=== PATIENT | male | born 1985 | race Caucasian/White ===

== ENCOUNTER 2017-04-14 20:55 | Emergency (ER) | payer SELFPAY ==
[2017-04-14] MEDS ORDERED: ROCEPHIN 1 Gm-D5w 50 ml Bag** 1 G/50 ML IVPB IV STA (21:21)
[2017-04-14] MEDS ORDERED: Zofran 4 MG/2 ML VIAL IV ONE (21:21)
[2017-04-14] MEDS ORDERED: Sodium Chloride 0.9% 1000 ML 1,000 ML ONE ×2 (21:39→22:58)
[2017-04-14] MEDS ORDERED: ROCEPHIN 1 Gm-D5w 50 ml Bag** 1 G/50 ML IVPB IV ONE (21:39)
[2017-04-14] MEDS ORDERED: Zofran 4 MG/2 ML VIAL ONE (21:39)
[2017-04-14 21:42] LABS: Lactic Acid 3.1 (0.4-2.0)
[2017-04-14] MEDS: Sodium Chloride 0.9% 1000 ML 1,000 ML IV SCH ×2 (21:43→22:59)
[2017-04-14 21:52] LABS: Mean Cell Volume 84.5 fl (78-100); Mean Platelet Volume 9.1 fl (6-9.5); Platelet Count 491 K/mm3 (150-450); Red Blood Count 5.63 M/mm3 (4.1-5.6); Red Cell Distribution Width 12.3 % (11.5-14.0); White Blood Count 23.2 K/mm3 (4.0-10.5)
[2017-04-14 21:54] LABS: INR 0.98 (0.8-3.0); PROTIME 11.1 SECONDS (8.83-12.87)
[2017-04-14 21:56] LABS: PTT 27.7 SECONDS (24.1-36.1)
[2017-04-14 22:00] LABS: A-aADO2 34; ARTERIAL BLD GAS O2 SATURATION 95.4 % (95-100); ARTERIAL BLOOD GAS BASE EXCESS 2.6 (-2.0-2.0); ARTERIAL BLOOD GAS FIO2 21 %; ARTERIAL BLOOD GAS PO2 69 mmHg (75-100); ARTERIAL BLOOD GAS pH 7.46 (7.35-7.45)
[2017-04-14] MEDS ORDERED: BABY ASPIRIN 81 MG CHEW PO ONE (22:13)
[2017-04-14] MEDS ORDERED: Nitrostat 0.4 MG (ED) SL ONE ×2 (22:13→22:32)
[2017-04-14 22:14] LABS: ALBUMIN 4.5 g/dL (3.4-5.0); ANION GAP 24.8 MEQ/L (5-15); BILIRUBIN,TOTAL 1.3 mg/dL (0.2-1.0); Carbon Dioxide 25.8 mEq/L (21-32); MAGNESIUM 1.6 mg/dL (1.8-2.4); Potassium 3.7 mEq/L (3.5-5.1)
[2017-04-14 22:19] LABS: ETHYL ALCOHOL < 0.010 % (0.00-0.01); TROPONIN < 0.017 ng/ml (0.000-0.056)
[2017-04-14] MEDS ORDERED: BABY ASPIRIN 81 MG CHEW ONE (22:33)
[2017-04-14 23:03] LABS: BAND 7 % (0.0-2.0); Eosinophil 1 % (0.00-3.0); Platelet Estimate NORMAL (NORMAL); Total Cells Counted 100
[2017-04-15] MEDS ORDERED: Sodium Chloride 0.9% 1000 ML 1,000 ML IV STA ×2 (00:17→03:44)
[2017-04-15] MEDS ORDERED: Magnesium 1 Gm / 100 Ml D5W*** 100 ML IV ONE ×2 (00:18→00:35)
--- NOTE | 2017-04-15 00:30 | ERPHSYRPT ---
- History of Present Illness Time Seen by Provider: 04/14/17 21:12 Source: patient, other (MOTHER OF PT'S CHILDREN) Exam Limitations: no limitations Patient Subjective Stated Complaint: Pt sts used meth 2 days ago, uses every once in awhile. Sts vomiting since this morning with two episodes of diarrhea. Hx of similar in the past when using meth. Famiy concerned because he is a type 1 diabetic. Last FSBS at home 177 mg/dL. Triage Nursing Assessment: Pt alert, oriented, answers questions appropriately. Pt vomiting yellow bile. Pt skin pale, warm to touch, dry. Resps non- labored. Pt holding abd. Physician History: SINCE THIS AM PT HAD VOMITING MULTIPLE TIMES, DIARRHEA X2 WITHOUT BLOOD, CHEST PAIN, SHORTNESS OF AIR, SUBJECTIVE FEVER, CHILLS, DIAPHORESIS AND DECREASED URINARY OUTPUT. PT ADMITS TO USING METHAMPHETAMINE 2 DAYS AGO. Allergies/Adverse Reactions: No Known Drug Allergies Allergy (Verified 10/09/16 22:32) Hx Tetanus, Diphtheria Vaccination/Date Given: Yes Hx Influenza Vaccination/Date Given: No Hx Pneumococcal Vaccination/Date Given: No Immunizations Up to Date: Yes - Review of Systems Constitutional: Fever, Chills Respiratory: Dyspnea Cardiac: Chest Pain Abdominal/Gastrointestinal: Vomiting, Diarrhea Genitourinary Symptoms: Other (DECREASED URINARY OUTPUT) Endocrine: Excessive Sweating All Other Systems: Reviewed and Negative - Past Medical History Pertinent Past Medical History: Yes Neurological History: No Pertinent History ENT History: No Pertinent History Cardiac History: No Pertinent History Respiratory History: No Pertinent History Endocrine Medical History: Diabetes Type I Musculoskeletal History: No Pertinent History GI Medical History: No Pertinent History History: No Pertinent History Psycho-Social History: Depression Male Reproductive Disorders: No Pertinent History - Past Surgical History Past Surgical History: No Neuro Surgical History: No Pertinent History Cardiac: No Pertinent History Respiratory: No Pertinent History Gastrointestinal: No Pertinent History Genitourinary: No Pertinent History Musculoskeletal: No Pertinent History Male Surgical History: No Pertinent History Other Surgical History: pt just shook head yes or no when questions asked - Social History Smoking Status: Never smoker Exposure to second hand smoke: No Drug Use: marijuana, methamphetamines Patient Lives Alone: No - Nursing Vital Signs Nursing Vital Signs: Initial Vital Signs Temperature 97.7 F 04/14/17 21:03 Pulse Rate 113 H 04/14/17 21:03 Respiratory Rate 16 04/14/17 21:03 Blood Pressure 116/38 04/14/17 21:03 O2 Sat by Pulse Oximetry 99 04/14/17 21:03 Pain Scale Pain Intensity 5 - Physical Exam General Appearance: lethargy Eye Exam: PERRL/EOMI Ears, Nose, Throat Exam: TMs normal, dry mucous membranes, pharyngeal erythema Neck Exam: normal inspection Respiratory Exam: lungs clear Cardiovascular Exam: tachycardia Gastrointestinal/Abdomen Exam: soft, other (B.S. MILDLY HYPERACTIVE AND NORMOTONIC) Back Exam: normal inspection Extremity Exam: No pedal edema Neurologic Exam: cooperative, other (LETHARGIC) Skin Exam: warm, dry SpO2 Interpretation: normal SpO2: 97 Oxygen Delivery: Room Air - Course Nursing assessment & vital signs reviewed: Yes EKG Interpreted by Me: RATE ([id number]), Sinus Tach, NORMAL AXIS, NORMAL INTERVALS Ordered Tests: Active Orders 24 hr Category Date Time Status Accucheck STAT Care 04/14/17 21:21 Active Automation Machine Operator STAT Care 04/14/17 21:22 Active EKG-ER Only STAT Care 04/14/17 21:21 Active IV Insertion STAT Care 04/14/17 21:21 Active Oxygen-ED Only NASAL CANNULA 2 lpm Care 04/14/17 21:21 Active Pulse Oximetry (ED) STAT Care 04/14/17 21:21 Active AMYLASE Stat Lab 04/14/17 21:42 Completed ARTERIAL BLOOD GASES Stat Lab 04/14/17 21:54 Completed BLOOD CULTURE Stat Lab 04/14/17 21:42 Received CBC Stat Lab 04/15/17 03:46 Received CBC W DIFF Stat Lab 04/14/17 21:30 Completed CMP Stat Lab 04/14/17 21:42 Completed CMP Stat Lab 04/15/17 02:11 Completed CULTURE, THROAT Stat Lab 04/14/17 21:41 Received ETHYL ALCOHOL Routine Lab 04/14/17 21:30 Completed LIPASE Stat Lab 04/14/17 21:42 Completed Lactic Acid Stat Lab 04/14/17 21:38 Completed Lactic Acid Stat Lab 04/14/17 23:41 Completed MAGNESIUM Stat Lab 04/14/17 21:42 Completed MAGNESIUM Stat Lab 04/15/17 02:11 Completed Manual Differential NC Stat Lab 04/14/17 21:30 Completed [place] Screen Stat Lab 04/14/17 21:30 Completed PROTIME WITH INR Stat Lab 04/14/17 21:30 Completed PTT Stat Lab 04/14/17 21:30 Completed STREP SCREEN-BETA A Stat Lab 04/14/17 21:41 Completed TROPONIN Q3H Lab 04/14/17 21:30 Completed UA W/ MICROSCOPIC Stat Lab 04/15/17 01:06 Completed Medication Summary Generic Name Dose Route Start Last Admin Trade Name Freq PRN Reason Stop Dose Admin Sodium Chloride 1,000 mls @ 999 mls/hr 04/14/17 21:30 04/14/17 22:59 Sodium Chloride 0.9% 1000 Ml IV 04/14/17 23:30 999 mls/hr .Q1H1M XIN Administration Sodium Chloride 1,000 mls @ 999 mls/hr 04/15/17 03:44 04/15/17 03:48 Sodium Chloride 0.9% 1000 Ml IV 04/15/17 04:44 999 mls/hr .Q1H1M STA Administration Discontinued Medications Generic Name Dose Route Start Last Admin Trade Name Kelsie PRN Reason Stop Dose Admin Aspirin 324 mg 04/14/17 22:13 04/14/17 22:33 Baby Aspirin 81 Mg Chew PO 04/14/17 22:14 324 mg STAT ONE Administration Aspirin Confirm 04/14/17 22:33 Baby Aspirin 81 Mg Chew Administered 04/14/17 22:34 Dose 324 mg .ROUTE .STK-MED ONE Ceftriaxone Sodium/Dextrose 1 g in 50 mls @ 100 mls/hr 04/14/17 21:21 21:43 Rocephin 1 Gm-D5w 50 Ml Bag IV 04/14/17 21:50 100 mls/hr STAT STA Administration Ceftriaxone Sodium/Dextrose Confirm 04/14/17 21:39 Rocephin 1 Gm-D5w 50 Ml Bag Administered 04/14/17 21:40 Dose 1 g in 50 mls @ ud IV .STK-MED ONE Magnesium Sulfate/Dextrose 100 mls @ 200 mls/hr 04/15/17 00:18 04/15/17 00:36 Magnesium 1 Gm / 100 Ml D5w IV 04/15/17 00:47 200 mls/hr STAT ONE Administration Sodium Chloride 1,000 mls @ 999 mls/hr 04/15/17 00:17 04/15/17 00:37 Sodium Chloride 0.9% 1000 Ml IV 04/15/17 01:17 999 mls/hr .Q1H1M STA Administration Magnesium Sulfate/Dextrose Confirm 04/15/17 00:35 Magnesium 1 Gm / 100 Ml D5w Administered 04/15/17 00:36 Dose 100 mls @ ud IV .STK-MED ONE Nitroglycerin 0.4 mg 04/14/17 22:13 04/14/17 22:33 Nitrostat 0.4 Mg (Ed) SL 04/14/17 22:14 0.4 mg STAT ONE Administration Nitroglycerin Confirm 04/14/17 22:32 Nitrostat 0.4 Mg (Ed) Administered 04/14/17 22:33 Dose 0.4 mg SL .STK-MED ONE Ondansetron HCl 4 mg 04/14/17 21:21 04/14/17 21:43 Zofran 4 Mg/2 Ml Vial IV 04/14/17 21:22 4 mg STAT ONE Administration Ondansetron HCl Confirm 04/14/17 21:39 Zofran 4 Mg/2 Ml Vial Administered 04/14/17 21:40 Dose 4 mg .ROUTE .STK-MED ONE Ondansetron HCl 4 mg 04/15/17 03:44 04/15/17 03:48 Zofran 4 Mg/2 Ml Vial IV 04/15/17 03:45 4 mg STAT ONE Administration Ondansetron HCl Confirm 04/15/17 03:46 Zofran 4 Mg/2 Ml Vial Administered 04/15/17 03:47 Dose 4 mg .ROUTE .STK-MED ONE Promethazine HCl 12.5 mg 04/15/17 00:53 04/15/17 00:59 Phenergan 25 Mg Inj IV 04/15/17 00:54 12.5 mg STAT ONE Administration Promethazine HCl Confirm 04/15/17 00:57 Phenergan 25 Mg Inj Administered 04/15/17 00:58 Dose 25 mg .ROUTE .STK-MED ONE Lab/Rad Data: Laboratory Result Diagrams 04/14/17 21:30 04/15/17 02:11 Laboratory Results 04/15/17 04/15/17 04/15/17 Range/Units 02:11 01:06 00:32 WBC (4.0-10.5) K/mm3 RBC (4.1-5.6) M/mm3 Hgb (12.5-18.0) gm/dl Hct (42-50) % MCV (78-100) fl MCH (26-32) pg MCHC (32-36) g/dl RDW (11.5-14.0) % Plt Count (150-450) K/mm3 MPV (6-9.5) fl Segmented Neutrophils (36.-66.) % Band Neutrophils (0.0-2.0) % Lymphocytes (Manual) (24-44) % Monocytes (Manual) (0.0-12.0) % Eosinophils (Manual) (0.00-3.0) % Differential Comment Platelet Estimate (NORMAL) INR (0.8-3.0) APTT (24.1-36.1) SECONDS Puncture Site pCO2 (35-45) mmHg pO2 (75-100) mmHg Base Excess (-2.0-2.0) O2 Saturation (94-100) g/dF ABG pH (7.35-7.45) ABG HCO3 (22-28) ABG O2 Sat (Measured) (95-100) % Arnaldo Test A-a Gradient a/A Ratio Hemoglobin Carboxyhemoglobin (0.0-6.9) % THgb Methemoglobin (1.4-1.5) % Temperature C POC O2 Flow Rate % Sodium 140 (136-145) mEq/L Potassium 3.6 (3.5-5.1) mEq/L Chloride 99 (98-107) mEq/L Carbon Dioxide 29.3 (21-32) mEq/L Anion Gap 15.1 H (5-15) MEQ/L BUN 22 H (9-20) mg/dL Creatinine 1.37 H (0.55-1.30) mg/dl Estimated GFR > 60 ML/MIN Glucose 179 H (70-110) MG/DL Hemoglobin A1c (4.5-6.2) Lactic Acid 1.9 (0.4-2.0) Calcium 8.3 L (8.5-10.1) mg/dL Magnesium 1.8 (1.8-2.4) mg/dL Total Bilirubin 0.70 (0.2-1.0) mg/dL AST 26 (15-37) U/L ALT 28 (12-78) U/L Alkaline Phosphatase 105 (46-116) U/L Troponin I (0.000-0.056) ng/ml Serum Total Protein 7.1 (6.4-8.2) gm/dL Albumin 3.5 (3.4-5.0) g/dL Amylase (25-115) U/L Lipase (73-393) U/L Ur Collection Type VOID Urine Color DARK YELLOW (YELLOW) Urine Appearance CLEAR (CLEAR) Urine pH 5.0 (5-6) Ur Specific [place] 1.025 (1.005-1.025) Urine Protein 100 (Negative) Urine Ketones LARGE (NEGATIVE) Urine Blood 250 (0-5) Tomas/ul Urine Nitrite NEGATIVE (NEGATIVE) Urine Bilirubin NEGATIVE (NEGATIVE) Urine Urobilinogen NORMAL (0-1) mg/dL Ur Leukocyte Esterase NEGATIVE (NEGATIVE) Urine Microscopic RBC 5-10 (0-2) /HPF Urine Microscopic WBC 0-2 (0-5) /HPF Ur Epithelial Cells RARE (FEW) /HPF Urine Bacteria FEW (NEGATIVE) /HPF Hyaline Casts 2-5 (0-2) /LPF Urine Mucus MANY (NEGATIVE) /HPF Urine Glucose 250 (NEGATIVE) mg/dL Urine Opiates Level (NEGATIVE) Ur Methadone (NEGATIVE) Urine Barbiturates (NEGATIVE) Ur Phencyclidine (PCP) (NEGATIVE) Urine Amphetamine (NEGATIVE) U Benzodiazepine Level (NEGATIVE) Urine Cocaine (NEGATIVE) Urine Marijuana (THC) (NEGATIVE) Ethyl Alcohol (0.00-0.01) % Monoscreen (Negative) Influenza Type A Ag (NEGATIVE) Influenza Type B Ag (NEGATIVE) RSV (PCR) (Negative) Streptococcus Screen (Negative) Specimen Received 04/15/17 0100 04/14/17 04/14/17 04/14/17 Range/Units 21:54 21:42 21:41 WBC (4.0-10.5) K/mm3 RBC (4.1-5.6) M/mm3 Hgb (12.5-18.0) gm/dl Hct (42-50) % MCV (78-100) fl MCH (26-32) pg MCHC (32-36) g/dl RDW (11.5-14.0) % Plt Count (150-450) K/mm3 MPV (6-9.5) fl Segmented Neutrophils (36.-66.) % Band Neutrophils (0.0-2.0) % Lymphocytes (Manual) (24-44) % Monocytes (Manual) (0.0-12.0) % Eosinophils (Manual) (0.00-3.0) % Differential Comment Platelet Estimate (NORMAL) INR (0.8-3.0) APTT (24.1-36.1) SECONDS Puncture Site RIGHT BRACHIAL pCO2 37 (35-45) mmHg pO2 69 L (75-100) mmHg Base Excess 2.6 H (-2.0-2.0) O2 Saturation 93.9 L (94-100) g/dF ABG pH 7.46 H (7.35-7.45) ABG HCO3 26.3 (22-28) ABG O2 Sat (Measured) 95.4 (95-100) % Arnaldo Test NOT APPLICABLE A-a Gradient 34 a/A Ratio 0.67 Hemoglobin 16.3 Carboxyhemoglobin 1.1 (0.0-6.9) % THgb Methemoglobin 0.5 L (1.4-1.5) % Temperature 37.0 C POC O2 Flow Rate 21 % Sodium 137 (136-145) mEq/L Potassium 3.9 3.7 (3.5-5.1) mEq/L Chloride 90 L (98-107) mEq/L Carbon Dioxide 25.8 (21-32) mEq/L Anion Gap 24.8 H (5-15) MEQ/L BUN 24 H (9-20) mg/dL Creatinine 1.72 H (0.55-1.30) mg/dl Estimated GFR 50 ML/MIN Glucose 200 H (70-110) MG/DL Hemoglobin A1c (4.5-6.2) Lactic Acid (0.4-2.0) Calcium 10.1 (8.5-10.1) mg/dL Magnesium 1.6 L (1.8-2.4) mg/dL Total Bilirubin 1.30 H (0.2-1.0) mg/dL AST 33 (15-37) U/L ALT 38 (12-78) U/L Alkaline Phosphatase 141 H (46-116) U/L Troponin I (0.000-0.056) ng/ml Serum Total Protein 9.0 H (6.4-8.2) gm/dL Albumin 4.5 (3.4-5.0) g/dL Amylase 65 (25-115) U/L Lipase 42 L (73-393) U/L Ur Collection Type Urine Color (YELLOW) Urine Appearance (CLEAR) Urine pH (5-6) Ur Specific [place] (1.005-1.025) Urine Protein (Negative) Urine Ketones (NEGATIVE) Urine Blood (0-5) Tomas/ul Urine Nitrite (NEGATIVE) Urine Bilirubin (NEGATIVE) Urine Urobilinogen (0-1) mg/dL Ur Leukocyte Esterase (NEGATIVE) Urine Microscopic RBC (0-2) /HPF Urine Microscopic WBC (0-5) /HPF Ur Epithelial Cells (FEW) /HPF Urine Bacteria (NEGATIVE) /HPF Hyaline Casts (0-2) /LPF Urine Mucus (NEGATIVE) /HPF Urine Glucose (NEGATIVE) mg/dL Urine Opiates Level (NEGATIVE) Ur Methadone (NEGATIVE) Urine Barbiturates (NEGATIVE) Ur Phencyclidine (PCP) (NEGATIVE) Urine Amphetamine (NEGATIVE) U Benzodiazepine Level (NEGATIVE) Urine Cocaine (NEGATIVE) Urine Marijuana (THC) (NEGATIVE) Ethyl Alcohol (0.00-0.01) % Monoscreen (Negative) Influenza Type A Ag NEGATIVE (NEGATIVE) Influenza Type B Ag NEGATIVE (NEGATIVE) RSV (PCR) NEGATIVE (Negative) Streptococcus Screen (Negative) Specimen Received 04/14/17 04/14/17 04/14/17 Range/Units 21:41 21:38 21:30 WBC (4.0-10.5) K/mm3 RBC (4.1-5.6) M/mm3 Hgb (12.5-18.0) gm/dl Hct (42-50) % MCV (78-100) fl MCH (26-32) pg MCHC (32-36) g/dl RDW (11.5-14.0) % Plt Count (150-450) K/mm3 MPV (6-9.5) fl Segmented Neutrophils (36.-66.) % Band Neutrophils (0.0-2.0) % Lymphocytes (Manual) (24-44) % Monocytes (Manual) (0.0-12.0) % Eosinophils (Manual) (0.00-3.0) % Differential Comment Platelet Estimate (NORMAL) INR (0.8-3.0) APTT (24.1-36.1) SECONDS Puncture Site pCO2 (35-45) mmHg pO2 (75-100) mmHg Base Excess (-2.0-2.0) O2 Saturation (94-100) g/dF ABG pH (7.35-7.45) ABG HCO3 (22-28) ABG O2 Sat (Measured) (95-100) % Arnaldo Test A-a Gradient a/A Ratio Hemoglobin Carboxyhemoglobin (0.0-6.9) % THgb Methemoglobin (1.4-1.5) % Temperature C POC O2 Flow Rate % Sodium (136-145) mEq/L Potassium (3.5-5.1) mEq/L Chloride (98-107) mEq/L Carbon Dioxide (21-32) mEq/L Anion Gap (5-15) MEQ/L BUN (9-20) mg/dL Creatinine (0.55-1.30) mg/dl Estimated GFR ML/MIN Glucose (70-110) MG/DL Hemoglobin A1c 9.8 H (4.5-6.2) Lactic Acid 3.1 H (0.4-2.0) Calcium (8.5-10.1) mg/dL Magnesium (1.8-2.4) mg/dL Total Bilirubin (0.2-1.0) mg/dL AST (15-37) U/L ALT (12-78) U/L Alkaline Phosphatase (46-116) U/L Troponin I (0.000-0.056) ng/ml Serum Total Protein (6.4-8.2) gm/dL Albumin (3.4-5.0) g/dL Amylase (25-115) U/L Lipase (73-393) U/L Ur Collection Type Urine Color (YELLOW) Urine Appearance (CLEAR) Urine pH (5-6) Ur Specific [place] (1.005-1.025) Urine Protein (Negative) Urine Ketones (NEGATIVE) Urine Blood (0-5) Tomas/ul Urine Nitrite (NEGATIVE) Urine Bilirubin (NEGATIVE) Urine Urobilinogen (0-1) mg/dL Ur Leukocyte Esterase (NEGATIVE) Urine Microscopic RBC (0-2) /HPF Urine Microscopic WBC (0-5) /HPF Ur Epithelial Cells (FEW) /HPF Urine Bacteria (NEGATIVE) /HPF Hyaline Casts (0-2) /LPF Urine Mucus (NEGATIVE) /HPF Urine Glucose (NEGATIVE) mg/dL Urine Opiates Level (NEGATIVE) Ur Methadone (NEGATIVE) Urine Barbiturates (NEGATIVE) Ur Phencyclidine (PCP) (NEGATIVE) Urine Amphetamine (NEGATIVE) U Benzodiazepine Level (NEGATIVE) Urine Cocaine (NEGATIVE) Urine Marijuana (THC) (NEGATIVE) Ethyl Alcohol (0.00-0.01) % Monoscreen (Negative) Influenza Type A Ag (NEGATIVE) Influenza Type B Ag (NEGATIVE) RSV (PCR) (Negative) Streptococcus Screen NEGATIVE (Negative) Specimen Received 04/14/17 04/14/17 04/14/17 Range/Units 21:30 21:30 21:30 WBC (4.0-10.5) K/mm3 RBC (4.1-5.6) M/mm3 Hgb (12.5-18.0) gm/dl Hct (42-50) % MCV (78-100) fl MCH (26-32) pg MCHC (32-36) g/dl RDW (11.5-14.0) % Plt Count (150-450) K/mm3 MPV (6-9.5) fl Segmented Neutrophils (36.-66.) % Band Neutrophils (0.0-2.0) % Lymphocytes (Manual) (24-44) % Monocytes (Manual) (0.0-12.0) % Eosinophils (Manual) (0.00-3.0) % Differential Comment Platelet Estimate (NORMAL) INR 0.98 (0.8-3.0) APTT 27.7 (24.1-36.1) SECONDS Puncture Site pCO2 (35-45) mmHg pO2 (75-100) mmHg Base Excess (-2.0-2.0) O2 Saturation (94-100) g/dF ABG pH (7.35-7.45) ABG HCO3 (22-28) ABG O2 Sat (Measured) (95-100) % Arnaldo Test A-a Gradient a/A Ratio Hemoglobin Carboxyhemoglobin (0.0-6.9) % THgb Methemoglobin (1.4-1.5) % Temperature C POC O2 Flow Rate % Sodium (136-145) mEq/L Potassium (3.5-5.1) mEq/L Chloride (98-107) mEq/L Carbon Dioxide (21-32) mEq/L Anion Gap (5-15) MEQ/L BUN (9-20) mg/dL Creatinine (0.55-1.30) mg/dl Estimated GFR ML/MIN Glucose (70-110) MG/DL Hemoglobin A1c (4.5-6.2) Lactic Acid (0.4-2.0) Calcium (8.5-10.1) mg/dL Magnesium (1.8-2.4) mg/dL Total Bilirubin (0.2-1.0) mg/dL AST (15-37) U/L ALT (12-78) U/L Alkaline Phosphatase (46-116) U/L Troponin I < 0.017 (0.000-0.056) ng/ml Serum Total Protein (6.4-8.2) gm/dL Albumin (3.4-5.0) g/dL Amylase (25-115) U/L Lipase (73-393) U/L Ur Collection Type Urine Color (YELLOW) Urine Appearance (CLEAR) Urine pH (5-6) Ur Specific [place] (1.005-1.025) Urine Protein (Negative) Urine Ketones (NEGATIVE) Urine Blood (0-5) Tomas/ul Urine Nitrite (NEGATIVE) Urine Bilirubin (NEGATIVE) Urine Urobilinogen (0-1) mg/dL Ur Leukocyte Esterase (NEGATIVE) Urine Microscopic RBC (0-2) /HPF Urine Microscopic WBC (0-5) /HPF Ur Epithelial Cells (FEW) /HPF Urine Bacteria (NEGATIVE) /HPF Hyaline Casts (0-2) /LPF Urine Mucus (NEGATIVE) /HPF Urine Glucose (NEGATIVE) mg/dL Urine Opiates Level (NEGATIVE) Ur Methadone (NEGATIVE) Urine Barbiturates (NEGATIVE) Ur Phencyclidine (PCP) (NEGATIVE) Urine Amphetamine (NEGATIVE) U Benzodiazepine Level (NEGATIVE) Urine Cocaine (NEGATIVE) Urine Marijuana (THC) (NEGATIVE) Ethyl Alcohol < 0.010 (0.00-0.01) % Monoscreen NEGATIVE (Negative) Influenza Type A Ag (NEGATIVE) Influenza Type B Ag (NEGATIVE) RSV (PCR) (Negative) Streptococcus Screen (Negative) Specimen Received 04/14/17 04/14/17 Range/Units 21:30 01:06 WBC 23.2 H (4.0-10.5) K/mm3 RBC 5.63 H (4.1-5.6) M/mm3 Hgb 16.9 (12.5-18.0) gm/dl Hct 47.6 (42-50) % MCV 84.5 (78-100) fl MCH 30.0 (26-32) pg MCHC 35.5 (32-36) g/dl RDW 12.3 (11.5-14.0) % Plt Count 491 H (150-450) K/mm3 MPV 9.1 (6-9.5) fl Segmented Neutrophils 79 H (36.-66.) % Band Neutrophils 7 H (0.0-2.0) % Lymphocytes (Manual) 7 L (24-44) % Monocytes (Manual) 6 (0.0-12.0) % Eosinophils (Manual) 1 (0.00-3.0) % Differential Comment NORMAL Platelet Estimate NORMAL (NORMAL) INR (0.8-3.0) APTT (24.1-36.1) SECONDS Puncture Site pCO2 (35-45) mmHg pO2 (75-100) mmHg Base Excess (-2.0-2.0) O2 Saturation (94-100) g/dF ABG pH (7.35-7.45) ABG HCO3 (22-28) ABG O2 Sat (Measured) (95-100) % Arnaldo Test A-a Gradient a/A Ratio Hemoglobin Carboxyhemoglobin (0.0-6.9) % THgb Methemoglobin (1.4-1.5) % Temperature C POC O2 Flow Rate % Sodium (136-145) mEq/L Potassium (3.5-5.1) mEq/L Chloride (98-107) mEq/L Carbon Dioxide (21-32) mEq/L Anion Gap (5-15) MEQ/L BUN (9-20) mg/dL Creatinine (0.55-1.30) mg/dl Estimated GFR ML/MIN Glucose (70-110) MG/DL Hemoglobin A1c (4.5-6.2) Lactic Acid (0.4-2.0) Calcium (8.5-10.1) mg/dL Magnesium (1.8-2.4) mg/dL Total Bilirubin (0.2-1.0) mg/dL AST (15-37) U/L ALT (12-78) U/L Alkaline Phosphatase (46-116) U/L Troponin I (0.000-0.056) ng/ml Serum Total Protein (6.4-8.2) gm/dL Albumin (3.4-5.0) g/dL Amylase (25-115) U/L Lipase (73-393) U/L Ur Collection Type Urine Color (YELLOW) Urine Appearance (CLEAR) Urine pH (5-6) Ur Specific [place] (1.005-1.025) Urine Protein (Negative) Urine Ketones (NEGATIVE) Urine Blood (0-5) Tomas/ul Urine Nitrite (NEGATIVE) Urine Bilirubin (NEGATIVE) Urine Urobilinogen (0-1) mg/dL Ur Leukocyte Esterase (NEGATIVE) Urine Microscopic RBC (0-2) /HPF Urine Microscopic WBC (0-5) /HPF Ur Epithelial Cells (FEW) /HPF Urine Bacteria (NEGATIVE) /HPF Hyaline Casts (0-2) /LPF Urine Mucus (NEGATIVE) /HPF Urine Glucose (NEGATIVE) mg/dL Urine Opiates Level NEG. (NEGATIVE) Ur Methadone NEG. (NEGATIVE) Urine Barbiturates NEG. (NEGATIVE) Ur Phencyclidine (PCP) NEG. (NEGATIVE) Urine Amphetamine POS. (NEGATIVE) U Benzodiazepine Level NEG. (NEGATIVE) Urine Cocaine NEG. (NEGATIVE) Urine Marijuana (THC) POS. (NEGATIVE) Ethyl Alcohol (0.00-0.01) % Monoscreen (Negative) Influenza Type A Ag (NEGATIVE) Influenza Type B Ag (NEGATIVE) RSV (PCR) (Negative) Streptococcus Screen (Negative) Specimen Received - Departure Time of Disposition: 04:02 Departure Disposition: Home Clinical Impression: VOMITING, DIARRHEA, TACHYCARDIA, HYPOMAGNESEMIA - CORRECTED IN ER, DEHYDRATION , DM, DEPRESSION, METHAMPHETAMINE USE, MARIJUANA USE Condition: Stable Critical Care Time: No Referrals: VALENTINA ESPINO [Primary Care Provider] - Instructions: Diarrhea and Traveler's Diarrhea -- Adult, Vomiting -- Adult Additional Instructions: FOLLOW UP WITH PRIVATE DOCTOR TOMORROW. Prescriptions: Ondansetron [Zofran Odt] 4 mg PO Q4H PRN PRN #14 tab.rapdis PRN Reason: Nausea/Vomiting
[2017-04-15] MEDS ORDERED: Sodium Chloride 0.9% 1000 ML 1,000 ML ONE ×2 (00:35→03:46)
[2017-04-15] MEDS ORDERED: Phenergan 25 MG INJ IV ONE (00:53)
[2017-04-15] MEDS ORDERED: Phenergan 25 MG INJ ONE (00:57)
[2017-04-15 01:24] LABS: Bacteria FEW /HPF (NEGATIVE); Bilirubin NEGATIVE (NEGATIVE); Blood 250 Ery/ul (0-5); COMPLETE URINE MICROSCOPIC? YES; Collection Type VOID; Epithelial Cells RARE /HPF (FEW); Glucose 250 mg/dL (NEGATIVE); Leukocyte Esterase NEGATIVE (NEGATIVE); Mucus MANY /HPF (NEGATIVE); WBC 0-2 /HPF (0-5)
[2017-04-15 02:34] LABS: ALBUMIN 3.5 g/dL (3.4-5.0); ALKALINE PHOSPHATASE 105 U/L (46-116); ANION GAP 15.1 MEQ/L (5-15); BLOOD UREA NITROGEN 22 mg/dL (9-20); CHLORIDE 99 mEq/L (98-107); Carbon Dioxide 29.3 mEq/L (21-32); Glucose 179 MG/DL (70-110); MAGNESIUM 1.8 mg/dL (1.8-2.4); Potassium 3.6 mEq/L (3.5-5.1); SGOT/AST 26 U/L (15-37); SGPT/ALT 28 U/L (12-78); SODIUM 140 mEq/L (136-145); Total Protein 7.1 gm/dL (6.4-8.2)
[2017-04-15] MEDS ORDERED: Zofran 4 MG/2 ML VIAL IV ONE (03:44)
[2017-04-15] MEDS ORDERED: Zofran 4 MG/2 ML VIAL ONE (03:46)
[2017-04-15 03:55] LABS: Mean Cell Volume 85.2 fl (78-100); Mean Corpuscular Hemoglobin 29.6 pg (26-32); Mean Platelet Volume 8.8 fl (6-9.5); Platelet Count 379 K/mm3 (150-450); Red Blood Count 4.66 M/mm3 (4.1-5.6); Red Cell Distribution Width 12.2 % (11.5-14.0); White Blood Count 19.5 K/mm3 (4.0-10.5)
[2017-04-15 05:33] VITALS: BP 118/65; PULSE 98; O2SAT 98
== END 2017-04-15 05:34 | disposition home or self-care (01) ==
LOC: ED 20:55
DX: R11.10 Vomiting, unspecified (principal); R19.7 Diarrhea, unspecified; R00.0 Tachycardia, unspecified; E83.42 Hypomagnesemia; E86.0 Dehydration; E11.9 Type 2 diabetes mellitus without complications; F32.9 Major depressive disorder, single episode, unspecified; F11.90 Opioid use, unspecified, uncomplicated; F12.90 Cannabis use, unspecified, uncomplicated
CPT/HCPCS: 36000; 36415; 36600; 80053; 80307; 81000; 82150; 82375; 82803; 82962; 83036; 83605; 83690; 83735; 84484; 85025; 85027; 85610; 85730; 86308; 87040; 87070; 87430; 87631; 93005; 93041; 96360; 96361; 96365; 96374; 96375; 96376; 99284; G0481; J0696; J2405; J2550; J3475; A9270-GY

== ENCOUNTER 2017-04-15 21:19 | Observation (INO) | payer SELFPAY ==
[2017-04-15] MEDS ORDERED: Sodium Chloride 0.9% 1000 ML 1,000 ML IV STA (21:58)
[2017-04-15] MEDS ORDERED: Phenergan 25 MG INJ IV ONE (21:58)
[2017-04-15] MEDS ORDERED: Phenergan 25 MG INJ ONE (22:03)
[2017-04-15] MEDS ORDERED: Sodium Chloride 0.9% 1000 ML 1,000 ML ONE (22:03)
--- NOTE | 2017-04-15 22:06 | ERPHSYRPT ---
- History of Present Illness Time Seen by Provider: 04/15/17 21:54 Historian: patient Exam Limitations: no limitations Patient Subjective Stated Complaint: Pt was seen this ER last night. Pt seen tonight for same - vomiting, unable to keep anything down. Pt sts vomited 12+ times today. No diarrhea. Unable to get prescription filled due to no insurance. Pt has been trying to drink fluids but still vomiting. Triage Nursing Assessment: Pt alert, oriented, answers all questions appropriately. Pt ambulatory to tx room with assist per mother. Pt in position on bed. Skin p/w/d, resps non-labored. Physician History: PT STATES HE VOMITED TODAY AND IS THIRSTY; DENIES CHEST PAIN, SHORTNESS OF AIR, ABDOMINAL PAIN. PT CAME TO [facility] ER YESTERDAY BECAUSE OF VOMITING AND 2 EPISODES OF DIARRHEA AND HAD DISCHARGE DIAGNOSIS OF VOMITING, DIARRHEA, TACHYCARDIA, HYPOMAGNESEMIA-CORRECTED IN ER, DEHYDRATION, DM, DEPRESSION, METHAMPHETAMINE USE , MARIJUANA USE. PT USED METHAMPHETAMINE 3 DAYS AGO. Allergies/Adverse Reactions: No Known Drug Allergies Allergy (Verified 04/15/17 21:41) Hx Tetanus, Diphtheria Vaccination/Date Given: Yes Hx Influenza Vaccination/Date Given: No Hx Pneumococcal Vaccination/Date Given: No Immunizations Up to Date: Yes - Review of Systems Constitutional: Other (THIRST) Abdominal/Gastrointestinal: Vomiting, Diarrhea Psychological: Drug Abuse All Other Systems: Reviewed and Negative - Past Medical History Pertinent Past Medical History: Yes Neurological History: No Pertinent History ENT History: No Pertinent History Cardiac History: No Pertinent History Respiratory History: No Pertinent History Endocrine Medical History: Diabetes Type I Musculoskeletal History: No Pertinent History GI Medical History: No Pertinent History History: No Pertinent History Psycho-Social History: Depression Male Reproductive Disorders: No Pertinent History - Past Surgical History Past Surgical History: No Neuro Surgical History: No Pertinent History Cardiac: No Pertinent History Respiratory: No Pertinent History Gastrointestinal: No Pertinent History Genitourinary: No Pertinent History Musculoskeletal: No Pertinent History Male Surgical History: No Pertinent History Other Surgical History: pt just shook head yes or no when questions asked - Social History Smoking Status: Never smoker Exposure to second hand smoke: No Drug Use: marijuana, methamphetamines Patient Lives Alone: No - Nursing Vital Signs Nursing Vital Signs: Initial Vital Signs Temperature 98.7 F 04/15/17 21:35 Pulse Rate 100 H 04/15/17 21:35 Respiratory Rate 16 04/15/17 21:35 Blood Pressure 128/78 04/15/17 21:35 O2 Sat by Pulse Oximetry 97 04/15/17 21:35 Pain Scale Pain Intensity 7 - Physical Exam General Appearance: other (MILDLY LETHARGIC) Eye Exam: PERRL/EOMI Ears, Nose, Throat Exam: dry mucous membranes, pharyngeal erythema Neck Exam: normal inspection Respiratory Exam: lungs clear Cardiovascular Exam: normal heart sounds Gastrointestinal/Abdomen Exam: soft, other (B.S. MILDLY HYPERACTIVE AND NORMOTONIC) Back Exam: normal inspection Extremity Exam: No pedal edema Neurologic Exam: cooperative, other (MILDLY LETHARGIC) Skin Exam: warm, dry SpO2 Interpretation: normal SpO2: 97 Oxygen Delivery: Room Air - Course Nursing assessment & vital signs reviewed: Yes - Radiology Exams Chest X-ray Interpretation: Interpreted by me, No Pneumonia Ordered Tests: Active Orders 24 hr Category Date Time Status IV Insertion STAT Care 04/15/17 21:58 Active CHEST 2 VIEWS (PA AND LAT) Stat Exams 04/15/17 Taken AMYLASE Stat Lab 04/15/17 22:10 Completed ARTERIAL BLOOD GASES Urgent Lab 04/15/17 23:03 Completed BLOOD CULTURE Stat Lab 04/15/17 22:10 Received CBC W DIFF Stat Lab 04/15/17 22:10 Completed CMP Stat Lab 04/15/17 22:10 Completed LIPASE Stat Lab 04/15/17 22:10 Completed Lactic Acid Stat Lab 04/15/17 22:10 Results MAG [MAGNESIUM] Stat Lab 04/15/17 22:10 Completed UA W/ MICROSCOPIC Stat Lab 04/15/17 23:15 Completed Urine Triage Profile Stat Lab 04/15/17 23:15 Completed Medication Summary Discontinued Medications Generic Name Dose Route Start Last Admin Trade Name Freq PRN Reason Stop Dose Admin Sodium Chloride 1,000 mls @ 999 mls/hr 04/15/17 21:58 04/15/17 22:06 Sodium Chloride 0.9% 1000 Ml IV 04/15/17 22:58 999 mls/hr .Q1H1M STA Administration Sodium Chloride Confirm 04/15/17 22:03 Sodium Chloride 0.9% 1000 Ml Administered 04/15/17 22:04 Dose 1,000 mls @ ud .ROUTE .STK-MED ONE Ampicillin Sodium/Sulbactam Sodium 3 gm in 100 mls @ 200 mls/hr 04/15/17 22: 52 04/15/17 23:12 Unasyn 3gm / Nacl 100ml IV 04/15/17 23:21 200 mls/hr STAT STA Administration Ampicillin Sodium/Sulbactam Sodium Confirm 04/15/17 23:10 Unasyn 3gm / Nacl 100ml Administered 04/15/17 23:11 Dose 3 gm in 100 mls @ ud .ROUTE .STK-MED ONE Insulin Human Regular 8 unit 04/15/17 22:53 04/15/17 23:12 Novolin R IV 04/15/17 22:54 8 unit STAT ONE Administration Insulin Human Regular Confirm 04/15/17 23:09 Novolin R Administered 04/15/17 23:10 Dose 8 unit .ROUTE .STK-MED ONE Promethazine HCl 12.5 mg 04/15/17 21:58 04/15/17 22:07 Phenergan 25 Mg Inj IV 04/15/17 21:59 12.5 mg STAT ONE Administration Promethazine HCl Confirm 04/15/17 22:03 Phenergan 25 Mg Inj Administered 04/15/17 22:04 Dose 25 mg .ROUTE .STK-MED ONE Lab/Rad Data: Laboratory Result Diagrams 04/15/17 22:10 04/15/17 22:10 Laboratory Results 04/15/17 04/15/17 04/15/17 Range/Units 23:15 23:15 23:03 WBC (4.0-10.5) K/mm3 RBC (4.1-5.6) M/mm3 Hgb (12.5-18.0) gm/dl Hct (42-50) % MCV (78-100) fl MCH (26-32) pg MCHC (32-36) g/dl RDW (11.5-14.0) % Plt Count (150-450) K/mm3 MPV (6-9.5) fl Gran % (36.0-66.0) % Lymphocytes % (24.0-44.0) % Monocytes % (0.0-12.0) % Eosinophils % (0.00-5.0) % Basophils % (0.0-0.4) % Basophils # (0-0.4) Puncture Site LEFT RADIAL pCO2 36 (35-45) mmHg pO2 88 (75-100) mmHg Base Excess -4.5 L (-2.0-2.0) O2 Saturation 95.7 (94-100) g/dF ABG pH 7.36 (7.35-7.45) ABG HCO3 20.3 L (22-28) ABG O2 Sat (Measured) 97.4 (95-100) % Arnaldo Test YES A-a Gradient 17 a/A Ratio 0.84 Hemoglobin 14.3 Carboxyhemoglobin 1.2 (0.0-6.9) % THgb Methemoglobin 0.5 L (1.4-1.5) % Temperature 37.0 C POC O2 Flow Rate 21 % Sodium (136-145) mEq/L Potassium 4.1 (3.5-5.1) mEq/L Chloride (98-107) mEq/L Carbon Dioxide (21-32) mEq/L Anion Gap (5-15) MEQ/L BUN (9-20) mg/dL Creatinine (0.55-1.30) mg/dl Estimated GFR ML/MIN Glucose (70-110) MG/DL Lactic Acid (0.4-2.0) Calcium (8.5-10.1) mg/dL Magnesium (1.8-2.4) mg/dL Total Bilirubin (0.2-1.0) mg/dL AST (15-37) U/L ALT (12-78) U/L Alkaline Phosphatase (46-116) U/L Serum Total Protein (6.4-8.2) gm/dL Albumin (3.4-5.0) g/dL Amylase (25-115) U/L Lipase (73-393) U/L Ur Collection Type CLEAN CATCH Urine Color YELLOW (YELLOW) Urine Appearance CLEAR (CLEAR) Urine pH 5.0 (5-6) Ur Specific [place] 1.025 (1.005-1.025) Urine Protein NEGATIVE (Negative) Urine Ketones LARGE (NEGATIVE) Urine Blood 50 (0-5) Tomas/ul Urine Nitrite NEGATIVE (NEGATIVE) Urine Bilirubin NEGATIVE (NEGATIVE) Urine Urobilinogen NORMAL (0-1) mg/dL Ur Leukocyte Esterase NEGATIVE (NEGATIVE) Urine Microscopic RBC 0-2 (0-2) /HPF Urine Microscopic WBC 0-2 (0-5) /HPF Ur Epithelial Cells RARE (FEW) /HPF Urine Bacteria RARE (NEGATIVE) /HPF Urine Glucose 1000 (NEGATIVE) mg/dL Urine Opiates Level NEG. (NEGATIVE) Ur Methadone NEG. (NEGATIVE) Urine Barbiturates NEG. (NEGATIVE) Ur Phencyclidine (PCP) NEG. (NEGATIVE) Urine Amphetamine NEG. (NEGATIVE) U Benzodiazepine Level NEG. (NEGATIVE) Urine Cocaine NEG. (NEGATIVE) Urine Marijuana (THC) NEG. (NEGATIVE) Specimen Received 04/15/17 [id number] 04/15/17 04/15/17 04/15/17 Range/Units 22:10 22:10 22:10 WBC (4.0-10.5) K/mm3 RBC (4.1-5.6) M/mm3 Hgb (12.5-18.0) gm/dl Hct (42-50) % MCV (78-100) fl MCH (26-32) pg MCHC (32-36) g/dl RDW (11.5-14.0) % Plt Count (150-450) K/mm3 MPV (6-9.5) fl Gran % (36.0-66.0) % Lymphocytes % (24.0-44.0) % Monocytes % (0.0-12.0) % Eosinophils % (0.00-5.0) % Basophils % (0.0-0.4) % Basophils # (0-0.4) Puncture Site pCO2 (35-45) mmHg pO2 (75-100) mmHg Base Excess (-2.0-2.0) O2 Saturation (94-100) g/dF ABG pH (7.35-7.45) ABG HCO3 (22-28) ABG O2 Sat (Measured) (95-100) % Arnaldo Test A-a Gradient a/A Ratio Hemoglobin Carboxyhemoglobin (0.0-6.9) % THgb Methemoglobin (1.4-1.5) % Temperature C POC O2 Flow Rate % Sodium 137 (136-145) mEq/L Potassium 4.0 (3.5-5.1) mEq/L Chloride 95 L (98-107) mEq/L Carbon Dioxide 21.0 (21-32) mEq/L Anion Gap 25.0 H (5-15) MEQ/L BUN 25 H (9-20) mg/dL Creatinine 1.89 H (0.55-1.30) mg/dl Estimated GFR 44 ML/MIN Glucose 434 H (70-110) MG/DL Lactic Acid 2.8 H (0.4-2.0) Calcium 9.5 (8.5-10.1) mg/dL Magnesium 2.3 (1.8-2.4) mg/dL Total Bilirubin 1.10 H (0.2-1.0) mg/dL AST 19 (15-37) U/L ALT 31 (12-78) U/L Alkaline Phosphatase 150 H (46-116) U/L Serum Total Protein 8.5 H (6.4-8.2) gm/dL Albumin 4.1 (3.4-5.0) g/dL Amylase 41 (25-115) U/L Lipase 52 L (73-393) U/L Ur Collection Type Urine Color (YELLOW) Urine Appearance (CLEAR) Urine pH (5-6) Ur Specific [place] (1.005-1.025) Urine Protein (Negative) Urine Ketones (NEGATIVE) Urine Blood (0-5) Tomas/ul Urine Nitrite (NEGATIVE) Urine Bilirubin (NEGATIVE) Urine Urobilinogen (0-1) mg/dL Ur Leukocyte Esterase (NEGATIVE) Urine Microscopic RBC (0-2) /HPF Urine Microscopic WBC (0-5) /HPF Ur Epithelial Cells (FEW) /HPF Urine Bacteria (NEGATIVE) /HPF Urine Glucose (NEGATIVE) mg/dL Urine Opiates Level (NEGATIVE) Ur Methadone (NEGATIVE) Urine Barbiturates (NEGATIVE) Ur Phencyclidine (PCP) (NEGATIVE) Urine Amphetamine (NEGATIVE) U Benzodiazepine Level (NEGATIVE) Urine Cocaine (NEGATIVE) Urine Marijuana (THC) (NEGATIVE) Specimen Received 04/15/17 Range/Units 22:10 WBC 21.1 H (4.0-10.5) K/mm3 RBC 5.12 (4.1-5.6) M/mm3 Hgb 15.3 (12.5-18.0) gm/dl Hct 44.8 (42-50) % MCV 87.5 (78-100) fl MCH 29.9 (26-32) pg MCHC 34.2 (32-36) g/dl RDW 12.2 (11.5-14.0) % Plt Count 419 (150-450) K/mm3 MPV 9.1 (6-9.5) fl Gran % 87.9 H (36.0-66.0) % Lymphocytes % 5.3 L (24.0-44.0) % Monocytes % 6.7 (0.0-12.0) % Eosinophils % 0.0 (0.00-5.0) % Basophils % 0.1 (0.0-0.4) % Basophils # 0.03 (0-0.4) Puncture Site pCO2 (35-45) mmHg pO2 (75-100) mmHg Base Excess (-2.0-2.0) O2 Saturation (94-100) g/dF ABG pH (7.35-7.45) ABG HCO3 (22-28) ABG O2 Sat (Measured) (95-100) % Arnaldo Test A-a Gradient a/A Ratio Hemoglobin Carboxyhemoglobin (0.0-6.9) % THgb Methemoglobin (1.4-1.5) % Temperature C POC O2 Flow Rate % Sodium (136-145) mEq/L Potassium (3.5-5.1) mEq/L Chloride (98-107) mEq/L Carbon Dioxide (21-32) mEq/L Anion Gap (5-15) MEQ/L BUN (9-20) mg/dL Creatinine (0.55-1.30) mg/dl Estimated GFR ML/MIN Glucose (70-110) MG/DL Lactic Acid (0.4-2.0) Calcium (8.5-10.1) mg/dL Magnesium (1.8-2.4) mg/dL Total Bilirubin (0.2-1.0) mg/dL AST (15-37) U/L ALT (12-78) U/L Alkaline Phosphatase (46-116) U/L Serum Total Protein (6.4-8.2) gm/dL Albumin (3.4-5.0) g/dL Amylase (25-115) U/L Lipase (73-393) U/L Ur Collection Type Urine Color (YELLOW) Urine Appearance (CLEAR) Urine pH (5-6) Ur Specific [place] (1.005-1.025) Urine Protein (Negative) Urine Ketones (NEGATIVE) Urine Blood (0-5) Tomas/ul Urine Nitrite (NEGATIVE) Urine Bilirubin (NEGATIVE) Urine Urobilinogen (0-1) mg/dL Ur Leukocyte Esterase (NEGATIVE) Urine Microscopic RBC (0-2) /HPF Urine Microscopic WBC (0-5) /HPF Ur Epithelial Cells (FEW) /HPF Urine Bacteria (NEGATIVE) /HPF Urine Glucose (NEGATIVE) mg/dL Urine Opiates Level (NEGATIVE) Ur Methadone (NEGATIVE) Urine Barbiturates (NEGATIVE) Ur Phencyclidine (PCP) (NEGATIVE) Urine Amphetamine (NEGATIVE) U Benzodiazepine Level (NEGATIVE) Urine Cocaine (NEGATIVE) Urine Marijuana (THC) (NEGATIVE) Specimen Received - Progress Discussed with : Stacie (OBS - [id number]) - Departure Time of Disposition: 00:09 Departure Disposition: Observation Clinical Impression: VOMITING, DEHYDRATION, LEUKOCYTOSIS R/O SEPSIS, ELEVATED LACTIC ACID, DEPRESSION, DM Condition: Stable Critical Care Time: No Referrals: VALENTINA ESPINO [Primary Care Provider] -
[2017-04-15 22:15] LABS: Lactic Acid 2.8 (0.4-2.0)
[2017-04-15 22:20] LABS: BASOPHIL % 0.1 % (0.0-0.4); Granulocytes % 87.9 % (36.0-66.0); Lymphocytes % 5.3 % (24.0-44.0); Mean Cell Volume 87.5 fl (78-100); Mean Corpuscular Hemoglobin 29.9 pg (26-32); Mean Platelet Volume 9.1 fl (6-9.5); Monocytes % 6.7 % (0.0-12.0); Platelet Count 419 K/mm3 (150-450); Red Blood Count 5.12 M/mm3 (4.1-5.6); Red Cell Distribution Width 12.2 % (11.5-14.0); White Blood Count 21.1 K/mm3 (4.0-10.5)
[2017-04-15 22:41] LABS: ALBUMIN 4.1 g/dL (3.4-5.0); BILIRUBIN,TOTAL 1.1 mg/dL (0.2-1.0); Total Protein 8.5 gm/dL (6.4-8.2)
[2017-04-15] MEDS ORDERED: Unasyn 3GM / NaCl 100ML 3 GM/100 ML IVPB IV STA (22:52)
[2017-04-15] MEDS ORDERED: NovoLIN R IV ONE (22:53)
[2017-04-15 23:09] LABS: A-aADO2 17; ALLEN TEST OK? YES; ARTERIAL BLD GAS O2 SATURATION 97.4 % (95-100); ARTERIAL BLOOD GAS BASE EXCESS -4.5 (-2.0-2.0); ARTERIAL BLOOD GAS FIO2 21 %; ARTERIAL BLOOD GAS PO2 88 mmHg (75-100); ARTERIAL BLOOD GAS pH 7.36 (7.35-7.45)
[2017-04-15] MEDS ORDERED: NovoLIN R ONE (23:09)
[2017-04-15] MEDS ORDERED: Unasyn 3GM / NaCl 100ML 3 GM/100 ML IVPB ONE (23:10)
[2017-04-15 23:37] LABS: Collection Type CLEAN CATCH
[2017-04-15 23:38] LABS: Bacteria RARE /HPF (NEGATIVE); Bilirubin NEGATIVE (NEGATIVE); Blood 50 Ery/ul (0-5); COMPLETE URINE MICROSCOPIC? YES; Epithelial Cells RARE /HPF (FEW); Glucose 1000 mg/dL (NEGATIVE); Leukocyte Esterase NEGATIVE (NEGATIVE); WBC 0-2 /HPF (0-5)
[2017-04-15 23:39] LABS: ADD URINE CULTURE? NO (NO)
[2017-04-16] MEDS ORDERED: Sodium Chloride 0.9% 1000 ML 1,000 ML IV STA ×2 (00:17→00:18)
[2017-04-16 00:28] LABS: Lactic Acid 2.2 (0.4-2.0)
[2017-04-16] MEDS ORDERED: Sodium Chloride 0.9% 1000 ML 2,000 ML ONE (00:46)
[2017-04-16] MEDS: NovoLOG Insulin SQ PRN ×5 (01:18→21:09)
[2017-04-16] MEDS: Zofran 4 MG/2 ML VIAL IV PRN ×2 (01:21→08:08)
[2017-04-16] MEDS: Sodium Chloride 0.9% 1000 ML 1,000 ML IV SCH ×2 (03:35→09:23)
[2017-04-16] MEDS: Phenergan 25 MG INJ IV PRN ×2 (03:36→20:55)
[2017-04-16 05:28] LABS: Mean Cell Volume 88.6 fl (78-100); Mean Corpuscular Hemoglobin 29.8 pg (26-32); Mean Platelet Volume 8.8 fl (6-9.5); Platelet Count 339 K/mm3 (150-450); Red Blood Count 4.29 M/mm3 (4.1-5.6); White Blood Count 18.2 K/mm3 (4.0-10.5)
[2017-04-16] MEDS: Unasyn 3GM / NaCl 100ML 3 GM/100 ML IVPB IV SCH ×4 (05:36→23:26)
[2017-04-16 06:02] LABS: ALBUMIN 3.2 g/dL (3.4-5.0); ALKALINE PHOSPHATASE 111 U/L (46-116); ANION GAP 15.3 MEQ/L (5-15); BLOOD UREA NITROGEN 19 mg/dL (9-20); CHLORIDE 107 mEq/L (98-107); Carbon Dioxide 25.7 mEq/L (21-32); Glucose 208 MG/DL (70-110); Potassium 4.3 mEq/L (3.5-5.1); SGOT/AST 16 U/L (15-37); SGPT/ALT 22 U/L (12-78); SODIUM 144 mEq/L (136-145); Total Protein 6.7 gm/dL (6.4-8.2)
[2017-04-16 08:11] LABS: Total Cells Counted 100
[2017-04-16 08:12] LABS: Platelet Estimate NORMAL (NORMAL)
--- NOTE | 2017-04-16 08:49 | XRAY ---
Indication: Leukocytosis. Comparison: October 09, 2016. PA/lateral chest again demonstrates normal heart, lungs, and bony thorax.
[2017-04-16] MEDS ORDERED: ONDANSETRON 2 MG/ML IV ONE (09:00)
[2017-04-16] MEDS ORDERED: [UNRECOGNIZED DRUG - OTHER] IV ONE (09:00)
[2017-04-16] MEDS ORDERED: SODIUM CHLORIDE 0.9% IV ONE (09:00)
--- NOTE | 2017-04-16 09:02 | PCM.HP ---
History of Present Illness - Chief Complaint Chief Complaint: VOMITING, DEHYDRATION, LEUKOCYTOSIS R/O SEPSIS, ELEVATED LACTIC ACID History of Present Illness: is a 31 year old male who came to ER c/o nausea and vomiting. He is a very poor historian this morning as he is extremely nauseated and will only answer questions with shakes of the head. He had been in the ER last night with similar complaints, including diarrhea. He was given IV fluids with resolution of his tachycardia and improvement of kidney function and sent home. He returned last night with vomiting, tachycardia, and Cr 1.8. He was admitted on IV fluids, anti-emetics, and IV unasyn as his WBC were 21,000. He indicates that he's been having some abdominal pain, periumbilical, <5/10. By report, he used meth 3 d ago and this commonly happens after the meth use. Two days ago he tested positive for meth in the ER and yesterday he tested negative for meth and positive for THC. - Review of Systems All Other Systems: Unable due to condition Medications & Allergies Home Medications: Home Medication List Insulin Glargine [Lantus Insulin] 1 unit SQ DAILY 04/16/17 [History Confirmed 04/16/17] Insulin Lispro [Humalog] 1 unit SQ DAILY 04/16/17 [History Confirmed 04/16/17] Allergies/Adverse Reactions: Allergies Allergy/AdvReac Type Severity Reaction Status Date / Time No Known Drug Allergies Allergy Verified 04/15/17 21:41 - Past Medical History Past Medical History: Yes Neurological History: No Pertinent History ENT History: No Pertinent History Cardiac History: No Pertinent History Respiratory History: No Pertinent History Endocrine Medical History: Diabetes Type I Musculoskelatal History: No Pertinent History GI Medical History: No Pertinent History History: No Pertinent History Pyscho-Social History: Depression Male Reproductive Disorders: No Pertinent History - Past Surgical History Past Surgical History: No Neuro Surgical History: No Pertinent History Cardiac History: No Pertinent History Respiratory Surgery: No Pertinent History GI Surgical History: No Pertinent History Genitourinary Surgical Hx: No Pertinent History Musculskeletal Surgical Hx: No Pertinent History Male Surgical History: No Pertinent History Other Surgical History: PT SHAKES HEAD "NO" WHEN ASKED IF HE HAS EVER HAD SURGERY - Social History Smoking Status: Never smoker Exposure to second hand smoke: No Alcohol: Occasionally Drug Use: marijuana, methamphetamines - Physical Exam Vital Signs: Vital Signs - 24 hr Temp Pulse Resp BP Pulse Ox 04/16/17 07:00 98.2 F 96 H 18 176/90 94 L 04/16/17 04:00 98.5 F 112 H 25 H 140/76 95 04/16/17 00:42 97.9 F 115 H 20 160/80 95 04/16/17 00:40 108 H 16 96 04/16/17 00:09 97 04/15/17 23:04 109 H 16 136/89 96 04/15/17 22:35 106 H 16 111/65 96 04/15/17 21:35 98.7 F 100 H 16 128/78 97 General Appearance: moderate distress, alert, other (eyes closed, he nods briefly to answer questions) Neck Exam: normal inspection Respiratory Exam: normal breath sounds, lungs clear, No crackles/rales, No rhonchi, No wheezing Gastrointestinal/Abdomen Exam: soft, normal bowel sounds, No tenderness Back Exam: normal inspection Extremity Exam: normal inspection, No pedal edema, No swelling Skin Exam: normal color, warm, dry Results - Labs Lab/Micro Results: Accuchecks Date 04/16/17 Date 04/16/17 Time 04:30 Time 01:04 Accucheck Value: 195 Accucheck Value: 286 Lab Results-Last 24 Hours 04/16/17 04/16/17 04/16/17 Range/Units 05:07 05:16 05:16 WBC 18.2 H (4.0-10.5) K/mm3 RBC 4.29 (4.1-5.6) M/mm3 Hgb 12.8 (12.5-18.0) gm/dl Hct 38.0 L (42-50) % MCV 88.6 (78-100) fl MCH 29.8 (26-32) pg MCHC 33.7 (32-36) g/dl RDW 12.0 (11.5-14.0) % Plt Count 339 (150-450) K/mm3 MPV 8.8 (6-9.5) fl Segmented Neutrophils 79 H (36.-66.) % Lymphocytes (Manual) 21 L (24-44) % Differential Comment NORMAL Platelet Estimate NORMAL (NORMAL) Sodium 144 (136-145) mEq/L Potassium 4.3 (3.5-5.1) mEq/L Chloride 107 (98-107) mEq/L Carbon Dioxide 25.7 (21-32) mEq/L Anion Gap 15.3 H (5-15) MEQ/L BUN 19 (9-20) mg/dL Creatinine 1.41 H (0.55-1.30) mg/dl Estimated GFR > 60 ML/MIN Glucose 208 H (70-110) MG/DL Lactic Acid 1.3 (0.4-2.0) Calcium 8.5 (8.5-10.1) mg/dL Total Bilirubin 0.80 (0.2-1.0) mg/dL AST 16 (15-37) U/L ALT 22 (12-78) U/L Alkaline Phosphatase 111 (46-116) U/L Serum Total Protein 6.7 (6.4-8.2) gm/dL Albumin 3.2 L (3.4-5.0) g/dL Accuchecks Date 04/16/17 Date 04/16/17 Time 04:30 Time 01:04 Accucheck Value: 195 Accucheck Value: 286 Assessment/Plan (1) Dehydration Current Visit: Yes Status: Resolved Code(s): E86.0 - DEHYDRATION (2) Nausea & vomiting Current Visit: Yes Status: Acute Qualifiers: Vomiting Intractability: intractable Assessment & Plan: Changed zofran to zofran drip. still can have phenergan prn. His family notes that this is typical for him when he stops taking methamphetamine. Code(s): R11.2 - NAUSEA WITH VOMITING, UNSPECIFIED (3) Acute renal failure Current Visit: Yes Status: Resolved Qualifiers: Acute renal failure type: unspecified Qualified Code(s): N17.9 - Acute kidney failure, unspecified Assessment & Plan: Likely due to hypovolemia. (4) Leukocytosis Current Visit: Yes Status: Acute Qualifiers: Leukocytosis type: unspecified Qualified Code(s): D72.829 - Elevated white blood cell count, unspecified Assessment & Plan: He is on IV unasyn, WBC were > 20,000 at each ER admission. Unsure the etiology of this. Pt is too nauseated to answer questions currently. I will try to return this afternoon when, hopefully, the nausea will be controlled and discuss again. UA and CXR fine. Code(s): D72.829 - ELEVATED WHITE BLOOD CELL COUNT, UNSPECIFIED (5) Polysubstance abuse Current Visit: Yes Status: Chronic Code(s): F19.10 - OTHER PSYCHOACTIVE SUBSTANCE ABUSE, UNCOMPLICATED (6) Diabetes mellitus type I Current Visit: No Status: Chronic Qualifiers: Diabetes mellitus complication status: without complication Assessment & Plan: Unsure his home insulin dose; cover him with sliding scale here. (7) Abdominal pain Current Visit: Yes Status: Acute Qualifiers: Abdominal location: periumbilical Qualified Code(s): R10.33 - Periumbilical pain Assessment & Plan: Pt indicated it was NOT tender when I palpated in the area. Will re-evaluate this afternoon. Likely due to all the vomiting. Code(s): R10.9 - UNSPECIFIED ABDOMINAL PAIN
[2017-04-16] MEDS: PROTONIX 40 MG IV IV SCH (09:58)
[2017-04-16] MEDS ORDERED: Sodium Chloride 0.9% 1000 ML 1,000 ML IV SCH (10:15)
[2017-04-16] MEDS: Lactated Ringers 1,000 ML IV SCH (21:09)
[2017-04-17] MEDS: NovoLOG Insulin SQ PRN ×5 (00:54→16:55)
[2017-04-17] MEDS: Phenergan 25 MG INJ IV PRN ×3 (02:41→16:55)
[2017-04-17] MEDS: Lactated Ringers 1,000 ML IV SCH (04:05)
[2017-04-17] MEDS: Unasyn 3GM / NaCl 100ML 3 GM/100 ML IVPB IV SCH ×3 (05:17→16:53)
[2017-04-17 05:40] LABS: BASOPHIL % 0.1 % (0.0-0.4); Eosinophil % 0.2 % (0.00-5.0); Granulocytes % 81.9 % (36.0-66.0); Lymphocytes % 9.2 % (24.0-44.0); Mean Cell Volume 89.4 fl (78-100); Mean Corpuscular Hemoglobin 29.6 pg (26-32); Mean Platelet Volume 8.8 fl (6-9.5); Monocytes % 8.6 % (0.0-12.0); Platelet Count 319 K/mm3 (150-450); Red Blood Count 3.98 M/mm3 (4.1-5.6); Red Cell Distribution Width 11.6 % (11.5-14.0); White Blood Count 16.9 K/mm3 (4.0-10.5)
[2017-04-17 06:01] LABS: ALBUMIN 2.9 g/dL (3.4-5.0); ALKALINE PHOSPHATASE 106 U/L (46-116); BLOOD UREA NITROGEN 15 mg/dL (9-20); CHLORIDE 102 mEq/L (98-107); Carbon Dioxide 22.6 mEq/L (21-32); Glucose 278 MG/DL (70-110); LIPASE 38 U/L (73-393); MAGNESIUM 1.7 mg/dL (1.8-2.4); Potassium 3.9 mEq/L (3.5-5.1); SGOT/AST 20 U/L (15-37); SGPT/ALT 19 U/L (12-78); SODIUM 139 mEq/L (136-145); Total Protein 6.1 gm/dL (6.4-8.2)
--- NOTE | 2017-04-17 09:21 | PCM.NOTE ---
Date and Time: 04/17/17915 Subjective Assessment: I did stop by and see the pt briefly last night, he seemed somewhat better. This morning he opens his eyes and verbalizes a little. Still feeling nauseated , but the vomiting improved after a zofran rider yesterday morning. He is still c/o 5/10 abdominal pain, last night he indicated this happens when he has these vomiting episodes, he believes it's from the vomiting. - Review of Systems Constitutional: No Fever Abdominal/Gastrointestinal: Abdominal Pain, Nausea, Vomiting Objective Exam General Appearance: mild distress Neurologic Exam: alert, cooperative Skin Exam: normal color, warm, dry Respiratory Exam: normal breath sounds, No crackles/rales, No rhonchi, No wheezing Cardiovascular Exam: regular rate/rhythm, normal heart sounds, No murmur Gastrointestinal/Abdomen Exam: soft, normal bowel sounds, tenderness ( generalized), No distention, No mass, No guarding, No rebound Extremity Exam: No pedal edema, No swelling Back Exam: normal inspection OBJECTIVE DATA Vital Signs: Vital Signs - 24 hr Temp Pulse Resp BP Pulse Ox 04/17/17 07:10 98.6 F 90 18 160/88 98 04/17/17 04:00 98.5 F 89 16 148/76 98 04/17/17 00:00 98.1 F 91 H 16 141/90 95 04/16/17 20:00 98.8 F 86 17 169/97 94 L 04/16/17 16:00 98.2 F 86 18 166/93 95 04/16/17 11:44 98.2 F 86 18 126/82 95 Pain Assessment - Last Documented Pain Intensity 5 Pain Scale Used 0-10 Pain Scale,FLACC Intake and Output: Intake & Output 04/14/17 04/15/17 04/16/17 04/17/17 11:59 11:59 11:59 11:59 Intake Total 2292 3712 Output Total 825 2170 Balance 1467 1542 Weight 66.179 kg 65.816 kg Lab Results: Accuchecks Date 04/17/17 Date 04/17/17 Date 04/17/17 Date 04/16/17 Date 04/16/17 Date 04/16/17 Time 07:30 Time 04:00 Time 00:30 Time 20:30 Time 16:30 Time 12:04 Accucheck Value: 273 Accucheck Value: 236 Accucheck Value: 227 Accucheck Value: 240 Accucheck Value: 222 Accucheck Value: 256 Lab Results-Last 24 Hours 04/17/17 04/17/17 Range/Units 05:10 05:10 WBC 16.9 H (4.0-10.5) K/mm3 RBC 3.98 L (4.1-5.6) M/mm3 Hgb 11.8 L (12.5-18.0) gm/dl Hct 35.6 L (42-50) % MCV 89.4 (78-100) fl MCH 29.6 (26-32) pg MCHC 33.1 (32-36) g/dl RDW 11.6 (11.5-14.0) % Plt Count 319 (150-450) K/mm3 MPV 8.8 (6-9.5) fl Gran % 81.9 H (36.0-66.0) % Lymphocytes % 9.2 L (24.0-44.0) % Monocytes % 8.6 (0.0-12.0) % Eosinophils % 0.2 (0.00-5.0) % Basophils % 0.1 (0.0-0.4) % Basophils # 0.02 (0-0.4) Sodium 139 (136-145) mEq/L Potassium 3.9 (3.5-5.1) mEq/L Chloride 102 (98-107) mEq/L Carbon Dioxide 22.6 (21-32) mEq/L Anion Gap 18.0 H (5-15) MEQ/L BUN 15 (9-20) mg/dL Creatinine 1.25 (0.55-1.30) mg/dl Estimated GFR > 60 ML/MIN Glucose 278 H (70-110) MG/DL Calcium 8.4 L (8.5-10.1) mg/dL Magnesium 1.7 L (1.8-2.4) mg/dL Total Bilirubin 0.70 (0.2-1.0) mg/dL AST 20 (15-37) U/L ALT 19 (12-78) U/L Alkaline Phosphatase 106 (46-116) U/L Serum Total Protein 6.1 L (6.4-8.2) gm/dL Albumin 2.9 L (3.4-5.0) g/dL Amylase 26 (25-115) U/L Lipase 38 L (73-393) U/L Assessment/Plan (1) Dehydration Current Visit: Yes Status: Resolved Assessment & Plan: Resolved. Will continue IV fluids; change to D5 1/2 NS. Code(s): E86.0 - DEHYDRATION (2) Nausea & vomiting Current Visit: Yes Status: Acute Qualifiers: Vomiting Intractability: intractable Assessment & Plan: Will repeat the zofran rider this morning. Code(s): R11.2 - NAUSEA WITH VOMITING, UNSPECIFIED (3) Acute renal failure Current Visit: Yes Status: Resolved Qualifiers: Acute renal failure type: unspecified Qualified Code(s): N17.9 - Acute kidney failure, unspecified Assessment & Plan: great today (4) Leukocytosis Current Visit: Yes Status: Acute Qualifiers: Leukocytosis type: unspecified Qualified Code(s): D72.829 - Elevated white blood cell count, unspecified Assessment & Plan: persistent. will recheck in a.m. He is on unasyn, the only etiology I see is from the vomiting (although he was initially > 20,000, high for reactive leukocytosis) or possible intestinal infection (covered on unasyn). improving. Code(s): D72.829 - ELEVATED WHITE BLOOD CELL COUNT, UNSPECIFIED (5) Polysubstance abuse Current Visit: Yes Status: Chronic Code(s): F19.10 - OTHER PSYCHOACTIVE SUBSTANCE ABUSE, UNCOMPLICATED (6) Diabetes mellitus type I Current Visit: No Status: Chronic Qualifiers: Diabetes mellitus complication status: without complication Assessment & Plan: will start lantus 7 units daily based on last 24 hour usage of sliding scale insulin. Will likely have to increase after starting the D5. (7) Abdominal pain Current Visit: Yes Status: Acute Qualifiers: Abdominal location: periumbilical Qualified Code(s): R10.33 - Periumbilical pain Assessment & Plan: Likely due to vomiting, exam is benign. Code(s): R10.9 - UNSPECIFIED ABDOMINAL PAIN
[2017-04-17] MEDS: Dextrose 5% -0.45 NaCl 1000 ML 1,000 ML IV SCH ×2 (10:06→19:53)
[2017-04-17] MEDS: Lantus Insulin SQ SCH (10:06)
[2017-04-17] MEDS: PROTONIX 40 MG IV IV SCH (10:07)
[2017-04-18] MEDS ORDERED: Zofran 2 MG/ML MULTI DOSE VIAL 20 ML IV ONE
[2017-04-18] MEDS: Phenergan 25 MG INJ IV PRN (00:15)
[2017-04-18] MEDS: NovoLOG Insulin SQ PRN ×6 (00:15→20:03)
[2017-04-18] MEDS: Unasyn 3GM / NaCl 100ML 3 GM/100 ML IVPB IV SCH ×4 (00:15→18:28)
[2017-04-18] MEDS ORDERED: Zofran 4 MG/2 ML VIAL IV ONE (05:00)
[2017-04-18] MEDS ORDERED: Sodium Chloride 0.9% 50 ML IV ONE (05:00)
[2017-04-18] MEDS ORDERED: Zofran 4 MG/2 ML VIAL ONE (05:24)
[2017-04-18] MEDS: Dextrose 5% -0.45 NaCl 1000 ML 1,000 ML IV SCH ×2 (05:29→16:24)
[2017-04-18] MEDS ORDERED: SODIUM CHLORIDE 0.9% IV ONE (06:15)
[2017-04-18] MEDS ORDERED: [UNRECOGNIZED DRUG - OTHER] IV ONE (06:15)
[2017-04-18] MEDS ORDERED: ONDANSETRON 2 MG/ML IV ONE (06:15)
--- NOTE | 2017-04-18 08:37 | PCM.NOTE ---
Date and Time: 04/18/17830 Subjective Assessment: Pt had vomiting during the day yesterday and did not tolerate a CLD. Last night IV zofran rider 16mg given and this morning he is not nauseated or vomiting. Has eaten some clear liquids. States his throat is sore. Objective Exam General Appearance: no apparent distress Neurologic Exam: alert, oriented x 3, cooperative Skin Exam: normal color, warm, dry Respiratory Exam: normal breath sounds, lungs clear, No crackles/rales, No rhonchi, No wheezing Cardiovascular Exam: regular rate/rhythm, normal heart sounds, No murmur Gastrointestinal/Abdomen Exam: soft, normal bowel sounds, tenderness ( generalized mild), No distention, No mass, No guarding, No rebound Extremity Exam: No pedal edema, No swelling Back Exam: normal inspection OBJECTIVE DATA Vital Signs: Vital Signs - 24 hr Temp Pulse Resp BP Pulse Ox 04/18/17 08:00 98.3 F 100 H 20 143/83 94 L 04/18/17 03:59 98.8 F 85 18 161/89 94 L 04/18/17 03:51 98.8 F 85 18 150/80 94 L 04/18/17 00:00 99.2 F 93 H 17 147/82 94 L 04/17/17 19:45 99.0 F 81 18 162/96 95 04/17/17 16:22 98.6 F 87 18 164/88 98 04/17/17 12:07 98.4 F 87 18 140/78 97 Pain Assessment - Last Documented Pain Intensity 0 Pain Scale Used 0-10 Pain Scale Intake and Output: Intake & Output 04/15/17 04/16/17 04/17/17 04/18/17 11:59 11:59 11:59 11:59 Intake Total 2292 3712 3923 Output Total 825 2670 3230 Balance 1467 1042 693 Weight 66.179 kg 65.816 kg 70.579 kg Lab Results: Accuchecks Date 04/18/17 Date 04/18/17 Date 04/18/17 Date 04/17/17 Date 04/17/17 Time 03:50 Time 00:00 Time 20:00 Time 16:30 Time 11:00 Accucheck Value: 227 Accucheck Value: 270 Accucheck Value: 255 Accucheck Value: 246 Accucheck Value: 221 Assessment/Plan (1) Dehydration Current Visit: Yes Status: Resolved Code(s): E86.0 - DEHYDRATION (2) Nausea & vomiting Current Visit: Yes Status: Acute Qualifiers: Vomiting Intractability: intractable Assessment & Plan: This is improved, but he is less than 24 hours out from the zofran infusion. Will let him continue to eat CLD (avancing to FLD as tolerated) today; would like for him to stay until tomorrow as at 10 pm he will be 24 hours post zofran. If he is not vomiting tomorrow morning will likely d/c home then. Code(s): R11.2 - NAUSEA WITH VOMITING, UNSPECIFIED (3) Acute renal failure Current Visit: Yes Status: Resolved Qualifiers: Acute renal failure type: unspecified Qualified Code(s): N17.9 - Acute kidney failure, unspecified (4) Leukocytosis Current Visit: Yes Status: Acute Qualifiers: Leukocytosis type: unspecified Qualified Code(s): D72.829 - Elevated white blood cell count, unspecified Assessment & Plan: rechecking this morning. He has been on IV unasyn. Code(s): D72.829 - ELEVATED WHITE BLOOD CELL COUNT, UNSPECIFIED (5) Polysubstance abuse Current Visit: Yes Status: Chronic Code(s): F19.10 - OTHER PSYCHOACTIVE SUBSTANCE ABUSE, UNCOMPLICATED (6) Diabetes mellitus type I Current Visit: No Status: Chronic Qualifiers: Diabetes mellitus complication status: without complication Assessment & Plan: BS in 200s here. (7) Abdominal pain Current Visit: Yes Status: Acute Qualifiers: Abdominal location: periumbilical Qualified Code(s): R10.33 - Periumbilical pain Assessment & Plan: improved; he did not c/o any pain, just had some mild tenderness to palpation ( consistent with intractable vomiting). Code(s): R10.9 - UNSPECIFIED ABDOMINAL PAIN
[2017-04-18 08:43] LABS: BASOPHIL % 0.3 % (0.0-0.4); Eosinophil % 2.6 % (0.00-5.0); Granulocytes % 70.1 % (36.0-66.0); Lymphocytes % 16.9 % (24.0-44.0); Mean Cell Volume 84.9 fl (78-100); Mean Corpuscular Hemoglobin 29.7 pg (26-32); Mean Platelet Volume 8.7 fl (6-9.5); Monocytes % 10.1 % (0.0-12.0); Platelet Count 293 K/mm3 (150-450); Red Blood Count 4.17 M/mm3 (4.1-5.6); Red Cell Distribution Width 11.3 % (11.5-14.0); White Blood Count 11.5 K/mm3 (4.0-10.5)
[2017-04-18] MEDS ORDERED: CHLORASEPTIC SPRAY 180 ML PO PRN (08:49)
[2017-04-18 09:16] LABS: ANION GAP 12.4 MEQ/L (5-15); BLOOD UREA NITROGEN 8 mg/dL (9-20); CHLORIDE 97 mEq/L (98-107); Carbon Dioxide 28.7 mEq/L (21-32); Glucose 252 MG/DL (70-110); SODIUM 134 mEq/L (136-145)
[2017-04-18 09:18] LABS: Potassium 2.7 mEq/L (3.5-5.1)
[2017-04-18] MEDS: Lantus Insulin SQ SCH (09:31)
[2017-04-18] MEDS: POTASSIUM CHLORIDE 20 mEq IN WATER 100ML 20 MEQ/100 ML BAG IV SCH ×2 (09:31→11:35)
[2017-04-18] MEDS: PROTONIX 40 MG IV IV SCH (09:31)
[2017-04-18 16:02] LABS: MAGNESIUM 1.5 mg/dL (1.8-2.4); Potassium 3.2 mEq/L (3.5-5.1)
[2017-04-19] MEDS: NovoLOG Insulin SQ PRN ×3 (00:03→08:13)
[2017-04-19] MEDS: Unasyn 3GM / NaCl 100ML 3 GM/100 ML IVPB IV SCH ×2 (01:23→06:04)
[2017-04-19] MEDS: Dextrose 5% -0.45 NaCl 1000 ML 1,000 ML IV SCH ×2 (02:12→06:05)
[2017-04-19 06:00] LABS: Mean Cell Volume 83.4 fl (78-100); Mean Corpuscular Hemoglobin 29.6 pg (26-32); Mean Platelet Volume 8.6 fl (6-9.5); Platelet Count 306 K/mm3 (150-450); Red Blood Count 4.33 M/mm3 (4.1-5.6); Red Cell Distribution Width 11.2 % (11.5-14.0); White Blood Count 8.9 K/mm3 (4.0-10.5)
[2017-04-19 07:28] VITALS: BP 144/83; PULSE 88; O2SAT 95
--- NOTE | 2017-04-19 08:37 | PCM.DS ---
Discharge Summary Date of Admission: 04/16/17 00:40 Admitting Physician: VALENTINA ESPINO Primary Care Provider: VALENTINA ESPINO Allergies Allergies No Known Drug Allergies Allergy (Verified 04/15/17 21:41) Hospital Summary - Hospital Course Hospital Course: Pt was admitted after using methamphetamine with vomiting and leukocytosis. He continued to have severe nausea and vomiting for several days, better with 16mg zofran infusions daily and prn phenergan. He has now been approx 36h s/p last zofran infusion and did not have any vomiting overnight. Tolerating clear liquid diet. he was having 5/10 abdominal pain, he though related to the vomiting, wiht benign exam. Pain is better today, 4/10. leukocytosis has resolved (pt has been on IV unasyn throughout his stay for question of abdominal infection). - Vitals & Intake/Output Vital Signs: Vital Signs Temperature 98.7 F 04/19/17 07:27 Pulse Rate 88 04/19/17 07:27 Respiratory Rate 18 04/19/17 07:27 Blood Pressure 144/83 04/19/17 07:27 O2 Sat by Pulse Oximetry 95 04/19/17 07:27 Intake & Output: Intake & Output 04/16/17 04/17/17 04/18/17 04/19/17 11:59 11:59 11:59 11:59 Intake Total 2292 3712 3923 4251 Output Total 825 2670 3230 1800 Balance 1467 4153 331 4579 Weight 66.179 kg 65.816 kg 70.579 kg 70.67 kg - Lab Result Diagrams: 04/19/17 05:30 04/18/17 15:35 Lab Results-Last 24 Hrs: Accuchecks Date 04/19/17 Date 04/19/17 Date 04/19/17 Time 03:30 Time 00:00 Time 20:00 Accucheck Value: 225 Accucheck Value: 256 Accucheck Value: 252 Accucheck Value: 246 Accucheck Value: 254 Lab Results-Last 24 Hours 04/18/17 04/18/17 04/18/17 Range/Units 08:00 08:30 15:35 WBC 11.5 H (4.0-10.5) K/mm3 RBC 4.17 (4.1-5.6) M/mm3 Hgb 12.4 L (12.5-18.0) gm/dl Hct 35.4 L (42-50) % MCV 84.9 (78-100) fl MCH 29.7 (26-32) pg MCHC 35.0 (32-36) g/dl RDW 11.3 L (11.5-14.0) % Plt Count 293 (150-450) K/mm3 MPV 8.7 (6-9.5) fl Gran % 70.1 H (36.0-66.0) % Lymphocytes % 16.9 L (24.0-44.0) % Monocytes % 10.1 (0.0-12.0) % Eosinophils % 2.6 (0.00-5.0) % Basophils % 0.3 (0.0-0.4) % Basophils # 0.03 (0-0.4) Sodium 134 L (136-145) mEq/L Potassium 2.7 L* 3.2 L (3.5-5.1) mEq/L Chloride 97 L (98-107) mEq/L Carbon Dioxide 28.7 (21-32) mEq/L Anion Gap 12.4 (5-15) MEQ/L BUN 8 L (9-20) mg/dL Creatinine 1.16 (0.55-1.30) mg/dl Estimated GFR > 60 ML/MIN Glucose 252 H (70-110) MG/DL Calcium 8.6 (8.5-10.1) mg/dL Magnesium 1.5 L (1.8-2.4) mg/dL 04/19/17 04/19/17 Range/Units 05:30 05:30 WBC 8.9 (4.0-10.5) K/mm3 RBC 4.33 (4.1-5.6) M/mm3 Hgb 12.8 (12.5-18.0) gm/dl Hct 36.1 L (42-50) % MCV 83.4 (78-100) fl MCH 29.6 (26-32) pg MCHC 35.5 (32-36) g/dl RDW 11.2 L (11.5-14.0) % Plt Count 306 (150-450) K/mm3 MPV 8.6 (6-9.5) fl Gran % (36.0-66.0) % Lymphocytes % (24.0-44.0) % Monocytes % (0.0-12.0) % Eosinophils % (0.00-5.0) % Basophils % (0.0-0.4) % Basophils # (0-0.4) Sodium (136-145) mEq/L Potassium (3.5-5.1) mEq/L Chloride (98-107) mEq/L Carbon Dioxide (21-32) mEq/L Anion Gap (5-15) MEQ/L BUN (9-20) mg/dL Creatinine (0.55-1.30) mg/dl Estimated GFR ML/MIN Glucose (70-110) MG/DL Calcium (8.5-10.1) mg/dL Magnesium 1.3 L (1.8-2.4) mg/dL Micro Results-Entire Visit: Accuchecks Date 04/19/17 Date 04/19/17 Date 04/19/17 Time 03:30 Time 00:00 Time 20:00 Accucheck Value: 225 Accucheck Value: 256 Accucheck Value: 252 Accucheck Value: 246 Accucheck Value: 254 Discharge Exam General Appearance: no apparent distress Neurologic Exam: alert, oriented x 3, cooperative Skin Exam: normal color, warm, dry Neck Exam: normal inspection Respiratory Exam: normal breath sounds, lungs clear, No crackles/rales, No rhonchi, No wheezing Cardiovascular Exam: regular rate/rhythm, normal heart sounds, No murmur Gastrointestinal/Abdomen Exam: soft, normal bowel sounds, tenderness (mild diffuse), No distention, No mass, No guarding, No rebound Extremity Exam: No pedal edema, No swelling Final Diagnosis/Problem List - Final Discharge Diagnosis/Problem (1) Dehydration Current Visit: Yes Status: Resolved (2) Nausea & vomiting Current Visit: Yes Status: Resolved (3) Acute renal failure Current Visit: Yes Status: Resolved (4) Leukocytosis Current Visit: Yes Status: Resolved (5) Polysubstance abuse Current Visit: Yes Status: Chronic Assessment & Plan: I discussed treatment with pt, he has been in treatment before, not interested currently. States he usually just has been trying to stay away from the methamphetamine but just "fell back into it." (6) Diabetes mellitus type I Current Visit: No Status: Chronic Assessment & Plan: resume home insulin dosage when he resumes his regular diet. (7) Abdominal pain Current Visit: Yes Status: Acute Assessment & Plan: improved. Appears benign, likely related to the vomiting. I am not sending the pt home on antibiotics. (8) Elevated blood pressure reading without diagnosis of hypertension Current Visit: Yes Status: Acute Assessment & Plan: He has had some elevated BP in the hospital. It's important that he follow up with me outpatient in 2 weeks. - Discharge Disposition: Home, Self-Care Condition: Stable Prescriptions: Continue Insulin Glargine [Lantus Insulin] 1 unit SQ DAILY Insulin Lispro [Humalog] 1 unit SQ DAILY Follow up with: VALENTINA ESPINO [Primary Care Provider] - 05/02/17 10:45 am Forms: Patient Portal Information
[2017-04-19] MEDS: Lantus Insulin SQ SCH (09:46)
[2017-04-19] MEDS: PROTONIX 40 MG IV IV SCH (10:56)
== END 2017-04-19 11:15 | disposition home or self-care (01) ==
LOC: ED 21:19 → MED SURG 04-16 00:40
PROVIDERS: ADMIT Family Medicine; ATTEND Family Medicine
DX: E86.0 Dehydration (principal); N17.9 Acute kidney failure, unspecified; D72.829 Elevated white blood cell count, unspecified; F19.10 Other psychoactive substance abuse, uncomplicated; E10.8 Type 1 diabetes mellitus with unspecified complications; R10.33 Periumbilical pain; R03.0 Elevated blood-pressure reading, without diagnosis of hypertension
CPT/HCPCS: 36415; 36600; 71020; 80048; 80053; 80307; 81000; 82150; 82375; 82803; 82962; 83605; 83690; 83735; 84132; 85025; 85027; 87040; 93268; 96360; 96374; 96375; 99284; G0378; J0295; J2405; J2550; J3480; A9270-GY

== ENCOUNTER 2017-05-25 16:27 | Inpatient (IN) | payer SELFPAY ==
[2017-05-25] MEDS ORDERED: Sodium Chloride 0.9% 1000 ML 1,000 ML ONE ×2 (17:15→18:02)
[2017-05-25] MEDS ORDERED: Zofran 4 MG/2 ML VIAL ONE ×2 (17:15→17:58)
[2017-05-25] MEDS ORDERED: Sodium Chloride 0.9% 1000 ML 1,000 ML IV STA ×2 (17:22→18:00)
--- NOTE | 2017-05-25 17:22 | ERPHSYRPT ---
- History of Present Illness Time Seen by Provider: 05/25/17 17:16 Source: patient Exam Limitations: no limitations Patient Subjective Stated Complaint: PT REPORTS HIS SUGAR HAS BEEN READING HIGH HELL FOR A FEW DAYS-STATES HE BEGAN VOMITING THIS AM-VOMITED SILVIANO 5 TIMES SO FAR-REPORTS ABD PAIN-DENIES DIARHEA-DENIES PAIN ELSEWHERE Triage Nursing Assessment: PT PALE WARM ET DRY-DRY HEAVING DURING TRIAGE-BOWEL SOUNDS PRESENT-RESP SHALLOW ET SLIGHTLY FAST-PT ALERT ABLE TO ANSWER ALL QEUSTIONS Physician History: The patient is a 31-year-old male complaining of vomiting and abdominal pain for 2 days. He is a very poor historian. He does not check his blood glucose but he is a type I diabetic. He hasn't been able to keep anything down for 2 days. His past medical history is significant for diabetes type 1, substance abuse, diabetic ketoacidosis, dehydration, and GERD. Timing/Duration: yesterday Severity: moderate Modifying Factors: Improves With: eating Associated Symptoms: nausea, vomiting, abdominal pain Allergies/Adverse Reactions: No Known Drug Allergies Allergy (Verified 04/15/17 21:41) Home Medications: Insulin Glargine [Lantus Insulin] 1 unit SQ DAILY 04/16/17 [History] Insulin Lispro [Humalog] 1 unit SQ DAILY 04/16/17 [History] Hx Tetanus, Diphtheria Vaccination/Date Given: Yes Hx Influenza Vaccination/Date Given: No Hx Pneumococcal Vaccination/Date Given: No Immunizations Up to Date: Yes - Review of Systems Constitutional: Weakness Eyes: No Symptoms Ears, Nose, & Throat: No Symptoms Respiratory: No Cough, No Dyspnea Cardiac: No Chest Pain, No Edema, No Syncope Abdominal/Gastrointestinal: Abdominal Pain, Nausea, Vomiting, No Diarrhea Genitourinary Symptoms: No Dysuria Musculoskeletal: No Back Pain, No Neck Pain Skin: No Rash Neurological: No Dizziness, No Focal Weakness, No Sensory Changes Psychological: No Symptoms Endocrine: No Symptoms Hematologic/Lymphatic: No Symptoms Immunological/Allergic: No Symptoms All Other Systems: Reviewed and Negative - Past Medical History Pertinent Past Medical History: Yes Neurological History: No Pertinent History ENT History: No Pertinent History Cardiac History: No Pertinent History Respiratory History: No Pertinent History Endocrine Medical History: Diabetes Type I Musculoskeletal History: No Pertinent History GI Medical History: No Pertinent History History: No Pertinent History Psycho-Social History: Depression Male Reproductive Disorders: No Pertinent History - Past Surgical History Past Surgical History: No Neuro Surgical History: No Pertinent History Cardiac: No Pertinent History Respiratory: No Pertinent History Gastrointestinal: No Pertinent History Genitourinary: No Pertinent History Musculoskeletal: No Pertinent History Male Surgical History: No Pertinent History Other Surgical History: PT SHAKES HEAD "NO" WHEN ASKED IF HE HAS EVER HAD SURGERY - Social History Smoking Status: Never smoker Exposure to second hand smoke: No Drug Use: marijuana, methamphetamines Patient Lives Alone: No - Nursing Vital Signs Nursing Vital Signs: Initial Vital Signs Temperature 99.1 F 05/25/17 16:57 Pulse Rate 112 H 05/25/17 16:57 Respiratory Rate 24 05/25/17 16:57 Blood Pressure 145/96 05/25/17 16:57 O2 Sat by Pulse Oximetry 99 05/25/17 16:57 Pain Scale Pain Intensity 5 - Physical Exam General Appearance: moderate distress Eye Exam: PERRL/EOMI, eyes nml inspection Ears, Nose, Throat Exam: normal ENT inspection, TMs normal, pharynx normal, moist mucous membranes Neck Exam: normal inspection, non-tender, supple, full range of motion Respiratory Exam: normal breath sounds, lungs clear, No respiratory distress Cardiovascular Exam: regular rate/rhythm Gastrointestinal/Abdomen Exam: tenderness Rectal Exam: not done Back Exam: normal inspection, normal range of motion, No CVA tenderness, No vertebral tenderness Extremity Exam: normal inspection, normal range of motion, pelvis stable Neurologic Exam: alert, oriented x 3, cooperative, normal mood/affect, nml cerebellar function, nml station & gait, sensation nml, No motor deficits Skin Exam: normal color, warm, dry, No rash Lymphatic Exam: No adenopathy SpO2 Interpretation: normal SpO2: 99 Oxygen Delivery: Room Air Ordered Tests: Active Orders 24 hr Category Date Time Status Accucheck STAT Care 05/25/17 17:22 Active Pocket Flap Creasing Machine Operator STAT Care 05/25/17 17:23 Active Giron [Catheter-Stafford Giron] STAT Care 05/25/17 18:14 Active IV Insertion STAT Care 05/25/17 17:22 Active IV Insertion-2nd Peripheral STAT Care 05/25/17 17:22 Active Oxygen-ED Only NASAL CANNULA 2 lpm Care 05/25/17 18:01 Active ARTERIAL BLOOD GASES Urgent Lab 05/25/17 18:00 Completed CBC W DIFF Stat Lab 05/25/17 17:05 Completed CMP Stat Lab 05/25/17 17:05 Completed CULTURE,URINE Stat Lab 05/25/17 18:18 Received ETHYL ALCOHOL Stat Lab 05/25/17 17:05 Completed Lactic Acid Urgent Lab 05/25/17 18:00 Completed MAGNESIUM Stat Lab 05/25/17 17:05 Completed UA W/ MICROSCOPIC Stat Lab 05/25/17 18:18 Completed Urine Triage Profile Stat Lab 05/25/17 18:18 Completed Medication Summary Generic Name Dose Route Start Last Admin Trade Name Freq PRN Reason Stop Dose Admin Sodium Chloride 1,000 mls @ 999 mls/hr 05/25/17 18:00 05/25/17 18:06 Sodium Chloride 0.9% 1000 Ml IV 05/25/17 19:00 999 mls/hr .Q1H1M STA Administration Discontinued Medications Generic Name Dose Route Start Last Admin Trade Name Freq PRN Reason Stop Dose Admin Sodium Chloride Confirm 05/25/17 17:15 Sodium Chloride 0.9% 1000 Ml Administered 05/25/17 17:16 Dose 1,000 mls @ ud .ROUTE .STK-MED ONE Sodium Chloride 1,000 mls @ 999 mls/hr 05/25/17 17:22 05/25/17 17:26 Sodium Chloride 0.9% 1000 Ml IV 05/25/17 18:22 999 mls/hr .Q1H1M STA Administration Sodium Chloride Confirm 05/25/17 18:02 Sodium Chloride 0.9% 1000 Ml Administered 05/25/17 18:03 Dose 1,000 mls @ ud .ROUTE .STK-MED ONE Ondansetron HCl Confirm 05/25/17 17:15 Zofran 4 Mg/2 Ml Vial Administered 05/25/17 17:16 Dose 4 mg .ROUTE .STK-MED ONE Ondansetron HCl 4 mg 05/25/17 17:25 05/25/17 17:26 Zofran 4 Mg/2 Ml Vial IV 05/25/17 17:26 4 mg STAT ONE Administration Ondansetron HCl 4 mg 05/25/17 17:57 05/25/17 18:06 Zofran 4 Mg/2 Ml Vial IV 05/25/17 17:58 4 mg STAT ONE Administration Ondansetron HCl Confirm 05/25/17 17:58 Zofran 4 Mg/2 Ml Vial Administered 05/25/17 17:59 Dose 4 mg .ROUTE .STK-MED ONE Promethazine HCl 25 mg 05/25/17 17:57 05/25/17 18:06 Phenergan 25 Mg Inj IV 05/25/17 17:58 25 mg STAT ONE Administration Promethazine HCl Confirm 05/25/17 18:02 Phenergan 25 Mg Inj Administered 05/25/17 18:03 Dose 25 mg .ROUTE .STK-MED ONE Lab/Rad Data: Laboratory Result Diagrams 05/25/17 17:05 05/25/17 17:05 Laboratory Results 05/25/17 05/25/17 05/25/17 Range/Units 18:18 18:18 18:00 WBC (4.0-10.5) K/mm3 RBC (4.1-5.6) M/mm3 Hgb (12.5-18.0) gm/dl Hct (42-50) % MCV (78-100) fl MCH (26-32) pg MCHC (32-36) g/dl RDW (11.5-14.0) % Plt Count (150-450) K/mm3 MPV (6-9.5) fl Gran % (36.0-66.0) % Lymphocytes % (24.0-44.0) % Monocytes % (0.0-12.0) % Eosinophils % (0.00-5.0) % Basophils % (0.0-0.4) % Basophils # (0-0.4) Puncture Site RIGHT BRACHIAL pCO2 36 (35-45) mmHg pO2 94 (75-100) mmHg Base Excess -7.4 L (-2.0-2.0) O2 Saturation 95.6 (94-100) g/dF ABG pH 7.31 L (7.35-7.45) ABG HCO3 18.1 L (22-28) ABG O2 Sat (Measured) 98.3 (95-100) % Arnaldo Test NOT APPLICABLE A-a Gradient 11 a/A Ratio 0.90 Hemoglobin 15.5 Carboxyhemoglobin 1.5 (0.0-6.9) % THgb Methemoglobin 1.2 L (1.4-1.5) % Temperature 37.0 C POC O2 Flow Rate 21 % Sodium (136-145) mEq/L Potassium 4.2 (3.5-5.1) mEq/L Chloride (98-107) mEq/L Carbon Dioxide (21-32) mEq/L Anion Gap (5-15) MEQ/L BUN (9-20) mg/dL Creatinine (0.55-1.30) mg/dl Estimated GFR ML/MIN Glucose (70-110) MG/DL Lactic Acid 2.9 H (0.4-2.0) Calcium (8.5-10.1) mg/dL Magnesium (1.8-2.4) mg/dL Total Bilirubin (0.2-1.0) mg/dL AST (15-37) U/L ALT (12-78) U/L Alkaline Phosphatase (46-116) U/L Serum Total Protein (6.4-8.2) gm/dL Albumin (3.4-5.0) g/dL Ur Collection Type CATH Urine Color YELLOW (YELLOW) Urine Appearance CLEAR (CLEAR) Urine pH 5.0 (5-6) Ur Specific Sandy 1.025 (1.005-1.025) Urine Protein 30 (Negative) Urine Ketones LARGE (NEGATIVE) Urine Blood 250 (0-5) Tomas/ul Urine Nitrite NEGATIVE (NEGATIVE) Urine Bilirubin NEGATIVE (NEGATIVE) Urine Urobilinogen NORMAL (0-1) mg/dL Ur Leukocyte Esterase NEGATIVE (NEGATIVE) Urine Microscopic RBC 2-5 (0-2) /HPF Urine Microscopic WBC 0-2 (0-5) /HPF Ur Epithelial Cells FEW (FEW) /HPF Urine Bacteria FEW (NEGATIVE) /HPF Urine Culture Reflexed YES (NO) Urine Glucose 1000 (NEGATIVE) mg/dL Urine Opiates Level NEG. (NEGATIVE) Ur Methadone NEG. (NEGATIVE) Urine Barbiturates NEG. (NEGATIVE) Ur Phencyclidine (PCP) NEG. (NEGATIVE) Urine Amphetamine NEG. (NEGATIVE) U Benzodiazepine Level NEG. (NEGATIVE) Urine Cocaine NEG. (NEGATIVE) Urine Marijuana (THC) POS. (NEGATIVE) Ethyl Alcohol (0.00-0.01) % Specimen Received 05/25/17 1820 05/25/17 05/25/17 Range/Units 17:05 17:05 WBC 8.5 (4.0-10.5) K/mm3 RBC 5.42 (4.1-5.6) M/mm3 Hgb 15.9 (12.5-18.0) gm/dl Hct 45.9 (42-50) % MCV 84.7 (78-100) fl MCH 29.3 (26-32) pg MCHC 34.6 (32-36) g/dl RDW 12.1 (11.5-14.0) % Plt Count 400 (150-450) K/mm3 MPV 9.2 (6-9.5) fl Gran % 65.3 (36.0-66.0) % Lymphocytes % 23.1 L (24.0-44.0) % Monocytes % 8.6 (0.0-12.0) % Eosinophils % 2.2 (0.00-5.0) % Basophils % 0.8 (0.0-0.4) % Basophils # 0.07 (0-0.4) Puncture Site pCO2 (35-45) mmHg pO2 (75-100) mmHg Base Excess (-2.0-2.0) O2 Saturation (94-100) g/dF ABG pH (7.35-7.45) ABG HCO3 (22-28) ABG O2 Sat (Measured) (95-100) % Arnaldo Test A-a Gradient a/A Ratio Hemoglobin Carboxyhemoglobin (0.0-6.9) % THgb Methemoglobin (1.4-1.5) % Temperature C POC O2 Flow Rate % Sodium 137 (136-145) mEq/L Potassium 4.5 (3.5-5.1) mEq/L Chloride 98 (98-107) mEq/L Carbon Dioxide 17.9 L (21-32) mEq/L Anion Gap 25.1 H (5-15) MEQ/L BUN 18 (9-20) mg/dL Creatinine 1.22 (0.55-1.30) mg/dl Estimated GFR > 60 ML/MIN Glucose 262 H (70-110) MG/DL Lactic Acid (0.4-2.0) Calcium 10.0 (8.5-10.1) mg/dL Magnesium 2.0 (1.8-2.4) mg/dL Total Bilirubin 0.80 (0.2-1.0) mg/dL AST 23 (15-37) U/L ALT 25 (12-78) U/L Alkaline Phosphatase 133 H (46-116) U/L Serum Total Protein 8.0 (6.4-8.2) gm/dL Albumin 4.5 (3.4-5.0) g/dL Ur Collection Type Urine Color (YELLOW) Urine Appearance (CLEAR) Urine pH (5-6) Ur Specific Sandy (1.005-1.025) Urine Protein (Negative) Urine Ketones (NEGATIVE) Urine Blood (0-5) Tomas/ul Urine Nitrite (NEGATIVE) Urine Bilirubin (NEGATIVE) Urine Urobilinogen (0-1) mg/dL Ur Leukocyte Esterase (NEGATIVE) Urine Microscopic RBC (0-2) /HPF Urine Microscopic WBC (0-5) /HPF Ur Epithelial Cells (FEW) /HPF Urine Bacteria (NEGATIVE) /HPF Urine Culture Reflexed (NO) Urine Glucose (NEGATIVE) mg/dL Urine Opiates Level (NEGATIVE) Ur Methadone (NEGATIVE) Urine Barbiturates (NEGATIVE) Ur Phencyclidine (PCP) (NEGATIVE) Urine Amphetamine (NEGATIVE) U Benzodiazepine Level (NEGATIVE) Urine Cocaine (NEGATIVE) Urine Marijuana (THC) (NEGATIVE) Ethyl Alcohol < 0.010 (0.00-0.01) % Specimen Received - Progress Progress: improved Discussed with Dr.: Atkinson Counseled pt/family regarding: lab results, diagnosis - Departure Time of Disposition: 18:57 Departure Disposition: In-patient Admission Clinical Impression: Diabetic ketoacidosis, Vomiting, Dehydration Condition: Stable Critical Care Time: No Referrals: VALENTINA ESPINO [Primary Care Provider] - Additional Instructions: You have diabetic ketoacidosis with vomiting and dehydration. You were given Zofran 8 mg and Phenergan 25 mg by IV in addition to 2 L of fluid. You're being admitted per Dr. Atkinosn.
[2017-05-25] MEDS ORDERED: Zofran 4 MG/2 ML VIAL IV ONE ×2 (17:25→17:57)
[2017-05-25 17:45] LABS: BASOPHIL % 0.8 % (0.0-0.4); Eosinophil % 2.2 % (0.00-5.0); Granulocytes % 65.3 % (36.0-66.0); Lymphocytes % 23.1 % (24.0-44.0); Mean Cell Volume 84.7 fl (78-100); Mean Corpuscular Hemoglobin 29.3 pg (26-32); Mean Platelet Volume 9.2 fl (6-9.5); Monocytes % 8.6 % (0.0-12.0); Platelet Count 400 K/mm3 (150-450); Red Blood Count 5.42 M/mm3 (4.1-5.6); Red Cell Distribution Width 12.1 % (11.5-14.0); White Blood Count 8.5 K/mm3 (4.0-10.5)
[2017-05-25] MEDS ORDERED: Phenergan 25 MG INJ IV ONE (17:57)
[2017-05-25] MEDS ORDERED: Phenergan 25 MG INJ ONE (18:02)
[2017-05-25 18:06] LABS: A-aADO2 11; ARTERIAL BLD GAS O2 SATURATION 98.3 % (95-100); ARTERIAL BLOOD GAS BASE EXCESS -7.4 (-2.0-2.0); ARTERIAL BLOOD GAS FIO2 21 %; ARTERIAL BLOOD GAS PO2 94 mmHg (75-100); ARTERIAL BLOOD GAS pH 7.31 (7.35-7.45); Lactic Acid 2.9 (0.4-2.0)
[2017-05-25 18:09] LABS: ALBUMIN 4.5 g/dL (3.4-5.0); ALKALINE PHOSPHATASE 133 U/L (46-116); ANION GAP 25.1 MEQ/L (5-15); BLOOD UREA NITROGEN 18 mg/dL (9-20); CHLORIDE 98 mEq/L (98-107); Carbon Dioxide 17.9 mEq/L (21-32); ETHYL ALCOHOL < 0.010 % (0.00-0.01); Glucose 262 MG/DL (70-110); Potassium 4.5 mEq/L (3.5-5.1); SGOT/AST 23 U/L (15-37); SGPT/ALT 25 U/L (12-78); SODIUM 137 mEq/L (136-145)
[2017-05-25 18:34] LABS: Bilirubin NEGATIVE (NEGATIVE); Blood 250 Ery/ul (0-5); COMPLETE URINE MICROSCOPIC? YES; Collection Type CATH; Glucose 1000 mg/dL (NEGATIVE); Leukocyte Esterase NEGATIVE (NEGATIVE)
[2017-05-25 18:35] LABS: ADD URINE CULTURE? YES (NO); Bacteria FEW /HPF (NEGATIVE); Epithelial Cells FEW /HPF (FEW); WBC 0-2 /HPF (0-5)
[2017-05-25] MEDS ORDERED: Sodium Chloride 0.9% 1000 ML 1,000 ML IV SCH ×2 (20:42→22:45)
[2017-05-25] MEDS ORDERED: Phenergan 25 MG INJ IM PRN (20:42)
[2017-05-25 21:24] LABS: VBG CARBOXYHEMOGLOBIN 3.5 % T HGB (0.0-6.9); VBG HCO3- 15.8 meq/L (22-28); VBG HEMOGLOBIN 15.4; VBG POTASSIUM 4.6 (3.5-5.1); VBG pH 7.36 (7.32-7.42)
[2017-05-25] MEDS ORDERED: NovoLOG Insulin SQ ONE (22:35)
[2017-05-25] MEDS: Phenergan 25 MG INJ IV PRN (23:08)
[2017-05-25] MEDS ORDERED: NOVOLIN R INSULIN (FOR DRIPS)** 100 UNITS in Sodium Chloride 0.9% 100 ML IVPB 100 ML IV PRN (23:51)
[2017-05-26] MEDS ORDERED: D50W 50 ml Abboject IV PRN (00:03)
[2017-05-26] MEDS ORDERED: NovoLIN R ONE ×2 (00:10→00:20)
[2017-05-26] MEDS ORDERED: Sodium Chloride 0.9% 100 ML IVPB 100 ML IV ONE (00:11)
[2017-05-26 00:19] LABS: ANION GAP 21.9 MEQ/L (5-15); BLOOD UREA NITROGEN 17 mg/dL (9-20); CHLORIDE 103 mEq/L (98-107); Carbon Dioxide 20.7 mEq/L (21-32); Glucose 194 MG/DL (70-110); MAGNESIUM 1.6 mg/dL (1.8-2.4); Potassium 4.4 mEq/L (3.5-5.1); SODIUM 141 mEq/L (136-145)
[2017-05-26] MEDS: Dextrose 5% -0.45 NaCl 1000 ML 1,000 ML IV SCH ×3 (00:36→16:52)
[2017-05-26] MEDS ORDERED: Magnesium 1 Gm / 100 Ml D5W*** 100 ML IV PRN (00:38)
[2017-05-26] MEDS ORDERED: Magnesium Sulfate 1 GM/2 ML VIAL IV ONE (00:45)
[2017-05-26] MEDS: Zofran 4 MG/2 ML VIAL IV PRN (00:53)
[2017-05-26] MEDS: Phenergan 25 MG INJ IV PRN ×2 (03:18→11:43)
[2017-05-26 06:01] LABS: BASOPHIL % 0.1 % (0.0-0.4); Eosinophil % 0.1 % (0.00-5.0); Granulocytes % 87.1 % (36.0-66.0); Lymphocytes % 6.5 % (24.0-44.0); Mean Cell Volume 84.8 fl (78-100); Mean Corpuscular Hemoglobin 29.4 pg (26-32); Mean Platelet Volume 9.1 fl (6-9.5); Monocytes % 6.2 % (0.0-12.0); Platelet Count 364 K/mm3 (150-450); Red Blood Count 4.87 M/mm3 (4.1-5.6); Red Cell Distribution Width 12.3 % (11.5-14.0); White Blood Count 18.5 K/mm3 (4.0-10.5)
[2017-05-26 06:05] LABS: ANION GAP 18.8 MEQ/L (5-15); BLOOD UREA NITROGEN 16 mg/dL (9-20); CHLORIDE 103 mEq/L (98-107); Carbon Dioxide 23.1 mEq/L (21-32); Glucose 157 MG/DL (70-110); Potassium 3.8 mEq/L (3.5-5.1); SODIUM 141 mEq/L (136-145)
[2017-05-26 08:19] LABS: ALBUMIN 4.2 g/dL (3.4-5.0); BILIRUBIN,TOTAL 0.8 mg/dL (0.2-1.0); Direct Bilirubin 0.13 MG/DL (0.0-0.2)
[2017-05-26] MEDS: POTASSIUM CHLORIDE 20 mEq IN WATER 100ML 20 MEQ/100 ML BAG IV SCH ×2 (09:07→11:14)
[2017-05-26] MEDS: PROTONIX 40 MG IV IV SCH (09:07)
[2017-05-26] MEDS: LOPRESSOR 5 MG/5 ML INJECTION IV PRN (11:59)
[2017-05-26 12:29] LABS: ANION GAP 16.5 MEQ/L (5-15); BLOOD UREA NITROGEN 13 mg/dL (9-20); CHLORIDE 104 mEq/L (98-107); Carbon Dioxide 23.2 mEq/L (21-32); Glucose 146 MG/DL (70-110); Potassium 3.9 mEq/L (3.5-5.1); SODIUM 140 mEq/L (136-145)
[2017-05-26] MEDS: Zosyn 3.375GM/100 Ml D5W 3.375 GM/100 ML IVPB IV SCH ×2 (12:50→18:21)
[2017-05-26 17:34] LABS: ANION GAP 12.7 MEQ/L (5-15); BLOOD UREA NITROGEN 11 mg/dL (9-20); CHLORIDE 105 mEq/L (98-107); Carbon Dioxide 25.3 mEq/L (21-32); Glucose 190 MG/DL (70-110); Potassium 3.6 mEq/L (3.5-5.1); SODIUM 139 mEq/L (136-145)
[2017-05-26] MEDS ORDERED: Lantus Insulin SQ ONE (18:15)
--- NOTE | 2017-05-26 19:51 | XRAY ---
Indication: Nausea and vomiting for 2 days. Comparison: Chest exam April 15, 2017. 2 views of the abdomen nonacute and nonobstructed. Solid organs and osseous structures unremarkable. Single one view chest again demonstrates normal heart, lungs, and bony thorax. Impression: Negative abdomen. Stable normal one view chest. Comment: Preliminary interpretation was made by [facility]. No discrepancy.
[2017-05-26] MEDS ORDERED: Lantus Insulin SQ SCH (22:00)
[2017-05-27] MEDS: LOPRESSOR 5 MG/5 ML INJECTION IV PRN ×3 (03:25→20:07)
[2017-05-27] MEDS: Zosyn 3.375GM/100 Ml D5W 3.375 GM/100 ML IVPB IV SCH ×5 (03:25→23:52)
[2017-05-27] MEDS: Zofran 4 MG/2 ML VIAL IV PRN ×2 (03:34→08:10)
[2017-05-27 05:41] LABS: ANION GAP 11.6 MEQ/L (5-15); BLOOD UREA NITROGEN 8 mg/dL (9-20); CHLORIDE 105 mEq/L (98-107); Carbon Dioxide 27.1 mEq/L (21-32); Glucose 177 MG/DL (70-110); Potassium 3.4 mEq/L (3.5-5.1); SODIUM 140 mEq/L (136-145)
[2017-05-27 05:55] LABS: BASOPHIL % 0.2 % (0.0-0.4); Eosinophil % 1.1 % (0.00-5.0); Granulocytes % 79.2 % (36.0-66.0); Lymphocytes % 10.8 % (24.0-44.0); Mean Corpuscular Hemoglobin 29.8 pg (26-32); Monocytes % 8.7 % (0.0-12.0); Platelet Count 315 K/mm3 (150-450); Red Blood Count 4.29 M/mm3 (4.1-5.6); Red Cell Distribution Width 12.2 % (11.5-14.0); White Blood Count 13.3 K/mm3 (4.0-10.5)
[2017-05-27] MEDS: Dextrose 5% -0.45 NaCl 1000 ML 1,000 ML IV SCH ×2 (06:45→20:24)
--- NOTE | 2017-05-27 07:48 | HP ---
HISTORY OF PRESENT ILLNESS: This is a 31 year-old patient of Dr. Quinones with history of diabetes type 1 who presented to the emergency department with vomiting. He reports that it started suddenly last night. He does not give much history. When asked if he has abdominal pain he said "No" but then on his exam he said it is tender throughout worse in the right upper quadrant. He denies any sick contacts. He denies any diarrhea. He denies any chest pain or shortness of breath. REVIEW OF SYSTEMS: Further review of systems is limited as he takes multiple times asking questions to get answers. MEDICATIONS: He is on Lantus 15 units b.i.d., NovoLog 10 units t.i.d. with his meals. ALLERGIES: NKDA. SOCIAL HISTORY: He reports the only person at home is his brother's . He denies tobacco. He does smoke marijuana. He denies methamphetamine, cocaine, alcohol or any other illicit drugs. FAMILY HISTORY: Unobtainable at this time. PHYSICAL EXAMINATION: VITAL SIGNS: Temperature current 98.3F, temperature max 98.3F, heart rate 99 to 111, respiratory rate 10 to 24, blood pressure 153 to 191 over 97 to 107, weight 63.4 kg. Oxygen saturation 99% on room air. GENERAL: The patient is lying in bed with emesis bag in hand. He will answer questions. He has nausea in between doing so. CVS: He is tachycardic with a regular rhythm. No murmurs, gallops or rubs are appreciated. CHEST: Clear to auscultation bilaterally. No crackles or wheezes. ABDOMEN: There is normal bowel sounds. Soft, no distention. Mild tenderness throughout. No guarding. No rigidity. EXTREMITIES: No clubbing, cyanosis or edema. SKIN: Warm, dry and intact. LABORATORY DATA AND TESTS: On admission his white blood cell count was 8,500 and this morning it is 18,500. His glucose this morning is 157. Anion gap 15. UA in the emergency room had large ketones, 1,000 glucose. Urine tox was positive for marijuana. ASSESSMENT AND PLAN: 1) DIABETIC KETOACIDOSIS: He was placed on insulin drip last night. He had gotten over 2 liters of normal saline in the emergency room. His anion gap is correcting, will plan to continue the insulin drip at this time as he is unable to take medication by mouth. 2) VOMITING. This may be due to the diabetic ketoacidosis or due to something going on with his abdomen. 3) ABDOMINAL PAIN: I will ask for an acute abdominal series and also gallbladder ultrasound today. 4) LEUKOCYTOSIS: For his abdominal pain and white blood cell count I am going to go ahead and place him on Zosyn. 5) HYPERTENSION: I will start him on metoprolol IV as needed.
--- NOTE | 2017-05-27 08:32 | XRAY ---
Indication: Abdomen pain. Nausea and vomiting. Two-dimensional right upper quadrant abdominal sonogram performed. Comparison: None Visualized portions of the gallbladder, liver, pancreas, and right kidney appear sonographically unremarkable. Common bile duct measures 2.3 mm. Right kidney measures 12 cm in length. No ascites. Impression: Negative gallbladder sonogram.
[2017-05-27] MEDS: PROTONIX 40 MG IV IV SCH (09:10)
[2017-05-27] MEDS: Phenergan 25 MG INJ IV PRN ×2 (09:27→20:07)
--- NOTE | 2017-05-27 10:11 | PCM.NOTE ---
Date and Time: 05/27/17 1007 Subjective Assessment: Pt was not vomiting much overnight but started vomiting again when ultrasound came this morning. He is not drinking at all. He is c/o abd pain 11/26. - Review of Systems Constitutional: No Fever Abdominal/Gastrointestinal: Abdominal Pain, Vomiting Objective Exam General Appearance: mild distress Neurologic Exam: alert, oriented x 3, cooperative Skin Exam: normal color, warm, dry Respiratory Exam: normal breath sounds, lungs clear, No crackles/rales, No rhonchi, No wheezing Cardiovascular Exam: regular rate/rhythm, normal heart sounds, No murmur OBJECTIVE DATA Vital Signs: Vital Signs - 24 hr Temp Pulse Resp BP Pulse Ox 05/27/17 08:00 97.5 F 83 16 155/108 99 05/27/17 04:00 83 05/27/17 03:00 74 16 155/104 05/27/17 01:00 97.6 F 94 H 14 148/97 05/27/17 00:01 86 05/26/17 23:00 98.5 F 94 H 16 145/96 95 05/26/17 21:00 98.6 F 90 18 120/81 97 05/26/17 20:00 95 H 05/26/17 19:25 98.7 F 95 H 14 117/80 98 05/26/17 17:00 98.3 F 94 H 15 114/75 97 05/26/17 16:00 88 05/26/17 15:00 96 H 12 144/94 98 05/26/17 13:00 98.0 F 93 H 18 129/94 99 05/26/17 11:00 93 H 17 112/75 96 Pain Assessment - Last Documented Pain Intensity 0 Pain Scale Used 0-10 Pain Scale Intake and Output: Intake & Output 05/24/17 05/25/17 05/26/17 05/27/17 11:59 11:59 11:59 11:59 Intake Total 1374 2667 Output Total 673 1545 Balance 699 1122 Weight 63.4 kg 65.6 kg Lab Results: Accuchecks Date 05/26/17 Date 05/26/17 Date 05/26/17 Date 05/26/17 Date 05/26/17 Date 05/26/17 Time 06:00 Time 22:00 Time 22:00 Time 16:00 Time 15:00 Time 13:00 Accucheck Value: 140 Accucheck Value: 128 Accucheck Value: 122 Accucheck Value: 143 Accucheck Value: 184 Accucheck Value: 196 Accucheck Value: 191 Accucheck Value: 143 Accucheck Value: 134 Lab Results-Last 24 Hours 05/26/17 05/26/17 05/27/17 Range/Units 12:00 17:15 05:02 WBC 13.3 H (4.0-10.5) K/mm3 RBC 4.29 (4.1-5.6) M/mm3 Hgb 12.8 (12.5-18.0) gm/dl Hct 36.9 L (42-50) % MCV 86.0 (78-100) fl MCH 29.8 (26-32) pg MCHC 34.7 (32-36) g/dl RDW 12.2 (11.5-14.0) % Plt Count 315 (150-450) K/mm3 MPV 9.0 (6-9.5) fl Gran % 79.2 H (36.0-66.0) % Lymphocytes % 10.8 L (24.0-44.0) % Monocytes % 8.7 (0.0-12.0) % Eosinophils % 1.1 (0.00-5.0) % Basophils % 0.2 (0.0-0.4) % Basophils # 0.03 (0-0.4) Sodium 140 139 (136-145) mEq/L Potassium 3.9 3.6 (3.5-5.1) mEq/L Chloride 104 105 (98-107) mEq/L Carbon Dioxide 23.2 25.3 (21-32) mEq/L Anion Gap 16.5 H 12.7 (5-15) MEQ/L BUN 13 11 (9-20) mg/dL Creatinine 1.18 1.22 (0.55-1.30) mg/dl Estimated GFR > 60 > 60 ML/MIN Glucose 146 H 190 H (70-110) MG/DL Calcium 8.6 8.7 (8.5-10.1) mg/dL 05/27/17 Range/Units 05:02 WBC (4.0-10.5) K/mm3 RBC (4.1-5.6) M/mm3 Hgb (12.5-18.0) gm/dl Hct (42-50) % MCV (78-100) fl MCH (26-32) pg MCHC (32-36) g/dl RDW (11.5-14.0) % Plt Count (150-450) K/mm3 MPV (6-9.5) fl Gran % (36.0-66.0) % Lymphocytes % (24.0-44.0) % Monocytes % (0.0-12.0) % Eosinophils % (0.00-5.0) % Basophils % (0.0-0.4) % Basophils # (0-0.4) Sodium 140 (136-145) mEq/L Potassium 3.4 L (3.5-5.1) mEq/L Chloride 105 (98-107) mEq/L Carbon Dioxide 27.1 (21-32) mEq/L Anion Gap 11.6 (5-15) MEQ/L BUN 8 L (9-20) mg/dL Creatinine 1.12 (0.55-1.30) mg/dl Estimated GFR > 60 ML/MIN Glucose 177 H (70-110) MG/DL Calcium 8.6 (8.5-10.1) mg/dL Radiology Exams: Radiology Procedures Category Date Time Status ABDOMEN AND PELVIS W CONTRAST [CT] Routine Exams 05/27/17 09:15 Ordered GALLBLADDER [US] Urgent Exams 05/27/17 Completed OBSTR/ACUTE ABDOMEN SERIES Stat Exams 05/26/17 Completed Assessment/Plan (1) Dehydration Current Visit: Yes Status: Resolved Code(s): E86.0 - DEHYDRATION (2) Vomiting Current Visit: Yes Status: Acute Qualifiers: Vomiting type: cyclical vomiting Vomiting Intractability: intractable Nausea presence: with nausea Qualified Code(s): G43.A1 - Cyclical vomiting, intractable Assessment & Plan: Unsure the etiology Code(s): R11.10 - VOMITING, UNSPECIFIED (3) Abdominal pain Current Visit: No Status: Acute Qualifiers: Abdominal location: generalized Qualified Code(s): R10.84 - Generalized abdominal pain Assessment & Plan: Was admitted to hospital last month with similar complaint, no CT done at that time as it was precipitated by drug abuse and resolved spontaneously. This episode has no known instigating factor and is persistent. CT abd pelvis ordered. Code(s): R10.9 - UNSPECIFIED ABDOMINAL PAIN (4) Uncontrolled diabetes mellitus Current Visit: No Status: Acute Code(s): E11.65 - TYPE 2 DIABETES MELLITUS WITH HYPERGLYCEMIA
[2017-05-27] MEDS: NovoLOG Insulin SQ PRN ×3 (11:26→21:49)
--- NOTE | 2017-05-27 11:30 | XRAY ---
Indication: Nausea and vomiting. Negative gallbladder sonogram. Multiple contiguous axial images obtained through the abdomen and pelvis using 80 cc Isovue 370 contrast only. Comparison: October 10, 2016. Lung bases again clear. Heart is not enlarged. Noncontrasted stomach and bowel loops appear nonobstructed. Normal appendix. No free fluid/air. New Giron catheter in situ. Remaining liver, gallbladder, pancreas, spleen, adrenal glands, kidneys, ureters, bladder, and aorta appear normal in CT appearance and attenuation. No pathologic retroperitoneal lymphadenopathy. Osseous structures intact again with bilateral L5 spondylolysis without spondylolisthesis. Stable small focus of subcutaneous induration in the right lower quadrant abdominal wall. Impression: New Giron catheter in situ. Stable right lower quadrant abdominal wall induration and L5 spondylolysis without spondylolisthesis. Remaining CT abdomen/pelvis with contrast exam is negative. CT DI 9.88
[2017-05-28] MEDS: NovoLOG Insulin SQ PRN ×6 (02:09→22:30)
[2017-05-28] MEDS: Zosyn 3.375GM/100 Ml D5W 3.375 GM/100 ML IVPB IV SCH ×4 (06:13→23:32)
[2017-05-28] MEDS: PROTONIX 40 MG IV IV SCH (07:34)
[2017-05-28] MEDS: Dextrose 5% -0.45 NaCl 1000 ML 1,000 ML IV SCH ×2 (08:06→21:56)
--- NOTE | 2017-05-28 08:22 | PCM.NOTE ---
Date and Time: 05/28/17 0816 Subjective Assessment: He is feeling less nauseated today, no vomiting overnight. Abd pain is much less, 2/10 today. - Review of Systems Constitutional: No Fever Abdominal/Gastrointestinal: Nausea Objective Exam General Appearance: no apparent distress, alert Neurologic Exam: oriented x 3, cooperative Skin Exam: warm, dry Respiratory Exam: normal breath sounds, lungs clear, No crackles/rales, No rhonchi, No wheezing Cardiovascular Exam: regular rate/rhythm, normal heart sounds, No murmur Gastrointestinal/Abdomen Exam: soft, normal bowel sounds, No tenderness, No distention, No mass OBJECTIVE DATA Vital Signs: Vital Signs - 24 hr Temp Pulse Resp BP Pulse Ox 05/28/17 06:00 97.4 F 69 21 129/76 97 05/28/17 04:00 71 05/28/17 02:00 131/84 05/28/17 00:01 80 05/28/17 00:00 97.8 F 80 21 110/66 98 05/27/17 20:00 97.5 F 86 16 163/106 99 05/27/17 16:00 98.4 F 82 19 130/92 97 05/27/17 12:00 98.4 F 76 19 142/99 98 Pain Assessment - Last Documented Pain Intensity 0 Pain Scale Used 0-10 Pain Scale Intake and Output: Intake & Output 05/25/17 05/26/17 05/27/17 05/28/17 11:59 11:59 11:59 11:59 Intake Total 1374 2667 1993 Output Total 675 1545 1550 Balance 699 1122 443 Weight 63.4 kg 65.6 kg 68.039 kg Lab Results: Accuchecks Date 05/28/17 Date 05/28/17 Date 05/27/17 Time 06:15 Time 02:06 Time 21:30 Accucheck Value: 253 Accucheck Value: 300 Accucheck Value: 294 Accucheck Value: 289 Accucheck Value: 243 Radiology Exams: Radiology Procedures Category Date Time Status ABDOMEN AND PELVIS W CONTRAST [CT] Routine Exams 05/27/17 09:15 Completed GALLBLADDER [US] Urgent Exams 05/27/17 Completed Assessment/Plan (1) Dehydration Current Visit: Yes Status: Resolved Code(s): E86.0 - DEHYDRATION (2) Vomiting Current Visit: Yes Status: Acute Qualifiers: Vomiting type: cyclical vomiting Vomiting Intractability: intractable Nausea presence: with nausea Qualified Code(s): G43.A1 - Cyclical vomiting, intractable Assessment & Plan: improved; he will try liquids today. transfer out of ICU to med surg. Discussed referral to GI specialist with pt, he says he would be unable to make the appointment. Code(s): R11.10 - VOMITING, UNSPECIFIED (3) Abdominal pain Current Visit: Yes Status: Resolved Qualifiers: Abdominal location: generalized Qualified Code(s): R10.84 - Generalized abdominal pain Assessment & Plan: CT abd/pelvis without acute findings. Code(s): R10.9 - UNSPECIFIED ABDOMINAL PAIN (4) Uncontrolled diabetes mellitus Current Visit: Yes Status: Acute Code(s): E11.65 - TYPE 2 DIABETES MELLITUS WITH HYPERGLYCEMIA
[2017-05-28] MEDS ORDERED: Lantus Insulin SQ SCH (09:00)
[2017-05-28 10:03] LABS: BASOPHIL % 0.6 % (0.0-0.4); Eosinophil % 4.3 % (0.00-5.0); Granulocytes % 60.5 % (36.0-66.0); Lymphocytes % 24.9 % (24.0-44.0); Mean Cell Volume 84.2 fl (78-100); Mean Corpuscular Hemoglobin 29.5 pg (26-32); Mean Platelet Volume 8.9 fl (6-9.5); Monocytes % 9.7 % (0.0-12.0); Platelet Count 287 K/mm3 (150-450); Red Blood Count 4.37 M/mm3 (4.1-5.6); Red Cell Distribution Width 11.6 % (11.5-14.0); White Blood Count 7.1 K/mm3 (4.0-10.5)
[2017-05-28 10:13] LABS: ALBUMIN 3.1 g/dL (3.4-5.0); ALKALINE PHOSPHATASE 84 U/L (46-116); ANION GAP 13.2 MEQ/L (5-15); BLOOD UREA NITROGEN 8 mg/dL (9-20); CHLORIDE 98 mEq/L (98-107); Carbon Dioxide 27.2 mEq/L (21-32); Glucose 295 MG/DL (70-110); Potassium 3.2 mEq/L (3.5-5.1); SGOT/AST 18 U/L (15-37); SGPT/ALT 14 U/L (12-78); SODIUM 135 mEq/L (136-145); Total Protein 6.1 gm/dL (6.4-8.2)
[2017-05-28] MEDS: Lantus Insulin SQ SCH (10:40)
[2017-05-28 16:33] VITALS: O2SAT 95
[2017-05-29] MEDS: NovoLOG Insulin SQ PRN ×2 (02:16→06:24)
[2017-05-29] MEDS: Zosyn 3.375GM/100 Ml D5W 3.375 GM/100 ML IVPB IV SCH (05:56)
[2017-05-29 07:17] VITALS: BP 114/73; PULSE 68
[2017-05-29] MEDS: PROTONIX 40 MG IV IV SCH (08:48)
[2017-05-29] MEDS: Lantus Insulin SQ SCH (08:48)
--- NOTE | 2017-05-29 08:52 | PCM.DS ---
Discharge Summary Date of Admission: 05/25/17 20:30 Admitting Physician: MILEY ATKINSON Consults: Consults on Case 05/26/17 07:28 Nutritional Consult Primary Care Provider: VALENTINA ESPINO Allergies Allergies No Known Drug Allergies Allergy (Verified 05/26/17 06:39) Hospital Summary - Hospital Course Hospital Course: Pt admitted with N/V and abd pain; Ct abd/pelvis nothing acute. He denies any recent methamphetamine use, as has happened in the past with same presentation. He slowly became less nauseated and last night admits his brother snuck him a sandwich and he tolerated that well. He still has a urinary catheter, so when it is discontinued today and he urinates he can be d/c'd home. If he comes again with unexplained N/V, would transfer to outside hospital for GI consultation as he cannot get up to the GI doctor outpatient. - Vitals & Intake/Output Vital Signs: Vital Signs Temperature 97.6 F 05/29/17 07:16 Pulse Rate 68 05/29/17 07:16 Respiratory Rate 18 05/29/17 07:16 Blood Pressure 114/73 05/29/17 07:16 O2 Sat by Pulse Oximetry 95 05/29/17 07:16 Oxygen-Last Documented O2 Percentage 2 Liters = 28% Intake & Output: Intake & Output 05/26/17 05/27/17 05/28/17 05/29/17 11:59 11:59 11:59 11:59 Intake Total 1374 2667 1993 5184 Output Total 675 1545 1550 2900 Balance 699 0593 701 2288 Weight 63.4 kg 65.6 kg 68.039 kg 69.853 kg - Lab Result Diagrams: 05/28/17 09:35 05/28/17 09:35 Lab Results-Last 24 Hrs: Accuchecks Date 05/29/17 Date 05/29/17 Date 05/28/17 Time 06:00 Time 02:00 Time 22:00 Accucheck Value: 207 Accucheck Value: 234 Accucheck Value: 288 Accucheck Value: 340 Accucheck Value: 379 Accucheck Value: 262 Lab Results-Last 24 Hours 05/28/17 05/28/17 Range/Units 09:35 09:35 WBC 7.1 (4.0-10.5) K/mm3 RBC 4.37 (4.1-5.6) M/mm3 Hgb 12.9 (12.5-18.0) gm/dl Hct 36.8 L (42-50) % MCV 84.2 (78-100) fl MCH 29.5 (26-32) pg MCHC 35.1 (32-36) g/dl RDW 11.6 (11.5-14.0) % Plt Count 287 (150-450) K/mm3 MPV 8.9 (6-9.5) fl Gran % 60.5 (36.0-66.0) % Lymphocytes % 24.9 (24.0-44.0) % Monocytes % 9.7 (0.0-12.0) % Eosinophils % 4.3 (0.00-5.0) % Basophils % 0.6 (0.0-0.4) % Basophils # 0.04 (0-0.4) Sodium 135 L (136-145) mEq/L Potassium 3.2 L (3.5-5.1) mEq/L Chloride 98 (98-107) mEq/L Carbon Dioxide 27.2 (21-32) mEq/L Anion Gap 13.2 (5-15) MEQ/L BUN 8 L (9-20) mg/dL Creatinine 0.94 (0.55-1.30) mg/dl Estimated GFR > 60 ML/MIN Glucose 295 H (70-110) MG/DL Calcium 8.6 (8.5-10.1) mg/dL Total Bilirubin 1.50 H (0.2-1.0) mg/dL AST 18 (15-37) U/L ALT 14 (12-78) U/L Alkaline Phosphatase 84 (46-116) U/L Serum Total Protein 6.1 L (6.4-8.2) gm/dL Albumin 3.1 L (3.4-5.0) g/dL Micro Results-Entire Visit: Accuchecks Date 05/29/17 Date 05/29/17 Date 05/28/17 Time 06:00 Time 02:00 Time 22:00 Accucheck Value: 207 Accucheck Value: 234 Accucheck Value: 288 Accucheck Value: 340 Accucheck Value: 379 Accucheck Value: 262 - Radiology Exams Ordered Rad Exams-Entire Visit: Radiology Procedures Category Date Time Status ABDOMEN AND PELVIS W CONTRAST [CT] Routine Exams 05/27/17 09:15 Completed - Procedures and Test Procedures and Tests throughout Hospitalization: Therapy Orders & Screens 05/26/17 08:03 EKG ROUTINE Comment: Diagnosis: DKA Discharge Exam General Appearance: no apparent distress, alert Neurologic Exam: oriented x 3, cooperative Skin Exam: normal color, warm, dry Neck Exam: normal inspection Respiratory Exam: normal breath sounds, lungs clear, No crackles/rales, No rhonchi, No wheezing Cardiovascular Exam: regular rate/rhythm, normal heart sounds, No murmur Gastrointestinal/Abdomen Exam: soft, normal bowel sounds, No tenderness, No distention, No mass Extremity Exam: normal inspection, No pedal edema, No swelling Back Exam: normal inspection Final Diagnosis/Problem List - Final Discharge Diagnosis/Problem (1) Dehydration Current Visit: Yes Status: Resolved (2) Vomiting Current Visit: Yes Status: Resolved Assessment & Plan: If he presents again with same symtpoms will transfer out to GI if possible. home on antibiotics (treated for presumed colitis). (3) Abdominal pain Current Visit: Yes Status: Resolved (4) Uncontrolled diabetes mellitus Current Visit: Yes Status: Chronic - Discharge Disposition: Home, Self-Care Condition: Good Prescriptions: New Amoxicillin/Potassium Clav [Augmentin 875-125 Tablet] 875 mg PO BID #20 tablet Continue Insulin Glargine [Lantus Insulin] 15 unit SQ BID Insulin Aspart [NovoLOG Insulin] 10 units SQ AC Additional Instructions: You have diabetic ketoacidosis with vomiting and dehydration. You were given Zofran 8 mg and Phenergan 25 mg by IV in addition to 2 L of fluid. You're being admitted per Dr. Atkinson. Follow up with: VALENTINA ESPINO [Primary Care Provider] - Forms: Patient Portal Information
== END 2017-05-29 11:10 | disposition home or self-care (01) | DRG 640 ==
LOC: ED 16:27 → ICU 20:30 → MED SURG 05-28 08:56
PROVIDERS: ADMIT Internal Medicine; ATTEND Family Medicine
DX: E86.0 Dehydration (principal); E10.10 Type 1 diabetes mellitus with ketoacidosis without coma; R11.2 Nausea with vomiting, unspecified; R10.9 Unspecified abdominal pain; D72.829 Elevated white blood cell count, unspecified; I10 Essential (primary) hypertension; Z79.4 Long term (current) use of insulin
CPT/HCPCS: 36000; 36415; 36600; 51702; 74022; 74177; 76705; 80048; 80053; 80076; 80307; 81000; 82150; 82375; 82803; 82805; 82947; 82962; 83605; 83690; 83735; 84484; 85025; 87086; 93005; 93041; 96360; 96361; 96374; 96375; 96376; 99285; G0481; J1815; J2405; J2543; J2550; J3475; J3480; A9270-GY

== ENCOUNTER 2017-10-15 11:24 | Inpatient (IN) | payer MEDICAID, OTHER ==
[2017-10-15] MEDS ORDERED: Sodium Chloride 0.9% 1000 ML 1,000 ML ONE (11:38)
[2017-10-15] MEDS ORDERED: Lactated Ringers 1,000 ML IV ONE ×4 (11:46→12:17)
[2017-10-15] MEDS ORDERED: Sodium Chloride 0.9% 1000 ML 1,000 ML IV STA (11:52)
[2017-10-15 11:56] LABS: BASOPHIL % 0.1 % (0.0-0.4); Basophil (Absolute #) 0.02 (0-0.4); Eosinophil (Absolute #) 0 (0-0.5); Granulocyte Absolute (ANC) 17.82 (1.4-6.9); Granulocytes % 91.8 % (36.0-66.0); Hemoglobin 15.2 gm/dl (12.5-18.0); Lymphocyte (Absolute #) 0.82 (1.0-4.6); Lymphocytes % 4.2 % (24.0-44.0); Mean Cell Volume 86.3 fl (78-100); Mean Corpuscular Hemoglobin 29.8 pg (26-32); Mean Corpuscular Hgb Concent. 34.5 g/dl (32-36); Monocyte (Absolute #) 0.75 (0.0-1.3); Monocytes % 3.9 % (0.0-12.0); Platelet Count 488 K/mm3 (150-450); Red Cell Distribution Width 12.4 % (11.5-14.0); White Blood Count 19.4 K/mm3 (4.0-10.5)
--- NOTE | 2017-10-15 11:56 | ERPHSYRPT ---
- History of Present Illness Time Seen by Provider: 10/15/17 11:45 Source: patient Patient Subjective Stated Complaint: vomiting since last night. bs was over 200 last night. has not checked sugar today. Triage Nursing Assessment: ambulated to room per self holding abd. skin w/d, pale, resp nonlabored. patient not making eye contact. abd soft. Physician History: CC: vomiting Hx: 32 y/o patient with hx of IDDM and noncompliance with prior DKA. He has vomiting since last night. He has high blood sugar. He has pain. Denies drug use except THC. No fever or chills. No diarrhea. Normal urination. He has chest pain. Timing/Duration: yesterday Severity: moderate Allergies/Adverse Reactions: No Known Drug Allergies Allergy (Verified 05/26/17 06:39) Home Medications: Insulin Glargine [Lantus Insulin] 15 unit SQ BID 04/16/17 [History] Insulin Aspart [NovoLOG Insulin] 10 units SQ AC 05/26/17 [History] Hx Tetanus, Diphtheria Vaccination/Date Given: Yes Hx Influenza Vaccination/Date Given: No Hx Pneumococcal Vaccination/Date Given: No - Review of Systems Constitutional: Fatigue, Malaise, Weakness, No Fever, No Chills Eyes: No Symptoms Ears, Nose, & Throat: No Symptoms Respiratory: No Cough, No Dyspnea Cardiac: Chest Pain, No Edema, No Syncope Abdominal/Gastrointestinal: Abdominal Pain, Nausea, Vomiting, No Diarrhea Genitourinary Symptoms: No Dysuria Musculoskeletal: Myalgias Skin: No Rash Neurological: No Headache All Other Systems: Reviewed and Negative - Past Medical History Pertinent Past Medical History: Yes Neurological History: No Pertinent History ENT History: No Pertinent History Cardiac History: No Pertinent History Respiratory History: No Pertinent History Endocrine Medical History: Diabetes Type I Musculoskeletal History: No Pertinent History GI Medical History: No Pertinent History History: No Pertinent History Psycho-Social History: Depression Male Reproductive Disorders: No Pertinent History - Past Surgical History Past Surgical History: No Neuro Surgical History: No Pertinent History Cardiac: No Pertinent History Respiratory: No Pertinent History Gastrointestinal: No Pertinent History Genitourinary: No Pertinent History Musculoskeletal: No Pertinent History Male Surgical History: No Pertinent History Other Surgical History: PT SHAKES HEAD "NO" WHEN ASKED IF HE HAS EVER HAD SURGERY - Social History Smoking Status: Former smoker Exposure to second hand smoke: No Drug Use: marijuana, methamphetamines Patient Lives Alone: No (mother dropped him off) - Nursing Vital Signs Nursing Vital Signs: Initial Vital Signs Temperature 97 F 10/15/17 11:41 Pulse Rate 110 H 10/15/17 11:41 Respiratory Rate 20 10/15/17 11:41 Blood Pressure 159/99 10/15/17 11:41 O2 Sat by Pulse Oximetry 98 10/15/17 11:41 Pain Scale Pain Intensity 8 - Physical Exam General Appearance: alert, thin Eye Exam: PERRL/EOMI Ears, Nose, Throat Exam: dry mucous membranes Neck Exam: normal inspection, non-tender, supple Respiratory Exam: normal breath sounds Cardiovascular Exam: regular rate/rhythm, tachycardia Gastrointestinal/Abdomen Exam: soft, No tenderness, No distention, No mass, No guarding Male Genitalia Exam: normal genitalia, No testicular tenderness Back Exam: normal inspection Extremity Exam: normal inspection, normal range of motion Neurologic Exam: alert, oriented x 3, cooperative, organ tuner II-XII nml as tested, sensation nml, No motor deficits Skin Exam: warm, dry, No rash SpO2 Interpretation: normal SpO2: 98 Oxygen Delivery: Room Air - Course Nursing assessment & vital signs reviewed: Yes EKG Interpreted by Me: RATE (111), Sinus Tach, NORMAL AXIS, NORMAL INTERVALS ( QTc 485), Other (mildly peaked T waves) Ordered Tests: Active Orders 24 hr Category Date Time Status Electronic Equipment Trades Worker STAT Care 10/15/17 11:45 Active Clean Catch Urine Specimen STAT Care 10/15/17 11:45 Active EKG-ER Only STAT Care 10/15/17 11:45 Active IV Insertion STAT Care 10/15/17 11:45 Active IV Insertion-2nd Peripheral STAT Care 10/15/17 11:56 Active Pulse Oximetry (ED) STAT Care 10/15/17 11:45 Active CHEST 1 VIEW (PORTABLE) Stat Exams 10/15/17 11:52 Completed BLOOD CULTURE Stat Lab 10/15/17 12:08 Ordered CBC W DIFF Stat Lab 10/15/17 11:56 Completed CMP Stat Lab 10/15/17 11:56 Completed Glucose,Critical Care Urgent Lab 10/15/17 12:00 Results LIPASE Stat Lab 10/15/17 12:06 Completed Lactic Acid Urgent Lab 10/15/17 12:00 Results MAGNESIUM Stat Lab 10/15/17 11:56 Completed TROPONIN Q3H Lab 10/15/17 11:56 Completed TROPONIN Q3H Lab 10/15/17 15:00 Ordered TROPONIN Q3H Lab 10/15/17 18:00 Ordered TROPONIN Q3H Lab 10/15/17 21:00 Ordered TROPONIN Q3H Lab 10/16/17 00:00 Ordered UA W/ MICROSCOPIC Stat Lab 10/15/17 11:56 Completed Urine Triage Profile Stat Lab 10/15/17 11:56 Completed VENOUS BLOOD GAS Urgent Lab 10/15/17 12:00 Results Medication Summary Generic Name Dose Route Start Last Admin Trade Name Freq PRN Reason Stop Dose Admin Insulin Human Regular 100 101 mls @ 6.06 mls/hr 10/15/17 12:15 10/15/17 12:32 units/ Sodium Chloride IV 11/14/17 12:14 6 units/hr .[id number] XIN 6.06 mls/hr 6 UNITS/HR Administration Discontinued Medications Generic Name Dose Route Start Last Admin Trade Name Freq PRN Reason Stop Dose Admin Sodium Chloride Confirm 10/15/17 11:38 Sodium Chloride 0.9% 1000 Ml Administered 10/15/17 11:39 Dose 1,000 mls @ ud .ROUTE .STK-MED ONE Lactated Ringer's 1,000 mls @ 999 mls/hr 10/15/17 11:46 10/15/17 12:13 Lactated Ringers IV 10/15/17 12:46 999 mls/hr .Q1H1M ONE Administration Sodium Chloride 1,000 mls @ 999 mls/hr 10/15/17 11:52 10/15/17 11:55 Sodium Chloride 0.9% 1000 Ml IV 10/15/17 12:52 999 mls/hr .Q1H1M STA Administration Lactated Ringer's Confirm 10/15/17 12:02 Lactated Ringers Administered 10/15/17 12:03 Dose 1,000 mls @ ud IV .STK-MED ONE Piperacillin Sod/Tazobactam Sod 3.375 gm in 100 mls @ 200 mls/hr 10/15/17 12: 09 10/15/17 12:18 Zosyn 3.375gm/100 Ml D5w IV 10/15/17 12:38 200 mls/hr STAT STA Administration Lactated Ringer's 1,000 mls @ 999 mls/hr 10/15/17 12:11 10/15/17 12:20 Lactated Ringers IV 10/15/17 13:11 999 mls/hr .Q1H1M ONE Administration Piperacillin Sod/Tazobactam Sod Confirm 10/15/17 12:15 Zosyn 3.375gm/100 Ml D5w Administered 10/15/17 12:16 Dose 3.375 gm in 100 mls @ ud IV .STK-MED ONE Lactated Ringer's Confirm 10/15/17 12:17 Lactated Ringers Administered 10/15/17 12:18 Dose 1,000 mls @ ud IV .STK-MED ONE Lab/Rad Data: Laboratory Result Diagrams 10/15/17 11:56 10/15/17 11:56 Laboratory Results 10/15/17 10/15/17 10/15/17 Range/Units 12:06 12:00 11:56 WBC (4.0-10.5) K/mm3 RBC (4.1-5.6) M/mm3 Hgb (12.5-18.0) gm/dl Hct (42-50) % MCV (78-100) fl MCH (26-32) pg MCHC (32-36) g/dl RDW (11.5-14.0) % Plt Count (150-450) K/mm3 MPV (6-9.5) fl Gran % (36.0-66.0) % Lymphocytes % (24.0-44.0) % Monocytes % (0.0-12.0) % Eosinophils % (0.00-5.0) % Basophils % (0.0-0.4) % Basophils # (0-0.4) VBG pH 7.30 L (7.32-7.42) VBG pCO2 at Pat Temp 41 L (42-55) mm/Hg VBG pO2 at Pat Temp 44 H (25-40) mm/Hg VBG HCO3 20.2 L (22-28) meq/L VBG O2 Sat (Jalen) 82.5 L (95-100) VBG Base Excess -5.9 L (-2.0-2.0) VBG Hemoglobin 15.6 VBG Carboxyhemoglobin 3.1 (0.0-6.9) % T HGB POC Potassium 4.9 (3.5-5.1) Sodium (136-145) mEq/L Potassium (3.5-5.1) mEq/L Chloride (98-107) mEq/L Carbon Dioxide (21-32) mEq/L Anion Gap (5-15) MEQ/L BUN (9-20) mg/dL Creatinine (0.55-1.30) mg/dl Estimated GFR ML/MIN Glucose 700 H* (70-110) MG/DL Lactic Acid 5.9 H (0.4-2.0) Calcium (8.5-10.1) mg/dL Magnesium (1.8-2.4) mg/dL Total Bilirubin (0.2-1.0) mg/dL AST (15-37) U/L ALT (12-78) U/L Alkaline Phosphatase (46-116) U/L Troponin I < 0.017 (0.000-0.056) ng/ml Serum Total Protein (6.4-8.2) gm/dL Albumin (3.4-5.0) g/dL Lipase 41 L (73-393) U/L Ur Collection Type Urine Color (YELLOW) Urine Appearance (CLEAR) Urine pH (5-6) Ur Specific [place] (1.005-1.025) Urine Protein (Negative) Urine Ketones (NEGATIVE) Urine Blood (0-5) Tomas/ul Urine Nitrite (NEGATIVE) Urine Bilirubin (NEGATIVE) Urine Urobilinogen (0-1) mg/dL Ur Leukocyte Esterase (NEGATIVE) Urine Microscopic RBC (0-2) /HPF Ur Epithelial Cells (FEW) /HPF Urine Bacteria (NEGATIVE) /HPF Urine Mucus (NEGATIVE) /HPF Urine Culture Reflexed (NO) Urine Glucose (NEGATIVE) mg/dL Urine Opiates Level (NEGATIVE) Ur Methadone (NEGATIVE) Urine Barbiturates (NEGATIVE) Ur Phencyclidine (PCP) (NEGATIVE) Urine Amphetamine (NEGATIVE) U Benzodiazepine Level (NEGATIVE) Urine Cocaine (NEGATIVE) Urine Marijuana (THC) (NEGATIVE) Specimen Received 10/15/17 10/15/17 10/15/17 Range/Units 11:56 11:56 11:56 WBC 19.4 H (4.0-10.5) K/mm3 RBC 5.10 (4.1-5.6) M/mm3 Hgb 15.2 (12.5-18.0) gm/dl Hct 44.0 (42-50) % MCV 86.3 (78-100) fl MCH 29.8 (26-32) pg MCHC 34.5 (32-36) g/dl RDW 12.4 (11.5-14.0) % Plt Count 488 H (150-450) K/mm3 MPV 9.0 (6-9.5) fl Gran % 91.8 H (36.0-66.0) % Lymphocytes % 4.2 L (24.0-44.0) % Monocytes % 3.9 (0.0-12.0) % Eosinophils % 0.0 (0.00-5.0) % Basophils % 0.1 (0.0-0.4) % Basophils # 0.02 (0-0.4) VBG pH (7.32-7.42) VBG pCO2 at Pat Temp (42-55) mm/Hg VBG pO2 at Pat Temp (25-40) mm/Hg VBG HCO3 (22-28) meq/L VBG O2 Sat (Jalen) (95-100) VBG Base Excess (-2.0-2.0) VBG Hemoglobin VBG Carboxyhemoglobin (0.0-6.9) % T HGB POC Potassium (3.5-5.1) Sodium 139 (136-145) mEq/L Potassium 4.7 (3.5-5.1) mEq/L Chloride 92 L (98-107) mEq/L Carbon Dioxide 18.9 L (21-32) mEq/L Anion Gap 32.9 H (5-15) MEQ/L BUN 26 H (9-20) mg/dL Creatinine 1.75 H (0.55-1.30) mg/dl Estimated GFR 48 ML/MIN Glucose 669 H* (70-110) MG/DL Lactic Acid (0.4-2.0) Calcium 9.9 (8.5-10.1) mg/dL Magnesium 2.1 (1.8-2.4) mg/dL Total Bilirubin 1.50 H (0.2-1.0) mg/dL AST 22 (15-37) U/L ALT 28 (12-78) U/L Alkaline Phosphatase 131 H (46-116) U/L Troponin I (0.000-0.056) ng/ml Serum Total Protein 8.3 H (6.4-8.2) gm/dL Albumin 4.1 (3.4-5.0) g/dL Lipase (73-393) U/L Ur Collection Type Urine Color (YELLOW) Urine Appearance (CLEAR) Urine pH (5-6) Ur Specific [place] (1.005-1.025) Urine Protein (Negative) Urine Ketones (NEGATIVE) Urine Blood (0-5) Tomas/ul Urine Nitrite (NEGATIVE) Urine Bilirubin (NEGATIVE) Urine Urobilinogen (0-1) mg/dL Ur Leukocyte Esterase (NEGATIVE) Urine Microscopic RBC (0-2) /HPF Ur Epithelial Cells (FEW) /HPF Urine Bacteria (NEGATIVE) /HPF Urine Mucus (NEGATIVE) /HPF Urine Culture Reflexed (NO) Urine Glucose (NEGATIVE) mg/dL Urine Opiates Level NEG. (NEGATIVE) Ur Methadone NEG. (NEGATIVE) Urine Barbiturates NEG. (NEGATIVE) Ur Phencyclidine (PCP) NEG. (NEGATIVE) Urine Amphetamine NEG. (NEGATIVE) U Benzodiazepine Level NEG. (NEGATIVE) Urine Cocaine NEG. (NEGATIVE) Urine Marijuana (THC) NEG. (NEGATIVE) Specimen Received 10/15/17 Range/Units 11:56 WBC (4.0-10.5) K/mm3 RBC (4.1-5.6) M/mm3 Hgb (12.5-18.0) gm/dl Hct (42-50) % MCV (78-100) fl MCH (26-32) pg MCHC (32-36) g/dl RDW (11.5-14.0) % Plt Count (150-450) K/mm3 MPV (6-9.5) fl Gran % (36.0-66.0) % Lymphocytes % (24.0-44.0) % Monocytes % (0.0-12.0) % Eosinophils % (0.00-5.0) % Basophils % (0.0-0.4) % Basophils # (0-0.4) VBG pH (7.32-7.42) VBG pCO2 at Pat Temp (42-55) mm/Hg VBG pO2 at Pat Temp (25-40) mm/Hg VBG HCO3 (22-28) meq/L VBG O2 Sat (Jalen) (95-100) VBG Base Excess (-2.0-2.0) VBG Hemoglobin VBG Carboxyhemoglobin (0.0-6.9) % T HGB POC Potassium (3.5-5.1) Sodium (136-145) mEq/L Potassium (3.5-5.1) mEq/L Chloride (98-107) mEq/L Carbon Dioxide (21-32) mEq/L Anion Gap (5-15) MEQ/L BUN (9-20) mg/dL Creatinine (0.55-1.30) mg/dl Estimated GFR ML/MIN Glucose (70-110) MG/DL Lactic Acid (0.4-2.0) Calcium (8.5-10.1) mg/dL Magnesium (1.8-2.4) mg/dL Total Bilirubin (0.2-1.0) mg/dL AST (15-37) U/L ALT (12-78) U/L Alkaline Phosphatase (46-116) U/L Troponin I (0.000-0.056) ng/ml Serum Total Protein (6.4-8.2) gm/dL Albumin (3.4-5.0) g/dL Lipase (73-393) U/L Ur Collection Type VOID Urine Color YELLOW (YELLOW) Urine Appearance CLEAR (CLEAR) Urine pH 5.0 (5-6) Ur Specific [place] 1.010 (1.005-1.025) Urine Protein NEGATIVE (Negative) Urine Ketones LARGE (NEGATIVE) Urine Blood 50 (0-5) Tomas/ul Urine Nitrite NEGATIVE (NEGATIVE) Urine Bilirubin NEGATIVE (NEGATIVE) Urine Urobilinogen NORMAL (0-1) mg/dL Ur Leukocyte Esterase NEGATIVE (NEGATIVE) Urine Microscopic RBC 0-2 (0-2) /HPF Ur Epithelial Cells RARE (FEW) /HPF Urine Bacteria FEW (NEGATIVE) /HPF Urine Mucus SLIGHT (NEGATIVE) /HPF Urine Culture Reflexed NO (NO) Urine Glucose 1000 (NEGATIVE) mg/dL Urine Opiates Level (NEGATIVE) Ur Methadone (NEGATIVE) Urine Barbiturates (NEGATIVE) Ur Phencyclidine (PCP) (NEGATIVE) Urine Amphetamine (NEGATIVE) U Benzodiazepine Level (NEGATIVE) Urine Cocaine (NEGATIVE) Urine Marijuana (THC) (NEGATIVE) Specimen Received 10/15/17 1200 - Progress Progress Note: 10/15/17 11:56 IVF bolus begun. Pt aware of DKA and risk of mortality. 10/15/17 13:24 No focal source of infection. Abd soft without point tenderness on recheck examination. IVF bolus almost complete. Abtx given. Insulin gtt started. Called Dr Atkinson (oc) office for ICU observation. Counseled pt/family regarding: lab results, diagnosis, need for follow-up, rad results - Departure Time of Disposition: 13:25 Departure Disposition: Observation (ICU Dr Atkinson) Clinical Impression: Diabetes mellitus type I, Diabetic ketoacidosis Condition: Serious Critical Care Time: Yes Critical Care Time(excluding separately billable procedures): 30-74 minutes Referrals: VALENTINA ESPINO [Primary Care Provider] -
[2017-10-15 12:07] LABS: Glucose,Critical Care 700 (70-110); Lactic Acid 5.9 (0.4-2.0); VBG BASE EXCESS -5.9 (-2.0-2.0); VBG CARBOXYHEMOGLOBIN 3.1 % T HGB (0.0-6.9); VBG HCO3- 20.2 meq/L (22-28); VBG HEMOGLOBIN 15.6; VBG O2 SATURATION 82.5 (95-100); VBG PCO2 41 mm/Hg (42-55); VBG PO2 44 mm/Hg (25-40); VBG POTASSIUM 4.9 (3.5-5.1)
[2017-10-15] MEDS ORDERED: Zosyn 3.375GM/100 Ml D5W 3.375 GM/100 ML IVPB IV STA (12:09)
[2017-10-15 12:12] LABS: Amphetamine,Urine NEG. (NEGATIVE); Barbiturate,Urine NEG. (NEGATIVE); Benzodiazepine,Urine NEG. (NEGATIVE); Cocaine,Urine NEG. (NEGATIVE); Methadone,Urine NEG. (NEGATIVE); Opiate,Urine NEG. (NEGATIVE); PCP,Urine NEG. (NEGATIVE); THC,Urine NEG. (NEGATIVE)
[2017-10-15 12:13] LABS: Appearance CLEAR (CLEAR); Bilirubin NEGATIVE (NEGATIVE); Blood 50 Ery/ul (0-5); Glucose 1000 mg/dL (NEGATIVE); Ketones LARGE (NEGATIVE); Leukocyte Esterase NEGATIVE (NEGATIVE); Nitrite NEGATIVE (NEGATIVE); Protein,Urine Dip NEGATIVE (Negative); Urobilinogen NORMAL mg/dL (0-1)
[2017-10-15 12:14] LABS: Bacteria FEW /HPF (NEGATIVE); Epithelial Cells RARE /HPF (FEW); Mucus SLIGHT /HPF (NEGATIVE)
[2017-10-15] MEDS ORDERED: Zosyn 3.375GM/100 Ml D5W 3.375 GM/100 ML IVPB IV ONE (12:15)
[2017-10-15 12:20] LABS: ALBUMIN 4.1 g/dL (3.4-5.0); ANION GAP 32.9 MEQ/L (5-15); BILIRUBIN,TOTAL 1.5 mg/dL (0.2-1.0); Calcium 9.9 mg/dL (8.5-10.1); Carbon Dioxide 18.9 mEq/L (21-32); Creatinine 1 1.75 mg/dl (0.55-1.30); Potassium 4.7 mEq/L (3.5-5.1); Total Protein 8.3 gm/dL (6.4-8.2)
--- NOTE | 2017-10-15 12:21 | XRAY ---
Indication: DKA. Comparison: May 26, 2017. Portable chest again demonstrates normal heart, lungs, and bony thorax.
[2017-10-15] MEDS: NOVOLIN R INSULIN (FOR DRIPS)** 100 UNITS in Sodium Chloride 0.9% 100 ML IVPB 100 ML IV SCH (12:32)
[2017-10-15 14:10] LABS: VBG BASE EXCESS -3.1 (-2.0-2.0); VBG CARBOXYHEMOGLOBIN 2.9 % T HGB (0.0-6.9); VBG HCO3- 21.2 meq/L (22-28); VBG HEMOGLOBIN 14.3; VBG O2 SATURATION 94.2 (95-100); VBG POTASSIUM 3.9 (3.5-5.1); VBG pH 7.39 (7.32-7.42)
[2017-10-15] MEDS ORDERED: K-LYTE 25 MEQ PO PRN (15:59)
[2017-10-15 16:27] LABS: ANION GAP 22.9 MEQ/L (5-15); BLOOD UREA NITROGEN 24 mg/dL (9-20); CHLORIDE 103 mEq/L (98-107); Calcium 9.4 mg/dL (8.5-10.1); Carbon Dioxide 21.9 mEq/L (21-32); Creatinine 1 1.54 mg/dl (0.55-1.30); Glucose 326 MG/DL (70-110); SODIUM 144 mEq/L (136-145); TROPONIN < 0.017 ng/ml (0.000-0.056)
[2017-10-15] MEDS ORDERED: TYLENOL 325 MG PO PRN (17:17)
[2017-10-15] MEDS: D5W/0.45NS W/ 20mEq KCl 1000 ML 1,000 ML IV SCH (17:40)
[2017-10-15] MEDS: Zofran 4 MG/2 ML VIAL IV PRN ×2 (17:40→22:28)
[2017-10-15] MEDS: Zosyn 3.375GM/100 Ml D5W 3.375 GM/100 ML IVPB IV SCH (18:00)
[2017-10-15] MEDS ORDERED: Zofran 4 MG/2 ML VIAL IV ONE (20:30)
[2017-10-15 21:07] LABS: ANION GAP 15.9 MEQ/L (5-15); BLOOD UREA NITROGEN 21 mg/dL (9-20); CHLORIDE 106 mEq/L (98-107); Calcium 9.2 mg/dL (8.5-10.1); Carbon Dioxide 27.3 mEq/L (21-32); Creatinine 1 1.35 mg/dl (0.55-1.30); Glucose 157 MG/DL (70-110); Potassium 3.8 mEq/L (3.5-5.1); SODIUM 145 mEq/L (136-145)
[2017-10-15] MEDS ORDERED: Lantus Insulin SQ SCH (22:00)
[2017-10-16] MEDS: D5W/0.45NS W/ 20mEq KCl 1000 ML 1,000 ML IV SCH ×3 (00:16→12:35)
[2017-10-16] MEDS: Zosyn 3.375GM/100 Ml D5W 3.375 GM/100 ML IVPB IV SCH ×5 (00:17→23:47)
[2017-10-16 00:46] LABS: ANION GAP 15.4 MEQ/L (5-15); BLOOD UREA NITROGEN 18 mg/dL (9-20); CHLORIDE 105 mEq/L (98-107); Calcium 8.6 mg/dL (8.5-10.1); Carbon Dioxide 26.7 mEq/L (21-32); Creatinine 1 1.13 mg/dl (0.55-1.30); Glucose 213 MG/DL (70-110); Potassium 4.2 mEq/L (3.5-5.1); SODIUM 143 mEq/L (136-145)
[2017-10-16] MEDS: Zofran 4 MG/2 ML VIAL IV PRN ×5 (02:39→23:47)
[2017-10-16 04:56] LABS: Granulocyte Absolute (ANC) 20.03 (1.4-6.9); Hematocrit 39.4 % (42-50); Hemoglobin 13.5 gm/dl (12.5-18.0); Mean Cell Volume 86.6 fl (78-100); Mean Corpuscular Hemoglobin 29.7 pg (26-32); Mean Corpuscular Hgb Concent. 34.3 g/dl (32-36); Mean Platelet Volume 8.7 fl (6-9.5); Platelet Count 455 K/mm3 (150-450); Red Blood Count 4.55 M/mm3 (4.1-5.6); Red Cell Distribution Width 12.7 % (11.5-14.0); White Blood Count 23.6 K/mm3 (4.0-10.5)
[2017-10-16 05:15] LABS: ANION GAP 15.3 MEQ/L (5-15); BLOOD UREA NITROGEN 16 mg/dL (9-20); CHLORIDE 104 mEq/L (98-107); Calcium 9.3 mg/dL (8.5-10.1); Carbon Dioxide 27.8 mEq/L (21-32); Creatinine 1 1.23 mg/dl (0.55-1.30); Glucose 151 MG/DL (70-110); Potassium 3.8 mEq/L (3.5-5.1); SODIUM 143 mEq/L (136-145)
--- NOTE | 2017-10-16 07:44 | HP ---
HISTORY OF PRESENT ILLNESS: This is a 32 year-old patient without a local physician who presented to the emergency department complaining of high blood sugar, abdominal pain. The emergency room doctor reported chest pain. The patient reports that he started to feel bad yesterday. He reports that he still has insulin at home but starting to wear out. He told us that he only comes to the hospital and gets scripts for insulin and states he cannot afford or have transportation to see a regular doctor for control of his type 1 diabetes. He reports that his belly pain is starting to feel better. He said it hurts kind of a little bit all over. He denies any fever at home. He reports a sore throat. He is unsure if he has had any sick contacts with Strep throat. REVIEW OF SYSTEMS: The patient answers questions appropriately but does not offer a lot of information. He had a lot of vomiting at home he reports. He denies any diarrhea. He has had the abdominal pain. He does not complain of any chest pain to me but did to the emergency room doctor. He denies any cough, rhinorrhea or shortness of breath. PAST MEDICAL HISTORY: Diabetes mellitus type 1, depression. PAST SURGICAL HISTORY: None. MEDICATIONS: He reports he takes Lantus 15 to 20 units every evening and short-acting insulin up to 10 units with his meals t.i.d. ALLERGIES: NKDA. SOCIAL HISTORY: He reports his brother lives at home with him. He denies any tobacco, alcohol or illicit drug use. He reports that he does smoke a lot of marijuana. FAMILY HISTORY: He reports his father committed suicide. His mother has thyroid problems. PHYSICAL EXAMINATION: VITAL SIGNS: Temperature current 98.7F, temperature max 98.0F, heart rate 107 to 112, respiratory rate 18 to 20, blood pressure 133 to 166 over 78 to 99, weight 64.2 kg. Oxygen saturation 93 to 94% on room air. GENERAL: The patient is lying in bed in no acute distress. He is alert and oriented. HEENT: He has erythema of his throat. No exudate. NECK: Supple without any lymphadenopathy. CVS: He is tachycardic with a regular rhythm. No murmurs, gallops or rubs are appreciated. CHEST: Clear to auscultation bilaterally. ABDOMEN: Diffusely tender. No guarding. No rigidity. Normal bowel sounds. EXTREMITIES: No clubbing, cyanosis or edema. SKIN: Warm, dry and intact. LABORATORY DATA AND TESTS: On admission his glucose is 669 and most recent one was 326. Creatinine 1.75 on admission and 1.54 at four hour repeat. Lactic acid was 5.9 on admission and 5 on repeat. Bilirubin 1.5. Alkaline phosphatase 130. AST and ALT were normal. Magnesium was 2.1. White blood cell count 19.4 with 91% granulocytes, PLT count 488,000, hemoglobin 15.2. Urine had large ketones, glucose 1,000. Urine tox was negative. EKG is sinus tachycardia with no ST-T wave changes. He has had two negative troponins. Blood cultures in lab. ASSESSMENT AND PLAN: 1) DIABETES TYPE 1 AND DIABETIC KETOACIDOSIS: He is currently in ICU on insulin drip. BMP's are ordered every four hours, will plan to start Lantus once his anion gap is normal and his glucose is less than 200. The patient does not seem to have a plan for having a regular doctor that he sees. Will check hemoglobin A1C. Will ask for discharge planning. 2) DEPRESSION: I offered the patient referral for counseling or medication and he declined both. 3) CHEST PAIN: He currently has serial troponins ordered, will continue to follow these. 4) ABDOMINAL PAIN: If this does not resolve with resolution of the diabetic ketoacidosis will consider gallbladder ultrasound while he is here in the hospital but most likely the abdominal pain is due to the diabetic ketoacidosis. 5) RULE OUT SEPSIS: He was started on Zosyn in the emergency room and will continue with this. I believe his lactic acid is probably elevated again from diabetic ketoacidosis. His blood pressure has been stable.
[2017-10-16 08:12] LABS: BAND 2 % (0.0-2.0); Lymphocytes 6 % (24-44); Monocyte 4 % (0.0-12.0); Neutrophils 88 % (36.-66.); Platelet Estimate NORMAL (NORMAL); Total Cells Counted 100
[2017-10-16] MEDS: Phenergan 25 MG INJ IV PRN ×3 (08:43→21:03)
[2017-10-16 08:52] LABS: Lactic Acid 2.1 (0.4-2.0)
[2017-10-16 09:01] LABS: ALBUMIN 3.9 g/dL (3.4-5.0); ALKALINE PHOSPHATASE 109 U/L (46-116); ANION GAP 15.3 MEQ/L (5-15); BLOOD UREA NITROGEN 15 mg/dL (9-20); CHLORIDE 103 mEq/L (98-107); Calcium 9.1 mg/dL (8.5-10.1); Carbon Dioxide 28.2 mEq/L (21-32); Creatinine 1 1.34 mg/dl (0.55-1.30); Glucose 139 MG/DL (70-110); Potassium 3.6 mEq/L (3.5-5.1); SGOT/AST 20 U/L (15-37); SGPT/ALT 24 U/L (12-78); SODIUM 143 mEq/L (136-145); Total Protein 8.2 gm/dL (6.4-8.2)
--- NOTE | 2017-10-16 09:04 | PCM.NOTE ---
Date and Time: 10/16/1759 Subjective Assessment: Patient reports continued nausea and has just thrown up. He denies any recent methamphetamine use. He denies abdominal pain when he eats when he is feeling well. He is not sure if he is passing gas. When asked he shakes his head yes that he is considering having a doctor as an outpatient to help with his diabetes management and keep him out of DKA. - Review of Systems Constitutional: Other (shivering) Respiratory: No Symptoms Abdominal/Gastrointestinal: Abdominal Pain, Nausea, Vomiting Genitourinary Symptoms: No Symptoms Musculoskeletal: No Symptoms Skin: No Symptoms Objective Exam General Appearance: other (nauseated and shivering) Neurologic Exam: alert, cooperative, normal mood/affect Skin Exam: normal color, warm, dry, No rash Respiratory Exam: normal breath sounds, lungs clear, No crackles/rales, No rhonchi, No wheezing Cardiovascular Exam: regular rate/rhythm, normal heart sounds, No murmur, No friction rub, No gallop Gastrointestinal/Abdomen Exam: soft, other (hypoactive bowel sounds; mild tenderness throughout), No distention, No mass, No guarding Extremity Exam: normal inspection, other (no c/c/e) OBJECTIVE DATA Vital Signs: Vital Signs - 24 hr Temp Pulse Resp BP Pulse Ox 10/16/17 07:19 98.6 F 90 18 148/97 97 10/16/17 06:00 98.2 F 94 H 23 125/86 96 10/16/17 04:00 99.0 F 113 H 14 160/95 94 L 10/16/17 03:58 93 H 10/16/17 03:55 18 10/16/17 02:00 97 H 16 130/92 96 10/16/17 00:59 142/80 10/16/17 00:01 109 H 10/16/17 00:00 98.7 F 105 H 20 160/95 98 10/15/17 22:00 98.8 F 102 H 16 145/85 97 10/15/17 20:00 98.5 F 108 H 20 130/92 99 10/15/17 19:52 18 10/15/17 18:00 107 H 15 128/86 98 10/15/17 15:33 98.7 F 112 H 18 157/93 98 10/15/17 14:54 109 H 18 133/78 98 10/15/17 13:26 98.0 F 110 H 18 164/99 99 10/15/17 13:25 98 10/15/17 12:25 107 H 20 166/94 99 10/15/17 11:48 98 10/15/17 11:41 97 F 110 H 20 159/99 98 Pain Assessment - Last Documented Pain Intensity 0 Pain Scale Used [facility] Intake and Output: Intake & Output 10/14/17 10/15/17 10/16/17 10/17/17 06:59 06:59 06:59 06:59 Intake Total 2491 Output Total 1425 Balance 1066 Weight 64.2 kg Lab Results: Accuchecks Date 10/16/17 Date 10/16/17 Date 10/16/1710/16/1710/16/17 Date 10/16/17 Date 10/16/17 Date 10/16/17 Date 10/16/1710/15/1710/15/17 Date 10/15/17 Date 10/15/1710/15/17 Time 08:05 Time 06:54 Time 06:02 Time 05:06 Time 04:08 Time 03:00 Time 02:00 Time 01:00 Time 00:00 Time 23:00 Time 22:00 Time 21:00 Time 20:00 Time 19:00 Accucheck Value: 171 Accucheck Value: 165 Accucheck Value: 152 Accucheck Value: 129 Accucheck Value: 118 Accucheck Value: 179 Accucheck Value: 189 Accucheck Value: 193 Accucheck Value: 161 Accucheck Value: 128 Accucheck Value: 127 Accucheck Value: 178 Accucheck Value: 182 Lab Results-Last 24 Hours 10/15/17 10/15/17 10/15/17 Range/Units 15:30 18:30 18:32 WBC (4.0-10.5) K/mm3 RBC (4.1-5.6) M/mm3 Hgb (12.5-18.0) gm/dl Hct (42-50) % MCV (78-100) fl MCH (26-32) pg MCHC (32-36) g/dl RDW (11.5-14.0) % Plt Count (150-450) K/mm3 MPV (6-9.5) fl Segmented Neutrophils (36.-66.) % Band Neutrophils (0.0-2.0) % Lymphocytes (Manual) (24-44) % Monocytes (Manual) (0.0-12.0) % Differential Comment Platelet Estimate (NORMAL) Sodium 144 (136-145) mEq/L Potassium 4.0 (3.5-5.1) mEq/L Chloride 103 (98-107) mEq/L Carbon Dioxide 21.9 (21-32) mEq/L Anion Gap 22.9 H (5-15) MEQ/L BUN 24 H (9-20) mg/dL Creatinine 1.54 H (0.55-1.30) mg/dl Estimated GFR 56 ML/MIN Glucose 326 H (70-110) MG/DL Lactic Acid (0.4-2.0) Calcium 9.4 (8.5-10.1) mg/dL Troponin I < 0.017 < 0.017 (0.000-0.056) ng/ml Streptococcus Screen NEGATIVE (Negative) 10/15/17 10/15/17 10/16/17 Range/Units 20:51 20:51 00:15 WBC (4.0-10.5) K/mm3 RBC (4.1-5.6) M/mm3 Hgb (12.5-18.0) gm/dl Hct (42-50) % MCV (78-100) fl MCH (26-32) pg MCHC (32-36) g/dl RDW (11.5-14.0) % Plt Count (150-450) K/mm3 MPV (6-9.5) fl Segmented Neutrophils (36.-66.) % Band Neutrophils (0.0-2.0) % Lymphocytes (Manual) (24-44) % Monocytes (Manual) (0.0-12.0) % Differential Comment Platelet Estimate (NORMAL) Sodium 145 (136-145) mEq/L Potassium 3.8 (3.5-5.1) mEq/L Chloride 106 (98-107) mEq/L Carbon Dioxide 27.3 (21-32) mEq/L Anion Gap 15.9 H (5-15) MEQ/L BUN 21 H (9-20) mg/dL Creatinine 1.35 H (0.55-1.30) mg/dl Estimated GFR > 60 ML/MIN Glucose 157 H (70-110) MG/DL Lactic Acid (0.4-2.0) Calcium 9.2 (8.5-10.1) mg/dL Troponin I < 0.017 < 0.017 (0.000-0.056) ng/ml Streptococcus Screen (Negative) 10/16/17 10/16/17 10/16/17 Range/Units 00:15 00:51 04:34 WBC (4.0-10.5) K/mm3 RBC (4.1-5.6) M/mm3 Hgb (12.5-18.0) gm/dl Hct (42-50) % MCV (78-100) fl MCH (26-32) pg MCHC (32-36) g/dl RDW (11.5-14.0) % Plt Count (150-450) K/mm3 MPV (6-9.5) fl Segmented Neutrophils (36.-66.) % Band Neutrophils (0.0-2.0) % Lymphocytes (Manual) (24-44) % Monocytes (Manual) (0.0-12.0) % Differential Comment Platelet Estimate (NORMAL) Sodium 143 143 (136-145) mEq/L Potassium 4.2 3.8 (3.5-5.1) mEq/L Chloride 105 104 (98-107) mEq/L Carbon Dioxide 26.7 27.8 (21-32) mEq/L Anion Gap 15.4 H 15.3 H (5-15) MEQ/L BUN 18 16 (9-20) mg/dL Creatinine 1.13 1.23 (0.55-1.30) mg/dl Estimated GFR > 60 > 60 ML/MIN Glucose 213 H 151 H (70-110) MG/DL Lactic Acid 1.3 (0.4-2.0) Calcium 8.6 9.3 (8.5-10.1) mg/dL Troponin I (0.000-0.056) ng/ml Streptococcus Screen (Negative) 10/16/17 10/16/17 Range/Units 04:34 08:45 WBC 23.6 H (4.0-10.5) K/mm3 RBC 4.55 (4.1-5.6) M/mm3 Hgb 13.5 (12.5-18.0) gm/dl Hct 39.4 L (42-50) % MCV 86.6 (78-100) fl MCH 29.7 (26-32) pg MCHC 34.3 (32-36) g/dl RDW 12.7 (11.5-14.0) % Plt Count 455 H (150-450) K/mm3 MPV 8.7 (6-9.5) fl Segmented Neutrophils 88 H (36.-66.) % Band Neutrophils 2 (0.0-2.0) % Lymphocytes (Manual) 6 L (24-44) % Monocytes (Manual) 4 (0.0-12.0) % Differential Comment NORMAL Platelet Estimate NORMAL (NORMAL) Sodium (136-145) mEq/L Potassium (3.5-5.1) mEq/L Chloride (98-107) mEq/L Carbon Dioxide (21-32) mEq/L Anion Gap (5-15) MEQ/L BUN (9-20) mg/dL Creatinine (0.55-1.30) mg/dl Estimated GFR ML/MIN Glucose (70-110) MG/DL Lactic Acid 2.1 H (0.4-2.0) Calcium (8.5-10.1) mg/dL Troponin I (0.000-0.056) ng/ml Streptococcus Screen (Negative) Radiology Exams: Radiology Procedures Category Date Time Status OBSTR/ACUTE ABDOMEN SERIES Urgent Exams 10/16/17 Ordered Assessment/Plan (1) Diabetic ketoacidosis Current Visit: Yes Status: Acute Assessment & Plan: His anion gap continues to be a little high so he has continued on the insulin drip over night. BMP pending. Continue with IV fluids and accu checks every hour. Code(s): E13.10 - OTH DIABETES MELLITUS WITH KETOACIDOSIS WITHOUT COMA (2) Diabetes mellitus type I Current Visit: Yes Status: Chronic Qualifiers: Diabetes mellitus complication status: with hyperglycemia Qualified Code(s) : E10.65 - Type 1 diabetes mellitus with hyperglycemia Assessment & Plan: His Hgb A1C was checked and was 10. Patient encouraged to follow up as an outpatient to prevent DKA. (3) Leukocytosis Current Visit: Yes Status: Acute Assessment & Plan: Most likely due to vomiting. He is on Zosyn and blood cultures in lab and urine culture from urine yesterday ordered. Lactic acid has come down from yesterday. Lactic acid can be elevated in DKA. Throat culture is also in lab. Chest X-ray was clear. Code(s): D72.829 - ELEVATED WHITE BLOOD CELL COUNT, UNSPECIFIED (4) Abdominal pain Current Visit: No Status: Resolved Qualifiers: Abdominal location: generalized Assessment & Plan: Most likely due to DKA but with hypoactive bowel sounds, will check acute abdominal series. Code(s): R10.9 - UNSPECIFIED ABDOMINAL PAIN (5) Illicit drug use Current Visit: Yes Status: Acute Assessment & Plan: Patient reported heavy THC use in the past. He again denies any recent methamphetamine use. Code(s): F19.90 - OTHER PSYCHOACTIVE SUBSTANCE USE, UNSPECIFIED, UNCOMPLICATED
--- NOTE | 2017-10-16 09:20 | XRAY ---
Indication: Ketoacidosis. Comparison: Chest exam one day earlier. Supine and left lateral decubitus abdomen nonacute and nonobstructed with a few pelvic phleboliths. Solid organs and osseous structures unremarkable. Single AP chest again demonstrates normal heart, lungs, and bony thorax. Impression: Negative abdomen. Stable normal 1 view chest.
[2017-10-16] MEDS: POTASSIUM CHLORIDE 20 mEq IN WATER 100ML 100 ML IV PRN ×2 (10:10→12:00)
[2017-10-16] MEDS: NOVOLIN R INSULIN (FOR DRIPS)** 100 UNITS in Sodium Chloride 0.9% 100 ML IVPB 100 ML IV SCH ×2 (14:31→17:02)
[2017-10-16 15:04] LABS: BLOOD UREA NITROGEN 11 mg/dL (9-20); Calcium 8.5 mg/dL (8.5-10.1); Carbon Dioxide 27.4 mEq/L (21-32); Glucose 120 MG/DL (70-110)
[2017-10-16 16:11] LABS: CHLORIDE 103 mEq/L (98-107); Potassium 3.8 mEq/L (3.5-5.1); SODIUM 140 mEq/L (136-145)
[2017-10-16] MEDS ORDERED: GlucaGen 1 MG IM PRN (16:33)
[2017-10-16] MEDS ORDERED: D50W 50 ml Abboject IV PRN (16:33)
[2017-10-16] MEDS ORDERED: Glutose 15 GM ORAL GEL PO PRN (16:33)
[2017-10-16] MEDS ORDERED: Lantus Insulin ONE (16:53)
[2017-10-17] MEDS: Zosyn 3.375GM/100 Ml D5W 3.375 GM/100 ML IVPB IV SCH ×3 (05:58→17:12)
[2017-10-17 06:11] LABS: BASOPHIL % 0.2 % (0.0-0.4); Basophil (Absolute #) 0.03 (0-0.4); Eosinophil (Absolute #) 0.25 (0-0.5); Granulocyte Absolute (ANC) 8.71 (1.4-6.9); Granulocytes % 70.4 % (36.0-66.0); Hematocrit 39.1 % (42-50); Hemoglobin 13.4 gm/dl (12.5-18.0); Lymphocyte (Absolute #) 2.16 (1.0-4.6); Lymphocytes % 17.4 % (24.0-44.0); Mean Cell Volume 86.1 fl (78-100); Mean Corpuscular Hemoglobin 29.5 pg (26-32); Mean Corpuscular Hgb Concent. 34.3 g/dl (32-36); Mean Platelet Volume 8.3 fl (6-9.5); Monocyte (Absolute #) 1.24 (0.0-1.3); Platelet Count 392 K/mm3 (150-450); Red Blood Count 4.54 M/mm3 (4.1-5.6); Red Cell Distribution Width 12.2 % (11.5-14.0); White Blood Count 12.4 K/mm3 (4.0-10.5)
[2017-10-17 06:49] LABS: ANION GAP 13.2 MEQ/L (5-15); BLOOD UREA NITROGEN 7 mg/dL (9-20); CHLORIDE 102 mEq/L (98-107); Calcium 9.1 mg/dL (8.5-10.1); Carbon Dioxide 26.8 mEq/L (21-32); Creatinine 1 1.04 mg/dl (0.55-1.30); Glucose 67 MG/DL (70-110); Potassium 3.6 mEq/L (3.5-5.1); SODIUM 138 mEq/L (136-145)
--- NOTE | 2017-10-17 09:34 | PCM.NOTE ---
Date and Time: 10/17/17928 Subjective Assessment: He states he guess he is feeling better. He reports the nausea is better. He does not have much of an appetite. He continues to have some pain in his abdomen that seems to be more in the right upper quadrant. He mumbles answers to questions and is a poor historian. - Review of Systems Constitutional: No Symptoms Respiratory: No Symptoms Cardiac: No Symptoms Genitourinary Symptoms: No Symptoms Musculoskeletal: No Symptoms Skin: No Symptoms Objective Exam General Appearance: no apparent distress, alert Neurologic Exam: alert, cooperative, normal mood/affect Skin Exam: normal color, warm, dry, No rash Respiratory Exam: normal breath sounds, lungs clear, No crackles/rales, No rhonchi, No wheezing Cardiovascular Exam: regular rate/rhythm, normal heart sounds, No murmur, No friction rub, No gallop Gastrointestinal/Abdomen Exam: soft, normal bowel sounds, tenderness, other ( mild right upper quadrant pain), No distention, No mass, No guarding Extremity Exam: other (no c/c/e) OBJECTIVE DATA Vital Signs: Vital Signs - 24 hr Temp Pulse Resp BP Pulse Ox 10/17/17 07:14 98 F 85 14 149/87 97 10/17/17 04:00 98.6 F 86 14 142/85 97 10/17/17 03:56 18 10/17/17 00:01 108 H 10/16/17 23:57 98.7 F 94 H 16 155/90 96 10/16/17 19:45 98.5 F 95 H 17 145/92 98 10/16/17 17:51 98.7 F 100 H 18 142/102 97 10/16/17 16:00 98.8 F 95 H 16 150/90 98 10/16/17 13:55 99 H 18 171/106 99 10/16/17 12:00 97.7 F 109 H 16 144/95 98 10/16/17 11:57 99 H 10/16/17 10:00 98.6 F 91 H 16 144/95 97 Pain Assessment - Last Documented Pain Intensity 0 Pain Scale [facility] Intake and Output: Intake & Output 10/15/17 10/16/17 10/17/17 10/18/17 06:59 06:59 06:59 06:59 Intake Total 2491 2428 Output Total 1425 2250 300 Balance 1066 178 -300 Weight 64.2 kg Lab Results: Accuchecks Date 10/17/1710/16/1710/16/1710/16/17 Date 10/16/17 Date 10/16/17 Date 10/16/1710/16/1710/16/17 Date 10/16/17 Date 10/16/17 Time 06:54 Time 21:11 Time 17:59 Time 16:56 Time 16:11 Time 15:01 Time 13:56 Time 12:52 Time 12:06 Time 10:59 Time 10:07 Accucheck Value: 96 Accucheck Value: 119 Accucheck Value: 113 Accucheck Value: 116 Accucheck Value: 116 Accucheck Value: 124 Accucheck Value: 106 Accucheck Value: 118 Accucheck Value: 124 Accucheck Value: 131 Accucheck Value: 104 Lab Results-Last 24 Hours 10/16/17 10/16/17 10/17/17 Range/Units 14:17 16:05 06:04 WBC 12.4 H (4.0-10.5) K/mm3 RBC 4.54 (4.1-5.6) M/mm3 Hgb 13.4 (12.5-18.0) gm/dl Hct 39.1 L (42-50) % MCV 86.1 (78-100) fl MCH 29.5 (26-32) pg MCHC 34.3 (32-36) g/dl RDW 12.2 (11.5-14.0) % Plt Count 392 (150-450) K/mm3 MPV 8.3 (6-9.5) fl Gran % 70.4 H (36.0-66.0) % Lymphocytes % 17.4 L (24.0-44.0) % Monocytes % 10.0 (0.0-12.0) % Eosinophils % 2.0 (0.00-5.0) % Basophils % 0.2 (0.0-0.4) % Basophils # 0.03 (0-0.4) Sodium 140 (136-145) mEq/L Potassium 3.8 3.7 (3.5-5.1) mEq/L Chloride 103 (98-107) mEq/L Carbon Dioxide 27.4 (21-32) mEq/L Anion Gap (5-15) MEQ/L BUN 11 (9-20) mg/dL Creatinine 1.10 (0.55-1.30) mg/dl Estimated GFR > 60 ML/MIN Glucose 120 H (70-110) MG/DL Calcium 8.5 (8.5-10.1) mg/dL 10/17/17 Range/Units 06:04 WBC (4.0-10.5) K/mm3 RBC (4.1-5.6) M/mm3 Hgb (12.5-18.0) gm/dl Hct (42-50) % MCV (78-100) fl MCH (26-32) pg MCHC (32-36) g/dl RDW (11.5-14.0) % Plt Count (150-450) K/mm3 MPV (6-9.5) fl Gran % (36.0-66.0) % Lymphocytes % (24.0-44.0) % Monocytes % (0.0-12.0) % Eosinophils % (0.00-5.0) % Basophils % (0.0-0.4) % Basophils # (0-0.4) Sodium 138 (136-145) mEq/L Potassium 3.6 (3.5-5.1) mEq/L Chloride 102 (98-107) mEq/L Carbon Dioxide 26.8 (21-32) mEq/L Anion Gap 13.2 (5-15) MEQ/L BUN 7 L (9-20) mg/dL Creatinine 1.04 (0.55-1.30) mg/dl Estimated GFR > 60 ML/MIN Glucose 67 L (70-110) MG/DL Calcium 9.1 (8.5-10.1) mg/dL Radiology Exams: Radiology Procedures Category Date Time Status GALLBLADDER [US] Routine Exams 10/17/17 Ordered OBSTR/ACUTE ABDOMEN SERIES Urgent Exams 10/16/17 09:03 Completed Assessment/Plan (1) Diabetic ketoacidosis Current Visit: Yes Status: Resolved Assessment & Plan: This has resolved and he was taken off the insulin drip yesterday and started on lantus. Code(s): E13.10 - OTH DIABETES MELLITUS WITH KETOACIDOSIS WITHOUT COMA (2) Diabetes mellitus type I Current Visit: Yes Status: Chronic Qualifiers: Diabetes mellitus complication status: with hyperglycemia Qualified Code(s) : E10.65 - Type 1 diabetes mellitus with hyperglycemia Assessment & Plan: Hgb A1C was 10.0 when checked. He was given lantus 30 units yesterday, will change to 20 units today. At this time novolog is not ordered with meals scheduled as he is not eating much yet. He does have a low dose sliding scale of Novolog ordered if needed for coverage. (3) Leukocytosis Current Visit: Yes Status: Acute Assessment & Plan: Improved today. Continue Zosyn at this time. Code(s): D72.829 - ELEVATED WHITE BLOOD CELL COUNT, UNSPECIFIED (4) Illicit drug use Current Visit: Yes Status: Acute Code(s): F19.90 - OTHER PSYCHOACTIVE SUBSTANCE USE, UNSPECIFIED, UNCOMPLICATED (5) Right upper quadrant pain Current Visit: Yes Status: Acute Assessment & Plan: Check gallbladder US. Code(s): R10.11 - RIGHT UPPER QUADRANT PAIN
[2017-10-17] MEDS: NovoLOG Insulin SQ PRN (15:39)
--- NOTE | 2017-10-17 15:43 | XRAY ---
Exam: Gallbladder ultrasound from 10/17/2017. Comparison: Acute abdominal series from 10/16/2017. Indication: Right upper quadrant abdominal pain. Findings: The pancreas appears essentially unremarkable with the tail not well seen due to adjacent bowel gas. The liver appears of unremarkable size measuring 15.55 cm in AP dimension. No focal hepatic mass or intrahepatic biliary duct distention is seen. Normal hepatopetal blood flow is seen within the portal vein. The gallbladder is distended. No intraluminal gallstones or biliary sludge is seen. The gallbladder wall measures 2.4 m in thickness which is normal. No pericholecystic edema or fluid is seen. The proximal common bile duct measures 3.6 mm which is normal. The right kidney measures 12.01 cm x 4.5 cm x 5.36 cm. No right renal mass or hydronephrosis is seen. Impression: 1. No significant abnormality is seen on the gallbladder ultrasound. Specifically, no evidence of cholelithiasis, gallbladder enlargement, gallbladder wall thickening, or biliary duct distention is seen.
[2017-10-17] MEDS ORDERED: Lantus Insulin SQ ONE (16:40)
[2017-10-17] MEDS ORDERED: Lantus Insulin SQ SCH (17:00)
[2017-10-18] MEDS: Zosyn 3.375GM/100 Ml D5W 3.375 GM/100 ML IVPB IV SCH ×2 (00:59→05:37)
[2017-10-18 06:12] LABS: BASOPHIL % 0.3 % (0.0-0.4); Basophil (Absolute #) 0.03 (0-0.4); Eosinophil (Absolute #) 0.26 (0-0.5); Granulocyte Absolute (ANC) 5.45 (1.4-6.9); Granulocytes % 62.3 % (36.0-66.0); Hematocrit 37.1 % (42-50); Hemoglobin 12.9 gm/dl (12.5-18.0); Lymphocyte (Absolute #) 2.01 (1.0-4.6); Mean Cell Volume 85.3 fl (78-100); Mean Corpuscular Hemoglobin 29.7 pg (26-32); Mean Corpuscular Hgb Concent. 34.8 g/dl (32-36); Mean Platelet Volume 8.4 fl (6-9.5); Monocytes % 11.4 % (0.0-12.0); Platelet Count 360 K/mm3 (150-450); Red Blood Count 4.35 M/mm3 (4.1-5.6); White Blood Count 8.8 K/mm3 (4.0-10.5)
[2017-10-18 06:41] LABS: ANION GAP 11.5 MEQ/L (5-15); BLOOD UREA NITROGEN 10 mg/dL (9-20); CHLORIDE 98 mEq/L (98-107); Calcium 8.4 mg/dL (8.5-10.1); Carbon Dioxide 27.2 mEq/L (21-32); Creatinine 1 1.06 mg/dl (0.55-1.30); Glucose 288 MG/DL (70-110); Potassium 3.9 mEq/L (3.5-5.1); SODIUM 133 mEq/L (136-145)
[2017-10-18] MEDS: NovoLOG Insulin SQ PRN ×2 (08:15→11:40)
--- NOTE | 2017-10-18 09:03 | PCM.NOTE ---
Date and Time: 10/18/17857 Subjective Assessment: He reports that he is basically homeless but plans to stay with his brother in [place]. He states he has some supplies at home to check his blood glucoses. He reports he usually takes Humalog at home around 10 unit with meals but is xu to get one meal a day he states due to not having food at home and not having an income. He is open to discharge planning talking to him about options that might be available. He reports it is hard to keep a job when he is always sick and when asked states he has tried for disability but was not approved. His mother lives in the [facility]. He reports he has no transportation to come to doctor's appointments. Discharge planning will let him know that his insurance will cover transportation and they feel like [facility] will work with him for help with cost of his medications. They also have a resource for him to help with the social situation/housing arrangements. He declines [facility] consult or medication to help with his mood. - Review of Systems Constitutional: No Symptoms Eyes: No Symptoms Ears, Nose, & Throat: No Symptoms Respiratory: No Symptoms Cardiac: No Symptoms Abdominal/Gastrointestinal: Abdominal Pain Genitourinary Symptoms: No Symptoms Musculoskeletal: No Symptoms Objective Exam General Appearance: no apparent distress Neurologic Exam: alert, cooperative Skin Exam: normal color, warm, dry Respiratory Exam: normal breath sounds, lungs clear, No crackles/rales, No rhonchi, No wheezing Cardiovascular Exam: regular rate/rhythm, normal heart sounds, No murmur, No friction rub, No gallop Gastrointestinal/Abdomen Exam: soft, normal bowel sounds, tenderness, other ( mild tenderness throughout abdomen), No distention, No mass, No guarding Extremity Exam: normal inspection, other (no c/c/e) OBJECTIVE DATA Vital Signs: Vital Signs - 24 hr Temp Pulse Resp BP Pulse Ox 10/18/17 07:44 97.6 F 109 H 18 168/106 97 10/18/17 04:27 98.5 F 91 H 18 128/82 10/18/17 03:45 18 10/17/17 23:44 98.9 F 93 H 18 134/88 96 10/17/17 20:00 98.8 F 65 18 146/91 97 10/17/17 15:38 98.7 F 95 H 14 149/92 96 10/17/17 12:00 89 14 166/82 98 Pain Assessment - Last Documented Pain Intensity 0 Pain Scale Used 0-10 Pain Scale Intake and Output: Intake & Output 10/16/17 10/17/17 10/18/17 10/19/17 06:59 06:59 06:59 06:59 Intake Total 2491 2428 960 Output Total 1425 2250 1100 Balance 1066 178 -140 Weight 64.2 kg Lab Results: Accuchecks Date 10/17/17 Date 10/17/17 Date 10/17/17 Time 22:00 Time 15:50 Time 11:03 Accucheck Value: 247 Accucheck Value: 159 Accucheck Value: 204 Accucheck Value: 146 Lab Results-Last 24 Hours 10/18/17 10/18/17 Range/Units 06:05 06:05 WBC 8.8 (4.0-10.5) K/mm3 RBC 4.35 (4.1-5.6) M/mm3 Hgb 12.9 (12.5-18.0) gm/dl Hct 37.1 L (42-50) % MCV 85.3 (78-100) fl MCH 29.7 (26-32) pg MCHC 34.8 (32-36) g/dl RDW 12.0 (11.5-14.0) % Plt Count 360 (150-450) K/mm3 MPV 8.4 (6-9.5) fl Gran % 62.3 (36.0-66.0) % Lymphocytes % 23.0 L (24.0-44.0) % Monocytes % 11.4 (0.0-12.0) % Eosinophils % 3.0 (0.00-5.0) % Basophils % 0.3 (0.0-0.4) % Basophils # 0.03 (0-0.4) Sodium 133 L (136-145) mEq/L Potassium 3.9 (3.5-5.1) mEq/L Chloride 98 (98-107) mEq/L Carbon Dioxide 27.2 (21-32) mEq/L Anion Gap 11.5 (5-15) MEQ/L BUN 10 (9-20) mg/dL Creatinine 1.06 (0.55-1.30) mg/dl Estimated GFR > 60 ML/MIN Glucose 288 H (70-110) MG/DL Calcium 8.4 L (8.5-10.1) mg/dL Radiology Exams: Radiology Procedures Category Date Time Status GALLBLADDER [US] Routine Exams 10/17/17 10:44 Completed OBSTR/ACUTE ABDOMEN SERIES Urgent Exams 10/16/17 09:03 Completed Assessment/Plan (1) Diabetes mellitus type I Current Visit: Yes Status: Chronic Qualifiers: Diabetes mellitus complication status: with hyperglycemia Qualified Code(s) : E10.65 - Type 1 diabetes mellitus with hyperglycemia Assessment & Plan: Will advance diet today and start Humalog 4 units with meals. Continue lantus 20 units daily. Patient again encouraged to follow up as an outpatient to help with his diabetes control. (2) Leukocytosis Current Visit: Yes Status: Acute Assessment & Plan: Resolved today. Blood cultures no growth to date. Will stop antibiotics as sepsis has been ruled out. Urine culture no growth as well. Code(s): D72.829 - ELEVATED WHITE BLOOD CELL COUNT, UNSPECIFIED (3) Illicit drug use Current Visit: Yes Status: Acute Code(s): F19.90 - OTHER PSYCHOACTIVE SUBSTANCE USE, UNSPECIFIED, UNCOMPLICATED (4) Right upper quadrant pain Current Visit: Yes Status: Acute Assessment & Plan: Gallbladder US was normal. He had an acute abdominal series that was negative earlier in his hospitalization. Will continue to monitor. Code(s): R10.11 - RIGHT UPPER QUADRANT PAIN
[2017-10-18] MEDS ORDERED: NovoLOG Insulin SQ SCH (12:00)
[2017-10-18 13:51] VITALS: BP 143/91; PULSE 102; O2SAT 96
--- NOTE | 2017-10-18 15:32 | PCM.DCORD ---
- Discharge Discharge Date: 10/18/17 Disposition: Home, Self-Care Condition: Good Prescriptions: New Insulin Lispro [Humalog] 6 unit SQ TIDWM #10 ml Insulin Glargine [Lantus Insulin] 24 unit SQ 1700 #10 ml Discontinued Insulin Glargine [Lantus Insulin] 15 unit SQ BID Insulin Aspart [NovoLOG Insulin] 10 units SQ AC Follow up with: MILEY BIGGS [ACTIVE STAFF] - 1 Week
== END 2017-10-18 15:45 | disposition home or self-care (01) | DRG 639 ==
LOC: ED 11:24 → ICU 15:02 → OBSVTOIN 15:02 → MED SURG 10-17 16:00
PROVIDERS: ADMIT Internal Medicine; ATTEND Internal Medicine
DX: E10.10 Type 1 diabetes mellitus with ketoacidosis without coma (principal); Z79.4 Long term (current) use of insulin; F32.9 Major depressive disorder, single episode, unspecified; R07.9 Chest pain, unspecified; D72.829 Elevated white blood cell count, unspecified; F19.90 Other psychoactive substance use, unspecified, uncomplicated
CPT/HCPCS: 36000; 36415; 71045; 74022; 76705; 80048; 80053; 80307; 81000; 82805; 82947; 82962; 83036; 83605; 83690; 83735; 84132; 84484; 85025; 87040; 87070; 87086; 87430; 93005; 93041; 96360; 96361; 99285; J1815; J2405; J2543; J2550; J3480; A9270-GY

== ENCOUNTER 2018-01-02 19:10 | Observation (INO) | payer OTHER ==
[2018-01-02] MEDS ORDERED: Sodium Chloride 0.9% 1000 ML 1,000 ML IV STA ×2 (19:47→21:18)
[2018-01-02] MEDS ORDERED: Zofran 4 MG/2 ML VIAL IV ONE (19:47)
--- NOTE | 2018-01-02 19:56 | ERPHSYRPT ---
- History of Present Illness Time Seen by Provider: 01/02/18 19:34 Historian: patient Exam Limitations: no limitations Patient Subjective Stated Complaint: pt states he has been outside working all day and has been feeling weak since approx 1500 Triage Nursing Assessment: pt alert and oriented, answers questions approp. pt ambulatory with slow tsteady gait noted. respirations nonlabored with lungs cta. skin pale, warm, dry. pt lauying in bed with eyes closed. Physician History: Pt states, he was outside working all day, became sick at 3 PM, started vomiting , developed epigastric pain. He denies fever, chills, diarrhea, black stool, urinary complaints, or chest pain, SOB, cough, cold symptoms. His blood sugar was 180 this afternoon. Timing/Duration: today, hour(s) Activities at Onset: none Quality: cramping Pain Radiation: no radiation Severity of Pain-Max: moderate Severity of Pain-Current: moderate Modifying Factors: Improves With: nothing Associated Symptoms: nausea, vomiting Previous symptoms: same symptoms as today Allergies/Adverse Reactions: No Known Drug Allergies Allergy (Verified 01/02/18 19:29) Hx Tetanus, Diphtheria Vaccination/Date Given: Yes Hx Influenza Vaccination/Date Given: No Hx Pneumococcal Vaccination/Date Given: No Immunizations Up to Date: Yes - Review of Systems Constitutional: No Symptoms Abdominal/Gastrointestinal: Abdominal Pain, Nausea, Vomiting All Other Systems: Reviewed and Negative - Past Medical History Pertinent Past Medical History: Yes Neurological History: No Pertinent History ENT History: No Pertinent History Cardiac History: No Pertinent History Respiratory History: No Pertinent History Endocrine Medical History: Diabetes Type I Musculoskeletal History: No Pertinent History GI Medical History: No Pertinent History History: No Pertinent History Psycho-Social History: Depression Male Reproductive Disorders: No Pertinent History Other Medical History: DKA - Past Surgical History Past Surgical History: No Neuro Surgical History: No Pertinent History Cardiac: No Pertinent History Respiratory: No Pertinent History Gastrointestinal: No Pertinent History Genitourinary: No Pertinent History Musculoskeletal: No Pertinent History Male Surgical History: No Pertinent History Other Surgical History: PT SHAKES HEAD "NO" WHEN ASKED IF HE HAS EVER HAD SURGERY - Social History Smoking Status: Former smoker Exposure to second hand smoke: No Drug Use: marijuana, methamphetamines Patient Lives Alone: No - Nursing Vital Signs Nursing Vital Signs: Initial Vital Signs Temperature 97.6 F 01/02/18 19:19 Pulse Rate 92 H 01/02/18 19:19 Respiratory Rate 18 01/02/18 19:19 Blood Pressure 177/109 01/02/18 19:19 O2 Sat by Pulse Oximetry 100 01/02/18 19:19 Pain Scale Pain Intensity 6 - Physical Exam General Appearance: no apparent distress Eye Exam: eyes nml inspection Ears, Nose, Throat Exam: normal ENT inspection, pharynx normal Neck Exam: normal inspection, non-tender, supple Respiratory Exam: normal breath sounds, lungs clear, airway intact, No chest tenderness, No respiratory distress Cardiovascular Exam: regular rate/rhythm, normal heart sounds, normal peripheral pulses, No murmur Gastrointestinal/Abdomen Exam: soft, normal bowel sounds, tenderness ( epigastric , mild) Back Exam: normal inspection, No CVA tenderness Extremity Exam: normal inspection Neurologic Exam: alert, oriented x 3, cooperative, normal mood/affect Skin Exam: normal color, warm, dry, No rash Lymphatic Exam: No adenopathy SpO2 Interpretation: normal SpO2: 100 Oxygen Delivery: Room Air - Course Nursing assessment & vital signs reviewed: Yes EKG Interpreted by Me: RATE (111/min), Sinus Tach, NORMAL AXIS, Non-specific ST Changes Ordered Tests: Active Orders 24 hr Category Date Time Status Up Ad Shi ROUTINE Activity 01/02/18 23:46 Ordered Accucheck Q6H Care 01/02/18 23:45 Ordered Accucheck STAT Care 01/02/18 19:47 Active Dietary Manager STAT Care 01/02/18 19:48 Active Code Status Order ROUTINE Care 01/02/18 23:45 Ordered EKG-ER Only STAT Care 01/02/18 19:47 Active IV Care Q6H Care 01/02/18 23:45 Ordered IV Insertion STAT Care 01/02/18 19:[address] in Observation ROUTINE Care 01/02/18 23:45 Ordered NPO Diet 01/02/18 23:46 Ordered ABDOMEN AND PELVIS W/0 CONTRAS [CT] Stat Exams 01/02/18 19:51 Taken CHEST 1 VIEW (PORTABLE) Stat Exams 01/02/18 19:50 Taken ABG [ARTERIAL BLOOD GASES] Stat Lab 01/02/18 20:35 Completed BMP AM.LAB Lab 01/03/18 04:00 Ordered CBC W DIFF AM.LAB Lab 01/03/18 04:00 Ordered CBC W DIFF Stat Lab 01/02/18 19:40 Completed CK-Creatinine Phosphokinase Stat Lab 01/02/18 19:40 Completed CMP Stat Lab 01/02/18 19:40 Completed ETHYL ALCOHOL Stat Lab 01/02/18 19:40 Completed LIPASE Stat Lab 01/02/18 19:40 Completed Lactic Acid Urgent Lab 01/02/18 20:35 Completed MAGNESIUM Stat Lab 01/02/18 19:40 Completed TROPONIN Q3H Lab 01/02/18 19:40 Completed TROPONIN Q3H Lab 01/02/18 23:30 Received TROPONIN Q3H Lab 01/03/18 02:00 Ordered TROPONIN Q3H Lab 01/03/18 05:00 Ordered TROPONIN Q3H Lab 01/03/18 08:00 Ordered UA W/ MICROSCOPIC Stat Lab 01/02/18 22:38 Completed Urine Triage Profile Stat Lab 01/02/18 22:38 Completed Medication Summary Generic Name Dose Route Start Last Admin Trade Name Kirkq PRN Reason Stop Dose Admin Famotidine 20 mg 01/03/18 10:00 Pepcid 20 Mg Vial IV 02/02/18 09:59 Q12HT XIN Potassium Chloride/Sodium Chloride 1,000 mls @ 100 mls/hr 01/02/18 23:45 Sodium Chloride 0.9% W/ 20 Meq Kcl/Liter IV 02/01/18 23:44 .Q10H XIN Ondansetron HCl 4 mg 01/02/18 23:45 Zofran 4 Mg/2 Ml Vial IV 02/01/18 23:44 Q6H PRN PRN NAUSEA/VOMITING Discontinued Medications Generic Name Dose Route Start Last Admin Trade Name Freq PRN Reason Stop Dose Admin Sodium Chloride 1,000 mls @ 999 mls/hr 01/02/18 19:47 01/02/18 20:37 Sodium Chloride 0.9% 1000 Ml IV 01/02/18 20:47 999 mls/hr .Q1H1M STA Administration Sodium Chloride Confirm 01/02/18 20:08 Sodium Chloride 0.9% 1000 Ml Administered 01/02/18 20:09 Dose 1,000 mls @ ud .ROUTE .STK-MED ONE Sodium Chloride 1,000 mls @ 999 mls/hr 01/02/18 21:18 01/02/18 21:22 Sodium Chloride 0.9% 1000 Ml IV 01/02/18 22:18 999 mls/hr .Q1H1M STA Administration Sodium Chloride Confirm 01/02/18 21:22 Sodium Chloride 0.9% 1000 Ml Administered 01/02/18 21:23 Dose 1,000 mls @ ud .ROUTE .STK-MED ONE Metoclopramide HCl 10 mg 01/02/18 21:18 01/02/18 21:22 Reglan 10 Mg/2 Ml IV 01/02/18 21:19 10 mg STAT ONE Administration Metoclopramide HCl Confirm 01/02/18 21:22 Reglan 10 Mg/2 Ml Administered 01/02/18 21:23 Dose 10 mg .ROUTE .STK-MED ONE Ondansetron HCl 4 mg 01/02/18 19:47 01/02/18 20:29 Zofran 4 Mg/2 Ml Vial IV 01/02/18 19:48 4 mg STAT ONE Administration Ondansetron HCl Confirm 01/02/18 20:08 Zofran 4 Mg/2 Ml Vial Administered 01/02/18 20:09 Dose 4 mg .ROUTE .STK-MED ONE Lab/Rad Data: Laboratory Result Diagrams 01/02/18 19:40 01/02/18 19:40 Laboratory Results 01/02/18 01/02/18 01/02/18 Range/Units 22:38 22:38 20:35 WBC (4.0-10.5) K/mm3 RBC (4.1-5.6) M/mm3 Hgb (12.5-18.0) gm/dl Hct (42-50) % MCV (78-100) fl MCH (26-32) pg MCHC (32-36) g/dl RDW (11.5-14.0) % Plt Count (150-450) K/mm3 MPV (6-9.5) fl Gran % (36.0-66.0) % Eos # (Auto) (0-0.5) Absolute Lymphs (auto) (1.0-4.6) Absolute Monos (auto) (0.0-1.3) Lymphocytes % (24.0-44.0) % Monocytes % (0.0-12.0) % Eosinophils % (0.00-5.0) % Basophils % (0.0-0.4) % Absolute Granulocytes (1.4-6.9) Basophils # (0-0.4) Puncture Site RIGHT BRACHIAL pCO2 39 (35-45) mmHg pO2 93 (75-100) mmHg Base Excess 5.2 H (-2.0-2.0) O2 Saturation 95.7 (94-100) g/dF ABG pH 7.48 H (7.35-7.45) ABG HCO3 29.0 H (22-28) ABG O2 Sat (Measured) 99.0 (95-100) % Arnaldo Test NOT APPLICABLE A-a Gradient 8 a/A Ratio 0.92 Hemoglobin 13.6 Carboxyhemoglobin 2.1 (0.0-6.9) % THgb Methemoglobin 1.2 L (1.4-1.5) % Temperature 37.0 C POC O2 Flow Rate 21 % Sodium (137-145) mmol/L Potassium 3.3 L (3.5-5.1) mmol/L Chloride (98-107) mmol/L Carbon Dioxide (22-30) mmol/L Anion Gap (5-15) MEQ/L BUN (9-20) mg/dL Creatinine (0.66-1.25) mg/dL Estimated GFR ML/MIN Glucose (74-106) mg/dL Lactic Acid (0.4-2.0) Calcium (8.4-10.2) mg/dL Magnesium (1.6-2.3) mg/dL Total Bilirubin (0.2-1.3) mg/dL AST (17-59) U/L ALT (0-50) U/L Alkaline Phosphatase (38-126) U/L Creatine Kinase (55-170) U/L Troponin I (0.000-0.034) ng/mL Serum Total Protein (6.3-8.2) g/dL Albumin (3.5-5.0) g/dL Lipase (23-300) U/L Ur Collection Type VOID Urine Color YELLOW (YELLOW) Urine Appearance CLEAR (CLEAR) Urine pH 9.0 (5-6) Ur Specific Roach 1.005 (1.005-1.025) Urine Protein 30 (Negative) Urine Ketones MODERATE (NEGATIVE) Urine Blood TRACE NON-HEM (0-5) Tomas/ul Urine Nitrite NEGATIVE (NEGATIVE) Urine Bilirubin NEGATIVE (NEGATIVE) Urine Urobilinogen NORMAL (0-1) mg/dL Ur Leukocyte Esterase NEGATIVE (NEGATIVE) Urine Microscopic RBC 0-2 (0-2) /HPF Urine Microscopic WBC 0-2 (0-5) /HPF Urine Culture Reflexed NO (NO) Urine Glucose NEGATIVE (NEGATIVE) mg/dL Urine Opiates Level NEGATIVE (NEGATIVE) Ur Methadone NEGATIVE (NEGATIVE) Urine Barbiturates NEGATIVE (NEGATIVE) Ur Phencyclidine (PCP) NEGATIVE (NEGATIVE) Urine Amphetamine NEGATIVE (NEGATIVE) U Benzodiazepine Level NEGATIVE (NEGATIVE) Urine Cocaine NEGATIVE (NEGATIVE) Urine Marijuana (THC) POSITIVE (NEGATIVE) Ethyl Alcohol (0-10) mg/dL Specimen Received 01/02/18 01/02/18 01/02/18 01/02/18 Range/Units 20:35 19:40 19:40 WBC (4.0-10.5) K/mm3 RBC (4.1-5.6) M/mm3 Hgb (12.5-18.0) gm/dl Hct (42-50) % MCV (78-100) fl MCH (26-32) pg MCHC (32-36) g/dl RDW (11.5-14.0) % Plt Count (150-450) K/mm3 MPV (6-9.5) fl Gran % (36.0-66.0) % Eos # (Auto) (0-0.5) Absolute Lymphs (auto) (1.0-4.6) Absolute Monos (auto) (0.0-1.3) Lymphocytes % (24.0-44.0) % Monocytes % (0.0-12.0) % Eosinophils % (0.00-5.0) % Basophils % (0.0-0.4) % Absolute Granulocytes (1.4-6.9) Basophils # (0-0.4) Puncture Site pCO2 (35-45) mmHg pO2 (75-100) mmHg Base Excess (-2.0-2.0) O2 Saturation (94-100) g/dF ABG pH (7.35-7.45) ABG HCO3 (22-28) ABG O2 Sat (Measured) (95-100) % Arnaldo Test A-a Gradient a/A Ratio Hemoglobin Carboxyhemoglobin (0.0-6.9) % THgb Methemoglobin (1.4-1.5) % Temperature C POC O2 Flow Rate % Sodium (137-145) mmol/L Potassium (3.5-5.1) mmol/L Chloride (98-107) mmol/L Carbon Dioxide (22-30) mmol/L Anion Gap (5-15) MEQ/L BUN (9-20) mg/dL Creatinine (0.66-1.25) mg/dL Estimated GFR ML/MIN Glucose (74-106) mg/dL Lactic Acid 1.1 (0.4-2.0) Calcium (8.4-10.2) mg/dL Magnesium (1.6-2.3) mg/dL Total Bilirubin (0.2-1.3) mg/dL AST (17-59) U/L ALT (0-50) U/L Alkaline Phosphatase (38-126) U/L Creatine Kinase 103 (55-170) U/L Troponin I < 0.012 (0.000-0.034) ng/mL Serum Total Protein (6.3-8.2) g/dL Albumin (3.5-5.0) g/dL Lipase < 10 L (23-300) U/L Ur Collection Type Urine Color (YELLOW) Urine Appearance (CLEAR) Urine pH (5-6) Ur Specific Roach (1.005-1.025) Urine Protein (Negative) Urine Ketones (NEGATIVE) Urine Blood (0-5) Tomas/ul Urine Nitrite (NEGATIVE) Urine Bilirubin (NEGATIVE) Urine Urobilinogen (0-1) mg/dL Ur Leukocyte Esterase (NEGATIVE) Urine Microscopic RBC (0-2) /HPF Urine Microscopic WBC (0-5) /HPF Urine Culture Reflexed (NO) Urine Glucose (NEGATIVE) mg/dL Urine Opiates Level (NEGATIVE) Ur Methadone (NEGATIVE) Urine Barbiturates (NEGATIVE) Ur Phencyclidine (PCP) (NEGATIVE) Urine Amphetamine (NEGATIVE) U Benzodiazepine Level (NEGATIVE) Urine Cocaine (NEGATIVE) Urine Marijuana (THC) (NEGATIVE) Ethyl Alcohol (0-10) mg/dL Specimen Received 01/02/18 01/02/18 Range/Units 19:40 19:40 WBC 12.9 H (4.0-10.5) K/mm3 RBC 4.71 (4.1-5.6) M/mm3 Hgb 14.4 (12.5-18.0) gm/dl Hct 40.6 L (42-50) % MCV 86.2 (78-100) fl MCH 30.6 (26-32) pg MCHC 35.5 (32-36) g/dl RDW 12.5 (11.5-14.0) % Plt Count 418 (150-450) K/mm3 MPV 8.9 (6-9.5) fl Gran % 84.2 H (36.0-66.0) % Eos # (Auto) 0.16 (0-0.5) Absolute Lymphs (auto) 1.09 (1.0-4.6) Absolute Monos (auto) 0.77 (0.0-1.3) Lymphocytes % 8.4 L (24.0-44.0) % Monocytes % 6.0 (0.0-12.0) % Eosinophils % 1.2 (0.00-5.0) % Basophils % 0.2 (0.0-0.4) % Absolute Granulocytes 10.86 H (1.4-6.9) Basophils # 0.03 (0-0.4) Puncture Site pCO2 (35-45) mmHg pO2 (75-100) mmHg Base Excess (-2.0-2.0) O2 Saturation (94-100) g/dF ABG pH (7.35-7.45) ABG HCO3 (22-28) ABG O2 Sat (Measured) (95-100) % Arnaldo Test A-a Gradient a/A Ratio Hemoglobin Carboxyhemoglobin (0.0-6.9) % THgb Methemoglobin (1.4-1.5) % Temperature C POC O2 Flow Rate % Sodium 145 (137-145) mmol/L Potassium 3.4 L (3.5-5.1) mmol/L Chloride 102 (98-107) mmol/L Carbon Dioxide 28 (22-30) mmol/L Anion Gap 18.7 H (5-15) MEQ/L BUN 24 H (9-20) mg/dL Creatinine 0.92 (0.66-1.25) mg/dL Estimated GFR > 60.0 ML/MIN Glucose 202 H (74-106) mg/dL Lactic Acid (0.4-2.0) Calcium 10.2 (8.4-10.2) mg/dL Magnesium 1.8 (1.6-2.3) mg/dL Total Bilirubin 0.50 (0.2-1.3) mg/dL AST 22 (17-59) U/L ALT 21 (0-50) U/L Alkaline Phosphatase 133 H (38-126) U/L Creatine Kinase (55-170) U/L Troponin I (0.000-0.034) ng/mL Serum Total Protein 8.2 (6.3-8.2) g/dL Albumin 4.7 (3.5-5.0) g/dL Lipase (23-300) U/L Ur Collection Type Urine Color (YELLOW) Urine Appearance (CLEAR) Urine pH (5-6) Ur Specific Roach (1.005-1.025) Urine Protein (Negative) Urine Ketones (NEGATIVE) Urine Blood (0-5) Tomas/ul Urine Nitrite (NEGATIVE) Urine Bilirubin (NEGATIVE) Urine Urobilinogen (0-1) mg/dL Ur Leukocyte Esterase (NEGATIVE) Urine Microscopic RBC (0-2) /HPF Urine Microscopic WBC (0-5) /HPF Urine Culture Reflexed (NO) Urine Glucose (NEGATIVE) mg/dL Urine Opiates Level (NEGATIVE) Ur Methadone (NEGATIVE) Urine Barbiturates (NEGATIVE) Ur Phencyclidine (PCP) (NEGATIVE) Urine Amphetamine (NEGATIVE) U Benzodiazepine Level (NEGATIVE) Urine Cocaine (NEGATIVE) Urine Marijuana (THC) (NEGATIVE) Ethyl Alcohol < 10 (0-10) mg/dL Specimen Received - Progress Progress: improved Progress Note: 01/02/18 23:48 Improved, but still vomited few times, denies severe pain, afebrile, stable. I called Dr Meehan, covering Dr Quinones, discussed our results and patient's current condition, he agreed to admit him for observation. Patient was informed , he agreed. Discussed with : Zoran Will see patient in: hospital (observation) Counseled pt/family regarding: lab results, diagnosis, rad results - Departure Time of Disposition: 23:50 Departure Disposition: Observation Clinical Impression: Vomiting Qualifiers: Vomiting type: unspecified Vomiting Intractability: non-intractable Nausea presence: with nausea Qualified Code(s): R11.2 - Nausea with vomiting, unspecified Condition: Stable Critical Care Time: No Referrals: VALENTINA QUINONES [Primary Care Provider] -
[2018-01-02] MEDS ORDERED: Zofran 4 MG/2 ML VIAL ONE (20:08)
[2018-01-02] MEDS ORDERED: Sodium Chloride 0.9% 1000 ML 1,000 ML ONE ×2 (20:08→21:22)
[2018-01-02 20:25] LABS: BASOPHIL % 0.2 % (0.0-0.4); Basophil (Absolute #) 0.03 (0-0.4); Eosinophil % 1.2 % (0.00-5.0); Eosinophil (Absolute #) 0.16 (0-0.5); Granulocyte Absolute (ANC) 10.86 (1.4-6.9); Granulocytes % 84.2 % (36.0-66.0); Hematocrit 40.6 % (42-50); Hemoglobin 14.4 gm/dl (12.5-18.0); Lymphocyte (Absolute #) 1.09 (1.0-4.6); Lymphocytes % 8.4 % (24.0-44.0); Mean Cell Volume 86.2 fl (78-100); Mean Corpuscular Hemoglobin 30.6 pg (26-32); Mean Corpuscular Hgb Concent. 35.5 g/dl (32-36); Mean Platelet Volume 8.9 fl (6-9.5); Monocyte (Absolute #) 0.77 (0.0-1.3); Platelet Count 418 K/mm3 (150-450); Red Blood Count 4.71 M/mm3 (4.1-5.6); Red Cell Distribution Width 12.5 % (11.5-14.0); White Blood Count 12.9 K/mm3 (4.0-10.5)
[2018-01-02 20:42] LABS: A-aADO2 8; ABG HEMOGLOBIN 13.6; ABG POTASSIUM 3.3 (3.5-5.1); ARTERIAL BLOOD GAS BASE EXCESS 5.2 (-2.0-2.0); ARTERIAL BLOOD GAS FIO2 21 %; ARTERIAL BLOOD GAS PCO2 39 mmHg (35-45); ARTERIAL BLOOD GAS PO2 93 mmHg (75-100); ARTERIAL BLOOD GAS pH 7.48 (7.35-7.45); CARBOXYHEMOGLOBIN 2.1 % THgb (0.0-6.9); HGB O2 SAT 95.7 g/dF (94-100); Methhemoglobin 1.2 % (1.4-1.5); paO2 pAO1 0.92
[2018-01-02 20:43] LABS: ABG SITE RIGHT BRACHIAL
[2018-01-02 20:49] LABS: CK-Creatinine Phosphokinase 103 U/L (55-170)
[2018-01-02 20:52] LABS: LIPASE < 10 U/L (23-300)
[2018-01-02 20:53] LABS: ALBUMIN 4.7 g/dL (3.5-5.0); ALKALINE PHOSPHATASE 133 U/L (38-126); ANION GAP 18.7 MEQ/L (5-15); BLOOD UREA NITROGEN 24 mg/dL (9-20); CHLORIDE 102 mmol/L (98-107); Calcium 10.2 mg/dL (8.4-10.2); Carbon Dioxide 28 mmol/L (22-30); Creatinine 1 0.92 mg/dL (0.66-1.25); Glucose 202 mg/dL (74-106); Potassium 3.4 mmol/L (3.5-5.1); SGOT/AST 22 U/L (17-59); SGPT/ALT 21 U/L (0-50); SODIUM 145 mmol/L (137-145); Total Protein 8.2 g/dL (6.3-8.2)
[2018-01-02 20:54] LABS: ETHYL ALCOHOL < 10 mg/dL (0-10)
[2018-01-02] MEDS ORDERED: Reglan 10 MG/2 ML IV ONE (21:18)
[2018-01-02] MEDS ORDERED: Reglan 10 MG/2 ML ONE (21:22)
[2018-01-02 22:54] LABS: Appearance CLEAR (CLEAR); Specific Gravity 1.005 (1.005-1.025)
[2018-01-02 22:55] LABS: Glucose NEGATIVE (NEGATIVE); Ketones MODERATE (NEGATIVE); Leukocyte Esterase NEGATIVE (NEGATIVE); Nitrite NEGATIVE (NEGATIVE); Protein,Urine Dip 30 (Negative)
[2018-01-02 22:56] LABS: Bilirubin NEGATIVE (NEGATIVE); Blood TRACE NON-HEM Ery/ul (0-5); Urobilinogen NORMAL mg/dL (0-1)
[2018-01-02 23:00] LABS: RBC 0-2 /HPF (0-2); WBC 0-2 /HPF (0-5)
[2018-01-02 23:03] LABS: Amphetamine,Urine NEGATIVE (NEGATIVE); Barbiturate,Urine NEGATIVE (NEGATIVE); Benzodiazepine,Urine NEGATIVE (NEGATIVE); Cocaine,Urine NEGATIVE (NEGATIVE); Methadone,Urine NEGATIVE (NEGATIVE); Opiate,Urine NEGATIVE (NEGATIVE); PCP,Urine NEGATIVE (NEGATIVE); THC,Urine POSITIVE (NEGATIVE)
[2018-01-02] MEDS ORDERED: Zofran 4 MG/2 ML VIAL IV PRN (23:45)
[2018-01-03] MEDS ORDERED: Zofran 4 MG/2 ML VIAL IV ONE (00:07)
[2018-01-03] MEDS: NovoLOG Insulin SQ PRN ×4 (02:21→18:19)
[2018-01-03] MEDS: Sodium Chloride 0.9% W/ 20 mEq KCl/LITER 1,000 ML IV SCH ×3 (02:21→21:29)
[2018-01-03] MEDS: Reglan 10 MG/2 ML IV SCH ×4 (03:26→18:19)
[2018-01-03 05:45] LABS: BASOPHIL % 0.1 % (0.0-0.4); Basophil (Absolute #) 0.02 (0-0.4); Eosinophil (Absolute #) 0 (0-0.5); Granulocytes % 87.6 % (36.0-66.0); Hematocrit 36.3 % (42-50); Hemoglobin 12.7 gm/dl (12.5-18.0); Lymphocyte (Absolute #) 0.85 (1.0-4.6); Lymphocytes % 6.2 % (24.0-44.0); Mean Cell Volume 88.1 fl (78-100); Mean Corpuscular Hemoglobin 30.8 pg (26-32); Mean Platelet Volume 8.8 fl (6-9.5); Monocyte (Absolute #) 0.83 (0.0-1.3); Monocytes % 6.1 % (0.0-12.0); Platelet Count 377 K/mm3 (150-450); Red Blood Count 4.12 M/mm3 (4.1-5.6); Red Cell Distribution Width 12.3 % (11.5-14.0); White Blood Count 13.7 K/mm3 (4.0-10.5)
[2018-01-03 06:06] LABS: ANION GAP 16.3 MEQ/L (5-15); BLOOD UREA NITROGEN 20 mg/dL (9-20); CHLORIDE 103 mmol/L (98-107); Calcium 9.1 mg/dL (8.4-10.2); Carbon Dioxide 28 mmol/L (22-30); Creatinine 1 0.78 mg/dL (0.66-1.25); Glucose 226 mg/dL (74-106); Potassium 3.7 mmol/L (3.5-5.1); SODIUM 143 mmol/L (137-145)
--- NOTE | 2018-01-03 08:31 | XRAY ---
Indication: Nausea and vomiting. Comparison: October 16, 2017. Single portable chest again demonstrates normal heart, lungs, and bony thorax.
--- NOTE | 2018-01-03 08:31 | XRAY ---
Indication: Abdominal pain, nausea, and vomiting. Multiple contiguous axial images obtained through the abdomen and pelvis without contrast as ordered. Comparison: May 27, 2017. Lung bases remain clear. Heart is not enlarged. Noncontrasted stomach and bowel loops appear nonobstructed. There is now mild scattered colonic fecal debris throughout. Normal appendix. No free fluid/air. Remaining liver, gallbladder, pancreas, spleen, adrenal glands, kidneys, ureters, bladder, and aorta appear unremarkable for noncontrast exam. Osseous structures intact again with bilateral L5 spondylolysis without spondylolisthesis. No ventral or inguinal hernias. Stable right lower quadrant abdominal wall induration. Impression: 1. Mild fecal stasis without obstruction. 2. Stable L5 spondylolysis without spondylolisthesis. 3. No acute intra-abdominal/pelvic abnormalities on this noncontrast exam. CT DI 10.88
[2018-01-03] MEDS: Pepcid 20 MG VIAL IV SCH ×2 (08:35→21:29)
[2018-01-03] MEDS ORDERED: LOPRESSOR 5 MG/5 ML INJECTION IV PRN (08:48)
[2018-01-03] MEDS ORDERED: TYLENOL 325 MG PO PRN (08:49)
--- NOTE | 2018-01-03 09:26 | HP ---
HISTORY OF PRESENT ILLNESS: This is a 32 year-old patient with type 1 diabetes who is noncompliant. He actually has not been seen in our clinic since late 2015. I saw him in the hospital back in end of September to early October. The patient was strongly encouraged to follow up for his diabetic care but he never did so. The patient presented to the emergency department. According to the emergency room doctor's note complaining of vomiting after working outside all day. The patient stated he felt like he got too hot in the field. He works for a [employer]. The patient reports he did eat yesterday before he came in. Around 1500 hours he started having nausea and vomiting per emergency room report. He came to the emergency room about 1930 hours in the evening. The patient could not remember when he came. He states that he could not stop vomiting. He reports that he is checking his sugars. When asked how they were he said "Not too bad". The patient cannot tell me how much insulin he is taking or if even still has insulin at home right now. He continues to have nausea here in the hospital this morning. When I checked with his nurse he had not received any nausea medicine around 2000 hours last night. REVIEW OF SYSTEMS: He denies any pain anywhere. He denies chest pain. No dyspnea. He states he is urinating okay. He denies any diarrhea. He states no sore throat. PAST MEDICAL HISTORY: Diabetes mellitus type 2 with noncompliance. PAST SURGICAL HISTORY: None. MEDICATIONS: When I discharged him in September it was Lantus 24 units subcutaneously daily and Humalog 6 units t.i.d. with meals. ALLERGIES: NKDA. SOCIAL HISTORY: He states he lives with his brother. He denies any tobacco use. He reports that he does use marijuana and last used it two days ago. FAMILY HISTORY: Noncontributory. PHYSICAL EXAMINATION: VITAL SIGNS: Temperature current 98.4F, temperature max 98.4F, heart rate 92 to 109, respiratory rate 16 to 22, blood pressure 153 to 192 over 79 to 116 currently 171/82. Oxygen saturation 97 to 100% on room air. GENERAL: The patient is alert, nauseated, dry heaving, hiccups. He moves around quite a bit in the bed. CVS: He has a regular rate and rhythm. No murmurs, gallops or rubs are appreciated. CHEST: Clear to auscultation bilaterally. No crackles or wheezes. ABDOMEN: Soft, nontender, nondistended. EXTREMITIES: No clubbing, cyanosis or edema. SKIN: Tattoo's otherwise warm, dry and intact. LABORATORY DATA AND TESTS: On admission his white blood cell count was 12,900, repeat white blood cell count 13,700. He had a UA that had moderate ketones. Urine tox was positive for THC. His metabolic panel on admission potassium 3.4, BUN 24, glucose 202. This a.m. the potassium 3.7, glucose 226. He has had four serial negative troponins. He had CT of his abdomen and pelvis with mild fecal stasis without obstruction, stable L5 spondylosis without spondylolisthesis. No acute intra-abdominal pelvic abnormalities on the noncontrast exam. Chest x-ray was normal on portable. EKG sinus rhythm with no ST-T wave changes. ASSESSMENT AND PLAN: 1) DIABETES MELLITUS TYPE 1, UNCONTROLLED: He has a long history of noncompliance. We will restart Lantus. I will do half the dose I was giving him at the time of his discharge or close to half which is 10 units. He has a low dose sliding scale of NovoLog ordered. He is currently NPO. He continues to have vomiting. Will continue with normal saline with 20 mEq of potassium chloride at 100 ml/hour and continue Accu-Chek's every six hours. His vomiting is probably related to diabetes as he had moderate ketones in his urine when he came in. Will also recheck his ketones this morning. 2) VOMITING: Again most likely related to his diabetes type 1 and noncompliance. He does have Reglan ordered and famotidine as well as Zofran. Will continue fluids and medications. 3) ILLICIT DRUG USE: The patient was not very cooperative in answering questions at this time so I did not approach the subject yet but he should quit smoking marijuana. It has been addressed with him in the past. 4) DEEP VENOUS THROMBOSIS PROPHYLAXIS: Will do JAMES spencer and SCD's.
[2018-01-03] MEDS: Lantus Insulin SQ SCH ×2 (09:47→10:57)
[2018-01-03 12:49] LABS: Appearance CLEAR (CLEAR); Specific Gravity 1.005 (1.005-1.025)
[2018-01-03 12:50] LABS: Bilirubin NEGATIVE (NEGATIVE); Blood LARGE Ery/ul (0-5); Glucose 1000 mg/dL (NEGATIVE); Ketones MODERATE-40 (NEGATIVE); Leukocyte Esterase NEGATIVE (NEGATIVE); Nitrite NEGATIVE (NEGATIVE); Protein,Urine Dip 30 (Negative); Urobilinogen NORMAL mg/dL (0-1)
[2018-01-03 12:57] LABS: Bacteria FEW /HPF (NEGATIVE)
[2018-01-04] MEDS: Reglan 10 MG/2 ML IV SCH ×5 (00:16→23:55)
[2018-01-04] MEDS: NovoLOG Insulin SQ PRN ×2 (02:43→07:42)
[2018-01-04 05:24] LABS: BASOPHIL % 0.2 % (0.0-0.4); Basophil (Absolute #) 0.04 (0-0.4); Eosinophil % 1.3 % (0.00-5.0); Eosinophil (Absolute #) 0.21 (0-0.5); Granulocyte Absolute (ANC) 13.73 (1.4-6.9); Granulocytes % 84.1 % (36.0-66.0); Hemoglobin 13.8 gm/dl (12.5-18.0); Lymphocyte (Absolute #) 1.33 (1.0-4.6); Lymphocytes % 8.1 % (24.0-44.0); Mean Cell Volume 86.7 fl (78-100); Mean Corpuscular Hemoglobin 30.7 pg (26-32); Mean Corpuscular Hgb Concent. 35.4 g/dl (32-36); Mean Platelet Volume 8.6 fl (6-9.5); Monocyte (Absolute #) 1.03 (0.0-1.3); Monocytes % 6.3 % (0.0-12.0); Platelet Count 365 K/mm3 (150-450); Red Cell Distribution Width 12.3 % (11.5-14.0); White Blood Count 16.3 K/mm3 (4.0-10.5)
[2018-01-04 05:41] LABS: ANION GAP 13.7 MEQ/L (5-15); BLOOD UREA NITROGEN 11 mg/dL (9-20); CHLORIDE 99 mmol/L (98-107); Calcium 9.2 mg/dL (8.4-10.2); Carbon Dioxide 27 mmol/L (22-30); Creatinine 1 0.68 mg/dL (0.66-1.25); Glucose 219 mg/dL (74-106); Potassium 3.7 mmol/L (3.5-5.1); SODIUM 135 mmol/L (137-145)
[2018-01-04] MEDS: Lantus Insulin SQ SCH ×3 (07:41→10:21)
[2018-01-04] MEDS: Pepcid 20 MG VIAL IV SCH ×2 (07:41→22:03)
[2018-01-04] MEDS ORDERED: Lantus Insulin SQ SCH (07:57)
[2018-01-04] MEDS: Sodium Chloride 0.9% W/ 20 mEq KCl/LITER 1,000 ML IV SCH ×2 (09:04→17:56)
[2018-01-04] MEDS ORDERED: Zestril 10 MG PO SCH ×2 (10:00)
--- NOTE | 2018-01-04 11:59 | PCM.NOTE ---
Date and Time: 01/04/18 0757 Subjective Assessment: patient reports he vomited all night long in spite of being NPO, per nursing he was observed drinking from the faucet. has not requested zofran for the last 24 hours Objective Exam General Appearance: no apparent distress, alert Respiratory Exam: normal breath sounds, lungs clear, No respiratory distress Cardiovascular Exam: regular rate/rhythm, normal heart sounds Gastrointestinal/Abdomen Exam: soft, No tenderness, No mass Extremity Exam: normal inspection, normal range of motion OBJECTIVE DATA Vital Signs: Vital Signs - 24 hr Temp Pulse Resp BP Pulse Ox 01/04/18 07:16 97.7 F 87 18 180/97 97 01/04/18 03:47 98.3 F 80 18 154/94 01/04/18 00:15 98.2 F 91 H 20 155/82 98 01/03/18 20:30 98.4 F 82 16 125/72 97 01/03/18 16:00 99 F 86 16 137/80 97 01/03/18 11:56 98.2 F 103 H 20 130/67 98 Pain Assessment - Last Documented Pain Scale Used 0-10 Pain Scale Intake and Output: Intake & Output 01/01/18 01/02/18 01/03/18 01/04/18 11:59 11:59 11:59 11:59 Intake Total 381 0 Output Total 2050 1000 Balance -1669 -1000 Weight 69.5 kg Lab Results: Accuchecks Date 01/04/18 Date 01/04/18 Date 01/03/18 Time 07:43 Time 02:30 Time 20:20 Accucheck Value: 284 Accucheck Value: 236 Accucheck Value: 168 Accucheck Value: 208 Accucheck Value: 223 Lab Results-Last 24 Hours 01/03/18 01/03/18 01/03/18 Range/Units 08:17 09:00 12:40 WBC (4.0-10.5) K/mm3 RBC (4.1-5.6) M/mm3 Hgb (12.5-18.0) gm/dl Hct (42-50) % MCV (78-100) fl MCH (26-32) pg MCHC (32-36) g/dl RDW (11.5-14.0) % Plt Count (150-450) K/mm3 MPV (6-9.5) fl Gran % (36.0-66.0) % Eos # (Auto) (0-0.5) Absolute Lymphs (auto) (1.0-4.6) Absolute Monos (auto) (0.0-1.3) Lymphocytes % (24.0-44.0) % Monocytes % (0.0-12.0) % Eosinophils % (0.00-5.0) % Basophils % (0.0-0.4) % Absolute Granulocytes (1.4-6.9) Basophils # (0-0.4) Sodium (137-145) mmol/L Potassium (3.5-5.1) mmol/L Chloride (98-107) mmol/L Carbon Dioxide (22-30) mmol/L Anion Gap (5-15) MEQ/L BUN (9-20) mg/dL Creatinine (0.66-1.25) mg/dL Estimated GFR ML/MIN Glucose (74-106) mg/dL Hemoglobin A1c 9.40 H (4.5-6.0) % Calcium (8.4-10.2) mg/dL Troponin I < 0.012 (0.000-0.034) ng/mL Ur Collection Type CLEAN CATCH Urine Color YELLOW (YELLOW) Urine Appearance CLEAR (CLEAR) Urine pH 8.0 (5-6) Ur Specific [place] 1.005 (1.005-1.025) Urine Protein 30 (Negative) Urine Ketones MODERATE-40 (NEGATIVE) Urine Blood LARGE (0-5) Tomas/ul Urine Nitrite NEGATIVE (NEGATIVE) Urine Bilirubin NEGATIVE (NEGATIVE) Urine Urobilinogen NORMAL (0-1) mg/dL Ur Leukocyte Esterase NEGATIVE (NEGATIVE) Urine Microscopic RBC 2-5 (0-2) /HPF Urine Bacteria FEW (NEGATIVE) /HPF Urine Glucose 1000 (NEGATIVE) mg/dL Specimen Received 01/03/18 1245 01/04/18 01/04/18 Range/Units 05:15 05:15 WBC 16.3 H (4.0-10.5) K/mm3 RBC 4.50 (4.1-5.6) M/mm3 Hgb 13.8 (12.5-18.0) gm/dl Hct 39.0 L (42-50) % MCV 86.7 (78-100) fl MCH 30.7 (26-32) pg MCHC 35.4 (32-36) g/dl RDW 12.3 (11.5-14.0) % Plt Count 365 (150-450) K/mm3 MPV 8.6 (6-9.5) fl Gran % 84.1 H (36.0-66.0) % Eos # (Auto) 0.21 (0-0.5) Absolute Lymphs (auto) 1.33 (1.0-4.6) Absolute Monos (auto) 1.03 (0.0-1.3) Lymphocytes % 8.1 L (24.0-44.0) % Monocytes % 6.3 (0.0-12.0) % Eosinophils % 1.3 (0.00-5.0) % Basophils % 0.2 (0.0-0.4) % Absolute Granulocytes 13.73 H (1.4-6.9) Basophils # 0.04 (0-0.4) Sodium 135 L (137-145) mmol/L Potassium 3.7 (3.5-5.1) mmol/L Chloride 99 (98-107) mmol/L Carbon Dioxide 27 (22-30) mmol/L Anion Gap 13.7 (5-15) MEQ/L BUN 11 (9-20) mg/dL Creatinine 0.68 (0.66-1.25) mg/dL Estimated GFR > 60.0 ML/MIN Glucose 219 H (74-106) mg/dL Hemoglobin A1c (4.5-6.0) % Calcium 9.2 (8.4-10.2) mg/dL Troponin I (0.000-0.034) ng/mL Ur Collection Type Urine Color (YELLOW) Urine Appearance (CLEAR) Urine pH (5-6) Ur Specific [place] (1.005-1.025) Urine Protein (Negative) Urine Ketones (NEGATIVE) Urine Blood (0-5) Tomas/ul Urine Nitrite (NEGATIVE) Urine Bilirubin (NEGATIVE) Urine Urobilinogen (0-1) mg/dL Ur Leukocyte Esterase (NEGATIVE) Urine Microscopic RBC (0-2) /HPF Urine Bacteria (NEGATIVE) /HPF Urine Glucose (NEGATIVE) mg/dL Specimen Received Assessment/Plan (1) Vomiting Current Visit: Yes Status: Acute Onset Date: ~01/03/18 Qualifiers: Vomiting type: unspecified Vomiting Intractability: non-intractable Nausea presence: with nausea Qualified Code(s): R11.2 - Nausea with vomiting, unspecified Assessment & Plan: continue hydration, recommend zofran and hopefully will improve with tighter blood glucose control Code(s): R11.10 - VOMITING, UNSPECIFIED (2) Diabetes mellitus type I Current Visit: No Status: Chronic Qualifiers: Assessment & Plan: sugars consistently over 200, will increase lantus from 10 to 20 units daily (3) Hypertension Current Visit: Yes Status: Acute Assessment & Plan: bp persistently elevated, will add lisinopril due to diabetes Code(s): I10 - ESSENTIAL (PRIMARY) HYPERTENSION
[2018-01-04] MEDS: Zestril 10 MG PO SCH ×2 (16:29→22:08)
[2018-01-05] MEDS: Sodium Chloride 0.9% W/ 20 mEq KCl/LITER 1,000 ML IV SCH (03:07)
[2018-01-05 05:28] LABS: BASOPHIL % 0.3 % (0.0-0.4); Basophil (Absolute #) 0.03 (0-0.4); Eosinophil % 2.8 % (0.00-5.0); Eosinophil (Absolute #) 0.28 (0-0.5); Granulocyte Absolute (ANC) 6.49 (1.4-6.9); Granulocytes % 63.9 % (36.0-66.0); Hematocrit 38.9 % (42-50); Hemoglobin 13.9 gm/dl (12.5-18.0); Lymphocyte (Absolute #) 2.11 (1.0-4.6); Lymphocytes % 20.8 % (24.0-44.0); Mean Cell Volume 85.5 fl (78-100); Mean Corpuscular Hemoglobin 30.5 pg (26-32); Mean Corpuscular Hgb Concent. 35.7 g/dl (32-36); Mean Platelet Volume 8.6 fl (6-9.5); Monocyte (Absolute #) 1.24 (0.0-1.3); Monocytes % 12.2 % (0.0-12.0); Platelet Count 374 K/mm3 (150-450); Red Blood Count 4.55 M/mm3 (4.1-5.6); White Blood Count 10.2 K/mm3 (4.0-10.5)
[2018-01-05 05:42] LABS: ANION GAP 9.8 MEQ/L (5-15); BLOOD UREA NITROGEN 10 mg/dL (9-20); CHLORIDE 100 mmol/L (98-107); Calcium 9.1 mg/dL (8.4-10.2); Carbon Dioxide 28 mmol/L (22-30); Creatinine 1 0.76 mg/dL (0.66-1.25); Glucose 178 mg/dL (74-106); Potassium 3.8 mmol/L (3.5-5.1); SODIUM 134 mmol/L (137-145)
[2018-01-05] MEDS: Reglan 10 MG/2 ML IV SCH (06:05)
[2018-01-05 08:08] VITALS: BP 185/103; PULSE 79; O2SAT 99
--- NOTE | 2018-01-05 08:21 | PCM.DS ---
Discharge Summary Date of Admission: 01/03/18 01:14 Admitting Physician: PARK LUA Primary Care Provider: VALENTINA ESPINO Allergies Allergies No Known Drug Allergies Allergy (Verified 01/02/18 19:29) Hospital Summary - Hospital Course Hospital Course: patient was admitted with vomiting and high blood sugars, doing better at the time of discharge. tolerating po now and feels well. - Vitals & Intake/Output Vital Signs: Vital Signs Temperature 97.9 F 01/05/18 08:00 Pulse Rate 79 01/05/18 08:00 Respiratory Rate 18 01/05/18 08:00 Blood Pressure 185/103 01/05/18 08:00 O2 Sat by Pulse Oximetry 99 01/05/18 08:00 Intake & Output: Intake & Output 01/02/18 01/03/18 01/04/18 01/05/18 11:59 11:59 11:59 11:59 Intake Total 381 0 2844 Output Total 2050 1600 2875 Balance -1669 -1600 -31 Weight 69.5 kg - Lab Result Diagrams: 01/05/18 04:55 01/05/18 04:55 Lab Results-Last 24 Hrs: Accuchecks Date 01/05/18 Date 01/04/18 Date 01/04/18 Time 08:09 Time 22:00 Time 14:10 Accucheck Value: 198 Accucheck Value: 137 Accucheck Value: 149 Lab Results-Last 24 Hours 01/05/18 01/05/18 Range/Units 04:55 04:55 WBC 10.2 (4.0-10.5) K/mm3 RBC 4.55 (4.1-5.6) M/mm3 Hgb 13.9 (12.5-18.0) gm/dl Hct 38.9 L (42-50) % MCV 85.5 (78-100) fl MCH 30.5 (26-32) pg MCHC 35.7 (32-36) g/dl RDW 12.0 (11.5-14.0) % Plt Count 374 (150-450) K/mm3 MPV 8.6 (6-9.5) fl Gran % 63.9 (36.0-66.0) % Eos # (Auto) 0.28 (0-0.5) Absolute Lymphs (auto) 2.11 (1.0-4.6) Absolute Monos (auto) 1.24 (0.0-1.3) Lymphocytes % 20.8 L (24.0-44.0) % Monocytes % 12.2 H (0.0-12.0) % Eosinophils % 2.8 (0.00-5.0) % Basophils % 0.3 (0.0-0.4) % Absolute Granulocytes 6.49 (1.4-6.9) Basophils # 0.03 (0-0.4) Sodium 134 L (137-145) mmol/L Potassium 3.8 (3.5-5.1) mmol/L Chloride 100 (98-107) mmol/L Carbon Dioxide 28 (22-30) mmol/L Anion Gap 9.8 (5-15) MEQ/L BUN 10 (9-20) mg/dL Creatinine 0.76 (0.66-1.25) mg/dL Estimated GFR > 60.0 ML/MIN Glucose 178 H (74-106) mg/dL Calcium 9.1 (8.4-10.2) mg/dL Micro Results-Entire Visit: Accuchecks Date 01/05/18 Date 01/04/18 Date 01/04/18 Time 08:09 Time 22:00 Time 14:10 Accucheck Value: 198 Accucheck Value: 137 Accucheck Value: 149 Discharge Exam General Appearance: no apparent distress, alert Respiratory Exam: normal breath sounds, lungs clear, No respiratory distress Cardiovascular Exam: regular rate/rhythm, normal heart sounds Gastrointestinal/Abdomen Exam: soft, No tenderness, No mass Extremity Exam: normal inspection, normal range of motion Final Diagnosis/Problem List - Final Discharge Diagnosis/Problem (1) Vomiting Current Visit: Yes Status: Acute Onset Date: ~01/03/18 Assessment & Plan: resolved at this time (2) Diabetes mellitus type I Current Visit: No Status: Chronic Assessment & Plan: resume home insulin (3) Hypertension Current Visit: Yes Status: Acute Assessment & Plan: started on lisinopril 10mg bid and bp has been better controlled. - Discharge Disposition: Home, Self-Care Condition: Stable Prescriptions: New Lisinopril 10 mg [Zestril 10 MG] 10 mg PO BID #60 tablet Continue Insulin Lispro [Humalog] 6 unit SQ TIDWM #10 ml Insulin Glargine [Lantus Insulin] 24 unit SQ 1700 #10 ml Follow up with: VALENTINA ESPINO [Primary Care Provider] - 1 Week
== END 2018-01-05 08:50 | disposition home or self-care (01) ==
LOC: ED 19:10 → MED SURG 01-03 01:14
PROVIDERS: ADMIT Family Medicine; ATTEND Family Medicine
DX: R11.12 Projectile vomiting (principal); E10.9 Type 1 diabetes mellitus without complications; I10 Essential (primary) hypertension; F15.90 Other stimulant use, unspecified, uncomplicated
CPT/HCPCS: 36000; 36415; 36600; 71045; 74176; 80048; 80053; 80307; 81000; 82375; 82550; 82803; 82962; 83036; 83605; 83690; 83735; 84484; 85025; 93005; 93041; 96360; 96361; 96374; 96375; 96376; 99285; G0378; J2405; A9270-GY; G0480

== ENCOUNTER 2018-03-11 22:43 | Observation (INO) | payer OTHER ==
[2018-03-11] MEDS ORDERED: Hydromorphone 1 mg/ml Ampule IV ONE (23:25)
[2018-03-11] MEDS ORDERED: Sodium Chloride 0.9% 1000 ML 1,000 ML IV STA (23:25)
[2018-03-11] MEDS ORDERED: Zofran 4 MG/2 ML VIAL IV ONE (23:25)
[2018-03-11 23:58] LABS: Lactic Acid 3.3 (0.4-2.0)
[2018-03-12 00:12] LABS: BASOPHIL % 0.2 % (0.0-0.4); Basophil (Absolute #) 0.03 (0-0.4); Eosinophil (Absolute #) 0 (0-0.5); Granulocyte Absolute (ANC) 14.96 (1.4-6.9); Granulocytes % 91.3 % (36.0-66.0); Hematocrit 42.4 % (42-50); Hemoglobin 14.8 gm/dl (12.5-18.0); Lymphocytes % 4.3 % (24.0-44.0); Mean Cell Volume 85.1 fl (78-100); Mean Corpuscular Hemoglobin 29.7 pg (26-32); Mean Corpuscular Hgb Concent. 34.9 g/dl (32-36); Monocyte (Absolute #) 0.69 (0.0-1.3); Monocytes % 4.2 % (0.0-12.0); Platelet Count 400 K/mm3 (150-450); Red Blood Count 4.98 M/mm3 (4.1-5.6); Red Cell Distribution Width 12.3 % (11.5-14.0); White Blood Count 16.4 K/mm3 (4.0-10.5)
--- NOTE | 2018-03-12 00:14 | ERPHSYRPT ---
- History of Present Illness Time Seen by Provider: 03/11/18 23:25 Historian: patient, family Exam Limitations: no limitations Patient Subjective Stated Complaint: PT STATES HE HAS BEEN VOMITING ALL DAY TODAY; UNSURE OF HOW MANY TIMES HE HAS VOMITED; CO ABDOMINAL PAIN AND BURNING IN HIS CHEST. Triage Nursing Assessment: PT A&O X3; SKIN P, COOL, & CLAMMY; PT PRESENTS VERY LETHARGIC AND WITHDRAWM; DIFFICULT TO CONVERSE; ASSISTED TO ROOM PER WHEELCHAIR ; FRIEND AT BEDSIDE. Physician History: 32 Y/O DIABETIC WHITE MALE PRESENTS WITH 2 TO 3 DAY H/O ABD PAIN, N/V/D. PT NOT GIVING HX SECONDARY TO PAIN AND TRYING TO FOCUS ON NOT VOMITING Timing/Duration: day(s) (2 TO 3 DAYS) Activities at Onset: none Quality: aching Abdominal Pain Onset Location: generalized abdomen Pain Radiation: no radiation Severity of Pain-Max: moderate Severity of Pain-Current: moderate Modifying Factors: Improves With: nothing Associated Symptoms: diarrhea, loss of appetite, nausea, vomiting Previous symptoms: same symptoms as today Allergies/Adverse Reactions: No Known Drug Allergies Allergy (Verified 03/11/18 23:18) Hx Tetanus, Diphtheria Vaccination/Date Given: Yes Hx Influenza Vaccination/Date Given: No Hx Pneumococcal Vaccination/Date Given: No Immunizations Up to Date: Yes - Review of Systems Constitutional: Lethargy Eyes: No Symptoms, No Eye Pain, No Eye Redness Ears, Nose, & Throat: No Symptoms, No Ear Pain, No Mouth Pain Respiratory: No Symptoms, No Cough, No Dyspnea Cardiac: No Symptoms Abdominal/Gastrointestinal: Abdominal Pain, Nausea, Vomiting, Diarrhea, Appetite Changes Genitourinary Symptoms: No Symptoms, No Dysuria, No Frequency, No Hematuria, No Incontinence, No Urinary Retention, No Flank Pain Musculoskeletal: No Symptoms, No Back Pain Skin: No Symptoms Neurological: No Symptoms, No Dizziness, No Headache Psychological: No Symptoms Endocrine: No Symptoms Hematologic/Lymphatic: No Symptoms Immunological/Allergic: No Symptoms All Other Systems: Reviewed and Negative - Past Medical History Pertinent Past Medical History: Yes Neurological History: No Pertinent History ENT History: No Pertinent History Cardiac History: No Pertinent History Respiratory History: No Pertinent History Endocrine Medical History: Diabetes Type I Musculoskeletal History: No Pertinent History GI Medical History: No Pertinent History History: No Pertinent History Psycho-Social History: Anxiety, Depression Male Reproductive Disorders: No Pertinent History Other Medical History: DKA - Past Surgical History Past Surgical History: No Neuro Surgical History: No Pertinent History Cardiac: No Pertinent History Respiratory: No Pertinent History Gastrointestinal: No Pertinent History Genitourinary: No Pertinent History Musculoskeletal: No Pertinent History Male Surgical History: No Pertinent History Other Surgical History: PT SHAKES HEAD "NO" WHEN ASKED IF HE HAS EVER HAD SURGERY - Social History Smoking Status: Never smoker Exposure to second hand smoke: No Drug Use: none Patient Lives Alone: No - Nursing Vital Signs Nursing Vital Signs: Initial Vital Signs Temperature 98 F 03/11/18 23:10 Pulse Rate 104 H 03/11/18 23:10 Respiratory Rate 22 03/11/18 23:10 Blood Pressure 159/96 03/11/18 23:10 O2 Sat by Pulse Oximetry 98 03/11/18 23:10 Pain Scale Pain Intensity 10 - Physical Exam General Appearance: moderate distress, thin Eye Exam: PERRL/EOMI, eyes nml inspection Ears, Nose, Throat Exam: normal ENT inspection Neck Exam: normal inspection, non-tender, supple, full range of motion Respiratory Exam: normal breath sounds, lungs clear, airway intact, No chest tenderness, No respiratory distress, No accessory muscle use, No wheezing, No stridor Cardiovascular Exam: regular rate/rhythm, normal heart sounds, normal peripheral pulses Gastrointestinal/Abdomen Exam: soft, normal bowel sounds, tenderness ( GENERALIZED), guarding, No rebound Rectal Exam: deferred Back Exam: normal inspection, normal range of motion, No CVA tenderness Extremity Exam: normal inspection, normal range of motion, pelvis stable Neurologic Exam: oriented x 3, 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 network 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 II-XII nml as tested, normal mood/affect Skin Exam: normal color, warm, dry Lymphatic Exam: No adenopathy SpO2 Interpretation: normal SpO2: 98 Oxygen Delivery: Room Air - Course Nursing assessment & vital signs reviewed: Yes Ordered Tests: Active Orders 24 hr Category Date Time Status ACCUCHECK [Accucheck] STAT Care 03/12/18 02:01 Active IV Insertion STAT Care 03/11/18 23:25 Active NPO (ED) STAT Care 03/11/18 23:25 Active AMYLASE Stat Lab 03/11/18 23:55 Completed CBC W DIFF Stat Lab 03/11/18 23:55 Completed CMP Stat Lab 03/11/18 23:55 Completed CULTURE,URINE Stat Lab 03/12/18 02:47 Received LIPASE Stat Lab 03/11/18 23:55 Completed Lactic Acid Stat Lab 03/11/18 23:53 Completed Lactic Acid Stat Lab 03/12/18 02:10 Completed Lactic Acid Stat Lab 03/12/18 04:40 Completed UA W/ MICROSCOPIC Stat Lab 03/12/18 02:47 Completed Urine Triage Profile Stat Lab 03/12/18 02:47 Completed Transfer Order Routine Transfer 03/12/18 Ordered Medication Summary Discontinued Medications Generic Name Dose Route Start Last Admin Trade Name Kelsie PRN Reason Stop Dose Admin Hydromorphone HCl 0.5 mg 03/11/18 23:25 03/12/18 01:05 Hydromorphone 1 Mg/Ml Ampule IV 03/11/18 23:26 0.5 mg STAT ONE Administration Hydromorphone HCl Confirm 03/12/18 01:00 Dilaudid 2 Mg Injection Administered 03/12/18 01:01 Dose 2 mg .ROUTE .STK-MED ONE Sodium Chloride 1,000 mls @ 999 mls/hr 03/11/18 23:25 03/12/18 02:45 Sodium Chloride 0.9% 1000 Ml IV 03/12/18 00:25 Infused .Q1H1M STA Infusion Sodium Chloride 1,000 mls @ 999 mls/hr 03/12/18 00:51 03/12/18 02:44 Sodium Chloride 0.9% 1000 Ml IV 03/12/18 01:51 Infused .Q1H1M STA Infusion Sodium Chloride Confirm 03/12/18 01:00 Sodium Chloride 0.9% 1000 Ml Administered 03/12/18 01:01 Dose 1,000 mls @ ud .ROUTE .STK-MED ONE Sodium Chloride Confirm 03/12/18 01:57 Sodium Chloride 0.9% 1000 Ml Administered 03/12/18 01:58 Dose 1,000 mls @ ud .ROUTE .STK-MED ONE Meropenem 1 g/ Sodium Chloride 100 mls @ 200 mls/hr 03/12/18 02:37 03/12/18 03:10 IV 03/12/18 03:06 200 mls/hr STAT ONE Administration Sodium Chloride Confirm 03/12/18 02:47 Sodium Chloride 0.9% 100 Ml Ivpb Administered 03/12/18 02:48 Dose 100 mls @ ud IV .STK-MED ONE Insulin Human Regular 15 unit 03/12/18 00:44 03/12/18 01:06 Novolin R IV 03/12/18 00:45 15 unit STAT ONE Administration Insulin Human Regular Confirm 03/12/18 00:59 Novolin R Administered 03/12/18 01:00 Dose 15 unit .ROUTE .STK-MED ONE Meropenem Confirm 03/12/18 02:47 Merrem 1 Gm Administered 03/12/18 02:48 Dose 1 g IV .STK-MED ONE Ondansetron HCl 4 mg 03/11/18 23:25 03/12/18 02:03 Zofran 4 Mg/2 Ml Vial IV 03/11/18 23:26 Not Given STAT ONE Ondansetron HCl Confirm 03/12/18 00:58 Zofran 4 Mg/2 Ml Vial Administered 03/12/18 00:59 Dose 4 mg .ROUTE .STK-MED ONE Promethazine HCl 12.5 mg 03/12/18 00:54 03/12/18 01:05 Phenergan 25 Mg Inj IV 03/12/18 00:55 12.5 mg STAT ONE Administration Promethazine HCl Confirm 03/12/18 01:03 Phenergan 25 Mg Inj Administered 03/12/18 01:04 Dose 25 mg .ROUTE .STK-MED ONE Lab/Rad Data: Laboratory Result Diagrams 03/11/18 23:55 03/11/18 23:55 Laboratory Results 03/12/18 03/12/18 03/12/18 Range/Units 04:40 02:47 02:47 WBC (4.0-10.5) K/mm3 RBC (4.1-5.6) M/mm3 Hgb (12.5-18.0) gm/dl Hct (42-50) % MCV (78-100) fl MCH (26-32) pg MCHC (32-36) g/dl RDW (11.5-14.0) % Plt Count (150-450) K/mm3 MPV (6-9.5) fl Gran % (36.0-66.0) % Eos # (Auto) (0-0.5) Absolute Lymphs (auto) (1.0-4.6) Absolute Monos (auto) (0.0-1.3) Lymphocytes % (24.0-44.0) % Monocytes % (0.0-12.0) % Eosinophils % (0.00-5.0) % Basophils % (0.0-0.4) % Absolute Granulocytes (1.4-6.9) Basophils # (0-0.4) Sodium (137-145) mmol/L Potassium (3.5-5.1) mmol/L Chloride (98-107) mmol/L Carbon Dioxide (22-30) mmol/L Anion Gap (5-15) MEQ/L BUN (9-20) mg/dL Creatinine (0.66-1.25) mg/dL Estimated GFR ML/MIN Glucose (74-106) mg/dL Lactic Acid 1.8 (0.4-2.0) Calcium (8.4-10.2) mg/dL Total Bilirubin (0.2-1.3) mg/dL AST (17-59) U/L ALT (0-50) U/L Alkaline Phosphatase (38-126) U/L Serum Total Protein (6.3-8.2) g/dL Albumin (3.5-5.0) g/dL Amylase (30-110) U/L Lipase (23-300) U/L Ur Collection Type VOID Urine Color YELLOW (YELLOW) Urine Appearance CLEAR (CLEAR) Urine pH 5.0 (5-6) Ur Specific [place] 1.015 (1.005-1.025) Urine Protein 30 (Negative) Urine Ketones NEGATIVE (NEGATIVE) Urine Blood 50 (0-5) Tomas/ul Urine Nitrite NEGATIVE (NEGATIVE) Urine Bilirubin NEGATIVE (NEGATIVE) Urine Urobilinogen NORMAL (0-1) mg/dL Ur Leukocyte Esterase NEGATIVE (NEGATIVE) Urine Microscopic RBC 2-5 (0-2) /HPF Urine Culture Reflexed YES (NO) Urine Glucose 1000 (NEGATIVE) mg/dL Urine Opiates Level NEGATIVE (NEGATIVE) Ur Methadone NEGATIVE (NEGATIVE) Urine Barbiturates NEGATIVE (NEGATIVE) Ur Phencyclidine (PCP) NEGATIVE (NEGATIVE) Urine Amphetamine NEGATIVE (NEGATIVE) U Benzodiazepine Level NEGATIVE (NEGATIVE) Urine Cocaine NEGATIVE (NEGATIVE) Urine Marijuana (THC) POSITIVE (NEGATIVE) Specimen Received 03/12/18 0250 03/12/18 03/11/18 03/11/18 Range/Units 02:10 23:55 23:55 WBC 16.4 H (4.0-10.5) K/mm3 RBC 4.98 (4.1-5.6) M/mm3 Hgb 14.8 (12.5-18.0) gm/dl Hct 42.4 (42-50) % MCV 85.1 (78-100) fl MCH 29.7 (26-32) pg MCHC 34.9 (32-36) g/dl RDW 12.3 (11.5-14.0) % Plt Count 400 (150-450) K/mm3 MPV 9.0 (6-9.5) fl Gran % 91.3 H (36.0-66.0) % Eos # (Auto) 0 (0-0.5) Absolute Lymphs (auto) 0.70 L (1.0-4.6) Absolute Monos (auto) 0.69 (0.0-1.3) Lymphocytes % 4.3 L (24.0-44.0) % Monocytes % 4.2 (0.0-12.0) % Eosinophils % 0.0 (0.00-5.0) % Basophils % 0.2 (0.0-0.4) % Absolute Granulocytes 14.96 H (1.4-6.9) Basophils # 0.03 (0-0.4) Sodium 135 L (137-145) mmol/L Potassium 4.8 (3.5-5.1) mmol/L Chloride 95 L (98-107) mmol/L Carbon Dioxide 19 L (22-30) mmol/L Anion Gap 25.3 H (5-15) MEQ/L BUN 25 H (9-20) mg/dL Creatinine 0.93 (0.66-1.25) mg/dL Estimated GFR > 60.0 ML/MIN Glucose 512 H* (74-106) mg/dL Lactic Acid 4.1 H (0.4-2.0) Calcium 9.5 (8.4-10.2) mg/dL Total Bilirubin 1.50 H (0.2-1.3) mg/dL AST 36 (17-59) U/L ALT 30 (0-50) U/L Alkaline Phosphatase 115 (38-126) U/L Serum Total Protein 7.8 (6.3-8.2) g/dL Albumin 4.7 (3.5-5.0) g/dL Amylase 109 (30-110) U/L Lipase < 10 L (23-300) U/L Ur Collection Type Urine Color (YELLOW) Urine Appearance (CLEAR) Urine pH (5-6) Ur Specific [place] (1.005-1.025) Urine Protein (Negative) Urine Ketones (NEGATIVE) Urine Blood (0-5) Tomas/ul Urine Nitrite (NEGATIVE) Urine Bilirubin (NEGATIVE) Urine Urobilinogen (0-1) mg/dL Ur Leukocyte Esterase (NEGATIVE) Urine Microscopic RBC (0-2) /HPF Urine Culture Reflexed (NO) Urine Glucose (NEGATIVE) mg/dL Urine Opiates Level (NEGATIVE) Ur Methadone (NEGATIVE) Urine Barbiturates (NEGATIVE) Ur Phencyclidine (PCP) (NEGATIVE) Urine Amphetamine (NEGATIVE) U Benzodiazepine Level (NEGATIVE) Urine Cocaine (NEGATIVE) Urine Marijuana (THC) (NEGATIVE) Specimen Received 03/11/18 Range/Units 23:53 WBC (4.0-10.5) K/mm3 RBC (4.1-5.6) M/mm3 Hgb (12.5-18.0) gm/dl Hct (42-50) % MCV (78-100) fl MCH (26-32) pg MCHC (32-36) g/dl RDW (11.5-14.0) % Plt Count (150-450) K/mm3 MPV (6-9.5) fl Gran % (36.0-66.0) % Eos # (Auto) (0-0.5) Absolute Lymphs (auto) (1.0-4.6) Absolute Monos (auto) (0.0-1.3) Lymphocytes % (24.0-44.0) % Monocytes % (0.0-12.0) % Eosinophils % (0.00-5.0) % Basophils % (0.0-0.4) % Absolute Granulocytes (1.4-6.9) Basophils # (0-0.4) Sodium (137-145) mmol/L Potassium (3.5-5.1) mmol/L Chloride (98-107) mmol/L Carbon Dioxide (22-30) mmol/L Anion Gap (5-15) MEQ/L BUN (9-20) mg/dL Creatinine (0.66-1.25) mg/dL Estimated GFR ML/MIN Glucose (74-106) mg/dL Lactic Acid 3.3 H (0.4-2.0) Calcium (8.4-10.2) mg/dL Total Bilirubin (0.2-1.3) mg/dL AST (17-59) U/L ALT (0-50) U/L Alkaline Phosphatase (38-126) U/L Serum Total Protein (6.3-8.2) g/dL Albumin (3.5-5.0) g/dL Amylase (30-110) U/L Lipase (23-300) U/L Ur Collection Type Urine Color (YELLOW) Urine Appearance (CLEAR) Urine pH (5-6) Ur Specific [place] (1.005-1.025) Urine Protein (Negative) Urine Ketones (NEGATIVE) Urine Blood (0-5) Tomas/ul Urine Nitrite (NEGATIVE) Urine Bilirubin (NEGATIVE) Urine Urobilinogen (0-1) mg/dL Ur Leukocyte Esterase (NEGATIVE) Urine Microscopic RBC (0-2) /HPF Urine Culture Reflexed (NO) Urine Glucose (NEGATIVE) mg/dL Urine Opiates Level (NEGATIVE) Ur Methadone (NEGATIVE) Urine Barbiturates (NEGATIVE) Ur Phencyclidine (PCP) (NEGATIVE) Urine Amphetamine (NEGATIVE) U Benzodiazepine Level (NEGATIVE) Urine Cocaine (NEGATIVE) Urine Marijuana (THC) (NEGATIVE) Specimen Received - Progress Progress Note: 03/12/18 02:40 pt states he is slowly improving. re examination reveals a soft abd with minimal tenderness. no rebound or guarding 03/12/18 04:41 RE EXAMINATION SHOWS PT FEELING BETTER SINCE ADMISSION. ABD EXAM NO REBOUND OR GUARDING SOFT. 03/12/18 04:[address] ESPINO. REVIEWED PT HX, CONDITION, LAB RESULTS WITH DR. ESPINO. SHE ACCEPTS HIM FOR ADMISSION INTO ICU. NO NEED FOR DKA PROTOCOL, NO NEED FOR REPEAT ANTIBX AT THIS TIME. Discussed with : Stacie Will see patient in: hospital (full admit) Counseled pt/family regarding: lab results, diagnosis - Departure Time of Disposition: 04:54 Departure Disposition: In-patient Admission Clinical Impression: DKA (diabetic ketoacidoses) Condition: Stable Critical Care Time: Yes Critical Care Time(excluding separately billable procedures): 30-74 minutes Referrals: VALENTINA ESPINO [Primary Care Provider] -
[2018-03-12 00:37] LABS: ALBUMIN 4.7 g/dL (3.5-5.0); ALKALINE PHOSPHATASE 115 U/L (38-126); AMYLASE 109 U/L (30-110); ANION GAP 25.3 MEQ/L (5-15); BLOOD UREA NITROGEN 25 mg/dL (9-20); CHLORIDE 95 mmol/L (98-107); Calcium 9.5 mg/dL (8.4-10.2); Carbon Dioxide 19 mmol/L (22-30); Creatinine 1 0.93 mg/dL (0.66-1.25); Potassium 4.8 mmol/L (3.5-5.1); SGOT/AST 36 U/L (17-59); SGPT/ALT 30 U/L (0-50); SODIUM 135 mmol/L (137-145); Total Protein 7.8 g/dL (6.3-8.2)
[2018-03-12] MEDS ORDERED: NovoLIN R IV ONE (00:44)
[2018-03-12 00:45] LABS: Glucose 512 mg/dL (74-106); LIPASE < 10 U/L (23-300)
[2018-03-12] MEDS ORDERED: Sodium Chloride 0.9% 1000 ML 1,000 ML IV STA (00:51)
[2018-03-12] MEDS ORDERED: Phenergan 25 MG INJ IV ONE (00:54)
[2018-03-12] MEDS ORDERED: Zofran 4 MG/2 ML VIAL ONE (00:58)
[2018-03-12] MEDS ORDERED: NovoLIN R ONE (00:59)
[2018-03-12] MEDS ORDERED: Sodium Chloride 0.9% 1000 ML 1,000 ML ONE ×3 (01:00→05:27)
[2018-03-12] MEDS ORDERED: DILAUDID 2 MG INJECTION ONE (01:00)
[2018-03-12] MEDS ORDERED: Phenergan 25 MG INJ ONE ×2 (01:03→05:27)
[2018-03-12 02:17] LABS: Lactic Acid 4.1 (0.4-2.0)
[2018-03-12] MEDS ORDERED: Merrem 1 GM 1 G in Sodium Chloride 100ML MINI-BAG PLUS 100 ML IV ONE (02:37)
[2018-03-12] MEDS ORDERED: Sodium Chloride 0.9% 100 ML IVPB 100 ML IV ONE (02:47)
[2018-03-12] MEDS ORDERED: Merrem 1 GM IV ONE (02:47)
[2018-03-12 03:16] LABS: Amphetamine,Urine NEGATIVE (NEGATIVE); Barbiturate,Urine NEGATIVE (NEGATIVE); Benzodiazepine,Urine NEGATIVE (NEGATIVE); Cocaine,Urine NEGATIVE (NEGATIVE); Methadone,Urine NEGATIVE (NEGATIVE); Opiate,Urine NEGATIVE (NEGATIVE); PCP,Urine NEGATIVE (NEGATIVE); THC,Urine POSITIVE (NEGATIVE)
[2018-03-12 03:26] LABS: Appearance CLEAR (CLEAR); Leukocyte Esterase NEGATIVE (NEGATIVE); Nitrite NEGATIVE (NEGATIVE); Protein,Urine Dip 30 (Negative); Specific Gravity 1.015 (1.005-1.025)
[2018-03-12 03:27] LABS: Bilirubin NEGATIVE (NEGATIVE); Blood 50 Ery/ul (0-5); Glucose 1000 mg/dL (NEGATIVE); Ketones NEGATIVE (NEGATIVE); Urobilinogen NORMAL mg/dL (0-1)
[2018-03-12] MEDS ORDERED: TRANDATE 20 MG/5 ML SYRINGE IV ONE (06:57)
[2018-03-12] MEDS ORDERED: PROTONIX 40 MG IV IV ONE (06:58)
[2018-03-12] MEDS: NovoLOG Insulin SQ PRN ×5 (07:27→18:05)
[2018-03-12] MEDS: Sodium Chloride 0.9% 1000 ML 1,000 ML IV SCH ×3 (07:32→23:51)
[2018-03-12] MEDS: Phenergan 25 MG INJ IV PRN ×3 (08:18→20:28)
[2018-03-12] MEDS ORDERED: TRANDATE 100MG/20 ML MDV IV ONE (08:29)
--- NOTE | 2018-03-12 08:52 | PCM.HP ---
History of Present Illness - Chief Complaint Chief Complaint: Hyperglycemia/Vomiting History of Present Illness: is a 32 year old male with diabetes mellitus who came to ER last night c/o 2d of abd pain and vomiting. He is a very poor historian secondary to his severe nausea and vomiting. He c/o 5/10 periumbilical pain. Has been drinking fluids but vomiting; no solid foods x 2d. His BS have been up to 500 in the ER. He states he has been taking his meds until yesterday. Overnight his BP was in the 160s systolic and his HR was in the 120s; both are improved after 10mg IV labetalol. He is currently NPO but he has a bottle of water that he sips and spits from that he filled up for himself. - Review of Systems Abdominal/Gastrointestinal: Abdominal Pain, Nausea, Vomiting All Other Systems: Unable due to condition Medications & Allergies Home Medications: Home Medication List Insulin Glargine [Lantus Insulin] 24 unit SQ 1700 #10 ml 01/05/18 [Rx Confirmed 03/11/18] Insulin Lispro [Humalog] 6 unit SQ TIDWM #10 ml 01/05/18 [Rx Confirmed 03/11/18] Lisinopril 10 mg [Zestril 10 MG] 10 mg PO BID #60 tablet 01/05/18 [Rx Confirmed 03/11/18] Allergies/Adverse Reactions: Allergies Allergy/AdvReac Type Severity Reaction Status Date / Time No Known Drug Allergies Allergy Verified 03/11/18 23:18 - Past Medical History Past Medical History: Yes Neurological History: No Pertinent History ENT History: No Pertinent History Cardiac History: No Pertinent History Respiratory History: No Pertinent History Endocrine Medical History: Diabetes Type I Musculoskelatal History: No Pertinent History GI Medical History: No Pertinent History History: No Pertinent History Pyscho-Social History: Anxiety, Depression Male Reproductive Disorders: No Pertinent History Comment: DKA - Past Surgical History Past Surgical History: No Neuro Surgical History: No Pertinent History Cardiac History: No Pertinent History Respiratory Surgery: No Pertinent History GI Surgical History: No Pertinent History Genitourinary Surgical Hx: No Pertinent History Musculskeletal Surgical Hx: No Pertinent History Male Surgical History: No Pertinent History Other Surgical History: PT SHAKES HEAD "NO" WHEN ASKED IF HE HAS EVER HAD SURGERY - Social History Smoking Status: Current some day smoker Exposure to second hand smoke: Yes Alcohol: None Drug Use: none - Physical Exam Vital Signs: Vital Signs - 24 hr Temp Pulse Resp BP Pulse Ox 03/12/18 08:00 133 H 25 H 03/12/18 07:55 98.3 F 114 H 18 118/79 100 03/12/18 06:10 98.9 F 134 H 22 167/78 94 L 03/12/18 05:08 98 03/12/18 04:00 112 H 18 122/69 95 03/12/18 03:00 74 16 118/67 98 03/12/18 02:11 98 F 110 H 127/75 98 03/11/18 23:10 98 F 104 H 22 159/96 98 General Appearance: moderate distress, alert Neurologic Exam: cooperative, other (actively vomiting) Eye Exam: eyes nml inspection Neck Exam: normal inspection, non-tender, No lymphadenopathy Respiratory Exam: normal breath sounds, No crackles/rales, No rhonchi, No wheezing Cardiovascular Exam: regular rate/rhythm, normal heart sounds, No murmur Gastrointestinal/Abdomen Exam: soft, tenderness (throughout, moreso periumbilical, epigastrum, RLQ), No normal bowel sounds (hypoactive bowel sounds ), No distention, No mass, No guarding, No rebound Extremity Exam: No pedal edema, No swelling Skin Exam: normal color, warm, dry, No rash Results - Labs Lab/Micro Results: Accuchecks Accucheck Value: 439 Accucheck Value: 272 Lab Results-Last 24 Hours 03/11/18 03/11/18 03/11/18 Range/Units 23:53 23:55 23:55 WBC 16.4 H (4.0-10.5) K/mm3 RBC 4.98 (4.1-5.6) M/mm3 Hgb 14.8 (12.5-18.0) gm/dl Hct 42.4 (42-50) % MCV 85.1 (78-100) fl MCH 29.7 (26-32) pg MCHC 34.9 (32-36) g/dl RDW 12.3 (11.5-14.0) % Plt Count 400 (150-450) K/mm3 MPV 9.0 (6-9.5) fl Gran % 91.3 H (36.0-66.0) % Eos # (Auto) 0 (0-0.5) Absolute Lymphs (auto) 0.70 L (1.0-4.6) Absolute Monos (auto) 0.69 (0.0-1.3) Lymphocytes % 4.3 L (24.0-44.0) % Monocytes % 4.2 (0.0-12.0) % Eosinophils % 0.0 (0.00-5.0) % Basophils % 0.2 (0.0-0.4) % Absolute Granulocytes 14.96 H (1.4-6.9) Basophils # 0.03 (0-0.4) Sodium 135 L (137-145) mmol/L Potassium 4.8 (3.5-5.1) mmol/L Chloride 95 L (98-107) mmol/L Carbon Dioxide 19 L (22-30) mmol/L Anion Gap 25.3 H (5-15) MEQ/L BUN 25 H (9-20) mg/dL Creatinine 0.93 (0.66-1.25) mg/dL Estimated GFR > 60.0 ML/MIN Glucose 512 H* (74-106) mg/dL Lactic Acid 3.3 H (0.4-2.0) Calcium 9.5 (8.4-10.2) mg/dL Total Bilirubin 1.50 H (0.2-1.3) mg/dL AST 36 (17-59) U/L ALT 30 (0-50) U/L Alkaline Phosphatase 115 (38-126) U/L Serum Total Protein 7.8 (6.3-8.2) g/dL Albumin 4.7 (3.5-5.0) g/dL Amylase 109 (30-110) U/L Lipase < 10 L (23-300) U/L Ur Collection Type Urine Color (YELLOW) Urine Appearance (CLEAR) Urine pH (5-6) Ur Specific [place] (1.005-1.025) Urine Protein (Negative) Urine Ketones (NEGATIVE) Urine Blood (0-5) Tomas/ul Urine Nitrite (NEGATIVE) Urine Bilirubin (NEGATIVE) Urine Urobilinogen (0-1) mg/dL Ur Leukocyte Esterase (NEGATIVE) Urine Microscopic RBC (0-2) /HPF Urine Culture Reflexed (NO) Urine Glucose (NEGATIVE) mg/dL Urine Opiates Level (NEGATIVE) Ur Methadone (NEGATIVE) Urine Barbiturates (NEGATIVE) Ur Phencyclidine (PCP) (NEGATIVE) Urine Amphetamine (NEGATIVE) U Benzodiazepine Level (NEGATIVE) Urine Cocaine (NEGATIVE) Urine Marijuana (THC) (NEGATIVE) Specimen Received 03/12/18 03/12/18 03/12/18 Range/Units 02:10 02:47 02:47 WBC (4.0-10.5) K/mm3 RBC (4.1-5.6) M/mm3 Hgb (12.5-18.0) gm/dl Hct (42-50) % MCV (78-100) fl MCH (26-32) pg MCHC (32-36) g/dl RDW (11.5-14.0) % Plt Count (150-450) K/mm3 MPV (6-9.5) fl Gran % (36.0-66.0) % Eos # (Auto) (0-0.5) Absolute Lymphs (auto) (1.0-4.6) Absolute Monos (auto) (0.0-1.3) Lymphocytes % (24.0-44.0) % Monocytes % (0.0-12.0) % Eosinophils % (0.00-5.0) % Basophils % (0.0-0.4) % Absolute Granulocytes (1.4-6.9) Basophils # (0-0.4) Sodium (137-145) mmol/L Potassium (3.5-5.1) mmol/L Chloride (98-107) mmol/L Carbon Dioxide (22-30) mmol/L Anion Gap (5-15) MEQ/L BUN (9-20) mg/dL Creatinine (0.66-1.25) mg/dL Estimated GFR ML/MIN Glucose (74-106) mg/dL Lactic Acid 4.1 H (0.4-2.0) Calcium (8.4-10.2) mg/dL Total Bilirubin (0.2-1.3) mg/dL AST (17-59) U/L ALT (0-50) U/L Alkaline Phosphatase (38-126) U/L Serum Total Protein (6.3-8.2) g/dL Albumin (3.5-5.0) g/dL Amylase (30-110) U/L Lipase (23-300) U/L Ur Collection Type VOID Urine Color YELLOW (YELLOW) Urine Appearance CLEAR (CLEAR) Urine pH 5.0 (5-6) Ur Specific [place] 1.015 (1.005-1.025) Urine Protein 30 (Negative) Urine Ketones NEGATIVE (NEGATIVE) Urine Blood 50 (0-5) Tomas/ul Urine Nitrite NEGATIVE (NEGATIVE) Urine Bilirubin NEGATIVE (NEGATIVE) Urine Urobilinogen NORMAL (0-1) mg/dL Ur Leukocyte Esterase NEGATIVE (NEGATIVE) Urine Microscopic RBC 2-5 (0-2) /HPF Urine Culture Reflexed YES (NO) Urine Glucose 1000 (NEGATIVE) mg/dL Urine Opiates Level NEGATIVE (NEGATIVE) Ur Methadone NEGATIVE (NEGATIVE) Urine Barbiturates NEGATIVE (NEGATIVE) Ur Phencyclidine (PCP) NEGATIVE (NEGATIVE) Urine Amphetamine NEGATIVE (NEGATIVE) U Benzodiazepine Level NEGATIVE (NEGATIVE) Urine Cocaine NEGATIVE (NEGATIVE) Urine Marijuana (THC) POSITIVE (NEGATIVE) Specimen Received 03/12/18 0250 03/12/18 Range/Units 04:40 WBC (4.0-10.5) K/mm3 RBC (4.1-5.6) M/mm3 Hgb (12.5-18.0) gm/dl Hct (42-50) % MCV (78-100) fl MCH (26-32) pg MCHC (32-36) g/dl RDW (11.5-14.0) % Plt Count (150-450) K/mm3 MPV (6-9.5) fl Gran % (36.0-66.0) % Eos # (Auto) (0-0.5) Absolute Lymphs (auto) (1.0-4.6) Absolute Monos (auto) (0.0-1.3) Lymphocytes % (24.0-44.0) % Monocytes % (0.0-12.0) % Eosinophils % (0.00-5.0) % Basophils % (0.0-0.4) % Absolute Granulocytes (1.4-6.9) Basophils # (0-0.4) Sodium (137-145) mmol/L Potassium (3.5-5.1) mmol/L Chloride (98-107) mmol/L Carbon Dioxide (22-30) mmol/L Anion Gap (5-15) MEQ/L BUN (9-20) mg/dL Creatinine (0.66-1.25) mg/dL Estimated GFR ML/MIN Glucose (74-106) mg/dL Lactic Acid 1.8 (0.4-2.0) Calcium (8.4-10.2) mg/dL Total Bilirubin (0.2-1.3) mg/dL AST (17-59) U/L ALT (0-50) U/L Alkaline Phosphatase (38-126) U/L Serum Total Protein (6.3-8.2) g/dL Albumin (3.5-5.0) g/dL Amylase (30-110) U/L Lipase (23-300) U/L Ur Collection Type Urine Color (YELLOW) Urine Appearance (CLEAR) Urine pH (5-6) Ur Specific [place] (1.005-1.025) Urine Protein (Negative) Urine Ketones (NEGATIVE) Urine Blood (0-5) Tomas/ul Urine Nitrite (NEGATIVE) Urine Bilirubin (NEGATIVE) Urine Urobilinogen (0-1) mg/dL Ur Leukocyte Esterase (NEGATIVE) Urine Microscopic RBC (0-2) /HPF Urine Culture Reflexed (NO) Urine Glucose (NEGATIVE) mg/dL Urine Opiates Level (NEGATIVE) Ur Methadone (NEGATIVE) Urine Barbiturates (NEGATIVE) Ur Phencyclidine (PCP) (NEGATIVE) Urine Amphetamine (NEGATIVE) U Benzodiazepine Level (NEGATIVE) Urine Cocaine (NEGATIVE) Urine Marijuana (THC) (NEGATIVE) Specimen Received Microbiology 03/12/18 02:47 Urine Culture - Preliminary Urine, Void NO GROWTH TO DATE Accuchecks Accucheck Value: 439 Accucheck Value: 272 - Radiology Impressions Radiology Exams & Impressions: Radiology Procedures Category Date Time Status ABDOMEN AND PELVIS W/0 CONTRAS [CT] Stat Exams 03/12/18 08:45 Ordered - Other Procedures and Tests Respiratory Therapy 03/12/18 06:26 Smoking Cessation Education ONCE Assessment/Plan (1) Abdominal pain Current Visit: Yes Status: Acute Qualifiers: Abdominal location: unspecified location Qualified Code(s): R10.9 - Unspecified abdominal pain Assessment & Plan: Persistent; tender on exam. Will do CT abd/pelvis without po contrast as he would not be able to tolerate that. No IV contrast. Could be related to the elevated BS. Pt was wondering about poisoning as he did a "bug bomb" at home just before he started feeling ill; however he is having dry mouth and no sx of insecticide poisoning. Code(s): R10.9 - UNSPECIFIED ABDOMINAL PAIN (2) Vomiting Current Visit: No Status: Acute Onset Date: ~01/03/18 Qualifiers: Vomiting Intractability: intractable Nausea presence: with nausea Assessment & Plan: vomitus this morning is quite dark; sent for hemoccult. Will get results of last EGD, he thinks done about 1 yr ago.rechecking CBC 12h after the last done in ER. Code(s): R11.10 - VOMITING, UNSPECIFIED (3) Hypertension Current Visit: No Status: Acute Qualifiers: Hypertension type: essential hypertension Qualified Code(s): I10 - Essential (primary) hypertension Assessment & Plan: better on IV labetalol. Manage with IV meds for now. Code(s): I10 - ESSENTIAL (PRIMARY) HYPERTENSION (4) Diabetes mellitus type I Current Visit: No Status: Chronic Qualifiers: Diabetes mellitus complication status: without complication Qualified Code( s): E10.9 - Type 1 diabetes mellitus without complications Assessment & Plan: poorly controlled. check a1c with next blood draw. (5) Polysubstance abuse Current Visit: No Status: Chronic Assessment & Plan: UDS only positive for THC and he denies recent drug use, specifically recent methamphetamine use. He has freely admitted to [facility] in the past so I don't know if this is an issue this admission. Code(s): F19.10 - OTHER PSYCHOACTIVE SUBSTANCE ABUSE, UNCOMPLICATED
--- NOTE | 2018-03-12 09:52 | XRAY ---
Indication: Abdominal pain and vomiting. Multiple contiguous axial images obtained through the abdomen and pelvis without contrast as ordered. Comparison: May 27, 2017. Lung bases remain clear. Heart is not enlarged. There is now small hiatal hernia. Noncontrasted stomach and bowel loops remain nonobstructed. New appendicolith without evidence for acute appendicitis. No free fluid/air. Remaining liver, gallbladder, pancreas, spleen, adrenal glands, kidneys, ureters, bladder, and aorta appear unremarkable for noncontrast exam. Osseous structures intact again with bilateral L5 spondylolysis without spondylolisthesis. Stable right lower quadrant abdominal wall induration. Impression: 1. New small hiatal hernia. 2. New appendicolith without evidence for appendicitis. 3. Stable L5 spondylolysis without spondylolisthesis. 4. No acute intra-abdominal/pelvic abnormalities on this noncontrast exam. CT DI 11.75
[2018-03-12 12:12] LABS: BASOPHIL % 0.1 % (0.0-0.4); Basophil (Absolute #) 0.03 (0-0.4); Eosinophil (Absolute #) 0 (0-0.5); Granulocyte Absolute (ANC) 17.18 (1.4-6.9); Granulocytes % 85.5 % (36.0-66.0); Hematocrit 37.9 % (42-50); Lymphocyte (Absolute #) 0.81 (1.0-4.6); Mean Cell Volume 87.3 fl (78-100); Mean Corpuscular Hgb Concent. 34.3 g/dl (32-36); Mean Platelet Volume 8.7 fl (6-9.5); Monocyte (Absolute #) 2.09 (0.0-1.3); Monocytes % 10.4 % (0.0-12.0); Platelet Count 395 K/mm3 (150-450); Red Blood Count 4.34 M/mm3 (4.1-5.6); Red Cell Distribution Width 12.6 % (11.5-14.0); White Blood Count 20.1 K/mm3 (4.0-10.5)
[2018-03-12] MEDS: Zofran 4 MG/2 ML VIAL IV PRN ×3 (12:28→23:01)
[2018-03-12 12:43] LABS: ALBUMIN 4.2 g/dL (3.5-5.0); ALKALINE PHOSPHATASE 106 U/L (38-126); ANION GAP 21.1 MEQ/L (5-15); BLOOD UREA NITROGEN 22 mg/dL (9-20); CHLORIDE 106 mmol/L (98-107); Calcium 8.8 mg/dL (8.4-10.2); Carbon Dioxide 21 mmol/L (22-30); Creatinine 1 1.06 mg/dL (0.66-1.25); Glucose 250 mg/dL (74-106); Potassium 4.4 mmol/L (3.5-5.1); SGOT/AST 31 U/L (17-59); SGPT/ALT 27 U/L (0-50); SODIUM 143 mmol/L (137-145)
[2018-03-12 14:47] LABS: Slide Review 1 YES
[2018-03-12] MEDS: Lantus Insulin SQ SCH (18:06)
[2018-03-13] MEDS ORDERED: Glutose 15 GM ORAL GEL PO ONE (01:24)
[2018-03-13] MEDS ORDERED: D50W 50 ml Abboject IV ONE ×2 (01:25→01:28)
[2018-03-13] MEDS: Dextrose 5% -0.45 NaCl 1000 ML 1,000 ML IV SCH ×2 (01:52→13:10)
[2018-03-13 06:31] LABS: ALBUMIN 3.4 g/dL (3.5-5.0); ALKALINE PHOSPHATASE 87 U/L (38-126); ANION GAP 11.5 MEQ/L (5-15); BLOOD UREA NITROGEN 15 mg/dL (9-20); CHLORIDE 106 mmol/L (98-107); Calcium 8.6 mg/dL (8.4-10.2); Carbon Dioxide 27 mmol/L (22-30); Glucose 70 mg/dL (74-106); Potassium 3.5 mmol/L (3.5-5.1); SGOT/AST 20 U/L (17-59); SGPT/ALT 20 U/L (0-50); SODIUM 141 mmol/L (137-145)
[2018-03-13 06:33] LABS: Hematocrit 33.9 % (42-50); Hemoglobin 11.8 gm/dl (12.5-18.0); Mean Cell Volume 88.7 fl (78-100); Mean Corpuscular Hgb Concent. 34.8 g/dl (32-36); Mean Platelet Volume 8.4 fl (6-9.5); Platelet Count 328 K/mm3 (150-450); Red Blood Count 3.82 M/mm3 (4.1-5.6); Red Cell Distribution Width 12.7 % (11.5-14.0); White Blood Count 14.3 K/mm3 (4.0-10.5)
[2018-03-13 06:37] LABS: Mean Corpuscular Hemoglobin 30.8 pg (26-32)
--- NOTE | 2018-03-13 06:45 | PCM.NOTE ---
Date and Time: 03/13/18 0640 Subjective Assessment: Pt had elevated BS yesterday and was given his regular dose of lantus in the evening (24 units). He then had hypoglycemia down to 48 (was given dextrose); recheck was 100 so D5 1/2 NS was started at 80cc/hr. Pt did tolerate a popsicle. Last antiemetic was at 11 pm and he denies nausea currently. Denying abd pain. Feeling better. He does complain of throat pain today. - Review of Systems Constitutional: No Fever Ears, Nose, & Throat: Throat Pain Abdominal/Gastrointestinal: No Abdominal Pain, No Vomiting Objective Exam General Appearance: no apparent distress, alert (although eyes are closed through most of exam) Neurologic Exam: cooperative, other (evidence of chewing tobacco in cup by the bed) Skin Exam: normal color, warm, dry, No rash Ears, Nose, Throat Exam: pharynx normal, moist mucous membranes, other (tongue black coated) Neck Exam: normal inspection Respiratory Exam: normal breath sounds, lungs clear, No crackles/rales, No rhonchi, No wheezing Cardiovascular Exam: regular rate/rhythm, normal heart sounds, No murmur Gastrointestinal/Abdomen Exam: soft, tenderness (periumbilical/RLQ, mild), No normal bowel sounds (hypoactive), No distention, No mass, No guarding, No rebound OBJECTIVE DATA Vital Signs: Vital Signs - 24 hr Temp Pulse Resp BP Pulse Ox 03/13/18 04:00 98.4 F 103 H 20 119/68 100 03/12/18 23:57 98.7 F 104 H 18 126/79 100 03/12/18 23:54 18 03/12/18 20:00 98.5 F 109 H 16 138/95 100 03/12/18 19:56 18 03/12/18 16:00 98.6 F 116 H 17 105/72 99 03/12/18 12:00 98.3 F 116 H 17 142/90 96 03/12/18 08:00 133 H 25 H 03/12/18 07:55 98.3 F 114 H 18 118/79 100 Pain Assessment - Last Documented Pain Intensity 0 Pain Scale Used 0-10 Pain Scale,FLACC Intake and Output: Intake & Output 03/10/18 03/11/18 03/12/18 03/13/18 11:59 11:59 11:59 11:59 Intake Total 1482 Output Total 900 1125 Balance -900 357 Weight 73.8 kg 73 kg Lab Results: Accuchecks Date 03/13/18 Date 03/13/18 Date 03/13/18 Date 03/12/18 Date 03/12/18 Time 06:27 Time 04:36 Time 01:36 Time 21:45 Time 10:00 Accucheck Value: 78 Accucheck Value: 80 Accucheck Value: 48 Accucheck Value: 123 Accucheck Value: 313 Accucheck Value: 439 Lab Results-Last 24 Hours 03/12/18 03/12/18 03/12/18 Range/Units 02:47 04:40 08:00 WBC (4.0-10.5) K/mm3 RBC (4.1-5.6) M/mm3 Hgb (12.5-18.0) gm/dl Hct (42-50) % MCV (78-100) fl MCH (26-32) pg MCHC (32-36) g/dl RDW (11.5-14.0) % Plt Count (150-450) K/mm3 MPV (6-9.5) fl Gran % (36.0-66.0) % Eos # (Auto) (0-0.5) Absolute Lymphs (auto) (1.0-4.6) Absolute Monos (auto) (0.0-1.3) Lymphocytes % (24.0-44.0) % Monocytes % (0.0-12.0) % Eosinophils % (0.00-5.0) % Basophils % (0.0-0.4) % Absolute Granulocytes (1.4-6.9) Basophils # (0-0.4) Sodium (137-145) mmol/L Potassium (3.5-5.1) mmol/L Chloride (98-107) mmol/L Carbon Dioxide (22-30) mmol/L Anion Gap (5-15) MEQ/L BUN (9-20) mg/dL Creatinine (0.66-1.25) mg/dL Estimated GFR ML/MIN Glucose (74-106) mg/dL Hemoglobin A1c (4.5-6.0) % Lactic Acid 1.8 (0.4-2.0) Calcium (8.4-10.2) mg/dL Total Bilirubin (0.2-1.3) mg/dL AST (17-59) U/L ALT (0-50) U/L Alkaline Phosphatase (38-126) U/L Serum Total Protein (6.3-8.2) g/dL Albumin (3.5-5.0) g/dL Ur Collection Type VOID Urine Color YELLOW (YELLOW) Urine Appearance CLEAR (CLEAR) Urine pH 5.0 (5-6) Ur Specific [place] 1.015 (1.005-1.025) Urine Protein 30 (Negative) Urine Ketones NEGATIVE (NEGATIVE) Urine Blood 50 (0-5) Tomas/ul Urine Nitrite NEGATIVE (NEGATIVE) Urine Bilirubin NEGATIVE (NEGATIVE) Urine Urobilinogen NORMAL (0-1) mg/dL Ur Leukocyte Esterase NEGATIVE (NEGATIVE) Urine Microscopic RBC 2-5 (0-2) /HPF Urine Culture Reflexed YES (NO) Urine Glucose 1000 (NEGATIVE) mg/dL Emesis for Blood NEGATIVE (Negative) Slides for Path Review Specimen Received 03/12/18 0250 03/12/18 03/12/18 03/12/18 Range/Units 11:57 11:57 11:57 WBC 20.1 H (4.0-10.5) K/mm3 RBC 4.34 (4.1-5.6) M/mm3 Hgb 13.0 (12.5-18.0) gm/dl Hct 37.9 L (42-50) % MCV 87.3 (78-100) fl MCH 30.0 (26-32) pg MCHC 34.3 (32-36) g/dl RDW 12.6 (11.5-14.0) % Plt Count 395 (150-450) K/mm3 MPV 8.7 (6-9.5) fl Gran % 85.5 H (36.0-66.0) % Eos # (Auto) 0 (0-0.5) Absolute Lymphs (auto) 0.81 L (1.0-4.6) Absolute Monos (auto) 2.09 H (0.0-1.3) Lymphocytes % 4.0 L (24.0-44.0) % Monocytes % 10.4 (0.0-12.0) % Eosinophils % 0.0 (0.00-5.0) % Basophils % 0.1 (0.0-0.4) % Absolute Granulocytes 17.18 H (1.4-6.9) Basophils # 0.03 (0-0.4) Sodium 143 (137-145) mmol/L Potassium 4.4 (3.5-5.1) mmol/L Chloride 106 (98-107) mmol/L Carbon Dioxide 21 L (22-30) mmol/L Anion Gap 21.1 H (5-15) MEQ/L BUN 22 H (9-20) mg/dL Creatinine 1.06 (0.66-1.25) mg/dL Estimated GFR > 60.0 ML/MIN Glucose 250 H (74-106) mg/dL Hemoglobin A1c 9.51 H (4.5-6.0) % Lactic Acid (0.4-2.0) Calcium 8.8 (8.4-10.2) mg/dL Total Bilirubin 0.80 (0.2-1.3) mg/dL AST 31 (17-59) U/L ALT 27 (0-50) U/L Alkaline Phosphatase 106 (38-126) U/L Serum Total Protein 7.0 (6.3-8.2) g/dL Albumin 4.2 (3.5-5.0) g/dL Ur Collection Type Urine Color (YELLOW) Urine Appearance (CLEAR) Urine pH (5-6) Ur Specific [place] (1.005-1.025) Urine Protein (Negative) Urine Ketones (NEGATIVE) Urine Blood (0-5) Tomas/ul Urine Nitrite (NEGATIVE) Urine Bilirubin (NEGATIVE) Urine Urobilinogen (0-1) mg/dL Ur Leukocyte Esterase (NEGATIVE) Urine Microscopic RBC (0-2) /HPF Urine Culture Reflexed (NO) Urine Glucose (NEGATIVE) mg/dL Emesis for Blood (Negative) Slides for Path Review YES Specimen Received 03/13/18 Range/Units 05:42 WBC 14.3 H (4.0-10.5) K/mm3 RBC 3.82 L (4.1-5.6) M/mm3 Hgb 11.8 L (12.5-18.0) gm/dl Hct 33.9 L (42-50) % MCV 88.7 (78-100) fl MCH 30.8 (26-32) pg MCHC 34.8 (32-36) g/dl RDW 12.7 (11.5-14.0) % Plt Count 328 (150-450) K/mm3 MPV 8.4 (6-9.5) fl Gran % (36.0-66.0) % Eos # (Auto) (0-0.5) Absolute Lymphs (auto) (1.0-4.6) Absolute Monos (auto) (0.0-1.3) Lymphocytes % (24.0-44.0) % Monocytes % (0.0-12.0) % Eosinophils % (0.00-5.0) % Basophils % (0.0-0.4) % Absolute Granulocytes (1.4-6.9) Basophils # (0-0.4) Sodium (137-145) mmol/L Potassium (3.5-5.1) mmol/L Chloride (98-107) mmol/L Carbon Dioxide (22-30) mmol/L Anion Gap (5-15) MEQ/L BUN (9-20) mg/dL Creatinine (0.66-1.25) mg/dL Estimated GFR ML/MIN Glucose (74-106) mg/dL Hemoglobin A1c (4.5-6.0) % Lactic Acid (0.4-2.0) Calcium (8.4-10.2) mg/dL Total Bilirubin (0.2-1.3) mg/dL AST (17-59) U/L ALT (0-50) U/L Alkaline Phosphatase (38-126) U/L Serum Total Protein (6.3-8.2) g/dL Albumin (3.5-5.0) g/dL Ur Collection Type Urine Color (YELLOW) Urine Appearance (CLEAR) Urine pH (5-6) Ur Specific [place] (1.005-1.025) Urine Protein (Negative) Urine Ketones (NEGATIVE) Urine Blood (0-5) Tomas/ul Urine Nitrite (NEGATIVE) Urine Bilirubin (NEGATIVE) Urine Urobilinogen (0-1) mg/dL Ur Leukocyte Esterase (NEGATIVE) Urine Microscopic RBC (0-2) /HPF Urine Culture Reflexed (NO) Urine Glucose (NEGATIVE) mg/dL Emesis for Blood (Negative) Slides for Path Review Specimen Received Radiology Exams: Radiology Procedures Category Date Time Status ABDOMEN AND PELVIS W/0 CONTRAS [CT] Stat Exams 03/12/18 08:45 Completed Multi-Disciplinary Progress Notes: Multi-Disciplinary Progress Notes 03/12/18 14:30 (created 03/12/18 17:08) Case Management Note by Nona Carranza AFTER CHECKING WITH PATIENT'S PHARMACY ([facility]) , PATIENT LAST FILLED SCRIPTS 11/19/17 (AT SOME POINT AFTER THAT PATIENT DID NOT CRATE BUILDER SCRIPTS AND THEY WERE RETURNED TO STOCK, PRICES OF THOSE MEDS WERE $200-300). NO INSURANCE WAS ON FILE. DR. ESPINO NOTIFIED OF THAT INFORMATION. PATIENT CURRENTLY SIGNED UP WITH [facility], PATIENT WAS GIVEN INFORMATION FOR WHAT HE NEEDED TO DO TO CONTINUE COVERAGE PAST THE INITIAL GIVEN TIMEFRAME. THIS INFORMATION WAS PRINTED OFF, HIGHLIGHTED AND GIVEN TO HIM AGAIN. THE INFORMATION WAS DISCUSSED WITH HIM AND HE VERIFIED UNDERSTANDING. THIS SHOULD HELP PROVIDE PRESCRIPTION COVERAGE. WILL HAVE [facility] TO BEDS HELP DESK ASSISTANT SEE PATIENT WELL. Initialized on 03/12/18 17:08 - END OF NOTE Assessment/Plan (1) DKA (diabetic ketoacidoses) Current Visit: Yes Status: Acute Onset Date: ~03/12/18 Qualifiers: Diabetes mellitus type: type 1 Diabetes mellitus complication detail: without coma Qualified Code(s): E10.10 - Type 1 diabetes mellitus with ketoacidosis without coma Assessment & Plan: Morning labs pending. Clinically he is much improved. Code(s): E13.10 - OTH DIABETES MELLITUS WITH KETOACIDOSIS WITHOUT COMA (2) Abdominal pain Current Visit: Yes Status: Acute Onset Date: ~03/12/18 Qualifiers: Abdominal location: unspecified location Qualified Code(s): R10.9 - Unspecified abdominal pain Assessment & Plan: Likely just related to DKA. Much improved. There is a little tenderness on exam but much better than yesterday. Code(s): R10.9 - UNSPECIFIED ABDOMINAL PAIN (3) Vomiting Current Visit: No Status: Resolved Onset Date: ~03/12/18 Qualifiers: Vomiting Intractability: intractable Nausea presence: with nausea Assessment & Plan: will advance diet very slowly. Code(s): R11.10 - VOMITING, UNSPECIFIED (4) Hypertension Current Visit: Yes Status: Acute Onset Date: ~03/12/18 Qualifiers: Hypertension type: essential hypertension Qualified Code(s): I10 - Essential (primary) hypertension Code(s): I10 - ESSENTIAL (PRIMARY) HYPERTENSION (5) Diabetes mellitus type I Current Visit: No Status: Chronic Qualifiers: Diabetes mellitus complication status: without complication Qualified Code( s): E10.9 - Type 1 diabetes mellitus without complications (6) Polysubstance abuse Current Visit: No Status: Chronic Code(s): F19.10 - OTHER PSYCHOACTIVE SUBSTANCE ABUSE, UNCOMPLICATED
[2018-03-13] MEDS ORDERED: GlucaGen 1 MG IM PRN (07:45)
[2018-03-13] MEDS ORDERED: Glutose 15 GM ORAL GEL PO PRN (07:45)
[2018-03-13] MEDS ORDERED: D50W 50 ml Abboject IV PRN (07:45)
[2018-03-13] MEDS: PROTONIX 40 MG IV IV SCH (08:07)
[2018-03-13] MEDS: Zofran 4 MG/2 ML VIAL IV PRN (16:32)
[2018-03-13] MEDS: NovoLOG Insulin SQ PRN ×2 (17:28→20:14)
[2018-03-13] MEDS: Lantus Insulin SQ SCH (18:21)
[2018-03-13] MEDS: Phenergan 25 MG INJ IV PRN (20:18)
[2018-03-14] MEDS: Dextrose 5% -0.45 NaCl 1000 ML 1,000 ML IV SCH (01:38)
[2018-03-14 08:59] LABS: BASOPHIL % 0.2 % (0.0-0.4); Basophil (Absolute #) 0.02 (0-0.4); Eosinophil % 3.8 % (0.00-5.0); Eosinophil (Absolute #) 0.34 (0-0.5); Granulocyte Absolute (ANC) 5.36 (1.4-6.9); Granulocytes % 60.6 % (36.0-66.0); Hematocrit 31.2 % (42-50); Hemoglobin 10.7 gm/dl (12.5-18.0); Lymphocyte (Absolute #) 2.07 (1.0-4.6); Lymphocytes % 23.4 % (24.0-44.0); Mean Cell Volume 87.2 fl (78-100); Mean Corpuscular Hgb Concent. 34.3 g/dl (32-36); Mean Platelet Volume 8.4 fl (6-9.5); Monocyte (Absolute #) 1.06 (0.0-1.3); Platelet Count 275 K/mm3 (150-450); Red Blood Count 3.58 M/mm3 (4.1-5.6); Red Cell Distribution Width 11.8 % (11.5-14.0); White Blood Count 8.9 K/mm3 (4.0-10.5)
[2018-03-14 09:00] LABS: Mean Corpuscular Hemoglobin 29.8 pg (26-32)
[2018-03-14 09:20] LABS: ALBUMIN 2.9 g/dL (3.5-5.0); ALKALINE PHOSPHATASE 82 U/L (38-126); ANION GAP 9.2 MEQ/L (5-15); BLOOD UREA NITROGEN 6 mg/dL (9-20); CHLORIDE 105 mmol/L (98-107); Carbon Dioxide 27 mmol/L (22-30); Creatinine 1 0.71 mg/dL (0.66-1.25); Glucose 164 mg/dL (74-106); Potassium 3.4 mmol/L (3.5-5.1); SGOT/AST 18 U/L (17-59); SGPT/ALT 18 U/L (0-50); SODIUM 138 mmol/L (137-145); Total Protein 5.5 g/dL (6.3-8.2)
[2018-03-14] MEDS: PROTONIX 40 MG IV IV SCH (10:44)
[2018-03-14] MEDS: NovoLOG Insulin SQ PRN (11:26)
[2018-03-14 12:16] VITALS: BP 154/92; PULSE 90; O2SAT 98
--- NOTE | 2018-03-14 13:47 | PCM.DS ---
Discharge Summary Date of Admission: 03/12/18 05:47 Admitting Physician: VALENTINA ESPINO Primary Care Provider: VALENTINA ESPINO Allergies Allergies No Known Drug Allergies Allergy (Verified 03/11/18 23:18) Hospital Summary - Hospital Course Hospital Course: Pt admitted through ER, dx with DKA there with BS > 500. He had abd pain and vomiting. CT abd/pelvis non acute. Started on protonix IV. Last EGD was Sep 2016 with gastritis. nausea and vomiting resolved. No abd pain this morning. He is tolerating po. Labs have normalized, aside from K+ of 3.4. Will send home on omeprazole 40mg/d (recommendation from last EGD was high dose PPI). He is noncompliant with diabetes meds; he has been set up with medicaid and needs to complete the paperwork on his own. I have let him know if he kept his insurance and was compliant with DM meds he may be able to avoid similar episodes in the future. - Vitals & Intake/Output Vital Signs: Vital Signs Temperature 97.8 F 03/14/18 12:00 Pulse Rate 90 03/14/18 12:00 Respiratory Rate 20 03/14/18 12:00 Blood Pressure 154/92 03/14/18 12:00 O2 Sat by Pulse Oximetry 98 03/14/18 12:00 Intake & Output: Intake & Output 03/12/18 03/13/18 03/14/18 03/15/18 11:59 11:59 11:59 11:59 Intake Total 1482 4482 Output Total 900 1525 2750 Balance -900 -43 1732 Weight 73.8 kg 73 kg 78.4 kg - Lab Result Diagrams: 03/14/18 08:13 03/14/18 09:00 Lab Results-Last 24 Hrs: Accuchecks Date 03/14/18 Date 03/14/18 Date 03/14/18 Date 03/14/18 Date 03/14/18 Date 03/14/18 Date 03/13/18 Date 03/13/18 Date 03/13/18 Date 03/13/18 Time 11:28 Time 07:53 Time 05:52 Time 04:15 Time 02:06 Time 00:00 Time 22:14 Time 20:00 Time 17:25 Time 15:16 Accucheck Value: 265 Accucheck Value: 143 Accucheck Value: 142 Accucheck Value: 169 Accucheck Value: 136 Accucheck Value: 158 Accucheck Value: 171 Accucheck Value: 203 Accucheck Value: 288 Accucheck Value: 194 Lab Results-Last 24 Hours 03/14/18 03/14/18 Range/Units 08:13 09:00 WBC 8.9 (4.0-10.5) K/mm3 RBC 3.58 L (4.1-5.6) M/mm3 Hgb 10.7 L (12.5-18.0) gm/dl Hct 31.2 L (42-50) % MCV 87.2 (78-100) fl MCH 29.8 (26-32) pg MCHC 34.3 (32-36) g/dl RDW 11.8 (11.5-14.0) % Plt Count 275 (150-450) K/mm3 MPV 8.4 (6-9.5) fl Gran % 60.6 (36.0-66.0) % Eos # (Auto) 0.34 (0-0.5) Absolute Lymphs (auto) 2.07 (1.0-4.6) Absolute Monos (auto) 1.06 (0.0-1.3) Lymphocytes % 23.4 L (24.0-44.0) % Monocytes % 12.0 (0.0-12.0) % Eosinophils % 3.8 (0.00-5.0) % Basophils % 0.2 (0.0-0.4) % Absolute Granulocytes 5.36 (1.4-6.9) Basophils # 0.02 (0-0.4) Sodium 138 (137-145) mmol/L Potassium 3.4 L (3.5-5.1) mmol/L Chloride 105 (98-107) mmol/L Carbon Dioxide 27 (22-30) mmol/L Anion Gap 9.2 (5-15) MEQ/L BUN 6 L (9-20) mg/dL Creatinine 0.71 (0.66-1.25) mg/dL Estimated GFR > 60.0 ML/MIN Glucose 164 H (74-106) mg/dL Calcium 8.0 L (8.4-10.2) mg/dL Total Bilirubin 0.70 (0.2-1.3) mg/dL AST 18 (17-59) U/L ALT 18 (0-50) U/L Alkaline Phosphatase 82 (38-126) U/L Serum Total Protein 5.5 L (6.3-8.2) g/dL Albumin 2.9 L (3.5-5.0) g/dL Micro Results-Entire Visit: Microbiology 03/12/18 02:47 Urine Culture - Final Urine, Void NO GROWTH Accuchecks Date 03/14/18 Date 03/14/18 Date 03/14/18 Date 03/14/18 Date 03/14/18 Date 03/14/18 Date 03/13/18 Date 03/13/18 Date 03/13/18 Date 03/13/18 Time 11:28 Time 07:53 Time 05:52 Time 04:15 Time 02:06 Time 00:00 Time 22:14 Time 20:00 Time 17:25 Time 15:16 Accucheck Value: 265 Accucheck Value: 143 Accucheck Value: 142 Accucheck Value: 169 Accucheck Value: 136 Accucheck Value: 158 Accucheck Value: 171 Accucheck Value: 203 Accucheck Value: 288 Accucheck Value: 194 - Procedures and Test Procedures and Tests throughout Hospitalization: Therapy Orders & Screens 03/12/18 06:26 Smoking Cessation Education ONCE Comment: Diagnosis: Hyperglycemia/Vomiting Smoking Status: Current some day smoker Have you smoked in the past 12 months: No Do you dip or chew tobacco: Yes If,Former Smoker,when did you quit: distant past Discharge Exam General Appearance: no apparent distress, alert Neurologic Exam: oriented x 3, cooperative Skin Exam: normal color, warm, dry, No rash Neck Exam: normal inspection Respiratory Exam: normal breath sounds, lungs clear, No crackles/rales, No rhonchi, No wheezing Cardiovascular Exam: regular rate/rhythm, normal heart sounds, No murmur Gastrointestinal/Abdomen Exam: soft, normal bowel sounds, No tenderness, No distention, No mass, No guarding, No rebound Extremity Exam: normal inspection, No pedal edema, No swelling Back Exam: normal inspection, No rash Final Diagnosis/Problem List - Final Discharge Diagnosis/Problem (1) DKA (diabetic ketoacidoses) Current Visit: Yes Status: Resolved Onset Date: ~03/12/18 Assessment & Plan: Resume home meds. Watch for hypoglycemia. F/u with me in office in 1 week. (2) Abdominal pain Current Visit: Yes Status: Resolved Onset Date: ~03/12/18 Assessment & Plan: home on PPI (3) Vomiting Current Visit: No Status: Resolved Onset Date: ~03/12/18 (4) Hypertension Current Visit: Yes Status: Chronic Onset Date: ~03/12/18 (5) Diabetes mellitus type I Current Visit: No Status: Chronic Assessment & Plan: needs to resume home meds (6) Polysubstance abuse Current Visit: No Status: Chronic Assessment & Plan: only + for THC this admission and denied other drugs - Discharge Disposition: Home, Self-Care Condition: Good Prescriptions: New Omeprazole 40 mg PO DAILY #30 capsule. Continue Insulin Lispro [Humalog] 6 unit SQ TIDWM #10 ml Insulin Glargine [Lantus Insulin] 24 unit SQ 1700 #10 ml Instructions: Diabetic Ketoacidosis (DC) Additional Instructions: CALL MEDICAID OFFICE AND DESIGNATE A PRIMARY CARE PHYSICIAN SO YOU CAN MAKE A FOLLOW UP APPOINTMENT Follow up with: VALENTINA ESPINO [Primary Care Provider] - Call for Appointment Forms: Discharge Instructions, Patient Portal Information, Work/School Release Form
== END 2018-03-14 15:31 | disposition home or self-care (01) ==
LOC: ED 22:43 → UNDOADMIN 03-12 05:47 → ICU 03-12 05:47
PROVIDERS: ADMIT Family Medicine; ATTEND Family Medicine
DX: E10.10 Type 1 diabetes mellitus with ketoacidosis without coma (principal); Z79.4 Long term (current) use of insulin; R10.9 Unspecified abdominal pain; R11.10 Vomiting, unspecified; I10 Essential (primary) hypertension; F19.10 Other psychoactive substance abuse, uncomplicated; Z79.899 Other long term (current) drug therapy
CPT/HCPCS: 36415; 74176; 80053; 80307; 81000; 82150; 82271; 82962; 83036; 83605; 83690; 85025; 85027; 87086; 96361; 96365; 96374; 96375; 99285; G0378; 96360; J1170; J1610; J2405; J2550; A9270-GY

== ENCOUNTER 2018-04-03 21:06 | Observation (INO) | payer OTHER ==
[2018-04-03] MEDS ORDERED: NovoLIN R IV ONE (21:30)
[2018-04-03] MEDS ORDERED: Sodium Chloride 0.9% 1000 ML 1,000 ML IV STA (21:30)
[2018-04-03] MEDS ORDERED: Phenergan 25 MG INJ IV ONE (21:30)
--- NOTE | 2018-04-03 21:30 | ERPHSYRPT ---
- History of Present Illness Time Seen by Provider: 04/03/18 21:28 Source: patient, family Exam Limitations: no limitations Patient Subjective Stated Complaint: hyperglycemia, vomiting, pain Triage Nursing Assessment: Pt blood sugar is 455 upon arrival, vomiting, states that he has pain everywhere, BP 164/113, Pulse 124, stated that he doesn't have a doctor that treats his diabetes but he gets insulin from his friends, he took 15 units of humalog today at approx 1200, Physician History: 32 y/o diabetic, noncompliant white male presents with sx of vomiting, generalized pain but especially in his abd. sx began 3 days ago.pt borrows insulin from friends.pt states he is admitted once a month. last admission here 03/12/18. pt used methamphetamines 2 days ago Timing/Duration: day(s) (3) Severity: moderate Associated Symptoms: nausea, vomiting, abdominal pain, malaise, weakness Allergies/Adverse Reactions: No Known Drug Allergies Allergy (Verified 04/03/18 21:22) Home Medications: No Reportable Medications [No Reported Medications] 04/03/18 [History] Hx Tetanus, Diphtheria Vaccination/Date Given: Yes Hx Influenza Vaccination/Date Given: No Hx Pneumococcal Vaccination/Date Given: No - Review of Systems Constitutional: Lethargy, Weakness Eyes: No Symptoms, No Discharge, No Eye Pain Ears, Nose, & Throat: No Symptoms, No Ear Pain Respiratory: No Symptoms, No Cough, No Dyspnea, No Stridor, No Wheezing Cardiac: No Symptoms, No Chest Pain, No Palpitations, No Syncope Abdominal/Gastrointestinal: Abdominal Pain, Nausea, Vomiting Genitourinary Symptoms: No Symptoms, No Dysuria, No Frequency, No Hematuria Musculoskeletal: No Symptoms Skin: No Symptoms Neurological: Lethargy Psychological: Drug Abuse, No Suicidal Ideations, No Homicidal Ideations Endocrine: No Symptoms Hematologic/Lymphatic: No Symptoms Immunological/Allergic: No Symptoms All Other Systems: Reviewed and Negative - Past Medical History Pertinent Past Medical History: Yes Neurological History: No Pertinent History ENT History: No Pertinent History Cardiac History: No Pertinent History Respiratory History: No Pertinent History Endocrine Medical History: Diabetes Type I Musculoskeletal History: No Pertinent History GI Medical History: No Pertinent History History: No Pertinent History Psycho-Social History: Anxiety, Depression Male Reproductive Disorders: No Pertinent History Other Medical History: DKA - Past Surgical History Past Surgical History: No Neuro Surgical History: No Pertinent History Cardiac: No Pertinent History Respiratory: No Pertinent History Gastrointestinal: No Pertinent History Genitourinary: No Pertinent History Musculoskeletal: No Pertinent History Male Surgical History: No Pertinent History Other Surgical History: PT SHAKES HEAD "NO" WHEN ASKED IF HE HAS EVER HAD SURGERY - Social History Smoking Status: Smoker, status unknown Exposure to second hand smoke: Yes Drug Use: methamphetamines Patient Lives Alone: No - Nursing Vital Signs Nursing Vital Signs: Initial Vital Signs Temperature 98.1 F 04/03/18 21:13 Pulse Rate 129 H 04/03/18 21:13 Blood Pressure 164/113 04/03/18 21:13 O2 Sat by Pulse Oximetry 96 04/03/18 21:13 Pain Scale Pain Intensity 8 - Physical Exam General Appearance: moderate distress, lethargy Eye Exam: PERRL/EOMI, post op pupil defect (L) Ears, Nose, Throat Exam: dry mucous membranes Neck Exam: normal inspection, non-tender, supple, full range of motion Respiratory Exam: normal breath sounds, lungs clear, airway intact, No chest tenderness, No respiratory distress, No accessory muscle use, No wheezing, No stridor Cardiovascular Exam: tachycardia Gastrointestinal/Abdomen Exam: soft, normal bowel sounds, tenderness (diffuse mild, not focal), No distention, No guarding, No rebound Rectal Exam: deferred Back Exam: normal inspection, normal range of motion, No CVA tenderness, No vertebral tenderness Extremity Exam: normal inspection, normal range of motion, pelvis stable Neurologic Exam: oriented x 3, cooperative, online editor II-XII nml as tested, intoxicated appearance Skin Exam: normal color, warm, dry Lymphatic Exam: No adenopathy SpO2: 96 Oxygen Delivery: Room Air - Course Nursing assessment & vital signs reviewed: Yes Ordered Tests: Active Orders 24 hr Category Date Time Status Accucheck STAT Care 04/03/18 21:30 Active IV Insertion STAT Care 04/03/18 21:30 Active CBC W DIFF Stat Lab 04/03/18 22:10 Completed CMP Stat Lab 04/03/18 22:10 Completed UA W/RFX UR CULTURE Stat Lab 04/03/18 23:30 Completed Medication Summary Discontinued Medications Generic Name Dose Route Start Last Admin Trade Name Freq PRN Reason Stop Dose Admin Hydromorphone HCl 1 mg 04/03/18 21:32 08/16/18 23:06 Hydromorphone 1 Mg/Ml Ampule IV 04/03/18 21:33 1 mg STAT ONE Administration Hydromorphone HCl Confirm 04/03/18 22:38 Hydromorphone 1 Mg/Ml Ampule Administered 04/03/18 22:39 Dose 1 mg .ROUTE .STK-MED ONE Sodium Chloride 1,000 mls @ 999 mls/hr 04/03/18 21:30 04/04/18 00:29 Sodium Chloride 0.9% 1000 Ml IV 04/03/18 22:30 Infused .Q1H1M STA Infusion Sodium Chloride Confirm 04/03/18 22:38 Sodium Chloride 0.9% 1000 Ml Administered 04/03/18 22:39 Dose 1,000 mls @ ud .ROUTE .STK-MED ONE Sodium Chloride 1,000 mls @ 999 mls/hr 04/04/18 00:24 04/04/18 01:43 Sodium Chloride 0.9% 1000 Ml IV 04/04/18 01:24 Infused .Q1H1M STA Infusion Sodium Chloride Confirm 04/04/18 00:28 Sodium Chloride 0.9% 1000 Ml Administered 04/04/18 00:29 Dose 1,000 mls @ ud .ROUTE .STK-MED ONE Insulin Human Regular 10 unit 04/03/18 21:30 04/03/18 23:08 Novolin R IV 04/03/18 21:31 10 unit STAT ONE Administration Insulin Human Regular Confirm 04/03/18 22:38 Novolin R Administered 04/03/18 22:39 Dose 10 unit .ROUTE .STK-MED ONE Insulin Human Regular 15 unit 04/04/18 00:29 04/04/18 00:31 Novolin R IV 04/04/18 00:30 15 unit STAT ONE Administration Insulin Human Regular Confirm 04/04/18 00:31 Novolin R Administered 04/04/18 00:32 Dose 15 unit .ROUTE .STK-MED ONE Promethazine HCl 12.5 mg 04/03/18 21:30 04/03/18 23:05 Phenergan 25 Mg Inj IV 04/03/18 21:31 12.5 mg STAT ONE Administration Promethazine HCl Confirm 04/03/18 22:37 Phenergan 25 Mg Inj Administered 04/03/18 22:38 Dose 25 mg .ROUTE .STK-MED ONE Lab/Rad Data: Laboratory Result Diagrams 04/03/18 22:10 04/03/18 22:10 Laboratory Results 04/03/18 04/03/18 04/03/18 Range/Units 23:30 22:10 22:10 WBC 19.9 H (4.0-10.5) K/mm3 RBC 5.37 (4.1-5.6) M/mm3 Hgb 16.1 (12.5-18.0) gm/dl Hct 45.3 (42-50) % MCV 84.4 (78-100) fl MCH 30.0 (26-32) pg MCHC 35.5 (32-36) g/dl RDW 13.5 (11.5-14.0) % Plt Count 508 H (150-450) K/mm3 MPV 8.7 (6-9.5) fl Gran % 90.7 H (36.0-66.0) % Eos # (Auto) 0 (0-0.5) Absolute Lymphs (auto) 0.73 L (1.0-4.6) Absolute Monos (auto) 1.10 (0.0-1.3) Lymphocytes % 3.7 L (24.0-44.0) % Monocytes % 5.5 (0.0-12.0) % Eosinophils % 0.0 (0.00-5.0) % Basophils % 0.1 (0.0-0.4) % Absolute Granulocytes 18.02 H (1.4-6.9) Basophils # 0.02 (0-0.4) Sodium 132 L (137-145) mmol/L Potassium 5.5 H (3.5-5.1) mmol/L Chloride 84 L (98-107) mmol/L Carbon Dioxide 22 (22-30) mmol/L Anion Gap 31.6 H (5-15) MEQ/L BUN 30 H (9-20) mg/dL Creatinine 1.43 H (0.66-1.25) mg/dL Estimated GFR > 60.0 ML/MIN Glucose 559 H* (74-106) mg/dL Calcium 9.5 (8.4-10.2) mg/dL Total Bilirubin 1.70 H (0.2-1.3) mg/dL AST 41 (17-59) U/L ALT 35 (0-50) U/L Alkaline Phosphatase 140 H (38-126) U/L Serum Total Protein 8.2 (6.3-8.2) g/dL Albumin 5.0 (3.5-5.0) g/dL Ur Collection Type CLEAN CATCH Urine Color YELLOW (YELLOW) Urine Appearance CLEAR (CLEAR) Urine pH 5.0 (5-6) Ur Specific [place] 1.025 (1.005-1.025) Urine Protein NEGATIVE (Negative) Urine Ketones LARGE (NEGATIVE) Urine Blood NEGATIVE (0-5) Tomas/ul Urine Nitrite NEGATIVE (NEGATIVE) Urine Bilirubin NEGATIVE (NEGATIVE) Urine Urobilinogen NORMAL (0-1) mg/dL Ur Leukocyte Esterase NEGATIVE (NEGATIVE) Urine Culture Reflexed NO (NO) Urine Glucose 1000 (NEGATIVE) mg/dL Specimen Received 04/03/18 2330 - Progress Progress: improved, re-examined Progress Note: 04/04/18 01:58 more interactive but falls back asleep. spoke with dr. castaneda, library acquisitions technician physician. reviewed pt hx, condition, lab results. he accepts pt for admission. wbc 19.9 co2 22 bs 559 down to 205 large amt of ketone in urine. Discussed with : Deidre Will see patient in: hospital (full admit) Counseled pt/family regarding: lab results, diagnosis - Departure Referrals: VALENTINA ESPINO [Primary Care Provider] -
[2018-04-03] MEDS ORDERED: Hydromorphone 1 mg/ml Ampule IV ONE (21:32)
[2018-04-03 22:21] LABS: BASOPHIL % 0.1 % (0.0-0.4); Basophil (Absolute #) 0.02 (0-0.4); Eosinophil (Absolute #) 0 (0-0.5); Granulocyte Absolute (ANC) 18.02 (1.4-6.9); Granulocytes % 90.7 % (36.0-66.0); Hematocrit 45.3 % (42-50); Hemoglobin 16.1 gm/dl (12.5-18.0); Lymphocyte (Absolute #) 0.73 (1.0-4.6); Lymphocytes % 3.7 % (24.0-44.0); Mean Cell Volume 84.4 fl (78-100); Mean Corpuscular Hgb Concent. 35.5 g/dl (32-36); Mean Platelet Volume 8.7 fl (6-9.5); Monocytes % 5.5 % (0.0-12.0); Platelet Count 508 K/mm3 (150-450); Red Blood Count 5.37 M/mm3 (4.1-5.6); Red Cell Distribution Width 13.5 % (11.5-14.0); White Blood Count 19.9 K/mm3 (4.0-10.5)
[2018-04-03] MEDS ORDERED: Phenergan 25 MG INJ ONE (22:37)
[2018-04-03] MEDS ORDERED: NovoLIN R ONE (22:38)
[2018-04-03] MEDS ORDERED: Hydromorphone 1 mg/ml Ampule ONE (22:38)
[2018-04-03] MEDS ORDERED: Sodium Chloride 0.9% 1000 ML 1,000 ML ONE (22:38)
[2018-04-03 22:39] LABS: ALKALINE PHOSPHATASE 140 U/L (38-126); ANION GAP 31.6 MEQ/L (5-15); BLOOD UREA NITROGEN 30 mg/dL (9-20); CHLORIDE 84 mmol/L (98-107); Calcium 9.5 mg/dL (8.4-10.2); Carbon Dioxide 22 mmol/L (22-30); Creatinine 1 1.43 mg/dL (0.66-1.25); Potassium 5.5 mmol/L (3.5-5.1); SGOT/AST 41 U/L (17-59); SGPT/ALT 35 U/L (0-50); SODIUM 132 mmol/L (137-145); Total Protein 8.2 g/dL (6.3-8.2)
[2018-04-03 22:47] LABS: Glucose 559 mg/dL (74-106)
[2018-04-04] MEDS ORDERED: Sodium Chloride 0.9% 1000 ML 1,000 ML IV STA (00:24)
[2018-04-04] MEDS ORDERED: Sodium Chloride 0.9% 1000 ML 1,000 ML ONE (00:28)
[2018-04-04] MEDS ORDERED: NovoLIN R IV ONE (00:29)
[2018-04-04 00:30] LABS: Appearance CLEAR (CLEAR)
[2018-04-04 00:31] LABS: Bilirubin NEGATIVE (NEGATIVE); Blood NEGATIVE Ery/ul (0-5); Glucose 1000 mg/dL (NEGATIVE); Ketones LARGE (NEGATIVE); Leukocyte Esterase NEGATIVE (NEGATIVE); Nitrite NEGATIVE (NEGATIVE); Protein,Urine Dip NEGATIVE (Negative); Specific Gravity 1.025 (1.005-1.025); Urobilinogen NORMAL mg/dL (0-1)
[2018-04-04] MEDS ORDERED: NovoLIN R ONE (00:31)
[2018-04-04] MEDS ORDERED: Zofran 4 MG/2 ML VIAL IV PRN (02:42)
[2018-04-04] MEDS ORDERED: PROTONIX 40 MG IV IV SCH ×2 (02:42→22:00)
[2018-04-04] MEDS ORDERED: TYLENOL 325 MG PO PRN (02:42)
[2018-04-04] MEDS ORDERED: Lantus Insulin SQ SCH ×2 (03:00→22:00)
[2018-04-04] MEDS: Sodium Chloride 0.9% 1000 ML 1,000 ML IV SCH ×4 (03:11→22:52)
[2018-04-04] MEDS: NovoLOG Insulin SQ PRN ×3 (03:49→11:40)
[2018-04-04 05:21] LABS: VBG BASE EXCESS -0.9 (-2.0-2.0); VBG CARBOXYHEMOGLOBIN 2.7 % T HGB (0.0-6.9); VBG HCO3- 22.2 meq/L (22-28); VBG HEMOGLOBIN 15.1; VBG O2 SATURATION 97.6 (95-100); VBG POTASSIUM 3.8 (3.5-5.1); VBG pH 7.45 (7.32-7.42)
[2018-04-04 06:05] LABS: ALKALINE PHOSPHATASE 101 U/L (38-126); BLOOD UREA NITROGEN 29 mg/dL (9-20); CHLORIDE 95 mmol/L (98-107); Calcium 8.9 mg/dL (8.4-10.2); Carbon Dioxide 23 mmol/L (22-30); Creatinine 1 1.17 mg/dL (0.66-1.25); Glucose 295 mg/dL (74-106); Potassium 4.2 mmol/L (3.5-5.1); SGOT/AST 27 U/L (17-59); SGPT/ALT 29 U/L (0-50); SODIUM 137 mmol/L (137-145); Total Protein 6.6 g/dL (6.3-8.2)
[2018-04-04 06:50] LABS: Hematocrit 40.8 % (42-50); Hemoglobin 14.5 gm/dl (12.5-18.0); Mean Cell Volume 86.1 fl (78-100); Mean Corpuscular Hemoglobin 30.6 pg (26-32); Mean Corpuscular Hgb Concent. 35.5 g/dl (32-36); Mean Platelet Volume 8.5 fl (6-9.5); Platelet Count 424 K/mm3 (150-450); Red Blood Count 4.74 M/mm3 (4.1-5.6); Red Cell Distribution Width 13.6 % (11.5-14.0); White Blood Count 21.8 K/mm3 (4.0-10.5)
[2018-04-04 07:37] LABS: BAND 5 % (0.0-2.0); Lymphocytes 11 % (24-44); Monocyte 11 % (0.0-12.0); Neutrophils 73 % (36.-66.); Platelet Estimate NORMAL (NORMAL); Total Cells Counted 100
[2018-04-04 07:41] LABS: Granulocyte Absolute (ANC) 17.03 (1.4-6.9)
--- NOTE | 2018-04-04 08:47 | PCM.HP ---
History of Present Illness - Chief Complaint Chief Complaint: DKA History of Present Illness: is a 32 year old male with type 1 diabetes with a long history of noncompliance and lack of insurance. He reports he has been out of insulin for the last 1 week, developed severe nausea and vomiting yesterday and inability to keep anything down. He has a history of drug abuse, last used meth 3 days ago. nausea and vomiting has resolved today, he is npo and only complains of a dry mouth this morning. - Review of Systems Constitutional: No Fever, No Chills Respiratory: No Cough, No Short Of Breath Cardiac: No Chest Pain, No Edema, No Syncope Abdominal/Gastrointestinal: Nausea, Vomiting Genitourinary Symptoms: No Dysuria Skin: No Rash Medications & Allergies Home Medications: Home Medication List No Reportable Medications [No Reported Medications] 04/03/18 [History Confirmed 04/03/18] Allergies/Adverse Reactions: Allergies Allergy/AdvReac Type Severity Reaction Status Date / Time No Known Drug Allergies Allergy Verified 04/03/18 21:22 - Past Medical History Past Medical History: Yes Neurological History: No Pertinent History ENT History: No Pertinent History Cardiac History: Hypertension Respiratory History: No Pertinent History Endocrine Medical History: Diabetes Type I Musculoskelatal History: No Pertinent History GI Medical History: No Pertinent History History: No Pertinent History Pyscho-Social History: Anxiety, Depression Male Reproductive Disorders: No Pertinent History Comment: DKA - Past Surgical History Past Surgical History: No Neuro Surgical History: No Pertinent History Cardiac History: No Pertinent History Respiratory Surgery: No Pertinent History GI Surgical History: No Pertinent History Genitourinary Surgical Hx: No Pertinent History Musculskeletal Surgical Hx: No Pertinent History Male Surgical History: No Pertinent History Other Surgical History: PT SHAKES HEAD "NO" WHEN ASKED IF HE HAS EVER HAD SURGERY - Social History Smoking Status: Unknown if ever smoked Exposure to second hand smoke: Yes Alcohol: None Drug Use: methamphetamines - Physical Exam Vital Signs: Vital Signs - 24 hr Temp Pulse Resp BP Pulse Ox 04/04/18 04:11 98.0 F 118 H 14 121/78 95 04/04/18 02:42 94 L 04/04/18 02:29 109 H 20 127/81 97 04/04/18 02:02 96 04/04/18 01:39 98.1 F 108 H 18 113/70 97 04/04/18 00:07 107 H 18 108/69 94 L 04/03/18 23:12 115 H 20 128/89 100 04/03/18 21:13 98.1 F 129 H 164/113 96 General Appearance: no apparent distress Neurologic Exam: alert, oriented x 3 Respiratory Exam: normal breath sounds, lungs clear, No respiratory distress Cardiovascular Exam: regular rate/rhythm, normal heart sounds, normal peripheral pulses Gastrointestinal/Abdomen Exam: soft, normal bowel sounds, No tenderness, No mass Extremity Exam: normal inspection, normal range of motion, pelvis stable Results - Labs Lab/Micro Results: Accuchecks Date 04/04/18 Date 04/04/18 Time 06:46 Time 05:56 Accucheck Value: 146 Accucheck Value: 206 Accucheck Value: 206 Accucheck Value: 424 Lab Results-Last 24 Hours 04/03/18 04/03/18 04/03/18 Range/Units 22:10 22:10 23:30 WBC 19.9 H (4.0-10.5) K/mm3 RBC 5.37 (4.1-5.6) M/mm3 Hgb 16.1 (12.5-18.0) gm/dl Hct 45.3 (42-50) % MCV 84.4 (78-100) fl MCH 30.0 (26-32) pg MCHC 35.5 (32-36) g/dl RDW 13.5 (11.5-14.0) % Plt Count 508 H (150-450) K/mm3 MPV 8.7 (6-9.5) fl Gran % 90.7 H (36.0-66.0) % Eos # (Auto) 0 (0-0.5) Absolute Lymphs (auto) 0.73 L (1.0-4.6) Absolute Monos (auto) 1.10 (0.0-1.3) Lymphocytes % 3.7 L (24.0-44.0) % Monocytes % 5.5 (0.0-12.0) % Eosinophils % 0.0 (0.00-5.0) % Basophils % 0.1 (0.0-0.4) % Absolute Granulocytes 18.02 H (1.4-6.9) Segmented Neutrophils (36.-66.) % Band Neutrophils (0.0-2.0) % Lymphocytes (Manual) (24-44) % Monocytes (Manual) (0.0-12.0) % Basophils # 0.02 (0-0.4) Platelet Estimate (NORMAL) RBC Morphology pO2/FiO2 Ratio % VBG pH (7.32-7.42) VBG pCO2 at Pat Temp (42-55) mm/Hg VBG pO2 at Pat Temp (25-40) mm/Hg VBG HCO3 (22-28) meq/L VBG O2 Sat (Jalen) (95-100) VBG Base Excess (-2.0-2.0) VBG Hemoglobin VBG Carboxyhemoglobin (0.0-6.9) % T HGB POC Potassium (3.5-5.1) Sodium 132 L (137-145) mmol/L Potassium 5.5 H (3.5-5.1) mmol/L Chloride 84 L (98-107) mmol/L Carbon Dioxide 22 (22-30) mmol/L Anion Gap 31.6 H (5-15) MEQ/L BUN 30 H (9-20) mg/dL Creatinine 1.43 H (0.66-1.25) mg/dL Estimated GFR > 60.0 ML/MIN Glucose 559 H* (74-106) mg/dL Calcium 9.5 (8.4-10.2) mg/dL Total Bilirubin 1.70 H (0.2-1.3) mg/dL AST 41 (17-59) U/L ALT 35 (0-50) U/L Alkaline Phosphatase 140 H (38-126) U/L Serum Total Protein 8.2 (6.3-8.2) g/dL Albumin 5.0 (3.5-5.0) g/dL Ur Collection Type CLEAN CATCH Urine Color YELLOW (YELLOW) Urine Appearance CLEAR (CLEAR) Urine pH 5.0 (5-6) Ur Specific [place] 1.025 (1.005-1.025) Urine Protein NEGATIVE (Negative) Urine Ketones LARGE (NEGATIVE) Urine Blood NEGATIVE (0-5) Tomas/ul Urine Nitrite NEGATIVE (NEGATIVE) Urine Bilirubin NEGATIVE (NEGATIVE) Urine Urobilinogen NORMAL (0-1) mg/dL Ur Leukocyte Esterase NEGATIVE (NEGATIVE) Urine Culture Reflexed NO (NO) Urine Glucose 1000 (NEGATIVE) mg/dL Specimen Received 04/03/18 1760 04/04/18 04/04/18 04/04/18 Range/Units 05:15 05:15 05:15 WBC 21.8 H (4.0-10.5) K/mm3 RBC 4.74 (4.1-5.6) M/mm3 Hgb 14.5 (12.5-18.0) gm/dl Hct 40.8 L (42-50) % MCV 86.1 (78-100) fl MCH 30.6 (26-32) pg MCHC 35.5 (32-36) g/dl RDW 13.6 (11.5-14.0) % Plt Count 424 (150-450) K/mm3 MPV 8.5 (6-9.5) fl Gran % (36.0-66.0) % Eos # (Auto) (0-0.5) Absolute Lymphs (auto) (1.0-4.6) Absolute Monos (auto) (0.0-1.3) Lymphocytes % (24.0-44.0) % Monocytes % (0.0-12.0) % Eosinophils % (0.00-5.0) % Basophils % (0.0-0.4) % Absolute Granulocytes 17.03 H (1.4-6.9) Segmented Neutrophils 73 H (36.-66.) % Band Neutrophils 5 H (0.0-2.0) % Lymphocytes (Manual) 11 L (24-44) % Monocytes (Manual) 11 (0.0-12.0) % Basophils # (0-0.4) Platelet Estimate NORMAL (NORMAL) RBC Morphology NORMAL pO2/FiO2 Ratio 21.0 % VBG pH 7.45 H (7.32-7.42) VBG pCO2 at Pat Temp 32 L (42-55) mm/Hg VBG pO2 at Pat Temp 70 H (25-40) mm/Hg VBG HCO3 22.2 (22-28) meq/L VBG O2 Sat (Jalen) 97.6 (95-100) VBG Base Excess -0.9 (-2.0-2.0) VBG Hemoglobin 15.1 VBG Carboxyhemoglobin 2.7 (0.0-6.9) % T HGB POC Potassium 3.8 (3.5-5.1) Sodium 137 (137-145) mmol/L Potassium 4.2 (3.5-5.1) mmol/L Chloride 95 L (98-107) mmol/L Carbon Dioxide 23 (22-30) mmol/L Anion Gap 24.0 H (5-15) MEQ/L BUN 29 H (9-20) mg/dL Creatinine 1.17 (0.66-1.25) mg/dL Estimated GFR > 60.0 ML/MIN Glucose 295 H (74-106) mg/dL Calcium 8.9 (8.4-10.2) mg/dL Total Bilirubin 1.00 (0.2-1.3) mg/dL AST 27 (17-59) U/L ALT 29 (0-50) U/L Alkaline Phosphatase 101 (38-126) U/L Serum Total Protein 6.6 (6.3-8.2) g/dL Albumin 4.0 (3.5-5.0) g/dL Ur Collection Type Urine Color (YELLOW) Urine Appearance (CLEAR) Urine pH (5-6) Ur Specific [place] (1.005-1.025) Urine Protein (Negative) Urine Ketones (NEGATIVE) Urine Blood (0-5) Tomas/ul Urine Nitrite (NEGATIVE) Urine Bilirubin (NEGATIVE) Urine Urobilinogen (0-1) mg/dL Ur Leukocyte Esterase (NEGATIVE) Urine Culture Reflexed (NO) Urine Glucose (NEGATIVE) mg/dL Specimen Received Accuchecks Date 04/04/18 Date 04/04/18 Time 06:46 Time 05:56 Accucheck Value: 146 Accucheck Value: 206 Accucheck Value: 206 Accucheck Value: 424 Assessment/Plan (1) DKA (diabetic ketoacidoses) Current Visit: No Status: Resolved Onset Date: ~03/12/18 Qualifiers: Assessment & Plan: improved, still has anion gap but secondary to hypochloremia as his bicarb is in normal range. will cover with subq insulin and adance diet today. move to regular floor Code(s): E13.10 - OTH DIABETES MELLITUS WITH KETOACIDOSIS WITHOUT COMA (2) Diabetes mellitus type I Current Visit: No Status: Chronic Qualifiers: (3) Illicit drug use Current Visit: No Status: Acute Onset Date: ~03/12/18 Code(s): F19.90 - OTHER PSYCHOACTIVE SUBSTANCE USE, UNSPECIFIED, UNCOMPLICATED
[2018-04-04] MEDS: NovoLOG Insulin SQ SCH ×2 (11:40→16:44)
[2018-04-05] MEDS: Sodium Chloride 0.9% 1000 ML 1,000 ML IV SCH (06:01)
[2018-04-05 07:53] VITALS: BP 126/80; PULSE 77; O2SAT 98
[2018-04-05] MEDS: NovoLOG Insulin SQ SCH ×2 (08:35→13:05)
[2018-04-05] MEDS: NovoLOG Insulin SQ PRN (08:35)
--- NOTE | 2018-04-05 10:09 | PCM.DS ---
Discharge Summary Date of Admission: 04/04/18 02:34 Admitting Physician: VALENTINA QUINONES Primary Care Provider: VALENTINA QUINONES Allergies Allergies No Known Drug Allergies Allergy (Verified 04/03/18 21:22) Hospital Summary - Hospital Course Hospital Course: patient was admitted in DKA, was out of insulin at home. has no insurance, has been admitted multiple times. he is noncompliant and has not followed through attaining insurance coverage after previous visits. - Vitals & Intake/Output Vital Signs: Vital Signs Temperature 97.8 F 04/05/18 07:53 Pulse Rate 77 04/05/18 07:53 Respiratory Rate 17 04/05/18 07:53 Blood Pressure 126/80 04/05/18 07:53 O2 Sat by Pulse Oximetry 98 04/05/18 07:53 Intake & Output: Intake & Output 04/02/18 04/03/18 04/04/18 04/05/18 11:59 11:59 11:59 11:59 Intake Total 418 4364 Output Total 2475 Balance 418 1889 Weight 65.5 kg 65.5 kg - Lab Result Diagrams: 04/04/18 05:15 04/04/18 05:15 Lab Results-Last 24 Hrs: Accuchecks Date 04/04/18 Date 04/04/1804/04/18 Date 04/04/18 Time 22:08 Time 21:30 Time 15:53 Time 11:30 Accucheck Value: 290 Accucheck Value: 189 Accucheck Value: 73 Accucheck Value: 130 Accucheck Value: 207 Micro Results-Entire Visit: Accuchecks Date 04/04/1804/04/1804/04/18 Date 04/04/18 Time 22:08 Time 21:30 Time 15:53 Time 11:30 Accucheck Value: 290 Accucheck Value: 189 Accucheck Value: 73 Accucheck Value: 130 Accucheck Value: 207 Discharge Exam General Appearance: no apparent distress, alert Skin Exam: normal color, warm, dry Eye Exam: PERRL, EOMI, eyes nml inspection Ears, Nose, Throat Exam: normal ENT inspection, pharynx normal, moist mucous membranes Neck Exam: normal inspection, non-tender, supple, full range of motion Respiratory Exam: normal breath sounds, lungs clear, No respiratory distress Cardiovascular Exam: regular rate/rhythm, normal heart sounds Gastrointestinal/Abdomen Exam: soft, No tenderness, No mass Final Diagnosis/Problem List - Final Discharge Diagnosis/Problem (1) DKA (diabetic ketoacidoses) Current Visit: No Status: Resolved Onset Date: ~03/12/18 (2) Diabetes mellitus type I Current Visit: No Status: Chronic Assessment & Plan: home on basaglar and novolog, Kristin has been contacted and will be able to make sure he gets his insulin (3) Illicit drug use Current Visit: No Status: Acute Onset Date: ~03/12/18 - Discharge Disposition: Home, Self-Care Condition: Stable Prescriptions: New Pen Needle, Diabetic [1St Tier Unifine Pentips] 1 each MC QID #100 dis.needle Insulin Glargine,Hum.rec.anlog [Basaglar Kwikpen U-100] 20 unit SQ DAILY #2 insuln.pen Insulin Aspart [NovoLOG Insulin] 5 unit SQ TIDAC #2 pens Instructions: Drug Abuse and Drug Addiction (DC), Diabetic Ketoacidosis (DC) Additional Instructions: use novolog 5 units with meals then sliding scale coverage as needed, continue basaglar 20 units daily. f/u with Dr Quinones in 1 week Follow up with: VALENTINA QUINONES [Primary Care Provider] - 04/11/18 11:15 am Forms: Discharge Instructions
== END 2018-04-05 13:25 | disposition home or self-care (01) ==
LOC: ED 21:06 → ICU 04-04 02:34 → INTOOBSV 04-04 02:34 → MED SURG 04-04 10:18
PROVIDERS: ADMIT Family Medicine; ATTEND Family Medicine
DX: E10.10 Type 1 diabetes mellitus with ketoacidosis without coma (principal); Z79.4 Long term (current) use of insulin; F19.90 Other psychoactive substance use, unspecified, uncomplicated; F41.8 Other specified anxiety disorders
CPT/HCPCS: 36000; 36415; 80053; 81002; 82805; 82962; 85025; 93268; 94760; 96360; 96361; 96372; 96374; 96375; 99285; G0378; 96376; J1170; J2405; J2550; A9270-GY

== ENCOUNTER 2018-05-29 18:03 | Emergency (ER) | payer OTHER ==
[2018-05-29] MEDS ORDERED: Sodium Chloride 0.9% 1000 ML 1,000 ML IV STA ×2 (18:21→19:30)
[2018-05-29] MEDS ORDERED: Zofran 4 MG/2 ML VIAL IV ONE (18:21)
--- NOTE | 2018-05-29 18:21 | ERPHSYRPT ---
- History of Present Illness Time Seen by Provider: 05/29/18 18:15 Source: patient, family Exam Limitations: no limitations Physician History: 32 y/o diabetic, noncompliant white male, with h/o recurrent DKA, presents with back pain, intermittent vomiting for a week. pts sx are worsening. pt denies back trauma. 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 pt admits to marijuana and methamphetamine use recently Timing/Duration: week(s) (1) Severity: moderate Associated Symptoms: nausea, vomiting, No abdominal pain, No shortness of breath , No heartburn, No diaphoresis, No cough, No chills Allergies/Adverse Reactions: No Known Drug Allergies Allergy (Verified 04/03/18 21:22) Hx Tetanus, Diphtheria Vaccination/Date Given: Yes Hx Influenza Vaccination/Date Given: No Hx Pneumococcal Vaccination/Date Given: No - Review of Systems Constitutional: No Symptoms, No Fever, No Chills Eyes: No Symptoms, No Eye Pain Ears, Nose, & Throat: No Symptoms, No Ear Pain, No Mouth Pain, No Throat Pain, No Snoring, No Stridor Respiratory: No Symptoms, No Cough, No Dyspnea, No Stridor, No Wheezing Cardiac: No Symptoms, No Chest Pain, No Palpitations, No Syncope Abdominal/Gastrointestinal: Vomiting, No Abdominal Pain, No Diarrhea Genitourinary Symptoms: No Symptoms, No Dysuria, No Frequency, No Hematuria Musculoskeletal: Back Pain Skin: No Symptoms Neurological: No Symptoms Psychological: No Symptoms Endocrine: No Symptoms Hematologic/Lymphatic: No Symptoms Immunological/Allergic: No Symptoms All Other Systems: Reviewed and Negative - Past Medical History Pertinent Past Medical History: Yes Neurological History: No Pertinent History ENT History: No Pertinent History Cardiac History: No Pertinent History Respiratory History: No Pertinent History Endocrine Medical History: Diabetes Type I Musculoskeletal History: No Pertinent History GI Medical History: No Pertinent History History: No Pertinent History Psycho-Social History: Anxiety, Depression Male Reproductive Disorders: No Pertinent History Other Medical History: DKA - Past Surgical History Past Surgical History: No Neuro Surgical History: No Pertinent History Cardiac: No Pertinent History Respiratory: No Pertinent History Gastrointestinal: No Pertinent History Genitourinary: No Pertinent History Musculoskeletal: No Pertinent History Male Surgical History: No Pertinent History Other Surgical History: PT SHAKES HEAD "NO" WHEN ASKED IF HE HAS EVER HAD SURGERY - Social History Smoking Status: Smoker, status unknown Exposure to second hand smoke: Yes Drug Use: methamphetamines Patient Lives Alone: No - Nursing Vital Signs Nursing Vital Signs: Initial Vital Signs Temperature 98.7 F 05/29/18 18:15 Pulse Rate 119 H 05/29/18 18:15 Respiratory Rate 22 05/29/18 18:15 Blood Pressure 152/109 05/29/18 18:15 O2 Sat by Pulse Oximetry 96 05/29/18 18:15 Pain Scale Pain Intensity [Back] 8 Pain Intensity 8 - Physical Exam General Appearance: moderate distress, alert, anxiety Eye Exam: PERRL/EOMI Ears, Nose, Throat Exam: normal ENT inspection, moist mucous membranes Neck Exam: normal inspection, non-tender, supple Respiratory Exam: normal breath sounds, lungs clear, airway intact, No chest tenderness, No respiratory distress, No accessory muscle use, No rhonchi, No wheezing, No stridor Cardiovascular Exam: normal heart sounds, normal peripheral pulses, tachycardia Gastrointestinal/Abdomen Exam: soft, normal bowel sounds, No tenderness, No guarding, No rebound Rectal Exam: not done Back Exam: normal inspection, normal range of motion, No CVA tenderness, No vertebral tenderness Extremity Exam: normal inspection, normal range of motion, pelvis stable Neurologic Exam: alert, oriented x 3, cooperative, 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 as tested Skin Exam: normal color, warm, diaphoresis Lymphatic Exam: No adenopathy SpO2 Interpretation: normal Oxygen Delivery: Room Air - Course Nursing assessment & vital signs reviewed: Yes Ordered Tests: Active Orders 24 hr Category Date Time Status IV Insertion STAT Care 05/29/18 18:21 Active AMYLASE Stat Lab 05/29/18 18:48 Completed CBC W DIFF Stat Lab 05/29/18 18:48 Completed CMP Stat Lab 05/29/18 18:48 Completed CULTURE,URINE Stat Lab 05/29/18 18:48 Received LIPASE Stat Lab 05/29/18 18:48 Completed Lactic Acid Stat Lab 05/29/18 18:21 Completed Lactic Acid Stat Lab 05/29/18 21:10 Completed UA W/RFX UR CULTURE Stat Lab 05/29/18 18:48 Completed Medication Summary Discontinued Medications Generic Name Dose Route Start Last Admin Trade Name Freq PRN Reason Stop Dose Admin Hydromorphone HCl 1 mg 05/29/18 18:22 05/29/18 18:43 Hydromorphone 1 Mg/Ml Ampule IV 05/29/18 18:23 1 mg STAT ONE Administration Hydromorphone HCl Confirm 05/29/18 18:42 Hydromorphone 1 Mg/Ml Ampule Administered 05/29/18 18:43 Dose 1 mg .ROUTE .STK-MED ONE Sodium Chloride 1,000 mls @ 999 mls/hr 05/29/18 18:21 05/29/18 21:08 Sodium Chloride 0.9% 1000 Ml IV 05/29/18 19:21 Infused .Q1H1M STA Infusion Sodium Chloride Confirm 05/29/18 18:42 Sodium Chloride 0.9% 1000 Ml Administered 05/29/18 18:43 Dose 1,000 mls @ ud .ROUTE .STK-MED ONE Sodium Chloride 1,000 mls @ 999 mls/hr 05/29/18 19:30 05/29/18 21:08 Sodium Chloride 0.9% 1000 Ml IV 05/29/18 20:30 Infused .Q1H1M STA Infusion Sodium Chloride Confirm 05/29/18 19:31 Sodium Chloride 0.9% 1000 Ml Administered 05/29/18 19:32 Dose 1,000 mls @ ud .ROUTE .STK-MED ONE Ondansetron HCl 4 mg 05/29/18 18:21 05/29/18 18:44 Zofran 4 Mg/2 Ml Vial IV 05/29/18 18:22 4 mg STAT ONE Administration Ondansetron HCl Confirm 05/29/18 18:42 Zofran 4 Mg/2 Ml Vial Administered 05/29/18 18:43 Dose 4 mg .ROUTE .STK-MED ONE Promethazine HCl 12.5 mg 05/29/18 19:39 05/29/18 19:46 Phenergan 25 Mg Inj IV 05/29/18 19:40 12.5 mg STAT ONE Administration Promethazine HCl Confirm 05/29/18 19:42 Phenergan 25 Mg Inj Administered 05/29/18 19:43 Dose 25 mg .ROUTE .STK-MED ONE Lab/Rad Data: Laboratory Result Diagrams 05/29/18 18:48 05/29/18 18:48 Laboratory Results 05/29/18 05/29/18 05/29/18 Range/Units 21:10 18:48 18:48 WBC (4.0-10.5) K/mm3 RBC (4.1-5.6) M/mm3 Hgb (12.5-18.0) gm/dl Hct (42-50) % MCV (78-100) fl MCH (26-32) pg MCHC (32-36) g/dl RDW (11.5-14.0) % Plt Count (150-450) K/mm3 MPV (6-9.5) fl Gran % (36.0-66.0) % Eos # (Auto) (0-0.5) Absolute Lymphs (auto) (1.0-4.6) Absolute Monos (auto) (0.0-1.3) Lymphocytes % (24.0-44.0) % Monocytes % (0.0-12.0) % Eosinophils % (0.00-5.0) % Basophils % (0.0-0.4) % Absolute Granulocytes (1.4-6.9) Basophils # (0-0.4) Sodium 137 (137-145) mmol/L Potassium 3.9 (3.5-5.1) mmol/L Chloride 96 L (98-107) mmol/L Carbon Dioxide 25 (22-30) mmol/L Anion Gap 20.6 H (5-15) MEQ/L BUN 22 H (9-20) mg/dL Creatinine 1.00 (0.66-1.25) mg/dL Estimated GFR > 60.0 ML/MIN Glucose 188 H (74-106) mg/dL Lactic Acid 0.9 (0.4-2.0) Calcium 10.1 (8.4-10.2) mg/dL Total Bilirubin 1.40 H (0.2-1.3) mg/dL AST 24 (17-59) U/L ALT 21 (0-50) U/L Alkaline Phosphatase 101 (38-126) U/L Serum Total Protein 8.3 H (6.3-8.2) g/dL Albumin 5.0 (3.5-5.0) g/dL Amylase 71 (30-110) U/L Lipase < 10 L (23-300) U/L Urine Color YELLOW (YELLOW) Urine Appearance SLIGHTLY CLOUDY (CLEAR) Urine pH 7.0 (5-6) Ur Specific Mitchell 1.028 (1.005-1.025) Urine Protein 100 (Negative) Urine Ketones SMALL (NEGATIVE) Urine Blood NEGATIVE (0-5) Tomas/ul Urine Nitrite NEGATIVE (NEGATIVE) Urine Bilirubin NEGATIVE (NEGATIVE) Urine Urobilinogen 2 (0-1) mg/dL Ur Leukocyte Esterase NEGATIVE (NEGATIVE) Urine WBC (Auto) 11-15 (0-5) /HPF Urine RBC (Auto) 11-15 (0-2) /HPF U Hyaline Cast (Auto) 0-2 (0-2) /LPF Urine Mucus (Auto) SLIGHT (NEGATIVE) /HPF Urine Culture Reflexed YES (NO) Urine Glucose >=500 (NEGATIVE) mg/dL 05/29/18 05/29/18 Range/Units 18:48 18:21 WBC 8.6 (4.0-10.5) K/mm3 RBC 5.04 (4.1-5.6) M/mm3 Hgb 15.1 (12.5-18.0) gm/dl Hct 42.7 (42-50) % MCV 84.7 (78-100) fl MCH 30.0 (26-32) pg MCHC 35.4 (32-36) g/dl RDW 12.1 (11.5-14.0) % Plt Count 377 (150-450) K/mm3 MPV 8.6 (6-9.5) fl Gran % 65.3 (36.0-66.0) % Eos # (Auto) 0.43 (0-0.5) Absolute Lymphs (auto) 1.71 (1.0-4.6) Absolute Monos (auto) 0.81 (0.0-1.3) Lymphocytes % 19.8 L (24.0-44.0) % Monocytes % 9.4 (0.0-12.0) % Eosinophils % 5.0 (0.00-5.0) % Basophils % 0.5 (0.0-0.4) % Absolute Granulocytes 5.63 (1.4-6.9) Basophils # 0.04 (0-0.4) Sodium (137-145) mmol/L Potassium (3.5-5.1) mmol/L Chloride (98-107) mmol/L Carbon Dioxide (22-30) mmol/L Anion Gap (5-15) MEQ/L BUN (9-20) mg/dL Creatinine (0.66-1.25) mg/dL Estimated GFR ML/MIN Glucose (74-106) mg/dL Lactic Acid 3.0 H (0.4-2.0) Calcium (8.4-10.2) mg/dL Total Bilirubin (0.2-1.3) mg/dL AST (17-59) U/L ALT (0-50) U/L Alkaline Phosphatase (38-126) U/L Serum Total Protein (6.3-8.2) g/dL Albumin (3.5-5.0) g/dL Amylase (30-110) U/L Lipase (23-300) U/L Urine Color (YELLOW) Urine Appearance (CLEAR) Urine pH (5-6) Ur Specific Mitchell (1.005-1.025) Urine Protein (Negative) Urine Ketones (NEGATIVE) Urine Blood (0-5) Tomas/ul Urine Nitrite (NEGATIVE) Urine Bilirubin (NEGATIVE) Urine Urobilinogen (0-1) mg/dL Ur Leukocyte Esterase (NEGATIVE) Urine WBC (Auto) (0-5) /HPF Urine RBC (Auto) (0-2) /HPF U Hyaline Cast (Auto) (0-2) /LPF Urine Mucus (Auto) (NEGATIVE) /HPF Urine Culture Reflexed (NO) Urine Glucose (NEGATIVE) mg/dL - Progress Progress: improved, re-examined Progress Note: 05/29/18 19:40 i reviewed pt hx, condition, lab results with dr. barton. i told her pt is doing much better since ED management. she oks d/c to home if pt continues to improve. pt desires discharge to home as well. i will discharge him to home if he is franc pos, feeling well and his lactic acid has improved. 05/29/18 21:16 pt doing better. pts lactic acid 0.9. will discharge to home Discussed with : Stacie Counseled pt/family regarding: lab results, diagnosis, need for follow-up - Departure Time of Disposition: 21:17 Departure Disposition: Home Clinical Impression: Vomiting, Back pain Condition: Stable Critical Care Time: No Referrals: VALENTINA BARTON [Primary Care Provider] - Additional Instructions: drink plenty of fluids. monitor and treat your blood glucose. follow up with your primary doctor tomorrow for further management of your back pain. Prescriptions: Promethazine HCl 25 mg [Phenergan 25 mg] 25 mg PO Q8H PRN PRN #6 tablet PRN Reason: Nausea/Vomiting
[2018-05-29] MEDS ORDERED: Hydromorphone 1 mg/ml Ampule IV ONE (18:22)
[2018-05-29] MEDS ORDERED: Sodium Chloride 0.9% 1000 ML 1,000 ML ONE ×2 (18:42→19:31)
[2018-05-29] MEDS ORDERED: Hydromorphone 1 mg/ml Ampule ONE (18:42)
[2018-05-29] MEDS ORDERED: Zofran 4 MG/2 ML VIAL ONE (18:42)
[2018-05-29 18:53] LABS: BASOPHIL % 0.5 % (0.0-0.4); Basophil (Absolute #) 0.04 (0-0.4); Eosinophil (Absolute #) 0.43 (0-0.5); Granulocyte Absolute (ANC) 5.63 (1.4-6.9); Granulocytes % 65.3 % (36.0-66.0); Hematocrit 42.7 % (42-50); Hemoglobin 15.1 gm/dl (12.5-18.0); Lymphocyte (Absolute #) 1.71 (1.0-4.6); Lymphocytes % 19.8 % (24.0-44.0); Mean Cell Volume 84.7 fl (78-100); Mean Corpuscular Hgb Concent. 35.4 g/dl (32-36); Mean Platelet Volume 8.6 fl (6-9.5); Monocyte (Absolute #) 0.81 (0.0-1.3); Monocytes % 9.4 % (0.0-12.0); Platelet Count 377 K/mm3 (150-450); Red Blood Count 5.04 M/mm3 (4.1-5.6); Red Cell Distribution Width 12.1 % (11.5-14.0); White Blood Count 8.6 K/mm3 (4.0-10.5)
[2018-05-29 19:01] LABS: Appearance SLIGHTLY CLOUDY (CLEAR); Bilirubin NEGATIVE (NEGATIVE); Blood NEGATIVE Ery/ul (0-5); Glucose >=500 mg/dL (NEGATIVE); Ketones SMALL (NEGATIVE); Leukocyte Esterase NEGATIVE (NEGATIVE); Nitrite NEGATIVE (NEGATIVE); Protein,Urine Dip 100 (Negative); Specific Gravity 1.028 (1.005-1.025); Urobilinogen 2 mg/dL (0-1)
[2018-05-29 19:10] LABS: ALKALINE PHOSPHATASE 101 U/L (38-126); AMYLASE 71 U/L (30-110); ANION GAP 20.6 MEQ/L (5-15); BLOOD UREA NITROGEN 22 mg/dL (9-20); CHLORIDE 96 mmol/L (98-107); Calcium 10.1 mg/dL (8.4-10.2); Carbon Dioxide 25 mmol/L (22-30); Glucose 188 mg/dL (74-106); Potassium 3.9 mmol/L (3.5-5.1); SGOT/AST 24 U/L (17-59); SGPT/ALT 21 U/L (0-50); SODIUM 137 mmol/L (137-145); Total Protein 8.3 g/dL (6.3-8.2)
[2018-05-29 19:12] LABS: LIPASE < 10 U/L (23-300)
[2018-05-29] MEDS ORDERED: Phenergan 25 MG INJ IV ONE (19:39)
[2018-05-29] MEDS ORDERED: Phenergan 25 MG INJ ONE (19:42)
[2018-05-29 20:04] VITALS: O2SAT 100
[2018-05-29 21:10] VITALS: BP 146/93; PULSE 87
== END 2018-05-29 21:30 | disposition home or self-care (01) ==
LOC: ED 18:03
DX: R11.2 Nausea with vomiting, unspecified (principal); M54.9 Dorsalgia, unspecified; E10.9 Type 1 diabetes mellitus without complications
CPT/HCPCS: 36000; 36415; 80053; 81001; 82150; 83605; 83690; 85025; 87086; 96360; 96361; 96374; 96375; 99284; J1170; J2405; J2550

== ENCOUNTER 2018-05-30 18:53 | Observation (INO) | payer OTHER ==
[2018-05-30] MEDS ORDERED: Sodium Chloride 0.9% 1000 ML 1,000 ML IV STA ×2 (19:10→20:21)
[2018-05-30] MEDS ORDERED: Zofran 4 MG/2 ML VIAL IV ONE (19:10)
[2018-05-30] MEDS ORDERED: PROTONIX 40 MG IV IV ONE ×2 (19:10→19:15)
[2018-05-30] MEDS ORDERED: Zofran 4 MG/2 ML VIAL ONE (19:15)
[2018-05-30] MEDS ORDERED: Sodium Chloride 0.9% 1000 ML 1,000 ML ONE ×2 (19:15→20:57)
--- NOTE | 2018-05-30 19:27 | ERPHSYRPT ---
- History of Present Illness Time Seen by Provider: 05/30/18 19:10 Historian: patient Exam Limitations: other Patient Subjective Stated Complaint: Pt states he has been vomiting for the last few days. Also c/o low back pain. Was seen in this ER last night and discharged home. Triage Nursing Assessment: Pt alert and oriented x3. skin pink warm and dry. afebrile. bowel sounds present x4. abdomen soft and tender with palpation Physician History: PATIENT WITH A HISTORY OF TYPE 1 DIABETES COMPLAINS OF FREQUENT EPISODES OF EMESIS X 7-8 EPISODES DAILY FOR 4-5 DAYS ASSOCIATED WITH CRAMPY ABDOMINAL PAIN. DENIES FEVER, CHILLS, DIARRHEA OR URINARY SYMPTOMS. PATIENT EVALUATED IN EMERGENCY LAST NIGHT, HAS NO RELIEF IN VOMITING WHILE TAKING ZOFRAN. Timing/Duration: day(s) Activities at Onset: none Quality: cramping Abdominal Pain Onset Location: suprapubic Pain Radiation: no radiation Severity of Pain-Max: mild Severity of Pain-Current: mild Associated Symptoms: loss of appetite, nausea Previous symptoms: same symptoms as today Allergies/Adverse Reactions: No Known Drug Allergies Allergy (Verified 04/03/18 21:22) Hx Tetanus, Diphtheria Vaccination/Date Given: Yes Hx Influenza Vaccination/Date Given: No Hx Pneumococcal Vaccination/Date Given: No - Review of Systems Constitutional: Fatigue, Weakness, No Fever, No Chills Eyes: No Symptoms Ears, Nose, & Throat: No Symptoms Respiratory: No Symptoms, No Cough, No Dyspnea Cardiac: No Symptoms, No Chest Pain, No Edema, No Syncope Abdominal/Gastrointestinal: Abdominal Pain, Nausea, Vomiting, No Diarrhea Genitourinary Symptoms: No Symptoms, No Dysuria Musculoskeletal: No Symptoms, No Back Pain, No Neck Pain Skin: No Rash Neurological: No Dizziness, No Focal Weakness, No Sensory Changes Psychological: No Symptoms Endocrine: No Symptoms All Other Systems: Reviewed and Negative - Past Medical History Pertinent Past Medical History: Yes Neurological History: No Pertinent History ENT History: No Pertinent History Cardiac History: No Pertinent History Respiratory History: No Pertinent History Endocrine Medical History: Diabetes Type I Musculoskeletal History: No Pertinent History GI Medical History: No Pertinent History History: No Pertinent History Psycho-Social History: Anxiety, Depression Male Reproductive Disorders: No Pertinent History Other Medical History: DKA - Past Surgical History Past Surgical History: No Neuro Surgical History: No Pertinent History Cardiac: No Pertinent History Respiratory: No Pertinent History Gastrointestinal: No Pertinent History Genitourinary: No Pertinent History Musculoskeletal: No Pertinent History Male Surgical History: No Pertinent History Other Surgical History: PT SHAKES HEAD "NO" WHEN ASKED IF HE HAS EVER HAD SURGERY - Social History Smoking Status: Never smoker Exposure to second hand smoke: Yes Drug Use: marijuana Patient Lives Alone: No - Nursing Vital Signs Nursing Vital Signs: Initial Vital Signs Temperature 97.4 F 05/30/18 18:58 Respiratory Rate 16 05/30/18 18:58 Blood Pressure 150/111 05/30/18 18:58 O2 Sat by Pulse Oximetry 100 05/30/18 18:58 Pain Scale Pain Intensity 8 - Physical Exam General Appearance: no apparent distress, lethargy, other (ORIENTED X 3) Eye Exam: PERRL/EOMI, eyes nml inspection Ears, Nose, Throat Exam: normal ENT inspection, pharynx normal, moist mucous membranes Neck Exam: normal inspection, non-tender, supple, full range of motion Respiratory Exam: normal breath sounds, lungs clear, No respiratory distress Cardiovascular Exam: regular rate/rhythm, normal heart sounds, tachycardia Gastrointestinal/Abdomen Exam: soft, normal bowel sounds, tenderness (MINIMAL SUPRAPUBIC TENDERNESS), No mass Back Exam: normal inspection, normal range of motion, No CVA tenderness, No vertebral tenderness Extremity Exam: normal inspection, normal range of motion, pelvis stable Neurologic Exam: alert, oriented x 3, cooperative, normal mood/affect, nml cerebellar function, sensation nml, No motor deficits Skin Exam: normal color, warm, dry SpO2 Interpretation: normal SpO2: 100 Oxygen Delivery: Room Air - Radiology Exams Abdomen X-ray Interpretation: Interpreted by me, Negative (NO EVIDENCE OF FREE AIR, OR BOWEL OBSTRUCTION) Ordered Tests: Active Orders 24 hr Category Date Time Status Up With Assistance ROUTINE Activity 05/30/18 20:32 Ordered ACCUCHECK [Accucheck] STAT Care 05/30/18 19:17 Active Accucheck ACHS Care 05/30/18 20:32 Ordered Call Admit Doctor for Orders ON ADMISSION Care 05/30/18 20:34 Ordered Code Status Order ROUTINE Care 05/30/18 20:33 Ordered IV Care Q6H Care 05/30/18 20:33 Ordered IV Insertion STAT Care 05/30/18 19:10 Active Intake and Output Q12H Care 05/30/18 20:[address] in Observation ROUTINE Care 05/30/18 20:33 Ordered Vital Signs Q4H Care 05/30/18 20:32 Ordered Clear Liquid Diet 05/30/18 Dinner Ordered OBSTR/ACUTE ABDOMEN SERIES Stat Exams 05/30/18 19:28 Taken AMYLASE Stat Lab 05/30/18 19:25 Completed CBC W DIFF Stat Lab 05/30/18 19:25 Completed CMP Stat Lab 05/30/18 19:25 Completed LIPASE Stat Lab 05/30/18 19:25 Completed Lactic Acid Stat Lab 05/30/18 19:20 Completed MAG [MAGNESIUM] Stat Lab 05/30/18 19:25 Completed UA W/RFX UR CULTURE Stat Lab 05/30/18 19:10 Uncollected Urine Triage Profile Stat Lab 05/30/18 19:10 Uncollected Transfer Order Routine Transfer 05/30/18 Ordered Medication Summary Generic Name Dose Route Start Last Admin Trade Name Freq PRN Reason Stop Dose Admin Sodium Chloride 1,000 mls @ 999 mls/hr 05/30/18 20:21 Sodium Chloride 0.9% 1000 Ml IV 05/30/18 21:21 .Q1H1M STA Discontinued Medications Generic Name Dose Route Start Last Admin Trade Name Freq PRN Reason Stop Dose Admin Sodium Chloride 1,000 mls @ 999 mls/hr 05/30/18 19:10 05/30/18 19:17 Sodium Chloride 0.9% 1000 Ml IV 05/30/18 20:10 999 mls/hr .Q1H1M STA Administration Sodium Chloride Confirm 05/30/18 19:15 Sodium Chloride 0.9% 1000 Ml Administered 05/30/18 19:16 Dose 1,000 mls @ ud .ROUTE .STK-MED ONE Ondansetron HCl 4 mg 05/30/18 19:10 05/30/18 19:17 Zofran 4 Mg/2 Ml Vial IV 05/30/18 19:11 4 mg STAT ONE Administration Ondansetron HCl Confirm 05/30/18 19:15 Zofran 4 Mg/2 Ml Vial Administered 05/30/18 19:16 Dose 4 mg .ROUTE .STK-MED ONE Pantoprazole Sodium 40 mg 05/30/18 19:10 05/30/18 19:17 Protonix 40 Mg Iv IV 05/30/18 19:11 40 mg STAT ONE Administration Pantoprazole Sodium Confirm 05/30/18 19:15 Protonix 40 Mg Iv Administered 05/30/18 19:16 Dose 40 mg IV .STK-MED ONE Lab/Rad Data: Laboratory Result Diagrams 05/30/18 19:25 05/30/18 19:25 Laboratory Results 05/30/18 05/30/18 05/30/18 Range/Units 19:25 19:25 19:25 WBC (4.0-10.5) K/mm3 RBC (4.1-5.6) M/mm3 Hgb (12.5-18.0) gm/dl Hct (42-50) % MCV (78-100) fl MCH (26-32) pg MCHC (32-36) g/dl RDW (11.5-14.0) % Plt Count (150-450) K/mm3 MPV (6-9.5) fl Gran % (36.0-66.0) % Eos # (Auto) (0-0.5) Absolute Lymphs (auto) (1.0-4.6) Absolute Monos (auto) (0.0-1.3) Lymphocytes % (24.0-44.0) % Monocytes % (0.0-12.0) % Eosinophils % (0.00-5.0) % Basophils % (0.0-0.4) % Absolute Granulocytes (1.4-6.9) Basophils # (0-0.4) Sodium 138 (137-145) mmol/L Potassium 4.1 (3.5-5.1) mmol/L Chloride 98 (98-107) mmol/L Carbon Dioxide 25 (22-30) mmol/L Anion Gap 19.0 H (5-15) MEQ/L BUN 16 (9-20) mg/dL Creatinine 0.93 (0.66-1.25) mg/dL Estimated GFR > 60.0 ML/MIN Glucose 136 H (74-106) mg/dL Lactic Acid (0.4-2.0) Calcium 10.0 (8.4-10.2) mg/dL Magnesium 1.8 (1.6-2.3) mg/dL Total Bilirubin 1.30 (0.2-1.3) mg/dL AST 23 (17-59) U/L ALT 18 (0-50) U/L Alkaline Phosphatase 90 (38-126) U/L Serum Total Protein 8.0 (6.3-8.2) g/dL Albumin 4.9 (3.5-5.0) g/dL Amylase 58 (30-110) U/L Lipase < 10 L (23-300) U/L 05/30/18 05/30/18 Range/Units 19:25 19:20 WBC 10.1 (4.0-10.5) K/mm3 RBC 4.81 (4.1-5.6) M/mm3 Hgb 14.7 (12.5-18.0) gm/dl Hct 40.3 L (42-50) % MCV 83.8 (78-100) fl MCH 30.6 (26-32) pg MCHC 36.5 H (32-36) g/dl RDW 11.8 (11.5-14.0) % Plt Count 404 (150-450) K/mm3 MPV 8.5 (6-9.5) fl Gran % 73.4 H (36.0-66.0) % Eos # (Auto) 0.25 (0-0.5) Absolute Lymphs (auto) 1.40 (1.0-4.6) Absolute Monos (auto) 1.01 (0.0-1.3) Lymphocytes % 13.9 L (24.0-44.0) % Monocytes % 10.0 (0.0-12.0) % Eosinophils % 2.5 (0.00-5.0) % Basophils % 0.2 (0.0-0.4) % Absolute Granulocytes 7.42 H (1.4-6.9) Basophils # 0.02 (0-0.4) Sodium (137-145) mmol/L Potassium (3.5-5.1) mmol/L Chloride (98-107) mmol/L Carbon Dioxide (22-30) mmol/L Anion Gap (5-15) MEQ/L BUN (9-20) mg/dL Creatinine (0.66-1.25) mg/dL Estimated GFR ML/MIN Glucose (74-106) mg/dL Lactic Acid 1.7 (0.4-2.0) Calcium (8.4-10.2) mg/dL Magnesium (1.6-2.3) mg/dL Total Bilirubin (0.2-1.3) mg/dL AST (17-59) U/L ALT (0-50) U/L Alkaline Phosphatase (38-126) U/L Serum Total Protein (6.3-8.2) g/dL Albumin (3.5-5.0) g/dL Amylase (30-110) U/L Lipase (23-300) U/L - Progress Progress Note: 05/30/18 19:34, ACCUCHECK 140 IV NORMAL SALINE 1000ML/HR X 2, ZOFRAN 4MG 05/30/18 19:36 Discuss[address] with DrMarcin: Yan (DISCUSSED WITH DR CARRERA AT 2030 FOR OBSERVATION) - Departure Time of Disposition: 21:00 Departure Disposition: Observation Clinical Impression: INTRACTABLE EMESIS, DEHYDRATION Condition: Stable Critical Care Time: No Referrals: VALENTINA ESPINO [Primary Care Provider] -
[2018-05-30 19:30] LABS: BASOPHIL % 0.2 % (0.0-0.4); Basophil (Absolute #) 0.02 (0-0.4); Eosinophil % 2.5 % (0.00-5.0); Eosinophil (Absolute #) 0.25 (0-0.5); Granulocyte Absolute (ANC) 7.42 (1.4-6.9); Granulocytes % 73.4 % (36.0-66.0); Hematocrit 40.3 % (42-50); Hemoglobin 14.7 gm/dl (12.5-18.0); Lymphocytes % 13.9 % (24.0-44.0); Mean Cell Volume 83.8 fl (78-100); Mean Corpuscular Hemoglobin 30.6 pg (26-32); Mean Corpuscular Hgb Concent. 36.5 g/dl (32-36); Mean Platelet Volume 8.5 fl (6-9.5); Monocyte (Absolute #) 1.01 (0.0-1.3); Platelet Count 404 K/mm3 (150-450); Red Blood Count 4.81 M/mm3 (4.1-5.6); Red Cell Distribution Width 11.8 % (11.5-14.0); White Blood Count 10.1 K/mm3 (4.0-10.5)
[2018-05-30 19:50] LABS: ALBUMIN 4.9 g/dL (3.5-5.0); ALKALINE PHOSPHATASE 90 U/L (38-126); AMYLASE 58 U/L (30-110); BLOOD UREA NITROGEN 16 mg/dL (9-20); CHLORIDE 98 mmol/L (98-107); Carbon Dioxide 25 mmol/L (22-30); Creatinine 1 0.93 mg/dL (0.66-1.25); Glucose 136 mg/dL (74-106); Potassium 4.1 mmol/L (3.5-5.1); SGOT/AST 23 U/L (17-59); SGPT/ALT 18 U/L (0-50); SODIUM 138 mmol/L (137-145)
[2018-05-30 19:52] LABS: LIPASE < 10 U/L (23-300)
[2018-05-30] MEDS: MORPHINE SULFATE 2 MG INJ IV PRN (20:41)
[2018-05-30] MEDS ORDERED: Sodium Chloride 0.9% 1000 ML 1,000 ML IV SCH (20:45)
[2018-05-30] MEDS: Phenergan 25 MG INJ IV PRN (22:07)
[2018-05-30] MEDS: Lactated Ringers 1,000 ML IV SCH (22:45)
--- NOTE | 2018-05-30 23:13 | XRAY ---
Indication: Nausea and vomiting. Comparison: Chest exam January 02, 2018. 2 views of the abdomen nonacute and nonobstructed with left pelvic phlebolith. Solid organs and osseous structures unremarkable. Single PA chest again demonstrates normal heart, lungs, and bony thorax. Impression: Negative abdomen. Stable normal 1 view chest.
[2018-05-30 23:16] LABS: Appearance SLIGHTLY CLOUDY (CLEAR); Bilirubin NEGATIVE (NEGATIVE); Blood SMALL Ery/ul (0-5); Glucose 50 mg/dL (NEGATIVE); Ketones MODERATE (NEGATIVE); Leukocyte Esterase TRACE (NEGATIVE); Nitrite NEGATIVE (NEGATIVE); Protein,Urine Dip >=500 (Negative); Specific Gravity 1.028 (1.005-1.025); Urobilinogen 4 mg/dL (0-1)
[2018-05-30 23:19] LABS: Amphetamine,Urine NEGATIVE (NEGATIVE); Barbiturate,Urine NEGATIVE (NEGATIVE); Benzodiazepine,Urine NEGATIVE (NEGATIVE); Cocaine,Urine NEGATIVE (NEGATIVE); Methadone,Urine NEGATIVE (NEGATIVE); Opiate,Urine POSITIVE (NEGATIVE); PCP,Urine NEGATIVE (NEGATIVE); THC,Urine POSITIVE (NEGATIVE)
[2018-05-31] MEDS: Zofran 4 MG/2 ML VIAL IV PRN ×2 (00:11→06:25)
[2018-05-31] MEDS: NovoLOG Insulin SQ PRN ×3 (00:11→11:40)
[2018-05-31] MEDS: Phenergan 25 MG INJ IV PRN ×3 (03:30→12:03)
[2018-05-31] MEDS: Lactated Ringers 1,000 ML IV SCH ×4 (06:38→23:15)
[2018-05-31] MEDS: MORPHINE SULFATE 2 MG INJ IV PRN ×3 (06:39→23:15)
[2018-05-31] MEDS: PROTONIX 40 MG IV IV SCH (09:06)
[2018-05-31] MEDS ORDERED: Lactated Ringers 1,000 ML IV ONE (09:25)
[2018-05-31] MEDS ORDERED: TRANDATE 20 MG/5 ML SYRINGE IV ONE (09:26)
--- NOTE | 2018-05-31 09:37 | PCM.HP ---
History of Present Illness - Chief Complaint Chief Complaint: Intractable Emesis, Dehydration Date: 05/31/18 History of Present Illness: is a 32 year old male. with previous history of poorly controlled type 1 diabetes. He states he takes his insulin but when asked when he took it last he was very angry and eventually states he thinks he took it the night before last. He complains of low back pain for the last 1 week and nausea and vomiting with diffuse abdominal pain for the last 3 days. He has not been able to keep anything down for the last 48 hours. He came to the ED and received fluids but no relief and returned and was admitted. He has no diarrhea, no dysuria, no pain in any specific area of his abdomen. He has no hematemesis or coffee ground emesis and no melena. He has not had any fevers. He state he uses marijuana but denies any other illicit drug use. He denies using any synthetic marijuana or any different marijuana then he typically uses. The ED note from 2 days ago notes he admitted to methamphetamine use but he denies this now. He was given opiates in ED 2 days ago which could explain his positive drug screen for opiates yesterday. - Review of Systems Constitutional: No Fever, No Chills Eyes: No Symptoms Ears, Nose, & Throat: No Symptoms Respiratory: No Cough, No Short Of Breath Cardiac: No Chest Pain, No Edema, No Syncope Abdominal/Gastrointestinal: Abdominal Pain, Nausea, Vomiting, No Diarrhea Genitourinary Symptoms: No Dysuria Musculoskeletal: Back Pain, No Neck Pain Skin: No Rash Neurological: No Dizziness, No Focal Weakness, No Sensory Changes Psychological: No Symptoms Endocrine: No Symptoms Hematologic/Lymphatic: No Symptoms Immunological/Allergic: No Symptoms Medications & Allergies Home Medications: Home Medication List Insulin Aspart [NovoLOG Insulin] 5 unit SQ TIDAC #2 pens 04/05/18 [Rx Confirmed 05/30/18] Insulin Glargine,Hum.rec.anlog [Basaglar Kwikpen U-100] 20 unit SQ DAILY #2 insuln.pen 04/05/18 [Rx Confirmed 05/30/18] Pen Needle, Diabetic [1St Tier Unifine Pentips] 1 each MC QID #100 dis.needle [Rx Confirmed 05/30/18] Promethazine HCl 25 mg [Phenergan 25 mg] 25 mg PO Q8H PRN PRN #6 tablet [Rx Confirmed 05/30/18] Allergies/Adverse Reactions: Allergies Allergy/AdvReac Type Severity Reaction Status Date / Time No Known Drug Allergies Allergy Verified 04/03/18 21:22 - Past Medical History Past Medical History: Yes Neurological History: No Pertinent History ENT History: No Pertinent History Cardiac History: No Pertinent History Respiratory History: No Pertinent History Endocrine Medical History: Diabetes Type I Musculoskelatal History: No Pertinent History GI Medical History: No Pertinent History History: No Pertinent History Pyscho-Social History: Anxiety, Depression Male Reproductive Disorders: No Pertinent History Comment: DKA - Past Surgical History Past Surgical History: No Neuro Surgical History: No Pertinent History Cardiac History: No Pertinent History Respiratory Surgery: No Pertinent History GI Surgical History: No Pertinent History Genitourinary Surgical Hx: No Pertinent History Musculskeletal Surgical Hx: No Pertinent History Male Surgical History: No Pertinent History Other Surgical History: PT SHAKES HEAD "NO" WHEN ASKED IF HE HAS EVER HAD SURGERY - Social History Smoking Status: Never smoker Exposure to second hand smoke: Yes Alcohol: None Drug Use: marijuana - Physical Exam Vital Signs: Vital Signs - 24 hr Temp Pulse Resp BP BP Pulse Ox 05/31/18 07:20 97.9 F 108 H 17 166/86 98 05/31/18 04:00 98.3 F 120 H 16 163/100 98 05/31/18 00:00 97.6 F 102 H 14 165/99 97 05/30/18 22:13 97.8 F 99 H 16 174/94 99 05/30/18 20:37 100 05/30/18 20:32 95 H 145/104 100 05/30/18 19:50 98 H 18 150/97 99 05/30/18 18:58 97.4 F 16 150/111 100 General Appearance: mild distress (nauseated and uncomfortable in bed) Neurologic Exam: alert, oriented x 3, cooperative, normal mood/affect, nml cerebellar function, nml station & gait, sensation nml, No motor deficits Eye Exam: PERRL/EOMI, eyes nml inspection Ears, Nose, Throat Exam: normal ENT inspection, TMs normal, pharynx normal, moist mucous membranes Neck Exam: normal inspection, non-tender, supple, full range of motion Respiratory Exam: normal breath sounds, lungs clear, No respiratory distress Cardiovascular Exam: normal heart sounds, normal peripheral pulses, tachycardia Gastrointestinal/Abdomen Exam: soft, normal bowel sounds, No tenderness, No mass Back Exam: normal inspection, normal range of motion, No CVA tenderness, No vertebral tenderness Extremity Exam: normal inspection, normal range of motion, pelvis stable Skin Exam: normal color, warm, dry, No rash Lymphatic Exam: No adenopathy Results - Labs Lab/Micro Results: Accuchecks Date 05/31/18 Accucheck Value: 239 Accucheck Value: 241 Accucheck Value: 140 Lab Results-Last 24 Hours 05/30/18 05/30/18 05/30/18 Range/Units 19:20 19:25 19:25 WBC 10.1 (4.0-10.5) K/mm3 RBC 4.81 (4.1-5.6) M/mm3 Hgb 14.7 (12.5-18.0) gm/dl Hct 40.3 L (42-50) % MCV 83.8 (78-100) fl MCH 30.6 (26-32) pg MCHC 36.5 H (32-36) g/dl RDW 11.8 (11.5-14.0) % Plt Count 404 (150-450) K/mm3 MPV 8.5 (6-9.5) fl Gran % 73.4 H (36.0-66.0) % Eos # (Auto) 0.25 (0-0.5) Absolute Lymphs (auto) 1.40 (1.0-4.6) Absolute Monos (auto) 1.01 (0.0-1.3) Lymphocytes % 13.9 L (24.0-44.0) % Monocytes % 10.0 (0.0-12.0) % Eosinophils % 2.5 (0.00-5.0) % Basophils % 0.2 (0.0-0.4) % Absolute Granulocytes 7.42 H (1.4-6.9) Basophils # 0.02 (0-0.4) Sodium (137-145) mmol/L Potassium (3.5-5.1) mmol/L Chloride (98-107) mmol/L Carbon Dioxide (22-30) mmol/L Anion Gap (5-15) MEQ/L BUN (9-20) mg/dL Creatinine (0.66-1.25) mg/dL Estimated GFR ML/MIN Glucose (74-106) mg/dL Lactic Acid 1.7 (0.4-2.0) Calcium (8.4-10.2) mg/dL Magnesium (1.6-2.3) mg/dL Total Bilirubin (0.2-1.3) mg/dL AST (17-59) U/L ALT (0-50) U/L Alkaline Phosphatase (38-126) U/L Serum Total Protein (6.3-8.2) g/dL Albumin (3.5-5.0) g/dL Amylase 58 (30-110) U/L Lipase < 10 L (23-300) U/L Urine Color (YELLOW) Urine Appearance (CLEAR) Urine pH (5-6) Ur Specific [place] (1.005-1.025) Urine Protein (Negative) Urine Ketones (NEGATIVE) Urine Blood (0-5) Tomas/ul Urine Nitrite (NEGATIVE) Urine Bilirubin (NEGATIVE) Urine Urobilinogen (0-1) mg/dL Ur Leukocyte Esterase (NEGATIVE) Urine WBC (Auto) (0-5) /HPF Urine RBC (Auto) (0-2) /HPF U Epithel Cells (Auto) (FEW) /HPF Urine Mucus (Auto) (NEGATIVE) /HPF Urine Culture Reflexed (NO) Urine Glucose (NEGATIVE) mg/dL Urine Opiates Level (NEGATIVE) Ur Methadone (NEGATIVE) Urine Barbiturates (NEGATIVE) Ur Phencyclidine (PCP) (NEGATIVE) Urine Amphetamine (NEGATIVE) U Benzodiazepine Level (NEGATIVE) Urine Cocaine (NEGATIVE) Urine Marijuana (THC) (NEGATIVE) 05/30/18 05/30/18 05/30/18 Range/Units 19:25 19:25 23:00 WBC (4.0-10.5) K/mm3 RBC (4.1-5.6) M/mm3 Hgb (12.5-18.0) gm/dl Hct (42-50) % MCV (78-100) fl MCH (26-32) pg MCHC (32-36) g/dl RDW (11.5-14.0) % Plt Count (150-450) K/mm3 MPV (6-9.5) fl Gran % (36.0-66.0) % Eos # (Auto) (0-0.5) Absolute Lymphs (auto) (1.0-4.6) Absolute Monos (auto) (0.0-1.3) Lymphocytes % (24.0-44.0) % Monocytes % (0.0-12.0) % Eosinophils % (0.00-5.0) % Basophils % (0.0-0.4) % Absolute Granulocytes (1.4-6.9) Basophils # (0-0.4) Sodium 138 (137-145) mmol/L Potassium 4.1 (3.5-5.1) mmol/L Chloride 98 (98-107) mmol/L Carbon Dioxide 25 (22-30) mmol/L Anion Gap 19.0 H (5-15) MEQ/L BUN 16 (9-20) mg/dL Creatinine 0.93 (0.66-1.25) mg/dL Estimated GFR > 60.0 ML/MIN Glucose 136 H (74-106) mg/dL Lactic Acid (0.4-2.0) Calcium 10.0 (8.4-10.2) mg/dL Magnesium 1.8 (1.6-2.3) mg/dL Total Bilirubin 1.30 (0.2-1.3) mg/dL AST 23 (17-59) U/L ALT 18 (0-50) U/L Alkaline Phosphatase 90 (38-126) U/L Serum Total Protein 8.0 (6.3-8.2) g/dL Albumin 4.9 (3.5-5.0) g/dL Amylase (30-110) U/L Lipase (23-300) U/L Urine Color (YELLOW) Urine Appearance (CLEAR) Urine pH (5-6) Ur Specific [place] (1.005-1.025) Urine Protein (Negative) Urine Ketones (NEGATIVE) Urine Blood (0-5) Tomas/ul Urine Nitrite (NEGATIVE) Urine Bilirubin (NEGATIVE) Urine Urobilinogen (0-1) mg/dL Ur Leukocyte Esterase (NEGATIVE) Urine WBC (Auto) (0-5) /HPF Urine RBC (Auto) (0-2) /HPF U Epithel Cells (Auto) (FEW) /HPF Urine Mucus (Auto) (NEGATIVE) /HPF Urine Culture Reflexed (NO) Urine Glucose (NEGATIVE) mg/dL Urine Opiates Level POSITIVE (NEGATIVE) Ur Methadone NEGATIVE (NEGATIVE) Urine Barbiturates NEGATIVE (NEGATIVE) Ur Phencyclidine (PCP) NEGATIVE (NEGATIVE) Urine Amphetamine NEGATIVE (NEGATIVE) U Benzodiazepine Level NEGATIVE (NEGATIVE) Urine Cocaine NEGATIVE (NEGATIVE) Urine Marijuana (THC) POSITIVE (NEGATIVE) 05/30/18 Range/Units Unknown WBC (4.0-10.5) K/mm3 RBC (4.1-5.6) M/mm3 Hgb (12.5-18.0) gm/dl Hct (42-50) % MCV (78-100) fl MCH (26-32) pg MCHC (32-36) g/dl RDW (11.5-14.0) % Plt Count (150-450) K/mm3 MPV (6-9.5) fl Gran % (36.0-66.0) % Eos # (Auto) (0-0.5) Absolute Lymphs (auto) (1.0-4.6) Absolute Monos (auto) (0.0-1.3) Lymphocytes % (24.0-44.0) % Monocytes % (0.0-12.0) % Eosinophils % (0.00-5.0) % Basophils % (0.0-0.4) % Absolute Granulocytes (1.4-6.9) Basophils # (0-0.4) Sodium (137-145) mmol/L Potassium (3.5-5.1) mmol/L Chloride (98-107) mmol/L Carbon Dioxide (22-30) mmol/L Anion Gap (5-15) MEQ/L BUN (9-20) mg/dL Creatinine (0.66-1.25) mg/dL Estimated GFR ML/MIN Glucose (74-106) mg/dL Lactic Acid (0.4-2.0) Calcium (8.4-10.2) mg/dL Magnesium (1.6-2.3) mg/dL Total Bilirubin (0.2-1.3) mg/dL AST (17-59) U/L ALT (0-50) U/L Alkaline Phosphatase (38-126) U/L Serum Total Protein (6.3-8.2) g/dL Albumin (3.5-5.0) g/dL Amylase (30-110) U/L Lipase (23-300) U/L Urine Color YURIY (YELLOW) Urine Appearance SLIGHTLY CLOUDY (CLEAR) Urine pH 7.0 (5-6) Ur Specific [place] 1.028 (1.005-1.025) Urine Protein >=500 (Negative) Urine Ketones MODERATE (NEGATIVE) Urine Blood SMALL (0-5) Tomas/ul Urine Nitrite NEGATIVE (NEGATIVE) Urine Bilirubin NEGATIVE (NEGATIVE) Urine Urobilinogen 4 (0-1) mg/dL Ur Leukocyte Esterase TRACE (NEGATIVE) Urine WBC (Auto) 6-10 (0-5) /HPF Urine RBC (Auto) 26-50 (0-2) /HPF U Epithel Cells (Auto) RARE (FEW) /HPF Urine Mucus (Auto) SLIGHT (NEGATIVE) /HPF Urine Culture Reflexed YES (NO) Urine Glucose 50 (NEGATIVE) mg/dL Urine Opiates Level (NEGATIVE) Ur Methadone (NEGATIVE) Urine Barbiturates (NEGATIVE) Ur Phencyclidine (PCP) (NEGATIVE) Urine Amphetamine (NEGATIVE) U Benzodiazepine Level (NEGATIVE) Urine Cocaine (NEGATIVE) Urine Marijuana (THC) (NEGATIVE) Accuchecks Date 05/31/18 Accucheck Value: 239 Accucheck Value: 241 Accucheck Value: 140 - Radiology Impressions Radiology Exams & Impressions: Radiology Procedures Category Date Time Status OBSTR/ACUTE ABDOMEN SERIES Stat Exams 05/30/18 19:28 Completed Assessment/Plan (1) Vomiting Current Visit: Yes Status: Acute Qualifiers: Vomiting Intractability: intractable Nausea presence: with nausea Assessment & Plan: he has remained afebrile his initial abdominal xray sereis was negative. He has had multiple abdomen and pelvis CT in the past 1 year without significant abnormalities. He currently has a soft abdomen and no guarding or rebound and is afebrile. Will check the labs again if wbc worsening or fever or symptoms not improving will consider CT with and without rule out renal stone or possible pathology of the lumbar spine given his pain. He also had previously reported appendicolith but currently with the soft abdomen and afebrile and only symptom the nausea and vomiting will wait for CT and get if worsening or new symptom or fails to improve. we also discussed the possible adverse reaction to his marijuana use Repeat labs now including vbg Will give additional 1L bolus of LR continue fluids LR at 125 mL/h continue phenergan IV iv labetalol X1 for the htn now and monitor htn continue glargine 20 units daily and novolog 5 units ac + SSI coverage Code(s): R11.10 - VOMITING, UNSPECIFIED (2) Back pain Current Visit: Yes Status: Acute Qualifiers: Back pain location: low back pain Code(s): M54.9 - DORSALGIA, UNSPECIFIED (3) Illicit drug use Current Visit: Yes Status: Chronic Onset Date: ~03/12/18 Code(s): F19.90 - OTHER PSYCHOACTIVE SUBSTANCE USE, UNSPECIFIED, UNCOMPLICATED (4) Diabetes mellitus type I Current Visit: Yes Status: Chronic (5) Hypertension Current Visit: Yes Status: Chronic Onset Date: ~03/12/18 Qualifiers: Hypertension type: essential hypertension Qualified Code(s): I10 - Essential (primary) hypertension Code(s): I10 - ESSENTIAL (PRIMARY) HYPERTENSION
[2018-05-31 09:51] LABS: BASOPHIL % 0.2 % (0.0-0.4); Basophil (Absolute #) 0.03 (0-0.4); Eosinophil % 0.1 % (0.00-5.0); Eosinophil (Absolute #) 0.01 (0-0.5); Granulocyte Absolute (ANC) 10.47 (1.4-6.9); Granulocytes % 80.3 % (36.0-66.0); Hematocrit 34.8 % (42-50); Hemoglobin 12.4 gm/dl (12.5-18.0); Lymphocyte (Absolute #) 1.35 (1.0-4.6); Lymphocytes % 10.4 % (24.0-44.0); Mean Cell Volume 85.3 fl (78-100); Mean Corpuscular Hgb Concent. 35.6 g/dl (32-36); Mean Platelet Volume 8.3 fl (6-9.5); Monocyte (Absolute #) 1.18 (0.0-1.3); Platelet Count 338 K/mm3 (150-450); Red Blood Count 4.08 M/mm3 (4.1-5.6); Red Cell Distribution Width 11.8 % (11.5-14.0)
[2018-05-31 09:57] LABS: ALKALINE PHOSPHATASE 67 U/L (38-126); ANION GAP 18.4 MEQ/L (5-15); BLOOD UREA NITROGEN 16 mg/dL (9-20); CHLORIDE 100 mmol/L (98-107); Calcium 8.9 mg/dL (8.4-10.2); Carbon Dioxide 22 mmol/L (22-30); Creatinine 1 0.88 mg/dL (0.66-1.25); Glucose 241 mg/dL (74-106); Mean Corpuscular Hemoglobin 30.3 pg (26-32); Potassium 4.2 mmol/L (3.5-5.1); SGOT/AST 22 U/L (17-59); SGPT/ALT 15 U/L (0-50); SODIUM 136 mmol/L (137-145); Total Protein 6.6 g/dL (6.3-8.2)
[2018-05-31] MEDS ORDERED: NON-FORMULARY ITEM (Insulin Glargine,Hum.Rec.Anlog [Basaglar Kwikpen U-100] 20 UNIT) SQ SCH (10:00)
[2018-05-31] MEDS: Lantus Insulin SQ SCH (10:02)
[2018-05-31 10:05] LABS: VBG CARBOXYHEMOGLOBIN 2.8 % T HGB (0.0-6.9); VBG HCO3- 23.1 meq/L (22-28); VBG HEMOGLOBIN 12.3; VBG O2 SATURATION 90.7 (95-100); VBG POTASSIUM 3.9 (3.5-5.1); VBG pH 7.37 (7.32-7.42)
[2018-05-31] MEDS: Magnesium 1 Gm / 100 Ml D5W*** 100 ML IV SCH ×2 (10:53→13:43)
[2018-05-31] MEDS: NovoLOG Insulin SQ SCH ×2 (11:40→17:19)
--- NOTE | 2018-05-31 19:38 | XRAY ---
Indication: Hematuria, leukocytosis, and vomiting. Multiple contiguous axial images obtained through the abdomen and pelvis prior to and following 80 cc Isovue 370 contrast only. Comparison: March 12, 2018. Lung bases remain clear. Heart is not enlarged. Stable small hiatal hernia. Noncontrasted images negative for pathologic visceral calcifications/calculi. Noncontrasted stomach and bowel loops appear nonobstructed. Normal appendix. There is now mild diffuse scattered colonic fecal debris. No free fluid/air. Postcontrast images demonstrate normal visceral enhancement and renal excretion. Remaining liver, gallbladder, pancreas, spleen, adrenal glands, kidneys, ureters, bladder, and aorta again appear unremarkable. No pathologic retroperitoneal lymphadenopathy. Osseous structures intact again with bilateral L5 spondylolysis without spondylolisthesis. Impression: 1. Negative pathologic visceral calcifications/calculi. 2. New fecal stasis without obstruction. 3. Stable small hiatal hernia and bilateral L5 spondylolysis without spondylolisthesis. 4. Remaining CT abdomen/pelvis with and without contrast exam negative. Comment: Preliminary interpretation was made by [facility]. No critical discrepancy. CTDI 14.35
[2018-06-01 04:02] VITALS: O2SAT 97
[2018-06-01] MEDS: MORPHINE SULFATE 2 MG INJ IV PRN (04:02)
[2018-06-01] MEDS ORDERED: TYLENOL 325 MG PO PRN (06:45)
[2018-06-01] MEDS: Phenergan 25 MG INJ IV PRN (06:56)
[2018-06-01] MEDS ORDERED: MORPHINE SULFATE 4 MG INJ IV ONE (07:07)
[2018-06-01] MEDS ORDERED: MORPHINE SULFATE 4 MG INJ IV PRN (07:08)
[2018-06-01 07:27] VITALS: BP 132/68; PULSE 70
[2018-06-01] MEDS: Lactated Ringers 1,000 ML IV SCH (09:00)
[2018-06-01] MEDS: NovoLOG Insulin SQ SCH (09:23)
[2018-06-01] MEDS: PROTONIX 40 MG IV IV SCH (09:24)
[2018-06-01] MEDS: Lantus Insulin SQ SCH (09:24)
--- NOTE | 2018-06-01 10:07 | PCM.DS ---
Discharge Summary Date of Admission: 05/30/18 21:30 Date of Discharge: 06/01/2018 Admitting Physician: VALENTINA ESPINO Primary Care Provider: VALENTINA ESPINO Allergies Allergies No Known Drug Allergies Allergy (Verified 04/03/18 21:22) Hospital Summary - Hospital Course Hospital Course: He presented with 3 days of intractable emesis assicated with low back pain. no injury. he was taking his insulin. no other sick contacts or ingestions. He does occassionally use marijuana for his pain but denies any new drug use. He was admitted for hydration and continued to have nonstop dry heaves and vomiting throughout the day on 05/31 and began to improve overnight. He had an additional vomiting episode on 06/01 at 0400 when his back was hurting but he had some pain medication and took a hot bath and was feeling better. He was able to eat biscuits and gravy and was found to be using chewing tobacco as well without vomiting. His ct of his abd/pelvis shows L5 bilateral spondylolysis uncomplicated and he has no neurological deficit. He does not recall any known injury it just began hurting spontaneously 1 week prior to admission. 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 We discussed relative rest for the next 90 days with no lifting over 10 lbs no bending stooping pushing or pulling but otherwise activity as tolerated. resume insulin and start nsaid with a ppi for the pain. We discussed abstaining from marijuana use with its potential to cause cannabis hyperemesis syndrome that is very similar to the symptoms he was having as well as options to quit chewing tobacco. - Vitals & Intake/Output Vital Signs: Vital Signs Temperature 98 F 06/01/18 07:25 Pulse Rate 70 06/01/18 07:25 Respiratory Rate 18 06/01/18 07:25 Blood Pressure 132/68 06/01/18 07:25 O2 Sat by Pulse Oximetry 97 06/01/18 07:25 Intake & Output: Intake & Output 05/29/18 05/30/18 05/31/18 06/01/18 11:59 11:59 11:59 11:59 Intake Total 1155 6404 Output Total 1530 2000 Balance 985 4404 Weight 71.6 kg - Lab Result Diagrams: 05/31/18 09:41 05/31/18 09:41 Lab Results-Last 24 Hrs: Accuchecks Date 06/01/18 Date 05/31/18 Date 05/31/18 Time 07:30 Time 18:00 Time 11:30 Accucheck Value: 101 Accucheck Value: 98 Accucheck Value: 91 Accucheck Value: 85 Accucheck Value: 121 Accucheck Value: 221 Lab Results-Last 24 Hours 05/31/18 05/31/18 06/01/18 Range/Units 09:29 09:41 06:50 pO2/FiO2 Ratio 21.0 % VBG pH 7.37 (7.32-7.42) VBG pCO2 at Pat Temp 40 L (42-55) mm/Hg VBG pO2 at Pat Temp 49 H (25-40) mm/Hg VBG HCO3 23.1 (22-28) meq/L VBG O2 Sat (Jalen) 90.7 L (95-100) VBG Base Excess -2.0 (-2.0-2.0) VBG Hemoglobin 12.3 VBG Carboxyhemoglobin 2.8 (0.0-6.9) % T HGB POC Potassium 3.9 (3.5-5.1) Sodium 136 L (137-145) mmol/L Potassium 4.2 (3.5-5.1) mmol/L Chloride 100 (98-107) mmol/L Carbon Dioxide 22 (22-30) mmol/L Anion Gap 18.4 H (5-15) MEQ/L BUN 16 (9-20) mg/dL Creatinine 0.88 (0.66-1.25) mg/dL Estimated GFR > 60.0 ML/MIN Glucose 241 H (74-106) mg/dL Calcium 8.9 (8.4-10.2) mg/dL Magnesium 1.5 L 1.8 (1.6-2.3) mg/dL Total Bilirubin 1.00 (0.2-1.3) mg/dL AST 22 (17-59) U/L ALT 15 (0-50) U/L Alkaline Phosphatase 67 (38-126) U/L Serum Total Protein 6.6 (6.3-8.2) g/dL Albumin 4.0 (3.5-5.0) g/dL Micro Results-Entire Visit: Microbiology 05/30/18 Unknown Urine Culture - Preliminary Urine, Void NO GROWTH TO DATE Accuchecks Date 06/01/18 Date 05/31/18 Date 05/31/18 Time 07:30 Time 18:00 Time 11:30 Accucheck Value: 101 Accucheck Value: 98 Accucheck Value: 91 Accucheck Value: 85 Accucheck Value: 121 Accucheck Value: 221 - Radiology Exams Ordered Rad Exams-Entire Visit: Radiology Procedures Category Date Time Status ABDOMEN AND PELVIS W&WO CONTRA [CT] Routine Exams 05/31/18 10:35 Completed OBSTR/ACUTE ABDOMEN SERIES Stat Exams 05/30/18 19:28 Completed Discharge Exam General Appearance: no apparent distress, alert Neurologic Exam: alert, oriented x 3, cooperative, normal mood/affect, nml cerebellar function, sensation nml, No motor deficits Skin Exam: normal color, warm, dry Eye Exam: PERRL, EOMI, eyes nml inspection Ears, Nose, Throat Exam: normal ENT inspection, pharynx normal, moist mucous membranes Neck Exam: normal inspection, non-tender, supple, full range of motion Respiratory Exam: normal breath sounds, lungs clear, No respiratory distress Cardiovascular Exam: regular rate/rhythm, normal heart sounds Gastrointestinal/Abdomen Exam: soft, No tenderness, No mass Extremity Exam: normal inspection, normal range of motion Back Exam: normal inspection, normal range of motion, No CVA tenderness, No vertebral tenderness Male Genitalia Exam: deferred Rectal Exam: deferred Final Diagnosis/Problem List - Final Discharge Diagnosis/Problem (1) Vomiting Current Visit: Yes Status: Acute Onset Date: ~05/30/18 (2) Back pain Current Visit: Yes Status: Acute Onset Date: ~05/30/18 (3) Illicit drug use Current Visit: Yes Status: Chronic Onset Date: ~05/30/18 (4) Diabetes mellitus type I Current Visit: Yes Status: Chronic Onset Date: ~05/30/18 (5) Hypertension Current Visit: Yes Status: Chronic Onset Date: ~05/30/18 (6) Spondylolysis of lumbar region Current Visit: Yes Status: Acute Assessment & Plan: L5 bilateral - Discharge Discharge Date: 06/01/18 Disposition: Home, Self-Care Condition: Stable Prescriptions: New Naproxen 500 mg [Naprosyn 500 MG] 500 mg PO BID #30 tablet PANTOPRAZOLE 40 mg Tablet [Protonix 40MG Tablet] 40 mg PO QAM #30 tab Continue Pen Needle, Diabetic [1St Tier Unifine Pentips] 1 each QID #100 dis.needle Insulin Glargine,Hum.rec.anlog [Basaglar Kwikpen U-100] 20 unit SQ DAILY #2 insuln.pen Insulin Aspart [NovoLOG Insulin] 5 unit SQ TIDAC #2 pens Promethazine HCl 25 mg [Phenergan 25 mg] 25 mg PO Q8H PRN PRN #6 tablet PRN Reason: Nausea/Vomiting Follow up with: VALENTINA ESPINO [Primary Care Provider] - 1 Week
[2018-06-01] MEDS ORDERED: Naprosyn 500 MG PO ONE (10:51)
== END 2018-06-01 11:44 | disposition home or self-care (01) ==
LOC: ED 18:53 → MED SURG 21:30
PROVIDERS: ADMIT Family Medicine; ATTEND Family Medicine
DX: R11.2 Nausea with vomiting, unspecified (principal); M54.9 Dorsalgia, unspecified; F19.90 Other psychoactive substance use, unspecified, uncomplicated; E10.8 Type 1 diabetes mellitus with unspecified complications; I10 Essential (primary) hypertension
CPT/HCPCS: 36000; 36415; 74022; 74178; 80053; 80307; 81001; 82150; 82805; 82962; 83605; 83690; 83735; 85025; 87086; 96360; 96361; 96374; 96375; 99285; G0378; J2270; J2405; J2550; J3475; Q9967; A9270-GY

== ENCOUNTER 2018-06-03 19:31 | Observation (INO) | payer OTHER ==
--- NOTE | 2018-06-03 20:59 | ERPHSYRPT ---
- History of Present Illness Time Seen by Provider: 06/03/18 20:54 Historian: patient Exam Limitations: no limitations Patient Subjective Stated Complaint: c/o just released from hospital Triage Nursing Assessment: pt c/o severe abd pain 03/28, vomiting clear bile - yellow. drinking some water today but vomits it up. states has been nauseated and vomiting, d/c from [facility] medsurg on 05/30 Physician History: The patient is a 32-year-old male with type 1 diabetes who complains of continued vomiting and abdominal pain. He was in the hospital here at [facility] for the same complaint and was discharged on May 30, 2018. He has continued to vomit and have abdominal pain at home. He has not taken any antibiotics at home. His past medical history is significant for type 1 diabetes and his episodes of DKA. Timing/Duration: day(s) ("several") Activities at Onset: none Quality: aching Abdominal Pain Onset Location: generalized abdomen Pain Radiation: no radiation Severity of Pain-Max: moderate Severity of Pain-Current: moderate Modifying Factors: Improves With: vomiting Associated Symptoms: loss of appetite, nausea, vomiting Previous symptoms: same symptoms as today, recently seen, recent hospitalization , recently treated Allergies/Adverse Reactions: No Known Drug Allergies Allergy (Verified 04/03/18 21:22) Hx Tetanus, Diphtheria Vaccination/Date Given: Yes Hx Influenza Vaccination/Date Given: No Hx Pneumococcal Vaccination/Date Given: No Immunizations Up to Date: Yes - Review of Systems Constitutional: No Fever, No Chills Eyes: No Symptoms Ears, Nose, & Throat: No Symptoms Respiratory: No Symptoms Cardiac: No Chest Pain, No Edema, No Syncope Abdominal/Gastrointestinal: Abdominal Pain, Nausea, Vomiting, No Diarrhea Genitourinary Symptoms: No Dysuria Musculoskeletal: No Back Pain, No Neck Pain Skin: No Rash Neurological: No Dizziness, No Focal Weakness, No Sensory Changes Psychological: No Symptoms Endocrine: No Symptoms Hematologic/Lymphatic: No Symptoms Immunological/Allergic: No Symptoms All Other Systems: Reviewed and Negative - Past Medical History Pertinent Past Medical History: Yes Neurological History: No Pertinent History ENT History: No Pertinent History Cardiac History: No Pertinent History Respiratory History: No Pertinent History Endocrine Medical History: Diabetes Type I Musculoskeletal History: No Pertinent History GI Medical History: No Pertinent History History: No Pertinent History Psycho-Social History: Anxiety, Depression Male Reproductive Disorders: No Pertinent History Other Medical History: DKA - Past Surgical History Past Surgical History: No Neuro Surgical History: No Pertinent History Cardiac: No Pertinent History Respiratory: No Pertinent History Gastrointestinal: No Pertinent History Genitourinary: No Pertinent History Musculoskeletal: No Pertinent History Male Surgical History: No Pertinent History Other Surgical History: PT SHAKES HEAD "NO" WHEN ASKED IF HE HAS EVER HAD SURGERY - Social History Smoking Status: Never smoker Exposure to second hand smoke: Yes Drug Use: marijuana Patient Lives Alone: No - Nursing Vital Signs Nursing Vital Signs: Initial Vital Signs Temperature 97.8 F 06/03/18 19:31 Pain Scale Pain Intensity 8 - Physical Exam General Appearance: moderate distress, thin Eye Exam: PERRL/EOMI, eyes nml inspection Ears, Nose, Throat Exam: dry mucous membranes Neck Exam: normal inspection, non-tender, supple, full range of motion Respiratory Exam: normal breath sounds, lungs clear, No respiratory distress Cardiovascular Exam: regular rate/rhythm, normal heart sounds Gastrointestinal/Abdomen Exam: tenderness (generalized) Rectal Exam: not done Back Exam: normal inspection, normal range of motion, No CVA tenderness, No vertebral tenderness Extremity Exam: normal inspection, normal range of motion, pelvis stable Neurologic Exam: alert, oriented x 3, cooperative, normal mood/affect, nml cerebellar function, sensation nml, No motor deficits Skin Exam: normal color, warm, dry SpO2 Interpretation: normal Oxygen Delivery: Room Air - CT Exams Abdomen/Pelvis CT Interpretation: Negative, Tele-radiologist Report (per Dr Estes) Ordered Tests: Active Orders 24 hr Category Date Time Status ACCUCHECK [Accucheck] STAT Care 06/03/18 21:04 Active Clean Catch Urine Specimen STAT Care 06/03/18 21:02 Active IV Insertion STAT Care 06/03/18 21:02 Active IV Insertion STAT Care 06/03/18 21:04 Active ABDOMEN AND PELVIS W/0 CONTRAS [CT] Stat Exams 06/03/18 21:03 Taken CBC W DIFF Stat Lab 06/03/18 21:00 Completed CMP Stat Lab 06/03/18 21:00 Completed LIPASE Stat Lab 06/03/18 21:00 Completed Lactic Acid Stat Lab 06/03/18 22:40 Completed UA W/RFX UR CULTURE Stat Lab 06/03/18 21:02 Ordered Medication Summary Discontinued Medications Generic Name Dose Route Start Last Admin Trade Name Freq PRN Reason Stop Dose Admin Sodium Chloride 1,000 mls @ 999 mls/hr 06/03/18 21:02 06/03/18 21:11 Sodium Chloride 0.9% 1000 Ml IV 06/03/18 22:02 999 mls/hr .Q1H1M STA Administration Sodium Chloride Confirm 06/03/18 21:06 Sodium Chloride 0.9% 1000 Ml Administered 06/03/18 21:07 Dose 1,000 mls @ ud .ROUTE .STK-MED ONE Sodium Chloride 1,000 mls @ 999 mls/hr 06/03/18 21:08 06/03/18 21:58 Sodium Chloride 0.9% 1000 Ml IV 06/03/18 22:08 999 mls/hr .Q1H1M STA Administration Sodium Chloride Confirm 06/03/18 21:55 Sodium Chloride 0.9% 1000 Ml Administered 06/03/18 21:56 Dose 1,000 mls @ ud .ROUTE .STK-MED ONE Ondansetron HCl 4 mg 06/03/18 21:02 06/03/18 21:10 Zofran 4 Mg/2 Ml Vial IV 06/03/18 21:03 4 mg STAT ONE Administration Ondansetron HCl Confirm 06/03/18 21:01 Zofran 4 Mg/2 Ml Vial Administered 06/03/18 21:02 Dose 4 mg .ROUTE .STK-MED ONE Promethazine HCl 25 mg 06/03/18 21:02 06/03/18 21:11 Phenergan 25 Mg Inj IV 06/03/18 21:03 25 mg STAT ONE Administration Promethazine HCl Confirm 06/03/18 21:06 Phenergan 25 Mg Inj Administered 06/03/18 21:07 Dose 25 mg .ROUTE .STK-MED ONE Lab/Rad Data: Laboratory Result Diagrams 06/03/18 21:00 06/03/18 21:00 Laboratory Results 06/03/18 06/03/18 06/03/18 Range/Units 22:40 21:00 21:00 WBC 10.1 (4.0-10.5) K/mm3 RBC 4.65 (4.1-5.6) M/mm3 Hgb 13.9 (12.5-18.0) gm/dl Hct 38.8 L (42-50) % MCV 83.4 (78-100) fl MCH 29.9 (26-32) pg MCHC 35.8 (32-36) g/dl RDW 11.8 (11.5-14.0) % Plt Count 405 (150-450) K/mm3 MPV 9.4 (6-9.5) fl Gran % 89.7 H (36.0-66.0) % Eos # (Auto) 0.03 (0-0.5) Absolute Lymphs (auto) 0.67 L (1.0-4.6) Absolute Monos (auto) 0.32 (0.0-1.3) Lymphocytes % 6.6 L (24.0-44.0) % Monocytes % 3.2 (0.0-12.0) % Eosinophils % 0.3 (0.00-5.0) % Basophils % 0.2 (0.0-0.4) % Absolute Granulocytes 9.06 H (1.4-6.9) Basophils # 0.02 (0-0.4) Sodium 138 (137-145) mmol/L Potassium 3.7 (3.5-5.1) mmol/L Chloride 97 L (98-107) mmol/L Carbon Dioxide 25 (22-30) mmol/L Anion Gap 19.3 H (5-15) MEQ/L BUN 20 (9-20) mg/dL Creatinine 0.74 (0.66-1.25) mg/dL Estimated GFR > 60.0 ML/MIN Glucose 240 H (74-106) mg/dL Lactic Acid 1.8 (0.4-2.0) Calcium 10.1 (8.4-10.2) mg/dL Total Bilirubin 0.90 (0.2-1.3) mg/dL AST 24 (17-59) U/L ALT 17 (0-50) U/L Alkaline Phosphatase 95 (38-126) U/L Serum Total Protein 8.2 (6.3-8.2) g/dL Albumin 5.1 H (3.5-5.0) g/dL Lipase < 10 L (23-300) U/L - Progress Progress: improved Discussed with : Stacie Will see patient in: hospital (observation) Counseled pt/family regarding: lab results, diagnosis, rad results - Departure Time of Disposition: 22:58 Departure Disposition: Observation (per Dr Quinones) Clinical Impression: Vomiting, Diffuse abdominal pain Condition: Stable Critical Care Time: No Referrals: VALENTINA QUINONES [Primary Care Provider] -
[2018-06-03] MEDS ORDERED: Zofran 4 MG/2 ML VIAL ONE (21:01)
[2018-06-03] MEDS ORDERED: Zofran 4 MG/2 ML VIAL IV ONE (21:02)
[2018-06-03] MEDS ORDERED: Sodium Chloride 0.9% 1000 ML 1,000 ML IV STA ×2 (21:02→21:08)
[2018-06-03] MEDS ORDERED: Phenergan 25 MG INJ IV ONE (21:02)
[2018-06-03] MEDS ORDERED: Phenergan 25 MG INJ ONE (21:06)
[2018-06-03] MEDS ORDERED: Sodium Chloride 0.9% 1000 ML 1,000 ML ONE ×2 (21:06→21:55)
[2018-06-03 21:20] LABS: BASOPHIL % 0.2 % (0.0-0.4); Basophil (Absolute #) 0.02 (0-0.4); Eosinophil % 0.3 % (0.00-5.0); Eosinophil (Absolute #) 0.03 (0-0.5); Granulocyte Absolute (ANC) 9.06 (1.4-6.9); Granulocytes % 89.7 % (36.0-66.0); Hematocrit 38.8 % (42-50); Hemoglobin 13.9 gm/dl (12.5-18.0); Lymphocyte (Absolute #) 0.67 (1.0-4.6); Lymphocytes % 6.6 % (24.0-44.0); Mean Cell Volume 83.4 fl (78-100); Mean Corpuscular Hemoglobin 29.9 pg (26-32); Mean Corpuscular Hgb Concent. 35.8 g/dl (32-36); Mean Platelet Volume 9.4 fl (6-9.5); Monocyte (Absolute #) 0.32 (0.0-1.3); Monocytes % 3.2 % (0.0-12.0); Platelet Count 405 K/mm3 (150-450); Red Blood Count 4.65 M/mm3 (4.1-5.6); Red Cell Distribution Width 11.8 % (11.5-14.0); White Blood Count 10.1 K/mm3 (4.0-10.5)
[2018-06-03 21:30] LABS: ALBUMIN 5.1 g/dL (3.5-5.0); ALKALINE PHOSPHATASE 95 U/L (38-126); ANION GAP 19.3 MEQ/L (5-15); BLOOD UREA NITROGEN 20 mg/dL (9-20); CHLORIDE 97 mmol/L (98-107); Calcium 10.1 mg/dL (8.4-10.2); Carbon Dioxide 25 mmol/L (22-30); Creatinine 1 0.74 mg/dL (0.66-1.25); Glucose 240 mg/dL (74-106); LIPASE < 10 U/L (23-300); Potassium 3.7 mmol/L (3.5-5.1); SGOT/AST 24 U/L (17-59); SGPT/ALT 17 U/L (0-50); SODIUM 138 mmol/L (137-145); Total Protein 8.2 g/dL (6.3-8.2)
[2018-06-03 23:08] LABS: Appearance CLEAR (CLEAR); Bilirubin NEGATIVE (NEGATIVE); Blood NEGATIVE Ery/ul (0-5); Ketones MODERATE (NEGATIVE); Leukocyte Esterase NEGATIVE (NEGATIVE); Nitrite NEGATIVE (NEGATIVE); Protein,Urine Dip >=500 (Negative); Specific Gravity 1.029 (1.005-1.025); Urobilinogen NEGATIVE mg/dL (0-1)
[2018-06-03 23:32] LABS: Amphetamine,Urine NEGATIVE (NEGATIVE); Barbiturate,Urine NEGATIVE (NEGATIVE); Benzodiazepine,Urine NEGATIVE (NEGATIVE); Cocaine,Urine NEGATIVE (NEGATIVE); Methadone,Urine NEGATIVE (NEGATIVE); Opiate,Urine POSITIVE (NEGATIVE); PCP,Urine NEGATIVE (NEGATIVE); THC,Urine POSITIVE (NEGATIVE)
[2018-06-03 23:33] LABS: Glucose 100 mg/dL (NEGATIVE)
[2018-06-04] MEDS ORDERED: Ketamine HCl 50 MG/ML IV ONE (00:33)
[2018-06-04] MEDS ORDERED: Zofran 4 MG/2 ML VIAL IV PRN (00:35)
[2018-06-04] MEDS: Sodium Chloride 0.9% 1000 ML 1,000 ML IV SCH ×3 (00:51→17:33)
[2018-06-04] MEDS: Phenergan 25 MG INJ IV PRN ×4 (03:43→22:10)
[2018-06-04 06:20] LABS: BASOPHIL % 0.2 % (0.0-0.4); Basophil (Absolute #) 0.02 (0-0.4); Eosinophil (Absolute #) 0 (0-0.5); Granulocyte Absolute (ANC) 10.82 (1.4-6.9); Granulocytes % 88.2 % (36.0-66.0); Hematocrit 37.1 % (42-50); Hemoglobin 13.1 gm/dl (12.5-18.0); Lymphocyte (Absolute #) 0.82 (1.0-4.6); Lymphocytes % 6.7 % (24.0-44.0); Mean Cell Volume 85.1 fl (78-100); Mean Corpuscular Hgb Concent. 35.3 g/dl (32-36); Monocytes % 4.9 % (0.0-12.0); Platelet Count 381 K/mm3 (150-450); Red Blood Count 4.36 M/mm3 (4.1-5.6); Red Cell Distribution Width 11.9 % (11.5-14.0); White Blood Count 12.3 K/mm3 (4.0-10.5)
[2018-06-04 06:35] LABS: ANION GAP 23.3 MEQ/L (5-15); BLOOD UREA NITROGEN 18 mg/dL (9-20); CHLORIDE 96 mmol/L (98-107); Carbon Dioxide 19 mmol/L (22-30); Glucose 358 mg/dL (74-106); Potassium 4.2 mmol/L (3.5-5.1); SODIUM 135 mmol/L (137-145)
[2018-06-04] MEDS ORDERED: TRANDATE 20 MG/5 ML SYRINGE IV ONE (06:48)
[2018-06-04] MEDS: NovoLOG Insulin SQ PRN ×4 (07:56→22:08)
--- NOTE | 2018-06-04 08:44 | PCM.HP ---
History of Present Illness - Chief Complaint Chief Complaint: vomiting History of Present Illness: is a 32 year old male with DMI, supposed to see me in clinic but noncompliant, who came to ER last night with vomiting. His BS was 240 and lactate was 1.8. He has been given phenergan and zofran IV, alternating, but continues to vomit. He was in over the weekend with similar complaints and was also in the ER last week and sent home after receiving fluids. He has vomiting episodes periodically and usually takes several days in the hospital to recover. Several times this has been after methamphetamine use; he denies that this time (with neg UDS - pt is generally forthcoming about his drug use). He does admit to THC use (supported by + UDS) but denies excessive use. He is also + for opiates. He is also c/o generalized abd pain, 5.5-6/10. Last weekend he had a CT abd/pelvis due to his hematuria and abd pain; neg aside from constipation. He notes it has been several days since his last BM. Last EGD in [address] Jiang; bx + for gastritis, neg for H. pylori. He is a difficult historian as he is nauseated and answers questions with nods and a few words at most. - Review of Systems Constitutional: No Fever Ears, Nose, & Throat: No Ear Pain Abdominal/Gastrointestinal: Abdominal Pain, Nausea, Vomiting, Constipation Genitourinary Symptoms: Hematuria (microscopic) Musculoskeletal: Arthralgias Neurological: Other (no syncope) Psychological: No Suicidal Ideations All Other Systems: Reviewed and Negative Medications & Allergies Home Medications: Home Medication List Insulin Aspart [NovoLOG Insulin] 5 unit SQ TIDAC #2 pens 04/05/18 [Rx Confirmed 06/03/18] Insulin Glargine,Hum.rec.anlog [Basaglar Kwikpen U-100] 20 unit SQ DAILY #2 insuln.pen 04/05/18 [Rx Confirmed 06/03/18] Pen Needle, Diabetic [1St Tier Unifine Pentips] 1 each MC QID #100 dis.needle [Rx Confirmed 06/03/18] Promethazine HCl 25 mg [Phenergan 25 mg] 25 mg PO Q8H PRN PRN #6 tablet [Rx Confirmed 06/03/18] Naproxen 500 mg [Naprosyn 500 MG] 500 mg PO BID #30 tablet 06/01/18 [Rx Confirmed 06/03/18] PANTOPRAZOLE 40 mg Tablet [Protonix 40MG Tablet] 40 mg PO QAM #30 tab [Rx Confirmed 06/03/18] Allergies/Adverse Reactions: Allergies Allergy/AdvReac Type Severity Reaction Status Date / Time No Known Drug Allergies Allergy Verified 04/03/18 21:22 - Past Medical History Past Medical History: Yes Neurological History: No Pertinent History ENT History: No Pertinent History Cardiac History: No Pertinent History Respiratory History: No Pertinent History Endocrine Medical History: Diabetes Type I Musculoskelatal History: No Pertinent History GI Medical History: No Pertinent History History: No Pertinent History Pyscho-Social History: Anxiety, Depression Male Reproductive Disorders: No Pertinent History Comment: DKA. pt not answering questions well. has eyes closed. recalled from previous admission - Past Surgical History Past Surgical History: No Neuro Surgical History: No Pertinent History Cardiac History: No Pertinent History Respiratory Surgery: No Pertinent History GI Surgical History: No Pertinent History Genitourinary Surgical Hx: No Pertinent History Musculskeletal Surgical Hx: No Pertinent History Male Surgical History: No Pertinent History Other Surgical History: pt not answering questions well. has eyes closed. recalled from previous admission - Social History Smoking Status: Never smoker Exposure to second hand smoke: Yes Alcohol: None Drug Use: marijuana - Physical Exam Vital Signs: Vital Signs - 24 hr Temp Pulse Resp BP Pulse Ox 06/04/18 08:18 103 H 163/91 06/04/18 07:22 125 H 22 189/100 06/04/18 04:07 97.9 F 116 H 19 170/96 96 06/04/18 00:35 97.8 F 102 H 100 06/04/18 00:34 98.7 F 106 H 20 172/98 97 06/03/18 23:54 102 H 158/101 100 06/03/18 20:21 97.8 F 115 H 20 181/116 06/03/18 19:31 97.8 F General Appearance: moderate distress, alert, other (dry heaving through much of exam) Neurologic Exam: cooperative, other (moves extremities equally) Ears, Nose, Throat Exam: dry mucous membranes Neck Exam: normal inspection, non-tender, No lymphadenopathy Respiratory Exam: normal breath sounds, lungs clear, No crackles/rales, No rhonchi, No wheezing Cardiovascular Exam: regular rate/rhythm, normal heart sounds, No murmur Gastrointestinal/Abdomen Exam: soft, tenderness (generalized), No normal bowel sounds (hypoactive, but present), No distention, No mass, No guarding, No rebound Back Exam: normal inspection, No rash Extremity Exam: normal inspection Skin Exam: normal color, warm, dry, No rash Results - Labs Lab/Micro Results: Accuchecks Date 06/04/18 Time 05:00 Accucheck Value: 358 Accucheck Value: 246 Lab Results-Last 24 Hours 06/03/18 06/03/18 06/03/18 Range/Units 21:00 21:00 22:40 WBC 10.1 (4.0-10.5) K/mm3 RBC 4.65 (4.1-5.6) M/mm3 Hgb 13.9 (12.5-18.0) gm/dl Hct 38.8 L (42-50) % MCV 83.4 (78-100) fl MCH 29.9 (26-32) pg MCHC 35.8 (32-36) g/dl RDW 11.8 (11.5-14.0) % Plt Count 405 (150-450) K/mm3 MPV 9.4 (6-9.5) fl Gran % 89.7 H (36.0-66.0) % Eos # (Auto) 0.03 (0-0.5) Absolute Lymphs (auto) 0.67 L (1.0-4.6) Absolute Monos (auto) 0.32 (0.0-1.3) Lymphocytes % 6.6 L (24.0-44.0) % Monocytes % 3.2 (0.0-12.0) % Eosinophils % 0.3 (0.00-5.0) % Basophils % 0.2 (0.0-0.4) % Absolute Granulocytes 9.06 H (1.4-6.9) Basophils # 0.02 (0-0.4) Sodium 138 (137-145) mmol/L Potassium 3.7 (3.5-5.1) mmol/L Chloride 97 L (98-107) mmol/L Carbon Dioxide 25 (22-30) mmol/L Anion Gap 19.3 H (5-15) MEQ/L BUN 20 (9-20) mg/dL Creatinine 0.74 (0.66-1.25) mg/dL Estimated GFR > 60.0 ML/MIN Glucose 240 H (74-106) mg/dL Lactic Acid 1.8 (0.4-2.0) Calcium 10.1 (8.4-10.2) mg/dL Total Bilirubin 0.90 (0.2-1.3) mg/dL AST 24 (17-59) U/L ALT 17 (0-50) U/L Alkaline Phosphatase 95 (38-126) U/L Serum Total Protein 8.2 (6.3-8.2) g/dL Albumin 5.1 H (3.5-5.0) g/dL Lipase < 10 L (23-300) U/L Urine Color (YELLOW) Urine Appearance (CLEAR) Urine pH (5-6) Ur Specific Kelliher (1.005-1.025) Urine Protein (Negative) Urine Ketones (NEGATIVE) Urine Blood (0-5) Tomas/ul Urine Nitrite (NEGATIVE) Urine Bilirubin (NEGATIVE) Urine Urobilinogen (0-1) mg/dL Ur Leukocyte Esterase (NEGATIVE) Urine WBC (Auto) (0-5) /HPF Urine RBC (Auto) (0-2) /HPF U Epithel Cells (Auto) (FEW) /HPF Urine Bacteria (Auto) (NEGATIVE) /HPF Urine Mucus (Auto) (NEGATIVE) /HPF Urine Culture Reflexed (NO) Urine Glucose (NEGATIVE) mg/dL Urine Opiates Level (NEGATIVE) Ur Methadone (NEGATIVE) Urine Barbiturates (NEGATIVE) Ur Phencyclidine (PCP) (NEGATIVE) Urine Amphetamine (NEGATIVE) U Benzodiazepine Level (NEGATIVE) Urine Cocaine (NEGATIVE) Urine Marijuana (THC) (NEGATIVE) 06/03/18 06/03/18 06/04/18 Range/Units 23:00 23:20 05:20 WBC 12.3 H (4.0-10.5) K/mm3 RBC 4.36 (4.1-5.6) M/mm3 Hgb 13.1 (12.5-18.0) gm/dl Hct 37.1 L (42-50) % MCV 85.1 (78-100) fl MCH 30.0 (26-32) pg MCHC 35.3 (32-36) g/dl RDW 11.9 (11.5-14.0) % Plt Count 381 (150-450) K/mm3 MPV 9.0 (6-9.5) fl Gran % 88.2 H (36.0-66.0) % Eos # (Auto) 0 (0-0.5) Absolute Lymphs (auto) 0.82 L (1.0-4.6) Absolute Monos (auto) 0.60 (0.0-1.3) Lymphocytes % 6.7 L (24.0-44.0) % Monocytes % 4.9 (0.0-12.0) % Eosinophils % 0.0 (0.00-5.0) % Basophils % 0.2 (0.0-0.4) % Absolute Granulocytes 10.82 H (1.4-6.9) Basophils # 0.02 (0-0.4) Sodium (137-145) mmol/L Potassium (3.5-5.1) mmol/L Chloride (98-107) mmol/L Carbon Dioxide (22-30) mmol/L Anion Gap (5-15) MEQ/L BUN (9-20) mg/dL Creatinine (0.66-1.25) mg/dL Estimated GFR ML/MIN Glucose (74-106) mg/dL Lactic Acid (0.4-2.0) Calcium (8.4-10.2) mg/dL Total Bilirubin (0.2-1.3) mg/dL AST (17-59) U/L ALT (0-50) U/L Alkaline Phosphatase (38-126) U/L Serum Total Protein (6.3-8.2) g/dL Albumin (3.5-5.0) g/dL Lipase (23-300) U/L Urine Color YELLOW (YELLOW) Urine Appearance CLEAR (CLEAR) Urine pH 8.0 (5-6) Ur Specific Kelliher 1.029 (1.005-1.025) Urine Protein >=500 (Negative) Urine Ketones MODERATE (NEGATIVE) Urine Blood NEGATIVE (0-5) Tomas/ul Urine Nitrite NEGATIVE (NEGATIVE) Urine Bilirubin NEGATIVE (NEGATIVE) Urine Urobilinogen NEGATIVE (0-1) mg/dL Ur Leukocyte Esterase NEGATIVE (NEGATIVE) Urine WBC (Auto) 3-5 (0-5) /HPF Urine RBC (Auto) 26-50 (0-2) /HPF U Epithel Cells (Auto) NONE SEEN (FEW) /HPF Urine Bacteria (Auto) RARE (NEGATIVE) /HPF Urine Mucus (Auto) SLIGHT (NEGATIVE) /HPF Urine Culture Reflexed NO (NO) Urine Glucose 100 (NEGATIVE) mg/dL Urine Opiates Level POSITIVE (NEGATIVE) Ur Methadone NEGATIVE (NEGATIVE) Urine Barbiturates NEGATIVE (NEGATIVE) Ur Phencyclidine (PCP) NEGATIVE (NEGATIVE) Urine Amphetamine NEGATIVE (NEGATIVE) U Benzodiazepine Level NEGATIVE (NEGATIVE) Urine Cocaine NEGATIVE (NEGATIVE) Urine Marijuana (THC) POSITIVE (NEGATIVE) 06/04/18 Range/Units 05:20 WBC (4.0-10.5) K/mm3 RBC (4.1-5.6) M/mm3 Hgb (12.5-18.0) gm/dl Hct (42-50) % MCV (78-100) fl MCH (26-32) pg MCHC (32-36) g/dl RDW (11.5-14.0) % Plt Count (150-450) K/mm3 MPV (6-9.5) fl Gran % (36.0-66.0) % Eos # (Auto) (0-0.5) Absolute Lymphs (auto) (1.0-4.6) Absolute Monos (auto) (0.0-1.3) Lymphocytes % (24.0-44.0) % Monocytes % (0.0-12.0) % Eosinophils % (0.00-5.0) % Basophils % (0.0-0.4) % Absolute Granulocytes (1.4-6.9) Basophils # (0-0.4) Sodium 135 L (137-145) mmol/L Potassium 4.2 (3.5-5.1) mmol/L Chloride 96 L (98-107) mmol/L Carbon Dioxide 19 L (22-30) mmol/L Anion Gap 23.3 H (5-15) MEQ/L BUN 18 (9-20) mg/dL Creatinine 0.80 (0.66-1.25) mg/dL Estimated GFR > 60.0 ML/MIN Glucose 358 H (74-106) mg/dL Lactic Acid (0.4-2.0) Calcium 9.0 (8.4-10.2) mg/dL Total Bilirubin (0.2-1.3) mg/dL AST (17-59) U/L ALT (0-50) U/L Alkaline Phosphatase (38-126) U/L Serum Total Protein (6.3-8.2) g/dL Albumin (3.5-5.0) g/dL Lipase (23-300) U/L Urine Color (YELLOW) Urine Appearance (CLEAR) Urine pH (5-6) Ur Specific Kelliher (1.005-1.025) Urine Protein (Negative) Urine Ketones (NEGATIVE) Urine Blood (0-5) Tomas/ul Urine Nitrite (NEGATIVE) Urine Bilirubin (NEGATIVE) Urine Urobilinogen (0-1) mg/dL Ur Leukocyte Esterase (NEGATIVE) Urine WBC (Auto) (0-5) /HPF Urine RBC (Auto) (0-2) /HPF U Epithel Cells (Auto) (FEW) /HPF Urine Bacteria (Auto) (NEGATIVE) /HPF Urine Mucus (Auto) (NEGATIVE) /HPF Urine Culture Reflexed (NO) Urine Glucose (NEGATIVE) mg/dL Urine Opiates Level (NEGATIVE) Ur Methadone (NEGATIVE) Urine Barbiturates (NEGATIVE) Ur Phencyclidine (PCP) (NEGATIVE) Urine Amphetamine (NEGATIVE) U Benzodiazepine Level (NEGATIVE) Urine Cocaine (NEGATIVE) Urine Marijuana (THC) (NEGATIVE) Accuchecks Date 06/04/18 Time 05:00 Accucheck Value: 358 Accucheck Value: 246 - Radiology Impressions Radiology Exams & Impressions: Radiology Procedures Category Date Time Status ABDOMEN AND PELVIS W/0 CONTRAS [CT] Stat Exams 06/03/18 21:03 Taken Assessment/Plan (1) Cyclic vomiting syndrome Current Visit: Yes Status: Acute Qualifiers: Vomiting Intractability: intractable Nausea presence: with nausea Qualified Code(s): G43.A1 - Cyclical vomiting, intractable Assessment & Plan: Unsure etiology; consider THC-related vomiting. Pt is on phenergan, zofran, and PPI. Considered reglan but it interacts with the phenergan. Considering repeat EGD. Did consider gastric emptying study as well. Will plan EGD for tomorrow morning with Dr. Jiang, if possible. With his hx gastritis I have d/ c'd his naproxen. (2) Constipation Current Visit: Yes Status: Acute Qualifiers: Constipation type: unspecified constipation type Qualified Code(s): K59.00 - Constipation, unspecified Assessment & Plan: when he begins taking po can begin to treat. Code(s): K59.00 - CONSTIPATION, UNSPECIFIED (3) Hematuria Current Visit: No Status: Acute Onset Date: ~05/30/18 Qualifiers: Hematuria type: asymptomatic microscopic Qualified Code(s): R31.21 - Asymptomatic microscopic hematuria Assessment & Plan: with neg CT recently, abd/pelvis. Code(s): R31.9 - HEMATURIA, UNSPECIFIED (4) Spondylolysis of lumbar region Current Visit: No Status: Acute Code(s): M43.06 - SPONDYLOLYSIS, LUMBAR REGION (5) Illicit drug use Current Visit: No Status: Chronic Onset Date: ~05/30/18 Assessment & Plan: denies excessive THC use. Code(s): F19.90 - OTHER PSYCHOACTIVE SUBSTANCE USE, UNSPECIFIED, UNCOMPLICATED (6) Uncontrolled diabetes mellitus Current Visit: No Status: Chronic Qualifiers: Diabetes mellitus type: type 1 Glycemic state: with hyperglycemia Qualified Code(s): E10.65 - Type 1 diabetes mellitus with hyperglycemia Assessment & Plan: BS 240, 358 here. Mod dose SS coverage. Code(s): E11.65 - TYPE 2 DIABETES MELLITUS WITH HYPERGLYCEMIA
[2018-06-04] MEDS ORDERED: Sodium Chloride 0.9% 1000 ML 1,000 ML IV STA (08:54)
--- NOTE | 2018-06-04 09:07 | XRAY ---
Indication: Abdomen pain, nausea, and vomiting. Multiple contiguous axial images obtained through the abdomen and pelvis without contrast as ordered. Comparison: May 31, 2018. Several images degraded by respiration artifact even with repeat CT. Lung bases grossly clear. Heart is not enlarged. Stable small hiatal hernia. Noncontrasted stomach and bowel loops again nonobstructed. Normal appendix. There remains mild diffuse scattered colonic fecal debris throughout including rectum. No free fluid/air. Remaining liver, gallbladder, pancreas, spleen, adrenal glands, kidneys, ureters, bladder, and aorta appear grossly unremarkable for noncontrast exam. Osseous structures intact again with bilateral L5 spondylolysis without spondylolisthesis. No ventral or inguinal hernias. Impression: 1. Respiration artifact. 2. Again fecal stasis without obstruction and small hiatal hernia. 3. No new or acute intra-abdominal/pelvic abnormalities on this noncontrast exam. 4. Again incidental bilateral L5 spondylolysis without spondylolisthesis. CT DI 13.47
[2018-06-04] MEDS: PROTONIX 40 MG IV IV SCH (09:59)
--- NOTE | 2018-06-04 10:29 | CONS ---
REASON FOR CONSULT: Persistent vomiting, abdominal pain. HISTORY: The patient is a 32 year-old white male patient with history of type 1 diabetes mellitus. He has been in and out of the hospital frequently with complaints of abdominal pain. He has been vomiting over the past several days now. He had been recently admitted to the hospital and discharged on 05/30/2018 but returned with continued vomiting of tea-colored material. The patient is difficult to evaluate as he will not make eye contact and answers with very short answers, this was also noted in Dr. Quinones's history as well. The patient currently will admit to epigastric pain but very little else. He has been unable to keep anything down. He was noted in his medical history that he apparently takes naproxen at home. PHYSICAL EXAMINATION: We find a 32 year-old white male patient who appears to be in moderate distress due to abdominal pain. Avoiding eye contact as described above. HEENT: Normocephalic, atraumatic. As best we can tell the oropharynx was slightly dry. NECK: Appears to be supple without lymphadenopathy. CHEST: Clear to auscultation. HEART: Regular rate and rhythm. No murmurs were heard. ABDOMEN: Scaphoid and no palpable masses were felt. There was no guarding or rebound present. He was mildly tender in the epigastric region. EXTREMITIES: Appear to be without clubbing, cyanosis or edema. NEUROLOGIC: Appeared to be alert and oriented x3 with no focal deficits that we could determine. LAB DATA AND TESTS: The patient's laboratory studies reveal a white blood cell count of 12,300, hemoglobin 13.1, PLT 381,000 with what appears to be a left shift with 88.2% granulocytes. His random blood sugar was 358, BUN 18, creatinine 0.8. Sodium 135, potassium 4.2. CO2 96. Anion gap was 23.3. His urine showed greater than 500 protein was otherwise 100 glucose and moderate ketones. He was positive for opiates and THC on his urine drug screen. His CT scan of the abdomen showed fecal stasis without obstruction, small hiatal hernia and no acute intra-abdominal abnormalities were noted on the noncontrast exam. PLAN: The patient's home medications with taking naproxen has been discontinued. The patient is in the hospital on IV Protonix, IV fluids, and rotating Zofran and Phenergan for nausea. The plan is for him to have EGD tomorrow morning for further evaluation and management of his overall problems.
[2018-06-04] MEDS: Zofran 4 MG/2 ML VIAL IV PRN (11:39)
[2018-06-04 13:30] LABS: ANION GAP 16.2 MEQ/L (5-15); BLOOD UREA NITROGEN 18 mg/dL (9-20); CHLORIDE 100 mmol/L (98-107); Calcium 8.3 mg/dL (8.4-10.2); Carbon Dioxide 23 mmol/L (22-30); Creatinine 1 0.74 mg/dL (0.66-1.25); Glucose 193 mg/dL (74-106); SODIUM 135 mmol/L (137-145)
[2018-06-05] MEDS: Sodium Chloride 0.9% 1000 ML 1,000 ML IV SCH ×3 (00:14→21:31)
[2018-06-05] MEDS: Phenergan 25 MG INJ IV PRN (04:15)
[2018-06-05 05:22] LABS: BASOPHIL % 0.2 % (0.0-0.4); Basophil (Absolute #) 0.02 (0-0.4); Eosinophil % 1.2 % (0.00-5.0); Eosinophil (Absolute #) 0.15 (0-0.5); Granulocyte Absolute (ANC) 9.67 (1.4-6.9); Granulocytes % 78.1 % (36.0-66.0); Hemoglobin 12.3 gm/dl (12.5-18.0); Lymphocyte (Absolute #) 1.43 (1.0-4.6); Lymphocytes % 11.5 % (24.0-44.0); Mean Cell Volume 85.6 fl (78-100); Mean Corpuscular Hgb Concent. 35.1 g/dl (32-36); Mean Platelet Volume 8.3 fl (6-9.5); Monocyte (Absolute #) 1.12 (0.0-1.3); Platelet Count 366 K/mm3 (150-450); Red Blood Count 4.09 M/mm3 (4.1-5.6); Red Cell Distribution Width 11.9 % (11.5-14.0); White Blood Count 12.4 K/mm3 (4.0-10.5)
[2018-06-05 05:45] LABS: ANION GAP 18.4 MEQ/L (5-15); BLOOD UREA NITROGEN 12 mg/dL (9-20); CHLORIDE 95 mmol/L (98-107); Calcium 8.7 mg/dL (8.4-10.2); Carbon Dioxide 24 mmol/L (22-30); Creatinine 1 0.72 mg/dL (0.66-1.25); Glucose 255 mg/dL (74-106); Potassium 4.1 mmol/L (3.5-5.1); SODIUM 133 mmol/L (137-145)
[2018-06-05] MEDS: Zofran 4 MG/2 ML VIAL IV PRN ×2 (07:11→21:14)
[2018-06-05] MEDS: NovoLOG Insulin SQ PRN ×4 (07:32→21:13)
[2018-06-05] MEDS: PROTONIX 40 MG IV IV SCH (07:32)
[2018-06-05] MEDS ORDERED: Lactated Ringers 1,000 ML IV SCH (08:30)
--- NOTE | 2018-06-05 08:59 | PCM.NOTE ---
Date and Time: 06/05/18 08 Subjective Assessment: Pt states he vomited "off and on" last night, unsure when his last liquids were but on EGD this morning Dr. Jiang found a stomach full of fluid. Gastritis and esophagitis. Pt placed on protonix drip and will d/c phenergan and start reglan instead. Pt is c/o quite a bit of generalized abd pain after his EGD now - unable to give me a number, just states, "it's rough." - Review of Systems Constitutional: No Fever Abdominal/Gastrointestinal: Abdominal Pain, Nausea, Vomiting Objective Exam General Appearance: moderate distress, alert Neurologic Exam: cooperative Skin Exam: normal color, warm, dry, No rash Ears, Nose, Throat Exam: moist mucous membranes Respiratory Exam: normal breath sounds, lungs clear, No crackles/rales, No rhonchi, No wheezing Cardiovascular Exam: regular rate/rhythm, normal heart sounds, No murmur Gastrointestinal/Abdomen Exam: soft, tenderness (generalized), No normal bowel sounds (hypoactive but present), No distention, No mass, No guarding, No rebound OBJECTIVE DATA Vital Signs: Vital Signs - 24 hr Temp Pulse Resp BP Pulse Ox 06/05/18 07:12 98 F 98 H 20 168/90 98 06/05/18 06:33 97.1 F 88 16 163/101 98 06/05/18 04:25 97.1 F 88 16 163/101 98 06/05/18 03:56 97.1 F 88 16 163/101 98 06/04/18 23:53 98.3 F 98 H 18 139/89 97 06/04/18 20:00 98.1 F 93 H 16 167/89 97 06/04/18 16:00 97.2 F 107 H 20 178/98 98 06/04/18 11:48 97.9 F 102 H 20 142/70 97 Pain Assessment - Last Documented Pain Intensity 0 Pain Scale Used 0-10 Pain Scale Intake and Output: Intake & Output 06/02/18 06/03/18 06/04/18 06/05/18 11:59 11:59 11:59 11:59 Intake Total 282 4462 Output Total 350 2350 Balance -68 2 Weight 70.5 kg 70.5 kg Lab Results: Accuchecks Date 06/05/18 Date 06/04/18 Date 06/04/18 Date 06/04/18 Time 05:00 Time 21:20 Time 16:30 Time 11:30 Accucheck Value: 234 Accucheck Value: 191 Accucheck Value: 239 Lab Results-Last 24 Hours 06/04/18 06/05/18 06/05/18 Range/Units 13:06 05:06 05:06 WBC 12.4 H (4.0-10.5) K/mm3 RBC 4.09 L (4.1-5.6) M/mm3 Hgb 12.3 L (12.5-18.0) gm/dl Hct 35.0 L (42-50) % MCV 85.6 (78-100) fl MCH 30.0 (26-32) pg MCHC 35.1 (32-36) g/dl RDW 11.9 (11.5-14.0) % Plt Count 366 (150-450) K/mm3 MPV 8.3 (6-9.5) fl Gran % 78.1 H (36.0-66.0) % Eos # (Auto) 0.15 (0-0.5) Absolute Lymphs (auto) 1.43 (1.0-4.6) Absolute Monos (auto) 1.12 (0.0-1.3) Lymphocytes % 11.5 L (24.0-44.0) % Monocytes % 9.0 (0.0-12.0) % Eosinophils % 1.2 (0.00-5.0) % Basophils % 0.2 (0.0-0.4) % Absolute Granulocytes 9.67 H (1.4-6.9) Basophils # 0.02 (0-0.4) Sodium 135 L 133 L (137-145) mmol/L Potassium 4.0 4.1 (3.5-5.1) mmol/L Chloride 100 95 L (98-107) mmol/L Carbon Dioxide 23 24 (22-30) mmol/L Anion Gap 16.2 H 18.4 H (5-15) MEQ/L BUN 18 12 (9-20) mg/dL Creatinine 0.74 0.72 (0.66-1.25) mg/dL Estimated GFR > 60.0 > 60.0 ML/MIN Glucose 193 H 255 H (74-106) mg/dL Calcium 8.3 L 8.7 (8.4-10.2) mg/dL Radiology Exams: Radiology Procedures Category Date Time Status ABDOMEN AND PELVIS W/0 CONTRAS [CT] Stat Exams 06/03/18 21:03 Completed Multi-Disciplinary Progress Notes: Multi-Disciplinary Progress Notes 06/04/18 10:01 Case Management Note by Alexa Bach PER DR. JIANG PLAN FOR EGD TOMORROW, 06/05/18, MORNING AROUND 0800. Initialized on 06/04/18 10:01 - END OF NOTE 06/04/18 09:50 (created 06/04/18 09:58) Case Management Note by Alexa Bach DR. ROUNDED AND EVALUATED PER MD ORDER FOR CONSULT FOR EGD. DR. JIANG EXAMINED PT AND EXPLAINED PROCEDURE. PT AGREEABLE, VERBALIZED UNDERSTANDING BY SAYING YES TO DR JIANG WHEN ASKED IF HE UNDERSTANDS. VOICED NO QUESTIONS FOR DR. JIANG. DENIES ADDNL NEEDS AT PRESENT. DID NOT REALLY MAKE EYE CONTACT WITH DR. JIANG DURING ASSESSMENT, BUT DID ANSWER ALL QUESTIONS WITH SHORT "YES", "NO" ANSWERS. Initialized on 06/04/18 09:58 - END OF NOTE Assessment/Plan (1) Esophagitis with gastritis Current Visit: Yes Status: Acute Assessment & Plan: on EGD with Dr. Jiang this morning, thank you. Stop phenergan, start reglan. start IV protonix drip. He will need to f/u with GI outpatient. However he has never even followed up with me outpatient as directed, so will have to discuss this more in depth when he is feeling better. Code(s): K29.70 - GASTRITIS, UNSPECIFIED, WITHOUT BLEEDING; K20.9 - ESOPHAGITIS , UNSPECIFIED (2) Cyclic vomiting syndrome Current Visit: Yes Status: Acute Qualifiers: Vomiting Intractability: intractable Nausea presence: with nausea Qualified Code(s): G43.A1 - Cyclical vomiting, intractable Assessment & Plan: Would like pt to f/u with GI outpatient - I did mention this this morning, will d/w pt more when he is feeling better. Pt indicates this morning that he is unsatisfied with his life - perhaps this will be the impetus to become more compliant with recommendations. (3) Constipation Current Visit: Yes Status: Acute Qualifiers: Constipation type: unspecified constipation type Qualified Code(s): K59.00 - Constipation, unspecified Code(s): K59.00 - CONSTIPATION, UNSPECIFIED (4) Hematuria Current Visit: No Status: Acute Onset Date: ~05/30/18 Qualifiers: Hematuria type: asymptomatic microscopic Qualified Code(s): R31.21 - Asymptomatic microscopic hematuria Code(s): R31.9 - HEMATURIA, UNSPECIFIED (5) Spondylolysis of lumbar region Current Visit: No Status: Acute Code(s): M43.06 - SPONDYLOLYSIS, LUMBAR REGION (6) Illicit drug use Current Visit: No Status: Chronic Onset Date: ~05/30/18 Code(s): F19.90 - OTHER PSYCHOACTIVE SUBSTANCE USE, UNSPECIFIED, UNCOMPLICATED (7) Uncontrolled diabetes mellitus Current Visit: No Status: Chronic Qualifiers: Diabetes mellitus type: type 1 Glycemic state: with hyperglycemia Qualified Code(s): E10.65 - Type 1 diabetes mellitus with hyperglycemia Code(s): E11.65 - TYPE 2 DIABETES MELLITUS WITH HYPERGLYCEMIA
[2018-06-05] MEDS: MORPHINE SULFATE 10 MG/ML IV PRN ×3 (09:02→21:14)
[2018-06-05] MEDS: PROTONIX 40 MG IV*** 80 MG in Sodium Chloride 0.9% 500 ML 500 ML IV SCH ×2 (09:06→18:08)
--- NOTE | 2018-06-05 09:32 | OP ---
SURGERY DATE/TIME: 06/05/2018 0756 PREOPERATIVE DIAGNOSIS: Persistent vomiting, epigastric pain. POSTOPERATIVE DIAGNOSIS: Grade II esophagitis and gastritis. PROCEDURE: Esophagogastroduodenoscopy with cold biopsy technique. SURGEON: Dr. Jiang. ANESTHESIA: Medications were given by the anesthesia department. BRIEF HISTORY: The patient is a 32 year-old white male patient who has been hospitalized for persistent vomiting and epigastric pain. He has been in and out of the hospital for this problem. The patient is a type 1 diabetic. He noted on his medicine list that he has been taking naproxen on a regular basis at 500 mg. The patient is felt to need to have endoscopic evaluation. He was appraised of the procedure including risk of perforation, phlebitis, untoward reaction to medication, bleeding and missed lesions. The patient verbalized his understanding and desired to have the procedure performed. DESCRIPTION OF PROCEDURE: The patient was given the medications by the anesthesia department. He had continuous pulse oximetry, ECG monitoring, intermittent blood pressure monitoring and tidal CO2 monitoring during the examination. He was placed in the left lateral decubitus position. A bite block was placed. The flexible Olympus gastroscope was used to intubate the oropharynx. A view of the larynx was obtained and was normal. The scope was easily introduced in the esophagus where there was noted to be grade II reflux esophagitis. The stomach was entered where normal gastric rugal folds were seen. These distended nicely with insufflation of air. The scope reached opaque fluid in the stomach and this was suctioned dry and the stomach was re-insufflated. There was noted to be the appearance of NSAID-type gastropathy damage occurring throughout the stomach. The pylorus encountered and intubated. The duodenum inspected and found to be normal. The scope was withdrawn towards the stomach. Retroflex view of the lesser curvature, fundus and cardia regions of the stomach. No significant hiatal hernia was noted. Biopsies were obtained from the gastric antrum to rule out the presence of Helicobacter pylori-type organisms. The scope was then removed from the patient who tolerated the procedure well and was sent back to the hospital [facility] in good condition.
[2018-06-05] MEDS: Reglan 10 MG/2 ML IV SCH ×3 (11:08→21:13)
[2018-06-06] MEDS: Sodium Chloride 0.9% 1000 ML 1,000 ML IV SCH ×3 (04:20→16:59)
[2018-06-06] MEDS: PROTONIX 40 MG IV*** 80 MG in Sodium Chloride 0.9% 500 ML 500 ML IV SCH ×2 (04:20→16:59)
[2018-06-06 05:47] LABS: Hematocrit 34.3 % (42-50); Mean Cell Volume 86.4 fl (78-100); Mean Corpuscular Hemoglobin 30.2 pg (26-32); Platelet Count 265 K/mm3 (150-450); Red Blood Count 3.97 M/mm3 (4.1-5.6); Red Cell Distribution Width 11.9 % (11.5-14.0); White Blood Count 9.8 K/mm3 (4.0-10.5)
[2018-06-06 05:50] LABS: ANION GAP 13.1 MEQ/L (5-15); BLOOD UREA NITROGEN 13 mg/dL (9-20); CHLORIDE 98 mmol/L (98-107); Calcium 8.5 mg/dL (8.4-10.2); Carbon Dioxide 25 mmol/L (22-30); Creatinine 1 0.69 mg/dL (0.66-1.25); Glucose 179 mg/dL (74-106); Potassium 3.6 mmol/L (3.5-5.1); SODIUM 132 mmol/L (137-145)
[2018-06-06] MEDS: NovoLOG Insulin SQ PRN ×4 (07:54→21:53)
[2018-06-06] MEDS: MORPHINE SULFATE 10 MG/ML IV PRN (07:54)
[2018-06-06] MEDS: Zofran 4 MG/2 ML VIAL IV PRN ×2 (07:54→15:20)
[2018-06-06] MEDS: Reglan 10 MG/2 ML IV SCH ×4 (07:54→21:52)
--- NOTE | 2018-06-06 09:08 | PCM.NOTE ---
Date and Time: 06/06/18 09 Subjective Assessment: Pt is not c/o stomach pain today and hasn't vomited overnight. His main complaint is back pain. - Review of Systems Constitutional: No Fever Abdominal/Gastrointestinal: No Vomiting Musculoskeletal: Back Pain Objective Exam General Appearance: no apparent distress, alert Neurologic Exam: oriented x 3, cooperative, other (in bed with eyes open, watching TV. answers questions. limited affect.) Skin Exam: normal color, warm, dry, No rash Ears, Nose, Throat Exam: moist mucous membranes Neck Exam: normal inspection Respiratory Exam: normal breath sounds, lungs clear, No crackles/rales, No rhonchi, No wheezing Cardiovascular Exam: regular rate/rhythm, normal heart sounds, No murmur Gastrointestinal/Abdomen Exam: soft, normal bowel sounds, No tenderness, No distention, No mass, No guarding, No rebound Extremity Exam: No pedal edema, No swelling Back Exam: normal inspection, No rash OBJECTIVE DATA Vital Signs: Vital Signs - 24 hr Temp Pulse Resp BP Pulse Ox 06/06/18 08:00 84 18 162/88 98 06/06/18 04:03 98.0 F 75 18 142/83 98 06/05/18 23:35 98.6 F 77 16 125/84 98 06/05/18 19:35 98.8 F 91 H 18 128/85 98 06/05/18 16:45 98.2 F 100 H 20 169/100 98 06/05/18 13:17 97.7 F 88 20 152/86 97 06/05/18 11:08 97.5 F 96 H 18 152/91 97 06/05/18 09:40 97.5 F 86 18 137/87 86 L 06/05/18 09:15 97.7 F 96 H 18 145/90 98 Pain Assessment - Last Documented Pain Intensity 7 Pain Scale Used 0-10 Pain Scale Intake and Output: Intake & Output 06/03/18 06/04/18 06/05/18 06/06/18 11:59 11:59 11:59 11:59 Intake Total 282 4462 1920 Output Total 350 2350 750 Balance -68 2112 1170 Weight 70.5 kg 70.5 kg Lab Results: Accuchecks Date 06/06/18 Date 06/05/18 Date 06/05/18 Date 06/05/18 Time 07:54 Time 21:00 Time 16:30 Time 11:30 Accucheck Value: 227 Accucheck Value: 174 Accucheck Value: 155 Accucheck Value: 192 Lab Results-Last 24 Hours 06/06/18 06/06/18 Range/Units 04:45 04:45 WBC 9.8 (4.0-10.5) K/mm3 RBC 3.97 L (4.1-5.6) M/mm3 Hgb 12.0 L (12.5-18.0) gm/dl Hct 34.3 L (42-50) % MCV 86.4 (78-100) fl MCH 30.2 (26-32) pg MCHC 35.0 (32-36) g/dl RDW 11.9 (11.5-14.0) % Plt Count 265 (150-450) K/mm3 MPV 10.0 H (6-9.5) fl Sodium 132 L (137-145) mmol/L Potassium 3.6 (3.5-5.1) mmol/L Chloride 98 (98-107) mmol/L Carbon Dioxide 25 (22-30) mmol/L Anion Gap 13.1 (5-15) MEQ/L BUN 13 (9-20) mg/dL Creatinine 0.69 (0.66-1.25) mg/dL Estimated GFR > 60.0 ML/MIN Glucose 179 H (74-106) mg/dL Calcium 8.5 (8.4-10.2) mg/dL Multi-Disciplinary Progress Notes: Multi-Disciplinary Progress Notes 06/05/18 09:23 Case Management Note by Alexa Bach DISCHARGE PLAN REVIEWED, PLANS TO RETURN HOME TO PRE EPISODIC LEVEL OF [facility]. INDEPENDENT WITH ALL ADL'S. WILL FOLLOW FOR ALL DC NEEDS. Initialized on 06/05/18 09:23 - END OF NOTE Assessment/Plan (1) Esophagitis with gastritis Current Visit: Yes Status: Acute Onset Date: ~06/05/18 Assessment & Plan: per EGD with Dr. Jiang yesterday. He is currently on protonix drip and carafate; since he has been to the hospital 3x in the past 1-2 weeks, so I advised him to stay today, slowly increase diet, and plan to discharge home tomorrow on 1 week of carafate and protonix 40mg x 2 weeks then 20mg from then on. Stopped his NSAID. Code(s): K29.70 - GASTRITIS, UNSPECIFIED, WITHOUT BLEEDING; K20.9 - ESOPHAGITIS , UNSPECIFIED (2) Diabetic gastroparesis Current Visit: Yes Status: Chronic Assessment & Plan: Actually feeling much better on reglan IV. would send him home on reglan po; did discuss the risk of tardive dyskinesia. Would perhaps have him take QID for 1-2 weeks then BID as tolerated. Code(s): E11.43 - TYPE 2 DIABETES W DIABETIC AUTONOMIC (POLY)NEUROPATHY; K31.84 - GASTROPARESIS (3) Cyclic vomiting syndrome Current Visit: Yes Status: Chronic Onset Date: ~06/04/18 Qualifiers: Vomiting Intractability: intractable Nausea presence: with nausea Qualified Code(s): G43.A1 - Cyclical vomiting, intractable Assessment & Plan: Would like him to follow up with GI outpatient. He indicated that if his insurance was taken care of he would do this. I discussed with Alexa Bach; he has presumptive HIP, which is new. Pt cannot read, so she will walk through the insurance process with him today, naming me as PCP so he can get some continuity of care. (4) Constipation Current Visit: Yes Status: Acute Onset Date: ~06/05/18 Qualifiers: Constipation type: unspecified constipation type Qualified Code(s): K59.00 - Constipation, unspecified Assessment & Plan: will try some stool softeners. Was noted on CT scan. Code(s): K59.00 - CONSTIPATION, UNSPECIFIED (5) Hematuria Current Visit: No Status: Resolved Onset Date: ~05/30/18 Qualifiers: Hematuria type: asymptomatic microscopic Qualified Code(s): R31.21 - Asymptomatic microscopic hematuria Assessment & Plan: will need workup outpatient if persistent. Code(s): R31.9 - HEMATURIA, UNSPECIFIED (6) Spondylolysis of lumbar region Current Visit: No Status: Chronic Assessment & Plan: Would like him to follow up outpatient with pain management. Starting lidocaine patches today. Will have to avoid outpatient narcotics due to drug use. Code(s): M43.06 - SPONDYLOLYSIS, LUMBAR REGION (7) Illicit drug use Current Visit: No Status: Chronic Onset Date: ~05/30/18 Assessment & Plan: Has been here wiht positive tests for methamphetamine in the past. Code(s): F19.90 - OTHER PSYCHOACTIVE SUBSTANCE USE, UNSPECIFIED, UNCOMPLICATED (8) Uncontrolled diabetes mellitus Current Visit: No Status: Chronic Qualifiers: Diabetes mellitus type: type 1 Glycemic state: with hyperglycemia Qualified Code(s): E10.65 - Type 1 diabetes mellitus with hyperglycemia Assessment & Plan: Again, needs OP f/u. Code(s): E11.65 - TYPE 2 DIABETES MELLITUS WITH HYPERGLYCEMIA
[2018-06-06] MEDS: Lidoderm Patch 5% TOP SCH (09:24)
[2018-06-06] MEDS ORDERED: ENOXAPARIN SODIUM SQ SCH (10:00)
[2018-06-06] MEDS ORDERED: NORCO 5/325 MG PO PRN (16:21)
[2018-06-06] MEDS ORDERED: Apresoline 25 MG TABLET PO PRN (17:22)
[2018-06-06] MEDS ORDERED: Zestril 10 MG PO STA (17:22)
[2018-06-07] MEDS: Sodium Chloride 0.9% 1000 ML 1,000 ML IV SCH ×2 (02:02→08:51)
[2018-06-07] MEDS: PROTONIX 40 MG IV*** 80 MG in Sodium Chloride 0.9% 500 ML 500 ML IV SCH (03:34)
[2018-06-07 05:50] LABS: BASOPHIL % 0.3 % (0.0-0.4); Basophil (Absolute #) 0.02 (0-0.4); Eosinophil % 5.7 % (0.00-5.0); Eosinophil (Absolute #) 0.44 (0-0.5); Granulocyte Absolute (ANC) 4.88 (1.4-6.9); Granulocytes % 62.7 % (36.0-66.0); Hematocrit 32.7 % (42-50); Hemoglobin 11.7 gm/dl (12.5-18.0); Lymphocyte (Absolute #) 1.47 (1.0-4.6); Lymphocytes % 18.9 % (24.0-44.0); Mean Cell Volume 83.4 fl (78-100); Mean Corpuscular Hemoglobin 29.8 pg (26-32); Mean Corpuscular Hgb Concent. 35.8 g/dl (32-36); Mean Platelet Volume 8.2 fl (6-9.5); Monocyte (Absolute #) 0.96 (0.0-1.3); Monocytes % 12.4 % (0.0-12.0); Platelet Count 327 K/mm3 (150-450); Red Blood Count 3.92 M/mm3 (4.1-5.6); Red Cell Distribution Width 11.6 % (11.5-14.0); White Blood Count 7.8 K/mm3 (4.0-10.5)
[2018-06-07 06:08] LABS: ALBUMIN 3.8 g/dL (3.5-5.0); ALKALINE PHOSPHATASE 68 U/L (38-126); ANION GAP 17.6 MEQ/L (5-15); BLOOD UREA NITROGEN 6 mg/dL (9-20); CHLORIDE 97 mmol/L (98-107); Calcium 8.5 mg/dL (8.4-10.2); Carbon Dioxide 23 mmol/L (22-30); Creatinine 1 0.66 mg/dL (0.66-1.25); Glucose 277 mg/dL (74-106); Potassium 3.4 mmol/L (3.5-5.1); SGOT/AST 13 U/L (17-59); SGPT/ALT 11 U/L (0-50); SODIUM 134 mmol/L (137-145); Total Protein 6.2 g/dL (6.3-8.2)
[2018-06-07 08:09] VITALS: PULSE 85; O2SAT 98
[2018-06-07] MEDS: NovoLOG Insulin SQ PRN (09:22)
[2018-06-07] MEDS ORDERED: Zestril 10 MG PO SCH (10:00)
[2018-06-07] MEDS: Reglan 10 MG/2 ML IV SCH (11:30)
--- NOTE | 2018-06-07 11:50 | PCM.DCORD ---
- Discharge Discharge Date: 06/07/18 Disposition: Home, Self-Care Condition: Stable Prescriptions: New Sucralfate 1 gm [Carafate 1 GM] 1 gm PO QID #60 tablet Metoclopramide HCl 10 mg [Reglan 10 MG] 10 mg PO QID #60 tablet Lisinopril 10 mg [Zestril 10 MG] 10 mg PO DAILY #30 tablet Continue Pen Needle, Diabetic [1St Tier Unifine Pentips] 1 each MC QID #100 dis.needle Insulin Glargine,Hum.rec.anlog [Basaglar Kwikpen U-100] 20 unit SQ DAILY #2 insuln.pen Insulin Aspart [NovoLOG Insulin] 5 unit SQ TIDAC #2 pens Naproxen 500 mg [Naprosyn 500 MG] 500 mg PO BID #30 tablet Changed PANTOPRAZOLE 40 mg Tablet [Protonix 40MG Tablet] 40 mg PO BID #30 tab Discontinued Promethazine HCl 25 mg [Phenergan 25 mg] 25 mg PO Q8H PRN PRN #6 tablet PRN Reason: Nausea/Vomiting Instructions: Acid Reflux (Gastroesophageal Reflux Disease), Adult (DC), [place] Diet, Gastritis (DC), Marijuana Use and Addiction (DC) Follow up with: VALENTINA ESPINO [Primary Care Provider] - 06/16/18 10:45 am TINA SUAZO MD [NON-STAFF PHY W/O PRIVILEGES] - 06/12/18 8:30 am Forms: Discharge Instructions
[2018-06-07] MEDS: Lidoderm Patch 5% TOP SCH (12:10)
[2018-06-07 12:30] VITALS: BP 165/97
--- NOTE | 2018-06-10 13:40 | DS ---
DISCHARGE DIAGNOSES: 1) UNCONTROLLED TYPE 1 DIABETES. 2) GASTRITIS. 3) GASTROPARESIS. 4) CYCLIC VOMITING SYNDROME. 5) HISTORY OF ILLICIT DRUG USE. 6) HYPERTENSION. PHYSICAL EXAMINATION: VITAL SIGNS: Temperature current 97.8F, temperature max 98.5F, heart rate 85 to 87, respiratory rate 17 to 20, blood pressure 134 to 177 over 83 to 107. Oxygen saturation 96 to 98% on room air. GENERAL: He is a pleasant talkative man sitting up in no acute distress. CVS: Regular rate and rhythm. No murmurs, gallops or rubs. CHEST: Clear to auscultation bilaterally. ABDOMEN: Soft, nontender, nondistended with normal bowel sounds. EXTREMITIES: No clubbing, cyanosis or edema. SKIN: Warm, dry and intact. HOSPITAL COURSE: 1) UNCONTROLLED TYPE 1 DIABETES: He was given his home dose of insulin here which we discharged him on and need to follow up as an outpatient. He plans to follow up with Dr. Quinones. The patient reports that he has insulin at home to give himself. 2) GASTRITIS: He had an upper endoscopy with Dr. Jiang. Please see his report. He was on IV Protonix here we have discharged him with Protonix 40 mg p.o. b.i.d. for two weeks and then will follow up with Dr. Quinones. I also discharged him on sulcralfate 1 gm p.o. four times a day also enough for two weeks. 3) GASTROPARESIS: Dr. Quinones wanted to start him on metoclopramide. I have already discussed with the patient about the side effect of possible tardive dyskinesia which I also talked with him as well and he wanted to advance with metoclopramide at home with 10 mg p.o. q.i.d. I told him to take this before meals in the evening. 4) CYCLIC VOMITING SYNDROME: They plan for him to follow up with security trainer as an outpatient. 5) HISTORY OF ILLICIT DRUG USE: His urine tox was positive for marijuana on this admission. 6) HYPERTENSION: His blood pressures were high and started him on lisinopril 10 mg p.o. daily to continue this at home. DISPOSITION: The patient was discharged to home in fair condition. DISCHARGE MEDICATIONS: Please see the discharge order. FOLLOW UP: He has follow up scheduled with Dr. Quinones and a security trainer.
== END 2018-06-07 12:32 | disposition home or self-care (01) ==
LOC: ED 19:31 → MED SURG 06-04 00:32
PROVIDERS: ADMIT Family Medicine; ATTEND Family Medicine
DX: E10.65 Type 1 diabetes mellitus with hyperglycemia (principal); K29.70 Gastritis, unspecified, without bleeding; G43.A0 Cyclical vomiting, in migraine, not intractable; F19.90 Other psychoactive substance use, unspecified, uncomplicated; I10 Essential (primary) hypertension; K31.84 Gastroparesis; F41.9 Anxiety disorder, unspecified; F32.9 Major depressive disorder, single episode, unspecified; K59.00 Constipation, unspecified; R31.9 Hematuria, unspecified; M43.06 Spondylolysis, lumbar region; R10.13 Epigastric pain; K20.9 Esophagitis, unspecified
CPT/HCPCS: 36415; 43239; 74176; 80048; 80053; 80307; 81001; 82962; 83605; 83690; 85025; 85027; 93268; 94250; 96360; 96361; 96374; 96375; 99285; G0378; 88305; 88312; J1650; J2270; J2405; J2550; A9270-GY

== ENCOUNTER 2018-06-08 15:02 | Emergency (ER) | payer OTHER ==
--- NOTE | 2018-06-08 15:37 | ERPHSYRPT ---
- History of Present Illness Historian: patient Exam Limitations: no limitations Timing/Duration: today Activities at Onset: none Quality: cramping Abdominal Pain Onset Location: periumbilical Pain Radiation: no radiation Severity of Pain-Max: moderate Severity of Pain-Current: moderate Modifying Factors: Improves With: vomiting. Worsens With: analgesics, antacids , breathing, coughing, defecating, eating, exercise, lying down, movement, palpation, rest, urinating, position, walking Associated Symptoms: nausea, vomiting, No back, No chest pain, No diaphoresis, No diarrhea, No fever/chills, No fatigue, No headache, No heartburn, No loss of appetite, No neck pain, No rash, No shortness of breath, No syncope, No testicular pain Previous symptoms: same symptoms as today (discharge yesterday for same symptoms ) Hx Tetanus, Diphtheria Vaccination/Date Given: Yes Hx Influenza Vaccination/Date Given: No Hx Pneumococcal Vaccination/Date Given: No <DANIEL CASH - Last Filed: 06/08/18 19:03> <OSMAR ALEJANDRA - Last Filed: 06/08/18 23:27> - History of Present Illness Time Seen by Provider: 06/08/18 15:26 Physician History: 32-year-old white male with history of anxiety depression diabetic ketoacidosis diabetes type 1. Who was released from the hospital yesterday secondary to abdominal pain nausea and vomiting. States that he began to have abdominal pain nausea and vomiting starting since this morning he states he has vomited multiple times he has periumbilical abdominal pain. Patient apparently was discharged yesterday with medications which she did not fill. Past medical history includes anxiety, depression, DKA. Past surgical history is negative. Social history positive for marijuana use (DANIEL CASH) Allergies/Adverse Reactions: No Known Drug Allergies Allergy (Verified 04/03/18 21:22) - Review of Systems Constitutional: No Fever, No Chills Eyes: No Symptoms Ears, Nose, & Throat: No Symptoms Respiratory: No Cough, No Dyspnea Cardiac: No Chest Pain, No Edema, No Syncope Abdominal/Gastrointestinal: Abdominal Pain, Nausea, Vomiting, No Constipation, No Hematemesis, No Hematochezia, No Melena (That he needs to get some fluids I ) , No Dysphagia, No Appetite Changes Genitourinary Symptoms: No Dysuria Musculoskeletal: No Back Pain, No Neck Pain Skin: No Rash Neurological: No Dizziness, No Focal Weakness, No Sensory Changes Psychological: No Symptoms Endocrine: No Symptoms All Other Systems: Reviewed and Negative <DANIEL CASH - Last Filed: 06/08/18 19:03> - Past Medical History Pertinent Past Medical History: Yes Neurological History: No Pertinent History ENT History: No Pertinent History Cardiac History: No Pertinent History Respiratory History: No Pertinent History Endocrine Medical History: Diabetes Type I Musculoskeletal History: No Pertinent History GI Medical History: No Pertinent History History: No Pertinent History Psycho-Social History: Anxiety, Depression Male Reproductive Disorders: No Pertinent History Other Medical History: DKA. pt not answering questions well. has eyes closed. recalled from previous admission - Past Surgical History Past Surgical History: No Neuro Surgical History: No Pertinent History Cardiac: No Pertinent History Respiratory: No Pertinent History Gastrointestinal: No Pertinent History Genitourinary: No Pertinent History Musculoskeletal: No Pertinent History Male Surgical History: No Pertinent History Other Surgical History: pt not answering questions well. has eyes closed. recalled from previous admission - Social History Smoking Status: Never smoker Exposure to second hand smoke: Yes Drug Use: marijuana Patient Lives Alone: No <HIEUMANISHDANIEL GAMBOALEY - Last Filed: 06/08/18 19:03> - Physical Exam General Appearance: moderate distress Eye Exam: PERRL/EOMI, eyes nml inspection Ears, Nose, Throat Exam: normal ENT inspection, pharynx normal, moist mucous membranes Neck Exam: normal inspection, non-tender, supple, full range of motion Respiratory Exam: normal breath sounds, lungs clear, No respiratory distress Cardiovascular Exam: regular rate/rhythm, normal heart sounds Gastrointestinal/Abdomen Exam: soft, normal bowel sounds, tenderness ( periumbilical tenderness), No distention, No mass, No guarding, No ecchymosis, No pulsatile mass, No rebound, No hernia, No hepatomegaly, No organomegaly, No splenomegaly Back Exam: normal inspection, normal range of motion, No CVA tenderness, No vertebral tenderness Extremity Exam: normal inspection, normal range of motion, pelvis stable Neurologic Exam: alert, oriented x 3, cooperative, production tech II-XII nml as tested, normal mood/affect, nml cerebellar function, sensation nml, No motor deficits Skin Exam: pale (without his skin looked a little pale) SpO2 Interpretation: normal (98%) <DANIEL CASH - Last Filed: 06/08/18 19:03> - Nursing Vital Signs Nursing Vital Signs: Initial Vital Signs Temperature 98.2 F 06/08/18 15:02 Pulse Rate 95 H 06/08/18 15:02 Respiratory Rate 18 06/08/18 15:02 Blood Pressure 183/126 06/08/18 15:02 O2 Sat by Pulse Oximetry 97 06/08/18 15:02 Pain Scale Pain Intensity 3 - Course Nursing assessment & vital signs reviewed: Yes EKG Interpreted by Me: RATE (91 bpm), Sinus Rhythm, NORMAL AXIS, Other (EKG: Sinus rhythm, 91 bpm, normal axis, no acute ST or T wave changes noted) <DANIEL CASH - Last Filed: 06/08/18 19:03> Ordered Tests: Active Orders 24 hr Category Date Time Status Accucheck STAT Care 06/08/18 15:30 Active EKG-ER Only STAT Care 06/08/18 15:30 Active IV Insertion STAT Care 06/08/18 15:29 Active AMYLASE Stat Lab 06/08/18 15:45 Completed BMP Stat Lab 06/08/18 21:45 Completed CBC W DIFF Stat Lab 06/08/18 15:45 Completed CMP Stat Lab 06/08/18 15:45 Completed CULTURE,URINE Stat Lab 06/08/18 15:29 Received LIPASE Stat Lab 06/08/18 15:45 Completed UA W/RFX UR CULTURE Stat Lab 06/08/18 15:29 Completed Urine Triage Profile Stat Lab 06/08/18 15:29 Completed VENOUS BLOOD GAS Urgent Lab 06/08/18 15:30 Completed Medication Summary Discontinued Medications Generic Name Dose Route Start Last Admin Trade Name Freq PRN Reason Stop Dose Admin Sodium Chloride 1,000 mls @ 999 mls/hr 06/08/18 15:29 06/08/18 16:38 Sodium Chloride 0.9% 1000 Ml IV 06/08/18 16:29 999 mls/hr .Q1H1M STA Administration Sodium Chloride 1,000 mls @ 999 mls/hr 06/08/18 15:31 06/08/18 18:50 Sodium Chloride 0.9% 1000 Ml IV 06/08/18 16:31 999 mls/hr .Q1H1M STA Administration Sodium Chloride Confirm 06/08/18 16:11 Sodium Chloride 0.9% 1000 Ml Administered 06/08/18 16:12 Dose 1,000 mls @ ud .ROUTE .STK-MED ONE Sodium Chloride Confirm 06/08/18 18:48 Sodium Chloride 0.9% 1000 Ml Administered 06/08/18 18:49 Dose 1,000 mls @ ud .ROUTE .STK-MED ONE Sodium Chloride 1,000 mls @ 999 mls/hr 06/08/18 20:28 06/08/18 20:36 Sodium Chloride 0.9% 1000 Ml IV 06/08/18 21:28 999 mls/hr .Q1H1M STA Administration Sodium Chloride Confirm 06/08/18 20:33 Sodium Chloride 0.9% 1000 Ml Administered 06/08/18 20:34 Dose 1,000 mls @ ud .ROUTE .STK-MED ONE Lorazepam 1 mg 06/08/18 17:16 06/08/18 17:23 Ativan 2 Mg/1 Ml Vial IV 06/08/18 17:17 1 mg STAT ONE Administration Lorazepam Confirm 06/08/18 17:21 Ativan 2 Mg/1 Ml Vial Administered 06/08/18 17:22 Dose 2 mg .ROUTE .STK-MED ONE Ondansetron HCl 4 mg 06/08/18 15:29 06/08/18 16:38 Zofran 4 Mg/2 Ml Vial IV 06/08/18 15:30 4 mg STAT ONE Administration Ondansetron HCl Confirm 06/08/18 16:11 Zofran 4 Mg/2 Ml Vial Administered 06/08/18 16:12 Dose 4 mg .ROUTE .STK-MED ONE Lab/Rad Data: Laboratory Result Diagrams 06/08/18 15:45 06/08/18 21:45 Laboratory Results 06/08/18 06/08/18 06/08/18 Range/Units 21:45 15:45 15:45 WBC 7.3 (4.0-10.5) K/mm3 RBC 5.07 (4.1-5.6) M/mm3 Hgb 15.1 (12.5-18.0) gm/dl Hct 41.5 L (42-50) % MCV 81.9 (78-100) fl MCH 29.8 (26-32) pg MCHC 36.4 H (32-36) g/dl RDW 12.5 (11.5-14.0) % Plt Count 405 (150-450) K/mm3 MPV 8.3 (6-9.5) fl Gran % 72.0 H (36.0-66.0) % Eos # (Auto) 0.27 (0-0.5) Absolute Lymphs (auto) 0.97 L (1.0-4.6) Absolute Monos (auto) 0.76 (0.0-1.3) Lymphocytes % 13.4 L (24.0-44.0) % Monocytes % 10.5 (0.0-12.0) % Eosinophils % 3.7 (0.00-5.0) % Basophils % 0.4 (0.0-0.4) % Absolute Granulocytes 5.23 (1.4-6.9) Basophils # 0.03 (0-0.4) pO2/FiO2 Ratio % VBG pH (7.32-7.42) VBG pCO2 at Pat Temp (42-55) mm/Hg VBG pO2 at Pat Temp (25-40) mm/Hg VBG HCO3 (22-28) meq/L VBG O2 Sat (Jalen) (95-100) VBG Base Excess (-2.0-2.0) VBG Hemoglobin VBG Carboxyhemoglobin (0.0-6.9) % T HGB POC Potassium (3.5-5.1) Sodium 138 138 (137-145) mmol/L Potassium 4.7 3.8 (3.5-5.1) mmol/L Chloride 102 99 (98-107) mmol/L Carbon Dioxide 17 L 19 L (22-30) mmol/L Anion Gap 24.1 H 23.2 H (5-15) MEQ/L BUN 11 14 (9-20) mg/dL Creatinine 0.83 0.97 (0.66-1.25) mg/dL Estimated GFR > 60.0 > 60.0 ML/MIN Glucose 310 H 310 H (74-106) mg/dL Calcium 9.0 10.4 H (8.4-10.2) mg/dL Total Bilirubin 0.70 (0.2-1.3) mg/dL AST 12 L (17-59) U/L ALT 13 (0-50) U/L Alkaline Phosphatase 114 (38-126) U/L Serum Total Protein 8.5 H (6.3-8.2) g/dL Albumin 5.3 H (3.5-5.0) g/dL Amylase 61 (30-110) U/L Lipase 31 (23-300) U/L Urine Color (YELLOW) Urine Appearance (CLEAR) Urine pH (5-6) Ur Specific [place] (1.005-1.025) Urine Protein (Negative) Urine Ketones (NEGATIVE) Urine Blood (0-5) Tomas/ul Urine Nitrite (NEGATIVE) Urine Bilirubin (NEGATIVE) Urine Urobilinogen (0-1) mg/dL Ur Leukocyte Esterase (NEGATIVE) Urine WBC (Auto) (0-5) /HPF Urine RBC (Auto) (0-2) /HPF U Epithel Cells (Auto) (FEW) /HPF Urine Bacteria (Auto) (NEGATIVE) /HPF Urine Mucus (Auto) (NEGATIVE) /HPF Urine Culture Reflexed (NO) Urine Glucose (NEGATIVE) mg/dL Urine Opiates Level (NEGATIVE) Ur Methadone (NEGATIVE) Urine Barbiturates (NEGATIVE) Ur Phencyclidine (PCP) (NEGATIVE) Urine Amphetamine (NEGATIVE) U Benzodiazepine Level (NEGATIVE) Urine Cocaine (NEGATIVE) Urine Marijuana (THC) (NEGATIVE) 06/08/18 06/08/18 06/08/18 Range/Units 15:30 15:29 15:29 WBC (4.0-10.5) K/mm3 RBC (4.1-5.6) M/mm3 Hgb (12.5-18.0) gm/dl Hct (42-50) % MCV (78-100) fl MCH (26-32) pg MCHC (32-36) g/dl RDW (11.5-14.0) % Plt Count (150-450) K/mm3 MPV (6-9.5) fl Gran % (36.0-66.0) % Eos # (Auto) (0-0.5) Absolute Lymphs (auto) (1.0-4.6) Absolute Monos (auto) (0.0-1.3) Lymphocytes % (24.0-44.0) % Monocytes % (0.0-12.0) % Eosinophils % (0.00-5.0) % Basophils % (0.0-0.4) % Absolute Granulocytes (1.4-6.9) Basophils # (0-0.4) pO2/FiO2 Ratio 21.0 % VBG pH 7.32 (7.32-7.42) VBG pCO2 at Pat Temp 39 L (42-55) mm/Hg VBG pO2 at Pat Temp 36 (25-40) mm/Hg VBG HCO3 20.1 L (22-28) meq/L VBG O2 Sat (Jalen) 70.9 L (95-100) VBG Base Excess -5.6 L (-2.0-2.0) VBG Hemoglobin 15.4 VBG Carboxyhemoglobin 3.2 (0.0-6.9) % T HGB POC Potassium 3.6 (3.5-5.1) Sodium (137-145) mmol/L Potassium (3.5-5.1) mmol/L Chloride (98-107) mmol/L Carbon Dioxide (22-30) mmol/L Anion Gap (5-15) MEQ/L BUN (9-20) mg/dL Creatinine (0.66-1.25) mg/dL Estimated GFR ML/MIN Glucose (74-106) mg/dL Calcium (8.4-10.2) mg/dL Total Bilirubin (0.2-1.3) mg/dL AST (17-59) U/L ALT (0-50) U/L Alkaline Phosphatase (38-126) U/L Serum Total Protein (6.3-8.2) g/dL Albumin (3.5-5.0) g/dL Amylase (30-110) U/L Lipase (23-300) U/L Urine Color YELLOW (YELLOW) Urine Appearance CLEAR (CLEAR) Urine pH 5.0 (5-6) Ur Specific [place] 1.028 (1.005-1.025) Urine Protein 100 (Negative) Urine Ketones MODERATE (NEGATIVE) Urine Blood MODERATE (0-5) Tomas/ul Urine Nitrite NEGATIVE (NEGATIVE) Urine Bilirubin NEGATIVE (NEGATIVE) Urine Urobilinogen NEGATIVE (0-1) mg/dL Ur Leukocyte Esterase NEGATIVE (NEGATIVE) Urine WBC (Auto) 6-10 (0-5) /HPF Urine RBC (Auto) 6-10 (0-2) /HPF U Epithel Cells (Auto) NONE SEEN (FEW) /HPF Urine Bacteria (Auto) RARE (NEGATIVE) /HPF Urine Mucus (Auto) SLIGHT (NEGATIVE) /HPF Urine Culture Reflexed YES (NO) Urine Glucose >=500 (NEGATIVE) mg/dL Urine Opiates Level NEGATIVE (NEGATIVE) Ur Methadone NEGATIVE (NEGATIVE) Urine Barbiturates NEGATIVE (NEGATIVE) Ur Phencyclidine (PCP) NEGATIVE (NEGATIVE) Urine Amphetamine NEGATIVE (NEGATIVE) U Benzodiazepine Level NEGATIVE (NEGATIVE) Urine Cocaine NEGATIVE (NEGATIVE) Urine Marijuana (THC) POSITIVE (NEGATIVE) - Progress Progress: improved <DANIEL CASH - Last Filed: 06/08/18 19:03> - Progress Discussed with : Demetrio Counseled pt/family regarding: lab results, diagnosis <OSMAR ALEJANDRA - Last Filed: 06/08/18 23:27> - Progress Progress Note: 06/08/18 18:54 This is a 32-year-old white male recently admitted to the hospital and discharged yesterday with complaint of persistent nausea vomiting of periumbilical abdominal pain. Patient returns today stating that he has continuing abdominal pain and vomiting which began this morning. He apparently did not obtain any of his medications which were prescribed yesterday. Patient does have a history of diabetic ketoacidosis as well as diabetes type 1. Patient also has a history of marijuana use Review of chart yesterday shows that the patient was discharged there was some concern whether the patient might have cyclic vomiting syndrome possibly secondary to marijuana use. On arrival patient's blood pressure is markedly elevated. His blood sugar is actually only running around 300 Patient has a pH of 7.32 PCO2 of 39 on venous gases urinalysis shows 6-10 white cells 6-10 red cells chemistry remarkable for a glucose of 310 sodium 138 potassium 3.8 chloride 99 BUN 14 creatinine 0.97 amylase and lipase are within normal limits \ Urine drug screen is positive for THCPatient's white count is 7.3 hemoglobin 15.1 hematocrit 41.5 platelets are 405 Patient had does have a IV established nurses had a difficult time obtaining this however one is present however fluids are running somewhat slow pressure I have ordered 2 L of normal saline on this patient. Initially had ordered Zofran for this patient. Patient was disappointed I did not order narcotic analgesia for this patient however there was a question of substance abuse in this patient. I did notice that the patient had a markedly elevated blood pressure on arrival. I ordered 1 mg of Ativan IV on this patient, his blood pressure is improved and he states he is feeling better however he is somewhat somnolent. Anticipate patient received his full 2 L of normal saline and Accu-Chek be rechecked at that time. Patient did have a CT of the abdomen several days ago. 06/08/18 19:01 The patient does appear to be improved at this time he is somewhat somnolent from his Ativan. He is receiving his second liter of normal saline. I've discussed the case with Dr. Alejandra he will assume care of this patient secondary to shift change. Anticipate recheck of the patient's Accu-Chek and condition and condition after second liter of fluids has been instilled. (DNAIEL CASH) 06/08/18 23:11 pt just vomited. spoke with dr. ochoa who is covering for dr. espino. pt was discharged to home on 06/07/18. dr. ochoa states pt would benefit from transferring pt to a facility with a gi specialist and an endocrine specialist. i agree. i spoke to pt and he wants to go home. i discussed risks and benefits of transferring him. he does not want transfer. he wants to go home. i discussed risks of going home including worsening DKA, vomiting, coma and . he agrees to ivf and phenergan but then will sign an ama form. pt states he has prescriptions at home but has not filled them. (OSMAR ALEJANDRA) <DANIEL CASH - Last Filed: 06/08/18 19:03> - Departure Time of Disposition: 23:18 Departure Disposition: AMA Critical Care Time: Yes Critical Care Time(excluding separately billable procedures): 30-74 minutes <OSMAR ALEJANDRA - Last Filed: 06/08/18 23:27> - Departure Clinical Impression: DKA (diabetic ketoacidoses), Vomiting Condition: Fair Referrals: AVLENTINA ESPINO [Primary Care Provider] - Additional Instructions: return to ED if symptoms worsen. go to pharmacy tomorrow and fill prescriptions. follow up with primary doctor for further management Prescriptions: Promethazine HCl 25 mg [Phenergan 25 mg] 25 mg PO Q8H PRN PRN #10 tablet PRN Reason: Nausea/Vomiting
[2018-06-08 15:48] LABS: Appearance CLEAR (CLEAR); Bilirubin NEGATIVE (NEGATIVE); Blood MODERATE Ery/ul (0-5); Glucose >=500 mg/dL (NEGATIVE); Ketones MODERATE (NEGATIVE); Leukocyte Esterase NEGATIVE (NEGATIVE); Nitrite NEGATIVE (NEGATIVE); Protein,Urine Dip 100 (Negative); Specific Gravity 1.028 (1.005-1.025); Urobilinogen NEGATIVE mg/dL (0-1)
[2018-06-08 15:50] LABS: BASOPHIL % 0.4 % (0.0-0.4); Basophil (Absolute #) 0.03 (0-0.4); Eosinophil % 3.7 % (0.00-5.0); Eosinophil (Absolute #) 0.27 (0-0.5); Granulocyte Absolute (ANC) 5.23 (1.4-6.9); Hematocrit 41.5 % (42-50); Hemoglobin 15.1 gm/dl (12.5-18.0); Lymphocyte (Absolute #) 0.97 (1.0-4.6); Lymphocytes % 13.4 % (24.0-44.0); Mean Cell Volume 81.9 fl (78-100); Mean Corpuscular Hemoglobin 29.8 pg (26-32); Mean Corpuscular Hgb Concent. 36.4 g/dl (32-36); Mean Platelet Volume 8.3 fl (6-9.5); Monocyte (Absolute #) 0.76 (0.0-1.3); Monocytes % 10.5 % (0.0-12.0); Platelet Count 405 K/mm3 (150-450); Red Blood Count 5.07 M/mm3 (4.1-5.6); Red Cell Distribution Width 12.5 % (11.5-14.0); White Blood Count 7.3 K/mm3 (4.0-10.5)
[2018-06-08 15:52] LABS: VBG BASE EXCESS -5.6 (-2.0-2.0); VBG CARBOXYHEMOGLOBIN 3.2 % T HGB (0.0-6.9); VBG HCO3- 20.1 meq/L (22-28); VBG HEMOGLOBIN 15.4; VBG O2 SATURATION 70.9 (95-100); VBG POTASSIUM 3.6 (3.5-5.1); VBG pH 7.32 (7.32-7.42)
[2018-06-08 15:56] LABS: Amphetamine,Urine NEGATIVE (NEGATIVE); Barbiturate,Urine NEGATIVE (NEGATIVE); Benzodiazepine,Urine NEGATIVE (NEGATIVE); Cocaine,Urine NEGATIVE (NEGATIVE); Methadone,Urine NEGATIVE (NEGATIVE); Opiate,Urine NEGATIVE (NEGATIVE); PCP,Urine NEGATIVE (NEGATIVE); THC,Urine POSITIVE (NEGATIVE)
[2018-06-08 16:06] LABS: ALBUMIN 5.3 g/dL (3.5-5.0); ALKALINE PHOSPHATASE 114 U/L (38-126); AMYLASE 61 U/L (30-110); ANION GAP 23.2 MEQ/L (5-15); BLOOD UREA NITROGEN 14 mg/dL (9-20); CHLORIDE 99 mmol/L (98-107); Calcium 10.4 mg/dL (8.4-10.2); Carbon Dioxide 19 mmol/L (22-30); Creatinine 1 0.97 mg/dL (0.66-1.25); Glucose 310 mg/dL (74-106); LIPASE 31 U/L (23-300); Potassium 3.8 mmol/L (3.5-5.1); SGOT/AST 12 U/L (17-59); SGPT/ALT 13 U/L (0-50); SODIUM 138 mmol/L (137-145); Total Protein 8.5 g/dL (6.3-8.2)
[2018-06-08] MEDS ORDERED: Zofran 4 MG/2 ML VIAL ONE (16:11)
[2018-06-08] MEDS ORDERED: Sodium Chloride 0.9% 1000 ML 1,000 ML ONE ×4 (16:11→23:18)
[2018-06-08] MEDS: Sodium Chloride 0.9% 1000 ML 1,000 ML IV STA ×4 (16:38→23:28)
[2018-06-08] MEDS: Zofran 4 MG/2 ML VIAL IV ONE (16:38)
[2018-06-08] MEDS ORDERED: Ativan 2 MG/1 ML VIAL ONE (17:21)
[2018-06-08] MEDS: Ativan 2 MG/1 ML VIAL IV ONE (17:23)
[2018-06-08 21:58] LABS: ANION GAP 24.1 MEQ/L (5-15); BLOOD UREA NITROGEN 11 mg/dL (9-20); CHLORIDE 102 mmol/L (98-107); Creatinine 1 0.83 mg/dL (0.66-1.25); Glucose 310 mg/dL (74-106); Potassium 4.7 mmol/L (3.5-5.1); SODIUM 138 mmol/L (137-145)
[2018-06-08 22:03] LABS: Carbon Dioxide 17 mmol/L (22-30)
[2018-06-08 23:02] VITALS: BP 163/101; O2SAT 99
[2018-06-08] MEDS ORDERED: Phenergan 25 MG INJ ONE (23:17)
[2018-06-08] MEDS: Phenergan 25 MG INJ IV ONE (23:28)
[2018-06-08 23:55] VITALS: PULSE 95
== END 2018-06-09 03:47 | disposition home or self-care (01) ==
LOC: ED 15:02
DX: E10.10 Type 1 diabetes mellitus with ketoacidosis without coma (principal); R10.9 Unspecified abdominal pain; R11.10 Vomiting, unspecified
CPT/HCPCS: 36000; 36415; 80048; 80053; 80307; 81001; 82150; 82805; 82962; 83690; 85025; 87086; 93005; 96360; 96361; 96374; 96375; 99285; J2060; J2405; J2550

== ENCOUNTER 2018-08-15 17:40 | Observation (INO) | payer OTHER ==
[2018-08-15] MEDS ORDERED: Sodium Chloride 0.9% 1000 ML 1,000 ML IV STA ×2 (17:56→18:38)
[2018-08-15] MEDS ORDERED: Phenergan 25 MG INJ IV ONE (17:56)
--- NOTE | 2018-08-15 17:56 | ERPHSYRPT ---
- History of Present Illness Historian: patient, EMS Exam Limitations: no limitations Patient Subjective Stated Complaint: Pt states "I don't know what is wrong, I have been vomiting since 4 am today and I cannot stop." Triage Nursing Assessment: Pt alert and oriented X 3, skin pwd. Pt ambulates with an upright steady gait, able to speak in clear full sentences. Pt in no apparent respiratory distress. Pt asked for emesis bag and is holding it to his mouth with no vomiting noted. Timing/Duration: today, sudden Quality: cramping, sharpness Abdominal Pain Onset Location: generalized abdomen Severity of Pain-Max: severe Severity of Pain-Current: severe Modifying Factors: Improves With: vomiting Associated Symptoms: loss of appetite, nausea, vomiting, No diaphoresis, No diarrhea Previous symptoms: no prior history Hx Tetanus, Diphtheria Vaccination/Date Given: Yes Hx Influenza Vaccination/Date Given: No Hx Pneumococcal Vaccination/Date Given: No Immunizations Up to Date: Yes <LOC F[facility]AIN - Last Filed: 08/15/18 19:11> <DANIEL FITZGERALD - Last Filed: 08/15/18 22:14> - History of Present Illness Time Seen by Provider: 08/15/18 17:53 Physician History: The patient is a 32-year-old male brought in by ambulance complaining of vomiting and abdominal pain that began this morning. He is an insulin- dependent diabetic. He used methamphetamine yesterday morning. He denies lightheadedness. He has no abdominal surgeries. His past medical history is significant for diabetes, HTN (he does not take the antihypertensive medicines prescribed). (LOC FOUNTAIN) Allergies/Adverse Reactions: No Known Drug Allergies Allergy (Verified 04/03/18 21:22) - Review of Systems Constitutional: No Fever, No Chills Eyes: No Symptoms Ears, Nose, & Throat: No Symptoms Respiratory: No Cough, No Dyspnea Cardiac: No Chest Pain, No Edema, No Syncope Abdominal/Gastrointestinal: Abdominal Pain, Nausea, Vomiting Genitourinary Symptoms: No Dysuria Musculoskeletal: No Back Pain, No Neck Pain Skin: No Rash Neurological: No Dizziness, No Focal Weakness, No Sensory Changes Psychological: No Symptoms Endocrine: No Symptoms Hematologic/Lymphatic: No Symptoms Immunological/Allergic: No Symptoms All Other Systems: Reviewed and Negative <LOC FOUNTAIN - Last Filed: 08/15/18 19:11> - Past Medical History Pertinent Past Medical History: Yes Neurological History: No Pertinent History ENT History: No Pertinent History Cardiac History: No Pertinent History Respiratory History: No Pertinent History Endocrine Medical History: Diabetes Type I Musculoskeletal History: No Pertinent History GI Medical History: No Pertinent History History: No Pertinent History Psycho-Social History: Anxiety, Depression Male Reproductive Disorders: No Pertinent History Other Medical History: DKA. pt not answering questions well. has eyes closed. recalled from previous admission - Past Surgical History Past Surgical History: No Neuro Surgical History: No Pertinent History Cardiac: No Pertinent History Respiratory: No Pertinent History Gastrointestinal: No Pertinent History Genitourinary: No Pertinent History Musculoskeletal: No Pertinent History Male Surgical History: No Pertinent History Other Surgical History: pt not answering questions well. has eyes closed. recalled from previous admission - Social History Smoking Status: Never smoker Exposure to second hand smoke: No Drug Use: marijuana, methamphetamines Patient Lives Alone: No <LOC FOUNTAIN - Last Filed: 08/15/18 19:11> - Physical Exam General Appearance: moderate distress, thin Eye Exam: PERRL/EOMI, eyes nml inspection Ears, Nose, Throat Exam: normal ENT inspection Neck Exam: normal inspection, non-tender, supple, full range of motion Respiratory Exam: normal breath sounds, lungs clear, No respiratory distress Cardiovascular Exam: regular rate/rhythm, normal heart sounds Gastrointestinal/Abdomen Exam: soft, No tenderness, No mass Rectal Exam: not done Back Exam: normal inspection, normal range of motion, No CVA tenderness, No vertebral tenderness Extremity Exam: normal inspection, normal range of motion, pelvis stable Neurologic Exam: alert, oriented x 3, cooperative, normal mood/affect, nml cerebellar function, sensation nml, No motor deficits Skin Exam: normal color, warm, dry SpO2 Interpretation: normal SpO2: 98 Oxygen Delivery: Room Air <LOC FOUNTAIN - Last Filed: 08/15/18 19:11> - Nursing Vital Signs Nursing Vital Signs: Initial Vital Signs Temperature 97.7 F 08/15/18 17:42 Pulse Rate 110 H 08/15/18 17:42 Respiratory Rate 18 08/15/18 17:42 Blood Pressure 173/104 08/15/18 17:42 O2 Sat by Pulse Oximetry 98 08/15/18 17:42 Pain Scale Pain Intensity 0 - Course EKG Interpreted by Me: RATE, Sinus Tach, NORMAL AXIS, NORMAL INTERVALS, NORMAL QRS, NORMAL ST-T <LOC [facility]AIN - Last Filed: 08/15/18 19:11> - Course Nursing assessment & vital signs reviewed: Yes - CT Exams Abdomen/Pelvis CT Interpretation: Discussed w/radiologist (CT abdomen and pelvis: Compared to January 02, 2018, May 31, 2018, and June 03, 2018. Stable normal appendix. Small hiatal hernia, and bilateral L5 spondylolysis. Without spondylolisthesis. No new/acute findings.) <DANIEL FITZGERALD - Last Filed: 08/15/18 22:14> Ordered Tests: Active Orders 24 hr Category Date Time Status Accucheck STAT Care 08/15/18 17:56 Active Cadmium Liquor Maker STAT Care 08/15/18 17:57 Active Clean Catch Urine Specimen STAT Care 08/15/18 17:56 Active EKG-ER Only STAT Care 08/15/18 17:56 Active IV Insertion STAT Care 08/15/18 17:56 Active IV Insertion-2nd Peripheral STAT Care 08/15/18 17:56 Active Pulse Oximetry (ED) STAT Care 08/15/18 17:56 Active ABDOMEN AND PELVIS W/0 CONTRAS [CT] Stat Exams 08/15/18 18:23 Taken ACETAMINOPHEN Stat Lab 08/15/18 18:00 Completed ARTERIAL BLOOD GASES Urgent Lab 08/15/18 18:25 Completed BLOOD CULTURE Stat Lab 08/15/18 20:22 Received BMP Stat Lab 08/15/18 18:28 Completed CBC W DIFF Stat Lab 08/15/18 18:28 Completed CULTURE,URINE Stat Lab 08/15/18 21:30 Received ETHYL ALCOHOL Stat Lab 08/15/18 18:28 Completed Lactic Acid Stat Lab 08/15/18 20:15 Completed Lactic Acid Urgent Lab 08/15/18 18:25 Completed SALICYLATE Stat Lab 08/15/18 18:00 Completed UA W/RFX UR CULTURE Stat Lab 08/15/18 21:30 Completed Urine Triage Profile Stat Lab 08/15/18 21:30 Completed Transfer Order Routine Transfer 08/15/18 Ordered Medication Summary Generic Name Dose Route Start Last Admin Trade Name Freq PRN Reason Stop Dose Admin Sodium Chloride 1,000 mls @ 100 mls/hr 08/15/18 20:30 08/15/18 20:21 Sodium Chloride 0.9% 1000 Ml IV 09/14/18 20:29 100 mls/hr .Q10H XIN Administration Discontinued Medications Generic Name Dose Route Start Last Admin Trade Name Kelsie PRN Reason Stop Dose Admin Sodium Chloride 1,000 mls @ 999 mls/hr 08/15/18 17:56 08/15/18 19:44 Sodium Chloride 0.9% 1000 Ml IV 08/15/18 18:56 Infused .Q1H1M STA Infusion Sodium Chloride Confirm 08/15/18 18:04 Sodium Chloride 0.9% 1000 Ml Administered 08/15/18 18:05 Dose 1,000 mls @ ud .ROUTE .STK-MED ONE Sodium Chloride 1,000 mls @ 999 mls/hr 08/15/18 18:38 08/15/18 19:45 Sodium Chloride 0.9% 1000 Ml IV 08/15/18 19:38 Infused .Q1H1M STA Infusion Sodium Chloride Confirm 08/15/18 18:38 Sodium Chloride 0.9% 1000 Ml Administered 08/15/18 18:39 Dose 1,000 mls @ ud .ROUTE .STK-MED ONE Sodium Chloride Confirm 08/15/18 20:14 Sodium Chloride 0.9% 1000 Ml Administered 08/15/18 20:15 Dose 1,000 mls @ ud .ROUTE .STK-MED ONE Insulin Aspart 7 unit 08/15/18 22:07 08/15/18 22:12 Novolog Insulin SQ 08/15/18 22:08 7 unit STAT ONE Administration Insulin Aspart Confirm 08/15/18 22:11 Novolog Insulin Administered 08/15/18 22:12 Dose 7 unit .ROUTE .STK-MED ONE Morphine Sulfate 8 mg 08/15/18 18:22 08/15/18 18:28 Morphine Sulfate 10 Mg/Ml IV 08/15/18 18:23 8 mg STAT ONE Administration Morphine Sulfate Confirm 08/15/18 18:26 Morphine Sulfate 10 Mg/Ml Administered 08/15/18 18:27 Dose 10 mg .ROUTE .STK-MED ONE Promethazine HCl 25 mg 08/15/18 17:56 08/15/18 18:05 Phenergan 25 Mg Inj IV 08/15/18 17:57 25 mg STAT ONE Administration Promethazine HCl Confirm 08/15/18 18:04 Phenergan 25 Mg Inj Administered 08/15/18 18:05 Dose 25 mg .ROUTE .STK-MED ONE Lab/Rad Data: Laboratory Result Diagrams 08/15/18 18:28 08/15/18 18:28 Laboratory Results 08/15/18 08/15/18 08/15/18 Range/Units 21:30 21:30 20:15 WBC (4.0-10.5) K/mm3 RBC (4.1-5.6) M/mm3 Hgb (12.5-18.0) gm/dl Hct (42-50) % MCV (78-100) fl MCH (26-32) pg MCHC (32-36) g/dl RDW (11.5-14.0) % Plt Count (150-450) K/mm3 MPV (6-9.5) fl Gran % (36.0-66.0) % Eos # (Auto) (0-0.5) Absolute Lymphs (auto) (1.0-4.6) Absolute Monos (auto) (0.0-1.3) Lymphocytes % (24.0-44.0) % Monocytes % (0.0-12.0) % Eosinophils % (0.00-5.0) % Basophils % (0.0-0.4) % Absolute Granulocytes (1.4-6.9) Basophils # (0-0.4) Puncture Site pCO2 (35-45) mmHg pO2 (75-100) mmHg Base Excess (-2.0-2.0) O2 Saturation (94-100) g/dF ABG pH (7.35-7.45) ABG HCO3 (22-28) ABG O2 Sat (Measured) (95-100) % Arnaldo Test A-a Gradient a/A Ratio Hemoglobin Carboxyhemoglobin (0.0-6.9) % THgb Methemoglobin (1.4-1.5) % Potassium (3.5-5.1) Temperature C POC O2 Flow Rate % Sodium (137-145) mmol/L Chloride (98-107) mmol/L Carbon Dioxide (22-30) mmol/L Anion Gap (5-15) MEQ/L BUN (9-20) mg/dL Creatinine (0.66-1.25) mg/dL Estimated GFR ML/MIN Glucose (74-106) mg/dL Lactic Acid 1.6 (0.4-2.0) Calcium (8.4-10.2) mg/dL Urine Color YELLOW (YELLOW) Urine Appearance CLEAR (CLEAR) Urine pH 5.0 (5-6) Ur Specific [place] 1.030 (1.005-1.025) Urine Protein 100 (Negative) Urine Ketones MODERATE (NEGATIVE) Urine Blood MODERATE (0-5) Tomas/ul Urine Nitrite NEGATIVE (NEGATIVE) Urine Bilirubin NEGATIVE (NEGATIVE) Urine Urobilinogen NEGATIVE (0-1) mg/dL Ur Leukocyte Esterase NEGATIVE (NEGATIVE) Urine WBC (Auto) NONE (0-5) /HPF Urine RBC (Auto) 3-5 (0-2) /HPF U Epithel Cells (Auto) NONE (FEW) /HPF Urine Bacteria (Auto) NONE (NEGATIVE) /HPF Urine Mucus (Auto) SLIGHT (NEGATIVE) /HPF Urine Culture Reflexed YES (NO) Urine Glucose >=500 (NEGATIVE) mg/dL Salicylates (2-20) mg/dL Urine Opiates Level POSITIVE (NEGATIVE) Ur Methadone NEGATIVE (NEGATIVE) Acetaminophen (10-30) ug/ml Urine Barbiturates NEGATIVE (NEGATIVE) Ur Phencyclidine (PCP) NEGATIVE (NEGATIVE) Urine Amphetamine POSITIVE (NEGATIVE) U Benzodiazepine Level NEGATIVE (NEGATIVE) Urine Cocaine NEGATIVE (NEGATIVE) Urine Marijuana (THC) POSITIVE (NEGATIVE) Ethyl Alcohol (0-10) mg/dL Group A Strep Antibody (NEGATIVE) 08/15/18 08/15/18 08/15/18 Range/Units 18:28 18:28 18:25 WBC 16.3 H (4.0-10.5) K/mm3 RBC 4.54 (4.1-5.6) M/mm3 Hgb 13.3 (12.5-18.0) gm/dl Hct 39.1 L (42-50) % MCV 86.1 (78-100) fl MCH 29.3 (26-32) pg MCHC 34.0 (32-36) g/dl RDW 12.7 (11.5-14.0) % Plt Count 395 (150-450) K/mm3 MPV 8.4 (6-9.5) fl Gran % 90.8 H (36.0-66.0) % Eos # (Auto) 0.01 (0-0.5) Absolute Lymphs (auto) 0.59 L (1.0-4.6) Absolute Monos (auto) 0.88 (0.0-1.3) Lymphocytes % 3.6 L (24.0-44.0) % Monocytes % 5.4 (0.0-12.0) % Eosinophils % 0.1 (0.00-5.0) % Basophils % 0.1 (0.0-0.4) % Absolute Granulocytes 14.80 H (1.4-6.9) Basophils # 0.02 (0-0.4) Puncture Site LEFT RADIAL pCO2 29 L (35-45) mmHg pO2 102 H (75-100) mmHg Base Excess -4.4 L (-2.0-2.0) O2 Saturation 95.5 (94-100) g/dF ABG pH 7.42 (7.35-7.45) ABG HCO3 18.8 L (22-28) ABG O2 Sat (Measured) 99.3 (95-100) % Arnaldo Test YES A-a Gradient 11 a/A Ratio 0.90 Hemoglobin 14.0 Carboxyhemoglobin 2.7 (0.0-6.9) % THgb Methemoglobin 1.0 L (1.4-1.5) % Potassium 4.4 4.3 (3.5-5.1) Temperature 37.0 C POC O2 Flow Rate 21 % Sodium 138 (137-145) mmol/L Chloride 98 (98-107) mmol/L Carbon Dioxide 18 L (22-30) mmol/L Anion Gap 26.5 H (5-15) MEQ/L BUN 21 H (9-20) mg/dL Creatinine 0.87 (0.66-1.25) mg/dL Estimated GFR > 60.0 ML/MIN Glucose 399 H (74-106) mg/dL Lactic Acid 3.6 H (0.4-2.0) Calcium 9.1 (8.4-10.2) mg/dL Urine Color (YELLOW) Urine Appearance (CLEAR) Urine pH (5-6) Ur Specific [place] (1.005-1.025) Urine Protein (Negative) Urine Ketones (NEGATIVE) Urine Blood (0-5) Tomas/ul Urine Nitrite (NEGATIVE) Urine Bilirubin (NEGATIVE) Urine Urobilinogen (0-1) mg/dL Ur Leukocyte Esterase (NEGATIVE) Urine WBC (Auto) (0-5) /HPF Urine RBC (Auto) (0-2) /HPF U Epithel Cells (Auto) (FEW) /HPF Urine Bacteria (Auto) (NEGATIVE) /HPF Urine Mucus (Auto) (NEGATIVE) /HPF Urine Culture Reflexed (NO) Urine Glucose (NEGATIVE) mg/dL Salicylates (2-20) mg/dL Urine Opiates Level (NEGATIVE) Ur Methadone (NEGATIVE) Acetaminophen (10-30) ug/ml Urine Barbiturates (NEGATIVE) Ur Phencyclidine (PCP) (NEGATIVE) Urine Amphetamine (NEGATIVE) U Benzodiazepine Level (NEGATIVE) Urine Cocaine (NEGATIVE) Urine Marijuana (THC) (NEGATIVE) Ethyl Alcohol < 10 (0-10) mg/dL Group A Strep Antibody (NEGATIVE) 08/15/18 08/15/18 Range/Units 18:15 18:00 WBC (4.0-10.5) K/mm3 RBC (4.1-5.6) M/mm3 Hgb (12.5-18.0) gm/dl Hct (42-50) % MCV (78-100) fl MCH (26-32) pg MCHC (32-36) g/dl RDW (11.5-14.0) % Plt Count (150-450) K/mm3 MPV (6-9.5) fl Gran % (36.0-66.0) % Eos # (Auto) (0-0.5) Absolute Lymphs (auto) (1.0-4.6) Absolute Monos (auto) (0.0-1.3) Lymphocytes % (24.0-44.0) % Monocytes % (0.0-12.0) % Eosinophils % (0.00-5.0) % Basophils % (0.0-0.4) % Absolute Granulocytes (1.4-6.9) Basophils # (0-0.4) Puncture Site pCO2 (35-45) mmHg pO2 (75-100) mmHg Base Excess (-2.0-2.0) O2 Saturation (94-100) g/dF ABG pH (7.35-7.45) ABG HCO3 (22-28) ABG O2 Sat (Measured) (95-100) % Arnaldo Test A-a Gradient a/A Ratio Hemoglobin Carboxyhemoglobin (0.0-6.9) % THgb Methemoglobin (1.4-1.5) % Potassium (3.5-5.1) Temperature C POC O2 Flow Rate % Sodium (137-145) mmol/L Chloride (98-107) mmol/L Carbon Dioxide (22-30) mmol/L Anion Gap (5-15) MEQ/L BUN (9-20) mg/dL Creatinine (0.66-1.25) mg/dL Estimated GFR ML/MIN Glucose (74-106) mg/dL Lactic Acid (0.4-2.0) Calcium (8.4-10.2) mg/dL Urine Color (YELLOW) Urine Appearance (CLEAR) Urine pH (5-6) Ur Specific [place] (1.005-1.025) Urine Protein (Negative) Urine Ketones (NEGATIVE) Urine Blood (0-5) Tomas/ul Urine Nitrite (NEGATIVE) Urine Bilirubin (NEGATIVE) Urine Urobilinogen (0-1) mg/dL Ur Leukocyte Esterase (NEGATIVE) Urine WBC (Auto) (0-5) /HPF Urine RBC (Auto) (0-2) /HPF U Epithel Cells (Auto) (FEW) /HPF Urine Bacteria (Auto) (NEGATIVE) /HPF Urine Mucus (Auto) (NEGATIVE) /HPF Urine Culture Reflexed (NO) Urine Glucose (NEGATIVE) mg/dL Salicylates < 1.0 L (2-20) mg/dL Urine Opiates Level (NEGATIVE) Ur Methadone (NEGATIVE) Acetaminophen < 10 L (10-30) ug/ml Urine Barbiturates (NEGATIVE) Ur Phencyclidine (PCP) (NEGATIVE) Urine Amphetamine (NEGATIVE) U Benzodiazepine Level (NEGATIVE) Urine Cocaine (NEGATIVE) Urine Marijuana (THC) (NEGATIVE) Ethyl Alcohol (0-10) mg/dL Group A Strep Antibody NEGATIVE (NEGATIVE) <LOC [facility]AIN - Last Filed: 08/15/18 19:11> - Progress Progress: improved <DANIEL FITZGERALD - Last Filed: 08/15/18 22:14> - Progress Progress Note: 08/15/18 19:11 Pt care discussed and care transferred to Dr Fitzgerald at 19:00. (LOC F[facility]AIN) 08/15/18 20:59 This is a 32-year-old white male with history of anxiety depression, diabetes type 1, was been in DKA in the past Patient arrives with complaints of vomiting since 2:00 this morning patient states he just doesn't feel well He was initially seen by Dr. Fountain patient has received 3 L of normal saline patient initially with a glucose of 399 on chemistry patient's initial lactate was 3.6 now 1.6 Patient without fevers Physical examination somewhat somnolent and arouses easily and answers questions well oriented to person and place. Head is atraumatic normocephalic. Eyes PERRLA EOMI fundi are unremarkable. Ears TMs are rodríguez and intact bilaterally. Nose is clear. Throat is clear. Neck is supple full range of motion. Lungs are clear. Heart regular rate and rhythm without murmur. Abdomen soft nontender nondistended positive bowel sounds. Extremities full range of motion pulse equal symmetrical 2 over 4. Patient's labs: EKG sinus tachycardia 1 18 bpm normal axis no acute ST or T wave changes. CBC White blood cell 16.3 hemoglobin 13.3 hematocrit 39.1 platelets 395 ABGs pH 7.42 PCO2 29 PO2 102 HCO3 18.8 oxygen saturation 95.5 Chemistry sodium 138 potassium 4.4 chloride 98 bicarbonate 18 BUN 21 creatinine 0.87 glucose 399 Alcohol less than 10 Acetaminophen and salicylate level has been added on. Urine drug screen and urinalysis is not collected and is pending. Impression diabetic ketoacidosis. Patient with elevated lactate which has normalized with IV fluids. Await urinalysis urine drug screen acetaminophen level and salicylate level. Continue to provide normal saline at 150 mL per hour. 08/15/18 22:01 Patient's urinalysis is remarkable for moderate amount of ketones also with the greater than 500 glucose Patient's urine drug screen positive for opiates, amphetamines, marijuana Patient does appear to be slowly improving I've discussed the patient's case with Dr. Jiang Patient's blood sugar currently 298. Will place patient on observation telemetry. Diagnosis diabetic ketoacidosis. Nausea and vomiting. Substance abuse. Will provide telemetry, IV normal saline at 150 mL per hour, moderate sliding scale dose of insulin. Will provide Zofran for nausea vomiting. Patient given NovoLog 7 units subcutaneous in the emergency room 08/15/18 22:13 (DANIEL FITZGERALD) <LOC FOUNTAIN. - Last Filed: 08/15/18 19:11> - Departure Time of Disposition: 22:04 Departure Disposition: Observation Critical Care Time: No <DANIEL FITZGERALDLEY - Last Filed: 08/15/18 22:14> - Departure Clinical Impression: Polysubstance abuse Diabetic ketoacidosis Qualifiers: Diabetes mellitus type: type 1 Diabetes mellitus complication detail: without coma Qualified Code(s): E10.10 - Type 1 diabetes mellitus with ketoacidosis without coma Vomiting Qualifiers: Vomiting type: unspecified Vomiting Intractability: non-intractable Nausea presence: with nausea Qualified Code(s): R11.2 - Nausea with vomiting, unspecified Condition: Fair Referrals: VALENTINA ESPINO [Primary Care Provider] -
[2018-08-15] MEDS ORDERED: Phenergan 25 MG INJ ONE (18:04)
[2018-08-15] MEDS ORDERED: Sodium Chloride 0.9% 1000 ML 1,000 ML ONE ×3 (18:04→20:14)
[2018-08-15] MEDS ORDERED: MORPHINE SULFATE 10 MG/ML IV ONE (18:22)
[2018-08-15] MEDS ORDERED: MORPHINE SULFATE 10 MG/ML ONE (18:26)
[2018-08-15 18:27] LABS: A-aADO2 11; ABG POTASSIUM 4.3 (3.5-5.1); ABG SITE LEFT RADIAL; ALLEN TEST OK? YES; ARTERIAL BLD GAS O2 SATURATION 99.3 % (95-100); ARTERIAL BLOOD GAS BASE EXCESS -4.4 (-2.0-2.0); ARTERIAL BLOOD GAS FIO2 21 %; ARTERIAL BLOOD GAS PCO2 29 mmHg (35-45); ARTERIAL BLOOD GAS PO2 102 mmHg (75-100); ARTERIAL BLOOD GAS pH 7.42 (7.35-7.45); CARBOXYHEMOGLOBIN 2.7 % THgb (0.0-6.9); HCO3- 18.8 (22-28); HGB O2 SAT 95.5 g/dF (94-100); Lactic Acid 3.6 (0.4-2.0)
[2018-08-15 18:31] LABS: BASOPHIL % 0.1 % (0.0-0.4); Basophil (Absolute #) 0.02 (0-0.4); Eosinophil % 0.1 % (0.00-5.0); Eosinophil (Absolute #) 0.01 (0-0.5); Granulocytes % 90.8 % (36.0-66.0); Hematocrit 39.1 % (42-50); Hemoglobin 13.3 gm/dl (12.5-18.0); Lymphocyte (Absolute #) 0.59 (1.0-4.6); Lymphocytes % 3.6 % (24.0-44.0); Mean Cell Volume 86.1 fl (78-100); Mean Corpuscular Hemoglobin 29.3 pg (26-32); Mean Platelet Volume 8.4 fl (6-9.5); Monocyte (Absolute #) 0.88 (0.0-1.3); Monocytes % 5.4 % (0.0-12.0); Platelet Count 395 K/mm3 (150-450); Red Blood Count 4.54 M/mm3 (4.1-5.6); Red Cell Distribution Width 12.7 % (11.5-14.0); White Blood Count 16.3 K/mm3 (4.0-10.5)
[2018-08-15 18:43] LABS: ANION GAP 26.5 MEQ/L (5-15); BLOOD UREA NITROGEN 21 mg/dL (9-20); CHLORIDE 98 mmol/L (98-107); Calcium 9.1 mg/dL (8.4-10.2); Carbon Dioxide 18 mmol/L (22-30); Creatinine 1 0.87 mg/dL (0.66-1.25); Glucose 399 mg/dL (74-106); Potassium 4.4 mmol/L (3.5-5.1); SODIUM 138 mmol/L (137-145)
[2018-08-15 18:49] LABS: ETHYL ALCOHOL < 10 mg/dL (0-10)
[2018-08-15] MEDS ORDERED: Sodium Chloride 0.9% 1000 ML 1,000 ML IV SCH (20:30)
[2018-08-15 21:00] LABS: ACETAMINOPHEN < 10 ug/ml (10-30); SALICYLATE < 1.0 mg/dL (2-20)
[2018-08-15 21:43] LABS: Appearance CLEAR (CLEAR); Bilirubin NEGATIVE (NEGATIVE); Blood MODERATE Ery/ul (0-5); Glucose >=500 mg/dL (NEGATIVE); Ketones MODERATE (NEGATIVE); Leukocyte Esterase NEGATIVE (NEGATIVE); Nitrite NEGATIVE (NEGATIVE); Protein,Urine Dip 100 (Negative); Urobilinogen NEGATIVE mg/dL (0-1)
[2018-08-15 21:54] LABS: Amphetamine,Urine POSITIVE (NEGATIVE); Barbiturate,Urine NEGATIVE (NEGATIVE); Benzodiazepine,Urine NEGATIVE (NEGATIVE); Cocaine,Urine NEGATIVE (NEGATIVE); Methadone,Urine NEGATIVE (NEGATIVE); Opiate,Urine POSITIVE (NEGATIVE); PCP,Urine NEGATIVE (NEGATIVE); THC,Urine POSITIVE (NEGATIVE)
[2018-08-15] MEDS ORDERED: NovoLOG Insulin SQ ONE (22:07)
[2018-08-15] MEDS ORDERED: NovoLOG Insulin ONE (22:11)
[2018-08-16] MEDS: Sodium Chloride 0.9% 1000 ML 1,000 ML IV SCH ×4 (02:55→22:33)
[2018-08-16 05:58] LABS: BASOPHIL % 0.2 % (0.0-0.4); Basophil (Absolute #) 0.03 (0-0.4); Eosinophil % 0.6 % (0.00-5.0); Eosinophil (Absolute #) 0.07 (0-0.5); Granulocyte Absolute (ANC) 9.61 (1.4-6.9); Granulocytes % 76.3 % (36.0-66.0); Hematocrit 34.2 % (42-50); Hemoglobin 11.5 gm/dl (12.5-18.0); Lymphocyte (Absolute #) 1.26 (1.0-4.6); Mean Corpuscular Hgb Concent. 33.6 g/dl (32-36); Mean Platelet Volume 8.2 fl (6-9.5); Monocyte (Absolute #) 1.63 (0.0-1.3); Monocytes % 12.9 % (0.0-12.0); Platelet Count 374 K/mm3 (150-450); Red Blood Count 3.93 M/mm3 (4.1-5.6); Red Cell Distribution Width 12.8 % (11.5-14.0); White Blood Count 12.6 K/mm3 (4.0-10.5)
[2018-08-16 06:09] LABS: ALBUMIN 3.5 g/dL (3.5-5.0); ALKALINE PHOSPHATASE 106 U/L (38-126); ANION GAP 12.9 MEQ/L (5-15); BLOOD UREA NITROGEN 17 mg/dL (9-20); CHLORIDE 105 mmol/L (98-107); Calcium 8.4 mg/dL (8.4-10.2); Carbon Dioxide 28 mmol/L (22-30); Creatinine 1 0.81 mg/dL (0.66-1.25); Glucose 140 mg/dL (74-106); Potassium 3.9 mmol/L (3.5-5.1); SGOT/AST 23 U/L (17-59); SGPT/ALT 23 U/L (0-50); SODIUM 141 mmol/L (137-145); Total Protein 6.3 g/dL (6.3-8.2)
[2018-08-16 06:11] LABS: Mean Corpuscular Hemoglobin 29.2 pg (26-32)
[2018-08-16] MEDS: Zofran 4 MG/2 ML VIAL IV PRN ×3 (06:19→23:55)
[2018-08-16 08:02] LABS: Slide Review 1 YES
[2018-08-16 09:56] LABS: AMYLASE 118 U/L (30-110); LIPASE 142 U/L (23-300)
[2018-08-16] MEDS: Lantus Insulin SQ SCH (11:37)
[2018-08-16] MEDS: NovoLOG Insulin SQ SCH ×2 (11:37→16:13)
[2018-08-16] MEDS: NovoLIN R SQ PRN ×3 (13:02→23:44)
--- NOTE | 2018-08-16 13:26 | XRAY ---
Indication: Abdomen pain, nausea, and vomiting. Patient under the influence and not fully answering questions. Multiple contiguous axial images obtained through the abdomen and pelvis without contrast as ordered. Comparison: June 03, 2018. Lung bases are clear. Heart is not enlarged. Stable small hiatal hernia. Noncontrasted stomach and bowel loops appear nonobstructed. Normal appendix. No free fluid/air. Remaining liver, gallbladder, pancreas, spleen, adrenal glands, kidneys, ureters, bladder, and aorta appear unremarkable for noncontrast exam. Osseous structures intact again with bilateral L5 spondylolysis without spondylolisthesis. Impression: 1. Stable small hiatal hernia and L5 spondylolysis without spinal listhesis. 2. No new or acute intra-abdominal/pelvic abnormalities on this noncontrast exam. CTDI 15.44
[2018-08-16] MEDS: Phenergan 25 MG INJ IV PRN (13:59)
[2018-08-17] MEDS: Sodium Chloride 0.9% 1000 ML 1,000 ML IV SCH ×3 (05:14→16:57)
[2018-08-17] MEDS: NovoLOG Insulin SQ SCH ×3 (07:50→16:58)
[2018-08-17] MEDS: Lantus Insulin SQ SCH (07:51)
[2018-08-17] MEDS: NovoLIN R SQ PRN ×3 (08:06→20:48)
[2018-08-17] MEDS: Phenergan 25 MG INJ IV PRN ×2 (08:10→17:04)
[2018-08-17] MEDS ORDERED: NON-FORMULARY ITEM (Insulin Glargine,Hum.Rec.Anlog [Basaglar Kwikpen U-100] 20 UNIT) SQ SCH (10:00)
[2018-08-17] MEDS: ENOXAPARIN SODIUM SQ SCH (11:31)
[2018-08-17] MEDS: Zofran 4 MG/2 ML VIAL IV PRN ×2 (12:23→20:48)
[2018-08-18] MEDS: Sodium Chloride 0.9% 1000 ML 1,000 ML IV SCH ×2 (00:21→07:39)
[2018-08-18] MEDS: Zofran 4 MG/2 ML VIAL IV PRN (07:49)
--- NOTE | 2018-08-18 07:49 | HP ---
CHIEF COMPLAINT: Nausea and vomiting, history of diabetes mellitus type 1. HISTORY OF PRESENT ILLNESS: The patient is a 32 year-old white male patient with the above problems. He reports he has been vomiting for the past couple days but no diarrhea. The nurses have noted that the patient is frequently admitted to the hospital for the same and takes two or three days for the nausea and vomiting to clear. The patient also admits to having done methamphetamine and he is also positive for opiates and THC in his urine drug screen as well. PAST MEDICAL/SURGICAL HISTORY: MEDICATIONS: Insulin 5 units t.i.d. and Basaglar 20 units daily. He takes no other prescription medications. ALLERGIES: NKDA. PHYSICAL EXAMINATION: On evaluation in the emergency room the patient was found to be dehydrated and despite 2 liters of IV fluids and anti-emetics. The patient continued to feel bad. He was therefore felt to need to be admitted to the hospital for further evaluation and management. His vital signs on admission showed a temperature 97.7F, pulse 110, respiratory rate 18, blood pressure 173/104. O2 saturation 98% on room air. HEENT: Normocephalic, atraumatic. Pupils equal round reactive to light. Extraocular movements intact. Oropharynx is dry. NECK: Supple without lymphadenopathy, thyromegaly or JVD. CHEST: Clear to auscultation. HEART: Regular rate and rhythm. ABDOMEN: Diffusely tender but no palpable masses were felt. No guarding or rebound. There is a large emesis bag next to him full of bilious material approximately 500 cc. EXTREMITIES: Without clubbing, cyanosis or edema. NEUROLOGIC: The patient is alert and oriented x3. LAB DATA AND TESTS: Again include the urine drug screen positive for methamphetamines, opiates and THC. His urine otherwise showed greater than 500 glucose, 3 to 5 red blood cells, specific gravity 1.030. He had a group strep performed which was negative. Acetaminophen level and salicylate levels were negative. Lactic acid 1.6. His blood gas showed a pH of 7.42 with pCO2 of 29, pO2 102. His glucose was noted to be at 399, BUN 21, creatinine 0.87. Electrolytes were normal. CO2 slightly low at 18. His white blood cell count was 16,300, hemoglobin 13.3, PLT count 395,000. He had evaluations with CT scan of the abdomen which showed no acute changes compared to 01/03/2018 and 06/05/2018. ASSESSMENT: A patient with nausea and vomiting, probable diabetic gastroparesis. He has been admitted for IV fluid hydration. His sugars were elevated and he had a mild decrease in his bicarb. His pH was normal. We treated him with IV fluids and insulin on a moderate dose sliding scale coverage. By the next morning his sugar was down to 140. His BUN 17, creatinine 0.81. Electrolytes were all normal including his potassium at 3.9 and CO2 up to 28. The patient will continue to receive IV fluids and antiemetic until he resolves his nausea and vomiting at which time we will advance his diet to clear liquids. He is on IV Protonix as well presently.
[2018-08-18] MEDS: Lantus Insulin SQ SCH (08:15)
[2018-08-18] MEDS: NovoLOG Insulin SQ SCH ×2 (08:18→12:22)
[2018-08-18 08:35] LABS: ALBUMIN 3.1 g/dL (3.5-5.0); ALKALINE PHOSPHATASE 108 U/L (38-126); ANION GAP 13.6 MEQ/L (5-15); BLOOD UREA NITROGEN 8 mg/dL (9-20); CHLORIDE 98 mmol/L (98-107); Calcium 8.2 mg/dL (8.4-10.2); Carbon Dioxide 25 mmol/L (22-30); Creatinine 1 0.67 mg/dL (0.66-1.25); Glucose 306 mg/dL (74-106); Potassium 4.1 mmol/L (3.5-5.1); SGOT/AST 21 U/L (17-59); SGPT/ALT 19 U/L (0-50); SODIUM 133 mmol/L (137-145); Total Protein 5.7 g/dL (6.3-8.2)
--- NOTE | 2018-08-18 10:42 | PCM.DS ---
Discharge Summary Date of Admission: 08/15/18 22:30 Date of Discharge: 08/18/2018 Admitting Physician: VALENTINA QUINONES Primary Care Provider: VALENTINA QUINONES Allergies Allergies No Known Drug Allergies Allergy (Verified 04/03/18 21:22) Hospital Summary - Hospital Course Hospital Course: Mr. Gustafson has history of difficulty to control type 1 diabetes complicated by his illiteracy. He presented with uncontrolled vomiting and elevated blood sugars after using methamphetamine. He has history of amphetamine abuse but had been clean for some time but was getting frustrated and depressed at times and decided to use again. He doesn't plan to restart. He was treated with insulin and iv fluids and sugars improved and his symptoms improved. He was tolerating po and wanting to go home. He does state he has insurance now but is out of all his supplies for testing and giving insulin. He has been having difficulty making it to outpatient follow up appointments. We discussed strategies to get him into the health care and will set up f/u appointment that is scheduled already with Dr. Quinones on 08/27 he is highly encouraged to keep this appointment. - Vitals & Intake/Output Vital Signs: Vital Signs Temperature 97.8 F 08/18/18 08:00 Pulse Rate 81 08/18/18 08:00 Respiratory Rate 20 08/18/18 08:00 Blood Pressure 133/81 08/18/18 08:00 O2 Sat by Pulse Oximetry 95 08/18/18 08:00 Intake & Output: Intake & Output 08/15/18 08/16/18 08/17/18 08/18/18 11:59 11:59 11:59 11:59 Intake Total 2305 4230 5490 Output Total 450 2375 5350 Balance 1855 1855 140 Weight 66.3 kg 71.2 kg 71 kg - Lab Result Diagrams: 08/16/18 05:46 08/18/18 05:45 Lab Results-Last 24 Hrs: Accuchecks Date 08/18/18 Date 08/17/18 Date 08/17/18 Date 08/17/18 Time 20:15 Time 16:37 Time 12:19 Accucheck Value: 295 Accucheck Value: 224 Accucheck Value: 69 Accucheck Value: 267 Lab Results-Last 24 Hours 08/18/18 Range/Units 05:45 Sodium 133 L D (137-145) mmol/L Potassium 4.1 (3.5-5.1) mmol/L Chloride 98 (98-107) mmol/L Carbon Dioxide 25 (22-30) mmol/L Anion Gap 13.6 (5-15) MEQ/L BUN 8 L (9-20) mg/dL Creatinine 0.67 (0.66-1.25) mg/dL Estimated GFR > 60.0 ML/MIN Glucose 306 H (74-106) mg/dL Calcium 8.2 L (8.4-10.2) mg/dL Total Bilirubin 0.80 (0.2-1.3) mg/dL AST 21 (17-59) U/L ALT 19 (0-50) U/L Alkaline Phosphatase 108 (38-126) U/L Serum Total Protein 5.7 L (6.3-8.2) g/dL Albumin 3.1 L (3.5-5.0) g/dL Micro Results-Entire Visit: Microbiology 08/15/18 20:22 Blood Culture - Preliminary Blood NO GROWTH TO DATE 08/15/18 18:15 Blood Culture - Preliminary Blood NO GROWTH TO DATE 08/15/18 21:30 Urine Culture - Final Clean Catch Midstream NO GROWTH Accuchecks Date 08/18/18 Date 08/17/18 Date 08/17/18 Date 08/17/18 Time 20:15 Time 16:37 Time 12:19 Accucheck Value: 295 Accucheck Value: 224 Accucheck Value: 69 Accucheck Value: 267 Discharge Exam General Appearance: no apparent distress, alert Neurologic Exam: alert, oriented x 3, cooperative, normal mood/affect, nml cerebellar function, sensation nml, No motor deficits Skin Exam: normal color, warm, dry Eye Exam: PERRL, EOMI, eyes nml inspection Ears, Nose, Throat Exam: normal ENT inspection, pharynx normal, moist mucous membranes Neck Exam: normal inspection, non-tender, supple, full range of motion Respiratory Exam: normal breath sounds, lungs clear, No respiratory distress Cardiovascular Exam: regular rate/rhythm, normal heart sounds Gastrointestinal/Abdomen Exam: soft, No tenderness, No mass Extremity Exam: normal inspection, normal range of motion Back Exam: normal inspection, normal range of motion, No CVA tenderness, No vertebral tenderness Male Genitalia Exam: deferred Rectal Exam: deferred Final Diagnosis/Problem List - Final Discharge Diagnosis/Problem (1) Uncontrolled diabetes mellitus Current Visit: Yes Status: Acute (2) Diabetes mellitus type I Current Visit: Yes Status: Chronic Onset Date: ~05/30/18 (3) Polysubstance abuse Current Visit: Yes Status: Chronic (4) Vomiting Current Visit: Yes Status: Resolved Onset Date: ~05/30/18 (5) Illiteracy Current Visit: Yes Status: Chronic - Discharge Discharge Date: 08/18/18 Disposition: Home, Self-Care Condition: Fair Prescriptions: New Blood-Glucose Meter [Accu-Chek Priyanka Plus] 1 each QID #1 each Lancets [Accu-Chek Softclix] 1 each MC QID #120 each Lancing Device/Lancets [Accu-Check Softclix Lancet Kit] 1 each QID #1 kit Blood Sugar Diagnostic [Blood Glucose Test Strip] 1 each QID #120 strip Pen Needle, Diabetic [Pen Victoria] 1 each MC QID #120 dis.needle Continue Insulin Glargine,Hum.rec.anlog [Basaglar Kwikpen U-100] 20 unit SQ DAILY #5 insuln.pen Insulin Aspart [NovoLOG Insulin] 5 unit SQ TIDAC #5 pens Instructions: Diabetic Ketoacidosis (DC) Follow up with: VALENTINA QUINONES [Primary Care Provider] - 08/27/18 11:15 am Forms: Patient Portal Information
[2018-08-18] MEDS: ENOXAPARIN SODIUM SQ SCH (10:52)
[2018-08-18] MEDS: NovoLIN R SQ PRN (12:27)
[2018-08-18 12:46] VITALS: BP 160/98; PULSE 85; O2SAT 98
== END 2018-08-18 13:00 | disposition home or self-care (01) ==
LOC: ED 17:40 → MED SURG 22:30
PROVIDERS: ADMIT Family Medicine; ATTEND Family Medicine
DX: E10.649 Type 1 diabetes mellitus with hypoglycemia without coma (principal); F19.10 Other psychoactive substance abuse, uncomplicated; Z55.0 Illiteracy and low-level literacy; E86.0 Dehydration; R11.2 Nausea with vomiting, unspecified; Z79.4 Long term (current) use of insulin
CPT/HCPCS: 36000; 36415; 36600; 74176; 80048; 80053; 80307; 81001; 82150; 82375; 82803; 82962; 83036; 83605; 83690; 85025; 87040; 87086; 87651; 93005; 93041; 94760; 96360; 96372; 96374; 96375; 99285; G0480; G0481; 93268; 96361; J1650; J2270; J2405; J2550; A9270-GY; G0378

== ENCOUNTER 2018-09-13 20:44 | Observation (INO) | payer OTHER ==
[2018-09-13] MEDS ORDERED: Sodium Chloride 0.9% 1000 ML 1,000 ML IV STA (21:08)
[2018-09-13] MEDS ORDERED: Zofran 4 MG/2 ML VIAL IV ONE (21:08)
--- NOTE | 2018-09-13 21:08 | ERPHSYRPT ---
- History of Present Illness Time Seen by Provider: 09/13/18 21:00 Source: patient Exam Limitations: no limitations Physician History: 32 y/o diabetic white male known to us in this ED. pt has frequent episodes of vomiting, dehydration and dka. pt is severely noncompliant Timing/Duration: day(s) (over several days) Severity: moderate Associated Symptoms: nausea, vomiting, abdominal pain, No cough, No chest pain, No headaches Allergies/Adverse Reactions: No Known Drug Allergies Allergy (Verified 04/03/18 21:22) Hx Tetanus, Diphtheria Vaccination/Date Given: Yes Hx Influenza Vaccination/Date Given: No Hx Pneumococcal Vaccination/Date Given: No - Review of Systems Constitutional: Malaise Eyes: No Symptoms Ears, Nose, & Throat: No Symptoms Respiratory: No Symptoms, No Cough, No Dyspnea, No Stridor, No Wheezing Cardiac: No Symptoms, No Chest Pain, No Palpitations, No Syncope Abdominal/Gastrointestinal: Abdominal Pain (mild diffuse), Nausea, Vomiting, No Diarrhea Genitourinary Symptoms: No Symptoms, No Dysuria, No Frequency, No Hematuria Musculoskeletal: No Symptoms, Back Pain, Deformity Skin: No Symptoms Neurological: No Symptoms Psychological: No Symptoms Endocrine: No Symptoms Hematologic/Lymphatic: No Symptoms Immunological/Allergic: No Symptoms All Other Systems: Reviewed and Negative - Past Medical History Pertinent Past Medical History: Yes Neurological History: No Pertinent History ENT History: No Pertinent History Cardiac History: No Pertinent History Respiratory History: No Pertinent History Endocrine Medical History: Diabetes Type I Musculoskeletal History: No Pertinent History GI Medical History: No Pertinent History History: No Pertinent History Psycho-Social History: Anxiety, Depression Male Reproductive Disorders: No Pertinent History Other Medical History: DKA. pt not answering questions well, states, "I don't know right now". Pt has eyes closed, appears to be sleeping. recalled from previous admission - Past Surgical History Past Surgical History: No Neuro Surgical History: No Pertinent History Cardiac: No Pertinent History Respiratory: No Pertinent History Gastrointestinal: No Pertinent History Genitourinary: No Pertinent History Musculoskeletal: No Pertinent History Male Surgical History: No Pertinent History Other Surgical History: pt not answering questions well. has eyes closed, appears to be sleeping. recalled from previous admission - Social History Smoking Status: Never smoker Exposure to second hand smoke: No Drug Use: marijuana, methamphetamines Patient Lives Alone: No - Nursing Vital Signs Nursing Vital Signs: Initial Vital Signs Temperature 98.1 F 09/13/18 21:03 Pulse Rate 115 H 09/13/18 21:03 Respiratory Rate 16 09/13/18 21:03 Blood Pressure 143/105 09/13/18 21:03 O2 Sat by Pulse Oximetry 100 09/13/18 21:03 Pain Scale Pain Intensity 8 - Physical Exam General Appearance: mild distress, alert Eye Exam: PERRL/EOMI, eyes nml inspection Ears, Nose, Throat Exam: dry mucous membranes Neck Exam: normal inspection, non-tender, supple, full range of motion Respiratory Exam: normal breath sounds, lungs clear, airway intact, No chest tenderness, No respiratory distress, No accessory muscle use, No rhonchi, No wheezing, No stridor Cardiovascular Exam: regular rate/rhythm, normal heart sounds, normal peripheral pulses Gastrointestinal/Abdomen Exam: soft, normal bowel sounds, tenderness (mild diffuse), No guarding, No rebound Rectal Exam: not done Back Exam: normal inspection, normal range of motion, No CVA tenderness, No vertebral tenderness Extremity Exam: normal inspection, normal range of motion, pelvis stable Neurologic Exam: alert, oriented x 3, 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, 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 as tested Skin Exam: normal color, warm, dry Lymphatic Exam: No adenopathy SpO2 Interpretation: normal O2 Delivery: Room Air - Course Nursing assessment & vital signs reviewed: Yes Ordered Tests: Active Orders 24 hr Category Date Time Status Blending Tank Helper STAT Care 09/13/18 21:09 Active Clean Catch Urine Specimen STAT Care 09/13/18 21:08 Active IV Insertion STAT Care 09/13/18 21:08 Active Pulse Oximetry (ED) STAT Care 09/13/18 21:08 Active CBC W DIFF Stat Lab 09/13/18 21:57 Completed CMP Stat Lab 09/13/18 21:57 Completed UA W/RFX UR CULTURE Stat Lab 09/13/18 22:26 Completed Transfer Order Routine Transfer 09/14/18 Ordered Medication Summary Discontinued Medications Generic Name Dose Route Start Last Admin Trade Name Freq PRN Reason Stop Dose Admin Sodium Chloride 1,000 mls @ 999 mls/hr 09/13/18 21:08 09/14/18 02:47 Sodium Chloride 0.9% 1000 Ml IV 09/13/18 22:08 Infused .Q1H1M STA Infusion Sodium Chloride Confirm 09/13/18 22:11 Sodium Chloride 0.9% 1000 Ml Administered 09/13/18 22:12 Dose 1,000 mls @ ud .ROUTE .STK-MED ONE Sodium Chloride Confirm 09/13/18 23:52 Sodium Chloride 0.9% 1000 Ml Administered 09/13/18 23:53 Dose 1,000 mls @ ud .ROUTE .STK-MED ONE Sodium Chloride 1,000 mls @ 999 mls/hr 09/14/18 00:10 09/14/18 02:48 Sodium Chloride 0.9% 1000 Ml IV 09/14/18 01:10 Infused .Q1H1M STA Infusion Ondansetron HCl 4 mg 09/13/18 21:08 09/13/18 22:57 Zofran 4 Mg/2 Ml Vial IV 09/13/18 21:09 4 mg STAT ONE Administration Ondansetron HCl Confirm 09/13/18 22:11 Zofran 4 Mg/2 Ml Vial Administered 09/13/18 22:12 Dose 4 mg .ROUTE .STK-MED ONE Promethazine HCl 12.5 mg 09/13/18 21:43 09/13/18 22:01 Phenergan 25 Mg Inj IM 09/13/18 21:44 12.5 mg STAT ONE Administration Promethazine HCl Confirm 09/13/18 21:59 Phenergan 25 Mg Inj Administered 09/13/18 22:00 Dose 25 mg .ROUTE .STK-MED ONE Promethazine HCl 12.5 mg 09/14/18 00:46 09/14/18 00:58 Phenergan 25 Mg Inj IM 09/14/18 00:47 12.5 mg STAT ONE Administration Promethazine HCl Confirm 09/14/18 00:57 Phenergan 25 Mg Inj Administered 09/14/18 00:58 Dose 25 mg .ROUTE .STK-MED ONE Lab/Rad Data: Laboratory Result Diagrams 09/13/18 21:57 09/13/18 21:57 Laboratory Results 09/13/18 09/13/18 09/13/18 Range/Units 22:26 21:57 21:57 WBC 3.9 L (4.0-10.5) K/mm3 RBC 4.79 (4.1-5.6) M/mm3 Hgb 14.0 (12.5-18.0) gm/dl Hct 39.7 L (42-50) % MCV 82.9 (78-100) fl MCH 29.2 (26-32) pg MCHC 35.3 (32-36) g/dl RDW 12.3 (11.5-14.0) % Plt Count 307 (150-450) K/mm3 MPV 8.6 (6-9.5) fl Gran % 68.3 H (36.0-66.0) % Eos # (Auto) 0.03 (0-0.5) Absolute Lymphs (auto) 0.42 L (1.0-4.6) Absolute Monos (auto) 0.76 (0.0-1.3) Lymphocytes % 10.9 L (24.0-44.0) % Monocytes % 19.7 H (0.0-12.0) % Eosinophils % 0.8 (0.00-5.0) % Basophils % 0.3 (0.0-0.4) % Absolute Granulocytes 2.63 (1.4-6.9) Basophils # 0.01 (0-0.4) Sodium 132 L (137-145) mmol/L Potassium 4.3 (3.5-5.1) mmol/L Chloride 87 L (98-107) mmol/L Carbon Dioxide 28 (22-30) mmol/L Anion Gap 20.9 H (5-15) MEQ/L BUN 31 H (9-20) mg/dL Creatinine 1.01 (0.66-1.25) mg/dL Estimated GFR > 60.0 ML/MIN Glucose 325 H (74-106) mg/dL Calcium 9.0 (8.4-10.2) mg/dL Total Bilirubin 0.80 (0.2-1.3) mg/dL AST 45 (17-59) U/L ALT 30 (0-50) U/L Alkaline Phosphatase 139 H (38-126) U/L Serum Total Protein 7.5 (6.3-8.2) g/dL Albumin 4.1 (3.5-5.0) g/dL Urine Color YURIY (YELLOW) Urine Appearance CLOUDY (CLEAR) Urine pH 5.0 (5-6) Ur Specific [place] 1.023 (1.005-1.025) Urine Protein >=500 (Negative) Urine Ketones SMALL (NEGATIVE) Urine Blood NEGATIVE (0-5) Tomas/ul Urine Nitrite NEGATIVE (NEGATIVE) Urine Bilirubin NEGATIVE (NEGATIVE) Urine Urobilinogen 2 (0-1) mg/dL Ur Leukocyte Esterase NEGATIVE (NEGATIVE) Urine WBC (Auto) 3-5 (0-5) /HPF Urine RBC (Auto) 3-5 (0-2) /HPF U Hyaline Cast (Auto) 0-2 (0-2) /LPF U Epithel Cells (Auto) NONE (FEW) /HPF Urine Bacteria (Auto) NONE (NEGATIVE) /HPF Amorphous Crystals FEW (NEGATIVE) /HPF Urine Mucus (Auto) SLIGHT (NEGATIVE) /HPF Urine Culture Reflexed NO (NO) Urine Glucose >=500 (NEGATIVE) mg/dL - Progress Progress: improved, re-examined Progress Note: 09/14/18 02:43 improving but slowly. spoke with dr. castaneda. i reviewed pt hx, condition, lab results with him. he accepts pt for observation Will see patient in: hospital (observation) Counseled pt/family regarding: lab results, diagnosis - Departure Time of Disposition: 02:45 Departure Disposition: Observation Clinical Impression: DKA (diabetic ketoacidoses), Vomiting, Dehydration Condition: Stable Critical Care Time: Yes Critical Care Time(excluding separately billable procedures): 30-74 minutes Referrals: DOCTOR,NO FAMILY [Primary Care Provider] -
[2018-09-13] MEDS ORDERED: Phenergan 25 MG INJ IM ONE (21:43)
[2018-09-13] MEDS ORDERED: Phenergan 25 MG INJ ONE (21:59)
[2018-09-13 22:01] LABS: BASOPHIL % 0.3 % (0.0-0.4); Basophil (Absolute #) 0.01 (0-0.4); Eosinophil % 0.8 % (0.00-5.0); Eosinophil (Absolute #) 0.03 (0-0.5); Granulocyte Absolute (ANC) 2.63 (1.4-6.9); Granulocytes % 68.3 % (36.0-66.0); Hematocrit 39.7 % (42-50); Lymphocyte (Absolute #) 0.42 (1.0-4.6); Lymphocytes % 10.9 % (24.0-44.0); Mean Cell Volume 82.9 fl (78-100); Mean Corpuscular Hemoglobin 29.2 pg (26-32); Mean Corpuscular Hgb Concent. 35.3 g/dl (32-36); Mean Platelet Volume 8.6 fl (6-9.5); Monocyte (Absolute #) 0.76 (0.0-1.3); Monocytes % 19.7 % (0.0-12.0); Platelet Count 307 K/mm3 (150-450); Red Blood Count 4.79 M/mm3 (4.1-5.6); Red Cell Distribution Width 12.3 % (11.5-14.0); White Blood Count 3.9 K/mm3 (4.0-10.5)
[2018-09-13] MEDS ORDERED: Sodium Chloride 0.9% 1000 ML 1,000 ML ONE ×2 (22:11→23:52)
[2018-09-13] MEDS ORDERED: Zofran 4 MG/2 ML VIAL ONE (22:11)
[2018-09-13 22:19] LABS: ALBUMIN 4.1 g/dL (3.5-5.0); ALKALINE PHOSPHATASE 139 U/L (38-126); ANION GAP 20.9 MEQ/L (5-15); BLOOD UREA NITROGEN 31 mg/dL (9-20); CHLORIDE 87 mmol/L (98-107); Carbon Dioxide 28 mmol/L (22-30); Creatinine 1 1.01 mg/dL (0.66-1.25); Glucose 325 mg/dL (74-106); Potassium 4.3 mmol/L (3.5-5.1); SGOT/AST 45 U/L (17-59); SGPT/ALT 30 U/L (0-50); SODIUM 132 mmol/L (137-145); Total Protein 7.5 g/dL (6.3-8.2)
[2018-09-13 23:16] LABS: Amourphous Crystal FEW /HPF (NEGATIVE); Appearance CLOUDY (CLEAR); Bilirubin NEGATIVE (NEGATIVE); Blood NEGATIVE Ery/ul (0-5); Glucose >=500 mg/dL (NEGATIVE); Hyaline Casts 0-2 /LPF (0-2); Ketones SMALL (NEGATIVE); Leukocyte Esterase NEGATIVE (NEGATIVE); Mucus SLIGHT /HPF (NEGATIVE); Nitrite NEGATIVE (NEGATIVE); Protein,Urine Dip >=500 (Negative); Specific Gravity 1.023 (1.005-1.025); Urobilinogen 2 mg/dL (0-1)
[2018-09-14] MEDS ORDERED: Sodium Chloride 0.9% 1000 ML 1,000 ML IV STA (00:10)
[2018-09-14] MEDS ORDERED: Phenergan 25 MG INJ IM ONE (00:46)
[2018-09-14] MEDS ORDERED: Phenergan 25 MG INJ ONE (00:57)
[2018-09-14] MEDS: Sodium Chloride 0.9% 1000 ML 1,000 ML IV SCH ×2 (03:45→17:21)
[2018-09-14 06:19] LABS: BASOPHIL % 0.2 % (0.0-0.4); Basophil (Absolute #) 0.01 (0-0.4); Eosinophil % 0.2 % (0.00-5.0); Eosinophil (Absolute #) 0.01 (0-0.5); Granulocyte Absolute (ANC) 2.94 (1.4-6.9); Granulocytes % 72.2 % (36.0-66.0); Hematocrit 38.4 % (42-50); Lymphocyte (Absolute #) 0.36 (1.0-4.6); Lymphocytes % 8.8 % (24.0-44.0); Mean Cell Volume 85.7 fl (78-100); Mean Corpuscular Hgb Concent. 33.9 g/dl (32-36); Monocyte (Absolute #) 0.76 (0.0-1.3); Monocytes % 18.6 % (0.0-12.0); Platelet Count 277 K/mm3 (150-450); Red Blood Count 4.48 M/mm3 (4.1-5.6); Red Cell Distribution Width 12.3 % (11.5-14.0); White Blood Count 4.1 K/mm3 (4.0-10.5)
[2018-09-14 06:28] LABS: ALBUMIN 3.6 g/dL (3.5-5.0); ALKALINE PHOSPHATASE 118 U/L (38-126); ANION GAP 21.8 MEQ/L (5-15); BLOOD UREA NITROGEN 32 mg/dL (9-20); CHLORIDE 89 mmol/L (98-107); Calcium 8.2 mg/dL (8.4-10.2); Carbon Dioxide 27 mmol/L (22-30); Potassium 4.9 mmol/L (3.5-5.1); SGOT/AST 47 U/L (17-59); SGPT/ALT 29 U/L (0-50); SODIUM 133 mmol/L (137-145); Total Protein 6.5 g/dL (6.3-8.2)
[2018-09-14 06:30] LABS: Glucose 568 mg/dL (74-106)
[2018-09-14] MEDS ORDERED: NovoLIN R IV ONE ×2 (06:50→07:11)
[2018-09-14] MEDS: NovoLOG Insulin SQ SCH ×3 (06:58→16:30)
[2018-09-14 07:06] LABS: Slide Review 1 YES
[2018-09-14] MEDS: Zofran 4 MG/2 ML VIAL IV PRN ×2 (08:40→17:25)
[2018-09-14] MEDS: NovoLIN R SQ PRN ×3 (08:43→22:21)
[2018-09-14] MEDS ORDERED: Sodium Chloride 0.9% 1000 ML 1,000 ML IV SCH (10:45)
[2018-09-14 11:11] LABS: AMYLASE 41 U/L (30-110); LIPASE 20 U/L (23-300)
[2018-09-14 11:58] LABS: INFLUENZA A POSITIVE (NEGATIVE); INFLUENZA B NEGATIVE (NEGATIVE); RESPIRATORY SYNCTIAL VIRUS NEGATIVE (Negative)
[2018-09-14] MEDS: Phenergan 25 MG INJ IV PRN ×2 (13:29→22:28)
[2018-09-14] MEDS: Lantus Insulin SQ SCH (22:22)
[2018-09-15] MEDS: Sodium Chloride 0.9% 1000 ML 1,000 ML IV SCH ×3 (00:36→13:56)
[2018-09-15] MEDS: NovoLIN R SQ PRN (00:36)
[2018-09-15 06:20] LABS: ALKALINE PHOSPHATASE 94 U/L (38-126); ANION GAP 10.5 MEQ/L (5-15); BLOOD UREA NITROGEN 13 mg/dL (9-20); CHLORIDE 97 mmol/L (98-107); Calcium 7.9 mg/dL (8.4-10.2); Carbon Dioxide 30 mmol/L (22-30); Glucose 104 mg/dL (74-106); Potassium 3.7 mmol/L (3.5-5.1); SGOT/AST 38 U/L (17-59); SGPT/ALT 22 U/L (0-50); SODIUM 134 mmol/L (137-145); Total Protein 5.9 g/dL (6.3-8.2)
--- NOTE | 2018-09-15 08:55 | PCM.NOTE ---
Date and Time: 09/15/18 0851 Subjective Assessment: Pt still nauseated and vomiting over night, but feels better than at admission. Cough started 2d ago. denies abd pain. - Review of Systems Abdominal/Gastrointestinal: Nausea, Vomiting Objective Exam General Appearance: alert, other (closes eyes at times through exam) Neurologic Exam: oriented x 3, cooperative Skin Exam: normal color, warm, dry, No rash Ears, Nose, Throat Exam: moist mucous membranes Neck Exam: normal inspection Respiratory Exam: normal breath sounds, lungs clear, No crackles/rales, No rhonchi, No wheezing Cardiovascular Exam: regular rate/rhythm, normal heart sounds, No murmur Gastrointestinal/Abdomen Exam: soft, No normal bowel sounds (hypoactive), No tenderness, No distention, No mass, No guarding, No rebound Extremity Exam: No pedal edema, No swelling OBJECTIVE DATA Vital Signs: Vital Signs - 24 hr Temp Pulse Resp BP Pulse Ox 09/15/18 07:24 98.4 F 96 H 18 136/91 98 09/15/18 04:00 99.1 F 93 H 18 130/89 96 09/15/18 00:00 98.3 F 94 H 18 143/87 95 09/14/18 20:00 98.6 F 91 H 19 156/101 95 09/14/18 16:00 98.7 F 96 H 18 134/82 98 09/14/18 11:50 97.9 F 98 H 16 141/92 97 Oxygen-Last 24 hours O2 Percentage 1 Liter = 24% Pain Assessment - Last Documented Pain Intensity 8 Pain Scale Used 0-10 Pain Scale Intake and Output: Intake & Output 09/12/18 09/13/18 09/14/18 09/15/18 11:59 11:59 11:59 11:59 Intake Total 360 1380 Output Total 1150 3900 Balance -790 -2520 Weight 66.8 kg 66.5 kg Lab Results: Accuchecks Date 09/15/18 Date 09/15/18 Date 09/14/18 Date 09/14/18 Time 04:00 Time 00:00 Time 20:00 Time 16:30 Accucheck Value: 140 Accucheck Value: 186 Accucheck Value: 176 Accucheck Value: 55 Lab Results-Last 24 Hours 09/14/18 09/14/18 09/15/18 Range/Units 05:30 11:19 05:20 Sodium 134 L (137-145) mmol/L Potassium 3.7 D (3.5-5.1) mmol/L Chloride 97 L (98-107) mmol/L Carbon Dioxide 30 (22-30) mmol/L Anion Gap 10.5 (5-15) MEQ/L BUN 13 (9-20) mg/dL Creatinine 0.70 (0.66-1.25) mg/dL Estimated GFR > 60.0 ML/MIN Glucose 104 (74-106) mg/dL Calcium 7.9 L (8.4-10.2) mg/dL Total Bilirubin 0.50 (0.2-1.3) mg/dL AST 38 (17-59) U/L ALT 22 (0-50) U/L Alkaline Phosphatase 94 (38-126) U/L Serum Total Protein 5.9 L (6.3-8.2) g/dL Albumin 3.0 L (3.5-5.0) g/dL Amylase 41 (30-110) U/L Lipase 20 L (23-300) U/L Influenza Type A Ag POSITIVE (NEGATIVE) Influenza Type B Ag NEGATIVE (NEGATIVE) RSV (PCR) NEGATIVE (Negative) Assessment/Plan (1) Influenza A Current Visit: Yes Status: Acute Assessment & Plan: will start tamiflu, only because he says the cough started 2d ago. however he may not be able to tolerate th epill po Code(s): J10.1 - FLU DUE TO OTH IDENT INFLUENZA VIRUS W OTH RESP MANIFEST (2) Dehydration Current Visit: Yes Status: Resolved Onset Date: ~09/14/18 Code(s): E86.0 - DEHYDRATION (3) Vomiting Current Visit: Yes Status: Acute Onset Date: ~09/14/18 Qualifiers: Vomiting type: cyclical vomiting Vomiting Intractability: intractable Nausea presence: with nausea Qualified Code(s): G43.A1 - Cyclical vomiting, intractable Assessment & Plan: expect pt to start feeling better in the next day or two and then would d/c him to home Code(s): R11.10 - VOMITING, UNSPECIFIED (4) Diabetes mellitus type I Current Visit: No Status: Chronic Onset Date: ~05/30/18 Qualifiers: Diabetes mellitus complication status: without complication Qualified Code( s): E10.9 - Type 1 diabetes mellitus without complications (5) Polysubstance abuse Current Visit: No Status: Chronic Assessment & Plan: UDS not done on this admission Code(s): F19.10 - OTHER PSYCHOACTIVE SUBSTANCE ABUSE, UNCOMPLICATED
[2018-09-15] MEDS: NovoLOG Insulin SQ SCH ×3 (08:56→17:12)
[2018-09-15] MEDS: Tamiflu 75MG Capsule PO SCH ×2 (09:50→22:52)
--- NOTE | 2018-09-15 11:21 | HP ---
CHIEF COMPLAINT: Vomiting, abdominal pain, dehydration, history of diabetes mellitus type 1. HISTORY OF PRESENT ILLNESS: This is a 32 year-old white male patient who reports he began having problems with episodes of vomiting. He became ill a few days ago. He had been around other friends who had apparently swabbed positive for influenza within 48 hours since he has been sick at this point. PAST MEDICAL/SURGICAL HISTORY: The patient is noted to be very noncompliant on his usual medical therapies as he has frequent admissions to our hospital for problems with hyperglycemia and at times diabetic ketoacidosis. PHYSICAL EXAMINATION: Vital signs on admission showed temperature 98.1F, pulse 115, respiratory rate 16, blood pressure 143/105. O2 saturation 100% on room air. HEENT: Normocephalic, atraumatic. Pupils equal round reactive to light. Oropharynx is dry. NECK: Supple without lymphadenopathy, thyromegaly or JVD. CHEST: Clear to auscultation. HEART: Regular rate and rhythm without murmurs, rubs or gallops. ABDOMEN: Diffusely tender. No palpable masses were felt. No guarding or rebound. EXTREMITIES: Without clubbing, cyanosis or edema. NEUROLOGIC: The patient is alert and oriented x3. No focal deficits are noted. LAB DATA AND TESTS: Showed his urine to be mary and cloudy, specific gravity 1.023 with greater than 100 protein and greater than 100 glucose, small ketones. CBC was entirely normal. White count 7,400, hemoglobin 13.9, PLT count 260,000. His sugar was 325, BUN 31, creatinine 1.01. Sodium slightly low at 132. Liver enzymes were normal. The patient's bicarb specifically was noted to be within normal range at 28. ASSESSMENT: The patient is currently taking insulin at home on sliding scale coverage. I have instructed otherwise switch to coverage protocol but he has been ignoring this and he is not currently taking long acting insulin. The patient has been admitted to the hospital. He was given 2 liters IV fluid initially in the emergency room and he still appears to be dry. We have bumped up his IV fluids here to try to get him rehydrated. He is feeling somewhat better and able to at least take sips of liquids at this time with no recent emesis. We will monitor his sugars closely with moderate dose sliding scale coverage and sugar checks every four hours. He will receive Zofran and/or Phenergan for nausea and vomiting.
[2018-09-15] MEDS: Lantus Insulin SQ SCH (22:51)
[2018-09-15] MEDS: Zofran 4 MG/2 ML VIAL IV PRN (23:17)
[2018-09-16] MEDS: Sodium Chloride 0.9% 1000 ML 1,000 ML IV SCH ×2 (03:22→10:19)
--- NOTE | 2018-09-16 09:01 | PCM.DS ---
Discharge Summary Date of Admission: 09/14/18 03:27 Admitting Physician: VALENTINA ESPINO Primary Care Provider: VALENTINA ESPINO Allergies Allergies No Known Drug Allergies Allergy (Verified 04/03/18 21:22) Hospital Summary - Hospital Course Hospital Course: He is "feeling OK I guess" - tolerating po better (still on CLD). no vomiting. Cough kept him up all night last night. - Vitals & Intake/Output Vital Signs: Vital Signs Temperature 98.3 F 09/16/18 08:00 Pulse Rate 81 09/16/18 08:00 Respiratory Rate 18 09/16/18 08:00 Blood Pressure 140/95 09/16/18 08:00 O2 Sat by Pulse Oximetry 97 09/16/18 08:00 Oxygen-Last Documented O2 Percentage 1 Liter = 24% Intake & Output: Intake & Output 09/13/18 09/14/18 09/15/18 09/16/18 11:59 11:59 11:59 11:59 Intake Total 360 1620 4976 Output Total 1150 3900 2650 Balance -790 -2280 2326 Weight 66.8 kg 66.5 kg 69.6 kg - Lab Result Diagrams: 09/14/18 05:40 09/15/18 05:20 Lab Results-Last 24 Hrs: Accuchecks Date 09/16/1809/16/1809/16/18 Time 04:00 Time 00:00 Time 20:00 Accucheck Value: 65 Accucheck Value: 136 Accucheck Value: 76 Accucheck Value: 108 Accucheck Value: 150 Micro Results-Entire Visit: Accuchecks Date 09/16/1809/16/1809/16/18 Time 04:00 Time 00:00 Time 20:00 Accucheck Value: 65 Accucheck Value: 136 Accucheck Value: 76 Accucheck Value: 108 Accucheck Value: 150 Discharge Exam General Appearance: no apparent distress, alert Neurologic Exam: oriented x 3, cooperative Skin Exam: normal color, warm, dry, No rash Respiratory Exam: normal breath sounds, lungs clear, No crackles/rales, No rhonchi, No wheezing Cardiovascular Exam: regular rate/rhythm, normal heart sounds, No murmur Gastrointestinal/Abdomen Exam: soft, normal bowel sounds, No tenderness, No distention Extremity Exam: No pedal edema, No swelling Back Exam: normal inspection, No rash Final Diagnosis/Problem List - Final Discharge Diagnosis/Problem (1) Influenza A Current Visit: Yes Status: Acute Onset Date: ~09/14/18 Assessment & Plan: on tamiflu, unsure when he contracted the virus. finish course at home. (2) Dehydration Current Visit: Yes Status: Resolved Onset Date: ~09/14/18 (3) Vomiting Current Visit: Yes Status: Resolved Onset Date: ~09/14/18 Assessment & Plan: will advance diet, if he tolerates it well ok to d/c home. (4) Diabetes mellitus type I Current Visit: No Status: Chronic Onset Date: ~05/30/18 Assessment & Plan: he is to see me in f/u at least one time after this hospitalization, despite his bill at the office. He will cover any higher BS with ss insulin. (5) Polysubstance abuse Current Visit: No Status: Chronic Assessment & Plan: denies any use prior to this hospitalization. - Discharge Disposition: Home, Self-Care Condition: Good Prescriptions: New Oseltamivir 75 mg [Tamiflu 75MG Capsule] 75 mg PO BID #8 cap Continue Insulin Glargine,Hum.rec.anlog [Basaglar Kwikpen U-100] 20 unit SQ DAILY #5 insuln.pen Insulin Aspart [NovoLOG Insulin] 5 unit SQ TIDAC #5 pens Follow up with: VALENTINA ESPINO [Primary Care Provider] - 1 Week
[2018-09-16] MEDS: Tamiflu 75MG Capsule PO SCH (10:16)
[2018-09-16] MEDS: NovoLOG Insulin SQ SCH ×2 (10:17→12:02)
[2018-09-16 11:40] VITALS: BP 149/99; PULSE 74; O2SAT 96
== END 2018-09-16 13:45 | disposition home or self-care (01) ==
LOC: ED 20:44 → MED SURG 09-14 03:27
PROVIDERS: ADMIT Family Medicine; ATTEND Family Medicine
DX: J09.X2 Influenza due to identified novel influenza A virus with other respiratory manifestations (principal); E86.0 Dehydration; E10.9 Type 1 diabetes mellitus without complications; R11.2 Nausea with vomiting, unspecified; F19.10 Other psychoactive substance abuse, uncomplicated; R10.9 Unspecified abdominal pain
CPT/HCPCS: 36000; 36415; 80053; 81001; 82150; 82962; 83690; 85025; 87631; 93041; 96360; 96361; 96372; 96374; 99285; G0378; J2405; J2550; A9270-GY

== ENCOUNTER 2018-11-17 15:46 | Emergency (ER) | payer OTHER, SELFPAY ==
--- NOTE | 2018-11-17 16:14 | ERPHSYRPT ---
- History of Present Illness Time Seen by Provider: 11/17/18 16:04 Historian: patient, other (mother) Exam Limitations: no limitations Patient Subjective Stated Complaint: vomiting due to using meth Triage Nursing Assessment: Pt states that he did meth 2 days ago and it has caused him to begin vomiting, reports that this has happened before after using meth, P 125, BP 149/99, afebrile, rates pain 8/10 in abdomen, unknown when he last ate anything, has been drinking water Physician History: Pt and his mother state, he started vomiting at 1 AM today, vomited several times, denies diarrhea, fever, chills, cough, cold symptoms, or chest pain. He used Meth 2 days ago, had DKA multiple times. He denies vomiting blood or coffee ground material, no bloody or black stool. Timing/Duration: hour(s) (14) Activities at Onset: none Quality: cramping Abdominal Pain Onset Location: generalized abdomen Pain Radiation: no radiation Severity of Pain-Max: mild Severity of Pain-Current: mild Modifying Factors: Improves With: nothing Associated Symptoms: fatigue, nausea, vomiting Previous symptoms: same symptoms as today Allergies/Adverse Reactions: No Known Drug Allergies Allergy (Verified 11/17/18 16:03) Hx Tetanus, Diphtheria Vaccination/Date Given: Yes Hx Influenza Vaccination/Date Given: No Hx Pneumococcal Vaccination/Date Given: No - Review of Systems Constitutional: Fatigue Eyes: No Symptoms Ears, Nose, & Throat: No Symptoms Respiratory: No Symptoms Cardiac: No Symptoms Abdominal/Gastrointestinal: Abdominal Pain, Nausea, Vomiting Genitourinary Symptoms: No Symptoms Musculoskeletal: No Symptoms Skin: No Symptoms Neurological: No Symptoms All Other Systems: Reviewed and Negative - Past Medical History Pertinent Past Medical History: Yes Neurological History: No Pertinent History ENT History: No Pertinent History Cardiac History: No Pertinent History Respiratory History: No Pertinent History Endocrine Medical History: Diabetes Type I Musculoskeletal History: No Pertinent History GI Medical History: No Pertinent History History: No Pertinent History Psycho-Social History: Anxiety, Depression Male Reproductive Disorders: No Pertinent History Other Medical History: DKA - Past Surgical History Past Surgical History: No Neuro Surgical History: No Pertinent History Cardiac: No Pertinent History Respiratory: No Pertinent History Gastrointestinal: No Pertinent History Genitourinary: No Pertinent History Musculoskeletal: No Pertinent History Male Surgical History: No Pertinent History Other Surgical History: pt not answering questions well. has eyes closed, appears to be sleeping. recalled from previous admission - Social History Smoking Status: Never smoker Exposure to second hand smoke: Yes Drug Use: marijuana, methamphetamines Patient Lives Alone: No - Nursing Vital Signs Nursing Vital Signs: Initial Vital Signs Temperature 97.4 F 11/17/18 15:53 Pulse Rate 125 H 11/17/18 15:53 Blood Pressure 149/99 11/17/18 15:53 O2 Sat by Pulse Oximetry 100 11/17/18 15:53 Pain Scale Pain Intensity 8 - Physical Exam General Appearance: mild distress Eye Exam: eyes nml inspection Ears, Nose, Throat Exam: normal ENT inspection, pharynx normal, moist mucous membranes Neck Exam: normal inspection, non-tender, supple, No JVD Respiratory Exam: normal breath sounds, lungs clear, airway intact Cardiovascular Exam: regular rate/rhythm, normal peripheral pulses, tachycardia , No murmur Gastrointestinal/Abdomen Exam: soft, tenderness, distention, No rebound, No organomegaly Back Exam: normal inspection Extremity Exam: normal inspection Neurologic Exam: alert, oriented x 3, normal mood/affect Skin Exam: normal color, warm, dry, No rash Lymphatic Exam: No adenopathy SpO2 Interpretation: normal SpO2: 100 O2 Delivery: Room Air - Course Nursing assessment & vital signs reviewed: Yes - CT Exams Abdomen/Pelvis CT Interpretation: Negative, Tele-radiologist Report Ordered Tests: Active Orders 24 hr Category Date Time Status IV Insertion STAT Care 11/17/18 16:07 Active ABDOMEN AND PELVIS W/0 CONTRAS [CT] Stat Exams 11/17/18 19:02 Taken ARTERIAL BLOOD GASES Urgent Lab 11/17/18 16:09 Completed CBC W DIFF Stat Lab 11/17/18 16:30 Completed CMP Stat Lab 11/17/18 16:30 Completed CULTURE,URINE Stat Lab 11/17/18 20:30 Received LIPASE Stat Lab 11/17/18 16:30 Completed Lactic Acid Stat Lab 11/17/18 16:07 Completed MAGNESIUM Stat Lab 11/17/18 16:30 Completed PROTIME WITH INR Stat Lab 11/17/18 16:30 Completed UA W/RFX UR CULTURE Stat Lab 11/17/18 20:30 Completed Urine Triage Profile Stat Lab 11/17/18 20:30 Completed Medication Summary Discontinued Medications Generic Name Dose Route Start Last Admin Trade Name Freq PRN Reason Stop Dose Admin Sodium Chloride 1,000 mls @ 999 mls/hr 11/17/18 16:07 11/17/18 18:39 Sodium Chloride 0.9% 1000 Ml IV 11/17/18 17:07 Infused .Q1H1M STA Infusion Sodium Chloride Confirm 11/17/18 17:15 Sodium Chloride 0.9% 1000 Ml Administered 11/17/18 17:16 Dose 1,000 mls @ ud .ROUTE .STK-MED ONE Sodium Chloride 1,000 mls @ 999 mls/hr 11/17/18 18:41 11/17/18 20:49 Sodium Chloride 0.9% 1000 Ml IV 11/17/18 19:41 Infused .Q1H1M STA Infusion Sodium Chloride Confirm 11/17/18 18:57 Sodium Chloride 0.9% 1000 Ml Administered 11/17/18 18:58 Dose 1,000 mls @ ud .ROUTE .STK-MED ONE Lorazepam 1 mg 11/17/18 19:35 Ativan 2 Mg/1 Ml Vial IV 11/17/18 19:36 STAT ONE Metoclopramide HCl 10 mg 11/17/18 16:09 11/17/18 17:19 Reglan 10 Mg/2 Ml IV 11/17/18 16:10 10 mg STAT ONE Administration Metoclopramide HCl Confirm 11/17/18 17:15 Reglan 10 Mg/2 Ml Administered 11/17/18 17:16 Dose 10 mg .ROUTE .STK-MED ONE Lab/Rad Data: Laboratory Result Diagrams 11/17/18 16:30 11/17/18 16:30 Laboratory Results 11/17/18 11/17/18 11/17/18 Range/Units 20:30 20:30 16:30 WBC (4.0-10.5) K/mm3 RBC (4.1-5.6) M/mm3 Hgb (12.5-18.0) gm/dl Hct (42-50) % MCV (78-100) fl MCH (26-32) pg MCHC (32-36) g/dl RDW (11.5-14.0) % Plt Count (150-450) K/mm3 MPV (6-9.5) fl Gran % (36.0-66.0) % Eos # (Auto) (0-0.5) Absolute Lymphs (auto) (1.0-4.6) Absolute Monos (auto) (0.0-1.3) Lymphocytes % (24.0-44.0) % Monocytes % (0.0-12.0) % Eosinophils % (0.00-5.0) % Basophils % (0.0-0.4) % Absolute Granulocytes (1.4-6.9) Basophils # (0-0.4) PT 11.2 (8.83-12.87) SECONDS INR 0.96 (0.8-3.0) Puncture Site pCO2 (35-45) mmHg pO2 (75-100) mmHg Base Excess (-2.0-2.0) O2 Saturation (94-100) g/dF ABG pH (7.35-7.45) ABG HCO3 (22-28) ABG O2 Sat (Measured) (95-100) % Arnaldo Test A-a Gradient a/A Ratio Hemoglobin Carboxyhemoglobin (0.0-6.9) % THgb Methemoglobin (1.4-1.5) % Potassium (3.5-5.1) Temperature C POC O2 Flow Rate % Sodium (137-145) mmol/L Chloride (98-107) mmol/L Carbon Dioxide (22-30) mmol/L Anion Gap (5-15) MEQ/L BUN (9-20) mg/dL Creatinine (0.66-1.25) mg/dL Estimated GFR ML/MIN Glucose (74-106) mg/dL Lactic Acid (0.4-2.0) Calcium (8.4-10.2) mg/dL Magnesium (1.6-2.3) mg/dL Total Bilirubin (0.2-1.3) mg/dL AST (17-59) U/L ALT (0-50) U/L Alkaline Phosphatase (38-126) U/L Serum Total Protein (6.3-8.2) g/dL Albumin (3.5-5.0) g/dL Lipase (23-300) U/L Urine Color YELLOW (YELLOW) Urine Appearance SLIGHTLY CLOUDY (CLEAR) Urine pH 7.0 (5-6) Ur Specific [place] 1.025 (1.005-1.025) Urine Protein >=500 (Negative) Urine Ketones MODERATE (NEGATIVE) Urine Blood SMALL (0-5) Tomas/ul Urine Nitrite NEGATIVE (NEGATIVE) Urine Bilirubin NEGATIVE (NEGATIVE) Urine Urobilinogen NEGATIVE (0-1) mg/dL Ur Leukocyte Esterase NEGATIVE (NEGATIVE) Urine WBC (Auto) 3-5 (0-5) /HPF Urine RBC (Auto) 6-10 (0-2) /HPF U Hyaline Cast (Auto) 0-2 (0-2) /LPF U Epithel Cells (Auto) NONE (FEW) /HPF Urine Bacteria (Auto) NONE (NEGATIVE) /HPF Urine Mucus (Auto) SLIGHT (NEGATIVE) /HPF Urine Culture Reflexed YES (NO) Urine Glucose >=500 (NEGATIVE) mg/dL Urine Opiates Level NEGATIVE (NEGATIVE) Ur Methadone NEGATIVE (NEGATIVE) Urine Barbiturates NEGATIVE (NEGATIVE) Ur Phencyclidine (PCP) NEGATIVE (NEGATIVE) Urine Amphetamine POSITIVE (NEGATIVE) U Benzodiazepine Level NEGATIVE (NEGATIVE) Urine Cocaine NEGATIVE (NEGATIVE) Urine Marijuana (THC) NEGATIVE (NEGATIVE) Slides for Path Review 11/17/18 11/17/18 11/17/18 Range/Units 16:30 16:30 16:09 WBC 18.0 H (4.0-10.5) K/mm3 RBC 5.31 (4.1-5.6) M/mm3 Hgb 15.2 (12.5-18.0) gm/dl Hct 43.9 (42-50) % MCV 82.7 (78-100) fl MCH 28.6 (26-32) pg MCHC 34.6 (32-36) g/dl RDW 12.7 (11.5-14.0) % Plt Count 486 H (150-450) K/mm3 MPV 8.5 (6-9.5) fl Gran % 82.4 H (36.0-66.0) % Eos # (Auto) 0.01 (0-0.5) Absolute Lymphs (auto) 0.96 L (1.0-4.6) Absolute Monos (auto) 2.17 H (0.0-1.3) Lymphocytes % 5.3 L (24.0-44.0) % Monocytes % 12.1 H (0.0-12.0) % Eosinophils % 0.1 (0.00-5.0) % Basophils % 0.1 (0.0-0.4) % Absolute Granulocytes 14.81 H (1.4-6.9) Basophils # 0.02 (0-0.4) PT (8.83-12.87) SECONDS INR (0.8-3.0) Puncture Site RIGHT BRACHIAL pCO2 39 (35-45) mmHg pO2 85 (75-100) mmHg Base Excess 9.1 H (-2.0-2.0) O2 Saturation 95.6 (94-100) g/dF ABG pH 7.53 H (7.35-7.45) ABG HCO3 32.6 H* (22-28) ABG O2 Sat (Measured) 98.0 (95-100) % Arnaldo Test NOT APPLICABLE A-a Gradient 16 a/A Ratio 0.84 Hemoglobin 15.4 Carboxyhemoglobin 1.3 (0.0-6.9) % THgb Methemoglobin 1.1 L (1.4-1.5) % Potassium 3.7 3.7 (3.5-5.1) Temperature 37.0 C POC O2 Flow Rate 21 % Sodium 142 (137-145) mmol/L Chloride 94 L (98-107) mmol/L Carbon Dioxide 32 H (22-30) mmol/L Anion Gap 19.2 H (5-15) MEQ/L BUN 29 H (9-20) mg/dL Creatinine 1.25 (0.66-1.25) mg/dL Estimated GFR > 60.0 ML/MIN Glucose 95 (74-106) mg/dL Lactic Acid (0.4-2.0) Calcium 11.1 H (8.4-10.2) mg/dL Magnesium 2.0 (1.6-2.3) mg/dL Total Bilirubin 1.20 (0.2-1.3) mg/dL AST 30 (17-59) U/L ALT 26 (0-50) U/L Alkaline Phosphatase 146 H (38-126) U/L Serum Total Protein 10.0 H (6.3-8.2) g/dL Albumin 5.2 H (3.5-5.0) g/dL Lipase 112 (23-300) U/L Urine Color (YELLOW) Urine Appearance (CLEAR) Urine pH (5-6) Ur Specific [place] (1.005-1.025) Urine Protein (Negative) Urine Ketones (NEGATIVE) Urine Blood (0-5) Tomas/ul Urine Nitrite (NEGATIVE) Urine Bilirubin (NEGATIVE) Urine Urobilinogen (0-1) mg/dL Ur Leukocyte Esterase (NEGATIVE) Urine WBC (Auto) (0-5) /HPF Urine RBC (Auto) (0-2) /HPF U Hyaline Cast (Auto) (0-2) /LPF U Epithel Cells (Auto) (FEW) /HPF Urine Bacteria (Auto) (NEGATIVE) /HPF Urine Mucus (Auto) (NEGATIVE) /HPF Urine Culture Reflexed (NO) Urine Glucose (NEGATIVE) mg/dL Urine Opiates Level (NEGATIVE) Ur Methadone (NEGATIVE) Urine Barbiturates (NEGATIVE) Ur Phencyclidine (PCP) (NEGATIVE) Urine Amphetamine (NEGATIVE) U Benzodiazepine Level (NEGATIVE) Urine Cocaine (NEGATIVE) Urine Marijuana (THC) (NEGATIVE) Slides for Path Review YES 11/17/18 Range/Units 16:07 WBC (4.0-10.5) K/mm3 RBC (4.1-5.6) M/mm3 Hgb (12.5-18.0) gm/dl Hct (42-50) % MCV (78-100) fl MCH (26-32) pg MCHC (32-36) g/dl RDW (11.5-14.0) % Plt Count (150-450) K/mm3 MPV (6-9.5) fl Gran % (36.0-66.0) % Eos # (Auto) (0-0.5) Absolute Lymphs (auto) (1.0-4.6) Absolute Monos (auto) (0.0-1.3) Lymphocytes % (24.0-44.0) % Monocytes % (0.0-12.0) % Eosinophils % (0.00-5.0) % Basophils % (0.0-0.4) % Absolute Granulocytes (1.4-6.9) Basophils # (0-0.4) PT (8.83-12.87) SECONDS INR (0.8-3.0) Puncture Site pCO2 (35-45) mmHg pO2 (75-100) mmHg Base Excess (-2.0-2.0) O2 Saturation (94-100) g/dF ABG pH (7.35-7.45) ABG HCO3 (22-28) ABG O2 Sat (Measured) (95-100) % Arnaldo Test A-a Gradient a/A Ratio Hemoglobin Carboxyhemoglobin (0.0-6.9) % THgb Methemoglobin (1.4-1.5) % Potassium (3.5-5.1) Temperature C POC O2 Flow Rate % Sodium (137-145) mmol/L Chloride (98-107) mmol/L Carbon Dioxide (22-30) mmol/L Anion Gap (5-15) MEQ/L BUN (9-20) mg/dL Creatinine (0.66-1.25) mg/dL Estimated GFR ML/MIN Glucose (74-106) mg/dL Lactic Acid 1.2 (0.4-2.0) Calcium (8.4-10.2) mg/dL Magnesium (1.6-2.3) mg/dL Total Bilirubin (0.2-1.3) mg/dL AST (17-59) U/L ALT (0-50) U/L Alkaline Phosphatase (38-126) U/L Serum Total Protein (6.3-8.2) g/dL Albumin (3.5-5.0) g/dL Lipase (23-300) U/L Urine Color (YELLOW) Urine Appearance (CLEAR) Urine pH (5-6) Ur Specific [place] (1.005-1.025) Urine Protein (Negative) Urine Ketones (NEGATIVE) Urine Blood (0-5) Tomas/ul Urine Nitrite (NEGATIVE) Urine Bilirubin (NEGATIVE) Urine Urobilinogen (0-1) mg/dL Ur Leukocyte Esterase (NEGATIVE) Urine WBC (Auto) (0-5) /HPF Urine RBC (Auto) (0-2) /HPF U Hyaline Cast (Auto) (0-2) /LPF U Epithel Cells (Auto) (FEW) /HPF Urine Bacteria (Auto) (NEGATIVE) /HPF Urine Mucus (Auto) (NEGATIVE) /HPF Urine Culture Reflexed (NO) Urine Glucose (NEGATIVE) mg/dL Urine Opiates Level (NEGATIVE) Ur Methadone (NEGATIVE) Urine Barbiturates (NEGATIVE) Ur Phencyclidine (PCP) (NEGATIVE) Urine Amphetamine (NEGATIVE) U Benzodiazepine Level (NEGATIVE) Urine Cocaine (NEGATIVE) Urine Marijuana (THC) (NEGATIVE) Slides for Path Review - Progress Progress: improved Progress Note: 11/17/18 21:20 Pt stopped vomiting, improved, denies nausea, afebrile, he was given 2000 ml NS , Reglan iv, reviewed his CT and lab results with his mother, he is being discharged in good condition to rest x 2-3 days, drink plenty of fluids, and take Zofran ODT 4 mg as needed, follow up with his physician in 2-3 days. Counseled pt/family regarding: lab results, diagnosis, need for follow-up, rad results - Departure Departure Disposition: Home Clinical Impression: Gastroparesis Vomiting Qualifiers: Vomiting type: cyclical vomiting Vomiting Intractability: non-intractable Nausea presence: with nausea Qualified Code(s): G43.A0 - Cyclical vomiting, not intractable Condition: Stable Critical Care Time: No Referrals: VALENTINA ESPINO [Primary Care Provider] - Instructions: Vomiting -- Adult Additional Instructions: Rest x 2-3 days, drink plenty of fluids, and follow up with your physician, return if severe pain, vomiting, fever> 102 F! Prescriptions: Ondansetron ODT 4 MG [Zofran Odt 4 mg] 4 mg PO Q6H PRN PRN #10 tab.rapdis PRN Reason: Nausea/Vomiting
[2018-11-17 16:43] LABS: BASOPHIL % 0.1 % (0.0-0.4); Basophil (Absolute #) 0.02 (0-0.4); Eosinophil % 0.1 % (0.00-5.0); Eosinophil (Absolute #) 0.01 (0-0.5); Granulocyte Absolute (ANC) 14.81 (1.4-6.9); Granulocytes % 82.4 % (36.0-66.0); Hematocrit 43.9 % (42-50); Hemoglobin 15.2 gm/dl (12.5-18.0); Lymphocyte (Absolute #) 0.96 (1.0-4.6); Lymphocytes % 5.3 % (24.0-44.0); Mean Cell Volume 82.7 fl (78-100); Mean Corpuscular Hemoglobin 28.6 pg (26-32); Mean Corpuscular Hgb Concent. 34.6 g/dl (32-36); Mean Platelet Volume 8.5 fl (6-9.5); Monocyte (Absolute #) 2.17 (0.0-1.3); Monocytes % 12.1 % (0.0-12.0); Platelet Count 486 K/mm3 (150-450); Red Blood Count 5.31 M/mm3 (4.1-5.6); Red Cell Distribution Width 12.7 % (11.5-14.0)
[2018-11-17 16:56] LABS: INR 0.96 (0.8-3.0); PROTIME 11.2 SECONDS (8.83-12.87)
[2018-11-17 17:01] LABS: ALBUMIN 5.2 g/dL (3.5-5.0); ALKALINE PHOSPHATASE 146 U/L (38-126); ANION GAP 19.2 MEQ/L (5-15); BLOOD UREA NITROGEN 29 mg/dL (9-20); CHLORIDE 94 mmol/L (98-107); Calcium 11.1 mg/dL (8.4-10.2); Carbon Dioxide 32 mmol/L (22-30); Creatinine 1 1.25 mg/dL (0.66-1.25); Glucose 95 mg/dL (74-106); LIPASE 112 U/L (23-300); Potassium 3.7 mmol/L (3.5-5.1); SGOT/AST 30 U/L (17-59); SGPT/ALT 26 U/L (0-50); SODIUM 142 mmol/L (137-145)
[2018-11-17] MEDS ORDERED: Sodium Chloride 0.9% 1000 ML 1,000 ML ONE ×2 (17:15→18:57)
[2018-11-17] MEDS ORDERED: Reglan 10 MG/2 ML ONE (17:15)
[2018-11-17 17:16] LABS: A-aADO2 16; ABG HEMOGLOBIN 15.4; ABG POTASSIUM 3.7 (3.5-5.1); ABG SITE RIGHT BRACHIAL; ARTERIAL BLOOD GAS BASE EXCESS 9.1 (-2.0-2.0); ARTERIAL BLOOD GAS FIO2 21 %; ARTERIAL BLOOD GAS PCO2 39 mmHg (35-45); ARTERIAL BLOOD GAS PO2 85 mmHg (75-100); ARTERIAL BLOOD GAS pH 7.53 (7.35-7.45); CARBOXYHEMOGLOBIN 1.3 % THgb (0.0-6.9); HCO3- 32.6 (22-28); HGB O2 SAT 95.6 g/dF (94-100); Methhemoglobin 1.1 % (1.4-1.5); paO2 pAO1 0.84
[2018-11-17] MEDS: Sodium Chloride 0.9% 1000 ML 1,000 ML IV STA ×2 (17:18→19:09)
[2018-11-17] MEDS: Reglan 10 MG/2 ML IV ONE (17:19)
[2018-11-17] MEDS ORDERED: Ativan 2 MG/1 ML VIAL IV ONE (19:35)
[2018-11-17 20:30] LABS: Slide Review 1 YES
[2018-11-17 20:54] LABS: Appearance SLIGHTLY CLOUDY (CLEAR); Bilirubin NEGATIVE (NEGATIVE); Blood SMALL Ery/ul (0-5); Glucose >=500 mg/dL (NEGATIVE); Hyaline Casts 0-2 /LPF (0-2); Ketones MODERATE (NEGATIVE); Leukocyte Esterase NEGATIVE (NEGATIVE); Mucus SLIGHT /HPF (NEGATIVE); Nitrite NEGATIVE (NEGATIVE); Protein,Urine Dip >=500 (Negative); Specific Gravity 1.025 (1.005-1.025); Urobilinogen NEGATIVE mg/dL (0-1)
[2018-11-17 20:55] LABS: Amphetamine,Urine POSITIVE (NEGATIVE); Barbiturate,Urine NEGATIVE (NEGATIVE); Benzodiazepine,Urine NEGATIVE (NEGATIVE); Cocaine,Urine NEGATIVE (NEGATIVE); Methadone,Urine NEGATIVE (NEGATIVE); Opiate,Urine NEGATIVE (NEGATIVE); PCP,Urine NEGATIVE (NEGATIVE); THC,Urine NEGATIVE (NEGATIVE)
[2018-11-17 21:25] VITALS: BP 115/65; PULSE 121; O2SAT 100
[2018-11-17] MEDS ORDERED: ZOFRAN ODT 4 MG ONE (21:29)
[2018-11-17] MEDS: ZOFRAN ODT 4 MG PO ONE (21:32)
--- NOTE | 2018-11-18 08:48 | XRAY ---
Indication: Diffuse abdominal pain. Nausea and vomiting. Multiple contiguous axial images obtained through the abdomen and pelvis without contrast as ordered. Comparison: Multiple priors, most recent August 15, 2018. Lung bases remain clear. Heart is not enlarged. Stable small hiatal hernia. Noncontrasted stomach and bowel loops appear nonobstructed. Appendix identified with intraluminal hyperdensity, probable appendicolith but no acute appendicitis. Stable pelvic floor phleboliths. No free fluid/air. Remaining liver, gallbladder, pancreas, spleen, adrenal glands, kidneys, ureters, bladder, and aorta appear unremarkable for noncontrast exam. Bone windows demonstrate stable bilateral L5 spondylolysis without spondylolisthesis. Right abdomen wall again demonstrates subcutaneous induration presumed iatrogenic with inflammation/infection not completely excluded. Impression: 1. Appendicolith without acute appendicitis. 2. Stable small hiatal hernia and L5 spondylolysis without spondylolisthesis. 3. No new/acute intra-abdominal/pelvic abnormalities on this noncontrast exam. CT DI 10.36
== END 2018-11-17 21:37 | disposition home or self-care (01) ==
LOC: ED 15:46
DX: K31.84 Gastroparesis (principal); G43.A0 Cyclical vomiting, in migraine, not intractable; E10.9 Type 1 diabetes mellitus without complications; F41.9 Anxiety disorder, unspecified; F32.9 Major depressive disorder, single episode, unspecified
CPT/HCPCS: 36415; 36600; 74176; 80053; 80307; 81001; 82375; 82803; 83605; 83690; 83735; 85025; 85610; 87086; 96360; 96361; 96374; 96375; 99284; Q0162

== ENCOUNTER 2018-11-19 21:36 | Observation (INO) | payer OTHER ==
[2018-11-19] MEDS ORDERED: Sodium Chloride 0.9% 1000 ML 1,000 ML IV STA ×2 (22:22→23:51)
--- NOTE | 2018-11-19 22:29 | ERPHSYRPT ---
- History of Present Illness Time Seen by Provider: 11/19/18 22:15 Source: patient Exam Limitations: no limitations Patient Subjective Stated Complaint: PT C/O VOMITING X 4 DAYS. HX OF TYPE 1 DM AND DKA. PT STATES BS HAVE BEEN "UP AND DOWN". TODAY WERE IN THE "300'S". C/O FATIGUE AND GENERAL WEAKNESS. DENIES DIARRHEA AND FEVER. C/O EPIGASTRIC PAIN. Triage Nursing Assessment: PALE/WARM/DRY, SLIGHT INCREASE IN RESP EFFORT, A&OX4 , PT APPEARS MALAISE, ABLE TO STAND FROM CHAIR AND TRANSFER TO BED PER SELF WITHOUT DIFFICULTY. Physician History: This is a 33-year-old white male with history of diabetes, anxiety, depression, diabetic ketoacidosis. He arrives with complaint of epigastric pain nausea vomiting for 4 days. Past medical history includes diabetes type 1, anxiety, depression, diabetic ketoacidosis. Patient has a history of substance abuse in the past Timing/Duration: day(s) (4 days) Severity: moderate Associated Symptoms: nausea, vomiting, abdominal pain (epigastric pain), No shortness of breath, No heartburn, No diaphoresis, No cough, No chills, No chest pain, No fever, No headaches, No loss of appetite, No malaise, No rash, No syncope, No seizure, No weakness Allergies/Adverse Reactions: No Known Drug Allergies Allergy (Verified 11/19/18 21:46) Hx Tetanus, Diphtheria Vaccination/Date Given: No Hx Influenza Vaccination/Date Given: No Hx Pneumococcal Vaccination/Date Given: No Immunizations Up to Date: No - Review of Systems Constitutional: No Fever, No Chills Eyes: No Symptoms Ears, Nose, & Throat: No Symptoms Respiratory: No Cough, No Dyspnea Cardiac: No Symptoms Abdominal/Gastrointestinal: No Symptoms, Abdominal Pain, Nausea, Vomiting, No Diarrhea, No Constipation, No Hematemesis, No Hematochezia, No Melena, No Dysphagia, No Appetite Changes Genitourinary Symptoms: No Dysuria Musculoskeletal: No Back Pain, No Neck Pain Skin: No Rash Neurological: No Dizziness, No Focal Weakness, No Sensory Changes Psychological: No Symptoms Endocrine: No Symptoms All Other Systems: Reviewed and Negative - Past Medical History Pertinent Past Medical History: Yes Neurological History: No Pertinent History ENT History: No Pertinent History Cardiac History: No Pertinent History Respiratory History: No Pertinent History Endocrine Medical History: Diabetes Type I Musculoskeletal History: No Pertinent History GI Medical History: No Pertinent History History: No Pertinent History Psycho-Social History: Anxiety, Depression Male Reproductive Disorders: No Pertinent History Other Medical History: DKA - Past Surgical History Past Surgical History: No Neuro Surgical History: No Pertinent History Cardiac: No Pertinent History Respiratory: No Pertinent History Gastrointestinal: No Pertinent History Genitourinary: No Pertinent History Musculoskeletal: No Pertinent History Male Surgical History: No Pertinent History Other Surgical History: pt not answering questions well. has eyes closed, appears to be sleeping. recalled from previous admission - Social History Smoking Status: Never smoker Exposure to second hand smoke: No Drug Use: methamphetamines Patient Lives Alone: No - Nursing Vital Signs Nursing Vital Signs: Initial Vital Signs Temperature 99.0 F 11/19/18 21:48 Pulse Rate 120 H 11/19/18 21:48 Respiratory Rate 24 11/19/18 21:48 Blood Pressure 163/103 11/19/18 21:48 O2 Sat by Pulse Oximetry 100 11/19/18 21:48 Pain Scale Pain Intensity 8 - Physical Exam General Appearance: moderate distress, alert Eye Exam: PERRL/EOMI, eyes nml inspection Ears, Nose, Throat Exam: normal ENT inspection, TMs normal, pharynx normal, moist mucous membranes Neck Exam: normal inspection, non-tender, supple, full range of motion Respiratory Exam: normal breath sounds, lungs clear, No respiratory distress Cardiovascular Exam: regular rate/rhythm, normal heart sounds, normal peripheral pulses, capillary refill <2 sec Gastrointestinal/Abdomen Exam: soft, normal bowel sounds, No tenderness, No mass Back Exam: normal inspection, normal range of motion, No CVA tenderness, No vertebral tenderness Extremity Exam: normal inspection, normal range of motion, pelvis stable Neurologic Exam: alert, oriented x 3, cooperative, portfolio manager II-XII nml as tested, normal mood/affect, nml cerebellar function, nml station & gait, sensation nml, No motor deficits Skin Exam: normal color, warm, dry, No rash Lymphatic Exam: No adenopathy SpO2 Interpretation: normal (100%) SpO2: 100 - Course Nursing assessment & vital signs reviewed: Yes EKG Interpreted by Me: RATE (101 bpm), Sinus Rhythm, NORMAL AXIS, Other (EKG sinus tachycardia 101 bpm normal axis no acute ST or T wave changes noted) Ordered Tests: Active Orders 24 hr Category Date Time Status Accucheck STAT Care 11/19/18 22:22 Active Target Network Analyst STAT Care 11/19/18 22:22 Active EKG-ER Only STAT Care 11/19/18 22:22 Active IV Insertion STAT Care 11/19/18 22:22 Active Pulse Oximetry (ED) STAT Care 11/19/18 22:22 Active AMYLASE Stat Lab 11/19/18 23:24 Completed CBC W DIFF Stat Lab 11/19/18 23:24 Completed CMP Stat Lab 11/19/18 23:24 Completed ETHYL ALCOHOL Stat Lab 11/19/18 23:24 Completed Glucose,Critical Care Urgent Lab 11/20/18 01:57 Completed LIPASE Stat Lab 11/19/18 23:24 Completed UA W/RFX UR CULTURE Stat Lab 11/20/18 01:16 Completed Urine Triage Profile Stat Lab 11/20/18 01:16 Completed VENOUS BLOOD GAS Urgent Lab 11/19/18 23:20 Completed Medication Summary Generic Name Dose Route Start Last Admin Trade Name Freq PRN Reason Stop Dose Admin Sodium Chloride 1,000 mls @ 150 mls/hr 11/20/18 02:00 11/20/18 02:11 Sodium Chloride 0.9% 1000 Ml IV 12/20/18 01:59 150 mls/hr .[id number] XIN Administration Insulin Human Regular 100 101 mls @ 7.07 mls/hr 11/20/18 02:45 units/ Sodium Chloride IV 12/20/18 02:44 .[id number] XIN 7 UNITS/HR Discontinued Medications Generic Name Dose Route Start Last Admin Trade Name Freq PRN Reason Stop Dose Admin Sodium Chloride 1,000 mls @ 999 mls/hr 11/19/18 22:22 11/20/18 02:12 Sodium Chloride 0.9% 1000 Ml IV 11/19/18 23:22 Infused .Q1H1M STA Infusion Sodium Chloride 1,000 mls @ 999 mls/hr 11/19/18 23:51 11/20/18 02:13 Sodium Chloride 0.9% 1000 Ml IV 11/20/18 00:51 Infused .Q1H1M STA Infusion Sodium Chloride Confirm 11/19/18 23:53 Sodium Chloride 0.9% 1000 Ml Administered 11/19/18 23:54 Dose 1,000 mls @ ud .ROUTE .STK-MED ONE Sodium Chloride Confirm 11/20/18 00:48 Sodium Chloride 0.9% 1000 Ml Administered 11/20/18 00:49 Dose 1,000 mls @ ud .ROUTE .STK-MED ONE Sodium Chloride Confirm 11/20/18 02:38 Sodium Chloride 0.9% 100 Ml Ivpb Administered 11/20/18 02:39 Dose 100 mls @ ud IV .STK-MED ONE Insulin Human Regular Confirm 11/20/18 02:38 Novolin R Administered 11/20/18 02:39 Dose 1 unit .ROUTE .STK-MED ONE Ondansetron HCl 4 mg 11/19/18 23:58 11/20/18 00:05 Zofran 4 Mg/2 Ml Vial IV 11/19/18 23:59 4 mg STAT ONE Administration Ondansetron HCl Confirm 11/20/18 00:04 Zofran 4 Mg/2 Ml Vial Administered 11/20/18 00:05 Dose 4 mg .ROUTE .STK-MED ONE Lab/Rad Data: Laboratory Result Diagrams 11/19/18 23:24 11/19/18 23:24 Laboratory Results 11/20/18 11/20/18 11/20/18 Range/Units 01:57 01:16 01:16 WBC (4.0-10.5) K/mm3 RBC (4.1-5.6) M/mm3 Hgb (12.5-18.0) gm/dl Hct (42-50) % MCV (78-100) fl MCH (26-32) pg MCHC (32-36) g/dl RDW (11.5-14.0) % Plt Count (150-450) K/mm3 MPV (6-9.5) fl Gran % (36.0-66.0) % Eos # (Auto) (0-0.5) Absolute Lymphs (auto) (1.0-4.6) Absolute Monos (auto) (0.0-1.3) Lymphocytes % (24.0-44.0) % Monocytes % (0.0-12.0) % Eosinophils % (0.00-5.0) % Basophils % (0.0-0.4) % Absolute Granulocytes (1.4-6.9) Basophils # (0-0.4) pO2/FiO2 Ratio % VBG pH (7.32-7.42) VBG pCO2 at Pat Temp (42-55) mm/Hg VBG pO2 at Pat Temp (25-40) mm/Hg VBG HCO3 (22-28) meq/L VBG O2 Sat (Jalen) (95-100) VBG Base Excess (-2.0-2.0) VBG Hemoglobin VBG Carboxyhemoglobin (0.0-6.9) % T HGB POC Potassium (3.5-5.1) Sodium (137-145) mmol/L Potassium (3.5-5.1) mmol/L Chloride (98-107) mmol/L Carbon Dioxide (22-30) mmol/L Anion Gap (5-15) MEQ/L BUN (9-20) mg/dL Creatinine (0.66-1.25) mg/dL Estimated GFR ML/MIN Glucose 491 H (74-106) mg/dL Calcium (8.4-10.2) mg/dL Total Bilirubin (0.2-1.3) mg/dL AST (17-59) U/L ALT (0-50) U/L Alkaline Phosphatase (38-126) U/L Serum Total Protein (6.3-8.2) g/dL Albumin (3.5-5.0) g/dL Amylase (30-110) U/L Lipase (23-300) U/L Urine Color YELLOW (YELLOW) Urine Appearance CLEAR (CLEAR) Urine pH 5.0 (5-6) Ur Specific [place] 1.025 (1.005-1.025) Urine Protein 100 (Negative) Urine Ketones MODERATE (NEGATIVE) Urine Blood MODERATE (0-5) Tomas/ul Urine Nitrite NEGATIVE (NEGATIVE) Urine Bilirubin NEGATIVE (NEGATIVE) Urine Urobilinogen NEGATIVE (0-1) mg/dL Ur Leukocyte Esterase NEGATIVE (NEGATIVE) Urine WBC (Auto) NONE (0-5) /HPF Urine RBC (Auto) 3-5 (0-2) /HPF U Epithel Cells (Auto) NONE (FEW) /HPF Urine Bacteria (Auto) NONE (NEGATIVE) /HPF Urine Culture Reflexed NO (NO) Urine Glucose >=500 (NEGATIVE) mg/dL Urine Opiates Level NEGATIVE (NEGATIVE) Ur Methadone NEGATIVE (NEGATIVE) Urine Barbiturates NEGATIVE (NEGATIVE) Ur Phencyclidine (PCP) NEGATIVE (NEGATIVE) Urine Amphetamine NEGATIVE (NEGATIVE) U Benzodiazepine Level NEGATIVE (NEGATIVE) Urine Cocaine NEGATIVE (NEGATIVE) Urine Marijuana (THC) NEGATIVE (NEGATIVE) Ethyl Alcohol (0-10) mg/dL 11/19/18 11/19/18 11/19/18 Range/Units 23:24 23:24 23:24 WBC 11.2 H (4.0-10.5) K/mm3 RBC 5.11 (4.1-5.6) M/mm3 Hgb 14.6 (12.5-18.0) gm/dl Hct 43.5 (42-50) % MCV 85.1 (78-100) fl MCH 28.6 (26-32) pg MCHC 33.6 (32-36) g/dl RDW 12.4 (11.5-14.0) % Plt Count 423 (150-450) K/mm3 MPV 8.7 (6-9.5) fl Gran % 80.0 H (36.0-66.0) % Eos # (Auto) 0.01 (0-0.5) Absolute Lymphs (auto) 0.88 L (1.0-4.6) Absolute Monos (auto) 1.34 H (0.0-1.3) Lymphocytes % 7.8 L (24.0-44.0) % Monocytes % 11.9 (0.0-12.0) % Eosinophils % 0.1 (0.00-5.0) % Basophils % 0.2 (0.0-0.4) % Absolute Granulocytes 8.99 H (1.4-6.9) Basophils # 0.02 (0-0.4) pO2/FiO2 Ratio % VBG pH (7.32-7.42) VBG pCO2 at Pat Temp (42-55) mm/Hg VBG pO2 at Pat Temp (25-40) mm/Hg VBG HCO3 (22-28) meq/L VBG O2 Sat (Jalen) (95-100) VBG Base Excess (-2.0-2.0) VBG Hemoglobin VBG Carboxyhemoglobin (0.0-6.9) % T HGB POC Potassium (3.5-5.1) Sodium 133 L (137-145) mmol/L Potassium 5.0 (3.5-5.1) mmol/L Chloride 85 L (98-107) mmol/L Carbon Dioxide 20 L (22-30) mmol/L Anion Gap 33.4 H (5-15) MEQ/L BUN 28 H (9-20) mg/dL Creatinine 1.24 (0.66-1.25) mg/dL Estimated GFR > 60.0 ML/MIN Glucose 476 H (74-106) mg/dL Calcium 10.0 (8.4-10.2) mg/dL Total Bilirubin 1.60 H (0.2-1.3) mg/dL AST 19 (17-59) U/L ALT 20 (0-50) U/L Alkaline Phosphatase 144 H (38-126) U/L Serum Total Protein 8.6 H (6.3-8.2) g/dL Albumin 4.8 (3.5-5.0) g/dL Amylase 56 (30-110) U/L Lipase 11 L (23-300) U/L Urine Color (YELLOW) Urine Appearance (CLEAR) Urine pH (5-6) Ur Specific [place] (1.005-1.025) Urine Protein (Negative) Urine Ketones (NEGATIVE) Urine Blood (0-5) Tomas/ul Urine Nitrite (NEGATIVE) Urine Bilirubin (NEGATIVE) Urine Urobilinogen (0-1) mg/dL Ur Leukocyte Esterase (NEGATIVE) Urine WBC (Auto) (0-5) /HPF Urine RBC (Auto) (0-2) /HPF U Epithel Cells (Auto) (FEW) /HPF Urine Bacteria (Auto) (NEGATIVE) /HPF Urine Culture Reflexed (NO) Urine Glucose (NEGATIVE) mg/dL Urine Opiates Level (NEGATIVE) Ur Methadone (NEGATIVE) Urine Barbiturates (NEGATIVE) Ur Phencyclidine (PCP) (NEGATIVE) Urine Amphetamine (NEGATIVE) U Benzodiazepine Level (NEGATIVE) Urine Cocaine (NEGATIVE) Urine Marijuana (THC) (NEGATIVE) Ethyl Alcohol < 10 (0-10) mg/dL 11/19/18 Range/Units 23:20 WBC (4.0-10.5) K/mm3 RBC (4.1-5.6) M/mm3 Hgb (12.5-18.0) gm/dl Hct (42-50) % MCV (78-100) fl MCH (26-32) pg MCHC (32-36) g/dl RDW (11.5-14.0) % Plt Count (150-450) K/mm3 MPV (6-9.5) fl Gran % (36.0-66.0) % Eos # (Auto) (0-0.5) Absolute Lymphs (auto) (1.0-4.6) Absolute Monos (auto) (0.0-1.3) Lymphocytes % (24.0-44.0) % Monocytes % (0.0-12.0) % Eosinophils % (0.00-5.0) % Basophils % (0.0-0.4) % Absolute Granulocytes (1.4-6.9) Basophils # (0-0.4) pO2/FiO2 Ratio 21.0 % VBG pH 7.40 (7.32-7.42) VBG pCO2 at Pat Temp 32 L (42-55) mm/Hg VBG pO2 at Pat Temp 44 H (25-40) mm/Hg VBG HCO3 19.8 L (22-28) meq/L VBG O2 Sat (Jalen) 84.9 L (95-100) VBG Base Excess -3.9 L (-2.0-2.0) VBG Hemoglobin 15.5 VBG Carboxyhemoglobin 2.9 (0.0-6.9) % T HGB POC Potassium 4.8 (3.5-5.1) Sodium (137-145) mmol/L Potassium (3.5-5.1) mmol/L Chloride (98-107) mmol/L Carbon Dioxide (22-30) mmol/L Anion Gap (5-15) MEQ/L BUN (9-20) mg/dL Creatinine (0.66-1.25) mg/dL Estimated GFR ML/MIN Glucose (74-106) mg/dL Calcium (8.4-10.2) mg/dL Total Bilirubin (0.2-1.3) mg/dL AST (17-59) U/L ALT (0-50) U/L Alkaline Phosphatase (38-126) U/L Serum Total Protein (6.3-8.2) g/dL Albumin (3.5-5.0) g/dL Amylase (30-110) U/L Lipase (23-300) U/L Urine Color (YELLOW) Urine Appearance (CLEAR) Urine pH (5-6) Ur Specific [place] (1.005-1.025) Urine Protein (Negative) Urine Ketones (NEGATIVE) Urine Blood (0-5) Tomas/ul Urine Nitrite (NEGATIVE) Urine Bilirubin (NEGATIVE) Urine Urobilinogen (0-1) mg/dL Ur Leukocyte Esterase (NEGATIVE) Urine WBC (Auto) (0-5) /HPF Urine RBC (Auto) (0-2) /HPF U Epithel Cells (Auto) (FEW) /HPF Urine Bacteria (Auto) (NEGATIVE) /HPF Urine Culture Reflexed (NO) Urine Glucose (NEGATIVE) mg/dL Urine Opiates Level (NEGATIVE) Ur Methadone (NEGATIVE) Urine Barbiturates (NEGATIVE) Ur Phencyclidine (PCP) (NEGATIVE) Urine Amphetamine (NEGATIVE) U Benzodiazepine Level (NEGATIVE) Urine Cocaine (NEGATIVE) Urine Marijuana (THC) (NEGATIVE) Ethyl Alcohol (0-10) mg/dL - Progress Progress: improved Progress Note: 11/20/18 02:49 33-year-old white male with history of anxiety, depression, diabetes type 1, DKA , substance abuse Patient was seen on November 17 secondary persistent nausea and vomiting he had given a history of using methamphetamines 2 days prior to this. Patient was given IV fluids and released. Patient returns today he states he is continuing to have nausea vomiting is having epigastric pain. On arrival patient's vitals were stable blood pressure was elevated at 163/103 this has improved to 154/94 Asians heart rate was 120 this is improved to 109 saturations are 99% Patient had a glucose of 476 on his chemistry other chemistry included sodium 133 potassium 5.0 chloride 85 bicarbonate 20 BUN 28 creatinine 1.24 Patient's venous gas show a pH of 7.40 PCO2 is 32 Patient white count was 11.2 hemoglobin 14.6 hematocrit 43.5 platelets 423 Patient with a total bilirubin 1.6 amylase and lipase are normal Anion gap was 33.4 patient with moderate amount of ketones in his urine specific gravity 1.025 he had 100 protein Patient was given IV normal saline 2 L he was a difficult stick anesthesia ended up obtaining IV for this patient After of 2 L normal saline were instilled on this patient, stat glucose was obtained he is noted to have a glucose of 490 Therefore she patient was started on IV insulin drip 0.1 unit per hour with DKA protocol. I have contacted Dr. Meehan who is covering for Dr. Quinones I've discussed the patient's case with Dr. Meehan as well as his clinical condition and his laboratory data. Will go ahead and place patient on ICU observation. Continue insulin drip continue IV normal saline at [address] patient on DKA protocol. Provide Zofran for nausea and vomiting. - Departure Departure Disposition: Observation Clinical Impression: Failure of outpatient treatment Diabetes mellitus type I Qualifiers: Diabetes mellitus complication status: with ketoacidosis Diabetes mellitus complication detail: without coma Qualified Code(s): E10.10 - Type 1 diabetes mellitus with ketoacidosis without coma Nausea and vomiting Qualifiers: Vomiting type: unspecified Vomiting Intractability: non-intractable Qualified Code(s): R11.2 - Nausea with vomiting, unspecified Condition: Fair Critical Care Time: No Referrals: VALENTINA QUINONES [Primary Care Provider] -
[2018-11-19 23:24] LABS: BASOPHIL % 0.2 % (0.0-0.4); Basophil (Absolute #) 0.02 (0-0.4); Eosinophil % 0.1 % (0.00-5.0); Eosinophil (Absolute #) 0.01 (0-0.5); Granulocyte Absolute (ANC) 8.99 (1.4-6.9); Hematocrit 43.5 % (42-50); Hemoglobin 14.6 gm/dl (12.5-18.0); Lymphocyte (Absolute #) 0.88 (1.0-4.6); Lymphocytes % 7.8 % (24.0-44.0); Mean Cell Volume 85.1 fl (78-100); Mean Corpuscular Hemoglobin 28.6 pg (26-32); Mean Corpuscular Hgb Concent. 33.6 g/dl (32-36); Mean Platelet Volume 8.7 fl (6-9.5); Monocyte (Absolute #) 1.34 (0.0-1.3); Monocytes % 11.9 % (0.0-12.0); Platelet Count 423 K/mm3 (150-450); Red Blood Count 5.11 M/mm3 (4.1-5.6); Red Cell Distribution Width 12.4 % (11.5-14.0); White Blood Count 11.2 K/mm3 (4.0-10.5)
[2018-11-19 23:25] LABS: VBG BASE EXCESS -3.9 (-2.0-2.0); VBG CARBOXYHEMOGLOBIN 2.9 % T HGB (0.0-6.9); VBG HCO3- 19.8 meq/L (22-28); VBG HEMOGLOBIN 15.5; VBG O2 SATURATION 84.9 (95-100); VBG POTASSIUM 4.8 (3.5-5.1); VBG pH 7.4 (7.32-7.42)
[2018-11-19 23:36] LABS: ALBUMIN 4.8 g/dL (3.5-5.0); ALKALINE PHOSPHATASE 144 U/L (38-126); ANION GAP 33.4 MEQ/L (5-15); BLOOD UREA NITROGEN 28 mg/dL (9-20); CHLORIDE 85 mmol/L (98-107); Carbon Dioxide 20 mmol/L (22-30); Creatinine 1 1.24 mg/dL (0.66-1.25); Glucose 476 mg/dL (74-106); SGOT/AST 19 U/L (17-59); SGPT/ALT 20 U/L (0-50); SODIUM 133 mmol/L (137-145); Total Protein 8.6 g/dL (6.3-8.2)
[2018-11-19 23:37] LABS: ETHYL ALCOHOL < 10 mg/dL (0-10)
[2018-11-19 23:41] LABS: AMYLASE 56 U/L (30-110); LIPASE 11 U/L (23-300)
[2018-11-19] MEDS ORDERED: Sodium Chloride 0.9% 1000 ML 1,000 ML ONE (23:53)
[2018-11-19] MEDS ORDERED: Zofran 4 MG/2 ML VIAL IV ONE (23:58)
[2018-11-20] MEDS ORDERED: Zofran 4 MG/2 ML VIAL ONE ×2 (00:04→03:01)
[2018-11-20] MEDS ORDERED: Sodium Chloride 0.9% 1000 ML 1,000 ML ONE (00:48)
[2018-11-20 01:39] LABS: Amphetamine,Urine NEGATIVE (NEGATIVE); Barbiturate,Urine NEGATIVE (NEGATIVE); Benzodiazepine,Urine NEGATIVE (NEGATIVE); Cocaine,Urine NEGATIVE (NEGATIVE); Methadone,Urine NEGATIVE (NEGATIVE); Opiate,Urine NEGATIVE (NEGATIVE); PCP,Urine NEGATIVE (NEGATIVE); THC,Urine NEGATIVE (NEGATIVE)
[2018-11-20 01:45] LABS: Appearance CLEAR (CLEAR); Bilirubin NEGATIVE (NEGATIVE); Blood MODERATE Ery/ul (0-5); Glucose >=500 mg/dL (NEGATIVE); Ketones MODERATE (NEGATIVE); Leukocyte Esterase NEGATIVE (NEGATIVE); Nitrite NEGATIVE (NEGATIVE); Protein,Urine Dip 100 (Negative); Specific Gravity 1.025 (1.005-1.025); Urobilinogen NEGATIVE mg/dL (0-1)
[2018-11-20] MEDS: Sodium Chloride 0.9% 1000 ML 1,000 ML IV SCH ×2 (02:11→08:50)
[2018-11-20] MEDS ORDERED: NovoLIN R ONE (02:38)
[2018-11-20] MEDS ORDERED: Sodium Chloride 0.9% 100 ML IVPB 100 ML IV ONE (02:38)
[2018-11-20] MEDS ORDERED: NOVOLIN R INSULIN (FOR DRIPS)** 100 UNITS in Sodium Chloride 0.9% 100 ML IVPB 100 ML IV SCH (02:45)
[2018-11-20] MEDS ORDERED: Zofran 4 MG/2 ML VIAL IV ONE (02:59)
[2018-11-20 04:18] LABS: ANION GAP 24.9 MEQ/L (5-15); BLOOD UREA NITROGEN 26 mg/dL (9-20); CHLORIDE 95 mmol/L (98-107); Calcium 8.9 mg/dL (8.4-10.2); Carbon Dioxide 20 mmol/L (22-30); Creatinine 1 1.06 mg/dL (0.66-1.25); Glucose 369 mg/dL (74-106); Potassium 4.2 mmol/L (3.5-5.1); SODIUM 135 mmol/L (137-145)
[2018-11-20] MEDS: Phenergan 25 MG INJ IM PRN ×2 (05:27→12:09)
--- NOTE | 2018-11-20 07:57 | PCM.HP ---
History of Present Illness - Chief Complaint Chief Complaint: diabetic ketoacidosis History of Present Illness: is a 33 year old male with insulin dependant diabetes and drug use with recurrent admissions for DKA. he was in the ER after meth use a few days ago and released, he returned with vomiting and worsening illness. states he usually gets sick and has DKA when he uses meth. He claims compliance with insulin, no cough, no fever, no diarrhea, no abdominal pain or other associated symptoms. - Review of Systems Constitutional: No Fever, No Chills Eyes: No Symptoms Abdominal/Gastrointestinal: Nausea, Vomiting, No Abdominal Pain, No Diarrhea Genitourinary Symptoms: No Dysuria Neurological: No Dizziness, No Focal Weakness, No Sensory Changes Psychological: Drug Abuse All Other Systems: Reviewed and Negative Medications & Allergies Home Medications: Home Medication List Insulin Aspart [NovoLOG Insulin] 5 unit SQ TIDAC #5 pens 08/18/18 [Rx Confirmed 11/19/18] Insulin Glargine,Hum.rec.anlog [Basaglar Kwikpen U-100] 20 unit SQ DAILY #5 insuln.pen 08/18/18 [Rx Confirmed 11/19/18] Ondansetron ODT 4 MG [Zofran Odt 4 mg] 4 mg PO Q6H PRN PRN #10 tab.rapdis 11/17/18 [Rx Confirmed 11/19/18] Allergies/Adverse Reactions: Allergies Allergy/AdvReac Type Severity Reaction Status Date / Time No Known Drug Allergies Allergy Verified 11/19/18 21:46 - Past Medical History Past Medical History: Yes Neurological History: No Pertinent History ENT History: No Pertinent History Cardiac History: No Pertinent History Respiratory History: No Pertinent History Endocrine Medical History: Diabetes Type I Musculoskelatal History: No Pertinent History GI Medical History: No Pertinent History History: No Pertinent History Pyscho-Social History: Anxiety, Depression Male Reproductive Disorders: No Pertinent History Comment: DKA - Past Surgical History Past Surgical History: No Neuro Surgical History: No Pertinent History Cardiac History: No Pertinent History Respiratory Surgery: No Pertinent History GI Surgical History: No Pertinent History Genitourinary Surgical Hx: No Pertinent History Musculskeletal Surgical Hx: No Pertinent History Male Surgical History: No Pertinent History Other Surgical History: . - Social History Smoking Status: Never smoker Exposure to second hand smoke: No Alcohol: None Drug Use: methamphetamines - Physical Exam Vital Signs: Vital Signs - 24 hr Temp Pulse Resp BP Pulse Ox 11/20/18 06:48 106 H 13 162/104 97 11/20/18 06:14 92 H 17 148/93 97 11/20/18 05:05 98.3 F 93 H 16 112/68 100 11/20/18 04:00 98 11/20/18 03:56 98 11/20/18 03:37 99.0 F 101 H 18 157/94 100 11/20/18 03:30 99.0 F 103 H 21 157/94 100 11/20/18 02:54 100 11/20/18 02:13 101 H 16 123/72 97 11/20/18 01:16 109 H 18 154/94 99 11/19/18 23:37 99 H 18 123/82 97 11/19/18 21:48 99.0 F 120 H 24 163/103 100 General Appearance: mild distress Neurologic Exam: alert, oriented x 3 Eye Exam: PERRL/EOMI, eyes nml inspection Neck Exam: normal inspection, non-tender, supple, full range of motion Respiratory Exam: normal breath sounds, lungs clear, No respiratory distress Cardiovascular Exam: regular rate/rhythm, normal heart sounds, normal peripheral pulses Gastrointestinal/Abdomen Exam: soft, normal bowel sounds, No tenderness, No mass Extremity Exam: normal inspection, normal range of motion, pelvis stable Skin Exam: normal color, warm, dry, No rash Results - Labs Lab/Micro Results: Accuchecks Date 11/20/18 Date 11/20/18 Date 11/20/18 Date 11/20/18 Time 06:47 Time 06:11 Time 05:02 Time 04:04 Accucheck Value: 155 Accucheck Value: 187 Accucheck Value: 280 Accucheck Value: 367 Accucheck Value: 476 Lab Results-Last 24 Hours 11/19/18 11/19/18 11/19/18 Range/Units 23:20 23:24 23:24 WBC 11.2 H (4.0-10.5) K/mm3 RBC 5.11 (4.1-5.6) M/mm3 Hgb 14.6 (12.5-18.0) gm/dl Hct 43.5 (42-50) % MCV 85.1 (78-100) fl MCH 28.6 (26-32) pg MCHC 33.6 (32-36) g/dl RDW 12.4 (11.5-14.0) % Plt Count 423 (150-450) K/mm3 MPV 8.7 (6-9.5) fl Gran % 80.0 H (36.0-66.0) % Eos # (Auto) 0.01 (0-0.5) Absolute Lymphs (auto) 0.88 L (1.0-4.6) Absolute Monos (auto) 1.34 H (0.0-1.3) Lymphocytes % 7.8 L (24.0-44.0) % Monocytes % 11.9 (0.0-12.0) % Eosinophils % 0.1 (0.00-5.0) % Basophils % 0.2 (0.0-0.4) % Absolute Granulocytes 8.99 H (1.4-6.9) Basophils # 0.02 (0-0.4) pO2/FiO2 Ratio 21.0 % VBG pH 7.40 (7.32-7.42) VBG pCO2 at Pat Temp 32 L (42-55) mm/Hg VBG pO2 at Pat Temp 44 H (25-40) mm/Hg VBG HCO3 19.8 L (22-28) meq/L VBG O2 Sat (Jalen) 84.9 L (95-100) VBG Base Excess -3.9 L (-2.0-2.0) VBG Hemoglobin 15.5 VBG Carboxyhemoglobin 2.9 (0.0-6.9) % T HGB POC Potassium 4.8 (3.5-5.1) Sodium 133 L (137-145) mmol/L Potassium 5.0 (3.5-5.1) mmol/L Chloride 85 L (98-107) mmol/L Carbon Dioxide 20 L (22-30) mmol/L Anion Gap 33.4 H (5-15) MEQ/L BUN 28 H (9-20) mg/dL Creatinine 1.24 (0.66-1.25) mg/dL Estimated GFR > 60.0 ML/MIN Glucose 476 H (74-106) mg/dL Calcium 10.0 (8.4-10.2) mg/dL Total Bilirubin 1.60 H (0.2-1.3) mg/dL AST 19 (17-59) U/L ALT 20 (0-50) U/L Alkaline Phosphatase 144 H (38-126) U/L Serum Total Protein 8.6 H (6.3-8.2) g/dL Albumin 4.8 (3.5-5.0) g/dL Amylase (30-110) U/L Lipase (23-300) U/L Urine Color (YELLOW) Urine Appearance (CLEAR) Urine pH (5-6) Ur Specific Pitkin (1.005-1.025) Urine Protein (Negative) Urine Ketones (NEGATIVE) Urine Blood (0-5) Tomas/ul Urine Nitrite (NEGATIVE) Urine Bilirubin (NEGATIVE) Urine Urobilinogen (0-1) mg/dL Ur Leukocyte Esterase (NEGATIVE) Urine WBC (Auto) (0-5) /HPF Urine RBC (Auto) (0-2) /HPF U Epithel Cells (Auto) (FEW) /HPF Urine Bacteria (Auto) (NEGATIVE) /HPF Urine Culture Reflexed (NO) Urine Glucose (NEGATIVE) mg/dL Urine Opiates Level (NEGATIVE) Ur Methadone (NEGATIVE) Urine Barbiturates (NEGATIVE) Ur Phencyclidine (PCP) (NEGATIVE) Urine Amphetamine (NEGATIVE) U Benzodiazepine Level (NEGATIVE) Urine Cocaine (NEGATIVE) Urine Marijuana (THC) (NEGATIVE) Ethyl Alcohol < 10 (0-10) mg/dL 11/19/18 11/20/18 11/20/18 Range/Units 23:24 01:16 01:16 WBC (4.0-10.5) K/mm3 RBC (4.1-5.6) M/mm3 Hgb (12.5-18.0) gm/dl Hct (42-50) % MCV (78-100) fl MCH (26-32) pg MCHC (32-36) g/dl RDW (11.5-14.0) % Plt Count (150-450) K/mm3 MPV (6-9.5) fl Gran % (36.0-66.0) % Eos # (Auto) (0-0.5) Absolute Lymphs (auto) (1.0-4.6) Absolute Monos (auto) (0.0-1.3) Lymphocytes % (24.0-44.0) % Monocytes % (0.0-12.0) % Eosinophils % (0.00-5.0) % Basophils % (0.0-0.4) % Absolute Granulocytes (1.4-6.9) Basophils # (0-0.4) pO2/FiO2 Ratio % VBG pH (7.32-7.42) VBG pCO2 at Pat Temp (42-55) mm/Hg VBG pO2 at Pat Temp (25-40) mm/Hg VBG HCO3 (22-28) meq/L VBG O2 Sat (Jalen) (95-100) VBG Base Excess (-2.0-2.0) VBG Hemoglobin VBG Carboxyhemoglobin (0.0-6.9) % T HGB POC Potassium (3.5-5.1) Sodium (137-145) mmol/L Potassium (3.5-5.1) mmol/L Chloride (98-107) mmol/L Carbon Dioxide (22-30) mmol/L Anion Gap (5-15) MEQ/L BUN (9-20) mg/dL Creatinine (0.66-1.25) mg/dL Estimated GFR ML/MIN Glucose (74-106) mg/dL Calcium (8.4-10.2) mg/dL Total Bilirubin (0.2-1.3) mg/dL AST (17-59) U/L ALT (0-50) U/L Alkaline Phosphatase (38-126) U/L Serum Total Protein (6.3-8.2) g/dL Albumin (3.5-5.0) g/dL Amylase 56 (30-110) U/L Lipase 11 L (23-300) U/L Urine Color YELLOW (YELLOW) Urine Appearance CLEAR (CLEAR) Urine pH 5.0 (5-6) Ur Specific [place] 1.025 (1.005-1.025) Urine Protein 100 (Negative) Urine Ketones MODERATE (NEGATIVE) Urine Blood MODERATE (0-5) Tomas/ul Urine Nitrite NEGATIVE (NEGATIVE) Urine Bilirubin NEGATIVE (NEGATIVE) Urine Urobilinogen NEGATIVE (0-1) mg/dL Ur Leukocyte Esterase NEGATIVE (NEGATIVE) Urine WBC (Auto) NONE (0-5) /HPF Urine RBC (Auto) 3-5 (0-2) /HPF U Epithel Cells (Auto) NONE (FEW) /HPF Urine Bacteria (Auto) NONE (NEGATIVE) /HPF Urine Culture Reflexed NO (NO) Urine Glucose >=500 (NEGATIVE) mg/dL Urine Opiates Level NEGATIVE (NEGATIVE) Ur Methadone NEGATIVE (NEGATIVE) Urine Barbiturates NEGATIVE (NEGATIVE) Ur Phencyclidine (PCP) NEGATIVE (NEGATIVE) Urine Amphetamine NEGATIVE (NEGATIVE) U Benzodiazepine Level NEGATIVE (NEGATIVE) Urine Cocaine NEGATIVE (NEGATIVE) Urine Marijuana (THC) NEGATIVE (NEGATIVE) Ethyl Alcohol (0-10) mg/dL 11/20/18 11/20/18 Range/Units 01:57 03:46 WBC (4.0-10.5) K/mm3 RBC (4.1-5.6) M/mm3 Hgb (12.5-18.0) gm/dl Hct (42-50) % MCV (78-100) fl MCH (26-32) pg MCHC (32-36) g/dl RDW (11.5-14.0) % Plt Count (150-450) K/mm3 MPV (6-9.5) fl Gran % (36.0-66.0) % Eos # (Auto) (0-0.5) Absolute Lymphs (auto) (1.0-4.6) Absolute Monos (auto) (0.0-1.3) Lymphocytes % (24.0-44.0) % Monocytes % (0.0-12.0) % Eosinophils % (0.00-5.0) % Basophils % (0.0-0.4) % Absolute Granulocytes (1.4-6.9) Basophils # (0-0.4) pO2/FiO2 Ratio % VBG pH (7.32-7.42) VBG pCO2 at Pat Temp (42-55) mm/Hg VBG pO2 at Pat Temp (25-40) mm/Hg VBG HCO3 (22-28) meq/L VBG O2 Sat (Jalen) (95-100) VBG Base Excess (-2.0-2.0) VBG Hemoglobin VBG Carboxyhemoglobin (0.0-6.9) % T HGB POC Potassium (3.5-5.1) Sodium 135 L (137-145) mmol/L Potassium 4.2 (3.5-5.1) mmol/L Chloride 95 L (98-107) mmol/L Carbon Dioxide 20 L (22-30) mmol/L Anion Gap 24.9 H (5-15) MEQ/L BUN 26 H (9-20) mg/dL Creatinine 1.06 (0.66-1.25) mg/dL Estimated GFR > 60.0 ML/MIN Glucose 491 H 369 H (74-106) mg/dL Calcium 8.9 (8.4-10.2) mg/dL Total Bilirubin (0.2-1.3) mg/dL AST (17-59) U/L ALT (0-50) U/L Alkaline Phosphatase (38-126) U/L Serum Total Protein (6.3-8.2) g/dL Albumin (3.5-5.0) g/dL Amylase (30-110) U/L Lipase (23-300) U/L Urine Color (YELLOW) Urine Appearance (CLEAR) Urine pH (5-6) Ur Specific [place] (1.005-1.025) Urine Protein (Negative) Urine Ketones (NEGATIVE) Urine Blood (0-5) Tomas/ul Urine Nitrite (NEGATIVE) Urine Bilirubin (NEGATIVE) Urine Urobilinogen (0-1) mg/dL Ur Leukocyte Esterase (NEGATIVE) Urine WBC (Auto) (0-5) /HPF Urine RBC (Auto) (0-2) /HPF U Epithel Cells (Auto) (FEW) /HPF Urine Bacteria (Auto) (NEGATIVE) /HPF Urine Culture Reflexed (NO) Urine Glucose (NEGATIVE) mg/dL Urine Opiates Level (NEGATIVE) Ur Methadone (NEGATIVE) Urine Barbiturates (NEGATIVE) Ur Phencyclidine (PCP) (NEGATIVE) Urine Amphetamine (NEGATIVE) U Benzodiazepine Level (NEGATIVE) Urine Cocaine (NEGATIVE) Urine Marijuana (THC) (NEGATIVE) Ethyl Alcohol (0-10) mg/dL Accuchecks Date 11/20/18 Date 11/20/18 Date 11/20/18 Date 11/20/18 Time 06:47 Time 06:11 Time 05:02 Time 04:04 Accucheck Value: 155 Accucheck Value: 187 Accucheck Value: 280 Accucheck Value: 367 Accucheck Value: 476 Assessment/Plan (1) DKA (diabetic ketoacidoses) Current Visit: No Status: Acute Onset Date: ~09/14/18 Assessment & Plan: continue insulin pump until gap closed. discussed importance of sugar control and compliance with meds and avoidance of drug use. Code(s): E13.10 - OTH DIABETES MELLITUS WITH KETOACIDOSIS WITHOUT COMA (2) Nausea and vomiting Current Visit: Yes Status: Acute Qualifiers: Vomiting type: unspecified Vomiting Intractability: non-intractable Qualified Code(s): R11.2 - Nausea with vomiting, unspecified Code(s): R11.2 - NAUSEA WITH VOMITING, UNSPECIFIED (3) Illicit drug use Current Visit: No Status: Chronic Onset Date: ~05/30/18 Code(s): F19.90 - OTHER PSYCHOACTIVE SUBSTANCE USE, UNSPECIFIED, UNCOMPLICATED
[2018-11-20 08:28] LABS: ANION GAP 15.5 MEQ/L (5-15); BLOOD UREA NITROGEN 24 mg/dL (9-20); CHLORIDE 99 mmol/L (98-107); Calcium 8.8 mg/dL (8.4-10.2); Carbon Dioxide 26 mmol/L (22-30); Creatinine 1 0.87 mg/dL (0.66-1.25); Glucose 115 mg/dL (74-106); Potassium 3.9 mmol/L (3.5-5.1); SODIUM 136 mmol/L (137-145)
[2018-11-20] MEDS ORDERED: D50W 50 ml Abboject IV PRN (09:06)
[2018-11-20] MEDS ORDERED: POTASSIUM CHLORIDE 20 mEq IN WATER 100ML 100 ML IV PRN (09:09)
[2018-11-20] MEDS ORDERED: Sodium Chloride 0.9% 1000 ML 1,000 ML IV SCH (09:30)
[2018-11-20] MEDS ORDERED: NovoLOG Insulin SQ PRN (09:31)
[2018-11-20] MEDS: Zofran 4 MG/2 ML VIAL IV PRN (11:09)
[2018-11-20] MEDS: Lantus Insulin SQ SCH (11:30)
[2018-11-20] MEDS: Lopressor 50 MG PO SCH (12:25)
--- NOTE | 2018-11-21 08:18 | PCM.DS ---
Discharge Summary Date of Admission: 11/20/18 03:24 Admitting Physician: VALENTINA ESPINO Primary Care Provider: VALENTINA ESPINO Allergies Allergies No Known Drug Allergies Allergy (Verified 11/19/18 21:46) Hospital Summary - Hospital Course Hospital Course: patient was admitted with recurrent DKA and meth use, gap is closed and off of insulin drip. vomiting has resolved, tolerating po. not interested in any psych services etc. - Vitals & Intake/Output Vital Signs: Vital Signs Temperature 97.8 F 11/21/18 06:34 Pulse Rate 80 11/21/18 06:34 Respiratory Rate 20 11/21/18 06:34 Blood Pressure 153/107 11/21/18 06:34 O2 Sat by Pulse Oximetry 98 11/21/18 06:34 Intake & Output: Intake & Output 11/18/18 11/19/18 11/20/18 11/21/18 11:59 11:59 11:59 11:59 Intake Total 741 2246 Output Total 770 1520 Balance -29 726 Weight 64.8 kg 66.1 kg - Lab Result Diagrams: 11/19/18 23:24 11/20/18 08:06 Lab Results-Last 24 Hrs: Accuchecks Date 11/20/18 Date 11/20/18 Date 11/20/18 Date 11/20/18 Time 21:00 Time 16:30 Time 11:30 Time 09:00 Accucheck Value: 203 Accucheck Value: 200 Accucheck Value: 171 Accucheck Value: 84 Lab Results-Last 24 Hours 11/20/18 11/20/18 Range/Units 08:06 10:45 Sodium 136 L (137-145) mmol/L Potassium 3.9 (3.5-5.1) mmol/L Chloride 99 (98-107) mmol/L Carbon Dioxide 26 (22-30) mmol/L Anion Gap 15.5 H (5-15) MEQ/L BUN 24 H (9-20) mg/dL Creatinine 0.87 (0.66-1.25) mg/dL Estimated GFR > 60.0 ML/MIN Glucose 115 H (74-106) mg/dL Hemoglobin A1c 9.72 H (4.5-6.0) % Calcium 8.8 (8.4-10.2) mg/dL Micro Results-Entire Visit: Accuchecks Date 11/20/18 Date 11/20/18 Date 11/20/18 Date 11/20/18 Time 21:00 Time 16:30 Time 11:30 Time 09:00 Accucheck Value: 203 Accucheck Value: 200 Accucheck Value: 171 Accucheck Value: 84 Discharge Exam General Appearance: no apparent distress, alert Skin Exam: normal color, warm, dry Respiratory Exam: normal breath sounds, lungs clear, No respiratory distress Cardiovascular Exam: regular rate/rhythm, normal heart sounds Gastrointestinal/Abdomen Exam: soft, No tenderness, No mass Extremity Exam: normal inspection, normal range of motion Final Diagnosis/Problem List - Final Discharge Diagnosis/Problem (1) DKA (diabetic ketoacidoses) Current Visit: No Status: Acute Onset Date: ~09/14/18 Assessment & Plan: resolved, stressed compliance with meds and avoidance of illicit drugs Code(s): E13.10 - OTH DIABETES MELLITUS WITH KETOACIDOSIS WITHOUT COMA (2) Nausea and vomiting Current Visit: Yes Status: Acute Code(s): R11.2 - NAUSEA WITH VOMITING, UNSPECIFIED (3) Illicit drug use Current Visit: No Status: Chronic Onset Date: ~05/30/18 Code(s): F19.90 - OTHER PSYCHOACTIVE SUBSTANCE USE, UNSPECIFIED, UNCOMPLICATED - Discharge Disposition: Home, Self-Care Condition: Good Prescriptions: New Metoprolol Tartrate 50 mg [Lopressor 50 MG] 50 mg PO DAILY #30 tablet Continue Insulin Glargine,Hum.rec.anlog [Basaglar Kwikpen U-100] 20 unit SQ DAILY #5 insuln.pen Ondansetron ODT 4 MG [Zofran Odt 4 mg] 4 mg PO Q6H PRN PRN #10 tab.rapdis PRN Reason: Nausea/Vomiting Insulin Aspart [NovoLOG Insulin] 5 unit SQ TIDAC #5 pens Follow up with: VALENTINA ESPINO [Primary Care Provider] - 1 Week
[2018-11-21] MEDS: Lopressor 50 MG PO SCH (08:41)
[2018-11-21] MEDS: Lantus Insulin SQ SCH (08:45)
[2018-11-21] MEDS: Zofran 4 MG/2 ML VIAL IV PRN (08:48)
[2018-11-21 11:50] VITALS: BP 148/89; PULSE 74; O2SAT 96
== END 2018-11-21 11:40 | disposition home or self-care (01) ==
LOC: ED 21:36 → ICU 11-20 03:24
PROVIDERS: ADMIT Family Medicine; ATTEND Family Medicine
DX: E10.10 Type 1 diabetes mellitus with ketoacidosis without coma (principal); F19.90 Other psychoactive substance use, unspecified, uncomplicated; R11.2 Nausea with vomiting, unspecified; Z79.4 Long term (current) use of insulin; Z79.899 Other long term (current) drug therapy
CPT/HCPCS: 36000; 36415; 80048; 80053; 80307; 81001; 82150; 82805; 82947; 82962; 83036; 83690; 85025; 93005; 93041; 93268; 96360; 96361; 96365; 96374; 96376; 99285; G0378; G0480; J1815; J2405; J2550; A9270-GY

== ENCOUNTER 2019-08-01 01:54 | Observation (INO) | payer OTHER ==
[2019-08-01] MEDS ORDERED: Sodium Chloride 0.9% 1000 ML 1,000 ML IV STA ×2 (02:14→03:14)
[2019-08-01] MEDS ORDERED: Zofran 4 MG/2 ML VIAL IV ONE (02:14)
[2019-08-01] MEDS ORDERED: Pepcid 20 MG VIAL IV ONE ×2 (02:14→02:17)
--- NOTE | 2019-08-01 02:14 | ERPHSYRPT ---
- History of Present Illness Time Seen by Provider: 08/01/19 02:10 Historian: patient Exam Limitations: no limitations Patient Subjective Stated Complaint: pt states that he has vomitted for the past 3 days, pt states that he had liquid diarrhea 2 days ago, pt states that he is unable to keep anything done the past 3 days, pt states pain to abdomen, back and throat Triage Nursing Assessment: pt ambulated into the ER, pt AxO x4, pt is vomitting yellow bile, pt abdomen is tender to the touch, pt has hypoactive bowel sounds Physician History: 33 y/o diabetic, noncompliant white male presents with 3 day h/o vomiting and diarrhea. pt unable to keep fluids down. this has been a recurrent problem for this pt. he states he has some mild generalized abd pain and sore throat. Timing/Duration: day(s) (3) Activities at Onset: none Quality: cramping Abdominal Pain Onset Location: generalized abdomen Pain Radiation: no radiation Severity of Pain-Max: mild Severity of Pain-Current: mild Modifying Factors: Improves With: vomiting Associated Symptoms: diarrhea, loss of appetite, nausea, vomiting Previous symptoms: same symptoms as today Allergies/Adverse Reactions: No Known Drug Allergies Allergy (Verified 08/01/19 02:10) Hx Tetanus, Diphtheria Vaccination/Date Given: Yes Hx Influenza Vaccination/Date Given: No Hx Pneumococcal Vaccination/Date Given: No - Review of Systems Constitutional: Malaise, Weakness Eyes: No Symptoms Ears, Nose, & Throat: No Symptoms Respiratory: No Symptoms Cardiac: No Symptoms Abdominal/Gastrointestinal: Abdominal Pain (mild generalized), Nausea, Vomiting , Diarrhea Genitourinary Symptoms: No Symptoms Musculoskeletal: No Symptoms Skin: No Symptoms Neurological: No Symptoms Psychological: No Symptoms Endocrine: No Symptoms Hematologic/Lymphatic: No Symptoms Immunological/Allergic: No Symptoms All Other Systems: Reviewed and Negative - Past Medical History Pertinent Past Medical History: Yes Neurological History: No Pertinent History ENT History: No Pertinent History Cardiac History: No Pertinent History Respiratory History: No Pertinent History Endocrine Medical History: Diabetes Type I Musculoskeletal History: No Pertinent History GI Medical History: No Pertinent History History: No Pertinent History Psycho-Social History: Anxiety, Depression Male Reproductive Disorders: No Pertinent History Other Medical History: DKA - Past Surgical History Past Surgical History: No Neuro Surgical History: No Pertinent History Cardiac: No Pertinent History Respiratory: No Pertinent History Gastrointestinal: No Pertinent History Genitourinary: No Pertinent History Musculoskeletal: No Pertinent History Male Surgical History: No Pertinent History Other Surgical History: . - Social History Smoking Status: Never smoker Exposure to second hand smoke: No Drug Use: marijuana, methamphetamines Patient Lives Alone: No - Nursing Vital Signs Nursing Vital Signs: Initial Vital Signs Temperature 97.8 F 08/01/19 01:59 Pulse Rate 127 H 08/01/19 01:59 Respiratory Rate 13 08/01/19 01:59 Blood Pressure 177/119 08/01/19 01:59 O2 Sat by Pulse Oximetry 100 08/01/19 01:59 Pain Scale Pain Intensity 8 - Physical Exam General Appearance: mild distress, alert, lethargy (mild) Ears, Nose, Throat Exam: normal ENT inspection, dry mucous membranes Neck Exam: normal inspection, non-tender, supple, full range of motion Respiratory Exam: normal breath sounds, lungs clear, airway intact, No chest tenderness, No respiratory distress Cardiovascular Exam: tachycardia Gastrointestinal/Abdomen Exam: soft, normal bowel sounds, tenderness (mild diffuse), No guarding, No rebound Rectal Exam: not done Back Exam: normal inspection, normal range of motion, No CVA tenderness, No vertebral tenderness Extremity Exam: normal inspection, normal range of motion, pelvis stable Neurologic Exam: alert, oriented x 3, cooperative, 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 Skin Exam: normal color, warm, dry Lymphatic Exam: No adenopathy SpO2 Interpretation: normal SpO2: 100 O2 Delivery: Room Air - Course Nursing assessment & vital signs reviewed: Yes Ordered Tests: Active Orders 24 hr Category Date Time Status ACCUCHECK [Accucheck] STAT Care 08/01/19 06:24 Active IV Insertion STAT Care 08/01/19 02:14 Active AMYLASE Stat Lab 08/01/19 02:18 Completed CBC W DIFF Stat Lab 08/01/19 02:18 Completed CMP Stat Lab 08/01/19 02:18 Completed LIPASE Stat Lab 08/01/19 02:18 Completed Lactic Acid Stat Lab 08/01/19 02:31 Completed Lactic Acid Stat Lab 08/01/19 05:45 Results [place] Screen Stat Lab 08/01/19 02:18 Completed UA W/RFX UR CULTURE Stat Lab 08/01/19 02:40 Completed Urine Triage Profile Stat Lab 08/01/19 02:40 Completed Transfer Order Routine Transfer 08/01/19 Ordered Medication Summary Discontinued Medications Generic Name Dose Route Start Last Admin Trade Name Kelsie PRN Reason Stop Dose Admin Famotidine 20 mg 08/01/19 02:14 08/01/19 02:21 Pepcid 20 Mg Vial IV 08/01/19 02:15 20 mg STAT ONE Administration Famotidine Confirm 08/01/19 02:17 Pepcid 20 Mg Vial Administered 08/01/19 02:18 Dose 20 mg IV .STK-MED ONE Sodium Chloride 1,000 mls @ 999 mls/hr 08/01/19 02:14 08/01/19 03:35 Sodium Chloride 0.9% 1000 Ml IV 08/01/19 03:14 Infused .Q1H1M STA Infusion Sodium Chloride Confirm 08/01/19 02:17 Sodium Chloride 0.9% 1000 Ml Administered 08/01/19 02:18 Dose 1,000 mls @ ud .ROUTE .STK-MED ONE Sodium Chloride 1,000 mls @ 999 mls/hr 08/01/19 03:14 08/01/19 04:32 Sodium Chloride 0.9% 1000 Ml IV 08/01/19 04:14 Infused .Q1H1M STA Infusion Sodium Chloride Confirm 08/01/19 03:28 Sodium Chloride 0.9% 1000 Ml Administered 08/01/19 03:29 Dose 1,000 mls @ ud .ROUTE .STK-MED ONE Insulin Human Regular 18 unit 08/01/19 03:15 08/01/19 03:26 Novolin R IV 08/01/19 03:16 18 unit STAT ONE Administration Insulin Human Regular 4 unit 08/01/19 05:17 08/01/19 05:29 Novolin R IV 08/01/19 05:18 4 unit STAT ONE Administration Ondansetron HCl 4 mg 08/01/19 02:14 08/01/19 02:21 Zofran 4 Mg/2 Ml Vial IV 08/01/19 02:15 4 mg STAT ONE Administration Ondansetron HCl Confirm 08/01/19 02:17 Zofran 4 Mg/2 Ml Vial Administered 08/01/19 02:18 Dose 4 mg .ROUTE .STK-MED ONE Lab/Rad Data: Laboratory Result Diagrams 08/01/19 02:18 08/01/19 02:18 Laboratory Results 08/01/19 08/01/19 08/01/19 Range/Units 05:45 02:40 02:40 WBC (4.0-10.5) K/mm3 RBC (4.1-5.6) M/mm3 Hgb (12.5-18.0) gm/dl Hct (42-50) % MCV (78-100) fl MCH (26-32) pg MCHC (32-36) g/dl RDW (11.5-14.0) % Plt Count (150-450) K/mm3 MPV (6-9.5) fl Gran % (36.0-66.0) % Eos # (Auto) (0-0.5) Absolute Lymphs (auto) (1.0-4.6) Absolute Monos (auto) (0.0-1.3) Lymphocytes % (24.0-44.0) % Monocytes % (0.0-12.0) % Eosinophils % (0.00-5.0) % Basophils % (0.0-0.4) % Absolute Granulocytes (1.4-6.9) Basophils # (0-0.4) Sodium (137-145) mmol/L Potassium (3.5-5.1) mmol/L Chloride (98-107) mmol/L Carbon Dioxide (22-30) mmol/L Anion Gap (5-15) MEQ/L BUN (9-20) mg/dL Creatinine (0.66-1.25) mg/dL Estimated GFR ML/MIN Glucose (74-106) mg/dL Lactic Acid 1.9 (0.4-2.0) Calcium (8.4-10.2) mg/dL Total Bilirubin (0.2-1.3) mg/dL AST (17-59) U/L ALT (0-50) U/L Alkaline Phosphatase (38-126) U/L Serum Total Protein (6.3-8.2) g/dL Albumin (3.5-5.0) g/dL Amylase (30-110) U/L Lipase (23-300) U/L Urine Color STRAW (YELLOW) Urine Appearance CLEAR (CLEAR) Urine pH 8.0 (5-6) Ur Specific [place] 1.030 (1.005-1.025) Urine Protein 100 (Negative) Urine Ketones SMALL (NEGATIVE) Urine Blood SMALL (0-5) Tomas/ul Urine Nitrite NEGATIVE (NEGATIVE) Urine Bilirubin NEGATIVE (NEGATIVE) Urine Urobilinogen NEGATIVE (0-1) mg/dL Ur Leukocyte Esterase NEGATIVE (NEGATIVE) Urine WBC (Auto) NONE (0-5) /HPF Urine RBC (Auto) 3-5 (0-2) /HPF U Epithel Cells (Auto) NONE (FEW) /HPF Urine Bacteria (Auto) NONE SEEN (NEGATIVE) /HPF Urine Culture Reflexed NO (NO) Urine Glucose >=500 (NEGATIVE) mg/dL Urine Opiates Level NEGATIVE (NEGATIVE) Ur Methadone NEGATIVE (NEGATIVE) Urine Barbiturates NEGATIVE (NEGATIVE) Ur Phencyclidine (PCP) NEGATIVE (NEGATIVE) Urine Amphetamine NEGATIVE (NEGATIVE) U Benzodiazepine Level NEGATIVE (NEGATIVE) Urine Cocaine NEGATIVE (NEGATIVE) Urine Marijuana (THC) POSITIVE (NEGATIVE) Monoscreen (Negative) Influenza Type A Ag (NEGATIVE) Influenza Type B Ag (NEGATIVE) RSV (PCR) (Negative) 08/01/19 08/01/19 08/01/19 Range/Units 02:31 02:23 02:18 WBC (4.0-10.5) K/mm3 RBC (4.1-5.6) M/mm3 Hgb (12.5-18.0) gm/dl Hct (42-50) % MCV (78-100) fl MCH (26-32) pg MCHC (32-36) g/dl RDW (11.5-14.0) % Plt Count (150-450) K/mm3 MPV (6-9.5) fl Gran % (36.0-66.0) % Eos # (Auto) (0-0.5) Absolute Lymphs (auto) (1.0-4.6) Absolute Monos (auto) (0.0-1.3) Lymphocytes % (24.0-44.0) % Monocytes % (0.0-12.0) % Eosinophils % (0.00-5.0) % Basophils % (0.0-0.4) % Absolute Granulocytes (1.4-6.9) Basophils # (0-0.4) Sodium (137-145) mmol/L Potassium (3.5-5.1) mmol/L Chloride (98-107) mmol/L Carbon Dioxide (22-30) mmol/L Anion Gap (5-15) MEQ/L BUN (9-20) mg/dL Creatinine (0.66-1.25) mg/dL Estimated GFR ML/MIN Glucose (74-106) mg/dL Lactic Acid 3.5 H (0.4-2.0) Calcium (8.4-10.2) mg/dL Total Bilirubin (0.2-1.3) mg/dL AST (17-59) U/L ALT (0-50) U/L Alkaline Phosphatase (38-126) U/L Serum Total Protein (6.3-8.2) g/dL Albumin (3.5-5.0) g/dL Amylase (30-110) U/L Lipase (23-300) U/L Urine Color (YELLOW) Urine Appearance (CLEAR) Urine pH (5-6) Ur Specific [place] (1.005-1.025) Urine Protein (Negative) Urine Ketones (NEGATIVE) Urine Blood (0-5) Tomas/ul Urine Nitrite (NEGATIVE) Urine Bilirubin (NEGATIVE) Urine Urobilinogen (0-1) mg/dL Ur Leukocyte Esterase (NEGATIVE) Urine WBC (Auto) (0-5) /HPF Urine RBC (Auto) (0-2) /HPF U Epithel Cells (Auto) (FEW) /HPF Urine Bacteria (Auto) (NEGATIVE) /HPF Urine Culture Reflexed (NO) Urine Glucose (NEGATIVE) mg/dL Urine Opiates Level (NEGATIVE) Ur Methadone (NEGATIVE) Urine Barbiturates (NEGATIVE) Ur Phencyclidine (PCP) (NEGATIVE) Urine Amphetamine (NEGATIVE) U Benzodiazepine Level (NEGATIVE) Urine Cocaine (NEGATIVE) Urine Marijuana (THC) (NEGATIVE) Monoscreen NEGATIVE (Negative) Influenza Type A Ag NEGATIVE (NEGATIVE) Influenza Type B Ag NEGATIVE (NEGATIVE) RSV (PCR) NEGATIVE (Negative) 08/01/19 08/01/19 Range/Units 02:18 02:18 WBC 13.0 H (4.0-10.5) K/mm3 RBC 5.02 (4.1-5.6) M/mm3 Hgb 14.4 (12.5-18.0) gm/dl Hct 41.4 L (42-50) % MCV 82.5 (78-100) fl MCH 28.7 (26-32) pg MCHC 34.8 (32-36) g/dl RDW 12.2 (11.5-14.0) % Plt Count 495 H (150-450) K/mm3 MPV 8.7 (6-9.5) fl Gran % 81.5 H (36.0-66.0) % Eos # (Auto) 0.01 (0-0.5) Absolute Lymphs (auto) 1.11 (1.0-4.6) Absolute Monos (auto) 1.25 (0.0-1.3) Lymphocytes % 8.6 L (24.0-44.0) % Monocytes % 9.6 (0.0-12.0) % Eosinophils % 0.1 (0.00-5.0) % Basophils % 0.2 (0.0-0.4) % Absolute Granulocytes 10.58 H (1.4-6.9) Basophils # 0.02 (0-0.4) Sodium 131 L (137-145) mmol/L Potassium 4.2 (3.5-5.1) mmol/L Chloride 80 L (98-107) mmol/L Carbon Dioxide 34 H (22-30) mmol/L Anion Gap 21.0 H (5-15) MEQ/L BUN 28 H (9-20) mg/dL Creatinine 1.02 (0.66-1.25) mg/dL Estimated GFR > 60.0 ML/MIN Glucose 639 H* (74-106) mg/dL Lactic Acid (0.4-2.0) Calcium 10.2 (8.4-10.2) mg/dL Total Bilirubin 1.10 (0.2-1.3) mg/dL AST 22 (17-59) U/L ALT 25 (0-50) U/L Alkaline Phosphatase 124 (38-126) U/L Serum Total Protein 8.5 H (6.3-8.2) g/dL Albumin 4.6 (3.5-5.0) g/dL Amylase 58 (30-110) U/L Lipase < 10 L (23-300) U/L Urine Color (YELLOW) Urine Appearance (CLEAR) Urine pH (5-6) Ur Specific [place] (1.005-1.025) Urine Protein (Negative) Urine Ketones (NEGATIVE) Urine Blood (0-5) Tomas/ul Urine Nitrite (NEGATIVE) Urine Bilirubin (NEGATIVE) Urine Urobilinogen (0-1) mg/dL Ur Leukocyte Esterase (NEGATIVE) Urine WBC (Auto) (0-5) /HPF Urine RBC (Auto) (0-2) /HPF U Epithel Cells (Auto) (FEW) /HPF Urine Bacteria (Auto) (NEGATIVE) /HPF Urine Culture Reflexed (NO) Urine Glucose (NEGATIVE) mg/dL Urine Opiates Level (NEGATIVE) Ur Methadone (NEGATIVE) Urine Barbiturates (NEGATIVE) Ur Phencyclidine (PCP) (NEGATIVE) Urine Amphetamine (NEGATIVE) U Benzodiazepine Level (NEGATIVE) Urine Cocaine (NEGATIVE) Urine Marijuana (THC) (NEGATIVE) Monoscreen (Negative) Influenza Type A Ag (NEGATIVE) Influenza Type B Ag (NEGATIVE) RSV (PCR) (Negative) - Progress Progress: improved Discussed with : Silvestre Counseled pt/family regarding: lab results, diagnosis - Departure Departure Disposition: Observation Clinical Impression: DKA (diabetic ketoacidoses), Vomiting and diarrhea Condition: Stable Critical Care Time: Yes Critical Care Time(excluding separately billable procedures): Critical 30-74 mins Referrals: VALENTINA ESPINO [Primary Care Provider] -
[2019-08-01] MEDS ORDERED: Zofran 4 MG/2 ML VIAL ONE (02:17)
[2019-08-01] MEDS ORDERED: Sodium Chloride 0.9% 1000 ML 1,000 ML ONE ×2 (02:17→03:28)
[2019-08-01 02:22] LABS: Absolute Neutrophil Ct (ANC) 10.58 (1.4-6.9); BASOPHIL % 0.2 % (0.0-0.4); Basophil (Absolute #) 0.02 (0-0.4); Eosinophil % 0.1 % (0.00-5.0); Eosinophil (Absolute #) 0.01 (0-0.5); Hematocrit 41.4 % (42-50); Hemoglobin 14.4 gm/dl (12.5-18.0); Lymphocyte (Absolute #) 1.11 (1.0-4.6); Lymphocytes % 8.6 % (24.0-44.0); Mean Cell Volume 82.5 fl (78-100); Mean Corpuscular Hemoglobin 28.7 pg (26-32); Mean Corpuscular Hgb Concent. 34.8 g/dl (32-36); Mean Platelet Volume 8.7 fl (6-9.5); Monocyte (Absolute #) 1.25 (0.0-1.3); Monocytes % 9.6 % (0.0-12.0); Neutrophil % 81.5 % (36.0-66.0); Platelet Count 495 K/mm3 (150-450); Red Blood Count 5.02 M/mm3 (4.1-5.6); Red Cell Distribution Width 12.2 % (11.5-14.0)
[2019-08-01 02:34] LABS: ALBUMIN 4.6 g/dL (3.5-5.0); ALKALINE PHOSPHATASE 124 U/L (38-126); AMYLASE 58 U/L (30-110); BLOOD UREA NITROGEN 28 mg/dL (9-20); CHLORIDE 80 mmol/L (98-107); Calcium 10.2 mg/dL (8.4-10.2); Carbon Dioxide 34 mmol/L (22-30); Creatinine 1 1.02 mg/dL (0.66-1.25); Potassium 4.2 mmol/L (3.5-5.1); SGOT/AST 22 U/L (17-59); SGPT/ALT 25 U/L (0-50); SODIUM 131 mmol/L (137-145); Total Protein 8.5 g/dL (6.3-8.2)
[2019-08-01 02:43] LABS: Glucose 639 mg/dL (74-106); LIPASE < 10 U/L (23-300)
[2019-08-01 02:45] LABS: Lactic Acid 3.5 (0.4-2.0)
[2019-08-01 02:51] LABS: Appearance CLEAR (CLEAR); Bacteria NONE SEEN /HPF (NEGATIVE); Bilirubin NEGATIVE (NEGATIVE); Blood SMALL Ery/ul (0-5); Glucose >=500 mg/dL (NEGATIVE); Ketones SMALL (NEGATIVE); Leukocyte Esterase NEGATIVE (NEGATIVE); Nitrite NEGATIVE (NEGATIVE); Protein,Urine Dip 100 (Negative); Urobilinogen NEGATIVE mg/dL (0-1)
[2019-08-01 02:58] LABS: INFLUENZA A NEGATIVE (NEGATIVE); INFLUENZA B NEGATIVE (NEGATIVE); RESPIRATORY SYNCTIAL VIRUS NEGATIVE (Negative)
[2019-08-01 03:02] LABS: Amphetamine,Urine NEGATIVE (NEGATIVE); Barbiturate,Urine NEGATIVE (NEGATIVE); Benzodiazepine,Urine NEGATIVE (NEGATIVE); Cocaine,Urine NEGATIVE (NEGATIVE); Methadone,Urine NEGATIVE (NEGATIVE); Opiate,Urine NEGATIVE (NEGATIVE); PCP,Urine NEGATIVE (NEGATIVE); THC,Urine POSITIVE (NEGATIVE)
[2019-08-01] MEDS ORDERED: NovoLIN R IV ONE ×2 (03:15→05:17)
[2019-08-01 05:56] LABS: Lactic Acid 1.9 (0.4-2.0)
[2019-08-01] MEDS ORDERED: TYLENOL 325 MG PO PRN (06:56)
[2019-08-01] MEDS: Zofran 4 MG/2 ML VIAL IV PRN (07:17)
[2019-08-01] MEDS: Sodium Chloride 0.9% 1000 ML 1,000 ML IV SCH ×3 (07:17→21:15)
[2019-08-01 08:20] LABS: Lactic Acid 1.9 (0.4-2.0)
[2019-08-01] MEDS: NovoLIN R SQ PRN ×2 (11:14→21:21)
[2019-08-01] MEDS ORDERED: Phenergan 25 MG INJ IV PRN (11:17)
[2019-08-01 12:09] LABS: ANION GAP 10.7 MEQ/L (5-15); BLOOD UREA NITROGEN 19 mg/dL (9-20); CHLORIDE 92 mmol/L (98-107); Calcium 8.7 mg/dL (8.4-10.2); Carbon Dioxide 33 mmol/L (22-30); Creatinine 1 0.75 mg/dL (0.66-1.25); Glucose 254 mg/dL (74-106); MAGNESIUM 1.7 mg/dL (1.6-2.3); Potassium 3.7 mmol/L (3.5-5.1); SODIUM 133 mmol/L (137-145)
--- NOTE | 2019-08-01 14:17 | PCM.HP ---
History of Present Illness - Chief Complaint Chief Complaint: dka History of Present Illness: is a 33 year old male pt with no local MD with uncontrolled diabetes and polysubstance abuse who was admitted through ER with hyperglycemia. His bicarb was 34, with anion gap of 21.0. He complaines of being ill with abd pain, N/V for 3d. He was having diarrhea but it's resolved. Denies fever. Pain is mid abdomen, 6/10, and he is currently nauseated but did not vomit during the interview. Pt does respond to questions with very short answers. Pt has a long history of hospital admissions with very similar symptoms. His UDS was positive for marijuana, but he denies recent use of large amounts of the drug. 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 Denies having another doctor. - Review of Systems Abdominal/Gastrointestinal: Abdominal Pain, Nausea, Vomiting, Diarrhea All Other Systems: Reviewed and Negative Medications & Allergies Home Medications: Home Medication List Insulin Glargine,Hum.rec.anlog [Basaglar Kwikpen U-100] 20 unit SQ DAILY #5 insuln.pen 08/18/18 [Rx Confirmed 08/01/19] Insulin Aspart [NovoLOG Insulin] 5 unit SQ TIDAC #5 pens 11/21/18 [Rx Confirmed 08/01/19] Allergies/Adverse Reactions: Allergies Allergy/AdvReac Type Severity Reaction Status Date / Time No Known Drug Allergies Allergy Verified 08/01/19 02:10 - Past Medical History Past Medical History: Yes Neurological History: No Pertinent History ENT History: No Pertinent History Cardiac History: No Pertinent History Respiratory History: No Pertinent History Endocrine Medical History: Diabetes Type I Musculoskelatal History: No Pertinent History GI Medical History: No Pertinent History History: No Pertinent History Pyscho-Social History: Anxiety, Depression Male Reproductive Disorders: No Pertinent History Comment: DKA - Past Surgical History Past Surgical History: No Neuro Surgical History: No Pertinent History Cardiac History: No Pertinent History Respiratory Surgery: No Pertinent History GI Surgical History: No Pertinent History Genitourinary Surgical Hx: No Pertinent History Musculskeletal Surgical Hx: No Pertinent History Male Surgical History: No Pertinent History Other Surgical History: . - Social History Smoking Status: Current every day smoker Exposure to second hand smoke: No Alcohol: Occasionally Drug Use: marijuana, methamphetamines - Physical Exam Vital Signs: Vital Signs - 24 hr Temp Pulse Resp BP Pulse Ox 08/01/19 12:30 98 F 84 18 128/74 95 08/01/19 11:52 18 08/01/19 07:24 18 08/01/19 07:18 98.4 F 99 H 18 131/76 97 08/01/19 07:17 98.4 F 99 H 18 131/76 97 08/01/19 06:32 100 08/01/19 06:26 99 H 144/94 96 08/01/19 05:03 103 H 147/92 98 08/01/19 04:17 98 H 113/77 98 08/01/19 03:05 92 H 14 167/89 97 08/01/19 01:59 97.8 F 127 H 13 177/119 100 General Appearance: moderate distress (increased pain with hiccups), alert Neurologic Exam: alert, cooperative, other (depressed limited affect as usual) Eye Exam: eyes nml inspection Ears, Nose, Throat Exam: moist mucous membranes Neck Exam: normal inspection, non-tender, No lymphadenopathy Respiratory Exam: normal breath sounds, lungs clear, No crackles/rales, No rhonchi, No wheezing Cardiovascular Exam: regular rate/rhythm, normal heart sounds, No murmur Gastrointestinal/Abdomen Exam: soft, tenderness (throughout), No normal bowel sounds (hypoactive, but present), No distention, No mass, No guarding, No rebound Back Exam: normal inspection, No rash Extremity Exam: No pedal edema, No swelling Skin Exam: normal color, warm, dry, No rash Results - Labs Lab/Micro Results: Accuchecks Date 08/01/19 Date 08/01/19 Time 11:52 Time 07:24 Accucheck Value: 260 Accucheck Value: 200 Accucheck Value: 200 Accucheck Value: 327 Accucheck Value: 591 Lab Results-Last 24 Hours 08/01/19 08/01/19 08/01/19 Range/Units 02:18 02:18 02:18 WBC 13.0 H (4.0-10.5) K/mm3 RBC 5.02 (4.1-5.6) M/mm3 Hgb 14.4 (12.5-18.0) gm/dl Hct 41.4 L (42-50) % MCV 82.5 (78-100) fl MCH 28.7 (26-32) pg MCHC 34.8 (32-36) g/dl RDW 12.2 (11.5-14.0) % Plt Count 495 H (150-450) K/mm3 MPV 8.7 (6-9.5) fl Gran % 81.5 H (36.0-66.0) % Eos # (Auto) 0.01 (0-0.5) Absolute Lymphs (auto) 1.11 (1.0-4.6) Absolute Monos (auto) 1.25 (0.0-1.3) Lymphocytes % 8.6 L (24.0-44.0) % Monocytes % 9.6 (0.0-12.0) % Eosinophils % 0.1 (0.00-5.0) % Basophils % 0.2 (0.0-0.4) % Absolute Granulocytes 10.58 H (1.4-6.9) Basophils # 0.02 (0-0.4) Sodium 131 L (137-145) mmol/L Potassium 4.2 (3.5-5.1) mmol/L Chloride 80 L (98-107) mmol/L Carbon Dioxide 34 H (22-30) mmol/L Anion Gap 21.0 H (5-15) MEQ/L BUN 28 H (9-20) mg/dL Creatinine 1.02 (0.66-1.25) mg/dL Estimated GFR > 60.0 ML/MIN Glucose 639 H* (74-106) mg/dL Hemoglobin A1c (4.5-6.0) % Lactic Acid (0.4-2.0) Calcium 10.2 (8.4-10.2) mg/dL Magnesium (1.6-2.3) mg/dL Total Bilirubin 1.10 (0.2-1.3) mg/dL AST 22 (17-59) U/L ALT 25 (0-50) U/L Alkaline Phosphatase 124 (38-126) U/L Serum Total Protein 8.5 H (6.3-8.2) g/dL Albumin 4.6 (3.5-5.0) g/dL Amylase 58 (30-110) U/L Lipase < 10 L (23-300) U/L Urine Color (YELLOW) Urine Appearance (CLEAR) Urine pH (5-6) Ur Specific [place] (1.005-1.025) Urine Protein (Negative) Urine Ketones (NEGATIVE) Urine Blood (0-5) Tomas/ul Urine Nitrite (NEGATIVE) Urine Bilirubin (NEGATIVE) Urine Urobilinogen (0-1) mg/dL Ur Leukocyte Esterase (NEGATIVE) Urine WBC (Auto) (0-5) /HPF Urine RBC (Auto) (0-2) /HPF U Epithel Cells (Auto) (FEW) /HPF Urine Bacteria (Auto) (NEGATIVE) /HPF Urine Culture Reflexed (NO) Urine Glucose (NEGATIVE) mg/dL Urine Opiates Level (NEGATIVE) Ur Methadone (NEGATIVE) Urine Barbiturates (NEGATIVE) Ur Phencyclidine (PCP) (NEGATIVE) Urine Amphetamine (NEGATIVE) U Benzodiazepine Level (NEGATIVE) Urine Cocaine (NEGATIVE) Urine Marijuana (THC) (NEGATIVE) Ethyl Alcohol (0-10) mg/dL Monoscreen NEGATIVE (Negative) Influenza Type A Ag (NEGATIVE) Influenza Type B Ag (NEGATIVE) RSV (PCR) (Negative) 08/01/19 08/01/19 08/01/19 Range/Units 02:23 02:31 02:40 WBC (4.0-10.5) K/mm3 RBC (4.1-5.6) M/mm3 Hgb (12.5-18.0) gm/dl Hct (42-50) % MCV (78-100) fl MCH (26-32) pg MCHC (32-36) g/dl RDW (11.5-14.0) % Plt Count (150-450) K/mm3 MPV (6-9.5) fl Gran % (36.0-66.0) % Eos # (Auto) (0-0.5) Absolute Lymphs (auto) (1.0-4.6) Absolute Monos (auto) (0.0-1.3) Lymphocytes % (24.0-44.0) % Monocytes % (0.0-12.0) % Eosinophils % (0.00-5.0) % Basophils % (0.0-0.4) % Absolute Granulocytes (1.4-6.9) Basophils # (0-0.4) Sodium (137-145) mmol/L Potassium (3.5-5.1) mmol/L Chloride (98-107) mmol/L Carbon Dioxide (22-30) mmol/L Anion Gap (5-15) MEQ/L BUN (9-20) mg/dL Creatinine (0.66-1.25) mg/dL Estimated GFR ML/MIN Glucose (74-106) mg/dL Hemoglobin A1c (4.5-6.0) % Lactic Acid 3.5 H (0.4-2.0) Calcium (8.4-10.2) mg/dL Magnesium (1.6-2.3) mg/dL Total Bilirubin (0.2-1.3) mg/dL AST (17-59) U/L ALT (0-50) U/L Alkaline Phosphatase (38-126) U/L Serum Total Protein (6.3-8.2) g/dL Albumin (3.5-5.0) g/dL Amylase (30-110) U/L Lipase (23-300) U/L Urine Color STRAW (YELLOW) Urine Appearance CLEAR (CLEAR) Urine pH 8.0 (5-6) Ur Specific [place] 1.030 (1.005-1.025) Urine Protein 100 (Negative) Urine Ketones SMALL (NEGATIVE) Urine Blood SMALL (0-5) Tomas/ul Urine Nitrite NEGATIVE (NEGATIVE) Urine Bilirubin NEGATIVE (NEGATIVE) Urine Urobilinogen NEGATIVE (0-1) mg/dL Ur Leukocyte Esterase NEGATIVE (NEGATIVE) Urine WBC (Auto) NONE (0-5) /HPF Urine RBC (Auto) 3-5 (0-2) /HPF U Epithel Cells (Auto) NONE (FEW) /HPF Urine Bacteria (Auto) NONE SEEN (NEGATIVE) /HPF Urine Culture Reflexed NO (NO) Urine Glucose >=500 (NEGATIVE) mg/dL Urine Opiates Level (NEGATIVE) Ur Methadone (NEGATIVE) Urine Barbiturates (NEGATIVE) Ur Phencyclidine (PCP) (NEGATIVE) Urine Amphetamine (NEGATIVE) U Benzodiazepine Level (NEGATIVE) Urine Cocaine (NEGATIVE) Urine Marijuana (THC) (NEGATIVE) Ethyl Alcohol (0-10) mg/dL Monoscreen (Negative) Influenza Type A Ag NEGATIVE (NEGATIVE) Influenza Type B Ag NEGATIVE (NEGATIVE) RSV (PCR) NEGATIVE (Negative) 08/01/19 08/01/19 08/01/19 Range/Units 02:40 05:45 07:50 WBC (4.0-10.5) K/mm3 RBC (4.1-5.6) M/mm3 Hgb (12.5-18.0) gm/dl Hct (42-50) % MCV (78-100) fl MCH (26-32) pg MCHC (32-36) g/dl RDW (11.5-14.0) % Plt Count (150-450) K/mm3 MPV (6-9.5) fl Gran % (36.0-66.0) % Eos # (Auto) (0-0.5) Absolute Lymphs (auto) (1.0-4.6) Absolute Monos (auto) (0.0-1.3) Lymphocytes % (24.0-44.0) % Monocytes % (0.0-12.0) % Eosinophils % (0.00-5.0) % Basophils % (0.0-0.4) % Absolute Granulocytes (1.4-6.9) Basophils # (0-0.4) Sodium (137-145) mmol/L Potassium (3.5-5.1) mmol/L Chloride (98-107) mmol/L Carbon Dioxide (22-30) mmol/L Anion Gap (5-15) MEQ/L BUN (9-20) mg/dL Creatinine (0.66-1.25) mg/dL Estimated GFR ML/MIN Glucose (74-106) mg/dL Hemoglobin A1c (4.5-6.0) % Lactic Acid 1.9 1.9 (0.4-2.0) Calcium (8.4-10.2) mg/dL Magnesium (1.6-2.3) mg/dL Total Bilirubin (0.2-1.3) mg/dL AST (17-59) U/L ALT (0-50) U/L Alkaline Phosphatase (38-126) U/L Serum Total Protein (6.3-8.2) g/dL Albumin (3.5-5.0) g/dL Amylase (30-110) U/L Lipase (23-300) U/L Urine Color (YELLOW) Urine Appearance (CLEAR) Urine pH (5-6) Ur Specific [place] (1.005-1.025) Urine Protein (Negative) Urine Ketones (NEGATIVE) Urine Blood (0-5) Tomas/ul Urine Nitrite (NEGATIVE) Urine Bilirubin (NEGATIVE) Urine Urobilinogen (0-1) mg/dL Ur Leukocyte Esterase (NEGATIVE) Urine WBC (Auto) (0-5) /HPF Urine RBC (Auto) (0-2) /HPF U Epithel Cells (Auto) (FEW) /HPF Urine Bacteria (Auto) (NEGATIVE) /HPF Urine Culture Reflexed (NO) Urine Glucose (NEGATIVE) mg/dL Urine Opiates Level NEGATIVE (NEGATIVE) Ur Methadone NEGATIVE (NEGATIVE) Urine Barbiturates NEGATIVE (NEGATIVE) Ur Phencyclidine (PCP) NEGATIVE (NEGATIVE) Urine Amphetamine NEGATIVE (NEGATIVE) U Benzodiazepine Level NEGATIVE (NEGATIVE) Urine Cocaine NEGATIVE (NEGATIVE) Urine Marijuana (THC) POSITIVE (NEGATIVE) Ethyl Alcohol (0-10) mg/dL Monoscreen (Negative) Influenza Type A Ag (NEGATIVE) Influenza Type B Ag (NEGATIVE) RSV (PCR) (Negative) 08/01/19 08/01/19 08/01/19 Range/Units 07:56 11:44 11:44 WBC (4.0-10.5) K/mm3 RBC (4.1-5.6) M/mm3 Hgb (12.5-18.0) gm/dl Hct (42-50) % MCV (78-100) fl MCH (26-32) pg MCHC (32-36) g/dl RDW (11.5-14.0) % Plt Count (150-450) K/mm3 MPV (6-9.5) fl Gran % (36.0-66.0) % Eos # (Auto) (0-0.5) Absolute Lymphs (auto) (1.0-4.6) Absolute Monos (auto) (0.0-1.3) Lymphocytes % (24.0-44.0) % Monocytes % (0.0-12.0) % Eosinophils % (0.00-5.0) % Basophils % (0.0-0.4) % Absolute Granulocytes (1.4-6.9) Basophils # (0-0.4) Sodium 133 L (137-145) mmol/L Potassium 3.7 (3.5-5.1) mmol/L Chloride 92 L D (98-107) mmol/L Carbon Dioxide 33 H (22-30) mmol/L Anion Gap 10.7 (5-15) MEQ/L BUN 19 (9-20) mg/dL Creatinine 0.75 (0.66-1.25) mg/dL Estimated GFR > 60.0 ML/MIN Glucose 254 H (74-106) mg/dL Hemoglobin A1c 11.83 H (4.5-6.0) % Lactic Acid (0.4-2.0) Calcium 8.7 (8.4-10.2) mg/dL Magnesium 1.7 (1.6-2.3) mg/dL Total Bilirubin (0.2-1.3) mg/dL AST (17-59) U/L ALT (0-50) U/L Alkaline Phosphatase (38-126) U/L Serum Total Protein (6.3-8.2) g/dL Albumin (3.5-5.0) g/dL Amylase (30-110) U/L Lipase (23-300) U/L Urine Color (YELLOW) Urine Appearance (CLEAR) Urine pH (5-6) Ur Specific [place] (1.005-1.025) Urine Protein (Negative) Urine Ketones (NEGATIVE) Urine Blood (0-5) Tomas/ul Urine Nitrite (NEGATIVE) Urine Bilirubin (NEGATIVE) Urine Urobilinogen (0-1) mg/dL Ur Leukocyte Esterase (NEGATIVE) Urine WBC (Auto) (0-5) /HPF Urine RBC (Auto) (0-2) /HPF U Epithel Cells (Auto) (FEW) /HPF Urine Bacteria (Auto) (NEGATIVE) /HPF Urine Culture Reflexed (NO) Urine Glucose (NEGATIVE) mg/dL Urine Opiates Level (NEGATIVE) Ur Methadone (NEGATIVE) Urine Barbiturates (NEGATIVE) Ur Phencyclidine (PCP) (NEGATIVE) Urine Amphetamine (NEGATIVE) U Benzodiazepine Level (NEGATIVE) Urine Cocaine (NEGATIVE) Urine Marijuana (THC) (NEGATIVE) Ethyl Alcohol < 10 (0-10) mg/dL Monoscreen (Negative) Influenza Type A Ag (NEGATIVE) Influenza Type B Ag (NEGATIVE) RSV (PCR) (Negative) Accuchecks Date 08/01/19 Date 08/01/19 Time 11:52 Time 07:24 Accucheck Value: 260 Accucheck Value: 200 Accucheck Value: 200 Accucheck Value: 327 Accucheck Value: 591 - Radiology Impressions Radiology Exams & Impressions: Radiology Procedures Category Date Time Status KUB Routine Exams 08/01/19 12:01 Taken Assessment/Plan (1) DKA (diabetic ketoacidoses) Current Visit: Yes Status: Acute Onset Date: ~09/14/18 Qualifiers: Diabetes mellitus type: type 1 Diabetes mellitus complication detail: without coma Qualified Code(s): E10.10 - Type 1 diabetes mellitus with ketoacidosis without coma Assessment & Plan: He does not take his meds at home. His A1c is 11.83; frankly I'm surprised it' s not higher. Every admission we discuss the importance of taking meds and following up with a doctor outpatient. We have had discharge planning discuss insurance coverage, and we will certainly do so again. Will continue to request that patient follow up after this admission. Code(s): E13.10 - OTH DIABETES MELLITUS WITH KETOACIDOSIS WITHOUT COMA (2) Vomiting and diarrhea Current Visit: Yes Status: Acute Assessment & Plan: Generally pt takes several days of anti-emetics and IV fluids in order to feel better. May have some sort of cyclic vomiting syndrome, vs related to hyperglycemia and uncontrolled DM. Code(s): R11.10 - VOMITING, UNSPECIFIED; R19.7 - DIARRHEA, UNSPECIFIED (3) Diabetes mellitus type I Current Visit: No Status: Chronic Onset Date: ~05/30/18 Qualifiers: (4) Illicit drug use Current Visit: No Status: Chronic Onset Date: ~05/30/18 Code(s): F19.90 - OTHER PSYCHOACTIVE SUBSTANCE USE, UNSPECIFIED, UNCOMPLICATED
[2019-08-01 15:29] LABS: AMYLASE 56 U/L (30-110); LIPASE 11 U/L (23-300)
[2019-08-01] MEDS ORDERED: TRANDATE 20 MG/5 ML SYRINGE IV ONE (20:13)
[2019-08-01] MEDS ORDERED: TRANDATE 100 MG/20 ML MDV FOR DRIP IV ONE (20:42)
--- NOTE | 2019-08-01 20:50 | XRAY ---
Indication: Abdominal pain and vomiting. Comparison: May 30, 2018. KUB now demonstrates mild diffuse scattered colonic fecal debris throughout. Stable pelvic phleboliths. Remaining solid organs and osseous structures unremarkable. Lung bases clear. Impression: New fecal stasis. Comment: Preliminary interpretation was made by [facility] who does not report incidental fecal stasis.
[2019-08-02] MEDS: Sodium Chloride 0.9% 1000 ML 1,000 ML IV SCH ×2 (04:18→12:45)
[2019-08-02 04:41] LABS: Absolute Neutrophil Ct (ANC) 7.92 (1.4-6.9); BASOPHIL % 0.3 % (0.0-0.4); Basophil (Absolute #) 0.03 (0-0.4); Eosinophil % 2.3 % (0.00-5.0); Eosinophil (Absolute #) 0.25 (0-0.5); Hematocrit 36.2 % (42-50); Hemoglobin 12.3 gm/dl (12.5-18.0); Lymphocyte (Absolute #) 1.45 (1.0-4.6); Lymphocytes % 13.6 % (24.0-44.0); Mean Cell Volume 84.8 fl (78-100); Mean Corpuscular Hemoglobin 28.8 pg (26-32); Mean Platelet Volume 8.3 fl (6-9.5); Monocyte (Absolute #) 1.02 (0.0-1.3); Monocytes % 9.6 % (0.0-12.0); Neutrophil % 74.2 % (36.0-66.0); Platelet Count 391 K/mm3 (150-450); Red Blood Count 4.27 M/mm3 (4.1-5.6); Red Cell Distribution Width 12.1 % (11.5-14.0); White Blood Count 10.7 K/mm3 (4.0-10.5)
[2019-08-02 04:48] LABS: ALBUMIN 3.4 g/dL (3.5-5.0); ALKALINE PHOSPHATASE 89 U/L (38-126); ANION GAP 8.5 MEQ/L (5-15); BLOOD UREA NITROGEN 11 mg/dL (9-20); CHLORIDE 101 mmol/L (98-107); Calcium 8.9 mg/dL (8.4-10.2); Carbon Dioxide 31 mmol/L (22-30); Creatinine 1 0.79 mg/dL (0.66-1.25); Glucose 128 mg/dL (74-106); MAGNESIUM 1.7 mg/dL (1.6-2.3); Potassium 3.6 mmol/L (3.5-5.1); SGOT/AST 22 U/L (17-59); SGPT/ALT 16 U/L (0-50); SODIUM 137 mmol/L (137-145); Total Protein 6.7 g/dL (6.3-8.2)
[2019-08-02] MEDS: NovoLIN R SQ PRN ×4 (08:12→21:07)
[2019-08-02] MEDS: Zofran 4 MG/2 ML VIAL IV PRN (08:54)
--- NOTE | 2019-08-02 13:06 | PCM.NOTE ---
Date and Time: 08/02/19 1300 Subjective Assessment: He was given labetalol IV x 1 last night - while sleeping his HR was in the 90s and BP 170 systolic. No elevated BP since then. Has been urinating well. Still nauseated. Still having abd pain, generalized. - Review of Systems Constitutional: No Fever Abdominal/Gastrointestinal: Abdominal Pain, Nausea Objective Exam General Appearance: mild distress (lying quietly in bed), alert (is awake) Neurologic Exam: oriented x 3, cooperative, other (poor eye contact. answers questions with short phrases.) Skin Exam: normal color, warm, dry, No rash Eye Exam: eyes nml inspection Ears, Nose, Throat Exam: moist mucous membranes Respiratory Exam: normal breath sounds, lungs clear, No crackles/rales, No rhonchi, No wheezing Cardiovascular Exam: regular rate/rhythm, normal heart sounds, No murmur Gastrointestinal/Abdomen Exam: soft, tenderness (generalized), No normal bowel sounds (hypoactive but present), No distention, No mass, No guarding, No rebound Extremity Exam: normal inspection, No pedal edema, No swelling OBJECTIVE DATA Vital Signs: Vital Signs - 24 hr Temp Pulse Resp BP Pulse Ox 08/02/19 12:41 98.9 F 88 20 140/85 95 08/02/19 07:17 97.9 F 78 18 129/70 97 08/02/19 04:00 98.2 F 89 17 139/83 95 08/02/19 00:00 98.5 F 90 18 138/97 98 08/01/19 20:00 98.1 F 101 H 17 171/108 98 08/01/19 16:22 98 F 89 18 109/61 98 08/01/19 15:48 18 Pain Assessment - Last Documented Pain Intensity 3 Pain Scale Used 0-10 Pain Scale Intake and Output: Intake & Output 07/31/19 08/01/19 08/02/19 08/03/19 11:59 11:59 11:59 11:59 Intake Total 120 4419 Balance 120 4419 Weight 68.039 kg 68 kg Lab Results: Accuchecks Date 08/02/19 Date 08/01/19 Date 08/01/19 Time 07:30 Time 21:30 Time 01:36 Accucheck Value: 197 Accucheck Value: 211 Lab Results-Last 24 Hours 1208/02/19 08/02/19 Range/Units 15:15 04:39 04:39 WBC 10.7 H (4.0-10.5) K/mm3 RBC 4.27 (4.1-5.6) M/mm3 Hgb 12.3 L (12.5-18.0) gm/dl Hct 36.2 L (42-50) % MCV 84.8 (78-100) fl MCH 28.8 (26-32) pg MCHC 34.0 (32-36) g/dl RDW 12.1 (11.5-14.0) % Plt Count 391 (150-450) K/mm3 MPV 8.3 (6-9.5) fl Gran % 74.2 H (36.0-66.0) % Eos # (Auto) 0.25 (0-0.5) Absolute Lymphs (auto) 1.45 (1.0-4.6) Absolute Monos (auto) 1.02 (0.0-1.3) Lymphocytes % 13.6 L (24.0-44.0) % Monocytes % 9.6 (0.0-12.0) % Eosinophils % 2.3 (0.00-5.0) % Basophils % 0.3 (0.0-0.4) % Absolute Granulocytes 7.92 H (1.4-6.9) Basophils # 0.03 (0-0.4) Sodium 137 (137-145) mmol/L Potassium 3.6 (3.5-5.1) mmol/L Chloride 101 (98-107) mmol/L Carbon Dioxide 31 H (22-30) mmol/L Anion Gap 8.5 (5-15) MEQ/L BUN 11 (9-20) mg/dL Creatinine 0.79 (0.66-1.25) mg/dL Estimated GFR > 60.0 ML/MIN Glucose 128 H (74-106) mg/dL Calcium 8.9 (8.4-10.2) mg/dL Magnesium 1.7 (1.6-2.3) mg/dL Total Bilirubin 0.60 (0.2-1.3) mg/dL AST 22 (17-59) U/L ALT 16 (0-50) U/L Alkaline Phosphatase 89 (38-126) U/L Serum Total Protein 6.7 (6.3-8.2) g/dL Albumin 3.4 L (3.5-5.0) g/dL Amylase 56 (30-110) U/L Lipase 11 L (23-300) U/L Radiology Exams: Radiology Procedures Category Date Time Status KUB Routine Exams 08/01/19 12:01 Completed Assessment/Plan (1) DKA (diabetic ketoacidoses) Current Visit: Yes Status: Resolved Onset Date: ~09/14/18 Qualifiers: Diabetes mellitus type: type 1 Diabetes mellitus complication detail: without coma Qualified Code(s): E10.10 - Type 1 diabetes mellitus with ketoacidosis without coma Assessment & Plan: Putting pt on 8 units of Lantus (looks as though he received 20 units sliding scale insulin in the past 24 hours). Code(s): E13.10 - OTH DIABETES MELLITUS WITH KETOACIDOSIS WITHOUT COMA (2) Vomiting and diarrhea Current Visit: Yes Status: Acute Assessment & Plan: When pt feeling better, can d/c to home. As always, unsure the etiology. Would like him to f/u with GI, and I mentioned this to pt again today. He did have EGD here, will get record of that on the chart. Code(s): R11.10 - VOMITING, UNSPECIFIED; R19.7 - DIARRHEA, UNSPECIFIED (3) Diabetes mellitus type I Current Visit: No Status: Chronic Onset Date: ~05/30/18 Qualifiers: Diabetes mellitus complication status: with hyperglycemia Qualified Code(s) : E10.65 - Type 1 diabetes mellitus with hyperglycemia Assessment & Plan: Will plan to discharge pt to home on 70/30 insulin if that's what's most economical. (4) Illicit drug use Current Visit: No Status: Chronic Onset Date: ~05/30/18 Code(s): F19.90 - OTHER PSYCHOACTIVE SUBSTANCE USE, UNSPECIFIED, UNCOMPLICATED
[2019-08-02] MEDS: PROTONIX 40 MG IV IV SCH (14:53)
[2019-08-02] MEDS: Lantus Insulin SQ SCH (14:53)
[2019-08-02] MEDS ORDERED: NORVASC 5 MG PO ONE (19:49)
[2019-08-03] MEDS ORDERED: APRESOLINE 20 MG/ML INJ ONE (04:23)
[2019-08-03] MEDS: Sodium Chloride 0.9% 1000 ML 1,000 ML IV SCH (04:40)
[2019-08-03] MEDS: NovoLIN R SQ PRN (08:15)
[2019-08-03] MEDS: Lantus Insulin SQ SCH (08:16)
--- NOTE | 2019-08-03 08:38 | PCM.DS ---
Discharge Summary Date of Admission: 08/01/19 06:54 Admitting Physician: VALENTINA ESPINO Primary Care Provider: VALENTINA ESPINO Allergies Allergies No Known Drug Allergies Allergy (Verified 08/01/19 02:10) Hospital Summary - Hospital Course Hospital Course: Pt is a 33 yo male with no local MD, has diabetes (on insulin, poorly controlled ), HTN, and frequent hospitalizations for vomiting and abdominal pain. He came in through ER wtih elevated BS in DKA and with vomiting and abd pain. His bicarb was actually elevated but he did have an anion gap. His sugar corrected but he continued to have nausea until today. He is feeling "fine" today, no nausea, would like to eat a little more. He tells me today that he takes his girlfriend's levemir at home, amount depends on his blood sugar. - Vitals & Intake/Output Vital Signs: Vital Signs Temperature 97.9 F 08/03/19 08:00 Pulse Rate 84 08/03/19 08:00 Respiratory Rate 18 08/03/19 08:00 Blood Pressure 122/75 08/03/19 08:00 O2 Sat by Pulse Oximetry 96 08/03/19 08:00 Intake & Output: Intake & Output 07/31/19 08/01/19 08/02/19 08/03/19 11:59 11:59 11:59 11:59 Intake Total 120 4419 5124 Balance 120 4419 5124 Weight 68.039 kg 68 kg 64.8 kg - Lab Result Diagrams: 08/02/19 04:39 08/02/19 04:39 Lab Results-Last 24 Hrs: Accuchecks Date 08/02/19 Date 08/02/19 Date 08/02/19 Time 21:30 Time 16:30 Time 11:43 Accucheck Value: 220 Accucheck Value: 207 Accucheck Value: 234 Micro Results-Entire Visit: Accuchecks Date 08/02/19 Date 08/02/19 Date 08/02/19 Time 21:30 Time 16:30 Time 11:43 Accucheck Value: 220 Accucheck Value: 207 Accucheck Value: 234 - Radiology Exams Ordered Rad Exams-Entire Visit: Radiology Procedures Category Date Time Status KUB Routine Exams 08/01/19 12:01 Completed Discharge Exam General Appearance: no apparent distress, alert Neurologic Exam: oriented x 3, cooperative Ears, Nose, Throat Exam: moist mucous membranes Neck Exam: normal inspection Respiratory Exam: normal breath sounds, lungs clear, No crackles/rales, No rhonchi, No wheezing Cardiovascular Exam: regular rate/rhythm, normal heart sounds, No murmur Gastrointestinal/Abdomen Exam: soft, normal bowel sounds, No tenderness, No distention, No mass, No guarding, No rebound Extremity Exam: normal inspection, No pedal edema, No swelling Skin Exam: normal color, warm, dry, No rash Final Diagnosis/Problem List - Final Discharge Diagnosis/Problem (1) Diabetes mellitus type I Current Visit: No Status: Chronic Onset Date: ~05/30/18 Assessment & Plan: Will need insulin at home. Discharge planning thinks he has HIP, in which case he may be able to get levemir. If not, would send on 70/30. (2) Vomiting and diarrhea Current Visit: Yes Status: Resolved Assessment & Plan: Needs to f/u with me in office after this hospitalization - staff has set this up, thank you! Had gastritis on EGD 1 yr ago - home on PPI. Code(s): R11.10 - VOMITING, UNSPECIFIED; R19.7 - DIARRHEA, UNSPECIFIED (3) Illicit drug use Current Visit: No Status: Chronic Onset Date: ~05/30/18 Code(s): F19.90 - OTHER PSYCHOACTIVE SUBSTANCE USE, UNSPECIFIED, UNCOMPLICATED (4) Hypertension Current Visit: No Status: Chronic Onset Date: ~05/30/18 Assessment & Plan: Home on losartan 25mg/d. Amlodipine made his stomach upset, and in the past he said one of the BP meds made him "angry" - most likely med to start on would have been lisinopril so I am avoiding that. Code(s): I10 - ESSENTIAL (PRIMARY) HYPERTENSION - Discharge Disposition: Home, Self-Care Condition: Good Prescriptions: New Omeprazole 20 mg PO DAILY #30 capsule. Losartan Potassium 25 mg PO DAILY #30 tablet Continue Insulin Glargine,Hum.rec.anlog [Basaglar Kwikpen U-100] 20 unit SQ DAILY #5 insuln.pen Insulin Aspart [NovoLOG Insulin] 5 unit SQ TIDAC #5 pens Instructions: Diabetic Ketoacidosis (DC) Follow up with: VALENTINA ESPINO [Primary Care Provider] - 08/10/19 9:15 am
[2019-08-03] MEDS: PROTONIX 40 MG IV IV SCH (09:30)
[2019-08-03 12:09] VITALS: BP 135/86; PULSE 108; O2SAT 99
== END 2019-08-03 12:50 | disposition home or self-care (01) ==
LOC: ED 01:54 → MED SURG 06:54
PROVIDERS: ADMIT Family Medicine; ATTEND Family Medicine
DX: E10.10 Type 1 diabetes mellitus with ketoacidosis without coma (principal); I10 Essential (primary) hypertension; F19.90 Other psychoactive substance use, unspecified, uncomplicated; R19.7 Diarrhea, unspecified; R11.2 Nausea with vomiting, unspecified; Z79.4 Long term (current) use of insulin; K20.9 Esophagitis, unspecified; K29.70 Gastritis, unspecified, without bleeding; R10.9 Unspecified abdominal pain
CPT/HCPCS: 36000; 36415; 74018; 80048; 80053; 80307; 81001; 82150; 82962; 83036; 83605; 83690; 83735; 85025; 86308; 87631; 96360; 96361; 96374; 99291; G0378; G0480; 99285; J0360; J2405; J2550; A9270-GY

== ENCOUNTER 2019-09-24 09:11 | Observation (INO) | payer OTHER ==
[2019-09-24] MEDS ORDERED: Sodium Chloride 0.9% 1000 ML 1,000 ML IV STA ×2 (09:38→11:40)
[2019-09-24] MEDS ORDERED: Zofran 4 MG/2 ML VIAL IV ONE ×2 (09:38→12:21)
[2019-09-24] MEDS ORDERED: NOVOLIN R INSULIN (FOR DRIPS)** 100 UNITS in Sodium Chloride 0.9% 100 ML IVPB 100 ML IV SCH ×2 (09:45→14:45)
--- NOTE | 2019-09-24 10:01 | XRAY ---
Indication: Pneumonia. Comparison: January 02, 2018. Portable chest again demonstrates normal heart, lungs, and bony thorax.
[2019-09-24 10:19] LABS: Absolute Neutrophil Ct (ANC) 9.24 (1.4-6.9); BASOPHIL % 0.2 % (0.0-0.4); Basophil (Absolute #) 0.02 (0-0.4); Eosinophil % 0.8 % (0.00-5.0); Eosinophil (Absolute #) 0.09 (0-0.5); Hematocrit 43.3 % (42-50); Hemoglobin 15.2 gm/dl (12.5-18.0); Lymphocyte (Absolute #) 0.93 (1.0-4.6); Lymphocytes % 8.5 % (24.0-44.0); Mean Cell Volume 81.4 fl (78-100); Mean Corpuscular Hemoglobin 28.6 pg (26-32); Mean Corpuscular Hgb Concent. 35.1 g/dl (32-36); Mean Platelet Volume 8.7 fl (7.5-11.0); Monocyte (Absolute #) 0.65 (0.0-1.3); Monocytes % 5.9 % (0.0-12.0); Neutrophil % 84.6 % (36.0-66.0); Platelet Count 403 K/mm3 (150-450); Red Blood Count 5.32 M/mm3 (4.1-5.6); Red Cell Distribution Width 12.4 % (11.5-14.0); White Blood Count 10.9 K/mm3 (4.0-10.5)
[2019-09-24 10:25] LABS: A-aADO2 -1; ABG POTASSIUM 3.8 (3.5-5.1); ARTERIAL BLD GAS O2 SATURATION 98.8 % (95-100); ARTERIAL BLOOD GAS BASE EXCESS 7.4 (-2.0-2.0); ARTERIAL BLOOD GAS FIO2 21 %; ARTERIAL BLOOD GAS PCO2 44 mmHg (35-45); ARTERIAL BLOOD GAS PO2 96 mmHg (75-100); ARTERIAL BLOOD GAS pH 7.47 (7.35-7.45); CARBOXYHEMOGLOBIN 1.5 % THgb (0.0-6.9); HGB O2 SAT 96.5 g/dF (94-100); Lactic Acid 6.2 (0.4-2.0); Methhemoglobin 0.7 % (1.4-1.5); paO2 pAO1 1.01
[2019-09-24 10:26] LABS: ABG SITE LEFT RADIAL; ALLEN TEST OK? YES
[2019-09-24] MEDS ORDERED: Sodium Chloride 0.9% 1000 ML 1,000 ML ONE ×3 (10:34→13:37)
[2019-09-24] MEDS ORDERED: Zofran 4 MG/2 ML VIAL ONE ×2 (10:34→12:26)
[2019-09-24 10:42] LABS: ALBUMIN 4.7 g/dL (3.5-5.0); ALKALINE PHOSPHATASE 130 U/L (38-126); ANION GAP 23.7 MEQ/L (5-15); BLOOD UREA NITROGEN 22 mg/dL (9-20); CHLORIDE 84 mmol/L (98-107); Calcium 10.1 mg/dL (8.4-10.2); Carbon Dioxide 30 mmol/L (22-30); Creatinine 1 0.98 mg/dL (0.66-1.25); ETHYL ALCOHOL < 10 mg/dL (0-10); Glucose 454 mg/dL (74-106); MAGNESIUM 1.8 mg/dL (1.6-2.3); Potassium 4.1 mmol/L (3.5-5.1); SGOT/AST 28 U/L (17-59); SODIUM 134 mmol/L (137-145); Total Protein 8.4 g/dL (6.3-8.2)
[2019-09-24 10:49] LABS: SGPT/ALT 24 U/L (0-50)
[2019-09-24] MEDS ORDERED: MORPHINE SULFATE 2 MG INJ IV ONE (11:15)
--- NOTE | 2019-09-24 11:16 | ERPHSYRPT ---
- History of Present Illness Historian: patient Exam Limitations: clinical condition Patient Subjective Stated Complaint: pt has been vomiting for 5 days, possible DKA Triage Nursing Assessment: Pt brought to the ER by a friend, pt actively vomiting, hypertensive, tachycardic, Accucheck at this time 515, rates pain 10/ 10, abdomen tender with palpatation more in the upper gastric region, hx of DKA , lethargic Physician History: Patient is a 33-year-old male with a history of DKA. Patient presents to our ED with complaints of epigastric pain, nausea and vomiting. Symptoms started approximately 5 days ago. Symptoms have been progressive. No specific worsening or improving factors. No trauma. No fevers reported. Patient admitting to using marijuana. No other illicit drugs used per patient. Timing/Duration: day(s) (5 days) Activities at Onset: none Quality: aching Abdominal Pain Onset Location: epigastric Pain Radiation: no radiation Severity of Pain-Max: severe Severity of Pain-Current: moderate Modifying Factors: Improves With: nothing Associated Symptoms: nausea, vomiting, weakness, No chest pain, No diarrhea, No fever/chills, No fatigue, No headache, No shortness of breath, No syncope Previous symptoms: no prior history Body Map: 1 - Epigastric tenderness to palpation. Allergies/Adverse Reactions: No Known Drug Allergies Allergy (Verified 09/24/19 09:38) Hx Tetanus, Diphtheria Vaccination/Date Given: Yes Hx Influenza Vaccination/Date Given: No Hx Pneumococcal Vaccination/Date Given: No - Review of Systems Constitutional: No Fever, No Chills Eyes: No Symptoms Ears, Nose, & Throat: No Symptoms Respiratory: No Symptoms, No Cough, No Dyspnea Cardiac: No Chest Pain, No Edema, No Syncope Abdominal/Gastrointestinal: Abdominal Pain, Nausea, Vomiting, Appetite Changes, No Diarrhea Genitourinary Symptoms: No Symptoms, No Dysuria Musculoskeletal: No Symptoms, No Back Pain, No Neck Pain Skin: No Symptoms, No Rash Neurological: No Symptoms, No Dizziness, No Focal Weakness, No Sensory Changes Psychological: No Symptoms Endocrine: No Symptoms All Other Systems: Reviewed and Negative - Past Medical History Pertinent Past Medical History: Yes Neurological History: No Pertinent History ENT History: No Pertinent History Cardiac History: No Pertinent History Respiratory History: No Pertinent History Endocrine Medical History: Diabetes Type I Musculoskeletal History: No Pertinent History GI Medical History: No Pertinent History History: No Pertinent History Psycho-Social History: Anxiety, Depression Male Reproductive Disorders: No Pertinent History Other Medical History: DKA - Past Surgical History Past Surgical History: No Neuro Surgical History: No Pertinent History Cardiac: No Pertinent History Respiratory: No Pertinent History Gastrointestinal: No Pertinent History Genitourinary: No Pertinent History Musculoskeletal: No Pertinent History Male Surgical History: No Pertinent History Other Surgical History: . - Social History Smoking Status: Current every day smoker Exposure to second hand smoke: Yes Drug Use: marijuana, methamphetamines Patient Lives Alone: No - Nursing Vital Signs Nursing Vital Signs: Initial Vital Signs Temperature 97.5 F 09/24/19 09:22 Pulse Rate 115 H 09/24/19 09:22 Blood Pressure 181/122 09/24/19 09:22 O2 Sat by Pulse Oximetry 98 09/24/19 09:22 Pain Scale Pain Intensity 10 - Physical Exam General Appearance: no apparent distress, alert Eye Exam: PERRL/EOMI, eyes nml inspection Ears, Nose, Throat Exam: normal ENT inspection, pharynx normal, moist mucous membranes Neck Exam: normal inspection, non-tender, supple, full range of motion Respiratory Exam: normal breath sounds, lungs clear, No respiratory distress Cardiovascular Exam: regular rate/rhythm, normal heart sounds Gastrointestinal/Abdomen Exam: soft, No tenderness, No mass Back Exam: normal inspection, normal range of motion, No CVA tenderness, No vertebral tenderness Extremity Exam: normal inspection, normal range of motion, pelvis stable Neurologic Exam: alert, oriented x 3, cooperative, normal mood/affect, nml cerebellar function, sensation nml, No motor deficits Skin Exam: normal color, warm, dry SpO2: 97 - Course EKG Interpreted by Me: RATE (Tachycardia), Sinus Tach, NORMAL AXIS, NORMAL INTERVALS - Radiology Exams Chest X-ray Interpretation: Teleradiologist Report, No Fracture, No Pneumonia, No Pneumothorax, Nml Mediastinum - CT Exams Abdomen/Pelvis CT Interpretation: Tele-radiologist Report, No Fracture (L5 spondylolysis fecal stasis otherwise no acute intra-abdominal pathology.) Ordered Tests: Active Orders 24 hr Category Date Time Status Accucheck STAT Care 09/24/19 09:38 Active Accucheck STAT Care 09/24/19 11:42 Active Accucheck STAT Care 09/24/19 12:05 Active Laundrette Owner STAT Care 09/24/19 09:39 Active EKG-ER Only STAT Care 09/24/19 09:38 Active IV Insertion STAT Care 09/24/19 09:38 Active IV Insertion-2nd Peripheral STAT Care 09/24/19 09:38 Active Order K Level 2 hours post-inf 2 HRS POST K-INFUSED Care 09/24/19 12:03 Active Pulse Oximetry (ED) STAT Care 09/24/19 09:38 Active Telemetry q4h Care 09/24/19 12:03 Active ABDOMEN AND PELVIS W CONTRAST [CT] Stat Exams 09/24/19 11:07 Completed CHEST 1 VIEW (PORTABLE) Stat Exams 09/24/19 09:47 Completed ARTERIAL BLOOD GASES Urgent Lab 09/24/19 10:22 Completed BMP Stat Lab 09/24/19 12:19 Ordered CBC W DIFF Stat Lab 09/24/19 10:10 Completed CMP Stat Lab 09/24/19 10:10 Completed CULTURE,URINE Stat Lab 09/24/19 09:39 Ordered ETHYL ALCOHOL Stat Lab 09/24/19 10:10 Completed LIPASE Stat Lab 09/24/19 10:10 Completed Lactic Acid Stat Lab 09/24/19 12:26 Received Lactic Acid Urgent Lab 09/24/19 10:22 Completed MAGNESIUM Stat Lab 09/24/19 10:10 Completed TROPONIN Q3H Lab 09/24/19 11:30 Completed TROPONIN Q3H Lab 09/24/19 14:30 Ordered TROPONIN Q3H Lab 09/24/19 17:30 Ordered TROPONIN Q3H Lab 09/24/19 20:30 Ordered TROPONIN Q3H Lab 09/24/19 23:30 Ordered UA W/RFX UR CULTURE Stat Lab 09/24/19 09:39 Uncollected Medication Summary Generic Name Dose Route Start Last Admin Trade Name Freq PRN Reason Stop Dose Admin Insulin Human Regular 100 101 mls @ 0 mls/hr 09/24/19 09:45 09/24/19 10:36 units/ Sodium Chloride IV 10/24/19 09:44 6 ml/hr .Q0M XIN 6 mls/hr Administration Per Protocol Potassium Chloride 20 meq in 100 mls @ 50 mls/hr 09/24/19 12:15 09/24/19 12: 28 Potassium Chloride 20 Meq In Water 100ml IV 09/24/19 16:14 50 mls/hr Q2H XIN Administration Dextrose 250 mls @ 100 mls/hr 09/24/19 13:00 09/24/19 12:45 Dextrose 10% 250 Ml IV 10/24/19 12:59 100 mls/hr .Q2H30M XIN Administration Protocol Discontinued Medications Generic Name Dose Route Start Last Admin Trade Name Kelsie PRN Reason Stop Dose Admin Sodium Chloride 1,000 mls @ 999 mls/hr 09/24/19 09:38 09/24/19 11:41 Sodium Chloride 0.9% 1000 Ml IV 09/24/19 10:38 Infused .Q1H1M STA Infusion Sodium Chloride Confirm 09/24/19 10:34 Sodium Chloride 0.9% 1000 Ml Administered 09/24/19 10:35 Dose 1,000 mls @ ud .ROUTE .STK-MED ONE Sodium Chloride 1,000 mls @ 999 mls/hr 09/24/19 11:40 09/24/19 12:46 Sodium Chloride 0.9% 1000 Ml IV 09/24/19 12:40 Infused .Q1H1M STA Infusion Sodium Chloride Confirm 09/24/19 11:39 Sodium Chloride 0.9% 1000 Ml Administered 09/24/19 11:40 Dose 1,000 mls @ ud .ROUTE .STK-MED ONE Dextrose Confirm 09/24/19 12:28 Dextrose 10% 250 Ml Administered 09/24/19 12:29 Dose 250 mls @ ud IV .STK-MED ONE Morphine Sulfate 2 mg 09/24/19 11:15 09/24/19 11:45 Morphine Sulfate 2 Mg Inj IV 09/24/19 11:16 2 mg STAT ONE Administration Morphine Sulfate Confirm 09/24/19 11:22 Morphine Sulfate 2 Mg Inj Administered 09/24/19 11:23 Dose 2 mg .ROUTE .STK-MED ONE Ondansetron HCl 4 mg 09/24/19 09:38 09/24/19 10:41 Zofran 4 Mg/2 Ml Vial IV 09/24/19 09:39 4 mg STAT ONE Administration Ondansetron HCl Confirm 09/24/19 10:34 Zofran 4 Mg/2 Ml Vial Administered 09/24/19 10:35 Dose 4 mg .ROUTE .STK-MED ONE Ondansetron HCl 4 mg 09/24/19 12:21 09/24/19 12:28 Zofran 4 Mg/2 Ml Vial IV 09/24/19 12:22 4 mg STAT ONE Administration Ondansetron HCl Confirm 09/24/19 12:26 Zofran 4 Mg/2 Ml Vial Administered 09/24/19 12:27 Dose 4 mg .ROUTE .K-[facility] ONE Lab/Rad Data: Laboratory Result Diagrams 09/24/19 10:10 09/24/19 10:10 Laboratory Results 09/24/19 09/24/19 09/24/19 Range/Units Unknown 12:26 11:30 WBC (4.0-10.5) K/mm3 RBC (4.1-5.6) M/mm3 Hgb (12.5-18.0) gm/dl Hct (42-50) % MCV (78-100) fl MCH (26-32) pg MCHC (32-36) g/dl RDW (11.5-14.0) % Plt Count (150-450) K/mm3 MPV (7.5-11.0) fl Gran % (36.0-66.0) % Eos # (Auto) (0-0.5) Absolute Lymphs (auto) (1.0-4.6) Absolute Monos (auto) (0.0-1.3) Lymphocytes % (24.0-44.0) % Monocytes % (0.0-12.0) % Eosinophils % (0.00-5.0) % Basophils % (0.0-0.4) % Absolute Granulocytes (1.4-6.9) Basophils # (0-0.4) Puncture Site pCO2 (35-45) mmHg pO2 (75-100) mmHg Base Excess (-2.0-2.0) O2 Saturation (94-100) g/dF ABG pH (7.35-7.45) ABG HCO3 (22-28) ABG O2 Sat (Measured) (95-100) % Arnaldo Test A-a Gradient a/A Ratio Hemoglobin Carboxyhemoglobin (0.0-6.9) % THgb Methemoglobin (1.4-1.5) % Temperature C POC O2 Flow Rate % Sodium (137-145) mmol/L Potassium (3.5-5.1) mmol/L Chloride (98-107) mmol/L Carbon Dioxide (22-30) mmol/L Anion Gap (5-15) MEQ/L BUN (9-20) mg/dL Creatinine (0.66-1.25) mg/dL Estimated GFR ML/MIN Glucose (74-106) mg/dL Lactic Acid 4.4 H (0.4-2.0) Calcium (8.4-10.2) mg/dL Magnesium (1.6-2.3) mg/dL Total Bilirubin (0.2-1.3) mg/dL AST (17-59) U/L ALT (0-50) U/L Alkaline Phosphatase (38-126) U/L Troponin I < 0.012 (0.000-0.034) ng/mL Serum Total Protein (6.3-8.2) g/dL Albumin (3.5-5.0) g/dL Lipase (23-300) U/L Ethyl Alcohol (0-10) mg/dL Group A Strep Antibody NEGATIVE (NEGATIVE) 09/24/19 09/24/19 09/24/19 Range/Units 10:22 10:10 10:10 WBC (4.0-10.5) K/mm3 RBC (4.1-5.6) M/mm3 Hgb (12.5-18.0) gm/dl Hct (42-50) % MCV (78-100) fl MCH (26-32) pg MCHC (32-36) g/dl RDW (11.5-14.0) % Plt Count (150-450) K/mm3 MPV (7.5-11.0) fl Gran % (36.0-66.0) % Eos # (Auto) (0-0.5) Absolute Lymphs (auto) (1.0-4.6) Absolute Monos (auto) (0.0-1.3) Lymphocytes % (24.0-44.0) % Monocytes % (0.0-12.0) % Eosinophils % (0.00-5.0) % Basophils % (0.0-0.4) % Absolute Granulocytes (1.4-6.9) Basophils # (0-0.4) Puncture Site LEFT RADIAL pCO2 44 (35-45) mmHg pO2 96 (75-100) mmHg Base Excess 7.4 H (-2.0-2.0) O2 Saturation 96.5 (94-100) g/dF ABG pH 7.47 H (7.35-7.45) ABG HCO3 32.0 H* (22-28) ABG O2 Sat (Measured) 98.8 (95-100) % Arnaldo Test YES A-a Gradient -1 a/A Ratio 1.01 Hemoglobin 15.0 Carboxyhemoglobin 1.5 (0.0-6.9) % THgb Methemoglobin 0.7 L (1.4-1.5) % Temperature 37.0 C POC O2 Flow Rate 21 % Sodium 134 L (137-145) mmol/L Potassium 3.8 4.1 (3.5-5.1) mmol/L Chloride 84 L (98-107) mmol/L Carbon Dioxide 30 (22-30) mmol/L Anion Gap 23.7 H (5-15) MEQ/L BUN 22 H (9-20) mg/dL Creatinine 0.98 (0.66-1.25) mg/dL Estimated GFR > 60.0 ML/MIN Glucose 454 H (74-106) mg/dL Lactic Acid 6.2 H (0.4-2.0) Calcium 10.1 (8.4-10.2) mg/dL Magnesium 1.8 (1.6-2.3) mg/dL Total Bilirubin 1.00 (0.2-1.3) mg/dL AST 28 (17-59) U/L ALT 24 (0-50) U/L Alkaline Phosphatase 130 H (38-126) U/L Troponin I (0.000-0.034) ng/mL Serum Total Protein 8.4 H (6.3-8.2) g/dL Albumin 4.7 (3.5-5.0) g/dL Lipase < 10 L (23-300) U/L Ethyl Alcohol < 10 (0-10) mg/dL Group A Strep Antibody (NEGATIVE) 09/24/19 Range/Units 10:10 WBC 10.9 H (4.0-10.5) K/mm3 RBC 5.32 (4.1-5.6) M/mm3 Hgb 15.2 (12.5-18.0) gm/dl Hct 43.3 (42-50) % MCV 81.4 (78-100) fl MCH 28.6 (26-32) pg MCHC 35.1 (32-36) g/dl RDW 12.4 (11.5-14.0) % Plt Count 403 (150-450) K/mm3 MPV 8.7 (7.5-11.0) fl Gran % 84.6 H (36.0-66.0) % Eos # (Auto) 0.09 (0-0.5) Absolute Lymphs (auto) 0.93 L (1.0-4.6) Absolute Monos (auto) 0.65 (0.0-1.3) Lymphocytes % 8.5 L (24.0-44.0) % Monocytes % 5.9 (0.0-12.0) % Eosinophils % 0.8 (0.00-5.0) % Basophils % 0.2 (0.0-0.4) % Absolute Granulocytes 9.24 H (1.4-6.9) Basophils # 0.02 (0-0.4) Puncture Site pCO2 (35-45) mmHg pO2 (75-100) mmHg Base Excess (-2.0-2.0) O2 Saturation (94-100) g/dF ABG pH (7.35-7.45) ABG HCO3 (22-28) ABG O2 Sat (Measured) (95-100) % Arnaldo Test A-a Gradient a/A Ratio Hemoglobin Carboxyhemoglobin (0.0-6.9) % THgb Methemoglobin (1.4-1.5) % Temperature C POC O2 Flow Rate % Sodium (137-145) mmol/L Potassium (3.5-5.1) mmol/L Chloride (98-107) mmol/L Carbon Dioxide (22-30) mmol/L Anion Gap (5-15) MEQ/L BUN (9-20) mg/dL Creatinine (0.66-1.25) mg/dL Estimated GFR ML/MIN Glucose (74-106) mg/dL Lactic Acid (0.4-2.0) Calcium (8.4-10.2) mg/dL Magnesium (1.6-2.3) mg/dL Total Bilirubin (0.2-1.3) mg/dL AST (17-59) U/L ALT (0-50) U/L Alkaline Phosphatase (38-126) U/L Troponin I (0.000-0.034) ng/mL Serum Total Protein (6.3-8.2) g/dL Albumin (3.5-5.0) g/dL Lipase (23-300) U/L Ethyl Alcohol (0-10) mg/dL Group A Strep Antibody (NEGATIVE) - Progress Progress: improved Progress Note: 09/24/19 11:30 Patient reassessed. Pain improved. Vitals improving as well. Differential diagnosis includes sepsis, pancreatitis, DKA, acute intra-abdominal process such as colitis, diverticulitis, gastroparesis 09/24/19 11:32 Counseled pt/family regarding: drug and/or alcohol abuse, lab results, diagnosis , rad results, smoking cessation - Departure Departure Disposition: Observation, Extended Care Facility Clinical Impression: DKA (diabetic ketoacidoses), Hyperglycemia, Lactic acidosis, Nausea and vomiting, Diabetes mellitus type I, Illicit drug use, Diabetic gastroparesis, Spondylolysis of lumbar region Condition: Stable Critical Care Time: Yes Critical Care Time(excluding separately billable procedures): Critical 30-74 mins Referrals: VALENTINA ESPINO [Primary Care Provider] -
[2019-09-24] MEDS ORDERED: MORPHINE SULFATE 2 MG INJ ONE (11:22)
--- NOTE | 2019-09-24 12:02 | XRAY ---
Indication: Vomiting 5 days. Multiple contiguous axial images obtained through the abdomen and pelvis using 80 cc Isovue 370 contrast as ordered. Comparison: November 17, 2018. Lung bases remain clear. Heart is not enlarged. Stomach is mildly fluid distended. Noncontrasted stomach and bowel loops appear nonobstructed. Appendix demonstrates stable appendicolith without appendicitis. There is now mild/moderate diffuse scattered colonic fecal debris throughout including rectum. No free fluid/air. Stable pelvic phleboliths. Remaining liver, gallbladder, pancreas, spleen, adrenal glands, kidneys, ureters, bladder, and aorta appear unremarkable. No pathologic retroperitoneal lymphadenopathy. Osseous structures intact with stable bilateral L5 spondylolysis without spondylolisthesis. Impression: 1. New diffuse fecal stasis. 2. Stable appendicolith without acute appendicitis. 3. Remaining CT abdomen/pelvis with contrast exam is negative.
[2019-09-24] MEDS ORDERED: DEXTROSE 10% 250 ML 250 ML IV ONE (12:28)
[2019-09-24] MEDS: POTASSIUM CHLORIDE 20 mEq IN WATER 100ML 20 MEQ/100 ML BAG IV SCH ×2 (12:28→15:13)
[2019-09-24] MEDS ORDERED: DEXTROSE 10% 250 ML 250 ML IV SCH (13:00)
[2019-09-24 13:12] LABS: ANION GAP 17.4 MEQ/L (5-15); BLOOD UREA NITROGEN 21 mg/dL (9-20); CHLORIDE 90 mmol/L (98-107); Calcium 9.2 mg/dL (8.4-10.2); Carbon Dioxide 32 mmol/L (22-30); Creatinine 1 0.79 mg/dL (0.66-1.25); Glucose 250 mg/dL (74-106); Potassium 3.6 mmol/L (3.5-5.1); SODIUM 136 mmol/L (137-145)
[2019-09-24] MEDS ORDERED: Sodium Chloride 0.9% 1000 ML 1,000 ML IV SCH (13:45)
[2019-09-24] MEDS ORDERED: Phenergan 25 MG INJ IV PRN (14:42)
[2019-09-24] MEDS ORDERED: MORPHINE SULFATE 4 MG INJ IV PRN (14:42)
[2019-09-24] MEDS ORDERED: Zofran 4 MG/2 ML VIAL IV PRN (14:42)
[2019-09-24] MEDS ORDERED: TRANDATE 100MG/20 ML MDV IV ONE (15:00)
[2019-09-24 15:19] LABS: Appearance CLEAR (CLEAR); Bilirubin NEGATIVE (NEGATIVE); Blood NEGATIVE Ery/ul (0-5); Glucose >=500 mg/dL (NEGATIVE); Ketones SMALL (NEGATIVE); Leukocyte Esterase NEGATIVE (NEGATIVE); Mucus SLIGHT /HPF (NEGATIVE); Nitrite NEGATIVE (NEGATIVE); Protein,Urine Dip 100 (Negative); Specific Gravity >1.060 (1.005-1.025); Urobilinogen 2 mg/dL (0-1)
[2019-09-24 16:04] LABS: NT PRO BNP 49.8 pg/mL (0-450)
[2019-09-24 17:05] LABS: ANION GAP 14.4 MEQ/L (5-15); BLOOD UREA NITROGEN 19 mg/dL (9-20); CHLORIDE 93 mmol/L (98-107); Calcium 8.6 mg/dL (8.4-10.2); Carbon Dioxide 29 mmol/L (22-30); Creatinine 1 0.75 mg/dL (0.66-1.25); Glucose 352 mg/dL (74-106); Potassium 4.3 mmol/L (3.5-5.1); SODIUM 132 mmol/L (137-145)
[2019-09-24 17:54] LABS: BLOOD UREA NITROGEN 17 mg/dL (9-20); CHLORIDE 95 mmol/L (98-107); Calcium 8.6 mg/dL (8.4-10.2); Carbon Dioxide 29 mmol/L (22-30); Creatinine 1 0.78 mg/dL (0.66-1.25); Glucose 219 mg/dL (74-106); Potassium 4.1 mmol/L (3.5-5.1); SODIUM 134 mmol/L (137-145)
[2019-09-24] MEDS: Dextrose 5% -0.45 NaCl 1000 ML 1,000 ML IV SCH (18:02)
[2019-09-24] MEDS ORDERED: NovoLOG Insulin SQ ONE (18:30)
[2019-09-24] MEDS: NovoLOG Insulin SQ PRN (20:38)
[2019-09-25] MEDS: Dextrose 5% -0.45 NaCl 1000 ML 1,000 ML IV SCH ×2 (02:18→10:41)
[2019-09-25] MEDS: NovoLOG Insulin SQ PRN ×3 (04:27→17:59)
[2019-09-25 05:01] LABS: Hematocrit 34.5 % (42-50); Mean Cell Volume 83.9 fl (78-100); Mean Corpuscular Hemoglobin 28.5 pg (26-32); Mean Corpuscular Hgb Concent. 33.9 g/dl (32-36); Mean Platelet Volume 8.5 fl (7.5-11.0); Platelet Count 313 K/mm3 (150-450); Red Blood Count 4.11 M/mm3 (4.1-5.6); Red Cell Distribution Width 12.4 % (11.5-14.0); White Blood Count 7.8 K/mm3 (4.0-10.5)
[2019-09-25 05:09] LABS: ANION GAP 10.6 MEQ/L (5-15); BLOOD UREA NITROGEN 16 mg/dL (9-20); CHLORIDE 95 mmol/L (98-107); Calcium 8.4 mg/dL (8.4-10.2); Carbon Dioxide 31 mmol/L (22-30); Creatinine 1 0.81 mg/dL (0.66-1.25); Glucose 335 mg/dL (74-106); Potassium 4.1 mmol/L (3.5-5.1); SODIUM 132 mmol/L (137-145)
[2019-09-25 05:17] LABS: Hemoglobin 11.7 gm/dl (12.5-18.0)
--- NOTE | 2019-09-25 08:52 | PCM.SSS ---
History of Present Illness - Chief Complaint Chief Complaint: DKA History of Present Illness: is a 33 year old noncompliant male pt of mine (last seen at [facility] in 2016) with insulin dependent diabetes and polysubstance abuse hx who was admitted last night through ER with epigastric/RUQ abd pain, vomiting, and elevated BS. He did have an anion gap of 23.7 but a CO2 of 30 and pH of 7.47. He was given insulin drip and IV fluids, although his BS corrected fairly quickly and the drip was stopped when pt was moved to the floor. We resumed the drip at 2units/hour; he was on D5 1/2NS at this time. By evening his anion gap had normalized and he was changed from hourly to q4h accuchecks. Pt had been sick x 5d at home. He states he moved into his friend's home and the girlfriend is and he has had sympathy morning sickness with her in the past. Denies anything else new. Admits to smoking marijuana but denies any other substances. This morning his nausea has resolved and his abd pain is nearly gone. His potassium has been normal throughout. He had elevated BP on admission up to 180s systolic, but after 1 dose of IV labetalol his bp went down; was in the 90s systolic at one point through the night. If he can tolerate up to [place] at suppertime he will be fine to discharge to home. - Review of Systems Abdominal/Gastrointestinal: Abdominal Pain, Nausea, Vomiting, Hematemesis (at times) Psychological: Drug Abuse All Other Systems: Reviewed and Negative Medications & Allergies Home Medications: Home Medication List Insulin Aspart [NovoLOG Insulin] 5 unit SQ TIDAC #5 pens 09/25/19 [Rx] Insulin Glargine,Hum.rec.anlog [Basaglar Kwikpen U-100] 20 unit SQ DAILY #5 insuln.pen 09/25/19 [Rx] Allergies/Adverse Reactions: Allergies Allergy/AdvReac Type Severity Reaction Status Date / Time No Known Drug Allergies Allergy Verified 09/24/19 09:38 - Past Medical History Past Medical History: Yes Neurological History: No Pertinent History ENT History: No Pertinent History Cardiac History: No Pertinent History Respiratory History: No Pertinent History Endocrine Medical History: Diabetes Type I Musculoskelatal History: No Pertinent History GI Medical History: No Pertinent History History: No Pertinent History Pyscho-Social History: Anxiety, Depression Male Reproductive Disorders: No Pertinent History Comment: DKA - Past Surgical History Past Surgical History: No Neuro Surgical History: No Pertinent History Cardiac History: No Pertinent History Respiratory Surgery: No Pertinent History GI Surgical History: No Pertinent History Genitourinary Surgical Hx: No Pertinent History Musculskeletal Surgical Hx: No Pertinent History Male Surgical History: No Pertinent History Other Surgical History: . - Social History Smoking Status: Never smoker Exposure to second hand smoke: Yes Alcohol: Occasionally Drug Use: marijuana, methamphetamines - Physical Exam Vital Signs: Vital Signs - 24 hr Temp Pulse Resp BP Pulse Ox 09/25/19 08:00 83 09/25/19 07:08 97.6 F 86 14 116/72 99 09/25/19 04:00 98.5 F 87 17 123/72 99 09/25/19 00:01 91 H 09/25/19 00:00 98.6 F 87 16 109/76 96 09/24/19 20:00 98.2 F 90 15 121/78 97 09/24/19 18:00 97.8 F 87 15 116/70 95 09/24/19 17:15 89 20 109/70 94 L 09/24/19 16:00 97.8 F 88 14 98/60 96 09/24/19 15:15 91 H 15 118/75 95 09/24/19 15:00 95 H 12 153/94 09/24/19 14:46 98.3 F 103 H 16 179/102 98 09/24/19 14:45 98 H 12 160/101 09/24/19 14:30 106 H 15 158/109 09/24/19 14:15 102 H 12 179/122 09/24/19 14:00 98.3 F 103 H 16 179/102 98 09/24/19 13:59 98 H 13 182/121 98 09/24/19 13:55 102 H 10 L 188/121 98 09/24/19 13:42 94 H 174/112 97 09/24/19 12:52 97 09/24/19 12:47 100 H 13 160/101 97 09/24/19 11:02 108 H 19 163/114 97 09/24/19 10:31 102 H 163/114 100 09/24/19 10:25 99 02/06/20 09:22 97.5 F 115 H 181/122 98 General Appearance: no apparent distress, alert, other (sitting up on edge of bed) Neurologic Exam: oriented x 3, cooperative Eye Exam: eyes nml inspection Ears, Nose, Throat Exam: moist mucous membranes Neck Exam: normal inspection Respiratory Exam: normal breath sounds, lungs clear, No crackles/rales, No rhonchi, No wheezing Cardiovascular Exam: regular rate/rhythm, normal heart sounds, No murmur Gastrointestinal/Abdomen Exam: soft, No normal bowel sounds (hypoactive but present), No tenderness, No distention, No mass, No guarding, No rebound Extremity Exam: normal inspection, No pedal edema, No swelling Skin Exam: normal color, warm, dry, No rash Results - Labs Lab/Micro Results: Accuchecks Accucheck Value: 202 Accucheck Value: 290 Accucheck Value: 124 Accucheck Value: 261 Accucheck Value: 234 Accucheck Value: 301 Accucheck Value: 515 Lab Results-Last 24 Hours 09/24/19 09/24/19 09/24/19 Range/Units 10:10 10:10 10:10 WBC 10.9 H (4.0-10.5) K/mm3 RBC 5.32 (4.1-5.6) M/mm3 Hgb 15.2 (12.5-18.0) gm/dl Hct 43.3 (42-50) % MCV 81.4 (78-100) fl MCH 28.6 (26-32) pg MCHC 35.1 (32-36) g/dl RDW 12.4 (11.5-14.0) % Plt Count 403 (150-450) K/mm3 MPV 8.7 (7.5-11.0) fl Gran % 84.6 H (36.0-66.0) % Eos # (Auto) 0.09 (0-0.5) Absolute Lymphs (auto) 0.93 L (1.0-4.6) Absolute Monos (auto) 0.65 (0.0-1.3) Lymphocytes % 8.5 L (24.0-44.0) % Monocytes % 5.9 (0.0-12.0) % Eosinophils % 0.8 (0.00-5.0) % Basophils % 0.2 (0.0-0.4) % Absolute Granulocytes 9.24 H (1.4-6.9) Basophils # 0.02 (0-0.4) Puncture Site pCO2 (35-45) mmHg pO2 (75-100) mmHg Base Excess (-2.0-2.0) O2 Saturation (94-100) g/dF ABG pH (7.35-7.45) ABG HCO3 (22-28) ABG O2 Sat (Measured) (95-100) % Arnaldo Test A-a Gradient a/A Ratio Hemoglobin Carboxyhemoglobin (0.0-6.9) % THgb Methemoglobin (1.4-1.5) % Temperature C POC O2 Flow Rate % Sodium 134 L (137-145) mmol/L Potassium 4.1 (3.5-5.1) mmol/L Chloride 84 L (98-107) mmol/L Carbon Dioxide 30 (22-30) mmol/L Anion Gap 23.7 H (5-15) MEQ/L BUN 22 H (9-20) mg/dL Creatinine 0.98 (0.66-1.25) mg/dL Estimated GFR > 60.0 ML/MIN Glucose 454 H (74-106) mg/dL Lactic Acid (0.4-2.0) Calcium 10.1 (8.4-10.2) mg/dL Magnesium 1.8 (1.6-2.3) mg/dL Total Bilirubin 1.00 (0.2-1.3) mg/dL AST 28 (17-59) U/L ALT 24 (0-50) U/L Alkaline Phosphatase 130 H (38-126) U/L Troponin I (0.000-0.034) ng/mL NT-Pro-B Natriuret Pep (0-450) pg/mL Serum Total Protein 8.4 H (6.3-8.2) g/dL Albumin 4.7 (3.5-5.0) g/dL Lipase < 10 L (23-300) U/L Urine Color (YELLOW) Urine Appearance (CLEAR) Urine pH (5-6) Ur Specific [place] (1.005-1.025) Urine Protein (Negative) Urine Ketones (NEGATIVE) Urine Blood (0-5) Tomas/ul Urine Nitrite (NEGATIVE) Urine Bilirubin (NEGATIVE) Urine Urobilinogen (0-1) mg/dL Ur Leukocyte Esterase (NEGATIVE) Urine WBC (Auto) (0-5) /HPF Urine RBC (Auto) (0-2) /HPF U Epithel Cells (Auto) (FEW) /HPF Urine Bacteria (Auto) (NEGATIVE) /HPF Urine Mucus (Auto) (NEGATIVE) /HPF Urine Culture Reflexed (NO) Urine Glucose (NEGATIVE) mg/dL Ethyl Alcohol < 10 (0-10) mg/dL Group A Strep Antibody (NEGATIVE) 09/24/19 09/24/19 09/24/19 Range/Units 10:22 11:30 12:26 WBC (4.0-10.5) K/mm3 RBC (4.1-5.6) M/mm3 Hgb (12.5-18.0) gm/dl Hct (42-50) % MCV (78-100) fl MCH (26-32) pg MCHC (32-36) g/dl RDW (11.5-14.0) % Plt Count (150-450) K/mm3 MPV (7.5-11.0) fl Gran % (36.0-66.0) % Eos # (Auto) (0-0.5) Absolute Lymphs (auto) (1.0-4.6) Absolute Monos (auto) (0.0-1.3) Lymphocytes % (24.0-44.0) % Monocytes % (0.0-12.0) % Eosinophils % (0.00-5.0) % Basophils % (0.0-0.4) % Absolute Granulocytes (1.4-6.9) Basophils # (0-0.4) Puncture Site LEFT RADIAL pCO2 44 (35-45) mmHg pO2 96 (75-100) mmHg Base Excess 7.4 H (-2.0-2.0) O2 Saturation 96.5 (94-100) g/dF ABG pH 7.47 H (7.35-7.45) ABG HCO3 32.0 H* (22-28) ABG O2 Sat (Measured) 98.8 (95-100) % Arnaldo Test YES A-a Gradient -1 a/A Ratio 1.01 Hemoglobin 15.0 Carboxyhemoglobin 1.5 (0.0-6.9) % THgb Methemoglobin 0.7 L (1.4-1.5) % Temperature 37.0 C POC O2 Flow Rate 21 % Sodium (137-145) mmol/L Potassium 3.8 (3.5-5.1) mmol/L Chloride (98-107) mmol/L Carbon Dioxide (22-30) mmol/L Anion Gap (5-15) MEQ/L BUN (9-20) mg/dL Creatinine (0.66-1.25) mg/dL Estimated GFR ML/MIN Glucose (74-106) mg/dL Lactic Acid 6.2 H 4.4 H (0.4-2.0) Calcium (8.4-10.2) mg/dL Magnesium (1.6-2.3) mg/dL Total Bilirubin (0.2-1.3) mg/dL AST (17-59) U/L ALT (0-50) U/L Alkaline Phosphatase (38-126) U/L Troponin I < 0.012 (0.000-0.034) ng/mL NT-Pro-B Natriuret Pep (0-450) pg/mL Serum Total Protein (6.3-8.2) g/dL Albumin (3.5-5.0) g/dL Lipase (23-300) U/L Urine Color (YELLOW) Urine Appearance (CLEAR) Urine pH (5-6) Ur Specific [place] (1.005-1.025) Urine Protein (Negative) Urine Ketones (NEGATIVE) Urine Blood (0-5) Tomas/ul Urine Nitrite (NEGATIVE) Urine Bilirubin (NEGATIVE) Urine Urobilinogen (0-1) mg/dL Ur Leukocyte Esterase (NEGATIVE) Urine WBC (Auto) (0-5) /HPF Urine RBC (Auto) (0-2) /HPF U Epithel Cells (Auto) (FEW) /HPF Urine Bacteria (Auto) (NEGATIVE) /HPF Urine Mucus (Auto) (NEGATIVE) /HPF Urine Culture Reflexed (NO) Urine Glucose (NEGATIVE) mg/dL Ethyl Alcohol (0-10) mg/dL Group A Strep Antibody (NEGATIVE) 09/24/19 09/24/19 09/24/19 Range/Units 12:37 14:27 14:29 WBC (4.0-10.5) K/mm3 RBC (4.1-5.6) M/mm3 Hgb (12.5-18.0) gm/dl Hct (42-50) % MCV (78-100) fl MCH (26-32) pg MCHC (32-36) g/dl RDW (11.5-14.0) % Plt Count (150-450) K/mm3 MPV (7.5-11.0) fl Gran % (36.0-66.0) % Eos # (Auto) (0-0.5) Absolute Lymphs (auto) (1.0-4.6) Absolute Monos (auto) (0.0-1.3) Lymphocytes % (24.0-44.0) % Monocytes % (0.0-12.0) % Eosinophils % (0.00-5.0) % Basophils % (0.0-0.4) % Absolute Granulocytes (1.4-6.9) Basophils # (0-0.4) Puncture Site pCO2 (35-45) mmHg pO2 (75-100) mmHg Base Excess (-2.0-2.0) O2 Saturation (94-100) g/dF ABG pH (7.35-7.45) ABG HCO3 (22-28) ABG O2 Sat (Measured) (95-100) % Arnaldo Test A-a Gradient a/A Ratio Hemoglobin Carboxyhemoglobin (0.0-6.9) % THgb Methemoglobin (1.4-1.5) % Temperature C POC O2 Flow Rate % Sodium 136 L (137-145) mmol/L Potassium 3.6 (3.5-5.1) mmol/L Chloride 90 L (98-107) mmol/L Carbon Dioxide 32 H (22-30) mmol/L Anion Gap 17.4 H (5-15) MEQ/L BUN 21 H (9-20) mg/dL Creatinine 0.79 (0.66-1.25) mg/dL Estimated GFR > 60.0 ML/MIN Glucose 250 H 344 H (74-106) mg/dL Lactic Acid (0.4-2.0) Calcium 9.2 (8.4-10.2) mg/dL Magnesium (1.6-2.3) mg/dL Total Bilirubin (0.2-1.3) mg/dL AST (17-59) U/L ALT (0-50) U/L Alkaline Phosphatase (38-126) U/L Troponin I < 0.012 (0.000-0.034) ng/mL NT-Pro-B Natriuret Pep (0-450) pg/mL Serum Total Protein (6.3-8.2) g/dL Albumin (3.5-5.0) g/dL Lipase (23-300) U/L Urine Color (YELLOW) Urine Appearance (CLEAR) Urine pH (5-6) Ur Specific [place] (1.005-1.025) Urine Protein (Negative) Urine Ketones (NEGATIVE) Urine Blood (0-5) Tomas/ul Urine Nitrite (NEGATIVE) Urine Bilirubin (NEGATIVE) Urine Urobilinogen (0-1) mg/dL Ur Leukocyte Esterase (NEGATIVE) Urine WBC (Auto) (0-5) /HPF Urine RBC (Auto) (0-2) /HPF U Epithel Cells (Auto) (FEW) /HPF Urine Bacteria (Auto) (NEGATIVE) /HPF Urine Mucus (Auto) (NEGATIVE) /HPF Urine Culture Reflexed (NO) Urine Glucose (NEGATIVE) mg/dL Ethyl Alcohol (0-10) mg/dL Group A Strep Antibody (NEGATIVE) 09/24/19 09/24/19 09/24/19 Range/Units 14:35 15:09 15:30 WBC (4.0-10.5) K/mm3 RBC (4.1-5.6) M/mm3 Hgb (12.5-18.0) gm/dl Hct (42-50) % MCV (78-100) fl MCH (26-32) pg MCHC (32-36) g/dl RDW (11.5-14.0) % Plt Count (150-450) K/mm3 MPV (7.5-11.0) fl Gran % (36.0-66.0) % Eos # (Auto) (0-0.5) Absolute Lymphs (auto) (1.0-4.6) Absolute Monos (auto) (0.0-1.3) Lymphocytes % (24.0-44.0) % Monocytes % (0.0-12.0) % Eosinophils % (0.00-5.0) % Basophils % (0.0-0.4) % Absolute Granulocytes (1.4-6.9) Basophils # (0-0.4) Puncture Site pCO2 (35-45) mmHg pO2 (75-100) mmHg Base Excess (-2.0-2.0) O2 Saturation (94-100) g/dF ABG pH (7.35-7.45) ABG HCO3 (22-28) ABG O2 Sat (Measured) (95-100) % Arnaldo Test A-a Gradient a/A Ratio Hemoglobin Carboxyhemoglobin (0.0-6.9) % THgb Methemoglobin (1.4-1.5) % Temperature C POC O2 Flow Rate % Sodium (137-145) mmol/L Potassium (3.5-5.1) mmol/L Chloride (98-107) mmol/L Carbon Dioxide (22-30) mmol/L Anion Gap (5-15) MEQ/L BUN (9-20) mg/dL Creatinine (0.66-1.25) mg/dL Estimated GFR ML/MIN Glucose 346 H (74-106) mg/dL Lactic Acid 1.8 (0.4-2.0) Calcium (8.4-10.2) mg/dL Magnesium (1.6-2.3) mg/dL Total Bilirubin (0.2-1.3) mg/dL AST (17-59) U/L ALT (0-50) U/L Alkaline Phosphatase (38-126) U/L Troponin I (0.000-0.034) ng/mL NT-Pro-B Natriuret Pep 49.8 (0-450) pg/mL Serum Total Protein (6.3-8.2) g/dL Albumin (3.5-5.0) g/dL Lipase (23-300) U/L Urine Color YELLOW (YELLOW) Urine Appearance CLEAR (CLEAR) Urine pH 8.0 (5-6) Ur Specific [place] >1.060 (1.005-1.025) Urine Protein 100 (Negative) Urine Ketones SMALL (NEGATIVE) Urine Blood NEGATIVE (0-5) Tomas/ul Urine Nitrite NEGATIVE (NEGATIVE) Urine Bilirubin NEGATIVE (NEGATIVE) Urine Urobilinogen 2 (0-1) mg/dL Ur Leukocyte Esterase NEGATIVE (NEGATIVE) Urine WBC (Auto) 3-5 (0-5) /HPF Urine RBC (Auto) 16-25 (0-2) /HPF U Epithel Cells (Auto) NONE (FEW) /HPF Urine Bacteria (Auto) NONE (NEGATIVE) /HPF Urine Mucus (Auto) SLIGHT (NEGATIVE) /HPF Urine Culture Reflexed ORDERED SEPARATELY (NO) Urine Glucose >=500 (NEGATIVE) mg/dL Ethyl Alcohol (0-10) mg/dL Group A Strep Antibody (NEGATIVE) 09/24/19 09/24/19 09/24/19 Range/Units 15:30 16:30 17:49 WBC (4.0-10.5) K/mm3 RBC (4.1-5.6) M/mm3 Hgb (12.5-18.0) gm/dl Hct (42-50) % MCV (78-100) fl MCH (26-32) pg MCHC (32-36) g/dl RDW (11.5-14.0) % Plt Count (150-450) K/mm3 MPV (7.5-11.0) fl Gran % (36.0-66.0) % Eos # (Auto) (0-0.5) Absolute Lymphs (auto) (1.0-4.6) Absolute Monos (auto) (0.0-1.3) Lymphocytes % (24.0-44.0) % Monocytes % (0.0-12.0) % Eosinophils % (0.00-5.0) % Basophils % (0.0-0.4) % Absolute Granulocytes (1.4-6.9) Basophils # (0-0.4) Puncture Site pCO2 (35-45) mmHg pO2 (75-100) mmHg Base Excess (-2.0-2.0) O2 Saturation (94-100) g/dF ABG pH (7.35-7.45) ABG HCO3 (22-28) ABG O2 Sat (Measured) (95-100) % Arnaldo Test A-a Gradient a/A Ratio Hemoglobin Carboxyhemoglobin (0.0-6.9) % THgb Methemoglobin (1.4-1.5) % Temperature C POC O2 Flow Rate % Sodium 132 L (137-145) mmol/L Potassium 4.3 (3.5-5.1) mmol/L Chloride 93 L (98-107) mmol/L Carbon Dioxide 29 (22-30) mmol/L Anion Gap 14.4 (5-15) MEQ/L BUN 19 (9-20) mg/dL Creatinine 0.75 (0.66-1.25) mg/dL Estimated GFR > 60.0 ML/MIN Glucose 352 H 275 H (74-106) mg/dL Lactic Acid (0.4-2.0) Calcium 8.6 (8.4-10.2) mg/dL Magnesium (1.6-2.3) mg/dL Total Bilirubin (0.2-1.3) mg/dL AST (17-59) U/L ALT (0-50) U/L Alkaline Phosphatase (38-126) U/L Troponin I < 0.012 (0.000-0.034) ng/mL NT-Pro-B Natriuret Pep (0-450) pg/mL Serum Total Protein (6.3-8.2) g/dL Albumin (3.5-5.0) g/dL Lipase (23-300) U/L Urine Color (YELLOW) Urine Appearance (CLEAR) Urine pH (5-6) Ur Specific [place] (1.005-1.025) Urine Protein (Negative) Urine Ketones (NEGATIVE) Urine Blood (0-5) Tomas/ul Urine Nitrite (NEGATIVE) Urine Bilirubin (NEGATIVE) Urine Urobilinogen (0-1) mg/dL Ur Leukocyte Esterase (NEGATIVE) Urine WBC (Auto) (0-5) /HPF Urine RBC (Auto) (0-2) /HPF U Epithel Cells (Auto) (FEW) /HPF Urine Bacteria (Auto) (NEGATIVE) /HPF Urine Mucus (Auto) (NEGATIVE) /HPF Urine Culture Reflexed (NO) Urine Glucose (NEGATIVE) mg/dL Ethyl Alcohol (0-10) mg/dL Group A Strep Antibody (NEGATIVE) 09/24/19 09/24/19 09/24/19 Range/Units 17:49 18:40 19:59 WBC (4.0-10.5) K/mm3 RBC (4.1-5.6) M/mm3 Hgb (12.5-18.0) gm/dl Hct (42-50) % MCV (78-100) fl MCH (26-32) pg MCHC (32-36) g/dl RDW (11.5-14.0) % Plt Count (150-450) K/mm3 MPV (7.5-11.0) fl Gran % (36.0-66.0) % Eos # (Auto) (0-0.5) Absolute Lymphs (auto) (1.0-4.6) Absolute Monos (auto) (0.0-1.3) Lymphocytes % (24.0-44.0) % Monocytes % (0.0-12.0) % Eosinophils % (0.00-5.0) % Basophils % (0.0-0.4) % Absolute Granulocytes (1.4-6.9) Basophils # (0-0.4) Puncture Site pCO2 (35-45) mmHg pO2 (75-100) mmHg Base Excess (-2.0-2.0) O2 Saturation (94-100) g/dF ABG pH (7.35-7.45) ABG HCO3 (22-28) ABG O2 Sat (Measured) (95-100) % Arnaldo Test A-a Gradient a/A Ratio Hemoglobin Carboxyhemoglobin (0.0-6.9) % THgb Methemoglobin (1.4-1.5) % Temperature C POC O2 Flow Rate % Sodium 134 L (137-145) mmol/L Potassium 4.1 (3.5-5.1) mmol/L Chloride 95 L (98-107) mmol/L Carbon Dioxide 29 (22-30) mmol/L Anion Gap 13.0 (5-15) MEQ/L BUN 17 (9-20) mg/dL Creatinine 0.78 (0.66-1.25) mg/dL Estimated GFR > 60.0 ML/MIN Glucose 219 H 195 H (74-106) mg/dL Lactic Acid (0.4-2.0) Calcium 8.6 (8.4-10.2) mg/dL Magnesium (1.6-2.3) mg/dL Total Bilirubin (0.2-1.3) mg/dL AST (17-59) U/L ALT (0-50) U/L Alkaline Phosphatase (38-126) U/L Troponin I < 0.012 (0.000-0.034) ng/mL NT-Pro-B Natriuret Pep (0-450) pg/mL Serum Total Protein (6.3-8.2) g/dL Albumin (3.5-5.0) g/dL Lipase (23-300) U/L Urine Color (YELLOW) Urine Appearance (CLEAR) Urine pH (5-6) Ur Specific [place] (1.005-1.025) Urine Protein (Negative) Urine Ketones (NEGATIVE) Urine Blood (0-5) Tomas/ul Urine Nitrite (NEGATIVE) Urine Bilirubin (NEGATIVE) Urine Urobilinogen (0-1) mg/dL Ur Leukocyte Esterase (NEGATIVE) Urine WBC (Auto) (0-5) /HPF Urine RBC (Auto) (0-2) /HPF U Epithel Cells (Auto) (FEW) /HPF Urine Bacteria (Auto) (NEGATIVE) /HPF Urine Mucus (Auto) (NEGATIVE) /HPF Urine Culture Reflexed (NO) Urine Glucose (NEGATIVE) mg/dL Ethyl Alcohol (0-10) mg/dL Group A Strep Antibody (NEGATIVE) 09/24/19 09/24/19 09/24/19 Range/Units 19:59 22:50 Unknown WBC (4.0-10.5) K/mm3 RBC (4.1-5.6) M/mm3 Hgb (12.5-18.0) gm/dl Hct (42-50) % MCV (78-100) fl MCH (26-32) pg MCHC (32-36) g/dl RDW (11.5-14.0) % Plt Count (150-450) K/mm3 MPV (7.5-11.0) fl Gran % (36.0-66.0) % Eos # (Auto) (0-0.5) Absolute Lymphs (auto) (1.0-4.6) Absolute Monos (auto) (0.0-1.3) Lymphocytes % (24.0-44.0) % Monocytes % (0.0-12.0) % Eosinophils % (0.00-5.0) % Basophils % (0.0-0.4) % Absolute Granulocytes (1.4-6.9) Basophils # (0-0.4) Puncture Site pCO2 (35-45) mmHg pO2 (75-100) mmHg Base Excess (-2.0-2.0) O2 Saturation (94-100) g/dF ABG pH (7.35-7.45) ABG HCO3 (22-28) ABG O2 Sat (Measured) (95-100) % Arnaldo Test A-a Gradient a/A Ratio Hemoglobin Carboxyhemoglobin (0.0-6.9) % THgb Methemoglobin (1.4-1.5) % Temperature C POC O2 Flow Rate % Sodium (137-145) mmol/L Potassium (3.5-5.1) mmol/L Chloride (98-107) mmol/L Carbon Dioxide (22-30) mmol/L Anion Gap (5-15) MEQ/L BUN (9-20) mg/dL Creatinine (0.66-1.25) mg/dL Estimated GFR ML/MIN Glucose 229 H (74-106) mg/dL Lactic Acid (0.4-2.0) Calcium (8.4-10.2) mg/dL Magnesium (1.6-2.3) mg/dL Total Bilirubin (0.2-1.3) mg/dL AST (17-59) U/L ALT (0-50) U/L Alkaline Phosphatase (38-126) U/L Troponin I < 0.012 (0.000-0.034) ng/mL NT-Pro-B Natriuret Pep (0-450) pg/mL Serum Total Protein (6.3-8.2) g/dL Albumin (3.5-5.0) g/dL Lipase (23-300) U/L Urine Color (YELLOW) Urine Appearance (CLEAR) Urine pH (5-6) Ur Specific [place] (1.005-1.025) Urine Protein (Negative) Urine Ketones (NEGATIVE) Urine Blood (0-5) Tomas/ul Urine Nitrite (NEGATIVE) Urine Bilirubin (NEGATIVE) Urine Urobilinogen (0-1) mg/dL Ur Leukocyte Esterase (NEGATIVE) Urine WBC (Auto) (0-5) /HPF Urine RBC (Auto) (0-2) /HPF U Epithel Cells (Auto) (FEW) /HPF Urine Bacteria (Auto) (NEGATIVE) /HPF Urine Mucus (Auto) (NEGATIVE) /HPF Urine Culture Reflexed (NO) Urine Glucose (NEGATIVE) mg/dL Ethyl Alcohol (0-10) mg/dL Group A Strep Antibody NEGATIVE (NEGATIVE) 09/25/19 09/25/19 Range/Units 04:26 04:26 WBC 7.8 (4.0-10.5) K/mm3 RBC 4.11 (4.1-5.6) M/mm3 Hgb 11.7 L D (12.5-18.0) gm/dl Hct 34.5 L (42-50) % MCV 83.9 (78-100) fl MCH 28.5 (26-32) pg MCHC 33.9 (32-36) g/dl RDW 12.4 (11.5-14.0) % Plt Count 313 (150-450) K/mm3 MPV 8.5 (7.5-11.0) fl Gran % (36.0-66.0) % Eos # (Auto) (0-0.5) Absolute Lymphs (auto) (1.0-4.6) Absolute Monos (auto) (0.0-1.3) Lymphocytes % (24.0-44.0) % Monocytes % (0.0-12.0) % Eosinophils % (0.00-5.0) % Basophils % (0.0-0.4) % Absolute Granulocytes (1.4-6.9) Basophils # (0-0.4) Puncture Site pCO2 (35-45) mmHg pO2 (75-100) mmHg Base Excess (-2.0-2.0) O2 Saturation (94-100) g/dF ABG pH (7.35-7.45) ABG HCO3 (22-28) ABG O2 Sat (Measured) (95-100) % Arnaldo Test A-a Gradient a/A Ratio Hemoglobin Carboxyhemoglobin (0.0-6.9) % THgb Methemoglobin (1.4-1.5) % Temperature C POC O2 Flow Rate % Sodium 132 L (137-145) mmol/L Potassium 4.1 (3.5-5.1) mmol/L Chloride 95 L (98-107) mmol/L Carbon Dioxide 31 H (22-30) mmol/L Anion Gap 10.6 (5-15) MEQ/L BUN 16 (9-20) mg/dL Creatinine 0.81 (0.66-1.25) mg/dL Estimated GFR > 60.0 ML/MIN Glucose 335 H (74-106) mg/dL Lactic Acid (0.4-2.0) Calcium 8.4 (8.4-10.2) mg/dL Magnesium (1.6-2.3) mg/dL Total Bilirubin (0.2-1.3) mg/dL AST (17-59) U/L ALT (0-50) U/L Alkaline Phosphatase (38-126) U/L Troponin I (0.000-0.034) ng/mL NT-Pro-B Natriuret Pep (0-450) pg/mL Serum Total Protein (6.3-8.2) g/dL Albumin (3.5-5.0) g/dL Lipase (23-300) U/L Urine Color (YELLOW) Urine Appearance (CLEAR) Urine pH (5-6) Ur Specific [place] (1.005-1.025) Urine Protein (Negative) Urine Ketones (NEGATIVE) Urine Blood (0-5) Tomas/ul Urine Nitrite (NEGATIVE) Urine Bilirubin (NEGATIVE) Urine Urobilinogen (0-1) mg/dL Ur Leukocyte Esterase (NEGATIVE) Urine WBC (Auto) (0-5) /HPF Urine RBC (Auto) (0-2) /HPF U Epithel Cells (Auto) (FEW) /HPF Urine Bacteria (Auto) (NEGATIVE) /HPF Urine Mucus (Auto) (NEGATIVE) /HPF Urine Culture Reflexed (NO) Urine Glucose (NEGATIVE) mg/dL Ethyl Alcohol (0-10) mg/dL Group A Strep Antibody (NEGATIVE) Accuchecks Accucheck Value: 202 Accucheck Value: 290 Accucheck Value: 124 Accucheck Value: 261 Accucheck Value: 234 Accucheck Value: 301 Accucheck Value: 515 - Radiology Impressions Radiology Exams & Impressions: Radiology Procedures Category Date Time Status ABDOMEN AND PELVIS W CONTRAST [CT] Stat Exams 09/24/19 11:07 Completed CHEST 1 VIEW (PORTABLE) Stat Exams 09/24/19 09:47 Completed Assessment/Plan (1) Hyperglycemia Current Visit: Yes Status: Resolved Assessment & Plan: Pt was only taking novolog at home, states he was confused about which insulin to take and worried he would bottom out. Will give 10 units Lantus this morning and asked RN to provide more education. Again, would be so beneficial if pt would f/u in the office. Code(s): R73.9 - HYPERGLYCEMIA, UNSPECIFIED (2) Nausea and vomiting Current Visit: Yes Status: Resolved Qualifiers: Vomiting type: unspecified Vomiting Intractability: non-intractable Qualified Code(s): R11.2 - Nausea with vomiting, unspecified Code(s): R11.2 - NAUSEA WITH VOMITING, UNSPECIFIED (3) Diabetes mellitus type I Current Visit: Yes Status: Chronic Onset Date: ~05/30/18 Qualifiers: Diabetes mellitus complication status: without complication Qualified Code( s): E10.9 - Type 1 diabetes mellitus without complications (4) Illicit drug use Current Visit: Yes Status: Chronic Onset Date: ~05/30/18 Code(s): F19.90 - OTHER PSYCHOACTIVE SUBSTANCE USE, UNSPECIFIED, UNCOMPLICATED Hospital Summary - Hospital Course Hospital Course: is a 33 year old noncompliant male pt of mine (last seen at [facility] in 2015) with insulin dependent diabetes and polysubstance abuse hx who was admitted last night through ER with epigastric/RUQ abd pain, vomiting, and elevated BS. He did have an anion gap of 23.7 but a CO2 of 30 and pH of 7.47. He was given insulin drip and IV fluids, although his BS corrected fairly quickly and the drip was stopped when pt was moved to the floor. We resumed the drip at 2units/hour; he was on D5 1/2NS at this time. By evening his anion gap had normalized and he was changed from hourly to q4h accuchecks. Pt had been sick x 5d at home. He states he moved into his friend's home and the girlfriend is and he has had sympathy morning sickness with her in the past. Denies anything else new. Admits to smoking marijuana but denies any other substances. This morning his nausea has resolved and his abd pain is nearly gone. His potassium has been normal throughout. He had elevated BP on admission up to 180s systolic, but after 1 dose of IV labetalol his bp went down; was in the 90s systolic at one point through the night. If he can tolerate up to [place] at suppertime he will be fine to discharge to home. - Vitals & Intake/Output Vital Signs: Vital Signs Temperature 97.6 F 09/25/19 07:08 Pulse Rate 83 09/25/19 08:00 Respiratory Rate 14 09/25/19 07:08 Blood Pressure 116/72 09/25/19 07:08 O2 Sat by Pulse Oximetry 99 09/25/19 07:08 Intake & Output: Intake & Output 09/22/19 09/23/19 09/24/1907/20 11:59 11:59 11:59 11:59 Intake Total 2870 Output Total 700 Balance 2170 Weight 68.039 kg 67.1 kg - Lab Result Diagrams: 09/25/19 04:26 09/25/19 04:26 Lab Results-Last 24 Hrs: Accuchecks Accucheck Value: 202 Accucheck Value: 290 Accucheck Value: 124 Accucheck Value: 261 Accucheck Value: 234 Accucheck Value: 301 Accucheck Value: 515 Lab Results-Last 24 Hours 09/24/19 09/24/19 09/24/19 Range/Units 10:10 10:10 10:10 WBC 10.9 H (4.0-10.5) K/mm3 RBC 5.32 (4.1-5.6) M/mm3 Hgb 15.2 (12.5-18.0) gm/dl Hct 43.3 (42-50) % MCV 81.4 (78-100) fl MCH 28.6 (26-32) pg MCHC 35.1 (32-36) g/dl RDW 12.4 (11.5-14.0) % Plt Count 403 (150-450) K/mm3 MPV 8.7 (7.5-11.0) fl Gran % 84.6 H (36.0-66.0) % Eos # (Auto) 0.09 (0-0.5) Absolute Lymphs (auto) 0.93 L (1.0-4.6) Absolute Monos (auto) 0.65 (0.0-1.3) Lymphocytes % 8.5 L (24.0-44.0) % Monocytes % 5.9 (0.0-12.0) % Eosinophils % 0.8 (0.00-5.0) % Basophils % 0.2 (0.0-0.4) % Absolute Granulocytes 9.24 H (1.4-6.9) Basophils # 0.02 (0-0.4) Puncture Site pCO2 (35-45) mmHg pO2 (75-100) mmHg Base Excess (-2.0-2.0) O2 Saturation (94-100) g/dF ABG pH (7.35-7.45) ABG HCO3 (22-28) ABG O2 Sat (Measured) (95-100) % Arnaldo Test A-a Gradient a/A Ratio Hemoglobin Carboxyhemoglobin (0.0-6.9) % THgb Methemoglobin (1.4-1.5) % Temperature C POC O2 Flow Rate % Sodium 134 L (137-145) mmol/L Potassium 4.1 (3.5-5.1) mmol/L Chloride 84 L (98-107) mmol/L Carbon Dioxide 30 (22-30) mmol/L Anion Gap 23.7 H (5-15) MEQ/L BUN 22 H (9-20) mg/dL Creatinine 0.98 (0.66-1.25) mg/dL Estimated GFR > 60.0 ML/MIN Glucose 454 H (74-106) mg/dL Lactic Acid (0.4-2.0) Calcium 10.1 (8.4-10.2) mg/dL Magnesium 1.8 (1.6-2.3) mg/dL Total Bilirubin 1.00 (0.2-1.3) mg/dL AST 28 (17-59) U/L ALT 24 (0-50) U/L Alkaline Phosphatase 130 H (38-126) U/L Troponin I (0.000-0.034) ng/mL NT-Pro-B Natriuret Pep (0-450) pg/mL Serum Total Protein 8.4 H (6.3-8.2) g/dL Albumin 4.7 (3.5-5.0) g/dL Lipase < 10 L (23-300) U/L Urine Color (YELLOW) Urine Appearance (CLEAR) Urine pH (5-6) Ur Specific [place] (1.005-1.025) Urine Protein (Negative) Urine Ketones (NEGATIVE) Urine Blood (0-5) Tomas/ul Urine Nitrite (NEGATIVE) Urine Bilirubin (NEGATIVE) Urine Urobilinogen (0-1) mg/dL Ur Leukocyte Esterase (NEGATIVE) Urine WBC (Auto) (0-5) /HPF Urine RBC (Auto) (0-2) /HPF U Epithel Cells (Auto) (FEW) /HPF Urine Bacteria (Auto) (NEGATIVE) /HPF Urine Mucus (Auto) (NEGATIVE) /HPF Urine Culture Reflexed (NO) Urine Glucose (NEGATIVE) mg/dL Ethyl Alcohol < 10 (0-10) mg/dL Group A Strep Antibody (NEGATIVE) 09/24/19 09/24/19 09/24/19 Range/Units 10:22 11:30 12:26 WBC (4.0-10.5) K/mm3 RBC (4.1-5.6) M/mm3 Hgb (12.5-18.0) gm/dl Hct (42-50) % MCV (78-100) fl MCH (26-32) pg MCHC (32-36) g/dl RDW (11.5-14.0) % Plt Count (150-450) K/mm3 MPV (7.5-11.0) fl Gran % (36.0-66.0) % Eos # (Auto) (0-0.5) Absolute Lymphs (auto) (1.0-4.6) Absolute Monos (auto) (0.0-1.3) Lymphocytes % (24.0-44.0) % Monocytes % (0.0-12.0) % Eosinophils % (0.00-5.0) % Basophils % (0.0-0.4) % Absolute Granulocytes (1.4-6.9) Basophils # (0-0.4) Puncture Site LEFT RADIAL pCO2 44 (35-45) mmHg pO2 96 (75-100) mmHg Base Excess 7.4 H (-2.0-2.0) O2 Saturation 96.5 (94-100) g/dF ABG pH 7.47 H (7.35-7.45) ABG HCO3 32.0 H* (22-28) ABG O2 Sat (Measured) 98.8 (95-100) % Arnaldo Test YES A-a Gradient -1 a/A Ratio 1.01 Hemoglobin 15.0 Carboxyhemoglobin 1.5 (0.0-6.9) % THgb Methemoglobin 0.7 L (1.4-1.5) % Temperature 37.0 C POC O2 Flow Rate 21 % Sodium (137-145) mmol/L Potassium 3.8 (3.5-5.1) mmol/L Chloride (98-107) mmol/L Carbon Dioxide (22-30) mmol/L Anion Gap (5-15) MEQ/L BUN (9-20) mg/dL Creatinine (0.66-1.25) mg/dL Estimated GFR ML/MIN Glucose (74-106) mg/dL Lactic Acid 6.2 H 4.4 H (0.4-2.0) Calcium (8.4-10.2) mg/dL Magnesium (1.6-2.3) mg/dL Total Bilirubin (0.2-1.3) mg/dL AST (17-59) U/L ALT (0-50) U/L Alkaline Phosphatase (38-126) U/L Troponin I < 0.012 (0.000-0.034) ng/mL NT-Pro-B Natriuret Pep (0-450) pg/mL Serum Total Protein (6.3-8.2) g/dL Albumin (3.5-5.0) g/dL Lipase (23-300) U/L Urine Color (YELLOW) Urine Appearance (CLEAR) Urine pH (5-6) Ur Specific [place] (1.005-1.025) Urine Protein (Negative) Urine Ketones (NEGATIVE) Urine Blood (0-5) Tomas/ul Urine Nitrite (NEGATIVE) Urine Bilirubin (NEGATIVE) Urine Urobilinogen (0-1) mg/dL Ur Leukocyte Esterase (NEGATIVE) Urine WBC (Auto) (0-5) /HPF Urine RBC (Auto) (0-2) /HPF U Epithel Cells (Auto) (FEW) /HPF Urine Bacteria (Auto) (NEGATIVE) /HPF Urine Mucus (Auto) (NEGATIVE) /HPF Urine Culture Reflexed (NO) Urine Glucose (NEGATIVE) mg/dL Ethyl Alcohol (0-10) mg/dL Group A Strep Antibody (NEGATIVE) 09/24/19 09/24/19 09/24/19 Range/Units 12:37 14:27 14:29 WBC (4.0-10.5) K/mm3 RBC (4.1-5.6) M/mm3 Hgb (12.5-18.0) gm/dl Hct (42-50) % MCV (78-100) fl MCH (26-32) pg MCHC (32-36) g/dl RDW (11.5-14.0) % Plt Count (150-450) K/mm3 MPV (7.5-11.0) fl Gran % (36.0-66.0) % Eos # (Auto) (0-0.5) Absolute Lymphs (auto) (1.0-4.6) Absolute Monos (auto) (0.0-1.3) Lymphocytes % (24.0-44.0) % Monocytes % (0.0-12.0) % Eosinophils % (0.00-5.0) % Basophils % (0.0-0.4) % Absolute Granulocytes (1.4-6.9) Basophils # (0-0.4) Puncture Site pCO2 (35-45) mmHg pO2 (75-100) mmHg Base Excess (-2.0-2.0) O2 Saturation (94-100) g/dF ABG pH (7.35-7.45) ABG HCO3 (22-28) ABG O2 Sat (Measured) (95-100) % Arnaldo Test A-a Gradient a/A Ratio Hemoglobin Carboxyhemoglobin (0.0-6.9) % THgb Methemoglobin (1.4-1.5) % Temperature C POC O2 Flow Rate % Sodium 136 L (137-145) mmol/L Potassium 3.6 (3.5-5.1) mmol/L Chloride 90 L (98-107) mmol/L Carbon Dioxide 32 H (22-30) mmol/L Anion Gap 17.4 H (5-15) MEQ/L BUN 21 H (9-20) mg/dL Creatinine 0.79 (0.66-1.25) mg/dL Estimated GFR > 60.0 ML/MIN Glucose 250 H 344 H (74-106) mg/dL Lactic Acid (0.4-2.0) Calcium 9.2 (8.4-10.2) mg/dL Magnesium (1.6-2.3) mg/dL Total Bilirubin (0.2-1.3) mg/dL AST (17-59) U/L ALT (0-50) U/L Alkaline Phosphatase (38-126) U/L Troponin I < 0.012 (0.000-0.034) ng/mL NT-Pro-B Natriuret Pep (0-450) pg/mL Serum Total Protein (6.3-8.2) g/dL Albumin (3.5-5.0) g/dL Lipase (23-300) U/L Urine Color (YELLOW) Urine Appearance (CLEAR) Urine pH (5-6) Ur Specific [place] (1.005-1.025) Urine Protein (Negative) Urine Ketones (NEGATIVE) Urine Blood (0-5) Tomas/ul Urine Nitrite (NEGATIVE) Urine Bilirubin (NEGATIVE) Urine Urobilinogen (0-1) mg/dL Ur Leukocyte Esterase (NEGATIVE) Urine WBC (Auto) (0-5) /HPF Urine RBC (Auto) (0-2) /HPF U Epithel Cells (Auto) (FEW) /HPF Urine Bacteria (Auto) (NEGATIVE) /HPF Urine Mucus (Auto) (NEGATIVE) /HPF Urine Culture Reflexed (NO) Urine Glucose (NEGATIVE) mg/dL Ethyl Alcohol (0-10) mg/dL Group A Strep Antibody (NEGATIVE) 09/24/19 09/24/19 09/24/19 Range/Units 14:35 15:09 15:30 WBC (4.0-10.5) K/mm3 RBC (4.1-5.6) M/mm3 Hgb (12.5-18.0) gm/dl Hct (42-50) % MCV (78-100) fl MCH (26-32) pg MCHC (32-36) g/dl RDW (11.5-14.0) % Plt Count (150-450) K/mm3 MPV (7.5-11.0) fl Gran % (36.0-66.0) % Eos # (Auto) (0-0.5) Absolute Lymphs (auto) (1.0-4.6) Absolute Monos (auto) (0.0-1.3) Lymphocytes % (24.0-44.0) % Monocytes % (0.0-12.0) % Eosinophils % (0.00-5.0) % Basophils % (0.0-0.4) % Absolute Granulocytes (1.4-6.9) Basophils # (0-0.4) Puncture Site pCO2 (35-45) mmHg pO2 (75-100) mmHg Base Excess (-2.0-2.0) O2 Saturation (94-100) g/dF ABG pH (7.35-7.45) ABG HCO3 (22-28) ABG O2 Sat (Measured) (95-100) % Arnaldo Test A-a Gradient a/A Ratio Hemoglobin Carboxyhemoglobin (0.0-6.9) % THgb Methemoglobin (1.4-1.5) % Temperature C POC O2 Flow Rate % Sodium (137-145) mmol/L Potassium (3.5-5.1) mmol/L Chloride (98-107) mmol/L Carbon Dioxide (22-30) mmol/L Anion Gap (5-15) MEQ/L BUN (9-20) mg/dL Creatinine (0.66-1.25) mg/dL Estimated GFR ML/MIN Glucose 346 H (74-106) mg/dL Lactic Acid 1.8 (0.4-2.0) Calcium (8.4-10.2) mg/dL Magnesium (1.6-2.3) mg/dL Total Bilirubin (0.2-1.3) mg/dL AST (17-59) U/L ALT (0-50) U/L Alkaline Phosphatase (38-126) U/L Troponin I (0.000-0.034) ng/mL NT-Pro-B Natriuret Pep 49.8 (0-450) pg/mL Serum Total Protein (6.3-8.2) g/dL Albumin (3.5-5.0) g/dL Lipase (23-300) U/L Urine Color YELLOW (YELLOW) Urine Appearance CLEAR (CLEAR) Urine pH 8.0 (5-6) Ur Specific [place] >1.060 (1.005-1.025) Urine Protein 100 (Negative) Urine Ketones SMALL (NEGATIVE) Urine Blood NEGATIVE (0-5) Tomas/ul Urine Nitrite NEGATIVE (NEGATIVE) Urine Bilirubin NEGATIVE (NEGATIVE) Urine Urobilinogen 2 (0-1) mg/dL Ur Leukocyte Esterase NEGATIVE (NEGATIVE) Urine WBC (Auto) 3-5 (0-5) /HPF Urine RBC (Auto) 16-25 (0-2) /HPF U Epithel Cells (Auto) NONE (FEW) /HPF Urine Bacteria (Auto) NONE (NEGATIVE) /HPF Urine Mucus (Auto) SLIGHT (NEGATIVE) /HPF Urine Culture Reflexed ORDERED SEPARATELY (NO) Urine Glucose >=500 (NEGATIVE) mg/dL Ethyl Alcohol (0-10) mg/dL Group A Strep Antibody (NEGATIVE) 09/24/19 09/24/19 09/24/19 Range/Units 15:30 16:30 17:49 WBC (4.0-10.5) K/mm3 RBC (4.1-5.6) M/mm3 Hgb (12.5-18.0) gm/dl Hct (42-50) % MCV (78-100) fl MCH (26-32) pg MCHC (32-36) g/dl RDW (11.5-14.0) % Plt Count (150-450) K/mm3 MPV (7.5-11.0) fl Gran % (36.0-66.0) % Eos # (Auto) (0-0.5) Absolute Lymphs (auto) (1.0-4.6) Absolute Monos (auto) (0.0-1.3) Lymphocytes % (24.0-44.0) % Monocytes % (0.0-12.0) % Eosinophils % (0.00-5.0) % Basophils % (0.0-0.4) % Absolute Granulocytes (1.4-6.9) Basophils # (0-0.4) Puncture Site pCO2 (35-45) mmHg pO2 (75-100) mmHg Base Excess (-2.0-2.0) O2 Saturation (94-100) g/dF ABG pH (7.35-7.45) ABG HCO3 (22-28) ABG O2 Sat (Measured) (95-100) % Arnaldo Test A-a Gradient a/A Ratio Hemoglobin Carboxyhemoglobin (0.0-6.9) % THgb Methemoglobin (1.4-1.5) % Temperature C POC O2 Flow Rate % Sodium 132 L (137-145) mmol/L Potassium 4.3 (3.5-5.1) mmol/L Chloride 93 L (98-107) mmol/L Carbon Dioxide 29 (22-30) mmol/L Anion Gap 14.4 (5-15) MEQ/L BUN 19 (9-20) mg/dL Creatinine 0.75 (0.66-1.25) mg/dL Estimated GFR > 60.0 ML/MIN Glucose 352 H 275 H (74-106) mg/dL Lactic Acid (0.4-2.0) Calcium 8.6 (8.4-10.2) mg/dL Magnesium (1.6-2.3) mg/dL Total Bilirubin (0.2-1.3) mg/dL AST (17-59) U/L ALT (0-50) U/L Alkaline Phosphatase (38-126) U/L Troponin I < 0.012 (0.000-0.034) ng/mL NT-Pro-B Natriuret Pep (0-450) pg/mL Serum Total Protein (6.3-8.2) g/dL Albumin (3.5-5.0) g/dL Lipase (23-300) U/L Urine Color (YELLOW) Urine Appearance (CLEAR) Urine pH (5-6) Ur Specific [place] (1.005-1.025) Urine Protein (Negative) Urine Ketones (NEGATIVE) Urine Blood (0-5) Tomas/ul Urine Nitrite (NEGATIVE) Urine Bilirubin (NEGATIVE) Urine Urobilinogen (0-1) mg/dL Ur Leukocyte Esterase (NEGATIVE) Urine WBC (Auto) (0-5) /HPF Urine RBC (Auto) (0-2) /HPF U Epithel Cells (Auto) (FEW) /HPF Urine Bacteria (Auto) (NEGATIVE) /HPF Urine Mucus (Auto) (NEGATIVE) /HPF Urine Culture Reflexed (NO) Urine Glucose (NEGATIVE) mg/dL Ethyl Alcohol (0-10) mg/dL Group A Strep Antibody (NEGATIVE) 09/24/19 09/24/19 09/24/19 Range/Units 17:49 18:40 19:59 WBC (4.0-10.5) K/mm3 RBC (4.1-5.6) M/mm3 Hgb (12.5-18.0) gm/dl Hct (42-50) % MCV (78-100) fl MCH (26-32) pg MCHC (32-36) g/dl RDW (11.5-14.0) % Plt Count (150-450) K/mm3 MPV (7.5-11.0) fl Gran % (36.0-66.0) % Eos # (Auto) (0-0.5) Absolute Lymphs (auto) (1.0-4.6) Absolute Monos (auto) (0.0-1.3) Lymphocytes % (24.0-44.0) % Monocytes % (0.0-12.0) % Eosinophils % (0.00-5.0) % Basophils % (0.0-0.4) % Absolute Granulocytes (1.4-6.9) Basophils # (0-0.4) Puncture Site pCO2 (35-45) mmHg pO2 (75-100) mmHg Base Excess (-2.0-2.0) O2 Saturation (94-100) g/dF ABG pH (7.35-7.45) ABG HCO3 (22-28) ABG O2 Sat (Measured) (95-100) % Arnaldo Test A-a Gradient a/A Ratio Hemoglobin Carboxyhemoglobin (0.0-6.9) % THgb Methemoglobin (1.4-1.5) % Temperature C POC O2 Flow Rate % Sodium 134 L (137-145) mmol/L Potassium 4.1 (3.5-5.1) mmol/L Chloride 95 L (98-107) mmol/L Carbon Dioxide 29 (22-30) mmol/L Anion Gap 13.0 (5-15) MEQ/L BUN 17 (9-20) mg/dL Creatinine 0.78 (0.66-1.25) mg/dL Estimated GFR > 60.0 ML/MIN Glucose 219 H 195 H (74-106) mg/dL Lactic Acid (0.4-2.0) Calcium 8.6 (8.4-10.2) mg/dL Magnesium (1.6-2.3) mg/dL Total Bilirubin (0.2-1.3) mg/dL AST (17-59) U/L ALT (0-50) U/L Alkaline Phosphatase (38-126) U/L Troponin I < 0.012 (0.000-0.034) ng/mL NT-Pro-B Natriuret Pep (0-450) pg/mL Serum Total Protein (6.3-8.2) g/dL Albumin (3.5-5.0) g/dL Lipase (23-300) U/L Urine Color (YELLOW) Urine Appearance (CLEAR) Urine pH (5-6) Ur Specific [place] (1.005-1.025) Urine Protein (Negative) Urine Ketones (NEGATIVE) Urine Blood (0-5) Tomas/ul Urine Nitrite (NEGATIVE) Urine Bilirubin (NEGATIVE) Urine Urobilinogen (0-1) mg/dL Ur Leukocyte Esterase (NEGATIVE) Urine WBC (Auto) (0-5) /HPF Urine RBC (Auto) (0-2) /HPF U Epithel Cells (Auto) (FEW) /HPF Urine Bacteria (Auto) (NEGATIVE) /HPF Urine Mucus (Auto) (NEGATIVE) /HPF Urine Culture Reflexed (NO) Urine Glucose (NEGATIVE) mg/dL Ethyl Alcohol (0-10) mg/dL Group A Strep Antibody (NEGATIVE) 09/24/19 09/24/19 09/24/19 Range/Units 19:59 22:50 Unknown WBC (4.0-10.5) K/mm3 RBC (4.1-5.6) M/mm3 Hgb (12.5-18.0) gm/dl Hct (42-50) % MCV (78-100) fl MCH (26-32) pg MCHC (32-36) g/dl RDW (11.5-14.0) % Plt Count (150-450) K/mm3 MPV (7.5-11.0) fl Gran % (36.0-66.0) % Eos # (Auto) (0-0.5) Absolute Lymphs (auto) (1.0-4.6) Absolute Monos (auto) (0.0-1.3) Lymphocytes % (24.0-44.0) % Monocytes % (0.0-12.0) % Eosinophils % (0.00-5.0) % Basophils % (0.0-0.4) % Absolute Granulocytes (1.4-6.9) Basophils # (0-0.4) Puncture Site pCO2 (35-45) mmHg pO2 (75-100) mmHg Base Excess (-2.0-2.0) O2 Saturation (94-100) g/dF ABG pH (7.35-7.45) ABG HCO3 (22-28) ABG O2 Sat (Measured) (95-100) % Arnaldo Test A-a Gradient a/A Ratio Hemoglobin Carboxyhemoglobin (0.0-6.9) % THgb Methemoglobin (1.4-1.5) % Temperature C POC O2 Flow Rate % Sodium (137-145) mmol/L Potassium (3.5-5.1) mmol/L Chloride (98-107) mmol/L Carbon Dioxide (22-30) mmol/L Anion Gap (5-15) MEQ/L BUN (9-20) mg/dL Creatinine (0.66-1.25) mg/dL Estimated GFR ML/MIN Glucose 229 H (74-106) mg/dL Lactic Acid (0.4-2.0) Calcium (8.4-10.2) mg/dL Magnesium (1.6-2.3) mg/dL Total Bilirubin (0.2-1.3) mg/dL AST (17-59) U/L ALT (0-50) U/L Alkaline Phosphatase (38-126) U/L Troponin I < 0.012 (0.000-0.034) ng/mL NT-Pro-B Natriuret Pep (0-450) pg/mL Serum Total Protein (6.3-8.2) g/dL Albumin (3.5-5.0) g/dL Lipase (23-300) U/L Urine Color (YELLOW) Urine Appearance (CLEAR) Urine pH (5-6) Ur Specific [place] (1.005-1.025) Urine Protein (Negative) Urine Ketones (NEGATIVE) Urine Blood (0-5) Tomas/ul Urine Nitrite (NEGATIVE) Urine Bilirubin (NEGATIVE) Urine Urobilinogen (0-1) mg/dL Ur Leukocyte Esterase (NEGATIVE) Urine WBC (Auto) (0-5) /HPF Urine RBC (Auto) (0-2) /HPF U Epithel Cells (Auto) (FEW) /HPF Urine Bacteria (Auto) (NEGATIVE) /HPF Urine Mucus (Auto) (NEGATIVE) /HPF Urine Culture Reflexed (NO) Urine Glucose (NEGATIVE) mg/dL Ethyl Alcohol (0-10) mg/dL Group A Strep Antibody NEGATIVE (NEGATIVE) 09/25/19 09/25/19 Range/Units 04:26 04:26 WBC 7.8 (4.0-10.5) K/mm3 RBC 4.11 (4.1-5.6) M/mm3 Hgb 11.7 L D (12.5-18.0) gm/dl Hct 34.5 L (42-50) % MCV 83.9 (78-100) fl MCH 28.5 (26-32) pg MCHC 33.9 (32-36) g/dl RDW 12.4 (11.5-14.0) % Plt Count 313 (150-450) K/mm3 MPV 8.5 (7.5-11.0) fl Gran % (36.0-66.0) % Eos # (Auto) (0-0.5) Absolute Lymphs (auto) (1.0-4.6) Absolute Monos (auto) (0.0-1.3) Lymphocytes % (24.0-44.0) % Monocytes % (0.0-12.0) % Eosinophils % (0.00-5.0) % Basophils % (0.0-0.4) % Absolute Granulocytes (1.4-6.9) Basophils # (0-0.4) Puncture Site pCO2 (35-45) mmHg pO2 (75-100) mmHg Base Excess (-2.0-2.0) O2 Saturation (94-100) g/dF ABG pH (7.35-7.45) ABG HCO3 (22-28) ABG O2 Sat (Measured) (95-100) % Arnaldo Test A-a Gradient a/A Ratio Hemoglobin Carboxyhemoglobin (0.0-6.9) % THgb Methemoglobin (1.4-1.5) % Temperature C POC O2 Flow Rate % Sodium 132 L (137-145) mmol/L Potassium 4.1 (3.5-5.1) mmol/L Chloride 95 L (98-107) mmol/L Carbon Dioxide 31 H (22-30) mmol/L Anion Gap 10.6 (5-15) MEQ/L BUN 16 (9-20) mg/dL Creatinine 0.81 (0.66-1.25) mg/dL Estimated GFR > 60.0 ML/MIN Glucose 335 H (74-106) mg/dL Lactic Acid (0.4-2.0) Calcium 8.4 (8.4-10.2) mg/dL Magnesium (1.6-2.3) mg/dL Total Bilirubin (0.2-1.3) mg/dL AST (17-59) U/L ALT (0-50) U/L Alkaline Phosphatase (38-126) U/L Troponin I (0.000-0.034) ng/mL NT-Pro-B Natriuret Pep (0-450) pg/mL Serum Total Protein (6.3-8.2) g/dL Albumin (3.5-5.0) g/dL Lipase (23-300) U/L Urine Color (YELLOW) Urine Appearance (CLEAR) Urine pH (5-6) Ur Specific [place] (1.005-1.025) Urine Protein (Negative) Urine Ketones (NEGATIVE) Urine Blood (0-5) Tomas/ul Urine Nitrite (NEGATIVE) Urine Bilirubin (NEGATIVE) Urine Urobilinogen (0-1) mg/dL Ur Leukocyte Esterase (NEGATIVE) Urine WBC (Auto) (0-5) /HPF Urine RBC (Auto) (0-2) /HPF U Epithel Cells (Auto) (FEW) /HPF Urine Bacteria (Auto) (NEGATIVE) /HPF Urine Mucus (Auto) (NEGATIVE) /HPF Urine Culture Reflexed (NO) Urine Glucose (NEGATIVE) mg/dL Ethyl Alcohol (0-10) mg/dL Group A Strep Antibody (NEGATIVE) Micro Results-Entire Visit: Accuchecks Accucheck Value: 202 Accucheck Value: 290 Accucheck Value: 124 Accucheck Value: 261 Accucheck Value: 234 Accucheck Value: 301 Accucheck Value: 515 - Radiology Exams Ordered Rad Exams-Entire Visit: Radiology Procedures Category Date Time Status ABDOMEN AND PELVIS W CONTRAST [CT] Stat Exams 09/24/19 11:07 Completed CHEST 1 VIEW (PORTABLE) Stat Exams 09/24/19 09:47 Completed - Discharge Disposition: Home, Self-Care Condition: Stable Prescriptions: Continue Insulin Glargine,Hum.rec.anlog [Basaglar Kwikpen U-100] 20 unit SQ DAILY #5 insuln.pen Insulin Aspart [NovoLOG Insulin] 5 unit SQ TIDAC #5 pens Follow up with: VALENTINA ESPINO [Primary Care Provider] - 1 Week
[2019-09-25] MEDS ORDERED: Lantus Insulin SQ SCH (11:04)
[2019-09-25 16:35] VITALS: BP 134/81; O2SAT 98
[2019-09-25 16:41] VITALS: PULSE 92
[2019-09-26] MEDS ORDERED: Lantus Insulin SQ SCH (08:00)
== END 2019-09-25 19:22 | disposition home or self-care (01) ==
LOC: ED 09:11 → ICU 13:55
PROVIDERS: ADMIT Family Medicine; ATTEND Family Medicine
DX: E10.65 Type 1 diabetes mellitus with hyperglycemia (principal); R11.2 Nausea with vomiting, unspecified; F19.90 Other psychoactive substance use, unspecified, uncomplicated
CPT/HCPCS: 36000; 36415; 74177; 80048; 80053; 81001; 82375; 82803; 82947; 82962; 83605; 83690; 83735; 83880; 84484; 85025; 85027; 87086; 87651; 93005; 93041; 96360; 96361; 96365; 96368; 96374; 96375; 96376; 99291; G0378; G0480; 10080; 36600; 71045; 80307; 94760; 99285; J1815; J2270; J2405; J2550; J3480; A9270-GY

== ENCOUNTER 2019-09-26 10:13 | Emergency (ER) | payer OTHER ==
[2019-09-26] MEDS ORDERED: Zofran 4 MG/2 ML VIAL IV ONE (10:41)
--- NOTE | 2019-09-26 10:48 | ERPHSYRPT ---
- History of Present Illness Time Seen by Provider: 09/26/19 10:43 Historian: patient Exam Limitations: no limitations Patient Subjective Stated Complaint: Pt states "I was released from here two days ago and I was feeling great, now I feel horrible again. I am nauseated and my abdomen is burning." Triage Nursing Assessment: Pt presented laert nad oriented X 3, skin pwd pt ambulates with an upright steady gait, able to speak in clear full sentences pt in no apparent repsiratory distress. Physician History: Pt states "I was released from here two days ago and I was feeling great, now I feel horrible again. I am nauseated and my abdomen is burning." (Patient 33-year-old male discharged from the hospital Having abdominal pain to be related to constipation. Patient was just discharged yesterday and today he started having severe nausea and vomiting with bloating pain in his epigastric area. Patient denies any fevers chills. Timing/Duration: today Activities at Onset: none Quality: burning Abdominal Pain Onset Location: epigastric Pain Radiation: no radiation Severity of Pain-Max: moderate Severity of Pain-Current: moderate Modifying Factors: Improves With: nothing Associated Symptoms: loss of appetite, nausea, No fever/chills Previous symptoms: same symptoms as today Allergies/Adverse Reactions: No Known Drug Allergies Allergy (Verified 09/24/19 09:38) Hx Tetanus, Diphtheria Vaccination/Date Given: Yes Hx Influenza Vaccination/Date Given: No Hx Pneumococcal Vaccination/Date Given: No Immunizations Up to Date: Yes - Review of Systems Constitutional: No Fever, No Chills Eyes: No Symptoms Ears, Nose, & Throat: No Symptoms Respiratory: No Cough, No Dyspnea Cardiac: No Chest Pain, No Edema, No Syncope Abdominal/Gastrointestinal: Abdominal Pain, Nausea, Vomiting, Appetite Changes, No Diarrhea, No Hematemesis, No Hematochezia Genitourinary Symptoms: No Dysuria Musculoskeletal: No Back Pain, No Neck Pain Skin: No Rash Neurological: No Dizziness, No Focal Weakness, No Sensory Changes Psychological: No Symptoms Endocrine: No Symptoms All Other Systems: Reviewed and Negative - Past Medical History Pertinent Past Medical History: Yes Neurological History: No Pertinent History ENT History: No Pertinent History Cardiac History: No Pertinent History Respiratory History: No Pertinent History Endocrine Medical History: Diabetes Type I Musculoskeletal History: No Pertinent History GI Medical History: No Pertinent History History: No Pertinent History Psycho-Social History: Anxiety, Depression Male Reproductive Disorders: No Pertinent History Other Medical History: DKA - Past Surgical History Past Surgical History: No Neuro Surgical History: No Pertinent History Cardiac: No Pertinent History Respiratory: No Pertinent History Gastrointestinal: No Pertinent History Genitourinary: No Pertinent History Musculoskeletal: No Pertinent History Male Surgical History: No Pertinent History Other Surgical History: . - Social History Smoking Status: Never smoker Exposure to second hand smoke: Yes Drug Use: marijuana, methamphetamines Patient Lives Alone: No - Nursing Vital Signs Nursing Vital Signs: Initial Vital Signs Temperature 97.8 F 09/26/19 10:17 Pulse Rate 105 H 09/26/19 10:17 Respiratory Rate 24 09/26/19 10:17 Blood Pressure 200/110 09/26/19 10:17 O2 Sat by Pulse Oximetry 97 09/26/19 10:17 Pain Scale Pain Intensity 4 - Physical Exam General Appearance: no apparent distress, alert Eye Exam: PERRL/EOMI, eyes nml inspection Ears, Nose, Throat Exam: normal ENT inspection, pharynx normal, moist mucous membranes Neck Exam: normal inspection, non-tender, supple, full range of motion Respiratory Exam: normal breath sounds, lungs clear, No respiratory distress Cardiovascular Exam: regular rate/rhythm, normal heart sounds Gastrointestinal/Abdomen Exam: soft, No tenderness, No mass Back Exam: normal inspection, normal range of motion, No CVA tenderness, No vertebral tenderness Extremity Exam: normal inspection, normal range of motion, pelvis stable Neurologic Exam: alert, oriented x 3, cooperative, normal mood/affect, nml cerebellar function, sensation nml, No motor deficits Skin Exam: normal color, warm, dry SpO2: 97 - Course Nursing assessment & vital signs reviewed: Yes Ordered Tests: Active Orders 24 hr Category Date Time Status AMYLASE Stat Lab 09/26/19 11:45 Completed CBC W DIFF Stat Lab 09/26/19 11:45 Completed CMP Stat Lab 09/26/19 11:45 Completed LIPASE Stat Lab 09/26/19 11:45 Completed Lactic Acid Stat Lab 09/26/19 10:41 Completed UA W/RFX UR CULTURE Stat Lab 09/26/19 10:42 Uncollected Urine Triage Profile Stat Lab 09/26/19 10:42 Uncollected Medication Summary Discontinued Medications Generic Name Dose Route Start Last Admin Trade Name Freq PRN Reason Stop Dose Admin Sodium Chloride 1,000 mls @ 999 mls/hr 09/26/19 10:41 09/26/19 11:43 Sodium Chloride 0.9% 1000 Ml IV 09/26/19 11:41 Not Given .Q1H1M STA Sodium Chloride Confirm 09/26/19 10:49 Sodium Chloride 0.9% 1000 Ml Administered 09/26/19 10:50 Dose 1,000 mls @ ud .ROUTE .STK-MED ONE Ondansetron HCl 4 mg 09/26/19 10:41 09/26/19 11:32 Zofran 4 Mg/2 Ml Vial IV 09/26/19 10:42 4 mg STAT ONE Administration Ondansetron HCl Confirm 09/26/19 10:49 Zofran 4 Mg/2 Ml Vial Administered 09/26/19 10:50 Dose 4 mg .ROUTE .STK-MED ONE Pantoprazole Sodium 40 mg 09/26/19 10:41 09/26/19 11:41 Protonix 40 Mg Iv IV 09/26/19 10:42 Not Given STAT ONE Pantoprazole Sodium Confirm 09/26/19 10:49 Protonix 40 Mg Iv Administered 09/26/19 10:50 Dose 40 mg IV .STK-MED ONE Lab/Rad Data: Laboratory Result Diagrams 09/26/19 11:45 09/26/19 11:45 Laboratory Results 09/26/19 09/26/19 09/26/19 Range/Units 11:45 11:45 10:41 WBC 8.0 (4.0-10.5) K/mm3 RBC 4.75 (4.1-5.6) M/mm3 Hgb 13.7 (12.5-18.0) gm/dl Hct 38.7 L (42-50) % MCV 81.5 (78-100) fl MCH 28.8 (26-32) pg MCHC 35.4 (32-36) g/dl RDW 12.3 (11.5-14.0) % Plt Count 351 (150-450) K/mm3 MPV 8.7 (7.5-11.0) fl Gran % 75.7 H (36.0-66.0) % Eos # (Auto) 0.33 (0-0.5) Absolute Lymphs (auto) 0.79 L (1.0-4.6) Absolute Monos (auto) 0.79 (0.0-1.3) Lymphocytes % 9.9 L (24.0-44.0) % Monocytes % 9.9 (0.0-12.0) % Eosinophils % 4.1 (0.00-5.0) % Basophils % 0.4 (0.0-0.4) % Absolute Granulocytes 6.05 (1.4-6.9) Basophils # 0.03 (0-0.4) Sodium 133 L (137-145) mmol/L Potassium 3.9 (3.5-5.1) mmol/L Chloride 96 L (98-107) mmol/L Carbon Dioxide 28 (22-30) mmol/L Anion Gap 13.4 (5-15) MEQ/L BUN 14 (9-20) mg/dL Creatinine 0.63 L (0.66-1.25) mg/dL Estimated GFR > 60.0 ML/MIN Glucose 239 H (74-106) mg/dL Lactic Acid 1.2 (0.4-2.0) Calcium 9.1 (8.4-10.2) mg/dL Total Bilirubin 0.60 (0.2-1.3) mg/dL AST 52 (17-59) U/L ALT 18 (0-50) U/L Alkaline Phosphatase 128 H (38-126) U/L Serum Total Protein 7.4 (6.3-8.2) g/dL Albumin 4.0 (3.5-5.0) g/dL Amylase 94 (30-110) U/L Lipase < 10 L (23-300) U/L - Progress Progress: improved Counseled pt/family regarding: lab results, diagnosis, need for follow-up - Departure Departure Disposition: Home Clinical Impression: Vomiting alone Abdominal pain Qualifiers: Abdominal location: epigastric Qualified Code(s): R10.13 - Epigastric pain Condition: Stable Critical Care Time: No Referrals: VALENTINA ESPINO [Primary Care Provider] - Instructions: Vomiting -- Adult Prescriptions: Ondansetron ODT 4 MG [Zofran Odt 4 mg] 4 mg PO Q6H PRN PRN #10 tab.rapdis PRN Reason: Nausea/Vomiting
[2019-09-26] MEDS ORDERED: PROTONIX 40 MG IV IV ONE (10:49)
[2019-09-26] MEDS ORDERED: Zofran 4 MG/2 ML VIAL ONE (10:49)
[2019-09-26] MEDS ORDERED: Sodium Chloride 0.9% 1000 ML 1,000 ML ONE (10:49)
[2019-09-26] MEDS: PROTONIX 40 MG IV IV ONE ×2 (11:32→11:41)
[2019-09-26] MEDS: Sodium Chloride 0.9% 1000 ML 1,000 ML IV STA ×2 (11:33→11:43)
[2019-09-26 12:17] LABS: Absolute Neutrophil Ct (ANC) 6.05 (1.4-6.9); BASOPHIL % 0.4 % (0.0-0.4); Basophil (Absolute #) 0.03 (0-0.4); Eosinophil % 4.1 % (0.00-5.0); Eosinophil (Absolute #) 0.33 (0-0.5); Hematocrit 38.7 % (42-50); Hemoglobin 13.7 gm/dl (12.5-18.0); Lymphocyte (Absolute #) 0.79 (1.0-4.6); Lymphocytes % 9.9 % (24.0-44.0); Mean Cell Volume 81.5 fl (78-100); Mean Corpuscular Hemoglobin 28.8 pg (26-32); Mean Corpuscular Hgb Concent. 35.4 g/dl (32-36); Mean Platelet Volume 8.7 fl (7.5-11.0); Monocyte (Absolute #) 0.79 (0.0-1.3); Monocytes % 9.9 % (0.0-12.0); Neutrophil % 75.7 % (36.0-66.0); Platelet Count 351 K/mm3 (150-450); Red Blood Count 4.75 M/mm3 (4.1-5.6); Red Cell Distribution Width 12.3 % (11.5-14.0)
[2019-09-26 12:18] LABS: ALKALINE PHOSPHATASE 128 U/L (38-126); AMYLASE 94 U/L (30-110); ANION GAP 13.4 MEQ/L (5-15); BLOOD UREA NITROGEN 14 mg/dL (9-20); CHLORIDE 96 mmol/L (98-107); Calcium 9.1 mg/dL (8.4-10.2); Carbon Dioxide 28 mmol/L (22-30); Creatinine 1 0.63 mg/dL (0.66-1.25); Glucose 239 mg/dL (74-106); Potassium 3.9 mmol/L (3.5-5.1); SGOT/AST 52 U/L (17-59); SGPT/ALT 18 U/L (0-50); SODIUM 133 mmol/L (137-145); Total Protein 7.4 g/dL (6.3-8.2)
[2019-09-26 12:20] LABS: LIPASE < 10 U/L (23-300)
[2019-09-26 14:11] VITALS: BP 172/117; PULSE 70; O2SAT 98
[2019-09-26 14:19] LABS: Amourphous Crystal FEW /HPF (NEGATIVE); Appearance CLOUDY (CLEAR); Bacteria RARE /HPF (NEGATIVE); Bilirubin NEGATIVE (NEGATIVE); Blood NEGATIVE Ery/ul (0-5); Glucose >=500 mg/dL (NEGATIVE); Ketones TRACE (NEGATIVE); Leukocyte Esterase NEGATIVE (NEGATIVE); Mucus SLIGHT /HPF (NEGATIVE); Nitrite NEGATIVE (NEGATIVE); Protein,Urine Dip 100 (Negative); Urobilinogen NEGATIVE mg/dL (0-1)
[2019-09-26 14:22] LABS: Amphetamine,Urine NEGATIVE (NEGATIVE); Barbiturate,Urine NEGATIVE (NEGATIVE); Benzodiazepine,Urine NEGATIVE (NEGATIVE); Cocaine,Urine NEGATIVE (NEGATIVE); Methadone,Urine NEGATIVE (NEGATIVE); Opiate,Urine NEGATIVE (NEGATIVE); PCP,Urine NEGATIVE (NEGATIVE); THC,Urine POSITIVE (NEGATIVE)
== END 2019-09-26 14:11 | disposition home or self-care (01) ==
LOC: ED 10:13
DX: R11.10 Vomiting, unspecified (principal); R10.13 Epigastric pain
CPT/HCPCS: 36415; 80053; 80307; 81001; 82150; 83605; 83690; 85025; 96374; 96375; 99284; J2405

== ENCOUNTER 2020-03-27 19:05 | Emergency (ER) | payer OTHER ==
--- NOTE | 2020-03-27 19:24 | ERPHSYRPT ---
- History of Present Illness Time Seen by Provider: 03/27/20 19:24 Source: patient Exam Limitations: no limitations Physician History: This is a 34-year-old male who fell through a rotted piece of floor yesterday. He has bruising and swelling of his right foot and ankle. Patient has no known drug allergies. Method of Injury: fell Occurred: yesterday Quality: aching, throbbing Severity of Pain-Max: mild Severity of Pain-Current: mild Lower Extremities Pain: foot: right, ankle: right Modifying Factors: Improves With: movement Associated Symptoms: other (Patient is able to bear weight but it hurts to do so) Allergies/Adverse Reactions: No Known Drug Allergies Allergy (Verified 03/27/20 19:23) Hx Tetanus, Diphtheria Vaccination/Date Given: Yes Hx Influenza Vaccination/Date Given: No Hx Pneumococcal Vaccination/Date Given: No Travel Risk - International Travel Have you traveled outside of the country in past 3 weeks: No - Coronavirus Screening Are you exhibiting any of the following symptoms?: No Close contact with a COVID-19 positive Pt in past 14-21 Days: No - Review of Systems Constitutional: No Symptoms Eyes: No Symptoms Ears, Nose, & Throat: No Symptoms Respiratory: No Symptoms Cardiac: No Symptoms Abdominal/Gastrointestinal: No Symptoms Genitourinary Symptoms: No Symptoms Musculoskeletal: Fall, Injury (Right foot and ankle) Skin: No Symptoms Neurological: No Symptoms Psychological: No Symptoms Endocrine: No Symptoms Hematologic/Lymphatic: No Symptoms Immunological/Allergic: No Symptoms All Other Systems: Reviewed and Negative - Past Medical History Pertinent Past Medical History: Yes Neurological History: No Pertinent History ENT History: No Pertinent History Cardiac History: No Pertinent History Respiratory History: No Pertinent History Endocrine Medical History: Diabetes Type I Musculoskeletal History: No Pertinent History GI Medical History: No Pertinent History History: No Pertinent History Psycho-Social History: Anxiety, Depression Male Reproductive Disorders: No Pertinent History Other Medical History: DKA - Past Surgical History Past Surgical History: No Neuro Surgical History: No Pertinent History Cardiac: No Pertinent History Respiratory: No Pertinent History Gastrointestinal: No Pertinent History Genitourinary: No Pertinent History Musculoskeletal: No Pertinent History Male Surgical History: No Pertinent History Other Surgical History: . - Social History Smoking Status: Never smoker Exposure to second hand smoke: Yes Drug Use: marijuana, methamphetamines Patient Lives Alone: No - Nursing Vital Signs Nursing Vital Signs: Initial Vital Signs Temperature 98.6 F 08/09/20 19:24 Pulse Rate 117 H 03/27/20 19:24 Respiratory Rate 16 03/27/20 19:24 Blood Pressure 134/94 03/27/20 19:24 O2 Sat by Pulse Oximetry 100 03/27/20 19:24 Pain Scale Pain Intensity 8 - Physical Exam General Appearance: no apparent distress, alert Eyes, Ears, Nose, Throat Exam: normal ENT inspection, moist mucous membranes Neck Exam: normal inspection, non-tender, supple, full range of motion Cardiovascular/Respiratory Exam: chest non-tender Gastrointestinal/Abdominal Exam: non-tender Back Exam: normal inspection, normal range of motion, vertebral tenderness, No CVA tenderness Hips Exam: bilateral: non-tender, normal inspection, normal range of motion, no evidence of injury Legs Exam: bilateral leg: non-tender, normal inspection, normal range of motion, no evidence of injury Knees Exam: bilateral knee: non-tender, normal inspection, normal range of motion, no evidence of injury Ankle Exam: right ankle: ecchymosis, soft tissue tenderness, swelling, left ankle: non-tender, normal inspection, normal range of motion, no evidence of injury Foot Exam: right foot: ecchymosis, soft tissue tenderness, swelling, left foot: non-tender, normal inspection, normal range of motion, no evidence of injury Neuro/Tendon Exam: normal sensation, normal motor functions, normal tendon functions Mental Status Exam: alert, oriented x 3, cooperative Skin Exam: normal color, warm, dry SpO2 Interpretation: normal O2 Delivery: Room Air - Course Nursing assessment & vital signs reviewed: Yes Ordered Tests: Active Orders 24 hr Category Date Time Status Splint STAT Care 03/27/20 20:53 Ordered ANKLE (3 VIEWS) Stat Exams 03/27/20 19:41 Ordered FOOT (MINIMUM 3 VIEWS) Stat Exams 03/27/20 19:41 Ordered - Progress Progress: pain not gone completely, re-examined Progress Note: 03/27/20 20:50 X-ray of right foot reveals no evidence of any acute fracture or dislocation. X-ray of right ankle reveals ? Avulsion fracture of the distal fibula 03/27/20 20:54 Patient asked us to check his blood sugar. His blood sugar was 61. Will provide him with oral intake then recheck his blood sugar and when it is in a reasonable range of 80-120 we will discharge him to home. Counseled pt/family regarding: lab results, diagnosis, need for follow-up, rad results - Departure Departure Disposition: Home Clinical Impression: Avulsion fracture of ankle, Hypoglycemia Condition: Stable Critical Care Time: No Referrals: VALENTINA ESPINO [Primary Care Provider] - [facility] [id number] Additional Instructions: Use ankle brace for comfort. Ice pack to area 3 times a day for the next 48 hours. Add ibuprofen 600 mg orally with food 3 times a day for 4 days. Follow- up with the [facility] orthopedic clinic in 48 hours for reevaluation. Elevate the right lower extremity above level of heart when not ambulating. Weightbearing as tolerated. Monitor your blood sugar closely. Follow-up with your primary care physician for any blood sugar issues.
[2020-03-27] MEDS ORDERED: NORCO 5/325 MG PO ONE (20:56)
[2020-03-27] MEDS ORDERED: NORCO 5/325 MG ONE (21:03)
[2020-03-27 21:23] VITALS: BP 146/101; PULSE 106; O2SAT 99
--- NOTE | 2020-03-28 08:51 | XRAY ---
Exam: 3 view right ankle series from 03/27/2020. Comparison: None. Indication: Fall, history of old foreign body. Findings: AP, oblique, and lateral radiographs of the right ankle were obtained. There is a subtle curvilinear calcification adjacent to the inferior margin of the distal right fibula with overlying soft tissue swelling. This is consistent with a small cortical avulsion fracture injury from the distal right fibula. I see no other fracture involving the distal right tibia. The ankle mortise appears unremarkable. Incidentally, there is a 4.5 mm round metallic density projected over the plantar aspect of the right midfoot adjacent to the fifth metatarsal which likely represents the patient's reported old foreign body. Incidentally, I see some faint atherosclerotic vascular calcification in this 34-year-old male. Correlate clinically regarding diabetes. Impression: 1. Curvilinear cortical avulsion fracture injury arising from the inferior margin of distal right fibula with about 2 mm diastasis. Moderate soft tissue swelling is seen overlying the lateral malleolus. 2. 4.5 mm round metallic soft tissue foreign body is seen along the plantar aspect of the right midfoot adjacent to the fifth metatarsal. Apparently, this is due to an old injury. Correlate clinically. 3. Mild atherosclerotic vascular calcification is seen in this 34-year-old male. Correlate clinically regarding diabetes.
--- NOTE | 2020-03-28 08:59 | XRAY ---
Exam: 3 view right foot series from 03/27/2020. Comparison: None. Indication: Fall, history of old foreign body. Findings: AP, oblique, and lateral radiographs of the right foot were obtained. I see no acute right foot fracture or dislocation. I again note a 4.5 mm round metallic foreign body projected over the plantar lateral aspect of the right midfoot adjacent to the fifth metatarsal. Correlate with prior traumatic history. The joint spaces appear unremarkable. Some atherosclerotic vascular calcification is seen in this 34-year-old male. Correlate clinically regarding diabetes. Impression: 1. No acute right foot fracture or dislocation is seen. 2. A 4.5 mm round metallic soft tissue foreign body is seen within the plantar lateral aspect of the right foot adjacent to the middle third of the fifth metatarsal shaft. Correlate with past traumatic history. 3. Atherosclerotic vascular calcification is seen in this 34-year-old male which is unusual. Correlate clinically regarding diabetes mellitus.
== END 2020-03-27 21:35 | disposition home or self-care (01) ==
LOC: ED 19:05
DX: S92.151 Displaced avulsion fracture (chip fracture) of right talus (principal)
CPT/HCPCS: 73610; 73630; 82962; 99284; A9270-GY

== ENCOUNTER 2020-09-30 15:48 | Emergency (ER) | payer OTHER ==
[2020-09-30 15:58] VITALS: O2SAT 99
--- NOTE | 2020-09-30 16:04 | ERPHSYRPT ---
- History of Present Illness Time Seen by Provider: 09/30/20 16:04 Source: patient Exam Limitations: no limitations Patient Subjective Stated Complaint: pt here for lower leg rash for a week now, no pain he states it itches, Triage Nursing Assessment: pt alert, face mask in place, resp easy, skin w/d/p , has reddeness to lower legs, no swelling Physician History: This is an insulin-dependent diabetic who also admits to being an abuser of illicit drugs. Most recently, approximately 2 weeks ago he used methamphetamin es. Patient has history of recurrent DKA. He is poorly compliant. He presents today much more awake and alert than a typical for him and with the complaint of 1 week history of bilateral lower extremity leg rash with mild feet and ankle swelling that itches. He did not check his blood sugar today and just estimated that his blood sugar was elevated and took his insulin dose. He denies shortne ss of breath. He denies chest pain. Method of Injury: other (No injury) Occurred: last week Severity of Pain-Max: none Severity of Pain-Current: none Modifying Factors: Improves With: nothing Associated Symptoms: none Allergies/Adverse Reactions: No Known Drug Allergies Allergy (Verified 09/30/20 15:59) Hx Tetanus, Diphtheria Vaccination/Date Given: Yes Hx Influenza Vaccination/Date Given: No Hx Pneumococcal Vaccination/Date Given: No Immunizations Up to Date: Yes Travel Risk - International Travel Have you traveled outside of the country in past 3 weeks: No - Coronavirus Screening Are you exhibiting any of the following symptoms?: No Close contact with a COVID-19 positive Pt in past 14-21 Days: No - Review of Systems Constitutional: No Symptoms Eyes: No Symptoms Ears, Nose, & Throat: No Symptoms Respiratory: No Symptoms Cardiac: No Symptoms Abdominal/Gastrointestinal: No Symptoms Genitourinary Symptoms: No Symptoms Musculoskeletal: No Symptoms Skin: Rash (Bilateral lower extremity fine pink rash from approximately the distal third tibia onto the dorsal aspect of his feet bilaterally) Neurological: No Symptoms Psychological: No Symptoms Endocrine: No Symptoms Hematologic/Lymphatic: No Symptoms Immunological/Allergic: No Symptoms All Other Systems: Reviewed and Negative - Past Medical History Pertinent Past Medical History: Yes Neurological History: No Pertinent History ENT History: No Pertinent History Cardiac History: No Pertinent History Respiratory History: No Pertinent History Endocrine Medical History: Diabetes Type I Musculoskeletal History: No Pertinent History GI Medical History: No Pertinent History History: No Pertinent History Psycho-Social History: Anxiety, Depression Male Reproductive Disorders: No Pertinent History Other Medical History: DKA - Past Surgical History Past Surgical History: No Neuro Surgical History: No Pertinent History Cardiac: No Pertinent History Respiratory: No Pertinent History Gastrointestinal: No Pertinent History Genitourinary: No Pertinent History Musculoskeletal: No Pertinent History Male Surgical History: No Pertinent History Other Surgical History: . - Social History Smoking Status: Never smoker Exposure to second hand smoke: No Drug Use: marijuana, methamphetamines Patient Lives Alone: No - Nursing Vital Signs Nursing Vital Signs: Initial Vital Signs Temperature 97.7 F 09/30/20 15:54 Pulse Rate 100 H 09/30/20 15:54 Respiratory Rate 18 09/30/20 15:54 Blood Pressure 160/113 09/30/20 15:54 O2 Sat by Pulse Oximetry 99 09/30/20 15:54 Pain Scale Pain Intensity 0 - Physical Exam General Appearance: no apparent distress, alert, anxiety Eyes, Ears, Nose, Throat Exam: normal ENT inspection, moist mucous membranes Neck Exam: normal inspection, non-tender, supple, full range of motion Cardiovascular/Respiratory Exam: chest non-tender, normal breath sounds, regular rate/rhythm, heart sounds normal, no respiratory distress Gastrointestinal/Abdominal Exam: non-tender, soft Back Exam: normal inspection, normal range of motion, No CVA tenderness, No vertebral tenderness Hips Exam: bilateral: non-tender, normal inspection, normal range of motion, no evidence of injury Knees Exam: bilateral knee: non-tender, normal inspection, normal range of motion, no evidence of injury Ankle Exam: bilateral ankle: non-tender, normal inspection, normal range of motion, no evidence of injury, swelling, other (Fine pink rash) Foot Exam: bilateral foot: non-tender, normal inspection, normal range of motion, no evidence of injury, swelling (Primarily dorsal aspect), other (Fine, slightly raised pink rash primarily dorsal aspect) Neuro/Tendon Exam: normal sensation Mental Status Exam: alert, oriented x 3, cooperative Skin Exam: normal color, warm, rash SpO2 Interpretation: normal SpO2: 99 O2 Delivery: Room Air - Course Nursing assessment & vital signs reviewed: Yes Ordered Tests: Active Orders 24 hr Category Date Time Status Clean Catch Urine Specimen STAT Care 09/30/20 16:17 Active IV Insertion STAT Care 09/30/20 16:16 Active POCT Glucose Check STAT Care 09/30/20 16:16 Active Pulse Oximetry (ED) STAT Care 09/30/20 16:16 Active BLOOD CULTURE Stat Lab 09/30/20 16:40 Received CBC W DIFF Stat Lab 09/30/20 16:30 Completed CMP Stat Lab 09/30/20 16:30 Completed ETHYL ALCOHOL Stat Lab 09/30/20 16:30 Completed Lactic Acid Urgent Lab 09/30/20 16:16 Completed MAGNESIUM Stat Lab 09/30/20 16:30 Completed POCT GLUCOSE Stat Lab 09/30/20 16:27 Completed PT INR [PROTIME WITH INR] Stat Lab 09/30/20 16:30 Completed UA W/RFX UR CULTURE Stat Lab 09/30/20 16:27 Completed Urine Triage Profile Stat Lab 09/30/20 16:36 Completed Medication Summary Generic Name Dose Route Start Last Admin Trade Name Freq PRN Reason Stop Dose Admin Sodium Chloride 1,000 mls @ 999 mls/hr 09/30/20 17:50 09/30/20 17:58 Sodium Chloride 0.9% 1000 Ml IV 09/30/20 18:50 999 mls/hr .Q1H1M STA Administration Discontinued Medications Generic Name Dose Route Start Last Admin Trade Name Freq PRN Reason Stop Dose Admin Sodium Chloride 1,000 mls @ 999 mls/hr 09/30/20 16:16 09/30/20 17:46 Sodium Chloride 0.9% 1000 Ml IV 09/30/20 17:16 Infused .Q1H1M STA Infusion Sodium Chloride Confirm 09/30/20 16:31 Sodium Chloride 0.9% 1000 Ml Administered 09/30/20 16:32 Dose 1,000 mls @ ud .ROUTE .STK-MED ONE Sodium Chloride Confirm 09/30/20 17:56 Sodium Chloride 0.9% 1000 Ml Administered 09/30/20 17:57 Dose 1,000 mls @ ud .ROUTE .STK-MED ONE Ondansetron HCl 4 mg 09/30/20 16:39 09/30/20 16:40 Zofran 4 Mg/2 Ml Vial IV 09/30/20 16:40 4 mg STAT ONE Administration Ondansetron HCl Confirm 09/30/20 16:39 Zofran 4 Mg/2 Ml Vial Administered 09/30/20 16:40 Dose 4 mg .ROUTE .STK-MED ONE Lab/Rad Data: Laboratory Result Diagrams 09/30/20 16:30 09/30/20 16:30 Laboratory Results 09/30/20 09/30/20 09/30/20 Range/Units 16:36 16:30 16:30 WBC (4.0-10.5) K/mm3 RBC (4.1-5.6) M/mm3 Hgb (12.5-18.0) gm/dl Hct (42-50) % MCV (78-100) fl MCH (26-32) pg MCHC (32-36) g/dl RDW (11.5-14.0) % Plt Count (150-450) K/mm3 MPV (7.5-11.0) fl Gran % (36.0-66.0) % Eos # (Auto) (0-0.5) Absolute Lymphs (auto) (1.0-4.6) Absolute Monos (auto) (0.0-1.3) Lymphocytes % (24.0-44.0) % Monocytes % (0.0-12.0) % Eosinophils % (0.00-5.0) % Basophils % (0.0-0.4) % Absolute Granulocytes (1.4-6.9) Basophils # (0-0.4) PT 10.1 (8.83-12.87) SECONDS INR 0.89 (0.8-3.0) Sodium 127 L (137-145) mmol/L Potassium 4.4 (3.5-5.1) mmol/L Chloride 92 L (98-107) mmol/L Carbon Dioxide 29 (22-30) mmol/L Anion Gap 10.1 (5-15) MEQ/L BUN 29 H (9-20) mg/dL Creatinine 0.97 (0.66-1.25) mg/dL Estimated GFR > 60.0 ML/MIN Glucose 298 H (74-106) mg/dL POC Glucometer (74 to 106) mg/dL Lactic Acid (0.4-2.0) Calcium 8.9 (8.4-10.2) mg/dL Magnesium 1.7 (1.6-2.3) mg/dL Total Bilirubin 0.20 (0.2-1.3) mg/dL AST 49 (17-59) U/L ALT 47 (0-50) U/L Alkaline Phosphatase 218 H (38-126) U/L Serum Total Protein 6.6 (6.3-8.2) g/dL Albumin 3.4 L (3.5-5.0) g/dL Urine Color (YELLOW) Urine Appearance (CLEAR) Urine pH (5-6) Ur Specific [place] (1.005-1.025) Urine Protein (Negative) Urine Ketones (NEGATIVE) Urine Blood (0-5) Tomas/ul Urine Nitrite (NEGATIVE) Urine Bilirubin (NEGATIVE) Urine Urobilinogen (0-1) mg/dL Ur Leukocyte Esterase (NEGATIVE) Urine WBC (Auto) (0-5) /HPF Urine RBC (Auto) (0-2) /HPF U Epithel Cells (Auto) (FEW) /HPF Urine Bacteria (Auto) (NEGATIVE) /HPF Urine Culture Reflexed (NO) Urine Glucose (NEGATIVE) mg/dL Urine Opiates Level NEGATIVE (NEGATIVE) Ur Methadone NEGATIVE (NEGATIVE) Urine Barbiturates NEGATIVE (NEGATIVE) Ur Phencyclidine (PCP) NEGATIVE (NEGATIVE) Urine Amphetamine NEGATIVE (NEGATIVE) U Benzodiazepine Level NEGATIVE (NEGATIVE) Urine Cocaine NEGATIVE (NEGATIVE) Urine Marijuana (THC) NEGATIVE (NEGATIVE) Ethyl Alcohol < 10 (0-10) mg/dL 09/30/20 09/30/20 09/30/20 Range/Units 16:30 16:27 16:27 WBC 7.3 (4.0-10.5) K/mm3 RBC 3.96 L (4.1-5.6) M/mm3 Hgb 11.6 L (12.5-18.0) gm/dl Hct 35.0 L (42-50) % MCV 88.4 (78-100) fl MCH 29.3 (26-32) pg MCHC 33.1 (32-36) g/dl RDW 12.4 (11.5-14.0) % Plt Count 387 (150-450) K/mm3 MPV 8.2 (7.5-11.0) fl Gran % 72.7 H (36.0-66.0) % Eos # (Auto) 0.34 (0-0.5) Absolute Lymphs (auto) 0.90 L (1.0-4.6) Absolute Monos (auto) 0.74 (0.0-1.3) Lymphocytes % 12.3 L (24.0-44.0) % Monocytes % 10.1 (0.0-12.0) % Eosinophils % 4.6 (0.00-5.0) % Basophils % 0.3 (0.0-0.4) % Absolute Granulocytes 5.34 (1.4-6.9) Basophils # 0.02 (0-0.4) PT (8.83-12.87) SECONDS INR (0.8-3.0) Sodium (137-145) mmol/L Potassium (3.5-5.1) mmol/L Chloride (98-107) mmol/L Carbon Dioxide (22-30) mmol/L Anion Gap (5-15) MEQ/L BUN (9-20) mg/dL Creatinine (0.66-1.25) mg/dL Estimated GFR ML/MIN Glucose (74-106) mg/dL POC Glucometer 260 H (74 to 106) mg/dL Lactic Acid (0.4-2.0) Calcium (8.4-10.2) mg/dL Magnesium (1.6-2.3) mg/dL Total Bilirubin (0.2-1.3) mg/dL AST (17-59) U/L ALT (0-50) U/L Alkaline Phosphatase (38-126) U/L Serum Total Protein (6.3-8.2) g/dL Albumin (3.5-5.0) g/dL Urine Color YELLOW (YELLOW) Urine Appearance CLEAR (CLEAR) Urine pH 7.0 (5-6) Ur Specific [place] 1.018 (1.005-1.025) Urine Protein 100 (Negative) Urine Ketones NEGATIVE (NEGATIVE) Urine Blood SMALL (0-5) Tomas/ul Urine Nitrite NEGATIVE (NEGATIVE) Urine Bilirubin NEGATIVE (NEGATIVE) Urine Urobilinogen NEGATIVE (0-1) mg/dL Ur Leukocyte Esterase NEGATIVE (NEGATIVE) Urine WBC (Auto) NONE (0-5) /HPF Urine RBC (Auto) 3-5 (0-2) /HPF U Epithel Cells (Auto) NONE (FEW) /HPF Urine Bacteria (Auto) NONE (NEGATIVE) /HPF Urine Culture Reflexed NO (NO) Urine Glucose >=500 (NEGATIVE) mg/dL Urine Opiates Level (NEGATIVE) Ur Methadone (NEGATIVE) Urine Barbiturates (NEGATIVE) Ur Phencyclidine (PCP) (NEGATIVE) Urine Amphetamine (NEGATIVE) U Benzodiazepine Level (NEGATIVE) Urine Cocaine (NEGATIVE) Urine Marijuana (THC) (NEGATIVE) Ethyl Alcohol (0-10) mg/dL 09/30/20 Range/Units 16:16 WBC (4.0-10.5) K/mm3 RBC (4.1-5.6) M/mm3 Hgb (12.5-18.0) gm/dl Hct (42-50) % MCV (78-100) fl MCH (26-32) pg MCHC (32-36) g/dl RDW (11.5-14.0) % Plt Count (150-450) K/mm3 MPV (7.5-11.0) fl Gran % (36.0-66.0) % Eos # (Auto) (0-0.5) Absolute Lymphs (auto) (1.0-4.6) Absolute Monos (auto) (0.0-1.3) Lymphocytes % (24.0-44.0) % Monocytes % (0.0-12.0) % Eosinophils % (0.00-5.0) % Basophils % (0.0-0.4) % Absolute Granulocytes (1.4-6.9) Basophils # (0-0.4) PT (8.83-12.87) SECONDS INR (0.8-3.0) Sodium (137-145) mmol/L Potassium (3.5-5.1) mmol/L Chloride (98-107) mmol/L Carbon Dioxide (22-30) mmol/L Anion Gap (5-15) MEQ/L BUN (9-20) mg/dL Creatinine (0.66-1.25) mg/dL Estimated GFR ML/MIN Glucose (74-106) mg/dL POC Glucometer (74 to 106) mg/dL Lactic Acid 3.0 H (0.4-2.0) Calcium (8.4-10.2) mg/dL Magnesium (1.6-2.3) mg/dL Total Bilirubin (0.2-1.3) mg/dL AST (17-59) U/L ALT (0-50) U/L Alkaline Phosphatase (38-126) U/L Serum Total Protein (6.3-8.2) g/dL Albumin (3.5-5.0) g/dL Urine Color (YELLOW) Urine Appearance (CLEAR) Urine pH (5-6) Ur Specific [place] (1.005-1.025) Urine Protein (Negative) Urine Ketones (NEGATIVE) Urine Blood (0-5) Tomas/ul Urine Nitrite (NEGATIVE) Urine Bilirubin (NEGATIVE) Urine Urobilinogen (0-1) mg/dL Ur Leukocyte Esterase (NEGATIVE) Urine WBC (Auto) (0-5) /HPF Urine RBC (Auto) (0-2) /HPF U Epithel Cells (Auto) (FEW) /HPF Urine Bacteria (Auto) (NEGATIVE) /HPF Urine Culture Reflexed (NO) Urine Glucose (NEGATIVE) mg/dL Urine Opiates Level (NEGATIVE) Ur Methadone (NEGATIVE) Urine Barbiturates (NEGATIVE) Ur Phencyclidine (PCP) (NEGATIVE) Urine Amphetamine (NEGATIVE) U Benzodiazepine Level (NEGATIVE) Urine Cocaine (NEGATIVE) Urine Marijuana (THC) (NEGATIVE) Ethyl Alcohol (0-10) mg/dL - Progress Progress Note: 09/30/20 18:11 Medical decision making: This patient has mild hyponatremia and does not appear to be symptomatic. 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 I did review the patient's physical findings, condition and results of his laboratory work-up with Dr. Mendoza. She states that the patient is safe enough to go home. He is to use sugar-free Gatorade for fluid replacement. She also wants him to use Lotrisone cream to his bilateral lower extremities. He is also to follow-up in her office on October 03, 2020 at 11 AM. Discussed with : Echo Counseled pt/family regarding: lab results, diagnosis, need for follow-up, rad results - Departure Departure Disposition: Home Clinical Impression: Hyponatremia, Diabetic dermopathy Condition: Stable Critical Care Time: No Referrals: VALENTINA MAXWELL [Primary Care Provider] - Additional Instructions: Take your medications as prescribed. Monitor your blood sugar closely and treat accordingly. Keep your lower extremities clean and moist. Apply the Lotrisone cream as directed. Follow-up with Dr. Mendoza, who is covering for Dr. Maxwell, on Saturday, October 03, 2020 at 11 AM. Prescriptions: Clotrimazole/Betamet Diprop [Lotrisone 45 Gm Cream] 45 gm TP BID #1 tube
[2020-09-30] MEDS ORDERED: Sodium Chloride 0.9% 1000 ML 1,000 ML IV STA ×2 (16:16→17:50)
[2020-09-30] MEDS ORDERED: Sodium Chloride 0.9% 1000 ML 1,000 ML ONE ×2 (16:31→17:56)
[2020-09-30] MEDS ORDERED: Zofran 4 MG/2 ML VIAL IV ONE (16:39)
[2020-09-30] MEDS ORDERED: Zofran 4 MG/2 ML VIAL ONE (16:39)
[2020-09-30 16:46] LABS: Absolute Neutrophil Ct (ANC) 5.34 (1.4-6.9); BASOPHIL % 0.3 % (0.0-0.4); Basophil (Absolute #) 0.02 (0-0.4); Eosinophil % 4.6 % (0.00-5.0); Eosinophil (Absolute #) 0.34 (0-0.5); Hemoglobin 11.6 gm/dl (12.5-18.0); Lymphocytes % 12.3 % (24.0-44.0); Mean Cell Volume 88.4 fl (78-100); Mean Corpuscular Hemoglobin 29.3 pg (26-32); Mean Corpuscular Hgb Concent. 33.1 g/dl (32-36); Mean Platelet Volume 8.2 fl (7.5-11.0); Monocyte (Absolute #) 0.74 (0.0-1.3); Monocytes % 10.1 % (0.0-12.0); Neutrophil % 72.7 % (36.0-66.0); Platelet Count 387 K/mm3 (150-450); Red Blood Count 3.96 M/mm3 (4.1-5.6); Red Cell Distribution Width 12.4 % (11.5-14.0); White Blood Count 7.3 K/mm3 (4.0-10.5)
[2020-09-30 16:52] LABS: INR 0.89 (0.8-3.0); PROTIME 10.1 SECONDS (8.83-12.87)
[2020-09-30 16:52] LABS: Appearance CLEAR (CLEAR); Bilirubin NEGATIVE (NEGATIVE); Blood SMALL Ery/ul (0-5); Glucose >=500 mg/dL (NEGATIVE); Ketones NEGATIVE (NEGATIVE); Leukocyte Esterase NEGATIVE (NEGATIVE); Nitrite NEGATIVE (NEGATIVE); Protein,Urine Dip 100 (Negative); Specific Gravity 1.018 (1.005-1.025); Urobilinogen NEGATIVE mg/dL (0-1)
[2020-09-30 16:58] LABS: ALBUMIN 3.4 g/dL (3.5-5.0); ALKALINE PHOSPHATASE 218 U/L (38-126); ANION GAP 10.1 MEQ/L (5-15); BLOOD UREA NITROGEN 29 mg/dL (9-20); CHLORIDE 92 mmol/L (98-107); Calcium 8.9 mg/dL (8.4-10.2); Carbon Dioxide 29 mmol/L (22-30); Creatinine 1 0.97 mg/dL (0.66-1.25); EST GLOMERULAR FILTRATION RATE > 60.0 ML/MIN; ETHYL ALCOHOL < 10 mg/dL (0-10); Glucose 298 mg/dL (74-106); MAGNESIUM 1.7 mg/dL (1.6-2.3); Potassium 4.4 mmol/L (3.5-5.1); SGOT/AST 49 U/L (17-59); SGPT/ALT 47 U/L (0-50); SODIUM 127 mmol/L (137-145); Total Protein 6.6 g/dL (6.3-8.2)
[2020-09-30 17:11] LABS: Amphetamine,Urine NEGATIVE (NEGATIVE); Barbiturate,Urine NEGATIVE (NEGATIVE); Benzodiazepine,Urine NEGATIVE (NEGATIVE); Cocaine,Urine NEGATIVE (NEGATIVE); Methadone,Urine NEGATIVE (NEGATIVE); Opiate,Urine NEGATIVE (NEGATIVE); PCP,Urine NEGATIVE (NEGATIVE); THC,Urine NEGATIVE (NEGATIVE)
[2020-09-30 18:54] VITALS: BP 176/102; PULSE 80
== END 2020-09-30 18:59 | disposition home or self-care (01) ==
LOC: ED 15:48
DX: R21 Rash and other nonspecific skin eruption (principal); E10.21 Type 1 diabetes mellitus with diabetic nephropathy; L90.8 Other atrophic disorders of skin; E87.1 Hypo-osmolality and hyponatremia; M25.472 Effusion, left ankle; M25.471 Effusion, right ankle; F15.90 Other stimulant use, unspecified, uncomplicated
CPT/HCPCS: 36000; 36415; 80053; 80307; 81001; 82947; 83605; 83735; 85025; 85610; 87040; 94760; 96374; 99284; G0480; J2405

== ENCOUNTER 2020-10-18 14:08 | Emergency (ER) | payer OTHER ==
[2020-10-18] MEDS ORDERED: Sodium Chloride 0.9% 1000 ML 1,000 ML IV STA ×2 (14:20→14:37)
[2020-10-18] MEDS ORDERED: Zofran 4 MG/2 ML VIAL IV ONE (14:20)
[2020-10-18] MEDS ORDERED: Zofran 4 MG/2 ML VIAL ONE (14:21)
[2020-10-18] MEDS ORDERED: Sodium Chloride 0.9% 1000 ML 1,000 ML ONE ×2 (14:21→14:51)
[2020-10-18] MEDS ORDERED: PROTONIX 40 MG IV IV ONE ×2 (14:37→14:45)
[2020-10-18] MEDS ORDERED: Inapsine 5 MG/2 ML IV ONE (14:37)
[2020-10-18] MEDS ORDERED: MORPHINE SULFATE 4 MG INJ IV ONE (14:37)
[2020-10-18] MEDS ORDERED: Inapsine 5 MG/2 ML ONE (14:45)
[2020-10-18] MEDS ORDERED: MORPHINE SULFATE 4 MG INJ ONE (14:46)
[2020-10-18 14:49] LABS: BASOPHIL % 0.3 % (0.0-0.4); Basophil (Absolute #) 0.03 (0-0.4); Eosinophil % 2.6 % (0.00-5.0); Eosinophil (Absolute #) 0.25 (0-0.5); Hematocrit 40.9 % (42-50); Hemoglobin 13.6 gm/dl (12.5-18.0); Lymphocyte (Absolute #) 1.21 (1.0-4.6); Lymphocytes % 12.8 % (24.0-44.0); Mean Cell Volume 88.5 fl (78-100); Mean Corpuscular Hemoglobin 29.4 pg (26-32); Mean Corpuscular Hgb Concent. 33.3 g/dl (32-36); Mean Platelet Volume 8.3 fl (7.5-11.0); Monocyte (Absolute #) 1.09 (0.0-1.3); Monocytes % 11.5 % (0.0-12.0); Neutrophil % 72.8 % (36.0-66.0); Platelet Count 647 K/mm3 (150-450); Red Blood Count 4.62 M/mm3 (4.1-5.6); Red Cell Distribution Width 13.1 % (11.5-14.0); White Blood Count 9.5 K/mm3 (4.0-10.5)
[2020-10-18 14:53] LABS: VBG CARBOXYHEMOGLOBIN 3.8 % T HGB (0.0-6.9); VBG HCO3- 43.4 meq/L (22-28); VBG HEMOGLOBIN 13.9; VBG POTASSIUM 3.5 (3.5-5.1); VBG pH 7.49 (7.32-7.42)
[2020-10-18 14:55] LABS: ALBUMIN 4.1 g/dL (3.5-5.0); ANION GAP 11.9 MEQ/L (5-15); BILIRUBIN,TOTAL 0.9 mg/dL (0.2-1.3); Calcium 11.5 mg/dL (8.4-10.2); Creatinine 1 1.43 mg/dL (0.66-1.25); EST GLOMERULAR FILTRATION RATE 59.8 ML/MIN; Potassium 3.6 mmol/L (3.5-5.1); Total Protein 7.8 g/dL (6.3-8.2)
--- NOTE | 2020-10-18 15:03 | ERPHSYRPT ---
- History of Present Illness Time Seen by Provider: 10/18/20 14:21 Historian: patient Exam Limitations: no limitations Patient Subjective Stated Complaint: Vomiting Triage Nursing Assessment: Patient brought back to ED via w/c and transferred self to bed. Patient A+O X3. Patient's skin pink, warm and dry. Patient complains of vomiting and abdominal pain for 3 days. Patient relapsed on Meth by smoking it 3 days ago after being clean for 1 1/2 months. Patient states he has been having pain and vomiting since. Abdomen soft and round with BS X 4. Patient complains of sharp pain 8/10 to abdomen. Physician History: 35 years old male with history of type 1 diabetes mellitus, drug abuse was clean for month and relapsed 3 days ago with smoking marijuana and methamphetamine followed by generalized abdominal pain and multiple episodes of nonprojectile, nonbilious vomiting with no hematemesis. Patient is complaining of generalized abdominal pain but more in the upper abdomen with substernal burning sensation because of repeated vomiting. Patient described this as a moderate to severe intensity without any significant aggravating or relieving factors, continuous and no associated diarrhea, fever or chills. Patient report he is not able to hold much down and feels dehydrated weak and tired with no energy. Denies any known sick contact. Timing/Duration: day(s) (3), sudden, worse Activities at Onset: rest Quality: cramping Abdominal Pain Onset Location: generalized abdomen Pain Radiation: no radiation Severity of Pain-Max: severe Severity of Pain-Current: moderate Modifying Factors: Worsens With: movement, palpation Associated Symptoms: nausea, vomiting Allergies/Adverse Reactions: No Known Drug Allergies Allergy (Verified 10/18/20 14:10) Hx Tetanus, Diphtheria Vaccination/Date Given: Yes Hx Influenza Vaccination/Date Given: No Hx Pneumococcal Vaccination/Date Given: No Immunizations Up to Date: Yes Travel Risk - International Travel Have you traveled outside of the country in past 3 weeks: No - Coronavirus Screening Are you exhibiting any of the following symptoms?: No Symptoms: Vomiting/Diarrhea, Headaches/Body Aches/Fatigue Close contact with a COVID-19 positive Pt in past 14-21 Days: No - Review of Systems Constitutional: Fatigue, Weakness Eyes: No Symptoms Ears, Nose, & Throat: No Symptoms Respiratory: No Symptoms Cardiac: No Symptoms Abdominal/Gastrointestinal: Abdominal Pain, Nausea, Vomiting Genitourinary Symptoms: No Symptoms Musculoskeletal: No Symptoms Skin: No Symptoms Neurological: No Symptoms Psychological: No Symptoms Endocrine: No Symptoms Hematologic/Lymphatic: No Symptoms Immunological/Allergic: No Symptoms - Past Medical History Pertinent Past Medical History: Yes Neurological History: No Pertinent History ENT History: No Pertinent History Cardiac History: No Pertinent History Respiratory History: No Pertinent History Endocrine Medical History: Diabetes Type I Musculoskeletal History: No Pertinent History GI Medical History: No Pertinent History History: No Pertinent History Psycho-Social History: Anxiety, Depression Male Reproductive Disorders: No Pertinent History Other Medical History: DKA - Past Surgical History Past Surgical History: No Neuro Surgical History: No Pertinent History Cardiac: No Pertinent History Respiratory: No Pertinent History Gastrointestinal: No Pertinent History Genitourinary: No Pertinent History Musculoskeletal: No Pertinent History Male Surgical History: No Pertinent History Other Surgical History: . - Social History Smoking Status: Never smoker Exposure to second hand smoke: No Drug Use: marijuana, methamphetamines Patient Lives Alone: No - Nursing Vital Signs Nursing Vital Signs: Initial Vital Signs Temperature 97.7 F 10/18/20 14:14 Pulse Rate 115 H 10/18/20 14:14 Respiratory Rate 18 10/18/20 14:14 Blood Pressure 168/136 10/18/20 14:14 O2 Sat by Pulse Oximetry 99 10/18/20 14:14 Pain Scale Pain Intensity 5 - Physical Exam General Appearance: no apparent distress, alert Eye Exam: PERRL/EOMI, eyes nml inspection Ears, Nose, Throat Exam: normal ENT inspection, pharynx normal Neck Exam: normal inspection, non-tender, supple, full range of motion Respiratory Exam: normal breath sounds, lungs clear Cardiovascular Exam: normal heart sounds, tachycardia Gastrointestinal/Abdomen Exam: soft, normal bowel sounds, tenderness (Generalized) Back Exam: normal inspection, normal range of motion Extremity Exam: normal inspection, normal range of motion, pelvis stable Neurologic Exam: alert, oriented x 3, cooperative, watershed engineer II-XII nml as tested Skin Exam: normal color SpO2 Interpretation: normal SpO2: 96 O2 Delivery: Room Air - Course EKG Interpreted by Me: RATE ([id number]), Sinus Tach, NORMAL AXIS, NORMAL INTERVALS, Other (Anterolateral T wave inversions) Ordered Tests: Active Orders 24 hr Category Date Time Status Historical Archeologist STAT Care 10/18/20 14:51 Active EKG-ER Only STAT Care 10/18/20 14:37 Active IV Insertion STAT Care 10/18/20 14:20 Active NPO (ED) STAT Care 10/18/20 14:37 Active POCT Glucose Check STAT Care 10/18/20 14:30 Active ABDOMEN AND PELVIS W CONTRAST [CT] Stat Exams 10/18/20 14:41 Completed AMYLASE Stat Lab 10/18/20 14:37 Completed CBC W DIFF Stat Lab 10/18/20 14:37 Completed CMP Stat Lab 10/18/20 14:37 Completed LIPASE Stat Lab 10/18/20 14:37 Completed Lactic Acid Stat Lab 10/18/20 14:37 Completed TROPONIN Q3H Lab 10/18/20 14:20 Completed TROPONIN Q3H Lab 10/18/20 17:45 Ordered TROPONIN Q3H Lab 10/18/20 20:45 Ordered TROPONIN Q3H Lab 10/18/20 23:45 Ordered TROPONIN Q3H Lab 10/19/20 02:45 Ordered UA W/RFX UR CULTURE Stat Lab 10/18/20 14:41 Ordered Urine Triage Profile Stat Lab 10/18/20 14:41 Ordered VENOUS BLOOD GAS Stat Lab 10/18/20 14:43 Completed Medication Summary Discontinued Medications Generic Name Dose Route Start Last Admin Trade Name Freq PRN Reason Stop Dose Admin Droperidol 1.25 mg 10/18/20 14:37 10/18/20 14:48 Inapsine 5 Mg/2 Ml IV 10/18/20 14:38 1.25 mg STAT ONE Administration Droperidol Confirm 10/18/20 14:45 Inapsine 5 Mg/2 Ml Administered 10/18/20 14:46 Dose 5 mg .ROUTE .STK-MED ONE Sodium Chloride 1,000 mls @ 999 mls/hr 10/18/20 14:20 10/18/20 15:32 Sodium Chloride 0.9% 1000 Ml IV 10/18/20 15:20 Infused .Q1H1M STA Infusion Sodium Chloride Confirm 10/18/20 14:21 Sodium Chloride 0.9% 1000 Ml Administered 10/18/20 14:22 Dose 1,000 mls @ ud .ROUTE .STK-MED ONE Sodium Chloride 1,000 mls @ 999 mls/hr 10/18/20 14:37 10/18/20 15:14 Sodium Chloride 0.9% 1000 Ml IV 10/18/20 15:37 999 mls/hr .Q1H1M STA Administration Sodium Chloride Confirm 10/18/20 14:51 Sodium Chloride 0.9% 1000 Ml Administered 10/18/20 14:52 Dose 1,000 mls @ ud .ROUTE .STK-MED ONE Morphine Sulfate 4 mg 10/18/20 14:37 10/18/20 14:48 Morphine Sulfate 4 Mg Inj IV 10/18/20 14:38 4 mg STAT ONE Administration Morphine Sulfate Confirm 10/18/20 14:46 Morphine Sulfate 4 Mg Inj Administered 10/18/20 14:47 Dose 4 mg .ROUTE .STK-MED ONE Ondansetron HCl 4 mg 10/18/20 14:20 10/18/20 14:23 Zofran 4 Mg/2 Ml Vial IV 10/18/20 14:21 4 mg STAT ONE Administration Ondansetron HCl Confirm 10/18/20 14:21 Zofran 4 Mg/2 Ml Vial Administered 10/18/20 14:22 Dose 4 mg .ROUTE .STK-MED ONE Pantoprazole Sodium 40 mg 10/18/20 14:37 10/18/20 14:48 Protonix 40 Mg Iv IV 10/18/20 14:38 40 mg STAT ONE Administration Pantoprazole Sodium Confirm 10/18/20 14:45 Protonix 40 Mg Iv Administered 10/18/20 14:46 Dose 40 mg IV .STK-MED ONE Lab/Rad Data: Laboratory Result Diagrams 10/18/20 14:37 10/18/20 14:37 Laboratory Results 10/18/20 10/18/20 10/18/20 Range/Units 14:43 14:37 14:37 WBC (4.0-10.5) K/mm3 RBC (4.1-5.6) M/mm3 Hgb (12.5-18.0) gm/dl Hct (42-50) % MCV (78-100) fl MCH (26-32) pg MCHC (32-36) g/dl RDW (11.5-14.0) % Plt Count (150-450) K/mm3 MPV (7.5-11.0) fl Gran % (36.0-66.0) % Eos # (Auto) (0-0.5) Absolute Lymphs (auto) (1.0-4.6) Absolute Monos (auto) (0.0-1.3) Lymphocytes % (24.0-44.0) % Monocytes % (0.0-12.0) % Eosinophils % (0.00-5.0) % Basophils % (0.0-0.4) % Absolute Granulocytes (1.4-6.9) Basophils # (0-0.4) pO2/FiO2 Ratio 21.0 % VBG pH 7.49 H (7.32-7.42) VBG pCO2 at Pat Temp 57 H (42-55) mm/Hg VBG pO2 at Pat Temp 21 L (25-40) mm/Hg VBG HCO3 43.4 H* (22-28) meq/L VBG O2 Sat (Jalen) 38.0 L (95-100) VBG Base Excess 17.0 H (-2.0-2.0) VBG Hemoglobin 13.9 VBG Carboxyhemoglobin 3.8 (0.0-6.9) % T HGB POC Potassium 3.5 (3.5-5.1) Sodium 132 L (137-145) mmol/L Potassium 3.6 (3.5-5.1) mmol/L Chloride 84 L (98-107) mmol/L Carbon Dioxide 39 H (22-30) mmol/L Anion Gap 11.9 (5-15) MEQ/L BUN 23 H (9-20) mg/dL Creatinine 1.43 H (0.66-1.25) mg/dL Estimated GFR 59.8 ML/MIN Glucose 203 H (74-106) mg/dL Lactic Acid 2.7 H (0.4-2.0) Calcium 11.5 H (8.4-10.2) mg/dL Total Bilirubin 0.90 (0.2-1.3) mg/dL AST 52 (17-59) U/L ALT 66 H (0-50) U/L Alkaline Phosphatase 228 H (38-126) U/L Troponin I (0.000-0.034) ng/mL Serum Total Protein 7.8 (6.3-8.2) g/dL Albumin 4.1 (3.5-5.0) g/dL Amylase 240 H (30-110) U/L Lipase 419 H (23-300) U/L 10/18/20 10/18/20 Range/Units 14:37 14:20 WBC 9.5 (4.0-10.5) K/mm3 RBC 4.62 (4.1-5.6) M/mm3 Hgb 13.6 (12.5-18.0) gm/dl Hct 40.9 L (42-50) % MCV 88.5 (78-100) fl MCH 29.4 (26-32) pg MCHC 33.3 (32-36) g/dl RDW 13.1 (11.5-14.0) % Plt Count 647 H (150-450) K/mm3 MPV 8.3 (7.5-11.0) fl Gran % 72.8 H (36.0-66.0) % Eos # (Auto) 0.25 (0-0.5) Absolute Lymphs (auto) 1.21 (1.0-4.6) Absolute Monos (auto) 1.09 (0.0-1.3) Lymphocytes % 12.8 L (24.0-44.0) % Monocytes % 11.5 (0.0-12.0) % Eosinophils % 2.6 (0.00-5.0) % Basophils % 0.3 (0.0-0.4) % Absolute Granulocytes 6.90 (1.4-6.9) Basophils # 0.03 (0-0.4) pO2/FiO2 Ratio % VBG pH (7.32-7.42) VBG pCO2 at Pat Temp (42-55) mm/Hg VBG pO2 at Pat Temp (25-40) mm/Hg VBG HCO3 (22-28) meq/L VBG O2 Sat (Jalen) (95-100) VBG Base Excess (-2.0-2.0) VBG Hemoglobin VBG Carboxyhemoglobin (0.0-6.9) % T HGB POC Potassium (3.5-5.1) Sodium (137-145) mmol/L Potassium (3.5-5.1) mmol/L Chloride (98-107) mmol/L Carbon Dioxide (22-30) mmol/L Anion Gap (5-15) MEQ/L BUN (9-20) mg/dL Creatinine (0.66-1.25) mg/dL Estimated GFR ML/MIN Glucose (74-106) mg/dL Lactic Acid (0.4-2.0) Calcium (8.4-10.2) mg/dL Total Bilirubin (0.2-1.3) mg/dL AST (17-59) U/L ALT (0-50) U/L Alkaline Phosphatase (38-126) U/L Troponin I 0.015 (0.000-0.034) ng/mL Serum Total Protein (6.3-8.2) g/dL Albumin (3.5-5.0) g/dL Amylase (30-110) U/L Lipase (23-300) U/L - Progress Progress: improved Progress Note: 10/18/20 15:39 35 years old with history of drug abuse with recent relapse presented with intractable vomiting and abdominal pain. He is given fluid bolus along with Zofran and morphine and Protonix, on reevaluation his symptoms are much improved but still have abdominal pain. Work-up showed normal white count and chemistries finding consistent with NINFA/dehydration. Patient has a lactate of 2.7, normal venous pH and anion gap. Not in DKA at this time but is definitely dehydrated because of his repeated vomiting. I have obtained CT abdomen pelvis with contrast which did not show any pancreatitis but has some elevation in lipase and amylase which I believe is secondary to repeated vomiting. I believe patient with benefit with IV hydration, n.p.o. and slow introduction of liquid to soft diet later during this stay. I have discussed with Dr. Maxwell and patient is accepted for admission. Plan discussed with patient who understand and agrees with it. Discussed with .: Hasmukh Will see patient in: hospital (observation) Counseled pt/family regarding: drug and/or alcohol abuse, lab results, diagnosis, rad results, smoking cessation - Departure Departure Disposition: Observation Clinical Impression: Illicit drug use, Intractable vomiting with nausea, Upper abdominal pain Diabetes mellitus type I Qualifiers: Diabetes mellitus complication status: with other specified complication Qualified Code(s): E10.69 - Type 1 diabetes mellitus with other specified compl ication Condition: Stable Critical Care Time: No Referrals: VALENTINA MAXWELL [Primary Care Provider] -
--- NOTE | 2020-10-18 15:24 | XRAY ---
Indication: Vomiting. Pancreatitis versus cholecystitis. Multiple contiguous axial images obtained through the abdomen and pelvis using 80 cc Isovue 370 contrast. Comparison: September 24, 2019. Lung bases demonstrates new 5 mm posterior right lower lobe subpleural noncalcified nodule probably granulomatous in the stenographic. No infiltrate or effusion. Heart is not enlarged. Noncontrasted stomach and bowel loops remain nonobstructed. Stable appendicolith without appendicitis. Again mild diffuse scattered colonic fecal debris, less than before. No free fluid/air. Remaining liver, gallbladder, pancreas, spleen, adrenal glands, kidneys, ureters, bladder, uterus, and aorta appear unremarkable. No pathologic retroperitoneal lymphadenopathy. Osseous structures intact again with bilateral L5 spondylolysis without spondylolisthesis. No ventral or inguinal hernias. Impression: 1. Again mild diffuse fecal stasis, appendicolith, and L5 spondylolysis without spondylolisthesis. 2. New 5 mm right lower lobe subpleural noncalcified nodule probably granulomatous. 3. Remaining CT abdomen/pelvis with contrast exam is negative.
[2020-10-18 16:32] LABS: INFLUENZA A NEGATIVE (NEGATIVE); INFLUENZA B NEGATIVE (NEGATIVE); RESPIRATORY SYNCTIAL VIRUS NEGATIVE (Negative)
[2020-10-18] MEDS ORDERED: TYLENOL 325 MG PO PRN (16:57)
[2020-10-18] MEDS: Sodium Chloride 0.9% 1000 ML 1,000 ML IV SCH ×2 (17:14→23:36)
[2020-10-18] MEDS: HUMALOG SQ PRN (21:00)
[2020-10-18 23:49] LABS: Amourphous Crystal FEW /HPF (NEGATIVE); Appearance SLIGHTLY CLOUDY (CLEAR); Bilirubin NEGATIVE (NEGATIVE); Blood NEGATIVE Ery/ul (0-5); Glucose >=500 mg/dL (NEGATIVE); Ketones SMALL (NEGATIVE); Leukocyte Esterase NEGATIVE (NEGATIVE); Mucus SLIGHT /HPF (NEGATIVE); Nitrite NEGATIVE (NEGATIVE); Protein,Urine Dip >=500 (Negative); RBC 0-2 /HPF (0-2); Specific Gravity 1.039 (1.005-1.025); Urobilinogen NEGATIVE mg/dL (0-1); WBC 0-2 /HPF (0-5)
[2020-10-18 23:57] LABS: Amphetamine,Urine POSITIVE (NEGATIVE); Barbiturate,Urine NEGATIVE (NEGATIVE); Benzodiazepine,Urine NEGATIVE (NEGATIVE); Cocaine,Urine NEGATIVE (NEGATIVE); Methadone,Urine NEGATIVE (NEGATIVE); Opiate,Urine POSITIVE (NEGATIVE); PCP,Urine NEGATIVE (NEGATIVE); THC,Urine NEGATIVE (NEGATIVE)
[2020-10-19] MEDS: Zofran 4 MG/2 ML VIAL IV PRN ×2 (02:48→23:44)
[2020-10-19] MEDS: MORPHINE SULFATE 2 MG INJ IV PRN (02:53)
[2020-10-19 03:48] LABS: ALBUMIN 3.1 g/dL (3.5-5.0); ALKALINE PHOSPHATASE 180 U/L (38-126); ANION GAP 9.4 MEQ/L (5-15); BLOOD UREA NITROGEN 20 mg/dL (9-20); CHLORIDE 95 mmol/L (98-107); Calcium 9.4 mg/dL (8.4-10.2); Carbon Dioxide 32 mmol/L (22-30); Creatinine 1 1.31 mg/dL (0.66-1.25); EST GLOMERULAR FILTRATION RATE > 60.0 ML/MIN; Glucose 158 mg/dL (74-106); Potassium 4.1 mmol/L (3.5-5.1); SGOT/AST 41 U/L (17-59); SGPT/ALT 49 U/L (0-50); SODIUM 133 mmol/L (137-145); Total Protein 5.8 g/dL (6.3-8.2)
[2020-10-19 03:56] LABS: BASOPHIL % 0.4 % (0.0-0.4); Basophil (Absolute #) 0.04 (0-0.4); Eosinophil % 5.6 % (0.00-5.0); Eosinophil (Absolute #) 0.56 (0-0.5); Hematocrit 35.5 % (42-50); Hemoglobin 11.5 gm/dl (12.5-18.0); Lymphocyte (Absolute #) 1.56 (1.0-4.6); Lymphocytes % 15.5 % (24.0-44.0); Mean Cell Volume 91.7 fl (78-100); Mean Corpuscular Hemoglobin 29.7 pg (26-32); Mean Corpuscular Hgb Concent. 32.4 g/dl (32-36); Mean Platelet Volume 8.3 fl (7.5-11.0); Monocyte (Absolute #) 1.18 (0.0-1.3); Monocytes % 11.8 % (0.0-12.0); Neutrophil % 66.7 % (36.0-66.0); Platelet Count 527 K/mm3 (150-450); Red Blood Count 3.87 M/mm3 (4.1-5.6); Red Cell Distribution Width 13.1 % (11.5-14.0)
[2020-10-19] MEDS: Sodium Chloride 0.9% 1000 ML 1,000 ML IV SCH ×3 (08:10→23:45)
--- NOTE | 2020-10-19 08:56 | PCM.HP ---
History of Present Illness - Chief Complaint Chief Complaint: Intractable nausea vomiting History of Present Illness: is a 35 year old male pt with DM on insulin (noncompliant) and hx polysubstance abuse, not seen in our office since 2016, who was admitted through ER with 3d hx of abd pain and vomiting. He c/o using methamphetamine again starting 3d ago after being clean for over a month. Labs were grossly nonacute; small decrease in eGFR yesterday which has resolved today. Nl WBC. Thrombocytosis. Lactate intially elevated at 2.7 but now 1.3. Troponins neg x 5. COVID neg. Urine drug screen + for opiates and amphetamines. CT abd/pelvis with appendicolith (stable) without appendicitis and mild constipation, nothing acute. This morning pt is still extremely nauseated despite having had zofran, so scopolamine patch was applied. He indicates with tiny nods of the head that he is still having abd pain. - Review of Systems All Other Systems: Unable due to condition (Extreme nausea - some ROS completed but pt not speaking to me) Medications & Allergies Home Medications: Home Medication List Insulin Glargine,Hum.rec.anlog [Basaglar Kwikpen U-100] 20 unit SQ DAILY #5 insuln.pen 09/25/19 [Rx Confirmed 10/18/20] Insulin Lispro [Humalog] 5 unit SQ TIDAC 1 Days ml 09/25/19 [Rx Confirmed 10/18/20] Allergies/Adverse Reactions: Allergies Allergy/AdvReac Type Severity Reaction Status Date / Time No Known Drug Allergies Allergy Verified 10/18/20 14:10 - Past Medical History Past Medical History: Yes Neurological History: No Pertinent History ENT History: No Pertinent History Cardiac History: No Pertinent History Respiratory History: No Pertinent History Endocrine Medical History: Diabetes Type I Musculoskelatal History: No Pertinent History GI Medical History: No Pertinent History History: No Pertinent History Pyscho-Social History: Anxiety, Depression Male Reproductive Disorders: No Pertinent History Comment: DKA - Past Surgical History Past Surgical History: No Neuro Surgical History: No Pertinent History Cardiac History: No Pertinent History Respiratory Surgery: No Pertinent History GI Surgical History: No Pertinent History Genitourinary Surgical Hx: No Pertinent History Musculskeletal Surgical Hx: No Pertinent History Male Surgical History: No Pertinent History Other Surgical History: . - Social History Smoking Status: Unknown if ever smoked Exposure to second hand smoke: No Alcohol: None Drug Use: marijuana, methamphetamines - Physical Exam Vital Signs: Vital Signs - 24 hr Temp Pulse Resp BP Pulse Ox 10/19/20 07:34 97.6 F 87 16 179/101 97 10/19/20 04:19 98.0 F 85 20 157/84 96 10/19/20 00:20 18 10/18/20 23:47 98.6 F 108 H 18 123/79 97 10/18/20 20:15 20 10/18/20 19:44 98.4 F 104 H 20 137/87 96 10/18/20 17:18 97.6 F 107 H 20 169/96 97 10/18/20 16:09 106 H 28 H 150/98 100 10/18/20 15:44 96 10/18/20 15:16 108 H 18 145/88 98 10/18/20 14:41 106 H 16 187/106 96 10/18/20 14:14 97.7 F 115 H 18 168/136 99 General Appearance: moderate distress, alert (eyes are closed, however.) Neurologic Exam: other (pt lying in bed with eyes closed, nods briefly to answer question) Eye Exam: eyes nml inspection Ears, Nose, Throat Exam: moist mucous membranes Respiratory Exam: lungs clear, diminished breath sounds, No crackles/rales, No rhonchi, No wheezing Cardiovascular Exam: regular rate/rhythm, normal heart sounds, No murmur Gastrointestinal/Abdomen Exam: soft, normal bowel sounds, No tenderness, No distention, No mass, No guarding, No rebound Extremity Exam: normal inspection, No pedal edema, No swelling Skin Exam: normal color, warm, dry, No rash Results - Labs Lab/Micro Results: Lab Results-Last 24 Hours 10/18/20 10/18/20 10/18/20 Range/Units 14:20 14:37 14:37 WBC 9.5 (4.0-10.5) K/mm3 RBC 4.62 (4.1-5.6) M/mm3 Hgb 13.6 (12.5-18.0) gm/dl Hct 40.9 L (42-50) % MCV 88.5 (78-100) fl MCH 29.4 (26-32) pg MCHC 33.3 (32-36) g/dl RDW 13.1 (11.5-14.0) % Plt Count 647 H (150-450) K/mm3 MPV 8.3 (7.5-11.0) fl Gran % 72.8 H (36.0-66.0) % Eos # (Auto) 0.25 (0-0.5) Absolute Lymphs (auto) 1.21 (1.0-4.6) Absolute Monos (auto) 1.09 (0.0-1.3) Lymphocytes % 12.8 L (24.0-44.0) % Monocytes % 11.5 (0.0-12.0) % Eosinophils % 2.6 (0.00-5.0) % Basophils % 0.3 (0.0-0.4) % Absolute Granulocytes 6.90 (1.4-6.9) Basophils # 0.03 (0-0.4) pO2/FiO2 Ratio % VBG pH (7.32-7.42) VBG pCO2 at Pat Temp (42-55) mm/Hg VBG pO2 at Pat Temp (25-40) mm/Hg VBG HCO3 (22-28) meq/L VBG O2 Sat (Jalen) (95-100) VBG Base Excess (-2.0-2.0) VBG Hemoglobin VBG Carboxyhemoglobin (0.0-6.9) % T HGB POC Potassium (3.5-5.1) Sodium (137-145) mmol/L Potassium (3.5-5.1) mmol/L Chloride (98-107) mmol/L Carbon Dioxide (22-30) mmol/L Anion Gap (5-15) MEQ/L BUN (9-20) mg/dL Creatinine (0.66-1.25) mg/dL Estimated GFR ML/MIN Glucose (74-106) mg/dL POC Glucometer (74 to 106) mg/dL Lactic Acid 2.7 H (0.4-2.0) Calcium (8.4-10.2) mg/dL Total Bilirubin (0.2-1.3) mg/dL AST (17-59) U/L ALT (0-50) U/L Alkaline Phosphatase (38-126) U/L Troponin I 0.015 (0.000-0.034) ng/mL Serum Total Protein (6.3-8.2) g/dL Albumin (3.5-5.0) g/dL Amylase (30-110) U/L Lipase (23-300) U/L Urine Color (YELLOW) Urine Appearance (CLEAR) Urine pH (5-6) Ur Specific [place] (1.005-1.025) Urine Protein (Negative) Urine Ketones (NEGATIVE) Urine Blood (0-5) Tomas/ul Urine Nitrite (NEGATIVE) Urine Bilirubin (NEGATIVE) Urine Urobilinogen (0-1) mg/dL Ur Leukocyte Esterase (NEGATIVE) Urine WBC (Auto) (0-5) /HPF Urine RBC (Auto) (0-2) /HPF U Epithel Cells (Auto) (FEW) /HPF Urine Bacteria (Auto) (NEGATIVE) /HPF Amorphous Crystals (NEGATIVE) /HPF Urine Mucus (Auto) (NEGATIVE) /HPF Urine Culture Reflexed (NO) Urine Glucose (NEGATIVE) mg/dL Urine Opiates Level (NEGATIVE) Ur Methadone (NEGATIVE) Urine Barbiturates (NEGATIVE) Ur Phencyclidine (PCP) (NEGATIVE) Urine Amphetamine (NEGATIVE) U Benzodiazepine Level (NEGATIVE) Urine Cocaine (NEGATIVE) Urine Marijuana (THC) (NEGATIVE) Influenza Type A Ag (NEGATIVE) Influenza Type B Ag (NEGATIVE) RSV (PCR) (Negative) SARS-CoV-2 (PCR) (NEGATIVE) 10/18/20 10/18/20 10/18/20 Range/Units 14:37 14:43 15:48 WBC (4.0-10.5) K/mm3 RBC (4.1-5.6) M/mm3 Hgb (12.5-18.0) gm/dl Hct (42-50) % MCV (78-100) fl MCH (26-32) pg MCHC (32-36) g/dl RDW (11.5-14.0) % Plt Count (150-450) K/mm3 MPV (7.5-11.0) fl Gran % (36.0-66.0) % Eos # (Auto) (0-0.5) Absolute Lymphs (auto) (1.0-4.6) Absolute Monos (auto) (0.0-1.3) Lymphocytes % (24.0-44.0) % Monocytes % (0.0-12.0) % Eosinophils % (0.00-5.0) % Basophils % (0.0-0.4) % Absolute Granulocytes (1.4-6.9) Basophils # (0-0.4) pO2/FiO2 Ratio 21.0 % VBG pH 7.49 H (7.32-7.42) VBG pCO2 at Pat Temp 57 H (42-55) mm/Hg VBG pO2 at Pat Temp 21 L (25-40) mm/Hg VBG HCO3 43.4 H* (22-28) meq/L VBG O2 Sat (Jalen) 38.0 L (95-100) VBG Base Excess 17.0 H (-2.0-2.0) VBG Hemoglobin 13.9 VBG Carboxyhemoglobin 3.8 (0.0-6.9) % T HGB POC Potassium 3.5 (3.5-5.1) Sodium 132 L (137-145) mmol/L Potassium 3.6 (3.5-5.1) mmol/L Chloride 84 L (98-107) mmol/L Carbon Dioxide 39 H (22-30) mmol/L Anion Gap 11.9 (5-15) MEQ/L BUN 23 H (9-20) mg/dL Creatinine 1.43 H (0.66-1.25) mg/dL Estimated GFR 59.8 ML/MIN Glucose 203 H (74-106) mg/dL POC Glucometer (74 to 106) mg/dL Lactic Acid (0.4-2.0) Calcium 11.5 H (8.4-10.2) mg/dL Total Bilirubin 0.90 (0.2-1.3) mg/dL AST 52 (17-59) U/L ALT 66 H (0-50) U/L Alkaline Phosphatase 228 H (38-126) U/L Troponin I (0.000-0.034) ng/mL Serum Total Protein 7.8 (6.3-8.2) g/dL Albumin 4.1 (3.5-5.0) g/dL Amylase 240 H (30-110) U/L Lipase 419 H (23-300) U/L Urine Color (YELLOW) Urine Appearance (CLEAR) Urine pH (5-6) Ur Specific [place] (1.005-1.025) Urine Protein (Negative) Urine Ketones (NEGATIVE) Urine Blood (0-5) Tomas/ul Urine Nitrite (NEGATIVE) Urine Bilirubin (NEGATIVE) Urine Urobilinogen (0-1) mg/dL Ur Leukocyte Esterase (NEGATIVE) Urine WBC (Auto) (0-5) /HPF Urine RBC (Auto) (0-2) /HPF U Epithel Cells (Auto) (FEW) /HPF Urine Bacteria (Auto) (NEGATIVE) /HPF Amorphous Crystals (NEGATIVE) /HPF Urine Mucus (Auto) (NEGATIVE) /HPF Urine Culture Reflexed (NO) Urine Glucose (NEGATIVE) mg/dL Urine Opiates Level (NEGATIVE) Ur Methadone (NEGATIVE) Urine Barbiturates (NEGATIVE) Ur Phencyclidine (PCP) (NEGATIVE) Urine Amphetamine (NEGATIVE) U Benzodiazepine Level (NEGATIVE) Urine Cocaine (NEGATIVE) Urine Marijuana (THC) (NEGATIVE) Influenza Type A Ag NEGATIVE (NEGATIVE) Influenza Type B Ag NEGATIVE (NEGATIVE) RSV (PCR) NEGATIVE (Negative) SARS-CoV-2 (PCR) NEGATIVE (NEGATIVE) 10/18/20 10/18/20 10/18/20 Range/Units 16:52 18:00 20:51 WBC (4.0-10.5) K/mm3 RBC (4.1-5.6) M/mm3 Hgb (12.5-18.0) gm/dl Hct (42-50) % MCV (78-100) fl MCH (26-32) pg MCHC (32-36) g/dl RDW (11.5-14.0) % Plt Count (150-450) K/mm3 MPV (7.5-11.0) fl Gran % (36.0-66.0) % Eos # (Auto) (0-0.5) Absolute Lymphs (auto) (1.0-4.6) Absolute Monos (auto) (0.0-1.3) Lymphocytes % (24.0-44.0) % Monocytes % (0.0-12.0) % Eosinophils % (0.00-5.0) % Basophils % (0.0-0.4) % Absolute Granulocytes (1.4-6.9) Basophils # (0-0.4) pO2/FiO2 Ratio % VBG pH (7.32-7.42) VBG pCO2 at Pat Temp (42-55) mm/Hg VBG pO2 at Pat Temp (25-40) mm/Hg VBG HCO3 (22-28) meq/L VBG O2 Sat (Jalen) (95-100) VBG Base Excess (-2.0-2.0) VBG Hemoglobin VBG Carboxyhemoglobin (0.0-6.9) % T HGB POC Potassium (3.5-5.1) Sodium (137-145) mmol/L Potassium (3.5-5.1) mmol/L Chloride (98-107) mmol/L Carbon Dioxide (22-30) mmol/L Anion Gap (5-15) MEQ/L BUN (9-20) mg/dL Creatinine (0.66-1.25) mg/dL Estimated GFR ML/MIN Glucose (74-106) mg/dL POC Glucometer 434 H (74 to 106) mg/dL Lactic Acid 1.3 (0.4-2.0) Calcium (8.4-10.2) mg/dL Total Bilirubin (0.2-1.3) mg/dL AST (17-59) U/L ALT (0-50) U/L Alkaline Phosphatase (38-126) U/L Troponin I 0.015 (0.000-0.034) ng/mL Serum Total Protein (6.3-8.2) g/dL Albumin (3.5-5.0) g/dL Amylase (30-110) U/L Lipase (23-300) U/L Urine Color (YELLOW) Urine Appearance (CLEAR) Urine pH (5-6) Ur Specific [place] (1.005-1.025) Urine Protein (Negative) Urine Ketones (NEGATIVE) Urine Blood (0-5) Tomas/ul Urine Nitrite (NEGATIVE) Urine Bilirubin (NEGATIVE) Urine Urobilinogen (0-1) mg/dL Ur Leukocyte Esterase (NEGATIVE) Urine WBC (Auto) (0-5) /HPF Urine RBC (Auto) (0-2) /HPF U Epithel Cells (Auto) (FEW) /HPF Urine Bacteria (Auto) (NEGATIVE) /HPF Amorphous Crystals (NEGATIVE) /HPF Urine Mucus (Auto) (NEGATIVE) /HPF Urine Culture Reflexed (NO) Urine Glucose (NEGATIVE) mg/dL Urine Opiates Level (NEGATIVE) Ur Methadone (NEGATIVE) Urine Barbiturates (NEGATIVE) Ur Phencyclidine (PCP) (NEGATIVE) Urine Amphetamine (NEGATIVE) U Benzodiazepine Level (NEGATIVE) Urine Cocaine (NEGATIVE) Urine Marijuana (THC) (NEGATIVE) Influenza Type A Ag (NEGATIVE) Influenza Type B Ag (NEGATIVE) RSV (PCR) (Negative) SARS-CoV-2 (PCR) (NEGATIVE) 10/18/20 10/18/20 10/18/20 Range/Units 20:59 23:33 23:33 WBC (4.0-10.5) K/mm3 RBC (4.1-5.6) M/mm3 Hgb (12.5-18.0) gm/dl Hct (42-50) % MCV (78-100) fl MCH (26-32) pg MCHC (32-36) g/dl RDW (11.5-14.0) % Plt Count (150-450) K/mm3 MPV (7.5-11.0) fl Gran % (36.0-66.0) % Eos # (Auto) (0-0.5) Absolute Lymphs (auto) (1.0-4.6) Absolute Monos (auto) (0.0-1.3) Lymphocytes % (24.0-44.0) % Monocytes % (0.0-12.0) % Eosinophils % (0.00-5.0) % Basophils % (0.0-0.4) % Absolute Granulocytes (1.4-6.9) Basophils # (0-0.4) pO2/FiO2 Ratio % VBG pH (7.32-7.42) VBG pCO2 at Pat Temp (42-55) mm/Hg VBG pO2 at Pat Temp (25-40) mm/Hg VBG HCO3 (22-28) meq/L VBG O2 Sat (Jalen) (95-100) VBG Base Excess (-2.0-2.0) VBG Hemoglobin VBG Carboxyhemoglobin (0.0-6.9) % T HGB POC Potassium (3.5-5.1) Sodium (137-145) mmol/L Potassium (3.5-5.1) mmol/L Chloride (98-107) mmol/L Carbon Dioxide (22-30) mmol/L Anion Gap (5-15) MEQ/L BUN (9-20) mg/dL Creatinine (0.66-1.25) mg/dL Estimated GFR ML/MIN Glucose (74-106) mg/dL POC Glucometer (74 to 106) mg/dL Lactic Acid (0.4-2.0) Calcium (8.4-10.2) mg/dL Total Bilirubin (0.2-1.3) mg/dL AST (17-59) U/L ALT (0-50) U/L Alkaline Phosphatase (38-126) U/L Troponin I 0.013 (0.000-0.034) ng/mL Serum Total Protein (6.3-8.2) g/dL Albumin (3.5-5.0) g/dL Amylase (30-110) U/L Lipase (23-300) U/L Urine Color YELLOW (YELLOW) Urine Appearance SLIGHTLY CLOUDY (CLEAR) Urine pH 7.0 (5-6) Ur Specific [place] 1.039 (1.005-1.025) Urine Protein >=500 (Negative) Urine Ketones SMALL (NEGATIVE) Urine Blood NEGATIVE (0-5) Tomas/ul Urine Nitrite NEGATIVE (NEGATIVE) Urine Bilirubin NEGATIVE (NEGATIVE) Urine Urobilinogen NEGATIVE (0-1) mg/dL Ur Leukocyte Esterase NEGATIVE (NEGATIVE) Urine WBC (Auto) 0-2 (0-5) /HPF Urine RBC (Auto) 0-2 (0-2) /HPF U Epithel Cells (Auto) NONE (FEW) /HPF Urine Bacteria (Auto) NONE (NEGATIVE) /HPF Amorphous Crystals FEW (NEGATIVE) /HPF Urine Mucus (Auto) SLIGHT (NEGATIVE) /HPF Urine Culture Reflexed NO (NO) Urine Glucose >=500 (NEGATIVE) mg/dL Urine Opiates Level POSITIVE (NEGATIVE) Ur Methadone NEGATIVE (NEGATIVE) Urine Barbiturates NEGATIVE (NEGATIVE) Ur Phencyclidine (PCP) NEGATIVE (NEGATIVE) Urine Amphetamine POSITIVE (NEGATIVE) U Benzodiazepine Level NEGATIVE (NEGATIVE) Urine Cocaine NEGATIVE (NEGATIVE) Urine Marijuana (THC) NEGATIVE (NEGATIVE) Influenza Type A Ag (NEGATIVE) Influenza Type B Ag (NEGATIVE) RSV (PCR) (Negative) SARS-CoV-2 (PCR) (NEGATIVE) 10/18/20 10/19/20 10/19/20 Range/Units 23:40 02:59 03:10 WBC (4.0-10.5) K/mm3 RBC (4.1-5.6) M/mm3 Hgb (12.5-18.0) gm/dl Hct (42-50) % MCV (78-100) fl MCH (26-32) pg MCHC (32-36) g/dl RDW (11.5-14.0) % Plt Count (150-450) K/mm3 MPV (7.5-11.0) fl Gran % (36.0-66.0) % Eos # (Auto) (0-0.5) Absolute Lymphs (auto) (1.0-4.6) Absolute Monos (auto) (0.0-1.3) Lymphocytes % (24.0-44.0) % Monocytes % (0.0-12.0) % Eosinophils % (0.00-5.0) % Basophils % (0.0-0.4) % Absolute Granulocytes (1.4-6.9) Basophils # (0-0.4) pO2/FiO2 Ratio % VBG pH (7.32-7.42) VBG pCO2 at Pat Temp (42-55) mm/Hg VBG pO2 at Pat Temp (25-40) mm/Hg VBG HCO3 (22-28) meq/L VBG O2 Sat (Jalen) (95-100) VBG Base Excess (-2.0-2.0) VBG Hemoglobin VBG Carboxyhemoglobin (0.0-6.9) % T HGB POC Potassium (3.5-5.1) Sodium (137-145) mmol/L Potassium (3.5-5.1) mmol/L Chloride (98-107) mmol/L Carbon Dioxide (22-30) mmol/L Anion Gap (5-15) MEQ/L BUN (9-20) mg/dL Creatinine (0.66-1.25) mg/dL Estimated GFR ML/MIN Glucose (74-106) mg/dL POC Glucometer 135 H (74 to 106) mg/dL Lactic Acid (0.4-2.0) Calcium (8.4-10.2) mg/dL Total Bilirubin (0.2-1.3) mg/dL AST (17-59) U/L ALT (0-50) U/L Alkaline Phosphatase (38-126) U/L Troponin I 0.013 < 0.012 (0.000-0.034) ng/mL Serum Total Protein (6.3-8.2) g/dL Albumin (3.5-5.0) g/dL Amylase (30-110) U/L Lipase (23-300) U/L Urine Color (YELLOW) Urine Appearance (CLEAR) Urine pH (5-6) Ur Specific [place] (1.005-1.025) Urine Protein (Negative) Urine Ketones (NEGATIVE) Urine Blood (0-5) Tomas/ul Urine Nitrite (NEGATIVE) Urine Bilirubin (NEGATIVE) Urine Urobilinogen (0-1) mg/dL Ur Leukocyte Esterase (NEGATIVE) Urine WBC (Auto) (0-5) /HPF Urine RBC (Auto) (0-2) /HPF U Epithel Cells (Auto) (FEW) /HPF Urine Bacteria (Auto) (NEGATIVE) /HPF Amorphous Crystals (NEGATIVE) /HPF Urine Mucus (Auto) (NEGATIVE) /HPF Urine Culture Reflexed (NO) Urine Glucose (NEGATIVE) mg/dL Urine Opiates Level (NEGATIVE) Ur Methadone (NEGATIVE) Urine Barbiturates (NEGATIVE) Ur Phencyclidine (PCP) (NEGATIVE) Urine Amphetamine (NEGATIVE) U Benzodiazepine Level (NEGATIVE) Urine Cocaine (NEGATIVE) Urine Marijuana (THC) (NEGATIVE) Influenza Type A Ag (NEGATIVE) Influenza Type B Ag (NEGATIVE) RSV (PCR) (Negative) SARS-CoV-2 (PCR) (NEGATIVE) 10/19/20 10/19/20 10/19/20 Range/Units 03:10 03:10 07:15 WBC 10.0 (4.0-10.5) K/mm3 RBC 3.87 L (4.1-5.6) M/mm3 Hgb 11.5 L (12.5-18.0) gm/dl Hct 35.5 L (42-50) % MCV 91.7 (78-100) fl MCH 29.7 (26-32) pg MCHC 32.4 (32-36) g/dl RDW 13.1 (11.5-14.0) % Plt Count 527 H (150-450) K/mm3 MPV 8.3 (7.5-11.0) fl Gran % 66.7 H (36.0-66.0) % Eos # (Auto) 0.56 H (0-0.5) Absolute Lymphs (auto) 1.56 (1.0-4.6) Absolute Monos (auto) 1.18 (0.0-1.3) Lymphocytes % 15.5 L (24.0-44.0) % Monocytes % 11.8 (0.0-12.0) % Eosinophils % 5.6 H (0.00-5.0) % Basophils % 0.4 (0.0-0.4) % Absolute Granulocytes 6.70 (1.4-6.9) Basophils # 0.04 (0-0.4) pO2/FiO2 Ratio % VBG pH (7.32-7.42) VBG pCO2 at Pat Temp (42-55) mm/Hg VBG pO2 at Pat Temp (25-40) mm/Hg VBG HCO3 (22-28) meq/L VBG O2 Sat (Jalen) (95-100) VBG Base Excess (-2.0-2.0) VBG Hemoglobin VBG Carboxyhemoglobin (0.0-6.9) % T HGB POC Potassium (3.5-5.1) Sodium 133 L (137-145) mmol/L Potassium 4.1 (3.5-5.1) mmol/L Chloride 95 L D (98-107) mmol/L Carbon Dioxide 32 H (22-30) mmol/L Anion Gap 9.4 (5-15) MEQ/L BUN 20 (9-20) mg/dL Creatinine 1.31 H (0.66-1.25) mg/dL Estimated GFR > 60.0 ML/MIN Glucose 158 H (74-106) mg/dL POC Glucometer 353 H (74 to 106) mg/dL Lactic Acid (0.4-2.0) Calcium 9.4 D (8.4-10.2) mg/dL Total Bilirubin 0.70 (0.2-1.3) mg/dL AST 41 (17-59) U/L ALT 49 (0-50) U/L Alkaline Phosphatase 180 H (38-126) U/L Troponin I (0.000-0.034) ng/mL Serum Total Protein 5.8 L (6.3-8.2) g/dL Albumin 3.1 L (3.5-5.0) g/dL Amylase (30-110) U/L Lipase (23-300) U/L Urine Color (YELLOW) Urine Appearance (CLEAR) Urine pH (5-6) Ur Specific [place] (1.005-1.025) Urine Protein (Negative) Urine Ketones (NEGATIVE) Urine Blood (0-5) Tomas/ul Urine Nitrite (NEGATIVE) Urine Bilirubin (NEGATIVE) Urine Urobilinogen (0-1) mg/dL Ur Leukocyte Esterase (NEGATIVE) Urine WBC (Auto) (0-5) /HPF Urine RBC (Auto) (0-2) /HPF U Epithel Cells (Auto) (FEW) /HPF Urine Bacteria (Auto) (NEGATIVE) /HPF Amorphous Crystals (NEGATIVE) /HPF Urine Mucus (Auto) (NEGATIVE) /HPF Urine Culture Reflexed (NO) Urine Glucose (NEGATIVE) mg/dL Urine Opiates Level (NEGATIVE) Ur Methadone (NEGATIVE) Urine Barbiturates (NEGATIVE) Ur Phencyclidine (PCP) (NEGATIVE) Urine Amphetamine (NEGATIVE) U Benzodiazepine Level (NEGATIVE) Urine Cocaine (NEGATIVE) Urine Marijuana (THC) (NEGATIVE) Influenza Type A Ag (NEGATIVE) Influenza Type B Ag (NEGATIVE) RSV (PCR) (Negative) SARS-CoV-2 (PCR) (NEGATIVE) Accuchecks Date 10/19/20 Date 10/18/20 Time 07:30 Time 14:27 - Radiology Impressions Radiology Exams & Impressions: Radiology Procedures Category Date Time Status ABDOMEN AND PELVIS W CONTRAST [CT] Stat Exams 10/18/20 14:41 Completed Assessment/Plan (1) Intractable vomiting with nausea Current Visit: Yes Status: Acute Assessment & Plan: Usually takes a few days for pt to improve and start tolerating po. Code(s): R11.2 - NAUSEA WITH VOMITING, UNSPECIFIED (2) Upper abdominal pain Current Visit: Yes Status: Acute (3) Diabetes mellitus type I Current Visit: Yes Status: Chronic Onset Date: ~05/30/18 Qualifiers: Diabetes mellitus complication status: with other specified complication Qualified Code(s): E10.69 - Type 1 diabetes mellitus with other specified complication (4) Illicit drug use Current Visit: Yes Status: Chronic Onset Date: ~05/30/18 Code(s): F19.90 - OTHER PSYCHOACTIVE SUBSTANCE USE, UNSPECIFIED, UNCOMPLICATED
[2020-10-19] MEDS ORDERED: Transderm Scop 1.5MG Patch TOP SCH (09:00)
[2020-10-19] MEDS: PROTONIX 40 MG IV IV SCH (09:46)
[2020-10-19] MEDS: HUMALOG SQ PRN ×3 (09:56→21:56)
[2020-10-19] MEDS ORDERED: NON-FORMULARY ITEM (Insulin Glargine,Hum.Rec.Anlog [Basaglar Kwikpen U-100] 20 UNIT) SQ SCH (10:00)
[2020-10-19] MEDS: Lantus Insulin SQ SCH (10:33)
[2020-10-19] MEDS ORDERED: NON-FORMULARY ITEM (Insulin Lispro 5 UNIT) SQ SCH (11:30)
[2020-10-19] MEDS: HUMALOG SQ SCH ×2 (12:46→16:09)
[2020-10-20] MEDS: Sodium Chloride 0.9% 1000 ML 1,000 ML IV SCH ×3 (07:58→23:06)
[2020-10-20] MEDS: Zofran 4 MG/2 ML VIAL IV PRN ×2 (08:00→15:42)
[2020-10-20] MEDS: MORPHINE SULFATE 2 MG INJ IV PRN ×3 (08:01→23:23)
--- NOTE | 2020-10-20 08:30 | PCM.NOTE ---
Date and Time: 10/20/20828 Subjective Assessment: patient reports he has had no vomiting overnight, keeping down liquids. feeling better, pain is very minimal. denies pain currently. Objective Exam General Appearance: no apparent distress, alert Respiratory Exam: normal breath sounds, lungs clear, No respiratory distress Cardiovascular Exam: regular rate/rhythm, normal heart sounds Gastrointestinal/Abdomen Exam: soft, No tenderness, No mass OBJECTIVE DATA Vital Signs: Vital Signs - 24 hr Temp Pulse Resp BP Pulse Ox 10/20/20 07:14 97.8 F 83 18 120/70 94 L 10/20/20 04:00 98.4 F 82 18 131/79 98 10/20/20 00:00 98.5 F 80 16 136/80 95 10/19/20 20:00 97.9 F 84 18 128/74 96 10/19/20 16:00 97.5 F 97 H 16 146/88 98 10/19/20 13:00 97.9 F 93 H 16 138/83 99 10/19/20 09:00 162/108 Pain Assessment - Last Documented Pain Intensity 5 Pain Scale Used 0-10 Pain Scale Intake and Output: Intake & Output 10/17/20 10/18/20 10/19/20 10/20/20 11:59 11:59 11:59 11:59 Intake Total 1258 6579 Output Total 1450 1500 Balance -192 5079 Weight 70.6 kg Lab Results: Lab Results-Last 24 Hours 10/19/20 10/19/20 10/19/20 Range/Units 08:00 11:32 15:52 Glucose (74-106) mg/dL POC Glucometer 269 H 46 L* (74 to 106) mg/dL Hemoglobin A1c 8.78 H (4.5-6.0) % 10/19/20 10/19/20 10/19/20 Range/Units 15:56 16:08 21:21 Glucose 52 L (74-106) mg/dL POC Glucometer 43 L* 270 H (74 to 106) mg/dL Hemoglobin A1c (4.5-6.0) % 10/20/20 Range/Units 07:07 Glucose (74-106) mg/dL POC Glucometer 109 H (74 to 106) mg/dL Hemoglobin A1c (4.5-6.0) % Radiology Exams: Radiology Procedures Category Date Time Status ABDOMEN AND PELVIS W CONTRAST [CT] Stat Exams 10/18/20 14:41 Completed Multi-Disciplinary Progress Notes: Multi-Disciplinary Progress Notes 10/19/20 10:31 Case Management Note by Nona Carranza WHEN S/W PATIENT THIS AM HE STATED THAT HE HAD ALL OF HIS DIABETIC SUPPLIES BUT THEN SAID HE DOESN'T KNOW IF HE CAN AFFORD HIS INSULINS OR NOT. HE STATES HE DOESN'T PICK THEM UP SO HE DOESN'T KNOW WHAT THEY COST. HE ALSO MENTIONED THAT HE HAS NOT WENT TO ANY FOLLOW UP APPOINTMENTS D/T NOT HAVING A RIDE. HE WAS EDUCATED THAT MEDICAID WILL PROVIDE HIM TRANSPORTATION. HE JUST NEEDS TO CALL AND SET IT UP. HE SAID HE DIDN'T KNOW THAT BECAUSE HE CAN'T READ OR WRITE. S/W RICKY AT PATIENT'S PHARMACY- SHE REPORTS PATIENT HAS $0 COPAYS FOR HIS MEDICATIONS. ON 09/11 PATIENT PICKED UP A 75 DAY SUPPLY OF BASIGLAR. SHE DID NOTE THAT PATIENT DOES NOT HAVE AN ACTIVE SCRIPT FOR NOVOLOG. THE LAST SCRIPT HE HAD FOR IT WAS NEVER PICKED UP. IF PATIENT NEEDS TO DC HOME ON/CONTINUE ON NOVOLOG HE WILL NEED A NEW SCRIPTS SENT TO PHARMACY. I GAVE PATIENT THIS INFORMATION AND HE KEPT SAYING IT WAS THE WRONG INSULIN (WHY HE DIDN'T BUSINESS INFORMATION CONSULTANT THE NOVOLOG) AND THAT THE PHARMACY TOLD HIM TO CALL HIS PHYSICIAN WHICH HE STATED HE NEVER DID. HE STATES HIS PHONE DOESN'T WORK. HE REPORTS HIS MOTHER CAN'T READ OR WRITE EITHER. HE REPORTS HIS BROTHER CAN. I ASKED IF HE COULD ASK HIS BROTHER FOR ASSISTANCE READING AND BORROW A PHONE TO CALL FOR TRANSPORTATION- HE SHRUGGED HIS SHOULDERS. HE WAS GIVEN HANDOUT WITH TRANSPORTATION OPTIONS INCLUDING THE MEDICAID TRANSPORTATION. Initialized on 10/19/20 10:31 - END OF NOTE Assessment/Plan (1) Intractable vomiting with nausea Current Visit: Yes Status: Acute Assessment & Plan: advance to bland diet, improving clinically. Code(s): R11.2 - NAUSEA WITH VOMITING, UNSPECIFIED (2) Illicit drug use Current Visit: Yes Status: Chronic Onset Date: ~05/30/18 Code(s): F19.90 - OTHER PSYCHOACTIVE SUBSTANCE USE, UNSPECIFIED, UNCOMPLICATED (3) Diabetes mellitus type I Current Visit: Yes Status: Chronic Onset Date: ~05/30/18 Qualifiers: Diabetes mellitus complication status: with other specified complication Qualified Code(s): E10.69 - Type 1 diabetes mellitus with other specified complication
[2020-10-20] MEDS: Lantus Insulin SQ SCH (09:23)
[2020-10-20] MEDS: PROTONIX 40 MG IV IV SCH (09:23)
[2020-10-20] MEDS: HUMALOG SQ PRN ×2 (12:24→21:12)
[2020-10-21 05:22] LABS: Absolute Neutrophil Ct (ANC) 4.75 (1.4-6.9); BASOPHIL % 0.4 % (0.0-0.4); Basophil (Absolute #) 0.03 (0-0.4); Eosinophil % 5.4 % (0.00-5.0); Eosinophil (Absolute #) 0.39 (0-0.5); Hemoglobin 11.1 gm/dl (12.5-18.0); Lymphocyte (Absolute #) 1.41 (1.0-4.6); Lymphocytes % 19.5 % (24.0-44.0); Mean Cell Volume 93.6 fl (78-100); Mean Corpuscular Hemoglobin 29.7 pg (26-32); Mean Corpuscular Hgb Concent. 31.7 g/dl (32-36); Mean Platelet Volume 8.5 fl (7.5-11.0); Monocyte (Absolute #) 0.64 (0.0-1.3); Monocytes % 8.9 % (0.0-12.0); Neutrophil % 65.8 % (36.0-66.0); Platelet Count 431 K/mm3 (150-450); Red Blood Count 3.74 M/mm3 (4.1-5.6); Red Cell Distribution Width 12.8 % (11.5-14.0); White Blood Count 7.2 K/mm3 (4.0-10.5)
[2020-10-21 05:38] LABS: ALBUMIN 3.2 g/dL (3.5-5.0); ALKALINE PHOSPHATASE 181 U/L (38-126); BLOOD UREA NITROGEN 13 mg/dL (9-20); CHLORIDE 102 mmol/L (98-107); Calcium 8.2 mg/dL (8.4-10.2); Carbon Dioxide 26 mmol/L (22-30); Creatinine 1 1.03 mg/dL (0.66-1.25); EST GLOMERULAR FILTRATION RATE > 60.0 ML/MIN; Glucose 75 mg/dL (74-106); Potassium 3.7 mmol/L (3.5-5.1); SGOT/AST 60 U/L (17-59); SGPT/ALT 60 U/L (0-50); SODIUM 133 mmol/L (137-145); Total Protein 6.3 g/dL (6.3-8.2)
[2020-10-21 07:45] VITALS: BP 143/93; PULSE 94; O2SAT 97
--- NOTE | 2020-10-21 08:54 | PCM.DS ---
Discharge Summary Date of Admission: 10/18/20 16:50 Admitting Physician: VALENTINA VERONICA Primary Care Provider: VALENTINA VERONICA Allergies Allergies No Known Drug Allergies Allergy (Verified 10/18/20 14:10) Hospital Summary - Hospital Course Hospital Course: Pt is 35 yo male with uncontrolled diabetes mellitus and polysubstance abuse who was admitted through ER after methamphetamine use with abdominal pain and vomiting. Vomiting improved quite a bit with scopolamine transdermal patch and IV fluids. Today abd pain is 2.5/10 and he is tolerating po. Will be discharging to home today. Discharge planning has discussed coming to appointments and getting his insulin outpatient. - Vitals & Intake/Output Vital Signs: Vital Signs Temperature 98.4 F 10/21/20 07:44 Pulse Rate 94 H 10/21/20 07:44 Respiratory Rate 12 10/21/20 07:44 Blood Pressure 143/93 10/21/20 07:44 O2 Sat by Pulse Oximetry 97 10/21/20 07:44 Intake & Output: Intake & Output 10/18/20 10/19/20 10/20/20 10/21/20 11:59 11:59 11:59 11:59 Intake Total 1258 6699 5506 Output Total 1450 1500 3350 Balance -192 5199 2156 Weight 70.6 kg 75.8 kg 81 kg - Lab Result Diagrams: 10/21/20 04:45 10/21/20 04:45 Lab Results-Last 24 Hrs: Lab Results-Last 24 Hours 10/20/20 10/20/20 10/20/20 Range/Units 11:14 16:17 20:55 WBC (4.0-10.5) K/mm3 RBC (4.1-5.6) M/mm3 Hgb (12.5-18.0) gm/dl Hct (42-50) % MCV (78-100) fl MCH (26-32) pg MCHC (32-36) g/dl RDW (11.5-14.0) % Plt Count (150-450) K/mm3 MPV (7.5-11.0) fl Gran % (36.0-66.0) % Eos # (Auto) (0-0.5) Absolute Lymphs (auto) (1.0-4.6) Absolute Monos (auto) (0.0-1.3) Lymphocytes % (24.0-44.0) % Monocytes % (0.0-12.0) % Eosinophils % (0.00-5.0) % Basophils % (0.0-0.4) % Absolute Granulocytes (1.4-6.9) Basophils # (0-0.4) Sodium (137-145) mmol/L Potassium (3.5-5.1) mmol/L Chloride (98-107) mmol/L Carbon Dioxide (22-30) mmol/L Anion Gap (5-15) MEQ/L BUN (9-20) mg/dL Creatinine (0.66-1.25) mg/dL Estimated GFR ML/MIN Glucose (74-106) mg/dL POC Glucometer 263 H 85 194 H (74 to 106) mg/dL Calcium (8.4-10.2) mg/dL Total Bilirubin (0.2-1.3) mg/dL AST (17-59) U/L ALT (0-50) U/L Alkaline Phosphatase (38-126) U/L Serum Total Protein (6.3-8.2) g/dL Albumin (3.5-5.0) g/dL 10/21/20 10/21/20 10/21/20 Range/Units 04:24 04:45 04:45 WBC 7.2 (4.0-10.5) K/mm3 RBC 3.74 L (4.1-5.6) M/mm3 Hgb 11.1 L (12.5-18.0) gm/dl Hct 35.0 L (42-50) % MCV 93.6 (78-100) fl MCH 29.7 (26-32) pg MCHC 31.7 L (32-36) g/dl RDW 12.8 (11.5-14.0) % Plt Count 431 (150-450) K/mm3 MPV 8.5 (7.5-11.0) fl Gran % 65.8 (36.0-66.0) % Eos # (Auto) 0.39 (0-0.5) Absolute Lymphs (auto) 1.41 (1.0-4.6) Absolute Monos (auto) 0.64 (0.0-1.3) Lymphocytes % 19.5 L (24.0-44.0) % Monocytes % 8.9 (0.0-12.0) % Eosinophils % 5.4 H (0.00-5.0) % Basophils % 0.4 (0.0-0.4) % Absolute Granulocytes 4.75 (1.4-6.9) Basophils # 0.03 (0-0.4) Sodium 133 L (137-145) mmol/L Potassium 3.7 (3.5-5.1) mmol/L Chloride 102 (98-107) mmol/L Carbon Dioxide 26 (22-30) mmol/L Anion Gap 8.0 (5-15) MEQ/L BUN 13 (9-20) mg/dL Creatinine 1.03 (0.66-1.25) mg/dL Estimated GFR > 60.0 ML/MIN Glucose 75 (74-106) mg/dL POC Glucometer 54 L (74 to 106) mg/dL Calcium 8.2 L (8.4-10.2) mg/dL Total Bilirubin 0.20 (0.2-1.3) mg/dL AST 60 H (17-59) U/L ALT 60 H (0-50) U/L Alkaline Phosphatase 181 H (38-126) U/L Serum Total Protein 6.3 (6.3-8.2) g/dL Albumin 3.2 L (3.5-5.0) g/dL 10/21/20 Range/Units 07:28 WBC (4.0-10.5) K/mm3 RBC (4.1-5.6) M/mm3 Hgb (12.5-18.0) gm/dl Hct (42-50) % MCV (78-100) fl MCH (26-32) pg MCHC (32-36) g/dl RDW (11.5-14.0) % Plt Count (150-450) K/mm3 MPV (7.5-11.0) fl Gran % (36.0-66.0) % Eos # (Auto) (0-0.5) Absolute Lymphs (auto) (1.0-4.6) Absolute Monos (auto) (0.0-1.3) Lymphocytes % (24.0-44.0) % Monocytes % (0.0-12.0) % Eosinophils % (0.00-5.0) % Basophils % (0.0-0.4) % Absolute Granulocytes (1.4-6.9) Basophils # (0-0.4) Sodium (137-145) mmol/L Potassium (3.5-5.1) mmol/L Chloride (98-107) mmol/L Carbon Dioxide (22-30) mmol/L Anion Gap (5-15) MEQ/L BUN (9-20) mg/dL Creatinine (0.66-1.25) mg/dL Estimated GFR ML/MIN Glucose (74-106) mg/dL POC Glucometer 199 H (74 to 106) mg/dL Calcium (8.4-10.2) mg/dL Total Bilirubin (0.2-1.3) mg/dL AST (17-59) U/L ALT (0-50) U/L Alkaline Phosphatase (38-126) U/L Serum Total Protein (6.3-8.2) g/dL Albumin (3.5-5.0) g/dL Micro Results-Entire Visit: Accuchecks Date 09/23/20 Date 10/20/20 Date 10/20/20 Date 10/20/20 Time 20:55 Time 16:17 Time 11:14 Discharge Exam General Appearance: no apparent distress, alert Neurologic Exam: oriented x 3, cooperative, other (fair eye contact) Ears, Nose, Throat Exam: moist mucous membranes Neck Exam: normal inspection Respiratory Exam: normal breath sounds, lungs clear, No crackles/rales, No rhonchi, No wheezing Cardiovascular Exam: regular rate/rhythm, normal heart sounds, No murmur Gastrointestinal/Abdomen Exam: soft, normal bowel sounds, No tenderness, No distention, No mass, No guarding, No rebound Extremity Exam: normal inspection, No pedal edema, No swelling Skin Exam: normal color, warm, dry, No rash Final Diagnosis/Problem List - Final Discharge Diagnosis/Problem (1) Intractable vomiting with nausea Current Visit: Yes Status: Acute Code(s): R11.2 - NAUSEA WITH VOMITING, UNSPECIFIED (2) Upper abdominal pain Current Visit: Yes Status: Resolved Assessment & Plan: Home on PPI. Would like him to have an EGD outpatient. CT abd/pelvis was nonacute. (3) Diabetes mellitus type I Current Visit: Yes Status: Chronic Onset Date: ~05/30/18 (4) Illicit drug use Current Visit: Yes Status: Chronic Onset Date: ~05/30/18 Assessment & Plan: Advised should stay off of substances. [facility] consult if pt will do so. Code(s): F19.90 - OTHER PSYCHOACTIVE SUBSTANCE USE, UNSPECIFIED, UNCOMPLICATED - Discharge Disposition: Home, Self-Care Condition: Stable Prescriptions: New Omeprazole 20 mg PO DAILY #30 capsule. Continue Insulin Glargine,Hum.rec.anlog [Basaglar Kwikpen U-100] 20 unit SQ DAILY #5 insuln.pen Insulin Lispro [Humalog] 5 unit SQ TIDAC 1 Days ml Follow up with: VALENTINA VERONICA [Primary Care Provider] -
[2020-10-21] MEDS: HUMALOG SQ PRN (08:59)
[2020-10-21] MEDS: Lantus Insulin SQ SCH (08:59)
[2020-10-21] MEDS: PROTONIX 40 MG IV IV SCH (09:00)
== END 2020-10-21 11:20 | disposition home or self-care (01) ==
LOC: ED 14:08 → MED SURG 16:50
PROVIDERS: ADMIT Family Medicine; ATTEND Family Medicine
DX: R11.2 Nausea with vomiting, unspecified (principal); R10.10 Upper abdominal pain, unspecified; F19.90 Other psychoactive substance use, unspecified, uncomplicated; E10.69 Type 1 diabetes mellitus with other specified complication
CPT/HCPCS: 0241U; 36000; 36415; 74177; 80053; 80307; 81001; 82150; 82805; 82947; 83036; 83605; 83690; 84484; 85025; 93005; 93041; 96360; 96361; 96374; 96375; 99285; G0378; J1817; J2270; J2405; A9270-GY

== ENCOUNTER 2021-02-07 17:13 | Observation (INO) | payer OTHER ==
[2021-02-07] MEDS ORDERED: Sodium Chloride 0.9% 1000 ML 1,000 ML IV STA (17:29)
[2021-02-07] MEDS ORDERED: Sodium Chloride 0.9% 1000 ML 1,000 ML ONE (17:42)
[2021-02-07 17:47] LABS: A-aADO2 9; ABG HEMOGLOBIN 12.2; ABG POTASSIUM 4.1 (3.5-5.1); ABG SITE LEFT BRACHIAL; ARTERIAL BLOOD GAS BASE EXCESS 12.4 (-2.0-2.0); ARTERIAL BLOOD GAS FIO2 21 %; ARTERIAL BLOOD GAS PCO2 51 mmHg (35-45); ARTERIAL BLOOD GAS PO2 77 mmHg (75-100); ARTERIAL BLOOD GAS pH 7.48 (7.35-7.45); CARBOXYHEMOGLOBIN 1.1 % THgb (0.0-6.9); HGB O2 SAT 95.2 g/dF (94-100); Methhemoglobin 0.9 % (1.4-1.5)
--- NOTE | 2021-02-07 18:01 | ERPHSYRPT ---
- History of Present Illness Time Seen by Provider: 02/07/21 17:25 Source: patient Exam Limitations: no limitations Patient Subjective Stated Complaint: vomiting since yesterday, smoked marijuana yesterday Triage Nursing Assessment: Pt was brought to the ER by his mom, hypertensive, rates abdominal pain as 02/25, just moved back from [place] 2 days ago, is a diabetic and never follows through with going to a doctor, he gets admitted here and then just uses up the script that he gets and then he runs out of meds, skin n/w/d, pulses normal Physician History: Patient is a 35-year-old male presents to emergency department for evaluation of nausea vomiting and abdominal pain. Symptoms started yesterday. Patient states unable to tolerate p.o. Patient advised staff that he is a chronic marijuana user. Patient states he last used marijuana yesterday. Patient was brought to our ED by his mother. Patient additionally complains of periumbilical pain. Pain well localized. No radiation. No trauma no fevers. No diarrhea. Symptoms are mild to moderate in intensity. Patient states that he is originally from the area. However he moved to [place]. Patient returned 2 days ago. 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 He is currently unemployed per patient. Patient states he has a history of diabetes. However he does not follow-up with a primary care doctor. Patient states the only time he takes med ications is if he is being admitted and takes the prescribed medications at discharge time. However with medications were not he does not follow-up for refill. Patient has not taken his medication in some time. Patient denies chest pain. No trauma no fever. Patient voices no other complaints or concerns at this time. Timing/Duration: yesterday Severity: moderate Modifying Factors: Improves With: nothing Associated Symptoms: nausea, vomiting, abdominal pain, No shortness of breath, No diaphoresis, No cough, No chills, No fever, No headaches, No malaise, No syncope, No seizure, No weakness Allergies/Adverse Reactions: No Known Drug Allergies Allergy (Verified 02/07/21 17:30) Hx Tetanus, Diphtheria Vaccination/Date Given: Yes Hx Influenza Vaccination/Date Given: No Hx Pneumococcal Vaccination/Date Given: No Travel Risk - International Travel Have you traveled outside of the country in past 3 weeks: No - Coronavirus Screening Are you exhibiting any of the following symptoms?: No Close contact with a COVID-19 positive Pt in past 14-21 Days: No - Vaccine Status Have you recieved a Covid-19 vaccination: No - Review of Systems Constitutional: No Symptoms Eyes: No Symptoms Ears, Nose, & Throat: No Symptoms Respiratory: No Symptoms, No Cough, No Dyspnea Cardiac: No Symptoms, No Chest Pain, No Edema, No Syncope Abdominal/Gastrointestinal: No Symptoms, No Abdominal Pain, No Nausea, No Vomiting, No Diarrhea Genitourinary Symptoms: No Symptoms, No Dysuria Musculoskeletal: No Symptoms, No Back Pain, No Neck Pain Skin: No Symptoms, No Rash Neurological: No Symptoms, No Dizziness, No Focal Weakness, No Sensory Changes Psychological: No Symptoms Endocrine: No Symptoms Hematologic/Lymphatic: No Symptoms Immunological/Allergic: No Symptoms All Other Systems: Reviewed and Negative - Past Medical History Pertinent Past Medical History: Yes Neurological History: No Pertinent History ENT History: No Pertinent History Cardiac History: No Pertinent History Respiratory History: No Pertinent History Endocrine Medical History: Diabetes Type I Musculoskeletal History: No Pertinent History GI Medical History: No Pertinent History History: No Pertinent History Psycho-Social History: Anxiety, Depression Male Reproductive Disorders: No Pertinent History Other Medical History: DKA - Past Surgical History Past Surgical History: No Neuro Surgical History: No Pertinent History Cardiac: No Pertinent History Respiratory: No Pertinent History Gastrointestinal: No Pertinent History Genitourinary: No Pertinent History Musculoskeletal: No Pertinent History Male Surgical History: No Pertinent History Other Surgical History: . - Social History Smoking Status: Never smoker Exposure to second hand smoke: No Drug Use: marijuana Patient Lives Alone: No - Nursing Vital Signs Nursing Vital Signs: Initial Vital Signs Temperature 97.3 F 02/07/21 17:18 Pulse Rate 104 H 02/07/21 17:18 Blood Pressure 189/122 02/07/21 17:18 O2 Sat by Pulse Oximetry 98 02/07/21 17:18 Pain Scale Pain Intensity 4 - Physical Exam General Appearance: no apparent distress, alert Eye Exam: PERRL/EOMI, eyes nml inspection Ears, Nose, Throat Exam: normal ENT inspection, TMs normal, pharynx normal, moist mucous membranes Neck Exam: normal inspection, non-tender, supple, full range of motion Respiratory Exam: normal breath sounds, lungs clear, airway intact, No respiratory distress Cardiovascular Exam: regular rate/rhythm, normal heart sounds, normal peripheral pulses Gastrointestinal/Abdomen Exam: soft, normal bowel sounds, No tenderness, No mass Back Exam: normal inspection, normal range of motion, No CVA tenderness, No vertebral tenderness Extremity Exam: normal inspection, normal range of motion, pelvis stable Neurologic Exam: alert, oriented x 3, cooperative, normal mood/affect, sensation nml, No motor deficits Skin Exam: normal color, warm, dry, No rash Lymphatic Exam: No adenopathy SpO2 Interpretation: normal SpO2: 99 O2 Delivery: Room Air - Course Nursing assessment & vital signs reviewed: Yes EKG Interpreted by Me: RATE (95), Sinus Rhythm, NORMAL AXIS, NORMAL INTERVALS - CT Exams Abdomen/Pelvis CT Interpretation: Tele-radiologist Report (Acute findings.) Ordered Tests: Active Orders 24 hr Category Date Time Status Diversified Crops Farmer STAT Care 02/07/21 17:30 Active EKG-ER Only STAT Care 02/07/21 17:29 Active IV Insertion STAT Care 02/07/21 17:29 Active Pulse Oximetry (ED) STAT Care 02/07/21 17:29 Active ABDOMEN AND PELVIS W CONTRAST [CT] Stat Exams 02/07/21 19:51 Taken ABG [ARTERIAL BLOOD GASES] Stat Lab 02/07/21 17:38 Completed BLOOD CULTURE Stat Lab 02/07/21 17:54 Received CBC W DIFF Stat Lab 02/07/21 17:30 Completed CMP Stat Lab 02/07/21 17:30 Completed LIPASE Stat Lab 02/07/21 18:23 Completed Lactic Acid Stat Lab 02/07/21 17:35 Completed MAGNESIUM Stat Lab 02/07/21 17:30 Completed POCT GLUCOSE Stat Lab 02/07/21 17:31 Completed TROPONIN Q3H Lab 02/07/21 17:30 Completed TROPONIN Q3H Lab 02/07/21 19:18 Completed TROPONIN Q3H Lab 02/07/21 23:30 Ordered TROPONIN Q3H Lab 02/08/21 02:30 Ordered TROPONIN Q3H Lab 02/08/21 05:30 Ordered UA W/RFX UR CULTURE Stat Lab 02/07/21 17:46 Completed Urine Triage Profile Stat Lab 02/07/21 17:37 Completed Medication Summary Generic Name Dose Route Start Last Admin Trade Name Freq PRN Reason Stop Dose Admin Nitroglycerin/Dextrose 250 mls @ 1.5 mls/hr 02/07/21 20:18 Ntg 0.2mg/Ml In D5w Glass IV 07/22/21 20:17 .Q24H PRN CHEST PAIN Protocol 5 MCG/MIN Discontinued Medications Generic Name Dose Route Start Last Admin Trade Name Kelsie PRN Reason Stop Dose Admin Sodium Chloride 1,000 mls @ 999 mls/hr 02/07/21 17:29 02/07/21 19:15 Sodium Chloride 0.9% 1000 Ml IV 02/07/21 18:29 Infused .Q1H1M STA Infusion Sodium Chloride Confirm 02/07/21 17:42 Sodium Chloride 0.9% 1000 Ml Administered 02/07/21 17:43 Dose 1,000 mls @ ud .ROUTE .STK-MED ONE Labetalol HCl 10 mg 02/07/21 20:45 02/07/21 21:08 Trandate 20 Mg/4 Ml Syringe IV 02/07/21 20:46 10 mg STAT ONE Administration Labetalol HCl Confirm 02/07/21 21:07 Trandate 20 Mg/4 Ml Syringe Administered 02/07/21 21:08 Dose 20 mg IV .STK-MED ONE Ondansetron HCl 4 mg 02/07/21 18:09 02/07/21 18:30 Zofran 4 Mg/2 Ml Vial IV 02/07/21 18:10 4 mg STAT ONE Administration Ondansetron HCl Confirm 02/07/21 18:28 Zofran 4 Mg/2 Ml Vial Administered 02/07/21 18:29 Dose 4 mg .ROUTE .STK-MED ONE Lab/Rad Data: Laboratory Result Diagrams 02/07/21 17:30 02/07/21 17:30 Laboratory Results 02/07/21 02/07/21 02/07/21 Range/Units 20:58 19:18 18:23 WBC (4.0-10.5) K/mm3 RBC (4.1-5.6) M/mm3 Hgb (12.5-18.0) gm/dl Hct (42-50) % MCV (78-100) fl MCH (26-32) pg MCHC (32-36) g/dl RDW (11.5-14.0) % Plt Count (150-450) K/mm3 MPV (7.5-11.0) fl Gran % (36.0-66.0) % Eos # (Auto) (0-0.5) Absolute Lymphs (auto) (1.0-4.6) Absolute Monos (auto) (0.0-1.3) Lymphocytes % (24.0-44.0) % Monocytes % (0.0-12.0) % Eosinophils % (0.00-5.0) % Basophils % (0.0-0.4) % Absolute Granulocytes (1.4-6.9) Basophils # (0-0.4) Puncture Site pCO2 (35-45) mmHg pO2 (75-100) mmHg Base Excess (-2.0-2.0) O2 Saturation (94-100) g/dF ABG pH (7.35-7.45) ABG HCO3 (22-28) ABG O2 Sat (Measured) (95-100) % Arnaldo Test A-a Gradient a/A Ratio Hemoglobin Carboxyhemoglobin (0.0-6.9) % THgb Methemoglobin (1.4-1.5) % Temperature C POC O2 Flow Rate % Sodium (137-145) mmol/L Potassium (3.5-5.1) mmol/L Chloride (98-107) mmol/L Carbon Dioxide (22-30) mmol/L Anion Gap (5-15) MEQ/L BUN (9-20) mg/dL Creatinine (0.66-1.25) mg/dL Estimated GFR ML/MIN Glucose (74-106) mg/dL POC Glucometer (74 to 106) mg/dL Lactic Acid (0.4-2.0) Calcium (8.4-10.2) mg/dL Magnesium (1.6-2.3) mg/dL Total Bilirubin (0.2-1.3) mg/dL AST (17-59) U/L ALT (0-50) U/L Alkaline Phosphatase (38-126) U/L Troponin I < 0.012 (0.000-0.034) ng/mL Serum Total Protein (6.3-8.2) g/dL Albumin (3.5-5.0) g/dL Lipase < 10 L (23-300) U/L Urine Color (YELLOW) Urine Appearance (CLEAR) Urine pH (5-6) Ur Specific [place] (1.005-1.025) Urine Protein (Negative) Urine Ketones (NEGATIVE) Urine Blood (0-5) Tomas/ul Urine Nitrite (NEGATIVE) Urine Bilirubin (NEGATIVE) Urine Urobilinogen (0-1) mg/dL Ur Leukocyte Esterase (NEGATIVE) Urine WBC (Auto) (0-5) /HPF Urine RBC (Auto) (0-2) /HPF U Epithel Cells (Auto) (FEW) /HPF Urine Bacteria (Auto) (NEGATIVE) /HPF Urine Culture Reflexed (NO) Urine Glucose (NEGATIVE) mg/dL Urine Opiates Level (NEGATIVE) Ur Methadone (NEGATIVE) Urine Barbiturates (NEGATIVE) Ur Phencyclidine (PCP) (NEGATIVE) Urine Amphetamine (NEGATIVE) U Benzodiazepine Level (NEGATIVE) Urine Cocaine (NEGATIVE) Urine Marijuana (THC) (NEGATIVE) SARS-CoV-2 (PCR) NEGATIVE (NEGATIVE) 02/07/21 02/07/21 02/07/21 Range/Units 17:46 17:38 17:37 WBC (4.0-10.5) K/mm3 RBC (4.1-5.6) M/mm3 Hgb (12.5-18.0) gm/dl Hct (42-50) % MCV (78-100) fl MCH (26-32) pg MCHC (32-36) g/dl RDW (11.5-14.0) % Plt Count (150-450) K/mm3 MPV (7.5-11.0) fl Gran % (36.0-66.0) % Eos # (Auto) (0-0.5) Absolute Lymphs (auto) (1.0-4.6) Absolute Monos (auto) (0.0-1.3) Lymphocytes % (24.0-44.0) % Monocytes % (0.0-12.0) % Eosinophils % (0.00-5.0) % Basophils % (0.0-0.4) % Absolute Granulocytes (1.4-6.9) Basophils # (0-0.4) Puncture Site LEFT BRACHIAL pCO2 51 H (35-45) mmHg pO2 77 (75-100) mmHg Base Excess 12.4 H (-2.0-2.0) O2 Saturation 95.2 (94-100) g/dF ABG pH 7.48 H (7.35-7.45) ABG HCO3 38.0 H* (22-28) ABG O2 Sat (Measured) 97.0 (95-100) % Arnaldo Test NOT APPLICABLE A-a Gradient 9 a/A Ratio 0.90 Hemoglobin 12.2 Carboxyhemoglobin 1.1 (0.0-6.9) % THgb Methemoglobin 0.9 L (1.4-1.5) % Temperature 37.0 C POC O2 Flow Rate 21 % Sodium (137-145) mmol/L Potassium 4.1 (3.5-5.1) mmol/L Chloride (98-107) mmol/L Carbon Dioxide (22-30) mmol/L Anion Gap (5-15) MEQ/L BUN (9-20) mg/dL Creatinine (0.66-1.25) mg/dL Estimated GFR ML/MIN Glucose (74-106) mg/dL POC Glucometer (74 to 106) mg/dL Lactic Acid (0.4-2.0) Calcium (8.4-10.2) mg/dL Magnesium (1.6-2.3) mg/dL Total Bilirubin (0.2-1.3) mg/dL AST (17-59) U/L ALT (0-50) U/L Alkaline Phosphatase (38-126) U/L Troponin I (0.000-0.034) ng/mL Serum Total Protein (6.3-8.2) g/dL Albumin (3.5-5.0) g/dL Lipase (23-300) U/L Urine Color YELLOW (YELLOW) Urine Appearance CLOUDY (CLEAR) Urine pH 7.0 (5-6) Ur Specific [place] 1.019 (1.005-1.025) Urine Protein >=500 (Negative) Urine Ketones SMALL (NEGATIVE) Urine Blood SMALL (0-5) Tomas/ul Urine Nitrite NEGATIVE (NEGATIVE) Urine Bilirubin NEGATIVE (NEGATIVE) Urine Urobilinogen NEGATIVE (0-1) mg/dL Ur Leukocyte Esterase NEGATIVE (NEGATIVE) Urine WBC (Auto) 0-2 (0-5) /HPF Urine RBC (Auto) 3-5 (0-2) /HPF U Epithel Cells (Auto) NONE (FEW) /HPF Urine Bacteria (Auto) NONE SEEN (NEGATIVE) /HPF Urine Culture Reflexed NO (NO) Urine Glucose 50 (NEGATIVE) mg/dL Urine Opiates Level NEGATIVE (NEGATIVE) Ur Methadone NEGATIVE (NEGATIVE) Urine Barbiturates NEGATIVE (NEGATIVE) Ur Phencyclidine (PCP) NEGATIVE (NEGATIVE) Urine Amphetamine NEGATIVE (NEGATIVE) U Benzodiazepine Level NEGATIVE (NEGATIVE) Urine Cocaine NEGATIVE (NEGATIVE) Urine Marijuana (THC) POSITIVE (NEGATIVE) SARS-CoV-2 (PCR) (NEGATIVE) 02/07/21 02/07/21 02/07/21 Range/Units 17:35 17:31 17:30 WBC (4.0-10.5) K/mm3 RBC (4.1-5.6) M/mm3 Hgb (12.5-18.0) gm/dl Hct (42-50) % MCV (78-100) fl MCH (26-32) pg MCHC (32-36) g/dl RDW (11.5-14.0) % Plt Count (150-450) K/mm3 MPV (7.5-11.0) fl Gran % (36.0-66.0) % Eos # (Auto) (0-0.5) Absolute Lymphs (auto) (1.0-4.6) Absolute Monos (auto) (0.0-1.3) Lymphocytes % (24.0-44.0) % Monocytes % (0.0-12.0) % Eosinophils % (0.00-5.0) % Basophils % (0.0-0.4) % Absolute Granulocytes (1.4-6.9) Basophils # (0-0.4) Puncture Site pCO2 (35-45) mmHg pO2 (75-100) mmHg Base Excess (-2.0-2.0) O2 Saturation (94-100) g/dF ABG pH (7.35-7.45) ABG HCO3 (22-28) ABG O2 Sat (Measured) (95-100) % Arnaldo Test A-a Gradient a/A Ratio Hemoglobin Carboxyhemoglobin (0.0-6.9) % THgb Methemoglobin (1.4-1.5) % Temperature C POC O2 Flow Rate % Sodium (137-145) mmol/L Potassium (3.5-5.1) mmol/L Chloride (98-107) mmol/L Carbon Dioxide (22-30) mmol/L Anion Gap (5-15) MEQ/L BUN (9-20) mg/dL Creatinine (0.66-1.25) mg/dL Estimated GFR ML/MIN Glucose (74-106) mg/dL POC Glucometer 247 H (74 to 106) mg/dL Lactic Acid 1.0 (0.4-2.0) Calcium (8.4-10.2) mg/dL Magnesium (1.6-2.3) mg/dL Total Bilirubin (0.2-1.3) mg/dL AST (17-59) U/L ALT (0-50) U/L Alkaline Phosphatase (38-126) U/L Troponin I < 0.012 (0.000-0.034) ng/mL Serum Total Protein (6.3-8.2) g/dL Albumin (3.5-5.0) g/dL Lipase (23-300) U/L Urine Color (YELLOW) Urine Appearance (CLEAR) Urine pH (5-6) Ur Specific [place] (1.005-1.025) Urine Protein (Negative) Urine Ketones (NEGATIVE) Urine Blood (0-5) Tomas/ul Urine Nitrite (NEGATIVE) Urine Bilirubin (NEGATIVE) Urine Urobilinogen (0-1) mg/dL Ur Leukocyte Esterase (NEGATIVE) Urine WBC (Auto) (0-5) /HPF Urine RBC (Auto) (0-2) /HPF U Epithel Cells (Auto) (FEW) /HPF Urine Bacteria (Auto) (NEGATIVE) /HPF Urine Culture Reflexed (NO) Urine Glucose (NEGATIVE) mg/dL Urine Opiates Level (NEGATIVE) Ur Methadone (NEGATIVE) Urine Barbiturates (NEGATIVE) Ur Phencyclidine (PCP) (NEGATIVE) Urine Amphetamine (NEGATIVE) U Benzodiazepine Level (NEGATIVE) Urine Cocaine (NEGATIVE) Urine Marijuana (THC) (NEGATIVE) SARS-CoV-2 (PCR) (NEGATIVE) 02/07/21 02/07/21 Range/Units 17:30 17:30 WBC 9.7 (4.0-10.5) K/mm3 RBC 4.33 (4.1-5.6) M/mm3 Hgb 12.7 (12.5-18.0) gm/dl Hct 39.0 L (42-50) % MCV 90.1 (78-100) fl MCH 29.3 (26-32) pg MCHC 32.6 (32-36) g/dl RDW 12.5 (11.5-14.0) % Plt Count 505 H (150-450) K/mm3 MPV 8.6 (7.5-11.0) fl Gran % 76.6 H (36.0-66.0) % Eos # (Auto) 0.36 (0-0.5) Absolute Lymphs (auto) 0.96 L (1.0-4.6) Absolute Monos (auto) 0.90 (0.0-1.3) Lymphocytes % 9.9 L (24.0-44.0) % Monocytes % 9.3 (0.0-12.0) % Eosinophils % 3.7 (0.00-5.0) % Basophils % 0.5 (0.0-0.4) % Absolute Granulocytes 7.43 H (1.4-6.9) Basophils # 0.05 (0-0.4) Puncture Site pCO2 (35-45) mmHg pO2 (75-100) mmHg Base Excess (-2.0-2.0) O2 Saturation (94-100) g/dF ABG pH (7.35-7.45) ABG HCO3 (22-28) ABG O2 Sat (Measured) (95-100) % Arnaldo Test A-a Gradient a/A Ratio Hemoglobin Carboxyhemoglobin (0.0-6.9) % THgb Methemoglobin (1.4-1.5) % Temperature C POC O2 Flow Rate % Sodium 134 L (137-145) mmol/L Potassium 3.9 (3.5-5.1) mmol/L Chloride 87 L (98-107) mmol/L Carbon Dioxide 34 H (22-30) mmol/L Anion Gap 17.2 H (5-15) MEQ/L BUN 26 H (9-20) mg/dL Creatinine 1.44 H (0.66-1.25) mg/dL Estimated GFR 59.3 ML/MIN Glucose 302 H (74-106) mg/dL POC Glucometer (74 to 106) mg/dL Lactic Acid (0.4-2.0) Calcium 10.8 H (8.4-10.2) mg/dL Magnesium 1.8 (1.6-2.3) mg/dL Total Bilirubin 1.30 (0.2-1.3) mg/dL AST 36 (17-59) U/L ALT 27 (0-50) U/L Alkaline Phosphatase 152 H (38-126) U/L Troponin I (0.000-0.034) ng/mL Serum Total Protein 7.9 (6.3-8.2) g/dL Albumin 4.5 (3.5-5.0) g/dL Lipase (23-300) U/L Urine Color (YELLOW) Urine Appearance (CLEAR) Urine pH (5-6) Ur Specific [place] (1.005-1.025) Urine Protein (Negative) Urine Ketones (NEGATIVE) Urine Blood (0-5) Tomas/ul Urine Nitrite (NEGATIVE) Urine Bilirubin (NEGATIVE) Urine Urobilinogen (0-1) mg/dL Ur Leukocyte Esterase (NEGATIVE) Urine WBC (Auto) (0-5) /HPF Urine RBC (Auto) (0-2) /HPF U Epithel Cells (Auto) (FEW) /HPF Urine Bacteria (Auto) (NEGATIVE) /HPF Urine Culture Reflexed (NO) Urine Glucose (NEGATIVE) mg/dL Urine Opiates Level (NEGATIVE) Ur Methadone (NEGATIVE) Urine Barbiturates (NEGATIVE) Ur Phencyclidine (PCP) (NEGATIVE) Urine Amphetamine (NEGATIVE) U Benzodiazepine Level (NEGATIVE) Urine Cocaine (NEGATIVE) Urine Marijuana (THC) (NEGATIVE) SARS-CoV-2 (PCR) (NEGATIVE) - Progress Progress: improved Progress Note: Patient is a 35-year-old male. Patient presents to our ED with complaints of nausea vomiting abdominal pain. CT abdomen pelvis negative. Patient's blood pressure was initially elevated. However patient fell asleep and blood pressure improved. Patient currently feels well. Vital stable. Patient still able to tolerate p.o. He still nauseous. There is a possibility this may be due to excessive marijuana use. Possible cyclic vomiting syndrome. Possible gastroparesis from diabetes. Labetalol administered for blood pressure control. Blood pressure improved significantly. Blood pressure currently 153/76. 10 mg of labetalol administered. Patient agrees to admission [facility] for further evaluation and treatment. 02/07/21 22:12 Discussed with : Hasmukh Will see patient in: hospital (observation) Counseled pt/family regarding: lab results, diagnosis, rad results - Departure Departure Disposition: Observation Clinical Impression: Acute renal injury, Hypertensive emergency, Proteinuria, Thrombocytosis, Non compliance w medication regimen, Abdominal pain, Nausea & vomiting Condition: Stable Critical Care Time: No Referrals: VALENTINA VERONICA [Primary Care Provider] -
[2021-02-07 18:06] LABS: Absolute Neutrophil Ct (ANC) 7.43 (1.4-6.9); BASOPHIL % 0.5 % (0.0-0.4); Basophil (Absolute #) 0.05 (0-0.4); Eosinophil % 3.7 % (0.00-5.0); Eosinophil (Absolute #) 0.36 (0-0.5); Hemoglobin 12.7 gm/dl (12.5-18.0); Lymphocyte (Absolute #) 0.96 (1.0-4.6); Lymphocytes % 9.9 % (24.0-44.0); Mean Cell Volume 90.1 fl (78-100); Mean Corpuscular Hemoglobin 29.3 pg (26-32); Mean Corpuscular Hgb Concent. 32.6 g/dl (32-36); Mean Platelet Volume 8.6 fl (7.5-11.0); Monocytes % 9.3 % (0.0-12.0); Neutrophil % 76.6 % (36.0-66.0); Platelet Count 505 K/mm3 (150-450); Red Blood Count 4.33 M/mm3 (4.1-5.6); Red Cell Distribution Width 12.5 % (11.5-14.0); White Blood Count 9.7 K/mm3 (4.0-10.5)
[2021-02-07] MEDS ORDERED: Zofran 4 MG/2 ML VIAL IV ONE (18:09)
[2021-02-07] MEDS ORDERED: Zofran 4 MG/2 ML VIAL ONE (18:28)
[2021-02-07 18:33] LABS: ALBUMIN 4.5 g/dL (3.5-5.0); ANION GAP 17.2 MEQ/L (5-15); BILIRUBIN,TOTAL 1.3 mg/dL (0.2-1.3); Calcium 10.8 mg/dL (8.4-10.2); Creatinine 1 1.44 mg/dL (0.66-1.25); EST GLOMERULAR FILTRATION RATE 59.3 ML/MIN; MAGNESIUM 1.8 mg/dL (1.6-2.3); Potassium 3.9 mmol/L (3.5-5.1); Total Protein 7.9 g/dL (6.3-8.2)
[2021-02-07 18:58] LABS: Appearance CLOUDY (CLEAR); Bilirubin NEGATIVE (NEGATIVE); Blood SMALL Ery/ul (0-5); Glucose 50 mg/dL (NEGATIVE); Ketones SMALL (NEGATIVE); Leukocyte Esterase NEGATIVE (NEGATIVE); Nitrite NEGATIVE (NEGATIVE); Protein,Urine Dip >=500 (Negative); Specific Gravity 1.019 (1.005-1.025); Urobilinogen NEGATIVE mg/dL (0-1); WBC 0-2 /HPF (0-5)
[2021-02-07 19:12] LABS: Bacteria NONE SEEN /HPF (NEGATIVE)
[2021-02-07] MEDS ORDERED: Ntg 0.2MG/Ml in D5W GLASS*** 250 ML IV PRN (20:18)
[2021-02-07 20:25] LABS: Amphetamine,Urine NEGATIVE (NEGATIVE); Barbiturate,Urine NEGATIVE (NEGATIVE); Benzodiazepine,Urine NEGATIVE (NEGATIVE); Cocaine,Urine NEGATIVE (NEGATIVE); Methadone,Urine NEGATIVE (NEGATIVE); Opiate,Urine NEGATIVE (NEGATIVE); PCP,Urine NEGATIVE (NEGATIVE); THC,Urine POSITIVE (NEGATIVE)
[2021-02-07] MEDS ORDERED: TRANDATE 20 MG/4 ML SYRINGE IV ONE ×2 (20:45→21:07)
[2021-02-07] MEDS ORDERED: Senokot-S Tablet PO PRN (23:15)
[2021-02-07] MEDS ORDERED: TYLENOL 325 MG PO PRN (23:15)
[2021-02-07] MEDS ORDERED: MAALOX ES 30 ML UNIT DOSE PO PRN (23:15)
[2021-02-07] MEDS ORDERED: MILK OF MAGNESIA 30 ML PO PRN (23:15)
[2021-02-08] MEDS: Zofran 4 MG/2 ML VIAL IV PRN ×4 (02:08→21:08)
[2021-02-08 06:07] LABS: Risk Ratio 4.3
[2021-02-08] MEDS ORDERED: Transderm Scop 1.5MG Patch TOP ONE (08:25)
[2021-02-08] MEDS ORDERED: HUMALOG SQ PRN (08:25)
[2021-02-08] MEDS ORDERED: HUMALOG SQ ONE ×2 (08:25→09:44)
--- NOTE | 2021-02-08 08:32 | PCM.HP ---
History of Present Illness - Chief Complaint Chief Complaint: Hypertensive Emergency, Acute renal injury, Proteinuria, N/V, abd pain History of Present Illness: is a 35 year old male pt with DM on insulin who came to ER c/o vomiting and abd pain. He has a long history of such admissions; is very noncompliant with medication including insulin, and has never been to see me as PCP although I always see him in the hospital. In the ER, he c/o N/V/abd pain x 1d; pain was periumbilical and 7/10. He uses THC chronically and this was positive. WBC nl. Renal function somewhat decreased with Cr 1.44 and 500 protein in urine. BP were >200 systolic. He was treated with IV labetalol x 1 in ER and BP has come down. He has continued to have N/V abd pain. CT abd/pelvis in ER was nonacute. He is still c/o 7/10 pain. He is only a fair historian as his nausea does not allow him to have much conversation; he ends our interview with vomiting a moderate amount of liquid into his trashcan. Has a hx THC use, frequently. 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." - Review of Systems Abdominal/Gastrointestinal: Abdominal Pain, Nausea, Vomiting, Diarrhea (several episodes) Psychological: Drug Abuse (THC only; states with respect to methamphetamine "I finally got clean") All Other Systems: Reviewed and Negative Medications & Allergies Home Medications: Home Medication List Insulin NPH Hum/Reg Insulin Hm [Humulin 70-30 Vial] 1 units SQ UD 02/07/21 [History Confirmed 02/07/21] Allergies/Adverse Reactions: Allergies Allergy/AdvReac Type Severity Reaction Status Date / Time No Known Drug Allergies Allergy Verified 02/07/21 17:30 - Past Medical History Past Medical History: Yes Neurological History: No Pertinent History ENT History: No Pertinent History Cardiac History: No Pertinent History Respiratory History: No Pertinent History Endocrine Medical History: Diabetes Type I Musculoskelatal History: No Pertinent History GI Medical History: No Pertinent History History: No Pertinent History Pyscho-Social History: Anxiety, Depression Male Reproductive Disorders: No Pertinent History Comment: DKA. Recalled, pt poor historian, sleeping and refusing to answer most questions with more than head nod or shake - Past Surgical History Past Surgical History: No Neuro Surgical History: No Pertinent History Cardiac History: No Pertinent History Respiratory Surgery: No Pertinent History GI Surgical History: No Pertinent History Genitourinary Surgical Hx: No Pertinent History Musculskeletal Surgical Hx: No Pertinent History Male Surgical History: No Pertinent History Other Surgical History: Recalled, pt poor historian, sleeping and refusing to answer most questions with more than head nod or shake. - Social History Smoking Status: Never smoker Exposure to second hand smoke: No Alcohol: None Drug Use: marijuana - Physical Exam Vital Signs: Vital Signs - 24 hr Temp Pulse Resp BP BP Pulse Ox 02/08/21 08:00 99.1 F 92 H 22 146/79 94 L 02/08/21 04:15 98.3 F 94 H 17 152/85 98 02/07/21 23:55 99.2 F 101 H 16 179/83 96 02/07/21 22:15 99 02/07/21 21:08 105 H 201/118 98 02/07/21 20:09 97 H 220/122 99 02/07/21 19:13 102 H 18 199/117 100 02/07/21 17:46 99 02/07/21 17:18 97.3 F 104 H 189/122 98 General Appearance: moderate distress, alert Neurologic Exam: cooperative, other (eyes closed; answers questions with very short answers) Ears, Nose, Throat Exam: moist mucous membranes Neck Exam: normal inspection Respiratory Exam: lungs clear, diminished breath sounds (good air exchange), No crackles/rales, No rhonchi, No wheezing Cardiovascular Exam: regular rate/rhythm, normal heart sounds, No murmur Gastrointestinal/Abdomen Exam: soft, tenderness (throughout), guarding, No norm al bowel sounds (hypoactive but present), No distention, No mass, No rebound Back Exam: normal inspection, No rash Extremity Exam: normal inspection, No pedal edema, No swelling Skin Exam: normal color, warm, dry, No rash Results - Labs Lab/Micro Results: Lab Results-Last 24 Hours 02/07/21 02/07/21 02/07/21 Range/Units 00:33 17:30 17:30 WBC 9.7 (4.0-10.5) K/mm3 RBC 4.33 (4.1-5.6) M/mm3 Hgb 12.7 (12.5-18.0) gm/dl Hct 39.0 L (42-50) % MCV 90.1 (78-100) fl MCH 29.3 (26-32) pg MCHC 32.6 (32-36) g/dl RDW 12.5 (11.5-14.0) % Plt Count 505 H (150-450) K/mm3 MPV 8.6 (7.5-11.0) fl Gran % 76.6 H (36.0-66.0) % Eos # (Auto) 0.36 (0-0.5) Absolute Lymphs (auto) 0.96 L (1.0-4.6) Absolute Monos (auto) 0.90 (0.0-1.3) Lymphocytes % 9.9 L (24.0-44.0) % Monocytes % 9.3 (0.0-12.0) % Eosinophils % 3.7 (0.00-5.0) % Basophils % 0.5 (0.0-0.4) % Absolute Granulocytes 7.43 H (1.4-6.9) Basophils # 0.05 (0-0.4) Puncture Site pCO2 (35-45) mmHg pO2 (75-100) mmHg Base Excess (-2.0-2.0) O2 Saturation (94-100) g/dF ABG pH (7.35-7.45) ABG HCO3 (22-28) ABG O2 Sat (Measured) (95-100) % Ranaldo Test A-a Gradient a/A Ratio Hemoglobin Carboxyhemoglobin (0.0-6.9) % THgb Methemoglobin (1.4-1.5) % Temperature C POC O2 Flow Rate % Sodium 134 L (137-145) mmol/L Potassium 3.9 (3.5-5.1) mmol/L Chloride 87 L (98-107) mmol/L Carbon Dioxide 34 H (22-30) mmol/L Anion Gap 17.2 H (5-15) MEQ/L BUN 26 H (9-20) mg/dL Creatinine 1.44 H (0.66-1.25) mg/dL Estimated GFR 59.3 ML/MIN Glucose 302 H (74-106) mg/dL POC Glucometer (74 to 106) mg/dL Hemoglobin A1c (4.5-6.0) % Lactic Acid (0.4-2.0) Calcium 10.8 H (8.4-10.2) mg/dL Magnesium 1.8 (1.6-2.3) mg/dL Total Bilirubin 1.30 (0.2-1.3) mg/dL AST 36 (17-59) U/L ALT 27 (0-50) U/L Alkaline Phosphatase 152 H (38-126) U/L Troponin I < 0.012 (0.000-0.034) ng/mL Serum Total Protein 7.9 (6.3-8.2) g/dL Albumin 4.5 (3.5-5.0) g/dL Triglycerides (30-150) mg/dL Cholesterol (50-200) mg/dL LDL Cholesterol (30-100) mg/dL HDL Cholesterol (40-60) mg/dL Heart Disease Risk Ratio Lipase (23-300) U/L Urine Color (YELLOW) Urine Appearance (CLEAR) Urine pH (5-6) Ur Specific [place] (1.005-1.025) Urine Protein (Negative) Urine Ketones (NEGATIVE) Urine Blood (0-5) Tomas/ul Urine Nitrite (NEGATIVE) Urine Bilirubin (NEGATIVE) Urine Urobilinogen (0-1) mg/dL Ur Leukocyte Esterase (NEGATIVE) Urine WBC (Auto) (0-5) /HPF Urine RBC (Auto) (0-2) /HPF U Epithel Cells (Auto) (FEW) /HPF Urine Bacteria (Auto) (NEGATIVE) /HPF Urine Culture Reflexed (NO) Urine Glucose (NEGATIVE) mg/dL Urine Opiates Level (NEGATIVE) Ur Methadone (NEGATIVE) Urine Barbiturates (NEGATIVE) Ur Phencyclidine (PCP) (NEGATIVE) Urine Amphetamine (NEGATIVE) U Benzodiazepine Level (NEGATIVE) Urine Cocaine (NEGATIVE) Urine Marijuana (THC) (NEGATIVE) SARS-CoV-2 (PCR) (NEGATIVE) 02/07/21 02/07/21 02/07/21 Range/Units 17:30 17:31 17:35 WBC (4.0-10.5) K/mm3 RBC (4.1-5.6) M/mm3 Hgb (12.5-18.0) gm/dl Hct (42-50) % MCV (78-100) fl MCH (26-32) pg MCHC (32-36) g/dl RDW (11.5-14.0) % Plt Count (150-450) K/mm3 MPV (7.5-11.0) fl Gran % (36.0-66.0) % Eos # (Auto) (0-0.5) Absolute Lymphs (auto) (1.0-4.6) Absolute Monos (auto) (0.0-1.3) Lymphocytes % (24.0-44.0) % Monocytes % (0.0-12.0) % Eosinophils % (0.00-5.0) % Basophils % (0.0-0.4) % Absolute Granulocytes (1.4-6.9) Basophils # (0-0.4) Puncture Site pCO2 (35-45) mmHg pO2 (75-100) mmHg Base Excess (-2.0-2.0) O2 Saturation (94-100) g/dF ABG pH (7.35-7.45) ABG HCO3 (22-28) ABG O2 Sat (Measured) (95-100) % Arnaldo Test A-a Gradient a/A Ratio Hemoglobin Carboxyhemoglobin (0.0-6.9) % THgb Methemoglobin (1.4-1.5) % Temperature C POC O2 Flow Rate % Sodium (137-145) mmol/L Potassium (3.5-5.1) mmol/L Chloride (98-107) mmol/L Carbon Dioxide (22-30) mmol/L Anion Gap (5-15) MEQ/L BUN (9-20) mg/dL Creatinine (0.66-1.25) mg/dL Estimated GFR ML/MIN Glucose (74-106) mg/dL POC Glucometer 247 H (74 to 106) mg/dL Hemoglobin A1c (4.5-6.0) % Lactic Acid 1.0 (0.4-2.0) Calcium (8.4-10.2) mg/dL Magnesium (1.6-2.3) mg/dL Total Bilirubin (0.2-1.3) mg/dL AST (17-59) U/L ALT (0-50) U/L Alkaline Phosphatase (38-126) U/L Troponin I < 0.012 (0.000-0.034) ng/mL Serum Total Protein (6.3-8.2) g/dL Albumin (3.5-5.0) g/dL Triglycerides (30-150) mg/dL Cholesterol (50-200) mg/dL LDL Cholesterol (30-100) mg/dL HDL Cholesterol (40-60) mg/dL Heart Disease Risk Ratio Lipase (23-300) U/L Urine Color (YELLOW) Urine Appearance (CLEAR) Urine pH (5-6) Ur Specific [place] (1.005-1.025) Urine Protein (Negative) Urine Ketones (NEGATIVE) Urine Blood (0-5) Tomas/ul Urine Nitrite (NEGATIVE) Urine Bilirubin (NEGATIVE) Urine Urobilinogen (0-1) mg/dL Ur Leukocyte Esterase (NEGATIVE) Urine WBC (Auto) (0-5) /HPF Urine RBC (Auto) (0-2) /HPF U Epithel Cells (Auto) (FEW) /HPF Urine Bacteria (Auto) (NEGATIVE) /HPF Urine Culture Reflexed (NO) Urine Glucose (NEGATIVE) mg/dL Urine Opiates Level (NEGATIVE) Ur Methadone (NEGATIVE) Urine Barbiturates (NEGATIVE) Ur Phencyclidine (PCP) (NEGATIVE) Urine Amphetamine (NEGATIVE) U Benzodiazepine Level (NEGATIVE) Urine Cocaine (NEGATIVE) Urine Marijuana (THC) (NEGATIVE) SARS-CoV-2 (PCR) (NEGATIVE) 02/07/21 02/07/21 02/07/21 Range/Units 17:37 17:38 17:46 WBC (4.0-10.5) K/mm3 RBC (4.1-5.6) M/mm3 Hgb (12.5-18.0) gm/dl Hct (42-50) % MCV (78-100) fl MCH (26-32) pg MCHC (32-36) g/dl RDW (11.5-14.0) % Plt Count (150-450) K/mm3 MPV (7.5-11.0) fl Gran % (36.0-66.0) % Eos # (Auto) (0-0.5) Absolute Lymphs (auto) (1.0-4.6) Absolute Monos (auto) (0.0-1.3) Lymphocytes % (24.0-44.0) % Monocytes % (0.0-12.0) % Eosinophils % (0.00-5.0) % Basophils % (0.0-0.4) % Absolute Granulocytes (1.4-6.9) Basophils # (0-0.4) Puncture Site LEFT BRACHIAL pCO2 51 H (35-45) mmHg pO2 77 (75-100) mmHg Base Excess 12.4 H (-2.0-2.0) O2 Saturation 95.2 (94-100) g/dF ABG pH 7.48 H (7.35-7.45) ABG HCO3 38.0 H* (22-28) ABG O2 Sat (Measured) 97.0 (95-100) % Arnaldo Test NOT APPLICABLE A-a Gradient 9 a/A Ratio 0.90 Hemoglobin 12.2 Carboxyhemoglobin 1.1 (0.0-6.9) % THgb Methemoglobin 0.9 L (1.4-1.5) % Temperature 37.0 C POC O2 Flow Rate 21 % Sodium (137-145) mmol/L Potassium 4.1 (3.5-5.1) mmol/L Chloride (98-107) mmol/L Carbon Dioxide (22-30) mmol/L Anion Gap (5-15) MEQ/L BUN (9-20) mg/dL Creatinine (0.66-1.25) mg/dL Estimated GFR ML/MIN Glucose (74-106) mg/dL POC Glucometer (74 to 106) mg/dL Hemoglobin A1c (4.5-6.0) % Lactic Acid (0.4-2.0) Calcium (8.4-10.2) mg/dL Magnesium (1.6-2.3) mg/dL Total Bilirubin (0.2-1.3) mg/dL AST (17-59) U/L ALT (0-50) U/L Alkaline Phosphatase (38-126) U/L Troponin I (0.000-0.034) ng/mL Serum Total Protein (6.3-8.2) g/dL Albumin (3.5-5.0) g/dL Triglycerides (30-150) mg/dL Cholesterol (50-200) mg/dL LDL Cholesterol (30-100) mg/dL HDL Cholesterol (40-60) mg/dL Heart Disease Risk Ratio Lipase (23-300) U/L Urine Color YELLOW (YELLOW) Urine Appearance CLOUDY (CLEAR) Urine pH 7.0 (5-6) Ur Specific [place] 1.019 (1.005-1.025) Urine Protein >=500 (Negative) Urine Ketones SMALL (NEGATIVE) Urine Blood SMALL (0-5) Tomas/ul Urine Nitrite NEGATIVE (NEGATIVE) Urine Bilirubin NEGATIVE (NEGATIVE) Urine Urobilinogen NEGATIVE (0-1) mg/dL Ur Leukocyte Esterase NEGATIVE (NEGATIVE) Urine WBC (Auto) 0-2 (0-5) /HPF Urine RBC (Auto) 3-5 (0-2) /HPF U Epithel Cells (Auto) NONE (FEW) /HPF Urine Bacteria (Auto) NONE SEEN (NEGATIVE) /HPF Urine Culture Reflexed NO (NO) Urine Glucose 50 (NEGATIVE) mg/dL Urine Opiates Level NEGATIVE (NEGATIVE) Ur Methadone NEGATIVE (NEGATIVE) Urine Barbiturates NEGATIVE (NEGATIVE) Ur Phencyclidine (PCP) NEGATIVE (NEGATIVE) Urine Amphetamine NEGATIVE (NEGATIVE) U Benzodiazepine Level NEGATIVE (NEGATIVE) Urine Cocaine NEGATIVE (NEGATIVE) Urine Marijuana (THC) POSITIVE (NEGATIVE) SARS-CoV-2 (PCR) (NEGATIVE) 02/07/21 02/07/21 02/07/21 Range/Units 18:23 19:18 20:58 WBC (4.0-10.5) K/mm3 RBC (4.1-5.6) M/mm3 Hgb (12.5-18.0) gm/dl Hct (42-50) % MCV (78-100) fl MCH (26-32) pg MCHC (32-36) g/dl RDW (11.5-14.0) % Plt Count (150-450) K/mm3 MPV (7.5-11.0) fl Gran % (36.0-66.0) % Eos # (Auto) (0-0.5) Absolute Lymphs (auto) (1.0-4.6) Absolute Monos (auto) (0.0-1.3) Lymphocytes % (24.0-44.0) % Monocytes % (0.0-12.0) % Eosinophils % (0.00-5.0) % Basophils % (0.0-0.4) % Absolute Granulocytes (1.4-6.9) Basophils # (0-0.4) Puncture Site pCO2 (35-45) mmHg pO2 (75-100) mmHg Base Excess (-2.0-2.0) O2 Saturation (94-100) g/dF ABG pH (7.35-7.45) ABG HCO3 (22-28) ABG O2 Sat (Measured) (95-100) % Arnaldo Test A-a Gradient a/A Ratio Hemoglobin Carboxyhemoglobin (0.0-6.9) % THgb Methemoglobin (1.4-1.5) % Temperature C POC O2 Flow Rate % Sodium (137-145) mmol/L Potassium (3.5-5.1) mmol/L Chloride (98-107) mmol/L Carbon Dioxide (22-30) mmol/L Anion Gap (5-15) MEQ/L BUN (9-20) mg/dL Creatinine (0.66-1.25) mg/dL Estimated GFR ML/MIN Glucose (74-106) mg/dL POC Glucometer (74 to 106) mg/dL Hemoglobin A1c (4.5-6.0) % Lactic Acid (0.4-2.0) Calcium (8.4-10.2) mg/dL Magnesium (1.6-2.3) mg/dL Total Bilirubin (0.2-1.3) mg/dL AST (17-59) U/L ALT (0-50) U/L Alkaline Phosphatase (38-126) U/L Troponin I < 0.012 (0.000-0.034) ng/mL Serum Total Protein (6.3-8.2) g/dL Albumin (3.5-5.0) g/dL Triglycerides (30-150) mg/dL Cholesterol (50-200) mg/dL LDL Cholesterol (30-100) mg/dL HDL Cholesterol (40-60) mg/dL Heart Disease Risk Ratio Lipase < 10 L (23-300) U/L Urine Color (YELLOW) Urine Appearance (CLEAR) Urine pH (5-6) Ur Specific [place] (1.005-1.025) Urine Protein (Negative) Urine Ketones (NEGATIVE) Urine Blood (0-5) Tomas/ul Urine Nitrite (NEGATIVE) Urine Bilirubin (NEGATIVE) Urine Urobilinogen (0-1) mg/dL Ur Leukocyte Esterase (NEGATIVE) Urine WBC (Auto) (0-5) /HPF Urine RBC (Auto) (0-2) /HPF U Epithel Cells (Auto) (FEW) /HPF Urine Bacteria (Auto) (NEGATIVE) /HPF Urine Culture Reflexed (NO) Urine Glucose (NEGATIVE) mg/dL Urine Opiates Level (NEGATIVE) Ur Methadone (NEGATIVE) Urine Barbiturates (NEGATIVE) Ur Phencyclidine (PCP) (NEGATIVE) Urine Amphetamine (NEGATIVE) U Benzodiazepine Level (NEGATIVE) Urine Cocaine (NEGATIVE) Urine Marijuana (THC) (NEGATIVE) SARS-CoV-2 (PCR) NEGATIVE (NEGATIVE) 02/08/21 02/08/21 02/08/21 Range/Units 04:20 04:20 07:17 WBC (4.0-10.5) K/mm3 RBC (4.1-5.6) M/mm3 Hgb (12.5-18.0) gm/dl Hct (42-50) % MCV (78-100) fl MCH (26-32) pg MCHC (32-36) g/dl RDW (11.5-14.0) % Plt Count (150-450) K/mm3 MPV (7.5-11.0) fl Gran % (36.0-66.0) % Eos # (Auto) (0-0.5) Absolute Lymphs (auto) (1.0-4.6) Absolute Monos (auto) (0.0-1.3) Lymphocytes % (24.0-44.0) % Monocytes % (0.0-12.0) % Eosinophils % (0.00-5.0) % Basophils % (0.0-0.4) % Absolute Granulocytes (1.4-6.9) Basophils # (0-0.4) Puncture Site pCO2 (35-45) mmHg pO2 (75-100) mmHg Base Excess (-2.0-2.0) O2 Saturation (94-100) g/dF ABG pH (7.35-7.45) ABG HCO3 (22-28) ABG O2 Sat (Measured) (95-100) % Arnaldo Test A-a Gradient a/A Ratio Hemoglobin Carboxyhemoglobin (0.0-6.9) % THgb Methemoglobin (1.4-1.5) % Temperature C POC O2 Flow Rate % Sodium (137-145) mmol/L Potassium (3.5-5.1) mmol/L Chloride (98-107) mmol/L Carbon Dioxide (22-30) mmol/L Anion Gap (5-15) MEQ/L BUN (9-20) mg/dL Creatinine (0.66-1.25) mg/dL Estimated GFR ML/MIN Glucose (74-106) mg/dL POC Glucometer 528 H* (74 to 106) mg/dL Hemoglobin A1c (4.5-6.0) % Lactic Acid (0.4-2.0) Calcium (8.4-10.2) mg/dL Magnesium (1.6-2.3) mg/dL Total Bilirubin (0.2-1.3) mg/dL AST (17-59) U/L ALT (0-50) U/L Alkaline Phosphatase (38-126) U/L Troponin I < 0.012 (0.000-0.034) ng/mL Serum Total Protein (6.3-8.2) g/dL Albumin (3.5-5.0) g/dL Triglycerides 366 H (30-150) mg/dL Cholesterol 251 H (50-200) mg/dL LDL Cholesterol 136 H (30-100) mg/dL HDL Cholesterol 59 (40-60) mg/dL Heart Disease Risk Ratio 4.3 Lipase (23-300) U/L Urine Color (YELLOW) Urine Appearance (CLEAR) Urine pH (5-6) Ur Specific [place] (1.005-1.025) Urine Protein (Negative) Urine Ketones (NEGATIVE) Urine Blood (0-5) Tomas/ul Urine Nitrite (NEGATIVE) Urine Bilirubin (NEGATIVE) Urine Urobilinogen (0-1) mg/dL Ur Leukocyte Esterase (NEGATIVE) Urine WBC (Auto) (0-5) /HPF Urine RBC (Auto) (0-2) /HPF U Epithel Cells (Auto) (FEW) /HPF Urine Bacteria (Auto) (NEGATIVE) /HPF Urine Culture Reflexed (NO) Urine Glucose (NEGATIVE) mg/dL Urine Opiates Level (NEGATIVE) Ur Methadone (NEGATIVE) Urine Barbiturates (NEGATIVE) Ur Phencyclidine (PCP) (NEGATIVE) Urine Amphetamine (NEGATIVE) U Benzodiazepine Level (NEGATIVE) Urine Cocaine (NEGATIVE) Urine Marijuana (THC) (NEGATIVE) SARS-CoV-2 (PCR) (NEGATIVE) 02/08/21 02/08/21 Range/Units 07:55 07:55 WBC (4.0-10.5) K/mm3 RBC (4.1-5.6) M/mm3 Hgb (12.5-18.0) gm/dl Hct (42-50) % MCV (78-100) fl MCH (26-32) pg MCHC (32-36) g/dl RDW (11.5-14.0) % Plt Count (150-450) K/mm3 MPV (7.5-11.0) fl Gran % (36.0-66.0) % Eos # (Auto) (0-0.5) Absolute Lymphs (auto) (1.0-4.6) Absolute Monos (auto) (0.0-1.3) Lymphocytes % (24.0-44.0) % Monocytes % (0.0-12.0) % Eosinophils % (0.00-5.0) % Basophils % (0.0-0.4) % Absolute Granulocytes (1.4-6.9) Basophils # (0-0.4) Puncture Site pCO2 (35-45) mmHg pO2 (75-100) mmHg Base Excess (-2.0-2.0) O2 Saturation (94-100) g/dF ABG pH (7.35-7.45) ABG HCO3 (22-28) ABG O2 Sat (Measured) (95-100) % Arnaldo Test A-a Gradient a/A Ratio Hemoglobin Carboxyhemoglobin (0.0-6.9) % THgb Methemoglobin (1.4-1.5) % Temperature C POC O2 Flow Rate % Sodium (137-145) mmol/L Potassium (3.5-5.1) mmol/L Chloride (98-107) mmol/L Carbon Dioxide (22-30) mmol/L Anion Gap (5-15) MEQ/L BUN (9-20) mg/dL Creatinine (0.66-1.25) mg/dL Estimated GFR ML/MIN Glucose 612 H* (74-106) mg/dL POC Glucometer (74 to 106) mg/dL Hemoglobin A1c 9.34 H (4.5-6.0) % Lactic Acid (0.4-2.0) Calcium (8.4-10.2) mg/dL Magnesium (1.6-2.3) mg/dL Total Bilirubin (0.2-1.3) mg/dL AST (17-59) U/L ALT (0-50) U/L Alkaline Phosphatase (38-126) U/L Troponin I (0.000-0.034) ng/mL Serum Total Protein (6.3-8.2) g/dL Albumin (3.5-5.0) g/dL Triglycerides (30-150) mg/dL Cholesterol (50-200) mg/dL LDL Cholesterol (30-100) mg/dL HDL Cholesterol (40-60) mg/dL Heart Disease Risk Ratio Lipase (23-300) U/L Urine Color (YELLOW) Urine Appearance (CLEAR) Urine pH (5-6) Ur Specific [place] (1.005-1.025) Urine Protein (Negative) Urine Ketones (NEGATIVE) Urine Blood (0-5) Tomas/ul Urine Nitrite (NEGATIVE) Urine Bilirubin (NEGATIVE) Urine Urobilinogen (0-1) mg/dL Ur Leukocyte Esterase (NEGATIVE) Urine WBC (Auto) (0-5) /HPF Urine RBC (Auto) (0-2) /HPF U Epithel Cells (Auto) (FEW) /HPF Urine Bacteria (Auto) (NEGATIVE) /HPF Urine Culture Reflexed (NO) Urine Glucose (NEGATIVE) mg/dL Urine Opiates Level (NEGATIVE) Ur Methadone (NEGATIVE) Urine Barbiturates (NEGATIVE) Ur Phencyclidine (PCP) (NEGATIVE) Urine Amphetamine (NEGATIVE) U Benzodiazepine Level (NEGATIVE) Urine Cocaine (NEGATIVE) Urine Marijuana (THC) (NEGATIVE) SARS-CoV-2 (PCR) (NEGATIVE) Accuchecks Date 02/08/21 Time 07:30 - Radiology Impressions Radiology Exams & Impressions: Radiology Procedures Category Date Time Status ABDOMEN AND PELVIS W CONTRAST [CT] Stat Exams 02/07/21 19:51 Taken - Other Procedures and Tests Respiratory Therapy 02/09/21 05:00 EKG ROUTINE 02/10/21 05:00 EKG ROUTINE Assessment/Plan (1) Intractable vomiting with nausea Current Visit: No Status: Acute Assessment & Plan: Adding scopolamine patch to his zofran. Code(s): R11.2 - NAUSEA WITH VOMITING, UNSPECIFIED (2) Abdominal pain Current Visit: Yes Status: Acute Qualifiers: Abdominal location: generalized Qualified Code(s): R10.84 - Generalized abdominal pain Assessment & Plan: CT nonacute and labs not contributory. Code(s): R10.9 - UNSPECIFIED ABDOMINAL PAIN (3) Acute renal injury Current Visit: Yes Status: Acute Assessment & Plan: recheck labs tomorrow a.m. Code(s): N17.9 - ACUTE KIDNEY FAILURE, UNSPECIFIED (4) Hypertensive emergency Current Visit: Yes Status: Resolved Code(s): I16.1 - HYPERTENSIVE EMERGENCY (5) Diabetes mellitus type I Current Visit: No Status: Chronic Onset Date: ~05/30/18 Qualifiers: Diabetes mellitus complication status: with other specified complication Qualified Code(s): E10.69 - Type 1 diabetes mellitus with other specified complication Assessment & Plan: uncontrolled. Added 75/25 at 20 units BID and mod dose sliding scale. 20 units now for BS >600.
[2021-02-08] MEDS: HUMALOG MIX 75-25 VIAL SQ SCH ×2 (08:37→17:08)
[2021-02-08] MEDS ORDERED: Sodium Chloride 0.9% 1000 ML 1,000 ML IV STA (10:43)
[2021-02-08] MEDS: Lactated Ringers 1,000 ML IV SCH ×2 (12:02→20:14)
[2021-02-08] MEDS: HUMALOG SQ PRN ×2 (12:03→14:54)
--- NOTE | 2021-02-08 16:23 | XRAY ---
Exam: CT of the abdomen and pelvis with IV contrast from 02/07/2021. CTDI: 4.57 mGy Comparison: CT of the abdomen and pelvis with IV contrast from 10/18/2020. Indication: 35-year-old male with nausea and vomiting; history of pancreatitis; no history of prior abdominal surgery. Patient is diabetic and takes insulin. Technique: Post-IV contrast axial images were obtained through the abdomen and pelvis during automated injection of 80 ML's of Isovue 370 contrast material. No oral contrast was given. Reconstructed coronal and sagittal images were created and reviewed. Findings: Prior 5 mm noncalcified, subpleural soft tissue nodule at the posterior lateral right lung base on 10/18/2020 appears smaller measuring about 4 mm in diameter on current axial images #12 and #13. This is encouraging that this represents a nonaggressive process. The remainder of the visualized lung bases appears clear. The liver and spleen appear of unremarkable size and uniform attenuation without mass or intrahepatic biliary duct distention. The gallbladder is mildly distended and reveals no dense calcifications within it. The patient is quite thin. The pancreas appears grossly unremarkable. The adrenal glands appear of normal size without nodularity. Both kidneys are of normal size and shape. Both kidneys function on the delayed images. No renal calculi, renal mass, or hydronephrosis is seen. The abdominal aorta reveals minimal atherosclerotic vascular calcification within the distal abdominal aorta and proximal iliac arteries. No abdominal aortic aneurysm or abnormal retroperitoneal lymphadenopathy is seen. No ventral bowel containing hernia is seen. No free intraperitoneal air is seen. The bowel appears of normal diameter. There is mild increased attenuation within the cecum and ascending colon which may were represent oral contrast or medication. I cannot exclude an appendicolith representing no change from 10/18/2020. There is some mild increased soft tissue density within the anterior subcutaneous tissues of the right hemipelvis which may be due to insulin injections. Correlate clinically. The pelvis reveals no mass, abnormal lymphadenopathy, or free intraperitoneal fluid. The urinary bladder appears unremarkable. I again see some calcified phleboliths within the lower pelvis on each side of midline. I again see some postinflammatory lymph nodes within each groin. The skeleton reveals no acute fracture or aggressive bone lesion. I again see bilateral spondylolysis of L5 without spondylolisthesis. I believe there is partial lumbarization of the upper aspect of the sacrum representing no change. There is this is congenital/developmental. Impression: 1. No acute intra-abdominal or pelvic process is seen. Specifically, I see no evidence of acute pancreatitis. 2. There is some mild increased attenuation within the subcutaneous fat of the anterior right hemipelvis. This is probably due to insulin injections. Correlate clinically. 3. I see no evidence of bowel obstruction or colitis. There is no free intraperitoneal air or free intraperitoneal fluid. 4. Scattered increased attenuation densities are seen within the cecum and ascending colon which may relate to oral contrast or medication. The possibility of an appendicolith on coronal image #49 is not completely excluded. This was previously questioned on the prior study from 10/18/2020 as well. No surrounding inflammatory changes are seen about the appendix. 5. Bilateral spondylolysis of L5 without evidence of spondylolisthesis.
[2021-02-09] MEDS: Lactated Ringers 1,000 ML IV SCH ×3 (03:28→21:38)
[2021-02-09 05:06] LABS: BASOPHIL % 0.3 % (0.0-0.4); Basophil (Absolute #) 0.03 (0-0.4); Eosinophil % 6.1 % (0.00-5.0); Eosinophil (Absolute #) 0.64 (0-0.5); Hematocrit 34.6 % (42-50); Hemoglobin 11.1 gm/dl (12.5-18.0); Lymphocytes % 10.6 % (24.0-44.0); Mean Cell Volume 90.3 fl (78-100); Mean Corpuscular Hgb Concent. 32.1 g/dl (32-36); Mean Platelet Volume 8.1 fl (7.5-11.0); Monocyte (Absolute #) 1.05 (0.0-1.3); Monocytes % 10.1 % (0.0-12.0); Neutrophil % 72.9 % (36.0-66.0); Platelet Count 433 K/mm3 (150-450); Red Blood Count 3.83 M/mm3 (4.1-5.6); Red Cell Distribution Width 12.4 % (11.5-14.0); White Blood Count 10.4 K/mm3 (4.0-10.5)
[2021-02-09 05:21] LABS: ALBUMIN 3.4 g/dL (3.5-5.0); ALKALINE PHOSPHATASE 109 U/L (38-126); ANION GAP 8.8 MEQ/L (5-15); BLOOD UREA NITROGEN 22 mg/dL (9-20); CHLORIDE 94 mmol/L (98-107); Calcium 8.8 mg/dL (8.4-10.2); Carbon Dioxide 34 mmol/L (22-30); Creatinine 1 1.26 mg/dL (0.66-1.25); EST GLOMERULAR FILTRATION RATE > 60.0 ML/MIN; Glucose 165 mg/dL (74-106); Potassium 4.7 mmol/L (3.5-5.1); SGOT/AST 36 U/L (17-59); SGPT/ALT 23 U/L (0-50); SODIUM 131 mmol/L (137-145); Total Protein 6.2 g/dL (6.3-8.2)
--- NOTE | 2021-02-09 08:04 | PCM.NOTE ---
Date and Time: 02/09/21 0802 Subjective Assessment: blood sugar down to 114 overnight, nausea and vomiting is resolved. patient feels hungry, denies any pain or current concerns. Objective Exam General Appearance: no apparent distress, alert Skin Exam: normal color, warm, dry Respiratory Exam: normal breath sounds, lungs clear, No respiratory distress Cardiovascular Exam: regular rate/rhythm, normal heart sounds Gastrointestinal/Abdomen Exam: soft, No tenderness, No mass OBJECTIVE DATA Vital Signs: Vital Signs - 24 hr Temp Pulse Resp BP Pulse Ox 02/09/21 07:38 98.0 F 79 16 168/97 96 02/09/21 04:00 98.2 F 87 16 136/85 97 02/09/21 00:00 98.6 F 86 16 124/75 96 02/08/21 19:58 98.4 F 92 H 18 171/83 98 02/08/21 16:00 97.8 F 86 18 125/63 96 02/08/21 12:00 98.1 F 92 H 18 134/74 96 Pain Assessment - Last Documented Pain Intensity 0 Pain Scale Used 0-10 Pain Scale Intake and Output: Intake & Output 02/06/21 02/07/21 02/08/21 02/09/21 11:59 11:59 11:59 11:59 Intake Total 900 4058 Output Total 1500 Balance -600 4058 Weight 68 kg 70.3 kg Lab Results: Lab Results-Last 24 Hours 02/08/21 02/08/21 02/08/21 Range/Units 07:55 07:55 09:52 WBC (4.0-10.5) K/mm3 RBC (4.1-5.6) M/mm3 Hgb (12.5-18.0) gm/dl Hct (42-50) % MCV (78-100) fl MCH (26-32) pg MCHC (32-36) g/dl RDW (11.5-14.0) % Plt Count (150-450) K/mm3 MPV (7.5-11.0) fl Gran % (36.0-66.0) % Eos # (Auto) (0-0.5) Absolute Lymphs (auto) (1.0-4.6) Absolute Monos (auto) (0.0-1.3) Lymphocytes % (24.0-44.0) % Monocytes % (0.0-12.0) % Eosinophils % (0.00-5.0) % Basophils % (0.0-0.4) % Absolute Granulocytes (1.4-6.9) Basophils # (0-0.4) Sodium (137-145) mmol/L Potassium (3.5-5.1) mmol/L Chloride (98-107) mmol/L Carbon Dioxide (22-30) mmol/L Anion Gap (5-15) MEQ/L BUN (9-20) mg/dL Creatinine (0.66-1.25) mg/dL Estimated GFR ML/MIN Glucose 612 H* (74-106) mg/dL POC Glucometer 593 H* (50 to 500) mg/dL Hemoglobin A1c 9.34 H (4.5-6.0) % Calcium (8.4-10.2) mg/dL Total Bilirubin (0.2-1.3) mg/dL AST (17-59) U/L ALT (0-50) U/L Alkaline Phosphatase (38-126) U/L Serum Total Protein (6.3-8.2) g/dL Albumin (3.5-5.0) g/dL 02/08/21 02/08/21 02/08/21 Range/Units 10:25 11:34 12:43 WBC (4.0-10.5) K/mm3 RBC (4.1-5.6) M/mm3 Hgb (12.5-18.0) gm/dl Hct (42-50) % MCV (78-100) fl MCH (26-32) pg MCHC (32-36) g/dl RDW (11.5-14.0) % Plt Count (150-450) K/mm3 MPV (7.5-11.0) fl Gran % (36.0-66.0) % Eos # (Auto) (0-0.5) Absolute Lymphs (auto) (1.0-4.6) Absolute Monos (auto) (0.0-1.3) Lymphocytes % (24.0-44.0) % Monocytes % (0.0-12.0) % Eosinophils % (0.00-5.0) % Basophils % (0.0-0.4) % Absolute Granulocytes (1.4-6.9) Basophils # (0-0.4) Sodium (137-145) mmol/L Potassium (3.5-5.1) mmol/L Chloride (98-107) mmol/L Carbon Dioxide (22-30) mmol/L Anion Gap (5-15) MEQ/L BUN (9-20) mg/dL Creatinine (0.66-1.25) mg/dL Estimated GFR ML/MIN Glucose (74-106) mg/dL POC Glucometer 579 H* 416 H 315 H (50 to 500) mg/dL Hemoglobin A1c (4.5-6.0) % Calcium (8.4-10.2) mg/dL Total Bilirubin (0.2-1.3) mg/dL AST (17-59) U/L ALT (0-50) U/L Alkaline Phosphatase (38-126) U/L Serum Total Protein (6.3-8.2) g/dL Albumin (3.5-5.0) g/dL 02/08/21 02/08/21 02/08/21 Range/Units 13:35 17:02 20:14 WBC (4.0-10.5) K/mm3 RBC (4.1-5.6) M/mm3 Hgb (12.5-18.0) gm/dl Hct (42-50) % MCV (78-100) fl MCH (26-32) pg MCHC (32-36) g/dl RDW (11.5-14.0) % Plt Count (150-450) K/mm3 MPV (7.5-11.0) fl Gran % (36.0-66.0) % Eos # (Auto) (0-0.5) Absolute Lymphs (auto) (1.0-4.6) Absolute Monos (auto) (0.0-1.3) Lymphocytes % (24.0-44.0) % Monocytes % (0.0-12.0) % Eosinophils % (0.00-5.0) % Basophils % (0.0-0.4) % Absolute Granulocytes (1.4-6.9) Basophils # (0-0.4) Sodium (137-145) mmol/L Potassium (3.5-5.1) mmol/L Chloride (98-107) mmol/L Carbon Dioxide (22-30) mmol/L Anion Gap (5-15) MEQ/L BUN (9-20) mg/dL Creatinine (0.66-1.25) mg/dL Estimated GFR ML/MIN Glucose (74-106) mg/dL POC Glucometer 317 H 132 H 147 H (50 to 500) mg/dL Hemoglobin A1c (4.5-6.0) % Calcium (8.4-10.2) mg/dL Total Bilirubin (0.2-1.3) mg/dL AST (17-59) U/L ALT (0-50) U/L Alkaline Phosphatase (38-126) U/L Serum Total Protein (6.3-8.2) g/dL Albumin (3.5-5.0) g/dL 02/09/21 02/09/21 02/09/21 Range/Units 00:03 04:07 04:35 WBC 10.4 (4.0-10.5) K/mm3 RBC 3.83 L (4.1-5.6) M/mm3 Hgb 11.1 L (12.5-18.0) gm/dl Hct 34.6 L (42-50) % MCV 90.3 (78-100) fl MCH 29.0 (26-32) pg MCHC 32.1 (32-36) g/dl RDW 12.4 (11.5-14.0) % Plt Count 433 (150-450) K/mm3 MPV 8.1 (7.5-11.0) fl Gran % 72.9 H (36.0-66.0) % Eos # (Auto) 0.64 H (0-0.5) Absolute Lymphs (auto) 1.10 (1.0-4.6) Absolute Monos (auto) 1.05 (0.0-1.3) Lymphocytes % 10.6 L (24.0-44.0) % Monocytes % 10.1 (0.0-12.0) % Eosinophils % 6.1 H (0.00-5.0) % Basophils % 0.3 (0.0-0.4) % Absolute Granulocytes 7.60 H (1.4-6.9) Basophils # 0.03 (0-0.4) Sodium (137-145) mmol/L Potassium (3.5-5.1) mmol/L Chloride (98-107) mmol/L Carbon Dioxide (22-30) mmol/L Anion Gap (5-15) MEQ/L BUN (9-20) mg/dL Creatinine (0.66-1.25) mg/dL Estimated GFR ML/MIN Glucose (74-106) mg/dL POC Glucometer 114 H 144 H (50 to 500) mg/dL Hemoglobin A1c (4.5-6.0) % Calcium (8.4-10.2) mg/dL Total Bilirubin (0.2-1.3) mg/dL AST (17-59) U/L ALT (0-50) U/L Alkaline Phosphatase (38-126) U/L Serum Total Protein (6.3-8.2) g/dL Albumin (3.5-5.0) g/dL 02/09/21 02/09/21 Range/Units 04:35 06:52 WBC (4.0-10.5) K/mm3 RBC (4.1-5.6) M/mm3 Hgb (12.5-18.0) gm/dl Hct (42-50) % MCV (78-100) fl MCH (26-32) pg MCHC (32-36) g/dl RDW (11.5-14.0) % Plt Count (150-450) K/mm3 MPV (7.5-11.0) fl Gran % (36.0-66.0) % Eos # (Auto) (0-0.5) Absolute Lymphs (auto) (1.0-4.6) Absolute Monos (auto) (0.0-1.3) Lymphocytes % (24.0-44.0) % Monocytes % (0.0-12.0) % Eosinophils % (0.00-5.0) % Basophils % (0.0-0.4) % Absolute Granulocytes (1.4-6.9) Basophils # (0-0.4) Sodium 131 L (137-145) mmol/L Potassium 4.7 D (3.5-5.1) mmol/L Chloride 94 L (98-107) mmol/L Carbon Dioxide 34 H (22-30) mmol/L Anion Gap 8.8 (5-15) MEQ/L BUN 22 H (9-20) mg/dL Creatinine 1.26 H (0.66-1.25) mg/dL Estimated GFR > 60.0 ML/MIN Glucose 165 H (74-106) mg/dL POC Glucometer 221 H (50 to 500) mg/dL Hemoglobin A1c (4.5-6.0) % Calcium 8.8 D (8.4-10.2) mg/dL Total Bilirubin 0.90 (0.2-1.3) mg/dL AST 36 (17-59) U/L ALT 23 (0-50) U/L Alkaline Phosphatase 109 (38-126) U/L Serum Total Protein 6.2 L (6.3-8.2) g/dL Albumin 3.4 L (3.5-5.0) g/dL Radiology Exams: Radiology Procedures Category Date Time Status ABDOMEN AND PELVIS W CONTRAST [CT] Stat Exams 02/07/21 19:51 Completed Assessment/Plan (1) Intractable vomiting with nausea Current Visit: No Status: Acute Assessment & Plan: improved, will advance diet. blood sugar control is much better since admission Code(s): R11.2 - NAUSEA WITH VOMITING, UNSPECIFIED (2) Diabetes mellitus type I Current Visit: No Status: Chronic Onset Date: ~05/30/18 Qualifiers: Diabetes mellitus complication status: with other specified complication Qualified Code(s): E10.69 - Type 1 diabetes mellitus with other specified complication Assessment & Plan: humalog mix ordered with meals
[2021-02-09] MEDS: HUMALOG MIX 75-25 VIAL SQ SCH ×2 (08:40→18:04)
[2021-02-09] MEDS: Zofran 4 MG/2 ML VIAL IV PRN ×3 (08:50→17:14)
[2021-02-09] MEDS: TRANDATE 20 MG/4 ML SYRINGE IV PRN ×2 (12:16→17:10)
[2021-02-09] MEDS: HUMALOG SQ PRN (12:18)
[2021-02-10] MEDS: Lactated Ringers 1,000 ML IV SCH (04:57)
[2021-02-10 06:07] LABS: BASOPHIL % 0.4 % (0.0-0.4); Basophil (Absolute #) 0.03 (0-0.4); Eosinophil % 5.7 % (0.00-5.0); Eosinophil (Absolute #) 0.41 (0-0.5); Hematocrit 30.8 % (42-50); Hemoglobin 9.8 gm/dl (12.5-18.0); Lymphocytes % 12.6 % (24.0-44.0); Mean Cell Volume 91.1 fl (78-100); Mean Corpuscular Hgb Concent. 31.8 g/dl (32-36); Mean Platelet Volume 8.1 fl (7.5-11.0); Monocyte (Absolute #) 0.83 (0.0-1.3); Monocytes % 11.6 % (0.0-12.0); Neutrophil % 69.7 % (36.0-66.0); Platelet Count 334 K/mm3 (150-450); Red Blood Count 3.38 M/mm3 (4.1-5.6); Red Cell Distribution Width 12.1 % (11.5-14.0); White Blood Count 7.2 K/mm3 (4.0-10.5)
[2021-02-10 06:29] LABS: ALBUMIN 2.7 g/dL (3.5-5.0); ALKALINE PHOSPHATASE 97 U/L (38-126); ANION GAP 8.1 MEQ/L (5-15); BLOOD UREA NITROGEN 13 mg/dL (9-20); CHLORIDE 101 mmol/L (98-107); Calcium 8.4 mg/dL (8.4-10.2); Carbon Dioxide 27 mmol/L (22-30); Creatinine 1 1.02 mg/dL (0.66-1.25); EST GLOMERULAR FILTRATION RATE > 60.0 ML/MIN; Glucose 263 mg/dL (74-106); Potassium 4.5 mmol/L (3.5-5.1); SGOT/AST 38 U/L (17-59); SGPT/ALT 21 U/L (0-50); SODIUM 132 mmol/L (137-145); Total Protein 5.1 g/dL (6.3-8.2)
[2021-02-10 07:30] VITALS: BP 165/94; PULSE 85; O2SAT 97
--- NOTE | 2021-02-10 08:32 | PCM.DS ---
Discharge Summary Date of Admission: 02/07/21 23:12 Admitting Physician: VALENTINA VERONICA Primary Care Provider: VALENTINA VERONICA Allergies Allergies No Known Drug Allergies Allergy (Verified 02/07/21 17:30) Hospital Summary - Hospital Course Hospital Course: Pt is 35 yo male with diabetic (on insulin) and cyclic vomiting who was admitted through the ER for abd pain and vomiting. Admitted for IV fluids and anti- emetics, along with pain meds. Had some blood sugars up to the 600s while here. He does not check his sugars and only takes insulin at home until the rx from his most recent hospital stay is gone. 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 This morning he is eating breakfast. Denies abd pain. He had LLQ pain, throbbing/sharp, all day yesterday; he had never had this before, and now it is resolved. Will be discharged to home on insulin. He states he will really try to come see me in office for his 1 week f/u. - Vitals & Intake/Output Vital Signs: Vital Signs Temperature 98.1 F 02/10/21 07:29 Pulse Rate 85 02/10/21 07:29 Respiratory Rate 16 02/10/21 07:29 Blood Pressure 165/94 02/10/21 07:29 O2 Sat by Pulse Oximetry 97 02/10/21 07:29 Intake & Output: Intake & Output 02/07/21 02/08/21 02/09/21 02/10/21 11:59 11:59 11:59 11:59 Intake Total 900 4058 4192 Output Total 1500 Balance -600 4058 4192 Weight 68 kg 70.3 kg 72 kg - Lab Result Diagrams: 02/10/21 05:55 02/10/21 05:55 Lab Results-Last 24 Hrs: Lab Results-Last 24 Hours 02/09/21 02/09/21 02/09/21 Range/Units 11:38 15:41 20:07 WBC (4.0-10.5) K/mm3 RBC (4.1-5.6) M/mm3 Hgb (12.5-18.0) gm/dl Hct (42-50) % MCV (78-100) fl MCH (26-32) pg MCHC (32-36) g/dl RDW (11.5-14.0) % Plt Count (150-450) K/mm3 MPV (7.5-11.0) fl Gran % (36.0-66.0) % Eos # (Auto) (0-0.5) Absolute Lymphs (auto) (1.0-4.6) Absolute Monos (auto) (0.0-1.3) Lymphocytes % (24.0-44.0) % Monocytes % (0.0-12.0) % Eosinophils % (0.00-5.0) % Basophils % (0.0-0.4) % Absolute Granulocytes (1.4-6.9) Basophils # (0-0.4) Sodium (137-145) mmol/L Potassium (3.5-5.1) mmol/L Chloride (98-107) mmol/L Carbon Dioxide (22-30) mmol/L Anion Gap (5-15) MEQ/L BUN (9-20) mg/dL Creatinine (0.66-1.25) mg/dL Estimated GFR ML/MIN Glucose (74-106) mg/dL POC Glucometer 203 H 120 H 72 L (74 to 106) mg/dL Calcium (8.4-10.2) mg/dL Total Bilirubin (0.2-1.3) mg/dL AST (17-59) U/L ALT (0-50) U/L Alkaline Phosphatase (38-126) U/L Serum Total Protein (6.3-8.2) g/dL Albumin (3.5-5.0) g/dL 02/09/21 02/10/21 02/10/21 Range/Units 23:04 00:01 01:03 WBC (4.0-10.5) K/mm3 RBC (4.1-5.6) M/mm3 Hgb (12.5-18.0) gm/dl Hct (42-50) % MCV (78-100) fl MCH (26-32) pg MCHC (32-36) g/dl RDW (11.5-14.0) % Plt Count (150-450) K/mm3 MPV (7.5-11.0) fl Gran % (36.0-66.0) % Eos # (Auto) (0-0.5) Absolute Lymphs (auto) (1.0-4.6) Absolute Monos (auto) (0.0-1.3) Lymphocytes % (24.0-44.0) % Monocytes % (0.0-12.0) % Eosinophils % (0.00-5.0) % Basophils % (0.0-0.4) % Absolute Granulocytes (1.4-6.9) Basophils # (0-0.4) Sodium (137-145) mmol/L Potassium (3.5-5.1) mmol/L Chloride (98-107) mmol/L Carbon Dioxide (22-30) mmol/L Anion Gap (5-15) MEQ/L BUN (9-20) mg/dL Creatinine (0.66-1.25) mg/dL Estimated GFR ML/MIN Glucose (74-106) mg/dL POC Glucometer 52 L 71 L 125 H (74 to 106) mg/dL Calcium (8.4-10.2) mg/dL Total Bilirubin (0.2-1.3) mg/dL AST (17-59) U/L ALT (0-50) U/L Alkaline Phosphatase (38-126) U/L Serum Total Protein (6.3-8.2) g/dL Albumin (3.5-5.0) g/dL 02/10/21 02/10/21 02/10/21 Range/Units 04:06 05:55 05:55 WBC 7.2 (4.0-10.5) K/mm3 RBC 3.38 L (4.1-5.6) M/mm3 Hgb 9.8 L (12.5-18.0) gm/dl Hct 30.8 L (42-50) % MCV 91.1 (78-100) fl MCH 29.0 (26-32) pg MCHC 31.8 L (32-36) g/dl RDW 12.1 (11.5-14.0) % Plt Count 334 (150-450) K/mm3 MPV 8.1 (7.5-11.0) fl Gran % 69.7 H (36.0-66.0) % Eos # (Auto) 0.41 (0-0.5) Absolute Lymphs (auto) 0.90 L (1.0-4.6) Absolute Monos (auto) 0.83 (0.0-1.3) Lymphocytes % 12.6 L (24.0-44.0) % Monocytes % 11.6 (0.0-12.0) % Eosinophils % 5.7 H (0.00-5.0) % Basophils % 0.4 (0.0-0.4) % Absolute Granulocytes 5.00 (1.4-6.9) Basophils # 0.03 (0-0.4) Sodium 132 L (137-145) mmol/L Potassium 4.5 (3.5-5.1) mmol/L Chloride 101 (98-107) mmol/L Carbon Dioxide 27 (22-30) mmol/L Anion Gap 8.1 (5-15) MEQ/L BUN 13 (9-20) mg/dL Creatinine 1.02 (0.66-1.25) mg/dL Estimated GFR > 60.0 ML/MIN Glucose 263 H (74-106) mg/dL POC Glucometer 111 H (74 to 106) mg/dL Calcium 8.4 (8.4-10.2) mg/dL Total Bilirubin 0.40 (0.2-1.3) mg/dL AST 38 (17-59) U/L ALT 21 (0-50) U/L Alkaline Phosphatase 97 (38-126) U/L Serum Total Protein 5.1 L (6.3-8.2) g/dL Albumin 2.7 L (3.5-5.0) g/dL 02/10/ Range/Units 06:49 WBC (4.0-10.5) K/mm3 RBC (4.1-5.6) M/mm3 Hgb (12.5-18.0) gm/dl Hct (42-50) % MCV (78-100) fl MCH (26-32) pg MCHC (32-36) g/dl RDW (11.5-14.0) % Plt Count (150-450) K/mm3 MPV (7.5-11.0) fl Gran % (36.0-66.0) % Eos # (Auto) (0-0.5) Absolute Lymphs (auto) (1.0-4.6) Absolute Monos (auto) (0.0-1.3) Lymphocytes % (24.0-44.0) % Monocytes % (0.0-12.0) % Eosinophils % (0.00-5.0) % Basophils % (0.0-0.4) % Absolute Granulocytes (1.4-6.9) Basophils # (0-0.4) Sodium (137-145) mmol/L Potassium (3.5-5.1) mmol/L Chloride (98-107) mmol/L Carbon Dioxide (22-30) mmol/L Anion Gap (5-15) MEQ/L BUN (9-20) mg/dL Creatinine (0.66-1.25) mg/dL Estimated GFR ML/MIN Glucose (74-106) mg/dL POC Glucometer 314 H (74 to 106) mg/dL Calcium (8.4-10.2) mg/dL Total Bilirubin (0.2-1.3) mg/dL AST (17-59) U/L ALT (0-50) U/L Alkaline Phosphatase (38-126) U/L Serum Total Protein (6.3-8.2) g/dL Albumin (3.5-5.0) g/dL Micro Results-Entire Visit: Microbiology 02/07/21 17:54 Blood Culture - Preliminary Blood NO GROWTH TO DATE 02/07/21 17:45 Blood Culture - Preliminary Blood NO GROWTH TO DATE Accuchecks Date 02/10/21 Date 02/10/21 Date 02/09/21 Time 01:00 - Procedures and Test Procedures and Tests throughout Hospitalization: Therapy Orders & Screens 02/08/21 01:30 EKG ROUTINE Comment: Diagnosis: Hypertensive emergency 02/09/21 05:00 EKG ROUTINE Comment: Diagnosis: Hypertensive emergency Discharge Exam General Appearance: no apparent distress, alert Neurologic Exam: oriented x 3, cooperative, normal mood/affect, other (fair eye contact) Eye Exam: eyes nml inspection Ears, Nose, Throat Exam: moist mucous membranes Neck Exam: normal inspection Respiratory Exam: normal breath sounds, lungs clear, No crackles/rales, No rhonchi, No wheezing Cardiovascular Exam: regular rate/rhythm, normal heart sounds, No murmur Gastrointestinal/Abdomen Exam: soft, normal bowel sounds, No tenderness, No distention, No mass, No guarding, No rebound Back Exam: normal inspection, No rash Skin Exam: normal color, warm, dry, No rash Final Diagnosis/Problem List - Final Discharge Diagnosis/Problem (1) Intractable vomiting with nausea Current Visit: No Status: Resolved Code(s): R11.2 - NAUSEA WITH VOMITING, UNSPECIFIED (2) Abdominal pain Current Visit: Yes Status: Resolved Code(s): R10.9 - UNSPECIFIED ABDOMINAL PAIN (3) Acute renal injury Current Visit: Yes Status: Resolved Code(s): N17.9 - ACUTE KIDNEY FAILURE, UNSPECIFIED (4) Hypertensive emergency Current Visit: Yes Status: Resolved Assessment & Plan: WIll go ahead and start lisinopril. Code(s): I16.1 - HYPERTENSIVE EMERGENCY (5) Diabetes mellitus type I Current Visit: No Status: Chronic Onset Date: ~05/30/18 - Discharge Disposition: Home, Self-Care Condition: Good Prescriptions: New Insulin Lispro Protamin/Lispro [Humalog Mix 75-25 Vial] 20 unit SQ BID #2 unit Insulin Aspart [Novolog] 10 unit SQ TID PRN 30 Days #1 vial PRN Reason: Hyperglycemia Discontinued Insulin NPH Hum/Reg Insulin Hm [Humulin 70-30 Vial] 1 units SQ UD Follow up with: VALENTINA VERONICA [Primary Care Provider] -
[2021-02-10] MEDS: HUMALOG MIX 75-25 VIAL SQ SCH (09:19)
== END 2021-02-10 10:00 | disposition home or self-care (01) ==
LOC: ED 17:13 → MED SURG 23:12
PROVIDERS: ADMIT Family Medicine; ATTEND Family Medicine
DX: R11.2 Nausea with vomiting, unspecified (principal); R10.9 Unspecified abdominal pain; N17.9 Acute kidney failure, unspecified; I16.1 Hypertensive emergency; E10.9 Type 1 diabetes mellitus without complications; Z79.4 Long term (current) use of insulin
CPT/HCPCS: 36000; 36415; 36600; 74177; 80053; 80061; 80307; 81001; 82375; 82803; 82947; 83036; 83605; 83690; 83721; 83735; 84484; 85025; 87040; 93005; 93041; 93268; 94760; 96360; 96374; 96375; 99285; G0378; U0003; J1817; J2405; A9270-GY

== ENCOUNTER 2021-03-29 20:03 | Observation (INO) | payer OTHER ==
[2021-03-29] MEDS ORDERED: Sodium Chloride 0.9% 1000 ML 1,000 ML IV STA ×2 (20:22→20:24)
[2021-03-29] MEDS ORDERED: Reglan 10 MG/2 ML IV ONE (20:22)
[2021-03-29] MEDS ORDERED: PROTONIX 40 MG IV IV ONE ×2 (20:22→20:27)
[2021-03-29] MEDS ORDERED: Sodium Chloride 0.9% 1000 ML 1,000 ML ONE ×2 (20:27→22:39)
[2021-03-29] MEDS ORDERED: Reglan 10 MG/2 ML ONE (20:27)
[2021-03-29 20:55] LABS: Absolute Neutrophil Ct (ANC) 6.71 (1.4-6.9); BASOPHIL % 0.3 % (0.0-0.4); Basophil (Absolute #) 0.03 (0-0.4); Eosinophil % 4.8 % (0.00-5.0); Eosinophil (Absolute #) 0.43 (0-0.5); Hematocrit 39.6 % (42-50); Hemoglobin 12.8 gm/dl (12.5-18.0); Lymphocyte (Absolute #) 1.01 (1.0-4.6); Lymphocytes % 11.2 % (24.0-44.0); Mean Cell Volume 89.6 fl (78-100); Mean Corpuscular Hgb Concent. 32.3 g/dl (32-36); Mean Platelet Volume 8.9 fl (7.5-11.0); Monocyte (Absolute #) 0.82 (0.0-1.3); Monocytes % 9.1 % (0.0-12.0); Neutrophil % 74.6 % (36.0-66.0); Platelet Count 522 K/mm3 (150-450); Red Blood Count 4.42 M/mm3 (4.1-5.6); Red Cell Distribution Width 12.6 % (11.5-14.0)
[2021-03-29 21:07] LABS: ALKALINE PHOSPHATASE 148 U/L (38-126); AMYLASE 61 U/L (30-110); ANION GAP 18.9 MEQ/L (5-15); BLOOD UREA NITROGEN 29 mg/dL (9-20); CHLORIDE 95 mmol/L (98-107); Calcium 11.1 mg/dL (8.4-10.2); Carbon Dioxide 26 mmol/L (22-30); Creatinine 1 1.37 mg/dL (0.66-1.25); EST GLOMERULAR FILTRATION RATE > 60.0 ML/MIN; Glucose 291 mg/dL (74-106); LIPASE 24 U/L (23-300); Potassium 4.8 mmol/L (3.5-5.1); SGOT/AST 41 U/L (17-59); SGPT/ALT 31 U/L (0-50); SODIUM 135 mmol/L (137-145); Total Protein 7.1 g/dL (6.3-8.2)
[2021-03-29] MEDS ORDERED: TRANDATE 20 MG/4 ML SYRINGE IV ONE ×3 (21:26→22:10)
--- NOTE | 2021-03-29 21:56 | ERPHSYRPT ---
- History of Present Illness Time Seen by Provider: 03/29/21 20:20 Historian: patient Exam Limitations: no limitations Patient Subjective Stated Complaint: pt states he has been vomiting for 2 days, c/o generalized body aches. Triage Nursing Assessment: pt alerta nd oriented, answers questions approp. pt ambualtory with steady gait noted. respirations nonlabored with lungs cta. skin warm and dry. abd soft, nontender to light palpation. bowel sounds hypo. pt dry heaving on arrival to er. Physician History: Patient is a 35-year-old insulin-dependent diabetic who presents with 2 days of nausea and vomiting he also complains of body aches but denies fever chills or sweats he has not lost his sense of smell or taste. Blood sugar on arrival was 252. Patient has a history of frequent episodes of DKA and has problems with compliance. Timing/Duration: yesterday Activities at Onset: none Quality: aching Abdominal Pain Onset Location: generalized abdomen Pain Radiation: no radiation Severity of Pain-Max: mild Severity of Pain-Current: mild Modifying Factors: Improves With: vomiting Associated Symptoms: nausea Previous symptoms: same symptoms as today Allergies/Adverse Reactions: No Known Drug Allergies Allergy (Verified 02/07/21 17:30) Hx Tetanus, Diphtheria Vaccination/Date Given: Yes Hx Influenza Vaccination/Date Given: No Hx Pneumococcal Vaccination/Date Given: No Immunizations Up to Date: Yes Travel Risk - International Travel Have you traveled outside of the country in past 3 weeks: No - Coronavirus Screening Are you exhibiting any of the following symptoms?: Yes Symptoms: Vomiting/Diarrhea, Headaches/Body Aches/Fatigue Close contact with a COVID-19 positive Pt in past 14-21 Days: No - Vaccine Status Have you recieved a Covid-19 vaccination: No - Review of Systems Constitutional: No Fever, No Chills Eyes: No Symptoms Ears, Nose, & Throat: No Symptoms Respiratory: No Cough, No Dyspnea Cardiac: No Chest Pain, No Edema, No Syncope Abdominal/Gastrointestinal: Abdominal Pain, Nausea, Vomiting, No Diarrhea Genitourinary Symptoms: No Dysuria Musculoskeletal: No Back Pain, No Neck Pain Skin: No Rash Neurological: No Dizziness, No Focal Weakness, No Sensory Changes Psychological: No Symptoms Endocrine: No Symptoms All Other Systems: Reviewed and Negative - Past Medical History Pertinent Past Medical History: Yes Neurological History: No Pertinent History ENT History: No Pertinent History Cardiac History: No Pertinent History Respiratory History: No Pertinent History Endocrine Medical History: Diabetes Type I Musculoskeletal History: No Pertinent History GI Medical History: No Pertinent History History: No Pertinent History Psycho-Social History: Anxiety, Depression Male Reproductive Disorders: No Pertinent History Other Medical History: DKA - Past Surgical History Past Surgical History: No Neuro Surgical History: No Pertinent History Cardiac: No Pertinent History Respiratory: No Pertinent History Gastrointestinal: No Pertinent History Genitourinary: No Pertinent History Musculoskeletal: No Pertinent History Male Surgical History: No Pertinent History Other Surgical History: . - Social History Smoking Status: Never smoker Exposure to second hand smoke: No Drug Use: marijuana Patient Lives Alone: No - Nursing Vital Signs Nursing Vital Signs: Initial Vital Signs Temperature 97.4 F 03/29/21 20:09 Pulse Rate 111 H 03/29/21 20:09 Respiratory Rate 20 03/29/21 20:09 Blood Pressure 162/123 03/29/21 20:09 O2 Sat by Pulse Oximetry 97 03/29/21 20:09 Pain Scale Pain Intensity 4 - Physical Exam General Appearance: mild distress, alert Eye Exam: PERRL/EOMI, eyes nml inspection Ears, Nose, Throat Exam: normal ENT inspection, pharynx normal, moist mucous membranes Neck Exam: normal inspection, non-tender, supple, full range of motion Respiratory Exam: normal breath sounds, lungs clear, No respiratory distress Cardiovascular Exam: regular rate/rhythm, normal heart sounds Gastrointestinal/Abdomen Exam: soft, No tenderness, No mass Back Exam: normal inspection, normal range of motion, No CVA tenderness, No vertebral tenderness Extremity Exam: normal inspection, normal range of motion, pelvis stable Neurologic Exam: alert, oriented x 3, cooperative, normal mood/affect, nml cerebellar function, sensation nml, No motor deficits Skin Exam: normal color, warm, dry SpO2: 97 - Course Nursing assessment & vital signs reviewed: Yes EKG Interpreted by Me: RATE (102), Sinus Tach, NORMAL AXIS, Non-specific ST Changes, Other (Repolarization) - CT Exams Abdomen/Pelvis CT Interpretation: Tele-radiologist Report Ordered Tests: Active Orders 24 hr Category Date Time Status EKG-ER Only STAT Care 03/29/21 20:22 Active IV Insertion STAT Care 03/29/21 20:22 Active ABDOMEN AND PELVIS W CONTRAST [CT] Stat Exams 03/29/21 20:22 Taken CHEST 1 VIEW (PORTABLE) Stat Exams 03/29/21 20:22 Taken AMYLASE Stat Lab 03/29/21 20:51 Completed CBC W DIFF Stat Lab 03/29/21 20:51 Completed CMP Stat Lab 03/29/21 20:51 Completed CULTURE,URINE Stat Lab 03/29/21 22:00 Received LIPASE Stat Lab 03/29/21 20:51 Completed Lactic Acid Stat Lab 03/29/21 20:22 Completed Lactic Acid Stat Lab 03/29/21 22:36 Received POCT GLUCOSE Stat Lab 03/29/21 20:14 Completed TROPONIN Q3H Lab 03/29/21 20:53 Completed TROPONIN Q3H Lab 03/29/21 23:30 Ordered TROPONIN Q3H Lab 03/30/21 02:30 Ordered TROPONIN Q3H Lab 03/30/21 05:30 Ordered TROPONIN Q3H Lab 03/30/21 08:30 Ordered UA W/RFX UR CULTURE Stat Lab 03/29/21 22:00 Completed Urine Triage Profile Stat Lab 03/29/21 22:00 Completed Medication Summary Discontinued Medications Generic Name Dose Route Start Last Admin Trade Name Freq PRN Reason Stop Dose Admin Sodium Chloride 1,000 mls @ 999 mls/hr 03/29/21 20:22 03/29/21 20:33 Sodium Chloride 0.9% 1000 Ml IV 03/29/21 21:22 999 mls/hr .Q1H1M STA Administration Sodium Chloride 1,000 mls @ 999 mls/hr 03/29/21 20:24 03/29/21 22:41 Sodium Chloride 0.9% 1000 Ml IV 03/29/21 21:24 999 mls/hr .Q1H1M STA Administration Sodium Chloride Confirm 03/29/21 20:27 Sodium Chloride 0.9% 1000 Ml Administered 03/29/21 20:28 Dose 1,000 mls @ ud .ROUTE .STK-MED ONE Sodium Chloride Confirm 03/29/21 22:39 Sodium Chloride 0.9% 1000 Ml Administered 03/29/21 22:40 Dose 1,000 mls @ ud .ROUTE .STK-MED ONE Labetalol HCl 10 mg 03/29/21 21:26 03/29/21 21:56 Trandate 20 Mg/4 Ml Syringe IV 03/29/21 21:27 10 mg STAT ONE Administration Labetalol HCl Confirm 03/29/21 21:30 Trandate 20 Mg/4 Ml Syringe Administered 03/29/21 21:31 Dose 20 mg IV .STK-MED ONE Labetalol HCl 10 mg 03/29/21 22:10 03/29/21 22:11 Trandate 20 Mg/4 Ml Syringe IV 03/29/21 22:11 10 mg STAT ONE Administration Metoclopramide HCl 10 mg 03/29/21 20:22 03/29/21 20:33 Reglan 10 Mg/2 Ml IV 03/29/21 20:23 10 mg STAT ONE Administration Metoclopramide HCl Confirm 03/29/21 20:27 Reglan 10 Mg/2 Ml Administered 03/29/21 20:28 Dose 10 mg .ROUTE .STK-MED ONE Ondansetron HCl 8 mg 03/29/21 22:18 03/29/21 22:21 Zofran 4 Mg/2 Ml Vial IV 03/29/21 22:19 8 mg STAT ONE Administration Ondansetron HCl Confirm 03/29/21 22:18 Zofran 4 Mg/2 Ml Vial Administered 03/29/21 22:19 Dose 8 mg .ROUTE .STK-MED ONE Pantoprazole Sodium 40 mg 03/29/21 20:22 03/29/21 20:33 Protonix 40 Mg Iv IV 03/29/21 20:23 40 mg STAT ONE Administration Pantoprazole Sodium Confirm 03/29/21 20:27 Protonix 40 Mg Iv Administered 03/29/21 20:28 Dose 40 mg IV .STK-MED ONE Lab/Rad Data: Laboratory Result Diagrams 03/29/21 20:51 03/29/21 20:51 Laboratory Results 03/29/21 03/29/21 03/29/21 Range/Units 22:00 22:00 20:53 WBC (4.0-10.5) K/mm3 RBC (4.1-5.6) M/mm3 Hgb (12.5-18.0) gm/dl Hct (42-50) % MCV (78-100) fl MCH (26-32) pg MCHC (32-36) g/dl RDW (11.5-14.0) % Plt Count (150-450) K/mm3 MPV (7.5-11.0) fl Gran % (36.0-66.0) % Eos # (Auto) (0-0.5) Absolute Lymphs (auto) (1.0-4.6) Absolute Monos (auto) (0.0-1.3) Lymphocytes % (24.0-44.0) % Monocytes % (0.0-12.0) % Eosinophils % (0.00-5.0) % Basophils % (0.0-0.4) % Absolute Granulocytes (1.4-6.9) Basophils # (0-0.4) Sodium (137-145) mmol/L Potassium (3.5-5.1) mmol/L Chloride (98-107) mmol/L Carbon Dioxide (22-30) mmol/L Anion Gap (5-15) MEQ/L BUN (9-20) mg/dL Creatinine (0.66-1.25) mg/dL Estimated GFR ML/MIN Glucose (74-106) mg/dL POC Glucometer (74 to 106) mg/dL Lactic Acid (0.4-2.0) Calcium (8.4-10.2) mg/dL Total Bilirubin (0.2-1.3) mg/dL AST (17-59) U/L ALT (0-50) U/L Alkaline Phosphatase (38-126) U/L Troponin I < 0.012 (0.000-0.034) ng/mL Serum Total Protein (6.3-8.2) g/dL Albumin (3.5-5.0) g/dL Amylase (30-110) U/L Lipase (23-300) U/L Urine Color YELLOW (YELLOW) Urine Appearance SLIGHTLY CLOUDY (CLEAR) Urine pH 5.0 (5-6) Ur Specific Fowler 1.041 (1.005-1.025) Urine Protein >=500 (Negative) Urine Ketones SMALL (NEGATIVE) Urine Blood SMALL (0-5) Tomas/ul Urine Nitrite NEGATIVE (NEGATIVE) Urine Bilirubin NEGATIVE (NEGATIVE) Urine Urobilinogen NEGATIVE (0-1) mg/dL Ur Leukocyte Esterase NEGATIVE (NEGATIVE) Urine WBC (Auto) 3-5 (0-5) /HPF Urine RBC (Auto) 11-15 (0-2) /HPF U Epithel Cells (Auto) NONE (FEW) /HPF Urine Bacteria (Auto) NONE SEEN (NEGATIVE) /HPF Urine Mucus (Auto) SLIGHT (NEGATIVE) /HPF Urine Sperm (Auto) PRESENT (NEGATIVE) /HPF Urine Culture Reflexed YES (NO) Urine Glucose >=500 (NEGATIVE) mg/dL Urine Opiates Level NEGATIVE (NEGATIVE) Ur Methadone NEGATIVE (NEGATIVE) Urine Barbiturates NEGATIVE (NEGATIVE) Ur Phencyclidine (PCP) NEGATIVE (NEGATIVE) Urine Amphetamine NEGATIVE (NEGATIVE) U Benzodiazepine Level NEGATIVE (NEGATIVE) Urine Cocaine NEGATIVE (NEGATIVE) Urine Marijuana (THC) POSITIVE (NEGATIVE) SARS-CoV-2 (PCR) (NEGATIVE) 03/29/21 03/29/21 03/29/21 Range/Units 20:52 20:51 20:51 WBC 9.0 (4.0-10.5) K/mm3 RBC 4.42 (4.1-5.6) M/mm3 Hgb 12.8 (12.5-18.0) gm/dl Hct 39.6 L (42-50) % MCV 89.6 (78-100) fl MCH 29.0 (26-32) pg MCHC 32.3 (32-36) g/dl RDW 12.6 (11.5-14.0) % Plt Count 522 H (150-450) K/mm3 MPV 8.9 (7.5-11.0) fl Gran % 74.6 H (36.0-66.0) % Eos # (Auto) 0.43 (0-0.5) Absolute Lymphs (auto) 1.01 (1.0-4.6) Absolute Monos (auto) 0.82 (0.0-1.3) Lymphocytes % 11.2 L (24.0-44.0) % Monocytes % 9.1 (0.0-12.0) % Eosinophils % 4.8 (0.00-5.0) % Basophils % 0.3 (0.0-0.4) % Absolute Granulocytes 6.71 (1.4-6.9) Basophils # 0.03 (0-0.4) Sodium 135 L (137-145) mmol/L Potassium 4.8 (3.5-5.1) mmol/L Chloride 95 L (98-107) mmol/L Carbon Dioxide 26 (22-30) mmol/L Anion Gap 18.9 H (5-15) MEQ/L BUN 29 H (9-20) mg/dL Creatinine 1.37 H (0.66-1.25) mg/dL Estimated GFR > 60.0 ML/MIN Glucose 291 H (74-106) mg/dL POC Glucometer (74 to 106) mg/dL Lactic Acid (0.4-2.0) Calcium 11.1 H (8.4-10.2) mg/dL Total Bilirubin 1.00 (0.2-1.3) mg/dL AST 41 (17-59) U/L ALT 31 (0-50) U/L Alkaline Phosphatase 148 H (38-126) U/L Troponin I (0.000-0.034) ng/mL Serum Total Protein 7.1 (6.3-8.2) g/dL Albumin 4.0 (3.5-5.0) g/dL Amylase 61 (30-110) U/L Lipase 24 (23-300) U/L Urine Color (YELLOW) Urine Appearance (CLEAR) Urine pH (5-6) Ur Specific Fowler (1.005-1.025) Urine Protein (Negative) Urine Ketones (NEGATIVE) Urine Blood (0-5) Tomas/ul Urine Nitrite (NEGATIVE) Urine Bilirubin (NEGATIVE) Urine Urobilinogen (0-1) mg/dL Ur Leukocyte Esterase (NEGATIVE) Urine WBC (Auto) (0-5) /HPF Urine RBC (Auto) (0-2) /HPF U Epithel Cells (Auto) (FEW) /HPF Urine Bacteria (Auto) (NEGATIVE) /HPF Urine Mucus (Auto) (NEGATIVE) /HPF Urine Sperm (Auto) (NEGATIVE) /HPF Urine Culture Reflexed (NO) Urine Glucose (NEGATIVE) mg/dL Urine Opiates Level (NEGATIVE) Ur Methadone (NEGATIVE) Urine Barbiturates (NEGATIVE) Ur Phencyclidine (PCP) (NEGATIVE) Urine Amphetamine (NEGATIVE) U Benzodiazepine Level (NEGATIVE) Urine Cocaine (NEGATIVE) Urine Marijuana (THC) (NEGATIVE) SARS-CoV-2 (PCR) NEGATIVE (NEGATIVE) 03/29/21 03/29/21 Range/Units 20:22 20:14 WBC (4.0-10.5) K/mm3 RBC (4.1-5.6) M/mm3 Hgb (12.5-18.0) gm/dl Hct (42-50) % MCV (78-100) fl MCH (26-32) pg MCHC (32-36) g/dl RDW (11.5-14.0) % Plt Count (150-450) K/mm3 MPV (7.5-11.0) fl Gran % (36.0-66.0) % Eos # (Auto) (0-0.5) Absolute Lymphs (auto) (1.0-4.6) Absolute Monos (auto) (0.0-1.3) Lymphocytes % (24.0-44.0) % Monocytes % (0.0-12.0) % Eosinophils % (0.00-5.0) % Basophils % (0.0-0.4) % Absolute Granulocytes (1.4-6.9) Basophils # (0-0.4) Sodium (137-145) mmol/L Potassium (3.5-5.1) mmol/L Chloride (98-107) mmol/L Carbon Dioxide (22-30) mmol/L Anion Gap (5-15) MEQ/L BUN (9-20) mg/dL Creatinine (0.66-1.25) mg/dL Estimated GFR ML/MIN Glucose (74-106) mg/dL POC Glucometer 252 H (74 to 106) mg/dL Lactic Acid 2.0 (0.4-2.0) Calcium (8.4-10.2) mg/dL Total Bilirubin (0.2-1.3) mg/dL AST (17-59) U/L ALT (0-50) U/L Alkaline Phosphatase (38-126) U/L Troponin I (0.000-0.034) ng/mL Serum Total Protein (6.3-8.2) g/dL Albumin (3.5-5.0) g/dL Amylase (30-110) U/L Lipase (23-300) U/L Urine Color (YELLOW) Urine Appearance (CLEAR) Urine pH (5-6) Ur Specific Fowler (1.005-1.025) Urine Protein (Negative) Urine Ketones (NEGATIVE) Urine Blood (0-5) Tomas/ul Urine Nitrite (NEGATIVE) Urine Bilirubin (NEGATIVE) Urine Urobilinogen (0-1) mg/dL Ur Leukocyte Esterase (NEGATIVE) Urine WBC (Auto) (0-5) /HPF Urine RBC (Auto) (0-2) /HPF U Epithel Cells (Auto) (FEW) /HPF Urine Bacteria (Auto) (NEGATIVE) /HPF Urine Mucus (Auto) (NEGATIVE) /HPF Urine Sperm (Auto) (NEGATIVE) /HPF Urine Culture Reflexed (NO) Urine Glucose (NEGATIVE) mg/dL Urine Opiates Level (NEGATIVE) Ur Methadone (NEGATIVE) Urine Barbiturates (NEGATIVE) Ur Phencyclidine (PCP) (NEGATIVE) Urine Amphetamine (NEGATIVE) U Benzodiazepine Level (NEGATIVE) Urine Cocaine (NEGATIVE) Urine Marijuana (THC) (NEGATIVE) SARS-CoV-2 (PCR) (NEGATIVE) - Progress Progress: unchanged Discussed with : Marguerite Will see patient in: hospital (observation) - Departure Departure Disposition: Observation Clinical Impression: Gastroparesis Condition: Stable Critical Care Time: No Referrals: VALENTINA VERONICA [Primary Care Provider] -
[2021-03-29] MEDS ORDERED: Zofran 4 MG/2 ML VIAL ONE (22:18)
[2021-03-29] MEDS ORDERED: Zofran 4 MG/2 ML VIAL IV ONE (22:18)
[2021-03-29 22:42] LABS: Appearance SLIGHTLY CLOUDY (CLEAR); Bilirubin NEGATIVE (NEGATIVE); Blood SMALL Ery/ul (0-5); Glucose >=500 mg/dL (NEGATIVE); Ketones SMALL (NEGATIVE); Leukocyte Esterase NEGATIVE (NEGATIVE); Mucus SLIGHT /HPF (NEGATIVE); Nitrite NEGATIVE (NEGATIVE); Protein,Urine Dip >=500 (Negative); Specific Gravity 1.041 (1.005-1.025); Sperm PRESENT /HPF (NEGATIVE); Urobilinogen NEGATIVE mg/dL (0-1)
[2021-03-29 22:43] LABS: Bacteria NONE SEEN /HPF (NEGATIVE)
[2021-03-29 22:58] LABS: Amphetamine,Urine NEGATIVE (NEGATIVE); Barbiturate,Urine NEGATIVE (NEGATIVE); Benzodiazepine,Urine NEGATIVE (NEGATIVE); Cocaine,Urine NEGATIVE (NEGATIVE); Methadone,Urine NEGATIVE (NEGATIVE); Opiate,Urine NEGATIVE (NEGATIVE); PCP,Urine NEGATIVE (NEGATIVE); THC,Urine POSITIVE (NEGATIVE)
[2021-03-29] MEDS ORDERED: Zofran 4 MG/2 ML VIAL IV PRN (23:32)
[2021-03-30] MEDS: Sodium Chloride 0.9% 1000 ML 1,000 ML IV SCH ×3 (00:42→17:29)
[2021-03-30] MEDS: Trandate 100 MG PO ONE ×2 (01:02→01:11)
[2021-03-30] MEDS ORDERED: TRANDATE 20 MG/4 ML SYRINGE IV ONE (01:06)
[2021-03-30] MEDS: TRANDATE 20 MG/4 ML SYRINGE IV PRN ×2 (01:12→02:36)
[2021-03-30] MEDS: HUMALOG SQ PRN ×4 (02:36→21:28)
[2021-03-30 06:04] LABS: ANION GAP 24.8 MEQ/L (5-15); Calcium 9.4 mg/dL (8.4-10.2); Creatinine 1 1.58 mg/dL (0.66-1.25); EST GLOMERULAR FILTRATION RATE 53.3 ML/MIN; Potassium 3.8 mmol/L (3.5-5.1)
[2021-03-30] MEDS: Reglan 10 MG/2 ML IV SCH ×4 (07:38→21:28)
--- NOTE | 2021-03-30 08:46 | XRAY ---
Indication: Abdomen pain and vomiting. Multiple contiguous axial images obtained through the abdomen and pelvis using 80 cc Isovue 370 contrast. Comparison: February 06, 2021. Lung bases are clear. Heart not enlarged. Noncontrasted stomach and bowel loops nonobstructed. Normal appendix. There is now mild diffuse scattered colonic fecal debris throughout. No free fluid/air. Remaining liver, gallbladder, pancreas, spleen, adrenal glands, kidneys, ureters, and bladder are unremarkable. Again very minimal aortoiliac calcifications. No AAA or pathologic retroperitoneal lymphadenopathy. Osseous structures intact again with bilateral L5 spondylolysis without spondylolisthesis. Right lower abdomen wall again demonstrates subcutaneous induration presumed iatrogenic. Impression: 1. New mild diffuse fecal stasis. 2. Stable L5 spondylolysis without spondylolisthesis. 3. Remaining CT abdomen/pelvis with contrast exam is negative.
--- NOTE | 2021-03-30 08:52 | XRAY ---
Indication: Chest pain. Comparison: September 24, 2019. Portable chest again demonstrates normal heart, lungs, and bony thorax with incidental left nipple shadow.
--- NOTE | 2021-03-30 10:12 | XRAY ---
Indication: Elevated lactic acid. Comparison: March 29, 2021. PA/lateral chest again demonstrates normal heart, lungs, and bony thorax.
[2021-03-30] MEDS ORDERED: Novolin 70/30 SQ PRN (10:17)
[2021-03-30] MEDS ORDERED: Lantus Insulin SQ SCH ×2 (11:00→22:00)
[2021-03-30] MEDS: ROCEPHIN 1 Gm-D5w 50 ml Bag** 1 G/50 ML IVPB IV SCH (12:15)
[2021-03-31] MEDS: TRANDATE 20 MG/4 ML SYRINGE IV PRN (03:03)
[2021-03-31] MEDS: Sodium Chloride 0.9% 1000 ML 1,000 ML IV SCH (03:37)
[2021-03-31 03:53] VITALS: PULSE 80; O2SAT 98
[2021-03-31] MEDS ORDERED: HUMULIN R SQ PRN (08:00)
[2021-03-31 08:06] VITALS: BP 163/87
[2021-03-31] MEDS: Reglan 10 MG/2 ML IV SCH (08:27)
[2021-03-31] MEDS: ROCEPHIN 1 Gm-D5w 50 ml Bag** 1 G/50 ML IVPB IV SCH (09:33)
[2021-03-31] MEDS ORDERED: NON-FORMULARY ITEM (Insulin Glargine,Hum.Rec.Anlog [Basaglar Kwikpen U-100] 30 UNIT) SQ SCH (10:00)
== END 2021-03-31 10:20 | disposition home or self-care (01) ==
LOC: ED 20:03 → MED SURG 03-30 00:41
PROVIDERS: ADMIT Family Medicine; ATTEND Family Medicine
DX: E11.65 Type 2 diabetes mellitus with hyperglycemia (principal); R11.2 Nausea with vomiting, unspecified; R10.84 Generalized abdominal pain; Z79.4 Long term (current) use of insulin
CPT/HCPCS: 36000; 36415; 71045; 71046; 74177; 80048; 80053; 80307; 81001; 82150; 82947; 83605; 83690; 84484; 85025; 87086; 93005; 96374; 96375; 96376; 99285; G0378; U0003; J0696; J1815; J1817; J2405; A9270-GY

== ENCOUNTER 2021-04-01 21:43 | Emergency (ER) | payer OTHER ==
[2021-04-01] MEDS ORDERED: Sodium Chloride 0.9% 1000 ML 1,000 ML IV STA (23:08)
[2021-04-01] MEDS ORDERED: Zofran 4 MG/2 ML VIAL IV ONE (23:08)
[2021-04-01] MEDS ORDERED: Pepcid 20 MG VIAL IV ONE ×2 (23:08→23:14)
[2021-04-01] MEDS ORDERED: Protonix 40MG Tablet PO ONE (23:08)
--- NOTE | 2021-04-01 23:08 | ERPHSYRPT ---
- History of Present Illness Time Seen by Provider: 04/01/21 23:05 Source: patient, family Exam Limitations: no limitations Patient Subjective Stated Complaint: . Triage Nursing Assessment: . Physician History: pt had negative testing for Covid symptoms 3 days ago, but now just has vomiting - no abd pain- not short of breath. Abd is nontender to palpation without peritoneal signs or masses. chest is clear. Hx is significant for prior DKA for his Diabetes. Timing/Duration: today Severity: moderate Associated Symptoms: nausea, vomiting, No abdominal pain Allergies/Adverse Reactions: No Known Drug Allergies Allergy (Verified 04/01/21 22:32) Home Medications: Insulin Glargine,Hum.rec.anlog [Basaglar Kwikpen U-100] 30 unit SQ HS 03/30/21 [History] Insulin Lispro [Admelog Solostar] 1 unit SQ TIDWMEALS 03/30/21 [History] Insulin NPH Hum/Reg Insulin Hm [Humulin 70-30 Vial] 1 units SQ ACHS PRN 03/30/21 [History] Hx Tetanus, Diphtheria Vaccination/Date Given: Yes Hx Influenza Vaccination/Date Given: No Hx Pneumococcal Vaccination/Date Given: No Immunizations Up to Date: Yes Travel Risk - International Travel Have you traveled outside of the country in past 3 weeks: No - Coronavirus Screening Are you exhibiting any of the following symptoms?: No Close contact with a COVID-19 positive Pt in past 14-21 Days: No - Vaccine Status Have you recieved a Covid-19 vaccination: No - Review of Systems Constitutional: No Fever, No Chills Eyes: No Symptoms Ears, Nose, & Throat: No Symptoms Respiratory: No Cough, No Dyspnea Cardiac: No Chest Pain, No Edema, No Syncope Abdominal/Gastrointestinal: Nausea, Vomiting, No Abdominal Pain, No Diarrhea Genitourinary Symptoms: No Dysuria Musculoskeletal: No Back Pain, No Neck Pain Skin: No Symptoms, No Rash Neurological: No Dizziness, No Focal Weakness, No Sensory Changes Psychological: No Symptoms Endocrine: No Symptoms Hematologic/Lymphatic: No Symptoms Immunological/Allergic: No Symptoms All Other Systems: Reviewed and Negative - Past Medical History Pertinent Past Medical History: Yes Neurological History: No Pertinent History ENT History: No Pertinent History Cardiac History: Hypertension Respiratory History: No Pertinent History Endocrine Medical History: Diabetes Type I Musculoskeletal History: No Pertinent History GI Medical History: No Pertinent History History: No Pertinent History Psycho-Social History: Anxiety, Depression Male Reproductive Disorders: No Pertinent History Other Medical History: DKA - Past Surgical History Past Surgical History: No Neuro Surgical History: No Pertinent History Cardiac: No Pertinent History Respiratory: No Pertinent History Gastrointestinal: No Pertinent History Genitourinary: No Pertinent History Musculoskeletal: No Pertinent History Male Surgical History: No Pertinent History Other Surgical History: . - Social History Smoking Status: Never smoker Exposure to second hand smoke: No Drug Use: marijuana Patient Lives Alone: Yes - Nursing Vital Signs Nursing Vital Signs: Initial Vital Signs Temperature 98.1 F 04/01/21 21:44 Pulse Rate 115 H 04/01/21 21:44 Respiratory Rate 22 04/01/21 21:44 Blood Pressure 178/117 04/01/21 21:44 O2 Sat by Pulse Oximetry 98 04/01/21 21:44 Pain Scale Pain Intensity 6 - Physical Exam General Appearance: no apparent distress, alert Eye Exam: PERRL/EOMI, eyes nml inspection Ears, Nose, Throat Exam: normal ENT inspection, TMs normal, pharynx normal, moist mucous membranes Neck Exam: normal inspection, non-tender, supple, full range of motion Respiratory Exam: normal breath sounds, lungs clear, No respiratory distress Cardiovascular Exam: regular rate/rhythm, normal heart sounds, normal peripheral pulses Gastrointestinal/Abdomen Exam: soft, normal bowel sounds, No tenderness, No mass Back Exam: normal inspection, normal range of motion, No CVA tenderness, No vertebral tenderness Extremity Exam: normal inspection, normal range of motion, pelvis stable Neurologic Exam: alert, oriented x 3, cooperative, normal mood/affect, nml cerebellar function, nml station & gait, sensation nml, No motor deficits Skin Exam: normal color, warm, dry, No rash Lymphatic Exam: No adenopathy SpO2 Interpretation: normal SpO2: 98 O2 Delivery: Room Air - Course Nursing assessment & vital signs reviewed: Yes Ordered Tests: Active Orders 24 hr Category Date Time Status IV Insertion STAT Care 04/01/21 23:08 Active NPO (ED) STAT Care 04/01/21 23:08 Active AMYLASE Stat Lab 04/01/21 23:29 Completed CBC W DIFF Stat Lab 04/01/21 23:29 Completed CMP Stat Lab 04/01/21 23:29 Completed CULTURE,URINE Stat Lab 04/01/21 23:11 Received LIPASE Stat Lab 04/01/21 23:29 Completed Lactic Acid Stat Lab 04/01/21 23:40 Completed UA W/RFX UR CULTURE Stat Lab 04/01/21 23:11 Completed Medication Summary Generic Name Dose Route Start Last Admin Trade Name Kelsie PRN Reason Stop Dose Admin Sodium Chloride 1,000 mls @ 999 mls/hr 04/02/21 01:37 04/02/21 01:48 Sodium Chloride 0.9% 1000 Ml IV 04/02/21 02:37 999 mls/hr .Q1H1M STA Administration Discontinued Medications Generic Name Dose Route Start Last Admin Trade Name Kelsie PRN Reason Stop Dose Admin Famotidine 20 mg 04/01/21 23:08 04/01/21 23:19 Pepcid 20 Mg Vial IV 04/01/21 23:09 20 mg STAT ONE Administration Famotidine Confirm 04/01/21 23:14 Pepcid 20 Mg Vial Administered 04/01/21 23:15 Dose 20 mg IV .STK-MED ONE Sodium Chloride 1,000 mls @ 999 mls/hr 04/01/21 23:08 04/02/21 01:51 Sodium Chloride 0.9% 1000 Ml IV 04/02/21 00:08 Infused .Q1H1M STA Infusion Sodium Chloride Confirm 04/01/21 23:14 Sodium Chloride 0.9% 1000 Ml Administered 04/01/21 23:15 Dose 1,000 mls @ ud .ROUTE .STK-MED ONE Sodium Chloride 1,000 mls @ 999 mls/hr 04/02/21 00:19 04/02/21 01:51 Sodium Chloride 0.9% 1000 Ml IV 04/02/21 01:19 Infused .Q1H1M STA Infusion Sodium Chloride Confirm 04/02/21 00:44 Sodium Chloride 0.9% 1000 Ml Administered 04/02/21 00:45 Dose 1,000 mls @ ud .ROUTE .STK-MED ONE Sodium Chloride Confirm 04/02/21 01:47 Sodium Chloride 0.9% 1000 Ml Administered 04/02/21 01:48 Dose 1,000 mls @ ud .ROUTE .STK-MED ONE Ondansetron HCl 4 mg 04/01/21 23:08 04/01/21 23:18 Zofran 4 Mg/2 Ml Vial IV 04/01/21 23:09 4 mg STAT ONE Administration Ondansetron HCl Confirm 04/01/21 23:14 Zofran 4 Mg/2 Ml Vial Administered 04/01/21 23:15 Dose 4 mg .ROUTE .STK-MED ONE Ondansetron HCl 4 mg 04/02/21 01:39 04/02/21 01:48 Zofran 4 Mg/2 Ml Vial IV 04/02/21 01:40 4 mg STAT ONE Administration Ondansetron HCl Confirm 04/02/21 01:47 Zofran 4 Mg/2 Ml Vial Administered 04/02/21 01:48 Dose 4 mg .ROUTE .STK-MED ONE Pantoprazole Sodium 40 mg 04/01/21 23:08 04/01/21 23:18 Protonix 40mg Tablet PO 04/01/21 23:09 40 mg STAT ONE Administration Pantoprazole Sodium Confirm 04/01/21 23:14 Protonix 40mg Tablet Administered 04/01/21 23:15 Dose 40 mg .ROUTE .STK-MED ONE Prochlorperazine Edisylate 10 mg 04/02/21 00:23 04/02/21 00:47 Compazine 10 Mg/2 Ml IM 04/02/21 00:24 10 mg STAT ONE Administration Prochlorperazine Edisylate Confirm 04/02/21 00:44 Compazine 10 Mg/2 Ml Administered 04/02/21 00:45 Dose 10 mg .ROUTE .STK-MED ONE Lab/Rad Data: Laboratory Result Diagrams 04/01/21 23:29 04/01/21 23:29 Laboratory Results 04/01/21 04/01/21 04/01/21 Range/Units 23:40 23:29 23:29 WBC 8.7 (4.0-10.5) K/mm3 RBC 4.08 L (4.1-5.6) M/mm3 Hgb 11.9 L (12.5-18.0) gm/dl Hct 36.1 L (42-50) % MCV 88.5 (78-100) fl MCH 29.2 (26-32) pg MCHC 33.0 (32-36) g/dl RDW 12.2 (11.5-14.0) % Plt Count 348 (150-450) K/mm3 MPV 9.0 (7.5-11.0) fl Gran % 90.5 H (36.0-66.0) % Eos # (Auto) 0.13 (0-0.5) Absolute Lymphs (auto) 0.14 L (1.0-4.6) Absolute Monos (auto) 0.55 (0.0-1.3) Lymphocytes % 1.6 L (24.0-44.0) % Monocytes % 6.3 (0.0-12.0) % Eosinophils % 1.5 (0.00-5.0) % Basophils % 0.1 (0.0-0.4) % Absolute Granulocytes 7.89 H (1.4-6.9) Basophils # 0.01 (0-0.4) Sodium 135 L (137-145) mmol/L Potassium 4.0 (3.5-5.1) mmol/L Chloride 100 (98-107) mmol/L Carbon Dioxide 22 (22-30) mmol/L Anion Gap 17.1 H (5-15) MEQ/L BUN 24 H (9-20) mg/dL Creatinine 0.98 (0.66-1.25) mg/dL Estimated GFR > 60.0 ML/MIN Glucose 283 H (74-106) mg/dL Lactic Acid 1.2 (0.4-2.0) Calcium 8.9 (8.4-10.2) mg/dL Total Bilirubin 1.20 (0.2-1.3) mg/dL AST 40 (17-59) U/L ALT 32 (0-50) U/L Alkaline Phosphatase 123 (38-126) U/L Serum Total Protein 6.7 (6.3-8.2) g/dL Albumin 3.6 (3.5-5.0) g/dL Amylase 64 (30-110) U/L Lipase 37 (23-300) U/L Urine Color (YELLOW) Urine Appearance (CLEAR) Urine pH (5-6) Ur Specific [place] (1.005-1.025) Urine Protein (Negative) Urine Ketones (NEGATIVE) Urine Blood (0-5) Tomas/ul Urine Nitrite (NEGATIVE) Urine Bilirubin (NEGATIVE) Urine Urobilinogen (0-1) mg/dL Ur Leukocyte Esterase (NEGATIVE) Urine WBC (Auto) (0-5) /HPF Urine RBC (Auto) (0-2) /HPF U Hyaline Cast (Auto) (0-2) /LPF U Epithel Cells (Auto) (FEW) /HPF Urine Bacteria (Auto) (NEGATIVE) /HPF Urine Mucus (Auto) (NEGATIVE) /HPF Urine Culture Reflexed (NO) Urine Glucose (NEGATIVE) mg/dL Slides for Path Review YES 04/01/21 Range/Units 23:11 WBC (4.0-10.5) K/mm3 RBC (4.1-5.6) M/mm3 Hgb (12.5-18.0) gm/dl Hct (42-50) % MCV (78-100) fl MCH (26-32) pg MCHC (32-36) g/dl RDW (11.5-14.0) % Plt Count (150-450) K/mm3 MPV (7.5-11.0) fl Gran % (36.0-66.0) % Eos # (Auto) (0-0.5) Absolute Lymphs (auto) (1.0-4.6) Absolute Monos (auto) (0.0-1.3) Lymphocytes % (24.0-44.0) % Monocytes % (0.0-12.0) % Eosinophils % (0.00-5.0) % Basophils % (0.0-0.4) % Absolute Granulocytes (1.4-6.9) Basophils # (0-0.4) Sodium (137-145) mmol/L Potassium (3.5-5.1) mmol/L Chloride (98-107) mmol/L Carbon Dioxide (22-30) mmol/L Anion Gap (5-15) MEQ/L BUN (9-20) mg/dL Creatinine (0.66-1.25) mg/dL Estimated GFR ML/MIN Glucose (74-106) mg/dL Lactic Acid (0.4-2.0) Calcium (8.4-10.2) mg/dL Total Bilirubin (0.2-1.3) mg/dL AST (17-59) U/L ALT (0-50) U/L Alkaline Phosphatase (38-126) U/L Serum Total Protein (6.3-8.2) g/dL Albumin (3.5-5.0) g/dL Amylase (30-110) U/L Lipase (23-300) U/L Urine Color YELLOW (YELLOW) Urine Appearance CLEAR (CLEAR) Urine pH 5.0 (5-6) Ur Specific [place] 1.026 (1.005-1.025) Urine Protein >=500 (Negative) Urine Ketones MODERATE (NEGATIVE) Urine Blood SMALL (0-5) Tomas/ul Urine Nitrite NEGATIVE (NEGATIVE) Urine Bilirubin NEGATIVE (NEGATIVE) Urine Urobilinogen NEGATIVE (0-1) mg/dL Ur Leukocyte Esterase NEGATIVE (NEGATIVE) Urine WBC (Auto) 3-5 (0-5) /HPF Urine RBC (Auto) 3-5 (0-2) /HPF U Hyaline Cast (Auto) 0-2 (0-2) /LPF U Epithel Cells (Auto) NONE (FEW) /HPF Urine Bacteria (Auto) RARE (NEGATIVE) /HPF Urine Mucus (Auto) SLIGHT (NEGATIVE) /HPF Urine Culture Reflexed YES (NO) Urine Glucose 150 (NEGATIVE) mg/dL Slides for Path Review - Progress Progress: improved, re-examined Counseled pt/family regarding: lab results, diagnosis, need for follow-up - Departure Departure Disposition: Home Clinical Impression: Nausea & vomiting, Proteinuria, Diabetes mellitus type I Condition: Good Critical Care Time: No Referrals: VALENTINA VERONICA [Primary Care Provider] - Instructions: Nausea and Vomiting, Adult (DC) Additional Instructions: Drink plenty of fluids and monitor your blood sugar the next few days and followup with your Dr. also recheck your [place] pressure with your Dr. We did not find an exact cause for your vomiting so their could still be an undetected condition requiring further workup and treatment and therefore you need followup with your Dr. You are at risk for your Diabetes to get out of control so the followup is important - return meantime if not improving or any other concerns. Prescriptions: Ondansetron ODT 4 MG [Zofran Odt 4 mg] 4 mg PO Q6H PRN PRN #10 tablet PRN Reason: Nausea
[2021-04-01] MEDS ORDERED: Zofran 4 MG/2 ML VIAL ONE (23:14)
[2021-04-01] MEDS ORDERED: Protonix 40MG Tablet ONE (23:14)
[2021-04-01] MEDS ORDERED: Sodium Chloride 0.9% 1000 ML 1,000 ML ONE (23:14)
[2021-04-01 23:32] LABS: Absolute Neutrophil Ct (ANC) 7.89 (1.4-6.9); BASOPHIL % 0.1 % (0.0-0.4); Basophil (Absolute #) 0.01 (0-0.4); Eosinophil % 1.5 % (0.00-5.0); Eosinophil (Absolute #) 0.13 (0-0.5); Hematocrit 36.1 % (42-50); Hemoglobin 11.9 gm/dl (12.5-18.0); Lymphocyte (Absolute #) 0.14 (1.0-4.6); Lymphocytes % 1.6 % (24.0-44.0); Mean Cell Volume 88.5 fl (78-100); Mean Corpuscular Hemoglobin 29.2 pg (26-32); Monocyte (Absolute #) 0.55 (0.0-1.3); Monocytes % 6.3 % (0.0-12.0); Neutrophil % 90.5 % (36.0-66.0); Platelet Count 348 K/mm3 (150-450); Red Blood Count 4.08 M/mm3 (4.1-5.6); Red Cell Distribution Width 12.2 % (11.5-14.0); White Blood Count 8.7 K/mm3 (4.0-10.5)
[2021-04-01 23:38] LABS: Appearance CLEAR (CLEAR); Bacteria RARE /HPF (NEGATIVE); Bilirubin NEGATIVE (NEGATIVE); Blood SMALL Ery/ul (0-5); Glucose 150 mg/dL (NEGATIVE); Hyaline Casts 0-2 /LPF (0-2); Ketones MODERATE (NEGATIVE); Leukocyte Esterase NEGATIVE (NEGATIVE); Mucus SLIGHT /HPF (NEGATIVE); Nitrite NEGATIVE (NEGATIVE); Protein,Urine Dip >=500 (Negative); Specific Gravity 1.026 (1.005-1.025); Urobilinogen NEGATIVE mg/dL (0-1)
[2021-04-01 23:40] LABS: ALBUMIN 3.6 g/dL (3.5-5.0); ALKALINE PHOSPHATASE 123 U/L (38-126); AMYLASE 64 U/L (30-110); ANION GAP 17.1 MEQ/L (5-15); BLOOD UREA NITROGEN 24 mg/dL (9-20); CHLORIDE 100 mmol/L (98-107); Calcium 8.9 mg/dL (8.4-10.2); Carbon Dioxide 22 mmol/L (22-30); Creatinine 1 0.98 mg/dL (0.66-1.25); EST GLOMERULAR FILTRATION RATE > 60.0 ML/MIN; Glucose 283 mg/dL (74-106); LIPASE 37 U/L (23-300); SGOT/AST 40 U/L (17-59); SGPT/ALT 32 U/L (0-50); SODIUM 135 mmol/L (137-145); Total Protein 6.7 g/dL (6.3-8.2)
[2021-04-02 00:17] LABS: Slide Review 1 YES
[2021-04-02] MEDS ORDERED: Sodium Chloride 0.9% 1000 ML 1,000 ML IV STA ×2 (00:19→01:37)
[2021-04-02] MEDS ORDERED: Compazine 10 MG/2 ML IM ONE (00:23)
[2021-04-02 00:25] VITALS: O2SAT 98
[2021-04-02] MEDS ORDERED: Compazine 10 MG/2 ML ONE (00:44)
[2021-04-02] MEDS ORDERED: Sodium Chloride 0.9% 1000 ML 1,000 ML ONE ×2 (00:44→01:47)
[2021-04-02] MEDS ORDERED: Zofran 4 MG/2 ML VIAL IV ONE (01:39)
[2021-04-02] MEDS ORDERED: Zofran 4 MG/2 ML VIAL ONE (01:47)
[2021-04-02 02:38] VITALS: PULSE 78
[2021-04-02 03:03] VITALS: BP 180/95
== END 2021-04-02 03:03 | disposition home or self-care (01) ==
LOC: ED 21:43
DX: R11.2 Nausea with vomiting, unspecified (principal); R80.9 Proteinuria, unspecified
CPT/HCPCS: 36000; 36415; 80053; 81001; 82150; 83605; 83690; 85025; 87086; 96360; 96361; 96372; 96374; 96375; 96376; 99284; J2405; A9270-GY

== ENCOUNTER 2021-08-08 09:16 | Emergency (ER) | payer OTHER ==
[2021-08-08] MEDS ORDERED: PROTONIX 40 MG IV IV ONE (09:59)
[2021-08-08] MEDS ORDERED: Sodium Chloride 0.9% 1000 ML 1,000 ML ONE ×2 (09:59→12:06)
[2021-08-08] MEDS ORDERED: MORPHINE SULFATE 4 MG INJ ONE (09:59)
[2021-08-08] MEDS ORDERED: Zofran 4 MG/2 ML VIAL ONE (09:59)
[2021-08-08] MEDS: Zofran 4 MG/2 ML VIAL IV ONE (10:00)
[2021-08-08] MEDS: MORPHINE SULFATE 4 MG INJ IV ONE (10:00)
[2021-08-08] MEDS: Sodium Chloride 0.9% 1000 ML 1,000 ML IV STA ×2 (10:00→12:06)
[2021-08-08] MEDS: PROTONIX 40 MG IV IV ONE (10:00)
[2021-08-08 10:04] LABS: VBG BASE EXCESS 1.5 (-2.0-2.0); VBG CARBOXYHEMOGLOBIN 1.6 % T HGB (0.0-6.9); VBG HCO3- 27.7 meq/L (22-28); VBG HEMOGLOBIN 12.4; VBG O2 SATURATION 69.7 (95-100); VBG POTASSIUM 5.2 (3.5-5.1); VBG pH 7.36 (7.32-7.42)
[2021-08-08 10:12] LABS: Absolute Neutrophil Ct (ANC) 5.93 (1.4-6.9); BASOPHIL % 0.5 % (0.0-0.4); Basophil (Absolute #) 0.04 (0-0.4); Eosinophil % 3.1 % (0.00-5.0); Eosinophil (Absolute #) 0.23 (0-0.5); Hemoglobin 11.9 gm/dl (12.5-18.0); Lymphocytes % 8.1 % (24.0-44.0); Mean Cell Volume 90.5 fl (78-100); Mean Corpuscular Hemoglobin 29.1 pg (26-32); Mean Corpuscular Hgb Concent. 32.2 g/dl (32-36); Mean Platelet Volume 8.2 fl (7.5-11.0); Monocyte (Absolute #) 0.59 (0.0-1.3); Neutrophil % 80.3 % (36.0-66.0); Platelet Count 485 K/mm3 (150-450); Red Blood Count 4.09 M/mm3 (4.1-5.6); Red Cell Distribution Width 12.3 % (11.5-14.0); White Blood Count 7.4 K/mm3 (4.0-10.5)
[2021-08-08 10:39] LABS: Appearance CLEAR (CLEAR); Bilirubin NEGATIVE (NEGATIVE); Blood NEGATIVE Ery/ul (0-5); Glucose >=500 mg/dL (NEGATIVE); Ketones SMALL (NEGATIVE); Leukocyte Esterase NEGATIVE (NEGATIVE); Nitrite NEGATIVE (NEGATIVE); Protein,Urine Dip >=500 (Negative); Urobilinogen NEGATIVE mg/dL (0-1)
[2021-08-08 10:41] LABS: Bacteria FEW /HPF (NEGATIVE); Epithelial Cells RARE /HPF (FEW)
[2021-08-08 10:43] LABS: ALBUMIN 3.8 g/dL (3.5-5.0); ALKALINE PHOSPHATASE 193 U/L (38-126); ANION GAP 15.5 MEQ/L (5-15); BLOOD UREA NITROGEN 28 mg/dL (9-20); CHLORIDE 95 mmol/L (98-107); Calcium 9.4 mg/dL (8.4-10.2); Carbon Dioxide 26 mmol/L (22-30); EST GLOMERULAR FILTRATION RATE > 60.0 ML/MIN; Glucose 485 mg/dL (74-106); LIPASE 16 U/L (23-300); MAGNESIUM 1.5 mg/dL (1.6-2.3); Potassium 5.5 mmol/L (3.5-5.1); SGOT/AST 40 U/L (17-59); SGPT/ALT 40 U/L (0-50); SODIUM 131 mmol/L (137-145); Total Protein 7.1 g/dL (6.3-8.2)
--- NOTE | 2021-08-08 10:48 | XRAY ---
Indication: Abdominal pain, nausea, and vomiting. Possible diabetic ketoacidosis. Multiple contiguous axial images obtained through the abdomen and pelvis without contrast. Comparison: March 29, 2021. Lung bases remain clear. Heart not enlarged. Noncontrasted stomach and bowel loops nonobstructed again with normal appendix. There remains mild diffuse fecal stasis more than before. No free fluid/air. Remaining liver, gallbladder, pancreas, spleen, adrenal glands, kidneys, ureters, and bladder are unremarkable for noncontrast exam. Again minimal aortoiliac calcifications without AAA. Osseous structures intact again with bilateral L5 spondylolysis without spondylolisthesis. Impression: 1. Worsening mild diffuse fecal stasis. 2. Again incidental L5 spondylolysis without listhesis. 3. Remaining CT abdomen/pelvis without contrast exam is negative.
[2021-08-08] MEDS ORDERED: HUMULIN R ONE ×2 (11:15→13:10)
[2021-08-08] MEDS ORDERED: Magnesium 1 Gm / 100 Ml D5W*** 100 ML IV ONE (11:15)
[2021-08-08] MEDS: HUMULIN R IV ONE ×2 (11:16→13:15)
[2021-08-08] MEDS: Magnesium 1 Gm / 100 Ml D5W*** 100 ML IV ONE (11:17)
--- NOTE | 2021-08-08 11:26 | ERPHSYRPT ---
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 No fever or chills reported. Patient reports blood sugar staying elevated despite taking his insulin for the last few days. Took 15 units prior to arrival. Feels dehydrated, weak fatigued and tired due to inability to hold anything down. Denies any diarrhea. Patient has elevated blood pressure in 200s, denies any headache, dizziness lightheadedness, chest pain palpitations or shortness of breath. Did not take his medications this morning. Timing/Duration: day(s) (2), gradual onset, worse Activities at Onset: rest Quality: cramping, sharpness Abdominal Pain Onset Location: generalized abdomen Pain Radiation: no radiation Severity of Pain-Max: moderate Severity of Pain-Current: moderate Modifying Factors: Worsens With: vomiting Associated Symptoms: fatigue, nausea, vomiting, No chest pain, No shortness of breath Previous symptoms: same symptoms as today Allergies/Adverse Reactions: No Known Drug Allergies Allergy (Verified 08/08/21 09:41) Home Medications: Insulin Lispro [Admelog Solostar] 1 unit SQ TIDWMEALS 03/30/21 [History] Insulin NPH Hum/Reg Insulin Hm [Humulin 70-30 Vial] 1 units SQ ACHS PRN 03/30/21 [History] Hx Tetanus, Diphtheria Vaccination/Date Given: Yes Hx Influenza Vaccination/Date Given: No Hx Pneumococcal Vaccination/Date Given: No Travel Risk - International Travel Have you traveled outside of the country in past 3 weeks: No - Coronavirus Screening Are you exhibiting any of the following symptoms?: No - Vaccine Status Have you recieved a Covid-19 vaccination: No - Review of Systems Constitutional: Fatigue, Weakness Eyes: No Symptoms Ears, Nose, & Throat: No Symptoms Respiratory: No Symptoms Cardiac: No Symptoms Abdominal/Gastrointestinal: Abdominal Pain, Nausea, Vomiting Genitourinary Symptoms: No Symptoms Musculoskeletal: No Symptoms Skin: No Symptoms Neurological: No Symptoms Psychological: No Symptoms Hematologic/Lymphatic: No Symptoms Immunological/Allergic: No Symptoms - Past Medical History Pertinent Past Medical History: Yes Neurological History: No Pertinent History ENT History: No Pertinent History Cardiac History: Hypertension Respiratory History: No Pertinent History Endocrine Medical History: Diabetes Type I Musculoskeletal History: No Pertinent History GI Medical History: No Pertinent History History: No Pertinent History Psycho-Social History: Anxiety, Depression Male Reproductive Disorders: No Pertinent History Other Medical History: DKA - Past Surgical History Past Surgical History: No Neuro Surgical History: No Pertinent History Cardiac: No Pertinent History Respiratory: No Pertinent History Gastrointestinal: No Pertinent History Genitourinary: No Pertinent History Musculoskeletal: No Pertinent History Male Surgical History: No Pertinent History Other Surgical History: . - Social History Smoking Status: Never smoker Exposure to second hand smoke: No Drug Use: marijuana Patient Lives Alone: No - Nursing Vital Signs Nursing Vital Signs: Initial Vital Signs Temperature 97.3 F 08/08/21 09:30 Pulse Rate 102 H 08/08/21 09:30 Respiratory Rate 24 08/08/21 09:30 Blood Pressure 216/125 08/08/21 09:30 O2 Sat by Pulse Oximetry 96 08/08/21 09:30 Pain Scale Pain Intensity 0 - Physical Exam General Appearance: no apparent distress, alert Ears, Nose, Throat Exam: normal ENT inspection, TMs normal, pharynx normal, moist mucous membranes Neck Exam: normal inspection, non-tender, supple, full range of motion Respiratory Exam: normal breath sounds, lungs clear Cardiovascular Exam: regular rate/rhythm, normal heart sounds Gastrointestinal/Abdomen Exam: soft, tenderness (Mild generalized without guarding or rebound), No normal bowel sounds (Hypoactive) Extremity Exam: normal inspection, normal range of motion, pelvis stable Neurologic Exam: alert, oriented x 3, 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, 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 as tested SpO2 Interpretation: normal SpO2: 96 O2 Delivery: Room Air Ordered Tests: Active Orders 24 hr Category Date Time Status 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 Press Operator Automatic STAT Care 08/08/21 09:55 Active EKG-ER Only STAT Care 08/08/21 09:54 Active IV Insertion STAT Care 08/08/21 09:54 Active IV Insertion-2nd Peripheral STAT Care 08/08/21 09:54 Active NPO (ED) STAT Care 08/08/21 09:55 Active POCT Glucose Check STAT Care 08/08/21 09:54 Active ABDOMEN AND PELVIS W/0 CONTRAS [CT] Stat Exams 08/08/21 09:56 Completed BLOOD CULTURE Stat Lab 08/08/21 10:13 Received CBC W DIFF Stat Lab 08/08/21 10:00 Completed CMP Stat Lab 08/08/21 10:00 Completed LIPASE Stat Lab 08/08/21 10:00 Completed Lactic Acid Urgent Lab 08/08/21 10:00 Completed MAGNESIUM Stat Lab 08/08/21 10:00 Completed POCT GLUCOSE Stat Lab 08/08/21 10:13 Completed POCT GLUCOSE Stat Lab 08/08/21 11:53 Completed POCT GLUCOSE Stat Lab 08/08/21 13:04 Completed TROPONIN Q3H Lab 08/08/21 10:00 Completed TROPONIN Q3H Lab 08/08/21 13:00 Completed TROPONIN Q3H Lab 08/08/21 16:00 Ordered TROPONIN Q3H Lab 08/08/21 19:00 Ordered TROPONIN Q3H Lab 08/08/21 22:00 Ordered UA W/RFX UR CULTURE Stat Lab 08/08/21 09:57 Completed VENOUS BLOOD GAS Urgent Lab 08/08/21 10:00 Completed Medication Summary Discontinued Medications Generic Name Dose Route Start Last Admin Trade Name Kirkq PRN Reason Stop Dose Admin Sodium Chloride 1,000 mls @ 999 mls/hr 08/08/21 09:54 08/08/21 11:08 Sodium Chloride 0.9% 1000 Ml IV 08/08/21 10:54 Infused .Q1H1M STA Infusion Sodium Chloride Confirm 08/08/21 09:59 Sodium Chloride 0.9% 1000 Ml Administered 08/08/21 10:00 Dose 1,000 mls @ ud .ROUTE .STK-MED ONE Magnesium Sulfate/Dextrose 100 mls @ 200 mls/hr 08/08/21 11:09 08/08/21 11:17 Magnesium 1 Gm / 100 Ml D5w IV 08/08/21 11:38 200 mls/hr STAT ONE Administration Magnesium Sulfate/Dextrose Confirm 08/08/21 11:15 Magnesium 1 Gm / 100 Ml D5w Administered 08/08/21 11:16 Dose 100 mls @ ud IV .STK-MED ONE Sodium Chloride 1,000 mls @ 999 mls/hr 08/08/21 12:05 08/08/21 13:22 Sodium Chloride 0.9% 1000 Ml IV 08/08/21 13:05 Infused .Q1H1M STA Infusion Sodium Chloride Confirm 08/08/21 12:06 Sodium Chloride 0.9% 1000 Ml Administered 08/08/21 12:07 Dose 1,000 mls @ ud .ROUTE .STK-MED ONE Insulin Human Regular 10 unit 08/08/21 11:08 08/08/21 11:16 Insulin Regular, Human 1 Unit IV 08/08/21 11:09 10 unit STAT ONE Administration Insulin Human Regular Confirm 08/08/21 11:15 Insulin Regular, Human 1 Unit Administered 08/08/21 11:16 Dose 10 unit .ROUTE .STK-MED ONE Insulin Human Regular Confirm 08/08/21 13:10 Insulin Regular, Human 1 Unit Administered 08/08/21 13:11 Dose 5 unit .ROUTE .STK-MED ONE Insulin Human Regular 5 unit 08/08/21 13:13 08/08/21 13:15 Insulin Regular, Human 1 Unit IV 08/08/21 13:14 5 unit STAT ONE Administration Labetalol HCl 10 mg 08/08/21 11:58 08/08/21 11:59 Labetalol Hcl 20 Mg/4 Ml Disp.Syringe IV 08/08/21 11:59 10 mg STAT ONE Administration Labetalol HCl Confirm 08/08/21 11:58 Labetalol Hcl 20 Mg/4 Ml Disp.Syringe Administered 08/08/21 11:59 Dose 20 mg IV .STK-MED ONE Metoclopramide HCl 10 mg 08/08/21 12:07 08/08/21 12:08 Metoclopramide Hcl 10 Mg/2 Ml Vial IV 08/08/21 12:08 10 mg STAT ONE Administration Metoclopramide HCl Confirm 08/08/21 12:07 Metoclopramide Hcl 10 Mg/2 Ml Vial Administered 08/08/21 12:08 Dose 10 mg .ROUTE .STK-MED ONE Morphine Sulfate 4 mg 08/08/21 09:55 08/08/21 10:00 Morphine Sulfate 4 Mg/Ml Injection IV 08/08/21 09:56 4 mg STAT ONE Administration Morphine Sulfate Confirm 08/08/21 09:59 Morphine Sulfate 4 Mg/Ml Injection Administered 08/08/21 10:00 Dose 4 mg .ROUTE .STK-MED ONE Ondansetron HCl 4 mg 08/08/21 09:54 08/08/21 10:00 Ondansetron Hcl 4 Mg/2 Ml Vial IV 08/08/21 09:55 4 mg STAT ONE Administration Ondansetron HCl Confirm 08/08/21 09:59 Ondansetron Hcl 4 Mg/2 Ml Vial Administered 08/08/21 10:00 Dose 4 mg .ROUTE .STK-MED ONE Pantoprazole Sodium 40 mg 08/08/21 09:55 08/08/21 10:00 Pantoprazole 40 Mg Vial IV 08/08/21 09:56 40 mg STAT ONE Administration Pantoprazole Sodium Confirm 08/08/21 09:59 Pantoprazole 40 Mg Vial Administered 08/08/21 10:00 Dose 40 mg IV .STK-MED ONE Lab/Rad Data: Laboratory Result Diagrams 08/08/21 10:00 08/08/21 10:00 Laboratory Results 08/08/21 08/08/21 08/08/21 Range/Units 13:04 13:00 11:53 WBC (4.0-10.5) K/mm3 RBC (4.1-5.6) M/mm3 Hgb (12.5-18.0) gm/dl Hct (42-50) % MCV (78-100) fl MCH (26-32) pg MCHC (32-36) g/dl RDW (11.5-14.0) % Plt Count (150-450) K/mm3 MPV (7.5-11.0) fl Gran % (36.0-66.0) % Eos # (Auto) (0-0.5) Absolute Lymphs (auto) (1.0-4.6) Absolute Monos (auto) (0.0-1.3) Lymphocytes % (24.0-44.0) % Monocytes % (0.0-12.0) % Eosinophils % (0.00-5.0) % Basophils % (0.0-0.4) % Absolute Granulocytes (1.4-6.9) Basophils # (0-0.4) pO2/FiO2 Ratio % VBG pH (7.32-7.42) VBG pCO2 at Pat Temp (42-55) mm/Hg VBG pO2 at Pat Temp (25-40) mm/Hg VBG HCO3 (22-28) meq/L VBG O2 Sat (Jalen) (95-100) VBG Base Excess (-2.0-2.0) VBG Hemoglobin VBG Carboxyhemoglobin (0.0-6.9) % T HGB POC Potassium (3.5-5.1) Sodium (137-145) mmol/L Potassium (3.5-5.1) mmol/L Chloride (98-107) mmol/L Carbon Dioxide (22-30) mmol/L Anion Gap (5-15) MEQ/L BUN (9-20) mg/dL Creatinine (0.66-1.25) mg/dL Estimated GFR ML/MIN Glucose (74-106) mg/dL POC Glucometer 290 H 395 H (74 to 106) mg/dL Lactic Acid (0.4-2.0) Calcium (8.4-10.2) mg/dL Magnesium (1.6-2.3) mg/dL Total Bilirubin (0.2-1.3) mg/dL AST (17-59) U/L ALT (0-50) U/L Alkaline Phosphatase (38-126) U/L Troponin I < 0.012 (0.000-0.034) ng/mL Serum Total Protein (6.3-8.2) g/dL Albumin (3.5-5.0) g/dL Lipase (23-300) U/L Urine Color (YELLOW) Urine Appearance (CLEAR) Urine pH (5-6) Ur Specific [place] (1.005-1.025) Urine Protein (Negative) Urine Ketones (NEGATIVE) Urine Blood (0-5) Tomas/ul Urine Nitrite (NEGATIVE) Urine Bilirubin (NEGATIVE) Urine Urobilinogen (0-1) mg/dL Ur Leukocyte Esterase (NEGATIVE) Urine WBC (Auto) (0-5) /HPF Urine RBC (Auto) (0-2) /HPF U Epithel Cells (Auto) (FEW) /HPF Urine Bacteria (Auto) (NEGATIVE) /HPF Urine Culture Reflexed (NO) Urine Glucose (NEGATIVE) mg/dL 08/08/21 08/08/21 08/08/21 Range/Units 10:13 10:00 10:00 WBC (4.0-10.5) K/mm3 RBC (4.1-5.6) M/mm3 Hgb (12.5-18.0) gm/dl Hct (42-50) % MCV (78-100) fl MCH (26-32) pg MCHC (32-36) g/dl RDW (11.5-14.0) % Plt Count (150-450) K/mm3 MPV (7.5-11.0) fl Gran % (36.0-66.0) % Eos # (Auto) (0-0.5) Absolute Lymphs (auto) (1.0-4.6) Absolute Monos (auto) (0.0-1.3) Lymphocytes % (24.0-44.0) % Monocytes % (0.0-12.0) % Eosinophils % (0.00-5.0) % Basophils % (0.0-0.4) % Absolute Granulocytes (1.4-6.9) Basophils # (0-0.4) pO2/FiO2 Ratio 21.0 % VBG pH 7.36 (7.32-7.42) VBG pCO2 at Pat Temp 49 (42-55) mm/Hg VBG pO2 at Pat Temp 41 H (25-40) mm/Hg VBG HCO3 27.7 (22-28) meq/L VBG O2 Sat (Jalen) 69.7 L (95-100) VBG Base Excess 1.5 (-2.0-2.0) VBG Hemoglobin 12.4 VBG Carboxyhemoglobin 1.6 (0.0-6.9) % T HGB POC Potassium 5.2 H (3.5-5.1) Sodium (137-145) mmol/L Potassium (3.5-5.1) mmol/L Chloride (98-107) mmol/L Carbon Dioxide (22-30) mmol/L Anion Gap (5-15) MEQ/L BUN (9-20) mg/dL Creatinine (0.66-1.25) mg/dL Estimated GFR ML/MIN Glucose (74-106) mg/dL POC Glucometer 452 H (74 to 106) mg/dL Lactic Acid (0.4-2.0) Calcium (8.4-10.2) mg/dL Magnesium (1.6-2.3) mg/dL Total Bilirubin (0.2-1.3) mg/dL AST (17-59) U/L ALT (0-50) U/L Alkaline Phosphatase (38-126) U/L Troponin I < 0.012 (0.000-0.034) ng/mL Serum Total Protein (6.3-8.2) g/dL Albumin (3.5-5.0) g/dL Lipase (23-300) U/L Urine Color (YELLOW) Urine Appearance (CLEAR) Urine pH (5-6) Ur Specific [place] (1.005-1.025) Urine Protein (Negative) Urine Ketones (NEGATIVE) Urine Blood (0-5) Tomas/ul Urine Nitrite (NEGATIVE) Urine Bilirubin (NEGATIVE) Urine Urobilinogen (0-1) mg/dL Ur Leukocyte Esterase (NEGATIVE) Urine WBC (Auto) (0-5) /HPF Urine RBC (Auto) (0-2) /HPF U Epithel Cells (Auto) (FEW) /HPF Urine Bacteria (Auto) (NEGATIVE) /HPF Urine Culture Reflexed (NO) Urine Glucose (NEGATIVE) mg/dL 08/08/21 08/08/21 08/08/21 Range/Units 10:00 10:00 10:00 WBC 7.4 (4.0-10.5) K/mm3 RBC 4.09 L (4.1-5.6) M/mm3 Hgb 11.9 L (12.5-18.0) gm/dl Hct 37.0 L (42-50) % MCV 90.5 (78-100) fl MCH 29.1 (26-32) pg MCHC 32.2 (32-36) g/dl RDW 12.3 (11.5-14.0) % Plt Count 485 H (150-450) K/mm3 MPV 8.2 (7.5-11.0) fl Gran % 80.3 H (36.0-66.0) % Eos # (Auto) 0.23 (0-0.5) Absolute Lymphs (auto) 0.60 L (1.0-4.6) Absolute Monos (auto) 0.59 (0.0-1.3) Lymphocytes % 8.1 L (24.0-44.0) % Monocytes % 8.0 (0.0-12.0) % Eosinophils % 3.1 (0.00-5.0) % Basophils % 0.5 (0.0-0.4) % Absolute Granulocytes 5.93 (1.4-6.9) Basophils # 0.04 (0-0.4) pO2/FiO2 Ratio % VBG pH (7.32-7.42) VBG pCO2 at Pat Temp (42-55) mm/Hg VBG pO2 at Pat Temp (25-40) mm/Hg VBG HCO3 (22-28) meq/L VBG O2 Sat (Jalen) (95-100) VBG Base Excess (-2.0-2.0) VBG Hemoglobin VBG Carboxyhemoglobin (0.0-6.9) % T HGB POC Potassium (3.5-5.1) Sodium 131 L (137-145) mmol/L Potassium 5.5 H (3.5-5.1) mmol/L Chloride 95 L (98-107) mmol/L Carbon Dioxide 26 (22-30) mmol/L Anion Gap 15.5 H (5-15) MEQ/L BUN 28 H (9-20) mg/dL Creatinine 1.30 H (0.66-1.25) mg/dL Estimated GFR > 60.0 ML/MIN Glucose 485 H (74-106) mg/dL POC Glucometer (74 to 106) mg/dL Lactic Acid 1.8 (0.4-2.0) Calcium 9.4 (8.4-10.2) mg/dL Magnesium 1.5 L (1.6-2.3) mg/dL Total Bilirubin 0.80 (0.2-1.3) mg/dL AST 40 (17-59) U/L ALT 40 (0-50) U/L Alkaline Phosphatase 193 H (38-126) U/L Troponin I (0.000-0.034) ng/mL Serum Total Protein 7.1 (6.3-8.2) g/dL Albumin 3.8 (3.5-5.0) g/dL Lipase 16 L (23-300) U/L Urine Color (YELLOW) Urine Appearance (CLEAR) Urine pH (5-6) Ur Specific [place] (1.005-1.025) Urine Protein (Negative) Urine Ketones (NEGATIVE) Urine Blood (0-5) Tomas/ul Urine Nitrite (NEGATIVE) Urine Bilirubin (NEGATIVE) Urine Urobilinogen (0-1) mg/dL Ur Leukocyte Esterase (NEGATIVE) Urine WBC (Auto) (0-5) /HPF Urine RBC (Auto) (0-2) /HPF U Epithel Cells (Auto) (FEW) /HPF Urine Bacteria (Auto) (NEGATIVE) /HPF Urine Culture Reflexed (NO) Urine Glucose (NEGATIVE) mg/dL 08/08/21 Range/Units 09:57 WBC (4.0-10.5) K/mm3 RBC (4.1-5.6) M/mm3 Hgb (12.5-18.0) gm/dl Hct (42-50) % MCV (78-100) fl MCH (26-32) pg MCHC (32-36) g/dl RDW (11.5-14.0) % Plt Count (150-450) K/mm3 MPV (7.5-11.0) fl Gran % (36.0-66.0) % Eos # (Auto) (0-0.5) Absolute Lymphs (auto) (1.0-4.6) Absolute Monos (auto) (0.0-1.3) Lymphocytes % (24.0-44.0) % Monocytes % (0.0-12.0) % Eosinophils % (0.00-5.0) % Basophils % (0.0-0.4) % Absolute Granulocytes (1.4-6.9) Basophils # (0-0.4) pO2/FiO2 Ratio % VBG pH (7.32-7.42) VBG pCO2 at Pat Temp (42-55) mm/Hg VBG pO2 at Pat Temp (25-40) mm/Hg VBG HCO3 (22-28) meq/L VBG O2 Sat (Jalen) (95-100) VBG Base Excess (-2.0-2.0) VBG Hemoglobin VBG Carboxyhemoglobin (0.0-6.9) % T HGB POC Potassium (3.5-5.1) Sodium (137-145) mmol/L Potassium (3.5-5.1) mmol/L Chloride (98-107) mmol/L Carbon Dioxide (22-30) mmol/L Anion Gap (5-15) MEQ/L BUN (9-20) mg/dL Creatinine (0.66-1.25) mg/dL Estimated GFR ML/MIN Glucose (74-106) mg/dL POC Glucometer (74 to 106) mg/dL Lactic Acid (0.4-2.0) Calcium (8.4-10.2) mg/dL Magnesium (1.6-2.3) mg/dL Total Bilirubin (0.2-1.3) mg/dL AST (17-59) U/L ALT (0-50) U/L Alkaline Phosphatase (38-126) U/L Troponin I (0.000-0.034) ng/mL Serum Total Protein (6.3-8.2) g/dL Albumin (3.5-5.0) g/dL Lipase (23-300) U/L Urine Color YELLOW (YELLOW) Urine Appearance CLEAR (CLEAR) Urine pH 6.0 (5-6) Ur Specific [place] 1.020 (1.005-1.025) Urine Protein >=500 (Negative) Urine Ketones SMALL (NEGATIVE) Urine Blood NEGATIVE (0-5) Tomas/ul Urine Nitrite NEGATIVE (NEGATIVE) Urine Bilirubin NEGATIVE (NEGATIVE) Urine Urobilinogen NEGATIVE (0-1) mg/dL Ur Leukocyte Esterase NEGATIVE (NEGATIVE) Urine WBC (Auto) NONE (0-5) /HPF Urine RBC (Auto) 6-10 (0-2) /HPF U Epithel Cells (Auto) RARE (FEW) /HPF Urine Bacteria (Auto) FEW (NEGATIVE) /HPF Urine Culture Reflexed NO (NO) Urine Glucose >=500 (NEGATIVE) mg/dL - Progress Progress: improved, re-examined Progress Note: 08/08/21 14:38 35 years old is evaluated for multiple episodes of vomiting with decreased ability to keep things down, dehydration. Given fluid bolus along with symptomatic treatment, work-up showed normal white count, chemistry profile showed mild NINFA which is secondary to multiple episodes of vomiting and hyperglycemia but not in DKA. Given IV insulin and blood sugar is improving. Patient was hypertensive and given a dose of labetalol and improved. CT abdomen pelvis did not show any acute finding but some element of constipation. Rec ommended MiraLAX. Counseled on blood sugar control, medication compliance for antihypertensive and outpatient follow-up. Do not think patient needs to be admitted and is stable for discharge. Counseled pt/family regarding: lab results, diagnosis, need for follow-up, rad results, smoking cessation - Departure Departure Disposition: Home Clinical Impression: Nausea & vomiting, Hypertension, Diabetic gastroparesis, Hyperglycemia, NINFA (acute kidney injury), Constipation Condition: Stable Critical Care Time: No Referrals: VALENTINA STARKS [Primary Care Provider] - Follow up/PCP as directed (In 1-2 days for reevaluation) Instructions: Hyperglycemia, Adult (DC), High Blood Pressure (DC) Additional Instructions: Drink plenty of fluids to keep yourself well-hydrated. Take Zofran as needed. Follow-up with your primary care for reevaluation. Monitor your blood pressure and blood sugar regularly, keep a log and follow-up outpatient to see if you need any medication adjustments. Return to ER for uncontrolled blood sugar/blood pressure/intractable vomiting etc. Prescriptions: Polyethylene Glycol 3350 17 gm [Miralax Powder 17GM PACKET] 17 gm PO DAILY #10 packet ondansetron HCL [Zofran] 4 mg PO Q6H PRN #7 tablet PRN Reason: Nausea
[2021-08-08] MEDS ORDERED: TRANDATE 20 MG/4 ML SYRINGE IV ONE (11:58)
[2021-08-08] MEDS: TRANDATE 20 MG/4 ML SYRINGE IV ONE (11:59)
[2021-08-08] MEDS ORDERED: Reglan 10 MG/2 ML ONE (12:07)
[2021-08-08] MEDS: Reglan 10 MG/2 ML IV ONE (12:08)
[2021-08-08 14:25] VITALS: BP 158/90; PULSE 95
[2021-08-08 14:43] VITALS: O2SAT 96
== END 2021-08-08 14:50 | disposition home or self-care (01) ==
LOC: ED 09:16
DX: E10.43 Type 1 diabetes mellitus with diabetic autonomic (poly)neuropathy (principal); E10.65 Type 1 diabetes mellitus with hyperglycemia; K31.84 Gastroparesis; Z79.4 Long term (current) use of insulin; R10.84 Generalized abdominal pain; R11.2 Nausea with vomiting, unspecified; I10 Essential (primary) hypertension; N17.9 Acute kidney failure, unspecified; K59.00 Constipation, unspecified
CPT/HCPCS: 36000; 36415; 74176; 80053; 81001; 82805; 82947; 83605; 83690; 83735; 84484; 85025; 87040; 93005; 93041; 96360; 96361; 96374; 96375; 96376; 99285; J1815; J2270; J2405; J3475

== ENCOUNTER 2021-08-28 11:43 | Emergency (ER) | payer OTHER ==
--- NOTE | 2021-08-28 12:13 | ERPHSYRPT ---
- History of Present Illness Time Seen by Provider: 08/28/21 12:00 Historian: patient Exam Limitations: no limitations Patient Subjective Stated Complaint: Pt states "It has been going on and off for the past couple of days. My chest hurts. It is kind of like a burning pain." Triage Nursing Assessment: PT presented alert and oriented X 3, skin pwd Pt ambulates with an upright steady gait, able to speak in clear full senentences. pt in no apparent respiratory distress. Pt resting comfortably on the bed. Physician History: Patient is a 35-year-old male presents to our ED with substernal chest pain. Patient has been experiencing intermittent burning sensation below his breastbone for approximately 2 weeks. No associated nausea vomiting or diaphoresis. Patient states it could be reflux. He is not sure. Patient is a diabetic. Symptoms are mild to moderate in intensity. No specific worsening improving factors. No trauma. No fever. No dizziness. No syncope. Patient voices no other complaints or concerns at this time. Timing/Duration: week(s) (2 weeks) Activities at Onset: none Quality: aching Location: substernal Chest Pain Radiation: no radiation Severity of Pain-Max: moderate Severity of Pain-Current: mild Modifying Factors: Improves With: nothing Associated Symptoms: denies symptoms Prior Chest Pain/Cardiac Workup: no prior chest pain Nitro Today/Relief: no nitro taken today Aspirin Treatment Today: no aspirin today Allergies/Adverse Reactions: No Known Drug Allergies Allergy (Verified 08/08/21 09:41) Home Medications: Insulin Lispro [Admelog Solostar] 1 unit SQ TIDWMEALS 03/30/21 [History] Insulin NPH Hum/Reg Insulin Hm [Humulin 70-30 Vial] 1 units SQ ACHS PRN 03/30/21 [History] Hx Tetanus, Diphtheria Vaccination/Date Given: Yes Hx Influenza Vaccination/Date Given: No Hx Pneumococcal Vaccination/Date Given: No Immunizations Up to Date: Yes Travel Risk - International Travel Have you traveled outside of the country in past 3 weeks: No - Coronavirus Screening Are you exhibiting any of the following symptoms?: Yes Symptoms: Shortness of Breath, Vomiting/Diarrhea Close contact with a COVID-19 positive Pt in past 14-21 Days: No - Vaccine Status Have you recieved a Covid-19 vaccination: No - Review of Systems Constitutional: No Symptoms, No Fever, No Chills Eyes: No Symptoms Ears, Nose, & Throat: No Symptoms Respiratory: No Symptoms, No Cough, No Dyspnea Cardiac: No Symptoms, No Chest Pain, No Edema, No Syncope Abdominal/Gastrointestinal: No Symptoms, No Abdominal Pain, No Nausea, No Vomiting, No Diarrhea Genitourinary Symptoms: No Symptoms, No Dysuria Musculoskeletal: No Symptoms, No Back Pain, No Neck Pain Skin: No Symptoms, No Rash Neurological: No Symptoms, No Dizziness, No Focal Weakness, No Sensory Changes Psychological: No Symptoms Endocrine: No Symptoms Hematologic/Lymphatic: No Symptoms Immunological/Allergic: No Symptoms All Other Systems: Reviewed and Negative - Past Medical History Pertinent Past Medical History: Yes Neurological History: No Pertinent History ENT History: No Pertinent History Cardiac History: Hypertension Respiratory History: No Pertinent History Endocrine Medical History: Diabetes Type I Musculoskeletal History: No Pertinent History GI Medical History: No Pertinent History History: No Pertinent History Psycho-Social History: Anxiety, Depression Male Reproductive Disorders: No Pertinent History Other Medical History: DKA - Past Surgical History Past Surgical History: No Neuro Surgical History: No Pertinent History Cardiac: No Pertinent History Respiratory: No Pertinent History Gastrointestinal: No Pertinent History Genitourinary: No Pertinent History Musculoskeletal: No Pertinent History Male Surgical History: No Pertinent History Other Surgical History: . - Social History Smoking Status: Never smoker Exposure to second hand smoke: No Drug Use: marijuana Patient Lives Alone: No - Nursing Vital Signs Nursing Vital Signs: Initial Vital Signs Temperature 97.3 F 08/28/21 11:47 Pulse Rate 96 H 08/28/21 11:47 Respiratory Rate 20 08/28/21 11:47 Blood Pressure 188/110 08/28/21 11:47 O2 Sat by Pulse Oximetry 97 08/28/21 11:47 Pain Scale Pain Intensity 0 - Physical Exam General Appearance: no apparent distress, alert Eye Exam: PERRL/EOMI, eyes nml inspection Ears, Nose, Throat Exam: normal ENT inspection, moist mucous membranes Neck Exam: normal inspection, non-tender, supple, full range of motion Respiratory Exam: normal breath sounds, lungs clear, No respiratory distress Cardiovascular Exam: regular rate/rhythm, normal heart sounds Gastrointestinal/Abdomen Exam: soft, No tenderness, No mass Back Exam: normal inspection, No CVA tenderness, No vertebral tenderness Extremity Exam: normal inspection, normal range of motion Neurologic Exam: alert, oriented x 3, cooperative, normal mood/affect, sensation nml, No motor deficits Skin Exam: normal color, warm, dry SpO2 Interpretation: normal SpO2: 98 O2 Delivery: Room Air - Course Nursing assessment & vital signs reviewed: Yes EKG Interpreted by Me: RATE, Sinus Rhythm (Sinus rhythm. Probable left atrial enlargement. Probable left ventricular hypertrophy.) - Radiology Exams Chest X-ray Interpretation: Teleradiologist Report (Portable chest continues to demonstrate normal heart lungs and bony thorax.) Ordered Tests: Active Orders 24 hr Category Date Time Status Maintenance Of Way Superintendent STAT Care 08/28/21 11:54 Active EKG-ER Only STAT Care 08/28/21 11:53 Active IV Insertion STAT Care 08/28/21 11:53 Active Pulse Oximetry (ED) STAT Care 08/28/21 11:53 Active CHEST 1 VIEW (PORTABLE) Stat Exams 08/28/21 11:54 Completed CBC W DIFF Stat Lab 08/28/21 12:30 Completed CMP Stat Lab 08/28/21 12:30 Completed D-DIMER QUANTITATIVE Stat Lab 08/28/21 12:30 Completed NT PRO BNP Stat Lab 08/28/21 12:30 Completed TROPONIN Q3H Lab 08/28/21 12:30 Completed TROPONIN Q3H Lab 08/28/21 15:40 Completed TROPONIN Q3H Lab 08/28/21 18:00 Ordered TROPONIN Q3H Lab 08/28/21 21:00 Ordered TROPONIN Q3H Lab 08/29/21 00:00 Ordered Medication Summary Generic Name Dose Route Start Last Admin Trade Name Freq PRN Reason Stop Dose Admin Sodium Chloride 1,000 mls @ 999 mls/hr 08/28/21 16:52 08/28/21 17:24 Sodium Chloride 0.9% 1000 Ml IV 08/28/21 17:52 999 mls/hr .Q1H1M STA Administration Discontinued Medications Generic Name Dose Route Start Last Admin Trade Name Freq PRN Reason Stop Dose Admin Sodium Chloride Confirm 08/28/21 16:55 Sodium Chloride 0.9% 1000 Ml Administered 08/28/21 16:56 Dose 1,000 mls @ ud .ROUTE .STK-MED ONE Lab/Rad Data: Laboratory Result Diagrams 08/28/21 12:30 08/28/21 12:30 Laboratory Results 08/28/21 08/28/21 08/28/21 Range/Units 15:40 12:30 12:30 WBC (4.0-10.5) K/mm3 RBC (4.1-5.6) M/mm3 Hgb (12.5-18.0) gm/dl Hct (42-50) % MCV (78-100) fl MCH (26-32) pg MCHC (32-36) g/dl RDW (11.5-14.0) % Plt Count (150-450) K/mm3 MPV (7.5-11.0) fl Gran % (36.0-66.0) % Eos # (Auto) (0-0.5) Absolute Lymphs (auto) (1.0-4.6) Absolute Monos (auto) (0.0-1.3) Lymphocytes % (24.0-44.0) % Monocytes % (0.0-12.0) % Eosinophils % (0.00-5.0) % Basophils % (0.0-0.4) % Absolute Granulocytes (1.4-6.9) Basophils # (0-0.4) D-Dimer < 215 L (215-500) ng/mL Sodium (137-145) mmol/L Potassium (3.5-5.1) mmol/L Chloride (98-107) mmol/L Carbon Dioxide (22-30) mmol/L Anion Gap (5-15) MEQ/L BUN (9-20) mg/dL Creatinine (0.66-1.25) mg/dL Estimated GFR ML/MIN Glucose (74-106) mg/dL Calcium (8.4-10.2) mg/dL Total Bilirubin (0.2-1.3) mg/dL AST (17-59) U/L ALT (0-50) U/L Alkaline Phosphatase (38-126) U/L Troponin I < 0.012 < 0.012 (0.000-0.034) ng/mL NT-Pro-B Natriuret Pep (0-450) pg/mL Serum Total Protein (6.3-8.2) g/dL Albumin (3.5-5.0) g/dL 08/28/21 08/28/21 Range/Units 12:30 12:30 WBC 7.3 (4.0-10.5) K/mm3 RBC 3.78 L (4.1-5.6) M/mm3 Hgb 11.0 L (12.5-18.0) gm/dl Hct 34.2 L (42-50) % MCV 90.5 (78-100) fl MCH 29.1 (26-32) pg MCHC 32.2 (32-36) g/dl RDW 12.4 (11.5-14.0) % Plt Count 433 (150-450) K/mm3 MPV 8.1 (7.5-11.0) fl Gran % 73.3 H (36.0-66.0) % Eos # (Auto) 0.36 (0-0.5) Absolute Lymphs (auto) 0.77 L (1.0-4.6) Absolute Monos (auto) 0.75 (0.0-1.3) Lymphocytes % 10.6 L (24.0-44.0) % Monocytes % 10.3 (0.0-12.0) % Eosinophils % 5.0 (0.00-5.0) % Basophils % 0.8 (0.0-0.4) % Absolute Granulocytes 5.33 (1.4-6.9) Basophils # 0.06 (0-0.4) D-Dimer (215-500) ng/mL Sodium 130 L (137-145) mmol/L Potassium 5.1 (3.5-5.1) mmol/L Chloride 96 L (98-107) mmol/L Carbon Dioxide 28 (22-30) mmol/L Anion Gap 10.5 (5-15) MEQ/L BUN 21 H (9-20) mg/dL Creatinine 1.47 H (0.66-1.25) mg/dL Estimated GFR 57.9 ML/MIN Glucose 343 H (74-106) mg/dL Calcium 9.4 (8.4-10.2) mg/dL Total Bilirubin 0.70 (0.2-1.3) mg/dL AST 34 (17-59) U/L ALT 24 (0-50) U/L Alkaline Phosphatase 135 H (38-126) U/L Troponin I (0.000-0.034) ng/mL NT-Pro-B Natriuret Pep 285 (0-450) pg/mL Serum Total Protein 6.8 (6.3-8.2) g/dL Albumin 3.7 (3.5-5.0) g/dL - Progress Progress: improved Air Movement: good Progress Note: Patient reassessed. Vital stable. Troponin negative x2. Mild hyponatremia with hyperglycemia. IV fluids infused. D-dimer negative. Chest x-ray negative as well. Patient states he is ready for discharge. He agrees to follow-up with his primary care doctor within 48 hours for reevaluation. Patient voices no other complaints or concerns at this time. Portions of this note were created with voice recognition technology. There may be grammatical, spelling, punctuation or sound alike errors 08/28/21 17:42 Blood Culture(s) Obtained: No Antibiotics given: No Counseled pt/family regarding: lab results, diagnosis, need for follow-up, rad results - Departure Departure Disposition: Home Clinical Impression: Hyperglycemia, Chest pain, Hyponatremia, Chronic renal insufficiency Condition: Stable Critical Care Time: No Referrals: VALENTINA STARKS [Primary Care Provider] - Follow up/PCP as directed
--- NOTE | 2021-08-28 12:14 | XRAY ---
Indication: Chest pain. Comparison: March 30, 2021. Portable chest continues to demonstrate normal heart, lungs, and bony thorax.
[2021-08-28 12:32] LABS: Absolute Neutrophil Ct (ANC) 5.33 (1.4-6.9); Basophil (Absolute #) 0.06 (0-0.4); Eosinophil (Absolute #) 0.36 (0-0.5); Hematocrit 34.2 % (42-50); Lymphocyte (Absolute #) 0.77 (1.0-4.6); Lymphocytes % 10.6 % (24.0-44.0); Mean Cell Volume 90.5 fl (78-100); Mean Corpuscular Hemoglobin 29.1 pg (26-32); Mean Corpuscular Hgb Concent. 32.2 g/dl (32-36); Mean Platelet Volume 8.1 fl (7.5-11.0); Monocyte (Absolute #) 0.75 (0.0-1.3); Monocytes % 10.3 % (0.0-12.0); Neutrophil % 73.3 % (36.0-66.0); Platelet Count 433 K/mm3 (150-450); Red Blood Count 3.78 M/mm3 (4.1-5.6); Red Cell Distribution Width 12.4 % (11.5-14.0); White Blood Count 7.3 K/mm3 (4.0-10.5)
[2021-08-28 12:53] LABS: ALBUMIN 3.7 g/dL (3.5-5.0); ANION GAP 10.5 MEQ/L (5-15); BILIRUBIN,TOTAL 0.7 mg/dL (0.2-1.3); Calcium 9.4 mg/dL (8.4-10.2); Creatinine 1 1.47 mg/dL (0.66-1.25); EST GLOMERULAR FILTRATION RATE 57.9 ML/MIN; Potassium 5.1 mmol/L (3.5-5.1); Total Protein 6.8 g/dL (6.3-8.2)
[2021-08-28] MEDS ORDERED: Sodium Chloride 0.9% 1000 ML 1,000 ML IV STA (16:52)
[2021-08-28] MEDS ORDERED: Sodium Chloride 0.9% 1000 ML 1,000 ML ONE (16:55)
[2021-08-28 17:32] VITALS: BP 188/110
[2021-08-28 18:27] VITALS: PULSE 84; O2SAT 95
== END 2021-08-28 18:27 | disposition home or self-care (01) ==
LOC: ED 11:43
DX: R07.9 Chest pain, unspecified (principal); E10.65 Type 1 diabetes mellitus with hyperglycemia; E10.22 Type 1 diabetes mellitus with diabetic chronic kidney disease; N18.9 Chronic kidney disease, unspecified; Z79.4 Long term (current) use of insulin; E87.1 Hypo-osmolality and hyponatremia
CPT/HCPCS: 36000; 36415; 71045; 80053; 83880; 84484; 85025; 85379; 93005; 93041; 94760; 99284

== ENCOUNTER 2022-01-19 17:02 | Observation (INO) | payer OTHER ==
[2022-01-19] MEDS ORDERED: Zofran 4 MG/2 ML VIAL IV ONE (17:27)
[2022-01-19] MEDS ORDERED: MORPHINE SULFATE 4 MG INJ IV ONE (17:27)
[2022-01-19] MEDS ORDERED: PROTONIX 40 MG IV IV ONE ×2 (17:27→18:49)
[2022-01-19] MEDS ORDERED: Sodium Chloride 0.9% 1000 ML 1,000 ML IV STA ×2 (17:27→19:33)
--- NOTE | 2022-01-19 17:27 | ERPHSYRPT ---
<ERICK PEREIRA - Last Filed: 01/19/22 21:09> - History of Present Illness Historian: patient Exam Limitations: no limitations Patient Subjective Stated Complaint: pt here for vomiting and pain to epigastric area, he was released a week ago from [facility] for the same issue Triage Nursing Assessment: pt alert,resp easy, skin w/d/p, no edema noted, mucus membranes moist Timing/Duration: day(s) (4), gradual onset, worse Activities at Onset: rest Quality: sharpness Abdominal Pain Onset Location: epigastric Pain Radiation: no radiation Severity of Pain-Max: severe Severity of Pain-Current: moderate Modifying Factors: Improves With: nothing Associated Symptoms: loss of appetite, nausea, vomiting, weakness Previous symptoms: same symptoms as today Hx Tetanus, Diphtheria Vaccination/Date Given: Yes Hx Influenza Vaccination/Date Given: No Hx Pneumococcal Vaccination/Date Given: No Immunizations Up to Date: Yes <YUE OLIVER - Last Filed: 01/25/22 21:52> - History of Present Illness Time Seen by Provider: 01/19/22 17:03 Physician History: 36 years old male with history of type 1 diabetes mellitus, hypertension presented to the ER with chief complaint of upper abdominal pain with multiple episodes of nonprojectile, nonbilious vomiting off and on for the last 4 days with associated generalized weakness fatigue tiredness and dehydration. Patient report having similar symptoms last week and was in DKA, admitted at [facility]. No fever or chills reported. He reports his blood sugar is fairly controlled this time. (YUE OLIVER) Allergies/Adverse Reactions: No Known Drug Allergies Allergy (Verified 01/19/22 17:14) Home Medications: Insulin Lispro [Admelog Solostar] 1 unit SQ TIDWMEALS 03/30/21 [History] Travel Risk - International Travel Have you traveled outside of the country in past 3 weeks: No - Coronavirus Screening Are you exhibiting any of the following symptoms?: Yes Symptoms: Vomiting/Diarrhea Close contact with a COVID-19 positive Pt in past 14-21 Days: No - Vaccine Status Have you recieved a Covid-19 vaccination: No <YUE OLIVER - Last Filed: 01/25/22 21:52> - Review of Systems Constitutional: Fatigue, Weakness Eyes: No Symptoms Ears, Nose, & Throat: No Symptoms Respiratory: No Symptoms Cardiac: No Symptoms Abdominal/Gastrointestinal: Abdominal Pain, Nausea, Vomiting Genitourinary Symptoms: No Symptoms Musculoskeletal: Myalgias Skin: No Symptoms Neurological: No Symptoms Psychological: No Symptoms Endocrine: No Symptoms Hematologic/Lymphatic: No Symptoms Immunological/Allergic: No Symptoms <MELODYYUE Last Filed: 01/25/22 21:52> - Past Medical History Pertinent Past Medical History: Yes Neurological History: No Pertinent History ENT History: No Pertinent History Cardiac History: Hypertension Respiratory History: No Pertinent History Endocrine Medical History: Diabetes Type I Musculoskeletal History: No Pertinent History GI Medical History: No Pertinent History History: No Pertinent History Psycho-Social History: Anxiety, Depression Male Reproductive Disorders: No Pertinent History Other Medical History: DKA - Past Surgical History Past Surgical History: No Neuro Surgical History: No Pertinent History Cardiac: No Pertinent History Respiratory: No Pertinent History Gastrointestinal: No Pertinent History Genitourinary: No Pertinent History Musculoskeletal: No Pertinent History Male Surgical History: No Pertinent History Other Surgical History: . - Social History Smoking Status: Never smoker Exposure to second hand smoke: No Drug Use: marijuana Patient Lives Alone: No <YUE OLIVER Last Filed: 01/25/22 21:52> - Physical Exam General Appearance: no apparent distress, alert Eye Exam: PERRL/EOMI, eyes nml inspection Ears, Nose, Throat Exam: normal ENT inspection, dry mucous membranes Neck Exam: normal inspection, supple, full range of motion Respiratory Exam: normal breath sounds, lungs clear Cardiovascular Exam: regular rate/rhythm, normal heart sounds Gastrointestinal/Abdomen Exam: soft, normal bowel sounds, tenderness, guarding (Upper abdomen), No rebound Back Exam: normal inspection, normal range of motion Extremity Exam: normal inspection, normal range of motion, pelvis stable Neurologic Exam: alert, oriented x 3, cooperative Skin Exam: normal color SpO2 Interpretation: normal SpO2: 100 O2 Delivery: Room Air <MELODYYUE - Last Filed: 01/25/22 21:52> - Nursing Vital Signs Nursing Vital Signs: Initial Vital Signs Temperature 97.0 F 01/19/22 17:09 Pulse Rate 100 H 01/19/22 17:09 Respiratory Rate 18 01/19/22 17:09 Blood Pressure 129/88 01/19/22 17:09 O2 Sat by Pulse Oximetry 100 01/19/22 17:09 Pain Scale Pain Intensity 0 - Course Nursing assessment & vital signs reviewed: Yes EKG Interpreted by Me: RATE (90), Sinus Rhythm, NORMAL AXIS, NORMAL INTERVALS, NORMAL QRS, Other (Left atrial enlargement and nonspecific ST-T wave changes) - Radiology Exams Chest X-ray Interpretation: Interpreted by me, Negative - CT Exams Abdomen/Pelvis CT Interpretation: Tele-radiologist Report <ERICK PEREIRA - Last Filed: 01/19/22 21:09> Ordered Tests: Medication Summary Discontinued Medications Generic Name Dose Route Start Last Admin Trade Name Freq PRN Reason Stop Dose Admin Famotidine 20 mg 01/20/22 22:00 01/22/22 08:40 Famotidine 20 Mg/1 Vial IV 02/19/22 21:59 20 mg Q12HT XIN Administration Hydralazine HCl 10 mg 01/20/22 15:43 01/22/22 03:49 Hydralazine Hcl 20 Mg/Ml Vial IV 02/19/22 15:42 10 mg [id number] PRN Administration HYPERTENSION Hydromorphone HCl 1 mg 01/19/22 21:22 01/22/22 12:25 Hydromorphone 1 Mg/1ml Inj 1 Mg/Ml Syringe IV 01/24/22 21:21 1 mg Q4H PRN PRN Administration PAIN Sodium Chloride 1,000 mls @ 999 mls/hr 01/19/22 17:27 01/19/22 21:08 Sodium Chloride 0.9% 1000 Ml IV 01/19/22 18:27 Infused .Q1H1M STA Infusion Sodium Chloride Confirm 01/19/22 18:50 Sodium Chloride 0.9% 1000 Ml Administered 01/19/22 18:51 Dose 1,000 mls @ ud .ROUTE .STK-MED ONE Sodium Chloride 1,000 mls @ 999 mls/hr 01/19/22 19:33 01/19/22 21:38 Sodium Chloride 0.9% 1000 Ml IV 01/19/22 20:33 Infused .Q1H1M STA Infusion Sodium Chloride Confirm 01/19/22 20:02 Sodium Chloride 0.9% 1000 Ml Administered 01/19/22 20:03 Dose 1,000 mls @ ud .ROUTE .STK-MED ONE Sodium Chloride 1,000 mls @ 250 mls/hr 01/19/22 21:15 01/20/22 17:48 Sodium Chloride 0.9% 1000 Ml IV 02/18/22 21:14 250 mls/hr .Q4H XIN Administration FAMOTIDINE IN NACL,ISO-OSM/PF 20 mg in 50 mls @ 200 mls/hr 01/20/22 22:00 Famotidine 20 Mg Piggyback IV 02/19/22 21:59 Q12HT XIN Lactated Ringer's 1,000 mls @ 80 mls/hr 01/21/22 07:30 01/22/22 11:08 Lactated Ringers IV 02/20/22 07:29 80 mls/hr .[id number] XIN Administration Insulin Human Lispro 0 unit 01/19/22 21:11 01/21/22 21:25 Insulin Lispro 1 Unit SQ 02/18/22 21:10 7 unit UD PRN Administration HYPERGLYCEMIA Insulin Human Lispro 0 unit 01/22/22 08:30 01/22/22 08:40 Insulin Lispro 1 Unit SQ 01/22/22 12:00 6 unit UD PRN Administration Insulin Human Lispro 0 unit 01/22/22 12:05 01/22/22 16:10 Insulin Lispro 1 Unit SQ 02/21/22 12:04 5 unit UD PRN Administration HYPERGLYCEMIA Insulin Human Regular 5 unit 01/19/22 19:57 01/19/22 20:01 Insulin Regular, Human 1 Unit SQ 01/19/22 19:58 5 unit STAT ONE Administration Insulin Human Regular Confirm 01/19/22 20:02 Insulin Regular, Human 1 Unit Administered 01/19/22 20:03 Dose 5 unit .ROUTE .STK-MED ONE Lidocaine HCl Confirm 01/22/22 08:23 Lidocaine - Mpf 2% 5 Ml Vial Administered 01/22/22 08:24 Dose 5 ml .ROUTE .STK-MED ONE Lisinopril 10 mg 01/20/22 15:43 01/22/22 08:41 Lisinopril 10 Mg Tablet PO 02/19/22 15:42 10 mg DAILY XIN Administration Midazolam HCl Confirm 01/22/22 14:25 Midazolam Hcl 2 Mg/2 Ml Vial Administered 01/22/22 14:26 Dose 2 mg .ROUTE .STK-MED ONE Morphine Sulfate 4 mg 01/19/22 17:27 01/19/22 18:52 Morphine Sulfate 4 Mg/Ml Injection IV 01/19/22 17:28 4 mg STAT ONE Administration Morphine Sulfate Confirm 01/19/22 18:50 Morphine Sulfate 4 Mg/Ml Injection Administered 01/19/22 18:51 Dose 4 mg .ROUTE .STK-MED ONE Ondansetron HCl 4 mg 01/19/22 17:27 01/19/22 18:52 Ondansetron Hcl 4 Mg/2 Ml Vial IV 01/19/22 17:28 4 mg STAT ONE Administration Ondansetron HCl Confirm 01/19/22 18:49 Ondansetron Hcl 4 Mg/2 Ml Vial Administered 01/19/22 18:50 Dose 4 mg .ROUTE .STK-MED ONE Ondansetron HCl 4 mg 01/19/22 21:22 01/21/22 08:28 Ondansetron Hcl 4 Mg/2 Ml Vial IV 02/18/22 21:21 4 mg Q6H PRN PRN Administration NAUSEA/VOMITING Pantoprazole Sodium 40 mg 01/19/22 17:27 01/19/22 18:53 Pantoprazole 40 Mg Vial IV 01/19/22 17:28 40 mg STAT ONE Administration Pantoprazole Sodium Confirm 01/19/22 18:49 Pantoprazole 40 Mg Vial Administered 01/19/22 18:50 Dose 40 mg IV .STK-MED ONE Pantoprazole Sodium 40 mg 01/20/22 12:30 01/22/22 08:40 Pantoprazole 40 Mg Vial IV 02/19/22 12:29 40 mg Q24H10 XIN Administration Propofol Confirm 01/22/22 14:25 Propofol 10 Mg/Ml 20ml Vial Administered 01/22/22 14:26 Dose 200 mg IV .STK-MED ONE Lab/Rad Data: Laboratory Result Diagrams 01/19/22 17:50 01/19/22 17:30 Laboratory Results 01/19/22 01/19/22 01/19/22 Range/Units 23:10 20:50 20:31 WBC (4.0-10.5) x10^3/uL RBC (4.1-5.6) x10^6/uL Hgb (12.5-18.0) g/dL Hct (42-50) % MCV (78-100) fL MCH (26-32) pg MCHC (32-36) g/dL RDW (11.5-14.0) % Plt Count (150-450) x10^3/uL MPV (7.5-11.0) fL Gran % (36.0-66.0) % Immature Gran % (Auto) (0.00-0.4) % Nucleat RBC Rel Count (0.00-0.1) % Eos # (Auto) (0-0.5) x10^3/uL Immature Gran # (Auto) (0.00-0.03) x10^3u/L Absolute Lymphs (auto) (1.0-4.6) x10^3/uL Absolute Monos (auto) (0.0-1.3) x10^3/uL Absolute Nucleated RBC (0.00-0.01) x10^3u/L Lymphocytes % (24.0-44.0) % Monocytes % (0.0-12.0) % Eosinophils % (0.00-5.0) % Basophils % (0.0-0.4) % Absolute Granulocytes (1.4-6.9) x10^3/uL Basophils # (0-0.4) x10^3/uL pO2/FiO2 Ratio % VBG pH (7.32-7.42) VBG pCO2 at Pat Temp (42-55) mm/Hg VBG pO2 at Pat Temp (25-40) mm/Hg VBG HCO3 (22-28) meq/L VBG O2 Sat (Jalen) (95-100) VBG Base Excess (-2.0-2.0) VBG Hemoglobin VBG Carboxyhemoglobin (0.0-6.9) % T HGB POC Potassium (3.5-5.1) Sodium (137-145) mmol/L Potassium (3.5-5.1) mmol/L Chloride (98-107) mmol/L Carbon Dioxide (22-30) mmol/L Anion Gap (5-15) MEQ/L BUN (9-20) mg/dL Creatinine (0.66-1.25) mg/dL Estimated GFR ML/MIN Glucose (74-106) mg/dL POC Glucometer 289 H (74 to 106) mg/dL Lactic Acid (0.4-2.0) Calcium (8.4-10.2) mg/dL Total Bilirubin (0.2-1.3) mg/dL AST (17-59) U/L ALT (0-50) U/L Alkaline Phosphatase (38-126) U/L Troponin I < 0.012 (0.000-0.034) ng/mL Serum Total Protein (6.3-8.2) g/dL Albumin (3.5-5.0) g/dL Lipase (23-300) U/L Urinalys Dipstick Clnc Urine Color (YELLOW) Urine Appearance (CLEAR) Urine pH (5-6) Ur Specific [place] (1.005-1.025) POC Urine Protein Conf (Negative) Urine Ketones (NEGATIVE) Urine Nitrite (NEGATIVE) Urine Bilirubin (NEGATIVE) Urine Urobilinogen (0-1) mg/dL Urine Leukocytes (NEGATIVE) Urine WBC (Auto) (0-5) /HPF Urine RBC (Auto) (0-2) /HPF U Hyaline Cast (Auto) (0-2) /LPF U Epithel Cells (Auto) (FEW) /HPF Urine Bacteria (Auto) (NEGATIVE) /HPF Urine RBC (0-5) Tomas/ul Urine Mucus (Auto) (NEGATIVE) /HPF Ur Culture Indicated? Urine Glucose (NEGATIVE) mg/dL Influenza Type A Ag NEGATIVE (NEGATIVE) Influenza Type B Ag NEGATIVE (NEGATIVE) RSV (PCR) NEGATIVE (Negative) SARS-CoV-2 (PCR) NEGATIVE (NEGATIVE) 01/19/22 01/19/22 01/19/22 Range/Units 20:31 19:57 19:49 WBC (4.0-10.5) x10^3/uL RBC (4.1-5.6) x10^6/uL Hgb (12.5-18.0) g/dL Hct (42-50) % MCV (78-100) fL MCH (26-32) pg MCHC (32-36) g/dL RDW (11.5-14.0) % Plt Count (150-450) x10^3/uL MPV (7.5-11.0) fL Gran % (36.0-66.0) % Immature Gran % (Auto) (0.00-0.4) % Nucleat RBC Rel Count (0.00-0.1) % Eos # (Auto) (0-0.5) x10^3/uL Immature Gran # (Auto) (0.00-0.03) x10^3u/L Absolute Lymphs (auto) (1.0-4.6) x10^3/uL Absolute Monos (auto) (0.0-1.3) x10^3/uL Absolute Nucleated RBC (0.00-0.01) x10^3u/L Lymphocytes % (24.0-44.0) % Monocytes % (0.0-12.0) % Eosinophils % (0.00-5.0) % Basophils % (0.0-0.4) % Absolute Granulocytes (1.4-6.9) x10^3/uL Basophils # (0-0.4) x10^3/uL pO2/FiO2 Ratio % VBG pH (7.32-7.42) VBG pCO2 at Pat Temp (42-55) mm/Hg VBG pO2 at Pat Temp (25-40) mm/Hg VBG HCO3 (22-28) meq/L VBG O2 Sat (Jalen) (95-100) VBG Base Excess (-2.0-2.0) VBG Hemoglobin VBG Carboxyhemoglobin (0.0-6.9) % T HGB POC Potassium (3.5-5.1) Sodium (137-145) mmol/L Potassium (3.5-5.1) mmol/L Chloride (98-107) mmol/L Carbon Dioxide (22-30) mmol/L Anion Gap (5-15) MEQ/L BUN (9-20) mg/dL Creatinine (0.66-1.25) mg/dL Estimated GFR ML/MIN Glucose (74-106) mg/dL POC Glucometer (74 to 106) mg/dL Lactic Acid 1.1 (0.4-2.0) Calcium (8.4-10.2) mg/dL Total Bilirubin (0.2-1.3) mg/dL AST (17-59) U/L ALT (0-50) U/L Alkaline Phosphatase (38-126) U/L Troponin I < 0.012 (0.000-0.034) ng/mL Serum Total Protein (6.3-8.2) g/dL Albumin (3.5-5.0) g/dL Lipase (23-300) U/L Urinalys Dipstick Clnc MAIN LAB Urine Color YELLOW (YELLOW) Urine Appearance CLEAR (CLEAR) Urine pH 7.0 (5-6) Ur Specific [place] 1.025 (1.005-1.025) POC Urine Protein Conf >=300 (Negative) Urine Ketones MODERATE-40 (NEGATIVE) Urine Nitrite NEGATIVE (NEGATIVE) Urine Bilirubin NEGATIVE (NEGATIVE) Urine Urobilinogen 1 (0-1) mg/dL Urine Leukocytes NEGATIVE (NEGATIVE) Urine WBC (Auto) 0-2 (0-5) /HPF Urine RBC (Auto) 0-2 (0-2) /HPF U Hyaline Cast (Auto) 0-2 (0-2) /LPF U Epithel Cells (Auto) NONE (FEW) /HPF Urine Bacteria (Auto) RARE (NEGATIVE) /HPF Urine RBC TRACE-INTACT (0-5) Tomas/ul Urine Mucus (Auto) SLIGHT (NEGATIVE) /HPF Ur Culture Indicated? YES Urine Glucose 500 (NEGATIVE) mg/dL Influenza Type A Ag (NEGATIVE) Influenza Type B Ag (NEGATIVE) RSV (PCR) (Negative) SARS-CoV-2 (PCR) (NEGATIVE) 01/19/22 01/19/22 01/19/22 Range/Units 17:51 17:51 17:50 WBC 8.2 (4.0-10.5) x10^3/uL RBC 4.73 (4.1-5.6) x10^6/uL Hgb 13.4 (12.5-18.0) g/dL Hct 40.4 L (42-50) % MCV 85.4 (78-100) fL MCH 28.3 (26-32) pg MCHC 33.2 (32-36) g/dL RDW 13.1 (11.5-14.0) % Plt Count 554 H (150-450) x10^3/uL MPV 8.6 (7.5-11.0) fL Gran % 69.8 H (36.0-66.0) % Immature Gran % (Auto) 0.6 H (0.00-0.4) % Nucleat RBC Rel Count 0.0 (0.00-0.1) % Eos # (Auto) 0.32 (0-0.5) x10^3/uL Immature Gran # (Auto) 0.05 H (0.00-0.03) x10^3u/L Absolute Lymphs (auto) 0.98 L (1.0-4.6) x10^3/uL Absolute Monos (auto) 1.09 (0.0-1.3) x10^3/uL Absolute Nucleated RBC 0.00 (0.00-0.01) x10^3u/L Lymphocytes % 11.9 L (24.0-44.0) % Monocytes % 13.3 H (0.0-12.0) % Eosinophils % 3.9 (0.00-5.0) % Basophils % 0.5 (0.0-0.4) % Absolute Granulocytes 5.73 (1.4-6.9) x10^3/uL Basophils # 0.04 (0-0.4) x10^3/uL pO2/FiO2 Ratio 21.0 % VBG pH 7.66 H* (7.32-7.42) VBG pCO2 at Pat Temp 26 L (42-55) mm/Hg VBG pO2 at Pat Temp 46 H (25-40) mm/Hg VBG HCO3 29.3 H* (22-28) meq/L VBG O2 Sat (Jalen) 86.7 L (95-100) VBG Base Excess 9.4 H (-2.0-2.0) VBG Hemoglobin 14.7 VBG Carboxyhemoglobin 5.1 (0.0-6.9) % T HGB POC Potassium 4.6 (3.5-5.1) Sodium (137-145) mmol/L Potassium (3.5-5.1) mmol/L Chloride (98-107) mmol/L Carbon Dioxide (22-30) mmol/L Anion Gap (5-15) MEQ/L BUN (9-20) mg/dL Creatinine (0.66-1.25) mg/dL Estimated GFR ML/MIN Glucose (74-106) mg/dL POC Glucometer (74 to 106) mg/dL Lactic Acid 2.7 H (0.4-2.0) Calcium (8.4-10.2) mg/dL Total Bilirubin (0.2-1.3) mg/dL AST (17-59) U/L ALT (0-50) U/L Alkaline Phosphatase (38-126) U/L Troponin I (0.000-0.034) ng/mL Serum Total Protein (6.3-8.2) g/dL Albumin (3.5-5.0) g/dL Lipase (23-300) U/L Urinalys Dipstick Clnc Urine Color (YELLOW) Urine Appearance (CLEAR) Urine pH (5-6) Ur Specific [place] (1.005-1.025) POC Urine Protein Conf (Negative) Urine Ketones (NEGATIVE) Urine Nitrite (NEGATIVE) Urine Bilirubin (NEGATIVE) Urine Urobilinogen (0-1) mg/dL Urine Leukocytes (NEGATIVE) Urine WBC (Auto) (0-5) /HPF Urine RBC (Auto) (0-2) /HPF U Hyaline Cast (Auto) (0-2) /LPF U Epithel Cells (Auto) (FEW) /HPF Urine Bacteria (Auto) (NEGATIVE) /HPF Urine RBC (0-5) Tomas/ul Urine Mucus (Auto) (NEGATIVE) /HPF Ur Culture Indicated? Urine Glucose (NEGATIVE) mg/dL Influenza Type A Ag (NEGATIVE) Influenza Type B Ag (NEGATIVE) RSV (PCR) (Negative) SARS-CoV-2 (PCR) (NEGATIVE) 01/19/22 01/19/22 01/19/22 Range/Units 17:30 17:30 17:19 WBC (4.0-10.5) x10^3/uL RBC (4.1-5.6) x10^6/uL Hgb (12.5-18.0) g/dL Hct (42-50) % MCV (78-100) fL MCH (26-32) pg MCHC (32-36) g/dL RDW (11.5-14.0) % Plt Count (150-450) x10^3/uL MPV (7.5-11.0) fL Gran % (36.0-66.0) % Immature Gran % (Auto) (0.00-0.4) % Nucleat RBC Rel Count (0.00-0.1) % Eos # (Auto) (0-0.5) x10^3/uL Immature Gran # (Auto) (0.00-0.03) x10^3u/L Absolute Lymphs (auto) (1.0-4.6) x10^3/uL Absolute Monos (auto) (0.0-1.3) x10^3/uL Absolute Nucleated RBC (0.00-0.01) x10^3u/L Lymphocytes % (24.0-44.0) % Monocytes % (0.0-12.0) % Eosinophils % (0.00-5.0) % Basophils % (0.0-0.4) % Absolute Granulocytes (1.4-6.9) x10^3/uL Basophils # (0-0.4) x10^3/uL pO2/FiO2 Ratio % VBG pH (7.32-7.42) VBG pCO2 at Pat Temp (42-55) mm/Hg VBG pO2 at Pat Temp (25-40) mm/Hg VBG HCO3 (22-28) meq/L VBG O2 Sat (Jalen) (95-100) VBG Base Excess (-2.0-2.0) VBG Hemoglobin VBG Carboxyhemoglobin (0.0-6.9) % T HGB POC Potassium (3.5-5.1) Sodium 130 L (137-145) mmol/L Potassium 4.5 (3.5-5.1) mmol/L Chloride 90 L (98-107) mmol/L Carbon Dioxide 27 (22-30) mmol/L Anion Gap 17.3 H (5-15) MEQ/L BUN 25 H (9-20) mg/dL Creatinine 1.73 H (0.66-1.25) mg/dL Estimated GFR 47.7 ML/MIN Glucose 245 H (74-106) mg/dL POC Glucometer 212 H (74 to 106) mg/dL Lactic Acid (0.4-2.0) Calcium 9.6 (8.4-10.2) mg/dL Total Bilirubin 1.20 (0.2-1.3) mg/dL AST 36 (17-59) U/L ALT 17 (0-50) U/L Alkaline Phosphatase 180 H (38-126) U/L Troponin I 0.015 (0.000-0.034) ng/mL Serum Total Protein 8.2 (6.3-8.2) g/dL Albumin 4.0 (3.5-5.0) g/dL Lipase 23 (23-300) U/L Urinalys Dipstick Clnc Urine Color (YELLOW) Urine Appearance (CLEAR) Urine pH (5-6) Ur Specific [place] (1.005-1.025) POC Urine Protein Conf (Negative) Urine Ketones (NEGATIVE) Urine Nitrite (NEGATIVE) Urine Bilirubin (NEGATIVE) Urine Urobilinogen (0-1) mg/dL Urine Leukocytes (NEGATIVE) Urine WBC (Auto) (0-5) /HPF Urine RBC (Auto) (0-2) /HPF U Hyaline Cast (Auto) (0-2) /LPF U Epithel Cells (Auto) (FEW) /HPF Urine Bacteria (Auto) (NEGATIVE) /HPF Urine RBC (0-5) Tomas/ul Urine Mucus (Auto) (NEGATIVE) /HPF Ur Culture Indicated? Urine Glucose (NEGATIVE) mg/dL Influenza Type A Ag (NEGATIVE) Influenza Type B Ag (NEGATIVE) RSV (PCR) (Negative) SARS-CoV-2 (PCR) (NEGATIVE) - Progress Progress: unchanged <YUE OLIVER - Last Filed: 01/25/22 21:52> - Progress Progress Note: 01/19/22 18:51 work-up is pending, care is transferred to Dr. Pereira at shift change for final disposition. (YUE OLIVER) - Departure Departure Disposition: Observation Critical Care Time: No <ERICK PEREIRA - Last Filed: 01/19/22 21:09> <YUE OLIVER - Last Filed: 01/25/22 21:52> - Departure Clinical Impression: DKA (diabetic ketoacidosis) Condition: Stable
[2022-01-19 17:52] LABS: Absolute Neutrophil Ct (ANC) 5.73 x10^3/uL (1.4-6.9); Basophil (Absolute #) 0.04 x10^3/uL (0-0.4); Eosinophil % 3.9 % (0.00-5.0); Eosinophil (Absolute #) 0.32 x10^3/uL (0-0.5); Hematocrit 40.4 % (42-50); Hemoglobin 13.4 g/dL (12.5-18.0); Lymphocyte (Absolute #) 0.98 x10^3/uL (1.0-4.6); Lymphocytes % 11.9 % (24.0-44.0); Mean Cell Volume 85.4 fL (78-100); Mean Corpuscular Hemoglobin 28.3 pg (26-32); Mean Corpuscular Hgb Concent. 33.2 g/dL (32-36); Mean Platelet Volume 8.6 fL (7.5-11.0); Monocyte (Absolute #) 1.09 x10^3/uL (0.0-1.3); Monocytes % 13.3 % (0.0-12.0); Neutrophil % 69.8 % (36.0-66.0); Platelet Count 554 x10^3/uL (150-450); Red Blood Count 4.73 x10^6/uL (4.1-5.6); Red Cell Distribution Width 13.1 % (11.5-14.0); White Blood Count 8.2 x10^3/uL (4.0-10.5)
[2022-01-19 17:54] LABS: VBG BASE EXCESS 9.4 (-2.0-2.0); VBG CARBOXYHEMOGLOBIN 5.1 % T HGB (0.0-6.9); VBG HCO3- 29.3 meq/L (22-28); VBG HEMOGLOBIN 14.7; VBG O2 SATURATION 86.7 (95-100); VBG POTASSIUM 4.6 (3.5-5.1)
[2022-01-19 17:55] LABS: VBG pH 7.66 (7.32-7.42)
[2022-01-19 18:08] LABS: ANION GAP 17.3 MEQ/L (5-15); BILIRUBIN,TOTAL 1.2 mg/dL (0.2-1.3); Calcium 9.6 mg/dL (8.4-10.2); Creatinine 1 1.73 mg/dL (0.66-1.25); EST GLOMERULAR FILTRATION RATE 47.7 ML/MIN; Potassium 4.5 mmol/L (3.5-5.1); Total Protein 8.2 g/dL (6.3-8.2)
[2022-01-19] MEDS ORDERED: Zofran 4 MG/2 ML VIAL ONE (18:49)
[2022-01-19] MEDS ORDERED: Sodium Chloride 0.9% 1000 ML 1,000 ML ONE ×2 (18:50→20:02)
[2022-01-19] MEDS ORDERED: MORPHINE SULFATE 4 MG INJ ONE (18:50)
[2022-01-19] MEDS ORDERED: HUMULIN R SQ ONE (19:57)
[2022-01-19] MEDS ORDERED: HUMULIN R ONE (20:02)
[2022-01-19 20:36] LABS: Appearance CLEAR (CLEAR)
[2022-01-19 20:37] LABS: Bilirubin NEGATIVE (NEGATIVE); Dipstick done @ ? MAIN LAB; Glucose 500 mg/dL (NEGATIVE); Ketones MODERATE-40 (NEGATIVE); Nitrite NEGATIVE (NEGATIVE); Protein,Urine Dip >=300 (Negative); RBC TRACE-INTACT Ery/ul (0-5); Specific Gravity 1.025 (1.005-1.025); Urobilinogen 1 mg/dL (0-1)
[2022-01-19 20:45] LABS: Bacteria RARE /HPF (NEGATIVE); Hyaline Casts 0-2 /LPF (0-2); Mucus SLIGHT /HPF (NEGATIVE); RBC 0-2 /HPF (0-2); Urine Cultured Indicated? YES; WBC 0-2 /HPF (0-5)
[2022-01-19] MEDS ORDERED: HUMALOG SQ PRN (21:20)
[2022-01-19] MEDS ORDERED: Hydromorphone 1 mg/ml Injection IV PRN (21:22)
--- NOTE | 2022-01-19 22:18 | XRAY ---
Indication: Upper abdomen pain, nausea, vomiting, and diarrhea. Multiple contiguous axial images obtained through the abdomen and pelvis without contrast. Comparison: August 08, 2021. Lung bases demonstrates new 3-4 mm anterior right middle lobe and posterior right lower lobe subpleural noncalcified nodules, probably granulomatous in this demographic. No infiltrate or effusion. Heart not enlarged. Noncontrasted stomach and bowel loops appear nonobstructed with normal appendix. No free fluid/air. Maintaining liver, gallbladder, pancreas, spleen, adrenal glands, kidneys, ureters, and bladder are unremarkable for noncontrast exam. Again minimal aortoiliac calcifications without AAA. Osseous structures intact again with bilateral L5 spondylolysis without listhesis. Right abdominal wall demonstrates 2 new subcutaneous foci of induration presumed iatrogenic. Impression: 1. New right middle and right lower lobe noncalcified micronodules, possibly granulomatous in this demographic. 2. Stable L5 spondylolysis without listhesis. 3. Remaining CT abdomen/pelvis without contrast exam is negative. Comment: Preliminary interpretation made by [facility]. No critical discrepancy.
--- NOTE | 2022-01-19 22:18 | XRAY ---
Indication: Chest and abdomen pain 2 months. Diabetic ketoacidosis. Comparison: August 28, 2021. Portable chest continues to demonstrate normal heart, lungs, and bony thorax.
[2022-01-19 22:24] LABS: INFLUENZA A NEGATIVE (NEGATIVE); INFLUENZA B NEGATIVE (NEGATIVE); RESPIRATORY SYNCTIAL VIRUS NEGATIVE (Negative); SARS-CoV-2 Xpert Express NEGATIVE (NEGATIVE)
[2022-01-20] MEDS: Zofran 4 MG/2 ML VIAL IV PRN ×4 (00:39→18:44)
[2022-01-20] MEDS: HUMALOG SQ PRN ×4 (06:04→21:21)
[2022-01-20 06:16] LABS: Absolute Neutrophil Ct (ANC) 5.25 x10^3/uL (1.4-6.9); Basophil (Absolute #) 0.04 x10^3/uL (0-0.4); Eosinophil % 5.8 % (0.00-5.0); Eosinophil (Absolute #) 0.45 x10^3/uL (0-0.5); Hematocrit 32.7 % (42-50); Hemoglobin 10.7 g/dL (12.5-18.0); Lymphocyte (Absolute #) 0.92 x10^3/uL (1.0-4.6); Lymphocytes % 11.8 % (24.0-44.0); Mean Cell Volume 87.7 fL (78-100); Mean Corpuscular Hemoglobin 28.7 pg (26-32); Mean Corpuscular Hgb Concent. 32.7 g/dL (32-36); Mean Platelet Volume 8.3 fL (7.5-11.0); Monocyte (Absolute #) 1.07 x10^3/uL (0.0-1.3); Monocytes % 13.8 % (0.0-12.0); Neutrophil % 67.6 % (36.0-66.0); Platelet Count 464 x10^3/uL (150-450); Red Blood Count 3.73 x10^6/uL (4.1-5.6); Red Cell Distribution Width 13.6 % (11.5-14.0); White Blood Count 7.8 x10^3/uL (4.0-10.5)
[2022-01-20 06:31] LABS: ALBUMIN 2.7 g/dL (3.5-5.0); ANION GAP 10.6 MEQ/L (5-15); BILIRUBIN,TOTAL 0.7 mg/dL (0.2-1.3); Calcium 8.1 mg/dL (8.4-10.2); Creatinine 1 1.55 mg/dL (0.66-1.25); EST GLOMERULAR FILTRATION RATE 54.2 ML/MIN; Potassium 4.2 mmol/L (3.5-5.1); Total Protein 5.8 g/dL (6.3-8.2)
[2022-01-20] MEDS: Sodium Chloride 0.9% 1000 ML 1,000 ML IV SCH ×2 (08:44→17:48)
[2022-01-20] MEDS: PROTONIX 40 MG IV IV SCH (13:15)
--- NOTE | 2022-01-20 15:35 | PCM.HP ---
History of Present Illness - Chief Complaint Chief Complaint: abd pain, N/V History of Present Illness: is a 36 year old male pt familiar to me, Type I diabetic, who was admitted through ER with N/V/abdominal pain. He says he has had abd pain for the past 1 mo, but has been worse the past 4-5d. Pain is epigastric, pressure, with burning radiating up the chest. Constant, 8/10 initially, but 6/10 now. Nonradiating. Had palpitations, nausea, and vomiting. No diarrhea, no fever. CT abd/pelvis nonacute. WBC nl. BS in the 200s. AG initially 17.3 but normal this morning (10.6). Lactate initially 2.7, but today 1.1. eGFR initially 47.7, but 54.2 this morning. Per ER note, and seemingly with pt's agreement, he was in [facility] ER last week for DKA then was released on some blood pressure medicine, that pt says he's been taking. However, [facility] has no record of his visit. He is unable to tell me what the BP med may be, and said he just got it at the hospital, not at a pharmacy. He said since he started that med, he's been having epigastric muscle spasms. c/o L calf pain - tight muscle spasm that gets painful. No edema. - Review of Systems Cardiac: Chest Pain, Palpitations Abdominal/Gastrointestinal: Abdominal Pain, Nausea, Vomiting Musculoskeletal: Other (L leg pain (calf)) Psychological: Anxiety (almost hyperventilating/panic attacks daily) Medications & Allergies Home Medications: Home Medication List Insulin Lispro [Admelog Solostar] 1 unit SQ TIDWMEALS 03/30/21 [History Confirme d 01/19/22] Allergies/Adverse Reactions: Allergies Allergy/AdvReac Type Severity Reaction Status Date / Time No Known Drug Allergies Allergy Verified 01/19/22 17:14 - Past Medical History Past Medical History: Yes Neurological History: No Pertinent History ENT History: No Pertinent History Cardiac History: Hypertension Respiratory History: No Pertinent History Endocrine Medical History: Diabetes Type I Musculoskelatal History: No Pertinent History GI Medical History: No Pertinent History History: No Pertinent History Pyscho-Social History: Anxiety, Depression Male Reproductive Disorders: No Pertinent History Comment: DKA - Past Surgical History Past Surgical History: No Neuro Surgical History: No Pertinent History Cardiac History: No Pertinent History Respiratory Surgery: No Pertinent History GI Surgical History: No Pertinent History Genitourinary Surgical Hx: No Pertinent History Musculskeletal Surgical Hx: No Pertinent History Male Surgical History: No Pertinent History Other Surgical History: . - Social History Smoking Status: Former smoker Exposure to second hand smoke: No Alcohol: None Drug Use: marijuana - Physical Exam Vital Signs: Vital Signs - 24 hr Temp Pulse Resp BP Pulse Ox 01/20/22 12:00 98.6 F 80 18 169/91 95 01/20/22 07:54 98.2 F 77 20 143/77 98 01/20/22 04:00 98.0 F 87 16 144/92 98 01/19/22 23:14 97.8 F 82 18 174/96 98 01/19/22 20:04 18 159/98 98 01/19/22 19:02 90 18 98 01/19/22 18:55 90 18 98 01/19/22 17:27 100 01/19/22 17:09 97.0 F 100 H 18 129/88 100 General Appearance: no apparent distress, alert, other (talkative) Neurologic Exam: oriented x 3, cooperative, other (somewhat limited affect) Eye Exam: eyes nml inspection Ears, Nose, Throat Exam: moist mucous membranes Neck Exam: normal inspection, non-tender, No lymphadenopathy, No subcutaneous emphysema, No thyromegaly Respiratory Exam: normal breath sounds, lungs clear, No diminished breath sounds, No accessory muscle use, No crackles/rales, No rhonchi, No wheezing Cardiovascular Exam: regular rate/rhythm, normal heart sounds, No murmur Results - Labs Lab/Micro Results: Lab Results-Last 24 Hours 01/19/22 01/19/22 01/19/22 Range/Units 17:19 17:30 17:30 WBC (4.0-10.5) x10^3/uL RBC (4.1-5.6) x10^6/uL Hgb (12.5-18.0) g/dL Hct (42-50) % MCV (78-100) fL MCH (26-32) pg MCHC (32-36) g/dL RDW (11.5-14.0) % Plt Count (150-450) x10^3/uL MPV (7.5-11.0) fL Gran % (36.0-66.0) % Immature Gran % (Auto) (0.00-0.4) % Nucleat RBC Rel Count (0.00-0.1) % Eos # (Auto) (0-0.5) x10^3/uL Immature Gran # (Auto) (0.00-0.03) x10^3u/L Absolute Lymphs (auto) (1.0-4.6) x10^3/uL Absolute Monos (auto) (0.0-1.3) x10^3/uL Absolute Nucleated RBC (0.00-0.01) x10^3u/L Lymphocytes % (24.0-44.0) % Monocytes % (0.0-12.0) % Eosinophils % (0.00-5.0) % Basophils % (0.0-0.4) % Absolute Granulocytes (1.4-6.9) x10^3/uL Basophils # (0-0.4) x10^3/uL pO2/FiO2 Ratio % VBG pH (7.32-7.42) VBG pCO2 at Pat Temp (42-55) mm/Hg VBG pO2 at Pat Temp (25-40) mm/Hg VBG HCO3 (22-28) meq/L VBG O2 Sat (Jalen) (95-100) VBG Base Excess (-2.0-2.0) VBG Hemoglobin VBG Carboxyhemoglobin (0.0-6.9) % T HGB POC Potassium (3.5-5.1) Sodium 130 L (137-145) mmol/L Potassium 4.5 (3.5-5.1) mmol/L Chloride 90 L (98-107) mmol/L Carbon Dioxide 27 (22-30) mmol/L Anion Gap 17.3 H (5-15) MEQ/L BUN 25 H (9-20) mg/dL Creatinine 1.73 H (0.66-1.25) mg/dL Estimated GFR 47.7 ML/MIN Glucose 245 H (74-106) mg/dL POC Glucometer 212 H (74 to 106) mg/dL Lactic Acid (0.4-2.0) Calcium 9.6 (8.4-10.2) mg/dL Magnesium (1.6-2.3) mg/dL Total Bilirubin 1.20 (0.2-1.3) mg/dL AST 36 (17-59) U/L ALT 17 (0-50) U/L Alkaline Phosphatase 180 H (38-126) U/L Troponin I 0.015 (0.000-0.034) ng/mL Serum Total Protein 8.2 (6.3-8.2) g/dL Albumin 4.0 (3.5-5.0) g/dL Lipase 23 (23-300) U/L Urinalys Dipstick Clnc Urine Color (YELLOW) Urine Appearance (CLEAR) Urine pH (5-6) Ur Specific Gillett (1.005-1.025) POC Urine Protein Conf (Negative) Urine Ketones (NEGATIVE) Urine Nitrite (NEGATIVE) Urine Bilirubin (NEGATIVE) Urine Urobilinogen (0-1) mg/dL Urine Leukocytes (NEGATIVE) Urine WBC (Auto) (0-5) /HPF Urine RBC (Auto) (0-2) /HPF U Hyaline Cast (Auto) (0-2) /LPF U Epithel Cells (Auto) (FEW) /HPF Urine Bacteria (Auto) (NEGATIVE) /HPF Urine RBC (0-5) Tomas/ul Urine Mucus (Auto) (NEGATIVE) /HPF Ur Culture Indicated? Urine Glucose (NEGATIVE) mg/dL Influenza Type A Ag (NEGATIVE) Influenza Type B Ag (NEGATIVE) RSV (PCR) (Negative) SARS-CoV-2 (PCR) (NEGATIVE) 01/19/22 01/19/22 01/19/22 Range/Units 17:50 17:51 17:51 WBC 8.2 (4.0-10.5) x10^3/uL RBC 4.73 (4.1-5.6) x10^6/uL Hgb 13.4 (12.5-18.0) g/dL Hct 40.4 L (42-50) % MCV 85.4 (78-100) fL MCH 28.3 (26-32) pg MCHC 33.2 (32-36) g/dL RDW 13.1 (11.5-14.0) % Plt Count 554 H (150-450) x10^3/uL MPV 8.6 (7.5-11.0) fL Gran % 69.8 H (36.0-66.0) % Immature Gran % (Auto) 0.6 H (0.00-0.4) % Nucleat RBC Rel Count 0.0 (0.00-0.1) % Eos # (Auto) 0.32 (0-0.5) x10^3/uL Immature Gran # (Auto) 0.05 H (0.00-0.03) x10^3u/L Absolute Lymphs (auto) 0.98 L (1.0-4.6) x10^3/uL Absolute Monos (auto) 1.09 (0.0-1.3) x10^3/uL Absolute Nucleated RBC 0.00 (0.00-0.01) x10^3u/L Lymphocytes % 11.9 L (24.0-44.0) % Monocytes % 13.3 H (0.0-12.0) % Eosinophils % 3.9 (0.00-5.0) % Basophils % 0.5 (0.0-0.4) % Absolute Granulocytes 5.73 (1.4-6.9) x10^3/uL Basophils # 0.04 (0-0.4) x10^3/uL pO2/FiO2 Ratio 21.0 % VBG pH 7.66 H* (7.32-7.42) VBG pCO2 at Pat Temp 26 L (42-55) mm/Hg VBG pO2 at Pat Temp 46 H (25-40) mm/Hg VBG HCO3 29.3 H* (22-28) meq/L VBG O2 Sat (Jalen) 86.7 L (95-100) VBG Base Excess 9.4 H (-2.0-2.0) VBG Hemoglobin 14.7 VBG Carboxyhemoglobin 5.1 (0.0-6.9) % T HGB POC Potassium 4.6 (3.5-5.1) Sodium (137-145) mmol/L Potassium (3.5-5.1) mmol/L Chloride (98-107) mmol/L Carbon Dioxide (22-30) mmol/L Anion Gap (5-15) MEQ/L BUN (9-20) mg/dL Creatinine (0.66-1.25) mg/dL Estimated GFR ML/MIN Glucose (74-106) mg/dL POC Glucometer (74 to 106) mg/dL Lactic Acid 2.7 H (0.4-2.0) Calcium (8.4-10.2) mg/dL Magnesium (1.6-2.3) mg/dL Total Bilirubin (0.2-1.3) mg/dL AST (17-59) U/L ALT (0-50) U/L Alkaline Phosphatase (38-126) U/L Troponin I (0.000-0.034) ng/mL Serum Total Protein (6.3-8.2) g/dL Albumin (3.5-5.0) g/dL Lipase (23-300) U/L Urinalys Dipstick Clnc Urine Color (YELLOW) Urine Appearance (CLEAR) Urine pH (5-6) Ur Specific Gillett (1.005-1.025) POC Urine Protein Conf (Negative) Urine Ketones (NEGATIVE) Urine Nitrite (NEGATIVE) Urine Bilirubin (NEGATIVE) Urine Urobilinogen (0-1) mg/dL Urine Leukocytes (NEGATIVE) Urine WBC (Auto) (0-5) /HPF Urine RBC (Auto) (0-2) /HPF U Hyaline Cast (Auto) (0-2) /LPF U Epithel Cells (Auto) (FEW) /HPF Urine Bacteria (Auto) (NEGATIVE) /HPF Urine RBC (0-5) Tomas/ul Urine Mucus (Auto) (NEGATIVE) /HPF Ur Culture Indicated? Urine Glucose (NEGATIVE) mg/dL Influenza Type A Ag (NEGATIVE) Influenza Type B Ag (NEGATIVE) RSV (PCR) (Negative) SARS-CoV-2 (PCR) (NEGATIVE) 01/19/22 01/19/22 01/19/22 Range/Units 19:49 19:57 20:31 WBC (4.0-10.5) x10^3/uL RBC (4.1-5.6) x10^6/uL Hgb (12.5-18.0) g/dL Hct (42-50) % MCV (78-100) fL MCH (26-32) pg MCHC (32-36) g/dL RDW (11.5-14.0) % Plt Count (150-450) x10^3/uL MPV (7.5-11.0) fL Gran % (36.0-66.0) % Immature Gran % (Auto) (0.00-0.4) % Nucleat RBC Rel Count (0.00-0.1) % Eos # (Auto) (0-0.5) x10^3/uL Immature Gran # (Auto) (0.00-0.03) x10^3u/L Absolute Lymphs (auto) (1.0-4.6) x10^3/uL Absolute Monos (auto) (0.0-1.3) x10^3/uL Absolute Nucleated RBC (0.00-0.01) x10^3u/L Lymphocytes % (24.0-44.0) % Monocytes % (0.0-12.0) % Eosinophils % (0.00-5.0) % Basophils % (0.0-0.4) % Absolute Granulocytes (1.4-6.9) x10^3/uL Basophils # (0-0.4) x10^3/uL pO2/FiO2 Ratio % VBG pH (7.32-7.42) VBG pCO2 at Pat Temp (42-55) mm/Hg VBG pO2 at Pat Temp (25-40) mm/Hg VBG HCO3 (22-28) meq/L VBG O2 Sat (Jalen) (95-100) VBG Base Excess (-2.0-2.0) VBG Hemoglobin VBG Carboxyhemoglobin (0.0-6.9) % T HGB POC Potassium (3.5-5.1) Sodium (137-145) mmol/L Potassium (3.5-5.1) mmol/L Chloride (98-107) mmol/L Carbon Dioxide (22-30) mmol/L Anion Gap (5-15) MEQ/L BUN (9-20) mg/dL Creatinine (0.66-1.25) mg/dL Estimated GFR ML/MIN Glucose (74-106) mg/dL POC Glucometer (74 to 106) mg/dL Lactic Acid 1.1 (0.4-2.0) Calcium (8.4-10.2) mg/dL Magnesium (1.6-2.3) mg/dL Total Bilirubin (0.2-1.3) mg/dL AST (17-59) U/L ALT (0-50) U/L Alkaline Phosphatase (38-126) U/L Troponin I < 0.012 (0.000-0.034) ng/mL Serum Total Protein (6.3-8.2) g/dL Albumin (3.5-5.0) g/dL Lipase (23-300) U/L Urinalys Dipstick Clnc MAIN LAB Urine Color YELLOW (YELLOW) Urine Appearance CLEAR (CLEAR) Urine pH 7.0 (5-6) Ur Specific Gillett 1.025 (1.005-1.025) POC Urine Protein Conf >=300 (Negative) Urine Ketones MODERATE-40 (NEGATIVE) Urine Nitrite NEGATIVE (NEGATIVE) Urine Bilirubin NEGATIVE (NEGATIVE) Urine Urobilinogen 1 (0-1) mg/dL Urine Leukocytes NEGATIVE (NEGATIVE) Urine WBC (Auto) 0-2 (0-5) /HPF Urine RBC (Auto) 0-2 (0-2) /HPF U Hyaline Cast (Auto) 0-2 (0-2) /LPF U Epithel Cells (Auto) NONE (FEW) /HPF Urine Bacteria (Auto) RARE (NEGATIVE) /HPF Urine RBC TRACE-INTACT (0-5) Tomas/ul Urine Mucus (Auto) SLIGHT (NEGATIVE) /HPF Ur Culture Indicated? YES Urine Glucose 500 (NEGATIVE) mg/dL Influenza Type A Ag (NEGATIVE) Influenza Type B Ag (NEGATIVE) RSV (PCR) (Negative) SARS-CoV-2 (PCR) (NEGATIVE) 01/19/22 01/19/22 01/19/22 Range/Units 20:31 20:50 23:10 WBC (4.0-10.5) x10^3/uL RBC (4.1-5.6) x10^6/uL Hgb (12.5-18.0) g/dL Hct (42-50) % MCV (78-100) fL MCH (26-32) pg MCHC (32-36) g/dL RDW (11.5-14.0) % Plt Count (150-450) x10^3/uL MPV (7.5-11.0) fL Gran % (36.0-66.0) % Immature Gran % (Auto) (0.00-0.4) % Nucleat RBC Rel Count (0.00-0.1) % Eos # (Auto) (0-0.5) x10^3/uL Immature Gran # (Auto) (0.00-0.03) x10^3u/L Absolute Lymphs (auto) (1.0-4.6) x10^3/uL Absolute Monos (auto) (0.0-1.3) x10^3/uL Absolute Nucleated RBC (0.00-0.01) x10^3u/L Lymphocytes % (24.0-44.0) % Monocytes % (0.0-12.0) % Eosinophils % (0.00-5.0) % Basophils % (0.0-0.4) % Absolute Granulocytes (1.4-6.9) x10^3/uL Basophils # (0-0.4) x10^3/uL pO2/FiO2 Ratio % VBG pH (7.32-7.42) VBG pCO2 at Pat Temp (42-55) mm/Hg VBG pO2 at Pat Temp (25-40) mm/Hg VBG HCO3 (22-28) meq/L VBG O2 Sat (Jalen) (95-100) VBG Base Excess (-2.0-2.0) VBG Hemoglobin VBG Carboxyhemoglobin (0.0-6.9) % T HGB POC Potassium (3.5-5.1) Sodium (137-145) mmol/L Potassium (3.5-5.1) mmol/L Chloride (98-107) mmol/L Carbon Dioxide (22-30) mmol/L Anion Gap (5-15) MEQ/L BUN (9-20) mg/dL Creatinine (0.66-1.25) mg/dL Estimated GFR ML/MIN Glucose (74-106) mg/dL POC Glucometer 289 H (74 to 106) mg/dL Lactic Acid (0.4-2.0) Calcium (8.4-10.2) mg/dL Magnesium (1.6-2.3) mg/dL Total Bilirubin (0.2-1.3) mg/dL AST (17-59) U/L ALT (0-50) U/L Alkaline Phosphatase (38-126) U/L Troponin I < 0.012 (0.000-0.034) ng/mL Serum Total Protein (6.3-8.2) g/dL Albumin (3.5-5.0) g/dL Lipase (23-300) U/L Urinalys Dipstick Clnc Urine Color (YELLOW) Urine Appearance (CLEAR) Urine pH (5-6) Ur Specific Gillett (1.005-1.025) POC Urine Protein Conf (Negative) Urine Ketones (NEGATIVE) Urine Nitrite (NEGATIVE) Urine Bilirubin (NEGATIVE) Urine Urobilinogen (0-1) mg/dL Urine Leukocytes (NEGATIVE) Urine WBC (Auto) (0-5) /HPF Urine RBC (Auto) (0-2) /HPF U Hyaline Cast (Auto) (0-2) /LPF U Epithel Cells (Auto) (FEW) /HPF Urine Bacteria (Auto) (NEGATIVE) /HPF Urine RBC (0-5) Tomas/ul Urine Mucus (Auto) (NEGATIVE) /HPF Ur Culture Indicated? Urine Glucose (NEGATIVE) mg/dL Influenza Type A Ag NEGATIVE (NEGATIVE) Influenza Type B Ag NEGATIVE (NEGATIVE) RSV (PCR) NEGATIVE (Negative) SARS-CoV-2 (PCR) NEGATIVE (NEGATIVE) 01/19/22 01/20/22 01/20/22 Range/Units 23:40 02:21 05:00 WBC (4.0-10.5) x10^3/uL RBC (4.1-5.6) x10^6/uL Hgb (12.5-18.0) g/dL Hct (42-50) % MCV (78-100) fL MCH (26-32) pg MCHC (32-36) g/dL RDW (11.5-14.0) % Plt Count (150-450) x10^3/uL MPV (7.5-11.0) fL Gran % (36.0-66.0) % Immature Gran % (Auto) (0.00-0.4) % Nucleat RBC Rel Count (0.00-0.1) % Eos # (Auto) (0-0.5) x10^3/uL Immature Gran # (Auto) (0.00-0.03) x10^3u/L Absolute Lymphs (auto) (1.0-4.6) x10^3/uL Absolute Monos (auto) (0.0-1.3) x10^3/uL Absolute Nucleated RBC (0.00-0.01) x10^3u/L Lymphocytes % (24.0-44.0) % Monocytes % (0.0-12.0) % Eosinophils % (0.00-5.0) % Basophils % (0.0-0.4) % Absolute Granulocytes (1.4-6.9) x10^3/uL Basophils # (0-0.4) x10^3/uL pO2/FiO2 Ratio % VBG pH (7.32-7.42) VBG pCO2 at Pat Temp (42-55) mm/Hg VBG pO2 at Pat Temp (25-40) mm/Hg VBG HCO3 (22-28) meq/L VBG O2 Sat (Jalen) (95-100) VBG Base Excess (-2.0-2.0) VBG Hemoglobin VBG Carboxyhemoglobin (0.0-6.9) % T HGB POC Potassium (3.5-5.1) Sodium (137-145) mmol/L Potassium (3.5-5.1) mmol/L Chloride (98-107) mmol/L Carbon Dioxide (22-30) mmol/L Anion Gap (5-15) MEQ/L BUN (9-20) mg/dL Creatinine (0.66-1.25) mg/dL Estimated GFR ML/MIN Glucose (74-106) mg/dL POC Glucometer 145 H (74 to 106) mg/dL Lactic Acid (0.4-2.0) Calcium (8.4-10.2) mg/dL Magnesium 1.9 (1.6-2.3) mg/dL Total Bilirubin (0.2-1.3) mg/dL AST (17-59) U/L ALT (0-50) U/L Alkaline Phosphatase (38-126) U/L Troponin I < 0.012 (0.000-0.034) ng/mL Serum Total Protein (6.3-8.2) g/dL Albumin (3.5-5.0) g/dL Lipase (23-300) U/L Urinalys Dipstick Clnc Urine Color (YELLOW) Urine Appearance (CLEAR) Urine pH (5-6) Ur Specific Gillett (1.005-1.025) POC Urine Protein Conf (Negative) Urine Ketones (NEGATIVE) Urine Nitrite (NEGATIVE) Urine Bilirubin (NEGATIVE) Urine Urobilinogen (0-1) mg/dL Urine Leukocytes (NEGATIVE) Urine WBC (Auto) (0-5) /HPF Urine RBC (Auto) (0-2) /HPF U Hyaline Cast (Auto) (0-2) /LPF U Epithel Cells (Auto) (FEW) /HPF Urine Bacteria (Auto) (NEGATIVE) /HPF Urine RBC (0-5) Tomas/ul Urine Mucus (Auto) (NEGATIVE) /HPF Ur Culture Indicated? Urine Glucose (NEGATIVE) mg/dL Influenza Type A Ag (NEGATIVE) Influenza Type B Ag (NEGATIVE) RSV (PCR) (Negative) SARS-CoV-2 (PCR) (NEGATIVE) 01/20/22 01/20/22 01/20/22 Range/Units 05:39 05:39 05:39 WBC 7.8 (4.0-10.5) x10^3/uL RBC 3.73 L (4.1-5.6) x10^6/uL Hgb 10.7 L D (12.5-18.0) g/dL Hct 32.7 L (42-50) % MCV 87.7 (78-100) fL MCH 28.7 (26-32) pg MCHC 32.7 (32-36) g/dL RDW 13.6 (11.5-14.0) % Plt Count 464 H (150-450) x10^3/uL MPV 8.3 (7.5-11.0) fL Gran % 67.6 H (36.0-66.0) % Immature Gran % (Auto) 0.5 H (0.00-0.4) % Nucleat RBC Rel Count 0.0 (0.00-0.1) % Eos # (Auto) 0.45 (0-0.5) x10^3/uL Immature Gran # (Auto) 0.04 H (0.00-0.03) x10^3u/L Absolute Lymphs (auto) 0.92 L (1.0-4.6) x10^3/uL Absolute Monos (auto) 1.07 (0.0-1.3) x10^3/uL Absolute Nucleated RBC 0.00 (0.00-0.01) x10^3u/L Lymphocytes % 11.8 L (24.0-44.0) % Monocytes % 13.8 H (0.0-12.0) % Eosinophils % 5.8 H (0.00-5.0) % Basophils % 0.5 (0.0-0.4) % Absolute Granulocytes 5.25 (1.4-6.9) x10^3/uL Basophils # 0.04 (0-0.4) x10^3/uL pO2/FiO2 Ratio % VBG pH (7.32-7.42) VBG pCO2 at Pat Temp (42-55) mm/Hg VBG pO2 at Pat Temp (25-40) mm/Hg VBG HCO3 (22-28) meq/L VBG O2 Sat (Jalen) (95-100) VBG Base Excess (-2.0-2.0) VBG Hemoglobin VBG Carboxyhemoglobin (0.0-6.9) % T HGB POC Potassium (3.5-5.1) Sodium 131 L (137-145) mmol/L Potassium 4.2 (3.5-5.1) mmol/L Chloride 94 L (98-107) mmol/L Carbon Dioxide 31 H (22-30) mmol/L Anion Gap 10.6 (5-15) MEQ/L BUN 22 H (9-20) mg/dL Creatinine 1.55 H (0.66-1.25) mg/dL Estimated GFR 54.2 ML/MIN Glucose 264 H (74-106) mg/dL POC Glucometer (74 to 106) mg/dL Lactic Acid (0.4-2.0) Calcium 8.1 L D (8.4-10.2) mg/dL Magnesium (1.6-2.3) mg/dL Total Bilirubin 0.70 (0.2-1.3) mg/dL AST 20 (17-59) U/L ALT 11 (0-50) U/L Alkaline Phosphatase 117 (38-126) U/L Troponin I 0.012 (0.000-0.034) ng/mL Serum Total Protein 5.8 L (6.3-8.2) g/dL Albumin 2.7 L (3.5-5.0) g/dL Lipase (23-300) U/L Urinalys Dipstick Clnc Urine Color (YELLOW) Urine Appearance (CLEAR) Urine pH (5-6) Ur Specific Gillett (1.005-1.025) POC Urine Protein Conf (Negative) Urine Ketones (NEGATIVE) Urine Nitrite (NEGATIVE) Urine Bilirubin (NEGATIVE) Urine Urobilinogen (0-1) mg/dL Urine Leukocytes (NEGATIVE) Urine WBC (Auto) (0-5) /HPF Urine RBC (Auto) (0-2) /HPF U Hyaline Cast (Auto) (0-2) /LPF U Epithel Cells (Auto) (FEW) /HPF Urine Bacteria (Auto) (NEGATIVE) /HPF Urine RBC (0-5) Tomas/ul Urine Mucus (Auto) (NEGATIVE) /HPF Ur Culture Indicated? Urine Glucose (NEGATIVE) mg/dL Influenza Type A Ag (NEGATIVE) Influenza Type B Ag (NEGATIVE) RSV (PCR) (Negative) SARS-CoV-2 (PCR) (NEGATIVE) 01/20/22 01/20/22 Range/Units 05:47 11:35 WBC (4.0-10.5) x10^3/uL RBC (4.1-5.6) x10^6/uL Hgb (12.5-18.0) g/dL Hct (42-50) % MCV (78-100) fL MCH (26-32) pg MCHC (32-36) g/dL RDW (11.5-14.0) % Plt Count (150-450) x10^3/uL MPV (7.5-11.0) fL Gran % (36.0-66.0) % Immature Gran % (Auto) (0.00-0.4) % Nucleat RBC Rel Count (0.00-0.1) % Eos # (Auto) (0-0.5) x10^3/uL Immature Gran # (Auto) (0.00-0.03) x10^3u/L Absolute Lymphs (auto) (1.0-4.6) x10^3/uL Absolute Monos (auto) (0.0-1.3) x10^3/uL Absolute Nucleated RBC (0.00-0.01) x10^3u/L Lymphocytes % (24.0-44.0) % Monocytes % (0.0-12.0) % Eosinophils % (0.00-5.0) % Basophils % (0.0-0.4) % Absolute Granulocytes (1.4-6.9) x10^3/uL Basophils # (0-0.4) x10^3/uL pO2/FiO2 Ratio % VBG pH (7.32-7.42) VBG pCO2 at Pat Temp (42-55) mm/Hg VBG pO2 at Pat Temp (25-40) mm/Hg VBG HCO3 (22-28) meq/L VBG O2 Sat (Jalen) (95-100) VBG Base Excess (-2.0-2.0) VBG Hemoglobin VBG Carboxyhemoglobin (0.0-6.9) % T HGB POC Potassium (3.5-5.1) Sodium (137-145) mmol/L Potassium (3.5-5.1) mmol/L Chloride (98-107) mmol/L Carbon Dioxide (22-30) mmol/L Anion Gap (5-15) MEQ/L BUN (9-20) mg/dL Creatinine (0.66-1.25) mg/dL Estimated GFR ML/MIN Glucose (74-106) mg/dL POC Glucometer 295 H 175 H (74 to 106) mg/dL Lactic Acid (0.4-2.0) Calcium (8.4-10.2) mg/dL Magnesium (1.6-2.3) mg/dL Total Bilirubin (0.2-1.3) mg/dL AST (17-59) U/L ALT (0-50) U/L Alkaline Phosphatase (38-126) U/L Troponin I (0.000-0.034) ng/mL Serum Total Protein (6.3-8.2) g/dL Albumin (3.5-5.0) g/dL Lipase (23-300) U/L Urinalys Dipstick Clnc Urine Color (YELLOW) Urine Appearance (CLEAR) Urine pH (5-6) Ur Specific Gillett (1.005-1.025) POC Urine Protein Conf (Negative) Urine Ketones (NEGATIVE) Urine Nitrite (NEGATIVE) Urine Bilirubin (NEGATIVE) Urine Urobilinogen (0-1) mg/dL Urine Leukocytes (NEGATIVE) Urine WBC (Auto) (0-5) /HPF Urine RBC (Auto) (0-2) /HPF U Hyaline Cast (Auto) (0-2) /LPF U Epithel Cells (Auto) (FEW) /HPF Urine Bacteria (Auto) (NEGATIVE) /HPF Urine RBC (0-5) Tomas/ul Urine Mucus (Auto) (NEGATIVE) /HPF Ur Culture Indicated? Urine Glucose (NEGATIVE) mg/dL Influenza Type A Ag (NEGATIVE) Influenza Type B Ag (NEGATIVE) RSV (PCR) (Negative) SARS-CoV-2 (PCR) (NEGATIVE) Accuchecks Date 01/20/22 Date 01/19/22 Time 11:35 Time 17:20 - Radiology Impressions Radiology Exams & Impressions: Radiology Procedures Category Date Time Status ABDOMEN AND PELVIS W/0 CONTRAS [CT] Stat Exams 01/19/22 17:27 Completed CHEST 1 VIEW (PORTABLE) Stat Exams 01/19/22 21:06 Completed VENOUS UNILAT/LIMITED EXTREMIT [US] Stat Exams 01/20/22 13:44 Taken Assessment/Plan (1) Abdominal pain Current Visit: No Status: Resolved Qualifiers: Abdominal location: generalized Qualified Code(s): R10.84 - Generalized abdominal pain Assessment & Plan: Unsure the etiology - could be stomach ulcer, vs virla syndrome; does seem to be improved. He is on IV PPI; will add H2 cierra. If persistent, would advise pt getting EGD on Saturday. Code(s): R10.9 - UNSPECIFIED ABDOMINAL PAIN (2) Nausea & vomiting Current Visit: No Status: Acute Qualifiers: Vomiting type: unspecified Qualified Code(s): R11.2 - Nausea with vomiting, unspecified Code(s): R11.2 - NAUSEA WITH VOMITING, UNSPECIFIED (3) Diabetes mellitus type I Current Visit: No Status: Chronic Onset Date: ~05/30/18 Qualifiers: Diabetes mellitus complication status: with kidney complications Diabetes mellitus complication detail: with chronic kidney disease Chronic kidney disease stage: stage 2 (mild) Qualified Code(s): E10.22 - Type 1 diabetes mellitus with diabetic chronic kidney disease; N18.2 - Chronic kidney disease, stage 2 (mild) (4) Chronic renal insufficiency Current Visit: No Status: Chronic Qualifiers: Chronic kidney disease stage: stage 2 (mild) Qualified Code(s): N18.2 - Chronic kidney disease, stage 2 (mild) Code(s): N18.9 - CHRONIC KIDNEY DISEASE, UNSPECIFIED
[2022-01-20] MEDS ORDERED: APRESOLINE 20 MG/ML INJ IV PRN (15:43)
[2022-01-20] MEDS: Zestril 10 MG PO SCH (17:20)
--- NOTE | 2022-01-20 20:17 | XRAY ---
Indication: Left calf pain. Two-dimensional sonogram and color Doppler imaging of the major venous vessels of the left leg performed. Comparison: None No thrombus seen in the examined deep venous of the left leg including greater saphenous vein. Veins demonstrate normal compressibility. Venous waveforms are normal with and without augmentation. Impression: Left leg negative for DVT. Comment: Preliminary report given.
[2022-01-20] MEDS: Pepcid 20 MG VIAL IV SCH (21:15)
[2022-01-20] MEDS ORDERED: FAMOTIDINE 20 MG PIGGYBACK 20 MG/50 ML ML IV SCH (22:00)
[2022-01-21] MEDS: HUMALOG SQ PRN ×5 (06:20→21:25)
[2022-01-21 06:56] LABS: Absolute Neutrophil Ct (ANC) 6.04 x10^3/uL (1.4-6.9); Basophil (Absolute #) 0.02 x10^3/uL (0-0.4); Eosinophil % 4.9 % (0.00-5.0); Eosinophil (Absolute #) 0.38 x10^3/uL (0-0.5); Hemoglobin 10.9 g/dL (12.5-18.0); Lymphocyte (Absolute #) 0.63 x10^3/uL (1.0-4.6); Lymphocytes % 8.2 % (24.0-44.0); Mean Cell Volume 86.4 fL (78-100); Mean Corpuscular Hemoglobin 28.5 pg (26-32); Mean Platelet Volume 8.1 fL (7.5-11.0); Monocyte (Absolute #) 0.57 x10^3/uL (0.0-1.3); Monocytes % 7.4 % (0.0-12.0); Neutrophil % 78.5 % (36.0-66.0); Platelet Count 416 x10^3/uL (150-450); Red Blood Count 3.82 x10^6/uL (4.1-5.6); Red Cell Distribution Width 12.9 % (11.5-14.0); White Blood Count 7.7 x10^3/uL (4.0-10.5)
[2022-01-21 07:03] LABS: ALBUMIN 2.8 g/dL (3.5-5.0); ALKALINE PHOSPHATASE 131 U/L (38-126); ANION GAP 11.6 MEQ/L (5-15); BLOOD UREA NITROGEN 12 mg/dL (9-20); CHLORIDE 97 mmol/L (98-107); Calcium 7.9 mg/dL (8.4-10.2); Carbon Dioxide 21 mmol/L (22-30); Creatinine 1 1.22 mg/dL (0.66-1.25); EST GLOMERULAR FILTRATION RATE > 60.0 ML/MIN; Glucose 480 mg/dL (74-106); Potassium 4.6 mmol/L (3.5-5.1); SGOT/AST 23 U/L (17-59); SGPT/ALT 14 U/L (0-50); SODIUM 126 mmol/L (137-145); Total Protein 6.1 g/dL (6.3-8.2)
--- NOTE | 2022-01-21 08:16 | PCM.NOTE ---
Date and Time: 01/21/22810 Subjective Assessment: Pt had BS to 74 at 0030. THis morning he doesn't feel well, as though his BS is high, and in fact it is 481. Abd pain is not bad. Tolerated clear liquids well. IV infiltrated and he is a hard stick - SHOE PULLER contacted to re-establish IV access (thank you). RN noted telemetry with ST changes. - Review of Systems Constitutional: No Fever Abdominal/Gastrointestinal: Abdominal Pain, Nausea Objective Exam General Appearance: mild distress, alert, other (conversant, just appears to not feel well) Neurologic Exam: oriented x 3, cooperative Skin Exam: normal color, warm, dry, No rash Eye Exam: eyes nml inspection Ears, Nose, Throat Exam: moist mucous membranes Neck Exam: normal inspection Respiratory Exam: normal breath sounds, lungs clear, No crackles/rales, No rhonchi, No wheezing Cardiovascular Exam: regular rate/rhythm, normal heart sounds, No murmur Gastrointestinal/Abdomen Exam: soft, normal bowel sounds, No tenderness, No distention, No mass, No guarding, No rebound Extremity Exam: normal inspection, No pedal edema, No swelling Back Exam: normal inspection, No rash OBJECTIVE DATA Vital Signs: Vital Signs - 24 hr Temp Pulse Resp BP Pulse Ox 01/21/22 07:52 97.1 F 77 19 167/86 99 01/21/22 04:00 97.8 F 81 18 168/91 97 01/20/22 23:37 97.5 F 83 16 126/80 98 01/20/22 19:45 97.5 F 90 16 167/94 99 01/20/22 16:00 98.4 F 80 18 182/98 97 01/20/22 12:00 98.6 F 80 18 169/91 95 Pain Assessment - Last Documented Pain Intensity 0 Pain Scale Used 0-10 Pain Scale Intake and Output: Intake & Output 01/18/22 01/19/22 01/20/22 01/21/22 11:59 11:59 11:59 11:59 Intake Total 587 5617 Output Total 036 291 Balance 337 4704 Weight 69.6 kg Lab Results: Lab Results-Last 24 Hours 01/20/22 01/20/22 01/20/22 Range/Units 05:00 11:35 17:44 WBC (4.0-10.5) x10^3/uL RBC (4.1-5.6) x10^6/uL Hgb (12.5-18.0) g/dL Hct (42-50) % MCV (78-100) fL MCH (26-32) pg MCHC (32-36) g/dL RDW (11.5-14.0) % Plt Count (150-450) x10^3/uL MPV (7.5-11.0) fL Gran % (36.0-66.0) % Immature Gran % (Auto) (0.00-0.4) % Nucleat RBC Rel Count (0.00-0.1) % Eos # (Auto) (0-0.5) x10^3/uL Immature Gran # (Auto) (0.00-0.03) x10^3u/L Absolute Lymphs (auto) (1.0-4.6) x10^3/uL Absolute Monos (auto) (0.0-1.3) x10^3/uL Absolute Nucleated RBC (0.00-0.01) x10^3u/L Lymphocytes % (24.0-44.0) % Monocytes % (0.0-12.0) % Eosinophils % (0.00-5.0) % Basophils % (0.0-0.4) % Absolute Granulocytes (1.4-6.9) x10^3/uL Basophils # (0-0.4) x10^3/uL Sodium (137-145) mmol/L Potassium (3.5-5.1) mmol/L Chloride (98-107) mmol/L Carbon Dioxide (22-30) mmol/L Anion Gap (5-15) MEQ/L BUN (9-20) mg/dL Creatinine (0.66-1.25) mg/dL Estimated GFR ML/MIN Glucose (74-106) mg/dL POC Glucometer 175 H 282 H (74 to 106) mg/dL Calcium (8.4-10.2) mg/dL Magnesium 1.9 (1.6-2.3) mg/dL Total Bilirubin (0.2-1.3) mg/dL AST (17-59) U/L ALT (0-50) U/L Alkaline Phosphatase (38-126) U/L Troponin I (0.000-0.034) ng/mL Serum Total Protein (6.3-8.2) g/dL Albumin (3.5-5.0) g/dL 01/20/22 01/21/22 01/21/22 Range/Units 20:50 00:52 05:32 WBC 7.7 (4.0-10.5) x10^3/uL RBC 3.82 L (4.1-5.6) x10^6/uL Hgb 10.9 L (12.5-18.0) g/dL Hct 33.0 L (42-50) % MCV 86.4 (78-100) fL MCH 28.5 (26-32) pg MCHC 33.0 (32-36) g/dL RDW 12.9 (11.5-14.0) % Plt Count 416 (150-450) x10^3/uL MPV 8.1 (7.5-11.0) fL Gran % 78.5 H (36.0-66.0) % Immature Gran % (Auto) 0.7 H (0.00-0.4) % Nucleat RBC Rel Count 0.0 (0.00-0.1) % Eos # (Auto) 0.38 (0-0.5) x10^3/uL Immature Gran # (Auto) 0.05 H (0.00-0.03) x10^3u/L Absolute Lymphs (auto) 0.63 L (1.0-4.6) x10^3/uL Absolute Monos (auto) 0.57 (0.0-1.3) x10^3/uL Absolute Nucleated RBC 0.00 (0.00-0.01) x10^3u/L Lymphocytes % 8.2 L (24.0-44.0) % Monocytes % 7.4 (0.0-12.0) % Eosinophils % 4.9 (0.00-5.0) % Basophils % 0.3 (0.0-0.4) % Absolute Granulocytes 6.04 (1.4-6.9) x10^3/uL Basophils # 0.02 (0-0.4) x10^3/uL Sodium (137-145) mmol/L Potassium (3.5-5.1) mmol/L Chloride (98-107) mmol/L Carbon Dioxide (22-30) mmol/L Anion Gap (5-15) MEQ/L BUN (9-20) mg/dL Creatinine (0.66-1.25) mg/dL Estimated GFR ML/MIN Glucose (74-106) mg/dL POC Glucometer 166 H 74 (74 to 106) mg/dL Calcium (8.4-10.2) mg/dL Magnesium (1.6-2.3) mg/dL Total Bilirubin (0.2-1.3) mg/dL AST (17-59) U/L ALT (0-50) U/L Alkaline Phosphatase (38-126) U/L Troponin I (0.000-0.034) ng/mL Serum Total Protein (6.3-8.2) g/dL Albumin (3.5-5.0) g/dL 01/21/22 01/21/22 01/21/22 Range/Units 05:32 06:14 07:00 WBC (4.0-10.5) x10^3/uL RBC (4.1-5.6) x10^6/uL Hgb (12.5-18.0) g/dL Hct (42-50) % MCV (78-100) fL MCH (26-32) pg MCHC (32-36) g/dL RDW (11.5-14.0) % Plt Count (150-450) x10^3/uL MPV (7.5-11.0) fL Gran % (36.0-66.0) % Immature Gran % (Auto) (0.00-0.4) % Nucleat RBC Rel Count (0.00-0.1) % Eos # (Auto) (0-0.5) x10^3/uL Immature Gran # (Auto) (0.00-0.03) x10^3u/L Absolute Lymphs (auto) (1.0-4.6) x10^3/uL Absolute Monos (auto) (0.0-1.3) x10^3/uL Absolute Nucleated RBC (0.00-0.01) x10^3u/L Lymphocytes % (24.0-44.0) % Monocytes % (0.0-12.0) % Eosinophils % (0.00-5.0) % Basophils % (0.0-0.4) % Absolute Granulocytes (1.4-6.9) x10^3/uL Basophils # (0-0.4) x10^3/uL Sodium 126 L (137-145) mmol/L Potassium 4.6 (3.5-5.1) mmol/L Chloride 97 L (98-107) mmol/L Carbon Dioxide 21 L (22-30) mmol/L Anion Gap 11.6 (5-15) MEQ/L BUN 12 (9-20) mg/dL Creatinine 1.22 (0.66-1.25) mg/dL Estimated GFR > 60.0 ML/MIN Glucose 480 H (74-106) mg/dL POC Glucometer 481 H (74 to 106) mg/dL Calcium 7.9 L (8.4-10.2) mg/dL Magnesium (1.6-2.3) mg/dL Total Bilirubin 0.70 (0.2-1.3) mg/dL AST 23 (17-59) U/L ALT 14 (0-50) U/L Alkaline Phosphatase 131 H (38-126) U/L Troponin I < 0.012 (0.000-0.034) ng/mL Serum Total Protein 6.1 L (6.3-8.2) g/dL Albumin 2.8 L (3.5-5.0) g/dL Radiology Exams: Radiology Procedures Category Date Time Status ABDOMEN AND PELVIS W/0 CONTRAS [CT] Stat Exams 01/19/22 17:27 Completed CHEST 1 VIEW (PORTABLE) Stat Exams 01/19/22 21:06 Completed VENOUS UNILAT/LIMITED EXTREMIT [US] Stat Exams 01/20/22 13:44 Completed Assessment/Plan (1) Abdominal pain Current Visit: No Status: Resolved Qualifiers: Abdominal location: generalized Qualified Code(s): R10.84 - Generalized abdominal pain Assessment & Plan: improved. Had added H2 cierra BID to his PPI yesterday. Will continue to advance diet to full liquid. However, with 1 mo hx abd pain that is different than his usual, will get EGD in the morning. Code(s): R10.9 - UNSPECIFIED ABDOMINAL PAIN (2) Nausea & vomiting Current Visit: No Status: Resolved Qualifiers: Vomiting type: unspecified Qualified Code(s): R11.2 - Nausea with vomiting, unspecified Code(s): R11.2 - NAUSEA WITH VOMITING, UNSPECIFIED (3) Diabetes mellitus type I Current Visit: No Status: Chronic Onset Date: ~05/30/18 Qualifiers: Diabetes mellitus complication status: with kidney complications Diabetes mellitus complication detail: with chronic kidney disease Chronic kidney disease stage: stage 2 (mild) Qualified Code(s): E10.22 - Type 1 diabetes mellitus with diabetic chronic kidney disease; N18.2 - Chronic kidney disease, stage 2 (mild) Assessment & Plan: very non compliant. (4) Chronic renal insufficiency Current Visit: No Status: Chronic Qualifiers: Chronic kidney disease stage: stage 2 (mild) Qualified Code(s): N18.2 - Chronic kidney disease, stage 2 (mild) Assessment & Plan: renal function good today. Turned IVF down from 250mL/hr to LR at 70mL/hr. Code(s): N18.9 - CHRONIC KIDNEY DISEASE, UNSPECIFIED (5) Abnormal EKG Current Visit: Yes Status: Acute Assessment & Plan: 12 lead EKG with nonspecific ST changes - a difference from 01/19/22 - I spoke with Dr. Mcpherson, senior electronics design engineer for [facility] cardiology, and he does not think there is an acute issue, but pt could have LVH - advised a few troponins if symptomatic, and check echo. Code(s): R94.31 - ABNORMAL ELECTROCARDIOGRAM [ECG] [EKG] (6) Hyponatremia Current Visit: No Status: Acute Assessment & Plan: Worse today - I anticipate this will improve with change in IV fluids - recheck BMP at 1400. Code(s): E87.1 - HYPO-OSMOLALITY AND HYPONATREMIA
[2022-01-21] MEDS: Zestril 10 MG PO SCH (08:28)
[2022-01-21] MEDS: Zofran 4 MG/2 ML VIAL IV PRN (08:28)
[2022-01-21] MEDS: Pepcid 20 MG VIAL IV SCH ×2 (08:28→21:26)
[2022-01-21] MEDS: PROTONIX 40 MG IV IV SCH (08:28)
[2022-01-21] MEDS: Lactated Ringers 1,000 ML IV SCH ×2 (08:28→23:37)
[2022-01-21 14:28] LABS: ANION GAP 14.8 MEQ/L (5-15); BLOOD UREA NITROGEN 10 mg/dL (9-20); CHLORIDE 100 mmol/L (98-107); Calcium 8.2 mg/dL (8.4-10.2); Carbon Dioxide 18 mmol/L (22-30); Creatinine 1 1.15 mg/dL (0.66-1.25); EST GLOMERULAR FILTRATION RATE > 60.0 ML/MIN; Glucose 272 mg/dL (74-106); Potassium 4.5 mmol/L (3.5-5.1); SODIUM 129 mmol/L (137-145)
[2022-01-22 08:02] LABS: Absolute Neutrophil Ct (ANC) 6.54 x10^3/uL (1.4-6.9); Basophil (Absolute #) 0.03 x10^3/uL (0-0.4); Eosinophil % 4.6 % (0.00-5.0); Hematocrit 31.2 % (42-50); Hemoglobin 10.6 g/dL (12.5-18.0); Lymphocyte (Absolute #) 0.92 x10^3/uL (1.0-4.6); Lymphocytes % 10.6 % (24.0-44.0); Mean Corpuscular Hemoglobin 28.9 pg (26-32); Mean Platelet Volume 8.2 fL (7.5-11.0); Monocyte (Absolute #) 0.69 x10^3/uL (0.0-1.3); Neutrophil % 75.8 % (36.0-66.0); Platelet Count 365 x10^3/uL (150-450); Red Blood Count 3.67 x10^6/uL (4.1-5.6); Red Cell Distribution Width 13.2 % (11.5-14.0); White Blood Count 8.6 x10^3/uL (4.0-10.5)
[2022-01-22] MEDS ORDERED: Xylocaine-Mpf 2% 5 Ml Vial ONE (08:23)
[2022-01-22 08:25] LABS: ALBUMIN 2.6 g/dL (3.5-5.0); ALKALINE PHOSPHATASE 138 U/L (38-126); ANION GAP 9.3 MEQ/L (5-15); BLOOD UREA NITROGEN 10 mg/dL (9-20); CHLORIDE 100 mmol/L (98-107); Calcium 8.3 mg/dL (8.4-10.2); Carbon Dioxide 26 mmol/L (22-30); Creatinine 1 1.14 mg/dL (0.66-1.25); EST GLOMERULAR FILTRATION RATE > 60.0 ML/MIN; Glucose 346 mg/dL (74-106); Potassium 4.8 mmol/L (3.5-5.1); SGOT/AST 20 U/L (17-59); SGPT/ALT 12 U/L (0-50); SODIUM 131 mmol/L (137-145); Total Protein 5.6 g/dL (6.3-8.2)
[2022-01-22] MEDS ORDERED: HUMALOG SQ PRN ×2 (08:30→12:05)
--- NOTE | 2022-01-22 08:36 | PCM.DS ---
Discharge Summary Date of Admission: 01/19/22 23:11 Admitting Physician: VALENTINA STARKS Consults: Consults on Case 01/21/22 07:18 Consult Surgery ROUTINE Primary Care Provider: VALENTINA STARKS Allergies Allergies No Known Drug Allergies Allergy (Verified 01/19/22 17:14) Hospital Summary - Hospital Course Hospital Course: Pt is a 36 yo male with Type I DM on insulin, noncompliant, who was admitted wit h abd pain, nausea and vomiting. He has cyclic vomiting at times, but said this felt different. BS was in the 200s, so he was put on sliding scale insulin. Did have large anion gap initially, which resolved with IV hydration overnight. CT abd/pelvis was nonacute - showed some RML/RLL lung nodules, likely granulomatous. WBC were nl. He did have hyponatremia throughout his stay - was worse yesterday and IV fluids were decreased. He had an abnormal EKG yesterday, with some nonspecific ST changes. I discussed it with the qa software tester production wood craftsman for [facility], Dr. Mcpherson, and he did not think it was an acute issue. Troponins were negative. BP were elevated. Started pt on lisinopril 10mg/d. STill having some elevated BP intermittently. His abd pain has steadily improved, and is now intermittent. He told me it had been going on x 1 mo. He is getting an EGD today. If all goes well and he tolerates a bland diet after that, he can be discharged to home this afternoon. Needs to f/u outpatient. - Vitals & Intake/Output Vital Signs: Vital Signs Temperature 98.9 F 01/22/22 04:00 Pulse Rate 77 01/22/22 04:00 Respiratory Rate 16 01/22/22 04:00 Blood Pressure 128/64 01/22/22 04:46 O2 Sat by Pulse Oximetry 98 01/22/22 04:00 Intake & Output: Intake & Output 01/19/22 01/20/22 01/21/22 01/22/22 11:59 11:59 11:59 11:59 Intake Total 587 8949 2944 Output Total 250 1250 2250 Balance 337 5042 699 Weight 69.6 kg - Lab Result Diagrams: 01/22/22 07:50 01/22/22 07:50 Lab Results-Last 24 Hrs: Lab Results-Last 24 Hours 01/21/22 01/21/22 01/21/22 Range/Units 07:00 10:42 12:02 WBC (4.0-10.5) x10^3/uL RBC (4.1-5.6) x10^6/uL Hgb (12.5-18.0) g/dL Hct (42-50) % MCV (78-100) fL MCH (26-32) pg MCHC (32-36) g/dL RDW (11.5-14.0) % Plt Count (150-450) x10^3/uL MPV (7.5-11.0) fL Gran % (36.0-66.0) % Immature Gran % (Auto) (0.00-0.4) % Nucleat RBC Rel Count (0.00-0.1) % Eos # (Auto) (0-0.5) x10^3/uL Immature Gran # (Auto) (0.00-0.03) x10^3u/L Absolute Lymphs (auto) (1.0-4.6) x10^3/uL Absolute Monos (auto) (0.0-1.3) x10^3/uL Absolute Nucleated RBC (0.00-0.01) x10^3u/L Lymphocytes % (24.0-44.0) % Monocytes % (0.0-12.0) % Eosinophils % (0.00-5.0) % Basophils % (0.0-0.4) % Absolute Granulocytes (1.4-6.9) x10^3/uL Basophils # (0-0.4) x10^3/uL Sodium (137-145) mmol/L Potassium (3.5-5.1) mmol/L Chloride (98-107) mmol/L Carbon Dioxide (22-30) mmol/L Anion Gap (5-15) MEQ/L BUN (9-20) mg/dL Creatinine (0.66-1.25) mg/dL Estimated GFR ML/MIN Glucose (74-106) mg/dL POC Glucometer 211 H (74 to 106) mg/dL Hemoglobin A1c 9.49 H (4.5-6.0) % Calcium (8.4-10.2) mg/dL Total Bilirubin (0.2-1.3) mg/dL AST (17-59) U/L ALT (0-50) U/L Alkaline Phosphatase (38-126) U/L Troponin I < 0.012 (0.000-0.034) ng/mL Serum Total Protein (6.3-8.2) g/dL Albumin (3.5-5.0) g/dL 01/21/22 01/21/22 01/21/22 Range/Units 14:09 14:09 16:11 WBC (4.0-10.5) x10^3/uL RBC (4.1-5.6) x10^6/uL Hgb (12.5-18.0) g/dL Hct (42-50) % MCV (78-100) fL MCH (26-32) pg MCHC (32-36) g/dL RDW (11.5-14.0) % Plt Count (150-450) x10^3/uL MPV (7.5-11.0) fL Gran % (36.0-66.0) % Immature Gran % (Auto) (0.00-0.4) % Nucleat RBC Rel Count (0.00-0.1) % Eos # (Auto) (0-0.5) x10^3/uL Immature Gran # (Auto) (0.00-0.03) x10^3u/L Absolute Lymphs (auto) (1.0-4.6) x10^3/uL Absolute Monos (auto) (0.0-1.3) x10^3/uL Absolute Nucleated RBC (0.00-0.01) x10^3u/L Lymphocytes % (24.0-44.0) % Monocytes % (0.0-12.0) % Eosinophils % (0.00-5.0) % Basophils % (0.0-0.4) % Absolute Granulocytes (1.4-6.9) x10^3/uL Basophils # (0-0.4) x10^3/uL Sodium 129 L (137-145) mmol/L Potassium 4.5 (3.5-5.1) mmol/L Chloride 100 (98-107) mmol/L Carbon Dioxide 18 L (22-30) mmol/L Anion Gap 14.8 (5-15) MEQ/L BUN 10 (9-20) mg/dL Creatinine 1.15 (0.66-1.25) mg/dL Estimated GFR > 60.0 ML/MIN Glucose 272 H (74-106) mg/dL POC Glucometer (74 to 106) mg/dL Hemoglobin A1c (4.5-6.0) % Calcium 8.2 L (8.4-10.2) mg/dL Total Bilirubin (0.2-1.3) mg/dL AST (17-59) U/L ALT (0-50) U/L Alkaline Phosphatase (38-126) U/L Troponin I < 0.012 < 0.012 (0.000-0.034) ng/mL Serum Total Protein (6.3-8.2) g/dL Albumin (3.5-5.0) g/dL 01/21/22 01/21/22 01/21/22 Range/Units 16:48 19:30 21:16 WBC (4.0-10.5) x10^3/uL RBC (4.1-5.6) x10^6/uL Hgb (12.5-18.0) g/dL Hct (42-50) % MCV (78-100) fL MCH (26-32) pg MCHC (32-36) g/dL RDW (11.5-14.0) % Plt Count (150-450) x10^3/uL MPV (7.5-11.0) fL Gran % (36.0-66.0) % Immature Gran % (Auto) (0.00-0.4) % Nucleat RBC Rel Count (0.00-0.1) % Eos # (Auto) (0-0.5) x10^3/uL Immature Gran # (Auto) (0.00-0.03) x10^3u/L Absolute Lymphs (auto) (1.0-4.6) x10^3/uL Absolute Monos (auto) (0.0-1.3) x10^3/uL Absolute Nucleated RBC (0.00-0.01) x10^3u/L Lymphocytes % (24.0-44.0) % Monocytes % (0.0-12.0) % Eosinophils % (0.00-5.0) % Basophils % (0.0-0.4) % Absolute Granulocytes (1.4-6.9) x10^3/uL Basophils # (0-0.4) x10^3/uL Sodium (137-145) mmol/L Potassium (3.5-5.1) mmol/L Chloride (98-107) mmol/L Carbon Dioxide (22-30) mmol/L Anion Gap (5-15) MEQ/L BUN (9-20) mg/dL Creatinine (0.66-1.25) mg/dL Estimated GFR ML/MIN Glucose (74-106) mg/dL POC Glucometer 212 H 283 H (74 to 106) mg/dL Hemoglobin A1c (4.5-6.0) % Calcium (8.4-10.2) mg/dL Total Bilirubin (0.2-1.3) mg/dL AST (17-59) U/L ALT (0-50) U/L Alkaline Phosphatase (38-126) U/L Troponin I < 0.012 (0.000-0.034) ng/mL Serum Total Protein (6.3-8.2) g/dL Albumin (3.5-5.0) g/dL 01/21/22 01/22/22 01/22/22 Range/Units 23:27 07:19 07:50 WBC 8.6 (4.0-10.5) x10^3/uL RBC 3.67 L (4.1-5.6) x10^6/uL Hgb 10.6 L (12.5-18.0) g/dL Hct 31.2 L (42-50) % MCV 85.0 (78-100) fL MCH 28.9 (26-32) pg MCHC 34.0 (32-36) g/dL RDW 13.2 (11.5-14.0) % Plt Count 365 (150-450) x10^3/uL MPV 8.2 (7.5-11.0) fL Gran % 75.8 H (36.0-66.0) % Immature Gran % (Auto) 0.7 H (0.00-0.4) % Nucleat RBC Rel Count 0.0 (0.00-0.1) % Eos # (Auto) 0.40 (0-0.5) x10^3/uL Immature Gran # (Auto) 0.06 H (0.00-0.03) x10^3u/L Absolute Lymphs (auto) 0.92 L (1.0-4.6) x10^3/uL Absolute Monos (auto) 0.69 (0.0-1.3) x10^3/uL Absolute Nucleated RBC 0.00 (0.00-0.01) x10^3u/L Lymphocytes % 10.6 L (24.0-44.0) % Monocytes % 8.0 (0.0-12.0) % Eosinophils % 4.6 (0.00-5.0) % Basophils % 0.3 (0.0-0.4) % Absolute Granulocytes 6.54 (1.4-6.9) x10^3/uL Basophils # 0.03 (0-0.4) x10^3/uL Sodium (137-145) mmol/L Potassium (3.5-5.1) mmol/L Chloride (98-107) mmol/L Carbon Dioxide (22-30) mmol/L Anion Gap (5-15) MEQ/L BUN (9-20) mg/dL Creatinine (0.66-1.25) mg/dL Estimated GFR ML/MIN Glucose (74-106) mg/dL POC Glucometer 316 H (74 to 106) mg/dL Hemoglobin A1c (4.5-6.0) % Calcium (8.4-10.2) mg/dL Total Bilirubin (0.2-1.3) mg/dL AST (17-59) U/L ALT (0-50) U/L Alkaline Phosphatase (38-126) U/L Troponin I < 0.012 (0.000-0.034) ng/mL Serum Total Protein (6.3-8.2) g/dL Albumin (3.5-5.0) g/dL 01/22/22 Range/Units 07:50 WBC (4.0-10.5) x10^3/uL RBC (4.1-5.6) x10^6/uL Hgb (12.5-18.0) g/dL Hct (42-50) % MCV (78-100) fL MCH (26-32) pg MCHC (32-36) g/dL RDW (11.5-14.0) % Plt Count (150-450) x10^3/uL MPV (7.5-11.0) fL Gran % (36.0-66.0) % Immature Gran % (Auto) (0.00-0.4) % Nucleat RBC Rel Count (0.00-0.1) % Eos # (Auto) (0-0.5) x10^3/uL Immature Gran # (Auto) (0.00-0.03) x10^3u/L Absolute Lymphs (auto) (1.0-4.6) x10^3/uL Absolute Monos (auto) (0.0-1.3) x10^3/uL Absolute Nucleated RBC (0.00-0.01) x10^3u/L Lymphocytes % (24.0-44.0) % Monocytes % (0.0-12.0) % Eosinophils % (0.00-5.0) % Basophils % (0.0-0.4) % Absolute Granulocytes (1.4-6.9) x10^3/uL Basophils # (0-0.4) x10^3/uL Sodium 131 L (137-145) mmol/L Potassium 4.8 (3.5-5.1) mmol/L Chloride 100 (98-107) mmol/L Carbon Dioxide 26 (22-30) mmol/L Anion Gap 9.3 (5-15) MEQ/L BUN 10 (9-20) mg/dL Creatinine 1.14 (0.66-1.25) mg/dL Estimated GFR > 60.0 ML/MIN Glucose 346 H (74-106) mg/dL POC Glucometer (74 to 106) mg/dL Hemoglobin A1c (4.5-6.0) % Calcium 8.3 L (8.4-10.2) mg/dL Total Bilirubin 0.40 (0.2-1.3) mg/dL AST 20 (17-59) U/L ALT 12 (0-50) U/L Alkaline Phosphatase 138 H (38-126) U/L Troponin I (0.000-0.034) ng/mL Serum Total Protein 5.6 L (6.3-8.2) g/dL Albumin 2.6 L (3.5-5.0) g/dL Micro Results-Entire Visit: Microbiology 01/19/22 17:30 Blood Culture - Preliminary Blood NO GROWTH TO DATE 01/19/22 17:20 Blood Culture - Preliminary Blood NO GROWTH TO DATE 01/19/22 19:49 Urine Culture - Final Clean Catch Midstream <10K NORMAL SKIN DAVID PROBABLE SKIN CONTAMINANT - Radiology Exams Ordered Rad Exams-Entire Visit: Radiology Procedures Category Date Time Status ECHO W/2D AND DOPPLER [US] Routine Exams 01/21/22 Ordered VENOUS UNILAT/LIMITED EXTREMIT [US] Stat Exams 01/20/22 13:44 Completed - Procedures and Test Procedures and Tests throughout Hospitalization: Therapy Orders & Screens 01/21/22 07:38 EKG ROUTINE Comment: Diagnosis: abd pain, N/V Discharge Exam General Appearance: no apparent distress, alert Neurologic Exam: oriented x 3, cooperative Eye Exam: eyes nml inspection Ears, Nose, Throat Exam: moist mucous membranes Neck Exam: normal inspection Respiratory Exam: normal breath sounds, lungs clear, No crackles/rales, No rhonchi, No wheezing Cardiovascular Exam: regular rate/rhythm, normal heart sounds, No murmur Gastrointestinal/Abdomen Exam: soft, normal bowel sounds, No tenderness, No distention, No mass, No guarding, No rebound Back Exam: normal inspection, No rash Extremity Exam: normal inspection, No pedal edema, No swelling Skin Exam: normal color, warm, dry, No rash Final Diagnosis/Problem List - Final Discharge Diagnosis/Problem (1) Abdominal pain Current Visit: No Status: Resolved Assessment & Plan: improved. EGD today, thank you. If franc po afterward, can be discharged to home. If any pain or nausea, would keep pt here again. Code(s): R10.9 - UNSPECIFIED ABDOMINAL PAIN (2) Hypertension Current Visit: No Status: Chronic Onset Date: ~05/30/18 Assessment & Plan: started him on 10mg lisinopril daily; he needs to f/u outpatient to ensure that it's working. Drug has not reached steady state in his system yet. Code(s): I10 - ESSENTIAL (PRIMARY) HYPERTENSION (3) Nausea & vomiting Current Visit: No Status: Resolved Code(s): R11.2 - NAUSEA WITH VOMITING, UNSPECIFIED (4) Diabetes mellitus type I Current Visit: No Status: Chronic Onset Date: ~05/30/18 (5) Chronic renal insufficiency Current Visit: No Status: Chronic Code(s): N18.9 - CHRONIC KIDNEY DISEASE, UNSPECIFIED (6) Abnormal EKG Current Visit: Yes Status: Ruled-out Code(s): R94.31 - ABNORMAL ELECTROCARDIOGRAM [ECG] [EKG] (7) Hyponatremia Current Visit: No Status: Chronic Code(s): E87.1 - HYPO-OSMOLALITY AND HYPONATREMIA - Discharge Disposition: Home, Self-Care Condition: Stable Prescriptions: New Lisinopril 10 mg [Zestril 10 MG] 10 mg PO DAILY #30 tablet Continue Insulin Lispro [Admelog Solostar] 1 unit SQ TIDWMEALS Follow up with: VALENTINA STARKS [Primary Care Provider] -
[2022-01-22] MEDS: PROTONIX 40 MG IV IV SCH (08:40)
[2022-01-22] MEDS: Pepcid 20 MG VIAL IV SCH (08:40)
[2022-01-22] MEDS: Zestril 10 MG PO SCH (08:41)
[2022-01-22] MEDS: Lactated Ringers 1,000 ML IV SCH (11:08)
--- NOTE | 2022-01-22 13:57 | CONS ---
CONSULT DATE: 01/22/2022 HISTORY: A 36-year-old gentleman, diabetes mellitus type I, had some nausea, vomiting and epigastric pain. He has not had an upper endoscopy for quite some time. He stated he has history of ulcers in the past but no recent upper endoscopy. PAST MEDICAL HISTORY: Anxiety, depression, diabetes mellitus type I and hypertension. He said he had history of peptic ulcer disease in the past but we do not have those old records. PAST SURGICAL HISTORY: He denied any abdominal surgery. MEDICATIONS: He has been on some insulin. ALLERGIES: NKDA. FAMILY HISTORY: Negative in regards to this problem. SOCIAL HISTORY: Former smoker. He did say he used marijuana in the past. REVIEW OF SYSTEMS: Fourteen systems reviewed per admission assessment as noted above. No chest pain or palpitations. PHYSICAL EXAMINATION: GENERAL: No acute distress. HEENT: Sclera nonicteric. NECK: No JVD. CHEST: Equal excursion, nonlabored breathing. CVS: Regular rate and rhythm. ABDOMEN: Soft. No peritoneal signs. He has some minimal tenderness in epigastrium. EXTREMITIES: No significant edema. NEURO: Alert, oriented, moving extremities symmetrically. PSYCH: Appropriate mood and affect. LAB DATA AND TESTS: Left leg was negative for deep vein thrombosis on ultrasound. CT scan showed some slightly thickened small bowel loops nonspecific and also enteritis otherwise no free air. IMPRESSION: Some upper abdominal pain, past history of peptic ulcer disease according to the patient. I feel he would benefit from upper endoscopy to evaluate for gastritis, peptic ulcer disease, esophagitis or other etiology. Given his diabetes and he said he has been having some gastroparesis and some other gastropathy from his diabetic issues. Risks and benefits explained in detail including but not limited to bleeding or infection, risk of bowel injury or perforation possibly requiring open procedure, risk of missed or nondiagnosis or incomplete exam. General risk of anesthesia, sedation, aspiration but not limited to, He understands and agrees to the plan, will proceed with EGD possible biopsy later when OR time is available.
[2022-01-22] MEDS ORDERED: DIPRIVAN 200 MG/20 ML IV ONE (14:25)
[2022-01-22] MEDS ORDERED: Versed 2 MG/2 ML Injection ONE (14:25)
[2022-01-22 15:54] VITALS: BP 180/102; PULSE 86
--- NOTE | 2022-01-23 07:58 | OP ---
SURGERY DATE/TIME: 01/22/2022 5284 PREOPERATIVE DIAGNOSES: 1) Epigastric pain, nausea and vomiting. 2) History of diabetes. 3) Prior history of peptic ulcer disease. POSTOPERATIVE DIAGNOSES: 1) Minimal gastritis. 2) Erosive distal esophagitis. PROCEDURES: EGD. SURGEON: Dr. Isaac Hogue. ANESTHESIA: MAC. ESTIMATED BLOOD LOSS: Minimal. INDICATIONS: As noted above. Risks and benefits explained in detail and not limited to and consent obtained. DESCRIPTION OF PROCEDURE AND FINDINGS: The patient is taken to the endoscopy room. MAC anesthesia introduced. After official time out and no disagreement with planned procedure, a bite block positioned. Video gastroscope easily passed down the esophagus through the patent pylorus to the third portion of the duodenum. Third, second, first portion of duodenum fairly unremarkable. Given his symptom complaints cold biopsy taken to evaluate for celiac sprue. Good hemostasis noted. The scope pulled back. Back in the antrum he had some mild gastric erythema. Cold biopsy taken to evaluate for Helicobacter pylori. It was felt he had some minimal gastritis. On retroflex the gastroesophageal junction snug against the scope. The scope pulled back. Gastroesophageal junction about 40 cm. He did have a little bit of salmon pink mucosa extending up the distal esophagus and multiple cold biopsies taken in this area to evaluate for Miller's versus just erosive esophagitis. He did have some erosions that did extend up a little bit higher probably a centimeter or two. These were small fingerlette erosions. Cold biopsies are taken of these for path and to evaluate for Miller's. It is thought that he had probably grade B erosive esophagitis. He had not been on proton pump inhibitors prior to admission so it is thought he could stay on those post-discharge. The scope is withdrawn. The patient tolerated the procedure well. There were no immediate complications. I will see him back in the office in two weeks.
[2022-01-25 21:52] VITALS: O2SAT 100
== END 2022-01-22 17:55 | disposition home or self-care (01) ==
LOC: ED 17:02 → MED SURG 23:11
PROVIDERS: ADMIT Family Medicine; ATTEND Family Medicine
DX: R10.84 Generalized abdominal pain (principal); I10 Essential (primary) hypertension; R11.2 Nausea with vomiting, unspecified; K29.70 Gastritis, unspecified, without bleeding; K22.10 Ulcer of esophagus without bleeding; E10.22 Type 1 diabetes mellitus with diabetic chronic kidney disease; N18.2 Chronic kidney disease, stage 2 (mild); R94.31 Abnormal electrocardiogram [ECG] [EKG]; E87.1 Hypo-osmolality and hyponatremia; R07.9 Chest pain, unspecified; M79.662 Pain in left lower leg; Z79.899 Other long term (current) drug therapy; Z20.828 Contact with and (suspected) exposure to other viral communicable diseases; Z87.11 Personal history of peptic ulcer disease
CPT/HCPCS: 0241U; 36000; 36415; 43239; 71045; 74176; 80048; 80053; 81015; 82805; 82947; 83036; 83605; 83690; 83735; 84484; 85025; 87040; 87086; 93005; 93268; 93306; 93971; 96360; 96361; 96372; 96374; 96375; 99285; G0378; J0360; J1170; J1815; J1817; J2250; J2270; J2405; J2704; A9270-GY

== ENCOUNTER 2022-02-18 13:11 | Emergency (ER) | payer OTHER ==
[2022-02-18 13:29] VITALS: BP 178/113; PULSE 101; O2SAT 100
--- NOTE | 2022-02-18 13:52 | ERPHSYRPT ---
- History of Present Illness Time Seen by Provider: 02/18/22 13:47 Source: patient, family Exam Limitations: no limitations Patient Subjective Stated Complaint: Rash to both lower legs with blistering to right lower leg/foot for past 2 days. Triage Nursing Assessment: C/o red rash to both lower legs and blisters noted to right lower ankle/foot. Denies known cause of rash, has not self treated, States started new bp med approx 2 wks ago. aaox3, ambulatory. Physician History: pt developed sunburn appearing skin with blisters greater on right lower leg skin in exposed areas for 2-3 days. New med 2 weeks ago. no itching. no wheezes or urticaria. no pharyngeal swelling or difficulty swallowing. may also be photo reaction from med so will give one dose of steroid in ER and treat with silvadene. then OTC benadryl and tylenol and f/u PMD early this week. to Return meantime if not improving. Timing/Duration: day(s) Quality: burning Severity: moderate Location: extremities Possible Causes: no cause identified, other (sun reaction or direct sunburn) Associated Symptoms: blisters, No difficulty breathing, No petechiae, No rash, No sore throat Allergies/Adverse Reactions: No Known Drug Allergies Allergy (Verified 01/19/22 17:14) Home Medications: Insulin Lispro [Admelog Solostar] 1 unit SQ TIDWMEALS 03/30/21 [History] Hx Tetanus, Diphtheria Vaccination/Date Given: Yes Hx Influenza Vaccination/Date Given: No Hx Pneumococcal Vaccination/Date Given: No Travel Risk - International Travel Have you traveled outside of the country in past 3 weeks: No - Coronavirus Screening Are you exhibiting any of the following symptoms?: No Close contact with a COVID-19 positive Pt in past 14-21 Days: No - Vaccine Status Have you recieved a Covid-19 vaccination: No - Review of Systems Constitutional: No Fever, No Chills Eyes: No Symptoms Ears, Nose, & Throat: No Symptoms Respiratory: No Cough, No Dyspnea Cardiac: No Chest Pain, No Edema, No Syncope Abdominal/Gastrointestinal: No Abdominal Pain, No Nausea, No Vomiting, No Diarrhea Genitourinary Symptoms: No Dysuria Musculoskeletal: No Back Pain, No Neck Pain Skin: Other (sunburn appearing reaction lower legs ), No Rash Neurological: No Dizziness, No Focal Weakness, No Sensory Changes Psychological: No Symptoms Endocrine: No Symptoms Hematologic/Lymphatic: No Symptoms Immunological/Allergic: No Symptoms All Other Systems: Reviewed and Negative - Past Medical History Pertinent Past Medical History: Yes Neurological History: No Pertinent History ENT History: No Pertinent History Cardiac History: Hypertension Respiratory History: No Pertinent History Endocrine Medical History: Diabetes Type I Musculoskeletal History: No Pertinent History GI Medical History: No Pertinent History History: No Pertinent History Psycho-Social History: Anxiety, Depression Male Reproductive Disorders: No Pertinent History Other Medical History: DKA - Past Surgical History Past Surgical History: No Neuro Surgical History: No Pertinent History Cardiac: No Pertinent History Respiratory: No Pertinent History Gastrointestinal: No Pertinent History Genitourinary: No Pertinent History Musculoskeletal: No Pertinent History Male Surgical History: No Pertinent History Other Surgical History: . - Social History Smoking Status: Current every day smoker Exposure to second hand smoke: No Drug Use: marijuana Patient Lives Alone: No - Nursing Vital Signs Nursing Vital Signs: Initial Vital Signs Temperature 97.1 F 02/18/22 13:19 Pulse Rate 101 H 02/18/22 13:19 Respiratory Rate 16 02/18/22 13:19 Blood Pressure 178/113 02/18/22 13:19 O2 Sat by Pulse Oximetry 100 02/18/22 13:19 Pain Scale Pain Intensity 8 - Physical Exam General Appearance: no apparent distress, alert Eye Exam: PERRL/EOMI, eyes nml inspection Ears, Nose, Throat Exam: normal ENT inspection, pharynx normal, moist mucous membranes Neck Exam: normal inspection, non-tender, supple, full range of motion Respiratory Exam: normal breath sounds, lungs clear, No respiratory distress Cardiovascular Exam: regular rate/rhythm, normal heart sounds Gastrointestinal/Abdomen Exam: soft, mass, No tenderness Rectal Exam: deferred Back Exam: normal inspection, normal range of motion, No CVA tenderness, No vertebral tenderness Extremity Exam: normal inspection, normal range of motion, other (sunburn lower exts) Neurologic Exam: alert, oriented x 3, cooperative, normal mood/affect, sensation nml, No motor deficits Skin Exam: normal color, warm, dry, other (sunburn bilateral legs anterior) SpO2 Interpretation: normal SpO2: 100 O2 Delivery: Room Air - Course Nursing assessment & vital signs reviewed: Yes - Progress Counseled pt/family regarding: diagnosis, need for follow-up - Departure Departure Disposition: Home Clinical Impression: sunburn or photo-reaction bilateral LE Condition: Good Critical Care Time: No Referrals: VALENTINA STARKS [Primary Care Provider] - Follow up/PCP as directed Instructions: Sunburn (DC) Additional Instructions: this could be sunburn or also a sun reaction even aggravated by sun exposure with some medicines. We have not determined a cause but are beginning some treatment for the skin and reaction like a burn. Follow-up with your Dr. is important to track progress and complete evaluation. Some of these conditions can progress - so followup is important. They may also need to change or adjust your new medicine if it is determined to be related. use benedryl and tylenol over the counter for pain and itching . change lupe dressing twice a day until healed. Follow-up with your Dr. for blood pressure. Return meantime if not improving , trouble breathing, increased swelling or other concerns. Prescriptions: Silver Sulfadiazine 50 gm [Silvadene 50 gm] 50 gm TP BID #1 packet
[2022-02-18] MEDS ORDERED: DELTASONE 20 MG PO ONE (14:03)
[2022-02-18] MEDS ORDERED: SILVADENE 50 GM TP ONE ×2 (14:04→14:26)
[2022-02-18] MEDS ORDERED: DELTASONE 20 MG ONE (14:26)
== END 2022-02-18 14:51 | disposition home or self-care (01) ==
LOC: ED 13:11
DX: L55.9 Sunburn, unspecified (principal); I10 Essential (primary) hypertension; E10.9 Type 1 diabetes mellitus without complications; Z72.0 Tobacco use; Z28.310 Unvaccinated for COVID-19
CPT/HCPCS: 99282; A9270-GY

== ENCOUNTER 2022-04-22 08:07 | Observation (INO) | payer OTHER ==
[2022-04-22] MEDS ORDERED: Sodium Chloride 0.9% 1000 ML 1,000 ML IV STA (08:29)
[2022-04-22] MEDS ORDERED: Sodium Chloride 0.9% 1000 ML 1,000 ML ONE (08:49)
[2022-04-22] MEDS ORDERED: Zofran 4 MG/2 ML VIAL ONE (08:50)
[2022-04-22] MEDS ORDERED: Zofran 4 MG/2 ML VIAL IV ONE (08:52)
[2022-04-22 08:53] LABS: Absolute Neutrophil Ct (ANC) 8.58 x10^3/uL (1.4-6.9); Basophil (Absolute #) 0.06 x10^3/uL (0-0.4); Eosinophil % 1.6 % (0.00-5.0); Eosinophil (Absolute #) 0.17 x10^3/uL (0-0.5); Hematocrit 37.7 % (42-50); Hemoglobin 12.6 g/dL (12.5-18.0); Lymphocyte (Absolute #) 0.87 x10^3/uL (1.0-4.6); Lymphocytes % 8.2 % (24.0-44.0); Mean Cell Volume 87.7 fL (78-100); Mean Corpuscular Hemoglobin 29.3 pg (26-32); Mean Corpuscular Hgb Concent. 33.4 g/dL (32-36); Mean Platelet Volume 8.3 fL (7.5-11.0); Monocyte (Absolute #) 0.88 x10^3/uL (0.0-1.3); Monocytes % 8.3 % (0.0-12.0); Platelet Count 452 x10^3/uL (150-450); Red Cell Distribution Width 12.2 % (11.5-14.0); White Blood Count 10.6 x10^3/uL (4.0-10.5)
[2022-04-22] MEDS: HUMULIN R 100 UNIT in Sodium Chloride 0.9% 100 ML IV PRN (09:07)
--- NOTE | 2022-04-22 09:20 | ERPHSYRPT ---
- History of Present Illness Time Seen by Provider: 04/22/22 09:18 Source: patient Exam Limitations: clinical condition Patient Subjective Stated Complaint: Pt has been vomiting for 3 days, blood pressure running high, generalized pain Triage Nursing Assessment: Pt brought to the ER by his kids mom, hypertensive, tachycardic, vomiting, denies diarrhea, vomiting x3 days, hx of DKA, BS upon arrival is 345, pulses normal, skin pale, lethargic, hurts all over Physician History: Pt has been vomiting for 3 days, blood pressure running high, generalized pain Patient is 36-year-old male with type 1 diabetes started having nausea vomiting generalized abdominal pain for last 3 days. His symptoms got worse so his brought him into the emergency room. Patient has been very weak and lethargic and complaining of pain generalized all over the body. Patient denies any fever or chills. Timing/Duration: day(s) (three days) Severity: moderate Associated Symptoms: nausea, vomiting, abdominal pain, loss of appetite, malaise, weakness Allergies/Adverse Reactions: No Known Drug Allergies Allergy (Verified 01/19/22 17:14) Home Medications: Insulin Lispro [Admelog Solostar] 1 unit SQ TIDWMEALS 03/30/21 [History] Hx Tetanus, Diphtheria Vaccination/Date Given: Yes Hx Influenza Vaccination/Date Given: No Hx Pneumococcal Vaccination/Date Given: No Travel Risk - International Travel Have you traveled outside of the country in past 3 weeks: No - Coronavirus Screening Are you exhibiting any of the following symptoms?: Yes Symptoms: Vomiting/Diarrhea Close contact with a COVID-19 positive Pt in past 14-21 Days: No - Vaccine Status Have you recieved a Covid-19 vaccination: No - Review of Systems Constitutional: No Fever, No Chills Eyes: No Symptoms Ears, Nose, & Throat: No Symptoms Respiratory: No Cough, No Dyspnea Cardiac: No Chest Pain, No Edema, No Syncope Abdominal/Gastrointestinal: Nausea, Vomiting, Diarrhea, No Abdominal Pain Genitourinary Symptoms: No Dysuria Musculoskeletal: No Back Pain, No Neck Pain Skin: No Rash Neurological: No Dizziness, No Focal Weakness, No Sensory Changes Psychological: No Symptoms Endocrine: No Symptoms All Other Systems: Reviewed and Negative - Past Medical History Pertinent Past Medical History: Yes Neurological History: No Pertinent History ENT History: No Pertinent History Cardiac History: Hypertension Respiratory History: No Pertinent History Endocrine Medical History: Diabetes Type I Musculoskeletal History: No Pertinent History GI Medical History: No Pertinent History History: No Pertinent History Psycho-Social History: Anxiety, Depression Male Reproductive Disorders: No Pertinent History Other Medical History: DKA - Past Surgical History Past Surgical History: No Neuro Surgical History: No Pertinent History Cardiac: No Pertinent History Respiratory: No Pertinent History Gastrointestinal: No Pertinent History Genitourinary: No Pertinent History Musculoskeletal: No Pertinent History Male Surgical History: No Pertinent History Other Surgical History: . - Social History Smoking Status: Current every day smoker Exposure to second hand smoke: No Drug Use: none Patient Lives Alone: No - Nursing Vital Signs Nursing Vital Signs: Initial Vital Signs Temperature 96.8 F 04/22/22 08:13 Pulse Rate 109 H 04/22/22 08:13 Blood Pressure 236/127 04/22/22 08:13 O2 Sat by Pulse Oximetry 100 04/22/22 08:13 Pain Scale Pain Intensity 8 - Physical Exam General Appearance: moderate distress, alert, lethargy Eye Exam: PERRL/EOMI, eyes nml inspection Ears, Nose, Throat Exam: normal ENT inspection, TMs normal, pharynx normal, moist mucous membranes Neck Exam: normal inspection, non-tender, supple, full range of motion Respiratory Exam: normal breath sounds, lungs clear, No respiratory distress Cardiovascular Exam: regular rate/rhythm, normal heart sounds, normal peripheral pulses Gastrointestinal/Abdomen Exam: soft, normal bowel sounds, No tenderness, No mass Back Exam: normal inspection, normal range of motion, No CVA tenderness, No vertebral tenderness Extremity Exam: normal inspection, normal range of motion, pelvis stable Neurologic Exam: alert, oriented x 3, cooperative, normal mood/affect, nml cerebellar function, nml station & gait, sensation nml, No motor deficits Skin Exam: normal color, warm, dry, No rash Lymphatic Exam: No adenopathy SpO2: 100 - Course Nursing assessment & vital signs reviewed: Yes EKG Interpreted by Me: Sinus Rhythm - Radiology Exams Chest X-ray Interpretation: Reviewed by me, Negative Ordered Tests: Active Orders 24 hr Category Date Time Status Patient Care Provider STAT Care 04/22/22 08:30 Active EKG-ER Only STAT Care 04/22/22 08:29 Active Oxygen-ED Only Nasal Cannula 3 lpm Care 04/22/22 08:29 Active POCT Glucose Check STAT Care 04/22/22 08:29 Active CHEST 1 VIEW (PORTABLE) Stat Exams 04/22/22 08:58 Taken CBC W DIFF Stat Lab 04/22/22 08:45 Completed CMP Stat Lab 04/22/22 08:45 Completed Lactic Acid Urgent Lab 04/22/22 08:29 Completed MAGNESIUM Stat Lab 04/22/22 08:45 Completed POCT GLUCOSE Stat Lab 04/22/22 08:22 Completed UA W/RFX CULTURE Stat Lab 04/22/22 Ordered Medication Summary Generic Name Dose Route Start Last Admin Trade Name Freq PRN Reason Stop Dose Admin Insulin Human Regular 100 unit 100 mls @ 14.987 mls/hr 04/22/22 08:31 04/22/22 09:07 / Sodium Chloride IV 05/22/22 08:30 0.2 unit/kg/hr .Q6H41M PRN 14.987 mls/hr DKA/HYPERGLYCEMIA Administration Protocol 0.2 UNIT/KG/HR Discontinued Medications Generic Name Dose Route Start Last Admin Trade Name Freq PRN Reason Stop Dose Admin Sodium Chloride 1,000 mls @ 999 mls/hr 04/22/22 08:29 04/22/22 08:49 Sodium Chloride 0.9% 1000 Ml IV 04/22/22 09:29 999 mls/hr .Q1H1M STA Administration Sodium Chloride Confirm 04/22/22 08:49 Sodium Chloride 0.9% 1000 Ml Administered 04/22/22 08:50 Dose 1,000 mls @ ud .ROUTE .STK-MED ONE Ondansetron HCl Confirm 04/22/22 08:50 Ondansetron Hcl 4 Mg/2 Ml Vial Administered 04/22/22 08:51 Dose 4 mg .ROUTE .STK-MED ONE Ondansetron HCl 4 mg 04/22/22 08:52 04/22/22 08:53 Ondansetron Hcl 4 Mg/2 Ml Vial IV 04/22/22 08:53 4 mg STAT ONE Administration Lab/Rad Data: Laboratory Result Diagrams 04/22/22 08:45 04/22/22 08:45 Laboratory Results 04/22/22 04/22/22 04/22/22 Range/Units 08:45 08:45 08:29 WBC 10.6 H (4.0-10.5) x10^3/uL RBC 4.30 (4.1-5.6) x10^6/uL Hgb 12.6 (12.5-18.0) g/dL Hct 37.7 L (42-50) % MCV 87.7 (78-100) fL MCH 29.3 (26-32) pg MCHC 33.4 (32-36) g/dL RDW 12.2 (11.5-14.0) % Plt Count 452 H (150-450) x10^3/uL MPV 8.3 (7.5-11.0) fL Gran % 81.0 H (36.0-66.0) % Immature Gran % (Auto) 0.3 (0.00-0.4) % Nucleat RBC Rel Count 0.0 (0.00-0.1) % Eos # (Auto) 0.17 (0-0.5) x10^3/uL Immature Gran # (Auto) 0.03 (0.00-0.03) x10^3u/L Absolute Lymphs (auto) 0.87 L (1.0-4.6) x10^3/uL Absolute Monos (auto) 0.88 (0.0-1.3) x10^3/uL Absolute Nucleated RBC 0.00 (0.00-0.01) x10^3u/L Lymphocytes % 8.2 L (24.0-44.0) % Monocytes % 8.3 (0.0-12.0) % Eosinophils % 1.6 (0.00-5.0) % Basophils % 0.6 (0.0-0.4) % Absolute Granulocytes 8.58 H (1.4-6.9) x10^3/uL Basophils # 0.06 (0-0.4) x10^3/uL Sodium 134 L (137-145) mmol/L Potassium 4.7 (3.5-5.1) mmol/L Chloride 93 L (98-107) mmol/L Carbon Dioxide 21 L (22-30) mmol/L Anion Gap 24.1 H (5-15) MEQ/L BUN 43 H (9-20) mg/dL Creatinine 2.64 H (0.66-1.25) mg/dL Estimated GFR 29.3 ML/MIN Glucose 432 H (74-106) mg/dL POC Glucometer (74 to 106) mg/dL Lactic Acid 3.2 H (0.4-2.0) Calcium 9.2 (8.4-10.2) mg/dL Magnesium 1.7 (1.6-2.3) mg/dL Total Bilirubin 0.90 (0.2-1.3) mg/dL AST 29 (17-59) U/L ALT 22 (0-50) U/L Alkaline Phosphatase 167 H (38-126) U/L Serum Total Protein 7.7 (6.3-8.2) g/dL Albumin 4.2 (3.5-5.0) g/dL 04/22/22 Range/Units 08:22 WBC (4.0-10.5) x10^3/uL RBC (4.1-5.6) x10^6/uL Hgb (12.5-18.0) g/dL Hct (42-50) % MCV (78-100) fL MCH (26-32) pg MCHC (32-36) g/dL RDW (11.5-14.0) % Plt Count (150-450) x10^3/uL MPV (7.5-11.0) fL Gran % (36.0-66.0) % Immature Gran % (Auto) (0.00-0.4) % Nucleat RBC Rel Count (0.00-0.1) % Eos # (Auto) (0-0.5) x10^3/uL Immature Gran # (Auto) (0.00-0.03) x10^3u/L Absolute Lymphs (auto) (1.0-4.6) x10^3/uL Absolute Monos (auto) (0.0-1.3) x10^3/uL Absolute Nucleated RBC (0.00-0.01) x10^3u/L Lymphocytes % (24.0-44.0) % Monocytes % (0.0-12.0) % Eosinophils % (0.00-5.0) % Basophils % (0.0-0.4) % Absolute Granulocytes (1.4-6.9) x10^3/uL Basophils # (0-0.4) x10^3/uL Sodium (137-145) mmol/L Potassium (3.5-5.1) mmol/L Chloride (98-107) mmol/L Carbon Dioxide (22-30) mmol/L Anion Gap (5-15) MEQ/L BUN (9-20) mg/dL Creatinine (0.66-1.25) mg/dL Estimated GFR ML/MIN Glucose (74-106) mg/dL POC Glucometer 345 H (74 to 106) mg/dL Lactic Acid (0.4-2.0) Calcium (8.4-10.2) mg/dL Magnesium (1.6-2.3) mg/dL Total Bilirubin (0.2-1.3) mg/dL AST (17-59) U/L ALT (0-50) U/L Alkaline Phosphatase (38-126) U/L Serum Total Protein (6.3-8.2) g/dL Albumin (3.5-5.0) g/dL - Progress Progress: unchanged Discussed with : Hasmukh Will see patient in: hospital (observation) Counseled pt/family regarding: lab results, diagnosis, need for follow-up, rad results - Departure Departure Disposition: Observation Clinical Impression: NINFA (acute kidney injury) DKA (diabetic ketoacidoses) Qualifiers: Diabetes mellitus type: type 1 Diabetes mellitus complication detail: without coma Qualified Code(s): E10.10 - Type 1 diabetes mellitus with ketoacidosis without coma Condition: Fair Critical Care Time: Yes Critical Care Time(excluding separately billable procedures): Critical 30-74 mins Referrals: VALENTINA STARKS [Primary Care Provider] - Follow up/PCP as directed
[2022-04-22 09:34] LABS: ALBUMIN 4.2 g/dL (3.5-5.0); ANION GAP 24.1 MEQ/L (5-15); BILIRUBIN,TOTAL 0.9 mg/dL (0.2-1.3); Calcium 9.2 mg/dL (8.4-10.2); Creatinine 1 2.64 mg/dL (0.66-1.25); EST GLOMERULAR FILTRATION RATE 29.3 ML/MIN; MAGNESIUM 1.7 mg/dL (1.6-2.3); Potassium 4.7 mmol/L (3.5-5.1); Total Protein 7.7 g/dL (6.3-8.2)
[2022-04-22] MEDS ORDERED: Sodium Chloride 0.9% W/ 20 mEq KCl/LITER 1,000 ML IV SCH (10:15)
[2022-04-22 11:18] LABS: INFLUENZA A NEGATIVE (NEGATIVE); INFLUENZA B NEGATIVE (NEGATIVE); RESPIRATORY SYNCTIAL VIRUS NEGATIVE (Negative); SARS-CoV-2 Xpert Express NEGATIVE (NEGATIVE)
[2022-04-22] MEDS: ROCEPHIN 1 Gm-D5w 50 ml Bag** 1 G/50 ML IVPB IV SCH (12:21)
[2022-04-22] MEDS: DEXTROSE 5% -NACL 0.9% 1000 ML + KCl 20 MEQ 1,000 ML IV SCH ×2 (12:21→18:16)
[2022-04-22] MEDS: MORPHINE SULFATE 2 MG INJ IV PRN ×2 (12:21→16:41)
[2022-04-22] MEDS: PROTONIX 40 MG IV IV SCH (12:22)
[2022-04-22] MEDS: Zofran 4 MG/2 ML VIAL IV PRN ×3 (12:22→22:08)
[2022-04-22 13:28] LABS: Appearance CLEAR (CLEAR); Bilirubin SMALL (NEGATIVE); Glucose >=1000 mg/dL (NEGATIVE); Ketones MODERATE-40 (NEGATIVE); Specific Gravity >=1.030 (1.005-1.025)
[2022-04-22 13:29] LABS: Ph 7.5 (5-6); Protein,Urine Dip >=300 (Negative); RBC MODERATE Ery/ul (0-5); Urobilinogen >=8.0 mg/dL (0-1)
[2022-04-22 13:30] LABS: Dipstick done @ ? MAIN LAB; Nitrite POSITIVE (NEGATIVE); Urine Cultured Indicated? YES
[2022-04-22 13:33] LABS: Hyaline Casts 0-2 /LPF (0-2)
[2022-04-22] MEDS ORDERED: Phenergan 25 MG INJ*** 12.5 MG in Sodium Chloride 0.9% 100 ML IV PRN (13:47)
[2022-04-22 14:21] LABS: Bacteria FEW /HPF (NEGATIVE)
[2022-04-22 14:36] LABS: Calcium 8.9 mg/dL (8.4-10.2); Creatinine 1 2.39 mg/dL (0.66-1.25); EST GLOMERULAR FILTRATION RATE 32.9 ML/MIN; Potassium 4.4 mmol/L (3.5-5.1)
[2022-04-22] MEDS: Pepcid 20 MG VIAL IV SCH (21:05)
--- NOTE | 2022-04-22 21:35 | XRAY ---
Indication: Diabetic ketoacidosis. Weakness and vomiting. Comparison: January 19, 2022 Portable chest again demonstrates normal heart, lungs, and bony thorax.
[2022-04-23] MEDS: DEXTROSE 5% -NACL 0.9% 1000 ML + KCl 20 MEQ 1,000 ML IV SCH ×2 (00:19→08:32)
[2022-04-23] MEDS: HUMULIN R 100 UNIT in Sodium Chloride 0.9% 100 ML IV PRN (01:11)
[2022-04-23 06:08] LABS: Absolute Neutrophil Ct (ANC) 10.09 x10^3/uL (1.4-6.9); Basophil (Absolute #) 0.05 x10^3/uL (0-0.4); Eosinophil % 1.6 % (0.00-5.0); Eosinophil (Absolute #) 0.21 x10^3/uL (0-0.5); Hematocrit 31.7 % (42-50); Hemoglobin 10.3 g/dL (12.5-18.0); Lymphocyte (Absolute #) 0.92 x10^3/uL (1.0-4.6); Lymphocytes % 7.2 % (24.0-44.0); Mean Cell Volume 89.5 fL (78-100); Mean Corpuscular Hemoglobin 29.1 pg (26-32); Mean Corpuscular Hgb Concent. 32.5 g/dL (32-36); Mean Platelet Volume 8.3 fL (7.5-11.0); Monocyte (Absolute #) 1.46 x10^3/uL (0.0-1.3); Monocytes % 11.4 % (0.0-12.0); Neutrophil % 79.1 % (36.0-66.0); Platelet Count 374 x10^3/uL (150-450); Red Blood Count 3.54 x10^6/uL (4.1-5.6); Red Cell Distribution Width 12.6 % (11.5-14.0); White Blood Count 12.8 x10^3/uL (4.0-10.5)
[2022-04-23 06:13] LABS: ALBUMIN 3.6 g/dL (3.5-5.0); ANION GAP 10.2 MEQ/L (5-15); BILIRUBIN,TOTAL 0.4 mg/dL (0.2-1.3); Calcium 8.1 mg/dL (8.4-10.2); Creatinine 1 2.25 mg/dL (0.66-1.25); EST GLOMERULAR FILTRATION RATE 35.3 ML/MIN; Potassium 3.9 mmol/L (3.5-5.1); Total Protein 6.9 g/dL (6.3-8.2)
[2022-04-23 06:14] VITALS: O2SAT 99
[2022-04-23 07:05] VITALS: BP 183/112; PULSE 97
[2022-04-23] MEDS: PROTONIX 40 MG IV IV SCH (07:32)
[2022-04-23] MEDS: Pepcid 20 MG VIAL IV SCH (07:32)
[2022-04-23] MEDS: ROCEPHIN 1 Gm-D5w 50 ml Bag** 1 G/50 ML IVPB IV SCH (07:33)
[2022-04-23] MEDS ORDERED: HUMALOG SQ SCH (08:30)
--- NOTE | 2022-04-23 09:48 | PCM.HP ---
History of Present Illness - Chief Complaint Chief Complaint: nausea, vomiting, generalised body pain for 1 day History of Present Illness: is a 36 year old male.with type 1 diabetes started having nausea vomiting generalized abdominal pain for last 3 days. His symptoms got worse so his brought him into the emergency room. Patient has been very weak and lethargic and complaining of pain generalized all over the body. Patient denies any fever or chills. Timing/Duration: day(s) (three days) Severity: moderate Associated Symptoms: nausea, vomiting, abdominal pain, loss of appetite, malaise, weakness - Review of Systems Constitutional: Lethargy, Malaise, Weakness, No Fever, No Chills Eyes: No Symptoms Ears, Nose, & Throat: No Symptoms Respiratory: No Cough, No Short Of Breath Cardiac: No Chest Pain, No Edema, No Syncope Abdominal/Gastrointestinal: Nausea, Vomiting, No Abdominal Pain, No Diarrhea Genitourinary Symptoms: No Dysuria Musculoskeletal: No Back Pain, No Neck Pain Skin: No Rash Neurological: No Dizziness, No Focal Weakness, No Sensory Changes Psychological: No Symptoms Endocrine: No Symptoms Hematologic/Lymphatic: No Symptoms Immunological/Allergic: No Symptoms Medications & Allergies Home Medications: Home Medication List Insulin Lispro [Admelog Solostar] 10 - 15 unit SQ TIDWMEALS 03/30/21 [History Confirmed 04/22/22] Lisinopril 10 mg [Zestril 10 MG] 10 mg PO DAILY #30 tablet 01/22/22 [Rx Confirmed 04/22/22] Allergies/Adverse Reactions: Allergies Allergy/AdvReac Type Severity Reaction Status Date / Time No Known Drug Allergies Allergy Verified 01/19/22 17:14 - Past Medical History Past Medical History: Yes Neurological History: No Pertinent History ENT History: No Pertinent History Cardiac History: Hypertension Respiratory History: No Pertinent History Endocrine Medical History: Diabetes Type I Musculoskelatal History: No Pertinent History GI Medical History: No Pertinent History History: No Pertinent History Pyscho-Social History: Anxiety, Depression Male Reproductive Disorders: No Pertinent History Comment: DKA - Past Surgical History Past Surgical History: No Neuro Surgical History: No Pertinent History Cardiac History: No Pertinent History Respiratory Surgery: No Pertinent History GI Surgical History: No Pertinent History Genitourinary Surgical Hx: No Pertinent History Musculskeletal Surgical Hx: No Pertinent History Male Surgical History: No Pertinent History Other Surgical History: . - Social History Smoking Status: Current every day smoker Exposure to second hand smoke: No Alcohol: None Drug Use: none - Physical Exam Vital Signs: Vital Signs - 24 hr Temp Pulse Resp BP BP Pulse Ox 04/23/22 07:05 97 H 04/23/22 07:00 97.3 F 97 H 18 183/112 99 04/23/22 06:00 86 18 188/110 99 04/23/22 05:00 87 17 171/117 98 04/23/22 04:00 91 H 17 179/105 98 04/23/22 03:00 92 H 16 127/83 99 04/23/22 02:00 111 H 20 182/116 98 04/23/22 01:00 86 16 155/96 977 H 04/23/22 00:01 100 H 04/23/22 00:00 100 H 16 126/67 98 04/22/22 23:00 88 16 137/68 96 04/22/22 22:00 91 H 19 129/76 97 04/22/22 21:00 123 H 21 186/117 99 04/22/22 20:00 98.6 F 96 H 13 165/94 04/22/22 19:38 94 H 04/22/22 18:55 104 H 21 127/80 93 L 04/22/22 17:55 97 H 20 164/106 96 04/22/22 16:58 103 H 16 187/105 04/22/22 16:00 97.8 F 116 H 18 189/125 194/114 97 04/22/22 15:52 97 H 04/22/22 15:00 94 H 16 137/80 194/114 04/22/22 14:00 102 H 16 184/93 04/22/22 13:00 97.7 F 97 H 14 182/92 100 04/22/22 11:58 97.7 F 105 H 179/104 99 04/22/22 11:03 101 H 20 194/114 97 04/22/22 10:10 100 General Appearance: no apparent distress, alert Neurologic Exam: alert, oriented x 3, cooperative, normal mood/affect, nml cerebellar function, nml station & gait, sensation nml, No motor deficits Eye Exam: PERRL/EOMI, eyes nml inspection Ears, Nose, Throat Exam: normal ENT inspection, TMs normal, pharynx normal, moist mucous membranes Neck Exam: normal inspection, non-tender, supple, full range of motion Respiratory Exam: normal breath sounds, lungs clear, No respiratory distress Cardiovascular Exam: regular rate/rhythm, normal heart sounds, normal peripheral pulses Gastrointestinal/Abdomen Exam: soft, normal bowel sounds, No tenderness, No mass Back Exam: normal inspection, normal range of motion, No CVA tenderness, No vertebral tenderness Extremity Exam: normal inspection, normal range of motion, pelvis stable Skin Exam: normal color, warm, dry, No rash Lymphatic Exam: No adenopathy Results - Labs Lab/Micro Results: Lab Results-Last 24 Hours 04/22/22 04/22/22 04/22/22 Range/Units 08:45 08:45 10:15 WBC 10.6 H (4.0-10.5) x10^3/uL RBC 4.30 (4.1-5.6) x10^6/uL Hgb 12.6 (12.5-18.0) g/dL Hct 37.7 L (42-50) % MCV 87.7 (78-100) fL MCH 29.3 (26-32) pg MCHC 33.4 (32-36) g/dL RDW 12.2 (11.5-14.0) % Plt Count 452 H (150-450) x10^3/uL MPV 8.3 (7.5-11.0) fL Gran % 81.0 H (36.0-66.0) % Immature Gran % (Auto) 0.3 (0.00-0.4) % Nucleat RBC Rel Count 0.0 (0.00-0.1) % Eos # (Auto) 0.17 (0-0.5) x10^3/uL Immature Gran # (Auto) 0.03 (0.00-0.03) x10^3u/L Absolute Lymphs (auto) 0.87 L (1.0-4.6) x10^3/uL Absolute Monos (auto) 0.88 (0.0-1.3) x10^3/uL Absolute Nucleated RBC 0.00 (0.00-0.01) x10^3u/L Lymphocytes % 8.2 L (24.0-44.0) % Monocytes % 8.3 (0.0-12.0) % Eosinophils % 1.6 (0.00-5.0) % Basophils % 0.6 (0.0-0.4) % Absolute Granulocytes 8.58 H (1.4-6.9) x10^3/uL Basophils # 0.06 (0-0.4) x10^3/uL Sodium 134 L (137-145) mmol/L Potassium 4.7 (3.5-5.1) mmol/L Chloride 93 L (98-107) mmol/L Carbon Dioxide 21 L (22-30) mmol/L Anion Gap 24.1 H (5-15) MEQ/L BUN 43 H (9-20) mg/dL Creatinine 2.64 H (0.66-1.25) mg/dL Estimated GFR 29.3 ML/MIN Glucose 432 H (74-106) mg/dL POC Glucometer (74 to 106) mg/dL Lactic Acid (0.4-2.0) Calcium 9.2 (8.4-10.2) mg/dL Magnesium 1.7 (1.6-2.3) mg/dL Total Bilirubin 0.90 (0.2-1.3) mg/dL AST 29 (17-59) U/L ALT 22 (0-50) U/L Alkaline Phosphatase 167 H (38-126) U/L Serum Total Protein 7.7 (6.3-8.2) g/dL Albumin 4.2 (3.5-5.0) g/dL Urinalys Dipstick Clnc Urine Color (YELLOW) Urine Appearance (CLEAR) Urine pH (5-6) Ur Specific [place] (1.005-1.025) POC Urine Protein Conf (Negative) Urine Ketones (NEGATIVE) Urine Nitrite (NEGATIVE) Urine Bilirubin (NEGATIVE) Urine Urobilinogen (0-1) mg/dL Urine Leukocytes (NEGATIVE) Urine WBC (Auto) (0-5) /HPF Urine RBC (Auto) (0-2) /HPF U Hyaline Cast (Auto) (0-2) /LPF U Epithel Cells (Auto) (FEW) /HPF Urine Bacteria (Auto) (NEGATIVE) /HPF Urine RBC (0-5) Tomas/ul Granular Casts (Auto) (NEGATIVE) /LPF Ur Culture Indicated? Urine Glucose (NEGATIVE) mg/dL Influenza Type A Ag NEGATIVE (NEGATIVE) Influenza Type B Ag NEGATIVE (NEGATIVE) RSV (PCR) NEGATIVE (Negative) SARS-CoV-2 (PCR) NEGATIVE (NEGATIVE) 04/22/22 04/22/22 04/22/22 Range/Units 10:57 12:03 13:03 WBC (4.0-10.5) x10^3/uL RBC (4.1-5.6) x10^6/uL Hgb (12.5-18.0) g/dL Hct (42-50) % MCV (78-100) fL MCH (26-32) pg MCHC (32-36) g/dL RDW (11.5-14.0) % Plt Count (150-450) x10^3/uL MPV (7.5-11.0) fL Gran % (36.0-66.0) % Immature Gran % (Auto) (0.00-0.4) % Nucleat RBC Rel Count (0.00-0.1) % Eos # (Auto) (0-0.5) x10^3/uL Immature Gran # (Auto) (0.00-0.03) x10^3u/L Absolute Lymphs (auto) (1.0-4.6) x10^3/uL Absolute Monos (auto) (0.0-1.3) x10^3/uL Absolute Nucleated RBC (0.00-0.01) x10^3u/L Lymphocytes % (24.0-44.0) % Monocytes % (0.0-12.0) % Eosinophils % (0.00-5.0) % Basophils % (0.0-0.4) % Absolute Granulocytes (1.4-6.9) x10^3/uL Basophils # (0-0.4) x10^3/uL Sodium (137-145) mmol/L Potassium (3.5-5.1) mmol/L Chloride (98-107) mmol/L Carbon Dioxide (22-30) mmol/L Anion Gap (5-15) MEQ/L BUN (9-20) mg/dL Creatinine (0.66-1.25) mg/dL Estimated GFR ML/MIN Glucose (74-106) mg/dL POC Glucometer 90 (74 to 106) mg/dL Lactic Acid 2.7 H (0.4-2.0) Calcium (8.4-10.2) mg/dL Magnesium (1.6-2.3) mg/dL Total Bilirubin (0.2-1.3) mg/dL AST (17-59) U/L ALT (0-50) U/L Alkaline Phosphatase (38-126) U/L Serum Total Protein (6.3-8.2) g/dL Albumin (3.5-5.0) g/dL Urinalys Dipstick Clnc MAIN LAB Urine Color YELLOW (YELLOW) Urine Appearance CLEAR (CLEAR) Urine pH 7.5 (5-6) Ur Specific [place] >=1.030 (1.005-1.025) POC Urine Protein Conf >=300 (Negative) Urine Ketones MODERATE-40 (NEGATIVE) Urine Nitrite POSITIVE (NEGATIVE) Urine Bilirubin SMALL (NEGATIVE) Urine Urobilinogen >=8.0 (0-1) mg/dL Urine Leukocytes SMALL (NEGATIVE) Urine WBC (Auto) NONE (0-5) /HPF Urine RBC (Auto) 6-10 (0-2) /HPF U Hyaline Cast (Auto) 0-2 (0-2) /LPF U Epithel Cells (Auto) NONE (FEW) /HPF Urine Bacteria (Auto) FEW (NEGATIVE) /HPF Urine RBC MODERATE (0-5) Tomas/ul Granular Casts (Auto) 5-10 (NEGATIVE) /LPF Ur Culture Indicated? YES Urine Glucose >=1000 (NEGATIVE) mg/dL Influenza Type A Ag (NEGATIVE) Influenza Type B Ag (NEGATIVE) RSV (PCR) (Negative) SARS-CoV-2 (PCR) (NEGATIVE) 04/22/22 04/22/22 04/22/22 Range/Units 14:00 16:00 16:50 WBC (4.0-10.5) x10^3/uL RBC (4.1-5.6) x10^6/uL Hgb (12.5-18.0) g/dL Hct (42-50) % MCV (78-100) fL MCH (26-32) pg MCHC (32-36) g/dL RDW (11.5-14.0) % Plt Count (150-450) x10^3/uL MPV (7.5-11.0) fL Gran % (36.0-66.0) % Immature Gran % (Auto) (0.00-0.4) % Nucleat RBC Rel Count (0.00-0.1) % Eos # (Auto) (0-0.5) x10^3/uL Immature Gran # (Auto) (0.00-0.03) x10^3u/L Absolute Lymphs (auto) (1.0-4.6) x10^3/uL Absolute Monos (auto) (0.0-1.3) x10^3/uL Absolute Nucleated RBC (0.00-0.01) x10^3u/L Lymphocytes % (24.0-44.0) % Monocytes % (0.0-12.0) % Eosinophils % (0.00-5.0) % Basophils % (0.0-0.4) % Absolute Granulocytes (1.4-6.9) x10^3/uL Basophils # (0-0.4) x10^3/uL Sodium 136 L (137-145) mmol/L Potassium 4.4 (3.5-5.1) mmol/L Chloride 98 (98-107) mmol/L Carbon Dioxide 25 (22-30) mmol/L Anion Gap 18.0 H (5-15) MEQ/L BUN 45 H (9-20) mg/dL Creatinine 2.39 H (0.66-1.25) mg/dL Estimated GFR 32.9 ML/MIN Glucose 261 H (74-106) mg/dL POC Glucometer 295 H 227 H (74 to 106) mg/dL Lactic Acid (0.4-2.0) Calcium 8.9 (8.4-10.2) mg/dL Magnesium (1.6-2.3) mg/dL Total Bilirubin (0.2-1.3) mg/dL AST (17-59) U/L ALT (0-50) U/L Alkaline Phosphatase (38-126) U/L Serum Total Protein (6.3-8.2) g/dL Albumin (3.5-5.0) g/dL Urinalys Dipstick Clnc Urine Color (YELLOW) Urine Appearance (CLEAR) Urine pH (5-6) Ur Specific [place] (1.005-1.025) POC Urine Protein Conf (Negative) Urine Ketones (NEGATIVE) Urine Nitrite (NEGATIVE) Urine Bilirubin (NEGATIVE) Urine Urobilinogen (0-1) mg/dL Urine Leukocytes (NEGATIVE) Urine WBC (Auto) (0-5) /HPF Urine RBC (Auto) (0-2) /HPF U Hyaline Cast (Auto) (0-2) /LPF U Epithel Cells (Auto) (FEW) /HPF Urine Bacteria (Auto) (NEGATIVE) /HPF Urine RBC (0-5) Tomas/ul Granular Casts (Auto) (NEGATIVE) /LPF Ur Culture Indicated? Urine Glucose (NEGATIVE) mg/dL Influenza Type A Ag (NEGATIVE) Influenza Type B Ag (NEGATIVE) RSV (PCR) (Negative) SARS-CoV-2 (PCR) (NEGATIVE) 04/22/22 04/22/22 04/22/22 Range/Units 17:53 18:52 20:02 WBC (4.0-10.5) x10^3/uL RBC (4.1-5.6) x10^6/uL Hgb (12.5-18.0) g/dL Hct (42-50) % MCV (78-100) fL MCH (26-32) pg MCHC (32-36) g/dL RDW (11.5-14.0) % Plt Count (150-450) x10^3/uL MPV (7.5-11.0) fL Gran % (36.0-66.0) % Immature Gran % (Auto) (0.00-0.4) % Nucleat RBC Rel Count (0.00-0.1) % Eos # (Auto) (0-0.5) x10^3/uL Immature Gran # (Auto) (0.00-0.03) x10^3u/L Absolute Lymphs (auto) (1.0-4.6) x10^3/uL Absolute Monos (auto) (0.0-1.3) x10^3/uL Absolute Nucleated RBC (0.00-0.01) x10^3u/L Lymphocytes % (24.0-44.0) % Monocytes % (0.0-12.0) % Eosinophils % (0.00-5.0) % Basophils % (0.0-0.4) % Absolute Granulocytes (1.4-6.9) x10^3/uL Basophils # (0-0.4) x10^3/uL Sodium (137-145) mmol/L Potassium (3.5-5.1) mmol/L Chloride (98-107) mmol/L Carbon Dioxide (22-30) mmol/L Anion Gap (5-15) MEQ/L BUN (9-20) mg/dL Creatinine (0.66-1.25) mg/dL Estimated GFR ML/MIN Glucose (74-106) mg/dL POC Glucometer 153 H 110 H 115 H (74 to 106) mg/dL Lactic Acid (0.4-2.0) Calcium (8.4-10.2) mg/dL Magnesium (1.6-2.3) mg/dL Total Bilirubin (0.2-1.3) mg/dL AST (17-59) U/L ALT (0-50) U/L Alkaline Phosphatase (38-126) U/L Serum Total Protein (6.3-8.2) g/dL Albumin (3.5-5.0) g/dL Urinalys Dipstick Clnc Urine Color (YELLOW) Urine Appearance (CLEAR) Urine pH (5-6) Ur Specific [place] (1.005-1.025) POC Urine Protein Conf (Negative) Urine Ketones (NEGATIVE) Urine Nitrite (NEGATIVE) Urine Bilirubin (NEGATIVE) Urine Urobilinogen (0-1) mg/dL Urine Leukocytes (NEGATIVE) Urine WBC (Auto) (0-5) /HPF Urine RBC (Auto) (0-2) /HPF U Hyaline Cast (Auto) (0-2) /LPF U Epithel Cells (Auto) (FEW) /HPF Urine Bacteria (Auto) (NEGATIVE) /HPF Urine RBC (0-5) Tomas/ul Granular Casts (Auto) (NEGATIVE) /LPF Ur Culture Indicated? Urine Glucose (NEGATIVE) mg/dL Influenza Type A Ag (NEGATIVE) Influenza Type B Ag (NEGATIVE) RSV (PCR) (Negative) SARS-CoV-2 (PCR) (NEGATIVE) 04/22/22 04/22/22 04/22/22 Range/Units 21:02 22:07 23:03 WBC (4.0-10.5) x10^3/uL RBC (4.1-5.6) x10^6/uL Hgb (12.5-18.0) g/dL Hct (42-50) % MCV (78-100) fL MCH (26-32) pg MCHC (32-36) g/dL RDW (11.5-14.0) % Plt Count (150-450) x10^3/uL MPV (7.5-11.0) fL Gran % (36.0-66.0) % Immature Gran % (Auto) (0.00-0.4) % Nucleat RBC Rel Count (0.00-0.1) % Eos # (Auto) (0-0.5) x10^3/uL Immature Gran # (Auto) (0.00-0.03) x10^3u/L Absolute Lymphs (auto) (1.0-4.6) x10^3/uL Absolute Monos (auto) (0.0-1.3) x10^3/uL Absolute Nucleated RBC (0.00-0.01) x10^3u/L Lymphocytes % (24.0-44.0) % Monocytes % (0.0-12.0) % Eosinophils % (0.00-5.0) % Basophils % (0.0-0.4) % Absolute Granulocytes (1.4-6.9) x10^3/uL Basophils # (0-0.4) x10^3/uL Sodium (137-145) mmol/L Potassium (3.5-5.1) mmol/L Chloride (98-107) mmol/L Carbon Dioxide (22-30) mmol/L Anion Gap (5-15) MEQ/L BUN (9-20) mg/dL Creatinine (0.66-1.25) mg/dL Estimated GFR ML/MIN Glucose (74-106) mg/dL POC Glucometer 142 H 164 H 167 H (74 to 106) mg/dL Lactic Acid (0.4-2.0) Calcium (8.4-10.2) mg/dL Magnesium (1.6-2.3) mg/dL Total Bilirubin (0.2-1.3) mg/dL AST (17-59) U/L ALT (0-50) U/L Alkaline Phosphatase (38-126) U/L Serum Total Protein (6.3-8.2) g/dL Albumin (3.5-5.0) g/dL Urinalys Dipstick Clnc Urine Color (YELLOW) Urine Appearance (CLEAR) Urine pH (5-6) Ur Specific [place] (1.005-1.025) POC Urine Protein Conf (Negative) Urine Ketones (NEGATIVE) Urine Nitrite (NEGATIVE) Urine Bilirubin (NEGATIVE) Urine Urobilinogen (0-1) mg/dL Urine Leukocytes (NEGATIVE) Urine WBC (Auto) (0-5) /HPF Urine RBC (Auto) (0-2) /HPF U Hyaline Cast (Auto) (0-2) /LPF U Epithel Cells (Auto) (FEW) /HPF Urine Bacteria (Auto) (NEGATIVE) /HPF Urine RBC (0-5) Tomas/ul Granular Casts (Auto) (NEGATIVE) /LPF Ur Culture Indicated? Urine Glucose (NEGATIVE) mg/dL Influenza Type A Ag (NEGATIVE) Influenza Type B Ag (NEGATIVE) RSV (PCR) (Negative) SARS-CoV-2 (PCR) (NEGATIVE) 04/23/22 04/23/22 04/23/22 Range/Units 00:01 01:01 01:59 WBC (4.0-10.5) x10^3/uL RBC (4.1-5.6) x10^6/uL Hgb (12.5-18.0) g/dL Hct (42-50) % MCV (78-100) fL MCH (26-32) pg MCHC (32-36) g/dL RDW (11.5-14.0) % Plt Count (150-450) x10^3/uL MPV (7.5-11.0) fL Gran % (36.0-66.0) % Immature Gran % (Auto) (0.00-0.4) % Nucleat RBC Rel Count (0.00-0.1) % Eos # (Auto) (0-0.5) x10^3/uL Immature Gran # (Auto) (0.00-0.03) x10^3u/L Absolute Lymphs (auto) (1.0-4.6) x10^3/uL Absolute Monos (auto) (0.0-1.3) x10^3/uL Absolute Nucleated RBC (0.00-0.01) x10^3u/L Lymphocytes % (24.0-44.0) % Monocytes % (0.0-12.0) % Eosinophils % (0.00-5.0) % Basophils % (0.0-0.4) % Absolute Granulocytes (1.4-6.9) x10^3/uL Basophils # (0-0.4) x10^3/uL Sodium (137-145) mmol/L Potassium (3.5-5.1) mmol/L Chloride (98-107) mmol/L Carbon Dioxide (22-30) mmol/L Anion Gap (5-15) MEQ/L BUN (9-20) mg/dL Creatinine (0.66-1.25) mg/dL Estimated GFR ML/MIN Glucose (74-106) mg/dL POC Glucometer 160 H 171 H 150 H (74 to 106) mg/dL Lactic Acid (0.4-2.0) Calcium (8.4-10.2) mg/dL Magnesium (1.6-2.3) mg/dL Total Bilirubin (0.2-1.3) mg/dL AST (17-59) U/L ALT (0-50) U/L Alkaline Phosphatase (38-126) U/L Serum Total Protein (6.3-8.2) g/dL Albumin (3.5-5.0) g/dL Urinalys Dipstick Clnc Urine Color (YELLOW) Urine Appearance (CLEAR) Urine pH (5-6) Ur Specific [place] (1.005-1.025) POC Urine Protein Conf (Negative) Urine Ketones (NEGATIVE) Urine Nitrite (NEGATIVE) Urine Bilirubin (NEGATIVE) Urine Urobilinogen (0-1) mg/dL Urine Leukocytes (NEGATIVE) Urine WBC (Auto) (0-5) /HPF Urine RBC (Auto) (0-2) /HPF U Hyaline Cast (Auto) (0-2) /LPF U Epithel Cells (Auto) (FEW) /HPF Urine Bacteria (Auto) (NEGATIVE) /HPF Urine RBC (0-5) Tomas/ul Granular Casts (Auto) (NEGATIVE) /LPF Ur Culture Indicated? Urine Glucose (NEGATIVE) mg/dL Influenza Type A Ag (NEGATIVE) Influenza Type B Ag (NEGATIVE) RSV (PCR) (Negative) SARS-CoV-2 (PCR) (NEGATIVE) 04/23/22 04/23/22 04/23/22 Range/Units 03:04 03:59 05:03 WBC (4.0-10.5) x10^3/uL RBC (4.1-5.6) x10^6/uL Hgb (12.5-18.0) g/dL Hct (42-50) % MCV (78-100) fL MCH (26-32) pg MCHC (32-36) g/dL RDW (11.5-14.0) % Plt Count (150-450) x10^3/uL MPV (7.5-11.0) fL Gran % (36.0-66.0) % Immature Gran % (Auto) (0.00-0.4) % Nucleat RBC Rel Count (0.00-0.1) % Eos # (Auto) (0-0.5) x10^3/uL Immature Gran # (Auto) (0.00-0.03) x10^3u/L Absolute Lymphs (auto) (1.0-4.6) x10^3/uL Absolute Monos (auto) (0.0-1.3) x10^3/uL Absolute Nucleated RBC (0.00-0.01) x10^3u/L Lymphocytes % (24.0-44.0) % Monocytes % (0.0-12.0) % Eosinophils % (0.00-5.0) % Basophils % (0.0-0.4) % Absolute Granulocytes (1.4-6.9) x10^3/uL Basophils # (0-0.4) x10^3/uL Sodium (137-145) mmol/L Potassium (3.5-5.1) mmol/L Chloride (98-107) mmol/L Carbon Dioxide (22-30) mmol/L Anion Gap (5-15) MEQ/L BUN (9-20) mg/dL Creatinine (0.66-1.25) mg/dL Estimated GFR ML/MIN Glucose (74-106) mg/dL POC Glucometer 170 H 144 H 109 H (74 to 106) mg/dL Lactic Acid (0.4-2.0) Calcium (8.4-10.2) mg/dL Magnesium (1.6-2.3) mg/dL Total Bilirubin (0.2-1.3) mg/dL AST (17-59) U/L ALT (0-50) U/L Alkaline Phosphatase (38-126) U/L Serum Total Protein (6.3-8.2) g/dL Albumin (3.5-5.0) g/dL Urinalys Dipstick Clnc Urine Color (YELLOW) Urine Appearance (CLEAR) Urine pH (5-6) Ur Specific [place] (1.005-1.025) POC Urine Protein Conf (Negative) Urine Ketones (NEGATIVE) Urine Nitrite (NEGATIVE) Urine Bilirubin (NEGATIVE) Urine Urobilinogen (0-1) mg/dL Urine Leukocytes (NEGATIVE) Urine WBC (Auto) (0-5) /HPF Urine RBC (Auto) (0-2) /HPF U Hyaline Cast (Auto) (0-2) /LPF U Epithel Cells (Auto) (FEW) /HPF Urine Bacteria (Auto) (NEGATIVE) /HPF Urine RBC (0-5) Tomas/ul Granular Casts (Auto) (NEGATIVE) /LPF Ur Culture Indicated? Urine Glucose (NEGATIVE) mg/dL Influenza Type A Ag (NEGATIVE) Influenza Type B Ag (NEGATIVE) RSV (PCR) (Negative) SARS-CoV-2 (PCR) (NEGATIVE) 04/23/22 04/23/22 04/23/22 Range/Units 05:32 05:32 05:33 WBC (4.0-10.5) x10^3/uL RBC (4.1-5.6) x10^6/uL Hgb (12.5-18.0) g/dL Hct (42-50) % MCV (78-100) fL MCH (26-32) pg MCHC (32-36) g/dL RDW (11.5-14.0) % Plt Count (150-450) x10^3/uL MPV (7.5-11.0) fL Gran % (36.0-66.0) % Immature Gran % (Auto) (0.00-0.4) % Nucleat RBC Rel Count (0.00-0.1) % Eos # (Auto) (0-0.5) x10^3/uL Immature Gran # (Auto) (0.00-0.03) x10^3u/L Absolute Lymphs (auto) (1.0-4.6) x10^3/uL Absolute Monos (auto) (0.0-1.3) x10^3/uL Absolute Nucleated RBC (0.00-0.01) x10^3u/L Lymphocytes % (24.0-44.0) % Monocytes % (0.0-12.0) % Eosinophils % (0.00-5.0) % Basophils % (0.0-0.4) % Absolute Granulocytes (1.4-6.9) x10^3/uL Basophils # (0-0.4) x10^3/uL Sodium 136 L (137-145) mmol/L Potassium 3.9 (3.5-5.1) mmol/L Chloride 102 (98-107) mmol/L Carbon Dioxide 28 (22-30) mmol/L Anion Gap 10.2 (5-15) MEQ/L BUN 32 H (9-20) mg/dL Creatinine 2.25 H (0.66-1.25) mg/dL Estimated GFR 35.3 ML/MIN Glucose 121 H (74-106) mg/dL POC Glucometer (74 to 106) mg/dL Lactic Acid 2.3 H (0.4-2.0) Calcium 8.1 L (8.4-10.2) mg/dL Magnesium 1.7 (1.6-2.3) mg/dL Total Bilirubin 0.40 (0.2-1.3) mg/dL AST 27 (17-59) U/L ALT 19 (0-50) U/L Alkaline Phosphatase 134 H (38-126) U/L Serum Total Protein 6.9 (6.3-8.2) g/dL Albumin 3.6 (3.5-5.0) g/dL Urinalys Dipstick Clnc Urine Color (YELLOW) Urine Appearance (CLEAR) Urine pH (5-6) Ur Specific [place] (1.005-1.025) POC Urine Protein Conf (Negative) Urine Ketones (NEGATIVE) Urine Nitrite (NEGATIVE) Urine Bilirubin (NEGATIVE) Urine Urobilinogen (0-1) mg/dL Urine Leukocytes (NEGATIVE) Urine WBC (Auto) (0-5) /HPF Urine RBC (Auto) (0-2) /HPF U Hyaline Cast (Auto) (0-2) /LPF U Epithel Cells (Auto) (FEW) /HPF Urine Bacteria (Auto) (NEGATIVE) /HPF Urine RBC (0-5) Tomas/ul Granular Casts (Auto) (NEGATIVE) /LPF Ur Culture Indicated? Urine Glucose (NEGATIVE) mg/dL Influenza Type A Ag (NEGATIVE) Influenza Type B Ag (NEGATIVE) RSV (PCR) (Negative) SARS-CoV-2 (PCR) (NEGATIVE) 04/23/22 04/23/22 Range/Units 06:05 07:02 WBC (4.0-10.5) x10^3/uL RBC (4.1-5.6) x10^6/uL Hgb (12.5-18.0) g/dL Hct (42-50) % MCV (78-100) fL MCH (26-32) pg MCHC (32-36) g/dL RDW (11.5-14.0) % Plt Count (150-450) x10^3/uL MPV (7.5-11.0) fL Gran % (36.0-66.0) % Immature Gran % (Auto) (0.00-0.4) % Nucleat RBC Rel Count (0.00-0.1) % Eos # (Auto) (0-0.5) x10^3/uL Immature Gran # (Auto) (0.00-0.03) x10^3u/L Absolute Lymphs (auto) (1.0-4.6) x10^3/uL Absolute Monos (auto) (0.0-1.3) x10^3/uL Absolute Nucleated RBC (0.00-0.01) x10^3u/L Lymphocytes % (24.0-44.0) % Monocytes % (0.0-12.0) % Eosinophils % (0.00-5.0) % Basophils % (0.0-0.4) % Absolute Granulocytes (1.4-6.9) x10^3/uL Basophils # (0-0.4) x10^3/uL Sodium (137-145) mmol/L Potassium (3.5-5.1) mmol/L Chloride (98-107) mmol/L Carbon Dioxide (22-30) mmol/L Anion Gap (5-15) MEQ/L BUN (9-20) mg/dL Creatinine (0.66-1.25) mg/dL Estimated GFR ML/MIN Glucose (74-106) mg/dL POC Glucometer 105 124 H (74 to 106) mg/dL Lactic Acid (0.4-2.0) Calcium (8.4-10.2) mg/dL Magnesium (1.6-2.3) mg/dL Total Bilirubin (0.2-1.3) mg/dL AST (17-59) U/L ALT (0-50) U/L Alkaline Phosphatase (38-126) U/L Serum Total Protein (6.3-8.2) g/dL Albumin (3.5-5.0) g/dL Urinalys Dipstick Clnc Urine Color (YELLOW) Urine Appearance (CLEAR) Urine pH (5-6) Ur Specific [place] (1.005-1.025) POC Urine Protein Conf (Negative) Urine Ketones (NEGATIVE) Urine Nitrite (NEGATIVE) Urine Bilirubin (NEGATIVE) Urine Urobilinogen (0-1) mg/dL Urine Leukocytes (NEGATIVE) Urine WBC (Auto) (0-5) /HPF Urine RBC (Auto) (0-2) /HPF U Hyaline Cast (Auto) (0-2) /LPF U Epithel Cells (Auto) (FEW) /HPF Urine Bacteria (Auto) (NEGATIVE) /HPF Urine RBC (0-5) Tomas/ul Granular Casts (Auto) (NEGATIVE) /LPF Ur Culture Indicated? Urine Glucose (NEGATIVE) mg/dL Influenza Type A Ag (NEGATIVE) Influenza Type B Ag (NEGATIVE) RSV (PCR) (Negative) SARS-CoV-2 (PCR) (NEGATIVE) Accuchecks Date 04/23/22 Date 04/23/22 Date 04/23/22 Date 04/23/22 Date 04/23/22 Date 04/23/22 Date 04/23/22 Date 04/23/22 Date 04/22/22 Date 04/22/22 Date 04/22/22 Date 04/22/22 Date 04/22/22 Date 04/22/22 Date 04/22/22 Date 04/22/22 Date 04/22/22 Time 06:02 Time 06:02 Time 05:02 Time 04:01 Time 03:04 Time 02:00 Time 01:02 Time 00:03 Time 22:04 Time 22:06 Time 21:05 Time 20:03 Time 17:55 Time 17:55 Time 16:00 Time 12:00 - Radiology Impressions Radiology Exams & Impressions: Radiology Procedures Category Date Time Status CHEST 1 VIEW (PORTABLE) Stat Exams 04/22/22 08:58 Completed Assessment/Plan (1) DKA (diabetic ketoacidoses) Current Visit: Yes Status: Acute Qualifiers: Diabetes mellitus type: type 1 Diabetes mellitus complication detail: without coma Qualified Code(s): E10.10 - Type 1 diabetes mellitus with ketoacidosis without coma Assessment & Plan: Chief Complaint Diagnosis dka Allergies Allergy/AdvReac Type Severity Reaction Status Date / Time No Known Drug Allergies Allergy Verified 01/19/22 17:14 Vital Signs (Last 24 hours) Temp Pulse Resp BP BP Pulse Ox 04/23/22 07:05 97 H 04/23/22 07:00 97.3 F 97 H 18 183/112 99 04/23/22 06:00 86 18 188/110 99 04/23/22 05:00 87 17 171/117 98 04/23/22 04:00 91 H 17 179/105 98 04/23/22 03:00 92 H 16 127/83 99 04/23/22 02:00 111 H 20 182/116 98 04/23/22 01:00 86 16 155/96 977 H 04/23/22 00:01 100 H 04/23/22 00:00 100 H 16 126/67 98 04/22/22 23:00 88 16 137/68 96 04/22/22 22:00 91 H 19 129/76 97 04/22/22 21:00 123 H 21 186/117 99 04/22/22 20:00 98.6 F 96 H 13 165/94 04/22/22 19:38 94 H 04/22/22 18:55 104 H 21 127/80 93 L 04/22/22 17:55 97 H 20 164/106 96 04/22/22 16:58 103 H 16 187/105 04/22/22 16:00 97.8 F 116 H 18 189/125 194/114 97 04/22/22 15:52 97 H 04/22/22 15:00 94 H 16 137/80 194/114 04/22/22 14:00 102 H 16 184/93 04/22/22 13:00 97.7 F 97 H 14 182/92 100 04/22/22 11:58 97.7 F 105 H 179/104 99 04/22/22 11:03 101 H 20 194/114 97 04/22/22 10:10 100 Current Medications Generic Name Dose Route Start Last Admin Trade Name Freq PRN Reason Stop Dose Admin Famotidine 20 mg 04/22/22 22:00 04/23/22 07:32 Famotidine 20 Mg/1 Vial IV 05/22/22 21:59 20 mg Q12HT XIN Administration Ceftriaxone Sodium/Dextrose 1 g in 50 mls @ 100 mls/hr 04/22/22 13:00 04/23/22 07:33 Rocephin 1 Gm-D5w 50 Ml Bag IV 04/25/22 12:59 100 mls/hr Q24H10 XIN Administration Potassium Chloride/Dextrose/Sod Cl 1,000 mls @ 150 mls/hr 04/22/22 12:30 04/23/22 08:32 Dextrose 5% -Nacl 0.9% 1000 Ml + Kcl 20 Meq IV 05/22/22 12:29 Not Given .Q6H40M XIN Promethazine HCl 12.5 mg/ 100.5 mls @ 201 mls/hr 04/22/22 13:47 04/22/22 13:59 Sodium Chloride IV 05/22/22 13:46 201 mls/hr Q4H PRN PRN Administration UNCONTROLLED NAUSEA Insulin Human Lispro 0 unit 04/23/22 08:30 04/23/22 08:28 Insulin Lispro 1 Unit SQ 05/23/22 08:29 15 unit TIDWM XIN Administration Morphine Sulfate 2 mg 04/22/22 10:11 04/22/22 16:41 Morphine Sulfate 2 Mg/Ml Inj IV 04/27/22 10:10 2 mg Q4H PRN PRN Administration PAIN Ondansetron HCl 4 mg 04/22/22 10:11 04/22/22 22:08 Ondansetron Hcl 4 Mg/2 Ml Vial IV 05/22/22 10:10 4 mg Q6H PRN PRN Administration NAUSEA/VOMITING Pantoprazole Sodium 40 mg 04/22/22 14:00 04/23/22 07:32 Pantoprazole 40 Mg Vial IV 05/22/22 13:59 40 mg Q24H10 XIN Administration Discontinued Medications Generic Name Dose Route Start Last Admin Trade Name Kelsie PRN Reason Stop Dose Admin Sodium Chloride 1,000 mls @ 999 mls/hr 04/22/22 08:29 04/22/22 11:21 Sodium Chloride 0.9% 1000 Ml IV 04/22/22 09:29 Infused .Q1H1M STA Infusion Insulin Human Regular 100 unit 100 mls @ 14.987 mls/hr 04/22/22 08:31 04/23/22 08:00 / Sodium Chloride IV 05/22/22 08:30 0 unit/kg/hr .Q6H41M PRN 0 mls/hr DKA/HYPERGLYCEMIA Titration Protocol 0.2 UNIT/KG/HR Sodium Chloride Confirm 04/22/22 08:49 Sodium Chloride 0.9% 1000 Ml Administered 04/22/22 08:50 Dose 1,000 mls @ ud .ROUTE .STK-MED ONE Potassium Chloride/Sodium Chloride 1,000 mls @ 150 mls/hr 04/22/22 10:15 04/22/22 12:07 Sodium Chloride 0.9% W/ 20 Meq Kcl/Liter IV 05/22/22 10:14 Not Given .Q6H40M XIN Ondansetron HCl Confirm 04/22/22 08:50 Ondansetron Hcl 4 Mg/2 Ml Vial Administered 04/22/22 08:51 Dose 4 mg .ROUTE .STK-MED ONE Ondansetron HCl 4 mg 04/22/22 08:52 04/22/22 08:53 Ondansetron Hcl 4 Mg/2 Ml Vial IV 04/22/22 08:53 4 mg STAT ONE Administration Intake & Output (Last 24 hours) 04/20/22 04/21/22 04/22/22 04/23/22 11:59 11:59 11:59 11:59 Intake Total 2857 Output Total 1900 Balance 957 Weight 73.7 kg 73.7 kg Microbiology Results (Last 24 hours) 04/22/22 13:03 Urine, Void Urine Culture - Pending Laboratory Results (Last 24 hours) 04/23/22 04/23/22 04/23/22 07:02 06:05 05:33 WBC RBC Hgb Hct MCV MCH MCHC RDW Plt Count MPV Gran % Immature Gran % (Auto) Nucleat RBC Rel Count Eos # (Auto) Immature Gran # (Auto) Absolute Lymphs (auto) Absolute Monos (auto) Absolute Nucleated RBC Lymphocytes % Monocytes % Eosinophils % Basophils % Absolute Granulocytes Basophils # Sodium Potassium Chloride Carbon Dioxide Anion Gap BUN Creatinine Estimated GFR Glucose POC Glucometer 124 H 105 Lactic Acid 2.3 H Calcium Magnesium Total Bilirubin AST ALT Alkaline Phosphatase Serum Total Protein Albumin Urinalys Dipstick Clnc Urine Color Urine Appearance Urine pH Ur Specific [place] POC Urine Protein Conf Urine Ketones Urine Nitrite Urine Bilirubin Urine Urobilinogen Urine Leukocytes Urine WBC (Auto) Urine RBC (Auto) U Hyaline Cast (Auto) U Epithel Cells (Auto) Urine Bacteria (Auto) Urine RBC Granular Casts (Auto) Ur Culture Indicated? Urine Glucose Influenza Type A Ag Influenza Type B Ag RSV (PCR) SARS-CoV-2 (PCR) 04/23/22 04/23/22 04/23/22 05:32 05:32 05:03 WBC RBC Hgb Hct MCV MCH MCHC RDW Plt Count MPV Gran % Immature Gran % (Auto) Nucleat RBC Rel Count Eos # (Auto) Immature Gran # (Auto) Absolute Lymphs (auto) Absolute Monos (auto) Absolute Nucleated RBC Lymphocytes % Monocytes % Eosinophils % Basophils % Absolute Granulocytes Basophils # Sodium 136 L Potassium 3.9 Chloride 102 Carbon Dioxide 28 Anion Gap 10.2 BUN 32 H Creatinine 2.25 H Estimated GFR 35.3 Glucose 121 H POC Glucometer 109 H Lactic Acid Calcium 8.1 L Magnesium 1.7 Total Bilirubin 0.40 AST 27 ALT 19 Alkaline Phosphatase 134 H Serum Total Protein 6.9 Albumin 3.6 Urinalys Dipstick Clnc Urine Color Urine Appearance Urine pH Ur Specific [place] POC Urine Protein Conf Urine Ketones Urine Nitrite Urine Bilirubin Urine Urobilinogen Urine Leukocytes Urine WBC (Auto) Urine RBC (Auto) U Hyaline Cast (Auto) U Epithel Cells (Auto) Urine Bacteria (Auto) Urine RBC Granular Casts (Auto) Ur Culture Indicated? Urine Glucose Influenza Type A Ag Influenza Type B Ag RSV (PCR) SARS-CoV-2 (PCR) 04/23/22 04/23/22 04/23/22 03:59 03:04 01:59 WBC RBC Hgb Hct MCV MCH MCHC RDW Plt Count MPV Gran % Immature Gran % (Auto) Nucleat RBC Rel Count Eos # (Auto) Immature Gran # (Auto) Absolute Lymphs (auto) Absolute Monos (auto) Absolute Nucleated RBC Lymphocytes % Monocytes % Eosinophils % Basophils % Absolute Granulocytes Basophils # Sodium Potassium Chloride Carbon Dioxide Anion Gap BUN Creatinine Estimated GFR Glucose POC Glucometer 144 H 170 H 150 H Lactic Acid Calcium Magnesium Total Bilirubin AST ALT Alkaline Phosphatase Serum Total Protein Albumin Urinalys Dipstick Clnc Urine Color Urine Appearance Urine pH Ur Specific [place] POC Urine Protein Conf Urine Ketones Urine Nitrite Urine Bilirubin Urine Urobilinogen Urine Leukocytes Urine WBC (Auto) Urine RBC (Auto) U Hyaline Cast (Auto) U Epithel Cells (Auto) Urine Bacteria (Auto) Urine RBC Granular Casts (Auto) Ur Culture Indicated? Urine Glucose Influenza Type A Ag Influenza Type B Ag RSV (PCR) SARS-CoV-2 (PCR) 04/23/22 04/23/22 04/22/22 01:01 00:01 23:03 WBC RBC Hgb Hct MCV MCH MCHC RDW Plt Count MPV Gran % Immature Gran % (Auto) Nucleat RBC Rel Count Eos # (Auto) Immature Gran # (Auto) Absolute Lymphs (auto) Absolute Monos (auto) Absolute Nucleated RBC Lymphocytes % Monocytes % Eosinophils % Basophils % Absolute Granulocytes Basophils # Sodium Potassium Chloride Carbon Dioxide Anion Gap BUN Creatinine Estimated GFR Glucose POC Glucometer 171 H 160 H 167 H Lactic Acid Calcium Magnesium Total Bilirubin AST ALT Alkaline Phosphatase Serum Total Protein Albumin Urinalys Dipstick Clnc Urine Color Urine Appearance Urine pH Ur Specific [place] POC Urine Protein Conf Urine Ketones Urine Nitrite Urine Bilirubin Urine Urobilinogen Urine Leukocytes Urine WBC (Auto) Urine RBC (Auto) U Hyaline Cast (Auto) U Epithel Cells (Auto) Urine Bacteria (Auto) Urine RBC Granular Casts (Auto) Ur Culture Indicated? Urine Glucose Influenza Type A Ag Influenza Type B Ag RSV (PCR) SARS-CoV-2 (PCR) 04/22/22 04/22/22 04/22/22 22:07 21:02 20:02 WBC RBC Hgb Hct MCV MCH MCHC RDW Plt Count MPV Gran % Immature Gran % (Auto) Nucleat RBC Rel Count Eos # (Auto) Immature Gran # (Auto) Absolute Lymphs (auto) Absolute Monos (auto) Absolute Nucleated RBC Lymphocytes % Monocytes % Eosinophils % Basophils % Absolute Granulocytes Basophils # Sodium Potassium Chloride Carbon Dioxide Anion Gap BUN Creatinine Estimated GFR Glucose POC Glucometer 164 H 142 H 115 H Lactic Acid Calcium Magnesium Total Bilirubin AST ALT Alkaline Phosphatase Serum Total Protein Albumin Urinalys Dipstick Clnc Urine Color Urine Appearance Urine pH Ur Specific [place] POC Urine Protein Conf Urine Ketones Urine Nitrite Urine Bilirubin Urine Urobilinogen Urine Leukocytes Urine WBC (Auto) Urine RBC (Auto) U Hyaline Cast (Auto) U Epithel Cells (Auto) Urine Bacteria (Auto) Urine RBC Granular Casts (Auto) Ur Culture Indicated? Urine Glucose Influenza Type A Ag Influenza Type B Ag RSV (PCR) SARS-CoV-2 (PCR) 04/22/22 04/22/22 04/22/22 18:52 17:53 16:50 WBC RBC Hgb Hct MCV MCH MCHC RDW Plt Count MPV Gran % Immature Gran % (Auto) Nucleat RBC Rel Count Eos # (Auto) Immature Gran # (Auto) Absolute Lymphs (auto) Absolute Monos (auto) Absolute Nucleated RBC Lymphocytes % Monocytes % Eosinophils % Basophils % Absolute Granulocytes Basophils # Sodium Potassium Chloride Carbon Dioxide Anion Gap BUN Creatinine Estimated GFR Glucose POC Glucometer 110 H 153 H 227 H Lactic Acid Calcium Magnesium Total Bilirubin AST ALT Alkaline Phosphatase Serum Total Protein Albumin Urinalys Dipstick Clnc Urine Color Urine Appearance Urine pH Ur Specific [place] POC Urine Protein Conf Urine Ketones Urine Nitrite Urine Bilirubin Urine Urobilinogen Urine Leukocytes Urine WBC (Auto) Urine RBC (Auto) U Hyaline Cast (Auto) U Epithel Cells (Auto) Urine Bacteria (Auto) Urine RBC Granular Casts (Auto) Ur Culture Indicated? Urine Glucose Influenza Type A Ag Influenza Type B Ag RSV (PCR) SARS-CoV-2 (PCR) 04/22/22 04/22/22 04/22/22 16:00 14:00 13:03 WBC RBC Hgb Hct MCV MCH MCHC RDW Plt Count MPV Gran % Immature Gran % (Auto) Nucleat RBC Rel Count Eos # (Auto) Immature Gran # (Auto) Absolute Lymphs (auto) Absolute Monos (auto) Absolute Nucleated RBC Lymphocytes % Monocytes % Eosinophils % Basophils % Absolute Granulocytes Basophils # Sodium 136 L Potassium 4.4 Chloride 98 Carbon Dioxide 25 Anion Gap 18.0 H BUN 45 H Creatinine 2.39 H Estimated GFR 32.9 Glucose 261 H POC Glucometer 295 H Lactic Acid Calcium 8.9 Magnesium Total Bilirubin AST ALT Alkaline Phosphatase Serum Total Protein Albumin Urinalys Dipstick Clnc MAIN LAB Urine Color YELLOW Urine Appearance CLEAR Urine pH 7.5 Ur Specific [place] >=1.030 POC Urine Protein Conf >=300 Urine Ketones MODERATE-40 Urine Nitrite POSITIVE Urine Bilirubin SMALL Urine Urobilinogen >=8.0 Urine Leukocytes SMALL Urine WBC (Auto) NONE Urine RBC (Auto) 6-10 U Hyaline Cast (Auto) 0-2 U Epithel Cells (Auto) NONE Urine Bacteria (Auto) FEW Urine RBC MODERATE Granular Casts (Auto) 5-10 Ur Culture Indicated? YES Urine Glucose >=1000 Influenza Type A Ag Influenza Type B Ag RSV (PCR) SARS-CoV-2 (PCR) 04/22/22 04/22/22 04/22/22 12:03 10:57 10:15 WBC RBC Hgb Hct MCV MCH MCHC RDW Plt Count MPV Gran % Immature Gran % (Auto) Nucleat RBC Rel Count Eos # (Auto) Immature Gran # (Auto) Absolute Lymphs (auto) Absolute Monos (auto) Absolute Nucleated RBC Lymphocytes % Monocytes % Eosinophils % Basophils % Absolute Granulocytes Basophils # Sodium Potassium Chloride Carbon Dioxide Anion Gap BUN Creatinine Estimated GFR Glucose POC Glucometer 90 Lactic Acid 2.7 H Calcium Magnesium Total Bilirubin AST ALT Alkaline Phosphatase Serum Total Protein Albumin Urinalys Dipstick Clnc Urine Color Urine Appearance Urine pH Ur Specific [place] POC Urine Protein Conf Urine Ketones Urine Nitrite Urine Bilirubin Urine Urobilinogen Urine Leukocytes Urine WBC (Auto) Urine RBC (Auto) U Hyaline Cast (Auto) U Epithel Cells (Auto) Urine Bacteria (Auto) Urine RBC Granular Casts (Auto) Ur Culture Indicated? Urine Glucose Influenza Type A Ag NEGATIVE Influenza Type B Ag NEGATIVE RSV (PCR) NEGATIVE SARS-CoV-2 (PCR) NEGATIVE 04/22/22 04/22/22 08:45 08:45 WBC 10.6 H RBC 4.30 Hgb 12.6 Hct 37.7 L MCV 87.7 MCH 29.3 MCHC 33.4 RDW 12.2 Plt Count 452 H MPV 8.3 Gran % 81.0 H Immature Gran % (Auto) 0.3 Nucleat RBC Rel Count 0.0 Eos # (Auto) 0.17 Immature Gran # (Auto) 0.03 Absolute Lymphs (auto) 0.87 L Absolute Monos (auto) 0.88 Absolute Nucleated RBC 0.00 Lymphocytes % 8.2 L Monocytes % 8.3 Eosinophils % 1.6 Basophils % 0.6 Absolute Granulocytes 8.58 H Basophils # 0.06 Sodium 134 L Potassium 4.7 Chloride 93 L Carbon Dioxide 21 L Anion Gap 24.1 H BUN 43 H Creatinine 2.64 H Estimated GFR 29.3 Glucose 432 H POC Glucometer Lactic Acid Calcium 9.2 Magnesium 1.7 Total Bilirubin 0.90 AST 29 ALT 22 Alkaline Phosphatase 167 H Serum Total Protein 7.7 Albumin 4.2 Urinalys Dipstick Clnc Urine Color Urine Appearance Urine pH Ur Specific [place] POC Urine Protein Conf Urine Ketones Urine Nitrite Urine Bilirubin Urine Urobilinogen Urine Leukocytes Urine WBC (Auto) Urine RBC (Auto) U Hyaline Cast (Auto) U Epithel Cells (Auto) Urine Bacteria (Auto) Urine RBC Granular Casts (Auto) Ur Culture Indicated? Urine Glucose Influenza Type A Ag Influenza Type B Ag RSV (PCR) SARS-CoV-2 (PCR) Orders (Last 24 hours) Category Date Time Status Up Ad Shi ROUTINE Activity 04/22/22 10:14 Active Code Status Order ROUTINE Care 04/22/22 10:11 Active IV Care Q6H Care 04/22/22 10:11 Completed Intake and Output Q12H Care 04/22/22 10:[address] in Observation ROUTINE Care 04/22/22 10:11 Active Armin Wang, Apply ROUTINE Care 04/22/22 10:11 Active Vital Signs Q4H Care 04/22/22 10:11 Active Weight,Daily 0600 Care 04/22/22 10:11 Active Consistent Carbohydrate Diet 1800 Calorie Diet 04/22/22 Dinner Active CHEST 1 VIEW (PORTABLE) Stat Exams 04/22/22 08:58 Completed BMP Stat Lab 04/22/22 14:00 Completed CBC W DIFF AM.LAB Lab 04/23/22 05:32 Received CMP AM.LAB Lab 04/23/22 05:32 Completed COVID/FLU/RSV Panel Stat Lab 04/22/22 10:15 Completed CULTURE,URINE Stat Lab 04/22/22 13:03 Received Lactic Acid AM.LAB Lab 04/23/22 05:33 Completed Lactic Acid Stat Lab 04/22/22 10:57 Completed MAG [MAGNESIUM] AM.LAB Lab 04/23/22 05:32 Completed POCT GLUCOSE Stat Lab 04/22/22 12:03 Completed POCT GLUCOSE Stat Lab 04/22/22 16:00 Completed POCT GLUCOSE Stat Lab 04/22/22 16:50 Completed POCT GLUCOSE Stat Lab 04/22/22 17:53 Completed POCT GLUCOSE Stat Lab 04/22/22 18:52 Completed POCT GLUCOSE Stat Lab 04/22/22 20:02 Completed POCT GLUCOSE Stat Lab 04/22/22 21:02 Completed POCT GLUCOSE Stat Lab 04/22/22 22:07 Completed POCT GLUCOSE Stat Lab 04/22/22 23:03 Completed POCT GLUCOSE Stat Lab 04/23/22 00:01 Completed POCT GLUCOSE Stat Lab 04/23/22 01:01 Completed POCT GLUCOSE Stat Lab 04/23/22 01:59 Completed POCT GLUCOSE Stat Lab 04/23/22 03:04 Completed POCT GLUCOSE Stat Lab 04/23/22 03:59 Completed POCT GLUCOSE Stat Lab 04/23/22 05:03 Completed POCT GLUCOSE Stat Lab 04/23/22 06:05 Completed POCT GLUCOSE Stat Lab 04/23/22 07:02 Completed UA W/RFX CULTURE Stat Lab 04/22/22 13:03 Completed Ceftriaxone 1 GM/50 ML PREMIX* [ROCEPHIN 1 Gm-D5w 50 ml Med 04/22/22 13:00 Active Bag] 1 g in 50 ml IV Q24H10 D5ns 1000 ml + KCl 20 Meq [DEXTROSE 5% -NACL 0.9% 1000 Med 04/22/22 12:30 Active ML + KCl 20 MEQ] 1,000 ml IV 150 mls/hr Famotidine 20 mg Vial [Pepcid 20 MG VIAL] Med 04/22/22 22:00 Active 20 mg IV Q12HT Insulin Lispro [Humalog] Med 04/23/22 08:30 Active 0 unit SQ TIDWM Morphine Sulfate 2 mg Inj Med 04/22/22 10:11 Active 2 mg IV Q4H PRN PRN NaCl 0.9% 1000 ml + KCl 20 Meq [Sodium Chloride 0.9% W/ Med 04/22/22 10:15 Discontinued 20 mEq KCl/LITER] 1,000 ml IV 150 mls/hr NaCl 0.9% 1000 ml [Sodium Chloride 0.9% 1000 ML] 1,000 Med 04/22/22 08:49 Discontinued ml .ROUTE UD Ondansetron HCl 4 mg/2 ml [Zofran 4 MG/2 ML VIAL] Med 04/22/22 08:50 Discontinued 4 mg .ROUTE .STK-MED ONE Ondansetron HCl 4 mg/2 ml [Zofran 4 MG/2 ML VIAL] Med 04/22/22 10:11 Active 4 mg IV Q6H PRN PRN Ondansetron HCl 4 mg/2 ml [Zofran 4 MG/2 ML VIAL] Med 04/22/22 08:52 Discontinued 4 mg IV STAT ONE Pantoprazole 40 mg [Protonix 40 mg IV] Med 04/22/22 14:00 Active 40 mg IV Q24H10 Promethazine HCl 25 mg Amp [Phenergan 25 MG INJ] Med 04/22/22 13:47 Active 12.5 mg NaCl 0.9% [Sodium Chloride 0.9%] 100 ml IV Q4H PRN Patient Care Notes (Last 24 hours) 04/23/22 08:04 Nursing Note by Chelsey Sim am labs noted, insulin drip off. Initialized on 04/23/22 08:04 - END OF NOTE 04/22/22 22:14 Nursing Note by Magaly John Patient had chewing tobacco at bedside. This nurse found emesis bag with emesis, clear and tobacco. Education provided to patient to not use tobacco product, and at this time will make nausea and vomiting worse. Patient did not provide any acknowledgement to education. Initialized on 04/22/22 22:14 - END OF NOTE 04/22/22 19:55 Nursing Note by Magaly John Spoke with Dr. Bronson to clarify labs to be drawn. CBC, CMP, and Mag in the AM. Initialized on 04/22/22 19:55 - END OF NOTE 04/22/22 14:54 Nursing Note by Chelsey Sim labs noted, insulin drip resumed @ 5units/hr or 5cc/hr. Initialized on 04/22/22 14:54 - END OF NOTE 04/22/22 12:00 (created 04/22/22 14:52) Nursing Note by Chelsey Sim pt blood sugar 90 on fingerstick. insulin drip off. updated dr bronson and new orders given to change ivf to [id number] 20kcl @150cc/hr and then continue insulin drip when blood sugar comes up. Initialized on 04/22/22 14:52 - END OF NOTE Code(s): E11.10 - TYPE 2 DIABETES MELLITUS WITH KETOACIDOSIS WITHOUT COMA (2) NINFA (acute kidney injury) Current Visit: Yes Status: Acute Code(s): N17.9 - ACUTE KIDNEY FAILURE, UNSPECIFIED (3) Nausea & vomiting Current Visit: No Status: Resolved Qualifiers: Code(s): R11.2 - NAUSEA WITH VOMITING, UNSPECIFIED
[2022-04-23] MEDS ORDERED: Zestril 10 MG PO SCH (12:00)
--- NOTE | 2022-04-23 12:30 | PCM.DS ---
Discharge Summary Date of Admission: 04/22/22 11:48 Admitting Physician: MARNI SIFUENTES Primary Care Provider: VALENTINA STARKS Allergies Allergies No Known Drug Allergies Allergy (Verified 01/19/22 17:14) Hospital Summary - Hospital Course Hospital Course: Chief Complaint Diagnosis nausea, vomiting, generalised body pain for 1 day Allergies Allergy/AdvReac Type Severity Reaction Status Date / Time No Known Drug Allergies Allergy Verified 01/19/22 17:14 Vital Signs (Last 24 hours) Temp Pulse Resp BP BP Pulse Ox 04/23/22 07:05 97 H 04/23/22 07:00 97.3 F 97 H 18 183/112 99 04/23/22 06:00 86 18 188/110 99 04/23/22 05:00 87 17 171/117 98 04/23/22 04:00 91 H 17 179/105 98 04/23/22 03:00 92 H 16 127/83 99 04/23/22 02:00 111 H 20 182/116 98 04/23/22 01:00 86 16 155/96 977 H 04/23/22 00:01 100 H 04/23/22 00:00 100 H 16 126/67 98 04/22/22 23:00 88 16 137/68 96 04/22/22 22:00 91 H 19 129/76 97 04/22/22 21:00 123 H 21 186/117 99 04/22/22 20:00 98.6 F 96 H 13 165/94 04/22/22 19:38 94 H 04/22/22 18:55 104 H 21 127/80 93 L 04/22/22 17:55 97 H 20 164/106 96 04/22/22 16:58 103 H 16 187/105 04/22/22 16:00 97.8 F 116 H 18 189/125 194/114 97 04/22/22 15:52 97 H 04/22/22 15:00 94 H 16 137/80 194/114 04/22/22 14:00 102 H 16 184/93 04/22/22 13:00 97.7 F 97 H 14 182/92 100 Current Medications Discontinued Medications Generic Name Dose Route Start Last Admin Trade Name Freq PRN Reason Stop Dose Admin Famotidine 20 mg 04/22/22 22:00 04/23/22 07:32 Famotidine 20 Mg/1 Vial IV 05/22/22 21:59 20 mg Q12HT XIN Administration Sodium Chloride 1,000 mls @ 999 mls/hr 04/22/22 08:29 04/22/22 11:21 Sodium Chloride 0.9% 1000 Ml IV 04/22/22 09:29 Infused .Q1H1M STA Infusion Insulin Human Regular 100 unit 100 mls @ 14.987 mls/hr 04/22/22 08:31 04/23/22 08:00 / Sodium Chloride IV 05/22/22 08:30 0 unit/kg/hr .Q6H41M PRN 0 mls/hr DKA/HYPERGLYCEMIA Titration Protocol 0.2 UNIT/KG/HR Sodium Chloride Confirm 04/22/22 08:49 Sodium Chloride 0.9% 1000 Ml Administered 04/22/22 08:50 Dose 1,000 mls @ ud .ROUTE .STK-MED ONE Potassium Chloride/Sodium Chloride 1,000 mls @ 150 mls/hr 04/22/22 10:15 0 04/22/22 12:07 Sodium Chloride 0.9% W/ 20 Meq Kcl/Liter IV 05/22/22 10:14 Not Given .Q6H40M XIN Ceftriaxone Sodium/Dextrose 1 g in 50 mls @ 100 mls/hr 04/22/22 13:00 04/23/22 07:33 Rocephin 1 Gm-D5w 50 Ml Bag IV 04/25/22 12:59 100 mls/hr Q24H10 XIN Administration Potassium Chloride/Dextrose/Sod Cl 1,000 mls @ 150 mls/hr 04/22/22 12:30 04/23/22 08:32 Dextrose 5% -Nacl 0.9% 1000 Ml + Kcl 20 Meq IV 05/22/22 12:29 Not Given .Q6H40M XIN Promethazine HCl 12.5 mg/ 100.5 mls @ 201 mls/hr 04/22/22 13:47 04/22/22 13:59 Sodium Chloride IV 05/22/22 13:46 201 mls/hr Q4H PRN PRN Administration UNCONTROLLED NAUSEA Insulin Human Lispro 0 unit 04/23/22 08:30 04/23/22 08:28 Insulin Lispro 1 Unit SQ 05/23/22 08:29 15 unit TIDWM XIN Administration Lisinopril 10 mg 04/23/22 12:00 Lisinopril 10 Mg Tablet PO 05/23/22 11:59 DAILY XIN Morphine Sulfate 2 mg 04/22/22 10:11 04/22/22 16:41 Morphine Sulfate 2 Mg/Ml Inj IV 04/27/22 10:10 2 mg Q4H PRN PRN Administration PAIN Ondansetron HCl Confirm 04/22/22 08:50 Ondansetron Hcl 4 Mg/2 Ml Vial Administered 04/22/22 08:51 Dose 4 mg .ROUTE .STK-MED ONE Ondansetron HCl 4 mg 04/22/22 08:52 04/22/22 08:53 Ondansetron Hcl 4 Mg/2 Ml Vial IV 04/22/22 08:53 4 mg STAT ONE Administration Ondansetron HCl 4 mg 04/22/22 10:11 04/22/22 22:08 Ondansetron Hcl 4 Mg/2 Ml Vial IV 05/22/22 10:10 4 mg Q6H PRN PRN Administration NAUSEA/VOMITING Pantoprazole Sodium 40 mg 04/22/22 14:00 04/23/22 07:32 Pantoprazole 40 Mg Vial IV 05/22/22 13:59 40 mg Q24H10 XIN Administration Intake & Output (Last 24 hours) 04/21/22 04/22/22 04/23/22 04/24/22 11:59 11:59 11:59 11:59 Intake Total 3097 Output Total 2400 Balance 697 Weight 73.7 kg 79.6 kg Microbiology Results (Last 24 hours) 04/22/22 13:03 Urine, Void Urine Culture - Pending Laboratory Results (Last 24 hours) 04/23/22 04/23/22 04/23/22 11:03 07:02 06:05 WBC RBC Hgb Hct MCV MCH MCHC RDW Plt Count MPV Gran % Immature Gran % (Auto) Nucleat RBC Rel Count Eos # (Auto) Immature Gran # (Auto) Absolute Lymphs (auto) Absolute Monos (auto) Absolute Nucleated RBC Lymphocytes % Monocytes % Eosinophils % Basophils % Absolute Granulocytes Basophils # Sodium Potassium Chloride Carbon Dioxide Anion Gap BUN Creatinine Estimated GFR Glucose POC Glucometer 196 H 124 H 105 Lactic Acid Calcium Magnesium Total Bilirubin AST ALT Alkaline Phosphatase Serum Total Protein Albumin Urinalys Dipstick Clnc Urine Color Urine Appearance Urine pH Ur Specific [place] POC Urine Protein Conf Urine Ketones Urine Nitrite Urine Bilirubin Urine Urobilinogen Urine Leukocytes Urine WBC (Auto) Urine RBC (Auto) U Hyaline Cast (Auto) U Epithel Cells (Auto) Urine Bacteria (Auto) Urine RBC Granular Casts (Auto) Ur Culture Indicated? Urine Glucose 04/23/22 04/23/22 04/23/22 05:33 05:32 05:32 WBC RBC Hgb Hct MCV MCH MCHC RDW Plt Count MPV Gran % Immature Gran % (Auto) Nucleat RBC Rel Count Eos # (Auto) Immature Gran # (Auto) Absolute Lymphs (auto) Absolute Monos (auto) Absolute Nucleated RBC Lymphocytes % Monocytes % Eosinophils % Basophils % Absolute Granulocytes Basophils # Sodium 136 L Potassium 3.9 Chloride 102 Carbon Dioxide 28 Anion Gap 10.2 BUN 32 H Creatinine 2.25 H Estimated GFR 35.3 Glucose 121 H POC Glucometer Lactic Acid 2.3 H Calcium 8.1 L Magnesium 1.7 Total Bilirubin 0.40 AST 27 ALT 19 Alkaline Phosphatase 134 H Serum Total Protein 6.9 Albumin 3.6 Urinalys Dipstick Clnc Urine Color Urine Appearance Urine pH Ur Specific [place] POC Urine Protein Conf Urine Ketones Urine Nitrite Urine Bilirubin Urine Urobilinogen Urine Leukocytes Urine WBC (Auto) Urine RBC (Auto) U Hyaline Cast (Auto) U Epithel Cells (Auto) Urine Bacteria (Auto) Urine RBC Granular Casts (Auto) Ur Culture Indicated? Urine Glucose 04/23/22 04/23/22 04/23/22 05:32 05:03 03:59 WBC 12.8 H RBC 3.54 L Hgb 10.3 L Hct 31.7 L MCV 89.5 MCH 29.1 MCHC 32.5 RDW 12.6 Plt Count 374 MPV 8.3 Gran % 79.1 H Immature Gran % (Auto) 0.3 Nucleat RBC Rel Count 0.0 Eos # (Auto) 0.21 Immature Gran # (Auto) 0.04 H Absolute Lymphs (auto) 0.92 L Absolute Monos (auto) 1.46 H Absolute Nucleated RBC 0.00 Lymphocytes % 7.2 L Monocytes % 11.4 Eosinophils % 1.6 Basophils % 0.4 Absolute Granulocytes 10.09 H Basophils # 0.05 Sodium Potassium Chloride Carbon Dioxide Anion Gap BUN Creatinine Estimated GFR Glucose POC Glucometer 109 H 144 H Lactic Acid Calcium Magnesium Total Bilirubin AST ALT Alkaline Phosphatase Serum Total Protein Albumin Urinalys Dipstick Clnc Urine Color Urine Appearance Urine pH Ur Specific [place] POC Urine Protein Conf Urine Ketones Urine Nitrite Urine Bilirubin Urine Urobilinogen Urine Leukocytes Urine WBC (Auto) Urine RBC (Auto) U Hyaline Cast (Auto) U Epithel Cells (Auto) Urine Bacteria (Auto) Urine RBC Granular Casts (Auto) Ur Culture Indicated? Urine Glucose 04/23/22 04/23/22 04/23/22 03:04 01:59 01:01 WBC RBC Hgb Hct MCV MCH MCHC RDW Plt Count MPV Gran % Immature Gran % (Auto) Nucleat RBC Rel Count Eos # (Auto) Immature Gran # (Auto) Absolute Lymphs (auto) Absolute Monos (auto) Absolute Nucleated RBC Lymphocytes % Monocytes % Eosinophils % Basophils % Absolute Granulocytes Basophils # Sodium Potassium Chloride Carbon Dioxide Anion Gap BUN Creatinine Estimated GFR Glucose POC Glucometer 170 H 150 H 171 H Lactic Acid Calcium Magnesium Total Bilirubin AST ALT Alkaline Phosphatase Serum Total Protein Albumin Urinalys Dipstick Clnc Urine Color Urine Appearance Urine pH Ur Specific [place] POC Urine Protein Conf Urine Ketones Urine Nitrite Urine Bilirubin Urine Urobilinogen Urine Leukocytes Urine WBC (Auto) Urine RBC (Auto) U Hyaline Cast (Auto) U Epithel Cells (Auto) Urine Bacteria (Auto) Urine RBC Granular Casts (Auto) Ur Culture Indicated? Urine Glucose 04/23/22 04/22/22 04/22/22 00:01 23:03 22:07 WBC RBC Hgb Hct MCV MCH MCHC RDW Plt Count MPV Gran % Immature Gran % (Auto) Nucleat RBC Rel Count Eos # (Auto) Immature Gran # (Auto) Absolute Lymphs (auto) Absolute Monos (auto) Absolute Nucleated RBC Lymphocytes % Monocytes % Eosinophils % Basophils % Absolute Granulocytes Basophils # Sodium Potassium Chloride Carbon Dioxide Anion Gap BUN Creatinine Estimated GFR Glucose POC Glucometer 160 H 167 H 164 H Lactic Acid Calcium Magnesium Total Bilirubin AST ALT Alkaline Phosphatase Serum Total Protein Albumin Urinalys Dipstick Clnc Urine Color Urine Appearance Urine pH Ur Specific [place] POC Urine Protein Conf Urine Ketones Urine Nitrite Urine Bilirubin Urine Urobilinogen Urine Leukocytes Urine WBC (Auto) Urine RBC (Auto) U Hyaline Cast (Auto) U Epithel Cells (Auto) Urine Bacteria (Auto) Urine RBC Granular Casts (Auto) Ur Culture Indicated? Urine Glucose 04/22/22 04/22/22 04/22/22 21:02 20:02 18:52 WBC RBC Hgb Hct MCV MCH MCHC RDW Plt Count MPV Gran % Immature Gran % (Auto) Nucleat RBC Rel Count Eos # (Auto) Immature Gran # (Auto) Absolute Lymphs (auto) Absolute Monos (auto) Absolute Nucleated RBC Lymphocytes % Monocytes % Eosinophils % Basophils % Absolute Granulocytes Basophils # Sodium Potassium Chloride Carbon Dioxide Anion Gap BUN Creatinine Estimated GFR Glucose POC Glucometer 142 H 115 H 110 H Lactic Acid Calcium Magnesium Total Bilirubin AST ALT Alkaline Phosphatase Serum Total Protein Albumin Urinalys Dipstick Clnc Urine Color Urine Appearance Urine pH Ur Specific [place] POC Urine Protein Conf Urine Ketones Urine Nitrite Urine Bilirubin Urine Urobilinogen Urine Leukocytes Urine WBC (Auto) Urine RBC (Auto) U Hyaline Cast (Auto) U Epithel Cells (Auto) Urine Bacteria (Auto) Urine RBC Granular Casts (Auto) Ur Culture Indicated? Urine Glucose 04/22/22 04/22/22 04/22/22 17:53 16:50 16:00 WBC RBC Hgb Hct MCV MCH MCHC RDW Plt Count MPV Gran % Immature Gran % (Auto) Nucleat RBC Rel Count Eos # (Auto) Immature Gran # (Auto) Absolute Lymphs (auto) Absolute Monos (auto) Absolute Nucleated RBC Lymphocytes % Monocytes % Eosinophils % Basophils % Absolute Granulocytes Basophils # Sodium Potassium Chloride Carbon Dioxide Anion Gap BUN Creatinine Estimated GFR Glucose POC Glucometer 153 H 227 H 295 H Lactic Acid Calcium Magnesium Total Bilirubin AST ALT Alkaline Phosphatase Serum Total Protein Albumin Urinalys Dipstick Clnc Urine Color Urine Appearance Urine pH Ur Specific [place] POC Urine Protein Conf Urine Ketones Urine Nitrite Urine Bilirubin Urine Urobilinogen Urine Leukocytes Urine WBC (Auto) Urine RBC (Auto) U Hyaline Cast (Auto) U Epithel Cells (Auto) Urine Bacteria (Auto) Urine RBC Granular Casts (Auto) Ur Culture Indicated? Urine Glucose 04/22/22 04/22/22 14:00 13:03 WBC RBC Hgb Hct MCV MCH MCHC RDW Plt Count MPV Gran % Immature Gran % (Auto) Nucleat RBC Rel Count Eos # (Auto) Immature Gran # (Auto) Absolute Lymphs (auto) Absolute Monos (auto) Absolute Nucleated RBC Lymphocytes % Monocytes % Eosinophils % Basophils % Absolute Granulocytes Basophils # Sodium 136 L Potassium 4.4 Chloride 98 Carbon Dioxide 25 Anion Gap 18.0 H BUN 45 H Creatinine 2.39 H Estimated GFR 32.9 Glucose 261 H POC Glucometer Lactic Acid Calcium 8.9 Magnesium Total Bilirubin AST ALT Alkaline Phosphatase Serum Total Protein Albumin Urinalys Dipstick Clnc MAIN LAB Urine Color YELLOW Urine Appearance CLEAR Urine pH 7.5 Ur Specific [place] >=1.030 POC Urine Protein Conf >=300 Urine Ketones MODERATE-40 Urine Nitrite POSITIVE Urine Bilirubin SMALL Urine Urobilinogen >=8.0 Urine Leukocytes SMALL Urine WBC (Auto) NONE Urine RBC (Auto) 6-10 U Hyaline Cast (Auto) 0-2 U Epithel Cells (Auto) NONE Urine Bacteria (Auto) FEW Urine RBC MODERATE Granular Casts (Auto) 5-10 Ur Culture Indicated? YES Urine Glucose >=1000 Orders (Last 24 hours) Category Date Time Status Consistent Carbohydrate Diet 1800 Calorie Diet 04/22/22 Dinner Completed Discharge Routine Discharge 04/23/22 Ordered BMP Stat Lab 04/22/22 14:00 Completed CBC W DIFF AM.LAB Lab 04/23/22 05:32 Results CMP AM.LAB Lab 04/23/22 05:32 Completed CULTURE,URINE Stat Lab 04/22/22 13:03 Received HEMOGLOBIN A1C Urgent Lab 04/23/22 05:32 Received Lactic Acid AM.LAB Lab 04/23/22 05:33 Completed MAG [MAGNESIUM] AM.LAB Lab 04/23/22 05:32 Completed POCT GLUCOSE Stat Lab 04/22/22 12:03 Completed POCT GLUCOSE Stat Lab 04/22/22 16:00 Completed POCT GLUCOSE Stat Lab 04/22/22 16:50 Completed POCT GLUCOSE Stat Lab 04/22/22 17:53 Completed POCT GLUCOSE Stat Lab 04/22/22 18:52 Completed POCT GLUCOSE Stat Lab 04/22/22 20:02 Completed POCT GLUCOSE Stat Lab 04/22/22 21:02 Completed POCT GLUCOSE Stat Lab 04/22/22 22:07 Completed POCT GLUCOSE Stat Lab 04/22/22 23:03 Completed POCT GLUCOSE Stat Lab 04/23/22 00:01 Completed POCT GLUCOSE Stat Lab 04/23/22 01:01 Completed POCT GLUCOSE Stat Lab 04/23/22 01:59 Completed POCT GLUCOSE Stat Lab 04/23/22 03:04 Completed POCT GLUCOSE Stat Lab 04/23/22 03:59 Completed POCT GLUCOSE Stat Lab 04/23/22 05:03 Completed POCT GLUCOSE Stat Lab 04/23/22 06:05 Completed POCT GLUCOSE Stat Lab 04/23/22 07:02 Completed POCT GLUCOSE Stat Lab 04/23/22 11:03 Completed UA W/RFX CULTURE Stat Lab 04/22/22 13:03 Completed Ceftriaxone 1 GM/50 ML PREMIX* [ROCEPHIN 1 Gm-D5w 50 ml Med 04/22/22 13:00 Discontinued Bag] 1 g in 50 ml IV Q24H10 D5ns 1000 ml + KCl 20 Meq [DEXTROSE 5% -NACL 0.9% 1000 Med 04/22/22 12:30 Discontinued ML + KCl 20 MEQ] 1,000 ml IV 150 mls/hr Famotidine 20 mg Vial [Pepcid 20 MG VIAL] Med 04/22/22 22:00 Discontinued 20 mg IV Q12HT Insulin Lispro [Humalog] Med 04/23/22 08:30 Discontinued 0 unit SQ TIDWM Lisinopril 10 mg [Zestril 10 MG] Med 04/23/22 12:00 Discontinued 10 mg PO DAILY Pantoprazole 40 mg [Protonix 40 mg IV] Med 04/22/22 14:00 Discontinued 40 mg IV Q24H10 Promethazine HCl 25 mg Amp [Phenergan 25 MG INJ] Med 04/22/22 13:47 Discontinued 12.5 mg NaCl 0.9% [Sodium Chloride 0.9%] 100 ml IV Q4H PRN Patient Care Notes (Last 24 hours) 04/23/22 08:04 Nursing Note by Chelsey Sim am labs noted, insulin drip off. Initialized on 04/23/22 08:04 - END OF NOTE 04/22/22 22:14 Nursing Note by Magaly John Patient had chewing tobacco at bedside. This nurse found emesis bag with emesis, clear and tobacco. Education provided to patient to not use tobacco product, and at this time will make nausea and vomiting worse. Patient did not provide any acknowledgement to education. Initialized on 04/22/22 22:14 - END OF NOTE 04/22/22 19:55 Nursing Note by Magaly John Spoke with Dr. Sifuentes to clarify labs to be drawn. CBC, CMP, and Mag in the AM. Initialized on 04/22/22 19:55 - END OF NOTE 04/22/22 14:54 Nursing Note by Chelsey Sim labs noted, insulin drip resumed @ 5units/hr or 5cc/hr. Initialized on 04/22/22 14:54 - END OF NOTE - Vitals & Intake/Output Vital Signs: Vital Signs Temperature 97.3 F 04/23/22 07:00 Pulse Rate 97 H 04/23/22 07:05 Respiratory Rate 18 04/23/22 07:00 Blood Pressure 183/112 04/23/22 07:00 O2 Sat by Pulse Oximetry 99 04/23/22 07:00 Intake & Output: Intake & Output 04/21/22 04/22/22 04/23/22 04/24/22 11:59 11:59 11:59 11:59 Intake Total 3097 Output Total 2400 Balance 697 Weight 73.7 kg 79.6 kg - Lab Result Diagrams: 04/23/22 05:32 04/23/22 05:32 Lab Results-Last 24 Hrs: Lab Results-Last 24 Hours 04/22/22 04/22/22 04/22/22 Range/Units 13:03 14:00 16:00 WBC (4.0-10.5) x10^3/uL RBC (4.1-5.6) x10^6/uL Hgb (12.5-18.0) g/dL Hct (42-50) % MCV (78-100) fL MCH (26-32) pg MCHC (32-36) g/dL RDW (11.5-14.0) % Plt Count (150-450) x10^3/uL MPV (7.5-11.0) fL Gran % (36.0-66.0) % Immature Gran % (Auto) (0.00-0.4) % Nucleat RBC Rel Count (0.00-0.1) % Eos # (Auto) (0-0.5) x10^3/uL Immature Gran # (Auto) (0.00-0.03) x10^3u/L Absolute Lymphs (auto) (1.0-4.6) x10^3/uL Absolute Monos (auto) (0.0-1.3) x10^3/uL Absolute Nucleated RBC (0.00-0.01) x10^3u/L Lymphocytes % (24.0-44.0) % Monocytes % (0.0-12.0) % Eosinophils % (0.00-5.0) % Basophils % (0.0-0.4) % Absolute Granulocytes (1.4-6.9) x10^3/uL Basophils # (0-0.4) x10^3/uL Sodium 136 L (137-145) mmol/L Potassium 4.4 (3.5-5.1) mmol/L Chloride 98 (98-107) mmol/L Carbon Dioxide 25 (22-30) mmol/L Anion Gap 18.0 H (5-15) MEQ/L BUN 45 H (9-20) mg/dL Creatinine 2.39 H (0.66-1.25) mg/dL Estimated GFR 32.9 ML/MIN Glucose 261 H (74-106) mg/dL POC Glucometer 295 H (74 to 106) mg/dL Lactic Acid (0.4-2.0) Calcium 8.9 (8.4-10.2) mg/dL Magnesium (1.6-2.3) mg/dL Total Bilirubin (0.2-1.3) mg/dL AST (17-59) U/L ALT (0-50) U/L Alkaline Phosphatase (38-126) U/L Serum Total Protein (6.3-8.2) g/dL Albumin (3.5-5.0) g/dL Urinalys Dipstick Clnc MAIN LAB Urine Color YELLOW (YELLOW) Urine Appearance CLEAR (CLEAR) Urine pH 7.5 (5-6) Ur Specific [place] >=1.030 (1.005-1.025) POC Urine Protein Conf >=300 (Negative) Urine Ketones MODERATE-40 (NEGATIVE) Urine Nitrite POSITIVE (NEGATIVE) Urine Bilirubin SMALL (NEGATIVE) Urine Urobilinogen >=8.0 (0-1) mg/dL Urine Leukocytes SMALL (NEGATIVE) Urine WBC (Auto) NONE (0-5) /HPF Urine RBC (Auto) 6-10 (0-2) /HPF U Hyaline Cast (Auto) 0-2 (0-2) /LPF U Epithel Cells (Auto) NONE (FEW) /HPF Urine Bacteria (Auto) FEW (NEGATIVE) /HPF Urine RBC MODERATE (0-5) Tomas/ul Granular Casts (Auto) 5-10 (NEGATIVE) /LPF Ur Culture Indicated? YES Urine Glucose >=1000 (NEGATIVE) mg/dL 04/22/22 04/22/22 04/22/22 Range/Units 16:50 17:53 18:52 WBC (4.0-10.5) x10^3/uL RBC (4.1-5.6) x10^6/uL Hgb (12.5-18.0) g/dL Hct (42-50) % MCV (78-100) fL MCH (26-32) pg MCHC (32-36) g/dL RDW (11.5-14.0) % Plt Count (150-450) x10^3/uL MPV (7.5-11.0) fL Gran % (36.0-66.0) % Immature Gran % (Auto) (0.00-0.4) % Nucleat RBC Rel Count (0.00-0.1) % Eos # (Auto) (0-0.5) x10^3/uL Immature Gran # (Auto) (0.00-0.03) x10^3u/L Absolute Lymphs (auto) (1.0-4.6) x10^3/uL Absolute Monos (auto) (0.0-1.3) x10^3/uL Absolute Nucleated RBC (0.00-0.01) x10^3u/L Lymphocytes % (24.0-44.0) % Monocytes % (0.0-12.0) % Eosinophils % (0.00-5.0) % Basophils % (0.0-0.4) % Absolute Granulocytes (1.4-6.9) x10^3/uL Basophils # (0-0.4) x10^3/uL Sodium (137-145) mmol/L Potassium (3.5-5.1) mmol/L Chloride (98-107) mmol/L Carbon Dioxide (22-30) mmol/L Anion Gap (5-15) MEQ/L BUN (9-20) mg/dL Creatinine (0.66-1.25) mg/dL Estimated GFR ML/MIN Glucose (74-106) mg/dL POC Glucometer 227 H 153 H 110 H (74 to 106) mg/dL Lactic Acid (0.4-2.0) Calcium (8.4-10.2) mg/dL Magnesium (1.6-2.3) mg/dL Total Bilirubin (0.2-1.3) mg/dL AST (17-59) U/L ALT (0-50) U/L Alkaline Phosphatase (38-126) U/L Serum Total Protein (6.3-8.2) g/dL Albumin (3.5-5.0) g/dL Urinalys Dipstick Clnc Urine Color (YELLOW) Urine Appearance (CLEAR) Urine pH (5-6) Ur Specific [place] (1.005-1.025) POC Urine Protein Conf (Negative) Urine Ketones (NEGATIVE) Urine Nitrite (NEGATIVE) Urine Bilirubin (NEGATIVE) Urine Urobilinogen (0-1) mg/dL Urine Leukocytes (NEGATIVE) Urine WBC (Auto) (0-5) /HPF Urine RBC (Auto) (0-2) /HPF U Hyaline Cast (Auto) (0-2) /LPF U Epithel Cells (Auto) (FEW) /HPF Urine Bacteria (Auto) (NEGATIVE) /HPF Urine RBC (0-5) Tomas/ul Granular Casts (Auto) (NEGATIVE) /LPF Ur Culture Indicated? Urine Glucose (NEGATIVE) mg/dL 04/22/22 04/22/22 04/22/22 Range/Units 20:02 21:02 22:07 WBC (4.0-10.5) x10^3/uL RBC (4.1-5.6) x10^6/uL Hgb (12.5-18.0) g/dL Hct (42-50) % MCV (78-100) fL MCH (26-32) pg MCHC (32-36) g/dL RDW (11.5-14.0) % Plt Count (150-450) x10^3/uL MPV (7.5-11.0) fL Gran % (36.0-66.0) % Immature Gran % (Auto) (0.00-0.4) % Nucleat RBC Rel Count (0.00-0.1) % Eos # (Auto) (0-0.5) x10^3/uL Immature Gran # (Auto) (0.00-0.03) x10^3u/L Absolute Lymphs (auto) (1.0-4.6) x10^3/uL Absolute Monos (auto) (0.0-1.3) x10^3/uL Absolute Nucleated RBC (0.00-0.01) x10^3u/L Lymphocytes % (24.0-44.0) % Monocytes % (0.0-12.0) % Eosinophils % (0.00-5.0) % Basophils % (0.0-0.4) % Absolute Granulocytes (1.4-6.9) x10^3/uL Basophils # (0-0.4) x10^3/uL Sodium (137-145) mmol/L Potassium (3.5-5.1) mmol/L Chloride (98-107) mmol/L Carbon Dioxide (22-30) mmol/L Anion Gap (5-15) MEQ/L BUN (9-20) mg/dL Creatinine (0.66-1.25) mg/dL Estimated GFR ML/MIN Glucose (74-106) mg/dL POC Glucometer 115 H 142 H 164 H (74 to 106) mg/dL Lactic Acid (0.4-2.0) Calcium (8.4-10.2) mg/dL Magnesium (1.6-2.3) mg/dL Total Bilirubin (0.2-1.3) mg/dL AST (17-59) U/L ALT (0-50) U/L Alkaline Phosphatase (38-126) U/L Serum Total Protein (6.3-8.2) g/dL Albumin (3.5-5.0) g/dL Urinalys Dipstick Clnc Urine Color (YELLOW) Urine Appearance (CLEAR) Urine pH (5-6) Ur Specific [place] (1.005-1.025) POC Urine Protein Conf (Negative) Urine Ketones (NEGATIVE) Urine Nitrite (NEGATIVE) Urine Bilirubin (NEGATIVE) Urine Urobilinogen (0-1) mg/dL Urine Leukocytes (NEGATIVE) Urine WBC (Auto) (0-5) /HPF Urine RBC (Auto) (0-2) /HPF U Hyaline Cast (Auto) (0-2) /LPF U Epithel Cells (Auto) (FEW) /HPF Urine Bacteria (Auto) (NEGATIVE) /HPF Urine RBC (0-5) Tomas/ul Granular Casts (Auto) (NEGATIVE) /LPF Ur Culture Indicated? Urine Glucose (NEGATIVE) mg/dL 04/22/22 04/23/22 04/23/22 Range/Units 23:03 00:01 01:01 WBC (4.0-10.5) x10^3/uL RBC (4.1-5.6) x10^6/uL Hgb (12.5-18.0) g/dL Hct (42-50) % MCV (78-100) fL MCH (26-32) pg MCHC (32-36) g/dL RDW (11.5-14.0) % Plt Count (150-450) x10^3/uL MPV (7.5-11.0) fL Gran % (36.0-66.0) % Immature Gran % (Auto) (0.00-0.4) % Nucleat RBC Rel Count (0.00-0.1) % Eos # (Auto) (0-0.5) x10^3/uL Immature Gran # (Auto) (0.00-0.03) x10^3u/L Absolute Lymphs (auto) (1.0-4.6) x10^3/uL Absolute Monos (auto) (0.0-1.3) x10^3/uL Absolute Nucleated RBC (0.00-0.01) x10^3u/L Lymphocytes % (24.0-44.0) % Monocytes % (0.0-12.0) % Eosinophils % (0.00-5.0) % Basophils % (0.0-0.4) % Absolute Granulocytes (1.4-6.9) x10^3/uL Basophils # (0-0.4) x10^3/uL Sodium (137-145) mmol/L Potassium (3.5-5.1) mmol/L Chloride (98-107) mmol/L Carbon Dioxide (22-30) mmol/L Anion Gap (5-15) MEQ/L BUN (9-20) mg/dL Creatinine (0.66-1.25) mg/dL Estimated GFR ML/MIN Glucose (74-106) mg/dL POC Glucometer 167 H 160 H 171 H (74 to 106) mg/dL Lactic Acid (0.4-2.0) Calcium (8.4-10.2) mg/dL Magnesium (1.6-2.3) mg/dL Total Bilirubin (0.2-1.3) mg/dL AST (17-59) U/L ALT (0-50) U/L Alkaline Phosphatase (38-126) U/L Serum Total Protein (6.3-8.2) g/dL Albumin (3.5-5.0) g/dL Urinalys Dipstick Clnc Urine Color (YELLOW) Urine Appearance (CLEAR) Urine pH (5-6) Ur Specific [place] (1.005-1.025) POC Urine Protein Conf (Negative) Urine Ketones (NEGATIVE) Urine Nitrite (NEGATIVE) Urine Bilirubin (NEGATIVE) Urine Urobilinogen (0-1) mg/dL Urine Leukocytes (NEGATIVE) Urine WBC (Auto) (0-5) /HPF Urine RBC (Auto) (0-2) /HPF U Hyaline Cast (Auto) (0-2) /LPF U Epithel Cells (Auto) (FEW) /HPF Urine Bacteria (Auto) (NEGATIVE) /HPF Urine RBC (0-5) Tomas/ul Granular Casts (Auto) (NEGATIVE) /LPF Ur Culture Indicated? Urine Glucose (NEGATIVE) mg/dL 04/23/22 04/23/22 04/23/22 Range/Units 01:59 03:04 03:59 WBC (4.0-10.5) x10^3/uL RBC (4.1-5.6) x10^6/uL Hgb (12.5-18.0) g/dL Hct (42-50) % MCV (78-100) fL MCH (26-32) pg MCHC (32-36) g/dL RDW (11.5-14.0) % Plt Count (150-450) x10^3/uL MPV (7.5-11.0) fL Gran % (36.0-66.0) % Immature Gran % (Auto) (0.00-0.4) % Nucleat RBC Rel Count (0.00-0.1) % Eos # (Auto) (0-0.5) x10^3/uL Immature Gran # (Auto) (0.00-0.03) x10^3u/L Absolute Lymphs (auto) (1.0-4.6) x10^3/uL Absolute Monos (auto) (0.0-1.3) x10^3/uL Absolute Nucleated RBC (0.00-0.01) x10^3u/L Lymphocytes % (24.0-44.0) % Monocytes % (0.0-12.0) % Eosinophils % (0.00-5.0) % Basophils % (0.0-0.4) % Absolute Granulocytes (1.4-6.9) x10^3/uL Basophils # (0-0.4) x10^3/uL Sodium (137-145) mmol/L Potassium (3.5-5.1) mmol/L Chloride (98-107) mmol/L Carbon Dioxide (22-30) mmol/L Anion Gap (5-15) MEQ/L BUN (9-20) mg/dL Creatinine (0.66-1.25) mg/dL Estimated GFR ML/MIN Glucose (74-106) mg/dL POC Glucometer 150 H 170 H 144 H (74 to 106) mg/dL Lactic Acid (0.4-2.0) Calcium (8.4-10.2) mg/dL Magnesium (1.6-2.3) mg/dL Total Bilirubin (0.2-1.3) mg/dL AST (17-59) U/L ALT (0-50) U/L Alkaline Phosphatase (38-126) U/L Serum Total Protein (6.3-8.2) g/dL Albumin (3.5-5.0) g/dL Urinalys Dipstick Clnc Urine Color (YELLOW) Urine Appearance (CLEAR) Urine pH (5-6) Ur Specific [place] (1.005-1.025) POC Urine Protein Conf (Negative) Urine Ketones (NEGATIVE) Urine Nitrite (NEGATIVE) Urine Bilirubin (NEGATIVE) Urine Urobilinogen (0-1) mg/dL Urine Leukocytes (NEGATIVE) Urine WBC (Auto) (0-5) /HPF Urine RBC (Auto) (0-2) /HPF U Hyaline Cast (Auto) (0-2) /LPF U Epithel Cells (Auto) (FEW) /HPF Urine Bacteria (Auto) (NEGATIVE) /HPF Urine RBC (0-5) Tomas/ul Granular Casts (Auto) (NEGATIVE) /LPF Ur Culture Indicated? Urine Glucose (NEGATIVE) mg/dL 04/23/22 04/23/22 04/23/22 Range/Units 05:03 05:32 05:32 WBC 12.8 H (4.0-10.5) x10^3/uL RBC 3.54 L (4.1-5.6) x10^6/uL Hgb 10.3 L (12.5-18.0) g/dL Hct 31.7 L (42-50) % MCV 89.5 (78-100) fL MCH 29.1 (26-32) pg MCHC 32.5 (32-36) g/dL RDW 12.6 (11.5-14.0) % Plt Count 374 (150-450) x10^3/uL MPV 8.3 (7.5-11.0) fL Gran % 79.1 H (36.0-66.0) % Immature Gran % (Auto) 0.3 (0.00-0.4) % Nucleat RBC Rel Count 0.0 (0.00-0.1) % Eos # (Auto) 0.21 (0-0.5) x10^3/uL Immature Gran # (Auto) 0.04 H (0.00-0.03) x10^3u/L Absolute Lymphs (auto) 0.92 L (1.0-4.6) x10^3/uL Absolute Monos (auto) 1.46 H (0.0-1.3) x10^3/uL Absolute Nucleated RBC 0.00 (0.00-0.01) x10^3u/L Lymphocytes % 7.2 L (24.0-44.0) % Monocytes % 11.4 (0.0-12.0) % Eosinophils % 1.6 (0.00-5.0) % Basophils % 0.4 (0.0-0.4) % Absolute Granulocytes 10.09 H (1.4-6.9) x10^3/uL Basophils # 0.05 (0-0.4) x10^3/uL Sodium 136 L (137-145) mmol/L Potassium 3.9 (3.5-5.1) mmol/L Chloride 102 (98-107) mmol/L Carbon Dioxide 28 (22-30) mmol/L Anion Gap 10.2 (5-15) MEQ/L BUN 32 H (9-20) mg/dL Creatinine 2.25 H (0.66-1.25) mg/dL Estimated GFR 35.3 ML/MIN Glucose 121 H (74-106) mg/dL POC Glucometer 109 H (74 to 106) mg/dL Lactic Acid (0.4-2.0) Calcium 8.1 L (8.4-10.2) mg/dL Magnesium (1.6-2.3) mg/dL Total Bilirubin 0.40 (0.2-1.3) mg/dL AST 27 (17-59) U/L ALT 19 (0-50) U/L Alkaline Phosphatase 134 H (38-126) U/L Serum Total Protein 6.9 (6.3-8.2) g/dL Albumin 3.6 (3.5-5.0) g/dL Urinalys Dipstick Clnc Urine Color (YELLOW) Urine Appearance (CLEAR) Urine pH (5-6) Ur Specific [place] (1.005-1.025) POC Urine Protein Conf (Negative) Urine Ketones (NEGATIVE) Urine Nitrite (NEGATIVE) Urine Bilirubin (NEGATIVE) Urine Urobilinogen (0-1) mg/dL Urine Leukocytes (NEGATIVE) Urine WBC (Auto) (0-5) /HPF Urine RBC (Auto) (0-2) /HPF U Hyaline Cast (Auto) (0-2) /LPF U Epithel Cells (Auto) (FEW) /HPF Urine Bacteria (Auto) (NEGATIVE) /HPF Urine RBC (0-5) Tomas/ul Granular Casts (Auto) (NEGATIVE) /LPF Ur Culture Indicated? Urine Glucose (NEGATIVE) mg/dL 04/23/22 04/23/22 04/23/22 Range/Units 05:32 05:33 06:05 WBC (4.0-10.5) x10^3/uL RBC (4.1-5.6) x10^6/uL Hgb (12.5-18.0) g/dL Hct (42-50) % MCV (78-100) fL MCH (26-32) pg MCHC (32-36) g/dL RDW (11.5-14.0) % Plt Count (150-450) x10^3/uL MPV (7.5-11.0) fL Gran % (36.0-66.0) % Immature Gran % (Auto) (0.00-0.4) % Nucleat RBC Rel Count (0.00-0.1) % Eos # (Auto) (0-0.5) x10^3/uL Immature Gran # (Auto) (0.00-0.03) x10^3u/L Absolute Lymphs (auto) (1.0-4.6) x10^3/uL Absolute Monos (auto) (0.0-1.3) x10^3/uL Absolute Nucleated RBC (0.00-0.01) x10^3u/L Lymphocytes % (24.0-44.0) % Monocytes % (0.0-12.0) % Eosinophils % (0.00-5.0) % Basophils % (0.0-0.4) % Absolute Granulocytes (1.4-6.9) x10^3/uL Basophils # (0-0.4) x10^3/uL Sodium (137-145) mmol/L Potassium (3.5-5.1) mmol/L Chloride (98-107) mmol/L Carbon Dioxide (22-30) mmol/L Anion Gap (5-15) MEQ/L BUN (9-20) mg/dL Creatinine (0.66-1.25) mg/dL Estimated GFR ML/MIN Glucose (74-106) mg/dL POC Glucometer 105 (74 to 106) mg/dL Lactic Acid 2.3 H (0.4-2.0) Calcium (8.4-10.2) mg/dL Magnesium 1.7 (1.6-2.3) mg/dL Total Bilirubin (0.2-1.3) mg/dL AST (17-59) U/L ALT (0-50) U/L Alkaline Phosphatase (38-126) U/L Serum Total Protein (6.3-8.2) g/dL Albumin (3.5-5.0) g/dL Urinalys Dipstick Clnc Urine Color (YELLOW) Urine Appearance (CLEAR) Urine pH (5-6) Ur Specific [place] (1.005-1.025) POC Urine Protein Conf (Negative) Urine Ketones (NEGATIVE) Urine Nitrite (NEGATIVE) Urine Bilirubin (NEGATIVE) Urine Urobilinogen (0-1) mg/dL Urine Leukocytes (NEGATIVE) Urine WBC (Auto) (0-5) /HPF Urine RBC (Auto) (0-2) /HPF U Hyaline Cast (Auto) (0-2) /LPF U Epithel Cells (Auto) (FEW) /HPF Urine Bacteria (Auto) (NEGATIVE) /HPF Urine RBC (0-5) Tomas/ul Granular Casts (Auto) (NEGATIVE) /LPF Ur Culture Indicated? Urine Glucose (NEGATIVE) mg/dL 04/23/22 04/23/22 Range/Units 07:02 11:03 WBC (4.0-10.5) x10^3/uL RBC (4.1-5.6) x10^6/uL Hgb (12.5-18.0) g/dL Hct (42-50) % MCV (78-100) fL MCH (26-32) pg MCHC (32-36) g/dL RDW (11.5-14.0) % Plt Count (150-450) x10^3/uL MPV (7.5-11.0) fL Gran % (36.0-66.0) % Immature Gran % (Auto) (0.00-0.4) % Nucleat RBC Rel Count (0.00-0.1) % Eos # (Auto) (0-0.5) x10^3/uL Immature Gran # (Auto) (0.00-0.03) x10^3u/L Absolute Lymphs (auto) (1.0-4.6) x10^3/uL Absolute Monos (auto) (0.0-1.3) x10^3/uL Absolute Nucleated RBC (0.00-0.01) x10^3u/L Lymphocytes % (24.0-44.0) % Monocytes % (0.0-12.0) % Eosinophils % (0.00-5.0) % Basophils % (0.0-0.4) % Absolute Granulocytes (1.4-6.9) x10^3/uL Basophils # (0-0.4) x10^3/uL Sodium (137-145) mmol/L Potassium (3.5-5.1) mmol/L Chloride (98-107) mmol/L Carbon Dioxide (22-30) mmol/L Anion Gap (5-15) MEQ/L BUN (9-20) mg/dL Creatinine (0.66-1.25) mg/dL Estimated GFR ML/MIN Glucose (74-106) mg/dL POC Glucometer 124 H 196 H (74 to 106) mg/dL Lactic Acid (0.4-2.0) Calcium (8.4-10.2) mg/dL Magnesium (1.6-2.3) mg/dL Total Bilirubin (0.2-1.3) mg/dL AST (17-59) U/L ALT (0-50) U/L Alkaline Phosphatase (38-126) U/L Serum Total Protein (6.3-8.2) g/dL Albumin (3.5-5.0) g/dL Urinalys Dipstick Clnc Urine Color (YELLOW) Urine Appearance (CLEAR) Urine pH (5-6) Ur Specific [place] (1.005-1.025) POC Urine Protein Conf (Negative) Urine Ketones (NEGATIVE) Urine Nitrite (NEGATIVE) Urine Bilirubin (NEGATIVE) Urine Urobilinogen (0-1) mg/dL Urine Leukocytes (NEGATIVE) Urine WBC (Auto) (0-5) /HPF Urine RBC (Auto) (0-2) /HPF U Hyaline Cast (Auto) (0-2) /LPF U Epithel Cells (Auto) (FEW) /HPF Urine Bacteria (Auto) (NEGATIVE) /HPF Urine RBC (0-5) Tomas/ul Granular Casts (Auto) (NEGATIVE) /LPF Ur Culture Indicated? Urine Glucose (NEGATIVE) mg/dL Micro Results-Entire Visit: Accuchecks Date 04/23/22 Date 04/23/22 Date 04/23/22 Date 04/23/22 Date 04/23/22 Date 04/23/22 Date 04/23/22 Date 04/23/22 Date 04/22/22 Date 04/22/22 Date 04/22/22 Date 04/22/22 Date 04/22/22 Date 04/22/22 Date 04/22/22 Date 04/22/22 Time 06:02 Time 06:02 Time 05:02 Time 04:01 Time 03:04 Time 02:00 Time 01:02 Time 00:03 Time 22:04 Time 22:06 Time 21:05 Time 20:03 Time 17:55 Time 17:55 Time 16:00 - Radiology Exams Ordered Rad Exams-Entire Visit: Radiology Procedures Category Date Time Status CHEST 1 VIEW (PORTABLE) Stat Exams 04/22/22 08:58 Completed Discharge Exam General Appearance: no apparent distress, alert Neurologic Exam: alert, oriented x 3, cooperative, normal mood/affect, nml cerebellar function, sensation nml, No motor deficits Eye Exam: PERRL, EOMI, eyes nml inspection Ears, Nose, Throat Exam: normal ENT inspection, pharynx normal, moist mucous membranes Neck Exam: normal inspection, non-tender, supple, full range of motion Respiratory Exam: normal breath sounds, lungs clear, No respiratory distress Cardiovascular Exam: regular rate/rhythm, normal heart sounds Gastrointestinal/Abdomen Exam: soft, No tenderness, No mass Male Genitalia Exam: deferred Rectal Exam: deferred Back Exam: normal inspection, normal range of motion, No CVA tenderness, No vertebral tenderness Extremity Exam: normal inspection, normal range of motion Skin Exam: normal color, warm, dry Final Diagnosis/Problem List - Final Discharge Diagnosis/Problem (1) DKA (diabetic ketoacidoses) Status: Resolved Code(s): E11.10 - TYPE 2 DIABETES MELLITUS WITH KETOACIDOSIS WITHOUT COMA (2) NINFA (acute kidney injury) Status: Resolved Code(s): N17.9 - ACUTE KIDNEY FAILURE, UNSPECIFIED (3) Nausea & vomiting Status: Resolved Code(s): R11.2 - NAUSEA WITH VOMITING, UNSPECIFIED - Discharge Discharge Date: 04/23/22 Disposition: Home, Self-Care Condition: Stable Prescriptions: Continue Insulin Lispro [Admelog Solostar] 10 - 15 unit SQ TIDWMEALS Lisinopril 10 mg [Zestril 10 MG] 10 mg PO DAILY #30 tablet Instructions: Diabetic Ketoacidosis (DC) Follow up with: VALENTINA STARKS [Primary Care Provider] - Call for Appointment
== END 2022-04-23 11:52 | disposition home or self-care (01) ==
LOC: ED 08:07 → ICU 11:48
PROVIDERS: ADMIT General Practice; ATTEND Family Medicine
DX: E11.10 Type 2 diabetes mellitus with ketoacidosis without coma (principal); N17.9 Acute kidney failure, unspecified; R11.2 Nausea with vomiting, unspecified; Z79.899 Other long term (current) drug therapy; Z20.828 Contact with and (suspected) exposure to other viral communicable diseases; Z72.0 Tobacco use
CPT/HCPCS: 0241U; 36415; 71045; 80048; 80053; 81015; 82947; 83036; 83605; 83735; 85025; 87086; 93005; 93041; 96360; 96365; 96366; 96374; 99285; 99291; 93268; J0696; J1817; J2270; J2405; J2550; G0378

== ENCOUNTER 2022-05-24 14:56 | Emergency (ER) | payer OTHER ==
[2022-05-24] MEDS ORDERED: Sodium Chloride 0.9% 1000 ML 1,000 ML IV STA ×2 (15:34→19:16)
--- NOTE | 2022-05-24 15:42 | ERPHSYRPT ---
- History of Present Illness Time Seen by Provider: 05/24/22 15:20 Source: patient Exam Limitations: no limitations Patient Subjective Stated Complaint: pt states "I have been sick for the past 4 days." Triage Nursing Assessment: pt ambulated into the er; pt is axo x4; c/o vomiting; pt states 7/10 abd pain; c/o N/V; pt denies diarrhea; abd soft, nontender; hypoactive bowel sounds; mucus membrane pink and moist; tachycardic Physician History: Patient 36-year-old male presents to our ED with his mother for evaluation of nausea vomiting abdominal pain. Symptoms have been ongoing for approximately 4 days. Patient is a type I diabetic. He has been trying to maintain hydration with Gatorade. However he continues to vomit with his Gatorade. He has not checked his glucose. Abdominal pain is generalized. No trauma. No fever. No diarrhea. No rash. Symptoms are mild to moderate in intensity. Patient voices no other complaints or concerns at this time. Portions of this note were created with voice recognition technology. There may be grammatical, spelling, punctuation or sound alike errors Timing/Duration: today, day(s) (4 days) Severity: moderate Allergies/Adverse Reactions: No Known Drug Allergies Allergy (Verified 01/19/22 17:14) Home Medications: Insulin Lispro [Admelog Solostar] 10 - 15 unit SQ TIDWMEALS 03/30/21 [History] Hx Tetanus, Diphtheria Vaccination/Date Given: Yes Hx Influenza Vaccination/Date Given: No Hx Pneumococcal Vaccination/Date Given: No Immunizations Up to Date: Yes Travel Risk - International Travel Have you traveled outside of the country in past 3 weeks: No - Coronavirus Screening Are you exhibiting any of the following symptoms?: Yes Symptoms: Vomiting/Diarrhea Close contact with a COVID-19 positive Pt in past 14-21 Days: No - Vaccine Status Have you recieved a Covid-19 vaccination: No - Review of Systems Constitutional: No Symptoms, No Fever, No Chills Eyes: No Symptoms Ears, Nose, & Throat: No Symptoms Respiratory: No Symptoms, No Cough, No Dyspnea Cardiac: No Symptoms, No Chest Pain, No Edema, No Syncope Abdominal/Gastrointestinal: No Symptoms, No Abdominal Pain, No Nausea, No Vomiting, No Diarrhea Genitourinary Symptoms: No Symptoms, No Dysuria Musculoskeletal: No Symptoms, No Back Pain, No Neck Pain Skin: No Symptoms, No Rash Neurological: No Symptoms, No Dizziness, No Focal Weakness, No Sensory Changes Psychological: No Symptoms Endocrine: No Symptoms Hematologic/Lymphatic: No Symptoms Immunological/Allergic: No Symptoms All Other Systems: Reviewed and Negative - Past Medical History Pertinent Past Medical History: Yes Neurological History: No Pertinent History ENT History: No Pertinent History Cardiac History: Hypertension Respiratory History: No Pertinent History Endocrine Medical History: Diabetes Type I Musculoskeletal History: No Pertinent History GI Medical History: No Pertinent History History: No Pertinent History Psycho-Social History: Anxiety, Depression Male Reproductive Disorders: No Pertinent History Other Medical History: DKA - Past Surgical History Past Surgical History: No Neuro Surgical History: No Pertinent History Cardiac: No Pertinent History Respiratory: No Pertinent History Gastrointestinal: No Pertinent History Genitourinary: No Pertinent History Musculoskeletal: No Pertinent History Male Surgical History: No Pertinent History Other Surgical History: . - Social History Smoking Status: Former smoker Exposure to second hand smoke: No Drug Use: none Patient Lives Alone: No - Nursing Vital Signs Nursing Vital Signs: Initial Vital Signs Temperature 97.7 F 05/24/22 15:12 Pulse Rate 113 H 05/24/22 15:12 Respiratory Rate 14 05/24/22 15:12 Blood Pressure 142/90 05/24/22 15:12 O2 Sat by Pulse Oximetry 100 05/24/22 15:12 Pain Scale Pain Intensity 7 - Physical Exam General Appearance: no apparent distress, alert Eye Exam: PERRL/EOMI, eyes nml inspection Ears, Nose, Throat Exam: normal ENT inspection, TMs normal, pharynx normal, moist mucous membranes Neck Exam: normal inspection, non-tender, supple, full range of motion Respiratory Exam: normal breath sounds, lungs clear, airway intact, No respiratory distress Cardiovascular Exam: regular rate/rhythm, normal heart sounds, normal peripheral pulses Gastrointestinal/Abdomen Exam: soft, normal bowel sounds, No tenderness, No mass Back Exam: normal inspection, normal range of motion, No CVA tenderness, No vertebral tenderness Extremity Exam: normal inspection, normal range of motion, pelvis stable Neurologic Exam: alert, oriented x 3, cooperative, normal mood/affect, nml cerebellar function, nml station & gait, sensation nml, No motor deficits Skin Exam: normal color, warm, dry, No rash Lymphatic Exam: No adenopathy SpO2 Interpretation: normal SpO2: 100 O2 Delivery: Room Air - Course Nursing assessment & vital signs reviewed: Yes EKG Interpreted by Me: RATE (95), Sinus Rhythm, NORMAL AXIS, NORMAL INTERVALS - CT Exams Abdomen/Pelvis CT Interpretation: Tele-radiologist Report (Right noncalcified lung nodule. Bilateral L5 spondylolisthesis.) Ordered Tests: Active Orders 24 hr Category Date Time Status Aerologist STAT Care 05/24/22 15:34 Active EKG-ER Only STAT Care 05/24/22 15:34 Active IV Insertion STAT Care 05/24/22 15:34 Active Pulse Oximetry (ED) STAT Care 05/24/22 15:34 Active Telemetry q4h Care 05/24/22 17:50 Active ABDOMEN AND PELVIS W/0 CONTRAS [CT] Stat Exams 05/24/22 15:40 Completed ABG [ARTERIAL BLOOD GASES] Stat Lab 05/24/22 17:10 Completed CBC W DIFF Stat Lab 05/24/22 16:10 Completed CMP Stat Lab 05/24/22 16:10 Completed CULTURE,URINE Stat Lab 05/24/22 16:15 Received LIPASE Stat Lab 05/24/22 16:10 Completed POCT GLUCOSE Stat Lab 05/24/22 19:14 Received TROPONIN Q4H Lab 05/24/22 16:10 Completed TROPONIN Q4H Lab 05/24/22 19:45 Ordered TROPONIN Q4H Lab 05/24/22 23:45 Ordered UA W/RFX CULTURE Stat Lab 05/24/22 16:15 Completed Medication Summary Generic Name Dose Route Start Last Admin Trade Name Freq PRN Reason Stop Dose Admin Potassium Chloride 20 meq in 100 mls @ 50 mls/hr 05/24/22 18:00 05/24/22 18:18 Potassium Chloride 20 Meq In Water 100ml IV 05/24/22 21:59 50 mls/hr Q2H XIN Administration Insulin Human Regular 100 unit 100 mls @ 7.46 mls/hr 05/24/22 17:50 05/24/22 18:13 / Sodium Chloride IV 06/23/22 17:49 0.1 unit/kg/hr .[id number] PRN 7.46 mls/hr DKA/HYPERGLYCEMIA Administration Protocol 0.1 UNIT/KG/HR Sodium Chloride 1,000 mls @ 999 mls/hr 05/24/22 19:16 05/24/22 19:17 Sodium Chloride 0.9% 1000 Ml IV 05/24/22 20:16 999 mls/hr .Q1H1M STA Administration Discontinued Medications Generic Name Dose Route Start Last Admin Trade Name Kelsie PRN Reason Stop Dose Admin Sodium Chloride 1,000 mls @ 999 mls/hr 05/24/22 15:34 05/24/22 18:21 Sodium Chloride 0.9% 1000 Ml IV 05/24/22 16:34 Infused .Q1H1M STA Infusion Sodium Chloride Confirm 05/24/22 16:58 Sodium Chloride 0.9% 1000 Ml Administered 05/24/22 16:59 Dose 1,000 mls @ ud .ROUTE .STK-MED ONE Sodium Chloride Confirm 05/24/22 18:11 Sodium Chloride 0.9% Administered 05/24/22 18:12 Dose 100 mls @ ud .ROUTE .STK-MED ONE Sodium Chloride Confirm 05/24/22 18:22 Sodium Chloride 0.9% 1000 Ml Administered 05/24/22 18:23 Dose 1,000 mls @ ud .ROUTE .STK-MED ONE Insulin Human Regular Confirm 05/24/22 18:11 Insulin Regular, Human 1 Unit Administered 05/24/22 18:12 Dose 100 unit .ROUTE .STK-MED ONE Lab/Rad Data: Laboratory Result Diagrams 05/24/22 16:10 05/24/22 16:10 Laboratory Results 05/24/22 05/24/22 05/24/22 Range/Units 17:10 16:15 16:10 WBC (4.0-10.5) x10^3/uL RBC (4.1-5.6) x10^6/uL Hgb (12.5-18.0) g/dL Hct (42-50) % MCV (78-100) fL MCH (26-32) pg MCHC (32-36) g/dL RDW (11.5-14.0) % Plt Count (150-450) x10^3/uL MPV (7.5-11.0) fL Gran % (36.0-66.0) % Immature Gran % (Auto) (0.00-0.4) % Nucleat RBC Rel Count (0.00-0.1) % Eos # (Auto) (0-0.5) x10^3/uL Immature Gran # (Auto) (0.00-0.03) x10^3u/L Absolute Lymphs (auto) (1.0-4.6) x10^3/uL Absolute Monos (auto) (0.0-1.3) x10^3/uL Absolute Nucleated RBC (0.00-0.01) x10^3u/L Lymphocytes % (24.0-44.0) % Monocytes % (0.0-12.0) % Eosinophils % (0.00-5.0) % Basophils % (0.0-0.4) % Absolute Granulocytes (1.4-6.9) x10^3/uL Basophils # (0-0.4) x10^3/uL Puncture Site RIGHT RADIAL pCO2 39 (35-45) mmHg pO2 108 H (75-100) mmHg Base Excess 16.3 H (-2.0-2.0) O2 Saturation 95.4 (94-100) g/dF ABG pH 7.61 H* (7.35-7.45) ABG HCO3 39.2 H* (22-28) ABG O2 Sat (Measured) 98.1 (95-100) % Arnaldo Test YES A-a Gradient -7 a/A Ratio 1.07 Hemoglobin 11.3 Carboxyhemoglobin 2.0 (0.0-6.9) % THgb Methemoglobin 0.8 L (1.4-1.5) % Temperature 37.0 C POC O2 Flow Rate 21 % Sodium (137-145) mmol/L Potassium 3.4 L (3.5-5.1) mmol/L Chloride (98-107) mmol/L Carbon Dioxide (22-30) mmol/L BUN (9-20) mg/dL Creatinine (0.66-1.25) mg/dL Estimated GFR ML/MIN Glucose (74-106) mg/dL Calcium (8.4-10.2) mg/dL Total Bilirubin (0.2-1.3) mg/dL AST (17-59) U/L ALT (0-50) U/L Alkaline Phosphatase (38-126) U/L Troponin I (0.000-0.034) ng/mL Serum Total Protein (6.3-8.2) g/dL Albumin (3.5-5.0) g/dL Lipase 41 (23-300) U/L Urinalys Dipstick Clnc MAIN LAB Urine Color YELLOW (YELLOW) Urine Appearance CLEAR (CLEAR) Urine pH 6.0 (5-6) Ur Specific [place] 1.025 (1.005-1.025) POC Urine Protein Conf >=300 (Negative) Urine Ketones SMALL-15 (NEGATIVE) Urine Nitrite NEGATIVE (NEGATIVE) Urine Bilirubin SMALL (NEGATIVE) Urine Urobilinogen 0.2 (0-1) mg/dL Urine Leukocytes NEGATIVE (NEGATIVE) Urine WBC (Auto) NONE (0-5) /HPF Urine RBC (Auto) 11-15 (0-2) /HPF U Hyaline Cast (Auto) 0-2 (0-2) /LPF U Epithel Cells (Auto) NONE (FEW) /HPF Urine Bacteria (Auto) NONE (NEGATIVE) /HPF Urine RBC SMALL (0-5) Tomas/ul Ur Culture Indicated? YES Urine Glucose 500 (NEGATIVE) mg/dL 05/24/22 05/24/22 05/24/22 Range/Units 16:10 16:10 16:10 WBC 11.4 H (4.0-10.5) x10^3/uL RBC 3.89 L (4.1-5.6) x10^6/uL Hgb 11.3 L (12.5-18.0) g/dL Hct 33.8 L (42-50) % MCV 86.9 (78-100) fL MCH 29.0 (26-32) pg MCHC 33.4 (32-36) g/dL RDW 11.7 (11.5-14.0) % Plt Count 501 H (150-450) x10^3/uL MPV 8.6 (7.5-11.0) fL Gran % 82.1 H (36.0-66.0) % Immature Gran % (Auto) 0.4 (0.00-0.4) % Nucleat RBC Rel Count 0.0 (0.00-0.1) % Eos # (Auto) 0.02 (0-0.5) x10^3/uL Immature Gran # (Auto) 0.04 H (0.00-0.03) x10^3u/L Absolute Lymphs (auto) 0.58 L (1.0-4.6) x10^3/uL Absolute Monos (auto) 1.37 H (0.0-1.3) x10^3/uL Absolute Nucleated RBC 0.00 (0.00-0.01) x10^3u/L Lymphocytes % 5.1 L (24.0-44.0) % Monocytes % 12.1 H (0.0-12.0) % Eosinophils % 0.2 (0.00-5.0) % Basophils % 0.1 (0.0-0.4) % Absolute Granulocytes 9.33 H (1.4-6.9) x10^3/uL Basophils # 0.01 (0-0.4) x10^3/uL Puncture Site pCO2 (35-45) mmHg pO2 (75-100) mmHg Base Excess (-2.0-2.0) O2 Saturation (94-100) g/dF ABG pH (7.35-7.45) ABG HCO3 (22-28) ABG O2 Sat (Measured) (95-100) % Arnaldo Test A-a Gradient a/A Ratio Hemoglobin Carboxyhemoglobin (0.0-6.9) % THgb Methemoglobin (1.4-1.5) % Temperature C POC O2 Flow Rate % Sodium 120 L* (137-145) mmol/L Potassium 3.7 (3.5-5.1) mmol/L Chloride < 65 L (98-107) mmol/L Carbon Dioxide 38 H (22-30) mmol/L BUN 81 H (9-20) mg/dL Creatinine 4.30 H (0.66-1.25) mg/dL Estimated GFR 16.7 ML/MIN Glucose 621 H* (74-106) mg/dL Calcium 7.0 L (8.4-10.2) mg/dL Total Bilirubin 1.10 (0.2-1.3) mg/dL AST 26 (17-59) U/L ALT 24 (0-50) U/L Alkaline Phosphatase 169 H (38-126) U/L Troponin I 0.039 H* (0.000-0.034) ng/mL Serum Total Protein 6.4 (6.3-8.2) g/dL Albumin 3.7 (3.5-5.0) g/dL Lipase (23-300) U/L Urinalys Dipstick Clnc Urine Color (YELLOW) Urine Appearance (CLEAR) Urine pH (5-6) Ur Specific [place] (1.005-1.025) POC Urine Protein Conf (Negative) Urine Ketones (NEGATIVE) Urine Nitrite (NEGATIVE) Urine Bilirubin (NEGATIVE) Urine Urobilinogen (0-1) mg/dL Urine Leukocytes (NEGATIVE) Urine WBC (Auto) (0-5) /HPF Urine RBC (Auto) (0-2) /HPF U Hyaline Cast (Auto) (0-2) /LPF U Epithel Cells (Auto) (FEW) /HPF Urine Bacteria (Auto) (NEGATIVE) /HPF Urine RBC (0-5) Tomas/ul Ur Culture Indicated? Urine Glucose (NEGATIVE) mg/dL - Progress Progress: improved Progress Note: Case discussed with Dr. Ortega who accepts admission to observation. 05/24/22 19:18 Corrected sodium is approximately 132. IV fluids infusing. Potassium administered. Insulin drip administered. Patient feels better. No vomiting observed in our ED. Patient was experiencing some abdominal pain likely due to continuous vomiting. CT abdomen pelvis negative. Lipase negative. Anion gap was not available due to the instrument unable to calculate it secondary to low chloride. Patient's ABG revealed a alkalotic pH. However patient's symptoms have been ongoing for 4 days. This is probably reflecting a metabolic compensation due to the timeframe of his symptoms. Plan of care discussed with patient. He agrees to transfer to [facility] for further evaluation and treatment. Elevated creatinine likely due to to profound dehydration/prerenal. I expect this will correct with time and rehydration. Portions of this note were created with voice recognition technology. There may be grammatical, spelling, punctuation or sound alike errors 05/24/22 19:22 05/24/22 19:24 Counseled pt/family regarding: lab results, diagnosis, rad results - Departure Departure Disposition: Transfer Clinical Impression: DKA, type 1, Hyponatremia, Hyperglycemia, Proteinuria, Ketonuria, Hematuria, Right noncalcified lung nodule Condition: Stable Critical Care Time: No Referrals: VALENTINA STARKS [Primary Care Provider] - Follow up/PCP as directed
--- NOTE | 2022-05-24 16:24 | XRAY ---
Indication: Abdomen pain. Multiple contiguous axial images obtained through the abdomen and pelvis without contrast. Comparison: January 19, 2022 Lung bases demonstrates stable 3 mm right middle and right lower lobe peripheral noncalcified nodules. No infiltrate or effusion. Heart not enlarged. Noncontrasted stomach and bowel loops remain nonobstructed again with normal appendix. No free fluid/air. Remaining liver, gallbladder, pancreas, spleen, adrenal glands, kidneys, ureters, and bladder are unremarkable for noncontrast exam. Stable minimal aortoiliac calcifications without AAA. Osseous structures intact again with bilateral L5 spondylolysis without listhesis. Right abdominal wall again demonstrates 2 foci of subcutaneous induration presumed iatrogenic. Impression: Stable CT abdomen/pelvis without contrast exam again demonstrating right middle/right lower lobe noncalcified micronodules and L5 spondylolysis without listhesis. No new/acute findings.
[2022-05-24 16:28] LABS: Absolute Neutrophil Ct (ANC) 9.33 x10^3/uL (1.4-6.9); Basophil (Absolute #) 0.01 x10^3/uL (0-0.4); Eosinophil % 0.2 % (0.00-5.0); Eosinophil (Absolute #) 0.02 x10^3/uL (0-0.5); Hematocrit 33.8 % (42-50); Hemoglobin 11.3 g/dL (12.5-18.0); Lymphocyte (Absolute #) 0.58 x10^3/uL (1.0-4.6); Lymphocytes % 5.1 % (24.0-44.0); Mean Cell Volume 86.9 fL (78-100); Mean Corpuscular Hgb Concent. 33.4 g/dL (32-36); Mean Platelet Volume 8.6 fL (7.5-11.0); Monocyte (Absolute #) 1.37 x10^3/uL (0.0-1.3); Monocytes % 12.1 % (0.0-12.0); Neutrophil % 82.1 % (36.0-66.0); Platelet Count 501 x10^3/uL (150-450); Red Blood Count 3.89 x10^6/uL (4.1-5.6); Red Cell Distribution Width 11.7 % (11.5-14.0); White Blood Count 11.4 x10^3/uL (4.0-10.5)
[2022-05-24 16:36] LABS: Appearance CLEAR (CLEAR); Bilirubin SMALL (NEGATIVE); Glucose 500 mg/dL (NEGATIVE); Ketones SMALL-15 (NEGATIVE); Specific Gravity 1.025 (1.005-1.025)
[2022-05-24 16:37] LABS: Dipstick done @ ? MAIN LAB; Hyaline Casts 0-2 /LPF (0-2); Nitrite NEGATIVE (NEGATIVE); Protein,Urine Dip >=300 (Negative); RBC SMALL Ery/ul (0-5); Urobilinogen 0.2 mg/dL (0-1)
[2022-05-24 16:43] LABS: ALBUMIN 3.7 g/dL (3.5-5.0); ALKALINE PHOSPHATASE 169 U/L (38-126); BLOOD UREA NITROGEN 81 mg/dL (9-20); Carbon Dioxide 38 mmol/L (22-30); EST GLOMERULAR FILTRATION RATE 16.7 ML/MIN; Potassium 3.7 mmol/L (3.5-5.1); SGOT/AST 26 U/L (17-59); SGPT/ALT 24 U/L (0-50); Total Protein 6.4 g/dL (6.3-8.2)
[2022-05-24 16:44] LABS: Urine Cultured Indicated? YES
[2022-05-24] MEDS ORDERED: Sodium Chloride 0.9% 1000 ML 1,000 ML ONE ×2 (16:58→18:22)
[2022-05-24 17:03] LABS: CHLORIDE < 65 mmol/L (98-107); Glucose 621 mg/dL (74-106); SODIUM 120 mmol/L (137-145)
[2022-05-24 17:17] LABS: A-aADO2 -7; ABG HEMOGLOBIN 11.3; ABG POTASSIUM 3.4 (3.5-5.1); ABG SITE RIGHT RADIAL; ALLEN TEST OK? YES; ARTERIAL BLD GAS O2 SATURATION 98.1 % (95-100); ARTERIAL BLOOD GAS BASE EXCESS 16.3 (-2.0-2.0); ARTERIAL BLOOD GAS FIO2 21 %; ARTERIAL BLOOD GAS PCO2 39 mmHg (35-45); ARTERIAL BLOOD GAS PO2 108 mmHg (75-100); ARTERIAL BLOOD GAS pH 7.61 (7.35-7.45); HCO3- 39.2 (22-28); HGB O2 SAT 95.4 g/dF (94-100); Methhemoglobin 0.8 % (1.4-1.5)
[2022-05-24] MEDS ORDERED: HUMULIN R 100 UNIT in Sodium Chloride 0.9% 100 ML IV PRN (17:50)
[2022-05-24] MEDS ORDERED: HUMULIN R ONE (18:11)
[2022-05-24] MEDS ORDERED: POTASSIUM CHLORIDE 20 mEq IN WATER 100ML 200 ML IV ONE (18:11)
[2022-05-24] MEDS ORDERED: Sodium Chloride 0.9% 100 ML ONE (18:11)
[2022-05-24] MEDS: POTASSIUM CHLORIDE 20 mEq IN WATER 100ML 20 MEQ/100 ML BAG IV SCH (18:18)
[2022-05-24 19:09] VITALS: BP 171/95; PULSE 93
[2022-05-24 19:24] VITALS: O2SAT 100
== END 2022-05-24 19:21 | disposition short-term general hospital (02) ==
LOC: ED 14:56
DX: E10.10 Type 1 diabetes mellitus with ketoacidosis without coma (principal); Z79.4 Long term (current) use of insulin; E87.1 Hypo-osmolality and hyponatremia; R80.9 Proteinuria, unspecified; R82.4 Acetonuria; R31.9 Hematuria, unspecified; R91.1 Solitary pulmonary nodule; N17.9 Acute kidney failure, unspecified; R11.0 Nausea; R10.84 Generalized abdominal pain; I10 Essential (primary) hypertension; Z28.310 Unvaccinated for COVID-19
CPT/HCPCS: 36000; 36415; 36600; 74176; 80053; 81015; 82375; 82803; 83690; 84484; 85025; 87086; 93005; 93041; 94760; 96360; 96365; 96368; 99285; J1815; J3480

== ENCOUNTER 2022-06-04 15:16 | Observation (INO) | payer OTHER ==
[2022-06-04] MEDS ORDERED: Zofran 4 MG/2 ML VIAL IV ONE (15:35)
[2022-06-04] MEDS ORDERED: Sodium Chloride 0.9% 1000 ML 1,000 ML IV STA ×2 (15:35→16:31)
[2022-06-04] MEDS ORDERED: PROTONIX 40 MG IV IV ONE ×2 (15:35→15:41)
[2022-06-04] MEDS ORDERED: Zofran 4 MG/2 ML VIAL ONE (15:41)
[2022-06-04] MEDS ORDERED: Sodium Chloride 0.9% 1000 ML 1,000 ML ONE ×2 (15:41→16:55)
[2022-06-04 15:59] LABS: Epithelial Cells RARE /HPF (FEW); WBC 0-2 /HPF (0-5)
[2022-06-04 16:00] LABS: Appearance CLEAR (CLEAR); Glucose >=1000 mg/dL (NEGATIVE)
[2022-06-04 16:01] LABS: Bilirubin NEGATIVE (NEGATIVE); Dipstick done @ ? MAIN LAB; Ketones MODERATE-40 (NEGATIVE); Nitrite NEGATIVE (NEGATIVE); Ph 6.5 (5-6); Protein,Urine Dip >=300 (Negative); RBC TRACE-LYSED Ery/ul (0-5); Urobilinogen 0.2 mg/dL (0-1)
[2022-06-04 16:02] LABS: Urine Cultured Indicated? YES
[2022-06-04 16:02] LABS: Absolute Neutrophil Ct (ANC) 9.79 x10^3/uL (1.4-6.9); Basophil (Absolute #) 0.04 x10^3/uL (0-0.4); Eosinophil % 2.1 % (0.00-5.0); Eosinophil (Absolute #) 0.25 x10^3/uL (0-0.5); Hematocrit 28.5 % (42-50); Hemoglobin 9.4 g/dL (12.5-18.0); Lymphocyte (Absolute #) 0.76 x10^3/uL (1.0-4.6); Lymphocytes % 6.3 % (24.0-44.0); Mean Cell Volume 86.6 fL (78-100); Mean Corpuscular Hemoglobin 28.6 pg (26-32); Mean Platelet Volume 7.9 fL (7.5-11.0); Monocytes % 9.2 % (0.0-12.0); Neutrophil % 81.8 % (36.0-66.0); Platelet Count 529 x10^3/uL (150-450); Red Blood Count 3.29 x10^6/uL (4.1-5.6); Red Cell Distribution Width 11.6 % (11.5-14.0)
[2022-06-04 16:06] LABS: BILIRUBIN,TOTAL 0.7 mg/dL (0.2-1.3); Calcium 9.4 mg/dL (8.4-10.2); Creatinine 1 3.4 mg/dL (0.66-1.25); EST GLOMERULAR FILTRATION RATE 21.9 ML/MIN; Potassium 4.9 mmol/L (3.5-5.1); Total Protein 7.8 g/dL (6.3-8.2)
--- NOTE | 2022-06-04 16:13 | ERPHSYRPT ---
- History of Present Illness Historian: patient Exam Limitations: no limitations Patient Subjective Stated Complaint: vomiting, abd pain Triage Nursing Assessment: pt to ED c/o vomiting and abd pain 7/10 onset this am. pt was DC from [facility] Saturday and has been having intermittent migraines and "seeing tracers" since discharge home. pt was hospitalized for these same sx and was improved when he went home, however began feeling bad again today. emesis x 8-9 times today. Physician History: 36 yo wm w DM1 who just got discharged from [facility] on 06/01/22 presents w N/V since 5AM today. Pt has prudencio-umbilical pain which is 7/10, burning, and worse w vomiting. He denies hematemesis, diarrhea, melena, and hematochezia. Timing/Duration: other (5AM) Activities at Onset: rest Quality: burning Abdominal Pain Onset Location: epigastric Pain Radiation: no radiation Severity of Pain-Max: severe Severity of Pain-Current: moderate Modifying Factors: Improves With: nothing, vomiting Associated Symptoms: denies symptoms, chest pain Previous symptoms: same symptoms as today Allergies/Adverse Reactions: No Known Drug Allergies Allergy (Verified 06/04/22 15:45) Home Medications: Insulin Lispro [Admelog Solostar] 10 - 15 unit SQ TIDWMEALS 03/30/21 [History] Amlodipine Besylate 5 mg [Norvasc 5 mg] 10 mg PO DAILY 06/04/22 [History] Carvedilol [Coreg ] 1 tab PO BID 06/04/22 [History] Hydralazine HCl 100 mg PO TID 06/04/22 [History] Hx Tetanus, Diphtheria Vaccination/Date Given: Yes Hx Influenza Vaccination/Date Given: No Hx Pneumococcal Vaccination/Date Given: No Immunizations Up to Date: No Travel Risk - International Travel Have you traveled outside of the country in past 3 weeks: No - Coronavirus Screening Are you exhibiting any of the following symptoms?: Yes Symptoms: Vomiting/Diarrhea Close contact with a COVID-19 positive Pt in past 14-21 Days: No - Vaccine Status Have you recieved a Covid-19 vaccination: No - Review of Systems Constitutional: No Symptoms, Weakness Eyes: No Symptoms Ears, Nose, & Throat: No Symptoms Respiratory: No Symptoms Cardiac: No Symptoms, Chest Pain Abdominal/Gastrointestinal: No Symptoms, Abdominal Pain, Nausea, Vomiting Genitourinary Symptoms: No Symptoms Musculoskeletal: No Symptoms Skin: No Symptoms Neurological: No Symptoms Psychological: No Symptoms Endocrine: No Symptoms Hematologic/Lymphatic: No Symptoms Immunological/Allergic: No Symptoms - Past Medical History Pertinent Past Medical History: Yes Neurological History: No Pertinent History ENT History: No Pertinent History Cardiac History: Hypertension Respiratory History: No Pertinent History Endocrine Medical History: Diabetes Type I Musculoskeletal History: No Pertinent History GI Medical History: No Pertinent History History: No Pertinent History Psycho-Social History: Anxiety, Depression Male Reproductive Disorders: No Pertinent History Other Medical History: DKA - Past Surgical History Past Surgical History: No Neuro Surgical History: No Pertinent History Cardiac: No Pertinent History Respiratory: No Pertinent History Gastrointestinal: No Pertinent History Genitourinary: No Pertinent History Musculoskeletal: No Pertinent History Male Surgical History: No Pertinent History Other Surgical History: . - Social History Smoking Status: Former smoker Exposure to second hand smoke: No Drug Use: none Patient Lives Alone: No Significant Family History: no pertinent family hx - Nursing Vital Signs Nursing Vital Signs: Initial Vital Signs Temperature 97.5 F 06/04/22 15:46 Pulse Rate 108 H 06/04/22 15:46 Respiratory Rate 20 06/04/22 15:46 Blood Pressure 200/99 06/04/22 15:46 O2 Sat by Pulse Oximetry 99 06/04/22 15:46 Pain Scale Pain Intensity 0 Hypertensive/Tachy - Physical Exam General Appearance: mild distress Eye Exam: PERRL/EOMI, eyes nml inspection Ears, Nose, Throat Exam: normal ENT inspection, TMs normal, pharynx normal, moist mucous membranes Neck Exam: normal inspection, non-tender, supple, full range of motion, No meningismus, No mass, No Brudzinski, No Kernig's, No carotid bruit Respiratory Exam: normal breath sounds, lungs clear, airway intact Cardiovascular Exam: tachycardia, capillary refill <2 sec Gastrointestinal/Abdomen Exam: soft, normal bowel sounds, tenderness (Mild prudencio-umbilical TTP/No guarding or rebound) Back Exam: normal inspection, normal range of motion, No CVA tenderness, No vertebral tenderness Extremity Exam: normal inspection, normal range of motion Neurologic Exam: alert, oriented x 3, cooperative, 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 as tested, normal mood/affect, sensation nml, No motor deficits, No sensory deficit Skin Exam: normal color, warm, dry, No rash Lymphatic Exam: No adenopathy SpO2 Interpretation: normal SpO2: 99 O2 Delivery: Room Air - Course Nursing assessment & vital signs reviewed: Yes Ordered Tests: Active Orders 24 hr Category Date Time Status Foreign Food Cook Specialty STAT Care 06/04/22 15:51 Completed EKG-ER Only STAT Care 06/04/22 15:50 Completed IV Insertion STAT Care 06/04/22 15:50 Completed IV Insertion-2nd Peripheral STAT Care 06/04/22 15:50 Completed POCT Glucose Check STAT Care 06/04/22 15:51 Completed NPO Diet 06/04/22 19:44 Active AMYLASE Stat Lab 06/04/22 15:45 Completed BMP Routine Lab 06/04/22 22:00 Ordered BMP Stat Lab 06/04/22 18:15 Completed CBC W DIFF AM.LAB Lab 06/05/22 04:00 Ordered CBC W DIFF Stat Lab 06/04/22 15:45 Completed CMP AM.LAB Lab 06/05/22 04:00 Ordered CMP Stat Lab 06/04/22 15:45 Completed CULTURE,URINE Stat Lab 06/04/22 15:39 Received LIPASE Stat Lab 06/04/22 15:45 Completed POCT GLUCOSE Stat Lab 06/04/22 15:38 Completed POCT GLUCOSE Stat Lab 06/04/22 19:26 Completed TROPONIN Q4H Lab 06/04/22 15:45 Completed TROPONIN Q4H Lab 06/04/22 18:30 Completed TROPONIN Q4H Lab 06/04/22 23:45 Ordered UA W/RFX CULTURE Stat Lab 06/04/22 15:39 Completed Transfer Order Routine Transfer 06/04/22 Completed Medication Summary Generic Name Dose Route Start Last Admin Trade Name Freq PRN Reason Stop Dose Admin Sodium Chloride 1,000 mls @ 150 mls/hr 06/04/22 19:45 06/04/22 20:06 Sodium Chloride 0.9% 1000 Ml IV 07/04/22 19:44 150 mls/hr .Q6H40M XIN Administration Insulin Human Lispro 0 unit 06/04/22 19:43 Insulin Lispro 1 Unit SQ 07/04/22 19:42 UD PRN HYPERGLYCEMIA Ondansetron HCl 4 mg 06/04/22 19:43 Ondansetron Hcl 4 Mg/2 Ml Vial IV 07/04/22 19:42 Q6H PRN PRN NAUSEA/VOMITING Pantoprazole Sodium 40 mg 06/05/22 10:00 Pantoprazole 40 Mg Vial IV 07/05/22 09:59 Q24H10 XIN Discontinued Medications Generic Name Dose Route Start Last Admin Trade Name Freq PRN Reason Stop Dose Admin Droperidol 1.25 mg 06/04/22 16:23 06/04/22 16:26 Droperidol 5 Mg/2 Ml Vial IV 06/04/22 16:24 1.25 mg STAT ONE Administration Droperidol Confirm 06/04/22 16:26 Droperidol 5 Mg/2 Ml Vial Administered 06/04/22 16:27 Dose 5 mg .ROUTE .STK-MED ONE Sodium Chloride 1,000 mls @ 999 mls/hr 06/04/22 15:35 06/04/22 16:57 Sodium Chloride 0.9% 1000 Ml IV 06/04/22 16:35 Infused .Q1H1M STA Infusion Sodium Chloride Confirm 06/04/22 15:41 Sodium Chloride 0.9% 1000 Ml Administered 06/04/22 15:42 Dose 1,000 mls @ ud .ROUTE .STK-MED ONE Sodium Chloride 1,000 mls @ 999 mls/hr 06/04/22 16:31 06/04/22 18:06 Sodium Chloride 0.9% 1000 Ml IV 06/04/22 17:31 Infused .Q1H1M STA Infusion Sodium Chloride Confirm 06/04/22 16:55 Sodium Chloride 0.9% 1000 Ml Administered 06/04/22 16:56 Dose 1,000 mls @ ud .ROUTE .STK-MED ONE Insulin Human Lispro 10 unit 06/04/22 16:32 06/04/22 16:55 Insulin Lispro 1 Unit SQ 06/04/22 16:33 10 unit STAT ONE Administration Insulin Human Lispro Confirm 06/04/22 16:54 Insulin Lispro 1 Unit Administered 06/04/22 16:55 Dose 10 unit .ROUTE .STK-MED ONE Ondansetron HCl 4 mg 06/04/22 15:35 06/04/22 15:42 Ondansetron Hcl 4 Mg/2 Ml Vial IV 06/04/22 15:36 4 mg STAT ONE Administration Ondansetron HCl Confirm 06/04/22 15:41 Ondansetron Hcl 4 Mg/2 Ml Vial Administered 06/04/22 15:42 Dose 4 mg .ROUTE .STK-MED ONE Pantoprazole Sodium 40 mg 06/04/22 15:35 06/04/22 15:42 Pantoprazole 40 Mg Vial IV 06/04/22 15:36 40 mg STAT ONE Administration Pantoprazole Sodium Confirm 06/04/22 15:41 Pantoprazole 40 Mg Vial Administered 06/04/22 15:42 Dose 40 mg IV .STK-MED ONE Lab/Rad Data: Laboratory Result Diagrams 06/04/22 15:45 06/04/22 18:15 Laboratory Results 06/04/22 06/04/22 06/04/22 Range/Units 19:39 19:26 18:30 WBC (4.0-10.5) x10^3/uL RBC (4.1-5.6) x10^6/uL Hgb (12.5-18.0) g/dL Hct (42-50) % MCV (78-100) fL MCH (26-32) pg MCHC (32-36) g/dL RDW (11.5-14.0) % Plt Count (150-450) x10^3/uL MPV (7.5-11.0) fL Gran % (36.0-66.0) % Immature Gran % (Auto) (0.00-0.4) % Nucleat RBC Rel Count (0.00-0.1) % Eos # (Auto) (0-0.5) x10^3/uL Immature Gran # (Auto) (0.00-0.03) x10^3u/L Absolute Lymphs (auto) (1.0-4.6) x10^3/uL Absolute Monos (auto) (0.0-1.3) x10^3/uL Absolute Nucleated RBC (0.00-0.01) x10^3u/L Lymphocytes % (24.0-44.0) % Monocytes % (0.0-12.0) % Eosinophils % (0.00-5.0) % Basophils % (0.0-0.4) % Absolute Granulocytes (1.4-6.9) x10^3/uL Basophils # (0-0.4) x10^3/uL Sodium (137-145) mmol/L Potassium (3.5-5.1) mmol/L Chloride (98-107) mmol/L Carbon Dioxide (22-30) mmol/L Anion Gap (5-15) MEQ/L BUN (9-20) mg/dL Creatinine (0.66-1.25) mg/dL Estimated GFR ML/MIN Glucose (74-106) mg/dL POC Glucometer 205 H (74 to 106) mg/dL Calcium (8.4-10.2) mg/dL Total Bilirubin (0.2-1.3) mg/dL AST (17-59) U/L ALT (0-50) U/L Alkaline Phosphatase (38-126) U/L Troponin I < 0.012 (0.000-0.034) ng/mL Serum Total Protein (6.3-8.2) g/dL Albumin (3.5-5.0) g/dL Amylase (30-110) U/L Lipase (23-300) U/L Urinalys Dipstick Clnc Urine Color (YELLOW) Urine Appearance (CLEAR) Urine pH (5-6) Ur Specific [place] (1.005-1.025) POC Urine Protein Conf (Negative) Urine Ketones (NEGATIVE) Urine Nitrite (NEGATIVE) Urine Bilirubin (NEGATIVE) Urine Urobilinogen (0-1) mg/dL Urine Leukocytes (NEGATIVE) Urine WBC (Auto) (0-5) /HPF Urine RBC (Auto) (0-2) /HPF U Epithel Cells (Auto) (FEW) /HPF Urine Bacteria (Auto) Urine RBC (0-5) Tomas/ul Ur Culture Indicated? Urine Glucose (NEGATIVE) mg/dL Influenza Type A Ag NEGATIVE (NEGATIVE) Influenza Type B Ag NEGATIVE (NEGATIVE) RSV (PCR) NEGATIVE (Negative) SARS-CoV-2 (PCR) NEGATIVE (NEGATIVE) 06/04/22 06/04/22 06/04/22 Range/Units 18:15 15:45 15:45 WBC (4.0-10.5) x10^3/uL RBC (4.1-5.6) x10^6/uL Hgb (12.5-18.0) g/dL Hct (42-50) % MCV (78-100) fL MCH (26-32) pg MCHC (32-36) g/dL RDW (11.5-14.0) % Plt Count (150-450) x10^3/uL MPV (7.5-11.0) fL Gran % (36.0-66.0) % Immature Gran % (Auto) (0.00-0.4) % Nucleat RBC Rel Count (0.00-0.1) % Eos # (Auto) (0-0.5) x10^3/uL Immature Gran # (Auto) (0.00-0.03) x10^3u/L Absolute Lymphs (auto) (1.0-4.6) x10^3/uL Absolute Monos (auto) (0.0-1.3) x10^3/uL Absolute Nucleated RBC (0.00-0.01) x10^3u/L Lymphocytes % (24.0-44.0) % Monocytes % (0.0-12.0) % Eosinophils % (0.00-5.0) % Basophils % (0.0-0.4) % Absolute Granulocytes (1.4-6.9) x10^3/uL Basophils # (0-0.4) x10^3/uL Sodium 132 L 131 L (137-145) mmol/L Potassium 3.8 D 4.9 (3.5-5.1) mmol/L Chloride 101 95 L (98-107) mmol/L Carbon Dioxide 23 25 (22-30) mmol/L Anion Gap 12.4 16.5 H (5-15) MEQ/L BUN 34 H 41 H (9-20) mg/dL Creatinine 3.14 H 3.40 H (0.66-1.25) mg/dL Estimated GFR 24.0 21.9 ML/MIN Glucose 297 H 461 H (74-106) mg/dL POC Glucometer (74 to 106) mg/dL Calcium 8.0 L 9.4 (8.4-10.2) mg/dL Total Bilirubin 0.70 (0.2-1.3) mg/dL AST 38 (17-59) U/L ALT 34 (0-50) U/L Alkaline Phosphatase 166 H (38-126) U/L Troponin I < 0.012 (0.000-0.034) ng/mL Serum Total Protein 7.8 (6.3-8.2) g/dL Albumin 4.0 (3.5-5.0) g/dL Amylase 62 (30-110) U/L Lipase 15 L (23-300) U/L Urinalys Dipstick Clnc Urine Color (YELLOW) Urine Appearance (CLEAR) Urine pH (5-6) Ur Specific [place] (1.005-1.025) POC Urine Protein Conf (Negative) Urine Ketones (NEGATIVE) Urine Nitrite (NEGATIVE) Urine Bilirubin (NEGATIVE) Urine Urobilinogen (0-1) mg/dL Urine Leukocytes (NEGATIVE) Urine WBC (Auto) (0-5) /HPF Urine RBC (Auto) (0-2) /HPF U Epithel Cells (Auto) (FEW) /HPF Urine Bacteria (Auto) Urine RBC (0-5) Tomas/ul Ur Culture Indicated? Urine Glucose (NEGATIVE) mg/dL Influenza Type A Ag (NEGATIVE) Influenza Type B Ag (NEGATIVE) RSV (PCR) (Negative) SARS-CoV-2 (PCR) (NEGATIVE) 06/04/22 06/04/22 06/04/22 Range/Units 15:45 15:39 15:38 WBC 12.0 H (4.0-10.5) x10^3/uL RBC 3.29 L (4.1-5.6) x10^6/uL Hgb 9.4 L (12.5-18.0) g/dL Hct 28.5 L (42-50) % MCV 86.6 (78-100) fL MCH 28.6 (26-32) pg MCHC 33.0 (32-36) g/dL RDW 11.6 (11.5-14.0) % Plt Count 529 H (150-450) x10^3/uL MPV 7.9 (7.5-11.0) fL Gran % 81.8 H (36.0-66.0) % Immature Gran % (Auto) 0.3 (0.00-0.4) % Nucleat RBC Rel Count 0.0 (0.00-0.1) % Eos # (Auto) 0.25 (0-0.5) x10^3/uL Immature Gran # (Auto) 0.04 H (0.00-0.03) x10^3u/L Absolute Lymphs (auto) 0.76 L (1.0-4.6) x10^3/uL Absolute Monos (auto) 1.10 (0.0-1.3) x10^3/uL Absolute Nucleated RBC 0.00 (0.00-0.01) x10^3u/L Lymphocytes % 6.3 L (24.0-44.0) % Monocytes % 9.2 (0.0-12.0) % Eosinophils % 2.1 (0.00-5.0) % Basophils % 0.3 (0.0-0.4) % Absolute Granulocytes 9.79 H (1.4-6.9) x10^3/uL Basophils # 0.04 (0-0.4) x10^3/uL Sodium (137-145) mmol/L Potassium (3.5-5.1) mmol/L Chloride (98-107) mmol/L Carbon Dioxide (22-30) mmol/L Anion Gap (5-15) MEQ/L BUN (9-20) mg/dL Creatinine (0.66-1.25) mg/dL Estimated GFR ML/MIN Glucose (74-106) mg/dL POC Glucometer 410 H (74 to 106) mg/dL Calcium (8.4-10.2) mg/dL Total Bilirubin (0.2-1.3) mg/dL AST (17-59) U/L ALT (0-50) U/L Alkaline Phosphatase (38-126) U/L Troponin I (0.000-0.034) ng/mL Serum Total Protein (6.3-8.2) g/dL Albumin (3.5-5.0) g/dL Amylase (30-110) U/L Lipase (23-300) U/L Urinalys Dipstick Clnc MAIN LAB Urine Color YELLOW (YELLOW) Urine Appearance CLEAR (CLEAR) Urine pH 6.5 (5-6) Ur Specific [place] 1.020 (1.005-1.025) POC Urine Protein Conf >=300 (Negative) Urine Ketones MODERATE-40 (NEGATIVE) Urine Nitrite NEGATIVE (NEGATIVE) Urine Bilirubin NEGATIVE (NEGATIVE) Urine Urobilinogen 0.2 (0-1) mg/dL Urine Leukocytes NEGATIVE (NEGATIVE) Urine WBC (Auto) 0-2 (0-5) /HPF Urine RBC (Auto) 3-5 (0-2) /HPF U Epithel Cells (Auto) RARE (FEW) /HPF Urine Bacteria (Auto) Not Reportable Urine RBC TRACE-LYSED (0-5) Tomas/ul Ur Culture Indicated? YES Urine Glucose >=1000 (NEGATIVE) mg/dL Influenza Type A Ag (NEGATIVE) Influenza Type B Ag (NEGATIVE) RSV (PCR) (Negative) SARS-CoV-2 (PCR) (NEGATIVE) - Progress Progress: improved Progress Note: 06/04/22 19:36 1L NS x2 10units sq Humalog 4mg IV Zofran 06/04/22 19:37 40mg IV Protonix 1.25mg IV Droperidol Pt's N/V improved greatly 06/04/22 19:38 Mild anion gap acidosis resolved/Glucose decreased Spoke w Dr. Gomes who said that she was not carbon paper machine operator Spoke w Dr. Meehan who stated that he was not carbon paper machine operator for the group Spoke w Dr. Hernandez who did not know that he was carbon paper machine operator for the group but did accept the pt Discussed with Dr.: Faiza Lizarraga B.Reed Counseled pt/family regarding: lab results, diagnosis, rad results - Departure Departure Disposition: Observation Clinical Impression: Diabetes mellitus type I, DKA, type 1 Condition: Stable Critical Care Time: No
[2022-06-04 16:17] LABS: ANION GAP 16.5 MEQ/L (5-15)
[2022-06-04] MEDS ORDERED: HUMALOG SQ ONE (16:32)
[2022-06-04] MEDS ORDERED: HUMALOG ONE (16:54)
[2022-06-04 18:37] LABS: ANION GAP 12.4 MEQ/L (5-15); Creatinine 1 3.14 mg/dL (0.66-1.25)
[2022-06-04 18:47] LABS: Potassium 3.8 mmol/L (3.5-5.1)
[2022-06-04] MEDS: Sodium Chloride 0.9% 1000 ML 1,000 ML IV SCH (20:06)
[2022-06-04 20:19] LABS: INFLUENZA A NEGATIVE (NEGATIVE); INFLUENZA B NEGATIVE (NEGATIVE); RESPIRATORY SYNCTIAL VIRUS NEGATIVE (Negative); SARS-CoV-2 Xpert Express NEGATIVE (NEGATIVE)
[2022-06-04] MEDS: Apresoline 25 MG TABLET PO SCH (23:28)
[2022-06-04 23:37] LABS: ANION GAP 10.5 MEQ/L (5-15); Calcium 8.3 mg/dL (8.4-10.2); Creatinine 1 3.02 mg/dL (0.66-1.25); EST GLOMERULAR FILTRATION RATE 25.1 ML/MIN; Potassium 4.7 mmol/L (3.5-5.1)
[2022-06-05] MEDS: HUMALOG SQ PRN ×3 (00:10→11:43)
[2022-06-05] MEDS: Sodium Chloride 0.9% 1000 ML 1,000 ML IV SCH ×4 (02:13→20:56)
[2022-06-05] MEDS: Zofran 4 MG/2 ML VIAL IV PRN ×2 (04:45→11:43)
[2022-06-05 05:15] LABS: Absolute Neutrophil Ct (ANC) 6.82 x10^3/uL (1.4-6.9); Basophil (Absolute #) 0.03 x10^3/uL (0-0.4); Eosinophil % 3.4 % (0.00-5.0); Eosinophil (Absolute #) 0.31 x10^3/uL (0-0.5); Hematocrit 24.8 % (42-50); Lymphocyte (Absolute #) 0.78 x10^3/uL (1.0-4.6); Lymphocytes % 8.6 % (24.0-44.0); Mean Cell Volume 86.7 fL (78-100); Mean Corpuscular Hgb Concent. 32.3 g/dL (32-36); Mean Platelet Volume 7.9 fL (7.5-11.0); Monocyte (Absolute #) 1.05 x10^3/uL (0.0-1.3); Monocytes % 11.6 % (0.0-12.0); Neutrophil % 75.7 % (36.0-66.0); Platelet Count 419 x10^3/uL (150-450); Red Blood Count 2.86 x10^6/uL (4.1-5.6); Red Cell Distribution Width 11.7 % (11.5-14.0)
[2022-06-05 05:35] LABS: ALBUMIN 3.1 g/dL (3.5-5.0); ANION GAP 9.9 MEQ/L (5-15); BILIRUBIN,TOTAL 0.4 mg/dL (0.2-1.3); Calcium 8.2 mg/dL (8.4-10.2); Creatinine 1 3.04 mg/dL (0.66-1.25); EST GLOMERULAR FILTRATION RATE 24.9 ML/MIN; Potassium 4.1 mmol/L (3.5-5.1); Total Protein 6.5 g/dL (6.3-8.2)
[2022-06-05] MEDS: Apresoline 25 MG TABLET PO SCH ×3 (08:44→21:32)
[2022-06-05] MEDS: PROTONIX 40 MG IV IV SCH (08:45)
--- NOTE | 2022-06-05 09:06 | PCM.HP ---
History of Present Illness - Chief Complaint Chief Complaint: DKA History of Present Illness: is a 36 year old male pt of mine from [facility] with DM I and recurrent abd pain/N/V who was admitted through ER with abd pain, N/V, and acute renal injury. He had been admitted at [facility] last week and discharged 4d ago. He said he felt fine when discharged and took the meds they prescribed, but the next morning he felt badly and was vomiting again. He c/o epigastric pain that was "rough" (unable to further characterize); no diarrhea. Had some chills. He saw nephrology while in [facility], he says. His eGFR was >60 in January 2022, but has been decreased since Apr 2022. on 05/24/22 was 16.7. This morning his abd is feeling much better. He is not nauseated and last vomited yesterday. Would like to try eating. Chews TOB. Denies EtOH or recent drug use. - Review of Systems Constitutional: Chills, Fatigue Cardiac: Edema (LE) Abdominal/Gastrointestinal: Abdominal Pain, Nausea, Vomiting Medications & Allergies Home Medications: Home Medication List Insulin Lispro [Admelog Solostar] 10 - 15 unit SQ TIDWMEALS 03/30/21 [History Confirmed 06/04/22] Amlodipine Besylate 5 mg [Norvasc 5 mg] 10 mg PO DAILY 06/04/22 [History Confirmed 06/04/22] Carvedilol [Coreg ] 1 tab PO BID 06/04/22 [History Confirmed 06/04/22] Hydralazine HCl 100 mg PO TID 06/04/22 [History Confirmed 06/04/22] Allergies/Adverse Reactions: Allergies Allergy/AdvReac Type Severity Reaction Status Date / Time No Known Drug Allergies Allergy Verified 06/04/22 15:45 - Past Medical History Past Medical History: Yes Neurological History: No Pertinent History ENT History: No Pertinent History Cardiac History: Hypertension Respiratory History: No Pertinent History Endocrine Medical History: Diabetes Type I Musculoskelatal History: No Pertinent History GI Medical History: No Pertinent History History: No Pertinent History Pyscho-Social History: Anxiety, Depression Male Reproductive Disorders: No Pertinent History Comment: DKA - Past Surgical History Past Surgical History: No Neuro Surgical History: No Pertinent History Cardiac History: No Pertinent History Respiratory Surgery: No Pertinent History GI Surgical History: No Pertinent History Genitourinary Surgical Hx: No Pertinent History Musculskeletal Surgical Hx: No Pertinent History Male Surgical History: No Pertinent History Other Surgical History: . - Social History Smoking Status: Former smoker Exposure to second hand smoke: No Alcohol: None Drug Use: none Significant Family History: no pertinent family hx - Physical Exam Vital Signs: Vital Signs - 24 hr Temp Pulse Resp BP Pulse Ox 06/05/22 07:47 98.0 F 100 H 18 166/88 99 06/05/22 06:00 91 H 176/92 06/05/22 04:00 97.9 F 91 H 16 192/101 97 06/05/22 02:00 77 136/81 06/05/22 00:00 97.8 F 86 16 193/105 96 06/04/22 23:05 99 06/04/22 22:00 98.4 F 82 16 153/89 06/04/22 21:04 97.5 F 96 H 16 168/95 96 06/04/22 19:21 98.1 F 87 16 133/83 96 06/04/22 18:09 94 H 16 125/74 95 06/04/22 17:43 102.2 F 06/04/22 17:07 104 H 18 168/100 98 06/04/22 16:22 104 H 20 185/100 97 06/04/22 15:46 97.5 F 108 H 20 200/99 99 General Appearance: no apparent distress, alert Neurologic Exam: oriented x 3, cooperative Eye Exam: eyes nml inspection Ears, Nose, Throat Exam: moist mucous membranes Neck Exam: normal inspection, non-tender, No lymphadenopathy, No subcutaneous emphysema, No thyromegaly Respiratory Exam: normal breath sounds, lungs clear, No crackles/rales, No rhonchi, No wheezing Cardiovascular Exam: regular rate/rhythm, normal heart sounds, No murmur Gastrointestinal/Abdomen Exam: soft, normal bowel sounds, No tenderness, No distention, No mass, No guarding, No rebound Back Exam: normal inspection, No CVA tenderness, No rash Extremity Exam: normal inspection, No pedal edema, No swelling Skin Exam: normal color, warm, dry, No rash Results - Labs Lab/Micro Results: Lab Results-Last 24 Hours 06/04/22 06/04/22 06/04/22 Range/Units 15:38 15:39 15:45 WBC 12.0 H (4.0-10.5) x10^3/uL RBC 3.29 L (4.1-5.6) x10^6/uL Hgb 9.4 L (12.5-18.0) g/dL Hct 28.5 L (42-50) % MCV 86.6 (78-100) fL MCH 28.6 (26-32) pg MCHC 33.0 (32-36) g/dL RDW 11.6 (11.5-14.0) % Plt Count 529 H (150-450) x10^3/uL MPV 7.9 (7.5-11.0) fL Gran % 81.8 H (36.0-66.0) % Immature Gran % (Auto) 0.3 (0.00-0.4) % Nucleat RBC Rel Count 0.0 (0.00-0.1) % Eos # (Auto) 0.25 (0-0.5) x10^3/uL Immature Gran # (Auto) 0.04 H (0.00-0.03) x10^3u/L Absolute Lymphs (auto) 0.76 L (1.0-4.6) x10^3/uL Absolute Monos (auto) 1.10 (0.0-1.3) x10^3/uL Absolute Nucleated RBC 0.00 (0.00-0.01) x10^3u/L Lymphocytes % 6.3 L (24.0-44.0) % Monocytes % 9.2 (0.0-12.0) % Eosinophils % 2.1 (0.00-5.0) % Basophils % 0.3 (0.0-0.4) % Absolute Granulocytes 9.79 H (1.4-6.9) x10^3/uL Basophils # 0.04 (0-0.4) x10^3/uL Sodium (137-145) mmol/L Potassium (3.5-5.1) mmol/L Chloride (98-107) mmol/L Carbon Dioxide (22-30) mmol/L Anion Gap (5-15) MEQ/L BUN (9-20) mg/dL Creatinine (0.66-1.25) mg/dL Estimated GFR ML/MIN Glucose (74-106) mg/dL POC Glucometer 410 H (74 to 106) mg/dL Calcium (8.4-10.2) mg/dL Total Bilirubin (0.2-1.3) mg/dL AST (17-59) U/L ALT (0-50) U/L Alkaline Phosphatase (38-126) U/L Troponin I (0.000-0.034) ng/mL Serum Total Protein (6.3-8.2) g/dL Albumin (3.5-5.0) g/dL Amylase (30-110) U/L Lipase (23-300) U/L Urinalys Dipstick Clnc MAIN LAB Urine Color YELLOW (YELLOW) Urine Appearance CLEAR (CLEAR) Urine pH 6.5 (5-6) Ur Specific [place] 1.020 (1.005-1.025) POC Urine Protein Conf >=300 (Negative) Urine Ketones MODERATE-40 (NEGATIVE) Urine Nitrite NEGATIVE (NEGATIVE) Urine Bilirubin NEGATIVE (NEGATIVE) Urine Urobilinogen 0.2 (0-1) mg/dL Urine Leukocytes NEGATIVE (NEGATIVE) Urine WBC (Auto) 0-2 (0-5) /HPF Urine RBC (Auto) 3-5 (0-2) /HPF U Epithel Cells (Auto) RARE (FEW) /HPF Urine Bacteria (Auto) Not Reportable Urine RBC TRACE-LYSED (0-5) Tomas/ul Ur Culture Indicated? YES Urine Glucose >=1000 (NEGATIVE) mg/dL Influenza Type A Ag (NEGATIVE) Influenza Type B Ag (NEGATIVE) RSV (PCR) (Negative) SARS-CoV-2 (PCR) (NEGATIVE) 06/04/22 06/04/22 06/04/22 Range/Units 15:45 15:45 18:15 WBC (4.0-10.5) x10^3/uL RBC (4.1-5.6) x10^6/uL Hgb (12.5-18.0) g/dL Hct (42-50) % MCV (78-100) fL MCH (26-32) pg MCHC (32-36) g/dL RDW (11.5-14.0) % Plt Count (150-450) x10^3/uL MPV (7.5-11.0) fL Gran % (36.0-66.0) % Immature Gran % (Auto) (0.00-0.4) % Nucleat RBC Rel Count (0.00-0.1) % Eos # (Auto) (0-0.5) x10^3/uL Immature Gran # (Auto) (0.00-0.03) x10^3u/L Absolute Lymphs (auto) (1.0-4.6) x10^3/uL Absolute Monos (auto) (0.0-1.3) x10^3/uL Absolute Nucleated RBC (0.00-0.01) x10^3u/L Lymphocytes % (24.0-44.0) % Monocytes % (0.0-12.0) % Eosinophils % (0.00-5.0) % Basophils % (0.0-0.4) % Absolute Granulocytes (1.4-6.9) x10^3/uL Basophils # (0-0.4) x10^3/uL Sodium 131 L 132 L (137-145) mmol/L Potassium 4.9 3.8 D (3.5-5.1) mmol/L Chloride 95 L 101 (98-107) mmol/L Carbon Dioxide 25 23 (22-30) mmol/L Anion Gap 16.5 H 12.4 (5-15) MEQ/L BUN 41 H 34 H (9-20) mg/dL Creatinine 3.40 H 3.14 H (0.66-1.25) mg/dL Estimated GFR 21.9 24.0 ML/MIN Glucose 461 H 297 H (74-106) mg/dL POC Glucometer (74 to 106) mg/dL Calcium 9.4 8.0 L (8.4-10.2) mg/dL Total Bilirubin 0.70 (0.2-1.3) mg/dL AST 38 (17-59) U/L ALT 34 (0-50) U/L Alkaline Phosphatase 166 H (38-126) U/L Troponin I < 0.012 (0.000-0.034) ng/mL Serum Total Protein 7.8 (6.3-8.2) g/dL Albumin 4.0 (3.5-5.0) g/dL Amylase 62 (30-110) U/L Lipase 15 L (23-300) U/L Urinalys Dipstick Clnc Urine Color (YELLOW) Urine Appearance (CLEAR) Urine pH (5-6) Ur Specific [place] (1.005-1.025) POC Urine Protein Conf (Negative) Urine Ketones (NEGATIVE) Urine Nitrite (NEGATIVE) Urine Bilirubin (NEGATIVE) Urine Urobilinogen (0-1) mg/dL Urine Leukocytes (NEGATIVE) Urine WBC (Auto) (0-5) /HPF Urine RBC (Auto) (0-2) /HPF U Epithel Cells (Auto) (FEW) /HPF Urine Bacteria (Auto) Urine RBC (0-5) Tomas/ul Ur Culture Indicated? Urine Glucose (NEGATIVE) mg/dL Influenza Type A Ag (NEGATIVE) Influenza Type B Ag (NEGATIVE) RSV (PCR) (Negative) SARS-CoV-2 (PCR) (NEGATIVE) 06/04/22 06/04/22 06/04/22 Range/Units 18:30 19:26 19:39 WBC (4.0-10.5) x10^3/uL RBC (4.1-5.6) x10^6/uL Hgb (12.5-18.0) g/dL Hct (42-50) % MCV (78-100) fL MCH (26-32) pg MCHC (32-36) g/dL RDW (11.5-14.0) % Plt Count (150-450) x10^3/uL MPV (7.5-11.0) fL Gran % (36.0-66.0) % Immature Gran % (Auto) (0.00-0.4) % Nucleat RBC Rel Count (0.00-0.1) % Eos # (Auto) (0-0.5) x10^3/uL Immature Gran # (Auto) (0.00-0.03) x10^3u/L Absolute Lymphs (auto) (1.0-4.6) x10^3/uL Absolute Monos (auto) (0.0-1.3) x10^3/uL Absolute Nucleated RBC (0.00-0.01) x10^3u/L Lymphocytes % (24.0-44.0) % Monocytes % (0.0-12.0) % Eosinophils % (0.00-5.0) % Basophils % (0.0-0.4) % Absolute Granulocytes (1.4-6.9) x10^3/uL Basophils # (0-0.4) x10^3/uL Sodium (137-145) mmol/L Potassium (3.5-5.1) mmol/L Chloride (98-107) mmol/L Carbon Dioxide (22-30) mmol/L Anion Gap (5-15) MEQ/L BUN (9-20) mg/dL Creatinine (0.66-1.25) mg/dL Estimated GFR ML/MIN Glucose (74-106) mg/dL POC Glucometer 205 H (74 to 106) mg/dL Calcium (8.4-10.2) mg/dL Total Bilirubin (0.2-1.3) mg/dL AST (17-59) U/L ALT (0-50) U/L Alkaline Phosphatase (38-126) U/L Troponin I < 0.012 (0.000-0.034) ng/mL Serum Total Protein (6.3-8.2) g/dL Albumin (3.5-5.0) g/dL Amylase (30-110) U/L Lipase (23-300) U/L Urinalys Dipstick Clnc Urine Color (YELLOW) Urine Appearance (CLEAR) Urine pH (5-6) Ur Specific [place] (1.005-1.025) POC Urine Protein Conf (Negative) Urine Ketones (NEGATIVE) Urine Nitrite (NEGATIVE) Urine Bilirubin (NEGATIVE) Urine Urobilinogen (0-1) mg/dL Urine Leukocytes (NEGATIVE) Urine WBC (Auto) (0-5) /HPF Urine RBC (Auto) (0-2) /HPF U Epithel Cells (Auto) (FEW) /HPF Urine Bacteria (Auto) Urine RBC (0-5) Tomas/ul Ur Culture Indicated? Urine Glucose (NEGATIVE) mg/dL Influenza Type A Ag NEGATIVE (NEGATIVE) Influenza Type B Ag NEGATIVE (NEGATIVE) RSV (PCR) NEGATIVE (Negative) SARS-CoV-2 (PCR) NEGATIVE (NEGATIVE) 06/04/22 06/04/22 06/04/22 Range/Units 20:32 22:01 23:21 WBC (4.0-10.5) x10^3/uL RBC (4.1-5.6) x10^6/uL Hgb (12.5-18.0) g/dL Hct (42-50) % MCV (78-100) fL MCH (26-32) pg MCHC (32-36) g/dL RDW (11.5-14.0) % Plt Count (150-450) x10^3/uL MPV (7.5-11.0) fL Gran % (36.0-66.0) % Immature Gran % (Auto) (0.00-0.4) % Nucleat RBC Rel Count (0.00-0.1) % Eos # (Auto) (0-0.5) x10^3/uL Immature Gran # (Auto) (0.00-0.03) x10^3u/L Absolute Lymphs (auto) (1.0-4.6) x10^3/uL Absolute Monos (auto) (0.0-1.3) x10^3/uL Absolute Nucleated RBC (0.00-0.01) x10^3u/L Lymphocytes % (24.0-44.0) % Monocytes % (0.0-12.0) % Eosinophils % (0.00-5.0) % Basophils % (0.0-0.4) % Absolute Granulocytes (1.4-6.9) x10^3/uL Basophils # (0-0.4) x10^3/uL Sodium (137-145) mmol/L Potassium (3.5-5.1) mmol/L Chloride (98-107) mmol/L Carbon Dioxide (22-30) mmol/L Anion Gap (5-15) MEQ/L BUN (9-20) mg/dL Creatinine (0.66-1.25) mg/dL Estimated GFR ML/MIN Glucose (74-106) mg/dL POC Glucometer 171 H 163 H (74 to 106) mg/dL Calcium (8.4-10.2) mg/dL Total Bilirubin (0.2-1.3) mg/dL AST (17-59) U/L ALT (0-50) U/L Alkaline Phosphatase (38-126) U/L Troponin I 0.014 (0.000-0.034) ng/mL Serum Total Protein (6.3-8.2) g/dL Albumin (3.5-5.0) g/dL Amylase (30-110) U/L Lipase (23-300) U/L Urinalys Dipstick Clnc Urine Color (YELLOW) Urine Appearance (CLEAR) Urine pH (5-6) Ur Specific [place] (1.005-1.025) POC Urine Protein Conf (Negative) Urine Ketones (NEGATIVE) Urine Nitrite (NEGATIVE) Urine Bilirubin (NEGATIVE) Urine Urobilinogen (0-1) mg/dL Urine Leukocytes (NEGATIVE) Urine WBC (Auto) (0-5) /HPF Urine RBC (Auto) (0-2) /HPF U Epithel Cells (Auto) (FEW) /HPF Urine Bacteria (Auto) Urine RBC (0-5) Tomas/ul Ur Culture Indicated? Urine Glucose (NEGATIVE) mg/dL Influenza Type A Ag (NEGATIVE) Influenza Type B Ag (NEGATIVE) RSV (PCR) (Negative) SARS-CoV-2 (PCR) (NEGATIVE) 06/04/22 06/05/22 06/05/22 Range/Units 23:21 00:03 02:00 WBC (4.0-10.5) x10^3/uL RBC (4.1-5.6) x10^6/uL Hgb (12.5-18.0) g/dL Hct (42-50) % MCV (78-100) fL MCH (26-32) pg MCHC (32-36) g/dL RDW (11.5-14.0) % Plt Count (150-450) x10^3/uL MPV (7.5-11.0) fL Gran % (36.0-66.0) % Immature Gran % (Auto) (0.00-0.4) % Nucleat RBC Rel Count (0.00-0.1) % Eos # (Auto) (0-0.5) x10^3/uL Immature Gran # (Auto) (0.00-0.03) x10^3u/L Absolute Lymphs (auto) (1.0-4.6) x10^3/uL Absolute Monos (auto) (0.0-1.3) x10^3/uL Absolute Nucleated RBC (0.00-0.01) x10^3u/L Lymphocytes % (24.0-44.0) % Monocytes % (0.0-12.0) % Eosinophils % (0.00-5.0) % Basophils % (0.0-0.4) % Absolute Granulocytes (1.4-6.9) x10^3/uL Basophils # (0-0.4) x10^3/uL Sodium 129 L (137-145) mmol/L Potassium 4.7 D (3.5-5.1) mmol/L Chloride 99 (98-107) mmol/L Carbon Dioxide 25 (22-30) mmol/L Anion Gap 10.5 (5-15) MEQ/L BUN 34 H (9-20) mg/dL Creatinine 3.02 H (0.66-1.25) mg/dL Estimated GFR 25.1 ML/MIN Glucose 204 H (74-106) mg/dL POC Glucometer 248 H 156 H (74 to 106) mg/dL Calcium 8.3 L (8.4-10.2) mg/dL Total Bilirubin (0.2-1.3) mg/dL AST (17-59) U/L ALT (0-50) U/L Alkaline Phosphatase (38-126) U/L Troponin I (0.000-0.034) ng/mL Serum Total Protein (6.3-8.2) g/dL Albumin (3.5-5.0) g/dL Amylase (30-110) U/L Lipase (23-300) U/L Urinalys Dipstick Clnc Urine Color (YELLOW) Urine Appearance (CLEAR) Urine pH (5-6) Ur Specific [place] (1.005-1.025) POC Urine Protein Conf (Negative) Urine Ketones (NEGATIVE) Urine Nitrite (NEGATIVE) Urine Bilirubin (NEGATIVE) Urine Urobilinogen (0-1) mg/dL Urine Leukocytes (NEGATIVE) Urine WBC (Auto) (0-5) /HPF Urine RBC (Auto) (0-2) /HPF U Epithel Cells (Auto) (FEW) /HPF Urine Bacteria (Auto) Urine RBC (0-5) Tomas/ul Ur Culture Indicated? Urine Glucose (NEGATIVE) mg/dL Influenza Type A Ag (NEGATIVE) Influenza Type B Ag (NEGATIVE) RSV (PCR) (Negative) SARS-CoV-2 (PCR) (NEGATIVE) 06/05/22 06/05/2206/05/22 Range/Units 04:02 04:35 04:35 WBC 9.0 (4.0-10.5) x10^3/uL RBC 2.86 L (4.1-5.6) x10^6/uL Hgb 8.0 L (12.5-18.0) g/dL Hct 24.8 L (42-50) % MCV 86.7 (78-100) fL MCH 28.0 (26-32) pg MCHC 32.3 (32-36) g/dL RDW 11.7 (11.5-14.0) % Plt Count 419 (150-450) x10^3/uL MPV 7.9 (7.5-11.0) fL Gran % 75.7 H (36.0-66.0) % Immature Gran % (Auto) 0.4 (0.00-0.4) % Nucleat RBC Rel Count 0.0 (0.00-0.1) % Eos # (Auto) 0.31 (0-0.5) x10^3/uL Immature Gran # (Auto) 0.04 H (0.00-0.03) x10^3u/L Absolute Lymphs (auto) 0.78 L (1.0-4.6) x10^3/uL Absolute Monos (auto) 1.05 (0.0-1.3) x10^3/uL Absolute Nucleated RBC 0.00 (0.00-0.01) x10^3u/L Lymphocytes % 8.6 L (24.0-44.0) % Monocytes % 11.6 (0.0-12.0) % Eosinophils % 3.4 (0.00-5.0) % Basophils % 0.3 (0.0-0.4) % Absolute Granulocytes 6.82 (1.4-6.9) x10^3/uL Basophils # 0.03 (0-0.4) x10^3/uL Sodium 129 L (137-145) mmol/L Potassium 4.1 (3.5-5.1) mmol/L Chloride 99 (98-107) mmol/L Carbon Dioxide 25 (22-30) mmol/L Anion Gap 9.9 (5-15) MEQ/L BUN 30 H (9-20) mg/dL Creatinine 3.04 H (0.66-1.25) mg/dL Estimated GFR 24.9 ML/MIN Glucose 198 H (74-106) mg/dL POC Glucometer 158 H (74 to 106) mg/dL Calcium 8.2 L (8.4-10.2) mg/dL Total Bilirubin 0.40 (0.2-1.3) mg/dL AST 19 (17-59) U/L ALT 19 (0-50) U/L Alkaline Phosphatase 119 (38-126) U/L Troponin I (0.000-0.034) ng/mL Serum Total Protein 6.5 (6.3-8.2) g/dL Albumin 3.1 L (3.5-5.0) g/dL Amylase (30-110) U/L Lipase (23-300) U/L Urinalys Dipstick Clnc Urine Color (YELLOW) Urine Appearance (CLEAR) Urine pH (5-6) Ur Specific [place] (1.005-1.025) POC Urine Protein Conf (Negative) Urine Ketones (NEGATIVE) Urine Nitrite (NEGATIVE) Urine Bilirubin (NEGATIVE) Urine Urobilinogen (0-1) mg/dL Urine Leukocytes (NEGATIVE) Urine WBC (Auto) (0-5) /HPF Urine RBC (Auto) (0-2) /HPF U Epithel Cells (Auto) (FEW) /HPF Urine Bacteria (Auto) Urine RBC (0-5) Tomas/ul Ur Culture Indicated? Urine Glucose (NEGATIVE) mg/dL Influenza Type A Ag (NEGATIVE) Influenza Type B Ag (NEGATIVE) RSV (PCR) (Negative) SARS-CoV-2 (PCR) (NEGATIVE) 06/05/22 Range/Units 06:01 WBC (4.0-10.5) x10^3/uL RBC (4.1-5.6) x10^6/uL Hgb (12.5-18.0) g/dL Hct (42-50) % MCV (78-100) fL MCH (26-32) pg MCHC (32-36) g/dL RDW (11.5-14.0) % Plt Count (150-450) x10^3/uL MPV (7.5-11.0) fL Gran % (36.0-66.0) % Immature Gran % (Auto) (0.00-0.4) % Nucleat RBC Rel Count (0.00-0.1) % Eos # (Auto) (0-0.5) x10^3/uL Immature Gran # (Auto) (0.00-0.03) x10^3u/L Absolute Lymphs (auto) (1.0-4.6) x10^3/uL Absolute Monos (auto) (0.0-1.3) x10^3/uL Absolute Nucleated RBC (0.00-0.01) x10^3u/L Lymphocytes % (24.0-44.0) % Monocytes % (0.0-12.0) % Eosinophils % (0.00-5.0) % Basophils % (0.0-0.4) % Absolute Granulocytes (1.4-6.9) x10^3/uL Basophils # (0-0.4) x10^3/uL Sodium (137-145) mmol/L Potassium (3.5-5.1) mmol/L Chloride (98-107) mmol/L Carbon Dioxide (22-30) mmol/L Anion Gap (5-15) MEQ/L BUN (9-20) mg/dL Creatinine (0.66-1.25) mg/dL Estimated GFR ML/MIN Glucose (74-106) mg/dL POC Glucometer 251 H (74 to 106) mg/dL Calcium (8.4-10.2) mg/dL Total Bilirubin (0.2-1.3) mg/dL AST (17-59) U/L ALT (0-50) U/L Alkaline Phosphatase (38-126) U/L Troponin I (0.000-0.034) ng/mL Serum Total Protein (6.3-8.2) g/dL Albumin (3.5-5.0) g/dL Amylase (30-110) U/L Lipase (23-300) U/L Urinalys Dipstick Clnc Urine Color (YELLOW) Urine Appearance (CLEAR) Urine pH (5-6) Ur Specific [place] (1.005-1.025) POC Urine Protein Conf (Negative) Urine Ketones (NEGATIVE) Urine Nitrite (NEGATIVE) Urine Bilirubin (NEGATIVE) Urine Urobilinogen (0-1) mg/dL Urine Leukocytes (NEGATIVE) Urine WBC (Auto) (0-5) /HPF Urine RBC (Auto) (0-2) /HPF U Epithel Cells (Auto) (FEW) /HPF Urine Bacteria (Auto) Urine RBC (0-5) Tomas/ul Ur Culture Indicated? Urine Glucose (NEGATIVE) mg/dL Influenza Type A Ag (NEGATIVE) Influenza Type B Ag (NEGATIVE) RSV (PCR) (Negative) SARS-CoV-2 (PCR) (NEGATIVE) Microbiology 06/04/22 15:39 Urine Culture - Preliminary Clean Catch Midstream NO GROWTH TO DATE Accuchecks Date 06/05/22 Date 06/05/22 Date 06/05/22 Date 06/05/22 Date 06/05/22 Date 06/04/22 Date 06/04/22 Date 06/04/22 Date 06/04/22 Time 00:22 Time 22:06 Time 20:34 Time 19:26 Time 15:50 Assessment/Plan (1) Acute renal failure Current Visit: Yes Status: Acute Qualifiers: Acute renal failure type: unspecified Qualified Code(s): N17.9 - Acute kidney failure, unspecified Assessment & Plan: Will consult nephrology as he was just seen by them at [facility]. (2) Anemia Current Visit: Yes Status: Chronic Qualifiers: Anemia type: unspecified type Qualified Code(s): D64.9 - Anemia, unspecified Assessment & Plan: Some dilution, and could be related to renal failure, but will do iron studies. 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 Had gastritis on EGD, done at last admission at [facility]. Code(s): R11.2 - NAUSEA WITH VOMITING, UNSPECIFIED
[2022-06-05 14:26] LABS: Iron 53 ug/dL (49-181); Iron Saturation 18 % (20-39); TIBC 300 ug/dL (261-497)
[2022-06-05] MEDS: NORVASC 5 MG PO SCH (16:47)
[2022-06-05] MEDS: Zestril 10 MG PO SCH (16:47)
[2022-06-05] MEDS: HUMALOG SQ SCH (16:48)
[2022-06-05] MEDS ORDERED: NON-FORMULARY ITEM (Insulin Lispro [Admelog Solostar] 100 UNIT/ML Insuln.Pen) SQ SCH (17:00)
[2022-06-05] MEDS: Coreg PO SCH (23:50)
[2022-06-06] MEDS: Sodium Chloride 0.9% 1000 ML 1,000 ML IV SCH ×2 (03:28→12:56)
[2022-06-06] MEDS: HUMALOG SQ SCH ×3 (07:18→18:48)
[2022-06-06] MEDS: HUMALOG SQ PRN (07:18)
[2022-06-06 08:41] LABS: ANION GAP 16.3 MEQ/L (5-15); Calcium 8.4 mg/dL (8.4-10.2); Creatinine 1 2.99 mg/dL (0.66-1.25); EST GLOMERULAR FILTRATION RATE 25.4 ML/MIN; Potassium 4.6 mmol/L (3.5-5.1)
[2022-06-06 08:42] LABS: Hemoglobin 8.5 g/dL (12.5-18.0); Mean Cell Volume 88.7 fL (78-100); Mean Corpuscular Hgb Concent. 32.7 g/dL (32-36); Mean Platelet Volume 7.8 fL (7.5-11.0); Platelet Count 421 x10^3/uL (150-450); Red Blood Count 2.93 x10^6/uL (4.1-5.6); Red Cell Distribution Width 11.9 % (11.5-14.0); White Blood Count 11.5 x10^3/uL (4.0-10.5)
[2022-06-06] MEDS: PROTONIX 40 MG IV IV SCH (09:35)
[2022-06-06] MEDS: NORVASC 5 MG PO SCH (09:35)
[2022-06-06] MEDS: Apresoline 25 MG TABLET PO SCH ×2 (09:35→14:44)
[2022-06-06] MEDS: Coreg PO SCH (09:35)
[2022-06-06] MEDS: Zestril 10 MG PO SCH (09:35)
--- NOTE | 2022-06-06 11:04 | PCM.NOTE ---
Date and Time: 06/06/22 1059 Subjective Assessment: His IV came out last night. Had some nausea but was with BS 400, he thinks that's why. Otherwise franc diet and would like to have it advanced. - Review of Systems Constitutional: No Fever Abdominal/Gastrointestinal: Nausea Objective Exam General Appearance: no apparent distress, alert Neurologic Exam: oriented x 3, cooperative, other (smiles at times and talking) Skin Exam: normal color, warm, dry, No rash Eye Exam: eyes nml inspection Ears, Nose, Throat Exam: moist mucous membranes Neck Exam: normal inspection Respiratory Exam: normal breath sounds, lungs clear, No crackles/rales, No rhonchi, No wheezing Cardiovascular Exam: regular rate/rhythm, normal heart sounds, No murmur (/) Gastrointestinal/Abdomen Exam: soft, normal bowel sounds, No tenderness, No distention, No mass, No guarding, No rebound Extremity Exam: normal inspection, No pedal edema, No swelling OBJECTIVE DATA Vital Signs: Vital Signs - 24 hr Temp Pulse Resp BP Pulse Ox 06/06/22 07:19 97.8 F 100 H 15 143/77 95 06/06/22 03:51 97.5 F 92 H 16 158/86 97 06/05/22 23:41 97.8 F 94 H 16 130/78 97 06/05/22 20:00 97.7 F 101 H 18 139/75 94 L 06/05/22 16:00 98.7 F 96 H 18 177/96 98 06/05/22 11:31 98.6 F 97 H 20 132/66 98 Pain Assessment - Last Documented Pain Intensity 0 Intake and Output: Intake & Output 06/03/22 06/04/22 06/05/22 06/06/22 11:59 11:59 11:59 11:59 Intake Total 1479 9032 Output Total 1250 4150 Balance 229 4882 Weight 79.6 kg Lab Results: Lab Results-Last 24 Hours 06/05/22 06/05/22 06/05/22 Range/Units 04:35 04:35 11:18 WBC (4.0-10.5) x10^3/uL RBC (4.1-5.6) x10^6/uL Hgb (12.5-18.0) g/dL Hct (42-50) % MCV (78-100) fL MCH (26-32) pg MCHC (32-36) g/dL RDW (11.5-14.0) % Plt Count (150-450) x10^3/uL MPV (7.5-11.0) fL Sodium (137-145) mmol/L Potassium (3.5-5.1) mmol/L Chloride (98-107) mmol/L Carbon Dioxide (22-30) mmol/L Anion Gap (5-15) MEQ/L BUN (9-20) mg/dL Creatinine (0.66-1.25) mg/dL Estimated GFR ML/MIN Glucose (74-106) mg/dL POC Glucometer 409 H (74 to 106) mg/dL Calcium (8.4-10.2) mg/dL Iron 53 (49-181) ug/dL TIBC 300 (261-497) ug/dL Iron Saturation 18 L (20-39) % Ferritin 56.6 (17.9-464) ng/mL 06/05/22 06/05/22 06/05/22 Range/Units 16:30 20:59 23:38 WBC (4.0-10.5) x10^3/uL RBC (4.1-5.6) x10^6/uL Hgb (12.5-18.0) g/dL Hct (42-50) % MCV (78-100) fL MCH (26-32) pg MCHC (32-36) g/dL RDW (11.5-14.0) % Plt Count (150-450) x10^3/uL MPV (7.5-11.0) fL Sodium (137-145) mmol/L Potassium (3.5-5.1) mmol/L Chloride (98-107) mmol/L Carbon Dioxide (22-30) mmol/L Anion Gap (5-15) MEQ/L BUN (9-20) mg/dL Creatinine (0.66-1.25) mg/dL Estimated GFR ML/MIN Glucose (74-106) mg/dL POC Glucometer 206 H 62 L 145 H (74 to 106) mg/dL Calcium (8.4-10.2) mg/dL Iron (49-181) ug/dL TIBC (261-497) ug/dL Iron Saturation (20-39) % Ferritin (17.9-464) ng/mL 06/06/22 06/06/22 06/06/22 Range/Units 07:04 08:28 08:28 WBC 11.5 H (4.0-10.5) x10^3/uL RBC 2.93 L (4.1-5.6) x10^6/uL Hgb 8.5 L (12.5-18.0) g/dL Hct 26.0 L (42-50) % MCV 88.7 (78-100) fL MCH 29.0 (26-32) pg MCHC 32.7 (32-36) g/dL RDW 11.9 (11.5-14.0) % Plt Count 421 (150-450) x10^3/uL MPV 7.8 (7.5-11.0) fL Sodium 128 L (137-145) mmol/L Potassium 4.6 (3.5-5.1) mmol/L Chloride 100 (98-107) mmol/L Carbon Dioxide 17 L (22-30) mmol/L Anion Gap 16.3 H (5-15) MEQ/L BUN 24 H (9-20) mg/dL Creatinine 2.99 H (0.66-1.25) mg/dL Estimated GFR 25.4 ML/MIN Glucose 398 H (74-106) mg/dL POC Glucometer 430 H (74 to 106) mg/dL Calcium 8.4 (8.4-10.2) mg/dL Iron (49-181) ug/dL TIBC (261-497) ug/dL Iron Saturation (20-39) % Ferritin (17.9-464) ng/mL Multi-Disciplinary Progress Notes: Multi-Disciplinary Progress Notes 06/06/22 09:19 Case Management Note by Kayleen Burden PT INDEPENDENT. GLUCOMETER AND SUPPLIES ALREADY CALLED INTO PHARMACY PER HIS REQUEST. NO FURTHER NEEDS ANTICIPATED AT THIS TIME. Initialized on 06/06/22 09:19 - END OF NOTE Assessment/Plan (1) Acute renal failure Current Visit: Yes Status: Acute Qualifiers: Acute renal failure type: unspecified Qualified Code(s): N17.9 - Acute kidney failure, unspecified Assessment & Plan: Static today, but hasn't had fluids for part of the night. Will restart. I contacted Dr. Delgado, who is to consult on the patient, thank you. (2) Anemia Current Visit: Yes Status: Chronic Qualifiers: Anemia type: unspecified type Qualified Code(s): D64.9 - Anemia, unspecified Assessment & Plan: stable Code(s): D64.9 - ANEMIA, UNSPECIFIED (3) Diabetes mellitus type I Current Visit: Yes Status: Chronic Onset Date: ~05/30/18 Qualifiers: Diabetes mellitus complication status: with kidney complications Diabetes mellitus complication detail: with nephropathy Qualified Code(s): E10.21 - Type 1 diabetes mellitus with diabetic nephropathy (4) Hyponatremia Current Visit: No Status: Chronic Assessment & Plan: mild worsening Code(s): E87.1 - HYPO-OSMOLALITY AND HYPONATREMIA (5) Nausea and vomiting Current Visit: No Status: Resolved Code(s): R11.2 - NAUSEA WITH VOMITING, UNSPECIFIED
[2022-06-06 20:04] VITALS: BP 114/60; PULSE 93; O2SAT 98
--- NOTE | 2022-06-07 08:53 | CONS ---
TELE-CONSULT DATE: 06/06/2022 HISTORY: The patient is a 36-year-old gentleman with multiple medical problems including diabetes and substance abuse. He had recent hospitalization at [facility] where he was seen by us for increased urine creatinine. He had initially presented with a creatinine of 4.1 with uncontrolled blood sugar. He is thought to have acute on chronic kidney disease. His baseline is unclear as he had very poor follow up. His renal function was improving but it plateaued at about 3 when he left the hospital. He admitted to using methamphetamines. His sugars have been uncontrolled and his blood pressure is still uncontrolled so diabetic hypertension was thought to be related to contributing to his chronic kidney disease. He was discharged. He presented to [facility] within a few days of discharge from [facility] and was admitted for nausea, vomiting and worsening renal function. The patient said he is feeling better. REVIEW OF SYSTEMS: Nausea, vomiting, abdominal pain better. PAST MEDICAL HISTORY: Diabetes mellitus type I. Hypertension. Acute on chronic kidney disease. Hypertension. Substance abuse. Medication noncompliant. Anxiety. Depression. PAST SURGICAL HISTORY: MEDICATIONS: Home medications and medicines in the hospital were reviewed and verified. ALLERGIES: NKDA. SOCIAL HISTORY: Substance abuse. Former smoker. FAMILY HISTORY: Denies any kidney disease in the family. PHYSICAL EXAMINATION: Could not be performed on tele-visit. VITAL SIGNS: Temperature 98F, pulse 100, respiratory rate 18, blood pressure 166/88. Pulse ox 99%. LAB DATA AND TESTS: Creatinine 3. Hemoglobin 9.4. Urine protein greater than 300. BUN 41, creatinine 3.4. Follow up labs from today 06/06/2022 showed blood sugar 398, BUN 24, creatinine 2.9, sodium 128, bicarb 17, anion gap 16. ASSESSMENT AND PLAN: A 36-year-old gentleman with multiple medical problems. 1) Acute on chronic kidney disease, acute possibly related to osmotic diuresis, uncontrolled blood sugars, underlying chronic kidney disease related to diabetes, hypertension, renal nephropathy, smoking and methamphetamine use. His work up at [facility] was negative. He does have significant proteinuria. He may benefit from kidney biopsy which can be done as an outpatient. I recommend discharging him and follow up with me in the office either tomorrow or the day after and then we can plan outpatient kidney biopsy. In the meantime, avoid CHRISTI, ARB's. 2) Anemia likely acute on chronic. He requires outpatient monitoring and follow up. 3) Diabetes mellitus type I, uncontrolled. Management per primary team. 4) Hypertension, uncontrolled. Continue his medications as needed. Needs outpatient follow-up. I counseled with him quitting smoking and quitting substance abuse. 5) Hyponatremia partly contributed to uncontrolled blood sugars and partly due to some nausea. 6) Substance abuse. The patient was counseled. Thank you for this consultation on your patient. I recommend outpatient follow-up. The plan was discussed with Dr. Styles.
== END 2022-06-06 20:15 | disposition home or self-care (01) ==
LOC: ED 15:16 → MED SURG 20:29
PROVIDERS: ADMIT General Practice; ATTEND Family Medicine
DX: N17.9 Acute kidney failure, unspecified (principal); E10.22 Type 1 diabetes mellitus with diabetic chronic kidney disease; E10.65 Type 1 diabetes mellitus with hyperglycemia; I12.9 Hypertensive chronic kidney disease with stage 1 through stage 4 chronic kidney disease, or unspecified chronic kidney disease; N18.9 Chronic kidney disease, unspecified; D64.9 Anemia, unspecified; E10.21 Type 1 diabetes mellitus with diabetic nephropathy; E87.1 Hypo-osmolality and hyponatremia; R11.2 Nausea with vomiting, unspecified; F19.10 Other psychoactive substance abuse, uncomplicated; Z79.899 Other long term (current) drug therapy; Z20.828 Contact with and (suspected) exposure to other viral communicable diseases
CPT/HCPCS: 0241U; 36000; 36415; 80048; 80053; 81015; 82150; 82728; 82947; 83540; 83550; 83690; 84484; 85025; 85027; 87086; 93005; 93041; 96360; 96361; 96372; 96374; 96375; 99285; G0378; J1817; J2405; A9270-GY

== ENCOUNTER 2022-06-14 11:25 | Emergency (ER) | payer OTHER ==
[2022-06-14] MEDS ORDERED: TRANDATE 20 MG/4 ML SYRINGE IV ONE ×4 (12:11→13:20)
[2022-06-14 12:19] LABS: Appearance CLEAR (CLEAR); Bilirubin NEGATIVE (NEGATIVE); Glucose 250 mg/dL (NEGATIVE); Ketones NEGATIVE (NEGATIVE); Protein,Urine Dip >=300 (Negative); RBC SMALL Ery/ul (0-5); Specific Gravity 1.025 (1.005-1.025)
[2022-06-14 12:20] LABS: Dipstick done @ ? MAIN LAB; Nitrite NEGATIVE (NEGATIVE); Urobilinogen 0.2 mg/dL (0-1)
[2022-06-14] MEDS ORDERED: Zofran 4 MG/2 ML VIAL ONE (12:24)
[2022-06-14 12:28] LABS: WBC 0-2 /HPF (0-5)
[2022-06-14 12:30] LABS: Urine Cultured Indicated? YES
[2022-06-14] MEDS ORDERED: Zofran 4 MG/2 ML VIAL IV ONE (12:30)
[2022-06-14] MEDS ORDERED: Sodium Chloride 0.9% 1000 ML 1,000 ML IV STA (12:58)
[2022-06-14 13:00] LABS: Absolute Neutrophil Ct (ANC) 6.61 x10^3/uL (1.4-6.9); Basophil (Absolute #) 0.04 x10^3/uL (0-0.4); Eosinophil % 4.1 % (0.00-5.0); Eosinophil (Absolute #) 0.36 x10^3/uL (0-0.5); Hematocrit 26.3 % (42-50); Hemoglobin 8.7 g/dL (12.5-18.0); Lymphocytes % 6.8 % (24.0-44.0); Mean Cell Volume 86.2 fL (78-100); Mean Corpuscular Hemoglobin 28.5 pg (26-32); Mean Corpuscular Hgb Concent. 33.1 g/dL (32-36); Mean Platelet Volume 8.3 fL (7.5-11.0); Monocyte (Absolute #) 1.19 x10^3/uL (0.0-1.3); Monocytes % 13.4 % (0.0-12.0); Neutrophil % 74.4 % (36.0-66.0); Platelet Count 421 x10^3/uL (150-450); Red Blood Count 3.05 x10^6/uL (4.1-5.6); Red Cell Distribution Width 11.9 % (11.5-14.0); White Blood Count 8.9 x10^3/uL (4.0-10.5)
[2022-06-14] MEDS ORDERED: Compazine 10 MG/2 ML IV ONE (13:03)
[2022-06-14] MEDS ORDERED: Sodium Chloride 0.9% 1000 ML 1,000 ML ONE (13:09)
[2022-06-14] MEDS ORDERED: Compazine 10 MG/2 ML ONE (13:09)
[2022-06-14 13:14] LABS: ALBUMIN 3.2 g/dL (3.5-5.0); ANION GAP 10.4 MEQ/L (5-15); BILIRUBIN,TOTAL 0.4 mg/dL (0.2-1.3); Calcium 8.4 mg/dL (8.4-10.2); Creatinine 1 2.72 mg/dL (0.66-1.25); EST GLOMERULAR FILTRATION RATE 28.3 ML/MIN; Total Protein 6.4 g/dL (6.3-8.2)
[2022-06-14 13:16] LABS: INR 0.96 (0.8-3.0); PROTIME 10.2 SECONDS (9.4-12.5); PTT 25.1 SECONDS (25.1-36.5)
[2022-06-14 13:20] VITALS: O2SAT 99
[2022-06-14] MEDS ORDERED: NORVASC 5 MG PO ONE (13:53)
[2022-06-14] MEDS ORDERED: Coreg PO ONE (13:56)
[2022-06-14] MEDS ORDERED: NORVASC 5 MG ONE ×2 (14:00→14:09)
[2022-06-14 14:03] VITALS: BP 157/94; PULSE 82
--- NOTE | 2022-06-14 14:03 | ERPHSYRPT ---
- History of Present Illness Historian: patient Exam Limitations: no limitations Patient Subjective Stated Complaint: Patient with c/o HTN, N/V. Patient is unsure how long his B/P has been high. He was just at his primary MD's office for a follow-up visit, they checked it there and told him it was too high. Patient states he has been nauseated since right after being discharged from the hospital a few days ago. Triage Nursing Assessment: Patient ambulated back to ED without difficulties. No SOB. He is alert and oriented. SKin moist, warm. Patient giving short answers to questions; not very talkative. Physician History: 36 yo wm w DM1 w recent admit for DKA went for office f/u and found to have severely elevated BP. He has chronic N/V and has not taken his BP meds today. Pt denies BLAS/fever/abdominal pain/focal weakness/chest pain/diarrhea. Timing/Duration: today Activities at Onset: other (MD office) Quality: other (Nopain) Abdominal Pain Onset Location: other (No pain) Pain Radiation: no radiation Severity of Pain-Max: none Severity of Pain-Current: none Modifying Factors: Improves With: nothing, vomiting Associated Symptoms: denies symptoms Previous symptoms: same symptoms as today Allergies/Adverse Reactions: No Known Drug Allergies Allergy (Verified 06/14/22 11:42) Home Medications: Insulin Lispro [Admelog Solostar] 10 - 15 unit SQ TIDWMEALS 03/30/21 [History] Amlodipine Besylate 5 mg [Norvasc 5 mg] 10 mg PO DAILY 06/04/22 [History] Carvedilol [Coreg ] 25 mg PO BID 06/04/22 [History] Hydralazine HCl 100 mg PO TID 06/04/22 [History] Lisinopril 10 mg [Zestril 10 MG] 10 mg PO DAILY 06/05/22 [History] Hx Tetanus, Diphtheria Vaccination/Date Given: Yes Hx Influenza Vaccination/Date Given: No Hx Pneumococcal Vaccination/Date Given: Yes (10/01/2016) Immunizations Up to Date: Yes Travel Risk - International Travel Have you traveled outside of the country in past 3 weeks: No - Coronavirus Screening Are you exhibiting any of the following symptoms?: Yes Symptoms: Vomiting/Diarrhea Close contact with a COVID-19 positive Pt in past 14-21 Days: No - Vaccine Status Have you recieved a Covid-19 vaccination: No - Review of Systems Constitutional: No Symptoms, Malaise Eyes: No Symptoms Ears, Nose, & Throat: No Symptoms Respiratory: No Symptoms Cardiac: No Symptoms Abdominal/Gastrointestinal: No Symptoms, Nausea Genitourinary Symptoms: No Symptoms Musculoskeletal: No Symptoms Skin: No Symptoms Neurological: No Symptoms Psychological: No Symptoms Endocrine: No Symptoms Hematologic/Lymphatic: No Symptoms Immunological/Allergic: No Symptoms - Past Medical History Pertinent Past Medical History: Yes Neurological History: No Pertinent History ENT History: No Pertinent History Cardiac History: Hypertension Respiratory History: No Pertinent History Endocrine Medical History: Diabetes Type I Musculoskeletal History: No Pertinent History GI Medical History: No Pertinent History History: No Pertinent History Psycho-Social History: Anxiety, Depression Male Reproductive Disorders: No Pertinent History Other Medical History: DKA - Past Surgical History Past Surgical History: No Neuro Surgical History: No Pertinent History Cardiac: No Pertinent History Respiratory: No Pertinent History Gastrointestinal: No Pertinent History Genitourinary: No Pertinent History Musculoskeletal: No Pertinent History Male Surgical History: No Pertinent History Other Surgical History: . - Social History Smoking Status: Never smoker Exposure to second hand smoke: No Drug Use: none Patient Lives Alone: No Significant Family History: no pertinent family hx - Nursing Vital Signs Nursing Vital Signs: Initial Vital Signs Temperature 97.1 F 06/14/22 11:44 Pulse Rate 86 06/14/22 11:44 Respiratory Rate 17 06/14/22 11:44 Blood Pressure 203/111 06/14/22 11:44 O2 Sat by Pulse Oximetry 100 06/14/22 11:44 Pain Scale Pain Intensity 0 Hypertensive - Physical Exam General Appearance: no apparent distress Eye Exam: PERRL/EOMI, eyes nml inspection Ears, Nose, Throat Exam: normal ENT inspection, TMs normal, pharynx normal, moist mucous membranes Neck Exam: normal inspection, non-tender, supple, full range of motion, No meningismus, No mass, No Brudzinski, No Kernig's, No carotid bruit Respiratory Exam: normal breath sounds, lungs clear, airway intact Cardiovascular Exam: regular rate/rhythm, normal heart sounds, normal peripheral pulses, capillary refill <2 sec, No murmur Gastrointestinal/Abdomen Exam: soft, normal bowel sounds, No tenderness Back Exam: normal inspection, normal range of motion, No CVA tenderness, No vertebral tenderness Extremity Exam: normal inspection, normal range of motion Neurologic Exam: alert, oriented x 3, cooperative, economic development coordinator II-XII nml as tested, normal mood/affect, nml cerebellar function, nml station & gait, sensation nml Skin Exam: normal color, warm, dry, No rash Lymphatic Exam: No adenopathy SpO2 Interpretation: normal SpO2: 99 O2 Delivery: Room Air - Course Nursing assessment & vital signs reviewed: Yes Ordered Tests: Active Orders 24 hr Category Date Time Status CBC W DIFF Stat Lab 06/14/22 12:05 Completed CMP Stat Lab 06/14/22 12:05 Completed CULTURE,URINE Stat Lab 06/14/22 11:44 Received Lactic Acid Stat Lab 06/14/22 12:25 Completed POCT GLUCOSE Stat Lab 06/14/22 11:55 Completed PROTIME WITH INR Stat Lab 06/14/22 12:50 Completed PTT Stat Lab 06/14/22 12:50 Completed TROPONIN Q4H Lab 06/14/22 12:50 Completed UA W/RFX CULTURE Stat Lab 06/14/22 11:44 Completed Medication Summary Discontinued Medications Generic Name Dose Route Start Last Admin Trade Name Freq PRN Reason Stop Dose Admin Amlodipine Besylate 10 mg 06/14/22 13:53 06/14/22 14:08 Amlodipine Besylate 5 Mg Tablet PO 06/14/22 13:54 10 mg STAT ONE Administration Amlodipine Besylate Confirm 06/14/22 14:00 Amlodipine Besylate 5 Mg Tablet Administered 06/14/22 14:01 Dose 5 mg .ROUTE .STK-MED ONE Amlodipine Besylate Confirm 06/14/22 14:09 Amlodipine Besylate 5 Mg Tablet Administered 06/14/22 14:10 Dose 5 mg .ROUTE .STK-MED ONE Carvedilol 25 mg 06/14/22 13:56 06/14/22 14:08 Carvedilol 6.25 Mg Tablet PO 06/14/22 13:57 25 mg STAT ONE Administration Sodium Chloride 1,000 mls @ 999 mls/hr 06/14/22 12:58 06/14/22 14:13 Sodium Chloride 0.9% 1000 Ml IV 06/14/22 13:58 Infused .Q1H1M STA Infusion Sodium Chloride Confirm 06/14/22 13:09 Sodium Chloride 0.9% 1000 Ml Administered 06/14/22 13:10 Dose 1,000 mls @ ud .ROUTE .STK-MED ONE Labetalol HCl 20 mg 06/14/22 12:11 06/14/22 12:33 Labetalol Hcl 20 Mg/4 Ml Disp.Syringe IV 06/14/22 12:12 20 mg STAT ONE Administration Labetalol HCl Confirm 06/14/22 12:24 Labetalol Hcl 20 Mg/4 Ml Disp.Syringe Administered 06/14/22 12:25 Dose 20 mg IV .STK-MED ONE Labetalol HCl 40 mg 06/14/22 13:13 06/14/22 13:21 Labetalol Hcl 20 Mg/4 Ml Disp.Syringe IV 06/14/22 13:14 40 mg STAT ONE Administration Labetalol HCl Confirm 06/14/22 13:20 Labetalol Hcl 20 Mg/4 Ml Disp.Syringe Administered 06/14/22 13:21 Dose 40 mg IV .STK-MED ONE Ondansetron HCl Confirm 06/14/22 12:24 Ondansetron Hcl 4 Mg/2 Ml Vial Administered 06/14/22 12:25 Dose 4 mg .ROUTE .STK-MED ONE Ondansetron HCl 4 mg 06/14/22 12:30 06/14/22 12:33 Ondansetron Hcl 4 Mg/2 Ml Vial IV 06/14/22 12:31 4 mg STAT ONE Administration Prochlorperazine Edisylate 10 mg 06/14/22 13:03 06/14/22 13:10 Prochlorperazine Edisylate 10 Mg/2 Ml Vial IV 06/14/22 13:04 10 mg STAT ONE Administration Prochlorperazine Edisylate Confirm 06/14/22 13:09 Prochlorperazine Edisylate 10 Mg/2 Ml Vial Administered 06/14/22 13:10 Dose 10 mg .ROUTE .STK-MED ONE Lab/Rad Data: Laboratory Result Diagrams 06/14/22 12:05 06/14/22 12:05 Laboratory Results 06/14/22 06/14/22 06/14/22 Range/Units 12:50 12:50 12:25 WBC (4.0-10.5) x10^3/uL RBC (4.1-5.6) x10^6/uL Hgb (12.5-18.0) g/dL Hct (42-50) % MCV (78-100) fL MCH (26-32) pg MCHC (32-36) g/dL RDW (11.5-14.0) % Plt Count (150-450) x10^3/uL MPV (7.5-11.0) fL Gran % (36.0-66.0) % Immature Gran % (Auto) (0.00-0.4) % Nucleat RBC Rel Count (0.00-0.1) % Eos # (Auto) (0-0.5) x10^3/uL Immature Gran # (Auto) (0.00-0.03) x10^3u/L Absolute Lymphs (auto) (1.0-4.6) x10^3/uL Absolute Monos (auto) (0.0-1.3) x10^3/uL Absolute Nucleated RBC (0.00-0.01) x10^3u/L Lymphocytes % (24.0-44.0) % Monocytes % (0.0-12.0) % Eosinophils % (0.00-5.0) % Basophils % (0.0-0.4) % Absolute Granulocytes (1.4-6.9) x10^3/uL Basophils # (0-0.4) x10^3/uL PT 10.2 (9.4-12.5) SECONDS INR 0.96 (0.8-3.0) APTT 25.1 (25.1-36.5) SECONDS Sodium (137-145) mmol/L Potassium (3.5-5.1) mmol/L Chloride (98-107) mmol/L Carbon Dioxide (22-30) mmol/L Anion Gap (5-15) MEQ/L BUN (9-20) mg/dL Creatinine (0.66-1.25) mg/dL Estimated GFR ML/MIN Glucose (74-106) mg/dL POC Glucometer (74 to 106) mg/dL Lactic Acid 1.5 (0.4-2.0) Calcium (8.4-10.2) mg/dL Total Bilirubin (0.2-1.3) mg/dL AST (17-59) U/L ALT (0-50) U/L Alkaline Phosphatase (38-126) U/L Troponin I < 0.012 (0.000-0.034) ng/mL Serum Total Protein (6.3-8.2) g/dL Albumin (3.5-5.0) g/dL Urinalys Dipstick Clnc Urine Color (YELLOW) Urine Appearance (CLEAR) Urine pH (5-6) Ur Specific [place] (1.005-1.025) POC Urine Protein Conf (Negative) Urine Ketones (NEGATIVE) Urine Nitrite (NEGATIVE) Urine Bilirubin (NEGATIVE) Urine Urobilinogen (0-1) mg/dL Urine Leukocytes (NEGATIVE) Urine WBC (Auto) (0-5) /HPF Urine RBC (Auto) (0-2) /HPF U Epithel Cells (Auto) Urine Bacteria (Auto) Urine RBC (0-5) Tomas/ul Ur Culture Indicated? Urine Glucose (NEGATIVE) mg/dL 06/14/22 06/14/22 06/14/22 Range/Units 12:05 12:05 11:55 WBC 8.9 (4.0-10.5) x10^3/uL RBC 3.05 L (4.1-5.6) x10^6/uL Hgb 8.7 L (12.5-18.0) g/dL Hct 26.3 L (42-50) % MCV 86.2 (78-100) fL MCH 28.5 (26-32) pg MCHC 33.1 (32-36) g/dL RDW 11.9 (11.5-14.0) % Plt Count 421 (150-450) x10^3/uL MPV 8.3 (7.5-11.0) fL Gran % 74.4 H (36.0-66.0) % Immature Gran % (Auto) 0.8 H (0.00-0.4) % Nucleat RBC Rel Count 0.0 (0.00-0.1) % Eos # (Auto) 0.36 (0-0.5) x10^3/uL Immature Gran # (Auto) 0.07 H (0.00-0.03) x10^3u/L Absolute Lymphs (auto) 0.60 L (1.0-4.6) x10^3/uL Absolute Monos (auto) 1.19 (0.0-1.3) x10^3/uL Absolute Nucleated RBC 0.00 (0.00-0.01) x10^3u/L Lymphocytes % 6.8 L (24.0-44.0) % Monocytes % 13.4 H (0.0-12.0) % Eosinophils % 4.1 (0.00-5.0) % Basophils % 0.5 (0.0-0.4) % Absolute Granulocytes 6.61 (1.4-6.9) x10^3/uL Basophils # 0.04 (0-0.4) x10^3/uL PT (9.4-12.5) SECONDS INR (0.8-3.0) APTT (25.1-36.5) SECONDS Sodium 130 L (137-145) mmol/L Potassium 5.0 (3.5-5.1) mmol/L Chloride 99 (98-107) mmol/L Carbon Dioxide 26 (22-30) mmol/L Anion Gap 10.4 (5-15) MEQ/L BUN 45 H (9-20) mg/dL Creatinine 2.72 H (0.66-1.25) mg/dL Estimated GFR 28.3 ML/MIN Glucose 231 H (74-106) mg/dL POC Glucometer 221 H (74 to 106) mg/dL Lactic Acid (0.4-2.0) Calcium 8.4 (8.4-10.2) mg/dL Total Bilirubin 0.40 (0.2-1.3) mg/dL AST 19 (17-59) U/L ALT 13 (0-50) U/L Alkaline Phosphatase 147 H (38-126) U/L Troponin I (0.000-0.034) ng/mL Serum Total Protein 6.4 (6.3-8.2) g/dL Albumin 3.2 L (3.5-5.0) g/dL Urinalys Dipstick Clnc Urine Color (YELLOW) Urine Appearance (CLEAR) Urine pH (5-6) Ur Specific [place] (1.005-1.025) POC Urine Protein Conf (Negative) Urine Ketones (NEGATIVE) Urine Nitrite (NEGATIVE) Urine Bilirubin (NEGATIVE) Urine Urobilinogen (0-1) mg/dL Urine Leukocytes (NEGATIVE) Urine WBC (Auto) (0-5) /HPF Urine RBC (Auto) (0-2) /HPF U Epithel Cells (Auto) Urine Bacteria (Auto) Urine RBC (0-5) Tomas/ul Ur Culture Indicated? Urine Glucose (NEGATIVE) mg/dL 06/14/22 Range/Units 11:44 WBC (4.0-10.5) x10^3/uL RBC (4.1-5.6) x10^6/uL Hgb (12.5-18.0) g/dL Hct (42-50) % MCV (78-100) fL MCH (26-32) pg MCHC (32-36) g/dL RDW (11.5-14.0) % Plt Count (150-450) x10^3/uL MPV (7.5-11.0) fL Gran % (36.0-66.0) % Immature Gran % (Auto) (0.00-0.4) % Nucleat RBC Rel Count (0.00-0.1) % Eos # (Auto) (0-0.5) x10^3/uL Immature Gran # (Auto) (0.00-0.03) x10^3u/L Absolute Lymphs (auto) (1.0-4.6) x10^3/uL Absolute Monos (auto) (0.0-1.3) x10^3/uL Absolute Nucleated RBC (0.00-0.01) x10^3u/L Lymphocytes % (24.0-44.0) % Monocytes % (0.0-12.0) % Eosinophils % (0.00-5.0) % Basophils % (0.0-0.4) % Absolute Granulocytes (1.4-6.9) x10^3/uL Basophils # (0-0.4) x10^3/uL PT (9.4-12.5) SECONDS INR (0.8-3.0) APTT (25.1-36.5) SECONDS Sodium (137-145) mmol/L Potassium (3.5-5.1) mmol/L Chloride (98-107) mmol/L Carbon Dioxide (22-30) mmol/L Anion Gap (5-15) MEQ/L BUN (9-20) mg/dL Creatinine (0.66-1.25) mg/dL Estimated GFR ML/MIN Glucose (74-106) mg/dL POC Glucometer (74 to 106) mg/dL Lactic Acid (0.4-2.0) Calcium (8.4-10.2) mg/dL Total Bilirubin (0.2-1.3) mg/dL AST (17-59) U/L ALT (0-50) U/L Alkaline Phosphatase (38-126) U/L Troponin I (0.000-0.034) ng/mL Serum Total Protein (6.3-8.2) g/dL Albumin (3.5-5.0) g/dL Urinalys Dipstick Clnc MAIN LAB Urine Color YELLOW (YELLOW) Urine Appearance CLEAR (CLEAR) Urine pH 6.0 (5-6) Ur Specific [place] 1.025 (1.005-1.025) POC Urine Protein Conf >=300 A (Negative) Urine Ketones NEGATIVE (NEGATIVE) Urine Nitrite NEGATIVE (NEGATIVE) Urine Bilirubin NEGATIVE (NEGATIVE) Urine Urobilinogen 0.2 (0-1) mg/dL Urine Leukocytes NEGATIVE (NEGATIVE) Urine WBC (Auto) 0-2 (0-5) /HPF Urine RBC (Auto) 6-10 A (0-2) /HPF U Epithel Cells (Auto) Not Reportable Urine Bacteria (Auto) Not Reportable Urine RBC SMALL A (0-5) Tomas/ul Ur Culture Indicated? YES Urine Glucose 250 A (NEGATIVE) mg/dL - Progress Progress: improved Progress Note: 06/14/22 14:01 1L NS bolus 4mg IV Zofran w mild improvement 10mg IV Compazine w marked improvement in N/V BP decreased w labetalol 20mg IV/40mg IV Pt given Coreg 25mg po/Norvasc 10mg po Counseled pt/family regarding: lab results, diagnosis, need for follow-up - Departure Departure Disposition: Home Clinical Impression: Hypertension, Nausea & vomiting Condition: Stable Critical Care Time: No Referrals: VALENTINA STARKS [Primary Care Provider] - Follow up/PCP as directed Instructions: Nausea and Vomiting, Adult (DC), Malignant Hypertension (DC) Additional Instructions: Follow up with Dr. Maxwell Continue with current medications Return to ER for worsening of condition Zofran for nausea/vomiting Prescriptions: Ondansetron ODT 4 MG [Zofran Odt 4 mg] 4 mg PO Q6H PRN PRN #10 tablet PRN Reason: Nausea
== END 2022-06-14 14:14 | disposition home or self-care (01) ==
LOC: ED 11:25
DX: I10 Essential (primary) hypertension (principal); R11.2 Nausea with vomiting, unspecified; E10.9 Type 1 diabetes mellitus without complications; Z79.4 Long term (current) use of insulin; Z79.899 Other long term (current) drug therapy; Z28.310 Unvaccinated for COVID-19
CPT/HCPCS: 36000; 36415; 80053; 81015; 82947; 83605; 84484; 85025; 85610; 85730; 87086; 96360; 96374; 96375; 96376; 99284; J2405; A9270-GY

== ENCOUNTER 2022-06-22 00:17 | Inpatient (IN) | payer OTHER ==
[2022-06-22] MEDS ORDERED: Sodium Chloride 0.9% 1000 ML 1,000 ML IV STA ×3 (00:43→08:39)
[2022-06-22] MEDS ORDERED: Zofran 4 MG/2 ML VIAL IV ONE (00:43)
[2022-06-22] MEDS ORDERED: PROTONIX 40 MG IV IV ONE ×2 (00:44→01:11)
[2022-06-22] MEDS ORDERED: MORPHINE SULFATE 2 MG INJ IV ONE (00:44)
[2022-06-22 01:06] LABS: Hematocrit 31.3 % (42-50); Hemoglobin 9.4 g/dL (12.5-18.0); Mean Cell Volume 94.8 fL (78-100); Mean Corpuscular Hemoglobin 28.5 pg (26-32); Mean Platelet Volume 8.6 fL (7.5-11.0); Platelet Count 642 x10^3/uL (150-450); Red Cell Distribution Width 12.1 % (11.5-14.0)
[2022-06-22] MEDS ORDERED: Zofran 4 MG/2 ML VIAL ONE (01:11)
[2022-06-22] MEDS ORDERED: MORPHINE SULFATE 2 MG INJ ONE (01:11)
[2022-06-22] MEDS ORDERED: Sodium Chloride 0.9% 1000 ML 2,000 ML ONE (01:12)
[2022-06-22 01:13] LABS: A-aADO2 -2; ARTERIAL BLD GAS O2 SATURATION 98.7 % (95-100); ARTERIAL BLOOD GAS BASE EXCESS -7.5 (-2.0-2.0); ARTERIAL BLOOD GAS FIO2 21 %; ARTERIAL BLOOD GAS PCO2 26 mmHg (35-45); ARTERIAL BLOOD GAS PO2 119 mmHg (75-100); CARBOXYHEMOGLOBIN 1.4 % THgb (0.0-6.9); HCO3- 16.1 (22-28); HGB O2 SAT 96.6 g/dF (94-100); Methhemoglobin 0.7 % (1.4-1.5)
[2022-06-22 01:14] LABS: ABG POTASSIUM 6.7 (3.5-5.1)
[2022-06-22 01:15] LABS: White Blood Count 28.7 x10^3/uL (4.0-10.5)
[2022-06-22 01:15] LABS: ABG SITE LEFT BRACHIAL; ALLEN TEST OK? YES
[2022-06-22 01:37] LABS: ALBUMIN 4.2 g/dL (3.5-5.0); ALKALINE PHOSPHATASE 212 U/L (38-126); BLOOD UREA NITROGEN 80 mg/dL (9-20); CHLORIDE < 65 mmol/L (98-107); Calcium 8.3 mg/dL (8.4-10.2); Creatinine 1 6.49 mg/dL (0.66-1.25); EST GLOMERULAR FILTRATION RATE 10.4 ML/MIN; LIPASE 586 U/L (23-300); MAGNESIUM 2.4 mg/dL (1.6-2.3); SGOT/AST 20 U/L (17-59); SGPT/ALT 21 U/L (0-50); Total Protein 6.7 g/dL (6.3-8.2)
[2022-06-22 01:54] LABS: INFLUENZA A NEGATIVE (NEGATIVE); INFLUENZA B NEGATIVE (NEGATIVE); RESPIRATORY SYNCTIAL VIRUS NEGATIVE (Negative); SARS-CoV-2 Xpert Express NEGATIVE (NEGATIVE)
[2022-06-22 02:03] LABS: BAND 4 % (0.0-2.0); Hypochromia 1+; Lymphocytes 3 % (24-44); Monocyte 8 % (0.0-12.0); Platelet Estimate NORMAL (NORMAL); Total Cells Counted 100
[2022-06-22 02:12] LABS: Glucose 1360 mg/dL (74-106); SODIUM 108 mmol/L (137-145)
[2022-06-22 02:13] LABS: Carbon Dioxide 14 mmol/L (22-30); Potassium 6.5 mmol/L (3.5-5.1)
[2022-06-22] MEDS ORDERED: HUMULIN R IV ONE ×2 (02:54→03:02)
[2022-06-22] MEDS ORDERED: HUMULIN R 100 UNIT in Sodium Chloride 0.9% 100 ML IV PRN (02:54)
--- NOTE | 2022-06-22 02:59 | ERPHSYRPT ---
- History of Present Illness Time Seen by Provider: 06/22/22 00:43 Historian: patient Exam Limitations: no limitations Patient Subjective Stated Complaint: pt c/o nausea and vomiting x3 days. states he has not been taking any insulin and has not been checking his blood sugars at home Triage Nursing Assessment: pt came into the er via wheelchair; pt awake and alert; answers most questions with head nod; transfers to stretcher per self; c/o vomiting; pt states pain in abd; active bowel sounds in all quads; skin P,D,W; blood sugar on arrival reads HI; tachycardic Physician History: 36 years old type I diabetic noncompliant presented in the ER with 3 days history of nausea vomiting with some abdominal pain with progressive worsening. Patient reports he is not able to hold anything down. Feeling weak fatigued tir ed and dehydrated. No fever or chills reported. Denies any known sick contact. Timing/Duration: day(s) (3), gradual onset, worse Activities at Onset: rest Quality: aching Abdominal Pain Onset Location: generalized abdomen Pain Radiation: no radiation Severity of Pain-Max: moderate Severity of Pain-Current: mild Modifying Factors: Improves With: vomiting Associated Symptoms: fatigue, nausea, vomiting Previous symptoms: same symptoms as today Allergies/Adverse Reactions: No Known Drug Allergies Allergy (Verified 06/14/22 11:42) Home Medications: Insulin Lispro [Admelog Solostar] 10 - 15 unit SQ TIDWMEALS 03/30/21 [History] Amlodipine Besylate 5 mg [Norvasc 5 mg] 10 mg PO DAILY 06/04/22 [History] Carvedilol [Coreg ] 6.25 mg PO BID 06/04/22 [History] Hydralazine HCl 100 mg PO TID 06/04/22 [History] Lisinopril 10 mg [Zestril 10 MG] 10 mg PO DAILY 06/05/22 [History] Hx Tetanus, Diphtheria Vaccination/Date Given: Yes Hx Influenza Vaccination/Date Given: No Hx Pneumococcal Vaccination/Date Given: Yes (10/01/2016) Immunizations Up to Date: Yes Travel Risk - International Travel Have you traveled outside of the country in past 3 weeks: No - Coronavirus Screening Are you exhibiting any of the following symptoms?: No Close contact with a COVID-19 positive Pt in past 14-21 Days: No - Vaccine Status Have you recieved a Covid-19 vaccination: No - Review of Systems Constitutional: Fatigue, Weakness Eyes: No Symptoms Ears, Nose, & Throat: No Symptoms Respiratory: No Symptoms Cardiac: No Symptoms Abdominal/Gastrointestinal: Abdominal Pain, Nausea, Vomiting Genitourinary Symptoms: No Symptoms Musculoskeletal: Myalgias Skin: No Symptoms Neurological: No Symptoms Psychological: No Symptoms Endocrine: No Symptoms Hematologic/Lymphatic: No Symptoms Immunological/Allergic: No Symptoms - Past Medical History Pertinent Past Medical History: Yes Neurological History: No Pertinent History ENT History: No Pertinent History Cardiac History: Hypertension Respiratory History: No Pertinent History Endocrine Medical History: Diabetes Type I Musculoskeletal History: No Pertinent History GI Medical History: No Pertinent History History: No Pertinent History Psycho-Social History: Anxiety, Depression Male Reproductive Disorders: No Pertinent History Other Medical History: DKA - Past Surgical History Past Surgical History: No Neuro Surgical History: No Pertinent History Cardiac: No Pertinent History Respiratory: No Pertinent History Gastrointestinal: No Pertinent History Genitourinary: No Pertinent History Musculoskeletal: No Pertinent History Male Surgical History: No Pertinent History Other Surgical History: . - Social History Smoking Status: Never smoker Exposure to second hand smoke: No Drug Use: none Patient Lives Alone: No Significant Family History: no pertinent family hx - Nursing Vital Signs Nursing Vital Signs: Initial Vital Signs Temperature 97.0 F 06/22/22 00:27 Pulse Rate 103 H 06/22/22 00:27 Respiratory Rate 16 06/22/22 00:27 Blood Pressure 136/77 06/22/22 00:27 O2 Sat by Pulse Oximetry 99 06/22/22 00:27 Pain Scale Pain Intensity 7 - Physical Exam General Appearance: no apparent distress Eye Exam: PERRL/EOMI Ears, Nose, Throat Exam: normal ENT inspection, TMs normal, pharynx normal, moist mucous membranes Neck Exam: normal inspection, non-tender, supple, full range of motion Respiratory Exam: normal breath sounds, lungs clear Cardiovascular Exam: regular rate/rhythm, normal heart sounds Gastrointestinal/Abdomen Exam: soft, normal bowel sounds, tenderness (Minimal generalized tenderness) Male Genitalia Exam: normal genitalia Back Exam: normal inspection, normal range of motion Extremity Exam: normal inspection, normal range of motion, pelvis stable Neurologic Exam: alert, oriented x 3, cooperative Skin Exam: normal color SpO2 Interpretation: normal SpO2: 99 O2 Delivery: Room Air - Course EKG Interpreted by Me: RATE (106), Sinus Tach, NORMAL AXIS, prolonged QT interval, Non-specific ST Changes, Other (PVCs, tall T waves) Ordered Tests: Medication Summary Generic Name Dose Route Start Last Admin Trade Name Freq PRN Reason Stop Dose Admin Acetaminophen 650 mg 06/22/22 04:07 Acetaminophen 325 Mg Tablet PO 07/22/22 04:06 Q4H PRN PRN PAIN AND/OR FEVER Amlodipine Besylate 10 mg 06/24/22 10:00 06/28/22 15:07 Amlodipine Besylate 5 Mg Tablet PO 07/24/22 09:59 Not Given QAM XIN Carvedilol 6.25 mg 06/22/22 10:00 06/28/22 15:52 Carvedilol 6.25 Mg Tablet PO 07/22/22 09:59 6.25 mg BID XIN Administration Clonidine 0.1 mg 06/24/22 11:32 06/26/22 13:09 Clonidine Hcl 0.1 Mg Tablet PO 07/24/22 11:31 0.1 mg Q4H PRN PRN Administration HYPERTENSION Clonidine HCl 0.2 mg 06/28/22 15:00 06/28/22 15:52 Clonidine Hcl 0.2 Mg Patch TOP 07/28/22 14:59 0.2 mg Q7D XIN Administration Enoxaparin Sodium 40 mg 06/28/22 16:00 06/28/22 15:52 Enoxaparin Sodium 40 Mg/0.4 Ml Syringe SQ 07/28/22 15:59 40 mg DAILY XIN Administration Hydralazine HCl 100 mg 06/24/22 15:00 06/28/22 15:07 Hydralazine Hcl 25 Mg Tablet PO 07/24/22 14:59 Not Given TID XIN Cefepime HCl 2 g/ Dextrose 100 mls @ 200 mls/hr 06/28/22 15:30 06/28/22 15:52 IV 07/28/22 15:29 200 mls/hr Q12HT XIN Administration Potassium Chloride/Sodium Chloride 1,000 mls @ 125 mls/hr 06/28/22 17:15 06/28/22 17:30 Sodium Chloride 0.9% W/ 20 Meq Kcl/Liter IV 07/28/22 17:14 125 mls/hr .Q8H XIN Administration Insulin Glargine 15 unit 06/26/22 22:00 06/27/22 21:06 Insulin Glargine 1 Unit SQ 07/26/22 21:59 15 unit HS XIN Administration Insulin Human Lispro 0 unit 06/26/22 13:03 06/28/22 11:57 Insulin Lispro 1 Unit SQ 07/26/22 13:02 10 unit UD PRN Administration HYPERGLYCEMIA Lisinopril 20 mg 06/24/22 07:10 06/28/22 15:07 Lisinopril 10 Mg Tablet PO 07/22/22 09:59 Not Given DAILY XIN Nicotine 21 mg 06/23/22 11:00 06/28/22 12:01 Nicotine 21 Mg/Patch Patch TOP 07/23/22 10:59 Not Given Q24H XIN Ondansetron HCl 4 mg 06/24/22 12:00 06/26/22 09:47 Ondansetron Hcl 4 Mg/2 Ml Vial IV 07/24/22 11:58 4 mg Q4HPRN PRN Administration NAUSEA/VOMITING Pantoprazole Sodium 40 mg 06/22/22 10:00 06/27/22 21:06 Pantoprazole 40 Mg Vial IV 07/22/22 09:59 40 mg Q24H22 XIN Administration Prochlorperazine Edisylate 5 mg 06/22/22 08:39 06/26/22 13:10 Prochlorperazine Edisylate 10 Mg/2 Ml Vial IV 07/22/22 08:38 5 mg Q4H PRN PRN Administration NAUSEA/VOMITING Discontinued Medications Generic Name Dose Route Start Last Admin Trade Name Freq PRN Reason Stop Dose Admin Hydralazine HCl 100 mg 06/22/22 10:00 06/23/22 15:16 Hydralazine Hcl 25 Mg Tablet PO 07/22/22 09:59 Not Given TID XIN Hydralazine HCl 10 mg 06/23/22 15:30 06/24/22 08:37 Hydralazine Hcl 20 Mg/Ml Vial IV 07/23/22 15:29 10 mg Q6H XIN Administration Hydralazine HCl 50 mg 06/24/22 15:00 Hydralazine Hcl 25 Mg Tablet PO 07/24/22 14:59 TID XIN Sodium Chloride 1,000 mls @ 999 mls/hr 06/22/22 00:43 06/22/22 03:54 Sodium Chloride 0.9% 1000 Ml IV 06/22/22 01:43 Infused .Q1H1M STA Infusion Sodium Chloride 1,000 mls @ 999 mls/hr 06/22/22 00:45 06/22/22 03:54 Sodium Chloride 0.9% 1000 Ml IV 06/22/22 01:45 Infused .Q1H1M STA Infusion Sodium Chloride Confirm 06/22/22 01:12 Sodium Chloride 0.9% 1000 Ml Administered 06/22/22 01:13 Dose 2,000 mls @ ud .ROUTE .STK-MED ONE Insulin Human Regular 100 unit 100 mls @ 7.05 mls/hr 06/22/22 02:54 06/23/22 12:06 / Sodium Chloride IV 07/22/22 02:53 0 unit/kg/hr .[id number] PRN 0 mls/hr DKA/HYPERGLYCEMIA Titration Protocol 0.1 UNIT/KG/HR Sodium Chloride Confirm 06/22/22 03:08 Sodium Chloride 0.9% Administered 06/22/22 03:09 Dose 100 mls @ ud .ROUTE .STK-MED ONE Piperacillin Sod/Tazobactam 100 mls @ 200 mls/hr 06/22/22 03:22 06/22/22 03:44 Sod 3.375 gm/ Sodium Chloride IV 06/22/22 03:51 200 mls/hr STAT ONE Administration Sodium Chloride Confirm 06/22/22 03:44 Sodium Chloride 100ml Mini-Bag Plus Administered 06/22/22 03:45 Dose 100 mls @ ud IV .STK-MED ONE Sodium Chloride Confirm 06/22/22 05:23 Sodium Chloride 0.9% 1000 Ml Administered 06/22/22 05:24 Dose 1,000 mls @ ud .ROUTE .STK-MED ONE Sodium Chloride 1,000 mls @ 200 mls/hr 06/22/22 07:30 06/22/22 09:41 Sodium Chloride 0.9% 1000 Ml IV 07/22/22 07:29 Not Given .Q5H XIN Potassium Chloride 100 mls @ 50 mls/hr 06/22/22 08:00 06/22/22 09:25 Potassium Chloride 20 Meq In Water 100ml IV 06/22/22 11:59 50 mls/hr Q2H XIN Administration Sodium Chloride 1,000 mls @ 999 mls/hr 06/22/22 08:39 06/22/22 08:43 Sodium Chloride 0.9% 1000 Ml IV 06/22/22 09:39 999 mls/hr .Q1H1M STA Administration Potassium Chloride/Sodium Chloride 1,000 mls @ 150 mls/hr 06/22/22 08:45 06/22/22 09:25 Sodium Chloride 0.9% W/ 20 Meq Kcl/Liter IV 07/22/22 08:44 150 mls/hr .Q6H40M XIN Administration Potassium Chloride 20 meq in 100 mls @ 50 mls/hr 06/22/22 15:00 06/22/22 16:24 Potassium Chloride 20 Meq In Water 100ml IV 06/22/22 18:59 50 mls/hr Q2H XIN Administration Potassium Chloride/Dextrose/Sod Cl 1,000 mls @ 100 mls/hr 06/22/22 15:30 06/24/22 05:06 D5w/0.45ns W/ 20meq Kcl 1000 Ml IV 07/22/22 15:29 150 mls/hr .Q10H XIN Administration Potassium Chloride/Dextrose/Sod Cl 1,000 mls @ 100 mls/hr 06/24/22 11:30 06/25/22 20:17 Dextrose 5% -Nacl 0.9% 1000 Ml + Kcl 20 Meq IV 07/24/22 11:29 Not Given .Q10H XIN Sodium Chloride 1,000 mls @ 100 mls/hr 06/25/22 08:15 06/27/22 03:45 Sodium Chloride 0.9% 1000 Ml IV 07/25/22 08:14 100 mls/hr .Q10H XIN Administration Insulin Human Lispro 0 unit 06/23/22 11:41 06/26/22 09:47 Insulin Lispro 1 Unit SQ 07/23/22 11:40 4 unit UD PRN Administration HYPERGLYCEMIA Insulin Human Regular 10 unit 06/22/22 02:54 06/22/22 03:02 Insulin Regular, Human 1 Unit IV 06/22/22 02:55 Not Given STAT ONE Insulin Human Regular 7 unit 06/22/22 03:02 06/22/22 03:09 Insulin Regular, Human 1 Unit IV 06/22/22 03:03 7 unit STAT ONE Administration Insulin Human Regular Confirm 06/22/22 03:08 Insulin Regular, Human 1 Unit Administered 06/22/22 03:09 Dose 107 unit .ROUTE .STK-MED ONE Lisinopril 10 mg 06/22/22 10:00 06/23/22 11:10 Lisinopril 10 Mg Tablet PO 07/22/22 09:59 Not Given DAILY XIN Morphine Sulfate 2 mg 06/22/22 00:44 06/22/22 02:53 Morphine Sulfate 2 Mg/Ml Inj IV 06/22/22 00:45 2 mg STAT ONE Administration Morphine Sulfate Confirm 06/22/22 01:11 Morphine Sulfate 2 Mg/Ml Inj Administered 06/22/22 01:12 Dose 2 mg .ROUTE .STK-MED ONE Morphine Sulfate 2 mg 06/22/22 04:07 06/22/22 16:35 Morphine Sulfate 2 Mg/Ml Inj IV 06/27/22 04:06 2 mg Q4H PRN PRN Administration PAIN Ondansetron HCl 4 mg 06/22/22 00:43 06/22/22 02:53 Ondansetron Hcl 4 Mg/2 Ml Vial IV 06/22/22 00:44 Not Given STAT ONE Ondansetron HCl Confirm 06/22/22 01:11 Ondansetron Hcl 4 Mg/2 Ml Vial Administered 06/22/22 01:12 Dose 4 mg .ROUTE .STK-MED ONE Ondansetron HCl 4 mg 06/22/22 03:02 06/22/22 03:10 Ondansetron Hcl 4 Mg/2 Ml Vial IM 06/22/22 03:03 4 mg STAT ONE Administration Ondansetron HCl 4 mg 06/22/22 04:07 06/24/22 08:37 Ondansetron Hcl 4 Mg/2 Ml Vial IV 07/22/22 04:06 4 mg Q6H PRN PRN Administration NAUSEA/VOMITING Pantoprazole Sodium 40 mg 06/22/22 00:44 06/22/22 02:53 Pantoprazole 40 Mg Vial IV 06/22/22 00:45 40 mg STAT ONE Administration Pantoprazole Sodium Confirm 06/22/22 01:11 Pantoprazole 40 Mg Vial Administered 06/22/22 01:12 Dose 40 mg IV .STK-MED ONE Piperacillin Sod/Tazobactam Sod Confirm 06/22/22 03:43 Piperacillin/Tazobactam Sodium 3.375 Gm Vial Administered 06/22/22 03:44 Dose 3.375 gm IV .[facility] ONE Lab/Rad Data: Laboratory Result Diagrams 06/22/22 01:01 06/22/22 01:01 Laboratory Results 06/22/22 06/22/22 06/22/22 Range/Units 03:49 03:10 01:10 WBC (4.0-10.5) x10^3/uL RBC (4.1-5.6) x10^6/uL Hgb (12.5-18.0) g/dL Hct (42-50) % MCV (78-100) fL MCH (26-32) pg MCHC (32-36) g/dL RDW (11.5-14.0) % Plt Count (150-450) x10^3/uL MPV (7.5-11.0) fL Segmented Neutrophils (36.-66.) % Band Neutrophils (0.0-2.0) % Lymphocytes (Manual) (24-44) % Monocytes (Manual) (0.0-12.0) % Hypochromia Platelet Estimate (NORMAL) RBC Morphology Puncture Site pCO2 (35-45) mmHg pO2 (75-100) mmHg Base Excess (-2.0-2.0) O2 Saturation (94-100) g/dF ABG pH (7.35-7.45) ABG HCO3 (22-28) ABG O2 Sat (Measured) (95-100) % Arnaldo Test A-a Gradient a/A Ratio Hemoglobin Carboxyhemoglobin (0.0-6.9) % THgb Methemoglobin (1.4-1.5) % Temperature C POC O2 Flow Rate % Sodium (137-145) mmol/L Potassium (3.5-5.1) mmol/L Chloride (98-107) mmol/L Carbon Dioxide (22-30) mmol/L BUN (9-20) mg/dL Creatinine (0.66-1.25) mg/dL Estimated GFR ML/MIN Glucose (74-106) mg/dL Lactic Acid 6.3 H (0.4-2.0) Calcium (8.4-10.2) mg/dL Magnesium (1.6-2.3) mg/dL Total Bilirubin (0.2-1.3) mg/dL AST (17-59) U/L ALT (0-50) U/L Alkaline Phosphatase (38-126) U/L Troponin I 0.059 H* (0.000-0.034) ng/mL Serum Total Protein (6.3-8.2) g/dL Albumin (3.5-5.0) g/dL Lipase (23-300) U/L Influenza Type A Ag NEGATIVE (NEGATIVE) Influenza Type B Ag NEGATIVE (NEGATIVE) RSV (PCR) NEGATIVE (Negative) SARS-CoV-2 (PCR) NEGATIVE (NEGATIVE) 06/22/22 06/22/22 06/22/22 Range/Units 01:05 01:05 01:01 WBC (4.0-10.5) x10^3/uL RBC (4.1-5.6) x10^6/uL Hgb (12.5-18.0) g/dL Hct (42-50) % MCV (78-100) fL MCH (26-32) pg MCHC (32-36) g/dL RDW (11.5-14.0) % Plt Count (150-450) x10^3/uL MPV (7.5-11.0) fL Segmented Neutrophils (36.-66.) % Band Neutrophils (0.0-2.0) % Lymphocytes (Manual) (24-44) % Monocytes (Manual) (0.0-12.0) % Hypochromia Platelet Estimate (NORMAL) RBC Morphology Puncture Site LEFT BRACHIAL pCO2 26 L (35-45) mmHg pO2 119 H (75-100) mmHg Base Excess -7.5 L (-2.0-2.0) O2 Saturation 96.6 (94-100) g/dF ABG pH 7.40 (7.35-7.45) ABG HCO3 16.1 L* (22-28) ABG O2 Sat (Measured) 98.7 (95-100) % Arnaldo Test YES A-a Gradient -2 a/A Ratio 1.02 Hemoglobin 10.0 Carboxyhemoglobin 1.4 (0.0-6.9) % THgb Methemoglobin 0.7 L (1.4-1.5) % Temperature 37.0 C POC O2 Flow Rate 21 % Sodium (137-145) mmol/L Potassium 6.7 H* (3.5-5.1) mmol/L Chloride (98-107) mmol/L Carbon Dioxide (22-30) mmol/L BUN (9-20) mg/dL Creatinine (0.66-1.25) mg/dL Estimated GFR ML/MIN Glucose (74-106) mg/dL Lactic Acid 6.6 H (0.4-2.0) Calcium (8.4-10.2) mg/dL Magnesium (1.6-2.3) mg/dL Total Bilirubin (0.2-1.3) mg/dL AST (17-59) U/L ALT (0-50) U/L Alkaline Phosphatase (38-126) U/L Troponin I 0.032 (0.000-0.034) ng/mL Serum Total Protein (6.3-8.2) g/dL Albumin (3.5-5.0) g/dL Lipase (23-300) U/L Influenza Type A Ag (NEGATIVE) Influenza Type B Ag (NEGATIVE) RSV (PCR) (Negative) SARS-CoV-2 (PCR) (NEGATIVE) 06/22/22 06/22/22 Range/Units 01:01 01:01 WBC 28.7 H* (4.0-10.5) x10^3/uL RBC 3.30 L (4.1-5.6) x10^6/uL Hgb 9.4 L (12.5-18.0) g/dL Hct 31.3 L (42-50) % MCV 94.8 (78-100) fL MCH 28.5 (26-32) pg MCHC 30.0 L (32-36) g/dL RDW 12.1 (11.5-14.0) % Plt Count 642 H (150-450) x10^3/uL MPV 8.6 (7.5-11.0) fL Segmented Neutrophils 85 H (36.-66.) % Band Neutrophils 4 H (0.0-2.0) % Lymphocytes (Manual) 3 L (24-44) % Monocytes (Manual) 8 (0.0-12.0) % Hypochromia 1+ Platelet Estimate NORMAL (NORMAL) RBC Morphology ABNORMAL Puncture Site pCO2 (35-45) mmHg pO2 (75-100) mmHg Base Excess (-2.0-2.0) O2 Saturation (94-100) g/dF ABG pH (7.35-7.45) ABG HCO3 (22-28) ABG O2 Sat (Measured) (95-100) % Arnaldo Test A-a Gradient a/A Ratio Hemoglobin Carboxyhemoglobin (0.0-6.9) % THgb Methemoglobin (1.4-1.5) % Temperature C POC O2 Flow Rate % Sodium 108 L* (137-145) mmol/L Potassium 6.5 H* (3.5-5.1) mmol/L Chloride < 65 L (98-107) mmol/L Carbon Dioxide 14 L* (22-30) mmol/L BUN 80 H (9-20) mg/dL Creatinine 6.49 H (0.66-1.25) mg/dL Estimated GFR 10.4 ML/MIN Glucose 1360 H* (74-106) mg/dL Lactic Acid (0.4-2.0) Calcium 8.3 L (8.4-10.2) mg/dL Magnesium 2.4 H (1.6-2.3) mg/dL Total Bilirubin 1.30 (0.2-1.3) mg/dL AST 20 (17-59) U/L ALT 21 (0-50) U/L Alkaline Phosphatase 212 H (38-126) U/L Troponin I (0.000-0.034) ng/mL Serum Total Protein 6.7 (6.3-8.2) g/dL Albumin 4.2 (3.5-5.0) g/dL Lipase 586 H (23-300) U/L Influenza Type A Ag (NEGATIVE) Influenza Type B Ag (NEGATIVE) RSV (PCR) (Negative) SARS-CoV-2 (PCR) (NEGATIVE) - Progress Progress: unchanged, re-examined Progress Note: 06/22/22 02:57 36 years old is evaluated for worsening vomiting and has not been taking insulin. Patient has a blood sugar 1360 with normal pH and acute renal failure with a creatinine of 6.4 and pseudohyponatremia of 108 with corrected around 128. Has a white count of 28 with elevated lactate, does have UTI and given a dose of Zosyn. Given fluid boluses and started on insulin drip, patient has normal bicarb and mildly elevated gap with a serum osmolality in 320 consistent with HHS. Has potassium of 6.7 on ABG, given insulin and fluids and I hope it will improve. EKG did show tall T waves. Discussed with Dr. Perry, reviewed history, work-up and current management, agreed with admission. Discussed with : Marguerite Will see patient in: hospital (full admit) Counseled pt/family regarding: lab results, diagnosis, rad results - Departure Departure Disposition: In-patient Admission Clinical Impression: Hyperosmolar hyperglycemic state (HHS), Hyponatremia, Gastroparesis, Acute renal failure, Hyperkalemia Vomiting Qualifiers: Vomiting type: cyclical vomiting Nausea presence: with nausea Qualified Code(s): G43.A0 - Cyclical vomiting, not intractable Condition: Serious Critical Care Time: Yes Critical Care Time(excluding separately billable procedures): Critical 30-74 mins
[2022-06-22] MEDS ORDERED: Zofran 4 MG/2 ML VIAL IM ONE (03:02)
[2022-06-22] MEDS ORDERED: Sodium Chloride 0.9% 100 ML ONE (03:08)
[2022-06-22] MEDS ORDERED: HUMULIN R ONE (03:08)
[2022-06-22] MEDS ORDERED: PIPERACILLIN/TAZOBACTAM 3.375 GM in Sodium Chloride 100ML MINI-BAG PLUS 100 ML IV ONE (03:22)
[2022-06-22] MEDS ORDERED: PIPERACILLIN/TAZOBACTAM IV ONE (03:43)
[2022-06-22] MEDS ORDERED: Sodium Chloride 100ML MINI-BAG PLUS 100 ML IV ONE (03:44)
[2022-06-22] MEDS ORDERED: TYLENOL 325 MG PO PRN (04:07)
[2022-06-22] MEDS ORDERED: Sodium Chloride 0.9% 1000 ML 1,000 ML ONE (05:23)
[2022-06-22 05:26] LABS: Absolute Neutrophil Ct (ANC) 21.28 x10^3/uL (1.4-6.9); Basophil (Absolute #) 0.04 x10^3/uL (0-0.4); Eosinophil (Absolute #) 0 x10^3/uL (0-0.5); Hematocrit 28.4 % (42-50); Hemoglobin 8.8 g/dL (12.5-18.0); Lymphocyte (Absolute #) 0.44 x10^3/uL (1.0-4.6); Lymphocytes % 1.8 % (24.0-44.0); Mean Cell Volume 91.9 fL (78-100); Mean Corpuscular Hemoglobin 28.5 pg (26-32); Mean Platelet Volume 8.6 fL (7.5-11.0); Monocyte (Absolute #) 2.01 x10^3/uL (0.0-1.3); Monocytes % 8.4 % (0.0-12.0); Neutrophil % 89.1 % (36.0-66.0); Platelet Count 579 x10^3/uL (150-450); Red Blood Count 3.09 x10^6/uL (4.1-5.6); Red Cell Distribution Width 11.9 % (11.5-14.0); White Blood Count 23.9 x10^3/uL (4.0-10.5)
[2022-06-22 05:43] LABS: BLOOD UREA NITROGEN 88 mg/dL (9-20); CHLORIDE < 65 mmol/L (98-107); Calcium 7.3 mg/dL (8.4-10.2); Creatinine 1 6.46 mg/dL (0.66-1.25); EST GLOMERULAR FILTRATION RATE 10.4 ML/MIN; Potassium 3.8 mmol/L (3.5-5.1)
[2022-06-22 05:51] LABS: Glucose 1137 mg/dL (74-106); SODIUM 116 mmol/L (137-145)
[2022-06-22 05:52] LABS: Carbon Dioxide 13 mmol/L (22-30)
[2022-06-22 06:24] LABS: Slide Review 1 YES
[2022-06-22] MEDS: Zofran 4 MG/2 ML VIAL IV PRN ×3 (07:11→22:42)
[2022-06-22] MEDS: MORPHINE SULFATE 2 MG INJ IV PRN ×3 (07:15→16:35)
[2022-06-22] MEDS ORDERED: Sodium Chloride 0.9% 1000 ML 1,000 ML IV SCH (07:30)
[2022-06-22] MEDS: POTASSIUM CHLORIDE 20 mEq IN WATER 100ML 100 ML IV SCH ×2 (07:47→09:25)
[2022-06-22] MEDS: PROTONIX 40 MG IV IV SCH ×2 (08:17→21:10)
--- NOTE | 2022-06-22 08:39 | PCM.HP ---
History of Present Illness - Chief Complaint Chief Complaint: DKA History of Present Illness: is a 36 year old male with a longstanding history of poorly controlled type 1 diabetes and noncompliance, he is too ill to give a good history but has been ill with nausea, vomiting and abdominal pain for 3 days prior to arrival. admits he has not been taking any insulin, found to have profound dka and acute pancreatitis in ER this morning. . - Review of Systems Constitutional: No Fever, No Chills Respiratory: No Cough, No Short Of Breath Cardiac: No Chest Pain, No Edema, No Syncope Abdominal/Gastrointestinal: Abdominal Pain, Nausea, Vomiting Skin: No Rash All Other Systems: Reviewed and Negative Medications & Allergies Home Medications: Home Medication List Insulin Lispro [Admelog Solostar] 10 - 15 unit SQ TIDWMEALS 03/30/21 [History Confirmed 06/22/22] Amlodipine Besylate 5 mg [Norvasc 5 mg] 10 mg PO DAILY 06/04/22 [History Confirmed 06/22/22] Carvedilol [Coreg ] 6.25 mg PO BID 06/04/22 [History Confirmed 06/22/22] Hydralazine HCl 100 mg PO TID 06/04/22 [History Confirmed 06/22/22] Lisinopril 10 mg [Zestril 10 MG] 10 mg PO DAILY 06/05/22 [History Confirmed 06/22/22] Ondansetron ODT 4 MG [Zofran Odt 4 mg] 4 mg PO Q6H PRN PRN #10 tablet 06/14/22 [Rx Confirmed 06/22/22] Allergies/Adverse Reactions: Allergies Allergy/AdvReac Type Severity Reaction Status Date / Time No Known Drug Allergies Allergy Verified 06/14/22 11:42 - Past Medical History Past Medical History: Yes Neurological History: No Pertinent History ENT History: No Pertinent History Cardiac History: Hypertension Respiratory History: No Pertinent History Endocrine Medical History: Diabetes Type I Musculoskelatal History: No Pertinent History GI Medical History: No Pertinent History History: No Pertinent History Pyscho-Social History: Anxiety, Depression Male Reproductive Disorders: No Pertinent History Comment: DKA - Past Surgical History Past Surgical History: No Neuro Surgical History: No Pertinent History Cardiac History: No Pertinent History Respiratory Surgery: No Pertinent History GI Surgical History: No Pertinent History Genitourinary Surgical Hx: No Pertinent History Musculskeletal Surgical Hx: No Pertinent History Male Surgical History: No Pertinent History Other Surgical History: . - Social History Smoking Status: Never smoker Exposure to second hand smoke: No Alcohol: None Drug Use: none Significant Family History: no pertinent family hx - Physical Exam Vital Signs: Vital Signs - 24 hr Temp Pulse Resp BP Pulse Ox 06/22/22 08:21 92 L 06/22/22 08:00 98.7 F 93 H 20 126/59 97 06/22/22 07:31 91 H 06/22/22 06:46 91 H 131/77 06/22/22 05:59 92 H 18 128/77 98 06/22/22 05:19 96 H 18 126/73 97 06/22/22 03:21 102 H 105/52 99 06/22/22 03:11 99 06/22/22 02:17 117 H 136/90 99 06/22/22 01:43 99 H 150/80 99 06/22/22 00:27 97.0 F 103 H 16 136/77 99 General Appearance: moderate distress Neurologic Exam: alert Respiratory Exam: normal breath sounds, accessory muscle use Cardiovascular Exam: tachycardia Gastrointestinal/Abdomen Exam: soft, normal bowel sounds, No tenderness, No mass Extremity Exam: normal inspection, normal range of motion, pelvis stable Skin Exam: normal color, warm, dry, No rash Results - Labs Lab/Micro Results: Lab Results-Last 24 Hours 06/22/22 06/22/22 06/22/22 Range/Units 01:01 01:01 01:01 WBC 28.7 H* (4.0-10.5) x10^3/uL RBC 3.30 L (4.1-5.6) x10^6/uL Hgb 9.4 L (12.5-18.0) g/dL Hct 31.3 L (42-50) % MCV 94.8 (78-100) fL MCH 28.5 (26-32) pg MCHC 30.0 L (32-36) g/dL RDW 12.1 (11.5-14.0) % Plt Count 642 H (150-450) x10^3/uL MPV 8.6 (7.5-11.0) fL Gran % (36.0-66.0) % Immature Gran % (Auto) (0.00-0.4) % Nucleat RBC Rel Count (0.00-0.1) % Eos # (Auto) (0-0.5) x10^3/uL Immature Gran # (Auto) (0.00-0.03) x10^3u/L Absolute Lymphs (auto) (1.0-4.6) x10^3/uL Absolute Monos (auto) (0.0-1.3) x10^3/uL Absolute Nucleated RBC (0.00-0.01) x10^3u/L Lymphocytes % (24.0-44.0) % Monocytes % (0.0-12.0) % Eosinophils % (0.00-5.0) % Basophils % (0.0-0.4) % Absolute Granulocytes (1.4-6.9) x10^3/uL Segmented Neutrophils 85 H (36.-66.) % Band Neutrophils 4 H (0.0-2.0) % Lymphocytes (Manual) 3 L (24-44) % Monocytes (Manual) 8 (0.0-12.0) % Basophils # (0-0.4) x10^3/uL Hypochromia 1+ Platelet Estimate NORMAL (NORMAL) RBC Morphology ABNORMAL Puncture Site pCO2 (35-45) mmHg pO2 (75-100) mmHg Base Excess (-2.0-2.0) O2 Saturation (94-100) g/dF ABG pH (7.35-7.45) ABG HCO3 (22-28) ABG O2 Sat (Measured) (95-100) % Arnaldo Test A-a Gradient a/A Ratio Hemoglobin Carboxyhemoglobin (0.0-6.9) % THgb Methemoglobin (1.4-1.5) % Temperature C POC O2 Flow Rate % Sodium 108 L* (137-145) mmol/L Potassium 6.5 H* (3.5-5.1) mmol/L Chloride < 65 L (98-107) mmol/L Carbon Dioxide 14 L* (22-30) mmol/L BUN 80 H (9-20) mg/dL Creatinine 6.49 H (0.66-1.25) mg/dL Estimated GFR 10.4 ML/MIN Glucose 1360 H* (74-106) mg/dL Lactic Acid (0.4-2.0) Calcium 8.3 L (8.4-10.2) mg/dL Magnesium 2.4 H (1.6-2.3) mg/dL Total Bilirubin 1.30 (0.2-1.3) mg/dL AST 20 (17-59) U/L ALT 21 (0-50) U/L Alkaline Phosphatase 212 H (38-126) U/L Troponin I 0.032 (0.000-0.034) ng/mL Serum Total Protein 6.7 (6.3-8.2) g/dL Albumin 4.2 (3.5-5.0) g/dL Lipase 586 H (23-300) U/L Influenza Type A Ag (NEGATIVE) Influenza Type B Ag (NEGATIVE) RSV (PCR) (Negative) SARS-CoV-2 (PCR) (NEGATIVE) Slides for Path Review 06/22/22 06/22/22 06/22/22 Range/Units 01:05 01:05 01:10 WBC (4.0-10.5) x10^3/uL RBC (4.1-5.6) x10^6/uL Hgb (12.5-18.0) g/dL Hct (42-50) % MCV (78-100) fL MCH (26-32) pg MCHC (32-36) g/dL RDW (11.5-14.0) % Plt Count (150-450) x10^3/uL MPV (7.5-11.0) fL Gran % (36.0-66.0) % Immature Gran % (Auto) (0.00-0.4) % Nucleat RBC Rel Count (0.00-0.1) % Eos # (Auto) (0-0.5) x10^3/uL Immature Gran # (Auto) (0.00-0.03) x10^3u/L Absolute Lymphs (auto) (1.0-4.6) x10^3/uL Absolute Monos (auto) (0.0-1.3) x10^3/uL Absolute Nucleated RBC (0.00-0.01) x10^3u/L Lymphocytes % (24.0-44.0) % Monocytes % (0.0-12.0) % Eosinophils % (0.00-5.0) % Basophils % (0.0-0.4) % Absolute Granulocytes (1.4-6.9) x10^3/uL Segmented Neutrophils (36.-66.) % Band Neutrophils (0.0-2.0) % Lymphocytes (Manual) (24-44) % Monocytes (Manual) (0.0-12.0) % Basophils # (0-0.4) x10^3/uL Hypochromia Platelet Estimate (NORMAL) RBC Morphology Puncture Site LEFT BRACHIAL pCO2 26 L (35-45) mmHg pO2 119 H (75-100) mmHg Base Excess -7.5 L (-2.0-2.0) O2 Saturation 96.6 (94-100) g/dF ABG pH 7.40 (7.35-7.45) ABG HCO3 16.1 L* (22-28) ABG O2 Sat (Measured) 98.7 (95-100) % Arnaldo Test YES A-a Gradient -2 a/A Ratio 1.02 Hemoglobin 10.0 Carboxyhemoglobin 1.4 (0.0-6.9) % THgb Methemoglobin 0.7 L (1.4-1.5) % Temperature 37.0 C POC O2 Flow Rate 21 % Sodium (137-145) mmol/L Potassium 6.7 H* (3.5-5.1) mmol/L Chloride (98-107) mmol/L Carbon Dioxide (22-30) mmol/L BUN (9-20) mg/dL Creatinine (0.66-1.25) mg/dL Estimated GFR ML/MIN Glucose (74-106) mg/dL Lactic Acid 6.6 H (0.4-2.0) Calcium (8.4-10.2) mg/dL Magnesium (1.6-2.3) mg/dL Total Bilirubin (0.2-1.3) mg/dL AST (17-59) U/L ALT (0-50) U/L Alkaline Phosphatase (38-126) U/L Troponin I (0.000-0.034) ng/mL Serum Total Protein (6.3-8.2) g/dL Albumin (3.5-5.0) g/dL Lipase (23-300) U/L Influenza Type A Ag NEGATIVE (NEGATIVE) Influenza Type B Ag NEGATIVE (NEGATIVE) RSV (PCR) NEGATIVE (Negative) SARS-CoV-2 (PCR) NEGATIVE (NEGATIVE) Slides for Path Review 06/22/22 06/22/22 06/22/22 Range/Units 03:10 03:49 05:25 WBC (4.0-10.5) x10^3/uL RBC (4.1-5.6) x10^6/uL Hgb (12.5-18.0) g/dL Hct (42-50) % MCV (78-100) fL MCH (26-32) pg MCHC (32-36) g/dL RDW (11.5-14.0) % Plt Count (150-450) x10^3/uL MPV (7.5-11.0) fL Gran % (36.0-66.0) % Immature Gran % (Auto) (0.00-0.4) % Nucleat RBC Rel Count (0.00-0.1) % Eos # (Auto) (0-0.5) x10^3/uL Immature Gran # (Auto) (0.00-0.03) x10^3u/L Absolute Lymphs (auto) (1.0-4.6) x10^3/uL Absolute Monos (auto) (0.0-1.3) x10^3/uL Absolute Nucleated RBC (0.00-0.01) x10^3u/L Lymphocytes % (24.0-44.0) % Monocytes % (0.0-12.0) % Eosinophils % (0.00-5.0) % Basophils % (0.0-0.4) % Absolute Granulocytes (1.4-6.9) x10^3/uL Segmented Neutrophils (36.-66.) % Band Neutrophils (0.0-2.0) % Lymphocytes (Manual) (24-44) % Monocytes (Manual) (0.0-12.0) % Basophils # (0-0.4) x10^3/uL Hypochromia Platelet Estimate (NORMAL) RBC Morphology Puncture Site pCO2 (35-45) mmHg pO2 (75-100) mmHg Base Excess (-2.0-2.0) O2 Saturation (94-100) g/dF ABG pH (7.35-7.45) ABG HCO3 (22-28) ABG O2 Sat (Measured) (95-100) % Arnaldo Test A-a Gradient a/A Ratio Hemoglobin Carboxyhemoglobin (0.0-6.9) % THgb Methemoglobin (1.4-1.5) % Temperature C POC O2 Flow Rate % Sodium 116 L* D (137-145) mmol/L Potassium 3.8 D (3.5-5.1) mmol/L Chloride < 65 L (98-107) mmol/L Carbon Dioxide 13 L* (22-30) mmol/L BUN 88 H (9-20) mg/dL Creatinine 6.46 H (0.66-1.25) mg/dL Estimated GFR 10.4 ML/MIN Glucose 1137 H* (74-106) mg/dL Lactic Acid 6.3 H (0.4-2.0) Calcium 7.3 L (8.4-10.2) mg/dL Magnesium (1.6-2.3) mg/dL Total Bilirubin (0.2-1.3) mg/dL AST (17-59) U/L ALT (0-50) U/L Alkaline Phosphatase (38-126) U/L Troponin I 0.059 H* (0.000-0.034) ng/mL Serum Total Protein (6.3-8.2) g/dL Albumin (3.5-5.0) g/dL Lipase (23-300) U/L Influenza Type A Ag (NEGATIVE) Influenza Type B Ag (NEGATIVE) RSV (PCR) (Negative) SARS-CoV-2 (PCR) (NEGATIVE) Slides for Path Review 06/22/22 06/22/22 06/22/22 Range/Units 05:25 05:25 06:30 WBC 23.9 H (4.0-10.5) x10^3/uL RBC 3.09 L (4.1-5.6) x10^6/uL Hgb 8.8 L (12.5-18.0) g/dL Hct 28.4 L (42-50) % MCV 91.9 (78-100) fL MCH 28.5 (26-32) pg MCHC 31.0 L (32-36) g/dL RDW 11.9 (11.5-14.0) % Plt Count 579 H (150-450) x10^3/uL MPV 8.6 (7.5-11.0) fL Gran % 89.1 H (36.0-66.0) % Immature Gran % (Auto) 0.5 H (0.00-0.4) % Nucleat RBC Rel Count 0.0 (0.00-0.1) % Eos # (Auto) 0 (0-0.5) x10^3/uL Immature Gran # (Auto) 0.11 H (0.00-0.03) x10^3u/L Absolute Lymphs (auto) 0.44 L (1.0-4.6) x10^3/uL Absolute Monos (auto) 2.01 H (0.0-1.3) x10^3/uL Absolute Nucleated RBC 0.00 (0.00-0.01) x10^3u/L Lymphocytes % 1.8 L (24.0-44.0) % Monocytes % 8.4 (0.0-12.0) % Eosinophils % 0.0 (0.00-5.0) % Basophils % 0.2 (0.0-0.4) % Absolute Granulocytes 21.28 H (1.4-6.9) x10^3/uL Segmented Neutrophils (36.-66.) % Band Neutrophils (0.0-2.0) % Lymphocytes (Manual) (24-44) % Monocytes (Manual) (0.0-12.0) % Basophils # 0.04 (0-0.4) x10^3/uL Hypochromia Platelet Estimate (NORMAL) RBC Morphology Puncture Site pCO2 (35-45) mmHg pO2 (75-100) mmHg Base Excess (-2.0-2.0) O2 Saturation (94-100) g/dF ABG pH (7.35-7.45) ABG HCO3 (22-28) ABG O2 Sat (Measured) (95-100) % Arnaldo Test A-a Gradient a/A Ratio Hemoglobin Carboxyhemoglobin (0.0-6.9) % THgb Methemoglobin (1.4-1.5) % Temperature C POC O2 Flow Rate % Sodium (137-145) mmol/L Potassium (3.5-5.1) mmol/L Chloride (98-107) mmol/L Carbon Dioxide (22-30) mmol/L BUN (9-20) mg/dL Creatinine (0.66-1.25) mg/dL Estimated GFR ML/MIN Glucose 903 H* (74-106) mg/dL Lactic Acid (0.4-2.0) Calcium (8.4-10.2) mg/dL Magnesium 2.6 H (1.6-2.3) mg/dL Total Bilirubin (0.2-1.3) mg/dL AST (17-59) U/L ALT (0-50) U/L Alkaline Phosphatase (38-126) U/L Troponin I (0.000-0.034) ng/mL Serum Total Protein (6.3-8.2) g/dL Albumin (3.5-5.0) g/dL Lipase (23-300) U/L Influenza Type A Ag (NEGATIVE) Influenza Type B Ag (NEGATIVE) RSV (PCR) (Negative) SARS-CoV-2 (PCR) (NEGATIVE) Slides for Path Review YES Accuchecks Date 06/22/22 Date 06/22/22 Time 06:00 Time 05:00 - Radiology Impressions Radiology Exams & Impressions: Radiology Procedures Category Date Time Status ABDOMEN AND PELVIS W/0 CONTRAS [CT] Stat Exams 06/22/22 02:12 Taken Assessment/Plan (1) DKA, type 1 Current Visit: No Status: Acute Assessment & Plan: insulin drip, dka protocol ordered. follow bmp every 4 hours until gap is closed, patient is critically ill at this time. K 3.8 on arrival will add k to IV fluids as expect cellular shifts with insulin drip to cause this to fall Code(s): E10.10 - TYPE 1 DIABETES MELLITUS WITH KETOACIDOSIS WITHOUT COMA (2) Acute pancreatitis Current Visit: Yes Status: Acute Assessment & Plan: keep NPO, follow lipase, markedly elevated on arrival Code(s): K85.90 - ACUTE PANCREATITIS WITHOUT NECROSIS OR INFECTION, UNSP (3) Acute renal failure Current Visit: No Status: Acute Qualifiers: Assessment & Plan: patient if profoundly hypovolemic, received 2 liters nacl in ER, likely has a deficit of 5-6 liters based on exam and labs. patient to be moved to ICU bed
[2022-06-22] MEDS ORDERED: Sodium Chloride 0.9% W/ 20 mEq KCl/LITER 1,000 ML IV SCH (08:45)
--- NOTE | 2022-06-22 08:47 | XRAY ---
Indication: Nausea and vomiting. Diabetic ketoacidosis. Multiple contiguous axial images obtained through the abdomen and pelvis without contrast. Comparison: May 24, 2022 Lung bases demonstrate stable 3 mm right middle and right lower lobe peripheral noncalcified nodules. No infiltrate or effusion. Heart not enlarged. Noncontrasted stomach and bowel loops remain nonobstructed again with normal appendix. No free fluid/air. Remaining liver, gallbladder, pancreas, spleen, adrenal glands, kidneys, ureters, and bladder are unremarkable for noncontrast exam. Again minimal aortoiliac calcifications without AAA. Osseous structures intact with stable bilateral L5 spondylolysis without listhesis. Impression: No change compared to CT one month ago. Stable right middle/right lower lobe noncalcified micronodules and L5 spondylolysis without listhesis. Comment: Preliminary interpretation made by [facility]. No critical discrepancy.
[2022-06-22] MEDS: Compazine 10 MG/2 ML IV PRN ×2 (08:49→13:18)
[2022-06-22] MEDS: Apresoline 25 MG TABLET PO SCH ×4 (09:29→21:33)
[2022-06-22] MEDS: Coreg PO SCH ×3 (09:29→21:34)
[2022-06-22] MEDS: Zestril 10 MG PO SCH (09:30)
[2022-06-22] MEDS ORDERED: NON-FORMULARY ITEM (Hydralazine Hcl [Hydralazine Hcl] 100 MG Tablet) PO SCH (10:00)
[2022-06-22 10:30] LABS: ANION GAP 31.1 MEQ/L (5-15); Calcium 7.1 mg/dL (8.4-10.2); Creatinine 1 5.92 mg/dL (0.66-1.25); EST GLOMERULAR FILTRATION RATE 11.5 ML/MIN; Potassium 3.5 mmol/L (3.5-5.1)
[2022-06-22 14:10] LABS: ANION GAP 25.3 MEQ/L (5-15); Calcium 7.2 mg/dL (8.4-10.2); Creatinine 1 6.08 mg/dL (0.66-1.25); EST GLOMERULAR FILTRATION RATE 11.2 ML/MIN; Potassium 3.6 mmol/L (3.5-5.1)
[2022-06-22 14:11] LABS: Appearance SLIGHTLY CLOUDY (CLEAR); Bilirubin NEGATIVE (NEGATIVE); Dipstick done @ ? MAIN LAB; Glucose >=1000 mg/dL (NEGATIVE); Ketones LARGE-80 (NEGATIVE); Nitrite NEGATIVE (NEGATIVE); Ph 5.5 (5-6); Protein,Urine Dip 100 (Negative); RBC SMALL Ery/ul (0-5); Specific Gravity 1.025 (1.005-1.025); Urobilinogen 0.2 mg/dL (0-1)
[2022-06-22 14:12] LABS: Bacteria RARE /HPF (NEGATIVE); Epithelial Cells RARE /HPF (FEW); Mucus SLIGHT /HPF (NEGATIVE); WBC 51-100 /HPF (0-5)
[2022-06-22 14:14] LABS: Urine Cultured Indicated? YES
[2022-06-22] MEDS: POTASSIUM CHLORIDE 20 mEq IN WATER 100ML 20 MEQ/100 ML BAG IV SCH ×2 (14:30→16:24)
[2022-06-22] MEDS: D5W/0.45NS W/ 20mEq KCl 1000 ML 1,000 ML IV SCH ×2 (15:35→21:38)
[2022-06-22 18:08] LABS: Calcium 7.2 mg/dL (8.4-10.2); Creatinine 1 5.54 mg/dL (0.66-1.25); EST GLOMERULAR FILTRATION RATE 12.5 ML/MIN; Potassium 3.9 mmol/L (3.5-5.1)
[2022-06-22 18:26] LABS: ANION GAP 19.9 MEQ/L (5-15)
[2022-06-22 21:27] LABS: ANION GAP 17.6 MEQ/L (5-15); Calcium 7.4 mg/dL (8.4-10.2); Creatinine 1 5.44 mg/dL (0.66-1.25); EST GLOMERULAR FILTRATION RATE 12.7 ML/MIN; Potassium 3.6 mmol/L (3.5-5.1)
[2022-06-23 02:08] LABS: Absolute Neutrophil Ct (ANC) 12.93 x10^3/uL (1.4-6.9); Basophil (Absolute #) 0.02 x10^3/uL (0-0.4); Eosinophil % 1.4 % (0.00-5.0); Eosinophil (Absolute #) 0.21 x10^3/uL (0-0.5); Hematocrit 23.1 % (42-50); Hemoglobin 7.7 g/dL (12.5-18.0); Lymphocyte (Absolute #) 0.51 x10^3/uL (1.0-4.6); Lymphocytes % 3.5 % (24.0-44.0); Mean Cell Volume 83.7 fL (78-100); Mean Corpuscular Hemoglobin 27.9 pg (26-32); Mean Corpuscular Hgb Concent. 33.3 g/dL (32-36); Mean Platelet Volume 10.3 fL (7.5-11.0); Monocytes % 6.8 % (0.0-12.0); Neutrophil % 87.9 % (36.0-66.0); Platelet Count 334 x10^3/uL (150-450); Red Blood Count 2.76 x10^6/uL (4.1-5.6); Red Cell Distribution Width 11.9 % (11.5-14.0); White Blood Count 14.7 x10^3/uL (4.0-10.5)
[2022-06-23 02:11] LABS: BILIRUBIN,TOTAL 0.5 mg/dL (0.2-1.3); Calcium 7.5 mg/dL (8.4-10.2); Creatinine 1 5.07 mg/dL (0.66-1.25); EST GLOMERULAR FILTRATION RATE 13.8 ML/MIN; MAGNESIUM 2.1 mg/dL (1.6-2.3); Potassium 3.4 mmol/L (3.5-5.1); Total Protein 6.1 g/dL (6.3-8.2)
[2022-06-23 02:20] LABS: ANION GAP 12.4 MEQ/L (5-15)
[2022-06-23 04:01] LABS: Slide Review 1 YES
[2022-06-23] MEDS: D5W/0.45NS W/ 20mEq KCl 1000 ML 1,000 ML IV SCH ×4 (04:07→23:44)
[2022-06-23 06:12] LABS: Calcium 7.7 mg/dL (8.4-10.2); Creatinine 1 4.91 mg/dL (0.66-1.25); EST GLOMERULAR FILTRATION RATE 14.3 ML/MIN; Potassium 3.5 mmol/L (3.5-5.1)
[2022-06-23 06:25] LABS: ANION GAP 7.5 MEQ/L (5-15)
[2022-06-23] MEDS: Zofran 4 MG/2 ML VIAL IV PRN (07:38)
[2022-06-23] MEDS: Compazine 10 MG/2 ML IV PRN (10:32)
[2022-06-23] MEDS: Nicoderm CQ 21 MG TOP SCH (11:07)
[2022-06-23] MEDS: Coreg PO SCH ×2 (11:10→21:21)
[2022-06-23] MEDS: Zestril 10 MG PO SCH (11:10)
[2022-06-23] MEDS: Apresoline 25 MG TABLET PO SCH ×2 (11:10→15:16)
[2022-06-23 12:21] LABS: Hemoglobin 7.5 g/dL (12.5-18.0); Mean Cell Volume 87.8 fL (78-100); Mean Corpuscular Hemoglobin 28.6 pg (26-32); Mean Corpuscular Hgb Concent. 32.6 g/dL (32-36); Mean Platelet Volume 7.8 fL (7.5-11.0); Platelet Count 360 x10^3/uL (150-450); Red Blood Count 2.62 x10^6/uL (4.1-5.6); Red Cell Distribution Width 11.9 % (11.5-14.0)
--- NOTE | 2022-06-23 12:58 | PCM.NOTE ---
Date and Time: 06/23/22 1253 Subjective Assessment: Through the night, pt was disoriented at times, pulled out his NC multiple times, and at times would get out of bed. He did have a RR down to 3 due to some apneic periods; after NC was placed the RR improved drastically. This morning he is quite nauseated. He has been chewing tobacco, and has quite obviously spewed the tobacco out of his mouth onto his bedclothes. He will only answer me sometimes, in monosyllables, due to his nausea. Indicates he is in the hospital and that his stomach hurts and he is nauseated. BP have been 141-173 systolic (most recent prior to exam was 173/92). - Review of Systems All Other Systems: Unable due to condition Objective Exam General Appearance: moderate distress, alert Neurologic Exam: other (very limited affect as usual when ill) Skin Exam: normal color, warm, dry, No rash Eye Exam: eyes nml inspection Respiratory Exam: normal breath sounds, lungs clear, No crackles/rales, No rhonchi, No wheezing Cardiovascular Exam: regular rate/rhythm, normal heart sounds, No murmur Gastrointestinal/Abdomen Exam: soft, normal bowel sounds, tenderness (diffuse, possibly), No distention, No mass, No guarding, No rebound Extremity Exam: normal inspection, No pedal edema, No swelling OBJECTIVE DATA Vital Signs: Vital Signs - 24 hr Temp Pulse Resp BP Pulse Ox 06/23/22 12:00 87 18 157/97 97 06/23/22 11:00 92 H 14 164/96 95 06/23/22 10:00 84 15 161/90 97 06/23/22 09:00 83 16 133/84 96 06/23/22 07:53 86 16 173/92 96 06/23/22 07:06 97 06/23/22 07:00 97.7 F 97 H 21 166/93 100 06/23/22 06:00 88 16 98 06/23/22 05:00 87 10 L 141/76 96 06/23/22 04:00 98.9 F 87 17 147/75 100 06/23/22 03:00 88 16 100 06/23/22 02:00 93 H 16 169/93 100 06/23/22 01:00 88 14 163/89 100 06/23/22 00:00 94 H 17 141/73 100 06/22/22 23:00 98.6 F 81 3 L 143/76 96 06/22/22 22:11 97 06/22/22 22:00 98.9 F 86 15 152/79 98 06/22/22 21:19 82 17 133/73 98 06/22/22 21:00 87 6 L 140/76 70 L 06/22/22 20:00 89 16 153/80 94 L 06/22/22 19:15 91 H 06/22/22 19:00 98.5 F 98 H 22 120/73 98 06/22/22 18:00 83 18 131/87 06/22/22 17:00 87 18 109/56 92 L 06/22/22 16:00 87 21 140/67 93 L 06/22/22 15:00 90 21 128/65 91 L 06/22/22 14:00 98 F 81 22 117/69 95 06/22/22 13:00 87 22 117/58 92 L Pain Assessment - Last Documented Pain Intensity 0 Pain Scale Used 0-10 Pain Scale Intake and Output: Intake & Output 06/21/22 06/22/22 06/23/22 06/24/22 11:59 11:59 11:59 10:59 Intake Total 7456 Output Total 2920 Balance 4536 Weight 73 kg 73.5 kg Lab Results: Lab Results-Last 24 Hours 06/22/22 06/22/22 06/22/22 Range/Units 12:57 13:20 14:07 WBC (4.0-10.5) x10^3/uL RBC (4.1-5.6) x10^6/uL Hgb (12.5-18.0) g/dL Hct (42-50) % MCV (78-100) fL MCH (26-32) pg MCHC (32-36) g/dL RDW (11.5-14.0) % Plt Count (150-450) x10^3/uL MPV (7.5-11.0) fL Gran % (36.0-66.0) % Immature Gran % (Auto) (0.00-0.4) % Nucleat RBC Rel Count (0.00-0.1) % Eos # (Auto) (0-0.5) x10^3/uL Immature Gran # (Auto) (0.00-0.03) x10^3u/L Absolute Lymphs (auto) (1.0-4.6) x10^3/uL Absolute Monos (auto) (0.0-1.3) x10^3/uL Absolute Nucleated RBC (0.00-0.01) x10^3u/L Lymphocytes % (24.0-44.0) % Monocytes % (0.0-12.0) % Eosinophils % (0.00-5.0) % Basophils % (0.0-0.4) % Absolute Granulocytes (1.4-6.9) x10^3/uL Basophils # (0-0.4) x10^3/uL Sodium 128 L (137-145) mmol/L Potassium 3.6 (3.5-5.1) mmol/L Chloride 71 L (98-107) mmol/L Carbon Dioxide 36 H (22-30) mmol/L Anion Gap 25.3 H (5-15) MEQ/L BUN 88 H (9-20) mg/dL Creatinine 6.08 H (0.66-1.25) mg/dL Estimated GFR 11.2 ML/MIN Glucose 290 H (74-106) mg/dL POC Glucometer 289 H (74 to 106) mg/dL Calcium 7.2 L (8.4-10.2) mg/dL Magnesium (1.6-2.3) mg/dL Total Bilirubin (0.2-1.3) mg/dL AST (17-59) U/L ALT (0-50) U/L Alkaline Phosphatase (38-126) U/L Serum Total Protein (6.3-8.2) g/dL Albumin (3.5-5.0) g/dL Amylase (30-110) U/L Lipase (23-300) U/L Urinalys Dipstick Clnc MAIN LAB Urine Color YELLOW (YELLOW) Urine Appearance SLIGHTLY CLOUDY A (CLEAR) Urine pH 5.5 (5-6) Ur Specific [place] 1.025 (1.005-1.025) POC Urine Protein Conf 100 A (Negative) Urine Ketones LARGE-80 A (NEGATIVE) Urine Nitrite NEGATIVE (NEGATIVE) Urine Bilirubin NEGATIVE (NEGATIVE) Urine Urobilinogen 0.2 (0-1) mg/dL Urine Leukocytes SMALL A (NEGATIVE) Urine WBC (Auto) 51-100 A (0-5) /HPF Urine RBC (Auto) 6-10 A (0-2) /HPF U Epithel Cells (Auto) RARE (FEW) /HPF Urine Bacteria (Auto) RARE (NEGATIVE) /HPF Urine RBC SMALL A (0-5) Tomas/ul Urine Mucus (Auto) SLIGHT A (NEGATIVE) /HPF Ur Culture Indicated? YES Urine Glucose >=1000 A (NEGATIVE) mg/dL Slides for Path Review 06/22/22 06/22/22 06/22/22 Range/Units 14:58 15:52 17:00 WBC (4.0-10.5) x10^3/uL RBC (4.1-5.6) x10^6/uL Hgb (12.5-18.0) g/dL Hct (42-50) % MCV (78-100) fL MCH (26-32) pg MCHC (32-36) g/dL RDW (11.5-14.0) % Plt Count (150-450) x10^3/uL MPV (7.5-11.0) fL Gran % (36.0-66.0) % Immature Gran % (Auto) (0.00-0.4) % Nucleat RBC Rel Count (0.00-0.1) % Eos # (Auto) (0-0.5) x10^3/uL Immature Gran # (Auto) (0.00-0.03) x10^3u/L Absolute Lymphs (auto) (1.0-4.6) x10^3/uL Absolute Monos (auto) (0.0-1.3) x10^3/uL Absolute Nucleated RBC (0.00-0.01) x10^3u/L Lymphocytes % (24.0-44.0) % Monocytes % (0.0-12.0) % Eosinophils % (0.00-5.0) % Basophils % (0.0-0.4) % Absolute Granulocytes (1.4-6.9) x10^3/uL Basophils # (0-0.4) x10^3/uL Sodium (137-145) mmol/L Potassium (3.5-5.1) mmol/L Chloride (98-107) mmol/L Carbon Dioxide (22-30) mmol/L Anion Gap (5-15) MEQ/L BUN (9-20) mg/dL Creatinine (0.66-1.25) mg/dL Estimated GFR ML/MIN Glucose (74-106) mg/dL POC Glucometer 227 H 181 H 194 H (74 to 106) mg/dL Calcium (8.4-10.2) mg/dL Magnesium (1.6-2.3) mg/dL Total Bilirubin (0.2-1.3) mg/dL AST (17-59) U/L ALT (0-50) U/L Alkaline Phosphatase (38-126) U/L Serum Total Protein (6.3-8.2) g/dL Albumin (3.5-5.0) g/dL Amylase (30-110) U/L Lipase (23-300) U/L Urinalys Dipstick Clnc Urine Color (YELLOW) Urine Appearance (CLEAR) Urine pH (5-6) Ur Specific [place] (1.005-1.025) POC Urine Protein Conf (Negative) Urine Ketones (NEGATIVE) Urine Nitrite (NEGATIVE) Urine Bilirubin (NEGATIVE) Urine Urobilinogen (0-1) mg/dL Urine Leukocytes (NEGATIVE) Urine WBC (Auto) (0-5) /HPF Urine RBC (Auto) (0-2) /HPF U Epithel Cells (Auto) (FEW) /HPF Urine Bacteria (Auto) (NEGATIVE) /HPF Urine RBC (0-5) Tomas/ul Urine Mucus (Auto) (NEGATIVE) /HPF Ur Culture Indicated? Urine Glucose (NEGATIVE) mg/dL Slides for Path Review 06/22/22 06/22/22 06/22/22 Range/Units 17:45 17:57 19:02 WBC (4.0-10.5) x10^3/uL RBC (4.1-5.6) x10^6/uL Hgb (12.5-18.0) g/dL Hct (42-50) % MCV (78-100) fL MCH (26-32) pg MCHC (32-36) g/dL RDW (11.5-14.0) % Plt Count (150-450) x10^3/uL MPV (7.5-11.0) fL Gran % (36.0-66.0) % Immature Gran % (Auto) (0.00-0.4) % Nucleat RBC Rel Count (0.00-0.1) % Eos # (Auto) (0-0.5) x10^3/uL Immature Gran # (Auto) (0.00-0.03) x10^3u/L Absolute Lymphs (auto) (1.0-4.6) x10^3/uL Absolute Monos (auto) (0.0-1.3) x10^3/uL Absolute Nucleated RBC (0.00-0.01) x10^3u/L Lymphocytes % (24.0-44.0) % Monocytes % (0.0-12.0) % Eosinophils % (0.00-5.0) % Basophils % (0.0-0.4) % Absolute Granulocytes (1.4-6.9) x10^3/uL Basophils # (0-0.4) x10^3/uL Sodium 130 L (137-145) mmol/L Potassium 3.9 (3.5-5.1) mmol/L Chloride 75 L (98-107) mmol/L Carbon Dioxide 39 H (22-30) mmol/L Anion Gap 19.9 H (5-15) MEQ/L BUN 92 H (9-20) mg/dL Creatinine 5.54 H (0.66-1.25) mg/dL Estimated GFR 12.5 ML/MIN Glucose 199 H (74-106) mg/dL POC Glucometer 211 H 248 H (74 to 106) mg/dL Calcium 7.2 L (8.4-10.2) mg/dL Magnesium (1.6-2.3) mg/dL Total Bilirubin (0.2-1.3) mg/dL AST (17-59) U/L ALT (0-50) U/L Alkaline Phosphatase (38-126) U/L Serum Total Protein (6.3-8.2) g/dL Albumin (3.5-5.0) g/dL Amylase (30-110) U/L Lipase (23-300) U/L Urinalys Dipstick Clnc Urine Color (YELLOW) Urine Appearance (CLEAR) Urine pH (5-6) Ur Specific [place] (1.005-1.025) POC Urine Protein Conf (Negative) Urine Ketones (NEGATIVE) Urine Nitrite (NEGATIVE) Urine Bilirubin (NEGATIVE) Urine Urobilinogen (0-1) mg/dL Urine Leukocytes (NEGATIVE) Urine WBC (Auto) (0-5) /HPF Urine RBC (Auto) (0-2) /HPF U Epithel Cells (Auto) (FEW) /HPF Urine Bacteria (Auto) (NEGATIVE) /HPF Urine RBC (0-5) Tomas/ul Urine Mucus (Auto) (NEGATIVE) /HPF Ur Culture Indicated? Urine Glucose (NEGATIVE) mg/dL Slides for Path Review 06/22/22 06/22/22 06/22/22 Range/Units 20:12 21:07 21:20 WBC (4.0-10.5) x10^3/uL RBC (4.1-5.6) x10^6/uL Hgb (12.5-18.0) g/dL Hct (42-50) % MCV (78-100) fL MCH (26-32) pg MCHC (32-36) g/dL RDW (11.5-14.0) % Plt Count (150-450) x10^3/uL MPV (7.5-11.0) fL Gran % (36.0-66.0) % Immature Gran % (Auto) (0.00-0.4) % Nucleat RBC Rel Count (0.00-0.1) % Eos # (Auto) (0-0.5) x10^3/uL Immature Gran # (Auto) (0.00-0.03) x10^3u/L Absolute Lymphs (auto) (1.0-4.6) x10^3/uL Absolute Monos (auto) (0.0-1.3) x10^3/uL Absolute Nucleated RBC (0.00-0.01) x10^3u/L Lymphocytes % (24.0-44.0) % Monocytes % (0.0-12.0) % Eosinophils % (0.00-5.0) % Basophils % (0.0-0.4) % Absolute Granulocytes (1.4-6.9) x10^3/uL Basophils # (0-0.4) x10^3/uL Sodium 130 L (137-145) mmol/L Potassium 3.6 (3.5-5.1) mmol/L Chloride 77 L (98-107) mmol/L Carbon Dioxide 39 H (22-30) mmol/L Anion Gap 17.6 H (5-15) MEQ/L BUN 86 H (9-20) mg/dL Creatinine 5.44 H (0.66-1.25) mg/dL Estimated GFR 12.7 ML/MIN Glucose 209 H (74-106) mg/dL POC Glucometer 203 H 207 H (74 to 106) mg/dL Calcium 7.4 L (8.4-10.2) mg/dL Magnesium (1.6-2.3) mg/dL Total Bilirubin (0.2-1.3) mg/dL AST (17-59) U/L ALT (0-50) U/L Alkaline Phosphatase (38-126) U/L Serum Total Protein (6.3-8.2) g/dL Albumin (3.5-5.0) g/dL Amylase (30-110) U/L Lipase (23-300) U/L Urinalys Dipstick Clnc Urine Color (YELLOW) Urine Appearance (CLEAR) Urine pH (5-6) Ur Specific [place] (1.005-1.025) POC Urine Protein Conf (Negative) Urine Ketones (NEGATIVE) Urine Nitrite (NEGATIVE) Urine Bilirubin (NEGATIVE) Urine Urobilinogen (0-1) mg/dL Urine Leukocytes (NEGATIVE) Urine WBC (Auto) (0-5) /HPF Urine RBC (Auto) (0-2) /HPF U Epithel Cells (Auto) (FEW) /HPF Urine Bacteria (Auto) (NEGATIVE) /HPF Urine RBC (0-5) Tomas/ul Urine Mucus (Auto) (NEGATIVE) /HPF Ur Culture Indicated? Urine Glucose (NEGATIVE) mg/dL Slides for Path Review 06/22/22 06/22/22 06/23/22 Range/Units 22:01 23:01 00:03 WBC (4.0-10.5) x10^3/uL RBC (4.1-5.6) x10^6/uL Hgb (12.5-18.0) g/dL Hct (42-50) % MCV (78-100) fL MCH (26-32) pg MCHC (32-36) g/dL RDW (11.5-14.0) % Plt Count (150-450) x10^3/uL MPV (7.5-11.0) fL Gran % (36.0-66.0) % Immature Gran % (Auto) (0.00-0.4) % Nucleat RBC Rel Count (0.00-0.1) % Eos # (Auto) (0-0.5) x10^3/uL Immature Gran # (Auto) (0.00-0.03) x10^3u/L Absolute Lymphs (auto) (1.0-4.6) x10^3/uL Absolute Monos (auto) (0.0-1.3) x10^3/uL Absolute Nucleated RBC (0.00-0.01) x10^3u/L Lymphocytes % (24.0-44.0) % Monocytes % (0.0-12.0) % Eosinophils % (0.00-5.0) % Basophils % (0.0-0.4) % Absolute Granulocytes (1.4-6.9) x10^3/uL Basophils # (0-0.4) x10^3/uL Sodium (137-145) mmol/L Potassium (3.5-5.1) mmol/L Chloride (98-107) mmol/L Carbon Dioxide (22-30) mmol/L Anion Gap (5-15) MEQ/L BUN (9-20) mg/dL Creatinine (0.66-1.25) mg/dL Estimated GFR ML/MIN Glucose (74-106) mg/dL POC Glucometer 146 H 158 H 178 H (74 to 106) mg/dL Calcium (8.4-10.2) mg/dL Magnesium (1.6-2.3) mg/dL Total Bilirubin (0.2-1.3) mg/dL AST (17-59) U/L ALT (0-50) U/L Alkaline Phosphatase (38-126) U/L Serum Total Protein (6.3-8.2) g/dL Albumin (3.5-5.0) g/dL Amylase (30-110) U/L Lipase (23-300) U/L Urinalys Dipstick Clnc Urine Color (YELLOW) Urine Appearance (CLEAR) Urine pH (5-6) Ur Specific [place] (1.005-1.025) POC Urine Protein Conf (Negative) Urine Ketones (NEGATIVE) Urine Nitrite (NEGATIVE) Urine Bilirubin (NEGATIVE) Urine Urobilinogen (0-1) mg/dL Urine Leukocytes (NEGATIVE) Urine WBC (Auto) (0-5) /HPF Urine RBC (Auto) (0-2) /HPF U Epithel Cells (Auto) (FEW) /HPF Urine Bacteria (Auto) (NEGATIVE) /HPF Urine RBC (0-5) Tomas/ul Urine Mucus (Auto) (NEGATIVE) /HPF Ur Culture Indicated? Urine Glucose (NEGATIVE) mg/dL Slides for Path Review 06/23/22 06/23/22 06/23/22 Range/Units 01:01 01:45 01:45 WBC 14.7 H (4.0-10.5) x10^3/uL RBC 2.76 L (4.1-5.6) x10^6/uL Hgb 7.7 L (12.5-18.0) g/dL Hct 23.1 L (42-50) % MCV 83.7 D (78-100) fL MCH 27.9 (26-32) pg MCHC 33.3 (32-36) g/dL RDW 11.9 (11.5-14.0) % Plt Count 334 D (150-450) x10^3/uL MPV 10.3 (7.5-11.0) fL Gran % 87.9 H (36.0-66.0) % Immature Gran % (Auto) 0.3 (0.00-0.4) % Nucleat RBC Rel Count 0.0 (0.00-0.1) % Eos # (Auto) 0.21 (0-0.5) x10^3/uL Immature Gran # (Auto) 0.04 H (0.00-0.03) x10^3u/L Absolute Lymphs (auto) 0.51 L (1.0-4.6) x10^3/uL Absolute Monos (auto) 1.00 (0.0-1.3) x10^3/uL Absolute Nucleated RBC 0.00 (0.00-0.01) x10^3u/L Lymphocytes % 3.5 L (24.0-44.0) % Monocytes % 6.8 (0.0-12.0) % Eosinophils % 1.4 (0.00-5.0) % Basophils % 0.1 (0.0-0.4) % Absolute Granulocytes 12.93 H (1.4-6.9) x10^3/uL Basophils # 0.02 (0-0.4) x10^3/uL Sodium 130 L (137-145) mmol/L Potassium 3.4 L (3.5-5.1) mmol/L Chloride 81 L (98-107) mmol/L Carbon Dioxide 40 H (22-30) mmol/L Anion Gap 12.4 (5-15) MEQ/L BUN 79 H (9-20) mg/dL Creatinine 5.07 H (0.66-1.25) mg/dL Estimated GFR 13.8 ML/MIN Glucose 208 H (74-106) mg/dL POC Glucometer 187 H (74 to 106) mg/dL Calcium 7.5 L (8.4-10.2) mg/dL Magnesium 2.1 (1.6-2.3) mg/dL Total Bilirubin 0.50 (0.2-1.3) mg/dL AST 25 (17-59) U/L ALT 19 (0-50) U/L Alkaline Phosphatase 141 H (38-126) U/L Serum Total Protein 6.1 L (6.3-8.2) g/dL Albumin 3.0 L (3.5-5.0) g/dL Amylase 262 H (30-110) U/L Lipase 994 H (23-300) U/L Urinalys Dipstick Clnc Urine Color (YELLOW) Urine Appearance (CLEAR) Urine pH (5-6) Ur Specific [place] (1.005-1.025) POC Urine Protein Conf (Negative) Urine Ketones (NEGATIVE) Urine Nitrite (NEGATIVE) Urine Bilirubin (NEGATIVE) Urine Urobilinogen (0-1) mg/dL Urine Leukocytes (NEGATIVE) Urine WBC (Auto) (0-5) /HPF Urine RBC (Auto) (0-2) /HPF U Epithel Cells (Auto) (FEW) /HPF Urine Bacteria (Auto) (NEGATIVE) /HPF Urine RBC (0-5) Tomas/ul Urine Mucus (Auto) (NEGATIVE) /HPF Ur Culture Indicated? Urine Glucose (NEGATIVE) mg/dL Slides for Path Review YES 06/23/22 06/23/22 06/23/22 Range/Units 02:08 03:07 03:55 WBC (4.0-10.5) x10^3/uL RBC (4.1-5.6) x10^6/uL Hgb (12.5-18.0) g/dL Hct (42-50) % MCV (78-100) fL MCH (26-32) pg MCHC (32-36) g/dL RDW (11.5-14.0) % Plt Count (150-450) x10^3/uL MPV (7.5-11.0) fL Gran % (36.0-66.0) % Immature Gran % (Auto) (0.00-0.4) % Nucleat RBC Rel Count (0.00-0.1) % Eos # (Auto) (0-0.5) x10^3/uL Immature Gran # (Auto) (0.00-0.03) x10^3u/L Absolute Lymphs (auto) (1.0-4.6) x10^3/uL Absolute Monos (auto) (0.0-1.3) x10^3/uL Absolute Nucleated RBC (0.00-0.01) x10^3u/L Lymphocytes % (24.0-44.0) % Monocytes % (0.0-12.0) % Eosinophils % (0.00-5.0) % Basophils % (0.0-0.4) % Absolute Granulocytes (1.4-6.9) x10^3/uL Basophils # (0-0.4) x10^3/uL Sodium (137-145) mmol/L Potassium (3.5-5.1) mmol/L Chloride (98-107) mmol/L Carbon Dioxide (22-30) mmol/L Anion Gap (5-15) MEQ/L BUN (9-20) mg/dL Creatinine (0.66-1.25) mg/dL Estimated GFR ML/MIN Glucose (74-106) mg/dL POC Glucometer 150 H 138 H 158 H (74 to 106) mg/dL Calcium (8.4-10.2) mg/dL Magnesium (1.6-2.3) mg/dL Total Bilirubin (0.2-1.3) mg/dL AST (17-59) U/L ALT (0-50) U/L Alkaline Phosphatase (38-126) U/L Serum Total Protein (6.3-8.2) g/dL Albumin (3.5-5.0) g/dL Amylase (30-110) U/L Lipase (23-300) U/L Urinalys Dipstick Clnc Urine Color (YELLOW) Urine Appearance (CLEAR) Urine pH (5-6) Ur Specific [place] (1.005-1.025) POC Urine Protein Conf (Negative) Urine Ketones (NEGATIVE) Urine Nitrite (NEGATIVE) Urine Bilirubin (NEGATIVE) Urine Urobilinogen (0-1) mg/dL Urine Leukocytes (NEGATIVE) Urine WBC (Auto) (0-5) /HPF Urine RBC (Auto) (0-2) /HPF U Epithel Cells (Auto) (FEW) /HPF Urine Bacteria (Auto) (NEGATIVE) /HPF Urine RBC (0-5) Tomas/ul Urine Mucus (Auto) (NEGATIVE) /HPF Ur Culture Indicated? Urine Glucose (NEGATIVE) mg/dL Slides for Path Review 06/23/22 06/23/22 06/23/22 Range/Units 05:04 05:23 06:06 WBC (4.0-10.5) x10^3/uL RBC (4.1-5.6) x10^6/uL Hgb (12.5-18.0) g/dL Hct (42-50) % MCV (78-100) fL MCH (26-32) pg MCHC (32-36) g/dL RDW (11.5-14.0) % Plt Count (150-450) x10^3/uL MPV (7.5-11.0) fL Gran % (36.0-66.0) % Immature Gran % (Auto) (0.00-0.4) % Nucleat RBC Rel Count (0.00-0.1) % Eos # (Auto) (0-0.5) x10^3/uL Immature Gran # (Auto) (0.00-0.03) x10^3u/L Absolute Lymphs (auto) (1.0-4.6) x10^3/uL Absolute Monos (auto) (0.0-1.3) x10^3/uL Absolute Nucleated RBC (0.00-0.01) x10^3u/L Lymphocytes % (24.0-44.0) % Monocytes % (0.0-12.0) % Eosinophils % (0.00-5.0) % Basophils % (0.0-0.4) % Absolute Granulocytes (1.4-6.9) x10^3/uL Basophils # (0-0.4) x10^3/uL Sodium 132 L (137-145) mmol/L Potassium 3.5 (3.5-5.1) mmol/L Chloride 84 L (98-107) mmol/L Carbon Dioxide 44 H (22-30) mmol/L Anion Gap 7.5 (5-15) MEQ/L BUN 71 H (9-20) mg/dL Creatinine 4.91 H (0.66-1.25) mg/dL Estimated GFR 14.3 ML/MIN Glucose 207 H (74-106) mg/dL POC Glucometer 170 H 185 H (74 to 106) mg/dL Calcium 7.7 L (8.4-10.2) mg/dL Magnesium (1.6-2.3) mg/dL Total Bilirubin (0.2-1.3) mg/dL AST (17-59) U/L ALT (0-50) U/L Alkaline Phosphatase (38-126) U/L Serum Total Protein (6.3-8.2) g/dL Albumin (3.5-5.0) g/dL Amylase (30-110) U/L Lipase (23-300) U/L Urinalys Dipstick Clnc Urine Color (YELLOW) Urine Appearance (CLEAR) Urine pH (5-6) Ur Specific [place] (1.005-1.025) POC Urine Protein Conf (Negative) Urine Ketones (NEGATIVE) Urine Nitrite (NEGATIVE) Urine Bilirubin (NEGATIVE) Urine Urobilinogen (0-1) mg/dL Urine Leukocytes (NEGATIVE) Urine WBC (Auto) (0-5) /HPF Urine RBC (Auto) (0-2) /HPF U Epithel Cells (Auto) (FEW) /HPF Urine Bacteria (Auto) (NEGATIVE) /HPF Urine RBC (0-5) Tomas/ul Urine Mucus (Auto) (NEGATIVE) /HPF Ur Culture Indicated? Urine Glucose (NEGATIVE) mg/dL Slides for Path Review 06/23/22 06/23/22 06/23/22 Range/Units 07:02 07:55 09:00 WBC (4.0-10.5) x10^3/uL RBC (4.1-5.6) x10^6/uL Hgb (12.5-18.0) g/dL Hct (42-50) % MCV (78-100) fL MCH (26-32) pg MCHC (32-36) g/dL RDW (11.5-14.0) % Plt Count (150-450) x10^3/uL MPV (7.5-11.0) fL Gran % (36.0-66.0) % Immature Gran % (Auto) (0.00-0.4) % Nucleat RBC Rel Count (0.00-0.1) % Eos # (Auto) (0-0.5) x10^3/uL Immature Gran # (Auto) (0.00-0.03) x10^3u/L Absolute Lymphs (auto) (1.0-4.6) x10^3/uL Absolute Monos (auto) (0.0-1.3) x10^3/uL Absolute Nucleated RBC (0.00-0.01) x10^3u/L Lymphocytes % (24.0-44.0) % Monocytes % (0.0-12.0) % Eosinophils % (0.00-5.0) % Basophils % (0.0-0.4) % Absolute Granulocytes (1.4-6.9) x10^3/uL Basophils # (0-0.4) x10^3/uL Sodium (137-145) mmol/L Potassium (3.5-5.1) mmol/L Chloride (98-107) mmol/L Carbon Dioxide (22-30) mmol/L Anion Gap (5-15) MEQ/L BUN (9-20) mg/dL Creatinine (0.66-1.25) mg/dL Estimated GFR ML/MIN Glucose (74-106) mg/dL POC Glucometer 195 H 185 H 176 H (74 to 106) mg/dL Calcium (8.4-10.2) mg/dL Magnesium (1.6-2.3) mg/dL Total Bilirubin (0.2-1.3) mg/dL AST (17-59) U/L ALT (0-50) U/L Alkaline Phosphatase (38-126) U/L Serum Total Protein (6.3-8.2) g/dL Albumin (3.5-5.0) g/dL Amylase (30-110) U/L Lipase (23-300) U/L Urinalys Dipstick Clnc Urine Color (YELLOW) Urine Appearance (CLEAR) Urine pH (5-6) Ur Specific [place] (1.005-1.025) POC Urine Protein Conf (Negative) Urine Ketones (NEGATIVE) Urine Nitrite (NEGATIVE) Urine Bilirubin (NEGATIVE) Urine Urobilinogen (0-1) mg/dL Urine Leukocytes (NEGATIVE) Urine WBC (Auto) (0-5) /HPF Urine RBC (Auto) (0-2) /HPF U Epithel Cells (Auto) (FEW) /HPF Urine Bacteria (Auto) (NEGATIVE) /HPF Urine RBC (0-5) Tomas/ul Urine Mucus (Auto) (NEGATIVE) /HPF Ur Culture Indicated? Urine Glucose (NEGATIVE) mg/dL Slides for Path Review 06/23/22 06/23/22 06/23/22 Range/Units 10:01 10:57 11:58 WBC (4.0-10.5) x10^3/uL RBC (4.1-5.6) x10^6/uL Hgb (12.5-18.0) g/dL Hct (42-50) % MCV (78-100) fL MCH (26-32) pg MCHC (32-36) g/dL RDW (11.5-14.0) % Plt Count (150-450) x10^3/uL MPV (7.5-11.0) fL Gran % (36.0-66.0) % Immature Gran % (Auto) (0.00-0.4) % Nucleat RBC Rel Count (0.00-0.1) % Eos # (Auto) (0-0.5) x10^3/uL Immature Gran # (Auto) (0.00-0.03) x10^3u/L Absolute Lymphs (auto) (1.0-4.6) x10^3/uL Absolute Monos (auto) (0.0-1.3) x10^3/uL Absolute Nucleated RBC (0.00-0.01) x10^3u/L Lymphocytes % (24.0-44.0) % Monocytes % (0.0-12.0) % Eosinophils % (0.00-5.0) % Basophils % (0.0-0.4) % Absolute Granulocytes (1.4-6.9) x10^3/uL Basophils # (0-0.4) x10^3/uL Sodium (137-145) mmol/L Potassium (3.5-5.1) mmol/L Chloride (98-107) mmol/L Carbon Dioxide (22-30) mmol/L Anion Gap (5-15) MEQ/L BUN (9-20) mg/dL Creatinine (0.66-1.25) mg/dL Estimated GFR ML/MIN Glucose (74-106) mg/dL POC Glucometer 155 H 168 H 137 H (74 to 106) mg/dL Calcium (8.4-10.2) mg/dL Magnesium (1.6-2.3) mg/dL Total Bilirubin (0.2-1.3) mg/dL AST (17-59) U/L ALT (0-50) U/L Alkaline Phosphatase (38-126) U/L Serum Total Protein (6.3-8.2) g/dL Albumin (3.5-5.0) g/dL Amylase (30-110) U/L Lipase (23-300) U/L Urinalys Dipstick Clnc Urine Color (YELLOW) Urine Appearance (CLEAR) Urine pH (5-6) Ur Specific [place] (1.005-1.025) POC Urine Protein Conf (Negative) Urine Ketones (NEGATIVE) Urine Nitrite (NEGATIVE) Urine Bilirubin (NEGATIVE) Urine Urobilinogen (0-1) mg/dL Urine Leukocytes (NEGATIVE) Urine WBC (Auto) (0-5) /HPF Urine RBC (Auto) (0-2) /HPF U Epithel Cells (Auto) (FEW) /HPF Urine Bacteria (Auto) (NEGATIVE) /HPF Urine RBC (0-5) Tomas/ul Urine Mucus (Auto) (NEGATIVE) /HPF Ur Culture Indicated? Urine Glucose (NEGATIVE) mg/dL Slides for Path Review 06/23/22 Range/Units 12:10 WBC 10.0 (4.0-10.5) x10^3/uL RBC 2.62 L (4.1-5.6) x10^6/uL Hgb 7.5 L (12.5-18.0) g/dL Hct 23.0 L (42-50) % MCV 87.8 (78-100) fL MCH 28.6 (26-32) pg MCHC 32.6 (32-36) g/dL RDW 11.9 (11.5-14.0) % Plt Count 360 (150-450) x10^3/uL MPV 7.8 (7.5-11.0) fL Gran % (36.0-66.0) % Immature Gran % (Auto) (0.00-0.4) % Nucleat RBC Rel Count (0.00-0.1) % Eos # (Auto) (0-0.5) x10^3/uL Immature Gran # (Auto) (0.00-0.03) x10^3u/L Absolute Lymphs (auto) (1.0-4.6) x10^3/uL Absolute Monos (auto) (0.0-1.3) x10^3/uL Absolute Nucleated RBC (0.00-0.01) x10^3u/L Lymphocytes % (24.0-44.0) % Monocytes % (0.0-12.0) % Eosinophils % (0.00-5.0) % Basophils % (0.0-0.4) % Absolute Granulocytes (1.4-6.9) x10^3/uL Basophils # (0-0.4) x10^3/uL Sodium (137-145) mmol/L Potassium (3.5-5.1) mmol/L Chloride (98-107) mmol/L Carbon Dioxide (22-30) mmol/L Anion Gap (5-15) MEQ/L BUN (9-20) mg/dL Creatinine (0.66-1.25) mg/dL Estimated GFR ML/MIN Glucose (74-106) mg/dL POC Glucometer (74 to 106) mg/dL Calcium (8.4-10.2) mg/dL Magnesium (1.6-2.3) mg/dL Total Bilirubin (0.2-1.3) mg/dL AST (17-59) U/L ALT (0-50) U/L Alkaline Phosphatase (38-126) U/L Serum Total Protein (6.3-8.2) g/dL Albumin (3.5-5.0) g/dL Amylase (30-110) U/L Lipase (23-300) U/L Urinalys Dipstick Clnc Urine Color (YELLOW) Urine Appearance (CLEAR) Urine pH (5-6) Ur Specific [place] (1.005-1.025) POC Urine Protein Conf (Negative) Urine Ketones (NEGATIVE) Urine Nitrite (NEGATIVE) Urine Bilirubin (NEGATIVE) Urine Urobilinogen (0-1) mg/dL Urine Leukocytes (NEGATIVE) Urine WBC (Auto) (0-5) /HPF Urine RBC (Auto) (0-2) /HPF U Epithel Cells (Auto) (FEW) /HPF Urine Bacteria (Auto) (NEGATIVE) /HPF Urine RBC (0-5) Tomas/ul Urine Mucus (Auto) (NEGATIVE) /HPF Ur Culture Indicated? Urine Glucose (NEGATIVE) mg/dL Slides for Path Review Radiology Exams: Radiology Procedures Category Date Time Status ABDOMEN AND PELVIS W/0 CONTRAS [CT] Stat Exams 06/22/22 02:12 Completed Assessment/Plan (1) DKA, type 1 Current Visit: No Status: Acute Qualifiers: Diabetes mellitus complication detail: without coma Qualified Code(s): E1 0.10 - Type 1 diabetes mellitus with ketoacidosis without coma Assessment & Plan: Pt is coming off insulin drip and onto sliding scale. BS 100s today. He has had so many recent hospitalizations with out of control sugars, pancreatitis, and renal failure for the past 5 months, that if he does not want to seek and be compliant with recommended treatments, he should consider hospice consult. Will discuss with pt when he is more ready to have a conversation (less nausea). Code(s): E10.10 - TYPE 1 DIABETES MELLITUS WITH KETOACIDOSIS WITHOUT COMA (2) Pancreatitis Current Visit: Yes Status: Acute Qualifiers: Chronicity: acute Pancreatitis type: unspecified pancreatitis type Acute pancreatitis complication: no infection or necrosis Qualified Code(s): K85.90 - Acute pancreatitis without necrosis or infection, unspecified Assessment & Plan: Could be related to alcohol or other substances or more related to chronic totally uncontrolled DMI; unable to really question pt at this time. Appears to be worsened today per lipase; continue IV fluids. He received 5-6L of fluid intially and is now receiving D5 1/2NS + K+ at 150mL/hr. Code(s): K85.90 - ACUTE PANCREATITIS WITHOUT NECROSIS OR INFECTION, UNSP (3) Altered mental status Current Visit: Yes Status: Resolved Code(s): R41.82 - ALTERED MENTAL STATUS, UNSPECIFIED (4) Acute on chronic renal failure Current Visit: Yes Status: Acute Qualifiers: Acute renal failure type: unspecified Chronic kidney disease stage: stage 5, not on chronic dialysis Qualified Code(s): N17.9 - Acute kidney failure, unspecified; N18.5 - Chronic kidney disease, stage 5 Assessment & Plan: His eGFR at admission was 10.4. Two hospital admissions ago, he had been admitted at [facility] and seen by nephrology. I spoke with Dr. Delgado and Dr. Agarwal at his last admission, and they noted he will likely have to go on dialysis. Code(s): N17.9 - ACUTE KIDNEY FAILURE, UNSPECIFIED; N18.9 - CHRONIC KIDNEY DISEASE, UNSPECIFIED (5) Leukocytosis Current Visit: Yes Status: Acute Qualifiers: Leukocytosis type: unspecified Qualified Code(s): D72.829 - Elevated white blood cell count, unspecified Assessment & Plan: Was 23.9 on admission; currently 14.7. on zosyn day #3 currently. Code(s): D72.829 - ELEVATED WHITE BLOOD CELL COUNT, UNSPECIFIED (6) Non compliance w medication regimen Current Visit: No Status: Acute Assessment & Plan: Has never controlled his diabetes. Code(s): Z91.14 - PATIENT'S OTHER NONCOMPLIANCE WITH MEDICATION REGIMEN (7) Diabetes mellitus type I Current Visit: No Status: Chronic Onset Date: ~05/30/18 Qualifiers: Diabetes mellitus complication status: with kidney complications Diabetes mellitus complication detail: with nephropathy Qualified Code(s): E10.21 - Type 1 diabetes mellitus with diabetic nephropathy (8) Hypertension Current Visit: No Status: Chronic Onset Date: ~05/30/18 Qualifiers: Hypertension type: renovascular hypertension Qualified Code(s): I15.0 - Renovascular hypertension Code(s): I10 - ESSENTIAL (PRIMARY) HYPERTENSION (9) Hyponatremia Current Visit: No Status: Acute Assessment & Plan: improved, from 130 initially to 132 this morning. Code(s): E87.1 - HYPO-OSMOLALITY AND HYPONATREMIA (10) Polysubstance abuse Current Visit: No Status: Chronic Assessment & Plan: has chronically used methamphetamine; unable to determine if he used any recently, and drug screen not done upon admission. Code(s): F19.10 - OTHER PSYCHOACTIVE SUBSTANCE ABUSE, UNCOMPLICATED (11) Elevated troponin Current Visit: Yes Status: Acute Assessment & Plan: likely due to renal failure. Code(s): R77.8 - OTHER SPECIFIED ABNORMALITIES OF PLASMA PROTEINS (12) Tobacco abuse Current Visit: Yes Status: Acute Assessment & Plan: Causing nausea and vomiting at this point. Will remove the tobacco from the room currently and replace with nicotine patch for pt. Code(s): Z72.0 - TOBACCO USE (13) Nausea Current Visit: Yes Status: Acute Assessment & Plan: try compazine Code(s): R11.0 - NAUSEA (14) Anemia Current Visit: No Status: Chronic Qualifiers: Anemia type: unspecified type Qualified Code(s): D64.9 - Anemia, unspecified Assessment & Plan: worse currently, but likely related to dilution. Remains over 7.0 in this pt without known coronary artery dz. Code(s): D64.9 - ANEMIA, UNSPECIFIED
[2022-06-23] MEDS: APRESOLINE 20 MG/ML INJ IV SCH ×2 (16:01→21:21)
[2022-06-23] MEDS: HUMALOG SQ PRN ×3 (16:07→23:55)
[2022-06-23] MEDS: PROTONIX 40 MG IV IV SCH (21:21)
[2022-06-24] MEDS: APRESOLINE 20 MG/ML INJ IV SCH ×2 (03:30→08:37)
[2022-06-24] MEDS: HUMALOG SQ PRN ×5 (03:30→20:11)
[2022-06-24] MEDS: D5W/0.45NS W/ 20mEq KCl 1000 ML 1,000 ML IV SCH (05:06)
[2022-06-24] MEDS: Coreg PO SCH ×2 (05:52→22:00)
[2022-06-24 08:04] LABS: Hematocrit 23.5 % (42-50); Hemoglobin 7.8 g/dL (12.5-18.0); Mean Cell Volume 85.1 fL (78-100); Mean Corpuscular Hemoglobin 28.3 pg (26-32); Mean Corpuscular Hgb Concent. 33.2 g/dL (32-36); Mean Platelet Volume 8.1 fL (7.5-11.0); Platelet Count 328 x10^3/uL (150-450); Red Blood Count 2.76 x10^6/uL (4.1-5.6); Red Cell Distribution Width 11.9 % (11.5-14.0); White Blood Count 8.3 x10^3/uL (4.0-10.5)
[2022-06-24 08:18] LABS: ANION GAP 10.3 MEQ/L (5-15); Calcium 7.7 mg/dL (8.4-10.2); Creatinine 1 3.16 mg/dL (0.66-1.25); EST GLOMERULAR FILTRATION RATE 23.8 ML/MIN
[2022-06-24] MEDS: Zofran 4 MG/2 ML VIAL IV PRN ×4 (08:37→22:03)
[2022-06-24] MEDS: Zestril 10 MG PO SCH (08:41)
[2022-06-24] MEDS: Nicoderm CQ 21 MG TOP SCH (08:41)
[2022-06-24] MEDS: NORVASC 5 MG PO SCH (08:41)
[2022-06-24] MEDS ORDERED: DIOVAN 80 MG PO SCH (11:35)
[2022-06-24] MEDS: DEXTROSE 5% -NACL 0.9% 1000 ML + KCl 20 MEQ 1,000 ML IV SCH ×2 (11:53→22:00)
[2022-06-24] MEDS: Apresoline 25 MG TABLET PO SCH ×2 (14:52→22:00)
[2022-06-24] MEDS ORDERED: Apresoline 25 MG TABLET PO SCH (15:00)
--- NOTE | 2022-06-24 16:54 | PCM.NOTE ---
Date and Time: 06/24/22 164 Subjective Assessment: He is awake and alert today. Able to take some pills and would like some broth. Overnight he had elevated BPs, from 129-194/77-103. At home was on hydralazine 100mg po TID from Dr. Davis ([facility]), as well as 10mg amlodipine daily and carvedilol 6.25mg BID. - Review of Systems Constitutional: No Fever Abdominal/Gastrointestinal: Nausea Objective Exam General Appearance: no apparent distress, alert Neurologic Exam: oriented x 3, cooperative, other (limited affect as usual) Skin Exam: normal color, warm, dry, No rash Eye Exam: eyes nml inspection Ears, Nose, Throat Exam: moist mucous membranes Neck Exam: normal inspection Respiratory Exam: normal breath sounds, lungs clear, No crackles/rales, No rhonchi, No wheezing Cardiovascular Exam: regular rate/rhythm, normal heart sounds, No murmur Gastrointestinal/Abdomen Exam: soft, normal bowel sounds, tenderness (mild generalized ttp), No distention, No mass, No guarding, No rebound Extremity Exam: normal inspection, No pedal edema, No swelling Back Exam: normal inspection, No rash OBJECTIVE DATA Vital Signs: Vital Signs - 24 hr Temp Pulse Resp BP Pulse Ox 06/24/22 15:03 89 06/24/22 14:00 81 26 H 06/24/22 12:00 97.8 F 86 26 H 147/88 95 06/24/22 09:39 93 H 16 159/91 97 06/24/22 08:00 98.2 F 95 H 24 184/105 96 06/24/22 07:30 95 06/24/22 06:51 94 H 170/95 06/24/22 06:39 103 H 170/95 06/24/22 06:00 98 H 06/24/22 04:28 176/102 06/24/22 04:00 101 H 24 190/103 97 06/24/22 01:53 EST 91 H 12 95 06/24/22 00:00 99 H 06/23/22 23:00 93 H 20 129/77 94 L 06/23/22 21:53 94 H 16 180/103 96 06/23/22 20:33 91 H 19 143/88 94 L 06/23/22 20:00 97.8 F 82 21 134/77 96 06/23/22 19:45 90 06/23/22 18:59 92 H 19 155/87 95 06/23/22 18:33 97 06/23/22 18:00 84 22 136/78 94 L Pain Assessment - Last Documented Pain Intensity 0 Pain Scale Used 0-10 Pain Scale Intake and Output: Intake & Output 06/22/22 06/23/22 06/24/22 06/25/22 12:59 12:59 11:59 11:59 Intake Total 1680 Output Total 400 Balance 1280 Weight Lab Results: Lab Results-Last 24 Hours 06/23/22 06/23/22 06/24/22 Range/Units 20:05 23:49 03:26 WBC (4.0-10.5) x10^3/uL RBC (4.1-5.6) x10^6/uL Hgb (12.5-18.0) g/dL Hct (42-50) % MCV (78-100) fL MCH (26-32) pg MCHC (32-36) g/dL RDW (11.5-14.0) % Plt Count (150-450) x10^3/uL MPV (7.5-11.0) fL Sodium (137-145) mmol/L Potassium (3.5-5.1) mmol/L Chloride (98-107) mmol/L Carbon Dioxide (22-30) mmol/L Anion Gap (5-15) MEQ/L BUN (9-20) mg/dL Creatinine (0.66-1.25) mg/dL Estimated GFR ML/MIN Glucose (74-106) mg/dL POC Glucometer 273 H 289 H 332 H (74 to 106) mg/dL Calcium (8.4-10.2) mg/dL Lipase (23-300) U/L 06/24/22 06/24/22 06/24/22 Range/Units 07:50 07:50 07:50 WBC 8.3 (4.0-10.5) x10^3/uL RBC 2.76 L (4.1-5.6) x10^6/uL Hgb 7.8 L (12.5-18.0) g/dL Hct 23.5 L (42-50) % MCV 85.1 (78-100) fL MCH 28.3 (26-32) pg MCHC 33.2 (32-36) g/dL RDW 11.9 (11.5-14.0) % Plt Count 328 (150-450) x10^3/uL MPV 8.1 (7.5-11.0) fL Sodium 125 L D (137-145) mmol/L Potassium 4.0 (3.5-5.1) mmol/L Chloride 89 L (98-107) mmol/L Carbon Dioxide 29 (22-30) mmol/L Anion Gap 10.3 (5-15) MEQ/L BUN 35 H (9-20) mg/dL Creatinine 3.16 H (0.66-1.25) mg/dL Estimated GFR 23.8 ML/MIN Glucose 358 H (74-106) mg/dL POC Glucometer (74 to 106) mg/dL Calcium 7.7 L (8.4-10.2) mg/dL Lipase 1266 H (23-300) U/L 06/24/22 06/24/22 Range/Units 07:53 12:01 WBC (4.0-10.5) x10^3/uL RBC (4.1-5.6) x10^6/uL Hgb (12.5-18.0) g/dL Hct (42-50) % MCV (78-100) fL MCH (26-32) pg MCHC (32-36) g/dL RDW (11.5-14.0) % Plt Count (150-450) x10^3/uL MPV (7.5-11.0) fL Sodium (137-145) mmol/L Potassium (3.5-5.1) mmol/L Chloride (98-107) mmol/L Carbon Dioxide (22-30) mmol/L Anion Gap (5-15) MEQ/L BUN (9-20) mg/dL Creatinine (0.66-1.25) mg/dL Estimated GFR ML/MIN Glucose (74-106) mg/dL POC Glucometer 357 H 326 H (74 to 106) mg/dL Calcium (8.4-10.2) mg/dL Lipase (23-300) U/L Assessment/Plan (1) Diabetes mellitus type I Current Visit: No Status: Chronic Onset Date: ~05/30/18 Qualifiers: Diabetes mellitus complication status: with kidney complications Diabetes mellitus complication detail: with nephropathy Qualified Code(s): E10.21 - Type 1 diabetes mellitus with diabetic nephropathy (2) Hypertension Current Visit: No Status: Chronic Onset Date: ~05/30/18 Qualifiers: Hypertension type: renovascular hypertension Qualified Code(s): I15.0 - Renovascular hypertension Assessment & Plan: Able to restart home meds now that he can tolerate po. Code(s): I10 - ESSENTIAL (PRIMARY) HYPERTENSION (3) Pancreatitis Current Visit: Yes Status: Acute Qualifiers: Chronicity: acute Pancreatitis type: unspecified pancreatitis type Acute pancreatitis complication: no infection or necrosis Qualified Code(s): K85.90 - Acute pancreatitis without necrosis or infection, unspecified Assessment & Plan: numbers are worse, but clinically he is improving. If lipase persistently up tomorrow, will re-image with CT abd/pelvis. Code(s): K85.90 - ACUTE PANCREATITIS WITHOUT NECROSIS OR INFECTION, UNSP (4) Acute on chronic renal failure Current Visit: Yes Status: Acute Qualifiers: Acute renal failure type: unspecified Chronic kidney disease stage: stage 5, not on chronic dialysis Qualified Code(s): N17.9 - Acute kidney failure, unspecified; N18.5 - Chronic kidney disease, stage 5 Assessment & Plan: eGFR 28 today, the best it's been since the summer. Discussed with him that he needs to talk to nephrology - he had an appt but was back in the hospital by then. Code(s): N17.9 - ACUTE KIDNEY FAILURE, UNSPECIFIED; N18.9 - CHRONIC KIDNEY DISEASE, UNSPECIFIED (5) Leukocytosis Current Visit: Yes Status: Resolved Qualifiers: Leukocytosis type: unspecified Qualified Code(s): D72.829 - Elevated white blood cell count, unspecified Assessment & Plan: down to 8.3 from 23.9 originally. Code(s): D72.829 - ELEVATED WHITE BLOOD CELL COUNT, UNSPECIFIED (6) Non compliance w medication regimen Current Visit: No Status: Chronic Code(s): Z91.14 - PATIENT'S OTHER NONCOMPLIANCE WITH MEDICATION REGIMEN (7) Hyponatremia Current Visit: No Status: Acute Assessment & Plan: Will change IV fluids from D5 1/2NS to D5 NS at 100cc/hr. Code(s): E87.1 - HYPO-OSMOLALITY AND HYPONATREMIA (8) Polysubstance abuse Current Visit: No Status: Chronic Code(s): F19.10 - OTHER PSYCHOACTIVE SUBSTANCE ABUSE, UNCOMPLICATED (9) Elevated troponin Current Visit: Yes Status: Acute Assessment & Plan: No chest pain - likely related to renal insufficiency. Code(s): R77.8 - OTHER SPECIFIED ABNORMALITIES OF PLASMA PROTEINS (10) Tobacco abuse Current Visit: Yes Status: Chronic Assessment & Plan: on nicoderm patch. Code(s): Z72.0 - TOBACCO USE (11) Nausea Current Visit: Yes Status: Acute Assessment & Plan: improved. Code(s): R11.0 - NAUSEA (12) Anemia Current Visit: No Status: Chronic Qualifiers: Anemia type: unspecified type Qualified Code(s): D64.9 - Anemia, unspecified Assessment & Plan: likely d/t renal insufficiency. Stable at 7.8 (still suffering effects of dilution) - wouldn't transfuse until < 7. Code(s): D64.9 - ANEMIA, UNSPECIFIED
[2022-06-24] MEDS: PROTONIX 40 MG IV IV SCH (22:00)
[2022-06-25] MEDS: Zofran 4 MG/2 ML VIAL IV PRN ×2 (03:39→09:30)
[2022-06-25] MEDS: CLONIDINE 0.1 MG TABLET PO PRN (03:41)
[2022-06-25] MEDS: HUMALOG SQ PRN ×5 (05:06→21:27)
[2022-06-25 06:12] LABS: Hematocrit 23.5 % (42-50); Hemoglobin 7.7 g/dL (12.5-18.0); Mean Cell Volume 85.8 fL (78-100); Mean Corpuscular Hemoglobin 28.1 pg (26-32); Mean Corpuscular Hgb Concent. 32.8 g/dL (32-36); Mean Platelet Volume 7.9 fL (7.5-11.0); Platelet Count 283 x10^3/uL (150-450); Red Blood Count 2.74 x10^6/uL (4.1-5.6); Red Cell Distribution Width 11.6 % (11.5-14.0); White Blood Count 7.8 x10^3/uL (4.0-10.5)
[2022-06-25 06:33] LABS: ANION GAP 14.7 MEQ/L (5-15); Calcium 7.6 mg/dL (8.4-10.2); Creatinine 1 2.64 mg/dL (0.66-1.25); EST GLOMERULAR FILTRATION RATE 29.3 ML/MIN
[2022-06-25 06:36] LABS: Potassium 5.3 mmol/L (3.5-5.1)
[2022-06-25] MEDS: Zestril 10 MG PO SCH (09:12)
[2022-06-25] MEDS: Coreg PO SCH ×2 (09:12→21:28)
[2022-06-25] MEDS: NORVASC 5 MG PO SCH (09:12)
[2022-06-25] MEDS: Sodium Chloride 0.9% 1000 ML 1,000 ML IV SCH ×2 (09:12→21:26)
[2022-06-25] MEDS: Apresoline 25 MG TABLET PO SCH ×3 (09:12→21:28)
[2022-06-25] MEDS: Nicoderm CQ 21 MG TOP SCH (09:13)
[2022-06-25] MEDS ORDERED: Miralax Powder 17GM PACKET PO SCH (10:00)
--- NOTE | 2022-06-25 13:42 | PCM.NOTE ---
Date and Time: 06/25/22 1336 Subjective Assessment: He is feeling better. Intermittent nausea, but this is chronic. BP was 184/105 yesterday at 8 am, then 130s-150s systolic through the day (one 113/68), then this a.m. 180/108. Clonidine po given this morning. Pt is asking about applying for disability. Per discharge planning, they did discuss that last time, he was given papers and referred to [facility] for assistance, but may have been in hospital too much to get anything completed. - Review of Systems Constitutional: No Fever Abdominal/Gastrointestinal: Nausea Objective Exam General Appearance: no apparent distress, alert Neurologic Exam: oriented x 3, cooperative, other (limited affect as usual) Skin Exam: normal color, warm, dry, No rash Eye Exam: eyes nml inspection Ears, Nose, Throat Exam: moist mucous membranes Neck Exam: normal inspection Respiratory Exam: normal breath sounds, lungs clear, No crackles/rales, No rhonchi, No wheezing Cardiovascular Exam: regular rate/rhythm, normal heart sounds, No murmur Gastrointestinal/Abdomen Exam: soft, normal bowel sounds, tenderness (gen, diffuse) Extremity Exam: normal inspection, No pedal edema, No swelling Back Exam: normal inspection, No rash OBJECTIVE DATA Vital Signs: Vital Signs - 24 hr Temp Pulse Resp BP Pulse Ox 06/25/22 12:00 98.0 F 81 16 123/71 99 06/25/22 07:30 99 06/25/22 06:35 80 148/96 06/25/22 03:41 97.4 F 88 20 180/108 97 06/24/22 23:51 83 16 131/69 98 06/24/22 19:52 98.7 F 87 17 113/68 96 06/24/22 16:00 98.6 F 85 16 136/80 97 06/24/22 15:03 89 06/24/22 14:00 81 26 H Pain Assessment - Last Documented Pain Intensity 0 Pain Scale Used 0-10 Pain Scale Intake and Output: Intake & Output 06/23/22 06/24/22 06/25/22 06/26/22 12:59 11:59 11:59 11:59 Intake Total 6602 Output Total 4739 Balance 1827 Weight 74 kg Lab Results: Lab Results-Last 24 Hours 06/24/22 06/24/22 06/25/22 Range/Units 17:00 19:55 05:00 WBC (4.0-10.5) x10^3/uL RBC (4.1-5.6) x10^6/uL Hgb (12.5-18.0) g/dL Hct (42-50) % MCV (78-100) fL MCH (26-32) pg MCHC (32-36) g/dL RDW (11.5-14.0) % Plt Count (150-450) x10^3/uL MPV (7.5-11.0) fL Sodium 123 L (137-145) mmol/L Potassium 5.3 H D (3.5-5.1) mmol/L Chloride 94 L (98-107) mmol/L Carbon Dioxide 19 L (22-30) mmol/L Anion Gap 14.7 (5-15) MEQ/L BUN 27 H (9-20) mg/dL Creatinine 2.64 H (0.66-1.25) mg/dL Estimated GFR 29.3 ML/MIN Glucose 414 H (74-106) mg/dL POC Glucometer 248 H 359 H (74 to 106) mg/dL Calcium 7.6 L (8.4-10.2) mg/dL 06/25/22 06/25/22 06/25/22 Range/Units 05:02 06:00 11:31 WBC 7.8 (4.0-10.5) x10^3/uL RBC 2.74 L (4.1-5.6) x10^6/uL Hgb 7.7 L (12.5-18.0) g/dL Hct 23.5 L (42-50) % MCV 85.8 (78-100) fL MCH 28.1 (26-32) pg MCHC 32.8 (32-36) g/dL RDW 11.6 (11.5-14.0) % Plt Count 283 (150-450) x10^3/uL MPV 7.9 (7.5-11.0) fL Sodium (137-145) mmol/L Potassium (3.5-5.1) mmol/L Chloride (98-107) mmol/L Carbon Dioxide (22-30) mmol/L Anion Gap (5-15) MEQ/L BUN (9-20) mg/dL Creatinine (0.66-1.25) mg/dL Estimated GFR ML/MIN Glucose (74-106) mg/dL POC Glucometer 440 H 214 H (74 to 106) mg/dL Calcium (8.4-10.2) mg/dL Multi-Disciplinary Progress Notes: Multi-Disciplinary Progress Notes 06/25/22 10:27 Case Management Note by Nona Carranza REFERRAL FAXED TO [facility] PER DR. VERONICA REQUEST Initialized on 06/25/22 10:27 - END OF NOTE 06/25/22 10:21 Case Management Note by Nona Carranza Addendum entered by Nona Carranza 06/25/22 10:23: PLACED ON CHART FOR MD TO SEE Original Note: CALLED [facility] S/W PHARMACIST IRCKY- LAST TIME PATIENT PICKED UP INSULIN WAS THE END OF . PATIENT HAS AN ACTIVE ADMELOG SCRIPT FOR 10-15 UNITS TID WITH REFILLS AVAILABLE. Initialized on 06/25/22 10:21 - END OF NOTE 06/24/22 21:19 Nutrition Note by Erika Merritt F/u note: Diet resumed to full liquids with 100% po intake. Labs 06/24= BUN 35, Cr 3.16, glu 359, hgb 7.8, hct 23.5. Pt requesting diet be advanced to soft; recommend 1800CC diet. goal #1)maintain po intake >=75% #2) glu to decrease. Will monitor and f/u prn. KAVYA Mims Initialized on 06/24/22 21:19 - END OF NOTE Assessment/Plan (1) Diabetes mellitus type I Current Visit: No Status: Chronic Onset Date: ~05/30/18 Qualifiers: Diabetes mellitus complication status: with kidney complications Diabetes mellitus complication detail: with nephropathy Qualified Code(s): E10.21 - Type 1 diabetes mellitus with diabetic nephropathy Assessment & Plan: Not controlled. Pt is noncompliant. Agree with pt applying for disability, particularly with his recent multiple hospital admissions. (2) Hypertension Current Visit: No Status: Chronic Onset Date: ~05/30/18 Qualifiers: Hypertension type: renovascular hypertension Qualified Code(s): I15.0 - Renovascular hypertension Assessment & Plan: He just restarted BP meds yesterday - has once daily elevated BP > 180 systolic. Continue to observe. Code(s): I10 - ESSENTIAL (PRIMARY) HYPERTENSION (3) Pancreatitis Current Visit: Yes Status: Acute Qualifiers: Chronicity: acute Pancreatitis type: unspecified pancreatitis type Acute pancreatitis complication: no infection or necrosis Qualified Code(s): K85.90 - Acute pancreatitis without necrosis or infection, unspecified Assessment & Plan: LIpase was still 1266 yesterday. Still awaiting today's number - if not dec reasing, would re-image CT abd/pelvis. Code(s): K85.90 - ACUTE PANCREATITIS WITHOUT NECROSIS OR INFECTION, UNSP (4) Acute on chronic renal failure Current Visit: Yes Status: Acute Qualifiers: Acute renal failure type: unspecified Chronic kidney disease stage: stage 5, not on chronic dialysis Qualified Code(s): N17.9 - Acute kidney failure, unspecified; N18.5 - Chronic kidney disease, stage 5 Assessment & Plan: eGFR is the best today that it's been since renal failure started in [facility] in February 2022 (today is 29.3). Code(s): N17.9 - ACUTE KIDNEY FAILURE, UNSPECIFIED; N18.9 - CHRONIC KIDNEY DISEASE, UNSPECIFIED (5) Non compliance w medication regimen Current Visit: No Status: Chronic Code(s): Z91.14 - PATIENT'S OTHER NONCOMPLIANCE WITH MEDICATION REGIMEN (6) Hyponatremia Current Visit: Yes Status: Acute Assessment & Plan: changed IV fluids to NS. Code(s): E87.1 - HYPO-OSMOLALITY AND HYPONATREMIA (7) Polysubstance abuse Current Visit: No Status: Chronic Code(s): F19.10 - OTHER PSYCHOACTIVE SUBSTANCE ABUSE, UNCOMPLICATED (8) Tobacco abuse Current Visit: Yes Status: Chronic Assessment & Plan: on nicoderm patch Code(s): Z72.0 - TOBACCO USE (9) Nausea Current Visit: Yes Status: Chronic Code(s): R11.0 - NAUSEA (10) Anemia Current Visit: No Status: Chronic Qualifiers: Anemia type: unspecified type Qualified Code(s): D64.9 - Anemia, unspecified Assessment & Plan: If hgb < 7 would transfuse. Code(s): D64.9 - ANEMIA, UNSPECIFIED
[2022-06-25] MEDS: DEXTROSE 5% -NACL 0.9% 1000 ML + KCl 20 MEQ 1,000 ML IV SCH (20:17)
[2022-06-25] MEDS: PROTONIX 40 MG IV IV SCH (21:28)
[2022-06-26] MEDS: HUMALOG SQ PRN ×5 (00:05→17:42)
[2022-06-26 05:42] LABS: Hematocrit 21.4 % (42-50); Hemoglobin 7.2 g/dL (12.5-18.0); Mean Cell Volume 84.9 fL (78-100); Mean Corpuscular Hemoglobin 28.6 pg (26-32); Mean Corpuscular Hgb Concent. 33.6 g/dL (32-36); Mean Platelet Volume 8.3 fL (7.5-11.0); Platelet Count 273 x10^3/uL (150-450); Red Blood Count 2.52 x10^6/uL (4.1-5.6); Red Cell Distribution Width 11.5 % (11.5-14.0)
[2022-06-26 06:08] LABS: ANION GAP 6.8 MEQ/L (5-15); Calcium 7.7 mg/dL (8.4-10.2); Creatinine 1 2.57 mg/dL (0.66-1.25); EST GLOMERULAR FILTRATION RATE 30.2 ML/MIN
[2022-06-26] MEDS: Sodium Chloride 0.9% 1000 ML 1,000 ML IV SCH ×3 (07:30→17:41)
[2022-06-26] MEDS: Nicoderm CQ 21 MG TOP SCH (09:45)
[2022-06-26] MEDS: NORVASC 5 MG PO SCH (09:46)
[2022-06-26] MEDS: Coreg PO SCH ×2 (09:46→23:02)
[2022-06-26] MEDS: Zestril 10 MG PO SCH (09:46)
[2022-06-26] MEDS: Apresoline 25 MG TABLET PO SCH ×3 (09:46→23:02)
[2022-06-26] MEDS: Zofran 4 MG/2 ML VIAL IV PRN (09:47)
[2022-06-26] MEDS: CLONIDINE 0.1 MG TABLET PO PRN (13:09)
[2022-06-26] MEDS: Compazine 10 MG/2 ML IV PRN (13:10)
--- NOTE | 2022-06-26 16:23 | XRAY ---
Indication: Pain. Two-dimensional right upper quadrant abdominal sonogram performed. Comparison: None Visualized liver is enlarged measuring 20.1 cm. No focal solid/cystic hepatic mass or ascites. Gallbladder partially contracted without gallstones, abnormal wall thickening, or pericholecystic fluid. Common bile duct measures 4.2 mm. No intrahepatic biliary distention. Remaining visualized pancreas and right kidney are sonographically unremarkable. Right kidney measures 13.1 cm in length. Impression: Hepatomegaly and partially contracted gallbladder. Remaining right upper quadrant sonogram is negative.
--- NOTE | 2022-06-26 18:56 | PCM.NOTE ---
Date and Time 06/26/22 Subjective Assessment: C/o nausea worse ,feeling weak ,upper abd disomfort. Objective Exam General Appearance: mild distress Neurologic Exam: alert, oriented x 3 Skin Exam: warm, dry, pale Respiratory Exam: normal breath sounds Cardiovascular Exam: regular rate/rhythm Gastrointestinal/Abdomen Exam: soft, tenderness (across upper abd,no guarding) Extremity Exam: normal inspection OBJECTIVE DATA Vital Signs: Vital Signs - 24 hr Temp Pulse Resp BP Pulse Ox 06/26/22 16:00 98.1 F 93 H 16 165/82 96 06/26/22 12:00 97.9 F 85 16 192/91 97 06/26/22 08:00 97.9 F 84 16 186/88 98 06/26/22 04:00 97.8 F 79 15 140/78 97 06/25/22 23:35 97.8 F 78 15 129/74 98 06/25/22 19:57 97.7 F 88 16 139/75 97 Pain Assessment - Last Documented Pain Intensity 0 Pain Scale Used 0-10 Pain Scale Intake and Output: Intake & Output 06/24/22 06/25/22 06/26/22 06/27/22 11:59 11:59 11:59 11:59 Intake Total 6602 1941 Output Total 4716 2300 Balance 1827 1941 -2300 Weight 74 kg 75.3 kg Lab Results: Lab Results-Last 24 Hours 06/25/22 06/25/22 06/26/22 Range/Units 20:30 23:54 04:24 WBC (4.0-10.5) x10^3/uL RBC (4.1-5.6) x10^6/uL Hgb (12.5-18.0) g/dL Hct (42-50) % MCV (78-100) fL MCH (26-32) pg MCHC (32-36) g/dL RDW (11.5-14.0) % Plt Count (150-450) x10^3/uL MPV (7.5-11.0) fL Sodium (137-145) mmol/L Potassium (3.5-5.1) mmol/L Chloride (98-107) mmol/L Carbon Dioxide (22-30) mmol/L Anion Gap (5-15) MEQ/L BUN (9-20) mg/dL Creatinine (0.66-1.25) mg/dL Estimated GFR ML/MIN Glucose (74-106) mg/dL POC Glucometer 358 H 318 H 125 H (74 to 106) mg/dL Calcium (8.4-10.2) mg/dL Lipase (23-300) U/L 06/26/22 06/26/22 06/26/22 Range/Units 04:25 04:30 04:30 WBC 7.0 (4.0-10.5) x10^3/uL RBC 2.52 L (4.1-5.6) x10^6/uL Hgb 7.2 L (12.5-18.0) g/dL Hct 21.4 L (42-50) % MCV 84.9 (78-100) fL MCH 28.6 (26-32) pg MCHC 33.6 (32-36) g/dL RDW 11.5 (11.5-14.0) % Plt Count 273 (150-450) x10^3/uL MPV 8.3 (7.5-11.0) fL Sodium 124 L (137-145) mmol/L Potassium 4.0 D (3.5-5.1) mmol/L Chloride 99 (98-107) mmol/L Carbon Dioxide 23 (22-30) mmol/L Anion Gap 6.8 (5-15) MEQ/L BUN 28 H (9-20) mg/dL Creatinine 2.57 H (0.66-1.25) mg/dL Estimated GFR 30.2 ML/MIN Glucose 161 H (74-106) mg/dL POC Glucometer (74 to 106) mg/dL Calcium 7.7 L (8.4-10.2) mg/dL Lipase 581 H (23-300) U/L 06/26/22 06/26/22 06/26/22 Range/Units 07:39 11:27 11:37 WBC (4.0-10.5) x10^3/uL RBC (4.1-5.6) x10^6/uL Hgb (12.5-18.0) g/dL Hct (42-50) % MCV (78-100) fL MCH (26-32) pg MCHC (32-36) g/dL RDW (11.5-14.0) % Plt Count (150-450) x10^3/uL MPV (7.5-11.0) fL Sodium (137-145) mmol/L Potassium (3.5-5.1) mmol/L Chloride (98-107) mmol/L Carbon Dioxide (22-30) mmol/L Anion Gap (5-15) MEQ/L BUN (9-20) mg/dL Creatinine (0.66-1.25) mg/dL Estimated GFR ML/MIN Glucose (74-106) mg/dL POC Glucometer 290 H 575 H* 580 H* (74 to 106) mg/dL Calcium (8.4-10.2) mg/dL Lipase (23-300) U/L 06/26/22 06/26/22 06/26/22 Range/Units 11:55 14:43 17:11 WBC (4.0-10.5) x10^3/uL RBC (4.1-5.6) x10^6/uL Hgb (12.5-18.0) g/dL Hct (42-50) % MCV (78-100) fL MCH (26-32) pg MCHC (32-36) g/dL RDW (11.5-14.0) % Plt Count (150-450) x10^3/uL MPV (7.5-11.0) fL Sodium (137-145) mmol/L Potassium (3.5-5.1) mmol/L Chloride (98-107) mmol/L Carbon Dioxide (22-30) mmol/L Anion Gap (5-15) MEQ/L BUN (9-20) mg/dL Creatinine (0.66-1.25) mg/dL Estimated GFR ML/MIN Glucose 645 H* (74-106) mg/dL POC Glucometer 469 H 226 H (74 to 106) mg/dL Calcium (8.4-10.2) mg/dL Lipase (23-300) U/L Radiology Exams: Radiology Procedures Category Date Time Status ABDOMINAL-LIMITED [US] Urgent Exams 06/26/22 11:30 Completed Multi-Disciplinary Progress Notes: Multi-Disciplinary Progress Notes 06/26/22 12:45 Case Management Note by Nona Carranza REVIEWED CHART- DO NOT ANTICIPATE ANY CHANGES IN DC PLANS AT THIS TIME Initialized on 06/26/22 12:45 - END OF NOTE Assessment/Plan (1) Abdominal pain, bilateral upper quadrant Status: Acute Assessment & Plan: abd US Code(s): R10.11 - RIGHT UPPER QUADRANT PAIN; R10.12 - LEFT UPPER QUADRANT PAIN (2) Nausea Status: Chronic Assessment & Plan: worse today Code(s): R11.0 - NAUSEA (3) Anemia Status: Chronic Qualifiers: Anemia type: unspecified type Qualified Code(s): D64.9 - Anemia, unspecified Assessment & Plan: monitor Code(s): D64.9 - ANEMIA, UNSPECIFIED (4) DM (diabetes mellitus), type 1, uncontrolled Status: Chronic Qualifiers: Glycemic state: with hyperglycemia Qualified Code(s): E10.65 - Type 1 diabetes mellitus with hyperglycemia Assessment & Plan: increase sliding scale, basal insulin Code(s): [id number] -
[2022-06-26] MEDS: PROTONIX 40 MG IV IV SCH (23:02)
[2022-06-26] MEDS: Lantus Insulin SQ SCH (23:02)
[2022-06-27] MEDS: Sodium Chloride 0.9% 1000 ML 1,000 ML IV SCH (03:45)
[2022-06-27 05:21] LABS: Absolute Neutrophil Ct (ANC) 8.29 x10^3/uL (1.4-6.9); Basophil (Absolute #) 0.04 x10^3/uL (0-0.4); Eosinophil % 5.4 % (0.00-5.0); Eosinophil (Absolute #) 0.58 x10^3/uL (0-0.5); Hematocrit 24.4 % (42-50); Hemoglobin 8.2 g/dL (12.5-18.0); Lymphocyte (Absolute #) 0.61 x10^3/uL (1.0-4.6); Lymphocytes % 5.7 % (24.0-44.0); Mean Corpuscular Hemoglobin 27.9 pg (26-32); Mean Corpuscular Hgb Concent. 33.6 g/dL (32-36); Mean Platelet Volume 8.4 fL (7.5-11.0); Monocyte (Absolute #) 1.04 x10^3/uL (0.0-1.3); Monocytes % 9.8 % (0.0-12.0); Neutrophil % 77.9 % (36.0-66.0); Platelet Count 357 x10^3/uL (150-450); Red Blood Count 2.94 x10^6/uL (4.1-5.6); Red Cell Distribution Width 11.7 % (11.5-14.0); White Blood Count 10.7 x10^3/uL (4.0-10.5)
[2022-06-27 06:37] LABS: ANION GAP 12.6 MEQ/L (5-15); BILIRUBIN,TOTAL 0.3 mg/dL (0.2-1.3); Calcium 8.3 mg/dL (8.4-10.2); Creatinine 1 2.71 mg/dL (0.66-1.25); EST GLOMERULAR FILTRATION RATE 28.4 ML/MIN; Potassium 4.7 mmol/L (3.5-5.1); Total Protein 6.5 g/dL (6.3-8.2)
[2022-06-27] MEDS: HUMALOG SQ PRN ×4 (08:25→21:07)
[2022-06-27] MEDS: Zestril 10 MG PO SCH (09:09)
[2022-06-27] MEDS: Coreg PO SCH ×2 (09:09→21:06)
[2022-06-27] MEDS: NORVASC 5 MG PO SCH (09:09)
[2022-06-27] MEDS: Apresoline 25 MG TABLET PO SCH ×3 (09:09→21:06)
[2022-06-27] MEDS: Nicoderm CQ 21 MG TOP SCH (11:05)
--- NOTE | 2022-06-27 12:58 | PCM.NOTE ---
Date and Time: 06/27/22 1252 Subjective Assessment: He is feeling good, franc po (had some nausea with crushing pills and putting in pudding, it didn't taste good). - Review of Systems Constitutional: No Fever Respiratory: No Cough Objective Exam General Appearance: no apparent distress Neurologic Exam: oriented x 3, cooperative Skin Exam: normal color, warm, dry, No rash Eye Exam: eyes nml inspection Ears, Nose, Throat Exam: moist mucous membranes Neck Exam: normal inspection Respiratory Exam: normal breath sounds, lungs clear, No crackles/rales, No rhonchi, No wheezing Cardiovascular Exam: regular rate/rhythm, normal heart sounds, No murmur Gastrointestinal/Abdomen Exam: soft, normal bowel sounds, No tenderness, No distention, No mass, No guarding, No rebound Extremity Exam: No pedal edema, No swelling Back Exam: normal inspection, No CVA tenderness OBJECTIVE DATA Vital Signs: Vital Signs - 24 hr Temp Pulse Resp BP Pulse Ox 06/27/22 11:47 97.2 F 89 17 165/86 97 06/27/22 08:00 97.8 F 85 17 180/97 97 06/27/22 04:00 97.7 F 80 16 131/67 98 06/26/22 23:35 98.2 F 82 18 124/64 98 06/26/22 20:00 97.8 F 79 16 95/52 97 06/26/22 16:00 98.1 F 93 H 16 165/82 96 Pain Assessment - Last Documented Pain Intensity 0 Pain Scale Used 0-10 Pain Scale Intake and Output: Intake & Output 06/25/22 06/26/22 06/27/22 06/28/22 11:59 11:59 11:59 11:59 Intake Total 6602 1941 3064 Output Total 5511 7775 Balance 1827 1941 -1311 Weight 74 kg 75.3 kg 74.1 kg Lab Results: Lab Results-Last 24 Hours 06/26/22 06/26/22 06/26/22 Range/Units 14:43 17:11 20:47 WBC (4.0-10.5) x10^3/uL RBC (4.1-5.6) x10^6/uL Hgb (12.5-18.0) g/dL Hct (42-50) % MCV (78-100) fL MCH (26-32) pg MCHC (32-36) g/dL RDW (11.5-14.0) % Plt Count (150-450) x10^3/uL MPV (7.5-11.0) fL Gran % (36.0-66.0) % Immature Gran % (Auto) (0.00-0.4) % Nucleat RBC Rel Count (0.00-0.1) % Eos # (Auto) (0-0.5) x10^3/uL Immature Gran # (Auto) (0.00-0.03) x10^3u/L Absolute Lymphs (auto) (1.0-4.6) x10^3/uL Absolute Monos (auto) (0.0-1.3) x10^3/uL Absolute Nucleated RBC (0.00-0.01) x10^3u/L Lymphocytes % (24.0-44.0) % Monocytes % (0.0-12.0) % Eosinophils % (0.00-5.0) % Basophils % (0.0-0.4) % Absolute Granulocytes (1.4-6.9) x10^3/uL Basophils # (0-0.4) x10^3/uL Sodium (137-145) mmol/L Potassium (3.5-5.1) mmol/L Chloride (98-107) mmol/L Carbon Dioxide (22-30) mmol/L Anion Gap (5-15) MEQ/L BUN (9-20) mg/dL Creatinine (0.66-1.25) mg/dL Estimated GFR ML/MIN Glucose (74-106) mg/dL POC Glucometer 469 H 226 H 81 (74 to 106) mg/dL Calcium (8.4-10.2) mg/dL Total Bilirubin (0.2-1.3) mg/dL AST (17-59) U/L ALT (0-50) U/L Alkaline Phosphatase (38-126) U/L Serum Total Protein (6.3-8.2) g/dL Albumin (3.5-5.0) g/dL Amylase (30-110) U/L Lipase (23-300) U/L 11/08/22 11/09/22 11/09/22 Range/Units 22:50 04:55 04:55 WBC 10.7 H (4.0-10.5) x10^3/uL RBC 2.94 L (4.1-5.6) x10^6/uL Hgb 8.2 L (12.5-18.0) g/dL Hct 24.4 L (42-50) % MCV 83.0 (78-100) fL MCH 27.9 (26-32) pg MCHC 33.6 (32-36) g/dL RDW 11.7 (11.5-14.0) % Plt Count 357 (150-450) x10^3/uL MPV 8.4 (7.5-11.0) fL Gran % 77.9 H (36.0-66.0) % Immature Gran % (Auto) 0.8 H (0.00-0.4) % Nucleat RBC Rel Count 0.0 (0.00-0.1) % Eos # (Auto) 0.58 H (0-0.5) x10^3/uL Immature Gran # (Auto) 0.09 H (0.00-0.03) x10^3u/L Absolute Lymphs (auto) 0.61 L (1.0-4.6) x10^3/uL Absolute Monos (auto) 1.04 (0.0-1.3) x10^3/uL Absolute Nucleated RBC 0.00 (0.00-0.01) x10^3u/L Lymphocytes % 5.7 L (24.0-44.0) % Monocytes % 9.8 (0.0-12.0) % Eosinophils % 5.4 H (0.00-5.0) % Basophils % 0.4 (0.0-0.4) % Absolute Granulocytes 8.29 H (1.4-6.9) x10^3/uL Basophils # 0.04 (0-0.4) x10^3/uL Sodium 126 L (137-145) mmol/L Potassium 4.7 (3.5-5.1) mmol/L Chloride 98 (98-107) mmol/L Carbon Dioxide 20 L (22-30) mmol/L Anion Gap 12.6 (5-15) MEQ/L BUN 38 H (9-20) mg/dL Creatinine 2.71 H (0.66-1.25) mg/dL Estimated GFR 28.4 ML/MIN Glucose 301 H (74-106) mg/dL POC Glucometer 190 H (74 to 106) mg/dL Calcium 8.3 L (8.4-10.2) mg/dL Total Bilirubin 0.30 (0.2-1.3) mg/dL AST 18 (17-59) U/L ALT 15 (0-50) U/L Alkaline Phosphatase 173 H (38-126) U/L Serum Total Protein 6.5 (6.3-8.2) g/dL Albumin 3.0 L (3.5-5.0) g/dL Amylase 152 H (30-110) U/L Lipase 821 H (23-300) U/L 06/27/22 06/27/22 Range/Units 07:03 11:40 WBC (4.0-10.5) x10^3/uL RBC (4.1-5.6) x10^6/uL Hgb (12.5-18.0) g/dL Hct (42-50) % MCV (78-100) fL MCH (26-32) pg MCHC (32-36) g/dL RDW (11.5-14.0) % Plt Count (150-450) x10^3/uL MPV (7.5-11.0) fL Gran % (36.0-66.0) % Immature Gran % (Auto) (0.00-0.4) % Nucleat RBC Rel Count (0.00-0.1) % Eos # (Auto) (0-0.5) x10^3/uL Immature Gran # (Auto) (0.00-0.03) x10^3u/L Absolute Lymphs (auto) (1.0-4.6) x10^3/uL Absolute Monos (auto) (0.0-1.3) x10^3/uL Absolute Nucleated RBC (0.00-0.01) x10^3u/L Lymphocytes % (24.0-44.0) % Monocytes % (0.0-12.0) % Eosinophils % (0.00-5.0) % Basophils % (0.0-0.4) % Absolute Granulocytes (1.4-6.9) x10^3/uL Basophils # (0-0.4) x10^3/uL Sodium (137-145) mmol/L Potassium (3.5-5.1) mmol/L Chloride (98-107) mmol/L Carbon Dioxide (22-30) mmol/L Anion Gap (5-15) MEQ/L BUN (9-20) mg/dL Creatinine (0.66-1.25) mg/dL Estimated GFR ML/MIN Glucose (74-106) mg/dL POC Glucometer 246 H 181 H (74 to 106) mg/dL Calcium (8.4-10.2) mg/dL Total Bilirubin (0.2-1.3) mg/dL AST (17-59) U/L ALT (0-50) U/L Alkaline Phosphatase (38-126) U/L Serum Total Protein (6.3-8.2) g/dL Albumin (3.5-5.0) g/dL Amylase (30-110) U/L Lipase (23-300) U/L Radiology Exams: Radiology Procedures Category Date Time Status ABDOMINAL-LIMITED [US] Urgent Exams 06/26/22 11:30 Completed Multi-Disciplinary Progress Notes: Multi-Disciplinary Progress Notes 06/27/22 12:45 Case Management Note by Nona Carranza A REFILL WAS CALLED IN TO [facility]ENEC[facility] RODRIGUEZ FOR TEST STRIPS AND LANCETS Initialized on 06/27/22 12:45 - END OF NOTE Assessment/Plan (1) Diabetes mellitus type I Current Visit: No Status: Chronic Onset Date: ~05/30/18 Qualifiers: Diabetes mellitus complication status: with kidney complications Diabetes mellitus complication detail: with nephropathy Qualified Code(s): E10.21 - Type 1 diabetes mellitus with diabetic nephropathy Assessment & Plan: Poorly controlled. Supplies have been sent to pharmacy. F/u with me is scheduled. (2) Hyponatremia Current Visit: Yes Status: Acute Assessment & Plan: Much worse in Nov, I have stopped his IV fluids and recheck in a.m. If still low, will consult nephrology. Code(s): E87.1 - HYPO-OSMOLALITY AND HYPONATREMIA (3) Hypertension Current Visit: No Status: Chronic Onset Date: ~05/30/18 Qualifiers: Hypertension type: renovascular hypertension Qualified Code(s): I15.0 - Renovascular hypertension Assessment & Plan: labile Code(s): I10 - ESSENTIAL (PRIMARY) HYPERTENSION (4) Pancreatitis Current Visit: Yes Status: Acute Qualifiers: Chronicity: acute Pancreatitis type: unspecified pancreatitis type Acute pancreatitis complication: no infection or necrosis Qualified Code(s): K85.90 - Acute pancreatitis without necrosis or infection, unspecified Assessment & Plan: Still elevated lipase, 851. He is tolerating po and nontender this morning. Code(s): K85.90 - ACUTE PANCREATITIS WITHOUT NECROSIS OR INFECTION, UNSP (5) Acute on chronic renal failure Current Visit: Yes Status: Acute Qualifiers: Acute renal failure type: unspecified Chronic kidney disease stage: stage 5, not on chronic dialysis Qualified Code(s): N17.9 - Acute kidney failure, unspecified; N18.5 - Chronic kidney disease, stage 5 Code(s): N17.9 - ACUTE KIDNEY FAILURE, UNSPECIFIED; N18.9 - CHRONIC KIDNEY DISEASE, UNSPECIFIED (6) Non compliance w medication regimen Current Visit: No Status: Chronic Code(s): Z91.14 - PATIENT'S OTHER NONCOMPLIANCE WITH MEDICATION REGIMEN (7) Polysubstance abuse Current Visit: No Status: Chronic Code(s): F19.10 - OTHER PSYCHOACTIVE SUBSTANCE ABUSE, UNCOMPLICATED (8) Tobacco abuse Current Visit: Yes Status: Chronic Assessment & Plan: Not interested in quitting, we discussed today. Code(s): Z72.0 - TOBACCO USE (9) Nausea Current Visit: Yes Status: Chronic Code(s): R11.0 - NAUSEA (10) Anemia Current Visit: No Status: Chronic Qualifiers: Anemia type: unspecified type Qualified Code(s): D64.9 - Anemia, unspe cified Code(s): D64.9 - ANEMIA, UNSPECIFIED
[2022-06-27] MEDS: PROTONIX 40 MG IV IV SCH (21:06)
[2022-06-27] MEDS: Lantus Insulin SQ SCH (21:06)
[2022-06-28 05:46] LABS: Hematocrit 24.2 % (42-50); Hemoglobin 7.9 g/dL (12.5-18.0); Mean Cell Volume 85.5 fL (78-100); Mean Corpuscular Hemoglobin 27.9 pg (26-32); Mean Corpuscular Hgb Concent. 32.6 g/dL (32-36); Mean Platelet Volume 8.4 fL (7.5-11.0); Platelet Count 385 x10^3/uL (150-450); Red Blood Count 2.83 x10^6/uL (4.1-5.6); Red Cell Distribution Width 11.8 % (11.5-14.0); White Blood Count 11.8 x10^3/uL (4.0-10.5)
[2022-06-28 06:15] LABS: ANION GAP 11.5 MEQ/L (5-15); Calcium 8.3 mg/dL (8.4-10.2); Creatinine 1 2.6 mg/dL (0.66-1.25); EST GLOMERULAR FILTRATION RATE 29.8 ML/MIN; Potassium 3.7 mmol/L (3.5-5.1)
[2022-06-28] MEDS: HUMALOG SQ PRN ×2 (11:57→23:09)
[2022-06-28] MEDS: Nicoderm CQ 21 MG TOP SCH (12:01)
--- NOTE | 2022-06-28 14:22 | XRAY ---
Indication: Persistent pancreatitis. Multiple contiguous images obtained through the abdomen only without contrast. Comparison: June 22, 2022 Lung bases demonstrates new minimal patchy left lower lobe airspace disease. Stable 3 mm peripheral right lower lobe noncalcified nodule. Heart is not enlarged. Stomach is now moderately distended with food/fluid. Noncontrasted stomach and visualized bowel loops nonobstructed. New moderate diffuse colonic fecal debris. Gallbladder contracted without gallstones. No free fluid/air. Remaining liver, gallbladder, pancreas, spleen, adrenal glands, kidneys, and proximal ureters are unremarkable for noncontrast exam. Stable minimal aortoiliac calcifications without AAA. Osseous structures intact again with bilateral L5 spondylolysis without listhesis. Impression: 1. New posterior left lower lobe patchy airspace disease. 2. New diffuse fecal stasis. 3. Stable right lower lobe noncalcified micronodule and L5 spondylolysis without listhesis. 4. Remaining CT abdomen without contrast exam is again negative.
[2022-06-28] MEDS ORDERED: Catapres TTS-2 PATCH TOP SCH (15:00)
[2022-06-28] MEDS: Zestril 10 MG PO SCH (15:07)
[2022-06-28] MEDS: Apresoline 25 MG TABLET PO SCH ×2 (15:07→23:11)
[2022-06-28] MEDS: Coreg PO SCH ×3 (15:07→23:10)
[2022-06-28] MEDS: NORVASC 5 MG PO SCH (15:07)
[2022-06-28] MEDS: Maxipime 2 GM** 2 G in Dextrose 5%/Water IV Soln. 100ML PLUS BAG 100 ML IV SCH ×2 (15:52→23:09)
[2022-06-28] MEDS: ENOXAPARIN SODIUM SQ SCH (15:52)
--- NOTE | 2022-06-28 16:36 | PCM.NOTE ---
Date and Time: 06/28/22 1631 Subjective Assessment: Pt feeling pretty good today. BP was 180/97 this morning. He tells me he has a problem taking pills, had an overdose by pills before and can hardly take them since then. His nurse confirms he has a difficult time getting them down. Denies any cocaine use, and any use of illicit drugs in the last 1 year. - Review of Systems Constitutional: No Fever Abdominal/Gastrointestinal: Nausea Objective Exam General Appearance: no apparent distress, alert Neurologic Exam: oriented x 3, cooperative Skin Exam: normal color, warm, dry, No rash Eye Exam: eyes nml inspection Ears, Nose, Throat Exam: moist mucous membranes Neck Exam: normal inspection Respiratory Exam: normal breath sounds, lungs clear, No crackles/rales, No rhonchi, No wheezing Cardiovascular Exam: regular rate/rhythm, No murmur Gastrointestinal/Abdomen Exam: soft, normal bowel sounds, No tenderness, No distention, No mass, No guarding, No rebound Extremity Exam: normal inspection, No pedal edema, No swelling Back Exam: normal inspection, No rash OBJECTIVE DATA Vital Signs: Vital Signs - 24 hr Temp Pulse Resp BP Pulse Ox 06/28/22 12:00 98.2 F 95 H 16 157/85 95 06/28/22 08:00 96.9 F 92 H 16 186/100 97 06/28/22 04:00 98.7 F 86 20 122/66 97 06/27/22 23:56 98.6 F 89 18 146/79 99 06/27/22 20:00 98.3 F 88 18 130/76 98 Pain Assessment - Last Documented Pain Intensity 0 Pain Scale Used 0-10 Pain Scale Intake and Output: Intake & Output 06/26/22 06/27/22 06/28/22 06/29/22 11:59 11:59 11:59 11:59 Intake Total 1941 3064 1800 Output Total 7482 1450 Balance 1941 -1311 350 Weight 75.3 kg 74.1 kg Lab Results: Lab Results-Last 24 Hours 06/27/22 06/28/22 06/28/22 Range/Units 19:30 04:35 04:35 WBC 11.8 H (4.0-10.5) x10^3/uL RBC 2.83 L (4.1-5.6) x10^6/uL Hgb 7.9 L (12.5-18.0) g/dL Hct 24.2 L (42-50) % MCV 85.5 (78-100) fL MCH 27.9 (26-32) pg MCHC 32.6 (32-36) g/dL RDW 11.8 (11.5-14.0) % Plt Count 385 (150-450) x10^3/uL MPV 8.4 (7.5-11.0) fL Sodium 129 L (137-145) mmol/L Potassium 3.7 D (3.5-5.1) mmol/L Chloride 101 (98-107) mmol/L Carbon Dioxide 20 L (22-30) mmol/L Anion Gap 11.5 (5-15) MEQ/L BUN 36 H (9-20) mg/dL Creatinine 2.60 H (0.66-1.25) mg/dL Estimated GFR 29.8 ML/MIN Glucose 86 (74-106) mg/dL POC Glucometer 157 H (74 to 106) mg/dL Calcium 8.3 L (8.4-10.2) mg/dL Lipase (23-300) U/L 06/28/22 06/28/22 06/28/22 Range/Units 04:35 06:17 06:18 WBC (4.0-10.5) x10^3/uL RBC (4.1-5.6) x10^6/uL Hgb (12.5-18.0) g/dL Hct (42-50) % MCV (78-100) fL MCH (26-32) pg MCHC (32-36) g/dL RDW (11.5-14.0) % Plt Count (150-450) x10^3/uL MPV (7.5-11.0) fL Sodium (137-145) mmol/L Potassium (3.5-5.1) mmol/L Chloride (98-107) mmol/L Carbon Dioxide (22-30) mmol/L Anion Gap (5-15) MEQ/L BUN (9-20) mg/dL Creatinine (0.66-1.25) mg/dL Estimated GFR ML/MIN Glucose (74-106) mg/dL POC Glucometer 68 L 64 L (74 to 106) mg/dL Calcium (8.4-10.2) mg/dL Lipase 925 H (23-300) U/L 06/28/22 06/28/22 Range/Units 07:13 11:41 WBC (4.0-10.5) x10^3/uL RBC (4.1-5.6) x10^6/uL Hgb (12.5-18.0) g/dL Hct (42-50) % MCV (78-100) fL MCH (26-32) pg MCHC (32-36) g/dL RDW (11.5-14.0) % Plt Count (150-450) x10^3/uL MPV (7.5-11.0) fL Sodium (137-145) mmol/L Potassium (3.5-5.1) mmol/L Chloride (98-107) mmol/L Carbon Dioxide (22-30) mmol/L Anion Gap (5-15) MEQ/L BUN (9-20) mg/dL Creatinine (0.66-1.25) mg/dL Estimated GFR ML/MIN Glucose (74-106) mg/dL POC Glucometer 143 H 299 H (74 to 106) mg/dL Calcium (8.4-10.2) mg/dL Lipase (23-300) U/L Radiology Exams: Radiology Procedures Category Date Time Status ABDOMEN WITHOUT CONTRAST [CT] Urgent Exams 06/28/22 12:17 Completed Multi-Disciplinary Progress Notes: Multi-Disciplinary Progress Notes 06/28/22 14:58 Nutrition Note by Erika Merritt F/u Note: Pt receiving an 1800CC diet. note pt stating having trouble swallowing pills. adm weight 73kg; current weight 74.1kg.Labs 06/28= Na 129, BUN 36, Cr 2.6, hgb 7.9, hct 24.2, glu wnl goal: #1) po intake >=75% #2) maintain glu wnl. Will monitor and f/u prn. TKAVYA Johnson Initialized on 06/28/22 14:58 - END OF NOTE 06/28/22 10:30 Case Management Note by Nona Carranza REVIEWED CHART- NO NEW NEEDS REGARDING DC AT THIS TIME. DC PLAN HAS BEEN IN PLACE FOR SEVERAL DAYS- NO CHANGES AT THIS TIME Initialized on 06/28/22 10:30 - END OF NOTE Assessment/Plan (1) Pneumonia Current Visit: Yes Status: Acute Qualifiers: Pneumonia type: due to unspecified organism Laterality: left Lung location: lower lobe of lung Qualified Code(s): J18.9 - Pneumonia, unspecified organism Assessment & Plan: Starting pt on zosyn (treating as a hospital acquired pneumonia). He got 1 dose of antibiotic in the last 90 days, so will treat as if he did not get any since he did not have anywhere near a full course. Code(s): J18.9 - PNEUMONIA, UNSPECIFIED ORGANISM (2) Pancreatitis Current Visit: Yes Status: Acute Qualifiers: Chronicity: acute Pancreatitis type: unspecified pancreatitis type Acute pancreatitis complication: no infection or necrosis Qualified Code(s): K85.90 - Acute pancreatitis without necrosis or infection, unspecified Assessment & Plan: repeated CT due to increased lipase today (900) - will resume fluids. Code(s): K85.90 - ACUTE PANCREATITIS WITHOUT NECROSIS OR INFECTION, UNSP (3) Diabetes mellitus type I Current Visit: No Status: Chronic Onset Date: ~05/30/18 Qualifiers: Diabetes mellitus complication status: with kidney complications Diabetes mellitus complication detail: with nephropathy Qualified Code(s): E10.21 - Type 1 diabetes mellitus with diabetic nephropathy Assessment & Plan: His sugars continue to be labile. (4) Hyponatremia Current Visit: Yes Status: Chronic Assessment & Plan: improved off of fluids. Code(s): E87.1 - HYPO-OSMOLALITY AND HYPONATREMIA (5) Hypertension Current Visit: No Status: Chronic Onset Date: ~05/30/18 Qualifiers: Hypertension type: renovascular hypertension Qualified Code(s): I15.0 - Renovascular hypertension Assessment & Plan: labile. Will try changing his BP meds since he will likely not be taking all the pills as prescribed. Will start clonidine 0.2 mg patch weekly, and carvedilol 6.25 po BID. May need amlodipine daily on top of that, or lisinopril, or hydralazine. Code(s): I10 - ESSENTIAL (PRIMARY) HYPERTENSION (6) Acute on chronic renal failure Current Visit: Yes Status: Acute Qualifiers: Acute renal failure type: unspecified Chronic kidney disease stage: stage 5, not on chronic dialysis Qualified Code(s): N17.9 - Acute kidney failure, unspecified; N18.5 - Chronic kidney disease, stage 5 Code(s): N17.9 - ACUTE KIDNEY FAILURE, UNSPECIFIED; N18.9 - CHRONIC KIDNEY DISEASE, UNSPECIFIED (7) Non compliance w medication regimen Current Visit: No Status: Chronic Code(s): Z91.14 - PATIENT'S OTHER NONCOMPLIANCE WITH MEDICATION REGIMEN (8) Nausea Current Visit: Yes Status: Chronic Code(s): R11.0 - NAUSEA (9) Anemia Current Visit: No Status: Chronic Qualifiers: Anemia type: unspecified type Qualified Code(s): D64.9 - Anemia, unspecified Code(s): D64.9 - ANEMIA, UNSPECIFIED (10) Tobacco abuse Current Visit: Yes Status: Chronic Code(s): Z72.0 - TOBACCO USE (11) Leukocytosis Current Visit: Yes Status: Resolved Qualifiers: Leukocytosis type: unspecified Qualified Code(s): D72.829 - Elevated white blood cell count, unspecified Assessment & Plan: increased over the past 2 days Code(s): D72.829 - ELEVATED WHITE BLOOD CELL COUNT, UNSPECIFIED (12) DVT prophylaxis Current Visit: Yes Status: Acute Assessment & Plan: started lovenox 40 SQ daily (may be decreased by pharmacy) Code(s): Z29.9 - ENCOUNTER FOR PROPHYLACTIC MEASURES, UNSPECIFIED
[2022-06-28] MEDS: Sodium Chloride 0.9% W/ 20 mEq KCl/LITER 1,000 ML IV SCH (17:30)
[2022-06-28] MEDS: Lantus Insulin SQ SCH (23:09)
[2022-06-28] MEDS: PROTONIX 40 MG IV IV SCH (23:10)
[2022-06-29] MEDS: Sodium Chloride 0.9% W/ 20 mEq KCl/LITER 1,000 ML IV SCH ×3 (01:24→17:24)
[2022-06-29 05:54] LABS: Absolute Neutrophil Ct (ANC) 5.48 x10^3/uL (1.4-6.9); Basophil (Absolute #) 0.04 x10^3/uL (0-0.4); Eosinophil % 6.7 % (0.00-5.0); Eosinophil (Absolute #) 0.57 x10^3/uL (0-0.5); Hematocrit 23.9 % (42-50); Lymphocytes % 10.6 % (24.0-44.0); Mean Cell Volume 84.8 fL (78-100); Mean Corpuscular Hemoglobin 28.4 pg (26-32); Mean Corpuscular Hgb Concent. 33.5 g/dL (32-36); Mean Platelet Volume 8.6 fL (7.5-11.0); Monocyte (Absolute #) 1.36 x10^3/uL (0.0-1.3); Neutrophil % 64.3 % (36.0-66.0); Platelet Count 414 x10^3/uL (150-450); Red Blood Count 2.82 x10^6/uL (4.1-5.6); Red Cell Distribution Width 12.2 % (11.5-14.0); White Blood Count 8.5 x10^3/uL (4.0-10.5)
[2022-06-29 06:55] LABS: ALBUMIN 2.9 g/dL (3.5-5.0); ANION GAP 9.4 MEQ/L (5-15); BILIRUBIN,TOTAL 0.3 mg/dL (0.2-1.3); Calcium 8.2 mg/dL (8.4-10.2); Creatinine 1 2.32 mg/dL (0.66-1.25); Total Protein 6.3 g/dL (6.3-8.2)
--- NOTE | 2022-06-29 08:36 | PCM.NOTE ---
Date and Time: 06/29/22832 Subjective Assessment: patient tolerating full liquids, denies abdominal pain today. he has some cough but nonproductive Objective Exam General Appearance: no apparent distress Neurologic Exam: alert, oriented x 3 Respiratory Exam: normal breath sounds, lungs clear, No respiratory distress Cardiovascular Exam: regular rate/rhythm, normal heart sounds Gastrointestinal/Abdomen Exam: soft, No tenderness, No mass OBJECTIVE DATA Vital Signs: Vital Signs - 24 hr Temp Pulse Resp BP Pulse Ox 06/29/22 08:00 97.5 F 68 16 166/91 96 06/29/22 04:00 97.8 F 88 18 133/80 98 06/28/22 23:30 98.7 F 80 18 122/59 95 06/28/22 22:46 99 06/28/22 20:00 97.7 F 96 H 18 166/91 96 06/28/22 16:00 97.3 F 99 H 16 172/95 96 06/28/22 12:00 98.2 F 95 H 16 157/85 95 Pain Assessment - Last Documented Pain Intensity 0 Pain Scale Used 0-10 Pain Scale Intake and Output: Intake & Output 06/26/22 06/27/22 06/28/22 06/29/22 11:59 11:59 11:59 11:59 Intake Total 1941 3064 1800 240 Output Total 4375 1450 1000 Balance 1941 -1311 350 -760 Weight 75.3 kg 74.1 kg 74.3 kg 75.9 kg Lab Results: Lab Results-Last 24 Hours 06/28/22 06/28/22 06/28/22 Range/Units 11:41 16:33 21:46 WBC (4.0-10.5) x10^3/uL RBC (4.1-5.6) x10^6/uL Hgb (12.5-18.0) g/dL Hct (42-50) % MCV (78-100) fL MCH (26-32) pg MCHC (32-36) g/dL RDW (11.5-14.0) % Plt Count (150-450) x10^3/uL MPV (7.5-11.0) fL Gran % (36.0-66.0) % Immature Gran % (Auto) (0.00-0.4) % Nucleat RBC Rel Count (0.00-0.1) % Eos # (Auto) (0-0.5) x10^3/uL Immature Gran # (Auto) (0.00-0.03) x10^3u/L Absolute Lymphs (auto) (1.0-4.6) x10^3/uL Absolute Monos (auto) (0.0-1.3) x10^3/uL Absolute Nucleated RBC (0.00-0.01) x10^3u/L Lymphocytes % (24.0-44.0) % Monocytes % (0.0-12.0) % Eosinophils % (0.00-5.0) % Basophils % (0.0-0.4) % Absolute Granulocytes (1.4-6.9) x10^3/uL Basophils # (0-0.4) x10^3/uL Sodium (137-145) mmol/L Potassium (3.5-5.1) mmol/L Chloride (98-107) mmol/L Carbon Dioxide (22-30) mmol/L Anion Gap (5-15) MEQ/L BUN (9-20) mg/dL Creatinine (0.66-1.25) mg/dL Estimated GFR ML/MIN Glucose (74-106) mg/dL POC Glucometer 299 H 173 H 241 H (74 to 106) mg/dL Calcium (8.4-10.2) mg/dL Total Bilirubin (0.2-1.3) mg/dL AST (17-59) U/L ALT (0-50) U/L Alkaline Phosphatase (38-126) U/L Serum Total Protein (6.3-8.2) g/dL Albumin (3.5-5.0) g/dL Lipase (23-300) U/L 06/29/22 06/29/22 06/29/22 Range/Units 04:00 04:30 04:47 WBC 8.5 (4.0-10.5) x10^3/uL RBC 2.82 L (4.1-5.6) x10^6/uL Hgb 8.0 L (12.5-18.0) g/dL Hct 23.9 L (42-50) % MCV 84.8 (78-100) fL MCH 28.4 (26-32) pg MCHC 33.5 (32-36) g/dL RDW 12.2 (11.5-14.0) % Plt Count 414 (150-450) x10^3/uL MPV 8.6 (7.5-11.0) fL Gran % 64.3 (36.0-66.0) % Immature Gran % (Auto) 1.9 H (0.00-0.4) % Nucleat RBC Rel Count 0.0 (0.00-0.1) % Eos # (Auto) 0.57 H (0-0.5) x10^3/uL Immature Gran # (Auto) 0.16 H (0.00-0.03) x10^3u/L Absolute Lymphs (auto) 0.90 L (1.0-4.6) x10^3/uL Absolute Monos (auto) 1.36 H (0.0-1.3) x10^3/uL Absolute Nucleated RBC 0.00 (0.00-0.01) x10^3u/L Lymphocytes % 10.6 L (24.0-44.0) % Monocytes % 16.0 H (0.0-12.0) % Eosinophils % 6.7 H (0.00-5.0) % Basophils % 0.5 (0.0-0.4) % Absolute Granulocytes 5.48 (1.4-6.9) x10^3/uL Basophils # 0.04 (0-0.4) x10^3/uL Sodium 131 L (137-145) mmol/L Potassium 4.0 (3.5-5.1) mmol/L Chloride 104 (98-107) mmol/L Carbon Dioxide 22 (22-30) mmol/L Anion Gap 9.4 (5-15) MEQ/L BUN 30 H (9-20) mg/dL Creatinine 2.32 H (0.66-1.25) mg/dL Estimated GFR 34.0 ML/MIN Glucose 51 L (74-106) mg/dL POC Glucometer 47 L* (74 to 106) mg/dL Calcium 8.2 L (8.4-10.2) mg/dL Total Bilirubin 0.30 (0.2-1.3) mg/dL AST 17 (17-59) U/L ALT 12 (0-50) U/L Alkaline Phosphatase 131 H (38-126) U/L Serum Total Protein 6.3 (6.3-8.2) g/dL Albumin 2.9 L (3.5-5.0) g/dL Lipase 385 H (23-300) U/L 06/29/22 06/29/22 Range/Units 05:48 07:08 WBC (4.0-10.5) x10^3/uL RBC (4.1-5.6) x10^6/uL Hgb (12.5-18.0) g/dL Hct (42-50) % MCV (78-100) fL MCH (26-32) pg MCHC (32-36) g/dL RDW (11.5-14.0) % Plt Count (150-450) x10^3/uL MPV (7.5-11.0) fL Gran % (36.0-66.0) % Immature Gran % (Auto) (0.00-0.4) % Nucleat RBC Rel Count (0.00-0.1) % Eos # (Auto) (0-0.5) x10^3/uL Immature Gran # (Auto) (0.00-0.03) x10^3u/L Absolute Lymphs (auto) (1.0-4.6) x10^3/uL Absolute Monos (auto) (0.0-1.3) x10^3/uL Absolute Nucleated RBC (0.00-0.01) x10^3u/L Lymphocytes % (24.0-44.0) % Monocytes % (0.0-12.0) % Eosinophils % (0.00-5.0) % Basophils % (0.0-0.4) % Absolute Granulocytes (1.4-6.9) x10^3/uL Basophils # (0-0.4) x10^3/uL Sodium (137-145) mmol/L Potassium (3.5-5.1) mmol/L Chloride (98-107) mmol/L Carbon Dioxide (22-30) mmol/L Anion Gap (5-15) MEQ/L BUN (9-20) mg/dL Creatinine (0.66-1.25) mg/dL Estimated GFR ML/MIN Glucose (74-106) mg/dL POC Glucometer 123 H 173 H (74 to 106) mg/dL Calcium (8.4-10.2) mg/dL Total Bilirubin (0.2-1.3) mg/dL AST (17-59) U/L ALT (0-50) U/L Alkaline Phosphatase (38-126) U/L Serum Total Protein (6.3-8.2) g/dL Albumin (3.5-5.0) g/dL Lipase (23-300) U/L Radiology Exams: Radiology Procedures Category Date Time Status ABDOMEN WITHOUT CONTRAST [CT] Urgent Exams 06/28/22 12:17 Completed Multi-Disciplinary Progress Notes: Multi-Disciplinary Progress Notes 06/28/22 14:58 Nutrition Note by Erika Merritt F/u Note: Pt receiving an 1800CC diet. note pt stating having trouble swallowing pills. adm weight 73kg; current weight 74.1kg.Labs 06/28= Na 129, BUN 36, Cr 2.6, hgb 7.9, hct 24.2, glu wnl goal: #1) po intake >=75% #2) maintain glu wnl. Will monitor and f/u prn. KAVYA Mims Initialized on 06/28/22 14:58 - END OF NOTE 06/28/22 10:30 Case Management Note by Nona Carranza REVIEWED CHART- NO NEW NEEDS REGARDING DC AT THIS TIME. DC PLAN HAS BEEN IN PLACE FOR SEVERAL DAYS- NO CHANGES AT THIS TIME Initialized on 06/28/22 10:30 - END OF NOTE Assessment/Plan (1) Pneumonia Current Visit: Yes Status: Acute Qualifiers: Pneumonia type: due to unspecified organism Laterality: left Lung location: lower lobe of lung Qualified Code(s): J18.9 - Pneumonia, unspecified organism Assessment & Plan: on zosyn due to prolonged hospital stay, wbc normal on room air and afebrile. Code(s): J18.9 - PNEUMONIA, UNSPECIFIED ORGANISM (2) Acute pancreatitis Current Visit: Yes Status: Acute Assessment & Plan: advance to bland diet today, lipase markedly improved. if tolerating bland diet and enzymes don't rebound likely home tomorrow on po abx and resume home insulin regimen Code(s): K85.90 - ACUTE PANCREATITIS WITHOUT NECROSIS OR INFECTION, UNSP (3) DKA, type 1 Current Visit: No Status: Resolved Qualifiers: Diabetes mellitus complication detail: without coma Qualified Code(s): E10.10 - Type 1 diabetes mellitus with ketoacidosis without coma Code(s): E10.10 - TYPE 1 DIABETES MELLITUS WITH KETOACIDOSIS WITHOUT COMA (4) Acute renal failure Current Visit: Yes Status: Acute Qualifiers: (5) Hypertensive urgency Current Visit: Yes Status: Acute Assessment & Plan: much better control on current regimen Code(s): I16.0 - HYPERTENSIVE URGENCY
[2022-06-29] MEDS: ENOXAPARIN SODIUM SQ SCH (09:02)
[2022-06-29] MEDS: Zestril 10 MG PO SCH (09:03)
[2022-06-29] MEDS: Coreg PO SCH ×2 (09:03→21:21)
[2022-06-29] MEDS: Apresoline 25 MG TABLET PO SCH ×2 (09:03→14:52)
[2022-06-29] MEDS: Maxipime 2 GM** 2 G in Dextrose 5%/Water IV Soln. 100ML PLUS BAG 100 ML IV SCH ×2 (09:03→21:21)
[2022-06-29] MEDS: NORVASC 5 MG PO SCH (09:03)
[2022-06-29] MEDS: HUMALOG SQ PRN ×2 (11:38→21:21)
[2022-06-29] MEDS: Nicoderm CQ 21 MG TOP SCH (11:38)
[2022-06-29] MEDS: Lantus Insulin SQ SCH (21:21)
[2022-06-29] MEDS: PROTONIX 40 MG IV IV SCH (21:22)
[2022-06-30] MEDS: Sodium Chloride 0.9% W/ 20 mEq KCl/LITER 1,000 ML IV SCH ×2 (01:56→11:43)
[2022-06-30 06:04] LABS: Absolute Neutrophil Ct (ANC) 3.92 x10^3/uL (1.4-6.9); Basophil (Absolute #) 0.03 x10^3/uL (0-0.4); Eosinophil % 6.1 % (0.00-5.0); Eosinophil (Absolute #) 0.38 x10^3/uL (0-0.5); Hematocrit 21.6 % (42-50); Lymphocyte (Absolute #) 0.68 x10^3/uL (1.0-4.6); Mean Cell Volume 87.1 fL (78-100); Mean Corpuscular Hemoglobin 28.2 pg (26-32); Mean Corpuscular Hgb Concent. 32.4 g/dL (32-36); Mean Platelet Volume 8.3 fL (7.5-11.0); Monocyte (Absolute #) 1.02 x10^3/uL (0.0-1.3); Monocytes % 16.5 % (0.0-12.0); Neutrophil % 63.3 % (36.0-66.0); Platelet Count 352 x10^3/uL (150-450); Red Blood Count 2.48 x10^6/uL (4.1-5.6); Red Cell Distribution Width 12.4 % (11.5-14.0); White Blood Count 6.2 x10^3/uL (4.0-10.5)
[2022-06-30 06:43] LABS: ALBUMIN 2.7 g/dL (3.5-5.0); ANION GAP 8.3 MEQ/L (5-15); BILIRUBIN,TOTAL 0.2 mg/dL (0.2-1.3); Calcium 8.1 mg/dL (8.4-10.2); Creatinine 1 2.06 mg/dL (0.66-1.25); Potassium 4.8 mmol/L (3.5-5.1); Total Protein 5.8 g/dL (6.3-8.2)
[2022-06-30 08:44] LABS: ABO TYPING O; Antibody Screen NEGATIVE (NEGATIVE); RH TYPING POSITIVE
[2022-06-30 08:46] LABS: CROSS MATCH (PRBC) COMPATIBLE (COMPATIBLE)
[2022-06-30] MEDS: Coreg PO SCH ×2 (08:47→21:22)
[2022-06-30] MEDS: ENOXAPARIN SODIUM SQ SCH (08:47)
[2022-06-30] MEDS: Maxipime 2 GM** 2 G in Dextrose 5%/Water IV Soln. 100ML PLUS BAG 100 ML IV SCH ×2 (09:18→21:23)
[2022-06-30] MEDS: HUMALOG SQ PRN ×3 (11:47→21:22)
[2022-06-30 12:05] LABS: Iron 37 ug/dL (49-181); Iron Saturation 14 % (20-39); TIBC 259 ug/dL (261-497)
[2022-06-30 13:02] LABS: Folate (Folic Acid) 5.37 ng/mL (2.76 - >20)
[2022-06-30] MEDS ORDERED: Sodium Chloride 0.9% 500 ML 500 ML IV SCH (13:30)
[2022-06-30 17:21] LABS: Hematocrit 24.8 % (42-50)
[2022-06-30] MEDS: Lantus Insulin SQ SCH (21:22)
[2022-06-30] MEDS: PROTONIX 40 MG IV IV SCH (21:22)
[2022-07-01] MEDS: Sodium Chloride 0.9% W/ 20 mEq KCl/LITER 1,000 ML IV SCH ×2 (02:00→11:45)
[2022-07-01 06:32] LABS: Hematocrit 24.8 % (42-50); Hemoglobin 7.9 g/dL (12.5-18.0); Mean Cell Volume 86.1 fL (78-100); Mean Corpuscular Hemoglobin 27.4 pg (26-32); Mean Corpuscular Hgb Concent. 31.9 g/dL (32-36); Mean Platelet Volume 8.1 fL (7.5-11.0); Platelet Count 353 x10^3/uL (150-450); Red Blood Count 2.88 x10^6/uL (4.1-5.6); Red Cell Distribution Width 13.1 % (11.5-14.0); White Blood Count 5.9 x10^3/uL (4.0-10.5)
[2022-07-01 07:05] LABS: ALBUMIN 2.6 g/dL (3.5-5.0); ANION GAP 7.1 MEQ/L (5-15); BILIRUBIN,TOTAL 0.2 mg/dL (0.2-1.3); Calcium 8.3 mg/dL (8.4-10.2); Creatinine 1 2.22 mg/dL (0.66-1.25); EST GLOMERULAR FILTRATION RATE 35.8 ML/MIN; Total Protein 5.9 g/dL (6.3-8.2)
[2022-07-01 07:31] VITALS: O2SAT 98
[2022-07-01] MEDS: ENOXAPARIN SODIUM SQ SCH (08:55)
[2022-07-01] MEDS: Maxipime 2 GM** 2 G in Dextrose 5%/Water IV Soln. 100ML PLUS BAG 100 ML IV SCH (08:55)
[2022-07-01] MEDS: Coreg PO SCH (08:55)
[2022-07-01] MEDS: HUMALOG SQ PRN (11:50)
[2022-07-01 11:58] VITALS: BP 146/81; PULSE 79
== END 2022-07-01 13:47 | disposition home or self-care (01) | DRG 637 ==
LOC: ED 00:17 → MED SURG 04:00 → ICU 04:23 → MED SURG 06-25 17:21
PROVIDERS: ADMIT Family Medicine; ATTEND Family Medicine
DX: E10.10 Type 1 diabetes mellitus with ketoacidosis without coma (principal); K85.90 Acute pancreatitis without necrosis or infection, unspecified; N17.9 Acute kidney failure, unspecified; E87.1 Hypo-osmolality and hyponatremia; N18.5 Chronic kidney disease, stage 5; R41.82 Altered mental status, unspecified; D72.829 Elevated white blood cell count, unspecified; E10.21 Type 1 diabetes mellitus with diabetic nephropathy; I15.0 Renovascular hypertension; I10 Essential (primary) hypertension; F19.10 Other psychoactive substance abuse, uncomplicated; R77.8 Other specified abnormalities of plasma proteins; R11.0 Nausea; D64.9 Anemia, unspecified; I16.0 Hypertensive urgency; Z79.899 Other long term (current) drug therapy; Z20.828 Contact with and (suspected) exposure to other viral communicable diseases; Z91.14 Patient's other noncompliance with medication regimen; Z72.0 Tobacco use; Z29.9 Encounter for prophylactic measures, unspecified; R10.11 Right upper quadrant pain
CPT/HCPCS: 0241U; 36000; 36415; 36430; 36600; 74150; 74176; 76705; 80048; 80053; 81015; 82150; 82375; 82607; 82746; 82803; 82947; 83540; 83550; 83605; 83690; 83735; 84484; 85014; 85018; 85025; 85027; 85045; 85046; 86850; 86900; 86901; 86922; 87040; 87086; 93005; 94762; 96360; 96365; 96367; 96372; 96374; 96375; 99285; 99291; J0360; J0692; J1650; J1815; J1817; J2270; J2405; J3480; P9016; A9270-GY

== ENCOUNTER 2022-07-15 15:50 | Observation (INO) | payer OTHER ==
[2022-07-15] MEDS ORDERED: Zofran 4 MG/2 ML VIAL IV ONE ×2 (15:52→18:46)
[2022-07-15] MEDS ORDERED: Sodium Chloride 0.9% 1000 ML 1,000 ML IV STA ×2 (15:52→17:21)
--- NOTE | 2022-07-15 15:52 | ERPHSYRPT ---
- History of Present Illness Time Seen by Provider: 07/15/22 15:52 Source: patient, EMS Exam Limitations: clinical condition Physician History: This is a 36-year-old white male patient who has been vomiting intermittently for approximately 2 days. He now cannot hold any fluids down. He does have a history of recurrent DKA. He states that he is not taking his medication as prescribed. He presents nauseated, dry heaving and pain in his ribs and upper abdomen from vomiting multiple times. Patient denies chest pain. He has no shortness of breath. He has had no fevers. Patient is mildly lethargic Severity: moderate Associated Symptoms: nausea, vomiting, abdominal pain (Bilateral upper abdominal pain), other, No shortness of breath, No chest pain Allergies/Adverse Reactions: No Known Drug Allergies Allergy (Verified 07/15/22 15:53) Home Medications: Carvedilol [Coreg ] 6.25 mg PO BID 06/04/22 [History] Hx Tetanus, Diphtheria Vaccination/Date Given: Yes Hx Influenza Vaccination/Date Given: No Hx Pneumococcal Vaccination/Date Given: Yes (10/01/2016) Travel Risk - International Travel Have you traveled outside of the country in past 3 weeks: No - Coronavirus Screening Are you exhibiting any of the following symptoms?: Yes Symptoms: Vomiting/Diarrhea, Headaches/Body Aches/Fatigue Close contact with a COVID-19 positive Pt in past 14-21 Days: No - Vaccine Status Have you recieved a Covid-19 vaccination: No - Review of Systems Constitutional: Weakness Eyes: No Symptoms Ears, Nose, & Throat: No Symptoms Respiratory: No Symptoms Cardiac: No Symptoms Abdominal/Gastrointestinal: Abdominal Pain, Nausea (Abdominal pain), Vomiting Genitourinary Symptoms: No Symptoms Musculoskeletal: No Symptoms Skin: No Symptoms Neurological: No Symptoms Psychological: No Symptoms Endocrine: No Symptoms Hematologic/Lymphatic: No Symptoms Immunological/Allergic: No Symptoms All Other Systems: Reviewed and Negative - Past Medical History Pertinent Past Medical History: Yes Neurological History: No Pertinent History ENT History: No Pertinent History Cardiac History: Hypertension Respiratory History: No Pertinent History Endocrine Medical History: Diabetes Type I Musculoskeletal History: No Pertinent History GI Medical History: No Pertinent History History: No Pertinent History Psycho-Social History: Anxiety, Depression Male Reproductive Disorders: No Pertinent History Other Medical History: DKA - Past Surgical History Past Surgical History: No Neuro Surgical History: No Pertinent History Cardiac: No Pertinent History Respiratory: No Pertinent History Gastrointestinal: No Pertinent History Genitourinary: No Pertinent History Musculoskeletal: No Pertinent History Male Surgical History: No Pertinent History Other Surgical History: . - Social History Smoking Status: Never smoker Exposure to second hand smoke: No Drug Use: none Patient Lives Alone: No Significant Family History: no pertinent family hx - Nursing Vital Signs Nursing Vital Signs: Initial Vital Signs Temperature 97.3 F 07/15/22 15:59 Pulse Rate 103 H 07/15/22 15:59 Respiratory Rate 18 07/15/22 15:59 Blood Pressure 139/98 07/15/22 15:59 O2 Sat by Pulse Oximetry 96 07/15/22 15:59 Pain Scale Pain Intensity 0 - Physical Exam General Appearance: moderate distress, alert, anxiety Eye Exam: PERRL/EOMI, eyes nml inspection, other Ears, Nose, Throat Exam: normal ENT inspection (Fruity breath), dry mucous membranes Neck Exam: normal inspection, non-tender, supple, full range of motion Respiratory Exam: normal breath sounds, lungs clear, airway intact, No chest tenderness, No respiratory distress Cardiovascular Exam: regular rate/rhythm, normal heart sounds, normal peripheral pulses Gastrointestinal/Abdomen Exam: soft, normal bowel sounds, tenderness (Upper abdominal pain with palpation), No rebound Rectal Exam: not done Back Exam: normal inspection, normal range of motion, No CVA tenderness, No vertebral tenderness Extremity Exam: normal inspection, normal range of motion, pelvis stable Neurologic Exam: alert, oriented x 3, cooperative, stand up comedian II-XII nml as tested, normal mood/affect, nml cerebellar function, nml station & gait Skin Exam: normal color, warm, dry SpO2 Interpretation: normal O2 Delivery: Room Air - Course Nursing assessment & vital signs reviewed: Yes Ordered Tests: Active Orders 24 hr Category Date Time Status Nut Culler STAT Care 07/15/22 15:52 Active IV Insertion STAT Care 07/15/22 15:52 Active POCT Glucose Check STAT Care 07/15/22 15:52 Active Pulse Oximetry (ED) STAT Care 07/15/22 15:52 Active CBC W DIFF Stat Lab 07/15/22 16:05 Completed CMP Stat Lab 07/15/22 16:05 Completed ETHYL ALCOHOL Stat Lab 07/15/22 16:05 Completed Lactic Acid Stat Lab 07/15/22 18:19 Completed Lactic Acid Urgent Lab 07/15/22 16:14 Completed MAGNESIUM Stat Lab 07/15/22 16:05 Completed POCT GLUCOSE Stat Lab 07/15/22 18:15 Completed POCT GLUCOSE Stat Lab 07/15/22 18:53 Completed UA W/RFX CULTURE Stat Lab 07/15/22 Ordered Transfer Order Routine Transfer 07/15/22 Ordered Medication Summary Discontinued Medications Generic Name Dose Route Start Last Admin Trade Name Kelsie PRN Reason Stop Dose Admin Sodium Chloride 1,000 mls @ 999 mls/hr 07/15/22 15:52 07/15/22 18:27 Sodium Chloride 0.9% 1000 Ml IV 07/15/22 16:52 Infused .Q1H1M STA Infusion Sodium Chloride Confirm 07/15/22 17:19 Sodium Chloride 0.9% 1000 Ml Administered 07/15/22 17:20 Dose 1,000 mls @ ud .ROUTE .STK-MED ONE Sodium Chloride 1,000 mls @ 999 mls/hr 07/15/22 17:21 07/15/22 18:25 Sodium Chloride 0.9% 1000 Ml IV 07/15/22 18:21 999 mls/hr .Q1H1M STA Administration Sodium Chloride Confirm 07/15/22 18:25 Sodium Chloride 0.9% 1000 Ml Administered 07/15/22 18:26 Dose 1,000 mls @ ud .ROUTE .STK-MED ONE Ondansetron HCl 4 mg 07/15/22 15:52 07/15/22 17:23 Ondansetron Hcl 4 Mg/2 Ml Vial IV 07/15/22 15:53 4 mg STAT ONE Administration Ondansetron HCl Confirm 07/15/22 17:19 Ondansetron Hcl 4 Mg/2 Ml Vial Administered 07/15/22 17:20 Dose 4 mg .ROUTE .STK-MED ONE Ondansetron HCl 4 mg 07/15/22 18:46 07/15/22 18:49 Ondansetron Hcl 4 Mg/2 Ml Vial IV 07/15/22 18:47 4 mg STAT ONE Administration Ondansetron HCl Confirm 07/15/22 18:48 Ondansetron Hcl 4 Mg/2 Ml Vial Administered 07/15/22 18:49 Dose 4 mg .ROUTE .STK-MED ONE Lab/Rad Data: Laboratory Result Diagrams 07/15/22 16:05 07/15/22 16:05 Laboratory Results 07/15/22 07/15/22 07/15/22 Range/Units 18:53 18:19 18:15 WBC (4.0-10.5) x10^3/uL RBC (4.1-5.6) x10^6/uL Hgb (12.5-18.0) g/dL Hct (42-50) % MCV (78-100) fL MCH (26-32) pg MCHC (32-36) g/dL RDW (11.5-14.0) % Plt Count (150-450) x10^3/uL MPV (7.5-11.0) fL Gran % (36.0-66.0) % Immature Gran % (Auto) (0.00-0.4) % Nucleat RBC Rel Count (0.00-0.1) % Eos # (Auto) (0-0.5) x10^3/uL Immature Gran # (Auto) (0.00-0.03) x10^3u/L Absolute Lymphs (auto) (1.0-4.6) x10^3/uL Absolute Monos (auto) (0.0-1.3) x10^3/uL Absolute Nucleated RBC (0.00-0.01) x10^3u/L Lymphocytes % (24.0-44.0) % Monocytes % (0.0-12.0) % Eosinophils % (0.00-5.0) % Basophils % (0.0-0.4) % Absolute Granulocytes (1.4-6.9) x10^3/uL Basophils # (0-0.4) x10^3/uL Sodium (137-145) mmol/L Potassium (3.5-5.1) mmol/L Chloride (98-107) mmol/L Carbon Dioxide (22-30) mmol/L Anion Gap (5-15) MEQ/L BUN (9-20) mg/dL Creatinine (0.66-1.25) mg/dL Estimated GFR ML/MIN Glucose (74-106) mg/dL POC Glucometer 109 H 88 (74 to 106) mg/dL Lactic Acid 1.5 (0.4-2.0) Calcium (8.4-10.2) mg/dL Magnesium (1.6-2.3) mg/dL Total Bilirubin (0.2-1.3) mg/dL AST (17-59) U/L ALT (0-50) U/L Alkaline Phosphatase (38-126) U/L Serum Total Protein (6.3-8.2) g/dL Albumin (3.5-5.0) g/dL Ethyl Alcohol (0-10) mg/dL Influenza Type A Ag (NEGATIVE) Influenza Type B Ag (NEGATIVE) RSV (PCR) (Negative) SARS-CoV-2 (PCR) (NEGATIVE) 07/15/22 07/15/22 07/15/22 Range/Units 16:14 16:05 16:05 WBC (4.0-10.5) x10^3/uL RBC (4.1-5.6) x10^6/uL Hgb (12.5-18.0) g/dL Hct (42-50) % MCV (78-100) fL MCH (26-32) pg MCHC (32-36) g/dL RDW (11.5-14.0) % Plt Count (150-450) x10^3/uL MPV (7.5-11.0) fL Gran % (36.0-66.0) % Immature Gran % (Auto) (0.00-0.4) % Nucleat RBC Rel Count (0.00-0.1) % Eos # (Auto) (0-0.5) x10^3/uL Immature Gran # (Auto) (0.00-0.03) x10^3u/L Absolute Lymphs (auto) (1.0-4.6) x10^3/uL Absolute Monos (auto) (0.0-1.3) x10^3/uL Absolute Nucleated RBC (0.00-0.01) x10^3u/L Lymphocytes % (24.0-44.0) % Monocytes % (0.0-12.0) % Eosinophils % (0.00-5.0) % Basophils % (0.0-0.4) % Absolute Granulocytes (1.4-6.9) x10^3/uL Basophils # (0-0.4) x10^3/uL Sodium 137 (137-145) mmol/L Potassium 4.0 (3.5-5.1) mmol/L Chloride 88 L (98-107) mmol/L Carbon Dioxide 36 H (22-30) mmol/L Anion Gap 16.7 H (5-15) MEQ/L BUN 71 H (9-20) mg/dL Creatinine 3.83 H (0.66-1.25) mg/dL Estimated GFR 19.1 ML/MIN Glucose 113 H (74-106) mg/dL POC Glucometer (74 to 106) mg/dL Lactic Acid 3.5 H (0.4-2.0) Calcium 10.5 H (8.4-10.2) mg/dL Magnesium 2.4 H (1.6-2.3) mg/dL Total Bilirubin 0.80 (0.2-1.3) mg/dL AST 40 (17-59) U/L ALT 26 (0-50) U/L Alkaline Phosphatase 233 H (38-126) U/L Serum Total Protein 9.5 H (6.3-8.2) g/dL Albumin 4.6 (3.5-5.0) g/dL Ethyl Alcohol < 10 (0-10) mg/dL Influenza Type A Ag NEGATIVE (NEGATIVE) Influenza Type B Ag NEGATIVE (NEGATIVE) RSV (PCR) NEGATIVE (Negative) SARS-CoV-2 (PCR) NEGATIVE (NEGATIVE) 07/15/22 Range/Units 16:05 WBC 18.2 H (4.0-10.5) x10^3/uL RBC 4.31 (4.1-5.6) x10^6/uL Hgb 12.1 L (12.5-18.0) g/dL Hct 36.5 L (42-50) % MCV 84.7 (78-100) fL MCH 28.1 (26-32) pg MCHC 33.2 (32-36) g/dL RDW 13.4 (11.5-14.0) % Plt Count 589 H (150-450) x10^3/uL MPV 8.1 (7.5-11.0) fL Gran % 88.0 H (36.0-66.0) % Immature Gran % (Auto) 0.4 (0.00-0.4) % Nucleat RBC Rel Count 0.0 (0.00-0.1) % Eos # (Auto) 0.03 (0-0.5) x10^3/uL Immature Gran # (Auto) 0.07 H (0.00-0.03) x10^3u/L Absolute Lymphs (auto) 0.62 L (1.0-4.6) x10^3/uL Absolute Monos (auto) 1.40 H (0.0-1.3) x10^3/uL Absolute Nucleated RBC 0.00 (0.00-0.01) x10^3u/L Lymphocytes % 3.4 L (24.0-44.0) % Monocytes % 7.7 (0.0-12.0) % Eosinophils % 0.2 (0.00-5.0) % Basophils % 0.3 (0.0-0.4) % Absolute Granulocytes 16.00 H (1.4-6.9) x10^3/uL Basophils # 0.05 (0-0.4) x10^3/uL Sodium (137-145) mmol/L Potassium (3.5-5.1) mmol/L Chloride (98-107) mmol/L Carbon Dioxide (22-30) mmol/L Anion Gap (5-15) MEQ/L BUN (9-20) mg/dL Creatinine (0.66-1.25) mg/dL Estimated GFR ML/MIN Glucose (74-106) mg/dL POC Glucometer (74 to 106) mg/dL Lactic Acid (0.4-2.0) Calcium (8.4-10.2) mg/dL Magnesium (1.6-2.3) mg/dL Total Bilirubin (0.2-1.3) mg/dL AST (17-59) U/L ALT (0-50) U/L Alkaline Phosphatase (38-126) U/L Serum Total Protein (6.3-8.2) g/dL Albumin (3.5-5.0) g/dL Ethyl Alcohol (0-10) mg/dL Influenza Type A Ag (NEGATIVE) Influenza Type B Ag (NEGATIVE) RSV (PCR) (Negative) SARS-CoV-2 (PCR) (NEGATIVE) - Progress Progress: improved Progress Note: 07/15/22 20:26 Medical decision making: This patient is a noncompliant diabetic who has been vomiting for a couple of days. Patient was discharged from this hospital 3 weeks ago with HH S, dehydration and leukocytosis. Although most of his labs have improved since that time, he still has acute renal failure where the creatinine has improved from over 6.0-3.83. Patient presented with an elevated lactic acid level but with our management today it is now in the normal range. He does have a leukocytosis of 18,000. The patient is mildly lethargic but this has improved with time. He still having some nausea. I spoke with Dr. Perry and we will place him in observation on a telemetry bed. His blood sugar has surprisingly been in the 100 range and we will monitor his blood sugar while he is in the hospital and continue with IV hydration and antiemetics. We will keep him n.p.o. until he is more awake alert and he has no more nausea or vomiting complaints. We will also monitor his blood pressure just prior to him going into the hospital his systolic blood pressure improved from 203 down to 157. Discussed with : Marguerite Counseled pt/family regarding: lab results, diagnosis - Departure Departure Disposition: Observation Clinical Impression: Hyperglycemia, Hypertension, Noncompliance, Leukocytosis, Acute renal failure, Lactic acidemia Condition: Fair Critical Care Time: Yes Critical Care Time(excluding separately billable procedures): Critical 30-74 mins (40 minutes) Referrals: VALENTINA STARKS [Primary Care Provider] - Follow up/PCP as directed
[2022-07-15 16:14] LABS: Basophil (Absolute #) 0.05 x10^3/uL (0-0.4); Eosinophil % 0.2 % (0.00-5.0); Eosinophil (Absolute #) 0.03 x10^3/uL (0-0.5); Hematocrit 36.5 % (42-50); Hemoglobin 12.1 g/dL (12.5-18.0); Lymphocyte (Absolute #) 0.62 x10^3/uL (1.0-4.6); Lymphocytes % 3.4 % (24.0-44.0); Mean Cell Volume 84.7 fL (78-100); Mean Corpuscular Hemoglobin 28.1 pg (26-32); Mean Corpuscular Hgb Concent. 33.2 g/dL (32-36); Mean Platelet Volume 8.1 fL (7.5-11.0); Monocytes % 7.7 % (0.0-12.0); Platelet Count 589 x10^3/uL (150-450); Red Blood Count 4.31 x10^6/uL (4.1-5.6); Red Cell Distribution Width 13.4 % (11.5-14.0); White Blood Count 18.2 x10^3/uL (4.0-10.5)
[2022-07-15 16:29] LABS: ALBUMIN 4.6 g/dL (3.5-5.0); ALKALINE PHOSPHATASE 233 U/L (38-126); ANION GAP 16.7 MEQ/L (5-15); BLOOD UREA NITROGEN 71 mg/dL (9-20); CHLORIDE 88 mmol/L (98-107); Calcium 10.5 mg/dL (8.4-10.2); Carbon Dioxide 36 mmol/L (22-30); Creatinine 1 3.83 mg/dL (0.66-1.25); EST GLOMERULAR FILTRATION RATE 19.1 ML/MIN; ETHYL ALCOHOL < 10 mg/dL (0-10); Glucose 113 mg/dL (74-106); MAGNESIUM 2.4 mg/dL (1.6-2.3); SGOT/AST 40 U/L (17-59); SGPT/ALT 26 U/L (0-50); SODIUM 137 mmol/L (137-145); Total Protein 9.5 g/dL (6.3-8.2)
[2022-07-15 16:51] LABS: INFLUENZA A NEGATIVE (NEGATIVE); INFLUENZA B NEGATIVE (NEGATIVE); RESPIRATORY SYNCTIAL VIRUS NEGATIVE (Negative); SARS-CoV-2 Xpert Express NEGATIVE (NEGATIVE)
[2022-07-15] MEDS ORDERED: Sodium Chloride 0.9% 1000 ML 1,000 ML ONE ×2 (17:19→18:25)
[2022-07-15] MEDS ORDERED: Zofran 4 MG/2 ML VIAL ONE ×2 (17:19→18:48)
[2022-07-15] MEDS ORDERED: Zofran 4 MG/2 ML VIAL IV PRN (20:45)
[2022-07-15] MEDS ORDERED: APRESOLINE 20 MG/ML INJ IV PRN (20:45)
[2022-07-15] MEDS ORDERED: TYLENOL 325 MG PO PRN (20:45)
[2022-07-15 22:21] LABS: Appearance CLEAR (CLEAR); Bilirubin SMALL (NEGATIVE); Dipstick done @ ? MAIN LAB; Glucose 250 mg/dL (NEGATIVE); Ketones SMALL-15 (NEGATIVE); Nitrite NEGATIVE (NEGATIVE); Ph 5.5 (5-6); Protein,Urine Dip >=300 (Negative); RBC SMALL Ery/ul (0-5); Specific Gravity >=1.030 (1.005-1.025); Urobilinogen 0.2 mg/dL (0-1)
[2022-07-15 22:23] LABS: WBC 0-2 /HPF (0-5)
[2022-07-15 22:24] LABS: Bacteria NONE SEEN /HPF (NEGATIVE)
[2022-07-15 22:25] LABS: Urine Cultured Indicated? YES
[2022-07-15] MEDS: PROMETHEGAN RC PRN (22:31)
[2022-07-15] MEDS: Sodium Chloride 0.9% 1000 ML 1,000 ML IV SCH (22:32)
[2022-07-15] MEDS: HUMULIN R SQ PRN (23:57)
[2022-07-16] MEDS: PROMETHEGAN RC PRN (03:01)
[2022-07-16 05:03] LABS: Absolute Neutrophil Ct (ANC) 13.49 x10^3/uL (1.4-6.9); Basophil (Absolute #) 0.04 x10^3/uL (0-0.4); Eosinophil % 0.1 % (0.00-5.0); Eosinophil (Absolute #) 0.01 x10^3/uL (0-0.5); Hematocrit 29.5 % (42-50); Lymphocytes % 4.5 % (24.0-44.0); Mean Cell Volume 85.3 fL (78-100); Mean Corpuscular Hemoglobin 27.5 pg (26-32); Mean Corpuscular Hgb Concent. 32.2 g/dL (32-36); Mean Platelet Volume 8.3 fL (7.5-11.0); Monocyte (Absolute #) 1.21 x10^3/uL (0.0-1.3); Monocytes % 7.8 % (0.0-12.0); Neutrophil % 86.8 % (36.0-66.0); Platelet Count 487 x10^3/uL (150-450); Red Blood Count 3.46 x10^6/uL (4.1-5.6); Red Cell Distribution Width 13.7 % (11.5-14.0); White Blood Count 15.5 x10^3/uL (4.0-10.5)
[2022-07-16 05:14] LABS: Hemoglobin 9.5 g/dL (12.5-18.0)
[2022-07-16 05:39] LABS: ALBUMIN 3.7 g/dL (3.5-5.0); ANION GAP 10.1 MEQ/L (5-15); BILIRUBIN,TOTAL 0.6 mg/dL (0.2-1.3); Calcium 8.6 mg/dL (8.4-10.2); Creatinine 1 3.59 mg/dL (0.66-1.25); EST GLOMERULAR FILTRATION RATE 20.6 ML/MIN; Potassium 3.9 mmol/L (3.5-5.1); Total Protein 7.3 g/dL (6.3-8.2)
[2022-07-16] MEDS: Sodium Chloride 0.9% 1000 ML 1,000 ML IV SCH ×4 (06:01→21:46)
--- NOTE | 2022-07-16 08:54 | PCM.HP ---
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 He started vomiting the day after [employer]; could not hold down liquids. In E R, his WBC were initially 18,000. He had some abd pain related to the vomiting. Hgb was initially 12.1 but after repleting IV fluids was 9.5. His BS have been 111-386. He says he's not sure why the vomiting happened - he ate normally at [employer] (did give himself extra insulin). He was apparently quite sleepy in ER. This morning he is alert and awake, denies nausea and would like to have clear liquids. Pt did c/o some chest pressure with vomiting, which has resolved. Had abd pain with vomiting but that has resolved as well. - Review of Systems Cardiac: Chest Pain (tightness with vomiting; has resolved) Abdominal/Gastrointestinal: Abdominal Pain, Vomiting, Appetite Changes All Other Systems: Reviewed and Negative Medications & Allergies Home Medications: Home Medication List Carvedilol [Coreg ] 6.25 mg PO BID 06/04/22 [History Confirmed 07/15/22] Ondansetron ODT 4 MG [Zofran Odt 4 mg] 4 mg PO Q6H PRN PRN #10 tablet 06/14/22 [Rx Confirmed 07/15/22] Clonidine HCl Tts-2 Patch [Catapres TTS-2 PATCH] 0.2 mg TOP Q7D #3 patch 07/01/22 [Rx Confirmed 07/15/22] Ferrous Sulfate [Iron] 325 mg PO BID 30 Days #60 tablet 07/01/22 [Rx Confirmed 07/15/22] Insulin Glargine-Yfgn 15 unit SQ HS #3 07/01/22 [Rx] Insulin Lispro [Admelog Solostar] 10 - 15 unit SQ TIDWMEALS #3 07/01/22 [Rx Confirmed 07/15/22] Allergies/Adverse Reactions: Allergies Allergy/AdvReac Type Severity Reaction Status Date / Time No Known Drug Allergies Allergy Verified 07/15/22 15:53 - Past Medical History Past Medical History: Yes Neurological History: No Pertinent History ENT History: No Pertinent History Cardiac History: Hypertension Respiratory History: No Pertinent History Endocrine Medical History: Diabetes Type I Musculoskelatal History: No Pertinent History GI Medical History: No Pertinent History History: No Pertinent History Pyscho-Social History: Anxiety, Depression Male Reproductive Disorders: No Pertinent History Comment: DKA - Past Surgical History Past Surgical History: No Neuro Surgical History: No Pertinent History Cardiac History: No Pertinent History Respiratory Surgery: No Pertinent History GI Surgical History: No Pertinent History Genitourinary Surgical Hx: No Pertinent History Musculskeletal Surgical Hx: No Pertinent History Male Surgical History: No Pertinent History Other Surgical History: . - Social History Smoking Status: Never smoker Exposure to second hand smoke: No Alcohol: None Drug Use: none Significant Family History: no pertinent family hx - Physical Exam Vital Signs: Vital Signs - 24 hr Temp Pulse Resp BP BP Pulse Ox 07/16/22 07:09 99.5 F 93 H 16 130/75 94 L 07/16/22 03:51 99.3 F 95 H 18 125/68 91 L 07/16/22 00:00 98.6 F 105 H 17 166/93 95 07/15/22 23:19 180/104 07/15/22 21:24 96.6 F 118 H 20 214/122 07/15/22 20:05 93 H 24 133/71 96 07/15/22 19:42 116 H 24 100 07/15/22 18:03 117 H 20 139/98 100 07/15/22 15:59 97.3 F 103 H 18 139/98 97 General Appearance: no apparent distress, alert Neurologic Exam: oriented x 3, cooperative Eye Exam: eyes nml inspection Ears, Nose, Throat Exam: moist mucous membranes Neck Exam: non-tender Respiratory Exam: normal breath sounds, lungs clear, No crackles/rales, No rhonchi, No wheezing Cardiovascular Exam: regular rate/rhythm, normal heart sounds, No murmur Gastrointestinal/Abdomen Exam: soft, normal bowel sounds, tenderness (mild diffuse ttp), No distention, No mass, No guarding, No rebound Back Exam: normal inspection, No CVA tenderness, No rash Extremity Exam: normal inspection, No pedal edema, No swelling Skin Exam: normal color, warm, dry, No rash Results - Labs Lab/Micro Results: Lab Results-Last 24 Hours 07/15/22 07/15/22 07/15/22 Range/Units 16:05 16:05 16:05 WBC 18.2 H (4.0-10.5) x10^3/uL RBC 4.31 (4.1-5.6) x10^6/uL Hgb 12.1 L (12.5-18.0) g/dL Hct 36.5 L (42-50) % MCV 84.7 (78-100) fL MCH 28.1 (26-32) pg MCHC 33.2 (32-36) g/dL RDW 13.4 (11.5-14.0) % Plt Count 589 H (150-450) x10^3/uL MPV 8.1 (7.5-11.0) fL Gran % 88.0 H (36.0-66.0) % Immature Gran % (Auto) 0.4 (0.00-0.4) % Nucleat RBC Rel Count 0.0 (0.00-0.1) % Eos # (Auto) 0.03 (0-0.5) x10^3/uL Immature Gran # (Auto) 0.07 H (0.00-0.03) x10^3u/L Absolute Lymphs (auto) 0.62 L (1.0-4.6) x10^3/uL Absolute Monos (auto) 1.40 H (0.0-1.3) x10^3/uL Absolute Nucleated RBC 0.00 (0.00-0.01) x10^3u/L Lymphocytes % 3.4 L (24.0-44.0) % Monocytes % 7.7 (0.0-12.0) % Eosinophils % 0.2 (0.00-5.0) % Basophils % 0.3 (0.0-0.4) % Absolute Granulocytes 16.00 H (1.4-6.9) x10^3/uL Basophils # 0.05 (0-0.4) x10^3/uL Sodium 137 (137-145) mmol/L Potassium 4.0 (3.5-5.1) mmol/L Chloride 88 L (98-107) mmol/L Carbon Dioxide 36 H (22-30) mmol/L Anion Gap 16.7 H (5-15) MEQ/L BUN 71 H (9-20) mg/dL Creatinine 3.83 H (0.66-1.25) mg/dL Estimated GFR 19.1 ML/MIN Glucose 113 H (74-106) mg/dL POC Glucometer (74 to 106) mg/dL Lactic Acid (0.4-2.0) Calcium 10.5 H (8.4-10.2) mg/dL Magnesium 2.4 H (1.6-2.3) mg/dL Total Bilirubin 0.80 (0.2-1.3) mg/dL AST 40 (17-59) U/L ALT 26 (0-50) U/L Alkaline Phosphatase 233 H (38-126) U/L Serum Total Protein 9.5 H (6.3-8.2) g/dL Albumin 4.6 (3.5-5.0) g/dL Urinalys Dipstick Clnc Urine Color (YELLOW) Urine Appearance (CLEAR) Urine pH (5-6) Ur Specific [place] (1.005-1.025) POC Urine Protein Conf (Negative) Urine Ketones (NEGATIVE) Urine Nitrite (NEGATIVE) Urine Bilirubin (NEGATIVE) Urine Urobilinogen (0-1) mg/dL Urine Leukocytes (NEGATIVE) Urine WBC (Auto) (0-5) /HPF Urine RBC (Auto) (0-2) /HPF U Hyaline Cast (Auto) (0-2) /LPF U Epithel Cells (Auto) (FEW) /HPF Urine Bacteria (Auto) (NEGATIVE) /HPF Urine RBC (0-5) Tomas/ul Ur Culture Indicated? Urine Glucose (NEGATIVE) mg/dL Ethyl Alcohol < 10 (0-10) mg/dL Influenza Type A Ag NEGATIVE (NEGATIVE) Influenza Type B Ag NEGATIVE (NEGATIVE) RSV (PCR) NEGATIVE (Negative) SARS-CoV-2 (PCR) NEGATIVE (NEGATIVE) 07/15/22 07/15/22 07/15/22 Range/Units 16:14 18:15 18:19 WBC (4.0-10.5) x10^3/uL RBC (4.1-5.6) x10^6/uL Hgb (12.5-18.0) g/dL Hct (42-50) % MCV (78-100) fL MCH (26-32) pg MCHC (32-36) g/dL RDW (11.5-14.0) % Plt Count (150-450) x10^3/uL MPV (7.5-11.0) fL Gran % (36.0-66.0) % Immature Gran % (Auto) (0.00-0.4) % Nucleat RBC Rel Count (0.00-0.1) % Eos # (Auto) (0-0.5) x10^3/uL Immature Gran # (Auto) (0.00-0.03) x10^3u/L Absolute Lymphs (auto) (1.0-4.6) x10^3/uL Absolute Monos (auto) (0.0-1.3) x10^3/uL Absolute Nucleated RBC (0.00-0.01) x10^3u/L Lymphocytes % (24.0-44.0) % Monocytes % (0.0-12.0) % Eosinophils % (0.00-5.0) % Basophils % (0.0-0.4) % Absolute Granulocytes (1.4-6.9) x10^3/uL Basophils # (0-0.4) x10^3/uL Sodium (137-145) mmol/L Potassium (3.5-5.1) mmol/L Chloride (98-107) mmol/L Carbon Dioxide (22-30) mmol/L Anion Gap (5-15) MEQ/L BUN (9-20) mg/dL Creatinine (0.66-1.25) mg/dL Estimated GFR ML/MIN Glucose (74-106) mg/dL POC Glucometer 88 (74 to 106) mg/dL Lactic Acid 3.5 H 1.5 (0.4-2.0) Calcium (8.4-10.2) mg/dL Magnesium (1.6-2.3) mg/dL Total Bilirubin (0.2-1.3) mg/dL AST (17-59) U/L ALT (0-50) U/L Alkaline Phosphatase (38-126) U/L Serum Total Protein (6.3-8.2) g/dL Albumin (3.5-5.0) g/dL Urinalys Dipstick Clnc Urine Color (YELLOW) Urine Appearance (CLEAR) Urine pH (5-6) Ur Specific [place] (1.005-1.025) POC Urine Protein Conf (Negative) Urine Ketones (NEGATIVE) Urine Nitrite (NEGATIVE) Urine Bilirubin (NEGATIVE) Urine Urobilinogen (0-1) mg/dL Urine Leukocytes (NEGATIVE) Urine WBC (Auto) (0-5) /HPF Urine RBC (Auto) (0-2) /HPF U Hyaline Cast (Auto) (0-2) /LPF U Epithel Cells (Auto) (FEW) /HPF Urine Bacteria (Auto) (NEGATIVE) /HPF Urine RBC (0-5) Tomas/ul Ur Culture Indicated? Urine Glucose (NEGATIVE) mg/dL Ethyl Alcohol (0-10) mg/dL Influenza Type A Ag (NEGATIVE) Influenza Type B Ag (NEGATIVE) RSV (PCR) (Negative) SARS-CoV-2 (PCR) (NEGATIVE) 07/15/22 07/15/22 07/15/22 Range/Units 18:53 21:21 22:01 WBC (4.0-10.5) x10^3/uL RBC (4.1-5.6) x10^6/uL Hgb (12.5-18.0) g/dL Hct (42-50) % MCV (78-100) fL MCH (26-32) pg MCHC (32-36) g/dL RDW (11.5-14.0) % Plt Count (150-450) x10^3/uL MPV (7.5-11.0) fL Gran % (36.0-66.0) % Immature Gran % (Auto) (0.00-0.4) % Nucleat RBC Rel Count (0.00-0.1) % Eos # (Auto) (0-0.5) x10^3/uL Immature Gran # (Auto) (0.00-0.03) x10^3u/L Absolute Lymphs (auto) (1.0-4.6) x10^3/uL Absolute Monos (auto) (0.0-1.3) x10^3/uL Absolute Nucleated RBC (0.00-0.01) x10^3u/L Lymphocytes % (24.0-44.0) % Monocytes % (0.0-12.0) % Eosinophils % (0.00-5.0) % Basophils % (0.0-0.4) % Absolute Granulocytes (1.4-6.9) x10^3/uL Basophils # (0-0.4) x10^3/uL Sodium (137-145) mmol/L Potassium (3.5-5.1) mmol/L Chloride (98-107) mmol/L Carbon Dioxide (22-30) mmol/L Anion Gap (5-15) MEQ/L BUN (9-20) mg/dL Creatinine (0.66-1.25) mg/dL Estimated GFR ML/MIN Glucose (74-106) mg/dL POC Glucometer 109 H 220 H (74 to 106) mg/dL Lactic Acid (0.4-2.0) Calcium (8.4-10.2) mg/dL Magnesium (1.6-2.3) mg/dL Total Bilirubin (0.2-1.3) mg/dL AST (17-59) U/L ALT (0-50) U/L Alkaline Phosphatase (38-126) U/L Serum Total Protein (6.3-8.2) g/dL Albumin (3.5-5.0) g/dL Urinalys Dipstick Clnc MAIN LAB Urine Color YELLOW (YELLOW) Urine Appearance CLEAR (CLEAR) Urine pH 5.5 (5-6) Ur Specific [place] >=1.030 A (1.005-1.025) POC Urine Protein Conf >=300 A (Negative) Urine Ketones SMALL-15 A (NEGATIVE) Urine Nitrite NEGATIVE (NEGATIVE) Urine Bilirubin SMALL A (NEGATIVE) Urine Urobilinogen 0.2 (0-1) mg/dL Urine Leukocytes NEGATIVE (NEGATIVE) Urine WBC (Auto) 0-2 (0-5) /HPF Urine RBC (Auto) 3-5 A (0-2) /HPF U Hyaline Cast (Auto) 3-5 A (0-2) /LPF U Epithel Cells (Auto) NONE (FEW) /HPF Urine Bacteria (Auto) NONE SEEN (NEGATIVE) /HPF Urine RBC SMALL A (0-5) Tomas/ul Ur Culture Indicated? YES Urine Glucose 250 A (NEGATIVE) mg/dL Ethyl Alcohol (0-10) mg/dL Influenza Type A Ag (NEGATIVE) Influenza Type B Ag (NEGATIVE) RSV (PCR) (Negative) SARS-CoV-2 (PCR) (NEGATIVE) 07/15/22 07/16/22 07/16/22 Range/Units 23:44 03:00 04:40 WBC 15.5 H (4.0-10.5) x10^3/uL RBC 3.46 L (4.1-5.6) x10^6/uL Hgb 9.5 L D (12.5-18.0) g/dL Hct 29.5 L (42-50) % MCV 85.3 (78-100) fL MCH 27.5 (26-32) pg MCHC 32.2 (32-36) g/dL RDW 13.7 (11.5-14.0) % Plt Count 487 H (150-450) x10^3/uL MPV 8.3 (7.5-11.0) fL Gran % 86.8 H (36.0-66.0) % Immature Gran % (Auto) 0.5 H (0.00-0.4) % Nucleat RBC Rel Count 0.0 (0.00-0.1) % Eos # (Auto) 0.01 (0-0.5) x10^3/uL Immature Gran # (Auto) 0.07 H (0.00-0.03) x10^3u/L Absolute Lymphs (auto) 0.70 L (1.0-4.6) x10^3/uL Absolute Monos (auto) 1.21 (0.0-1.3) x10^3/uL Absolute Nucleated RBC 0.00 (0.00-0.01) x10^3u/L Lymphocytes % 4.5 L (24.0-44.0) % Monocytes % 7.8 (0.0-12.0) % Eosinophils % 0.1 (0.00-5.0) % Basophils % 0.3 (0.0-0.4) % Absolute Granulocytes 13.49 H (1.4-6.9) x10^3/uL Basophils # 0.04 (0-0.4) x10^3/uL Sodium (137-145) mmol/L Potassium (3.5-5.1) mmol/L Chloride (98-107) mmol/L Carbon Dioxide (22-30) mmol/L Anion Gap (5-15) MEQ/L BUN (9-20) mg/dL Creatinine (0.66-1.25) mg/dL Estimated GFR ML/MIN Glucose (74-106) mg/dL POC Glucometer 386 H 183 H (74 to 106) mg/dL Lactic Acid (0.4-2.0) Calcium (8.4-10.2) mg/dL Magnesium (1.6-2.3) mg/dL Total Bilirubin (0.2-1.3) mg/dL AST (17-59) U/L ALT (0-50) U/L Alkaline Phosphatase (38-126) U/L Serum Total Protein (6.3-8.2) g/dL Albumin (3.5-5.0) g/dL Urinalys Dipstick Clnc Urine Color (YELLOW) Urine Appearance (CLEAR) Urine pH (5-6) Ur Specific [place] (1.005-1.025) POC Urine Protein Conf (Negative) Urine Ketones (NEGATIVE) Urine Nitrite (NEGATIVE) Urine Bilirubin (NEGATIVE) Urine Urobilinogen (0-1) mg/dL Urine Leukocytes (NEGATIVE) Urine WBC (Auto) (0-5) /HPF Urine RBC (Auto) (0-2) /HPF U Hyaline Cast (Auto) (0-2) /LPF U Epithel Cells (Auto) (FEW) /HPF Urine Bacteria (Auto) (NEGATIVE) /HPF Urine RBC (0-5) Tomas/ul Ur Culture Indicated? Urine Glucose (NEGATIVE) mg/dL Ethyl Alcohol (0-10) mg/dL Influenza Type A Ag (NEGATIVE) Influenza Type B Ag (NEGATIVE) RSV (PCR) (Negative) SARS-CoV-2 (PCR) (NEGATIVE) 07/16/22 07/16/22 Range/Units 04:40 07:22 WBC (4.0-10.5) x10^3/uL RBC (4.1-5.6) x10^6/uL Hgb (12.5-18.0) g/dL Hct (42-50) % MCV (78-100) fL MCH (26-32) pg MCHC (32-36) g/dL RDW (11.5-14.0) % Plt Count (150-450) x10^3/uL MPV (7.5-11.0) fL Gran % (36.0-66.0) % Immature Gran % (Auto) (0.00-0.4) % Nucleat RBC Rel Count (0.00-0.1) % Eos # (Auto) (0-0.5) x10^3/uL Immature Gran # (Auto) (0.00-0.03) x10^3u/L Absolute Lymphs (auto) (1.0-4.6) x10^3/uL Absolute Monos (auto) (0.0-1.3) x10^3/uL Absolute Nucleated RBC (0.00-0.01) x10^3u/L Lymphocytes % (24.0-44.0) % Monocytes % (0.0-12.0) % Eosinophils % (0.00-5.0) % Basophils % (0.0-0.4) % Absolute Granulocytes (1.4-6.9) x10^3/uL Basophils # (0-0.4) x10^3/uL Sodium 134 L (137-145) mmol/L Potassium 3.9 (3.5-5.1) mmol/L Chloride 93 L (98-107) mmol/L Carbon Dioxide 35 H (22-30) mmol/L Anion Gap 10.1 (5-15) MEQ/L BUN 63 H (9-20) mg/dL Creatinine 3.59 H (0.66-1.25) mg/dL Estimated GFR 20.6 ML/MIN Glucose 143 H (74-106) mg/dL POC Glucometer 111 H (74 to 106) mg/dL Lactic Acid (0.4-2.0) Calcium 8.6 D (8.4-10.2) mg/dL Magnesium (1.6-2.3) mg/dL Total Bilirubin 0.60 (0.2-1.3) mg/dL AST 23 (17-59) U/L ALT 20 (0-50) U/L Alkaline Phosphatase 161 H (38-126) U/L Serum Total Protein 7.3 (6.3-8.2) g/dL Albumin 3.7 (3.5-5.0) g/dL Urinalys Dipstick Clnc Urine Color (YELLOW) Urine Appearance (CLEAR) Urine pH (5-6) Ur Specific [place] (1.005-1.025) POC Urine Protein Conf (Negative) Urine Ketones (NEGATIVE) Urine Nitrite (NEGATIVE) Urine Bilirubin (NEGATIVE) Urine Urobilinogen (0-1) mg/dL Urine Leukocytes (NEGATIVE) Urine WBC (Auto) (0-5) /HPF Urine RBC (Auto) (0-2) /HPF U Hyaline Cast (Auto) (0-2) /LPF U Epithel Cells (Auto) (FEW) /HPF Urine Bacteria (Auto) (NEGATIVE) /HPF Urine RBC (0-5) Tomas/ul Ur Culture Indicated? Urine Glucose (NEGATIVE) mg/dL Ethyl Alcohol (0-10) mg/dL Influenza Type A Ag (NEGATIVE) Influenza Type B Ag (NEGATIVE) RSV (PCR) (Negative) SARS-CoV-2 (PCR) (NEGATIVE) Accuchecks Date 07/16/22 Date 07/15/22 Time 07:35 Time 15:59 Assessment/Plan (1) Nausea & vomiting Current Visit: No Status: Acute Qualifiers: Vomiting type: unspecified Qualified Code(s): R11.2 - Nausea with vomiting, unspecified Assessment & Plan: Try CLD. Can discharge to home when he is tolerating po well. Would have to do outpatient labs to follow renal function. Code(s): R11.2 - NAUSEA WITH VOMITING, UNSPECIFIED (2) Acute on chronic renal failure Current Visit: No Status: Acute Qualifiers: Acute renal failure type: unspecified Chronic kidney disease stage: stage 5, not on chronic dialysis Qualified Code(s): N17.9 - Acute kidney failure, unspecified; N18.5 - Chronic kidney disease, stage 5 Assessment & Plan: eGFR mildly increased today from yesterday. He has seen nephrology outpatient, says, "He wanted me to do a bunch of stuff" and it's not clear if he is going to be comliant with that. Code(s): N17.9 - ACUTE KIDNEY FAILURE, UNSPECIFIED; N18.9 - CHRONIC KIDNEY DISEASE, UNSPECIFIED (3) Hyperglycemia Current Visit: Yes Status: Chronic Assessment & Plan: Actually pt may be at his baseline this admission. Code(s): R73.9 - HYPERGLYCEMIA, UNSPECIFIED (4) Leukocytosis Current Visit: No Status: Resolved Qualifiers: Leukocytosis type: unspecified Qualified Code(s): D72.829 - Elevated white blood cell count, unspecified Assessment & Plan: likely related to vomiting. Code(s): D72.829 - ELEVATED WHITE BLOOD CELL COUNT, UNSPECIFIED (5) Hypertension Current Visit: Yes Status: Chronic Onset Date: ~05/30/18 Qualifiers: Hypertension type: renovascular hypertension Qualified Code(s): I15.0 - Renovascular hypertension Assessment & Plan: He wasn't able to take his meds (aside from clonidine patch) while vomiting. restart here. Code(s): I10 - ESSENTIAL (PRIMARY) HYPERTENSION
[2022-07-16] MEDS ORDERED: ZOFRAN ODT 4 MG PO PRN (11:06)
[2022-07-16] MEDS: HUMULIN R SQ PRN ×2 (11:43→17:16)
[2022-07-16] MEDS: Coreg PO SCH ×2 (13:20→21:46)
[2022-07-16] MEDS ORDERED: Lantus Insulin SQ SCH (22:00)
[2022-07-16] MEDS ORDERED: INSULIN GLARGINE YFGN SQ SCH (22:00)
[2022-07-17 05:09] LABS: Absolute Neutrophil Ct (ANC) 5.09 x10^3/uL (1.4-6.9); Basophil (Absolute #) 0.07 x10^3/uL (0-0.4); Eosinophil % 8.8 % (0.00-5.0); Eosinophil (Absolute #) 0.64 x10^3/uL (0-0.5); Hematocrit 26.5 % (42-50); Hemoglobin 8.4 g/dL (12.5-18.0); Lymphocyte (Absolute #) 0.63 x10^3/uL (1.0-4.6); Lymphocytes % 8.6 % (24.0-44.0); Mean Cell Volume 88.6 fL (78-100); Mean Corpuscular Hemoglobin 28.1 pg (26-32); Mean Corpuscular Hgb Concent. 31.7 g/dL (32-36); Mean Platelet Volume 8.4 fL (7.5-11.0); Monocyte (Absolute #) 0.84 x10^3/uL (0.0-1.3); Monocytes % 11.5 % (0.0-12.0); Neutrophil % 69.8 % (36.0-66.0); Platelet Count 352 x10^3/uL (150-450); Red Blood Count 2.99 x10^6/uL (4.1-5.6); Red Cell Distribution Width 13.3 % (11.5-14.0); White Blood Count 7.3 x10^3/uL (4.0-10.5)
[2022-07-17] MEDS: Sodium Chloride 0.9% 1000 ML 1,000 ML IV SCH ×2 (05:38→13:29)
[2022-07-17] MEDS: HUMULIN R SQ PRN ×2 (07:21→16:04)
[2022-07-17 07:39] LABS: ANION GAP 6.8 MEQ/L (5-15); Calcium 7.9 mg/dL (8.4-10.2); Creatinine 1 2.56 mg/dL (0.66-1.25); EST GLOMERULAR FILTRATION RATE 30.4 ML/MIN; Potassium 4.3 mmol/L (3.5-5.1)
[2022-07-17] MEDS: Coreg PO SCH (10:51)
[2022-07-17 16:10] VITALS: BP 183/95; PULSE 76; O2SAT 96
--- NOTE | 2022-07-17 16:54 | PCM.DS ---
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 He started vomiting the day after [place]; could not hold down liquids. In ER, his WBC were initially 18,000. He had some abd pain related to the vomiting. Hgb was initially 12.1 but after repleting IV fluids was 9.5. Pt had been compliant with insulin at home per his report. He started feeling much better after admission. Blood sugars fairly well controlled for him. He ate bland diet today and tolerated it well so will be discharged to home. His WBC are normal today (7.3) and Hgb back to recent baseline (8.4). - Vitals & Intake/Output Vital Signs: Vital Signs Temperature 98.0 F 07/17/22 16:00 Pulse Rate 76 07/17/22 16:00 Respiratory Rate 18 07/17/22 16:00 Blood Pressure 183/95 07/17/22 16:00 O2 Sat by Pulse Oximetry 96 07/17/22 16:00 Intake & Output: Intake & Output 07/15/22 07/16/22 07/17/22 07/18/22 11:59 11:59 11:59 11:59 Intake Total 596 3170 6021 Output Total 2800 2300 500 Balance -2204 870 5521 Weight 69 kg 74.1 kg - Lab Result Diagrams: 07/17/22 04:25 07/17/22 04:25 Lab Results-Last 24 Hrs: Lab Results-Last 24 Hours 07/16/22 07/17/22 07/17/22 Range/Units 21:41 04:25 04:25 WBC 7.3 (4.0-10.5) x10^3/uL RBC 2.99 L (4.1-5.6) x10^6/uL Hgb 8.4 L (12.5-18.0) g/dL Hct 26.5 L (42-50) % MCV 88.6 (78-100) fL MCH 28.1 (26-32) pg MCHC 31.7 L (32-36) g/dL RDW 13.3 (11.5-14.0) % Plt Count 352 (150-450) x10^3/uL MPV 8.4 (7.5-11.0) fL Gran % 69.8 H (36.0-66.0) % Immature Gran % (Auto) 0.3 (0.00-0.4) % Nucleat RBC Rel Count 0.0 (0.00-0.1) % Eos # (Auto) 0.64 H (0-0.5) x10^3/uL Immature Gran # (Auto) 0.02 (0.00-0.03) x10^3u/L Absolute Lymphs (auto) 0.63 L (1.0-4.6) x10^3/uL Absolute Monos (auto) 0.84 (0.0-1.3) x10^3/uL Absolute Nucleated RBC 0.00 (0.00-0.01) x10^3u/L Lymphocytes % 8.6 L (24.0-44.0) % Monocytes % 11.5 (0.0-12.0) % Eosinophils % 8.8 H (0.00-5.0) % Basophils % 1.0 (0.0-0.4) % Absolute Granulocytes 5.09 (1.4-6.9) x10^3/uL Basophils # 0.07 (0-0.4) x10^3/uL Sodium 125 L D (137-145) mmol/L Potassium 4.3 (3.5-5.1) mmol/L Chloride 95 L (98-107) mmol/L Carbon Dioxide 28 (22-30) mmol/L Anion Gap 6.8 (5-15) MEQ/L BUN 37 H (9-20) mg/dL Creatinine 2.56 H (0.66-1.25) mg/dL Estimated GFR 30.4 ML/MIN Glucose 293 H (74-106) mg/dL POC Glucometer 118 H (74 to 106) mg/dL Calcium 7.9 L (8.4-10.2) mg/dL 07/17/22 07/17/22 07/17/22 Range/Units 07:07 11:14 15:57 WBC (4.0-10.5) x10^3/uL RBC (4.1-5.6) x10^6/uL Hgb (12.5-18.0) g/dL Hct (42-50) % MCV (78-100) fL MCH (26-32) pg MCHC (32-36) g/dL RDW (11.5-14.0) % Plt Count (150-450) x10^3/uL MPV (7.5-11.0) fL Gran % (36.0-66.0) % Immature Gran % (Auto) (0.00-0.4) % Nucleat RBC Rel Count (0.00-0.1) % Eos # (Auto) (0-0.5) x10^3/uL Immature Gran # (Auto) (0.00-0.03) x10^3u/L Absolute Lymphs (auto) (1.0-4.6) x10^3/uL Absolute Monos (auto) (0.0-1.3) x10^3/uL Absolute Nucleated RBC (0.00-0.01) x10^3u/L Lymphocytes % (24.0-44.0) % Monocytes % (0.0-12.0) % Eosinophils % (0.00-5.0) % Basophils % (0.0-0.4) % Absolute Granulocytes (1.4-6.9) x10^3/uL Basophils # (0-0.4) x10^3/uL Sodium (137-145) mmol/L Potassium (3.5-5.1) mmol/L Chloride (98-107) mmol/L Carbon Dioxide (22-30) mmol/L Anion Gap (5-15) MEQ/L BUN (9-20) mg/dL Creatinine (0.66-1.25) mg/dL Estimated GFR ML/MIN Glucose (74-106) mg/dL POC Glucometer 325 H 100 315 H (74 to 106) mg/dL Calcium (8.4-10.2) mg/dL Micro Results-Entire Visit: Microbiology 07/15/22 22:01 Urine Culture - Final Urine, Void <10K NORMAL SKIN DAVID PROBABLE SKIN CONTAMINANT Accuchecks Date 07/16/22 Time 21:58 Discharge Exam General Appearance: no apparent distress, alert Neurologic Exam: oriented x 3, cooperative Eye Exam: eyes nml inspection Ears, Nose, Throat Exam: moist mucous membranes Neck Exam: normal inspection Respiratory Exam: normal breath sounds, lungs clear, No crackles/rales, No rhonchi, No wheezing Cardiovascular Exam: regular rate/rhythm, normal heart sounds, No murmur Gastrointestinal/Abdomen Exam: soft, normal bowel sounds, No tenderness, No distention, No mass, No guarding, No rebound Extremity Exam: normal inspection, No pedal edema, No swelling Skin Exam: normal color, warm, dry, No rash Final Diagnosis/Problem List - Final Discharge Diagnosis/Problem (1) Nausea & vomiting Current Visit: No Status: Resolved Code(s): R11.2 - NAUSEA WITH VOMITING, UNSPECIFIED (2) Acute on chronic renal failure Current Visit: No Status: Acute Assessment & Plan: eGFR back up to 30 Code(s): N17.9 - ACUTE KIDNEY FAILURE, UNSPECIFIED; N18.9 - CHRONIC KIDNEY DISEASE, UNSPECIFIED (3) Hyperglycemia Current Visit: Yes Status: Chronic Assessment & Plan: [phone] here. Code(s): R73.9 - HYPERGLYCEMIA, UNSPECIFIED (4) Leukocytosis Current Visit: No Status: Resolved Code(s): D72.829 - ELEVATED WHITE BLOOD CELL COUNT, UNSPECIFIED (5) Hypertension Current Visit: Yes Status: Chronic Onset Date: ~05/30/18 Code(s): I10 - ESSENTIAL (PRIMARY) HYPERTENSION - Discharge Disposition: Home, Self-Care Condition: Stable Prescriptions: Continue Carvedilol [Coreg ] 6.25 mg PO BID Ondansetron ODT 4 MG [Zofran Odt 4 mg] 4 mg PO Q6H PRN PRN #10 tablet PRN Reason: Nausea Clonidine HCl Tts-2 Patch [Catapres TTS-2 PATCH] 0.2 mg TOP Q7D #3 patch Insulin Lispro [Admelog Solostar] 10 - 15 unit SQ TIDWMEALS #3 Ferrous Sulfate [Iron] 325 mg PO BID 30 Days #60 tablet Additional Instructions: YOU HAVE GLUCOMETER STRIPS READY FOR SONOGRAPHY TECHNICIAN AT [facility] HAS BEEN SET UP. THEY WILL CONTACT YOU TO ARRANGE A VISIT. THEIR PHONE NUMBER IS [phone] Follow up with: VALENTINA STARKS [Primary Care Provider] -
[2022-07-19] MEDS ORDERED: Catapres TTS-2 PATCH TOP SCH (10:00)
== END 2022-07-17 17:15 | disposition home or self-care (01) ==
LOC: ED 15:50 → MED SURG 20:40
PROVIDERS: ADMIT Family Medicine; ATTEND Family Medicine
DX: R11.2 Nausea with vomiting, unspecified (principal); E10.22 Type 1 diabetes mellitus with diabetic chronic kidney disease; E10.65 Type 1 diabetes mellitus with hyperglycemia; I12.9 Hypertensive chronic kidney disease with stage 1 through stage 4 chronic kidney disease, or unspecified chronic kidney disease; N18.9 Chronic kidney disease, unspecified; D72.829 Elevated white blood cell count, unspecified; K29.50 Unspecified chronic gastritis without bleeding; Z79.899 Other long term (current) drug therapy; Z20.828 Contact with and (suspected) exposure to other viral communicable diseases; Z91.14 Patient's other noncompliance with medication regimen
CPT/HCPCS: 0241U; 36000; 36415; 80048; 80053; 80307; 81015; 82947; 83605; 83690; 83735; 85025; 87086; 93041; 93268; 94760; 96360; 96374; 96376; 99285; 99291; J0360; J1815; J2405; A9270-GY; G0378; G0480

== ENCOUNTER 2022-07-23 06:07 | Inpatient (IN) | payer OTHER ==
[2022-07-23] MEDS ORDERED: Zofran 4 MG/2 ML VIAL IV ONE ×3 (06:29→21:39)
[2022-07-23] MEDS ORDERED: Sodium Chloride 0.9% 1000 ML 1,000 ML IV STA ×2 (06:29→06:49)
[2022-07-23] MEDS ORDERED: PROTONIX 40 MG IV IV ONE ×2 (06:49→07:37)
--- NOTE | 2022-07-23 07:01 | ERPHSYRPT ---
<NEYMAR DUEÑASLANDO - Last Filed: 07/23/22 18:52> - History of Present Illness Historian: patient Exam Limitations: clinical condition Patient Subjective Stated Complaint: pt states he has been vomiting for a week, was in ER last week for intractable vomiting. pt states has abdominal pain that he rates 10/10. EMT states blood sugar was 410 Triage Nursing Assessment: pt is alert and able to answer questions, transferred from cot to bed, moaning in pain stating that he has 10/10 pain in abdomin. pt appears pale and is holding an emesis bag. Timing/Duration: week(s), intermittent, worse Activities at Onset: rest Quality: sharpness Abdominal Pain Onset Location: generalized abdomen Pain Radiation: no radiation Severity of Pain-Max: severe Severity of Pain-Current: severe Modifying Factors: Improves With: vomiting. Worsens With: movement Associated Symptoms: nausea, vomiting Previous symptoms: same symptoms as today Hx Tetanus, Diphtheria Vaccination/Date Given: Yes Hx Influenza Vaccination/Date Given: No Hx Pneumococcal Vaccination/Date Given: Yes (10/01/2016) <YUE OLIVER - Last Filed: 07/28/22 10:45> - History of Present Illness Time Seen by Provider: 07/23/22 06:41 Physician History: 36 years old type I diabetic poorly controlled multiple DKA's in the past presented with off-and-on abdominal pain for 1 week with multiple episodes of nonprojectile, nonbilious vomiting without hematemesis. Patient is unable to hold anything down. Denies diarrhea. Feels weak fatigued tired and dehydrated. Patient is lethargic on presentation, mild tachycardia with a heart rate in 120s. Patient had a blood sugar of 410 by EMS. (YUE OLIVER) Allergies/Adverse Reactions: No Known Drug Allergies Allergy (Verified 07/15/22 15:53) Home Medications: Carvedilol [Coreg ] 6.25 mg PO BID 06/04/22 [History] Travel Risk - International Travel Have you traveled outside of the country in past 3 weeks: No - Coronavirus Screening Are you exhibiting any of the following symptoms?: No Close contact with a COVID-19 positive Pt in past 14-21 Days: No - Vaccine Status Have you recieved a Covid-19 vaccination: No <YUE OLIVER - Last Filed: 07/28/22 10:45> - Review of Systems Constitutional: Fatigue, Weakness Eyes: No Symptoms Ears, Nose, & Throat: No Symptoms Respiratory: No Symptoms Cardiac: No Symptoms Abdominal/Gastrointestinal: Abdominal Pain, Nausea, Vomiting Genitourinary Symptoms: No Symptoms Musculoskeletal: Myalgias Skin: No Symptoms Neurological: No Symptoms Psychological: No Symptoms Endocrine: No Symptoms Hematologic/Lymphatic: No Symptoms Immunological/Allergic: No Symptoms <YUE OLIVER - Last Filed: 07/28/22 10:45> - Past Medical History Pertinent Past Medical History: Yes Neurological History: No Pertinent History ENT History: No Pertinent History Cardiac History: Hypertension Respiratory History: No Pertinent History Endocrine Medical History: Diabetes Type I Musculoskeletal History: No Pertinent History GI Medical History: No Pertinent History History: No Pertinent History Psycho-Social History: Anxiety, Depression Male Reproductive Disorders: No Pertinent History Other Medical History: DKA - Past Surgical History Past Surgical History: No Neuro Surgical History: No Pertinent History Cardiac: No Pertinent History Respiratory: No Pertinent History Gastrointestinal: No Pertinent History Genitourinary: No Pertinent History Musculoskeletal: No Pertinent History Male Surgical History: No Pertinent History Other Surgical History: . - Social History Smoking Status: Never smoker Exposure to second hand smoke: No Drug Use: none Patient Lives Alone: No Significant Family History: no pertinent family hx <MELODYYUE Last Filed: 07/28/22 10:45> - Physical Exam General Appearance: no apparent distress, alert Eye Exam: PERRL/EOMI Ears, Nose, Throat Exam: normal ENT inspection Neck Exam: normal inspection, supple, full range of motion Respiratory Exam: normal breath sounds, lungs clear Cardiovascular Exam: normal heart sounds, tachycardia Gastrointestinal/Abdomen Exam: tenderness, guarding Back Exam: normal inspection, normal range of motion Extremity Exam: normal inspection, normal range of motion Neurologic Exam: alert, oriented x 3, cooperative Skin Exam: normal color SpO2 Interpretation: normal SpO2: 100 O2 Delivery: Room Air <MELODYYUE - Last Filed: 07/28/22 10:45> - Nursing Vital Signs Nursing Vital Signs: Initial Vital Signs Temperature 96.6 F 07/23/22 06:08 Pulse Rate 123 H 07/23/22 06:08 Respiratory Rate 18 07/23/22 06:08 Blood Pressure 181/94 07/23/22 06:08 O2 Sat by Pulse Oximetry 100 07/23/22 06:08 Pain Scale Pain Intensity 0 - Course Nursing assessment & vital signs reviewed: Yes EKG Interpreted by Me: RATE ([id number]), Sinus Tach, NORMAL AXIS, NORMAL INTERVALS - CT Exams Abdomen/Pelvis CT Interpretation: Tele-radiologist Report (Small hiatal hernia fecal debris L5 spondylolysis) <MANDI DUEÑAS - Last Filed: 07/23/22 18:52> Ordered Tests: Medication Summary Generic Name Dose Route Start Last Admin Trade Name Freq PRN Reason Stop Dose Admin Acetaminophen 650 mg 07/23/22 22:00 Acetaminophen 325 Mg Tablet PO 08/22/22 21:59 Q4H PRN PRN PAIN AND/OR FEVER Al Hydrox/Mg Hydrox/Simethicone 30 ml 07/23/22 22:00 Mag Hydrox/Al Hydrox/Simeth 30 Ml Udcup PO 08/22/22 21:59 Q4H PRN PRN INDIGESTION Amlodipine Besylate 5 mg 07/27/22 10:00 07/28/22 08:32 Amlodipine Besylate 5 Mg Tablet PO 08/26/22 09:59 5 mg QAM XIN Administration Aspirin 325 mg 07/24/22 10:00 07/28/22 08:42 Aspirin 325 Mg Tablet.Ec PO 08/23/22 09:59 Not Given DAILY XIN Carvedilol 12.5 mg 07/25/22 10:00 07/28/22 08:32 Carvedilol 12.5 Mg Tablet PO 08/24/22 09:59 12.5 mg BID XIN Administration Clonidine HCl 0.2 mg 07/26/22 10:00 07/26/22 09:05 Clonidine Hcl 0.2 Mg Patch TOP 08/25/22 09:59 0.2 mg Q7D XIN Administration Epoetin Alejo 10,000 unit 07/25/22 16:00 07/27/22 17:19 Epoetin Alejo-Epbx 10,000 Unit/Ml Vial SQ 08/24/22 15:59 10,000 unit MoWeFr XIN Administration Potassium Chloride/Sodium Chloride 1,000 mls @ 50 mls/hr 07/25/22 15:30 07/28/22 05:34 Sodium Chloride 0.9% W/ 20 Meq Kcl/Liter IV 08/24/22 15:29 50 mls/hr .Q20H XIN Administration Insulin Glargine 10 unit 07/25/22 10:00 07/28/22 08:32 Insulin Glargine 1 Unit SQ 08/24/22 09:59 10 unit DAILY XIN Administration Insulin Human Lispro 0 unit 07/25/22 08:34 07/28/22 08:32 Insulin Lispro 1 Unit SQ 08/24/22 08:33 5 unit UD PRN Administration HYPERGLYCEMIA Magnesium Hydroxide 30 - 60 ml 07/23/22 22:00 07/27/22 01:13 Magnesium Hydroxide 30 Ml Udcup PO 08/22/22 21:59 30 ml QDP PRN Administration CONSTIPATION Nicotine 21 mg 07/24/22 10:00 07/28/22 08:42 Nicotine 21 Mg/Patch Patch TOP 08/23/22 09:59 Not Given Q24H10 XIN Ondansetron HCl 4 mg 07/23/22 22:00 07/26/22 16:18 Ondansetron Hcl 4 Mg/2 Ml Vial IV 08/22/22 21:59 4 mg Q4H PRN PRN Administration NAUSEA/VOMITING Ondansetron HCl 4 mg 07/24/22 09:15 Zofran 4 Mg/Udtablet Orally Disintegrating PO 08/23/22 09:14 Q6H PRN PRN NAUSEA Senna/Docusate Sodium 2 udtab 07/23/22 22:00 Senna/Docusate Sodium 1 Udtab Tablet PO 08/22/22 21:59 BID PRN PRN CONSTIPATION Discontinued Medications Generic Name Dose Route Start Last Admin Trade Name Kirkq PRN Reason Stop Dose Admin Amlodipine Besylate 5 mg 07/27/22 08:24 07/27/22 08:53 Amlodipine Besylate 5 Mg Tablet PO 07/27/22 08:25 5 mg STAT ONE Administration Aspirin 324 mg 07/23/22 17:49 07/23/22 18:32 Aspirin 81 Mg Tab.Chew PO 07/23/22 17:50 324 mg STAT ONE Administration Carvedilol 6.25 mg 07/24/22 10:00 07/24/22 21:56 Carvedilol 6.25 Mg Tablet PO 08/23/22 09:59 Not Given BID XIN Diphenhydramine HCl 50 mg 07/24/22 18:50 07/24/22 18:54 Diphenhydramine Hcl 50 Mg/Ml Vial IV 07/24/22 18:51 50 mg STAT ONE Administration Heparin Sodium (Beef Lung) 3,900 unit 07/23/22 18:57 07/23/22 19:01 Heparin 5000 Units/0.5 Ml 5,000 Unit/0.5 Ml Syr 60 unit/kg (3900 unit) 07/23/22 18:58 3,900 unit IV Administration STAT STA Heparin Sodium (Beef Lung) Confirm 07/23/22 18:59 Heparin 5000 Units/0.5 Ml 5,000 Unit/0.5 Ml Syr Administered 07/23/22 19:00 Dose 5,000 unit .ROUTE .STK-MED ONE Sodium Chloride 1,000 mls @ 999 mls/hr 07/23/22 06:29 07/23/22 09:01 Sodium Chloride 0.9% 1000 Ml IV 07/23/22 07:29 Infused .Q1H1M STA Infusion Sodium Chloride 1,000 mls @ 999 mls/hr 07/23/22 06:49 07/23/22 09:02 Sodium Chloride 0.9% 1000 Ml IV 07/23/22 07:49 Infused .Q1H1M STA Infusion Sodium Chloride Confirm 07/23/22 07:37 Sodium Chloride 0.9% 1000 Ml Administered 07/23/22 07:38 Dose 2,000 mls @ ud .ROUTE .STK-MED ONE Insulin Human Regular 100 unit 100 mls @ 6.464 mls/hr 07/23/22 10:25 07/24/22 09:28 / Sodium Chloride IV 08/22/22 10:24 0 unit/kg/hr .[id number] PRN 0 mls/hr DKA/HYPERGLYCEMIA Titration Protocol 0.1 UNIT/KG/HR Lactated Ringer's 1,000 mls @ 100 mls/hr 07/23/22 15:30 07/24/22 03:46 Lactated Ringers IV 08/22/22 15:29 100 mls/hr .Q10H XIN Administration Heparin Sodium/Dextrose 25,000 units in 250 mls @ 7.756 mls/hr 07/23/22 19:00 07/24/22 09:03 Heparin 25,000 Units/D5w: Use Order Set Donta IV 08/22/22 18:59 49.51 units/kg/hr .Q24H XIN 32 mls/hr Titration Protocol 12 UNITS/KG/HR Potassium Chloride 20 meq/ 1,010 mls @ 150 mls/hr 07/23/22 20:00 07/24/22 05:02 Dextrose/Sodium Chloride IV 08/22/22 19:59 Not Given .Q6H44M XIN Potassium Chloride/Dextrose/Sod Cl Confirm 07/23/22 21:00 D5w/0.45ns W/ 20meq Kcl 1000 Ml Administered 07/23/22 21:01 Dose 1,000 mls @ ud IV .STK-MED ONE Potassium Chloride/Dextrose/Sod Cl Confirm 07/24/22 04:20 D5w/0.45ns W/ 20meq Kcl 1000 Ml Administered 07/24/22 04:21 Dose 1,000 mls @ ud IV .STK-MED ONE Potassium Chloride/Dextrose/Sod Cl 1,000 mls @ 150 mls/hr 07/24/22 04:30 07/25/22 10:26 D5w/0.45ns W/ 20meq Kcl 1000 Ml IV 08/23/22 04:29 Not Given .Q6H40M XIN Heparin Sodium/Dextrose 25,000 units in 250 mls @ 10 mls/hr 07/24/22 10:30 07/25/22 08:37 Heparin 25,000 Units/D5w: Use Order Set Donta IV 08/23/22 10:29 0 units/hr .Q24H XIN 0 mls/hr Titration Protocol 1,000 UNITS/HR Azithromycin 500 mg in 250 mls @ 250 mls/hr 07/24/22 18:02 07/24/22 18:21 Zithromax 500 Mg/ 250 Ml Nacl Premix IV 08/23/22 18:01 250 mls/hr Q24H10 XIN Administration Azithromycin Confirm 07/24/22 18:19 Zithromax 500 Mg/ 250 Ml Nacl Premix Administered 07/24/22 18:20 Dose 500 mg in 250 mls @ ud IV .STK-MED ONE Potassium Chloride/Sodium Chloride 1,000 mls @ 50 mls/hr 07/25/22 08:45 07/25/22 08:45 Sodium Chloride 0.45% W/ 20 Meq Kcl IV 08/24/22 08:44 100 mls/hr .Q20H XIN Administration Insulin Human Lispro 0 unit 07/24/22 10:00 07/25/22 00:47 Insulin Lispro 1 Unit SQ 08/23/22 09:59 6 unit UD PRN Administration HYPERGLYCEMIA Labetalol HCl 10 mg 07/24/22 22:00 07/25/22 06:29 Labetalol Hcl 20 Mg/4 Ml Disp.Syringe IV 08/23/22 21:59 10 mg Q8H XIN Administration Metoprolol Succinate 25 mg 07/27/22 04:39 07/27/22 04:43 Metoprolol Succinate 25 Mg Xl Tab PO 07/27/22 04:40 25 mg STAT ONE Administration Nitroglycerin 1 gm 07/23/22 20:46 07/23/22 21:12 Nitroglycerin 1 Gm Packet TOP 07/23/22 20:47 1 gm STAT ONE Administration Nitroglycerin Confirm 07/23/22 20:57 Nitroglycerin 1 Gm Packet Administered 07/23/22 20:58 Dose 1 gm .ROUTE .STK-MED ONE Nitroglycerin 1 gm 07/23/22 22:00 07/26/22 05:46 Nitroglycerin 1 Gm Packet TOP 08/22/22 21:59 Not Given Q8HT XIN Ondansetron HCl 4 mg 07/23/22 06:29 07/23/22 07:38 Ondansetron Hcl 4 Mg/2 Ml Vial IV 07/23/22 06:30 4 mg STAT ONE Administration Ondansetron HCl Confirm 07/23/22 07:37 Ondansetron Hcl 4 Mg/2 Ml Vial Administered 07/23/22 07:38 Dose 4 mg .ROUTE .STK-MED ONE Ondansetron HCl 4 mg 07/23/22 08:39 07/23/22 09:01 Ondansetron Hcl 4 Mg/2 Ml Vial IV 07/23/22 08:40 4 mg STAT ONE Administration Ondansetron HCl Confirm 07/23/22 08:59 Ondansetron Hcl 4 Mg/2 Ml Vial Administered 07/23/22 09:00 Dose 4 mg .ROUTE .STK-MED ONE Ondansetron HCl Confirm 07/23/22 21:30 Ondansetron Hcl 4 Mg/2 Ml Vial Administered 07/23/22 21:31 Dose 4 mg .ROUTE .STK-MED ONE Ondansetron HCl 4 mg 07/23/22 21:39 07/23/22 21:40 Ondansetron Hcl 4 Mg/2 Ml Vial IV 07/23/22 21:40 4 mg STAT ONE Administration Pantoprazole Sodium 40 mg 07/23/22 06:49 07/23/22 07:38 Pantoprazole 40 Mg Vial IV 07/23/22 06:50 40 mg STAT ONE Administration Pantoprazole Sodium Confirm 07/23/22 07:37 Pantoprazole 40 Mg Vial Administered 07/23/22 07:38 Dose 40 mg IV .[facility] ONE Lab/Rad Data: Laboratory Result Diagrams 07/24/22 03:00 07/24/22 06:25 Laboratory Results 07/24/22 07/24/22 07/24/22 Range/Units 08:02 06:25 06:25 WBC (4.0-10.5) x10^3/uL RBC (4.1-5.6) x10^6/uL Hgb (12.5-18.0) g/dL Hct (42-50) % MCV (78-100) fL MCH (26-32) pg MCHC (32-36) g/dL RDW (11.5-14.0) % Plt Count (150-450) x10^3/uL MPV (7.5-11.0) fL Gran % (36.0-66.0) % Immature Gran % (Auto) (0.00-0.4) % Nucleat RBC Rel Count (0.00-0.1) % Eos # (Auto) (0-0.5) x10^3/uL Immature Gran # (Auto) (0.00-0.03) x10^3u/L Absolute Lymphs (auto) (1.0-4.6) x10^3/uL Absolute Monos (auto) (0.0-1.3) x10^3/uL Absolute Nucleated RBC (0.00-0.01) x10^3u/L Lymphocytes % (24.0-44.0) % Monocytes % (0.0-12.0) % Eosinophils % (0.00-5.0) % Basophils % (0.0-0.4) % Absolute Granulocytes (1.4-6.9) x10^3/uL Basophils # (0-0.4) x10^3/uL PT (9.4-12.5) SECONDS INR (0.8-3.0) APTT 35.8 (25.1-36.5) SECONDS pO2/FiO2 Ratio % VBG pH (7.32-7.42) VBG pCO2 at Pat Temp (42-55) mm/Hg VBG pO2 at Pat Temp (25-40) mm/Hg VBG HCO3 (22-28) meq/L VBG O2 Sat (Jalen) (95-100) VBG Base Excess (-2.0-2.0) VBG Hemoglobin VBG Carboxyhemoglobin (0.0-6.9) % T HGB POC Potassium (3.5-5.1) Sodium 128 L (137-145) mmol/L Potassium 3.5 (3.5-5.1) mmol/L Chloride 89 L (98-107) mmol/L Carbon Dioxide 25 (22-30) mmol/L Anion Gap 18.1 H (5-15) MEQ/L BUN 35 H (9-20) mg/dL Creatinine 3.25 H (0.66-1.25) mg/dL Estimated GFR 23.1 ML/MIN Glucose 215 H (74-106) mg/dL POC Glucometer 148 H (50 to 500) mg/dL Serum Osmolality (275-295) mOsmol/kg Lactic Acid (0.4-2.0) Calcium 7.2 L (8.4-10.2) mg/dL Phosphorus (2.5-4.5) mg/dL Magnesium (1.6-2.3) mg/dL Total Bilirubin (0.2-1.3) mg/dL AST (17-59) U/L ALT (0-50) U/L Alkaline Phosphatase (38-126) U/L Troponin I (0.000-0.034) ng/mL Serum Total Protein (6.3-8.2) g/dL Albumin (3.5-5.0) g/dL Triglycerides (30-150) mg/dL Cholesterol (50-200) mg/dL LDL Cholesterol (30-100) mg/dL HDL Cholesterol (40-60) mg/dL Heart Disease Risk Ratio Lipase (23-300) U/L Procalcitonin (0.030-0.080) ng/mL Urinalys Dipstick Clnc Urine Color (YELLOW) Urine Appearance (CLEAR) Urine pH (5-6) Ur Specific Chester (1.005-1.025) POC Urine Protein Conf (Negative) Urine Ketones (NEGATIVE) Urine Nitrite (NEGATIVE) Urine Bilirubin (NEGATIVE) Urine Urobilinogen (0-1) mg/dL Urine Leukocytes (NEGATIVE) Urine WBC (Auto) (0-5) /HPF Urine RBC (Auto) (0-2) /HPF U Epithel Cells (Auto) (FEW) /HPF Urine Bacteria (Auto) (NEGATIVE) /HPF Urine RBC (0-5) Tomas/ul Ur Culture Indicated? Urine Glucose (NEGATIVE) mg/dL Influenza Type A Ag (NEGATIVE) Influenza Type B Ag (NEGATIVE) RSV (PCR) (Negative) SARS-CoV-2 (PCR) (NEGATIVE) Slides for Path Review 07/24/22 07/24/22 07/24/22 Range/Units 06:25 06:20 05:29 WBC (4.0-10.5) x10^3/uL RBC (4.1-5.6) x10^6/uL Hgb (12.5-18.0) g/dL Hct (42-50) % MCV (78-100) fL MCH (26-32) pg MCHC (32-36) g/dL RDW (11.5-14.0) % Plt Count (150-450) x10^3/uL MPV (7.5-11.0) fL Gran % (36.0-66.0) % Immature Gran % (Auto) (0.00-0.4) % Nucleat RBC Rel Count (0.00-0.1) % Eos # (Auto) (0-0.5) x10^3/uL Immature Gran # (Auto) (0.00-0.03) x10^3u/L Absolute Lymphs (auto) (1.0-4.6) x10^3/uL Absolute Monos (auto) (0.0-1.3) x10^3/uL Absolute Nucleated RBC (0.00-0.01) x10^3u/L Lymphocytes % (24.0-44.0) % Monocytes % (0.0-12.0) % Eosinophils % (0.00-5.0) % Basophils % (0.0-0.4) % Absolute Granulocytes (1.4-6.9) x10^3/uL Basophils # (0-0.4) x10^3/uL PT (9.4-12.5) SECONDS INR (0.8-3.0) APTT (25.1-36.5) SECONDS pO2/FiO2 Ratio % VBG pH (7.32-7.42) VBG pCO2 at Pat Temp (42-55) mm/Hg VBG pO2 at Pat Temp (25-40) mm/Hg VBG HCO3 (22-28) meq/L VBG O2 Sat (Jalen) (95-100) VBG Base Excess (-2.0-2.0) VBG Hemoglobin VBG Carboxyhemoglobin (0.0-6.9) % T HGB POC Potassium (3.5-5.1) Sodium (137-145) mmol/L Potassium (3.5-5.1) mmol/L Chloride (98-107) mmol/L Carbon Dioxide (22-30) mmol/L Anion Gap (5-15) MEQ/L BUN (9-20) mg/dL Creatinine (0.66-1.25) mg/dL Estimated GFR ML/MIN Glucose (74-106) mg/dL POC Glucometer 217 H 192 H (50 to 500) mg/dL Serum Osmolality (275-295) mOsmol/kg Lactic Acid (0.4-2.0) Calcium (8.4-10.2) mg/dL Phosphorus (2.5-4.5) mg/dL Magnesium (1.6-2.3) mg/dL Total Bilirubin (0.2-1.3) mg/dL AST (17-59) U/L ALT (0-50) U/L Alkaline Phosphatase (38-126) U/L Troponin I 0.405 H* (0.000-0.034) ng/mL Serum Total Protein (6.3-8.2) g/dL Albumin (3.5-5.0) g/dL Triglycerides (30-150) mg/dL Cholesterol (50-200) mg/dL LDL Cholesterol (30-100) mg/dL HDL Cholesterol (40-60) mg/dL Heart Disease Risk Ratio Lipase (23-300) U/L Procalcitonin (0.030-0.080) ng/mL Urinalys Dipstick Clnc Urine Color (YELLOW) Urine Appearance (CLEAR) Urine pH (5-6) Ur Specific Chester (1.005-1.025) POC Urine Protein Conf (Negative) Urine Ketones (NEGATIVE) Urine Nitrite (NEGATIVE) Urine Bilirubin (NEGATIVE) Urine Urobilinogen (0-1) mg/dL Urine Leukocytes (NEGATIVE) Urine WBC (Auto) (0-5) /HPF Urine RBC (Auto) (0-2) /HPF U Epithel Cells (Auto) (FEW) /HPF Urine Bacteria (Auto) (NEGATIVE) /HPF Urine RBC (0-5) Tomas/ul Ur Culture Indicated? Urine Glucose (NEGATIVE) mg/dL Influenza Type A Ag (NEGATIVE) Influenza Type B Ag (NEGATIVE) RSV (PCR) (Negative) SARS-CoV-2 (PCR) (NEGATIVE) Slides for Path Review 07/24/22 07/24/22 07/24/22 Range/Units 04:00 03:00 03:00 WBC 14.8 H (4.0-10.5) x10^3/uL RBC 3.14 L (4.1-5.6) x10^6/uL Hgb 8.9 L (12.5-18.0) g/dL Hct 27.7 L (42-50) % MCV 88.2 (78-100) fL MCH 28.3 (26-32) pg MCHC 32.1 (32-36) g/dL RDW 13.6 (11.5-14.0) % Plt Count 463 H (150-450) x10^3/uL MPV 8.3 (7.5-11.0) fL Gran % 76.7 H (36.0-66.0) % Immature Gran % (Auto) 1.2 H (0.00-0.4) % Nucleat RBC Rel Count 0.0 (0.00-0.1) % Eos # (Auto) 0.13 (0-0.5) x10^3/uL Immature Gran # (Auto) 0.17 H (0.00-0.03) x10^3u/L Absolute Lymphs (auto) 1.35 (1.0-4.6) x10^3/uL Absolute Monos (auto) 1.75 H (0.0-1.3) x10^3/uL Absolute Nucleated RBC 0.00 (0.00-0.01) x10^3u/L Lymphocytes % 9.1 L (24.0-44.0) % Monocytes % 11.8 (0.0-12.0) % Eosinophils % 0.9 (0.00-5.0) % Basophils % 0.3 (0.0-0.4) % Absolute Granulocytes 11.33 H (1.4-6.9) x10^3/uL Basophils # 0.05 (0-0.4) x10^3/uL PT (9.4-12.5) SECONDS INR (0.8-3.0) APTT (25.1-36.5) SECONDS pO2/FiO2 Ratio % VBG pH (7.32-7.42) VBG pCO2 at Pat Temp (42-55) mm/Hg VBG pO2 at Pat Temp (25-40) mm/Hg VBG HCO3 (22-28) meq/L VBG O2 Sat (Jalen) (95-100) VBG Base Excess (-2.0-2.0) VBG Hemoglobin VBG Carboxyhemoglobin (0.0-6.9) % T HGB POC Potassium (3.5-5.1) Sodium 127 L (137-145) mmol/L Potassium 3.6 (3.5-5.1) mmol/L Chloride 89 L (98-107) mmol/L Carbon Dioxide 27 (22-30) mmol/L Anion Gap 14.2 (5-15) MEQ/L BUN 41 H (9-20) mg/dL Creatinine 3.27 H (0.66-1.25) mg/dL Estimated GFR 22.9 ML/MIN Glucose 127 H (74-106) mg/dL POC Glucometer 111 H (50 to 500) mg/dL Serum Osmolality (275-295) mOsmol/kg Lactic Acid (0.4-2.0) Calcium 7.6 L (8.4-10.2) mg/dL Phosphorus (2.5-4.5) mg/dL Magnesium (1.6-2.3) mg/dL Total Bilirubin (0.2-1.3) mg/dL AST (17-59) U/L ALT (0-50) U/L Alkaline Phosphatase (38-126) U/L Troponin I 0.510 H* (0.000-0.034) ng/mL Serum Total Protein (6.3-8.2) g/dL Albumin (3.5-5.0) g/dL Triglycerides 247 H (30-150) mg/dL Cholesterol 238 H (50-200) mg/dL LDL Cholesterol 152 H (30-100) mg/dL HDL Cholesterol 33 L (40-60) mg/dL Heart Disease Risk Ratio 7.2 Lipase (23-300) U/L Procalcitonin (0.030-0.080) ng/mL Urinalys Dipstick Clnc Urine Color (YELLOW) Urine Appearance (CLEAR) Urine pH (5-6) Ur Specific Chester (1.005-1.025) POC Urine Protein Conf (Negative) Urine Ketones (NEGATIVE) Urine Nitrite (NEGATIVE) Urine Bilirubin (NEGATIVE) Urine Urobilinogen (0-1) mg/dL Urine Leukocytes (NEGATIVE) Urine WBC (Auto) (0-5) /HPF Urine RBC (Auto) (0-2) /HPF U Epithel Cells (Auto) (FEW) /HPF Urine Bacteria (Auto) (NEGATIVE) /HPF Urine RBC (0-5) Tomas/ul Ur Culture Indicated? Urine Glucose (NEGATIVE) mg/dL Influenza Type A Ag (NEGATIVE) Influenza Type B Ag (NEGATIVE) RSV (PCR) (Negative) SARS-CoV-2 (PCR) (NEGATIVE) Slides for Path Review YES 07/24/22 07/24/22 07/24/22 Range/Units 02:52 02:30 02:10 WBC (4.0-10.5) x10^3/uL RBC (4.1-5.6) x10^6/uL Hgb (12.5-18.0) g/dL Hct (42-50) % MCV (78-100) fL MCH (26-32) pg MCHC (32-36) g/dL RDW (11.5-14.0) % Plt Count (150-450) x10^3/uL MPV (7.5-11.0) fL Gran % (36.0-66.0) % Immature Gran % (Auto) (0.00-0.4) % Nucleat RBC Rel Count (0.00-0.1) % Eos # (Auto) (0-0.5) x10^3/uL Immature Gran # (Auto) (0.00-0.03) x10^3u/L Absolute Lymphs (auto) (1.0-4.6) x10^3/uL Absolute Monos (auto) (0.0-1.3) x10^3/uL Absolute Nucleated RBC (0.00-0.01) x10^3u/L Lymphocytes % (24.0-44.0) % Monocytes % (0.0-12.0) % Eosinophils % (0.00-5.0) % Basophils % (0.0-0.4) % Absolute Granulocytes (1.4-6.9) x10^3/uL Basophils # (0-0.4) x10^3/uL PT (9.4-12.5) SECONDS INR (0.8-3.0) APTT 31.2 (25.1-36.5) SECONDS pO2/FiO2 Ratio % VBG pH (7.32-7.42) VBG pCO2 at Pat Temp (42-55) mm/Hg VBG pO2 at Pat Temp (25-40) mm/Hg VBG HCO3 (22-28) meq/L VBG O2 Sat (Jalen) (95-100) VBG Base Excess (-2.0-2.0) VBG Hemoglobin VBG Carboxyhemoglobin (0.0-6.9) % T HGB POC Potassium (3.5-5.1) Sodium (137-145) mmol/L Potassium (3.5-5.1) mmol/L Chloride (98-107) mmol/L Carbon Dioxide (22-30) mmol/L Anion Gap (5-15) MEQ/L BUN (9-20) mg/dL Creatinine (0.66-1.25) mg/dL Estimated GFR ML/MIN Glucose (74-106) mg/dL POC Glucometer 122 H 147 H (50 to 500) mg/dL Serum Osmolality (275-295) mOsmol/kg Lactic Acid (0.4-2.0) Calcium (8.4-10.2) mg/dL Phosphorus (2.5-4.5) mg/dL Magnesium (1.6-2.3) mg/dL Total Bilirubin (0.2-1.3) mg/dL AST (17-59) U/L ALT (0-50) U/L Alkaline Phosphatase (38-126) U/L Troponin I (0.000-0.034) ng/mL Serum Total Protein (6.3-8.2) g/dL Albumin (3.5-5.0) g/dL Triglycerides (30-150) mg/dL Cholesterol (50-200) mg/dL LDL Cholesterol (30-100) mg/dL HDL Cholesterol (40-60) mg/dL Heart Disease Risk Ratio Lipase (23-300) U/L Procalcitonin (0.030-0.080) ng/mL Urinalys Dipstick Clnc Urine Color (YELLOW) Urine Appearance (CLEAR) Urine pH (5-6) Ur Specific [place] (1.005-1.025) POC Urine Protein Conf (Negative) Urine Ketones (NEGATIVE) Urine Nitrite (NEGATIVE) Urine Bilirubin (NEGATIVE) Urine Urobilinogen (0-1) mg/dL Urine Leukocytes (NEGATIVE) Urine WBC (Auto) (0-5) /HPF Urine RBC (Auto) (0-2) /HPF U Epithel Cells (Auto) (FEW) /HPF Urine Bacteria (Auto) (NEGATIVE) /HPF Urine RBC (0-5) Tomas/ul Ur Culture Indicated? Urine Glucose (NEGATIVE) mg/dL Influenza Type A Ag (NEGATIVE) Influenza Type B Ag (NEGATIVE) RSV (PCR) (Negative) SARS-CoV-2 (PCR) (NEGATIVE) Slides for Path Review 07/24/22 07/24/22 07/23/22 Range/Units 01:22 00:21 23:27 WBC (4.0-10.5) x10^3/uL RBC (4.1-5.6) x10^6/uL Hgb (12.5-18.0) g/dL Hct (42-50) % MCV (78-100) fL MCH (26-32) pg MCHC (32-36) g/dL RDW (11.5-14.0) % Plt Count (150-450) x10^3/uL MPV (7.5-11.0) fL Gran % (36.0-66.0) % Immature Gran % (Auto) (0.00-0.4) % Nucleat RBC Rel Count (0.00-0.1) % Eos # (Auto) (0-0.5) x10^3/uL Immature Gran # (Auto) (0.00-0.03) x10^3u/L Absolute Lymphs (auto) (1.0-4.6) x10^3/uL Absolute Monos (auto) (0.0-1.3) x10^3/uL Absolute Nucleated RBC (0.00-0.01) x10^3u/L Lymphocytes % (24.0-44.0) % Monocytes % (0.0-12.0) % Eosinophils % (0.00-5.0) % Basophils % (0.0-0.4) % Absolute Granulocytes (1.4-6.9) x10^3/uL Basophils # (0-0.4) x10^3/uL PT (9.4-12.5) SECONDS INR (0.8-3.0) APTT (25.1-36.5) SECONDS pO2/FiO2 Ratio % VBG pH (7.32-7.42) VBG pCO2 at Pat Temp (42-55) mm/Hg VBG pO2 at Pat Temp (25-40) mm/Hg VBG HCO3 (22-28) meq/L VBG O2 Sat (Jalen) (95-100) VBG Base Excess (-2.0-2.0) VBG Hemoglobin VBG Carboxyhemoglobin (0.0-6.9) % T HGB POC Potassium (3.5-5.1) Sodium (137-145) mmol/L Potassium (3.5-5.1) mmol/L Chloride (98-107) mmol/L Carbon Dioxide (22-30) mmol/L Anion Gap (5-15) MEQ/L BUN (9-20) mg/dL Creatinine (0.66-1.25) mg/dL Estimated GFR ML/MIN Glucose (74-106) mg/dL POC Glucometer 175 H 212 H 287 H (50 to 500) mg/dL Serum Osmolality (275-295) mOsmol/kg Lactic Acid (0.4-2.0) Calcium (8.4-10.2) mg/dL Phosphorus (2.5-4.5) mg/dL Magnesium (1.6-2.3) mg/dL Total Bilirubin (0.2-1.3) mg/dL AST (17-59) U/L ALT (0-50) U/L Alkaline Phosphatase (38-126) U/L Troponin I (0.000-0.034) ng/mL Serum Total Protein (6.3-8.2) g/dL Albumin (3.5-5.0) g/dL Triglycerides (30-150) mg/dL Cholesterol (50-200) mg/dL LDL Cholesterol (30-100) mg/dL HDL Cholesterol (40-60) mg/dL Heart Disease Risk Ratio Lipase (23-300) U/L Procalcitonin (0.030-0.080) ng/mL Urinalys Dipstick Clnc Urine Color (YELLOW) Urine Appearance (CLEAR) Urine pH (5-6) Ur Specific [place] (1.005-1.025) POC Urine Protein Conf (Negative) Urine Ketones (NEGATIVE) Urine Nitrite (NEGATIVE) Urine Bilirubin (NEGATIVE) Urine Urobilinogen (0-1) mg/dL Urine Leukocytes (NEGATIVE) Urine WBC (Auto) (0-5) /HPF Urine RBC (Auto) (0-2) /HPF U Epithel Cells (Auto) (FEW) /HPF Urine Bacteria (Auto) (NEGATIVE) /HPF Urine RBC (0-5) Tomas/ul Ur Culture Indicated? Urine Glucose (NEGATIVE) mg/dL Influenza Type A Ag (NEGATIVE) Influenza Type B Ag (NEGATIVE) RSV (PCR) (Negative) SARS-CoV-2 (PCR) (NEGATIVE) Slides for Path Review 07/23/22 07/23/22 07/23/22 Range/Units 22:42 22:40 22:30 WBC (4.0-10.5) x10^3/uL RBC (4.1-5.6) x10^6/uL Hgb (12.5-18.0) g/dL Hct (42-50) % MCV (78-100) fL MCH (26-32) pg MCHC (32-36) g/dL RDW (11.5-14.0) % Plt Count (150-450) x10^3/uL MPV (7.5-11.0) fL Gran % (36.0-66.0) % Immature Gran % (Auto) (0.00-0.4) % Nucleat RBC Rel Count (0.00-0.1) % Eos # (Auto) (0-0.5) x10^3/uL Immature Gran # (Auto) (0.00-0.03) x10^3u/L Absolute Lymphs (auto) (1.0-4.6) x10^3/uL Absolute Monos (auto) (0.0-1.3) x10^3/uL Absolute Nucleated RBC (0.00-0.01) x10^3u/L Lymphocytes % (24.0-44.0) % Monocytes % (0.0-12.0) % Eosinophils % (0.00-5.0) % Basophils % (0.0-0.4) % Absolute Granulocytes (1.4-6.9) x10^3/uL Basophils # (0-0.4) x10^3/uL PT (9.4-12.5) SECONDS INR (0.8-3.0) APTT 34.7 (25.1-36.5) SECONDS pO2/FiO2 Ratio 21.0 % VBG pH 7.47 H (7.32-7.42) VBG pCO2 at Pat Temp 24 L (42-55) mm/Hg VBG pO2 at Pat Temp 135 H (25-40) mm/Hg VBG HCO3 17.5 L (22-28) meq/L VBG O2 Sat (Jalen) 99.3 (95-100) VBG Base Excess -5.1 L (-2.0-2.0) VBG Hemoglobin 9.2 VBG Carboxyhemoglobin 2.0 (0.0-6.9) % T HGB POC Potassium 3.5 (3.5-5.1) Sodium (137-145) mmol/L Potassium (3.5-5.1) mmol/L Chloride (98-107) mmol/L Carbon Dioxide (22-30) mmol/L Anion Gap (5-15) MEQ/L BUN (9-20) mg/dL Creatinine (0.66-1.25) mg/dL Estimated GFR ML/MIN Glucose (74-106) mg/dL POC Glucometer 335 H (50 to 500) mg/dL Serum Osmolality (275-295) mOsmol/kg Lactic Acid (0.4-2.0) Calcium (8.4-10.2) mg/dL Phosphorus (2.5-4.5) mg/dL Magnesium (1.6-2.3) mg/dL Total Bilirubin (0.2-1.3) mg/dL AST (17-59) U/L ALT (0-50) U/L Alkaline Phosphatase (38-126) U/L Troponin I (0.000-0.034) ng/mL Serum Total Protein (6.3-8.2) g/dL Albumin (3.5-5.0) g/dL Triglycerides (30-150) mg/dL Cholesterol (50-200) mg/dL LDL Cholesterol (30-100) mg/dL HDL Cholesterol (40-60) mg/dL Heart Disease Risk Ratio Lipase (23-300) U/L Procalcitonin (0.030-0.080) ng/mL Urinalys Dipstick Clnc Urine Color (YELLOW) Urine Appearance (CLEAR) Urine pH (5-6) Ur Specific [place] (1.005-1.025) POC Urine Protein Conf (Negative) Urine Ketones (NEGATIVE) Urine Nitrite (NEGATIVE) Urine Bilirubin (NEGATIVE) Urine Urobilinogen (0-1) mg/dL Urine Leukocytes (NEGATIVE) Urine WBC (Auto) (0-5) /HPF Urine RBC (Auto) (0-2) /HPF U Epithel Cells (Auto) (FEW) /HPF Urine Bacteria (Auto) (NEGATIVE) /HPF Urine RBC (0-5) Tomas/ul Ur Culture Indicated? Urine Glucose (NEGATIVE) mg/dL Influenza Type A Ag (NEGATIVE) Influenza Type B Ag (NEGATIVE) RSV (PCR) (Negative) SARS-CoV-2 (PCR) (NEGATIVE) Slides for Path Review 07/23/22 07/23/22 07/23/22 Range/Units 22:30 21:28 19:24 WBC (4.0-10.5) x10^3/uL RBC (4.1-5.6) x10^6/uL Hgb (12.5-18.0) g/dL Hct (42-50) % MCV (78-100) fL MCH (26-32) pg MCHC (32-36) g/dL RDW (11.5-14.0) % Plt Count (150-450) x10^3/uL MPV (7.5-11.0) fL Gran % (36.0-66.0) % Immature Gran % (Auto) (0.00-0.4) % Nucleat RBC Rel Count (0.00-0.1) % Eos # (Auto) (0-0.5) x10^3/uL Immature Gran # (Auto) (0.00-0.03) x10^3u/L Absolute Lymphs (auto) (1.0-4.6) x10^3/uL Absolute Monos (auto) (0.0-1.3) x10^3/uL Absolute Nucleated RBC (0.00-0.01) x10^3u/L Lymphocytes % (24.0-44.0) % Monocytes % (0.0-12.0) % Eosinophils % (0.00-5.0) % Basophils % (0.0-0.4) % Absolute Granulocytes (1.4-6.9) x10^3/uL Basophils # (0-0.4) x10^3/uL PT (9.4-12.5) SECONDS INR (0.8-3.0) APTT (25.1-36.5) SECONDS pO2/FiO2 Ratio % VBG pH (7.32-7.42) VBG pCO2 at Pat Temp (42-55) mm/Hg VBG pO2 at Pat Temp (25-40) mm/Hg VBG HCO3 (22-28) meq/L VBG O2 Sat (Jalen) (95-100) VBG Base Excess (-2.0-2.0) VBG Hemoglobin VBG Carboxyhemoglobin (0.0-6.9) % T HGB POC Potassium (3.5-5.1) Sodium (137-145) mmol/L Potassium (3.5-5.1) mmol/L Chloride (98-107) mmol/L Carbon Dioxide (22-30) mmol/L Anion Gap (5-15) MEQ/L BUN (9-20) mg/dL Creatinine (0.66-1.25) mg/dL Estimated GFR ML/MIN Glucose (74-106) mg/dL POC Glucometer 320 H 239 H (50 to 500) mg/dL Serum Osmolality (275-295) mOsmol/kg Lactic Acid (0.4-2.0) Calcium (8.4-10.2) mg/dL Phosphorus (2.5-4.5) mg/dL Magnesium (1.6-2.3) mg/dL Total Bilirubin (0.2-1.3) mg/dL AST (17-59) U/L ALT (0-50) U/L Alkaline Phosphatase (38-126) U/L Troponin I 0.513 H* (0.000-0.034) ng/mL Serum Total Protein (6.3-8.2) g/dL Albumin (3.5-5.0) g/dL Triglycerides (30-150) mg/dL Cholesterol (50-200) mg/dL LDL Cholesterol (30-100) mg/dL HDL Cholesterol (40-60) mg/dL Heart Disease Risk Ratio Lipase (23-300) U/L Procalcitonin (0.030-0.080) ng/mL Urinalys Dipstick Clnc Urine Color (YELLOW) Urine Appearance (CLEAR) Urine pH (5-6) Ur Specific [place] (1.005-1.025) POC Urine Protein Conf (Negative) Urine Ketones (NEGATIVE) Urine Nitrite (NEGATIVE) Urine Bilirubin (NEGATIVE) Urine Urobilinogen (0-1) mg/dL Urine Leukocytes (NEGATIVE) Urine WBC (Auto) (0-5) /HPF Urine RBC (Auto) (0-2) /HPF U Epithel Cells (Auto) (FEW) /HPF Urine Bacteria (Auto) (NEGATIVE) /HPF Urine RBC (0-5) Tomas/ul Ur Culture Indicated? Urine Glucose (NEGATIVE) mg/dL Influenza Type A Ag (NEGATIVE) Influenza Type B Ag (NEGATIVE) RSV (PCR) (Negative) SARS-CoV-2 (PCR) (NEGATIVE) Slides for Path Review 07/23/22 07/23/22 07/23/22 Range/Units 18:30 18:15 18:15 WBC (4.0-10.5) x10^3/uL RBC (4.1-5.6) x10^6/uL Hgb (12.5-18.0) g/dL Hct (42-50) % MCV (78-100) fL MCH (26-32) pg MCHC (32-36) g/dL RDW (11.5-14.0) % Plt Count (150-450) x10^3/uL MPV (7.5-11.0) fL Gran % (36.0-66.0) % Immature Gran % (Auto) (0.00-0.4) % Nucleat RBC Rel Count (0.00-0.1) % Eos # (Auto) (0-0.5) x10^3/uL Immature Gran # (Auto) (0.00-0.03) x10^3u/L Absolute Lymphs (auto) (1.0-4.6) x10^3/uL Absolute Monos (auto) (0.0-1.3) x10^3/uL Absolute Nucleated RBC (0.00-0.01) x10^3u/L Lymphocytes % (24.0-44.0) % Monocytes % (0.0-12.0) % Eosinophils % (0.00-5.0) % Basophils % (0.0-0.4) % Absolute Granulocytes (1.4-6.9) x10^3/uL Basophils # (0-0.4) x10^3/uL PT 11.1 (9.4-12.5) SECONDS INR 1.05 (0.8-3.0) APTT 22.4 L (25.1-36.5) SECONDS pO2/FiO2 Ratio % VBG pH (7.32-7.42) VBG pCO2 at Pat Temp (42-55) mm/Hg VBG pO2 at Pat Temp (25-40) mm/Hg VBG HCO3 (22-28) meq/L VBG O2 Sat (Jalen) (95-100) VBG Base Excess (-2.0-2.0) VBG Hemoglobin VBG Carboxyhemoglobin (0.0-6.9) % T HGB POC Potassium (3.5-5.1) Sodium 132 L (137-145) mmol/L Potassium 4.2 (3.5-5.1) mmol/L Chloride 87 L (98-107) mmol/L Carbon Dioxide 21 L (22-30) mmol/L Anion Gap 28.7 H (5-15) MEQ/L BUN 45 H (9-20) mg/dL Creatinine 3.97 H (0.66-1.25) mg/dL Estimated GFR 18.3 ML/MIN Glucose 299 H (74-106) mg/dL POC Glucometer 249 H (50 to 500) mg/dL Serum Osmolality (275-295) mOsmol/kg Lactic Acid (0.4-2.0) Calcium 8.0 L (8.4-10.2) mg/dL Phosphorus (2.5-4.5) mg/dL Magnesium (1.6-2.3) mg/dL Total Bilirubin 0.40 (0.2-1.3) mg/dL AST 22 (17-59) U/L ALT 19 (0-50) U/L Alkaline Phosphatase 153 H (38-126) U/L Troponin I (0.000-0.034) ng/mL Serum Total Protein 6.4 (6.3-8.2) g/dL Albumin 3.4 L (3.5-5.0) g/dL Triglycerides (30-150) mg/dL Cholesterol (50-200) mg/dL LDL Cholesterol (30-100) mg/dL HDL Cholesterol (40-60) mg/dL Heart Disease Risk Ratio Lipase (23-300) U/L Procalcitonin (0.030-0.080) ng/mL Urinalys Dipstick Clnc Urine Color (YELLOW) Urine Appearance (CLEAR) Urine pH (5-6) Ur Specific [place] (1.005-1.025) POC Urine Protein Conf (Negative) Urine Ketones (NEGATIVE) Urine Nitrite (NEGATIVE) Urine Bilirubin (NEGATIVE) Urine Urobilinogen (0-1) mg/dL Urine Leukocytes (NEGATIVE) Urine WBC (Auto) (0-5) /HPF Urine RBC (Auto) (0-2) /HPF U Epithel Cells (Auto) (FEW) /HPF Urine Bacteria (Auto) (NEGATIVE) /HPF Urine RBC (0-5) Tomas/ul Ur Culture Indicated? Urine Glucose (NEGATIVE) mg/dL Influenza Type A Ag (NEGATIVE) Influenza Type B Ag (NEGATIVE) RSV (PCR) (Negative) SARS-CoV-2 (PCR) (NEGATIVE) Slides for Path Review 12/01/0707/23/22 07/23/22 Range/Units 17:30 16:21 16:16 WBC (4.0-10.5) x10^3/uL RBC (4.1-5.6) x10^6/uL Hgb (12.5-18.0) g/dL Hct (42-50) % MCV (78-100) fL MCH (26-32) pg MCHC (32-36) g/dL RDW (11.5-14.0) % Plt Count (150-450) x10^3/uL MPV (7.5-11.0) fL Gran % (36.0-66.0) % Immature Gran % (Auto) (0.00-0.4) % Nucleat RBC Rel Count (0.00-0.1) % Eos # (Auto) (0-0.5) x10^3/uL Immature Gran # (Auto) (0.00-0.03) x10^3u/L Absolute Lymphs (auto) (1.0-4.6) x10^3/uL Absolute Monos (auto) (0.0-1.3) x10^3/uL Absolute Nucleated RBC (0.00-0.01) x10^3u/L Lymphocytes % (24.0-44.0) % Monocytes % (0.0-12.0) % Eosinophils % (0.00-5.0) % Basophils % (0.0-0.4) % Absolute Granulocytes (1.4-6.9) x10^3/uL Basophils # (0-0.4) x10^3/uL PT (9.4-12.5) SECONDS INR (0.8-3.0) APTT (25.1-36.5) SECONDS pO2/FiO2 Ratio % VBG pH (7.32-7.42) VBG pCO2 at Pat Temp (42-55) mm/Hg VBG pO2 at Pat Temp (25-40) mm/Hg VBG HCO3 (22-28) meq/L VBG O2 Sat (Jalen) (95-100) VBG Base Excess (-2.0-2.0) VBG Hemoglobin VBG Carboxyhemoglobin (0.0-6.9) % T HGB POC Potassium (3.5-5.1) Sodium (137-145) mmol/L Potassium (3.5-5.1) mmol/L Chloride (98-107) mmol/L Carbon Dioxide (22-30) mmol/L Anion Gap (5-15) MEQ/L BUN (9-20) mg/dL Creatinine (0.66-1.25) mg/dL Estimated GFR ML/MIN Glucose (74-106) mg/dL POC Glucometer 342 H 472 H (50 to 500) mg/dL Serum Osmolality (275-295) mOsmol/kg Lactic Acid (0.4-2.0) Calcium (8.4-10.2) mg/dL Phosphorus (2.5-4.5) mg/dL Magnesium (1.6-2.3) mg/dL Total Bilirubin (0.2-1.3) mg/dL AST (17-59) U/L ALT (0-50) U/L Alkaline Phosphatase (38-126) U/L Troponin I 0.266 H* (0.000-0.034) ng/mL Serum Total Protein (6.3-8.2) g/dL Albumin (3.5-5.0) g/dL Triglycerides (30-150) mg/dL Cholesterol (50-200) mg/dL LDL Cholesterol (30-100) mg/dL HDL Cholesterol (40-60) mg/dL Heart Disease Risk Ratio Lipase (23-300) U/L Procalcitonin (0.030-0.080) ng/mL Urinalys Dipstick Clnc Urine Color (YELLOW) Urine Appearance (CLEAR) Urine pH (5-6) Ur Specific [place] (1.005-1.025) POC Urine Protein Conf (Negative) Urine Ketones (NEGATIVE) Urine Nitrite (NEGATIVE) Urine Bilirubin (NEGATIVE) Urine Urobilinogen (0-1) mg/dL Urine Leukocytes (NEGATIVE) Urine WBC (Auto) (0-5) /HPF Urine RBC (Auto) (0-2) /HPF U Epithel Cells (Auto) (FEW) /HPF Urine Bacteria (Auto) (NEGATIVE) /HPF Urine RBC (0-5) Tomas/ul Ur Culture Indicated? Urine Glucose (NEGATIVE) mg/dL Influenza Type A Ag (NEGATIVE) Influenza Type B Ag (NEGATIVE) RSV (PCR) (Negative) SARS-CoV-2 (PCR) (NEGATIVE) Slides for Path Review 07/23/22 07/23/22 07/23/22 Range/Units 15:04 14:15 13:40 WBC (4.0-10.5) x10^3/uL RBC (4.1-5.6) x10^6/uL Hgb (12.5-18.0) g/dL Hct (42-50) % MCV (78-100) fL MCH (26-32) pg MCHC (32-36) g/dL RDW (11.5-14.0) % Plt Count (150-450) x10^3/uL MPV (7.5-11.0) fL Gran % (36.0-66.0) % Immature Gran % (Auto) (0.00-0.4) % Nucleat RBC Rel Count (0.00-0.1) % Eos # (Auto) (0-0.5) x10^3/uL Immature Gran # (Auto) (0.00-0.03) x10^3u/L Absolute Lymphs (auto) (1.0-4.6) x10^3/uL Absolute Monos (auto) (0.0-1.3) x10^3/uL Absolute Nucleated RBC (0.00-0.01) x10^3u/L Lymphocytes % (24.0-44.0) % Monocytes % (0.0-12.0) % Eosinophils % (0.00-5.0) % Basophils % (0.0-0.4) % Absolute Granulocytes (1.4-6.9) x10^3/uL Basophils # (0-0.4) x10^3/uL PT (9.4-12.5) SECONDS INR (0.8-3.0) APTT (25.1-36.5) SECONDS pO2/FiO2 Ratio 21.0 % VBG pH 7.36 (7.32-7.42) VBG pCO2 at Pat Temp 15 L* (42-55) mm/Hg VBG pO2 at Pat Temp 145 H (25-40) mm/Hg VBG HCO3 8.5 L* (22-28) meq/L VBG O2 Sat (Jalen) 99.5 (95-100) VBG Base Excess -14.9 L (-2.0-2.0) VBG Hemoglobin 9.6 VBG Carboxyhemoglobin 2.2 (0.0-6.9) % T HGB POC Potassium 4.6 (3.5-5.1) Sodium 127 L (137-145) mmol/L Potassium 5.1 (3.5-5.1) mmol/L Chloride 80 L (98-107) mmol/L Carbon Dioxide < 5 L* (22-30) mmol/L Anion Gap (5-15) MEQ/L BUN 40 H (9-20) mg/dL Creatinine 4.01 H (0.66-1.25) mg/dL Estimated GFR 18.1 ML/MIN Glucose 860 H* (74-106) mg/dL POC Glucometer 588 H* (50 to 500) mg/dL Serum Osmolality (275-295) mOsmol/kg Lactic Acid (0.4-2.0) Calcium 7.8 L (8.4-10.2) mg/dL Phosphorus 11.0 H (2.5-4.5) mg/dL Magnesium 2.2 (1.6-2.3) mg/dL Total Bilirubin 0.40 (0.2-1.3) mg/dL AST 21 (17-59) U/L ALT 19 (0-50) U/L Alkaline Phosphatase 165 H (38-126) U/L Troponin I (0.000-0.034) ng/mL Serum Total Protein 6.3 (6.3-8.2) g/dL Albumin 3.5 (3.5-5.0) g/dL Triglycerides (30-150) mg/dL Cholesterol (50-200) mg/dL LDL Cholesterol (30-100) mg/dL HDL Cholesterol (40-60) mg/dL Heart Disease Risk Ratio Lipase (23-300) U/L Procalcitonin (0.030-0.080) ng/mL Urinalys Dipstick Clnc Urine Color (YELLOW) Urine Appearance (CLEAR) Urine pH (5-6) Ur Specific [place] (1.005-1.025) POC Urine Protein Conf (Negative) Urine Ketones (NEGATIVE) Urine Nitrite (NEGATIVE) Urine Bilirubin (NEGATIVE) Urine Urobilinogen (0-1) mg/dL Urine Leukocytes (NEGATIVE) Urine WBC (Auto) (0-5) /HPF Urine RBC (Auto) (0-2) /HPF U Epithel Cells (Auto) (FEW) /HPF Urine Bacteria (Auto) (NEGATIVE) /HPF Urine RBC (0-5) Tomas/ul Ur Culture Indicated? Urine Glucose (NEGATIVE) mg/dL Influenza Type A Ag (NEGATIVE) Influenza Type B Ag (NEGATIVE) RSV (PCR) (Negative) SARS-CoV-2 (PCR) (NEGATIVE) Slides for Path Review 07/23/22 07/23/22 07/23/22 Range/Units 13:40 10:14 10:04 WBC (4.0-10.5) x10^3/uL RBC (4.1-5.6) x10^6/uL Hgb (12.5-18.0) g/dL Hct (42-50) % MCV (78-100) fL MCH (26-32) pg MCHC (32-36) g/dL RDW (11.5-14.0) % Plt Count (150-450) x10^3/uL MPV (7.5-11.0) fL Gran % (36.0-66.0) % Immature Gran % (Auto) (0.00-0.4) % Nucleat RBC Rel Count (0.00-0.1) % Eos # (Auto) (0-0.5) x10^3/uL Immature Gran # (Auto) (0.00-0.03) x10^3u/L Absolute Lymphs (auto) (1.0-4.6) x10^3/uL Absolute Monos (auto) (0.0-1.3) x10^3/uL Absolute Nucleated RBC (0.00-0.01) x10^3u/L Lymphocytes % (24.0-44.0) % Monocytes % (0.0-12.0) % Eosinophils % (0.00-5.0) % Basophils % (0.0-0.4) % Absolute Granulocytes (1.4-6.9) x10^3/uL Basophils # (0-0.4) x10^3/uL PT (9.4-12.5) SECONDS INR (0.8-3.0) APTT (25.1-36.5) SECONDS pO2/FiO2 Ratio % VBG pH (7.32-7.42) VBG pCO2 at Pat Temp (42-55) mm/Hg VBG pO2 at Pat Temp (25-40) mm/Hg VBG HCO3 (22-28) meq/L VBG O2 Sat (Jalen) (95-100) VBG Base Excess (-2.0-2.0) VBG Hemoglobin VBG Carboxyhemoglobin (0.0-6.9) % T HGB POC Potassium (3.5-5.1) Sodium (137-145) mmol/L Potassium (3.5-5.1) mmol/L Chloride (98-107) mmol/L Carbon Dioxide (22-30) mmol/L Anion Gap (5-15) MEQ/L BUN (9-20) mg/dL Creatinine (0.66-1.25) mg/dL Estimated GFR ML/MIN Glucose (74-106) mg/dL POC Glucometer (50 to 500) mg/dL Serum Osmolality 348 H (275-295) mOsmol/kg Lactic Acid 3.1 H (0.4-2.0) Calcium (8.4-10.2) mg/dL Phosphorus (2.5-4.5) mg/dL Magnesium (1.6-2.3) mg/dL Total Bilirubin (0.2-1.3) mg/dL AST (17-59) U/L ALT (0-50) U/L Alkaline Phosphatase (38-126) U/L Troponin I 0.049 H* (0.000-0.034) ng/mL Serum Total Protein (6.3-8.2) g/dL Albumin (3.5-5.0) g/dL Triglycerides (30-150) mg/dL Cholesterol (50-200) mg/dL LDL Cholesterol (30-100) mg/dL HDL Cholesterol (40-60) mg/dL Heart Disease Risk Ratio Lipase (23-300) U/L Procalcitonin (0.030-0.080) ng/mL Urinalys Dipstick Clnc Urine Color (YELLOW) Urine Appearance (CLEAR) Urine pH (5-6) Ur Specific [place] (1.005-1.025) POC Urine Protein Conf (Negative) Urine Ketones (NEGATIVE) Urine Nitrite (NEGATIVE) Urine Bilirubin (NEGATIVE) Urine Urobilinogen (0-1) mg/dL Urine Leukocytes (NEGATIVE) Urine WBC (Auto) (0-5) /HPF Urine RBC (Auto) (0-2) /HPF U Epithel Cells (Auto) (FEW) /HPF Urine Bacteria (Auto) (NEGATIVE) /HPF Urine RBC (0-5) Tomas/ul Ur Culture Indicated? Urine Glucose (NEGATIVE) mg/dL Influenza Type A Ag (NEGATIVE) Influenza Type B Ag (NEGATIVE) RSV (PCR) (Negative) SARS-CoV-2 (PCR) (NEGATIVE) Slides for Path Review 07/23/22 07/23/22 07/23/22 Range/Units 10:00 09:52 08:26 WBC (4.0-10.5) x10^3/uL RBC (4.1-5.6) x10^6/uL Hgb (12.5-18.0) g/dL Hct (42-50) % MCV (78-100) fL MCH (26-32) pg MCHC (32-36) g/dL RDW (11.5-14.0) % Plt Count (150-450) x10^3/uL MPV (7.5-11.0) fL Gran % (36.0-66.0) % Immature Gran % (Auto) (0.00-0.4) % Nucleat RBC Rel Count (0.00-0.1) % Eos # (Auto) (0-0.5) x10^3/uL Immature Gran # (Auto) (0.00-0.03) x10^3u/L Absolute Lymphs (auto) (1.0-4.6) x10^3/uL Absolute Monos (auto) (0.0-1.3) x10^3/uL Absolute Nucleated RBC (0.00-0.01) x10^3u/L Lymphocytes % (24.0-44.0) % Monocytes % (0.0-12.0) % Eosinophils % (0.00-5.0) % Basophils % (0.0-0.4) % Absolute Granulocytes (1.4-6.9) x10^3/uL Basophils # (0-0.4) x10^3/uL PT (9.4-12.5) SECONDS INR (0.8-3.0) APTT (25.1-36.5) SECONDS pO2/FiO2 Ratio % VBG pH (7.32-7.42) VBG pCO2 at Pat Temp (42-55) mm/Hg VBG pO2 at Pat Temp (25-40) mm/Hg VBG HCO3 (22-28) meq/L VBG O2 Sat (Jalen) (95-100) VBG Base Excess (-2.0-2.0) VBG Hemoglobin VBG Carboxyhemoglobin (0.0-6.9) % T HGB POC Potassium (3.5-5.1) Sodium 124 L (137-145) mmol/L Potassium 5.9 H (3.5-5.1) mmol/L Chloride 75 L (98-107) mmol/L Carbon Dioxide < 5 L* (22-30) mmol/L Anion Gap (5-15) MEQ/L BUN 37 H (9-20) mg/dL Creatinine 3.90 H (0.66-1.25) mg/dL Estimated GFR 18.7 ML/MIN Glucose 1060 H* (74-106) mg/dL POC Glucometer (50 to 500) mg/dL Serum Osmolality (275-295) mOsmol/kg Lactic Acid (0.4-2.0) Calcium 7.8 L (8.4-10.2) mg/dL Phosphorus (2.5-4.5) mg/dL Magnesium (1.6-2.3) mg/dL Total Bilirubin 0.40 (0.2-1.3) mg/dL AST 25 (17-59) U/L ALT 20 (0-50) U/L Alkaline Phosphatase 167 H (38-126) U/L Troponin I 0.022 (0.000-0.034) ng/mL Serum Total Protein 6.5 (6.3-8.2) g/dL Albumin 3.5 (3.5-5.0) g/dL Triglycerides (30-150) mg/dL Cholesterol (50-200) mg/dL LDL Cholesterol (30-100) mg/dL HDL Cholesterol (40-60) mg/dL Heart Disease Risk Ratio Lipase (23-300) U/L Procalcitonin (0.030-0.080) ng/mL Urinalys Dipstick Clnc MAIN LAB Urine Color YELLOW (YELLOW) Urine Appearance CLEAR (CLEAR) Urine pH 5.5 (5-6) Ur Specific [place] 1.020 (1.005-1.025) POC Urine Protein Conf >=300 A (Negative) Urine Ketones >=160 A (NEGATIVE) Urine Nitrite NEGATIVE (NEGATIVE) Urine Bilirubin NEGATIVE (NEGATIVE) Urine Urobilinogen 0.2 (0-1) mg/dL Urine Leukocytes NEGATIVE (NEGATIVE) Urine WBC (Auto) NONE (0-5) /HPF Urine RBC (Auto) NONE (0-2) /HPF U Epithel Cells (Auto) NONE (FEW) /HPF Urine Bacteria (Auto) NONE (NEGATIVE) /HPF Urine RBC SMALL A (0-5) Tomas/ul Ur Culture Indicated? NO Urine Glucose 500 A (NEGATIVE) mg/dL Influenza Type A Ag (NEGATIVE) Influenza Type B Ag (NEGATIVE) RSV (PCR) (Negative) SARS-CoV-2 (PCR) (NEGATIVE) Slides for Path Review 07/23/22 07/23/22 07/23/22 Range/Units 08:02 08:00 07:45 WBC (4.0-10.5) x10^3/uL RBC (4.1-5.6) x10^6/uL Hgb (12.5-18.0) g/dL Hct (42-50) % MCV (78-100) fL MCH (26-32) pg MCHC (32-36) g/dL RDW (11.5-14.0) % Plt Count (150-450) x10^3/uL MPV (7.5-11.0) fL Gran % (36.0-66.0) % Immature Gran % (Auto) (0.00-0.4) % Nucleat RBC Rel Count (0.00-0.1) % Eos # (Auto) (0-0.5) x10^3/uL Immature Gran # (Auto) (0.00-0.03) x10^3u/L Absolute Lymphs (auto) (1.0-4.6) x10^3/uL Absolute Monos (auto) (0.0-1.3) x10^3/uL Absolute Nucleated RBC (0.00-0.01) x10^3u/L Lymphocytes % (24.0-44.0) % Monocytes % (0.0-12.0) % Eosinophils % (0.00-5.0) % Basophils % (0.0-0.4) % Absolute Granulocytes (1.4-6.9) x10^3/uL Basophils # (0-0.4) x10^3/uL PT (9.4-12.5) SECONDS INR (0.8-3.0) APTT (25.1-36.5) SECONDS pO2/FiO2 Ratio 21.0 % VBG pH 7.28 L (7.32-7.42) VBG pCO2 at Pat Temp 11 L* (42-55) mm/Hg VBG pO2 at Pat Temp 170 H (25-40) mm/Hg VBG HCO3 5.2 L* (22-28) meq/L VBG O2 Sat (Jalen) 99.4 (95-100) VBG Base Excess -19.0 L (-2.0-2.0) VBG Hemoglobin 10.9 VBG Carboxyhemoglobin 6.1 (0.0-6.9) % T HGB POC Potassium 5.7 H (3.5-5.1) Sodium 122 L (137-145) mmol/L Potassium 5.3 H (3.5-5.1) mmol/L Chloride 74 L (98-107) mmol/L Carbon Dioxide < 5 L* (22-30) mmol/L Anion Gap (5-15) MEQ/L BUN 36 H (9-20) mg/dL Creatinine 3.90 H (0.66-1.25) mg/dL Estimated GFR 18.7 ML/MIN Glucose 1041 H* (74-106) mg/dL POC Glucometer (50 to 500) mg/dL Serum Osmolality (275-295) mOsmol/kg Lactic Acid 8.6 H (0.4-2.0) Calcium 8.5 (8.4-10.2) mg/dL Phosphorus (2.5-4.5) mg/dL Magnesium 2.2 (1.6-2.3) mg/dL Total Bilirubin 0.50 (0.2-1.3) mg/dL AST 23 (17-59) U/L ALT 19 (0-50) U/L Alkaline Phosphatase 172 H (38-126) U/L Troponin I (0.000-0.034) ng/mL Serum Total Protein 6.9 (6.3-8.2) g/dL Albumin 3.7 (3.5-5.0) g/dL Triglycerides (30-150) mg/dL Cholesterol (50-200) mg/dL LDL Cholesterol (30-100) mg/dL HDL Cholesterol (40-60) mg/dL Heart Disease Risk Ratio Lipase 111 (23-300) U/L Procalcitonin (0.030-0.080) ng/mL Urinalys Dipstick Clnc Urine Color (YELLOW) Urine Appearance (CLEAR) Urine pH (5-6) Ur Specific [place] (1.005-1.025) POC Urine Protein Conf (Negative) Urine Ketones (NEGATIVE) Urine Nitrite (NEGATIVE) Urine Bilirubin (NEGATIVE) Urine Urobilinogen (0-1) mg/dL Urine Leukocytes (NEGATIVE) Urine WBC (Auto) (0-5) /HPF Urine RBC (Auto) (0-2) /HPF U Epithel Cells (Auto) (FEW) /HPF Urine Bacteria (Auto) (NEGATIVE) /HPF Urine RBC (0-5) Tomas/ul Ur Culture Indicated? Urine Glucose (NEGATIVE) mg/dL Influenza Type A Ag (NEGATIVE) Influenza Type B Ag (NEGATIVE) RSV (PCR) (Negative) SARS-CoV-2 (PCR) (NEGATIVE) Slides for Path Review 07/23/22 07/23/22 07/23/22 Range/Units 07:41 07:41 06:49 WBC (4.0-10.5) x10^3/uL RBC (4.1-5.6) x10^6/uL Hgb (12.5-18.0) g/dL Hct (42-50) % MCV (78-100) fL MCH (26-32) pg MCHC (32-36) g/dL RDW (11.5-14.0) % Plt Count (150-450) x10^3/uL MPV (7.5-11.0) fL Gran % (36.0-66.0) % Immature Gran % (Auto) (0.00-0.4) % Nucleat RBC Rel Count (0.00-0.1) % Eos # (Auto) (0-0.5) x10^3/uL Immature Gran # (Auto) (0.00-0.03) x10^3u/L Absolute Lymphs (auto) (1.0-4.6) x10^3/uL Absolute Monos (auto) (0.0-1.3) x10^3/uL Absolute Nucleated RBC (0.00-0.01) x10^3u/L Lymphocytes % (24.0-44.0) % Monocytes % (0.0-12.0) % Eosinophils % (0.00-5.0) % Basophils % (0.0-0.4) % Absolute Granulocytes (1.4-6.9) x10^3/uL Basophils # (0-0.4) x10^3/uL PT (9.4-12.5) SECONDS INR (0.8-3.0) APTT (25.1-36.5) SECONDS pO2/FiO2 Ratio % VBG pH (7.32-7.42) VBG pCO2 at Pat Temp (42-55) mm/Hg VBG pO2 at Pat Temp (25-40) mm/Hg VBG HCO3 (22-28) meq/L VBG O2 Sat (Jalen) (95-100) VBG Base Excess (-2.0-2.0) VBG Hemoglobin VBG Carboxyhemoglobin (0.0-6.9) % T HGB POC Potassium (3.5-5.1) Sodium (137-145) mmol/L Potassium (3.5-5.1) mmol/L Chloride (98-107) mmol/L Carbon Dioxide (22-30) mmol/L Anion Gap (5-15) MEQ/L BUN (9-20) mg/dL Creatinine (0.66-1.25) mg/dL Estimated GFR ML/MIN Glucose (74-106) mg/dL POC Glucometer (50 to 500) mg/dL Serum Osmolality (275-295) mOsmol/kg Lactic Acid (0.4-2.0) Calcium (8.4-10.2) mg/dL Phosphorus (2.5-4.5) mg/dL Magnesium (1.6-2.3) mg/dL Total Bilirubin (0.2-1.3) mg/dL AST (17-59) U/L ALT (0-50) U/L Alkaline Phosphatase (38-126) U/L Troponin I 0.023 (0.000-0.034) ng/mL Serum Total Protein (6.3-8.2) g/dL Albumin (3.5-5.0) g/dL Triglycerides (30-150) mg/dL Cholesterol (50-200) mg/dL LDL Cholesterol (30-100) mg/dL HDL Cholesterol (40-60) mg/dL Heart Disease Risk Ratio Lipase (23-300) U/L Procalcitonin 0.235 H (0.030-0.080) ng/mL Urinalys Dipstick Clnc Urine Color (YELLOW) Urine Appearance (CLEAR) Urine pH (5-6) Ur Specific [place] (1.005-1.025) POC Urine Protein Conf (Negative) Urine Ketones (NEGATIVE) Urine Nitrite (NEGATIVE) Urine Bilirubin (NEGATIVE) Urine Urobilinogen (0-1) mg/dL Urine Leukocytes (NEGATIVE) Urine WBC (Auto) (0-5) /HPF Urine RBC (Auto) (0-2) /HPF U Epithel Cells (Auto) (FEW) /HPF Urine Bacteria (Auto) (NEGATIVE) /HPF Urine RBC (0-5) Tomas/ul Ur Culture Indicated? Urine Glucose (NEGATIVE) mg/dL Influenza Type A Ag NEGATIVE (NEGATIVE) Influenza Type B Ag NEGATIVE (NEGATIVE) RSV (PCR) POSITIVE (Negative) SARS-CoV-2 (PCR) NEGATIVE (NEGATIVE) Slides for Path Review 07/23/22 Range/Units 06:27 WBC 14.1 H (4.0-10.5) x10^3/uL RBC 3.54 L (4.1-5.6) x10^6/uL Hgb 10.1 L (12.5-18.0) g/dL Hct 32.9 L (42-50) % MCV 92.9 (78-100) fL MCH 28.5 (26-32) pg MCHC 30.7 L (32-36) g/dL RDW 13.5 (11.5-14.0) % Plt Count 511 H (150-450) x10^3/uL MPV 9.0 (7.5-11.0) fL Gran % 77.4 H (36.0-66.0) % Immature Gran % (Auto) 2.5 H (0.00-0.4) % Nucleat RBC Rel Count 0.0 (0.00-0.1) % Eos # (Auto) 0.05 (0-0.5) x10^3/uL Immature Gran # (Auto) 0.35 H (0.00-0.03) x10^3u/L Absolute Lymphs (auto) 1.19 (1.0-4.6) x10^3/uL Absolute Monos (auto) 1.52 H (0.0-1.3) x10^3/uL Absolute Nucleated RBC 0.00 (0.00-0.01) x10^3u/L Lymphocytes % 8.4 L (24.0-44.0) % Monocytes % 10.7 (0.0-12.0) % Eosinophils % 0.4 (0.00-5.0) % Basophils % 0.6 (0.0-0.4) % Absolute Granulocytes 10.95 H (1.4-6.9) x10^3/uL Basophils # 0.08 (0-0.4) x10^3/uL PT (9.4-12.5) SECONDS INR (0.8-3.0) APTT (25.1-36.5) SECONDS pO2/FiO2 Ratio % VBG pH (7.32-7.42) VBG pCO2 at Pat Temp (42-55) mm/Hg VBG pO2 at Pat Temp (25-40) mm/Hg VBG HCO3 (22-28) meq/L VBG O2 Sat (Jalen) (95-100) VBG Base Excess (-2.0-2.0) VBG Hemoglobin VBG Carboxyhemoglobin (0.0-6.9) % T HGB POC Potassium (3.5-5.1) Sodium (137-145) mmol/L Potassium (3.5-5.1) mmol/L Chloride (98-107) mmol/L Carbon Dioxide (22-30) mmol/L Anion Gap (5-15) MEQ/L BUN (9-20) mg/dL Creatinine (0.66-1.25) mg/dL Estimated GFR ML/MIN Glucose (74-106) mg/dL POC Glucometer (50 to 500) mg/dL Serum Osmolality (275-295) mOsmol/kg Lactic Acid (0.4-2.0) Calcium (8.4-10.2) mg/dL Phosphorus (2.5-4.5) mg/dL Magnesium (1.6-2.3) mg/dL Total Bilirubin (0.2-1.3) mg/dL AST (17-59) U/L ALT (0-50) U/L Alkaline Phosphatase (38-126) U/L Troponin I (0.000-0.034) ng/mL Serum Total Protein (6.3-8.2) g/dL Albumin (3.5-5.0) g/dL Triglycerides (30-150) mg/dL Cholesterol (50-200) mg/dL LDL Cholesterol (30-100) mg/dL HDL Cholesterol (40-60) mg/dL Heart Disease Risk Ratio Lipase (23-300) U/L Procalcitonin (0.030-0.080) ng/mL Urinalys Dipstick Clnc Urine Color (YELLOW) Urine Appearance (CLEAR) Urine pH (5-6) Ur Specific [place] (1.005-1.025) POC Urine Protein Conf (Negative) Urine Ketones (NEGATIVE) Urine Nitrite (NEGATIVE) Urine Bilirubin (NEGATIVE) Urine Urobilinogen (0-1) mg/dL Urine Leukocytes (NEGATIVE) Urine WBC (Auto) (0-5) /HPF Urine RBC (Auto) (0-2) /HPF U Epithel Cells (Auto) (FEW) /HPF Urine Bacteria (Auto) (NEGATIVE) /HPF Urine RBC (0-5) Tomas/ul Ur Culture Indicated? Urine Glucose (NEGATIVE) mg/dL Influenza Type A Ag (NEGATIVE) Influenza Type B Ag (NEGATIVE) RSV (PCR) (Negative) SARS-CoV-2 (PCR) (NEGATIVE) Slides for Path Review YES - Progress Discussed with : Hasmukh (Dr. Maxwell advises transfer.) Counseled pt/family regarding: lab results, diagnosis, rad results <MANDI DUEÑAS - Last Filed: 07/23/22 18:52> - Progress Progress: unchanged <YUE OLIVER - Last Filed: 07/28/22 10:45> - Progress Progress Note: Elevated troponin abnormal EKG. Troponin reviewed by Dr. Maradiaga who feels patient is not having a STEMI. He advised heparin drip and aspirin. 12/05/22 18:53 (MANDI DUEÑAS) 07/23/22 07:06 Work-up is pending, care is transferred to Dr. Dueñas at shift change (YUE OLIVER) - Departure Critical Care Time: No <MANDI DUEÑAS - Last Filed: 07/23/22 18:52> <YUE OLIVER - Last Filed: 07/28/22 10:45> - Departure Clinical Impression: DKA (diabetic ketoacidosis), Fecal debris, L5 spondylolysis, RSV infection, Proteinuria, Ketonuria, Chronic renal insufficiency Condition: Stable
[2022-07-23 07:28] LABS: INFLUENZA A NEGATIVE (NEGATIVE); INFLUENZA B NEGATIVE (NEGATIVE); SARS-CoV-2 Xpert Express NEGATIVE (NEGATIVE)
[2022-07-23 07:30] LABS: RESPIRATORY SYNCTIAL VIRUS POSITIVE (Negative)
[2022-07-23] MEDS ORDERED: Zofran 4 MG/2 ML VIAL ONE ×3 (07:37→21:30)
[2022-07-23] MEDS ORDERED: Sodium Chloride 0.9% 1000 ML 2,000 ML ONE (07:37)
[2022-07-23 08:00] LABS: VBG CARBOXYHEMOGLOBIN 6.1 % T HGB (0.0-6.9); VBG HCO3- 5.2 meq/L (22-28); VBG HEMOGLOBIN 10.9; VBG O2 SATURATION 99.4 (95-100); VBG POTASSIUM 5.7 (3.5-5.1); VBG pH 7.28 (7.32-7.42)
[2022-07-23 08:01] LABS: Absolute Neutrophil Ct (ANC) 10.95 x10^3/uL (1.4-6.9); Basophil (Absolute #) 0.08 x10^3/uL (0-0.4); Eosinophil % 0.4 % (0.00-5.0); Eosinophil (Absolute #) 0.05 x10^3/uL (0-0.5); Hematocrit 32.9 % (42-50); Hemoglobin 10.1 g/dL (12.5-18.0); Lymphocyte (Absolute #) 1.19 x10^3/uL (1.0-4.6); Lymphocytes % 8.4 % (24.0-44.0); Mean Cell Volume 92.9 fL (78-100); Mean Corpuscular Hemoglobin 28.5 pg (26-32); Mean Corpuscular Hgb Concent. 30.7 g/dL (32-36); Monocyte (Absolute #) 1.52 x10^3/uL (0.0-1.3); Monocytes % 10.7 % (0.0-12.0); Neutrophil % 77.4 % (36.0-66.0); Platelet Count 511 x10^3/uL (150-450); Red Blood Count 3.54 x10^6/uL (4.1-5.6); Red Cell Distribution Width 13.5 % (11.5-14.0); White Blood Count 14.1 x10^3/uL (4.0-10.5)
[2022-07-23 08:16] LABS: ALBUMIN 3.7 g/dL (3.5-5.0); ALKALINE PHOSPHATASE 172 U/L (38-126); BLOOD UREA NITROGEN 36 mg/dL (9-20); CHLORIDE 74 mmol/L (98-107); Calcium 8.5 mg/dL (8.4-10.2); EST GLOMERULAR FILTRATION RATE 18.7 ML/MIN; LIPASE 111 U/L (23-300); MAGNESIUM 2.2 mg/dL (1.6-2.3); Potassium 5.3 mmol/L (3.5-5.1); SGOT/AST 23 U/L (17-59); SGPT/ALT 19 U/L (0-50); SODIUM 122 mmol/L (137-145); Total Protein 6.9 g/dL (6.3-8.2)
[2022-07-23 08:31] LABS: Glucose 1041 mg/dL (74-106)
[2022-07-23 08:32] LABS: Carbon Dioxide < 5 mmol/L (22-30)
[2022-07-23 08:33] LABS: Appearance CLEAR (CLEAR); Bilirubin NEGATIVE (NEGATIVE); Glucose 500 mg/dL (NEGATIVE); Ketones >=160 (NEGATIVE); RBC SMALL Ery/ul (0-5)
[2022-07-23 08:34] LABS: Dipstick done @ ? MAIN LAB; Nitrite NEGATIVE (NEGATIVE); Ph 5.5 (5-6); Protein,Urine Dip >=300 (Negative); Urine Cultured Indicated? NO; Urobilinogen 0.2 mg/dL (0-1)
--- NOTE | 2022-07-23 08:48 | XRAY ---
Indication: Abdomen pain, nausea, and vomiting. Multiple contiguous axial images obtained through the abdomen and pelvis without contrast. Comparison: June 28, 2022 Lung bases lung bases are now clear. Heart not enlarged. New small hiatal hernia. Noncontrasted stomach and bowel loops appear nonobstructed with normal appendix. Again mild diffuse scattered colonic fecal debris throughout, less than before. No free fluid/air. Remaining liver, gallbladder, pancreas, spleen, adrenal glands, kidneys, ureters, and bladder are unremarkable for noncontrast exam. Again minimal aortoiliac calcifications without AAA. Osseous structures intact again with bilateral L5 spondylolysis without listhesis. Impression: 1. New small hiatal hernia. 2. Again mild diffuse fecal stasis and L5 spondylolysis without listhesis. 3. Remaining CT abdomen/pelvis without contrast exam is negative. Comment: Preliminary interpretation made by C. No critical discrepancy.
[2022-07-23 09:20] LABS: Slide Review 1 YES
[2022-07-23 10:45] LABS: ALBUMIN 3.5 g/dL (3.5-5.0); ALKALINE PHOSPHATASE 167 U/L (38-126); BLOOD UREA NITROGEN 37 mg/dL (9-20); CHLORIDE 75 mmol/L (98-107); Calcium 7.8 mg/dL (8.4-10.2); EST GLOMERULAR FILTRATION RATE 18.7 ML/MIN; Potassium 5.9 mmol/L (3.5-5.1); SGOT/AST 25 U/L (17-59); SGPT/ALT 20 U/L (0-50); SODIUM 124 mmol/L (137-145); Total Protein 6.5 g/dL (6.3-8.2)
[2022-07-23 10:57] LABS: Carbon Dioxide < 5 mmol/L (22-30); Glucose 1060 mg/dL (74-106)
[2022-07-23] MEDS: HUMULIN R 100 UNIT in Sodium Chloride 0.9% 100 ML IV PRN (10:58)
[2022-07-23 14:21] LABS: VBG BASE EXCESS -14.9 (-2.0-2.0); VBG CARBOXYHEMOGLOBIN 2.2 % T HGB (0.0-6.9); VBG HCO3- 8.5 meq/L (22-28); VBG HEMOGLOBIN 9.6; VBG O2 SATURATION 99.5 (95-100); VBG POTASSIUM 4.6 (3.5-5.1); VBG pH 7.36 (7.32-7.42)
[2022-07-23 14:42] LABS: ALBUMIN 3.5 g/dL (3.5-5.0); ALKALINE PHOSPHATASE 165 U/L (38-126); BLOOD UREA NITROGEN 40 mg/dL (9-20); CHLORIDE 80 mmol/L (98-107); Calcium 7.8 mg/dL (8.4-10.2); Creatinine 1 4.01 mg/dL (0.66-1.25); EST GLOMERULAR FILTRATION RATE 18.1 ML/MIN; MAGNESIUM 2.2 mg/dL (1.6-2.3); Potassium 5.1 mmol/L (3.5-5.1); SGOT/AST 21 U/L (17-59); SGPT/ALT 19 U/L (0-50); SODIUM 127 mmol/L (137-145); Total Protein 6.3 g/dL (6.3-8.2)
[2022-07-23 15:19] LABS: Carbon Dioxide < 5 mmol/L (22-30); Glucose 860 mg/dL (74-106)
[2022-07-23] MEDS: Lactated Ringers 1,000 ML IV SCH (17:39)
[2022-07-23] MEDS ORDERED: BABY ASPIRIN 81 MG CHEW PO ONE (17:49)
[2022-07-23 18:31] LABS: INR 1.05 (0.8-3.0); PROTIME 11.1 SECONDS (9.4-12.5); PTT 22.4 SECONDS (25.1-36.5)
[2022-07-23] MEDS ORDERED: HEPARIN 5000 UNITS/0.5 ML (HIGH RISK MED) IV STA (18:57)
[2022-07-23] MEDS ORDERED: HEPARIN 5000 UNITS/0.5 ML (HIGH RISK MED) ONE (18:59)
[2022-07-23] MEDS ORDERED: Heparin 25,000 units/D5W: USE ORDER SET PROTO 25,000 UNITS/250 ML BAG IV SCH (19:00)
[2022-07-23 19:24] LABS: ALBUMIN 3.4 g/dL (3.5-5.0); ANION GAP 28.7 MEQ/L (5-15); BILIRUBIN,TOTAL 0.4 mg/dL (0.2-1.3); Creatinine 1 3.97 mg/dL (0.66-1.25); EST GLOMERULAR FILTRATION RATE 18.3 ML/MIN; Potassium 4.2 mmol/L (3.5-5.1); Total Protein 6.4 g/dL (6.3-8.2)
[2022-07-23] MEDS ORDERED: NITRO-BID 2% UD PACKETS TOP ONE (20:46)
[2022-07-23] MEDS ORDERED: NITRO-BID 2% UD PACKETS ONE (20:57)
[2022-07-23] MEDS ORDERED: D5W/0.45NS W/ 20mEq KCl 1000 ML 1,000 ML IV ONE (21:00)
[2022-07-23] MEDS: DEXTROSE 5% IV SCH (21:26)
[2022-07-23] MEDS: NACL IV SCH (21:26)
[2022-07-23] MEDS: POTASSIUM CHLORIDE IV SCH (21:26)
[2022-07-23] MEDS ORDERED: TYLENOL 325 MG PO PRN (22:00)
[2022-07-23] MEDS ORDERED: Senokot-S Tablet PO PRN (22:00)
[2022-07-23] MEDS ORDERED: MAALOX ES 30 ML UNIT DOSE PO PRN (22:00)
[2022-07-23] MEDS ORDERED: MILK OF MAGNESIA 30 ML PO PRN (22:00)
[2022-07-23 22:47] LABS: VBG BASE EXCESS -5.1 (-2.0-2.0); VBG HCO3- 17.5 meq/L (22-28); VBG HEMOGLOBIN 9.2; VBG O2 SATURATION 99.3 (95-100); VBG POTASSIUM 3.5 (3.5-5.1); VBG pH 7.47 (7.32-7.42)
[2022-07-23] MEDS: NITRO-BID 2% UD PACKETS TOP SCH (23:30)
[2022-07-24 03:24] LABS: Absolute Neutrophil Ct (ANC) 11.33 x10^3/uL (1.4-6.9); Basophil (Absolute #) 0.05 x10^3/uL (0-0.4); Eosinophil % 0.9 % (0.00-5.0); Eosinophil (Absolute #) 0.13 x10^3/uL (0-0.5); Hematocrit 27.7 % (42-50); Hemoglobin 8.9 g/dL (12.5-18.0); Lymphocyte (Absolute #) 1.35 x10^3/uL (1.0-4.6); Lymphocytes % 9.1 % (24.0-44.0); Mean Cell Volume 88.2 fL (78-100); Mean Corpuscular Hemoglobin 28.3 pg (26-32); Mean Corpuscular Hgb Concent. 32.1 g/dL (32-36); Mean Platelet Volume 8.3 fL (7.5-11.0); Monocyte (Absolute #) 1.75 x10^3/uL (0.0-1.3); Monocytes % 11.8 % (0.0-12.0); Neutrophil % 76.7 % (36.0-66.0); Platelet Count 463 x10^3/uL (150-450); Red Blood Count 3.14 x10^6/uL (4.1-5.6); Red Cell Distribution Width 13.6 % (11.5-14.0); White Blood Count 14.8 x10^3/uL (4.0-10.5)
[2022-07-24 03:40] LABS: ANION GAP 14.2 MEQ/L (5-15); Calcium 7.6 mg/dL (8.4-10.2); Creatinine 1 3.27 mg/dL (0.66-1.25); EST GLOMERULAR FILTRATION RATE 22.9 ML/MIN; Potassium 3.6 mmol/L (3.5-5.1); Risk Ratio 7.2
[2022-07-24] MEDS: Lactated Ringers 1,000 ML IV SCH (03:46)
[2022-07-24 03:53] LABS: TROPONIN 0.51 ng/mL (0.000-0.034)
[2022-07-24] MEDS ORDERED: D5W/0.45NS W/ 20mEq KCl 1000 ML 1,000 ML IV ONE (04:20)
[2022-07-24] MEDS: D5W/0.45NS W/ 20mEq KCl 1000 ML 1,000 ML IV SCH ×2 (04:25→11:24)
[2022-07-24] MEDS: DEXTROSE 5% IV SCH (05:02)
[2022-07-24] MEDS: NACL IV SCH (05:02)
[2022-07-24] MEDS: POTASSIUM CHLORIDE IV SCH (05:02)
[2022-07-24] MEDS: Zofran 4 MG/2 ML VIAL IV PRN ×4 (05:34→23:30)
[2022-07-24 05:57] LABS: Slide Review 1 YES
[2022-07-24] MEDS: NITRO-BID 2% UD PACKETS TOP SCH ×3 (06:22→21:34)
[2022-07-24 07:02] LABS: ANION GAP 18.1 MEQ/L (5-15); Calcium 7.2 mg/dL (8.4-10.2); Creatinine 1 3.25 mg/dL (0.66-1.25); EST GLOMERULAR FILTRATION RATE 23.1 ML/MIN; Potassium 3.5 mmol/L (3.5-5.1)
[2022-07-24] MEDS: HUMULIN R 100 UNIT in Sodium Chloride 0.9% 100 ML IV PRN (07:43)
[2022-07-24] MEDS ORDERED: ZOFRAN ODT 4 MG PO PRN (09:15)
[2022-07-24] MEDS: Ecotrin 325 MG PO SCH ×2 (09:21→12:45)
[2022-07-24] MEDS: Coreg PO SCH ×4 (09:21→21:56)
[2022-07-24] MEDS: Nicoderm CQ 21 MG TOP SCH (09:24)
[2022-07-24] MEDS: Heparin 25,000 units/D5W: USE ORDER SET PROTO 25,000 UNITS/250 ML BAG IV SCH ×2 (10:25→18:41)
[2022-07-24 11:12] LABS: ANION GAP 14.2 MEQ/L (5-15); Calcium 7.4 mg/dL (8.4-10.2); Creatinine 1 3.04 mg/dL (0.66-1.25); EST GLOMERULAR FILTRATION RATE 24.9 ML/MIN; Potassium 3.7 mmol/L (3.5-5.1)
[2022-07-24] MEDS: HUMALOG SQ PRN ×2 (11:19→21:34)
[2022-07-24 15:30] LABS: ANION GAP 10.7 MEQ/L (5-15); Calcium 7.5 mg/dL (8.4-10.2); Creatinine 1 2.92 mg/dL (0.66-1.25); EST GLOMERULAR FILTRATION RATE 26.1 ML/MIN; Potassium 3.5 mmol/L (3.5-5.1)
[2022-07-24] MEDS ORDERED: Zithromax 500 MG/ 250 ML NaCl Premix 500 MG/250 ML IVPB IV SCH (18:02)
[2022-07-24] MEDS ORDERED: Zithromax 500 MG/ 250 ML NaCl Premix 500 MG/250 ML IVPB IV ONE (18:19)
--- NOTE | 2022-07-24 18:21 | PCM.HP ---
History of Present Illness - Chief Complaint Chief Complaint: DKA, NSTEMI History of Present Illness: is a 36 year old male pt of mine from [facility], seen this morning approx 0815 by me. He has PMHx DM I poorly controlled, chronic renal failure stage IV, TOB use, and hx drug abuse (denies current use). He came in to ER in DKA and found to have NSTEMI. Cardiology was contacted and pt was going to be transferred but there were no beds; pt was in our ER for at least 14 hours. He was finally admitted to our ICU. He was having chest pain, abd pain (05/28) and vomiting (vom x 1 week). Blood sugar was 1041 in ER. Pt tells me he's been sick since he left after his last admission, including cough. RSV positive. He was on an insulin drip overnight. Troponin was elevated to 0.266, then 0.513 and cardiology was contacted again. Procalcitonin was 0.235. His WBC were 14.8, with 76.7 % granulocytes. LA initially 8.6, but down to 3.1 this morning. CO3 was <5 at arrival to ER; up to 27 this morning. This morning he is still quite nauseated and only able to answer yes or no questions. He has insisted on having his chewing tobacco, but shakes his head "yes" that I can give him a nicotine patch instead. - Review of Systems Constitutional: No Fever Respiratory: Cough Cardiac: Chest Pain Abdominal/Gastrointestinal: Abdominal Pain, Nausea, Vomiting, Constipation All Other Systems: Unable due to condition (very nauseated) Medications & Allergies Home Medications: Home Medication List Carvedilol [Coreg ] 6.25 mg PO BID 06/04/22 [History Confirmed 07/23/22] Ondansetron ODT 4 MG [Zofran Odt 4 mg] 4 mg PO Q6H PRN PRN #10 tablet 06/14/22 [Rx Confirmed 07/23/22] Clonidine HCl Tts-2 Patch [Catapres TTS-2 PATCH] 0.2 mg TOP Q7D #3 patch 07/01/22 [Rx Confirmed 07/23/22] Insulin Lispro [Admelog Solostar] 10 - 15 unit SQ TIDWMEALS #3 07/01/22 [Rx Confirmed 07/23/22] Allergies/Adverse Reactions: Allergies Allergy/AdvReac Type Severity Reaction Status Date / Time No Known Drug Allergies Allergy Verified 07/15/22 15:53 - Past Medical History Past Medical History: Yes Neurological History: No Pertinent History ENT History: No Pertinent History Cardiac History: Hypertension Respiratory History: No Pertinent History Endocrine Medical History: Diabetes Type I Musculoskelatal History: No Pertinent History GI Medical History: No Pertinent History History: No Pertinent History Pyscho-Social History: Anxiety, Depression Male Reproductive Disorders: No Pertinent History Comment: DKA - Past Surgical History Past Surgical History: No Neuro Surgical History: No Pertinent History Cardiac History: No Pertinent History Respiratory Surgery: No Pertinent History GI Surgical History: No Pertinent History Genitourinary Surgical Hx: No Pertinent History Musculskeletal Surgical Hx: No Pertinent History Male Surgical History: No Pertinent History Other Surgical History: . - Social History Smoking Status: Never smoker Exposure to second hand smoke: No Alcohol: None Drug Use: none Significant Family History: no pertinent family hx - Physical Exam Vital Signs: Vital Signs - 24 hr Temp Pulse Resp BP Pulse Ox 07/24/22 16:00 98.1 F 86 16 154/87 98 07/24/22 11:39 98.6 F 86 18 145/76 94 L 07/24/22 11:28 88 07/24/22 07:57 98.4 F 88 19 132/68 93 L 07/24/22 07:38 83 07/24/22 04:00 97.9 F 83 20 136/75 95 07/24/22 00:01 106 H 07/24/22 00:00 97.7 F 106 H 17 138/83 96 07/23/22 22:24 97.8 F 96 H 18 183/93 98 07/23/22 21:00 96 H 30 H 134/72 98 07/23/22 19:28 110 H 13 111/64 General Appearance: mild distress, alert Neurologic Exam: cooperative, other (limited affect) Eye Exam: eyes nml inspection Ears, Nose, Throat Exam: moist mucous membranes Neck Exam: normal inspection, non-tender, No lymphadenopathy, No thyromegaly Respiratory Exam: normal breath sounds, lungs clear, No crackles/rales, No rhonchi, No wheezing Cardiovascular Exam: regular rate/rhythm, normal heart sounds, No murmur Gastrointestinal/Abdomen Exam: soft, normal bowel sounds, No tenderness, No distention, No mass, No guarding, No rebound Back Exam: normal inspection, No rash Extremity Exam: normal inspection, No pedal edema, No swelling Skin Exam: normal color, warm, dry, No rash Results - Labs Lab/Micro Results: Lab Results-Last 24 Hours 07/23/22 07/23/22 07/23/22 Range/Units 18:15 18:15 18:30 WBC (4.0-10.5) x10^3/uL RBC (4.1-5.6) x10^6/uL Hgb (12.5-18.0) g/dL Hct (42-50) % MCV (78-100) fL MCH (26-32) pg MCHC (32-36) g/dL RDW (11.5-14.0) % Plt Count (150-450) x10^3/uL MPV (7.5-11.0) fL Gran % (36.0-66.0) % Immature Gran % (Auto) (0.00-0.4) % Nucleat RBC Rel Count (0.00-0.1) % Eos # (Auto) (0-0.5) x10^3/uL Immature Gran # (Auto) (0.00-0.03) x10^3u/L Absolute Lymphs (auto) (1.0-4.6) x10^3/uL Absolute Monos (auto) (0.0-1.3) x10^3/uL Absolute Nucleated RBC (0.00-0.01) x10^3u/L Lymphocytes % (24.0-44.0) % Monocytes % (0.0-12.0) % Eosinophils % (0.00-5.0) % Basophils % (0.0-0.4) % Absolute Granulocytes (1.4-6.9) x10^3/uL Basophils # (0-0.4) x10^3/uL PT 11.1 (9.4-12.5) SECONDS INR 1.05 (0.8-3.0) APTT 22.4 L (25.1-36.5) SECONDS pO2/FiO2 Ratio % VBG pH (7.32-7.42) VBG pCO2 at Pat Temp (42-55) mm/Hg VBG pO2 at Pat Temp (25-40) mm/Hg VBG HCO3 (22-28) meq/L VBG O2 Sat (Jalen) (95-100) VBG Base Excess (-2.0-2.0) VBG Hemoglobin VBG Carboxyhemoglobin (0.0-6.9) % T HGB POC Potassium (3.5-5.1) Sodium 132 L (137-145) mmol/L Potassium 4.2 (3.5-5.1) mmol/L Chloride 87 L (98-107) mmol/L Carbon Dioxide 21 L (22-30) mmol/L Anion Gap 28.7 H (5-15) MEQ/L BUN 45 H (9-20) mg/dL Creatinine 3.97 H (0.66-1.25) mg/dL Estimated GFR 18.3 ML/MIN Glucose 299 H (74-106) mg/dL POC Glucometer 249 H (74 to 106) mg/dL Hemoglobin A1c (4.5-6.0) % Calcium 8.0 L (8.4-10.2) mg/dL Total Bilirubin 0.40 (0.2-1.3) mg/dL AST 22 (17-59) U/L ALT 19 (0-50) U/L Alkaline Phosphatase 153 H (38-126) U/L Troponin I (0.000-0.034) ng/mL Serum Total Protein 6.4 (6.3-8.2) g/dL Albumin 3.4 L (3.5-5.0) g/dL Triglycerides (30-150) mg/dL Cholesterol (50-200) mg/dL LDL Cholesterol (30-100) mg/dL HDL Cholesterol (40-60) mg/dL Heart Disease Risk Ratio Slides for Path Review 07/23/22 07/23/22 07/23/22 Range/Units 19:24 21:28 22:30 WBC (4.0-10.5) x10^3/uL RBC (4.1-5.6) x10^6/uL Hgb (12.5-18.0) g/dL Hct (42-50) % MCV (78-100) fL MCH (26-32) pg MCHC (32-36) g/dL RDW (11.5-14.0) % Plt Count (150-450) x10^3/uL MPV (7.5-11.0) fL Gran % (36.0-66.0) % Immature Gran % (Auto) (0.00-0.4) % Nucleat RBC Rel Count (0.00-0.1) % Eos # (Auto) (0-0.5) x10^3/uL Immature Gran # (Auto) (0.00-0.03) x10^3u/L Absolute Lymphs (auto) (1.0-4.6) x10^3/uL Absolute Monos (auto) (0.0-1.3) x10^3/uL Absolute Nucleated RBC (0.00-0.01) x10^3u/L Lymphocytes % (24.0-44.0) % Monocytes % (0.0-12.0) % Eosinophils % (0.00-5.0) % Basophils % (0.0-0.4) % Absolute Granulocytes (1.4-6.9) x10^3/uL Basophils # (0-0.4) x10^3/uL PT (9.4-12.5) SECONDS INR (0.8-3.0) APTT (25.1-36.5) SECONDS pO2/FiO2 Ratio % VBG pH (7.32-7.42) VBG pCO2 at Pat Temp (42-55) mm/Hg VBG pO2 at Pat Temp (25-40) mm/Hg VBG HCO3 (22-28) meq/L VBG O2 Sat (Jalen) (95-100) VBG Base Excess (-2.0-2.0) VBG Hemoglobin VBG Carboxyhemoglobin (0.0-6.9) % T HGB POC Potassium (3.5-5.1) Sodium (137-145) mmol/L Potassium (3.5-5.1) mmol/L Chloride (98-107) mmol/L Carbon Dioxide (22-30) mmol/L Anion Gap (5-15) MEQ/L BUN (9-20) mg/dL Creatinine (0.66-1.25) mg/dL Estimated GFR ML/MIN Glucose (74-106) mg/dL POC Glucometer 239 H 320 H (74 to 106) mg/dL Hemoglobin A1c (4.5-6.0) % Calcium (8.4-10.2) mg/dL Total Bilirubin (0.2-1.3) mg/dL AST (17-59) U/L ALT (0-50) U/L Alkaline Phosphatase (38-126) U/L Troponin I 0.513 H* (0.000-0.034) ng/mL Serum Total Protein (6.3-8.2) g/dL Albumin (3.5-5.0) g/dL Triglycerides (30-150) mg/dL Cholesterol (50-200) mg/dL LDL Cholesterol (30-100) mg/dL HDL Cholesterol (40-60) mg/dL Heart Disease Risk Ratio Slides for Path Review 07/23/22 07/23/22 07/23/22 Range/Units 22:30 22:40 22:42 WBC (4.0-10.5) x10^3/uL RBC (4.1-5.6) x10^6/uL Hgb (12.5-18.0) g/dL Hct (42-50) % MCV (78-100) fL MCH (26-32) pg MCHC (32-36) g/dL RDW (11.5-14.0) % Plt Count (150-450) x10^3/uL MPV (7.5-11.0) fL Gran % (36.0-66.0) % Immature Gran % (Auto) (0.00-0.4) % Nucleat RBC Rel Count (0.00-0.1) % Eos # (Auto) (0-0.5) x10^3/uL Immature Gran # (Auto) (0.00-0.03) x10^3u/L Absolute Lymphs (auto) (1.0-4.6) x10^3/uL Absolute Monos (auto) (0.0-1.3) x10^3/uL Absolute Nucleated RBC (0.00-0.01) x10^3u/L Lymphocytes % (24.0-44.0) % Monocytes % (0.0-12.0) % Eosinophils % (0.00-5.0) % Basophils % (0.0-0.4) % Absolute Granulocytes (1.4-6.9) x10^3/uL Basophils # (0-0.4) x10^3/uL PT (9.4-12.5) SECONDS INR (0.8-3.0) APTT 34.7 (25.1-36.5) SECONDS pO2/FiO2 Ratio 21.0 % VBG pH 7.47 H (7.32-7.42) VBG pCO2 at Pat Temp 24 L (42-55) mm/Hg VBG pO2 at Pat Temp 135 H (25-40) mm/Hg VBG HCO3 17.5 L (22-28) meq/L VBG O2 Sat (Jalen) 99.3 (95-100) VBG Base Excess -5.1 L (-2.0-2.0) VBG Hemoglobin 9.2 VBG Carboxyhemoglobin 2.0 (0.0-6.9) % T HGB POC Potassium 3.5 (3.5-5.1) Sodium (137-145) mmol/L Potassium (3.5-5.1) mmol/L Chloride (98-107) mmol/L Carbon Dioxide (22-30) mmol/L Anion Gap (5-15) MEQ/L BUN (9-20) mg/dL Creatinine (0.66-1.25) mg/dL Estimated GFR ML/MIN Glucose (74-106) mg/dL POC Glucometer 335 H (74 to 106) mg/dL Hemoglobin A1c (4.5-6.0) % Calcium (8.4-10.2) mg/dL Total Bilirubin (0.2-1.3) mg/dL AST (17-59) U/L ALT (0-50) U/L Alkaline Phosphatase (38-126) U/L Troponin I (0.000-0.034) ng/mL Serum Total Protein (6.3-8.2) g/dL Albumin (3.5-5.0) g/dL Triglycerides (30-150) mg/dL Cholesterol (50-200) mg/dL LDL Cholesterol (30-100) mg/dL HDL Cholesterol (40-60) mg/dL Heart Disease Risk Ratio Slides for Path Review 07/23/22 07/24/22 07/24/22 Range/Units 23:27 00:21 01:22 WBC (4.0-10.5) x10^3/uL RBC (4.1-5.6) x10^6/uL Hgb (12.5-18.0) g/dL Hct (42-50) % MCV (78-100) fL MCH (26-32) pg MCHC (32-36) g/dL RDW (11.5-14.0) % Plt Count (150-450) x10^3/uL MPV (7.5-11.0) fL Gran % (36.0-66.0) % Immature Gran % (Auto) (0.00-0.4) % Nucleat RBC Rel Count (0.00-0.1) % Eos # (Auto) (0-0.5) x10^3/uL Immature Gran # (Auto) (0.00-0.03) x10^3u/L Absolute Lymphs (auto) (1.0-4.6) x10^3/uL Absolute Monos (auto) (0.0-1.3) x10^3/uL Absolute Nucleated RBC (0.00-0.01) x10^3u/L Lymphocytes % (24.0-44.0) % Monocytes % (0.0-12.0) % Eosinophils % (0.00-5.0) % Basophils % (0.0-0.4) % Absolute Granulocytes (1.4-6.9) x10^3/uL Basophils # (0-0.4) x10^3/uL PT (9.4-12.5) SECONDS INR (0.8-3.0) APTT (25.1-36.5) SECONDS pO2/FiO2 Ratio % VBG pH (7.32-7.42) VBG pCO2 at Pat Temp (42-55) mm/Hg VBG pO2 at Pat Temp (25-40) mm/Hg VBG HCO3 (22-28) meq/L VBG O2 Sat (Jalen) (95-100) VBG Base Excess (-2.0-2.0) VBG Hemoglobin VBG Carboxyhemoglobin (0.0-6.9) % T HGB POC Potassium (3.5-5.1) Sodium (137-145) mmol/L Potassium (3.5-5.1) mmol/L Chloride (98-107) mmol/L Carbon Dioxide (22-30) mmol/L Anion Gap (5-15) MEQ/L BUN (9-20) mg/dL Creatinine (0.66-1.25) mg/dL Estimated GFR ML/MIN Glucose (74-106) mg/dL POC Glucometer 287 H 212 H 175 H (74 to 106) mg/dL Hemoglobin A1c (4.5-6.0) % Calcium (8.4-10.2) mg/dL Total Bilirubin (0.2-1.3) mg/dL AST (17-59) U/L ALT (0-50) U/L Alkaline Phosphatase (38-126) U/L Troponin I (0.000-0.034) ng/mL Serum Total Protein (6.3-8.2) g/dL Albumin (3.5-5.0) g/dL Triglycerides (30-150) mg/dL Cholesterol (50-200) mg/dL LDL Cholesterol (30-100) mg/dL HDL Cholesterol (40-60) mg/dL Heart Disease Risk Ratio Slides for Path Review 07/24/22 07/24/22 07/24/22 Range/Units 02:10 02:30 02:52 WBC (4.0-10.5) x10^3/uL RBC (4.1-5.6) x10^6/uL Hgb (12.5-18.0) g/dL Hct (42-50) % MCV (78-100) fL MCH (26-32) pg MCHC (32-36) g/dL RDW (11.5-14.0) % Plt Count (150-450) x10^3/uL MPV (7.5-11.0) fL Gran % (36.0-66.0) % Immature Gran % (Auto) (0.00-0.4) % Nucleat RBC Rel Count (0.00-0.1) % Eos # (Auto) (0-0.5) x10^3/uL Immature Gran # (Auto) (0.00-0.03) x10^3u/L Absolute Lymphs (auto) (1.0-4.6) x10^3/uL Absolute Monos (auto) (0.0-1.3) x10^3/uL Absolute Nucleated RBC (0.00-0.01) x10^3u/L Lymphocytes % (24.0-44.0) % Monocytes % (0.0-12.0) % Eosinophils % (0.00-5.0) % Basophils % (0.0-0.4) % Absolute Granulocytes (1.4-6.9) x10^3/uL Basophils # (0-0.4) x10^3/uL PT (9.4-12.5) SECONDS INR (0.8-3.0) APTT 31.2 (25.1-36.5) SECONDS pO2/FiO2 Ratio % VBG pH (7.32-7.42) VBG pCO2 at Pat Temp (42-55) mm/Hg VBG pO2 at Pat Temp (25-40) mm/Hg VBG HCO3 (22-28) meq/L VBG O2 Sat (Jalen) (95-100) VBG Base Excess (-2.0-2.0) VBG Hemoglobin VBG Carboxyhemoglobin (0.0-6.9) % T HGB POC Potassium (3.5-5.1) Sodium (137-145) mmol/L Potassium (3.5-5.1) mmol/L Chloride (98-107) mmol/L Carbon Dioxide (22-30) mmol/L Anion Gap (5-15) MEQ/L BUN (9-20) mg/dL Creatinine (0.66-1.25) mg/dL Estimated GFR ML/MIN Glucose (74-106) mg/dL POC Glucometer 147 H 122 H (74 to 106) mg/dL Hemoglobin A1c (4.5-6.0) % Calcium (8.4-10.2) mg/dL Total Bilirubin (0.2-1.3) mg/dL AST (17-59) U/L ALT (0-50) U/L Alkaline Phosphatase (38-126) U/L Troponin I (0.000-0.034) ng/mL Serum Total Protein (6.3-8.2) g/dL Albumin (3.5-5.0) g/dL Triglycerides (30-150) mg/dL Cholesterol (50-200) mg/dL LDL Cholesterol (30-100) mg/dL HDL Cholesterol (40-60) mg/dL Heart Disease Risk Ratio Slides for Path Review 07/24/22 07/24/22 07/24/22 Range/Units 03:00 03:00 04:00 WBC 14.8 H (4.0-10.5) x10^3/uL RBC 3.14 L (4.1-5.6) x10^6/uL Hgb 8.9 L (12.5-18.0) g/dL Hct 27.7 L (42-50) % MCV 88.2 (78-100) fL MCH 28.3 (26-32) pg MCHC 32.1 (32-36) g/dL RDW 13.6 (11.5-14.0) % Plt Count 463 H (150-450) x10^3/uL MPV 8.3 (7.5-11.0) fL Gran % 76.7 H (36.0-66.0) % Immature Gran % (Auto) 1.2 H (0.00-0.4) % Nucleat RBC Rel Count 0.0 (0.00-0.1) % Eos # (Auto) 0.13 (0-0.5) x10^3/uL Immature Gran # (Auto) 0.17 H (0.00-0.03) x10^3u/L Absolute Lymphs (auto) 1.35 (1.0-4.6) x10^3/uL Absolute Monos (auto) 1.75 H (0.0-1.3) x10^3/uL Absolute Nucleated RBC 0.00 (0.00-0.01) x10^3u/L Lymphocytes % 9.1 L (24.0-44.0) % Monocytes % 11.8 (0.0-12.0) % Eosinophils % 0.9 (0.00-5.0) % Basophils % 0.3 (0.0-0.4) % Absolute Granulocytes 11.33 H (1.4-6.9) x10^3/uL Basophils # 0.05 (0-0.4) x10^3/uL PT (9.4-12.5) SECONDS INR (0.8-3.0) APTT (25.1-36.5) SECONDS pO2/FiO2 Ratio % VBG pH (7.32-7.42) VBG pCO2 at Pat Temp (42-55) mm/Hg VBG pO2 at Pat Temp (25-40) mm/Hg VBG HCO3 (22-28) meq/L VBG O2 Sat (Jalen) (95-100) VBG Base Excess (-2.0-2.0) VBG Hemoglobin VBG Carboxyhemoglobin (0.0-6.9) % T HGB POC Potassium (3.5-5.1) Sodium 127 L (137-145) mmol/L Potassium 3.6 (3.5-5.1) mmol/L Chloride 89 L (98-107) mmol/L Carbon Dioxide 27 (22-30) mmol/L Anion Gap 14.2 (5-15) MEQ/L BUN 41 H (9-20) mg/dL Creatinine 3.27 H (0.66-1.25) mg/dL Estimated GFR 22.9 ML/MIN Glucose 127 H (74-106) mg/dL POC Glucometer 111 H (74 to 106) mg/dL Hemoglobin A1c (4.5-6.0) % Calcium 7.6 L (8.4-10.2) mg/dL Total Bilirubin (0.2-1.3) mg/dL AST (17-59) U/L ALT (0-50) U/L Alkaline Phosphatase (38-126) U/L Troponin I 0.510 H* (0.000-0.034) ng/mL Serum Total Protein (6.3-8.2) g/dL Albumin (3.5-5.0) g/dL Triglycerides 247 H (30-150) mg/dL Cholesterol 238 H (50-200) mg/dL LDL Cholesterol 152 H (30-100) mg/dL HDL Cholesterol 33 L (40-60) mg/dL Heart Disease Risk Ratio 7.2 Slides for Path Review YES 07/24/22 07/24/22 07/24/22 Range/Units 05:29 06:20 06:25 WBC (4.0-10.5) x10^3/uL RBC (4.1-5.6) x10^6/uL Hgb (12.5-18.0) g/dL Hct (42-50) % MCV (78-100) fL MCH (26-32) pg MCHC (32-36) g/dL RDW (11.5-14.0) % Plt Count (150-450) x10^3/uL MPV (7.5-11.0) fL Gran % (36.0-66.0) % Immature Gran % (Auto) (0.00-0.4) % Nucleat RBC Rel Count (0.00-0.1) % Eos # (Auto) (0-0.5) x10^3/uL Immature Gran # (Auto) (0.00-0.03) x10^3u/L Absolute Lymphs (auto) (1.0-4.6) x10^3/uL Absolute Monos (auto) (0.0-1.3) x10^3/uL Absolute Nucleated RBC (0.00-0.01) x10^3u/L Lymphocytes % (24.0-44.0) % Monocytes % (0.0-12.0) % Eosinophils % (0.00-5.0) % Basophils % (0.0-0.4) % Absolute Granulocytes (1.4-6.9) x10^3/uL Basophils # (0-0.4) x10^3/uL PT (9.4-12.5) SECONDS INR (0.8-3.0) APTT (25.1-36.5) SECONDS pO2/FiO2 Ratio % VBG pH (7.32-7.42) VBG pCO2 at Pat Temp (42-55) mm/Hg VBG pO2 at Pat Temp (25-40) mm/Hg VBG HCO3 (22-28) meq/L VBG O2 Sat (Jalen) (95-100) VBG Base Excess (-2.0-2.0) VBG Hemoglobin VBG Carboxyhemoglobin (0.0-6.9) % T HGB POC Potassium (3.5-5.1) Sodium (137-145) mmol/L Potassium (3.5-5.1) mmol/L Chloride (98-107) mmol/L Carbon Dioxide (22-30) mmol/L Anion Gap (5-15) MEQ/L BUN (9-20) mg/dL Creatinine (0.66-1.25) mg/dL Estimated GFR ML/MIN Glucose (74-106) mg/dL POC Glucometer 192 H 217 H (74 to 106) mg/dL Hemoglobin A1c (4.5-6.0) % Calcium (8.4-10.2) mg/dL Total Bilirubin (0.2-1.3) mg/dL AST (17-59) U/L ALT (0-50) U/L Alkaline Phosphatase (38-126) U/L Troponin I 0.405 H* (0.000-0.034) ng/mL Serum Total Protein (6.3-8.2) g/dL Albumin (3.5-5.0) g/dL Triglycerides (30-150) mg/dL Cholesterol (50-200) mg/dL LDL Cholesterol (30-100) mg/dL HDL Cholesterol (40-60) mg/dL Heart Disease Risk Ratio Slides for Path Review 07/24/22 07/24/22 07/24/22 Range/Units 06:25 06:25 08:02 WBC (4.0-10.5) x10^3/uL RBC (4.1-5.6) x10^6/uL Hgb (12.5-18.0) g/dL Hct (42-50) % MCV (78-100) fL MCH (26-32) pg MCHC (32-36) g/dL RDW (11.5-14.0) % Plt Count (150-450) x10^3/uL MPV (7.5-11.0) fL Gran % (36.0-66.0) % Immature Gran % (Auto) (0.00-0.4) % Nucleat RBC Rel Count (0.00-0.1) % Eos # (Auto) (0-0.5) x10^3/uL Immature Gran # (Auto) (0.00-0.03) x10^3u/L Absolute Lymphs (auto) (1.0-4.6) x10^3/uL Absolute Monos (auto) (0.0-1.3) x10^3/uL Absolute Nucleated RBC (0.00-0.01) x10^3u/L Lymphocytes % (24.0-44.0) % Monocytes % (0.0-12.0) % Eosinophils % (0.00-5.0) % Basophils % (0.0-0.4) % Absolute Granulocytes (1.4-6.9) x10^3/uL Basophils # (0-0.4) x10^3/uL PT (9.4-12.5) SECONDS INR (0.8-3.0) APTT 35.8 (25.1-36.5) SECONDS pO2/FiO2 Ratio % VBG pH (7.32-7.42) VBG pCO2 at Pat Temp (42-55) mm/Hg VBG pO2 at Pat Temp (25-40) mm/Hg VBG HCO3 (22-28) meq/L VBG O2 Sat (Jalen) (95-100) VBG Base Excess (-2.0-2.0) VBG Hemoglobin VBG Carboxyhemoglobin (0.0-6.9) % T HGB POC Potassium (3.5-5.1) Sodium 128 L (137-145) mmol/L Potassium 3.5 (3.5-5.1) mmol/L Chloride 89 L (98-107) mmol/L Carbon Dioxide 25 (22-30) mmol/L Anion Gap 18.1 H (5-15) MEQ/L BUN 35 H (9-20) mg/dL Creatinine 3.25 H (0.66-1.25) mg/dL Estimated GFR 23.1 ML/MIN Glucose 215 H (74-106) mg/dL POC Glucometer 148 H (74 to 106) mg/dL Hemoglobin A1c (4.5-6.0) % Calcium 7.2 L (8.4-10.2) mg/dL Total Bilirubin (0.2-1.3) mg/dL AST (17-59) U/L ALT (0-50) U/L Alkaline Phosphatase (38-126) U/L Troponin I (0.000-0.034) ng/mL Serum Total Protein (6.3-8.2) g/dL Albumin (3.5-5.0) g/dL Triglycerides (30-150) mg/dL Cholesterol (50-200) mg/dL LDL Cholesterol (30-100) mg/dL HDL Cholesterol (40-60) mg/dL Heart Disease Risk Ratio Slides for Path Review 12/02/0707/24/22 07/24/22 Range/Units 10:45 10:45 10:45 WBC (4.0-10.5) x10^3/uL RBC (4.1-5.6) x10^6/uL Hgb (12.5-18.0) g/dL Hct (42-50) % MCV (78-100) fL MCH (26-32) pg MCHC (32-36) g/dL RDW (11.5-14.0) % Plt Count (150-450) x10^3/uL MPV (7.5-11.0) fL Gran % (36.0-66.0) % Immature Gran % (Auto) (0.00-0.4) % Nucleat RBC Rel Count (0.00-0.1) % Eos # (Auto) (0-0.5) x10^3/uL Immature Gran # (Auto) (0.00-0.03) x10^3u/L Absolute Lymphs (auto) (1.0-4.6) x10^3/uL Absolute Monos (auto) (0.0-1.3) x10^3/uL Absolute Nucleated RBC (0.00-0.01) x10^3u/L Lymphocytes % (24.0-44.0) % Monocytes % (0.0-12.0) % Eosinophils % (0.00-5.0) % Basophils % (0.0-0.4) % Absolute Granulocytes (1.4-6.9) x10^3/uL Basophils # (0-0.4) x10^3/uL PT (9.4-12.5) SECONDS INR (0.8-3.0) APTT 51.3 H (25.1-36.5) SECONDS pO2/FiO2 Ratio % VBG pH (7.32-7.42) VBG pCO2 at Pat Temp (42-55) mm/Hg VBG pO2 at Pat Temp (25-40) mm/Hg VBG HCO3 (22-28) meq/L VBG O2 Sat (Jalen) (95-100) VBG Base Excess (-2.0-2.0) VBG Hemoglobin VBG Carboxyhemoglobin (0.0-6.9) % T HGB POC Potassium (3.5-5.1) Sodium 127 L (137-145) mmol/L Potassium 3.7 (3.5-5.1) mmol/L Chloride 89 L (98-107) mmol/L Carbon Dioxide 27 (22-30) mmol/L Anion Gap 14.2 (5-15) MEQ/L BUN 33 H (9-20) mg/dL Creatinine 3.04 H (0.66-1.25) mg/dL Estimated GFR 24.9 ML/MIN Glucose 228 H (74-106) mg/dL POC Glucometer (74 to 106) mg/dL Hemoglobin A1c 10.51 H (4.5-6.0) % Calcium 7.4 L (8.4-10.2) mg/dL Total Bilirubin (0.2-1.3) mg/dL AST (17-59) U/L ALT (0-50) U/L Alkaline Phosphatase (38-126) U/L Troponin I (0.000-0.034) ng/mL Serum Total Protein (6.3-8.2) g/dL Albumin (3.5-5.0) g/dL Triglycerides (30-150) mg/dL Cholesterol (50-200) mg/dL LDL Cholesterol (30-100) mg/dL HDL Cholesterol (40-60) mg/dL Heart Disease Risk Ratio Slides for Path Review 07/24/22 07/24/22 Range/Units 15:10 15:10 WBC (4.0-10.5) x10^3/uL RBC (4.1-5.6) x10^6/uL Hgb (12.5-18.0) g/dL Hct (42-50) % MCV (78-100) fL MCH (26-32) pg MCHC (32-36) g/dL RDW (11.5-14.0) % Plt Count (150-450) x10^3/uL MPV (7.5-11.0) fL Gran % (36.0-66.0) % Immature Gran % (Auto) (0.00-0.4) % Nucleat RBC Rel Count (0.00-0.1) % Eos # (Auto) (0-0.5) x10^3/uL Immature Gran # (Auto) (0.00-0.03) x10^3u/L Absolute Lymphs (auto) (1.0-4.6) x10^3/uL Absolute Monos (auto) (0.0-1.3) x10^3/uL Absolute Nucleated RBC (0.00-0.01) x10^3u/L Lymphocytes % (24.0-44.0) % Monocytes % (0.0-12.0) % Eosinophils % (0.00-5.0) % Basophils % (0.0-0.4) % Absolute Granulocytes (1.4-6.9) x10^3/uL Basophils # (0-0.4) x10^3/uL PT (9.4-12.5) SECONDS INR (0.8-3.0) APTT 45.3 H (25.1-36.5) SECONDS pO2/FiO2 Ratio % VBG pH (7.32-7.42) VBG pCO2 at Pat Temp (42-55) mm/Hg VBG pO2 at Pat Temp (25-40) mm/Hg VBG HCO3 (22-28) meq/L VBG O2 Sat (Jalen) (95-100) VBG Base Excess (-2.0-2.0) VBG Hemoglobin VBG Carboxyhemoglobin (0.0-6.9) % T HGB POC Potassium (3.5-5.1) Sodium 127 L (137-145) mmol/L Potassium 3.5 (3.5-5.1) mmol/L Chloride 90 L (98-107) mmol/L Carbon Dioxide 30 (22-30) mmol/L Anion Gap 10.7 (5-15) MEQ/L BUN 31 H (9-20) mg/dL Creatinine 2.92 H (0.66-1.25) mg/dL Estimated GFR 26.1 ML/MIN Glucose 176 H (74-106) mg/dL POC Glucometer (74 to 106) mg/dL Hemoglobin A1c (4.5-6.0) % Calcium 7.5 L (8.4-10.2) mg/dL Total Bilirubin (0.2-1.3) mg/dL AST (17-59) U/L ALT (0-50) U/L Alkaline Phosphatase (38-126) U/L Troponin I (0.000-0.034) ng/mL Serum Total Protein (6.3-8.2) g/dL Albumin (3.5-5.0) g/dL Triglycerides (30-150) mg/dL Cholesterol (50-200) mg/dL LDL Cholesterol (30-100) mg/dL HDL Cholesterol (40-60) mg/dL Heart Disease Risk Ratio Slides for Path Review Accuchecks Date 07/24/22 Date 07/24/22 Date 07/24/22 Date 07/24/22 Date 07/24/22 Date 07/24/22 Date 07/24/22 Date 07/24/22 Date 07/24/22 Date 07/24/22 Date 07/23/22 Date 07/23/22 Time 08:04 Time 08:04 Time 06:26 Time 06:26 Time 01:31 Time 01:31 Time 00:24 Time 23:28 Time 22:30 - Radiology Impressions Radiology Exams & Impressions: Radiology Procedures Category Date Time Status ABDOMEN WITHOUT CONTRAST [CT] Stat Exams 07/23/22 06:26 Completed - Other Procedures and Tests Respiratory Therapy 07/25/22 05:00 EKG ROUTINE 07/26/22 05:00 EKG ROUTINE Assessment/Plan (1) NSTEMI (non-ST elevated myocardial infarction) Current Visit: Yes Status: Acute Assessment & Plan: He is on a heparin drip and ASA, per cardiology. Consult cardiology today. Code(s): I21.4 - NON-ST ELEVATION (NSTEMI) MYOCARDIAL INFARCTION (2) DKA (diabetic ketoacidosis) Current Visit: Yes Status: Resolved Qualifiers: Diabetes mellitus type: type 1 Diabetes mellitus complication detail: without coma Qualified Code(s): E10.10 - Type 1 diabetes mellitus with ketoacidosis without coma Code(s): E11.10 - TYPE 2 DIABETES MELLITUS WITH KETOACIDOSIS WITHOUT COMA (3) RSV (acute bronchiolitis due to respiratory syncytial virus) Current Visit: Yes Status: Acute Assessment & Plan: I did add zithromax since he had a mildly elevated procalcitonin; he did not have a CXR so will add that now. (4) Diabetes mellitus type I Current Visit: No Status: Chronic Onset Date: ~05/30/18 Qualifiers: Diabetes mellitus complication status: with kidney complications Diabetes mellitus complication detail: with nephropathy Qualified Code(s): E10.21 - Type 1 diabetes mellitus with diabetic nephropathy (5) Hyponatremia Current Visit: No Status: Chronic Assessment & Plan: from 132 down to 127 this morning. Code(s): E87.1 - HYPO-OSMOLALITY AND HYPONATREMIA
[2022-07-24 18:40] LABS: ANION GAP 19.4 MEQ/L (5-15); Calcium 7.9 mg/dL (8.4-10.2); Creatinine 1 2.9 mg/dL (0.66-1.25); EST GLOMERULAR FILTRATION RATE 26.3 ML/MIN; Potassium 4.2 mmol/L (3.5-5.1)
[2022-07-24] MEDS ORDERED: BENADRYL 50 MG/ML IV ONE (18:50)
[2022-07-24] MEDS: TRANDATE 20 MG/4 ML SYRINGE IV SCH (22:04)
[2022-07-24 23:30] LABS: ANION GAP 22.3 MEQ/L (5-15); Calcium 7.7 mg/dL (8.4-10.2); Creatinine 1 2.93 mg/dL (0.66-1.25); Potassium 3.7 mmol/L (3.5-5.1)
[2022-07-25] MEDS: HUMALOG SQ PRN ×4 (00:47→17:30)
[2022-07-25] MEDS: D5W/0.45NS W/ 20mEq KCl 1000 ML 1,000 ML IV SCH ×3 (00:48→10:26)
[2022-07-25 05:35] LABS: Absolute Neutrophil Ct (ANC) 6.65 x10^3/uL (1.4-6.9); Basophil (Absolute #) 0.02 x10^3/uL (0-0.4); Eosinophil % 1.2 % (0.00-5.0); Eosinophil (Absolute #) 0.11 x10^3/uL (0-0.5); Hematocrit 23.1 % (42-50); Hemoglobin 7.9 g/dL (12.5-18.0); Lymphocyte (Absolute #) 1.12 x10^3/uL (1.0-4.6); Lymphocytes % 12.7 % (24.0-44.0); Mean Corpuscular Hgb Concent. 34.2 g/dL (32-36); Monocyte (Absolute #) 0.89 x10^3/uL (0.0-1.3); Monocytes % 10.1 % (0.0-12.0); Neutrophil % 75.1 % (36.0-66.0); Platelet Count 307 x10^3/uL (150-450); Red Blood Count 2.82 x10^6/uL (4.1-5.6); Red Cell Distribution Width 13.5 % (11.5-14.0); White Blood Count 8.9 x10^3/uL (4.0-10.5)
[2022-07-25 06:15] LABS: ANION GAP 10.1 MEQ/L (5-15); Calcium 7.7 mg/dL (8.4-10.2); Creatinine 1 2.63 mg/dL (0.66-1.25); EST GLOMERULAR FILTRATION RATE 29.4 ML/MIN; Potassium 3.4 mmol/L (3.5-5.1)
[2022-07-25] MEDS: NITRO-BID 2% UD PACKETS TOP SCH ×3 (06:29→21:31)
[2022-07-25] MEDS: TRANDATE 20 MG/4 ML SYRINGE IV SCH (06:29)
[2022-07-25 07:36] LABS: Mean Cell Volume 81.9 fL (78-100)
--- NOTE | 2022-07-25 08:38 | PCM.NOTE ---
Date and Time: 07/25/22 0835 Subjective Assessment: patient denies any chest pain today, nausea is better. no vomiting, he feels much better. Objective Exam General Appearance: no apparent distress Neurologic Exam: alert, oriented x 3 Respiratory Exam: normal breath sounds, lungs clear, No respiratory distress Cardiovascular Exam: regular rate/rhythm, normal heart sounds Gastrointestinal/Abdomen Exam: soft Extremity Exam: normal inspection, normal range of motion OBJECTIVE DATA Vital Signs: Vital Signs - 24 hr Temp Pulse Resp BP BP Pulse Ox 07/25/22 08:00 97.5 F 83 18 117/73 98 07/25/22 06:29 153/78 94 L 07/25/22 04:00 98.1 F 83 18 155/74 93 L 07/25/22 00:00 97.9 F 88 16 173/88 98 07/24/22 22:04 185/97 97 07/24/22 21:43 88 17 194/111 96 07/24/22 20:00 98.9 F 89 18 208/109 96 07/24/22 16:00 98.1 F 86 16 154/87 98 07/24/22 11:39 98.6 F 86 18 145/76 94 L 07/24/22 11:28 88 Pain Assessment - Last Documented Pain Intensity 0 Intake and Output: Intake & Output 07/22/22 07/23/22 07/24/22 07/25/22 11:59 11:59 11:59 11:59 Intake Total 3621 3218 Output Total 1300 1650 Balance 2321 1568 Weight 64.637 kg 69.3 kg 70 kg Lab Results: Lab Results-Last 24 Hours 07/24/22 07/24/22 07/24/22 Range/Units 10:45 10:45 10:45 WBC (4.0-10.5) x10^3/uL RBC (4.1-5.6) x10^6/uL Hgb (12.5-18.0) g/dL Hct (42-50) % MCV (78-100) fL MCH (26-32) pg MCHC (32-36) g/dL RDW (11.5-14.0) % Plt Count (150-450) x10^3/uL MPV (7.5-11.0) fL Gran % (36.0-66.0) % Immature Gran % (Auto) (0.00-0.4) % Nucleat RBC Rel Count (0.00-0.1) % Eos # (Auto) (0-0.5) x10^3/uL Immature Gran # (Auto) (0.00-0.03) x10^3u/L Absolute Lymphs (auto) (1.0-4.6) x10^3/uL Absolute Monos (auto) (0.0-1.3) x10^3/uL Absolute Nucleated RBC (0.00-0.01) x10^3u/L Lymphocytes % (24.0-44.0) % Monocytes % (0.0-12.0) % Eosinophils % (0.00-5.0) % Basophils % (0.0-0.4) % Absolute Granulocytes (1.4-6.9) x10^3/uL Basophils # (0-0.4) x10^3/uL APTT 51.3 H (25.1-36.5) SECONDS Sodium 127 L (137-145) mmol/L Potassium 3.7 (3.5-5.1) mmol/L Chloride 89 L (98-107) mmol/L Carbon Dioxide 27 (22-30) mmol/L Anion Gap 14.2 (5-15) MEQ/L BUN 33 H (9-20) mg/dL Creatinine 3.04 H (0.66-1.25) mg/dL Estimated GFR 24.9 ML/MIN Glucose 228 H (74-106) mg/dL POC Glucometer (74 to 106) mg/dL Hemoglobin A1c 10.51 H (4.5-6.0) % Calcium 7.4 L (8.4-10.2) mg/dL Procalcitonin (0.030-0.080) ng/mL 07/24/22 07/24/22 07/24/22 Range/Units 15:10 15:10 18:20 WBC (4.0-10.5) x10^3/uL RBC (4.1-5.6) x10^6/uL Hgb (12.5-18.0) g/dL Hct (42-50) % MCV (78-100) fL MCH (26-32) pg MCHC (32-36) g/dL RDW (11.5-14.0) % Plt Count (150-450) x10^3/uL MPV (7.5-11.0) fL Gran % (36.0-66.0) % Immature Gran % (Auto) (0.00-0.4) % Nucleat RBC Rel Count (0.00-0.1) % Eos # (Auto) (0-0.5) x10^3/uL Immature Gran # (Auto) (0.00-0.03) x10^3u/L Absolute Lymphs (auto) (1.0-4.6) x10^3/uL Absolute Monos (auto) (0.0-1.3) x10^3/uL Absolute Nucleated RBC (0.00-0.01) x10^3u/L Lymphocytes % (24.0-44.0) % Monocytes % (0.0-12.0) % Eosinophils % (0.00-5.0) % Basophils % (0.0-0.4) % Absolute Granulocytes (1.4-6.9) x10^3/uL Basophils # (0-0.4) x10^3/uL APTT 45.3 H 49.8 H (25.1-36.5) SECONDS Sodium 127 L (137-145) mmol/L Potassium 3.5 (3.5-5.1) mmol/L Chloride 90 L (98-107) mmol/L Carbon Dioxide 30 (22-30) mmol/L Anion Gap 10.7 (5-15) MEQ/L BUN 31 H (9-20) mg/dL Creatinine 2.92 H (0.66-1.25) mg/dL Estimated GFR 26.1 ML/MIN Glucose 176 H (74-106) mg/dL POC Glucometer (74 to 106) mg/dL Hemoglobin A1c (4.5-6.0) % Calcium 7.5 L (8.4-10.2) mg/dL Procalcitonin (0.030-0.080) ng/mL 07/24/22 07/24/22 07/24/22 Range/Units 18:20 21:23 23:00 WBC (4.0-10.5) x10^3/uL RBC (4.1-5.6) x10^6/uL Hgb (12.5-18.0) g/dL Hct (42-50) % MCV (78-100) fL MCH (26-32) pg MCHC (32-36) g/dL RDW (11.5-14.0) % Plt Count (150-450) x10^3/uL MPV (7.5-11.0) fL Gran % (36.0-66.0) % Immature Gran % (Auto) (0.00-0.4) % Nucleat RBC Rel Count (0.00-0.1) % Eos # (Auto) (0-0.5) x10^3/uL Immature Gran # (Auto) (0.00-0.03) x10^3u/L Absolute Lymphs (auto) (1.0-4.6) x10^3/uL Absolute Monos (auto) (0.0-1.3) x10^3/uL Absolute Nucleated RBC (0.00-0.01) x10^3u/L Lymphocytes % (24.0-44.0) % Monocytes % (0.0-12.0) % Eosinophils % (0.00-5.0) % Basophils % (0.0-0.4) % Absolute Granulocytes (1.4-6.9) x10^3/uL Basophils # (0-0.4) x10^3/uL APTT 53.5 H (25.1-36.5) SECONDS Sodium 125 L (137-145) mmol/L Potassium 4.2 (3.5-5.1) mmol/L Chloride 87 L (98-107) mmol/L Carbon Dioxide 23 (22-30) mmol/L Anion Gap 19.4 H (5-15) MEQ/L BUN 29 H (9-20) mg/dL Creatinine 2.90 H (0.66-1.25) mg/dL Estimated GFR 26.3 ML/MIN Glucose 333 H (74-106) mg/dL POC Glucometer 446 H (74 to 106) mg/dL Hemoglobin A1c (4.5-6.0) % Calcium 7.9 L (8.4-10.2) mg/dL Procalcitonin (0.030-0.080) ng/mL 07/24/22 07/24/22 07/25/22 Range/Units 23:00 23:58 04:34 WBC (4.0-10.5) x10^3/uL RBC (4.1-5.6) x10^6/uL Hgb (12.5-18.0) g/dL Hct (42-50) % MCV (78-100) fL MCH (26-32) pg MCHC (32-36) g/dL RDW (11.5-14.0) % Plt Count (150-450) x10^3/uL MPV (7.5-11.0) fL Gran % (36.0-66.0) % Immature Gran % (Auto) (0.00-0.4) % Nucleat RBC Rel Count (0.00-0.1) % Eos # (Auto) (0-0.5) x10^3/uL Immature Gran # (Auto) (0.00-0.03) x10^3u/L Absolute Lymphs (auto) (1.0-4.6) x10^3/uL Absolute Monos (auto) (0.0-1.3) x10^3/uL Absolute Nucleated RBC (0.00-0.01) x10^3u/L Lymphocytes % (24.0-44.0) % Monocytes % (0.0-12.0) % Eosinophils % (0.00-5.0) % Basophils % (0.0-0.4) % Absolute Granulocytes (1.4-6.9) x10^3/uL Basophils # (0-0.4) x10^3/uL APTT (25.1-36.5) SECONDS Sodium 125 L (137-145) mmol/L Potassium 3.7 (3.5-5.1) mmol/L Chloride 88 L (98-107) mmol/L Carbon Dioxide 18 L (22-30) mmol/L Anion Gap 22.3 H (5-15) MEQ/L BUN 27 H (9-20) mg/dL Creatinine 2.93 H (0.66-1.25) mg/dL Estimated GFR 26.0 ML/MIN Glucose 437 H (74-106) mg/dL POC Glucometer 338 H 128 H (74 to 106) mg/dL Hemoglobin A1c (4.5-6.0) % Calcium 7.7 L (8.4-10.2) mg/dL Procalcitonin (0.030-0.080) ng/mL 07/25/22 07/25/22 07/25/22 Range/Units 05:28 05:28 05:28 WBC 8.9 (4.0-10.5) x10^3/uL RBC 2.82 L (4.1-5.6) x10^6/uL Hgb 7.9 L (12.5-18.0) g/dL Hct 23.1 L (42-50) % MCV 81.9 D (78-100) fL MCH 28.0 (26-32) pg MCHC 34.2 (32-36) g/dL RDW 13.5 (11.5-14.0) % Plt Count 307 (150-450) x10^3/uL MPV 8.0 (7.5-11.0) fL Gran % 75.1 H (36.0-66.0) % Immature Gran % (Auto) 0.7 H (0.00-0.4) % Nucleat RBC Rel Count 0.0 (0.00-0.1) % Eos # (Auto) 0.11 (0-0.5) x10^3/uL Immature Gran # (Auto) 0.06 H (0.00-0.03) x10^3u/L Absolute Lymphs (auto) 1.12 (1.0-4.6) x10^3/uL Absolute Monos (auto) 0.89 (0.0-1.3) x10^3/uL Absolute Nucleated RBC 0.00 (0.00-0.01) x10^3u/L Lymphocytes % 12.7 L (24.0-44.0) % Monocytes % 10.1 (0.0-12.0) % Eosinophils % 1.2 (0.00-5.0) % Basophils % 0.2 (0.0-0.4) % Absolute Granulocytes 6.65 (1.4-6.9) x10^3/uL Basophils # 0.02 (0-0.4) x10^3/uL APTT (25.1-36.5) SECONDS Sodium 127 L (137-145) mmol/L Potassium 3.4 L (3.5-5.1) mmol/L Chloride 91 L (98-107) mmol/L Carbon Dioxide 30 (22-30) mmol/L Anion Gap 10.1 (5-15) MEQ/L BUN 25 H (9-20) mg/dL Creatinine 2.63 H (0.66-1.25) mg/dL Estimated GFR 29.4 ML/MIN Glucose 136 H (74-106) mg/dL POC Glucometer (74 to 106) mg/dL Hemoglobin A1c (4.5-6.0) % Calcium 7.7 L (8.4-10.2) mg/dL Procalcitonin 1.580 H (0.030-0.080) ng/mL 07/25/22 07/25/22 Range/Units 05:28 07:40 WBC (4.0-10.5) x10^3/uL RBC (4.1-5.6) x10^6/uL Hgb (12.5-18.0) g/dL Hct (42-50) % MCV (78-100) fL MCH (26-32) pg MCHC (32-36) g/dL RDW (11.5-14.0) % Plt Count (150-450) x10^3/uL MPV (7.5-11.0) fL Gran % (36.0-66.0) % Immature Gran % (Auto) (0.00-0.4) % Nucleat RBC Rel Count (0.00-0.1) % Eos # (Auto) (0-0.5) x10^3/uL Immature Gran # (Auto) (0.00-0.03) x10^3u/L Absolute Lymphs (auto) (1.0-4.6) x10^3/uL Absolute Monos (auto) (0.0-1.3) x10^3/uL Absolute Nucleated RBC (0.00-0.01) x10^3u/L Lymphocytes % (24.0-44.0) % Monocytes % (0.0-12.0) % Eosinophils % (0.00-5.0) % Basophils % (0.0-0.4) % Absolute Granulocytes (1.4-6.9) x10^3/uL Basophils # (0-0.4) x10^3/uL APTT 50.6 H (25.1-36.5) SECONDS Sodium (137-145) mmol/L Potassium (3.5-5.1) mmol/L Chloride (98-107) mmol/L Carbon Dioxide (22-30) mmol/L Anion Gap (5-15) MEQ/L BUN (9-20) mg/dL Creatinine (0.66-1.25) mg/dL Estimated GFR ML/MIN Glucose (74-106) mg/dL POC Glucometer 203 H (74 to 106) mg/dL Hemoglobin A1c (4.5-6.0) % Calcium (8.4-10.2) mg/dL Procalcitonin (0.030-0.080) ng/mL Radiology Exams: Radiology Procedures Category Date Time Status CHEST 1 VIEW (PORTABLE) Urgent Exams 07/24/22 18:25 Taken ECHO W/2D AND DOPPLER [US] Routine Exams 07/25/22 Ordered Assessment/Plan (1) NSTEMI (non-ST elevated myocardial infarction) Current Visit: Yes Status: Acute Assessment & Plan: no pain, elevated troponin likely affected by renal function. no EKG changes and he is pain-free today. stop heparin drip, get echo. start coreg 12.5mg po bid per cardiology recommendations, patient won't take pills so staff to crush it Code(s): I21.4 - NON-ST ELEVATION (NSTEMI) MYOCARDIAL INFARCTION (2) DKA (diabetic ketoacidosis) Current Visit: Yes Status: Resolved Qualifiers: Diabetes mellitus type: type 1 Diabetes mellitus complication detail: without coma Qualified Code(s): E10.10 - Type 1 diabetes mellitus with ketoacidosis without coma Assessment & Plan: gap is closed, start lantus and sq insulin coverage Code(s): E11.10 - TYPE 2 DIABETES MELLITUS WITH KETOACIDOSIS WITHOUT COMA (3) Acute on chronic renal failure Current Visit: No Status: Acute Qualifiers: Acute renal failure type: unspecified Chronic kidney disease stage: stage 5, not on chronic dialysis Qualified Code(s): N17.9 - Acute kidney failure, un specified; N18.5 - Chronic kidney disease, stage 5 Assessment & Plan: renal function improving, will consult nephrology per cardio recommendations. Code(s): N17.9 - ACUTE KIDNEY FAILURE, UNSPECIFIED; N18.9 - CHRONIC KIDNEY DISEASE, UNSPECIFIED (4) RSV (acute bronchiolitis due to respiratory syncytial virus) Current Visit: Yes Status: Acute Assessment & Plan: supportive care
--- NOTE | 2022-07-25 08:41 | XRAY ---
Indication: Cough. Positive RSV. Comparison: April 22, 2022 Portable chest again demonstrates normal heart, lungs, and bony thorax.
[2022-07-25] MEDS ORDERED: SODIUM CHLORIDE 0.45% W/ 20 mEq KCL 1,000 ML IV SCH (08:45)
[2022-07-25] MEDS: COREG 12.5 MG PO SCH ×2 (08:55→21:31)
[2022-07-25] MEDS: Lantus Insulin SQ SCH (09:48)
[2022-07-25] MEDS: Nicoderm CQ 21 MG TOP SCH (09:49)
[2022-07-25] MEDS: Ecotrin 325 MG PO SCH (09:49)
--- NOTE | 2022-07-25 15:03 | XRAY ---
Indication: Evaluate post void residual. Limited ultrasound urinary bladder obtained post void demonstrates a volume of 15 cc.
--- NOTE | 2022-07-25 15:35 | CONS ---
CONSULT DATE: 07/25/2022 REASON FOR CONSULT: Evaluation of increased BUN and creatinine. HISTORY: Av Gustafson is a very pleasant 36-year-old gentleman who is well known to me. The patient has progressive chronic kidney disease. His creatinine has been 2.5 to 3 mg%. Etiology of chronic kidney disease is because of poorly controlled diabetes mellitus type I. He has had several episodes of diabetic ketoacidosis. Creatinine was near 4 mg% hence renal consultation was called. He was admitted to [facility]. REVIEW OF SYSTEMS: At this time no vomiting, no diarrhea. Troponins were elevated. Cardiology was consulted. The patient was admitted to [facility] and had NSTEMI. He has history of prior drug abuse but denies any recent drug abuse. He had diabetic ketoacidosis and was put on diabetic ketoacidosis treatment and the gap closed. Voiding well. In the past he has had urine retention. No leg swelling. No shortness of breath, not on oxygen. No hematuria. Otherwise system review was negative. All systems were reviewed and pertinent mentioned here. PAST MEDICAL HISTORY: Hypertension, diabetes mellitus type I, chronic kidney disease stage IV, anxiety, depression. Past drug use. Chronic noncompliance. PAST SURGICAL HISTORY: No recent surgery in the recent past. MEDICATIONS: Included Coreg, clonidine, insulin Lispro. Possibly was given Flomax but not taking it. In hospital medications were reviewed. ALLERGIES: NKDA. SOCIAL HISTORY: Prior drug abuse. Nonsmoker, nonalcoholic. FAMILY HISTORY: No history of renal problems in the family. PHYSICAL EXAMINATION: Vital signs were reviewed. Hypertensive initially now normotensive, afebrile. HEENT: Normocephalic, atraumatic, pale conjunctivae, nonicteric sclera. NECK: Supple. No JVD. CHEST: Clear. CVS: S1, S2 normal. ABDOMEN: Soft, nontender. No organomegaly. EXTREMITIES: No cyanosis, clubbing or edema. SKIN: No skin rash. NEUROLOGIC: Alert, awake, oriented x3. LAB DATA AND TESTS: Hemoglobin 8.9, white count was 14.8. Creatinine is down from 3.97 to 2.63. Sodium levels 127 and corrected sodium is around 129. All of the labs were reviewed. ASSESSMENT: 1) Acute kidney injury because of diabetic ketoacidosis, dehydration improving. Creatinine is better to 2.63. GFR is 29. No need for renal replacement therapy. 2) Hypokalemia, replace as per protocol. 3) Hyponatremia because of high blood sugar plus liquid diet/low osmolar intake. Change half normal saline to normal saline with potassium at 50 ml/hr. 4) History of urine retention. Monitor post-void bladder scan. Restart Flomax as needed. 5) NSTEMI. Cardiology on the case. 6) Diabetes mellitus type I, importance of glycemic control was discussed. 7) Anemia, not otherwise specified. Hemoglobin 8.9. Monitor iron, start Epogen. He can follow up with me in the office. All of his questions were answered.
[2022-07-25] MEDS: Sodium Chloride 0.9% W/ 20 mEq KCl/LITER 1,000 ML IV SCH (15:54)
[2022-07-25] MEDS: RETACRIT SQ SCH (15:54)
[2022-07-25 16:34] LABS: Folate (Folic Acid) 8.78 ng/mL (2.76 - >20)
[2022-07-26] MEDS: HUMALOG SQ PRN ×4 (04:31→21:07)
[2022-07-26] MEDS: Zofran 4 MG/2 ML VIAL IV PRN ×2 (04:37→16:18)
[2022-07-26 04:48] LABS: Absolute Neutrophil Ct (ANC) 4.45 x10^3/uL (1.4-6.9); Basophil (Absolute #) 0.02 x10^3/uL (0-0.4); Eosinophil (Absolute #) 0.31 x10^3/uL (0-0.5); Hematocrit 23.9 % (42-50); Hemoglobin 7.8 g/dL (12.5-18.0); Lymphocytes % 9.8 % (24.0-44.0); Mean Cell Volume 86.9 fL (78-100); Mean Corpuscular Hemoglobin 28.4 pg (26-32); Mean Corpuscular Hgb Concent. 32.6 g/dL (32-36); Mean Platelet Volume 8.2 fL (7.5-11.0); Monocyte (Absolute #) 0.74 x10^3/uL (0.0-1.3); Neutrophil % 72.4 % (36.0-66.0); Platelet Count 256 x10^3/uL (150-450); Red Blood Count 2.75 x10^6/uL (4.1-5.6); Red Cell Distribution Width 13.6 % (11.5-14.0); White Blood Count 6.2 x10^3/uL (4.0-10.5)
[2022-07-26 05:09] LABS: ALBUMIN 2.5 g/dL (3.5-5.0); ANION GAP 6.1 MEQ/L (5-15); BILIRUBIN,TOTAL 0.4 mg/dL (0.2-1.3); Calcium 7.9 mg/dL (8.4-10.2); Creatinine 1 2.42 mg/dL (0.66-1.25); EST GLOMERULAR FILTRATION RATE 32.4 ML/MIN; MAGNESIUM 1.7 mg/dL (1.6-2.3); Potassium 5.4 mmol/L (3.5-5.1); Total Protein 5.5 g/dL (6.3-8.2)
[2022-07-26] MEDS: NITRO-BID 2% UD PACKETS TOP SCH (05:46)
--- NOTE | 2022-07-26 08:31 | PCM.NOTE ---
Date and Time: 07/26/22 08 Subjective Assessment: no abd pain, no nausea or vomiting and tolerating full liquids. no complaints this morning Objective Exam General Appearance: no apparent distress Neurologic Exam: alert, oriented x 3 Respiratory Exam: normal breath sounds, lungs clear, No respiratory distress Cardiovascular Exam: regular rate/rhythm, normal heart sounds Gastrointestinal/Abdomen Exam: soft, No tenderness, No mass OBJECTIVE DATA Vital Signs: Vital Signs - 24 hr Temp Pulse Resp BP Pulse Ox 07/26/22 07:44 97.6 F 74 24 154/98 98 07/26/22 04:00 97.8 F 64 18 133/76 97 07/25/22 23:59 97.9 F 82 22 163/86 98 07/25/22 19:38 98.2 F 77 19 140/78 98 07/25/22 16:00 97.5 F 73 19 166/90 96 07/25/22 12:00 97.6 F 76 16 131/78 98 Pain Assessment - Last Documented Pain Intensity 0 Intake and Output: Intake & Output 07/23/22 07/24/22 07/25/22 07/26/22 11:59 11:59 11:59 11:59 Intake Total 3621 3218 2145 Output Total 1300 1650 4000 Balance 2321 1568 -1855 Weight 64.637 kg 69.3 kg 70 kg 71.5 kg Lab Results: Lab Results-Last 24 Hours 07/25/22 07/25/22 07/25/22 Range/Units 05:30 05:30 08:39 WBC (4.0-10.5) x10^3/uL RBC (4.1-5.6) x10^6/uL Hgb (12.5-18.0) g/dL Hct (42-50) % MCV (78-100) fL MCH (26-32) pg MCHC (32-36) g/dL RDW (11.5-14.0) % Plt Count (150-450) x10^3/uL MPV (7.5-11.0) fL Gran % (36.0-66.0) % Immature Gran % (Auto) (0.00-0.4) % Nucleat RBC Rel Count (0.00-0.1) % Eos # (Auto) (0-0.5) x10^3/uL Immature Gran # (Auto) (0.00-0.03) x10^3u/L Absolute Lymphs (auto) (1.0-4.6) x10^3/uL Absolute Monos (auto) (0.0-1.3) x10^3/uL Absolute Nucleated RBC (0.00-0.01) x10^3u/L Lymphocytes % (24.0-44.0) % Monocytes % (0.0-12.0) % Eosinophils % (0.00-5.0) % Basophils % (0.0-0.4) % Absolute Granulocytes (1.4-6.9) x10^3/uL Basophils # (0-0.4) x10^3/uL APTT (25.1-36.5) SECONDS Sodium (137-145) mmol/L Potassium (3.5-5.1) mmol/L Chloride (98-107) mmol/L Carbon Dioxide (22-30) mmol/L Anion Gap (5-15) MEQ/L BUN (9-20) mg/dL Creatinine (0.66-1.25) mg/dL Estimated GFR ML/MIN Glucose (74-106) mg/dL POC Glucometer (74 to 106) mg/dL Calcium (8.4-10.2) mg/dL Magnesium (1.6-2.3) mg/dL Iron 113 (49-181) ug/dL Ferritin 163 (17.9-464) ng/mL Total Bilirubin (0.2-1.3) mg/dL AST (17-59) U/L ALT (0-50) U/L Alkaline Phosphatase (38-126) U/L Troponin I 0.193 H* (0.000-0.034) ng/mL Serum Total Protein (6.3-8.2) g/dL Albumin (3.5-5.0) g/dL Vitamin B12 710 (239-931) pg/mL Folic Acid 8.78 (2.76 - >20) ng/mL 07/25/22 07/25/22 07/25/22 Range/Units 11:48 16:03 19:56 WBC (4.0-10.5) x10^3/uL RBC (4.1-5.6) x10^6/uL Hgb (12.5-18.0) g/dL Hct (42-50) % MCV (78-100) fL MCH (26-32) pg MCHC (32-36) g/dL RDW (11.5-14.0) % Plt Count (150-450) x10^3/uL MPV (7.5-11.0) fL Gran % (36.0-66.0) % Immature Gran % (Auto) (0.00-0.4) % Nucleat RBC Rel Count (0.00-0.1) % Eos # (Auto) (0-0.5) x10^3/uL Immature Gran # (Auto) (0.00-0.03) x10^3u/L Absolute Lymphs (auto) (1.0-4.6) x10^3/uL Absolute Monos (auto) (0.0-1.3) x10^3/uL Absolute Nucleated RBC (0.00-0.01) x10^3u/L Lymphocytes % (24.0-44.0) % Monocytes % (0.0-12.0) % Eosinophils % (0.00-5.0) % Basophils % (0.0-0.4) % Absolute Granulocytes (1.4-6.9) x10^3/uL Basophils # (0-0.4) x10^3/uL APTT (25.1-36.5) SECONDS Sodium (137-145) mmol/L Potassium (3.5-5.1) mmol/L Chloride (98-107) mmol/L Carbon Dioxide (22-30) mmol/L Anion Gap (5-15) MEQ/L BUN (9-20) mg/dL Creatinine (0.66-1.25) mg/dL Estimated GFR ML/MIN Glucose (74-106) mg/dL POC Glucometer 219 H 160 H 144 H (74 to 106) mg/dL Calcium (8.4-10.2) mg/dL Magnesium (1.6-2.3) mg/dL Iron (49-181) ug/dL Ferritin (17.9-464) ng/mL Total Bilirubin (0.2-1.3) mg/dL AST (17-59) U/L ALT (0-50) U/L Alkaline Phosphatase (38-126) U/L Troponin I (0.000-0.034) ng/mL Serum Total Protein (6.3-8.2) g/dL Albumin (3.5-5.0) g/dL Vitamin B12 (239-931) pg/mL Folic Acid (2.76 - >20) ng/mL 07/25/22 07/26/22 07/26/22 Range/Units 23:41 04:18 04:30 WBC 6.2 (4.0-10.5) x10^3/uL RBC 2.75 L (4.1-5.6) x10^6/uL Hgb 7.8 L (12.5-18.0) g/dL Hct 23.9 L (42-50) % MCV 86.9 D (78-100) fL MCH 28.4 (26-32) pg MCHC 32.6 (32-36) g/dL RDW 13.6 (11.5-14.0) % Plt Count 256 (150-450) x10^3/uL MPV 8.2 (7.5-11.0) fL Gran % 72.4 H (36.0-66.0) % Immature Gran % (Auto) 0.5 H (0.00-0.4) % Nucleat RBC Rel Count 0.0 (0.00-0.1) % Eos # (Auto) 0.31 (0-0.5) x10^3/uL Immature Gran # (Auto) 0.03 (0.00-0.03) x10^3u/L Absolute Lymphs (auto) 0.60 L (1.0-4.6) x10^3/uL Absolute Monos (auto) 0.74 (0.0-1.3) x10^3/uL Absolute Nucleated RBC 0.00 (0.00-0.01) x10^3u/L Lymphocytes % 9.8 L (24.0-44.0) % Monocytes % 12.0 (0.0-12.0) % Eosinophils % 5.0 (0.00-5.0) % Basophils % 0.3 (0.0-0.4) % Absolute Granulocytes 4.45 (1.4-6.9) x10^3/uL Basophils # 0.02 (0-0.4) x10^3/uL APTT (25.1-36.5) SECONDS Sodium (137-145) mmol/L Potassium (3.5-5.1) mmol/L Chloride (98-107) mmol/L Carbon Dioxide (22-30) mmol/L Anion Gap (5-15) MEQ/L BUN (9-20) mg/dL Creatinine (0.66-1.25) mg/dL Estimated GFR ML/MIN Glucose (74-106) mg/dL POC Glucometer 142 H 325 H (74 to 106) mg/dL Calcium (8.4-10.2) mg/dL Magnesium (1.6-2.3) mg/dL Iron (49-181) ug/dL Ferritin (17.9-464) ng/mL Total Bilirubin (0.2-1.3) mg/dL AST (17-59) U/L ALT (0-50) U/L Alkaline Phosphatase (38-126) U/L Troponin I (0.000-0.034) ng/mL Serum Total Protein (6.3-8.2) g/dL Albumin (3.5-5.0) g/dL Vitamin B12 (239-931) pg/mL Folic Acid (2.76 - >20) ng/mL 07/26/22 07/26/22 07/26/22 Range/Units 04:30 04:30 04:30 WBC (4.0-10.5) x10^3/uL RBC (4.1-5.6) x10^6/uL Hgb (12.5-18.0) g/dL Hct (42-50) % MCV (78-100) fL MCH (26-32) pg MCHC (32-36) g/dL RDW (11.5-14.0) % Plt Count (150-450) x10^3/uL MPV (7.5-11.0) fL Gran % (36.0-66.0) % Immature Gran % (Auto) (0.00-0.4) % Nucleat RBC Rel Count (0.00-0.1) % Eos # (Auto) (0-0.5) x10^3/uL Immature Gran # (Auto) (0.00-0.03) x10^3u/L Absolute Lymphs (auto) (1.0-4.6) x10^3/uL Absolute Monos (auto) (0.0-1.3) x10^3/uL Absolute Nucleated RBC (0.00-0.01) x10^3u/L Lymphocytes % (24.0-44.0) % Monocytes % (0.0-12.0) % Eosinophils % (0.00-5.0) % Basophils % (0.0-0.4) % Absolute Granulocytes (1.4-6.9) x10^3/uL Basophils # (0-0.4) x10^3/uL APTT 23.5 L (25.1-36.5) SECONDS Sodium 128 L (137-145) mmol/L Potassium 5.4 H D (3.5-5.1) mmol/L Chloride 98 (98-107) mmol/L Carbon Dioxide 30 (22-30) mmol/L Anion Gap 6.1 (5-15) MEQ/L BUN 19 (9-20) mg/dL Creatinine 2.42 H (0.66-1.25) mg/dL Estimated GFR 32.4 ML/MIN Glucose 329 H (74-106) mg/dL POC Glucometer (74 to 106) mg/dL Calcium 7.9 L (8.4-10.2) mg/dL Magnesium 1.7 (1.6-2.3) mg/dL Iron (49-181) ug/dL Ferritin (17.9-464) ng/mL Total Bilirubin 0.40 (0.2-1.3) mg/dL AST 25 (17-59) U/L ALT 14 (0-50) U/L Alkaline Phosphatase 136 H (38-126) U/L Troponin I 0.169 H* (0.000-0.034) ng/mL Serum Total Protein 5.5 L (6.3-8.2) g/dL Albumin 2.5 L (3.5-5.0) g/dL Vitamin B12 (239-931) pg/mL Folic Acid (2.76 - >20) ng/mL 07/26/22 Range/Units 07:23 WBC (4.0-10.5) x10^3/uL RBC (4.1-5.6) x10^6/uL Hgb (12.5-18.0) g/dL Hct (42-50) % MCV (78-100) fL MCH (26-32) pg MCHC (32-36) g/dL RDW (11.5-14.0) % Plt Count (150-450) x10^3/uL MPV (7.5-11.0) fL Gran % (36.0-66.0) % Immature Gran % (Auto) (0.00-0.4) % Nucleat RBC Rel Count (0.00-0.1) % Eos # (Auto) (0-0.5) x10^3/uL Immature Gran # (Auto) (0.00-0.03) x10^3u/L Absolute Lymphs (auto) (1.0-4.6) x10^3/uL Absolute Monos (auto) (0.0-1.3) x10^3/uL Absolute Nucleated RBC (0.00-0.01) x10^3u/L Lymphocytes % (24.0-44.0) % Monocytes % (0.0-12.0) % Eosinophils % (0.00-5.0) % Basophils % (0.0-0.4) % Absolute Granulocytes (1.4-6.9) x10^3/uL Basophils # (0-0.4) x10^3/uL APTT (25.1-36.5) SECONDS Sodium (137-145) mmol/L Potassium (3.5-5.1) mmol/L Chloride (98-107) mmol/L Carbon Dioxide (22-30) mmol/L Anion Gap (5-15) MEQ/L BUN (9-20) mg/dL Creatinine (0.66-1.25) mg/dL Estimated GFR ML/MIN Glucose (74-106) mg/dL POC Glucometer 97 (74 to 106) mg/dL Calcium (8.4-10.2) mg/dL Magnesium (1.6-2.3) mg/dL Iron (49-181) ug/dL Ferritin (17.9-464) ng/mL Total Bilirubin (0.2-1.3) mg/dL AST (17-59) U/L ALT (0-50) U/L Alkaline Phosphatase (38-126) U/L Troponin I (0.000-0.034) ng/mL Serum Total Protein (6.3-8.2) g/dL Albumin (3.5-5.0) g/dL Vitamin B12 (239-931) pg/mL Folic Acid (2.76 - >20) ng/mL Radiology Exams: Radiology Procedures Category Date Time Status BLADDER [US] Urgent Exams 07/25/22 14:55 Completed CHEST 1 VIEW (PORTABLE) Urgent Exams 07/24/22 18:25 Completed ECHO W/2D AND DOPPLER [US] Routine Exams 07/25/22 11:17 Taken Multi-Disciplinary Progress Notes: Multi-Disciplinary Progress Notes 07/25/22 13:11 Case Management Note by Nona Carranza NO CHANGE IN DC PLANS AT THIS TIME Initialized on 07/25/22 13:11 - END OF NOTE Assessment/Plan (1) DKA (diabetic ketoacidosis) Current Visit: Yes Status: Resolved Qualifiers: Diabetes mellitus type: type 1 Diabetes mellitus complication detail: without coma Qualified Code(s): E10.10 - Type 1 diabetes mellitus with ketoacidosis without coma Assessment & Plan: resolved, gap closed and blood sugars are reasonably well controlled. compliance is a problem at home Code(s): E11.10 - TYPE 2 DIABETES MELLITUS WITH KETOACIDOSIS WITHOUT COMA (2) NSTEMI (non-ST elevated myocardial infarction) Current Visit: Yes Status: Acute Assessment & Plan: troponin is trending down, likely secondary to improving renal function. Code(s): I21.4 - NON-ST ELEVATION (NSTEMI) MYOCARDIAL INFARCTION (3) Acute on chronic renal failure Current Visit: No Status: Acute Qualifiers: Acute renal failure type: unspecified Chronic kidney disease stage: stage 5, not on chronic dialysis Qualified Code(s): N17.9 - Acute kidney failure, unspecified; N18.5 - Chronic kidney disease, stage 5 Code(s): N17.9 - ACUTE KIDNEY FAILURE, UNSPECIFIED; N18.9 - CHRONIC KIDNEY DISEASE, UNSPECIFIED (4) RSV (acute bronchiolitis due to respiratory syncytial virus) Current Visit: Yes Status: Acute
[2022-07-26] MEDS: Lantus Insulin SQ SCH (09:06)
[2022-07-26] MEDS: Ecotrin 325 MG PO SCH (09:06)
[2022-07-26] MEDS: Nicoderm CQ 21 MG TOP SCH (09:06)
[2022-07-26] MEDS: COREG 12.5 MG PO SCH ×2 (09:06→20:52)
[2022-07-26] MEDS ORDERED: Catapres TTS-2 PATCH TOP SCH (10:00)
[2022-07-26] MEDS: Sodium Chloride 0.9% W/ 20 mEq KCl/LITER 1,000 ML IV SCH (11:18)
[2022-07-27] MEDS ORDERED: Toprol-Xl 25MG Tablets PO ONE (04:39)
[2022-07-27 05:28] LABS: Absolute Neutrophil Ct (ANC) 4.14 x10^3/uL (1.4-6.9); Basophil (Absolute #) 0.03 x10^3/uL (0-0.4); Eosinophil % 5.9 % (0.00-5.0); Eosinophil (Absolute #) 0.35 x10^3/uL (0-0.5); Hematocrit 28.8 % (42-50); Hemoglobin 9.3 g/dL (12.5-18.0); Lymphocyte (Absolute #) 0.75 x10^3/uL (1.0-4.6); Lymphocytes % 12.7 % (24.0-44.0); Mean Cell Volume 85.5 fL (78-100); Mean Corpuscular Hemoglobin 27.6 pg (26-32); Mean Corpuscular Hgb Concent. 32.3 g/dL (32-36); Mean Platelet Volume 8.4 fL (7.5-11.0); Monocyte (Absolute #) 0.58 x10^3/uL (0.0-1.3); Monocytes % 9.8 % (0.0-12.0); Neutrophil % 70.1 % (36.0-66.0); Platelet Count 327 x10^3/uL (150-450); Red Blood Count 3.37 x10^6/uL (4.1-5.6); Red Cell Distribution Width 13.2 % (11.5-14.0); White Blood Count 5.9 x10^3/uL (4.0-10.5)
[2022-07-27 06:09] LABS: ALBUMIN 3.1 g/dL (3.5-5.0); ANION GAP 8.1 MEQ/L (5-15); BILIRUBIN,TOTAL 0.3 mg/dL (0.2-1.3); Calcium 8.3 mg/dL (8.4-10.2); Creatinine 1 2.16 mg/dL (0.66-1.25); MAGNESIUM 1.9 mg/dL (1.6-2.3); Potassium 4.4 mmol/L (3.5-5.1); Total Protein 6.7 g/dL (6.3-8.2)
[2022-07-27] MEDS ORDERED: NORVASC 5 MG PO ONE (08:24)
--- NOTE | 2022-07-27 08:27 | PCM.NOTE ---
Date and Time: 07/27/22824 Subjective Assessment: bp markedly elevated this am, feels some tightness in the chest. tolerating po with no vomiting Objective Exam General Appearance: no apparent distress Neurologic Exam: alert, oriented x 3 Respiratory Exam: normal breath sounds, lungs clear, No respiratory distress Cardiovascular Exam: regular rate/rhythm, normal heart sounds Gastrointestinal/Abdomen Exam: soft, No tenderness, No mass Extremity Exam: normal inspection, normal range of motion OBJECTIVE DATA Vital Signs: Vital Signs - 24 hr Temp Pulse Resp BP Pulse Ox 07/27/22 07:32 97.1 F 69 18 97 07/27/22 07:20 181/106 07/27/22 06:50 203/108 07/27/22 04:30 97.7 F 81 18 210/110 97 07/26/22 23:35 98.2 F 83 20 190/109 96 07/26/22 20:00 97.8 F 89 18 161/97 96 07/26/22 16:18 160/88 07/26/22 16:00 97.8 F 78 16 161/104 78 L 07/26/22 11:29 97.7 F 79 16 158/87 100 Pain Assessment - Last Documented Pain Intensity 0 Intake and Output: Intake & Output 07/24/22 07/25/22 07/26/22 07/27/22 11:59 11:59 11:59 11:59 Intake Total 3621 3218 2145 2275 Output Total 1300 1650 5000 2800 Balance 2321 1568 -2855 -525 Weight 69.3 kg 70 kg 71.5 kg Lab Results: Lab Results-Last 24 Hours 07/23/22 07/26/22 07/26/22 Range/Units 10:14 11:15 14:17 WBC (4.0-10.5) x10^3/uL RBC (4.1-5.6) x10^6/uL Hgb (12.5-18.0) g/dL Hct (42-50) % MCV (78-100) fL MCH (26-32) pg MCHC (32-36) g/dL RDW (11.5-14.0) % Plt Count (150-450) x10^3/uL MPV (7.5-11.0) fL Gran % (36.0-66.0) % Immature Gran % (Auto) (0.00-0.4) % Nucleat RBC Rel Count (0.00-0.1) % Eos # (Auto) (0-0.5) x10^3/uL Immature Gran # (Auto) (0.00-0.03) x10^3u/L Absolute Lymphs (auto) (1.0-4.6) x10^3/uL Absolute Monos (auto) (0.0-1.3) x10^3/uL Absolute Nucleated RBC (0.00-0.01) x10^3u/L Lymphocytes % (24.0-44.0) % Monocytes % (0.0-12.0) % Eosinophils % (0.00-5.0) % Basophils % (0.0-0.4) % Absolute Granulocytes (1.4-6.9) x10^3/uL Basophils # (0-0.4) x10^3/uL Sodium (137-145) mmol/L Potassium (3.5-5.1) mmol/L Chloride (98-107) mmol/L Carbon Dioxide (22-30) mmol/L Anion Gap (5-15) MEQ/L BUN (9-20) mg/dL Creatinine (0.66-1.25) mg/dL Estimated GFR ML/MIN Glucose (74-106) mg/dL POC Glucometer 284 H 175 H (74 to 106) mg/dL Serum Osmolality 348 H (275-295) mOsmol/kg Calcium (8.4-10.2) mg/dL Magnesium (1.6-2.3) mg/dL Total Bilirubin (0.2-1.3) mg/dL AST (17-59) U/L ALT (0-50) U/L Alkaline Phosphatase (38-126) U/L Troponin I (0.000-0.034) ng/mL Serum Total Protein (6.3-8.2) g/dL Albumin (3.5-5.0) g/dL 07/26/22 07/26/22 07/26/22 Range/Units 15:55 20:54 23:59 WBC (4.0-10.5) x10^3/uL RBC (4.1-5.6) x10^6/uL Hgb (12.5-18.0) g/dL Hct (42-50) % MCV (78-100) fL MCH (26-32) pg MCHC (32-36) g/dL RDW (11.5-14.0) % Plt Count (150-450) x10^3/uL MPV (7.5-11.0) fL Gran % (36.0-66.0) % Immature Gran % (Auto) (0.00-0.4) % Nucleat RBC Rel Count (0.00-0.1) % Eos # (Auto) (0-0.5) x10^3/uL Immature Gran # (Auto) (0.00-0.03) x10^3u/L Absolute Lymphs (auto) (1.0-4.6) x10^3/uL Absolute Monos (auto) (0.0-1.3) x10^3/uL Absolute Nucleated RBC (0.00-0.01) x10^3u/L Lymphocytes % (24.0-44.0) % Monocytes % (0.0-12.0) % Eosinophils % (0.00-5.0) % Basophils % (0.0-0.4) % Absolute Granulocytes (1.4-6.9) x10^3/uL Basophils # (0-0.4) x10^3/uL Sodium (137-145) mmol/L Potassium (3.5-5.1) mmol/L Chloride (98-107) mmol/L Carbon Dioxide (22-30) mmol/L Anion Gap (5-15) MEQ/L BUN (9-20) mg/dL Creatinine (0.66-1.25) mg/dL Estimated GFR ML/MIN Glucose (74-106) mg/dL POC Glucometer 177 H 174 H (74 to 106) mg/dL Serum Osmolality (275-295) mOsmol/kg Calcium (8.4-10.2) mg/dL Magnesium (1.6-2.3) mg/dL Total Bilirubin (0.2-1.3) mg/dL AST (17-59) U/L ALT (0-50) U/L Alkaline Phosphatase (38-126) U/L Troponin I 0.121 H* (0.000-0.034) ng/mL Serum Total Protein (6.3-8.2) g/dL Albumin (3.5-5.0) g/dL 07/27/22 07/27/22 07/27/22 Range/Units 04:40 04:40 04:40 WBC 5.9 (4.0-10.5) x10^3/uL RBC 3.37 L (4.1-5.6) x10^6/uL Hgb 9.3 L (12.5-18.0) g/dL Hct 28.8 L (42-50) % MCV 85.5 (78-100) fL MCH 27.6 (26-32) pg MCHC 32.3 (32-36) g/dL RDW 13.2 (11.5-14.0) % Plt Count 327 (150-450) x10^3/uL MPV 8.4 (7.5-11.0) fL Gran % 70.1 H (36.0-66.0) % Immature Gran % (Auto) 1.0 H (0.00-0.4) % Nucleat RBC Rel Count 0.0 (0.00-0.1) % Eos # (Auto) 0.35 (0-0.5) x10^3/uL Immature Gran # (Auto) 0.06 H (0.00-0.03) x10^3u/L Absolute Lymphs (auto) 0.75 L (1.0-4.6) x10^3/uL Absolute Monos (auto) 0.58 (0.0-1.3) x10^3/uL Absolute Nucleated RBC 0.00 (0.00-0.01) x10^3u/L Lymphocytes % 12.7 L (24.0-44.0) % Monocytes % 9.8 (0.0-12.0) % Eosinophils % 5.9 H (0.00-5.0) % Basophils % 0.5 (0.0-0.4) % Absolute Granulocytes 4.14 (1.4-6.9) x10^3/uL Basophils # 0.03 (0-0.4) x10^3/uL Sodium 129 L (137-145) mmol/L Potassium 4.4 (3.5-5.1) mmol/L Chloride 97 L (98-107) mmol/L Carbon Dioxide 29 (22-30) mmol/L Anion Gap 8.1 (5-15) MEQ/L BUN 26 H (9-20) mg/dL Creatinine 2.16 H (0.66-1.25) mg/dL Estimated GFR 37.0 ML/MIN Glucose 237 H (74-106) mg/dL POC Glucometer (74 to 106) mg/dL Serum Osmolality (275-295) mOsmol/kg Calcium 8.3 L (8.4-10.2) mg/dL Magnesium 1.9 (1.6-2.3) mg/dL Total Bilirubin 0.30 (0.2-1.3) mg/dL AST 21 (17-59) U/L ALT 14 (0-50) U/L Alkaline Phosphatase 177 H (38-126) U/L Troponin I 0.135 H* (0.000-0.034) ng/mL Serum Total Protein 6.7 (6.3-8.2) g/dL Albumin 3.1 L (3.5-5.0) g/dL 07/27/22 Range/Units 06:49 WBC (4.0-10.5) x10^3/uL RBC (4.1-5.6) x10^6/uL Hgb (12.5-18.0) g/dL Hct (42-50) % MCV (78-100) fL MCH (26-32) pg MCHC (32-36) g/dL RDW (11.5-14.0) % Plt Count (150-450) x10^3/uL MPV (7.5-11.0) fL Gran % (36.0-66.0) % Immature Gran % (Auto) (0.00-0.4) % Nucleat RBC Rel Count (0.00-0.1) % Eos # (Auto) (0-0.5) x10^3/uL Immature Gran # (Auto) (0.00-0.03) x10^3u/L Absolute Lymphs (auto) (1.0-4.6) x10^3/uL Absolute Monos (auto) (0.0-1.3) x10^3/uL Absolute Nucleated RBC (0.00-0.01) x10^3u/L Lymphocytes % (24.0-44.0) % Monocytes % (0.0-12.0) % Eosinophils % (0.00-5.0) % Basophils % (0.0-0.4) % Absolute Granulocytes (1.4-6.9) x10^3/uL Basophils # (0-0.4) x10^3/uL Sodium (137-145) mmol/L Potassium (3.5-5.1) mmol/L Chloride (98-107) mmol/L Carbon Dioxide (22-30) mmol/L Anion Gap (5-15) MEQ/L BUN (9-20) mg/dL Creatinine (0.66-1.25) mg/dL Estimated GFR ML/MIN Glucose (74-106) mg/dL POC Glucometer 266 H (74 to 106) mg/dL Serum Osmolality (275-295) mOsmol/kg Calcium (8.4-10.2) mg/dL Magnesium (1.6-2.3) mg/dL Total Bilirubin (0.2-1.3) mg/dL AST (17-59) U/L ALT (0-50) U/L Alkaline Phosphatase (38-126) U/L Troponin I (0.000-0.034) ng/mL Serum Total Protein (6.3-8.2) g/dL Albumin (3.5-5.0) g/dL Radiology Exams: Radiology Procedures Category Date Time Status BLADDER [US] Urgent Exams 07/25/22 14:55 Completed ECHO W/2D AND DOPPLER [US] Routine Exams 07/25/22 11:17 Taken Multi-Disciplinary Progress Notes: Multi-Disciplinary Progress Notes 07/26/22 11:00 Case Management Note by Nona Carranza Addendum entered by Nona Carranza 07/26/22 11:04: ATTEMPTED TO CALL MOTHER REQUESTED TO NOTIFY HER THAT WE WERE ABLE TO GET HHC SET UP. NO ANSWER- LM Original Note: WITH PATIENT BEING INPT- [facility] REPORTS THEY CAN PICK PATIENT UP FOR 30 DAYS POST DC. REFERRAL FAXED AT THIS TIME. THEY WILL NEED NOTIFIED AT TIME OF DC AT [phone]. THEY WILL NEED FAXED THE DC INSTRUCTIONS, DC MED LIST AND DC SUMMARY ( IF AVAILABLE) TO [phone] Initialized on 07/26/22 11:00 - END OF NOTE Assessment/Plan (1) DKA (diabetic ketoacidosis) Current Visit: Yes Status: Resolved Qualifiers: Diabetes mellitus type: type 1 Diabetes mellitus complication detail: without coma Qualified Code(s): E10.10 - Type 1 diabetes mellitus with ketoacidosis without coma Assessment & Plan: resolved Code(s): E11.10 - TYPE 2 DIABETES MELLITUS WITH KETOACIDOSIS WITHOUT COMA (2) NSTEMI (non-ST elevated myocardial infarction) Current Visit: Yes Status: Acute Assessment & Plan: cardiology consulted, echo pending. increased coreg per recommendations. Code(s): I21.4 - NON-ST ELEVATION (NSTEMI) MYOCARDIAL INFARCTION (3) Acute on chronic renal failure Current Visit: No Status: Acute Qualifiers: Acute renal failure type: unspecified Chronic kidney disease stage: stage 5, not on chronic dialysis Qualified Code(s): N17.9 - Acute kidney failure, unspecified; N18.5 - Chronic kidney disease, stage 5 Assessment & Plan: improving at this time Code(s): N17.9 - ACUTE KIDNEY FAILURE, UNSPECIFIED; N18.9 - CHRONIC KIDNEY DISEASE, UNSPECIFIED (4) RSV (acute bronchiolitis due to respiratory syncytial virus) Current Visit: Yes Status: Acute (5) Hypertensive urgency Current Visit: No Status: Acute Assessment & Plan: add norvasc today, continue catapress patch and po coreg (patient unable to swallow pills, crushing to give) Code(s): I16.0 - HYPERTENSIVE URGENCY
[2022-07-27] MEDS: Lantus Insulin SQ SCH (08:53)
[2022-07-27] MEDS: HUMALOG SQ PRN ×3 (08:53→20:37)
[2022-07-27] MEDS: COREG 12.5 MG PO SCH ×2 (08:53→21:55)
[2022-07-27] MEDS: Sodium Chloride 0.9% W/ 20 mEq KCl/LITER 1,000 ML IV SCH (09:07)
[2022-07-27] MEDS: Ecotrin 325 MG PO SCH (09:08)
[2022-07-27] MEDS: NORVASC 5 MG PO SCH (12:35)
[2022-07-27] MEDS: Nicoderm CQ 21 MG TOP SCH (12:40)
[2022-07-27] MEDS: RETACRIT SQ SCH (17:19)
[2022-07-28] MEDS: Sodium Chloride 0.9% W/ 20 mEq KCl/LITER 1,000 ML IV SCH (05:34)
[2022-07-28 06:40] LABS: Absolute Neutrophil Ct (ANC) 5.31 x10^3/uL (1.4-6.9); Basophil (Absolute #) 0.04 x10^3/uL (0-0.4); Eosinophil % 5.5 % (0.00-5.0); Eosinophil (Absolute #) 0.38 x10^3/uL (0-0.5); Hematocrit 30.3 % (42-50); Hemoglobin 10.1 g/dL (12.5-18.0); Lymphocytes % 8.7 % (24.0-44.0); Mean Cell Volume 84.2 fL (78-100); Mean Corpuscular Hemoglobin 28.1 pg (26-32); Mean Corpuscular Hgb Concent. 33.3 g/dL (32-36); Mean Platelet Volume 9.3 fL (7.5-11.0); Monocyte (Absolute #) 0.52 x10^3/uL (0.0-1.3); Monocytes % 7.5 % (0.0-12.0); Neutrophil % 76.5 % (36.0-66.0); Platelet Count 300 x10^3/uL (150-450); Red Cell Distribution Width 13.3 % (11.5-14.0); White Blood Count 6.9 x10^3/uL (4.0-10.5)
[2022-07-28 07:15] LABS: Calcium 8.4 mg/dL (8.4-10.2); Creatinine 1 2.02 mg/dL (0.66-1.25); EST GLOMERULAR FILTRATION RATE 39.9 ML/MIN; Potassium 4.8 mmol/L (3.5-5.1)
[2022-07-28] MEDS: HUMALOG SQ PRN ×3 (08:32→21:39)
[2022-07-28] MEDS: Ecotrin 325 MG PO SCH ×2 (08:32→08:42)
[2022-07-28] MEDS: Lantus Insulin SQ SCH (08:32)
[2022-07-28] MEDS: COREG 12.5 MG PO SCH (08:32)
[2022-07-28] MEDS: NORVASC 5 MG PO SCH (08:32)
[2022-07-28] MEDS: Nicoderm CQ 21 MG TOP SCH ×2 (08:33→08:42)
--- NOTE | 2022-07-28 10:04 | PCM.NOTE ---
Date and Time: 07/28/22 1001 Subjective Assessment: doing little better - Review of Systems Constitutional: No Fever, No Chills Eyes: No Symptoms Ears, Nose, & Throat: No Symptoms Respiratory: No Cough, No Short Of Breath Cardiac: No Chest Pain, No Edema, No Syncope Abdominal/Gastrointestinal: No Abdominal Pain, No Nausea, No Vomiting, No Diarrhea Genitourinary Symptoms: No Dysuria Musculoskeletal: No Back Pain, No Neck Pain Skin: No Rash Neurological: No Dizziness, No Focal Weakness, No Sensory Changes Psychological: No Symptoms Endocrine: No Symptoms Hematologic/Lymphatic: No Symptoms Immunological/Allergic: No Symptoms Objective Exam General Appearance: no apparent distress, alert Neurologic Exam: alert, oriented x 3, cooperative, normal mood/affect, nml cerebellar function, sensation nml, No motor deficits Skin Exam: normal color, warm, dry Eye Exam: PERRL, EOMI, eyes nml inspection Ears, Nose, Throat Exam: normal ENT inspection, pharynx normal, moist mucous membranes Neck Exam: normal inspection, non-tender, supple, full range of motion Respiratory Exam: diminished breath sounds, No respiratory distress Cardiovascular Exam: regular rate/rhythm, normal heart sounds Gastrointestinal/Abdomen Exam: soft, No tenderness, No mass Extremity Exam: normal inspection, normal range of motion Back Exam: normal inspection, normal range of motion, No CVA tenderness, No vertebral tenderness Male Genitalia Exam: deferred Rectal Exam: deferred OBJECTIVE DATA Vital Signs: Vital Signs - 24 hr Temp Pulse Resp BP Pulse Ox 07/28/22 07:27 98.3 F 72 16 192/106 97 07/28/22 04:00 96.6 F 81 15 177/107 94 L 07/28/22 00:00 97.7 F 71 18 127/78 96 07/27/22 20:00 97.5 F 81 21 150/88 95 07/27/22 15:45 97.5 F 79 13 156/93 95 07/27/22 11:23 97.5 F 75 19 167/95 96 Pain Assessment - Last Documented Pain Intensity 0 Intake and Output: Intake & Output 07/25/22 07/26/22 07/27/22 07/28/22 11:59 11:59 11:59 11:59 Intake Total 8181 214 2275 2282 Output Total 3620 4758 2804 1676 Balance 2431 -5647 -810 -393 Weight 70 kg 71.5 kg 71.7 kg 71.8 kg Lab Results: Lab Results-Last 24 Hours 07/27/22 07/27/22 07/27/22 Range/Units 11:16 16:45 20:30 WBC (4.0-10.5) x10^3/uL RBC (4.1-5.6) x10^6/uL Hgb (12.5-18.0) g/dL Hct (42-50) % MCV (78-100) fL MCH (26-32) pg MCHC (32-36) g/dL RDW (11.5-14.0) % Plt Count (150-450) x10^3/uL MPV (7.5-11.0) fL Gran % (36.0-66.0) % Immature Gran % (Auto) (0.00-0.4) % Nucleat RBC Rel Count (0.00-0.1) % Eos # (Auto) (0-0.5) x10^3/uL Immature Gran # (Auto) (0.00-0.03) x10^3u/L Absolute Lymphs (auto) (1.0-4.6) x10^3/uL Absolute Monos (auto) (0.0-1.3) x10^3/uL Absolute Nucleated RBC (0.00-0.01) x10^3u/L Lymphocytes % (24.0-44.0) % Monocytes % (0.0-12.0) % Eosinophils % (0.00-5.0) % Basophils % (0.0-0.4) % Absolute Granulocytes (1.4-6.9) x10^3/uL Basophils # (0-0.4) x10^3/uL Sodium (137-145) mmol/L Potassium (3.5-5.1) mmol/L Chloride (98-107) mmol/L Carbon Dioxide (22-30) mmol/L Anion Gap (5-15) MEQ/L BUN (9-20) mg/dL Creatinine (0.66-1.25) mg/dL Estimated GFR ML/MIN Glucose (74-106) mg/dL POC Glucometer 249 H 179 H 284 H (74 to 106) mg/dL Calcium (8.4-10.2) mg/dL Troponin I (0.000-0.034) ng/mL 07/28/22 07/28/22 07/28/22 Range/Units 06:00 06:00 06:00 WBC 6.9 (4.0-10.5) x10^3/uL RBC 3.60 L (4.1-5.6) x10^6/uL Hgb 10.1 L (12.5-18.0) g/dL Hct 30.3 L (42-50) % MCV 84.2 (78-100) fL MCH 28.1 (26-32) pg MCHC 33.3 (32-36) g/dL RDW 13.3 (11.5-14.0) % Plt Count 300 (150-450) x10^3/uL MPV 9.3 (7.5-11.0) fL Gran % 76.5 H (36.0-66.0) % Immature Gran % (Auto) 1.2 H (0.00-0.4) % Nucleat RBC Rel Count 0.0 (0.00-0.1) % Eos # (Auto) 0.38 (0-0.5) x10^3/uL Immature Gran # (Auto) 0.08 H (0.00-0.03) x10^3u/L Absolute Lymphs (auto) 0.60 L (1.0-4.6) x10^3/uL Absolute Monos (auto) 0.52 (0.0-1.3) x10^3/uL Absolute Nucleated RBC 0.00 (0.00-0.01) x10^3u/L Lymphocytes % 8.7 L (24.0-44.0) % Monocytes % 7.5 (0.0-12.0) % Eosinophils % 5.5 H (0.00-5.0) % Basophils % 0.6 (0.0-0.4) % Absolute Granulocytes 5.31 (1.4-6.9) x10^3/uL Basophils # 0.04 (0-0.4) x10^3/uL Sodium 128 L (137-145) mmol/L Potassium 4.8 (3.5-5.1) mmol/L Chloride 98 (98-107) mmol/L Carbon Dioxide 24 (22-30) mmol/L Anion Gap 11.0 (5-15) MEQ/L BUN 29 H (9-20) mg/dL Creatinine 2.02 H (0.66-1.25) mg/dL Estimated GFR 39.9 ML/MIN Glucose 186 H (74-106) mg/dL POC Glucometer (74 to 106) mg/dL Calcium 8.4 (8.4-10.2) mg/dL Troponin I 0.091 H* (0.000-0.034) ng/mL 07/28/22 Range/Units 07:45 WBC (4.0-10.5) x10^3/uL RBC (4.1-5.6) x10^6/uL Hgb (12.5-18.0) g/dL Hct (42-50) % MCV (78-100) fL MCH (26-32) pg MCHC (32-36) g/dL RDW (11.5-14.0) % Plt Count (150-450) x10^3/uL MPV (7.5-11.0) fL Gran % (36.0-66.0) % Immature Gran % (Auto) (0.00-0.4) % Nucleat RBC Rel Count (0.00-0.1) % Eos # (Auto) (0-0.5) x10^3/uL Immature Gran # (Auto) (0.00-0.03) x10^3u/L Absolute Lymphs (auto) (1.0-4.6) x10^3/uL Absolute Monos (auto) (0.0-1.3) x10^3/uL Absolute Nucleated RBC (0.00-0.01) x10^3u/L Lymphocytes % (24.0-44.0) % Monocytes % (0.0-12.0) % Eosinophils % (0.00-5.0) % Basophils % (0.0-0.4) % Absolute Granulocytes (1.4-6.9) x10^3/uL Basophils # (0-0.4) x10^3/uL Sodium (137-145) mmol/L Potassium (3.5-5.1) mmol/L Chloride (98-107) mmol/L Carbon Dioxide (22-30) mmol/L Anion Gap (5-15) MEQ/L BUN (9-20) mg/dL Creatinine (0.66-1.25) mg/dL Estimated GFR ML/MIN Glucose (74-106) mg/dL POC Glucometer 236 H (74 to 106) mg/dL Calcium (8.4-10.2) mg/dL Troponin I (0.000-0.034) ng/mL Multi-Disciplinary Progress Notes: Multi-Disciplinary Progress Notes 07/27/22 10:58 Case Management Note by Nona Carranza S/W PATIENT AGAIN THIS AM- HE PLANS TO RETURN HOME TO HIS PLF AT TIME OF DC. [facility] HAS BEEN SET UP. ACO HAS ALSO BEEN CONSULTED AND WILL FOLLOWUP WITH PATIENT. HE REPORTS HE HAS ALL OF HIS DIABETIC SUPPLIES AT HOME. Initialized on 07/27/22 10:58 - END OF NOTE Assessment/Plan (1) NSTEMI (non-ST elevated myocardial infarction) Current Visit: Yes Status: Acute Assessment & Plan: Chief Complaint Diagnosis DKA, NSTEMI Allergies Allergy/AdvReac Type Severity Reaction Status Date / Time No Known Drug Allergies Allergy Verified 07/15/22 15:53 Vital Signs (Last 24 hours) Temp Pulse Resp BP Pulse Ox 07/28/22 07:27 98.3 F 72 16 192/106 97 07/28/22 04:00 96.6 F 81 15 177/107 94 L 07/28/22 00:00 97.7 F 71 18 127/78 96 07/27/22 20:00 97.5 F 81 21 150/88 95 07/27/22 15:45 97.5 F 79 13 156/93 95 07/27/22 11:23 97.5 F 75 19 167/95 96 Current Medications Generic Name Dose Route Start Last Admin Trade Name Freq PRN Reason Stop Dose Admin Acetaminophen 650 mg 07/23/22 22:00 Acetaminophen 325 Mg Tablet PO 08/22/22 21:59 Q4H PRN PRN PAIN AND/OR FEVER Al Hydrox/Mg Hydrox/Simethicone 30 ml 07/23/22 22:00 Mag Hydrox/Al Hydrox/Simeth 30 Ml Udcup PO 08/22/22 21:59 Q4H PRN PRN INDIGESTION Amlodipine Besylate 5 mg 07/27/22 10:00 07/28/22 08:32 Amlodipine Besylate 5 Mg Tablet PO 08/26/22 09:59 5 mg QAM XIN Administration Aspirin 325 mg 07/24/22 10:00 07/28/22 08:42 Aspirin 325 Mg Tablet.Ec PO 08/23/22 09:59 Not Given DAILY XIN Carvedilol 12.5 mg 07/25/22 10:00 07/28/22 08:32 Carvedilol 12.5 Mg Tablet PO 08/24/22 09:59 12.5 mg BID XIN Administration Clonidine HCl 0.2 mg 07/26/22 10:00 07/26/22 09:05 Clonidine Hcl 0.2 Mg Patch TOP 08/25/22 09:59 0.2 mg Q7D XIN Administration Epoetin Alejo 10,000 unit 07/25/22 16:00 07/27/22 17:19 Epoetin Alejo-Epbx 10,000 Unit/Ml Vial SQ 08/24/22 15:59 10,000 unit MoWeFr XIN Administration Potassium Chloride/Sodium Chloride 1,000 mls @ 50 mls/hr 07/25/22 15:30 07/28/22 05:34 Sodium Chloride 0.9% W/ 20 Meq Kcl/Liter IV 08/24/22 15:29 50 mls/hr .Q20H XIN Administration Insulin Glargine 10 unit 07/25/22 10:00 07/28/22 08:32 Insulin Glargine 1 Unit SQ 08/24/22 09:59 10 unit DAILY XIN Administration Insulin Human Lispro 0 unit 07/25/22 08:34 07/28/22 08:32 Insulin Lispro 1 Unit SQ 08/24/22 08:33 5 unit UD PRN Administration HYPERGLYCEMIA Magnesium Hydroxide 30 - 60 ml 07/23/22 22:00 07/27/22 01:13 Magnesium Hydroxide 30 Ml Udcup PO 08/22/22 21:59 30 ml QDP PRN Administration CONSTIPATION Nicotine 21 mg 07/24/22 10:00 07/28/22 08:42 Nicotine 21 Mg/Patch Patch TOP 08/23/22 09:59 Not Given Q24H10 XIN Ondansetron HCl 4 mg 07/23/22 22:00 07/26/22 16:18 Ondansetron Hcl 4 Mg/2 Ml Vial IV 08/22/22 21:59 4 mg Q4H PRN PRN Administration NAUSEA/VOMITING Ondansetron HCl 4 mg 07/24/22 09:15 Zofran 4 Mg/Udtablet Orally Disintegrating PO 08/23/22 09:14 Q6H PRN PRN NAUSEA Senna/Docusate Sodium 2 udtab 07/23/22 22:00 Senna/Docusate Sodium 1 Udtab Tablet PO 08/22/22 21:59 BID PRN PRN CONSTIPATION Discontinued Medications Generic Name Dose Route Start Last Admin Trade Name Freq PRN Reason Stop Dose Admin Amlodipine Besylate 5 mg 07/27/22 08:24 07/27/22 08:53 Amlodipine Besylate 5 Mg Tablet PO 07/27/22 08:25 5 mg STAT ONE Administration Aspirin 324 mg 07/23/22 17:49 07/23/22 18:32 Aspirin 81 Mg Tab.Chew PO 07/23/22 17:50 324 mg STAT ONE Administration Carvedilol 6.25 mg 07/24/22 10:00 07/24/22 21:56 Carvedilol 6.25 Mg Tablet PO 08/23/22 09:59 Not Given BID XIN Diphenhydramine HCl 50 mg 07/24/22 18:50 07/24/22 18:54 Diphenhydramine Hcl 50 Mg/Ml Vial IV 07/24/22 18:51 50 mg STAT ONE Administration Heparin Sodium (Beef Lung) 3,900 unit 07/23/22 18:57 07/23/22 19:01 Heparin 5000 Units/0.5 Ml 5,000 Unit/0.5 Ml Syr 60 unit/kg (3900 unit) 07/23/22 18:58 3,900 unit IV Administration STAT STA Heparin Sodium (Beef Lung) Confirm 07/23/22 18:59 Heparin 5000 Units/0.5 Ml 5,000 Unit/0.5 Ml Syr Administered 07/23/22 19:00 Dose 5,000 unit .ROUTE .STK-MED ONE Sodium Chloride 1,000 mls @ 999 mls/hr 07/23/22 06:29 07/23/22 09:01 Sodium Chloride 0.9% 1000 Ml IV 07/23/22 07:29 Infused .Q1H1M STA Infusion Sodium Chloride 1,000 mls @ 999 mls/hr 07/23/22 06:49 07/23/22 09:02 Sodium Chloride 0.9% 1000 Ml IV 07/23/22 07:49 Infused .Q1H1M STA Infusion Sodium Chloride Confirm 07/23/22 07:37 Sodium Chloride 0.9% 1000 Ml Administered 07/23/22 07:38 Dose 2,000 mls @ ud .ROUTE .STK-MED ONE Insulin Human Regular 100 unit 100 mls @ 6.464 mls/hr 07/23/22 10:25 07/24/22 09:28 / Sodium Chloride IV 08/22/22 10:24 0 unit/kg/hr .[id number] PRN 0 mls/hr DKA/HYPERGLYCEMIA Titration Protocol 0.1 UNIT/KG/HR Lactated Ringer's 1,000 mls @ 100 mls/hr 07/23/22 15:30 07/24/22 03:46 Lactated Ringers IV 08/22/22 15:29 100 mls/hr .Q10H XIN Administration Heparin Sodium/Dextrose 25,000 units in 250 mls @ 7.756 mls/hr 07/23/22 19:00 07/24/22 09:03 Heparin 25,000 Units/D5w: Use Order Set Donta IV 08/22/22 18:59 49.51 units/kg/hr .Q24H XIN 32 mls/hr Titration Protocol 12 UNITS/KG/HR Potassium Chloride 20 meq/ 1,010 mls @ 150 mls/hr 07/23/22 20:00 07/24/22 05:02 Dextrose/Sodium Chloride IV 08/22/22 19:59 Not Given .Q6H44M XIN Potassium Chloride/Dextrose/Sod Cl Confirm 07/23/22 21:00 D5w/0.45ns W/ 20meq Kcl 1000 Ml Administered 07/23/22 21:01 Dose 1,000 mls @ ud IV .STK-MED ONE Potassium Chloride/Dextrose/Sod Cl Confirm 07/24/22 04:20 D5w/0.45ns W/ 20meq Kcl 1000 Ml Administered 07/24/22 04:21 Dose 1,000 mls @ ud IV .STK-MED ONE Potassium Chloride/Dextrose/Sod Cl 1,000 mls @ 150 mls/hr 07/24/22 04:30 07/25/22 10:26 D5w/0.45ns W/ 20meq Kcl 1000 Ml IV 08/23/22 04:29 Not Given .Q6H40M XIN Heparin Sodium/Dextrose 25,000 units in 250 mls @ 10 mls/hr 07/24/22 10:30 07/25/22 08:37 Heparin 25,000 Units/D5w: Use Order Set Donta IV 08/23/22 10:29 0 units/hr .Q24H XIN 0 mls/hr Titration Protocol 1,000 UNITS/HR Azithromycin 500 mg in 250 mls @ 250 mls/hr 07/24/22 18:02 07/24/22 18:21 Zithromax 500 Mg/ 250 Ml Nacl Premix IV 08/23/22 18:01 250 mls/hr Q24H10 XIN Administration Azithromycin Confirm 07/24/22 18:19 Zithromax 500 Mg/ 250 Ml Nacl Premix Administered 07/24/22 18:20 Dose 500 mg in 250 mls @ ud IV .STK-MED ONE Potassium Chloride/Sodium Chloride 1,000 mls @ 50 mls/hr 07/25/22 08:45 07/25/22 08:45 Sodium Chloride 0.45% W/ 20 Meq Kcl IV 08/24/22 08:44 100 mls/hr .Q20H XIN Administration Insulin Human Lispro 0 unit 07/24/22 10:00 07/25/22 00:47 Insulin Lispro 1 Unit SQ 08/23/22 09:59 6 unit UD PRN Administration HYPERGLYCEMIA Labetalol HCl 10 mg 07/24/22 22:00 07/25/22 06:29 Labetalol Hcl 20 Mg/4 Ml Disp.Syringe IV 08/23/22 21:59 10 mg Q8H XIN Administration Metoprolol Succinate 25 mg 07/27/22 04:39 07/27/22 04:43 Metoprolol Succinate 25 Mg Xl Tab PO 07/27/22 04:40 25 mg STAT ONE Administration Nitroglycerin 1 gm 07/23/22 20:46 07/23/22 21:12 Nitroglycerin 1 Gm Packet TOP 07/23/22 20:47 1 gm STAT ONE Administration Nitroglycerin Confirm 07/23/22 20:57 Nitroglycerin 1 Gm Packet Administered 07/23/22 20:58 Dose 1 gm .ROUTE .STK-MED ONE Nitroglycerin 1 gm 07/23/22 22:00 07/26/22 05:46 Nitroglycerin 1 Gm Packet TOP 08/22/22 21:59 Not Given Q8HT XIN Ondansetron HCl 4 mg 07/23/22 06:29 07/23/22 07:38 Ondansetron Hcl 4 Mg/2 Ml Vial IV 07/23/22 06:30 4 mg STAT ONE Administration Ondansetron HCl Confirm 07/23/22 07:37 Ondansetron Hcl 4 Mg/2 Ml Vial Administered 07/23/22 07:38 Dose 4 mg .ROUTE .STK-MED ONE Ondansetron HCl 4 mg 07/23/22 08:39 07/23/22 09:01 Ondansetron Hcl 4 Mg/2 Ml Vial IV 07/23/22 08:40 4 mg STAT ONE Administration Ondansetron HCl Confirm 07/23/22 08:59 Ondansetron Hcl 4 Mg/2 Ml Vial Administered 07/23/22 09:00 Dose 4 mg .ROUTE .STK-MED ONE Ondansetron HCl Confirm 07/23/22 21:30 Ondansetron Hcl 4 Mg/2 Ml Vial Administered 07/23/22 21:31 Dose 4 mg .ROUTE .STK-MED ONE Ondansetron HCl 4 mg 07/23/22 21:39 07/23/22 21:40 Ondansetron Hcl 4 Mg/2 Ml Vial IV 07/23/22 21:40 4 mg STAT ONE Administration Pantoprazole Sodium 40 mg 07/23/22 06:49 07/23/22 07:38 Pantoprazole 40 Mg Vial IV 07/23/22 06:50 40 mg STAT ONE Administration Pantoprazole Sodium Confirm 07/23/22 07:37 Pantoprazole 40 Mg Vial Administered 07/23/22 07:38 Dose 40 mg IV .STK-MED ONE Intake & Output (Last 24 hours) 07/25/22 07/26/22 07/27/22 07/28/22 11:59 11:59 11:59 11:59 Intake Total 3210 2145 2275 2282 Output Total 1650 1099 2800 2677 Balance 1568 -2855 -525 -393 Weight 70 kg 71.5 kg 71.7 kg 71.8 kg Microbiology Results (Last 24 hours) 07/23/22 07:41 Blood Blood Culture Gram Stain - Final Not Reportable 07/23/22 07:41 Blood Blood Culture - Final NO GROWTH 07/23/22 07:56 Blood Blood Culture Gram Stain - Final Not Reportable 07/23/22 07:56 Blood Blood Culture - Final NO GROWTH Laboratory Results (Last 24 hours) 07/28/22 07/28/22 07/28/22 07:45 06:00 06:00 WBC RBC Hgb Hct MCV MCH MCHC RDW Plt Count MPV Gran % Immature Gran % (Auto) Nucleat RBC Rel Count Eos # (Auto) Immature Gran # (Auto) Absolute Lymphs (auto) Absolute Monos (auto) Absolute Nucleated RBC Lymphocytes % Monocytes % Eosinophils % Basophils % Absolute Granulocytes Basophils # Sodium 128 L Potassium 4.8 Chloride 98 Carbon Dioxide 24 Anion Gap 11.0 BUN 29 H Creatinine 2.02 H Estimated GFR 39.9 Glucose 186 H POC Glucometer 236 H Calcium 8.4 Troponin I 0.091 H* 07/28/22 07/27/22 07/27/22 06:00 20:30 16:45 WBC 6.9 RBC 3.60 L Hgb 10.1 L Hct 30.3 L MCV 84.2 MCH 28.1 MCHC 33.3 RDW 13.3 Plt Count 300 MPV 9.3 Gran % 76.5 H Immature Gran % (Auto) 1.2 H Nucleat RBC Rel Count 0.0 Eos # (Auto) 0.38 Immature Gran # (Auto) 0.08 H Absolute Lymphs (auto) 0.60 L Absolute Monos (auto) 0.52 Absolute Nucleated RBC 0.00 Lymphocytes % 8.7 L Monocytes % 7.5 Eosinophils % 5.5 H Basophils % 0.6 Absolute Granulocytes 5.31 Basophils # 0.04 Sodium Potassium Chloride Carbon Dioxide Anion Gap BUN Creatinine Estimated GFR Glucose POC Glucometer 284 H 179 H Calcium Troponin I 07/27/22 11:16 WBC RBC Hgb Hct MCV MCH MCHC RDW Plt Count MPV Gran % Immature Gran % (Auto) Nucleat RBC Rel Count Eos # (Auto) Immature Gran # (Auto) Absolute Lymphs (auto) Absolute Monos (auto) Absolute Nucleated RBC Lymphocytes % Monocytes % Eosinophils % Basophils % Absolute Granulocytes Basophils # Sodium Potassium Chloride Carbon Dioxide Anion Gap BUN Creatinine Estimated GFR Glucose POC Glucometer 249 H Calcium Troponin I Orders (Last 24 hours) Category Date Time Status BMP AM.LAB Lab 07/28/22 06:00 Completed CBC W DIFF AM.LAB Lab 07/28/22 06:00 Completed POCT GLUCOSE Stat Lab 07/27/22 11:16 Completed POCT GLUCOSE Stat Lab 07/27/22 16:45 Completed POCT GLUCOSE Stat Lab 07/27/22 20:30 Completed POCT GLUCOSE Stat Lab 07/28/22 07:45 Completed TROPONIN AM.LAB Lab 07/28/22 06:00 Completed Amlodipine Besylate 5 mg [Norvasc 5 mg] Med 07/27/22 10:00 Active 5 mg PO QAM Patient Care Notes (Last 24 hours) 07/28/22 04:24 SBAR Note by Fany Singh SITUATION I am calling about ANALIA BONNER the patient's code status is Full Code The problem I am calling about is: pt 0400 BP 177/107 ASSESSMENT RECOMMENDATION Physician notified at 0424 New Orders received: no new orders received Vital Signs (Last 4 hours) Temp Pulse Resp BP Pulse Ox 07/28/22 04:00 96.6 F 81 15 177/107 94 L Diagnois, Code Status Date of Arrival on Unit 07/23/22 Admitted From Emergency Dept Diagnosis DKA, NSTEMI Resucitation Status Full Code Intake and Output 12 Hours 07/27/22 07/28/22 18:59 06:59 Intake Total 1160 Output Total 475 2200 Balance -475 -1040 Intake: Intake, Oral Amount 1160 Output: Output, Urine Amount 475 2200 Physical Assessment Anxiety Level Calm,Sleeping Mental Status Alert Patient Orientation Person,Place,Time Coma Scale Total 15 Breath Sounds [Anterior/ Clear,Diminished Posterior Bilateral Throughout ] Cardiac Rhythm-SCCH Sinus Rhythm Change from Baseline: No Bowel Sounds [All Quadrants] Present Abdomen Description Soft,Non-Tender Date Giron Cath Inserted . Urine Appearance Clear Urine Color Pale,Yellow Skin Color Normal for Race Skin Temperature Warm Pain Scale (Last 12 Hours) Pain Intensity 0 Pain Intensity 0 Pain Intensity 0 PAST MEDICAL HISTORY Neurological History No Pertinent History ENT History No Pertinent History Endocrine Medical History Diabetes Type I Respiratory History No Pertinent History Cardiac History Hypertension GI Medical History No Pertinent History History No Pertinent History Pyscho-Social History Anxiety,Depression Communicable Disease No Pertinent History Comment DKA Diabetic (Last 12 Hours) Time 19:00 Time 20:43 POCT Glucose (LAST VALUE) 284 mg/dL (74 to 106) H POCT Glucose (LAST VALUE) 284 mg/dL (74 to 106) H POCT Glucose (LAST VALUE) 179 mg/dL (74 to 106) H POCT Glucose (LAST VALUE) 179 mg/dL (74 to 106) H Lab Results (Last 12 Hours) 07/27/22 07/27/22 Range/Units 20:30 16:45 POC Glucometer 284 H 179 H (74 to 106) mg/dL Orders (Last 12 Hours) Category Date Time Status BMP AM.LAB Lab 07/28/22 04:00 Ordered CBC W DIFF AM.LAB Lab 07/28/22 04:00 Ordered TROPONIN AM.LAB Lab 07/28/22 04:00 Ordered Active Visit Medications Generic Name Dose Route Start Last Admin Trade Name Freq PRN Reason Stop Dose Admin Acetaminophen 650 mg 07/23/22 22:00 Acetaminophen 325 Mg Tablet PO 08/22/22 21:59 Q4H PRN PRN PAIN AND/OR FEVER Al Hydrox/Mg Hydrox/Simethicone 30 ml 07/23/22 22:00 Mag Hydrox/Al Hydrox/Simeth 30 Ml Udcup PO 08/22/22 21:59 Q4H PRN PRN INDIGESTION Amlodipine Besylate 5 mg 07/27/22 10:00 07/27/22 12:35 Amlodipine Besylate 5 Mg Tablet PO 08/26/22 09:59 5 mg QAM XIN Administration Aspirin 325 mg 07/24/22 10:00 07/27/22 09:08 Aspirin 325 Mg Tablet.Ec PO 08/23/22 09:59 Not Given DAILY XIN Carvedilol 12.5 mg 07/25/22 10:00 07/27/22 21:55 Carvedilol 12.5 Mg Tablet PO 08/24/22 09:59 12.5 mg BID XIN Administration Clonidine HCl 0.2 mg 07/26/22 10:00 07/26/22 09:05 Clonidine Hcl 0.2 Mg Patch TOP 08/25/22 09:59 0.2 mg Q7D XIN Administration Epoetin Alejo 10,000 unit 07/25/22 16:00 07/27/22 17:19 Epoetin Alejo-Epbx 10,000 Unit/Ml Vial SQ 08/24/22 15:59 10,000 unit MoWeFr XIN Administration Potassium Chloride/Sodium Chloride 1,000 mls @ 50 mls/hr 07/25/22 15:30 07/27/22 09:07 Sodium Chloride 0.9% W/ 20 Meq Kcl/Liter IV 08/24/22 15:29 50 mls/hr .Q20H XIN Administration Insulin Glargine 10 unit 07/25/22 10:00 07/27/22 08:53 Insulin Glargine 1 Unit SQ 08/24/22 09:59 10 unit DAILY XIN Administration Insulin Human Lispro 0 unit 07/25/22 08:34 07/27/22 20:37 Insulin Lispro 1 Unit SQ 08/24/22 08:33 7 unit UD PRN Administration HYPERGLYCEMIA Magnesium Hydroxide 30 - 60 ml 07/23/22 22:00 07/27/22 01:13 Magnesium Hydroxide 30 Ml Udcup PO 08/22/22 21:59 30 ml QDP PRN Administration CONSTIPATION Nicotine 21 mg 07/24/22 10:00 07/27/22 12:40 Nicotine 21 Mg/Patch Patch TOP 08/23/22 09:59 Not Given Q24H10 XIN Ondansetron HCl 4 mg 07/23/22 22:00 07/26/22 16:18 Ondansetron Hcl 4 Mg/2 Ml Vial IV 08/22/22 21:59 4 mg Q4H PRN PRN Administration NAUSEA/VOMITING Ondansetron HCl 4 mg 07/24/22 09:15 Zofran 4 Mg/Udtablet Orally Disintegrating PO 08/23/22 09:14 Q6H PRN PRN NAUSEA Senna/Docusate Sodium 2 udtab 07/23/22 22:00 Senna/Docusate Sodium 1 Udtab Tablet PO 08/22/22 21:59 BID PRN PRN CONSTIPATION Initialized on 07/28/22 04:24 - END OF NOTE 07/27/22 10:58 Case Management Note by Nona Carranza S/W PATIENT AGAIN THIS AM- HE PLANS TO RETURN HOME TO HIS PLF AT TIME OF DC. [facility] C HAS BEEN SET UP. ACO HAS ALSO BEEN CONSULTED AND WILL FOLLOWUP WITH PATIENT. HE REPORTS HE HAS ALL OF HIS DIABETIC SUPPLIES AT HOME. Initialized on 07/27/22 10:58 - END OF NOTE Code(s): I21.4 - NON-ST ELEVATION (NSTEMI) MYOCARDIAL INFARCTION (2) RSV (acute bronchiolitis due to respiratory syncytial virus) Current Visit: Yes Status: Acute (3) Chronic renal insufficiency Current Visit: Yes Status: Chronic Qualifiers: Code(s): N18.9 - CHRONIC KIDNEY DISEASE, UNSPECIFIED
[2022-07-28] MEDS ORDERED: NORVASC 5 MG PO ONE (13:49)
[2022-07-28] MEDS ORDERED: COREG 12.5 MG PO ONE (13:50)
[2022-07-28] MEDS: Apresoline 25 MG TABLET PO SCH ×2 (15:16→22:00)
[2022-07-29] MEDS: Sodium Chloride 0.9% W/ 20 mEq KCl/LITER 1,000 ML IV SCH (01:44)
[2022-07-29 06:17] LABS: Hemoglobin 9.9 g/dL (12.5-18.0); Mean Cell Volume 86.1 fL (78-100); Mean Corpuscular Hemoglobin 27.5 pg (26-32); Mean Corpuscular Hgb Concent. 31.9 g/dL (32-36); Mean Platelet Volume 8.5 fL (7.5-11.0); Platelet Count 401 x10^3/uL (150-450); Red Cell Distribution Width 13.2 % (11.5-14.0); White Blood Count 7.2 x10^3/uL (4.0-10.5)
[2022-07-29 06:52] LABS: ALBUMIN 3.3 g/dL (3.5-5.0); ANION GAP 12.4 MEQ/L (5-15); BILIRUBIN,TOTAL 0.4 mg/dL (0.2-1.3); Calcium 8.7 mg/dL (8.4-10.2); Creatinine 1 1.98 mg/dL (0.66-1.25); EST GLOMERULAR FILTRATION RATE 40.9 ML/MIN; Potassium 4.9 mmol/L (3.5-5.1); Total Protein 7.1 g/dL (6.3-8.2)
[2022-07-29] MEDS ORDERED: NORVASC 5 MG PO SCH (10:00)
[2022-07-29] MEDS ORDERED: COREG 12.5 MG PO SCH (10:00)
--- NOTE | 2022-07-29 10:00 | PCM.DS ---
Discharge Summary Date of Admission: 07/24/22 08:15 Admitting Physician: VALENTINA STARKS Consults: Consults on Case 07/24/22 08:54 Consult Cardiology ROUTINE 07/25/22 08:38 Consult Nephrology ROUTINE Primary Care Provider: VALENTINA STARKS Allergies Allergies No Known Drug Allergies Allergy (Verified 07/15/22 15:53) Hospital Summary - Hospital Course Hospital Course: Chief Complaint Diagnosis DKA, NSTEMI Allergies Allergy/AdvReac Type Severity Reaction Status Date / Time No Known Drug Allergies Allergy Verified 07/15/22 15:53 Vital Signs (Last 24 hours) Temp Pulse Resp BP Pulse Ox 07/29/22 07:51 98.2 F 84 18 161/94 96 07/29/22 03:45 97.3 F 74 16 174/95 96 07/28/22 23:17 97.6 F 86 16 177/96 97 07/28/22 20:00 97.7 F 78 16 105/58 95 07/28/22 16:00 98.0 F 81 16 202/121 95 07/28/22 11:56 97.9 F 73 16 210/127 96 07/28/22 10:46 100 Current Medications Generic Name Dose Route Start Last Admin Trade Name Freq PRN Reason Stop Dose Admin Acetaminophen 650 mg 07/23/22 22:00 Acetaminophen 325 Mg Tablet PO 08/22/22 21:59 Q4H PRN PRN PAIN AND/OR FEVER Al Hydrox/Mg Hydrox/Simethicone 30 ml 07/23/22 22:00 Mag Hydrox/Al Hydrox/Simeth 30 Ml Udcup PO 08/22/22 21:59 Q4H PRN PRN INDIGESTION Amlodipine Besylate 10 mg 07/29/22 10:00 Amlodipine Besylate 5 Mg Tablet PO 08/28/22 09:59 QAM XIN Aspirin 325 mg 07/24/22 10:00 07/28/22 08:42 Aspirin 325 Mg Tablet.Ec PO 08/23/22 09:59 Not Given DAILY XIN Carvedilol 25 mg 07/29/22 10:00 Carvedilol 12.5 Mg Tablet PO 08/28/22 09:59 BID XIN Clonidine HCl 0.2 mg 07/26/22 10:00 07/26/22 09:05 Clonidine Hcl 0.2 Mg Patch TOP 08/25/22 09:59 0.2 mg Q7D XIN Administration Epoetin Alejo 10,000 unit 07/25/22 16:00 07/27/22 17:19 Epoetin Alejo-Epbx 10,000 Unit/Ml Vial SQ 08/24/22 15:59 10,000 unit MoWeFr XIN Administration Hydralazine HCl 50 mg 07/28/22 15:00 07/28/22 22:00 Hydralazine Hcl 25 Mg Tablet PO 08/27/22 14:59 Not Given TID XIN Potassium Chloride/Sodium Chloride 1,000 mls @ 50 mls/hr 07/25/22 15:30 07/29/22 01:44 Sodium Chloride 0.9% W/ 20 Meq Kcl/Liter IV 08/24/22 15:29 50 mls/hr .Q20H XIN Administration Insulin Glargine 10 unit 07/25/22 10:00 07/28/22 08:32 Insulin Glargine 1 Unit SQ 08/24/22 09:59 10 unit DAILY XIN Administration Insulin Human Lispro 0 unit 07/25/22 08:34 07/28/22 21:39 Insulin Lispro 1 Unit SQ 08/24/22 08:33 9 unit UD PRN Administration HYPERGLYCEMIA Magnesium Hydroxide 30 - 60 ml 07/23/22 22:00 07/27/22 01:13 Magnesium Hydroxide 30 Ml Udcup PO 08/22/22 21:59 30 ml QDP PRN Administration CONSTIPATION Nicotine 21 mg 07/24/22 10:00 07/28/22 08:42 Nicotine 21 Mg/Patch Patch TOP 08/23/22 09:59 Not Given Q24H10 [facility] Ondansetron HCl 4 mg 07/23/22 22:00 07/26/22 16:18 Ondansetron Hcl 4 Mg/2 Ml Vial IV 08/22/22 21:59 4 mg Q4H PRN PRN Administration NAUSEA/VOMITING Ondansetron HCl 4 mg 07/24/22 09:15 Zofran 4 Mg/Udtablet Orally Disintegrating PO 08/23/22 09:14 Q6H PRN PRN NAUSEA Senna/Docusate Sodium 2 udtab 07/23/22 22:00 Senna/Docusate Sodium 1 Udtab Tablet PO 08/22/22 21:59 BID PRN PRN CONSTIPATION Discontinued Medications Generic Name Dose Route Start Last Admin Trade Name Kelsie PRN Reason Stop Dose Admin Amlodipine Besylate 5 mg 07/27/22 08:24 07/27/22 08:53 Amlodipine Besylate 5 Mg Tablet PO 07/27/22 08:25 5 mg STAT ONE Administration Amlodipine Besylate 5 mg 07/27/22 10:00 07/28/22 08:32 Amlodipine Besylate 5 Mg Tablet PO 08/26/22 09:59 5 mg QAM XIN Administration Amlodipine Besylate 5 mg 07/28/22 13:49 07/28/22 15:16 Amlodipine Besylate 5 Mg Tablet PO 07/28/22 13:50 5 mg ONCE ONE Administration Aspirin 324 mg 07/23/22 17:49 07/23/22 18:32 Aspirin 81 Mg Tab.Chew PO 07/23/22 17:50 324 mg STAT ONE Administration Carvedilol 6.25 mg 07/24/22 10:00 07/24/22 21:56 Carvedilol 6.25 Mg Tablet PO 08/23/22 09:59 Not Given BID XIN Carvedilol 12.5 mg 07/25/22 10:00 07/28/22 08:32 Carvedilol 12.5 Mg Tablet PO 08/24/22 09:59 12.5 mg BID XIN Administration Carvedilol 12.5 mg 07/28/22 13:50 07/28/22 15:16 Carvedilol 12.5 Mg Tablet PO 07/28/22 13:51 12.5 mg ONCE ONE Administration Diphenhydramine HCl 50 mg 07/24/22 18:50 07/24/22 18:54 Diphenhydramine Hcl 50 Mg/Ml Vial IV 07/24/22 18:51 50 mg STAT ONE Administration Heparin Sodium (Beef Lung) 3,900 unit 07/23/22 18:57 07/23/22 19:01 Heparin 5000 Units/0.5 Ml 5,000 Unit/0.5 Ml Syr 60 unit/kg (3900 unit) 07/23/22 18:58 3,900 unit IV Administration STAT STA Heparin Sodium (Beef Lung) Confirm 07/23/22 18:59 Heparin 5000 Units/0.5 Ml 5,000 Unit/0.5 Ml Syr Administered 07/23/22 19:00 Dose 5,000 unit .ROUTE .STK-MED ONE Sodium Chloride 1,000 mls @ 999 mls/hr 07/23/22 06:29 07/23/22 09:01 Sodium Chloride 0.9% 1000 Ml IV 07/23/22 07:29 Infused .Q1H1M STA Infusion Sodium Chloride 1,000 mls @ 999 mls/hr 07/23/22 06:49 07/23/22 09:02 Sodium Chloride 0.9% 1000 Ml IV 07/23/22 07:49 Infused .Q1H1M STA Infusion Sodium Chloride Confirm 07/23/22 07:37 Sodium Chloride 0.9% 1000 Ml Administered 07/23/22 07:38 Dose 2,000 mls @ ud .ROUTE .STK-MED ONE Insulin Human Regular 100 unit 100 mls @ 6.464 mls/hr 07/23/22 10:25 07/24/22 09:28 / Sodium Chloride IV 08/22/22 10:24 0 unit/kg/hr .[id number] PRN 0 mls/hr DKA/HYPERGLYCEMIA Titration Protocol 0.1 UNIT/KG/HR Lactated Ringer's 1,000 mls @ 100 mls/hr 07/23/22 15:30 07/24/22 03:46 Lactated Ringers IV 08/22/22 15:29 100 mls/hr .Q10H XIN Administration Heparin Sodium/Dextrose 25,000 units in 250 mls @ 7.756 mls/hr 07/23/22 19:00 07/24/22 09:03 Heparin 25,000 Units/D5w: Use Order Set Donta IV 08/22/22 18:59 49.51 units/kg/hr .Q24H XIN 32 mls/hr Titration Protocol 12 UNITS/KG/HR Potassium Chloride 20 meq/ 1,010 mls @ 150 mls/hr 07/23/22 20:00 07/24/22 05:02 Dextrose/Sodium Chloride IV 08/22/22 19:59 Not Given .Q6H44M XIN Potassium Chloride/Dextrose/Sod Cl Confirm 07/23/22 21:00 D5w/0.45ns W/ 20meq Kcl 1000 Ml Administered 07/23/22 21:01 Dose 1,000 mls @ ud IV .STK-MED ONE Potassium Chloride/Dextrose/Sod Cl Confirm 07/24/22 04:20 D5w/0.45ns W/ 20meq Kcl 1000 Ml Administered 07/24/22 04:21 Dose 1,000 mls @ ud IV .STK-MED ONE Potassium Chloride/Dextrose/Sod Cl 1,000 mls @ 150 mls/hr 07/24/22 04:30 07/25/22 10:26 D5w/0.45ns W/ 20meq Kcl 1000 Ml IV 08/23/22 04:29 Not Given .Q6H40M XIN Heparin Sodium/Dextrose 25,000 units in 250 mls @ 10 mls/hr 07/24/22 10:30 07/25/22 08:37 Heparin 25,000 Units/D5w: Use Order Set Donta IV 08/23/22 10:29 0 units/hr .Q24H XIN 0 mls/hr Titration Protocol 1,000 UNITS/HR Azithromycin 500 mg in 250 mls @ 250 mls/hr 07/24/22 18:02 07/24/22 18:21 Zithromax 500 Mg/ 250 Ml Nacl Premix IV 08/23/22 18:01 250 mls/hr Q24H10 XIN Administration Azithromycin Confirm 07/24/22 18:19 Zithromax 500 Mg/ 250 Ml Nacl Premix Administered 07/24/22 18:20 Dose 500 mg in 250 mls @ ud IV .STK-MED ONE Potassium Chloride/Sodium Chloride 1,000 mls @ 50 mls/hr 07/25/22 08:45 07/25/22 08:45 Sodium Chloride 0.45% W/ 20 Meq Kcl IV 08/24/22 08:44 100 mls/hr .Q20H XIN Administration Insulin Human Lispro 0 unit 07/24/22 10:00 07/25/22 00:47 Insulin Lispro 1 Unit SQ 08/23/22 09:59 6 unit UD PRN Administration HYPERGLYCEMIA Labetalol HCl 10 mg 07/24/22 22:00 07/25/22 06:29 Labetalol Hcl 20 Mg/4 Ml Disp.Syringe IV 08/23/22 21:59 10 mg Q8H XIN Administration Metoprolol Succinate 25 mg 07/27/22 04:39 07/27/22 04:43 Metoprolol Succinate 25 Mg Xl Tab PO 07/27/22 04:40 25 mg STAT ONE Administration Nitroglycerin 1 gm 07/23/22 20:46 07/23/22 21:12 Nitroglycerin 1 Gm Packet TOP 07/23/22 20:47 1 gm STAT ONE Administration Nitroglycerin Confirm 07/23/22 20:57 Nitroglycerin 1 Gm Packet Administered 07/23/22 20:58 Dose 1 gm .ROUTE .STK-MED ONE Nitroglycerin 1 gm 07/23/22 22:00 07/26/22 05:46 Nitroglycerin 1 Gm Packet TOP 08/22/22 21:59 Not Given Q8HT XIN Ondansetron HCl 4 mg 07/23/22 06:29 07/23/22 07:38 Ondansetron Hcl 4 Mg/2 Ml Vial IV 07/23/22 06:30 4 mg STAT ONE Administration Ondansetron HCl Confirm 07/23/22 07:37 Ondansetron Hcl 4 Mg/2 Ml Vial Administered 07/23/22 07:38 Dose 4 mg .ROUTE .STK-MED ONE Ondansetron HCl 4 mg 07/23/22 08:39 07/23/22 09:01 Ondansetron Hcl 4 Mg/2 Ml Vial IV 07/23/22 08:40 4 mg STAT ONE Administration Ondansetron HCl Confirm 07/23/22 08:59 Ondansetron Hcl 4 Mg/2 Ml Vial Administered 07/23/22 09:00 Dose 4 mg .ROUTE .STK-MED ONE Ondansetron HCl Confirm 07/23/22 21:30 Ondansetron Hcl 4 Mg/2 Ml Vial Administered 07/23/22 21:31 Dose 4 mg .ROUTE .STK-MED ONE Ondansetron HCl 4 mg 07/23/22 21:39 07/23/22 21:40 Ondansetron Hcl 4 Mg/2 Ml Vial IV 07/23/22 21:40 4 mg STAT ONE Administration Pantoprazole Sodium 40 mg 07/23/22 06:49 07/23/22 07:38 Pantoprazole 40 Mg Vial IV 07/23/22 06:50 40 mg STAT ONE Administration Pantoprazole Sodium Confirm 07/23/22 07:37 Pantoprazole 40 Mg Vial Administered 07/23/22 07:38 Dose 40 mg IV .STK-MED ONE Intake & Output (Last 24 hours) 12/04/0907/27/22 07/28/22 07/29/22 11:59 11:59 11:59 11:59 Intake Total 2144 2274 2282 1620 Output Total 1003 3211 3498 5886 Balance -6865 -525 -393 -430 Weight 71.5 kg 71.7 kg 71.8 kg 72.9 kg Microbiology Results (Last 24 hours) 07/23/22 07:41 Blood Blood Culture Gram Stain - Final Not Reportable 07/23/22 07:41 Blood Blood Culture - Final NO GROWTH 07/23/22 07:56 Blood Blood Culture Gram Stain - Final Not Reportable 07/23/22 07:56 Blood Blood Culture - Final NO GROWTH Laboratory Results (Last 24 hours) 07/29/22 07/29/22 07/29/22 07:23 05:30 05:30 WBC 7.2 RBC 3.60 L Hgb 9.9 L Hct 31.0 L MCV 86.1 MCH 27.5 MCHC 31.9 L RDW 13.2 Plt Count 401 MPV 8.5 Sodium 128 L Potassium 4.9 Chloride 98 Carbon Dioxide 22 Anion Gap 12.4 BUN 32 H Creatinine 1.98 H Estimated GFR 40.9 Glucose 300 H POC Glucometer 282 H Calcium 8.7 Total Bilirubin 0.40 AST 19 ALT 14 Alkaline Phosphatase 184 H Serum Total Protein 7.1 Albumin 3.3 L 07/28/22 07/28/22 07/28/22 20:48 16:12 11:49 WBC RBC Hgb Hct MCV MCH MCHC RDW Plt Count MPV Sodium Potassium Chloride Carbon Dioxide Anion Gap BUN Creatinine Estimated GFR Glucose POC Glucometer 309 H 143 H 287 H Calcium Total Bilirubin AST ALT Alkaline Phosphatase Serum Total Protein Albumin Orders (Last 24 hours) Category Date Time Status Discharge Routine Discharge 07/29/22 Ordered CBC AM.LAB Lab 07/29/22 05:30 Completed CMP AM.LAB Lab 07/29/22 05:30 Completed POCT GLUCOSE Stat Lab 07/28/22 11:49 Completed POCT GLUCOSE Stat Lab 07/28/22 16:12 Completed POCT GLUCOSE Stat Lab 07/28/22 20:48 Completed POCT GLUCOSE Stat Lab 07/29/22 07:23 Completed Amlodipine Besylate 5 mg [Norvasc 5 mg] Med 07/29/22 10:00 Active 10 mg PO QAM Amlodipine Besylate 5 mg [Norvasc 5 mg] Med 07/28/22 13:49 Discontinued 5 mg PO ONCE ONE Carvedilol 12.5 mg [Coreg 12.5 mg] Med 07/28/22 13:50 Discontinued 12.5 mg PO ONCE ONE Carvedilol 12.5 mg [Coreg 12.5 mg] Med 07/29/22 10:00 Active 25 mg PO BID HydrALAzine HCL 25 MG TAB [Apresoline 25 MG TABLET Med 07/28/22 15:00 Active *] 50 mg PO TID Patient Care Notes (Last 24 hours) 07/28/22 22:40 Nursing Note by Sudhakar Patel 07/28/221999 Pt refuse to have tele reapplied after his shower. Initialized on 07/28/22 22:40 - END OF NOTE 07/28/22 13:15 (created 07/28/22 19:30) Nursing Note by Barbara Thomas ROUNDED ON PT WITH DR. SIFUENTES. REVIEWED VS AND LABS. REC. THE FOLLOWING ORDERS: INCREASE AMLODIPINE TO 10MG DAILY, INCREASE COREG TO 25MG PO BID, AND ADD HYDRALAZINE 50MG PO TID. Initialized on 07/28/22 19:30 - END OF NOTE - Vitals & Intake/Output Vital Signs: Vital Signs Temperature 98.2 F 07/29/22 07:51 Pulse Rate 84 07/29/22 07:51 Respiratory Rate 18 07/29/22 07:51 Blood Pressure 161/94 07/29/22 07:51 O2 Sat by Pulse Oximetry 96 07/29/22 07:51 Intake & Output: Intake & Output 07/26/22 07/27/22 07/28/22 07/29/22 11:59 11:59 11:59 11:59 Intake Total 2145 2275 2282 1620 Output Total 4864 6916 9937 2053 Balance -2855 -525 -393 -430 Weight 71.5 kg 71.7 kg 71.8 kg 72.9 kg - Lab Result Diagrams: 07/29/22 05:30 07/29/22 05:30 Lab Results-Last 24 Hrs: Lab Results-Last 24 Hours 07/28/22 07/28/22 07/28/22 Range/Units 11:49 16:12 20:48 WBC (4.0-10.5) x10^3/uL RBC (4.1-5.6) x10^6/uL Hgb (12.5-18.0) g/dL Hct (42-50) % MCV (78-100) fL MCH (26-32) pg MCHC (32-36) g/dL RDW (11.5-14.0) % Plt Count (150-450) x10^3/uL MPV (7.5-11.0) fL Sodium (137-145) mmol/L Potassium (3.5-5.1) mmol/L Chloride (98-107) mmol/L Carbon Dioxide (22-30) mmol/L Anion Gap (5-15) MEQ/L BUN (9-20) mg/dL Creatinine (0.66-1.25) mg/dL Estimated GFR ML/MIN Glucose (74-106) mg/dL POC Glucometer 287 H 143 H 309 H (74 to 106) mg/dL Calcium (8.4-10.2) mg/dL Total Bilirubin (0.2-1.3) mg/dL AST (17-59) U/L ALT (0-50) U/L Alkaline Phosphatase (38-126) U/L Serum Total Protein (6.3-8.2) g/dL Albumin (3.5-5.0) g/dL 07/29/22 07/29/22 07/29/22 Range/Units 05:30 05:30 07:23 WBC 7.2 (4.0-10.5) x10^3/uL RBC 3.60 L (4.1-5.6) x10^6/uL Hgb 9.9 L (12.5-18.0) g/dL Hct 31.0 L (42-50) % MCV 86.1 (78-100) fL MCH 27.5 (26-32) pg MCHC 31.9 L (32-36) g/dL RDW 13.2 (11.5-14.0) % Plt Count 401 (150-450) x10^3/uL MPV 8.5 (7.5-11.0) fL Sodium 128 L (137-145) mmol/L Potassium 4.9 (3.5-5.1) mmol/L Chloride 98 (98-107) mmol/L Carbon Dioxide 22 (22-30) mmol/L Anion Gap 12.4 (5-15) MEQ/L BUN 32 H (9-20) mg/dL Creatinine 1.98 H (0.66-1.25) mg/dL Estimated GFR 40.9 ML/MIN Glucose 300 H (74-106) mg/dL POC Glucometer 282 H (74 to 106) mg/dL Calcium 8.7 (8.4-10.2) mg/dL Total Bilirubin 0.40 (0.2-1.3) mg/dL AST 19 (17-59) U/L ALT 14 (0-50) U/L Alkaline Phosphatase 184 H (38-126) U/L Serum Total Protein 7.1 (6.3-8.2) g/dL Albumin 3.3 L (3.5-5.0) g/dL Micro Results-Entire Visit: Microbiology 07/23/22 07:41 Blood Culture Gram Stain - Final Blood Not Reportable Blood Culture - Final NO GROWTH 07/23/22 07:56 Blood Culture Gram Stain - Final Blood Not Reportable Blood Culture - Final NO GROWTH Accuchecks Date 07/29/22 Date 07/28/22 Date 07/28/22 Time 07:23 Time 16:18 Time 11:57 - Procedures and Test Procedures and Tests throughout Hospitalization: Therapy Orders & Screens 07/23/22 22:00 EKG Q8HX2,QAMX3,PRN Comment: 07/24/22 05:00 EKG ROUTINE Comment: Diagnosis: DKA, NSTEMI 07/25/22 05:00 EKG ROUTINE Comment: Diagnosis: DKA, NSTEMI 07/26/22 23:53 EKG ROUTINE Comment: Diagnosis: DKA, NSTEMI Discharge Exam General Appearance: no apparent distress, alert Neurologic Exam: alert, oriented x 3, cooperative, normal mood/affect, nml cerebellar function, sensation nml, No motor deficits Eye Exam: PERRL, EOMI, eyes nml inspection Ears, Nose, Throat Exam: normal ENT inspection, pharynx normal, moist mucous membranes Neck Exam: normal inspection, non-tender, supple, full range of motion Respiratory Exam: normal breath sounds, lungs clear, No respiratory distress Cardiovascular Exam: regular rate/rhythm, normal heart sounds Gastrointestinal/Abdomen Exam: soft, No tenderness, No mass Male Genitalia Exam: deferred Rectal Exam: deferred Back Exam: normal inspection, normal range of motion, No CVA tenderness, No vertebral tenderness Extremity Exam: normal inspection, normal range of motion Skin Exam: normal color, warm, dry Final Diagnosis/Problem List - Final Discharge Diagnosis/Problem (1) NSTEMI (non-ST elevated myocardial infarction) Current Visit: Yes Status: Resolved Code(s): I21.4 - NON-ST ELEVATION (NS CORRINE) MYOCARDIAL INFARCTION (2) RSV (acute bronchiolitis due to respiratory syncytial virus) Current Visit: Yes Status: Resolved (3) Chronic renal insufficiency Current Visit: Yes Status: Chronic Code(s): N18.9 - CHRONIC KIDNEY DISEASE, UNSPECIFIED - Discharge Discharge Date: 07/29/22 Disposition: Home, Self-Care Condition: Stable Prescriptions: Continue Carvedilol [Coreg ] 6.25 mg PO BID Ondansetron ODT 4 MG [Zofran Odt 4 mg] 4 mg PO Q6H PRN PRN #10 tablet PRN Reason: Nausea Clonidine HCl Tts-2 Patch [Catapres TTS-2 PATCH] 0.2 mg TOP Q7D #3 patch Insulin Lispro [Admelog Solostar] 10 - 15 unit SQ TIDWMEALS #3 Additional Instructions: FOLLOW UP WITH CMP AND CBC IN DR. RODRIGUEZ'S OFFICE POST DISCHARGE [facility] HAS BEEN SET UP. THEY WILL CONTACT YOU FOR A VISIT. THEIR PHONE NUMBER IS [phone] Follow up with: HOLA RODRIGUEZ [CONSULTING PHYSICIAN] - 1 Week
[2022-07-29] MEDS: Ecotrin 325 MG PO SCH (10:22)
[2022-07-29] MEDS: Apresoline 25 MG TABLET PO SCH (10:24)
[2022-07-29] MEDS: HUMALOG SQ PRN ×2 (10:29→12:09)
[2022-07-29] MEDS: Lantus Insulin SQ SCH (10:29)
[2022-07-29 12:14] VITALS: BP 180/90; PULSE 78; O2SAT 97
== END 2022-07-29 13:18 | disposition home health service (06) | DRG 281 ==
LOC: ED 06:07 → ICU 21:58 → ED 07-24 06:07 → OBSVTOIN 07-24 08:15 → ICU 07-24 21:58 → MED SURG 07-26 13:43
PROVIDERS: ADMIT Family Medicine; ATTEND Family Medicine
DX: I21.4 Non-ST elevation (NSTEMI) myocardial infarction (principal); E87.1 Hypo-osmolality and hyponatremia; E10.22 Type 1 diabetes mellitus with diabetic chronic kidney disease; I12.9 Hypertensive chronic kidney disease with stage 1 through stage 4 chronic kidney disease, or unspecified chronic kidney disease; N18.9 Chronic kidney disease, unspecified; B97.4 Respiratory syncytial virus as the cause of diseases classified elsewhere; R77.8 Other specified abnormalities of plasma proteins; E78.5 Hyperlipidemia, unspecified; F17.200 Nicotine dependence, unspecified, uncomplicated; D64.9 Anemia, unspecified; E87.6 Hypokalemia; I16.0 Hypertensive urgency; Z91.14 Patient's other noncompliance with medication regimen; Z79.899 Other long term (current) drug therapy; Z20.828 Contact with and (suspected) exposure to other viral communicable diseases
CPT/HCPCS: 0241U; 36000; 36415; 71045; 74150; 76705; 80048; 80053; 80061; 81015; 82607; 82728; 82746; 82805; 82947; 83036; 83540; 83605; 83690; 83721; 83735; 83930; 84100; 84145; 84484; 85025; 85027; 85610; 85730; 87040; 93005; 93268; 93306; 96360; 96361; 96374; 96375; 96376; 99285; J0456; J1200; J1644; J1817; J2405; J3480; Q3014; A9270-GY; G0378; Q5106

== ENCOUNTER 2022-09-05 21:12 | Emergency (ER) | payer OTHER ==
[2022-09-05] MEDS ORDERED: Zofran 4 MG/2 ML VIAL IV ONE (21:19)
[2022-09-05] MEDS ORDERED: Sodium Chloride 0.9% 1000 ML 1,000 ML IV STA ×3 (21:19→23:30)
[2022-09-05] MEDS ORDERED: PROTONIX 40 MG IV IV ONE ×2 (21:20→21:40)
[2022-09-05] MEDS ORDERED: Zofran 4 MG/2 ML VIAL ONE (21:40)
[2022-09-05] MEDS ORDERED: Sodium Chloride 0.9% 1000 ML 1,000 ML ONE ×3 (21:40→23:30)
[2022-09-05 21:51] LABS: Absolute Neutrophil Ct (ANC) 18.92 x10^3/uL (1.4-6.9); Basophil (Absolute #) 0.03 x10^3/uL (0-0.4); Eosinophil (Absolute #) 0 x10^3/uL (0-0.5); Hematocrit 30.1 % (42-50); Hemoglobin 10.1 g/dL (12.5-18.0); Lymphocyte (Absolute #) 0.33 x10^3/uL (1.0-4.6); Lymphocytes % 1.6 % (24.0-44.0); Mean Cell Volume 84.8 fL (78-100); Mean Corpuscular Hemoglobin 28.5 pg (26-32); Mean Corpuscular Hgb Concent. 33.6 g/dL (32-36); Mean Platelet Volume 8.5 fL (7.5-11.0); Monocyte (Absolute #) 0.79 x10^3/uL (0.0-1.3); Monocytes % 3.9 % (0.0-12.0); Platelet Count 395 x10^3/uL (150-450); Red Blood Count 3.55 x10^6/uL (4.1-5.6); Red Cell Distribution Width 13.9 % (11.5-14.0); White Blood Count 20.2 x10^3/uL (4.0-10.5)
[2022-09-05] MEDS ORDERED: TRANDATE 20 MG/4 ML SYRINGE IV ONE ×2 (22:02→22:04)
[2022-09-05 22:03] LABS: INR 1.01 (0.8-3.0); PROTIME 10.7 SECONDS (9.4-12.5); PTT 24.5 SECONDS (25.1-36.5)
[2022-09-05 22:06] LABS: ALBUMIN 4.1 g/dL (3.5-5.0); BILIRUBIN,TOTAL 0.8 mg/dL (0.2-1.3); Calcium 9.3 mg/dL (8.4-10.2); Creatinine 1 3.54 mg/dL (0.66-1.25); EST GLOMERULAR FILTRATION RATE 20.9 ML/MIN
[2022-09-05 22:22] LABS: A-aADO2 35; ABG HEMOGLOBIN 9.9; ABG POTASSIUM 4.8 (3.5-5.1); ABG SITE RIGHT RADIAL; ALLEN TEST OK? YES; ARTERIAL BLD GAS O2 SATURATION 94.5 % (95-100); ARTERIAL BLOOD GAS BASE EXCESS -0.7 (-2.0-2.0); ARTERIAL BLOOD GAS FIO2 21 %; ARTERIAL BLOOD GAS PCO2 40 mmHg (35-45); ARTERIAL BLOOD GAS PO2 65 mmHg (75-100); ARTERIAL BLOOD GAS pH 7.39 (7.35-7.45); CARBOXYHEMOGLOBIN 1.3 % THgb (0.0-6.9); HCO3- 24.2 (22-28); HGB O2 SAT 92.5 g/dF (94-100); Methhemoglobin 0.9 % (1.4-1.5)
--- NOTE | 2022-09-05 22:33 | ERPHSYRPT ---
- History of Present Illness Historian: patient, other (Mother) Exam Limitations: no limitations Patient Subjective Stated Complaint: pt states he started vomiting yesterday. today blood sugar read high on accu check, pt started having burning pain in his chest. states nonradiating Triage Nursing Assessment: pt alert and oriented, answers questions approp. pt ambulatory with steady gait noted. respirations nonlabored. skin warm and dry. pt vomiting small amounts frequently during exam. sinus tach noted on monitor. Physician History: 36 yo w longstanding DM1 w frequent admits for DKA presents w N/V x 1 day and mid-sternal chest pain beginning at noon today. Pain is described as burning wo radiation. Nothing makes it better or worse and is 7/10 on scale. It is accompanied by diaphoresis, but dyspnea is denied. Hematemesis,melena, and he matochezia are also denied. Pt has chronic renal insufficiency, hypertension, and possible NSTEMI w elevated troponin during last visit. He also has a h/o methamphetamine abuse but denies recent use. Timing/Duration: other (Chest pain since 12:00PM/N-v x1 day) Activities at Onset: rest Quality: burning Location: substernal Chest Pain Radiation: no radiation Severity of Pain-Max: severe Severity of Pain-Current: moderate Modifying Factors: Improves With: nothing Associated Symptoms: nausea, vomiting, diaphoresis Prior Chest Pain/Cardiac Workup: heart attack (NSTEMI diagnosis during last stay) Nitro Today/Relief: no nitro taken today Aspirin Treatment Today: no aspirin today Allergies/Adverse Reactions: No Known Drug Allergies Allergy (Verified 09/05/22 21:56) Hx Tetanus, Diphtheria Vaccination/Date Given: Yes Hx Influenza Vaccination/Date Given: No Hx Pneumococcal Vaccination/Date Given: Yes (10/01/2016) Immunizations Up to Date: Yes Travel Risk - International Travel Have you traveled outside of the country in past 3 weeks: No - Coronavirus Screening Are you exhibiting any of the following symptoms?: Yes Symptoms: Vomiting/Diarrhea Close contact with a COVID-19 positive Pt in past 14-21 Days: No - Vaccine Status Have you recieved a Covid-19 vaccination: No - Review of Systems Constitutional: No Symptoms, Lethargy Eyes: No Symptoms Ears, Nose, & Throat: No Symptoms Respiratory: No Symptoms Cardiac: No Symptoms, Chest Pain Abdominal/Gastrointestinal: No Symptoms, Nausea, Vomiting Genitourinary Symptoms: No Symptoms Musculoskeletal: No Symptoms Skin: No Symptoms Neurological: No Symptoms Psychological: No Symptoms Endocrine: No Symptoms Hematologic/Lymphatic: No Symptoms Immunological/Allergic: No Symptoms - Past Medical History Pertinent Past Medical History: Yes Neurological History: No Pertinent History ENT History: No Pertinent History Cardiac History: High Cholesterol, Hypertension Respiratory History: No Pertinent History Endocrine Medical History: Diabetes Type I Musculoskeletal History: No Pertinent History GI Medical History: No Pertinent History History: Renal Disease Psycho-Social History: Anxiety, Depression Male Reproductive Disorders: No Pertinent History Other Medical History: prior drug use , TOB positive use - Past Surgical History Past Surgical History: No Neuro Surgical History: No Pertinent History Cardiac: No Pertinent History Respiratory: No Pertinent History Gastrointestinal: No Pertinent History Genitourinary: No Pertinent History Musculoskeletal: No Pertinent History Male Surgical History: No Pertinent History Other Surgical History: . - Social History Smoking Status: Never smoker Exposure to second hand smoke: No Drug Use: none Patient Lives Alone: No Significant Family History: no pertinent family hx - Nursing Vital Signs Nursing Vital Signs: Initial Vital Signs Temperature 98.7 F 09/05/22 21:13 Pulse Rate 117 H 09/05/22 21:13 Respiratory Rate 20 09/05/22 21:13 Blood Pressure 179/110 09/05/22 21:13 O2 Sat by Pulse Oximetry 100 09/05/22 21:13 Pain Scale Pain Intensity 2 Hypertensive/Tachycardic - Physical Exam General Appearance: mild distress Eye Exam: PERRL/EOMI, eyes nml inspection Ears, Nose, Throat Exam: normal ENT inspection, TMs normal, pharynx normal, moist mucous membranes Neck Exam: normal inspection, non-tender, supple, full range of motion, No meningismus, No mass, No Brudzinski, No Kernig's Respiratory Exam: normal breath sounds, lungs clear, airway intact, No respiratory distress Cardiovascular Exam: tachycardia, capillary refill <2 sec, No murmur Gastrointestinal/Abdomen Exam: soft, tenderness (Mild epigastric TTP wo guarding or rebound) Back Exam: normal inspection, normal range of motion, No CVA tenderness Extremity Exam: normal inspection, normal range of motion Neurologic Exam: alert, oriented x 3, cooperative, director web II-XII nml as tested, normal mood/affect, sensation nml Skin Exam: pale Lymphatic Exam: No adenopathy SpO2 Interpretation: normal SpO2: 96 O2 Delivery: Room Air - Course Nursing assessment & vital signs reviewed: Yes EKG Interpreted by Me: RATE (Sinus tach/LVH/[place]/Normal QT-QTc/Non-speci fic ST changes) - Radiology Exams Chest X-ray Interpretation: Interpreted by me (CXR NAD) Ordered Tests: Active Orders 24 hr Category Date Time Status Seat Trimmer STAT Care 09/05/22 21:38 Completed EKG-ER Only STAT Care 09/05/22 21:17 Completed IV Insertion STAT Care 09/05/22 21:37 Completed Oxygen-ED Only Nasal Cannula 2 lpm Care 09/05/22 22:29 Completed POCT Glucose Check STAT Care 09/05/22 21:38 Completed CHEST 1 VIEW (PORTABLE) Stat Exams 09/05/22 21:16 Taken ABG [ARTERIAL BLOOD GASES] Stat Lab 09/05/22 22:16 Completed BMP Stat Lab 09/05/22 23:58 Completed CBC W DIFF Stat Lab 09/05/22 21:48 Completed CMP Stat Lab 09/05/22 21:48 Completed Lactic Acid Stat Lab 09/05/22 22:16 Completed Lactic Acid Stat Lab 09/06/22 00:25 Received POCT GLUCOSE Stat Lab 09/05/22 21:37 Completed POCT GLUCOSE Stat Lab 09/05/22 22:48 Completed POCT GLUCOSE Stat Lab 09/06/22 02:48 Completed POCT GLUCOSE Stat Lab 09/06/22 03:05 Completed PROTIME WITH INR Stat Lab 09/05/22 21:48 Completed PTT Stat Lab 09/05/22 21:48 Completed TROPONIN Q4H Lab 09/05/22 21:48 Completed TROPONIN Q4H Lab 09/06/22 00:25 Completed TROPONIN Q4H Lab 09/06/22 05:30 Ordered UA W/RFX UR CULTURE Stat Lab 09/06/22 02:11 Received Medication Summary Discontinued Medications Generic Name Dose Route Start Last Admin Trade Name Freq PRN Reason Stop Dose Admin Aspirin 324 mg 09/06/22 01:51 09/06/22 02:25 Aspirin 81 Mg Tab.Chew PO 09/06/22 01:52 324 mg STAT ONE Administration Aspirin Confirm 09/06/22 02:23 Aspirin 81 Mg Tab.Chew Administered 09/06/22 02:24 Dose 324 mg .ROUTE .STK-MED ONE Droperidol 1.25 mg 09/05/22 21:53 09/05/22 21:55 Droperidol 5 Mg/2 Ml Vial IV 09/05/22 21:54 1.25 mg STAT ONE Administration Droperidol Confirm 09/05/22 21:54 Droperidol 5 Mg/2 Ml Vial Administered 09/05/22 21:55 Dose 5 mg .ROUTE .STK-MED ONE Sodium Chloride 1,000 mls @ 999 mls/hr 09/05/22 21:19 09/05/22 22:44 Sodium Chloride 0.9% 1000 Ml IV 09/05/22 22:19 Infused .Q1H1M STA Infusion Sodium Chloride Confirm 09/05/22 21:40 Sodium Chloride 0.9% 1000 Ml Administered 09/05/22 21:41 Dose 1,000 mls @ ud .ROUTE .STK-MED ONE Sodium Chloride Confirm 09/05/22 22:32 Sodium Chloride 0.9% 1000 Ml Administered 09/05/22 22:33 Dose 1,000 mls @ ud .ROUTE .STK-MED ONE Sodium Chloride 1,000 mls @ 999 mls/hr 09/05/22 22:32 09/05/22 23:52 Sodium Chloride 0.9% 1000 Ml IV 09/05/22 23:32 Infused .Q1H1M STA Infusion Sodium Chloride 1,000 mls @ 999 mls/hr 09/05/22 23:30 09/06/22 01:44 Sodium Chloride 0.9% 1000 Ml IV 09/06/22 00:30 Infused .Q1H1M STA Infusion Sodium Chloride Confirm 09/05/22 23:30 Sodium Chloride 0.9% 1000 Ml Administered 09/05/22 23:31 Dose 1,000 mls @ ud .ROUTE .STK-MED ONE Sodium Chloride 1,000 mls @ 150 mls/hr 09/06/22 02:30 09/06/22 02:24 Sodium Chloride 0.9% 1000 Ml IV 10/06/22 02:29 150 mls/hr .Q6H40M XIN Administration Dextrose/Sodium Chloride 500 mls @ 50 mls/hr 09/06/22 03:00 09/06/22 02:53 Dextrose 5%-1/2ns Iv Soln. 500 Ml IV 10/06/22 02:59 125 mls/hr .Q10H XIN Administration Sodium Chloride Confirm 09/06/22 02:23 Sodium Chloride 0.9% 1000 Ml Administered 09/06/22 02:24 Dose 1,000 mls @ ud .ROUTE .STK-MED ONE Insulin Human Regular 15 unit 09/05/22 22:49 09/05/22 22:56 Insulin Regular, Human 1 Unit SQ 09/05/22 22:50 15 unit STAT ONE Administration Insulin Human Regular Confirm 09/05/22 22:56 Insulin Regular, Human 1 Unit Administered 09/05/22 22:57 Dose 15 unit .ROUTE .STK-MED ONE Insulin Human Regular 10 unit 09/06/22 02:20 09/06/22 02:24 Insulin Regular, Human 1 Unit SQ 09/06/22 02:21 10 unit STAT ONE Administration Insulin Human Regular Confirm 09/06/22 02:23 Insulin Regular, Human 1 Unit Administered 09/06/22 02:24 Dose 10 unit .ROUTE .STK-MED ONE Labetalol HCl 10 mg 09/05/22 22:02 09/05/22 22:05 Labetalol Hcl 20 Mg/4 Ml Disp.Syringe IV 09/05/22 22:03 10 mg STAT ONE Administration Labetalol HCl Confirm 09/05/22 22:04 Labetalol Hcl 20 Mg/4 Ml Disp.Syringe Administered 09/05/22 22:05 Dose 20 mg IV .STK-MED ONE Ondansetron HCl 4 mg 09/05/22 21:19 09/05/22 21:43 Ondansetron Hcl 4 Mg/2 Ml Vial IV 09/05/22 21:20 4 mg STAT ONE Administration Ondansetron HCl Confirm 09/05/22 21:40 Ondansetron Hcl 4 Mg/2 Ml Vial Administered 09/05/22 21:41 Dose 4 mg .ROUTE .STK-MED ONE Pantoprazole Sodium 40 mg 09/05/22 21:20 09/05/22 21:43 Pantoprazole 40 Mg Vial IV 09/05/22 21:21 40 mg STAT ONE Administration Pantoprazole Sodium Confirm 09/05/22 21:40 Pantoprazole 40 Mg Vial Administered 09/05/22 21:41 Dose 40 mg IV .STK-MED ONE Lab/Rad Data: Laboratory Result Diagrams 09/05/22 21:48 09/05/22 23:58 Laboratory Results 09/06/22 09/06/22 09/06/22 Range/Units 03:05 02:48 00:25 WBC (4.0-10.5) x10^3/uL RBC (4.1-5.6) x10^6/uL Hgb (12.5-18.0) g/dL Hct (42-50) % MCV (78-100) fL MCH (26-32) pg MCHC (32-36) g/dL RDW (11.5-14.0) % Plt Count (150-450) x10^3/uL MPV (7.5-11.0) fL Gran % (36.0-66.0) % Immature Gran % (Auto) (0.00-0.4) % Nucleat RBC Rel Count (0.00-0.1) % Eos # (Auto) (0-0.5) x10^3/uL Immature Gran # (Auto) (0.00-0.03) x10^3u/L Absolute Lymphs (auto) (1.0-4.6) x10^3/uL Absolute Monos (auto) (0.0-1.3) x10^3/uL Absolute Nucleated RBC (0.00-0.01) x10^3u/L Lymphocytes % (24.0-44.0) % Monocytes % (0.0-12.0) % Eosinophils % (0.00-5.0) % Basophils % (0.0-0.4) % Absolute Granulocytes (1.4-6.9) x10^3/uL Basophils # (0-0.4) x10^3/uL PT (9.4-12.5) SECONDS INR (0.8-3.0) APTT (25.1-36.5) SECONDS Puncture Site pCO2 (35-45) mmHg pO2 (75-100) mmHg Base Excess (-2.0-2.0) O2 Saturation (94-100) g/dF ABG pH (7.35-7.45) ABG HCO3 (22-28) ABG O2 Sat (Measured) (95-100) % Arnaldo Test A-a Gradient a/A Ratio Hemoglobin Carboxyhemoglobin (0.0-6.9) % THgb Methemoglobin (1.4-1.5) % Temperature C POC O2 Flow Rate % Sodium (137-145) mmol/L Potassium (3.5-5.1) mmol/L Chloride (98-107) mmol/L Carbon Dioxide (22-30) mmol/L Anion Gap (5-15) MEQ/L BUN (9-20) mg/dL Creatinine (0.66-1.25) mg/dL Estimated GFR ML/MIN Glucose (74-106) mg/dL POC Glucometer 121 H 124 H (74 to 106) mg/dL Lactic Acid (0.4-2.0) Calcium (8.4-10.2) mg/dL Total Bilirubin (0.2-1.3) mg/dL AST (17-59) U/L ALT (0-50) U/L Alkaline Phosphatase (38-126) U/L Troponin I 0.069 H* (0.000-0.034) ng/mL Serum Total Protein (6.3-8.2) g/dL Albumin (3.5-5.0) g/dL Influenza Type A Ag (NEGATIVE) Influenza Type B Ag (NEGATIVE) RSV (PCR) (Negative) SARS-CoV-2 (PCR) (NEGATIVE) Slides for Path Review 09/05/22 09/05/22 09/05/22 Range/Units 23:58 22:48 22:16 WBC (4.0-10.5) x10^3/uL RBC (4.1-5.6) x10^6/uL Hgb (12.5-18.0) g/dL Hct (42-50) % MCV (78-100) fL MCH (26-32) pg MCHC (32-36) g/dL RDW (11.5-14.0) % Plt Count (150-450) x10^3/uL MPV (7.5-11.0) fL Gran % (36.0-66.0) % Immature Gran % (Auto) (0.00-0.4) % Nucleat RBC Rel Count (0.00-0.1) % Eos # (Auto) (0-0.5) x10^3/uL Immature Gran # (Auto) (0.00-0.03) x10^3u/L Absolute Lymphs (auto) (1.0-4.6) x10^3/uL Absolute Monos (auto) (0.0-1.3) x10^3/uL Absolute Nucleated RBC (0.00-0.01) x10^3u/L Lymphocytes % (24.0-44.0) % Monocytes % (0.0-12.0) % Eosinophils % (0.00-5.0) % Basophils % (0.0-0.4) % Absolute Granulocytes (1.4-6.9) x10^3/uL Basophils # (0-0.4) x10^3/uL PT (9.4-12.5) SECONDS INR (0.8-3.0) APTT (25.1-36.5) SECONDS Puncture Site pCO2 (35-45) mmHg pO2 (75-100) mmHg Base Excess (-2.0-2.0) O2 Saturation (94-100) g/dF ABG pH (7.35-7.45) ABG HCO3 (22-28) ABG O2 Sat (Measured) (95-100) % Arnaldo Test A-a Gradient a/A Ratio Hemoglobin Carboxyhemoglobin (0.0-6.9) % THgb Methemoglobin (1.4-1.5) % Temperature C POC O2 Flow Rate % Sodium 134 L (137-145) mmol/L Potassium 4.5 (3.5-5.1) mmol/L Chloride 99 (98-107) mmol/L Carbon Dioxide 23 (22-30) mmol/L Anion Gap 16.9 H (5-15) MEQ/L BUN 52 H (9-20) mg/dL Creatinine 3.32 H (0.66-1.25) mg/dL Estimated GFR 22.5 ML/MIN Glucose 343 H (74-106) mg/dL POC Glucometer 443 H (74 to 106) mg/dL Lactic Acid 3.0 H (0.4-2.0) Calcium 8.2 L (8.4-10.2) mg/dL Total Bilirubin (0.2-1.3) mg/dL AST (17-59) U/L ALT (0-50) U/L Alkaline Phosphatase (38-126) U/L Troponin I (0.000-0.034) ng/mL Serum Total Protein (6.3-8.2) g/dL Albumin (3.5-5.0) g/dL Influenza Type A Ag (NEGATIVE) Influenza Type B Ag (NEGATIVE) RSV (PCR) (Negative) SARS-CoV-2 (PCR) (NEGATIVE) Slides for Path Review 09/05/22 09/05/22 09/05/22 Range/Units 22:16 22:00 21:48 WBC (4.0-10.5) x10^3/uL RBC (4.1-5.6) x10^6/uL Hgb (12.5-18.0) g/dL Hct (42-50) % MCV (78-100) fL MCH (26-32) pg MCHC (32-36) g/dL RDW (11.5-14.0) % Plt Count (150-450) x10^3/uL MPV (7.5-11.0) fL Gran % (36.0-66.0) % Immature Gran % (Auto) (0.00-0.4) % Nucleat RBC Rel Count (0.00-0.1) % Eos # (Auto) (0-0.5) x10^3/uL Immature Gran # (Auto) (0.00-0.03) x10^3u/L Absolute Lymphs (auto) (1.0-4.6) x10^3/uL Absolute Monos (auto) (0.0-1.3) x10^3/uL Absolute Nucleated RBC (0.00-0.01) x10^3u/L Lymphocytes % (24.0-44.0) % Monocytes % (0.0-12.0) % Eosinophils % (0.00-5.0) % Basophils % (0.0-0.4) % Absolute Granulocytes (1.4-6.9) x10^3/uL Basophils # (0-0.4) x10^3/uL PT (9.4-12.5) SECONDS INR (0.8-3.0) APTT (25.1-36.5) SECONDS Puncture Site RIGHT RADIAL pCO2 40 (35-45) mmHg pO2 65 L (75-100) mmHg Base Excess -0.7 (-2.0-2.0) O2 Saturation 92.5 L (94-100) g/dF ABG pH 7.39 (7.35-7.45) ABG HCO3 24.2 (22-28) ABG O2 Sat (Measured) 94.5 L (95-100) % Arnaldo Test YES A-a Gradient 35 a/A Ratio 0.65 Hemoglobin 9.9 Carboxyhemoglobin 1.3 (0.0-6.9) % THgb Methemoglobin 0.9 L (1.4-1.5) % Temperature 37.0 C POC O2 Flow Rate 21 % Sodium (137-145) mmol/L Potassium 4.8 (3.5-5.1) mmol/L Chloride (98-107) mmol/L Carbon Dioxide (22-30) mmol/L Anion Gap (5-15) MEQ/L BUN (9-20) mg/dL Creatinine (0.66-1.25) mg/dL Estimated GFR ML/MIN Glucose (74-106) mg/dL POC Glucometer (74 to 106) mg/dL Lactic Acid (0.4-2.0) Calcium (8.4-10.2) mg/dL Total Bilirubin (0.2-1.3) mg/dL AST (17-59) U/L ALT (0-50) U/L Alkaline Phosphatase (38-126) U/L Troponin I 0.054 H* (0.000-0.034) ng/mL Serum Total Protein (6.3-8.2) g/dL Albumin (3.5-5.0) g/dL Influenza Type A Ag NEGATIVE (NEGATIVE) Influenza Type B Ag NEGATIVE (NEGATIVE) RSV (PCR) NEGATIVE (Negative) SARS-CoV-2 (PCR) POSITIVE A (NEGATIVE) Slides for Path Review 09/05/22 09/05/22 09/05/22 Range/Units 21:48 21:48 21:48 WBC 20.2 H (4.0-10.5) x10^3/uL RBC 3.55 L (4.1-5.6) x10^6/uL Hgb 10.1 L (12.5-18.0) g/dL Hct 30.1 L (42-50) % MCV 84.8 (78-100) fL MCH 28.5 (26-32) pg MCHC 33.6 (32-36) g/dL RDW 13.9 (11.5-14.0) % Plt Count 395 (150-450) x10^3/uL MPV 8.5 (7.5-11.0) fL Gran % 94.0 H (36.0-66.0) % Immature Gran % (Auto) 0.4 (0.00-0.4) % Nucleat RBC Rel Count 0.0 (0.00-0.1) % Eos # (Auto) 0 (0-0.5) x10^3/uL Immature Gran # (Auto) 0.09 H (0.00-0.03) x10^3u/L Absolute Lymphs (auto) 0.33 L (1.0-4.6) x10^3/uL Absolute Monos (auto) 0.79 (0.0-1.3) x10^3/uL Absolute Nucleated RBC 0.00 (0.00-0.01) x10^3u/L Lymphocytes % 1.6 L (24.0-44.0) % Monocytes % 3.9 (0.0-12.0) % Eosinophils % 0.0 (0.00-5.0) % Basophils % 0.1 (0.0-0.4) % Absolute Granulocytes 18.92 H (1.4-6.9) x10^3/uL Basophils # 0.03 (0-0.4) x10^3/uL PT 10.7 (9.4-12.5) SECONDS INR 1.01 (0.8-3.0) APTT 24.5 L (25.1-36.5) SECONDS Puncture Site pCO2 (35-45) mmHg pO2 (75-100) mmHg Base Excess (-2.0-2.0) O2 Saturation (94-100) g/dF ABG pH (7.35-7.45) ABG HCO3 (22-28) ABG O2 Sat (Measured) (95-100) % Arnaldo Test A-a Gradient a/A Ratio Hemoglobin Carboxyhemoglobin (0.0-6.9) % THgb Methemoglobin (1.4-1.5) % Temperature C POC O2 Flow Rate % Sodium 128 L (137-145) mmol/L Potassium 5.0 (3.5-5.1) mmol/L Chloride 90 L (98-107) mmol/L Carbon Dioxide 25 (22-30) mmol/L Anion Gap 18.0 H (5-15) MEQ/L BUN 55 H (9-20) mg/dL Creatinine 3.54 H (0.66-1.25) mg/dL Estimated GFR 20.9 ML/MIN Glucose 471 H (74-106) mg/dL POC Glucometer (74 to 106) mg/dL Lactic Acid (0.4-2.0) Calcium 9.3 (8.4-10.2) mg/dL Total Bilirubin 0.80 (0.2-1.3) mg/dL AST 29 (17-59) U/L ALT 23 (0-50) U/L Alkaline Phosphatase 196 H (38-126) U/L Troponin I (0.000-0.034) ng/mL Serum Total Protein 8.0 (6.3-8.2) g/dL Albumin 4.1 (3.5-5.0) g/dL Influenza Type A Ag (NEGATIVE) Influenza Type B Ag (NEGATIVE) RSV (PCR) (Negative) SARS-CoV-2 (PCR) (NEGATIVE) Slides for Path Review YES 09/05/22 Range/Units 21:37 WBC (4.0-10.5) x10^3/uL RBC (4.1-5.6) x10^6/uL Hgb (12.5-18.0) g/dL Hct (42-50) % MCV (78-100) fL MCH (26-32) pg MCHC (32-36) g/dL RDW (11.5-14.0) % Plt Count (150-450) x10^3/uL MPV (7.5-11.0) fL Gran % (36.0-66.0) % Immature Gran % (Auto) (0.00-0.4) % Nucleat RBC Rel Count (0.00-0.1) % Eos # (Auto) (0-0.5) x10^3/uL Immature Gran # (Auto) (0.00-0.03) x10^3u/L Absolute Lymphs (auto) (1.0-4.6) x10^3/uL Absolute Monos (auto) (0.0-1.3) x10^3/uL Absolute Nucleated RBC (0.00-0.01) x10^3u/L Lymphocytes % (24.0-44.0) % Monocytes % (0.0-12.0) % Eosinophils % (0.00-5.0) % Basophils % (0.0-0.4) % Absolute Granulocytes (1.4-6.9) x10^3/uL Basophils # (0-0.4) x10^3/uL PT (9.4-12.5) SECONDS INR (0.8-3.0) APTT (25.1-36.5) SECONDS Puncture Site pCO2 (35-45) mmHg pO2 (75-100) mmHg Base Excess (-2.0-2.0) O2 Saturation (94-100) g/dF ABG pH (7.35-7.45) ABG HCO3 (22-28) ABG O2 Sat (Measured) (95-100) % Arnaldo Test A-a Gradient a/A Ratio Hemoglobin Carboxyhemoglobin (0.0-6.9) % THgb Methemoglobin (1.4-1.5) % Temperature C POC O2 Flow Rate % Sodium (137-145) mmol/L Potassium (3.5-5.1) mmol/L Chloride (98-107) mmol/L Carbon Dioxide (22-30) mmol/L Anion Gap (5-15) MEQ/L BUN (9-20) mg/dL Creatinine (0.66-1.25) mg/dL Estimated GFR ML/MIN Glucose (74-106) mg/dL POC Glucometer 417 H (74 to 106) mg/dL Lactic Acid (0.4-2.0) Calcium (8.4-10.2) mg/dL Total Bilirubin (0.2-1.3) mg/dL AST (17-59) U/L ALT (0-50) U/L Alkaline Phosphatase (38-126) U/L Troponin I (0.000-0.034) ng/mL Serum Total Protein (6.3-8.2) g/dL Albumin (3.5-5.0) g/dL Influenza Type A Ag (NEGATIVE) Influenza Type B Ag (NEGATIVE) RSV (PCR) (Negative) SARS-CoV-2 (PCR) (NEGATIVE) Slides for Path Review - Progress Progress: improved Progress Note: 09/06/22 02:[address] Meehan due to elevated troponin/renal failure Pt [facility] bolus x3 15 units sq regular insulin for hyperglycemia 10units IV Labetalol for elevated BP 4mg IV Zofran for nausea/vomting 40mg IV Protonix 1.25mg IV Droperidol for nausea-vomiting/pain 324mg ASA chewable for elevated troponin 10units additional sq Regular insulin Glucose dropped into 120's so OJ and Faye Mist given. D5 1/2 NS started. Glucose still in 120's upon transfer Vital signs and nursing note reviewed All labs and CXR result reviewed and shared w patient Additional history per pt's mother 09/06/22 03:58 Discussed with : Elham Counseled pt/family regarding: lab results, diagnosis, rad results - Departure Departure Disposition: Transfer Clinical Impression: Acute on chronic renal failure, DM (diabetes mellitus), type 1, uncontrolled, Hypertensive urgency, Nausea, Vomiting, Lactic acidosis, Elevated troponin, COVID-19 Condition: Stable Critical Care Time: Yes Critical Care Time(excluding separately billable procedures): Critical 30-74 mins Referrals: VALENTINA STARKS [Primary Care Provider] - Follow up/PCP as directed
[2022-09-05 22:38] LABS: INFLUENZA A NEGATIVE (NEGATIVE); INFLUENZA B NEGATIVE (NEGATIVE); RESPIRATORY SYNCTIAL VIRUS NEGATIVE (Negative)
[2022-09-05] MEDS ORDERED: HUMULIN R SQ ONE (22:49)
[2022-09-05] MEDS ORDERED: HUMULIN R ONE (22:56)
[2022-09-05 23:04] LABS: SARS-CoV-2 Xpert Express POSITIVE (NEGATIVE)
[2022-09-06 00:02] LABS: Slide Review 1 YES
[2022-09-06 00:35] LABS: ANION GAP 16.9 MEQ/L (5-15); Calcium 8.2 mg/dL (8.4-10.2); Creatinine 1 3.32 mg/dL (0.66-1.25); EST GLOMERULAR FILTRATION RATE 22.5 ML/MIN; Potassium 4.5 mmol/L (3.5-5.1)
[2022-09-06] MEDS ORDERED: BABY ASPIRIN 81 MG CHEW PO ONE (01:51)
[2022-09-06] MEDS ORDERED: HUMULIN R SQ ONE (02:20)
[2022-09-06] MEDS ORDERED: Sodium Chloride 0.9% 1000 ML 1,000 ML ONE (02:23)
[2022-09-06] MEDS ORDERED: BABY ASPIRIN 81 MG CHEW ONE (02:23)
[2022-09-06] MEDS ORDERED: HUMULIN R ONE (02:23)
[2022-09-06] MEDS ORDERED: Sodium Chloride 0.9% 1000 ML 1,000 ML IV SCH (02:30)
[2022-09-06 02:51] VITALS: BP 118/67; PULSE 94
[2022-09-06] MEDS ORDERED: Dextrose 5%-1/2NS IV Soln. 500 ML 500 ML IV SCH (03:00)
[2022-09-06 04:03] VITALS: O2SAT 96
[2022-09-06 04:24] LABS: Appearance Clear (Clear); Bacteria None Seen /HPF (None Seen); Bilirubin Negative (Negative); Blood Small (Negative); Epithelial Cells None Seen /HPF (None Seen); Glucose, Urine >=1000 mg/dL (Negative); Ketones 40 (Negative); Leukocyte Esterase Negative (Negative); Nitrite Negative (Negative); Ph 5.5 (4.6-8.0); Protein,Urine Dip >=1000 (Negative); RBC 0-2 /HPF (0-5); Specific Gravity 1.025 (1.005-1.030); Urobilinogen 0.2 mg/dL (0.2); WBC 0-2 /HPF (0-5)
[2022-09-06 04:25] LABS: ADD URINE CULTURE? NO (NO)
--- NOTE | 2022-09-06 08:29 | XRAY ---
Indication: Chest pain. Comparison: July 24, 2022 Portable chest again demonstrates normal heart, lungs, and bony thorax.
== END 2022-09-06 03:10 | disposition short-term general hospital (02) ==
LOC: ED 21:12
DX: N17.9 Acute kidney failure, unspecified (principal); E10.22 Type 1 diabetes mellitus with diabetic chronic kidney disease; E10.65 Type 1 diabetes mellitus with hyperglycemia; I12.9 Hypertensive chronic kidney disease with stage 1 through stage 4 chronic kidney disease, or unspecified chronic kidney disease; N18.9 Chronic kidney disease, unspecified; Z79.4 Long term (current) use of insulin; I16.0 Hypertensive urgency; U07.1 COVID-19; R11.2 Nausea with vomiting, unspecified; E87.20 Acidosis, unspecified; R77.8 Other specified abnormalities of plasma proteins; R07.9 Chest pain, unspecified; Z28.310 Unvaccinated for COVID-19; E78.5 Hyperlipidemia, unspecified
CPT/HCPCS: 0241U; 36000; 36415; 36600; 71045; 80048; 80053; 81001; 82375; 82803; 82947; 83605; 84484; 85025; 85610; 85730; 93005; 93041; 96360; 96372; 96374; 96375; 99285; 99291; J1815; J2405; A9270-GY

== ENCOUNTER 2022-10-17 16:59 | Emergency (ER) | payer OTHER ==
[2022-10-17] MEDS ORDERED: Sodium Chloride 0.9% 1000 ML 1,000 ML IV STA ×2 (17:02→17:07)
[2022-10-17] MEDS ORDERED: Sodium Chloride 0.9% 1000 ML 1,000 ML ONE ×2 (17:09→17:30)
[2022-10-17 17:26] LABS: Absolute Neutrophil Ct (ANC) 5.44 x10^3/uL (1.4-6.9); BASOPHIL % 0.4 % (0.0-0.4); Basophil (Absolute #) 0.03 x10^3/uL (0-0.4); Eosinophil % 6.9 % (0.00-5.0); Eosinophil (Absolute #) 0.52 x10^3/uL (0-0.5); Hematocrit 30.3 % (42-50); Hemoglobin 10.1 g/dL (12.5-18.0); IMMATURE GRAN # 0.04 x10^3u/L (0.00-0.03); IMMATURE GRAN % 0.5 % (0.00-0.4); Lymphocytes % 9.3 % (24.0-44.0); Mean Cell Volume 85.4 fL (78-100); Mean Corpuscular Hemoglobin 28.5 pg (26-32); Mean Corpuscular Hgb Concent. 33.3 g/dL (32-36); Mean Platelet Volume 8.1 fL (7.5-11.0); Monocyte (Absolute #) 0.83 x10^3/uL (0.0-1.3); Neutrophil % 71.9 % (36.0-66.0); Platelet Count 442 x10^3/uL (150-450); Red Blood Count 3.55 x10^6/uL (4.1-5.6); Red Cell Distribution Width 12.5 % (11.5-14.0); White Blood Count 7.6 x10^3/uL (4.0-10.5)
--- NOTE | 2022-10-17 17:30 | ERPHSYRPT ---
- History of Present Illness Time Seen by Provider: 10/17/22 17:02 Source: patient Exam Limitations: no limitations Patient Subjective Stated Complaint: C/O SOB and dizziness that started approx 3 days ago. Denies pain. Triage Nursing Assessment: Patient brought back to ER in a w/c. He is alert and oriented. No SOB noted at this time. ROCHA WNL. Skin turgor <2 seconds. No cough present. Lungs clear. Physician History: Patient here is with dizziness and shortness of breath. Has been going on for 3 days. Patient is a type I diabetic. Seen here previously for DKA. Patient having some mild headaches. No vomiting today. Blood sugar 119 at home. Allergies/Adverse Reactions: No Known Drug Allergies Allergy (Verified 09/05/22 21:56) Hx Tetanus, Diphtheria Vaccination/Date Given: Yes Hx Influenza Vaccination/Date Given: No Hx Pneumococcal Vaccination/Date Given: Yes (10/01/2016) Immunizations Up to Date: Yes Travel Risk - International Travel Have you traveled outside of the country in past 3 weeks: No - Coronavirus Screening Are you exhibiting any of the following symptoms?: Yes Symptoms: Shortness of Breath Close contact with a COVID-19 positive Pt in past 14-21 Days: No - Vaccine Status Have you recieved a Covid-19 vaccination: No - Review of Systems Constitutional: No Fever, No Chills Eyes: No Symptoms Ears, Nose, & Throat: No Symptoms Respiratory: No Cough, No Dyspnea Cardiac: No Chest Pain, No Edema, No Syncope Abdominal/Gastrointestinal: No Abdominal Pain, No Nausea, No Vomiting, No Diarrhea Genitourinary Symptoms: No Dysuria Musculoskeletal: No Back Pain, No Neck Pain Skin: No Rash Neurological: No Dizziness, No Focal Weakness, No Sensory Changes Psychological: No Symptoms Endocrine: No Symptoms All Other Systems: Reviewed and Negative - Past Medical History Pertinent Past Medical History: Yes Neurological History: No Pertinent History ENT History: No Pertinent History Cardiac History: High Cholesterol, Hypertension Respiratory History: No Pertinent History Endocrine Medical History: Diabetes Type I Musculoskeletal History: No Pertinent History GI Medical History: No Pertinent History History: Renal Disease Psycho-Social History: Anxiety, Depression Male Reproductive Disorders: No Pertinent History Other Medical History: prior drug use , TOB positive use - Past Surgical History Past Surgical History: No Neuro Surgical History: No Pertinent History Cardiac: No Pertinent History Respiratory: No Pertinent History Gastrointestinal: No Pertinent History Genitourinary: No Pertinent History Musculoskeletal: No Pertinent History Male Surgical History: No Pertinent History Other Surgical History: . - Social History Smoking Status: Never smoker Exposure to second hand smoke: No Drug Use: none Patient Lives Alone: No Significant Family History: no pertinent family hx - Nursing Vital Signs Nursing Vital Signs: Initial Vital Signs Temperature 97 F 10/17/22 17:00 Pulse Rate 67 10/17/22 17:00 Respiratory Rate 20 10/17/22 17:00 Blood Pressure 101/65 10/17/22 17:00 O2 Sat by Pulse Oximetry 100 10/17/22 17:00 Pain Scale Pain Intensity 0 - Physical Exam General Appearance: no apparent distress, alert Eye Exam: PERRL/EOMI, eyes nml inspection Ears, Nose, Throat Exam: normal ENT inspection, TMs normal, pharynx normal, moist mucous membranes Neck Exam: normal inspection, non-tender, supple, full range of motion Respiratory Exam: normal breath sounds, lungs clear, No respiratory distress Cardiovascular Exam: regular rate/rhythm, normal heart sounds, normal peripheral pulses Gastrointestinal/Abdomen Exam: soft, normal bowel sounds, No tenderness, No mass Back Exam: normal inspection, normal range of motion, No CVA tenderness, No vertebral tenderness Extremity Exam: normal inspection, normal range of motion, pelvis stable Neurologic Exam: alert, oriented x 3, cooperative, normal mood/affect, nml cerebellar function, nml station & gait, sensation nml, No motor deficits Skin Exam: normal color, warm, dry, No rash Lymphatic Exam: No adenopathy SpO2: 100 - Course Nursing assessment & vital signs reviewed: Yes EKG Interpreted by Me: Sinus Rhythm Ordered Tests: Active Orders 24 hr Category Date Time Status EKG-ER Only STAT Care 10/17/22 17:02 Active IV Insertion STAT Care 10/17/22 17:02 Active POCT Glucose Check STAT Care 10/17/22 17:16 Active CHEST 1 VIEW (PORTABLE) Stat Exams 10/17/22 17:02 Taken BLOOD CULTURE Stat Lab 10/17/22 17:20 Received CBC W DIFF Stat Lab 10/17/22 17:10 Completed CMP Stat Lab 10/17/22 17:10 Completed ETHYL ALCOHOL Stat Lab 10/17/22 17:10 Completed Lactic Acid Stat Lab 10/17/22 17:03 Completed POCT GLUCOSE Stat Lab 10/17/22 17:14 Completed PROCALCITONIN Stat Lab 10/17/22 17:10 Completed UA W/RFX UR CULTURE Stat Lab 10/17/22 18:10 Completed Medication Summary Discontinued Medications Generic Name Dose Route Start Last Admin Trade Name Kelsie PRN Reason Stop Dose Admin Sodium Chloride 1,000 mls @ 999 mls/hr 10/17/22 17:02 10/17/22 18:36 Sodium Chloride 0.9% 1000 Ml IV 10/17/22 18:02 Infused .Q1H1M STA Infusion Sodium Chloride 1,000 mls @ 999 mls/hr 10/17/22 17:07 10/17/22 18:07 Sodium Chloride 0.9% 1000 Ml IV 10/17/22 18:07 999 mls/hr .Q1H1M STA Administration Sodium Chloride Confirm 10/17/22 17:09 Sodium Chloride 0.9% 1000 Ml Administered 10/17/22 17:10 Dose 1,000 mls @ ud .ROUTE .STK-MED ONE Sodium Chloride Confirm 10/17/22 17:30 Sodium Chloride 0.9% 1000 Ml Administered 10/17/22 17:31 Dose 1,000 mls @ ud .ROUTE .STK-MED ONE Lab/Rad Data: Laboratory Result Diagrams 10/17/22 17:10 10/17/22 17:10 Laboratory Results 10/17/22 10/17/22 10/17/22 Range/Units 18:10 17:20 17:20 WBC (4.0-10.5) x10^3/uL RBC (4.1-5.6) x10^6/uL Hgb (12.5-18.0) g/dL Hct (42-50) % MCV (78-100) fL MCH (26-32) pg MCHC (32-36) g/dL RDW (11.5-14.0) % Plt Count (150-450) x10^3/uL MPV (7.5-11.0) fL Gran % (36.0-66.0) % Immature Gran % (Auto) (0.00-0.4) % Nucleat RBC Rel Count (0.00-0.1) % Eos # (Auto) (0-0.5) x10^3/uL Immature Gran # (Auto) (0.00-0.03) x10^3u/L Absolute Lymphs (auto) (1.0-4.6) x10^3/uL Absolute Monos (auto) (0.0-1.3) x10^3/uL Absolute Nucleated RBC (0.00-0.01) x10^3u/L Lymphocytes % (24.0-44.0) % Monocytes % (0.0-12.0) % Eosinophils % (0.00-5.0) % Basophils % (0.0-0.4) % Absolute Granulocytes (1.4-6.9) x10^3/uL Basophils # (0-0.4) x10^3/uL Sodium (137-145) mmol/L Potassium (3.5-5.1) mmol/L Chloride (98-107) mmol/L Carbon Dioxide (22-30) mmol/L Anion Gap (5-15) MEQ/L BUN (9-20) mg/dL Creatinine (0.66-1.25) mg/dL Estimated GFR ML/MIN Glucose (74-106) mg/dL POC Glucometer (74 to 106) mg/dL Lactic Acid (0.4-2.0) Calcium (8.4-10.2) mg/dL Total Bilirubin (0.2-1.3) mg/dL AST (17-59) U/L ALT (0-50) U/L Alkaline Phosphatase (38-126) U/L Serum Total Protein (6.3-8.2) g/dL Albumin (3.5-5.0) g/dL Procalcitonin (0.030-0.080) ng/mL Urine Color Yellow (Yellow) Urine Appearance Clear (Clear) Urine pH 6.5 (4.6-8.0) Ur Specific Finley 1.015 (1.005-1.030) Urine Protein 300 A (Negative) Urine Glucose (UA) 250 A (Negative) mg/dL Urine Ketones Negative (Negative) Urine Blood Negative (Negative) Urine Nitrite Negative (Negative) Urine Bilirubin Negative (Negative) Urine Urobilinogen 0.2 (0.2) mg/dL Ur Leukocyte Esterase Negative (Negative) U Hyaline Cast (Auto) 3-5 A (0-2) /LPF Urine Microscopic RBC 0-2 (0-5) /HPF Urine Microscopic WBC 0-2 (0-5) /HPF Ur Epithelial Cells None Seen (None Seen) /HPF Urine Bacteria None Seen (None Seen) /HPF Urine Culture Reflexed NO (NO) Ethyl Alcohol (0-10) mg/dL Influenza Type A Ag NEGATIVE (NEGATIVE) Influenza Type B Ag NEGATIVE (NEGATIVE) RSV (PCR) NEGATIVE (Negative) SARS-CoV-2 (PCR) NEGATIVE (NEGATIVE) Group A Strep Antibody NOT DETECTED (NEGATIVE) 10/17/22 10/17/22 10/17/22 Range/Units 17:14 17:10 17:10 WBC (4.0-10.5) x10^3/uL RBC (4.1-5.6) x10^6/uL Hgb (12.5-18.0) g/dL Hct (42-50) % MCV (78-100) fL MCH (26-32) pg MCHC (32-36) g/dL RDW (11.5-14.0) % Plt Count (150-450) x10^3/uL MPV (7.5-11.0) fL Gran % (36.0-66.0) % Immature Gran % (Auto) (0.00-0.4) % Nucleat RBC Rel Count (0.00-0.1) % Eos # (Auto) (0-0.5) x10^3/uL Immature Gran # (Auto) (0.00-0.03) x10^3u/L Absolute Lymphs (auto) (1.0-4.6) x10^3/uL Absolute Monos (auto) (0.0-1.3) x10^3/uL Absolute Nucleated RBC (0.00-0.01) x10^3u/L Lymphocytes % (24.0-44.0) % Monocytes % (0.0-12.0) % Eosinophils % (0.00-5.0) % Basophils % (0.0-0.4) % Absolute Granulocytes (1.4-6.9) x10^3/uL Basophils # (0-0.4) x10^3/uL Sodium 131 L (137-145) mmol/L Potassium 4.4 (3.5-5.1) mmol/L Chloride 96 L (98-107) mmol/L Carbon Dioxide 26 (22-30) mmol/L Anion Gap 12.5 (5-15) MEQ/L BUN 47 H (9-20) mg/dL Creatinine 3.49 H (0.66-1.25) mg/dL Estimated GFR 21.1 ML/MIN Glucose 129 H (74-106) mg/dL POC Glucometer 126 H (74 to 106) mg/dL Lactic Acid (0.4-2.0) Calcium 9.3 (8.4-10.2) mg/dL Total Bilirubin 0.40 (0.2-1.3) mg/dL AST 25 (17-59) U/L ALT 17 (0-50) U/L Alkaline Phosphatase 161 H (38-126) U/L Serum Total Protein 7.2 (6.3-8.2) g/dL Albumin 3.6 (3.5-5.0) g/dL Procalcitonin 0.198 H (0.030-0.080) ng/mL Urine Color (Yellow) Urine Appearance (Clear) Urine pH (4.6-8.0) Ur Specific Finley (1.005-1.030) Urine Protein (Negative) Urine Glucose (UA) (Negative) mg/dL Urine Ketones (Negative) Urine Blood (Negative) Urine Nitrite (Negative) Urine Bilirubin (Negative) Urine Urobilinogen (0.2) mg/dL Ur Leukocyte Esterase (Negative) U Hyaline Cast (Auto) (0-2) /LPF Urine Microscopic RBC (0-5) /HPF Urine Microscopic WBC (0-5) /HPF Ur Epithelial Cells (None Seen) /HPF Urine Bacteria (None Seen) /HPF Urine Culture Reflexed (NO) Ethyl Alcohol < 10 (0-10) mg/dL Influenza Type A Ag (NEGATIVE) Influenza Type B Ag (NEGATIVE) RSV (PCR) (Negative) SARS-CoV-2 (PCR) (NEGATIVE) Group A Strep Antibody (NEGATIVE) 10/17/22 10/17/22 Range/Units 17:10 17:03 WBC 7.6 (4.0-10.5) x10^3/uL RBC 3.55 L (4.1-5.6) x10^6/uL Hgb 10.1 L (12.5-18.0) g/dL Hct 30.3 L (42-50) % MCV 85.4 (78-100) fL MCH 28.5 (26-32) pg MCHC 33.3 (32-36) g/dL RDW 12.5 (11.5-14.0) % Plt Count 442 (150-450) x10^3/uL MPV 8.1 (7.5-11.0) fL Gran % 71.9 H (36.0-66.0) % Immature Gran % (Auto) 0.5 H (0.00-0.4) % Nucleat RBC Rel Count 0.0 (0.00-0.1) % Eos # (Auto) 0.52 H (0-0.5) x10^3/uL Immature Gran # (Auto) 0.04 H (0.00-0.03) x10^3u/L Absolute Lymphs (auto) 0.70 L (1.0-4.6) x10^3/uL Absolute Monos (auto) 0.83 (0.0-1.3) x10^3/uL Absolute Nucleated RBC 0.00 (0.00-0.01) x10^3u/L Lymphocytes % 9.3 L (24.0-44.0) % Monocytes % 11.0 (0.0-12.0) % Eosinophils % 6.9 H (0.00-5.0) % Basophils % 0.4 (0.0-0.4) % Absolute Granulocytes 5.44 (1.4-6.9) x10^3/uL Basophils # 0.03 (0-0.4) x10^3/uL Sodium (137-145) mmol/L Potassium (3.5-5.1) mmol/L Chloride (98-107) mmol/L Carbon Dioxide (22-30) mmol/L Anion Gap (5-15) MEQ/L BUN (9-20) mg/dL Creatinine (0.66-1.25) mg/dL Estimated GFR ML/MIN Glucose (74-106) mg/dL POC Glucometer (74 to 106) mg/dL Lactic Acid 2.0 (0.4-2.0) Calcium (8.4-10.2) mg/dL Total Bilirubin (0.2-1.3) mg/dL AST (17-59) U/L ALT (0-50) U/L Alkaline Phosphatase (38-126) U/L Serum Total Protein (6.3-8.2) g/dL Albumin (3.5-5.0) g/dL Procalcitonin (0.030-0.080) ng/mL Urine Color (Yellow) Urine Appearance (Clear) Urine pH (4.6-8.0) Ur Specific Finley (1.005-1.030) Urine Protein (Negative) Urine Glucose (UA) (Negative) mg/dL Urine Ketones (Negative) Urine Blood (Negative) Urine Nitrite (Negative) Urine Bilirubin (Negative) Urine Urobilinogen (0.2) mg/dL Ur Leukocyte Esterase (Negative) U Hyaline Cast (Auto) (0-2) /LPF Urine Microscopic RBC (0-5) /HPF Urine Microscopic WBC (0-5) /HPF Ur Epithelial Cells (None Seen) /HPF Urine Bacteria (None Seen) /HPF Urine Culture Reflexed (NO) Ethyl Alcohol (0-10) mg/dL Influenza Type A Ag (NEGATIVE) Influenza Type B Ag (NEGATIVE) RSV (PCR) (Negative) SARS-CoV-2 (PCR) (NEGATIVE) Group A Strep Antibody (NEGATIVE) - Progress Progress: improved Progress Note: 10/17/22 17:29 differential diagnosis includes: PNA, STEMI, NSTEMI, other infection, musculoskeletal pain, pneumothorax, DKA, Covid/flu/RSV - We'll obtain basic labs, fluids, EKG, troponin, chest x-ray - I feel comfortable with one time negative troponin given symptoms have improved and started greater then 6 hours ago. - EKG shows no ST changes - my read. See full read below. - O2 saturations consistently greater than 95%. - CXR shows no pneumonia, pneumothorax - my read - no other obvious lab abnormalities 10/17/22 18:42 Patient continues to look well after fluids. Making urine without difficulty. UA negative Rest of labs have returned negative. Plan for most likely discharge home. Patient feeling improved. Continues to make urine. Return here for new or changing symptoms Counseled pt/family regarding: lab results, diagnosis, need for follow-up, rad results - Departure Departure Disposition: Home Clinical Impression: Lightheadedness, Bronchitis Condition: Stable Critical Care Time: No Referrals: VALENTINA STARKS [Primary Care Provider] - Follow up/PCP as directed Instructions: Shortness of Breath (Dyspnea) (DC) Prescriptions: Ondansetron ODT 4 MG [Zofran Odt 4 mg] 4 mg PO Q6H PRN PRN #10 tablet PRN Reason: Vomiting Azithromycin 250 mg [Zithromax 250 MG TABLET] 250 mg PO ZPACK #6 tablet
[2022-10-17 17:40] LABS: ALBUMIN 3.6 g/dL (3.5-5.0); ALKALINE PHOSPHATASE 161 U/L (38-126); ANION GAP 12.5 MEQ/L (5-15); BLOOD UREA NITROGEN 47 mg/dL (9-20); CHLORIDE 96 mmol/L (98-107); Calcium 9.3 mg/dL (8.4-10.2); Carbon Dioxide 26 mmol/L (22-30); Creatinine 1 3.49 mg/dL (0.66-1.25); EST GLOMERULAR FILTRATION RATE 21.1 ML/MIN; ETHYL ALCOHOL < 10 mg/dL (0-10); Glucose 129 mg/dL (74-106); Potassium 4.4 mmol/L (3.5-5.1); SGOT/AST 25 U/L (17-59); SGPT/ALT 17 U/L (0-50); SODIUM 131 mmol/L (137-145); Total Protein 7.2 g/dL (6.3-8.2)
[2022-10-17 18:05] LABS: INFLUENZA A NEGATIVE (NEGATIVE); INFLUENZA B NEGATIVE (NEGATIVE); RESPIRATORY SYNCTIAL VIRUS NEGATIVE (Negative); SARS-CoV-2 Xpert Express NEGATIVE (NEGATIVE)
[2022-10-17 18:44] LABS: Appearance Clear (Clear); Bacteria None Seen /HPF (None Seen); Bilirubin Negative (Negative); Blood Negative (Negative); Epithelial Cells None Seen /HPF (None Seen); Glucose, Urine 250 mg/dL (Negative); Ketones Negative (Negative); Leukocyte Esterase Negative (Negative); Nitrite Negative (Negative); Ph 6.5 (4.6-8.0); Protein,Urine Dip 300 (Negative); RBC 0-2 /HPF (0-5); Specific Gravity 1.015 (1.005-1.030); Urobilinogen 0.2 mg/dL (0.2); WBC 0-2 /HPF (0-5)
[2022-10-17 18:45] LABS: ADD URINE CULTURE? NO (NO)
[2022-10-17 19:04] VITALS: BP 158/95; PULSE 60; O2SAT 99
--- NOTE | 2022-10-18 08:35 | XRAY ---
Indication: Chest pain. Pneumonia. Vertigo. Comparison: September 05, 2022 Portable chest again demonstrates normal heart, lungs, and bony thorax.
== END 2022-10-17 19:08 | disposition home or self-care (01) ==
LOC: ED 16:59
DX: R42 Dizziness and giddiness (principal); J40 Bronchitis, not specified as acute or chronic; R06.02 Shortness of breath; R51.9 Headache, unspecified; E10.9 Type 1 diabetes mellitus without complications; E78.5 Hyperlipidemia, unspecified; I10 Essential (primary) hypertension; Z28.310 Unvaccinated for COVID-19
CPT/HCPCS: 0241U; 36000; 36415; 71045; 80053; 81001; 82077; 82947; 83605; 84145; 85025; 87040; 87651; 93005; 99284

== ENCOUNTER 2022-10-23 16:16 | Inpatient (IN) | payer OTHER ==
[2022-10-23] MEDS ORDERED: Sodium Chloride 0.9% 1000 ML 1,000 ML IV STA (16:26)
[2022-10-23 16:54] LABS: Absolute Neutrophil Ct (ANC) 6.63 x10^3/uL (1.4-6.9); BASOPHIL % 0.6 % (0.0-0.4); Basophil (Absolute #) 0.06 x10^3/uL (0-0.4); Eosinophil % 9.2 % (0.00-5.0); Eosinophil (Absolute #) 0.91 x10^3/uL (0-0.5); Hematocrit 32.3 % (42-50); IMMATURE GRAN # 0.05 x10^3u/L (0.00-0.03); IMMATURE GRAN % 0.5 % (0.00-0.4); Lymphocyte (Absolute #) 1.08 x10^3/uL (1.0-4.6); Lymphocytes % 10.9 % (24.0-44.0); Mean Cell Volume 83.7 fL (78-100); Mean Corpuscular Hemoglobin 28.5 pg (26-32); Mean Corpuscular Hgb Concent. 34.1 g/dL (32-36); Mean Platelet Volume 8.1 fL (7.5-11.0); Monocyte (Absolute #) 1.16 x10^3/uL (0.0-1.3); Monocytes % 11.7 % (0.0-12.0); Neutrophil % 67.1 % (36.0-66.0); Platelet Count 417 x10^3/uL (150-450); Red Blood Count 3.86 x10^6/uL (4.1-5.6); Red Cell Distribution Width 12.6 % (11.5-14.0); White Blood Count 9.9 x10^3/uL (4.0-10.5)
[2022-10-23 17:05] LABS: ALBUMIN 4.1 g/dL (3.5-5.0); BILIRUBIN,TOTAL 0.6 mg/dL (0.2-1.3); Calcium 9.7 mg/dL (8.4-10.2); Creatinine 1 3.07 mg/dL (0.66-1.25); EST GLOMERULAR FILTRATION RATE 24.5 ML/MIN; Potassium 4.8 mmol/L (3.5-5.1); Total Protein 7.9 g/dL (6.3-8.2)
--- NOTE | 2022-10-23 17:14 | ERPHSYRPT ---
- History of Present Illness Time Seen by Provider: 10/23/22 17:09 Source: patient Exam Limitations: no limitations Patient Subjective Stated Complaint: Hyperglycemia Triage Nursing Assessment: Patient ambulated back to ED and transferred self to bed. Patient's skin sallow, warm and dry. Patient A+O X 3. Patient was at follow up appointment with Dr. Maxwell when his blood sugar meter ran high and was sent to ED. Patient states he just started vomiting as he walked into ED. Patient also complains of abdominal pain 5/10. Physician History: Patient is a 37-year-old male with a history of diabetes presents to our ED as a referral from his primary care's office for evaluation of hyperglycemia. Patient presents to his primary care doctor's office today. Patient was feeling nauseous. He received Zofran. Patient states his blood sugar was checked and observed to be higher than the machine would not register. Patient was sent to our ED for evaluation. Patient also complains of generalized abdominal pain. No trauma. No fever. No diarrhea. No rash. No diaphoresis. Symptoms are constant. Symptoms are moderate in intensity. No specific worsening improving factors. Patient voices no other complaints or concerns at this time. Portions of this note were created with voice recognition technology. There may be grammatical, spelling, punctuation or sound alike errors Timing/Duration: today Severity: moderate Modifying Factors: Improves With: nothing Associated Symptoms: denies symptoms Allergies/Adverse Reactions: No Known Drug Allergies Allergy (Verified 10/23/22 16:23) Hx Tetanus, Diphtheria Vaccination/Date Given: Yes Hx Influenza Vaccination/Date Given: No Hx Pneumococcal Vaccination/Date Given: Yes (10/01/2016) Immunizations Up to Date: Yes Travel Risk - International Travel Have you traveled outside of the country in past 3 weeks: No - Coronavirus Screening Are you exhibiting any of the following symptoms?: No Close contact with a COVID-19 positive Pt in past 14-21 Days: No - Vaccine Status Have you recieved a Covid-19 vaccination: No - Review of Systems Constitutional: No Symptoms, No Fever, No Chills Eyes: No Symptoms Ears, Nose, & Throat: No Symptoms Respiratory: No Symptoms, No Cough, No Dyspnea Cardiac: No Symptoms, No Chest Pain, No Edema, No Syncope Abdominal/Gastrointestinal: No Symptoms, No Abdominal Pain, No Nausea, No Vomiting, No Diarrhea Genitourinary Symptoms: No Symptoms, No Dysuria Musculoskeletal: No Symptoms, No Back Pain, No Neck Pain Skin: No Symptoms, No Rash Neurological: No Symptoms, No Dizziness, No Focal Weakness, No Sensory Changes Psychological: No Symptoms Endocrine: No Symptoms Hematologic/Lymphatic: No Symptoms Immunological/Allergic: No Symptoms All Other Systems: Reviewed and Negative - Past Medical History Pertinent Past Medical History: Yes Neurological History: No Pertinent History ENT History: No Pertinent History Cardiac History: High Cholesterol, Hypertension Respiratory History: No Pertinent History Endocrine Medical History: Diabetes Type I Musculoskeletal History: No Pertinent History GI Medical History: No Pertinent History History: Renal Disease Psycho-Social History: Anxiety, Depression Male Reproductive Disorders: No Pertinent History Other Medical History: prior drug use , TOB positive use - Past Surgical History Past Surgical History: No Neuro Surgical History: No Pertinent History Cardiac: No Pertinent History Respiratory: No Pertinent History Gastrointestinal: No Pertinent History Genitourinary: No Pertinent History Musculoskeletal: No Pertinent History Male Surgical History: No Pertinent History Other Surgical History: . - Social History Smoking Status: Never smoker Exposure to second hand smoke: No Drug Use: none Patient Lives Alone: No Significant Family History: no pertinent family hx - Nursing Vital Signs Nursing Vital Signs: Initial Vital Signs Temperature 97.9 F 10/23/22 16:24 Pulse Rate 105 H 10/23/22 16:24 Respiratory Rate 20 10/23/22 16:24 Blood Pressure 228/139 10/23/22 16:24 O2 Sat by Pulse Oximetry 98 10/23/22 16:24 Pain Scale Pain Intensity 4 - Physical Exam General Appearance: no apparent distress, alert Eye Exam: PERRL/EOMI, eyes nml inspection Ears, Nose, Throat Exam: normal ENT inspection, TMs normal, pharynx normal, moist mucous membranes Neck Exam: normal inspection, non-tender, supple, full range of motion Respiratory Exam: normal breath sounds, lungs clear, airway intact, No respiratory distress Cardiovascular Exam: regular rate/rhythm, normal heart sounds, normal peripheral pulses Gastrointestinal/Abdomen Exam: soft, normal bowel sounds, No tenderness, No mass Back Exam: normal inspection, normal range of motion, No CVA tenderness, No vertebral tenderness Extremity Exam: normal inspection, normal range of motion, pelvis stable Neurologic Exam: alert, oriented x 3, cooperative, normal mood/affect, nml cerebellar function, nml station & gait, sensation nml, No motor deficits Skin Exam: normal color, warm, dry, No rash Lymphatic Exam: No adenopathy SpO2 Interpretation: normal SpO2: 96 O2 Delivery: Room Air - Course Nursing assessment & vital signs reviewed: Yes EKG Interpreted by Me: RATE (91), Sinus Rhythm, NORMAL AXIS, NORMAL INTERVALS - CT Exams Abdomen/Pelvis CT Interpretation: Tele-radiologist Report (Compared to 07/23/2022 stable small hiatal hernia with worsening moderate diffuse fecal stasis. Remaining abdomen pelvis negative.) Ordered Tests: Active Orders 24 hr Category Date Time Status Diagnostic Radiologic Technologist STAT Care 10/23/22 16:27 Active EKG-ER Only STAT Care 10/23/22 16:55 Active IV Insertion STAT Care 10/23/22 16:26 Active POCT Glucose Check STAT Care 10/23/22 16:33 Active Pulse Oximetry (ED) STAT Care 10/23/22 16:26 Active ABDOMEN AND PELVIS W/0 CONTRAS [CT] Stat Exams 10/23/22 17:11 Taken CBC W DIFF Stat Lab 10/23/22 16:30 Completed CMP Stat Lab 10/23/22 16:30 Completed CULTURE,URINE Stat Lab 10/23/22 18:02 Received POCT GLUCOSE Stat Lab 10/23/22 16:31 Completed TROPONIN Q4H Lab 10/23/22 16:30 Completed TROPONIN Q4H Lab 10/23/22 20:30 Ordered TROPONIN Q4H Lab 10/24/22 00:30 Ordered UA W/RFX UR CULTURE Stat Lab 10/23/22 18:02 Completed Transfer Order Routine Transfer 10/23/22 Ordered Medication Summary Discontinued Medications Generic Name Dose Route Start Last Admin Trade Name Kelsie PRN Reason Stop Dose Admin Sodium Chloride 1,000 mls @ 999 mls/hr 10/23/22 16:26 10/23/22 18:38 Sodium Chloride 0.9% 1000 Ml IV 10/23/22 17:26 Infused .Q1H1M STA Infusion Sodium Chloride Confirm 10/23/22 17:36 Sodium Chloride 0.9% 1000 Ml Administered 10/23/22 17:37 Dose 1,000 mls @ ud .ROUTE .STK-MED ONE Lab/Rad Data: Laboratory Result Diagrams 10/23/22 16:30 10/23/22 16:30 Laboratory Results 10/23/22 10/23/22 10/23/22 Range/Units 18:02 16:45 16:31 WBC (4.0-10.5) x10^3/uL RBC (4.1-5.6) x10^6/uL Hgb (12.5-18.0) g/dL Hct (42-50) % MCV (78-100) fL MCH (26-32) pg MCHC (32-36) g/dL RDW (11.5-14.0) % Plt Count (150-450) x10^3/uL MPV (7.5-11.0) fL Gran % (36.0-66.0) % Immature Gran % (Auto) (0.00-0.4) % Nucleat RBC Rel Count (0.00-0.1) % Eos # (Auto) (0-0.5) x10^3/uL Immature Gran # (Auto) (0.00-0.03) x10^3u/L Absolute Lymphs (auto) (1.0-4.6) x10^3/uL Absolute Monos (auto) (0.0-1.3) x10^3/uL Absolute Nucleated RBC (0.00-0.01) x10^3u/L Lymphocytes % (24.0-44.0) % Monocytes % (0.0-12.0) % Eosinophils % (0.00-5.0) % Basophils % (0.0-0.4) % Absolute Granulocytes (1.4-6.9) x10^3/uL Basophils # (0-0.4) x10^3/uL Sodium (137-145) mmol/L Potassium (3.5-5.1) mmol/L Chloride (98-107) mmol/L Carbon Dioxide (22-30) mmol/L Anion Gap (5-15) MEQ/L BUN (9-20) mg/dL Creatinine (0.66-1.25) mg/dL Estimated GFR ML/MIN Glucose (74-106) mg/dL POC Glucometer 377 H (74 to 106) mg/dL Calcium (8.4-10.2) mg/dL Total Bilirubin (0.2-1.3) mg/dL AST (17-59) U/L ALT (0-50) U/L Alkaline Phosphatase (38-126) U/L Troponin I (0.000-0.034) ng/mL Serum Total Protein (6.3-8.2) g/dL Albumin (3.5-5.0) g/dL Urine Color Yellow (Yellow) Urine Appearance Clear (Clear) Urine pH 6.5 (4.6-8.0) Ur Specific [place] 1.020 (1.005-1.030) Urine Protein 300 A (Negative) Urine Glucose (UA) >=1000 A (Negative) mg/dL Urine Ketones Trace A (Negative) Urine Blood Trace (Negative) Urine Nitrite Negative (Negative) Urine Bilirubin Negative (Negative) Urine Urobilinogen 0.2 (0.2) mg/dL Ur Leukocyte Esterase Negative (Negative) U Hyaline Cast (Auto) NONE SEEN (0-2) /LPF Urine Microscopic RBC 6-10 A (0-5) /HPF Urine Microscopic WBC 0-2 (0-5) /HPF Ur Epithelial Cells None Seen (None Seen) /HPF Urine Bacteria None Seen (None Seen) /HPF Urine Culture Reflexed YES (NO) Influenza Type A Ag NEGATIVE (NEGATIVE) Influenza Type B Ag NEGATIVE (NEGATIVE) RSV (PCR) NEGATIVE (Negative) SARS-CoV-2 (PCR) NEGATIVE (NEGATIVE) 10/23/22 10/23/22 10/23/22 Range/Units 16:30 16:30 16:30 WBC 9.9 (4.0-10.5) x10^3/uL RBC 3.86 L (4.1-5.6) x10^6/uL Hgb 11.0 L (12.5-18.0) g/dL Hct 32.3 L (42-50) % MCV 83.7 (78-100) fL MCH 28.5 (26-32) pg MCHC 34.1 (32-36) g/dL RDW 12.6 (11.5-14.0) % Plt Count 417 (150-450) x10^3/uL MPV 8.1 (7.5-11.0) fL Gran % 67.1 H (36.0-66.0) % Immature Gran % (Auto) 0.5 H (0.00-0.4) % Nucleat RBC Rel Count 0.0 (0.00-0.1) % Eos # (Auto) 0.91 H (0-0.5) x10^3/uL Immature Gran # (Auto) 0.05 H (0.00-0.03) x10^3u/L Absolute Lymphs (auto) 1.08 (1.0-4.6) x10^3/uL Absolute Monos (auto) 1.16 (0.0-1.3) x10^3/uL Absolute Nucleated RBC 0.00 (0.00-0.01) x10^3u/L Lymphocytes % 10.9 L (24.0-44.0) % Monocytes % 11.7 (0.0-12.0) % Eosinophils % 9.2 H (0.00-5.0) % Basophils % 0.6 (0.0-0.4) % Absolute Granulocytes 6.63 (1.4-6.9) x10^3/uL Basophils # 0.06 (0-0.4) x10^3/uL Sodium 131 L (137-145) mmol/L Potassium 4.8 (3.5-5.1) mmol/L Chloride 94 L (98-107) mmol/L Carbon Dioxide 26 (22-30) mmol/L Anion Gap 15.0 (5-15) MEQ/L BUN 39 H (9-20) mg/dL Creatinine 3.07 H (0.66-1.25) mg/dL Estimated GFR 24.5 ML/MIN Glucose 473 H (74-106) mg/dL POC Glucometer (74 to 106) mg/dL Calcium 9.7 (8.4-10.2) mg/dL Total Bilirubin 0.60 (0.2-1.3) mg/dL AST 26 (17-59) U/L ALT 20 (0-50) U/L Alkaline Phosphatase 219 H (38-126) U/L Troponin I 0.038 H* (0.000-0.034) ng/mL Serum Total Protein 7.9 (6.3-8.2) g/dL Albumin 4.1 (3.5-5.0) g/dL Urine Color (Yellow) Urine Appearance (Clear) Urine pH (4.6-8.0) Ur Specific [place] (1.005-1.030) Urine Protein (Negative) Urine Glucose (UA) (Negative) mg/dL Urine Ketones (Negative) Urine Blood (Negative) Urine Nitrite (Negative) Urine Bilirubin (Negative) Urine Urobilinogen (0.2) mg/dL Ur Leukocyte Esterase (Negative) U Hyaline Cast (Auto) (0-2) /LPF Urine Microscopic RBC (0-5) /HPF Urine Microscopic WBC (0-5) /HPF Ur Epithelial Cells (None Seen) /HPF Urine Bacteria (None Seen) /HPF Urine Culture Reflexed (NO) Influenza Type A Ag (NEGATIVE) Influenza Type B Ag (NEGATIVE) RSV (PCR) (Negative) SARS-CoV-2 (PCR) (NEGATIVE) - Progress Progress: improved Progress Note: Patient is a 37-year-old male with a history of diabetes presents to our ED as a referral from primary care doctor for hyperglycemia. Patient also experiencing generalized weakness nausea and vomiting. Physical exam reveals mild abdominal pain. Testing ordered include CBC CMP UA COVID test troponin. CT abdomen pelvis ordered. EKG ordered. Work-up reveals acute renal injury dehydration and elevated troponin. Elevated troponin likely due to dehydration/acute renal injury. Patient does not have any chest pain. Complexity of problem addressed is moderate. Patient presentation is acute with systemic symptoms. No critical care time. Complexity of data reviewed and analyzed is moderate. Testing ordered. Testing reviewed. Patient's mother at bedside also provided information towards HPI. Independent interpretation of EKG performed. Case discussed with Dr. Maxwell who accepts admission to observation. Risk of complication and or risk of morbidity/mortality of patient management is high. Patient will be hospitalized. Patient received IV treatment/hydration for management of dehydration. Plan of care discussed with patient. He agrees to admission [facility] for further evaluation and treatment. Patient reassessed. He feels better. Patient still feels weak. He states he is not ready to go home at this time. Portions of this note were created with voice recognition technology. There may be grammatical, spelling, punctuation or sound alike errors 10/23/22 19:[address] Hasmukh Will see patient in: hospital (observation) Counseled pt/family regarding: lab results, diagnosis, rad results - Departure Departure Disposition: Observation Clinical Impression: Hyponatremia, Hyperglycemia, Chronic renal insufficiency, Hiatal hernia, Diffuse fecal stasis, Elevated troponin Condition: Stable Critical Care Time: No Referrals: VALENTINA STARKS [Primary Care Provider] - Follow up/PCP as directed
[2022-10-23 17:28] LABS: INFLUENZA A NEGATIVE (NEGATIVE); INFLUENZA B NEGATIVE (NEGATIVE); RESPIRATORY SYNCTIAL VIRUS NEGATIVE (Negative); SARS-CoV-2 Xpert Express NEGATIVE (NEGATIVE)
[2022-10-23] MEDS ORDERED: Sodium Chloride 0.9% 1000 ML 0 ML ONE (17:36)
[2022-10-23 18:43] LABS: Appearance Clear (Clear); Bacteria None Seen /HPF (None Seen); Bilirubin Negative (Negative); Blood Trace (Negative); Epithelial Cells None Seen /HPF (None Seen); Glucose, Urine >=1000 mg/dL (Negative); Hyaline Casts NONE SEEN /LPF (0-2); Ketones Trace (Negative); Leukocyte Esterase Negative (Negative); Nitrite Negative (Negative); Ph 6.5 (4.6-8.0); Protein,Urine Dip 300 (Negative); Urobilinogen 0.2 mg/dL (0.2); WBC 0-2 /HPF (0-5)
[2022-10-23 18:47] LABS: ADD URINE CULTURE? YES (NO)
[2022-10-23] MEDS ORDERED: Zofran 4 MG/2 ML VIAL IV STA (20:50)
[2022-10-23] MEDS ORDERED: Zofran 4 MG/2 ML VIAL ONE (20:51)
[2022-10-23] MEDS: Sodium Chloride 0.9% 1000 ML 1,000 ML IV SCH (21:37)
[2022-10-23] MEDS: MORPHINE SULFATE 2 MG INJ IV PRN (21:37)
[2022-10-23] MEDS ORDERED: Pepcid 20 MG PO PRN (22:38)
[2022-10-23] MEDS: Zofran 4 MG/2 ML VIAL IV PRN (23:02)
[2022-10-23] MEDS: Apresoline 25 MG TABLET PO SCH (23:03)
[2022-10-23] MEDS: Coreg 3.125 MG PO SCH (23:03)
[2022-10-24] MEDS ORDERED: APRESOLINE 20 MG/ML INJ IV ONE (00:39)
[2022-10-24 02:29] LABS: Absolute Neutrophil Ct (ANC) 9.04 x10^3/uL (1.4-6.9); BASOPHIL % 0.4 % (0.0-0.4); Basophil (Absolute #) 0.04 x10^3/uL (0-0.4); Eosinophil % 0.9 % (0.00-5.0); Eosinophil (Absolute #) 0.09 x10^3/uL (0-0.5); Hematocrit 30.3 % (42-50); Hemoglobin 10.2 g/dL (12.5-18.0); IMMATURE GRAN # 0.05 x10^3u/L (0.00-0.03); IMMATURE GRAN % 0.5 % (0.00-0.4); Lymphocyte (Absolute #) 0.47 x10^3/uL (1.0-4.6); Lymphocytes % 4.6 % (24.0-44.0); Mean Cell Volume 83.9 fL (78-100); Mean Corpuscular Hemoglobin 28.3 pg (26-32); Mean Corpuscular Hgb Concent. 33.7 g/dL (32-36); Monocyte (Absolute #) 0.47 x10^3/uL (0.0-1.3); Monocytes % 4.6 % (0.0-12.0); Platelet Count 393 x10^3/uL (150-450); Red Blood Count 3.61 x10^6/uL (4.1-5.6); Red Cell Distribution Width 12.3 % (11.5-14.0); White Blood Count 10.2 x10^3/uL (4.0-10.5)
[2022-10-24 02:43] LABS: ALBUMIN 3.8 g/dL (3.5-5.0); ANION GAP 18.9 MEQ/L (5-15); BILIRUBIN,TOTAL 0.7 mg/dL (0.2-1.3); Calcium 9.5 mg/dL (8.4-10.2); Creatinine 1 3.03 mg/dL (0.66-1.25); EST GLOMERULAR FILTRATION RATE 24.9 ML/MIN; Potassium 4.9 mmol/L (3.5-5.1); Total Protein 7.1 g/dL (6.3-8.2)
[2022-10-24] MEDS: MORPHINE SULFATE 2 MG INJ IV PRN (02:44)
[2022-10-24] MEDS ORDERED: CARDENE IV ONE (03:02)
[2022-10-24] MEDS ORDERED: Sodium Chloride 0.9% 250 ML 250 ML IV ONE (03:03)
[2022-10-24] MEDS: CARDENE*** 25 MG in Sodium Chloride 0.9% 250 ML 240 ML IV PRN ×3 (03:15→21:06)
[2022-10-24] MEDS ORDERED: Phenergan 25 MG INJ*** 12.5 MG in Sodium Chloride 0.9% 100 ML IV PRN (03:39)
[2022-10-24] MEDS ORDERED: Phenergan 25 MG INJ ONE (03:41)
[2022-10-24] MEDS ORDERED: Sodium Chloride 0.9% 100 ML ONE (03:42)
[2022-10-24] MEDS: Zofran 4 MG/2 ML VIAL IV PRN (05:04)
[2022-10-24] MEDS: HUMALOG SQ PRN ×3 (05:04→16:36)
[2022-10-24] MEDS: Sodium Chloride 0.9% 1000 ML 1,000 ML IV SCH ×2 (05:05→15:25)
[2022-10-24] MEDS ORDERED: ZOFRAN ODT 4 MG PO PRN (07:36)
[2022-10-24] MEDS ORDERED: HUMALOG SQ SCH (08:00)
[2022-10-24] MEDS ORDERED: NON-FORMULARY ITEM (Insulin Lispro [Admelog Solostar] 100 UNIT/ML Insuln.Pen) SQ SCH (08:00)
--- NOTE | 2022-10-24 08:38 | XRAY ---
Indication: Abdomen pain, nausea, and vomiting. Multiple contiguous axial images obtained through the abdomen and pelvis without contrast. Comparison: July 23, 2022 Lung bases remain clear. Heart not enlarged. Stable small hiatal hernia. Noncontrasted stomach and bowel loops nonobstructed again with normal appendix. There is now moderate diffuse scattered colonic fecal debris. No free fluid/air. Remaining liver, gallbladder, pancreas, spleen, adrenal glands, kidneys, ureters, and bladder are unremarkable for noncontrast exam. Again minimal aortoiliac calcifications without AAA. Osseous structures intact again with bilateral L5 spondylolysis without listhesis. Impression: 1. New moderate diffuse fecal stasis. 2. Stable hiatal hernia and L5 spondylolysis without listhesis. 3. Remaining CT abdomen/pelvis without contrast exam is negative.
[2022-10-24] MEDS ORDERED: Zofran 4 MG/2 ML VIAL IV PRN (08:59)
[2022-10-24] MEDS ORDERED: XARELTO 10 MG TABLET PO SCH (10:00)
[2022-10-24] MEDS: NORVASC 5 MG PO SCH (10:19)
[2022-10-24] MEDS: Apresoline 25 MG TABLET PO SCH ×3 (10:19→21:07)
[2022-10-24] MEDS: ECOTRIN 81 MG PO SCH (10:19)
[2022-10-24] MEDS: Coreg 3.125 MG PO SCH ×2 (10:19→21:07)
--- NOTE | 2022-10-24 10:25 | PCM.HP.ADD ---
Addendum to History & Physical - History & Physical Addendum Addendum to History & Physical: This certifies that the History & Physical in the electronic chart reflects the current health status of the patient. If there are changes in the H&P these changes/exceptions are listed as follows.
[2022-10-24] MEDS: Lantus Insulin SQ SCH (10:52)
[2022-10-24] MEDS: Zofran 4 MG/2 ML VIAL IV SCH ×4 (11:31→23:11)
[2022-10-24] MEDS: Phenergan 25 MG INJ*** 12.5 MG in Sodium Chloride 0.9% 100 ML IV SCH ×2 (11:38→18:03)
[2022-10-24] MEDS ORDERED: Dextrose 5%-NS IV Solution 1000 ML 1,000 ML IV ONE (12:09)
[2022-10-24] MEDS: Dextrose 5%-NS IV Solution 1000 ML 1,000 ML IV SCH (12:09)
--- NOTE | 2022-10-24 12:11 | PCM.NOTE ---
Date and Time: 10/24/22 1205 Subjective Assessment: First troponin mildly elevated, but last 2 have been normal. He continues to vomit when he's awake. C/o abd pain and vomiting this morning. Would like water as it's easier to have something in his belly to vomit. BS have been elevated since prior to admission, but currently BS is 77. BP were elevated last night and he was put on cardene drip. Currently on 2.5mg/hr, with bp controlled while sleeping and higher when awake/vomiting. Tmax 100.4 this morning. - Review of Systems Constitutional: Fever Abdominal/Gastrointestinal: Vomiting Objective Exam General Appearance: moderate distress (nauseated during exam), alert Neurologic Exam: cooperative Skin Exam: normal color, warm, dry, No rash Eye Exam: eyes nml inspection Ears, Nose, Throat Exam: moist mucous membranes Neck Exam: normal inspection Respiratory Exam: normal breath sounds, lungs clear, No crackles/rales, No rhonchi, No wheezing Cardiovascular Exam: regular rate/rhythm, normal heart sounds, No murmur Gastrointestinal/Abdomen Exam: soft, tenderness (diffuse), No normal bowel sounds (hypoactive but present), No distention, No mass, No guarding, No rebound Extremity Exam: normal inspection, No pedal edema, No swelling Back Exam: normal inspection, No rash OBJECTIVE DATA Vital Signs: Vital Signs - 24 hr Temp Pulse Resp BP BP Pulse Ox 10/24/22 11:00 103 H 22 145/83 94 L 10/24/22 10:00 120 H 22 179/88 10/24/22 09:00 124 H 26 H 178/98 10/24/22 08:00 105 H 20 118/78 95 10/24/22 07:53 103 H 10/24/22 07:15 100.4 F 121 H 15 129/83 99 10/24/22 07:00 122 H 22 163/93 96 10/24/22 06:45 106 H 19 129/83 10/24/22 06:30 106 H 16 137/85 10/24/22 06:15 125 H 17 152/93 10/24/22 06:00 111 H 17 133/83 97 10/24/22 05:45 118 H 22 167/104 97 10/24/22 05:30 120 H 16 176/98 96 10/24/22 05:15 126 H 20 199/100 96 10/24/22 05:00 124 H 20 139/86 96 10/24/22 04:45 98.6 F 126 H 19 167/91 96 10/24/22 04:30 125 H 20 169/83 96 10/24/22 04:15 122 H 18 183/93 96 10/24/22 04:00 141 H 18 185/99 96 10/24/22 01:36 208/104 10/24/22 00:29 214/127 10/24/22 00:00 98.1 F 80 19 96 10/23/22 21:46 97.9 F 103 H 18 227/133 219/131 97 10/23/22 20:55 96 10/23/22 20:03 119 H 212/125 96 10/23/22 19:47 96 10/23/22 19:00 96 H 16 162/104 99 10/23/22 18:10 92 H 16 216/110 99 10/23/22 17:10 96 H 18 172/112 96 10/23/22 16:34 96 10/23/22 16:24 97.9 F 105 H 20 228/139 98 Pain Assessment - Last Documented Pain Intensity 0 Pain Scale Used 0-10 Pain Scale Intake and Output: Intake & Output 10/22/22 10/23/22 10/24/22 10/25/22 11:59 11:59 11:59 11:59 Intake Total 480 Output Total 2475 -1994 Weight 74.1 kg Lab Results: Lab Results-Last 24 Hours 10/23/22 10/23/22 10/23/22 Range/Units 16:30 16:30 16:30 WBC 9.9 (4.0-10.5) x10^3/uL RBC 3.86 L (4.1-5.6) x10^6/uL Hgb 11.0 L (12.5-18.0) g/dL Hct 32.3 L (42-50) % MCV 83.7 (78-100) fL MCH 28.5 (26-32) pg MCHC 34.1 (32-36) g/dL RDW 12.6 (11.5-14.0) % Plt Count 417 (150-450) x10^3/uL MPV 8.1 (7.5-11.0) fL Gran % 67.1 H (36.0-66.0) % Immature Gran % (Auto) 0.5 H (0.00-0.4) % Nucleat RBC Rel Count 0.0 (0.00-0.1) % Eos # (Auto) 0.91 H (0-0.5) x10^3/uL Immature Gran # (Auto) 0.05 H (0.00-0.03) x10^3u/L Absolute Lymphs (auto) 1.08 (1.0-4.6) x10^3/uL Absolute Monos (auto) 1.16 (0.0-1.3) x10^3/uL Absolute Nucleated RBC 0.00 (0.00-0.01) x10^3u/L Lymphocytes % 10.9 L (24.0-44.0) % Monocytes % 11.7 (0.0-12.0) % Eosinophils % 9.2 H (0.00-5.0) % Basophils % 0.6 (0.0-0.4) % Absolute Granulocytes 6.63 (1.4-6.9) x10^3/uL Basophils # 0.06 (0-0.4) x10^3/uL Sodium 131 L (137-145) mmol/L Potassium 4.8 (3.5-5.1) mmol/L Chloride 94 L (98-107) mmol/L Carbon Dioxide 26 (22-30) mmol/L Anion Gap 15.0 (5-15) MEQ/L BUN 39 H (9-20) mg/dL Creatinine 3.07 H (0.66-1.25) mg/dL Estimated GFR 24.5 ML/MIN Glucose 473 H (74-106) mg/dL POC Glucometer (74 to 106) mg/dL Calcium 9.7 (8.4-10.2) mg/dL Total Bilirubin 0.60 (0.2-1.3) mg/dL AST 26 (17-59) U/L ALT 20 (0-50) U/L Alkaline Phosphatase 219 H (38-126) U/L Troponin I 0.038 H* (0.000-0.034) ng/mL Serum Total Protein 7.9 (6.3-8.2) g/dL Albumin 4.1 (3.5-5.0) g/dL Urine Color (Yellow) Urine Appearance (Clear) Urine pH (4.6-8.0) Ur Specific [place] (1.005-1.030) Urine Protein (Negative) Urine Glucose (UA) (Negative) mg/dL Urine Ketones (Negative) Urine Blood (Negative) Urine Nitrite (Negative) Urine Bilirubin (Negative) Urine Urobilinogen (0.2) mg/dL Ur Leukocyte Esterase (Negative) U Hyaline Cast (Auto) (0-2) /LPF Urine Microscopic RBC (0-5) /HPF Urine Microscopic WBC (0-5) /HPF Ur Epithelial Cells (None Seen) /HPF Urine Bacteria (None Seen) /HPF Urine Culture Reflexed (NO) Influenza Type A Ag (NEGATIVE) Influenza Type B Ag (NEGATIVE) RSV (PCR) (Negative) SARS-CoV-2 (PCR) (NEGATIVE) 10/23/22 10/23/22 10/23/22 Range/Units 16:31 16:45 18:02 WBC (4.0-10.5) x10^3/uL RBC (4.1-5.6) x10^6/uL Hgb (12.5-18.0) g/dL Hct (42-50) % MCV (78-100) fL MCH (26-32) pg MCHC (32-36) g/dL RDW (11.5-14.0) % Plt Count (150-450) x10^3/uL MPV (7.5-11.0) fL Gran % (36.0-66.0) % Immature Gran % (Auto) (0.00-0.4) % Nucleat RBC Rel Count (0.00-0.1) % Eos # (Auto) (0-0.5) x10^3/uL Immature Gran # (Auto) (0.00-0.03) x10^3u/L Absolute Lymphs (auto) (1.0-4.6) x10^3/uL Absolute Monos (auto) (0.0-1.3) x10^3/uL Absolute Nucleated RBC (0.00-0.01) x10^3u/L Lymphocytes % (24.0-44.0) % Monocytes % (0.0-12.0) % Eosinophils % (0.00-5.0) % Basophils % (0.0-0.4) % Absolute Granulocytes (1.4-6.9) x10^3/uL Basophils # (0-0.4) x10^3/uL Sodium (137-145) mmol/L Potassium (3.5-5.1) mmol/L Chloride (98-107) mmol/L Carbon Dioxide (22-30) mmol/L Anion Gap (5-15) MEQ/L BUN (9-20) mg/dL Creatinine (0.66-1.25) mg/dL Estimated GFR ML/MIN Glucose (74-106) mg/dL POC Glucometer 377 H (74 to 106) mg/dL Calcium (8.4-10.2) mg/dL Total Bilirubin (0.2-1.3) mg/dL AST (17-59) U/L ALT (0-50) U/L Alkaline Phosphatase (38-126) U/L Troponin I (0.000-0.034) ng/mL Serum Total Protein (6.3-8.2) g/dL Albumin (3.5-5.0) g/dL Urine Color Yellow (Yellow) Urine Appearance Clear (Clear) Urine pH 6.5 (4.6-8.0) Ur Specific [place] 1.020 (1.005-1.030) Urine Protein 300 A (Negative) Urine Glucose (UA) >=1000 A (Negative) mg/dL Urine Ketones Trace A (Negative) Urine Blood Trace (Negative) Urine Nitrite Negative (Negative) Urine Bilirubin Negative (Negative) Urine Urobilinogen 0.2 (0.2) mg/dL Ur Leukocyte Esterase Negative (Negative) U Hyaline Cast (Auto) NONE SEEN (0-2) /LPF Urine Microscopic RBC 6-10 A (0-5) /HPF Urine Microscopic WBC 0-2 (0-5) /HPF Ur Epithelial Cells None Seen (None Seen) /HPF Urine Bacteria None Seen (None Seen) /HPF Urine Culture Reflexed YES (NO) Influenza Type A Ag NEGATIVE (NEGATIVE) Influenza Type B Ag NEGATIVE (NEGATIVE) RSV (PCR) NEGATIVE (Negative) SARS-CoV-2 (PCR) NEGATIVE (NEGATIVE) 10/23/22 10/23/22 10/24/22 Range/Units 20:05 22:57 02:25 WBC (4.0-10.5) x10^3/uL RBC (4.1-5.6) x10^6/uL Hgb (12.5-18.0) g/dL Hct (42-50) % MCV (78-100) fL MCH (26-32) pg MCHC (32-36) g/dL RDW (11.5-14.0) % Plt Count (150-450) x10^3/uL MPV (7.5-11.0) fL Gran % (36.0-66.0) % Immature Gran % (Auto) (0.00-0.4) % Nucleat RBC Rel Count (0.00-0.1) % Eos # (Auto) (0-0.5) x10^3/uL Immature Gran # (Auto) (0.00-0.03) x10^3u/L Absolute Lymphs (auto) (1.0-4.6) x10^3/uL Absolute Monos (auto) (0.0-1.3) x10^3/uL Absolute Nucleated RBC (0.00-0.01) x10^3u/L Lymphocytes % (24.0-44.0) % Monocytes % (0.0-12.0) % Eosinophils % (0.00-5.0) % Basophils % (0.0-0.4) % Absolute Granulocytes (1.4-6.9) x10^3/uL Basophils # (0-0.4) x10^3/uL Sodium (137-145) mmol/L Potassium (3.5-5.1) mmol/L Chloride (98-107) mmol/L Carbon Dioxide (22-30) mmol/L Anion Gap (5-15) MEQ/L BUN (9-20) mg/dL Creatinine (0.66-1.25) mg/dL Estimated GFR ML/MIN Glucose (74-106) mg/dL POC Glucometer 264 H (74 to 106) mg/dL Calcium (8.4-10.2) mg/dL Total Bilirubin (0.2-1.3) mg/dL AST (17-59) U/L ALT (0-50) U/L Alkaline Phosphatase (38-126) U/L Troponin I 0.034 0.034 (0.000-0.034) ng/mL Serum Total Protein (6.3-8.2) g/dL Albumin (3.5-5.0) g/dL Urine Color (Yellow) Urine Appearance (Clear) Urine pH (4.6-8.0) Ur Specific [place] (1.005-1.030) Urine Protein (Negative) Urine Glucose (UA) (Negative) mg/dL Urine Ketones (Negative) Urine Blood (Negative) Urine Nitrite (Negative) Urine Bilirubin (Negative) Urine Urobilinogen (0.2) mg/dL Ur Leukocyte Esterase (Negative) U Hyaline Cast (Auto) (0-2) /LPF Urine Microscopic RBC (0-5) /HPF Urine Microscopic WBC (0-5) /HPF Ur Epithelial Cells (None Seen) /HPF Urine Bacteria (None Seen) /HPF Urine Culture Reflexed (NO) Influenza Type A Ag (NEGATIVE) Influenza Type B Ag (NEGATIVE) RSV (PCR) (Negative) SARS-CoV-2 (PCR) (NEGATIVE) 10/24/22 10/24/22 10/24/22 Range/Units 02:25 02:25 04:55 WBC 10.2 (4.0-10.5) x10^3/uL RBC 3.61 L (4.1-5.6) x10^6/uL Hgb 10.2 L (12.5-18.0) g/dL Hct 30.3 L (42-50) % MCV 83.9 (78-100) fL MCH 28.3 (26-32) pg MCHC 33.7 (32-36) g/dL RDW 12.3 (11.5-14.0) % Plt Count 393 (150-450) x10^3/uL MPV 8.0 (7.5-11.0) fL Gran % 89.0 H (36.0-66.0) % Immature Gran % (Auto) 0.5 H (0.00-0.4) % Nucleat RBC Rel Count 0.0 (0.00-0.1) % Eos # (Auto) 0.09 (0-0.5) x10^3/uL Immature Gran # (Auto) 0.05 H (0.00-0.03) x10^3u/L Absolute Lymphs (auto) 0.47 L (1.0-4.6) x10^3/uL Absolute Monos (auto) 0.47 (0.0-1.3) x10^3/uL Absolute Nucleated RBC 0.00 (0.00-0.01) x10^3u/L Lymphocytes % 4.6 L (24.0-44.0) % Monocytes % 4.6 (0.0-12.0) % Eosinophils % 0.9 (0.00-5.0) % Basophils % 0.4 (0.0-0.4) % Absolute Granulocytes 9.04 H (1.4-6.9) x10^3/uL Basophils # 0.04 (0-0.4) x10^3/uL Sodium 131 L (137-145) mmol/L Potassium 4.9 (3.5-5.1) mmol/L Chloride 95 L (98-107) mmol/L Carbon Dioxide 22 (22-30) mmol/L Anion Gap 18.9 H (5-15) MEQ/L BUN 36 H (9-20) mg/dL Creatinine 3.03 H (0.66-1.25) mg/dL Estimated GFR 24.9 ML/MIN Glucose 433 H (74-106) mg/dL POC Glucometer 493 H (74 to 106) mg/dL Calcium 9.5 (8.4-10.2) mg/dL Total Bilirubin 0.70 (0.2-1.3) mg/dL AST 24 (17-59) U/L ALT 20 (0-50) U/L Alkaline Phosphatase 193 H (38-126) U/L Troponin I (0.000-0.034) ng/mL Serum Total Protein 7.1 (6.3-8.2) g/dL Albumin 3.8 (3.5-5.0) g/dL Urine Color (Yellow) Urine Appearance (Clear) Urine pH (4.6-8.0) Ur Specific [place] (1.005-1.030) Urine Protein (Negative) Urine Glucose (UA) (Negative) mg/dL Urine Ketones (Negative) Urine Blood (Negative) Urine Nitrite (Negative) Urine Bilirubin (Negative) Urine Urobilinogen (0.2) mg/dL Ur Leukocyte Esterase (Negative) U Hyaline Cast (Auto) (0-2) /LPF Urine Microscopic RBC (0-5) /HPF Urine Microscopic WBC (0-5) /HPF Ur Epithelial Cells (None Seen) /HPF Urine Bacteria (None Seen) /HPF Urine Culture Reflexed (NO) Influenza Type A Ag (NEGATIVE) Influenza Type B Ag (NEGATIVE) RSV (PCR) (Negative) SARS-CoV-2 (PCR) (NEGATIVE) 10/24/22 10/24/22 Range/Units 06:53 11:54 WBC (4.0-10.5) x10^3/uL RBC (4.1-5.6) x10^6/uL Hgb (12.5-18.0) g/dL Hct (42-50) % MCV (78-100) fL MCH (26-32) pg MCHC (32-36) g/dL RDW (11.5-14.0) % Plt Count (150-450) x10^3/uL MPV (7.5-11.0) fL Gran % (36.0-66.0) % Immature Gran % (Auto) (0.00-0.4) % Nucleat RBC Rel Count (0.00-0.1) % Eos # (Auto) (0-0.5) x10^3/uL Immature Gran # (Auto) (0.00-0.03) x10^3u/L Absolute Lymphs (auto) (1.0-4.6) x10^3/uL Absolute Monos (auto) (0.0-1.3) x10^3/uL Absolute Nucleated RBC (0.00-0.01) x10^3u/L Lymphocytes % (24.0-44.0) % Monocytes % (0.0-12.0) % Eosinophils % (0.00-5.0) % Basophils % (0.0-0.4) % Absolute Granulocytes (1.4-6.9) x10^3/uL Basophils # (0-0.4) x10^3/uL Sodium (137-145) mmol/L Potassium (3.5-5.1) mmol/L Chloride (98-107) mmol/L Carbon Dioxide (22-30) mmol/L Anion Gap (5-15) MEQ/L BUN (9-20) mg/dL Creatinine (0.66-1.25) mg/dL Estimated GFR ML/MIN Glucose (74-106) mg/dL POC Glucometer 354 H 77 (74 to 106) mg/dL Calcium (8.4-10.2) mg/dL Total Bilirubin (0.2-1.3) mg/dL AST (17-59) U/L ALT (0-50) U/L Alkaline Phosphatase (38-126) U/L Troponin I (0.000-0.034) ng/mL Serum Total Protein (6.3-8.2) g/dL Albumin (3.5-5.0) g/dL Urine Color (Yellow) Urine Appearance (Clear) Urine pH (4.6-8.0) Ur Specific [place] (1.005-1.030) Urine Protein (Negative) Urine Glucose (UA) (Negative) mg/dL Urine Ketones (Negative) Urine Blood (Negative) Urine Nitrite (Negative) Urine Bilirubin (Negative) Urine Urobilinogen (0.2) mg/dL Ur Leukocyte Esterase (Negative) U Hyaline Cast (Auto) (0-2) /LPF Urine Microscopic RBC (0-5) /HPF Urine Microscopic WBC (0-5) /HPF Ur Epithelial Cells (None Seen) /HPF Urine Bacteria (None Seen) /HPF Urine Culture Reflexed (NO) Influenza Type A Ag (NEGATIVE) Influenza Type B Ag (NEGATIVE) RSV (PCR) (Negative) SARS-CoV-2 (PCR) (NEGATIVE) Radiology Exams: Radiology Procedures Category Date Time Status ABDOMEN AND PELVIS W/0 CONTRAS [CT] Stat Exams 10/23/22 17:11 Completed Multi-Disciplinary Progress Notes: Multi-Disciplinary Progress Notes 10/24/22 10:40 Case Management Note by Nona Carranza WENT TO TALK WITH PATIENT ABOUT CASE MANAGEMENT/DC PLANS- PATIENT NOT FEELING WELL AND VOMITING- WILL TALK TO PATIENT TOMORROW Initialized on 10/24/22 10:40 - END OF NOTE Assessment/Plan (1) Hypertensive emergency Current Visit: Yes Status: Acute Code(s): I16.1 - HYPERTENSIVE EMERGENCY (2) Hyperglycemia Current Visit: Yes Status: Chronic Code(s): R73.9 - HYPERGLYCEMIA, UNSPECIFIED (3) Vomiting Current Visit: No Status: Acute Qualifiers: Vomiting type: unspecified Nausea presence: with nausea Qualified Code(s): R11.2 - Nausea with vomiting, unspecified Assessment & Plan: Hx of cyclic vomiting and gastroparesis. Made zofran and phenergan (piggyback) scheduled for today. May change phenergan to reglan if not improving. Code(s): R11.10 - VOMITING, UNSPECIFIED (4) Hypertension Current Visit: No Status: Chronic Onset Date: ~05/30/18 Qualifiers: Hypertension type: renovascular hypertension Qualified Code(s): I15.0 - Renovascular hypertension Assessment & Plan: worse with vomiting. Currently on IV antihypertensive. He is noncompliant with meds at home. restart home meds (prescribed meds) once he is able to take po. Code(s): I10 - ESSENTIAL (PRIMARY) HYPERTENSION (5) Abdominal pain Current Visit: Yes Status: Acute Qualifiers: Abdominal location: generalized Qualified Code(s): R10.84 - Generalized abdominal pain Assessment & Plan: with fever and vomiting - will start zosyn. procalcitonin is pending. Code(s): R10.9 - UNSPECIFIED ABDOMINAL PAIN (6) Elevated troponin Current Visit: Yes Status: Resolved Code(s): R77.8 - OTHER SPECIFIED ABNORMALITIES OF PLASMA PROTEINS (7) Chronic renal insufficiency Current Visit: Yes Status: Chronic Qualifiers: Chronic kidney disease stage: stage 4 (severe) Qualified Code(s): N18.4 - Chronic kidney disease, stage 4 (severe) Code(s): N18.9 - CHRONIC KIDNEY DISEASE, UNSPECIFIED (8) Diabetes mellitus type I Current Visit: No Status: Chronic Onset Date: ~05/30/18 Qualifiers: Diabetes mellitus complication status: with kidney complications Diabetes mellitus complication detail: with chronic kidney disease Chronic kidney disease stage: stage 4 (severe) Qualified Code(s): E10.22 - Type 1 diabetes mellitus with diabetic chronic kidney disease; N18.4 - Chronic kidney disease, stage 4 (severe) Assessment & Plan: His anion gap is increased since admission, so will recheck lab in a few hours, have changed his fluids.
[2022-10-24] MEDS ORDERED: FAMOTIDINE 20 MG PIGGYBACK 20 MG/50 ML ML IV SCH (12:30)
[2022-10-24] MEDS ORDERED: Pepcid 20 MG PO SCH (13:00)
[2022-10-24] MEDS: Piperacillin/Tazobactam 2.25 GM 2.25 GM in Sodium Chloride 100ML MINI-BAG PLUS 100 ML IV SCH ×2 (13:22→18:03)
[2022-10-24] MEDS: ENOXAPARIN SODIUM SQ SCH (13:22)
[2022-10-24] MEDS: Pepcid 20 MG VIAL IV SCH ×2 (13:27→21:07)
[2022-10-24 14:44] LABS: Calcium 8.5 mg/dL (8.4-10.2); Creatinine 1 3.53 mg/dL (0.66-1.25); EST GLOMERULAR FILTRATION RATE 20.8 ML/MIN; Potassium 4.1 mmol/L (3.5-5.1)
[2022-10-24] MEDS ORDERED: PIPERACILLIN/TAZOBACTAM 3.375 GM in Sodium Chloride 100ML MINI-BAG PLUS 100 ML IV SCH (18:00)
[2022-10-25] MEDS: Phenergan 25 MG INJ*** 12.5 MG in Sodium Chloride 0.9% 100 ML IV SCH ×5 (02:08→23:35)
[2022-10-25] MEDS: Piperacillin/Tazobactam 2.25 GM 2.25 GM in Sodium Chloride 100ML MINI-BAG PLUS 100 ML IV SCH ×5 (02:08→23:32)
[2022-10-25] MEDS: Dextrose 5%-NS IV Solution 1000 ML 1,000 ML IV SCH (02:56)
[2022-10-25] MEDS: Sodium Chloride 0.9% 1000 ML 1,000 ML IV SCH ×2 (02:57→16:27)
[2022-10-25] MEDS: Zofran 4 MG/2 ML VIAL IV SCH ×7 (03:25→23:40)
[2022-10-25 04:50] LABS: Absolute Neutrophil Ct (ANC) 7.03 x10^3/uL (1.4-6.9); BASOPHIL % 0.6 % (0.0-0.4); Basophil (Absolute #) 0.06 x10^3/uL (0-0.4); Eosinophil % 5.2 % (0.00-5.0); Eosinophil (Absolute #) 0.49 x10^3/uL (0-0.5); Hematocrit 26.5 % (42-50); Hemoglobin 8.7 g/dL (12.5-18.0); IMMATURE GRAN # 0.03 x10^3u/L (0.00-0.03); IMMATURE GRAN % 0.3 % (0.00-0.4); Lymphocyte (Absolute #) 0.81 x10^3/uL (1.0-4.6); Lymphocytes % 8.6 % (24.0-44.0); Mean Cell Volume 86.9 fL (78-100); Mean Corpuscular Hemoglobin 28.5 pg (26-32); Mean Corpuscular Hgb Concent. 32.8 g/dL (32-36); Monocyte (Absolute #) 0.96 x10^3/uL (0.0-1.3); Monocytes % 10.2 % (0.0-12.0); Neutrophil % 75.1 % (36.0-66.0); Platelet Count 327 x10^3/uL (150-450); Red Blood Count 3.05 x10^6/uL (4.1-5.6); Red Cell Distribution Width 13.1 % (11.5-14.0); White Blood Count 9.4 x10^3/uL (4.0-10.5)
[2022-10-25 06:48] LABS: ANION GAP 9.5 MEQ/L (5-15); BILIRUBIN,TOTAL 0.4 mg/dL (0.2-1.3); Calcium 8.1 mg/dL (8.4-10.2); Creatinine 1 3.44 mg/dL (0.66-1.25); EST GLOMERULAR FILTRATION RATE 21.5 ML/MIN; Total Protein 6.2 g/dL (6.3-8.2)
[2022-10-25] MEDS: Lantus Insulin SQ SCH (08:23)
[2022-10-25] MEDS: NORVASC 5 MG PO SCH (08:24)
[2022-10-25] MEDS: Coreg 3.125 MG PO SCH ×2 (08:24→21:18)
[2022-10-25] MEDS: Apresoline 25 MG TABLET PO SCH ×3 (08:24→21:18)
[2022-10-25] MEDS: ECOTRIN 81 MG PO SCH (08:24)
[2022-10-25] MEDS: ENOXAPARIN SODIUM SQ SCH (08:25)
[2022-10-25] MEDS: Pepcid 20 MG VIAL IV SCH ×2 (08:25→21:17)
--- NOTE | 2022-10-25 08:30 | PCM.NOTE ---
Date and Time: 10/25/22824 Subjective Assessment: He is feeling much better with respect to abd pain/N/V (no longer nauseated/vomiting and says abd is sore but not painful). He was taken off the cardene drip but bp now 176/101. He would like to try some liquids before trying to swallow his home BP pills. - Review of Systems Constitutional: Fatigue, No Fever Abdominal/Gastrointestinal: No Nausea, No Vomiting Objective Exam General Appearance: no apparent distress, alert, other (has dark circles under eyes) Neurologic Exam: oriented x 3, cooperative Skin Exam: warm, dry, No rash Neck Exam: normal inspection Respiratory Exam: normal breath sounds, lungs clear, No crackles/rales, No rhonchi, No wheezing Cardiovascular Exam: regular rate/rhythm, normal heart sounds, No murmur Gastrointestinal/Abdomen Exam: soft, normal bowel sounds, tenderness (generalized mild), No distention, No mass, No guarding, No rebound Extremity Exam: normal inspection, No pedal edema, No swelling Back Exam: normal inspection, No rash OBJECTIVE DATA Vital Signs: Vital Signs - 24 hr Temp Pulse Resp BP Pulse Ox 10/25/22 08:00 89 160/98 10/25/22 07:24 98.3 F 80 16 179/107 98 10/25/22 05:00 98 F 88 16 113/99 94 L 10/25/22 04:00 98 F 73 16 129/81 95 10/25/22 03:00 78 16 140/81 95 10/25/22 02:00 81 16 133/76 95 10/25/22 00:00 98 F 95 H 16 157/81 96 10/24/22 23:00 95 H 16 136/60 96 10/24/22 22:00 98 F 94 H 16 161/87 96 10/24/22 21:00 108 H 16 128/82 95 10/24/22 20:00 97.9 F 101 H 18 132/63 95 10/24/22 19:00 97.9 F 101 H 18 132/63 95 10/24/22 18:00 89 16 143/68 94 L 10/24/22 17:00 91 H 15 164/96 96 10/24/22 16:00 98.9 F 93 H 16 148/85 95 10/24/22 15:00 103 H 20 166/90 10/24/22 14:00 99 H 18 149/84 93 L 10/24/22 13:00 99 H 18 145/82 93 L 10/24/22 12:00 98.3 F 103 H 18 139/81 94 L 10/24/22 11:00 103 H 22 145/83 94 L 10/24/22 10:00 120 H 22 179/88 10/24/22 09:00 124 H 26 H 178/98 Pain Assessment - Last Documented Pain Intensity 0 Pain Scale Used 0-10 Pain Scale Intake and Output: Intake & Output 10/22/22 10/23/22 10/24/22 10/25/22 11:59 11:59 11:59 11:59 Intake Total 480 6915 Output Total 9069 2710 4364 Weight 74.1 kg 77.2 kg Lab Results: Lab Results-Last 24 Hours 10/24/22 10/24/22 10/24/22 Range/Units 00:30 11:54 14:20 WBC (4.0-10.5) x10^3/uL RBC (4.1-5.6) x10^6/uL Hgb (12.5-18.0) g/dL Hct (42-50) % MCV (78-100) fL MCH (26-32) pg MCHC (32-36) g/dL RDW (11.5-14.0) % Plt Count (150-450) x10^3/uL MPV (7.5-11.0) fL Gran % (36.0-66.0) % Immature Gran % (Auto) (0.00-0.4) % Nucleat RBC Rel Count (0.00-0.1) % Eos # (Auto) (0-0.5) x10^3/uL Immature Gran # (Auto) (0.00-0.03) x10^3u/L Absolute Lymphs (auto) (1.0-4.6) x10^3/uL Absolute Monos (auto) (0.0-1.3) x10^3/uL Absolute Nucleated RBC (0.00-0.01) x10^3u/L Lymphocytes % (24.0-44.0) % Monocytes % (0.0-12.0) % Eosinophils % (0.00-5.0) % Basophils % (0.0-0.4) % Absolute Granulocytes (1.4-6.9) x10^3/uL Basophils # (0-0.4) x10^3/uL Sodium 133 L (137-145) mmol/L Potassium 4.1 (3.5-5.1) mmol/L Chloride 100 (98-107) mmol/L Carbon Dioxide 26 (22-30) mmol/L Anion Gap 11.0 (5-15) MEQ/L BUN 41 H (9-20) mg/dL Creatinine 3.53 H (0.66-1.25) mg/dL Estimated GFR 20.8 ML/MIN Glucose 164 H (74-106) mg/dL POC Glucometer 77 (74 to 106) mg/dL Hemoglobin A1c (4.5-6.0) % Calcium 8.5 (8.4-10.2) mg/dL Total Bilirubin (0.2-1.3) mg/dL AST (17-59) U/L ALT (0-50) U/L Alkaline Phosphatase (38-126) U/L Serum Total Protein (6.3-8.2) g/dL Albumin (3.5-5.0) g/dL Procalcitonin 0.109 H (0.030-0.080) ng/mL 10/24/22 10/24/22 10/24/22 Range/Units 16:25 16:45 20:45 WBC (4.0-10.5) x10^3/uL RBC (4.1-5.6) x10^6/uL Hgb (12.5-18.0) g/dL Hct (42-50) % MCV (78-100) fL MCH (26-32) pg MCHC (32-36) g/dL RDW (11.5-14.0) % Plt Count (150-450) x10^3/uL MPV (7.5-11.0) fL Gran % (36.0-66.0) % Immature Gran % (Auto) (0.00-0.4) % Nucleat RBC Rel Count (0.00-0.1) % Eos # (Auto) (0-0.5) x10^3/uL Immature Gran # (Auto) (0.00-0.03) x10^3u/L Absolute Lymphs (auto) (1.0-4.6) x10^3/uL Absolute Monos (auto) (0.0-1.3) x10^3/uL Absolute Nucleated RBC (0.00-0.01) x10^3u/L Lymphocytes % (24.0-44.0) % Monocytes % (0.0-12.0) % Eosinophils % (0.00-5.0) % Basophils % (0.0-0.4) % Absolute Granulocytes (1.4-6.9) x10^3/uL Basophils # (0-0.4) x10^3/uL Sodium (137-145) mmol/L Potassium (3.5-5.1) mmol/L Chloride (98-107) mmol/L Carbon Dioxide (22-30) mmol/L Anion Gap (5-15) MEQ/L BUN (9-20) mg/dL Creatinine (0.66-1.25) mg/dL Estimated GFR ML/MIN Glucose (74-106) mg/dL POC Glucometer 159 H 94 (74 to 106) mg/dL Hemoglobin A1c 9.63 H (4.5-6.0) % Calcium (8.4-10.2) mg/dL Total Bilirubin (0.2-1.3) mg/dL AST (17-59) U/L ALT (0-50) U/L Alkaline Phosphatase (38-126) U/L Serum Total Protein (6.3-8.2) g/dL Albumin (3.5-5.0) g/dL Procalcitonin (0.030-0.080) ng/mL 10/25/22 10/25/22 10/25/22 Range/Units 04:51 04:51 07:12 WBC 9.4 (4.0-10.5) x10^3/uL RBC 3.05 L (4.1-5.6) x10^6/uL Hgb 8.7 L (12.5-18.0) g/dL Hct 26.5 L (42-50) % MCV 86.9 (78-100) fL MCH 28.5 (26-32) pg MCHC 32.8 (32-36) g/dL RDW 13.1 (11.5-14.0) % Plt Count 327 (150-450) x10^3/uL MPV 8.0 (7.5-11.0) fL Gran % 75.1 H (36.0-66.0) % Immature Gran % (Auto) 0.3 (0.00-0.4) % Nucleat RBC Rel Count 0.0 (0.00-0.1) % Eos # (Auto) 0.49 (0-0.5) x10^3/uL Immature Gran # (Auto) 0.03 (0.00-0.03) x10^3u/L Absolute Lymphs (auto) 0.81 L (1.0-4.6) x10^3/uL Absolute Monos (auto) 0.96 (0.0-1.3) x10^3/uL Absolute Nucleated RBC 0.00 (0.00-0.01) x10^3u/L Lymphocytes % 8.6 L (24.0-44.0) % Monocytes % 10.2 (0.0-12.0) % Eosinophils % 5.2 H (0.00-5.0) % Basophils % 0.6 (0.0-0.4) % Absolute Granulocytes 7.03 H (1.4-6.9) x10^3/uL Basophils # 0.06 (0-0.4) x10^3/uL Sodium 136 L (137-145) mmol/L Potassium 4.0 (3.5-5.1) mmol/L Chloride 103 (98-107) mmol/L Carbon Dioxide 27 (22-30) mmol/L Anion Gap 9.5 (5-15) MEQ/L BUN 33 H (9-20) mg/dL Creatinine 3.44 H (0.66-1.25) mg/dL Estimated GFR 21.5 ML/MIN Glucose 128 H (74-106) mg/dL POC Glucometer 126 H (74 to 106) mg/dL Hemoglobin A1c (4.5-6.0) % Calcium 8.1 L (8.4-10.2) mg/dL Total Bilirubin 0.40 (0.2-1.3) mg/dL AST 20 (17-59) U/L ALT 15 (0-50) U/L Alkaline Phosphatase 119 (38-126) U/L Serum Total Protein 6.2 L (6.3-8.2) g/dL Albumin 3.0 L (3.5-5.0) g/dL Procalcitonin (0.030-0.080) ng/mL Radiology Exams: Radiology Procedures Category Date Time Status ABDOMEN AND PELVIS W/0 CONTRAS [CT] Stat Exams 10/23/22 17:11 Completed Multi-Disciplinary Progress Notes: Multi-Disciplinary Progress Notes 10/24/22 10:40 Case Management Note by Nona Carranza WENT TO TALK WITH PATIENT ABOUT CASE MANAGEMENT/DC PLANS- PATIENT NOT FEELING WELL AND VOMITING- WILL TALK TO PATIENT TOMORROW Initialized on 10/24/22 10:40 - END OF NOTE Assessment/Plan (1) Hypertensive emergency Current Visit: Yes Status: Acute Assessment & Plan: Will need to resume home BP meds; if cannot, may need to resume cardene drip temporarily. Code(s): I16.1 - HYPERTENSIVE EMERGENCY (2) Vomiting Current Visit: No Status: Resolved Qualifiers: Vomiting type: unspecified Nausea presence: with nausea Qualified Code(s): R11.2 - Nausea with vomiting, unspecified Assessment & Plan: On zofran for question of intra-abd infection (had left shift and elevated procalcitonin yesterday, with temp to 100.4). He is feeling better overall and will start taking po today. Code(s): R11.10 - VOMITING, UNSPECIFIED (3) Hyperglycemia Current Visit: Yes Status: Resolved Code(s): R73.9 - HYPERGLYCEMIA, UNSPECIFIED (4) Hypertension Current Visit: No Status: Chronic Onset Date: ~05/30/18 Qualifiers: Hypertension type: renovascular hypertension Qualified Code(s): I15.0 - Renovascular hypertension Code(s): I10 - ESSENTIAL (PRIMARY) HYPERTENSION (5) Abdominal pain Current Visit: Yes Status: Acute Qualifiers: Abdominal location: generalized Qualified Code(s): R10.84 - Generalized abdominal pain Code(s): R10.9 - UNSPECIFIED ABDOMINAL PAIN (6) Elevated troponin Current Visit: Yes Status: Resolved Code(s): R77.8 - OTHER SPECIFIED ABNORMALITIES OF PLASMA PROTEINS (7) Chronic renal insufficiency Current Visit: Yes Status: Chronic Qualifiers: Chronic kidney disease stage: stage 4 (severe) Qualified Code(s): N18.4 - Chronic kidney disease, stage 4 (severe) Assessment & Plan: eGFR 21.5 today Code(s): N18.9 - CHRONIC KIDNEY DISEASE, UNSPECIFIED (8) Diabetes mellitus type I Current Visit: No Status: Chronic Onset Date: ~05/30/18 Qualifiers: Diabetes mellitus complication status: with kidney complications Diabetes mellitus complication detail: with chronic kidney disease Chronic kidney disease stage: stage 4 (severe) Qualified Code(s): E10.22 - Type 1 diabetes mellitus with diabetic chronic kidney disease; N18.4 - Chronic kidney disease, stage 4 (severe) Assessment & Plan: poorly controlled, pt is admittedly noncompliant although at least he is taking his mealtime insulin at home now. A1c is >9.
[2022-10-25] MEDS ORDERED: Catapres TTS-2 PATCH TOP SCH (10:00)
[2022-10-25] MEDS: HUMALOG SQ PRN (12:08)
[2022-10-26] MEDS: Zofran 4 MG/2 ML VIAL IV SCH ×2 (03:35→07:45)
[2022-10-26 04:51] LABS: Absolute Neutrophil Ct (ANC) 3.56 x10^3/uL (1.4-6.9); BASOPHIL % 0.7 % (0.0-0.4); Basophil (Absolute #) 0.04 x10^3/uL (0-0.4); Eosinophil % 11.6 % (0.00-5.0); Eosinophil (Absolute #) 0.66 x10^3/uL (0-0.5); Hematocrit 27.2 % (42-50); Hemoglobin 8.8 g/dL (12.5-18.0); IMMATURE GRAN # 0.01 x10^3u/L (0.00-0.03); IMMATURE GRAN % 0.2 % (0.00-0.4); Lymphocytes % 12.3 % (24.0-44.0); Mean Cell Volume 86.9 fL (78-100); Mean Corpuscular Hemoglobin 28.1 pg (26-32); Mean Corpuscular Hgb Concent. 32.4 g/dL (32-36); Mean Platelet Volume 7.9 fL (7.5-11.0); Monocytes % 12.3 % (0.0-12.0); Neutrophil % 62.9 % (36.0-66.0); Platelet Count 284 x10^3/uL (150-450); Red Blood Count 3.13 x10^6/uL (4.1-5.6); Red Cell Distribution Width 12.9 % (11.5-14.0); White Blood Count 5.7 x10^3/uL (4.0-10.5)
[2022-10-26] MEDS: Phenergan 25 MG INJ*** 12.5 MG in Sodium Chloride 0.9% 100 ML IV SCH (05:10)
[2022-10-26] MEDS: Sodium Chloride 0.9% 1000 ML 1,000 ML IV SCH ×3 (05:10→20:37)
[2022-10-26] MEDS: Piperacillin/Tazobactam 2.25 GM 2.25 GM in Sodium Chloride 100ML MINI-BAG PLUS 100 ML IV SCH ×4 (05:10→23:43)
[2022-10-26 05:21] LABS: ALBUMIN 2.9 g/dL (3.5-5.0); ANION GAP 8.5 MEQ/L (5-15); BILIRUBIN,TOTAL 0.3 mg/dL (0.2-1.3); Creatinine 1 3.38 mg/dL (0.66-1.25); EST GLOMERULAR FILTRATION RATE 21.9 ML/MIN; Potassium 4.6 mmol/L (3.5-5.1)
[2022-10-26] MEDS: Apresoline 25 MG TABLET PO SCH ×3 (07:46→21:36)
[2022-10-26] MEDS: Coreg 3.125 MG PO SCH ×2 (07:46→21:36)
[2022-10-26] MEDS: NORVASC 5 MG PO SCH (07:46)
[2022-10-26] MEDS: ENOXAPARIN SODIUM SQ SCH (09:24)
[2022-10-26] MEDS: ECOTRIN 81 MG PO SCH (09:24)
[2022-10-26] MEDS: Lantus Insulin SQ SCH (09:24)
[2022-10-26] MEDS: Pepcid 20 MG VIAL IV SCH ×2 (09:24→21:36)
--- NOTE | 2022-10-26 11:44 | PCM.NOTE ---
Date and Time: 10/26/22 1139 Subjective Assessment: Pt's BP were good all night but this morning 171/96 and 196/102. Pt notes the high ones are sometimes taken on his forearm. He is not nauseated but has continued getting antiemetics scheduled. franc po. - Review of Systems Constitutional: No Fever Abdominal/Gastrointestinal: No Vomiting Objective Exam General Appearance: no apparent distress, alert Neurologic Exam: oriented x 3, cooperative, normal mood/affect Skin Exam: normal color, warm, dry, No rash Eye Exam: eyes nml inspection Ears, Nose, Throat Exam: moist mucous membranes Neck Exam: normal inspection Respiratory Exam: normal breath sounds, lungs clear, No crackles/rales, No rhonchi, No wheezing Cardiovascular Exam: regular rate/rhythm, normal heart sounds, No murmur Gastrointestinal/Abdomen Exam: soft, normal bowel sounds, tenderness (mildly, diffuse), No distention, No mass, No guarding, No rebound Extremity Exam: normal inspection, No pedal edema, No swelling Back Exam: normal inspection, No rash OBJECTIVE DATA Vital Signs: Vital Signs - 24 hr Temp Pulse Resp BP Pulse Ox 10/26/22 07:31 98.1 F 73 16 191/94 98 10/26/22 03:59 97.9 F 70 18 171/96 98 10/25/22 23:27 97.8 F 73 16 134/77 97 10/25/22 19:59 98.0 F 83 18 120/70 97 10/25/22 16:00 97.3 F 71 16 131/81 98 10/25/22 12:28 137/89 10/25/22 12:07 72 137/89 10/25/22 12:00 82 10/25/22 11:53 142/92 Pain Assessment - Last Documented Pain Intensity 0 Pain Scale Used 0-10 Pain Scale Intake and Output: Intake & Output 10/23/22 10/24/22 10/25/22 10/26/22 11:59 11:59 11:59 11:59 Intake Total 944 2266 3702 Output Total 9772 6200 3100 Balance -1994 4804 2021 Weight 74.1 kg 77.2 kg 77.2 kg Lab Results: Lab Results-Last 24 Hours 10/25/22 10/25/22 10/25/22 Range/Units 11:37 16:23 20:47 WBC (4.0-10.5) x10^3/uL RBC (4.1-5.6) x10^6/uL Hgb (12.5-18.0) g/dL Hct (42-50) % MCV (78-100) fL MCH (26-32) pg MCHC (32-36) g/dL RDW (11.5-14.0) % Plt Count (150-450) x10^3/uL MPV (7.5-11.0) fL Gran % (36.0-66.0) % Immature Gran % (Auto) (0.00-0.4) % Nucleat RBC Rel Count (0.00-0.1) % Eos # (Auto) (0-0.5) x10^3/uL Immature Gran # (Auto) (0.00-0.03) x10^3u/L Absolute Lymphs (auto) (1.0-4.6) x10^3/uL Absolute Monos (auto) (0.0-1.3) x10^3/uL Absolute Nucleated RBC (0.00-0.01) x10^3u/L Lymphocytes % (24.0-44.0) % Monocytes % (0.0-12.0) % Eosinophils % (0.00-5.0) % Basophils % (0.0-0.4) % Absolute Granulocytes (1.4-6.9) x10^3/uL Basophils # (0-0.4) x10^3/uL Sodium (137-145) mmol/L Potassium (3.5-5.1) mmol/L Chloride (98-107) mmol/L Carbon Dioxide (22-30) mmol/L Anion Gap (5-15) MEQ/L BUN (9-20) mg/dL Creatinine (0.66-1.25) mg/dL Estimated GFR ML/MIN Glucose (74-106) mg/dL POC Glucometer 213 H 107 H 190 H (74 to 106) mg/dL Calcium (8.4-10.2) mg/dL Total Bilirubin (0.2-1.3) mg/dL AST (17-59) U/L ALT (0-50) U/L Alkaline Phosphatase (38-126) U/L Serum Total Protein (6.3-8.2) g/dL Albumin (3.5-5.0) g/dL 10/26/22 10/26/22 10/26/22 Range/Units 04:51 04:51 07:37 WBC 5.7 (4.0-10.5) x10^3/uL RBC 3.13 L (4.1-5.6) x10^6/uL Hgb 8.8 L (12.5-18.0) g/dL Hct 27.2 L (42-50) % MCV 86.9 (78-100) fL MCH 28.1 (26-32) pg MCHC 32.4 (32-36) g/dL RDW 12.9 (11.5-14.0) % Plt Count 284 (150-450) x10^3/uL MPV 7.9 (7.5-11.0) fL Gran % 62.9 (36.0-66.0) % Immature Gran % (Auto) 0.2 (0.00-0.4) % Nucleat RBC Rel Count 0.0 (0.00-0.1) % Eos # (Auto) 0.66 H (0-0.5) x10^3/uL Immature Gran # (Auto) 0.01 (0.00-0.03) x10^3u/L Absolute Lymphs (auto) 0.70 L (1.0-4.6) x10^3/uL Absolute Monos (auto) 0.70 (0.0-1.3) x10^3/uL Absolute Nucleated RBC 0.00 (0.00-0.01) x10^3u/L Lymphocytes % 12.3 L (24.0-44.0) % Monocytes % 12.3 H (0.0-12.0) % Eosinophils % 11.6 H (0.00-5.0) % Basophils % 0.7 (0.0-0.4) % Absolute Granulocytes 3.56 (1.4-6.9) x10^3/uL Basophils # 0.04 (0-0.4) x10^3/uL Sodium 134 L (137-145) mmol/L Potassium 4.6 (3.5-5.1) mmol/L Chloride 104 (98-107) mmol/L Carbon Dioxide 26 (22-30) mmol/L Anion Gap 8.5 (5-15) MEQ/L BUN 26 H (9-20) mg/dL Creatinine 3.38 H (0.66-1.25) mg/dL Estimated GFR 21.9 ML/MIN Glucose 117 H (74-106) mg/dL POC Glucometer 77 (74 to 106) mg/dL Calcium 8.0 L (8.4-10.2) mg/dL Total Bilirubin 0.30 (0.2-1.3) mg/dL AST 19 (17-59) U/L ALT 14 (0-50) U/L Alkaline Phosphatase 117 (38-126) U/L Serum Total Protein 6.0 L (6.3-8.2) g/dL Albumin 2.9 L (3.5-5.0) g/dL Multi-Disciplinary Progress Notes: Multi-Disciplinary Progress Notes 10/26/22 09:33 Case Management Note by Nona Carranza CALLED IN TO [facility]ODRIG[facility] Initialized on 10/26/22 09:33 - END OF NOTE Assessment/Plan (1) Hypertensive emergency Current Visit: Yes Status: Acute Assessment & Plan: Continues to have some elevated bp measured, but will try measuring on the upper arm instead of forearm. He also just restarted most of his home meds here in the hospital yesterday. Code(s): I16.1 - HYPERTENSIVE EMERGENCY (2) Vomiting Current Visit: No Status: Resolved Qualifiers: Vomiting type: unspecified Nausea presence: with nausea Qualified Code(s): R11.2 - Nausea with vomiting, unspecified Assessment & Plan: If continues able to franc po without anti-emetics, and his bp is controlled reasonably well, can d/c to home tomorrow. Code(s): R11.10 - VOMITING, UNSPECIFIED (3) Hyperglycemia Current Visit: Yes Status: Chronic Assessment & Plan: DM not well controlled. Will need to restart long acting insulin at home. Code(s): R73.9 - HYPERGLYCEMIA, UNSPECIFIED (4) Hypertension Current Visit: No Status: Chronic Onset Date: ~05/30/18 Qualifiers: Hypertension type: renovascular hypertension Qualified Code(s): I15.0 - Renovascular hypertension Code(s): I10 - ESSENTIAL (PRIMARY) HYPERTENSION (5) Abdominal pain Current Visit: Yes Status: Resolved Qualifiers: Abdominal location: generalized Qualified Code(s): R10.84 - Generalized abdominal pain Code(s): R10.9 - UNSPECIFIED ABDOMINAL PAIN (6) Chronic renal insufficiency Current Visit: Yes Status: Chronic Qualifiers: Chronic kidney disease stage: stage 4 (severe) Qualified Code(s): N18.4 - Chronic kidney disease, stage 4 (severe) Code(s): N18.9 - CHRONIC KIDNEY DISEASE, UNSPECIFIED (7) Diabetes mellitus type I Current Visit: No Status: Chronic Onset Date: ~05/30/18 Qualifiers: Diabetes mellitus complication status: with kidney complications Diabetes mellitus complication detail: with chronic kidney disease Chronic kidney disease stage: stage 4 (severe) Qualified Code(s): E10.22 - Type 1 diabetes mellitus with diabetic chronic kidney disease; N18.4 - Chronic kidney disease, stage 4 (severe)
[2022-10-26] MEDS: HUMALOG SQ PRN ×3 (12:45→21:35)
[2022-10-27] MEDS: Piperacillin/Tazobactam 2.25 GM 2.25 GM in Sodium Chloride 100ML MINI-BAG PLUS 100 ML IV SCH ×2 (05:12→12:54)
[2022-10-27 05:48] LABS: Absolute Neutrophil Ct (ANC) 4.97 x10^3/uL (1.4-6.9); BASOPHIL % 0.7 % (0.0-0.4); Basophil (Absolute #) 0.05 x10^3/uL (0-0.4); Eosinophil % 9.8 % (0.00-5.0); Eosinophil (Absolute #) 0.71 x10^3/uL (0-0.5); Hematocrit 27.1 % (42-50); Hemoglobin 8.4 g/dL (12.5-18.0); IMMATURE GRAN # 0.04 x10^3u/L (0.00-0.03); IMMATURE GRAN % 0.6 % (0.00-0.4); Lymphocyte (Absolute #) 0.74 x10^3/uL (1.0-4.6); Lymphocytes % 10.2 % (24.0-44.0); Mean Cell Volume 90.3 fL (78-100); Mean Platelet Volume 8.7 fL (7.5-11.0); Monocyte (Absolute #) 0.75 x10^3/uL (0.0-1.3); Monocytes % 10.3 % (0.0-12.0); Neutrophil % 68.4 % (36.0-66.0); Platelet Count 256 x10^3/uL (150-450); Red Cell Distribution Width 12.6 % (11.5-14.0); White Blood Count 7.3 x10^3/uL (4.0-10.5)
[2022-10-27 06:20] LABS: ALBUMIN 2.8 g/dL (3.5-5.0); ANION GAP 11.3 MEQ/L (5-15); BILIRUBIN,TOTAL 0.3 mg/dL (0.2-1.3); Creatinine 1 3.1 mg/dL (0.66-1.25); EST GLOMERULAR FILTRATION RATE 24.2 ML/MIN; Potassium 5.3 mmol/L (3.5-5.1); Total Protein 5.8 g/dL (6.3-8.2)
[2022-10-27] MEDS ORDERED: Coreg 3.125 MG PO SCH (07:23)
--- NOTE | 2022-10-27 07:27 | PCM.DS ---
Discharge Summary Date of Admission: 10/24/22 12:05 Admitting Physician: VALENTINA STARKS Primary Care Provider: VALENTINA STARKS Allergies Allergies No Known Drug Allergies Allergy (Verified 10/23/22 21:16) Hospital Summary - Hospital Course Hospital Course: patient under the care of Dr Maxwell during stay until date of discharge, he is tolerating po intake with no vomiting. kidney function is poor but stable. his bp has been high but improved, overall he is felt ready for discharge other than persistent htn, increasing his coreg dose this am, if better later today can go home. - Vitals & Intake/Output Vital Signs: Vital Signs Temperature 97.5 F 10/27/22 07:03 Pulse Rate 80 10/27/22 07:03 Respiratory Rate 15 10/27/22 07:03 Blood Pressure 185/95 10/27/22 07:03 O2 Sat by Pulse Oximetry 91 L 10/27/22 07:03 Intake & Output: Intake & Output 10/24/22 10/25/22 10/26/22 10/27/22 11:59 11:59 11:59 11:59 Intake Total 480 7355 5122 5281 Output Total 2475 2550 3100 2650 Balance -1994 4802021 2631 Weight 74.1 kg 77.2 kg 77.2 kg - Lab Result Diagrams: 10/27/22 05:22 10/27/22 05:22 Lab Results-Last 24 Hrs: Lab Results-Last 24 Hours 10/26/22 10/26/22 10/26/22 Range/Units 07:37 11:44 16:23 WBC (4.0-10.5) x10^3/uL RBC (4.1-5.6) x10^6/uL Hgb (12.5-18.0) g/dL Hct (42-50) % MCV (78-100) fL MCH (26-32) pg MCHC (32-36) g/dL RDW (11.5-14.0) % Plt Count (150-450) x10^3/uL MPV (7.5-11.0) fL Gran % (36.0-66.0) % Immature Gran % (Auto) (0.00-0.4) % Nucleat RBC Rel Count (0.00-0.1) % Eos # (Auto) (0-0.5) x10^3/uL Immature Gran # (Auto) (0.00-0.03) x10^3u/L Absolute Lymphs (auto) (1.0-4.6) x10^3/uL Absolute Monos (auto) (0.0-1.3) x10^3/uL Absolute Nucleated RBC (0.00-0.01) x10^3u/L Lymphocytes % (24.0-44.0) % Monocytes % (0.0-12.0) % Eosinophils % (0.00-5.0) % Basophils % (0.0-0.4) % Absolute Granulocytes (1.4-6.9) x10^3/uL Basophils # (0-0.4) x10^3/uL Sodium (137-145) mmol/L Potassium (3.5-5.1) mmol/L Chloride (98-107) mmol/L Carbon Dioxide (22-30) mmol/L Anion Gap (5-15) MEQ/L BUN (9-20) mg/dL Creatinine (0.66-1.25) mg/dL Estimated GFR ML/MIN Glucose (74-106) mg/dL POC Glucometer 77 234 H 186 H (74 to 106) mg/dL Calcium (8.4-10.2) mg/dL Total Bilirubin (0.2-1.3) mg/dL AST (17-59) U/L ALT (0-50) U/L Alkaline Phosphatase (38-126) U/L Serum Total Protein (6.3-8.2) g/dL Albumin (3.5-5.0) g/dL 10/26/22 10/27/22 10/27/22 Range/Units 20:45 05:22 05:22 WBC 7.3 (4.0-10.5) x10^3/uL RBC 3.00 L (4.1-5.6) x10^6/uL Hgb 8.4 L (12.5-18.0) g/dL Hct 27.1 L (42-50) % MCV 90.3 (78-100) fL MCH 28.0 (26-32) pg MCHC 31.0 L (32-36) g/dL RDW 12.6 (11.5-14.0) % Plt Count 256 (150-450) x10^3/uL MPV 8.7 (7.5-11.0) fL Gran % 68.4 H (36.0-66.0) % Immature Gran % (Auto) 0.6 H (0.00-0.4) % Nucleat RBC Rel Count 0.0 (0.00-0.1) % Eos # (Auto) 0.71 H (0-0.5) x10^3/uL Immature Gran # (Auto) 0.04 H (0.00-0.03) x10^3u/L Absolute Lymphs (auto) 0.74 L (1.0-4.6) x10^3/uL Absolute Monos (auto) 0.75 (0.0-1.3) x10^3/uL Absolute Nucleated RBC 0.00 (0.00-0.01) x10^3u/L Lymphocytes % 10.2 L (24.0-44.0) % Monocytes % 10.3 (0.0-12.0) % Eosinophils % 9.8 H (0.00-5.0) % Basophils % 0.7 (0.0-0.4) % Absolute Granulocytes 4.97 (1.4-6.9) x10^3/uL Basophils # 0.05 (0-0.4) x10^3/uL Sodium 132 L (137-145) mmol/L Potassium 5.3 H (3.5-5.1) mmol/L Chloride 104 (98-107) mmol/L Carbon Dioxide 22 (22-30) mmol/L Anion Gap 11.3 (5-15) MEQ/L BUN 37 H (9-20) mg/dL Creatinine 3.10 H (0.66-1.25) mg/dL Estimated GFR 24.2 ML/MIN Glucose 204 H (74-106) mg/dL POC Glucometer 196 H (74 to 106) mg/dL Calcium 8.0 L (8.4-10.2) mg/dL Total Bilirubin 0.30 (0.2-1.3) mg/dL AST 25 (17-59) U/L ALT 15 (0-50) U/L Alkaline Phosphatase 144 H (38-126) U/L Serum Total Protein 5.8 L (6.3-8.2) g/dL Albumin 2.8 L (3.5-5.0) g/dL Micro Results-Entire Visit: Microbiology 10/23/22 18:02 Urine Culture - Final Urine, Void NO GROWTH Accuchecks Date 10/27/22 Date 10/26/22 Date 10/26/22 Time 07:03 Time 16:26 Time 08:01 Discharge Exam General Appearance: no apparent distress Neurologic Exam: alert, oriented x 3 Respiratory Exam: normal breath sounds, lungs clear, No respiratory distress Cardiovascular Exam: regular rate/rhythm, normal heart sounds Gastrointestinal/Abdomen Exam: soft, No tenderness, No mass Final Diagnosis/Problem List - Final Discharge Diagnosis/Problem (1) Hypertensive emergency Current Visit: Yes Status: Acute Code(s): I16.1 - HYPERTENSIVE EMERGENCY (2) Chronic renal insufficiency Current Visit: Yes Status: Chronic Code(s): N18.9 - CHRONIC KIDNEY DISEASE, UNSPECIFIED (3) Diabetes mellitus type I Current Visit: No Status: Chronic Onset Date: ~05/30/18 (4) Vomiting Current Visit: No Status: Resolved Code(s): R11.10 - VOMITING, UNSPECIFIED - Discharge Disposition: Home, Self-Care Condition: Stable Prescriptions: New Carvedilol [Coreg ] 6.25 mg PO BID #60 tablet Insulin Glargine [Lantus Insulin] 20 unit SQ AMINSULIN #600 unit Amlodipine Besylate 5 mg [Norvasc 5 mg] 5 mg PO QAM #30 tablet Continue Clonidine HCl Tts-2 Patch [Catapres TTS-2 PATCH] 0.2 mg TOP Q7D #3 patch Insulin Lispro [Admelog Solostar] 10 - 15 unit SQ TIDWMEALS #3 Ondansetron ODT 4 MG [Zofran Odt 4 mg] 4 mg PO Q6H PRN PRN #10 tablet PRN Reason: Vomiting HydrALAzine HCL 25 MG TAB [Apresoline 25 MG TABLET] 50 mg PO TID Additional Instructions: PEN NEEDLES WERE CALLED INTO [facility]. Follow up with: VALENTINA STARKS [Primary Care Provider] - 11/08/22 3:00 pm
[2022-10-27] MEDS: Lantus Insulin SQ SCH (07:48)
[2022-10-27] MEDS: HUMALOG SQ PRN ×2 (07:49→11:46)
[2022-10-27] MEDS: ECOTRIN 81 MG PO SCH (08:59)
[2022-10-27] MEDS: Apresoline 25 MG TABLET PO SCH (08:59)
[2022-10-27] MEDS: Pepcid 20 MG VIAL IV SCH (08:59)
[2022-10-27] MEDS: ENOXAPARIN SODIUM SQ SCH (09:00)
[2022-10-27] MEDS: NORVASC 5 MG PO SCH (09:00)
[2022-10-27] MEDS: Sodium Chloride 0.9% 1000 ML 1,000 ML IV SCH (09:01)
[2022-10-27 11:23] VITALS: O2SAT 97
[2022-10-27] MEDS ORDERED: Apresoline 25 MG TABLET PO ONE (15:00)
[2022-10-27 15:05] VITALS: PULSE 82
[2022-10-27 16:39] VITALS: BP 156/79
[2022-10-27] MEDS ORDERED: Apresoline 25 MG TABLET PO SCH (22:00)
== END 2022-10-27 17:55 | disposition home or self-care (01) | DRG 305 ==
LOC: ED 16:16 → INTOOBSV 20:47 → MED SURG 20:47 → OBSVTOIN 20:47 → UNDOADMOB 20:47 → ICU 10-24 03:16 → MED SURG 10-24 03:16 → OBSVTOIN 10-24 12:05 → ICU 10-25 11:55 → MED SURG 10-25 11:55
PROVIDERS: ADMIT Family Medicine; ATTEND Family Medicine
DX: I16.1 Hypertensive emergency (principal); N18.4 Chronic kidney disease, stage 4 (severe); I12.9 Hypertensive chronic kidney disease with stage 1 through stage 4 chronic kidney disease, or unspecified chronic kidney disease; E10.65 Type 1 diabetes mellitus with hyperglycemia; R11.10 Vomiting, unspecified; R77.8 Other specified abnormalities of plasma proteins; E10.22 Type 1 diabetes mellitus with diabetic chronic kidney disease; R10.9 Unspecified abdominal pain; Z79.899 Other long term (current) drug therapy; Z20.828 Contact with and (suspected) exposure to other viral communicable diseases; Z79.01 Long term (current) use of anticoagulants
CPT/HCPCS: 0241U; 36000; 36415; 74176; 80048; 80053; 81001; 82947; 83036; 84145; 84484; 85025; 87086; 93005; 93041; 94760; 99285; J0360; J1650; J1817; J2270; J2405; J2543; J2550; A9270-GY; G0378

== ENCOUNTER 2022-10-29 15:34 | Observation (INO) | payer MEDICAID, OTHER ==
[2022-10-29] MEDS ORDERED: Sodium Chloride 0.9% 1000 ML 1,000 ML IV STA (15:42)
[2022-10-29] MEDS ORDERED: Zofran 4 MG/2 ML VIAL IV ONE (15:42)
[2022-10-29] MEDS ORDERED: Hydromorphone 1 mg/ml Injection IV ONE ×2 (15:47→17:37)
[2022-10-29] MEDS ORDERED: Hydromorphone 1 mg/ml Injection ONE ×2 (15:48→20:22)
[2022-10-29] MEDS ORDERED: Zofran 4 MG/2 ML VIAL ONE (15:48)
[2022-10-29] MEDS ORDERED: Sodium Chloride 0.9% 1000 ML 1,000 ML ONE (15:49)
[2022-10-29 16:05] LABS: VBG BASE EXCESS -1.7 (-2.0-2.0); VBG CARBOXYHEMOGLOBIN 2.9 % T HGB (0.0-6.9); VBG HEMOGLOBIN 9.8; VBG O2 SATURATION 88.6 (95-100); VBG POTASSIUM 3.8 (3.5-5.1); VBG pH 7.39 (7.32-7.42)
[2022-10-29 16:24] LABS: Absolute Neutrophil Ct (ANC) 9.18 x10^3/uL (1.4-6.9); BASOPHIL % 0.3 % (0.0-0.4); Basophil (Absolute #) 0.03 x10^3/uL (0-0.4); Eosinophil % 2.8 % (0.00-5.0); Hematocrit 27.4 % (42-50); Hemoglobin 8.9 g/dL (12.5-18.0); IMMATURE GRAN # 0.06 x10^3u/L (0.00-0.03); IMMATURE GRAN % 0.6 % (0.00-0.4); Lymphocyte (Absolute #) 0.47 x10^3/uL (1.0-4.6); Lymphocytes % 4.4 % (24.0-44.0); Mean Cell Volume 87.3 fL (78-100); Mean Corpuscular Hemoglobin 28.3 pg (26-32); Mean Corpuscular Hgb Concent. 32.5 g/dL (32-36); Monocyte (Absolute #) 0.68 x10^3/uL (0.0-1.3); Monocytes % 6.3 % (0.0-12.0); Neutrophil % 85.6 % (36.0-66.0); Platelet Count 299 x10^3/uL (150-450); Red Blood Count 3.14 x10^6/uL (4.1-5.6); Red Cell Distribution Width 12.8 % (11.5-14.0); White Blood Count 10.7 x10^3/uL (4.0-10.5)
[2022-10-29 16:34] LABS: AMYLASE 70 U/L (30-110); LIPASE 20 U/L (23-300)
[2022-10-29 16:36] LABS: ALBUMIN 3.6 g/dL (3.5-5.0); BILIRUBIN,TOTAL 0.4 mg/dL (0.2-1.3); Calcium 8.6 mg/dL (8.4-10.2); Creatinine 1 3.19 mg/dL (0.66-1.25); EST GLOMERULAR FILTRATION RATE 23.4 ML/MIN; MAGNESIUM 1.8 mg/dL (1.6-2.3)
--- NOTE | 2022-10-29 16:41 | XRAY ---
Indication: Cough. Comparison: December 17, 2022 Portable chest demonstrates new hazy patchy groundglass airspace disease, right lung greater than left without consolidation/effusion. Remaining heart and bony thorax normal.
[2022-10-29] MEDS ORDERED: APRESOLINE 20 MG/ML INJ IV ONE ×3 (17:07→22:18)
[2022-10-29] MEDS ORDERED: Reglan 10 MG/2 ML IV ONE (17:10)
[2022-10-29] MEDS ORDERED: APRESOLINE 20 MG/ML INJ ONE (17:15)
[2022-10-29] MEDS ORDERED: Reglan 10 MG/2 ML ONE (17:15)
[2022-10-29] MEDS ORDERED: NORVASC 5 MG ONE (17:15)
--- NOTE | 2022-10-29 17:16 | ERPHSYRPT ---
- History of Present Illness Time Seen by Provider: 10/29/22 15:45 Historian: patient Exam Limitations: no limitations Patient Subjective Stated Complaint: C/O vomiting that started early this morning Triage Nursing Assessment: Patient ambulated back to ER with a hunched gait. No SOB. He is alert and oriented. Edema noted to BLE; right worse that left. 4 small blisters noted to right anterior leg just below patient's knee. JOSEFINA WNL. Patient dry heaving in room. Physician History: Patient is a 37-year-old insulin-dependent diabetic who presents after recently being released from the hospital with a complaint of being sick since this morning. He had severe nausea vomiting abdominal pain and chest tightness. He has frequent episodes of DKA. He also has had a non-STEMI. Timing/Duration: today Activities at Onset: none Quality: cramping, pressure Abdominal Pain Onset Location: generalized abdomen Pain Radiation: no radiation Severity of Pain-Max: severe Severity of Pain-Current: moderate Modifying Factors: Improves With: vomiting Associated Symptoms: nausea, vomiting Previous symptoms: same symptoms as today Allergies/Adverse Reactions: No Known Drug Allergies Allergy (Verified 10/29/22 15:37) Home Medications: HydrALAzine HCL 25 MG TAB [Apresoline 25 MG TABLET] 50 mg PO TID 10/23/22 [History] Hx Tetanus, Diphtheria Vaccination/Date Given: Yes Hx Influenza Vaccination/Date Given: No Hx Pneumococcal Vaccination/Date Given: Yes (10/01/2016) Travel Risk - International Travel Have you traveled outside of the country in past 3 weeks: No - Coronavirus Screening Are you exhibiting any of the following symptoms?: Yes Symptoms: Vomiting/Diarrhea Close contact with a COVID-19 positive Pt in past 14-21 Days: No - Vaccine Status Have you recieved a Covid-19 vaccination: No - Review of Systems Constitutional: No Fever, No Chills Eyes: No Symptoms Ears, Nose, & Throat: No Symptoms Respiratory: No Cough, No Dyspnea Cardiac: Chest Pain, Edema (Bilateral pedal edema right greater than left), No Syncope Abdominal/Gastrointestinal: Abdominal Pain, Nausea, Vomiting, No Diarrhea Genitourinary Symptoms: No Dysuria Musculoskeletal: No Back Pain, No Neck Pain Skin: No Rash Neurological: No Dizziness, No Focal Weakness, No Sensory Changes Psychological: No Symptoms Endocrine: No Symptoms All Other Systems: Reviewed and Negative - Past Medical History Pertinent Past Medical History: Yes Neurological History: No Pertinent History ENT History: No Pertinent History Cardiac History: High Cholesterol, Hypertension Respiratory History: No Pertinent History Endocrine Medical History: Diabetes Type I Musculoskeletal History: No Pertinent History GI Medical History: No Pertinent History History: Renal Disease Psycho-Social History: Anxiety, Depression Male Reproductive Disorders: No Pertinent History Other Medical History: prior drug use - Past Surgical History Past Surgical History: No Neuro Surgical History: No Pertinent History Cardiac: No Pertinent History Respiratory: No Pertinent History Gastrointestinal: No Pertinent History Genitourinary: No Pertinent History Musculoskeletal: No Pertinent History Male Surgical History: No Pertinent History Other Surgical History: . - Social History Smoking Status: Never smoker How long have you smoked: 1 year Exposure to second hand smoke: No Drug Use: none Patient Lives Alone: No Significant Family History: no pertinent family hx - Nursing Vital Signs Nursing Vital Signs: Initial Vital Signs Temperature 96.1 F 10/29/22 15:38 Pulse Rate 130 H 10/29/22 15:38 Respiratory Rate 20 10/29/22 15:38 Blood Pressure 207/147 10/29/22 15:38 O2 Sat by Pulse Oximetry 97 10/29/22 15:38 Pain Scale Pain Intensity 0 - Physical Exam General Appearance: moderate distress (Constantly retching), alert Eye Exam: PERRL/EOMI, eyes nml inspection Ears, Nose, Throat Exam: normal ENT inspection, pharynx normal, moist mucous membranes Neck Exam: normal inspection, non-tender, supple, full range of motion Respiratory Exam: normal breath sounds, lungs clear, No respiratory distress Cardiovascular Exam: regular rate/rhythm, normal heart sounds Gastrointestinal/Abdomen Exam: soft, No tenderness, No mass Back Exam: normal inspection, normal range of motion, No CVA tenderness, No vertebral tenderness Extremity Exam: normal inspection, normal range of motion, pelvis stable Neurologic Exam: alert, oriented x 3, cooperative, normal mood/affect, nml cerebellar function, sensation nml, No motor deficits Skin Exam: normal color, warm, dry SpO2 Interpretation: normal SpO2: 98 O2 Delivery: Room Air - Course Nursing assessment & vital signs reviewed: Yes EKG Interpreted by Me: RATE ([id number]), Sinus Tach, NORMAL AXIS, NORMAL INTERVALS, NORMAL QRS, Non-specific ST Changes, Other (Poor R wave progression) - Radiology Exams Chest X-ray Interpretation: Reviewed by me, Other (Right-sided hazy airspace disease.) Ordered Tests: Active Orders 24 hr Category Date Time Status EKG-ER Only STAT Care 10/29/22 15:42 Active IV Insertion STAT Care 10/29/22 15:42 Active IV Insertion-2nd Peripheral STAT Care 10/29/22 15:42 Active CHEST 1 VIEW (PORTABLE) Stat Exams 10/29/22 15:42 Completed AMYLASE Stat Lab 10/29/22 16:15 Completed BLOOD CULTURE Stat Lab 10/29/22 16:15 Received CBC W DIFF Stat Lab 10/29/22 16:15 Completed CMP Stat Lab 10/29/22 16:15 Completed LIPASE Stat Lab 10/29/22 16:15 Completed Lactic Acid Urgent Lab 10/29/22 15:42 Completed MAGNESIUM Stat Lab 10/29/22 16:15 Completed POCT GLUCOSE Stat Lab 10/29/22 15:40 Completed TROPONIN Q4H Lab 10/29/22 16:15 Completed TROPONIN Q4H Lab 10/29/22 19:45 Ordered TROPONIN Q4H Lab 10/29/22 23:45 Ordered UA W/RFX UR CULTURE Stat Lab 10/29/22 15:42 Ordered Urine Triage Profile Stat Lab 10/29/22 15:44 Ordered VENOUS BLOOD GAS Stat Lab 10/29/22 16:00 Completed Medication Summary Generic Name Dose Route Start Last Admin Trade Name Freq PRN Reason Stop Dose Admin Carvedilol 6.25 mg 10/29/22 22:00 Carvedilol 6.25 Mg Tablet PO 11/28/22 21:59 BID XIN Metoclopramide HCl 10 mg 10/29/22 17:10 Metoclopramide Hcl 10 Mg/2 Ml Vial IV 10/29/22 17:11 STAT ONE Discontinued Medications Generic Name Dose Route Start Last Admin Trade Name Freq PRN Reason Stop Dose Admin Amlodipine Besylate 10 mg 10/29/22 17:08 Amlodipine Besylate 5 Mg Tablet PO 10/29/22 17:09 STAT ONE Hydralazine HCl 20 mg 10/29/22 17:07 Hydralazine Hcl 20 Mg/Ml Vial IV 10/29/22 17:08 STAT ONE Hydromorphone HCl 1 mg 10/29/22 15:47 10/29/22 15:50 Hydromorphone 1 Mg/1ml Inj 1 Mg/Ml Syringe IV 10/29/22 15:48 1 mg STAT ONE Administration Hydromorphone HCl Confirm 10/29/22 15:48 Hydromorphone 1 Mg/1ml Inj 1 Mg/Ml Syringe Administered 10/29/22 15:49 Dose 1 mg .ROUTE .STK-MED ONE Sodium Chloride 1,000 mls @ 999 mls/hr 10/29/22 15:42 10/29/22 16:53 Sodium Chloride 0.9% 1000 Ml IV 10/29/22 16:42 Infused .Q1H1M STA Infusion Sodium Chloride Confirm 10/29/22 15:49 Sodium Chloride 0.9% 1000 Ml Administered 10/29/22 15:50 Dose 1,000 mls @ ud .ROUTE .STK-MED ONE Ondansetron HCl 4 mg 10/29/22 15:42 10/29/22 15:50 Ondansetron Hcl 4 Mg/2 Ml Vial IV 10/29/22 15:43 4 mg STAT ONE Administration Ondansetron HCl Confirm 10/29/22 15:48 Ondansetron Hcl 4 Mg/2 Ml Vial Administered 10/29/22 15:49 Dose 4 mg .ROUTE .STK-MED ONE Lab/Rad Data: Laboratory Result Diagrams 10/29/22 16:15 10/29/22 16:15 Laboratory Results 10/29/22 10/29/22 10/29/22 Range/Units 16:15 16:15 16:15 WBC (4.0-10.5) x10^3/uL RBC (4.1-5.6) x10^6/uL Hgb (12.5-18.0) g/dL Hct (42-50) % MCV (78-100) fL MCH (26-32) pg MCHC (32-36) g/dL RDW (11.5-14.0) % Plt Count (150-450) x10^3/uL MPV (7.5-11.0) fL Gran % (36.0-66.0) % Immature Gran % (Auto) (0.00-0.4) % Nucleat RBC Rel Count (0.00-0.1) % Eos # (Auto) (0-0.5) x10^3/uL Immature Gran # (Auto) (0.00-0.03) x10^3u/L Absolute Lymphs (auto) (1.0-4.6) x10^3/uL Absolute Monos (auto) (0.0-1.3) x10^3/uL Absolute Nucleated RBC (0.00-0.01) x10^3u/L Lymphocytes % (24.0-44.0) % Monocytes % (0.0-12.0) % Eosinophils % (0.00-5.0) % Basophils % (0.0-0.4) % Absolute Granulocytes (1.4-6.9) x10^3/uL Basophils # (0-0.4) x10^3/uL pO2/FiO2 Ratio % VBG pH (7.32-7.42) VBG pCO2 at Pat Temp (42-55) mm/Hg VBG pO2 at Pat Temp (25-40) mm/Hg VBG HCO3 (22-28) meq/L VBG O2 Sat (Jalen) (95-100) VBG Base Excess (-2.0-2.0) VBG Hemoglobin VBG Carboxyhemoglobin (0.0-6.9) % T HGB POC Potassium (3.5-5.1) Sodium 137 (137-145) mmol/L Potassium 4.0 (3.5-5.1) mmol/L Chloride 102 (98-107) mmol/L Carbon Dioxide 21 L (22-30) mmol/L Anion Gap 18.0 H (5-15) MEQ/L BUN 41 H (9-20) mg/dL Creatinine 3.19 H (0.66-1.25) mg/dL Estimated GFR 23.4 ML/MIN Glucose 314 H (74-106) mg/dL POC Glucometer (74 to 106) mg/dL Lactic Acid (0.4-2.0) Calcium 8.6 (8.4-10.2) mg/dL Magnesium 1.8 (1.6-2.3) mg/dL Total Bilirubin 0.40 (0.2-1.3) mg/dL AST 33 (17-59) U/L ALT 23 (0-50) U/L Alkaline Phosphatase 125 (38-126) U/L Troponin I 0.045 H* (0.000-0.034) ng/mL Serum Total Protein 7.0 (6.3-8.2) g/dL Albumin 3.6 (3.5-5.0) g/dL Amylase 70 (30-110) U/L Lipase 20 L (23-300) U/L 10/29/22 10/29/22 10/29/22 Range/Units 16:15 16:00 15:42 WBC 10.7 H (4.0-10.5) x10^3/uL RBC 3.14 L (4.1-5.6) x10^6/uL Hgb 8.9 L (12.5-18.0) g/dL Hct 27.4 L (42-50) % MCV 87.3 (78-100) fL MCH 28.3 (26-32) pg MCHC 32.5 (32-36) g/dL RDW 12.8 (11.5-14.0) % Plt Count 299 (150-450) x10^3/uL MPV 8.0 (7.5-11.0) fL Gran % 85.6 H (36.0-66.0) % Immature Gran % (Auto) 0.6 H (0.00-0.4) % Nucleat RBC Rel Count 0.0 (0.00-0.1) % Eos # (Auto) 0.30 (0-0.5) x10^3/uL Immature Gran # (Auto) 0.06 H (0.00-0.03) x10^3u/L Absolute Lymphs (auto) 0.47 L (1.0-4.6) x10^3/uL Absolute Monos (auto) 0.68 (0.0-1.3) x10^3/uL Absolute Nucleated RBC 0.00 (0.00-0.01) x10^3u/L Lymphocytes % 4.4 L (24.0-44.0) % Monocytes % 6.3 (0.0-12.0) % Eosinophils % 2.8 (0.00-5.0) % Basophils % 0.3 (0.0-0.4) % Absolute Granulocytes 9.18 H (1.4-6.9) x10^3/uL Basophils # 0.03 (0-0.4) x10^3/uL pO2/FiO2 Ratio 21.0 % VBG pH 7.39 (7.32-7.42) VBG pCO2 at Pat Temp 38 L (42-55) mm/Hg VBG pO2 at Pat Temp 56 H (25-40) mm/Hg VBG HCO3 23.0 (22-28) meq/L VBG O2 Sat (Jalen) 88.6 L (95-100) VBG Base Excess -1.7 (-2.0-2.0) VBG Hemoglobin 9.8 VBG Carboxyhemoglobin 2.9 (0.0-6.9) % T HGB POC Potassium 3.8 (3.5-5.1) Sodium (137-145) mmol/L Potassium (3.5-5.1) mmol/L Chloride (98-107) mmol/L Carbon Dioxide (22-30) mmol/L Anion Gap (5-15) MEQ/L BUN (9-20) mg/dL Creatinine (0.66-1.25) mg/dL Estimated GFR ML/MIN Glucose (74-106) mg/dL POC Glucometer (74 to 106) mg/dL Lactic Acid 2.0 (0.4-2.0) Calcium (8.4-10.2) mg/dL Magnesium (1.6-2.3) mg/dL Total Bilirubin (0.2-1.3) mg/dL AST (17-59) U/L ALT (0-50) U/L Alkaline Phosphatase (38-126) U/L Troponin I (0.000-0.034) ng/mL Serum Total Protein (6.3-8.2) g/dL Albumin (3.5-5.0) g/dL Amylase (30-110) U/L Lipase (23-300) U/L 10/29/22 Range/Units 15:40 WBC (4.0-10.5) x10^3/uL RBC (4.1-5.6) x10^6/uL Hgb (12.5-18.0) g/dL Hct (42-50) % MCV (78-100) fL MCH (26-32) pg MCHC (32-36) g/dL RDW (11.5-14.0) % Plt Count (150-450) x10^3/uL MPV (7.5-11.0) fL Gran % (36.0-66.0) % Immature Gran % (Auto) (0.00-0.4) % Nucleat RBC Rel Count (0.00-0.1) % Eos # (Auto) (0-0.5) x10^3/uL Immature Gran # (Auto) (0.00-0.03) x10^3u/L Absolute Lymphs (auto) (1.0-4.6) x10^3/uL Absolute Monos (auto) (0.0-1.3) x10^3/uL Absolute Nucleated RBC (0.00-0.01) x10^3u/L Lymphocytes % (24.0-44.0) % Monocytes % (0.0-12.0) % Eosinophils % (0.00-5.0) % Basophils % (0.0-0.4) % Absolute Granulocytes (1.4-6.9) x10^3/uL Basophils # (0-0.4) x10^3/uL pO2/FiO2 Ratio % VBG pH (7.32-7.42) VBG pCO2 at Pat Temp (42-55) mm/Hg VBG pO2 at Pat Temp (25-40) mm/Hg VBG HCO3 (22-28) meq/L VBG O2 Sat (Jalen) (95-100) VBG Base Excess (-2.0-2.0) VBG Hemoglobin VBG Carboxyhemoglobin (0.0-6.9) % T HGB POC Potassium (3.5-5.1) Sodium (137-145) mmol/L Potassium (3.5-5.1) mmol/L Chloride (98-107) mmol/L Carbon Dioxide (22-30) mmol/L Anion Gap (5-15) MEQ/L BUN (9-20) mg/dL Creatinine (0.66-1.25) mg/dL Estimated GFR ML/MIN Glucose (74-106) mg/dL POC Glucometer 311 H (74 to 106) mg/dL Lactic Acid (0.4-2.0) Calcium (8.4-10.2) mg/dL Magnesium (1.6-2.3) mg/dL Total Bilirubin (0.2-1.3) mg/dL AST (17-59) U/L ALT (0-50) U/L Alkaline Phosphatase (38-126) U/L Troponin I (0.000-0.034) ng/mL Serum Total Protein (6.3-8.2) g/dL Albumin (3.5-5.0) g/dL Amylase (30-110) U/L Lipase (23-300) U/L - Progress Progress: improved Discussed with DrMarcin: Hasmukh Will see patient in: hospital (observation) Medical Desision Making - Independent Historian Additional History obtained from: Spouse - External Record(s) Reviewed Records reviewed as a part of evaluation & management: Discharge Summary - Discussion of managment Care discussed with:: PCP (Dr. Maxwell) Reviewed:: Test results Agreed on:: Treatment plan Will see patient: In office - Diagnostic Testing Diagnostic test were ordered, analyzed, and reviewed by me: Yes Radiological Interpretation: Reviewed by me - Risk of complications The pt has a high risk of morbidity or mortality based on: Drug therapy requiring intensive monitoring for toxicity, Decision regarding hospitilization or escalation of hosp level of care - Departure Departure Disposition: Home Clinical Impression: Abdominal pain, Right lung airspace disease, Chronic renal insufficiency Condition: Fair Critical Care Time: No Referrals: VALENTINA STARKS [Primary Care Provider] - Follow up/PCP as directed
[2022-10-29] MEDS: NORVASC 5 MG PO ONE ×2 (17:20→19:52)
[2022-10-29] MEDS ORDERED: Zofran 4 MG/2 ML VIAL IV PRN (17:22)
[2022-10-29] MEDS: Sodium Chloride 0.9% 1000 ML 1,000 ML IV SCH (17:31)
[2022-10-29] MEDS ORDERED: PIPERACILLIN/TAZOBACTAM IV ONE (18:01)
[2022-10-29] MEDS ORDERED: Sodium Chloride 100ML MINI-BAG PLUS 100 ML IV ONE (18:01)
[2022-10-29 18:02] LABS: INFLUENZA A NEGATIVE (NEGATIVE); INFLUENZA B NEGATIVE (NEGATIVE); RESPIRATORY SYNCTIAL VIRUS NEGATIVE (Negative); SARS-CoV-2 Xpert Express NEGATIVE (NEGATIVE)
[2022-10-29 18:03] LABS: Appearance Clear (Clear); Bacteria None Seen /HPF (None Seen); Bilirubin Negative (Negative); Blood Small (Negative); Epithelial Cells None Seen /HPF (None Seen); Glucose, Urine >=1000 mg/dL (Negative); Hyaline Casts NONE SEEN /LPF (0-2); Ketones 15 (Negative); Leukocyte Esterase Negative (Negative); Nitrite Negative (Negative); Protein,Urine Dip 300 (Negative); Specific Gravity 1.015 (1.005-1.030); Urobilinogen 0.2 mg/dL (0.2); WBC 0-2 /HPF (0-5)
[2022-10-29] MEDS: PIPERACILLIN/TAZOBACTAM 3.375 GM in Sodium Chloride 100ML MINI-BAG PLUS 100 ML IV SCH ×2 (18:04→23:13)
[2022-10-29 18:05] LABS: ADD URINE CULTURE? YES (NO)
[2022-10-29 18:15] LABS: Amphetamine,Urine NEGATIVE (NEGATIVE); Barbiturate,Urine NEGATIVE (NEGATIVE); Benzodiazepine,Urine NEGATIVE (NEGATIVE); Cocaine,Urine NEGATIVE (NEGATIVE); Methadone,Urine NEGATIVE (NEGATIVE); Opiate,Urine NEGATIVE (NEGATIVE); PCP,Urine NEGATIVE (NEGATIVE); THC,Urine NEGATIVE (NEGATIVE)
[2022-10-29 19:29] LABS: Slide Review 1 YES
[2022-10-29] MEDS: Hydromorphone 1 mg/ml Injection IV PRN (20:22)
[2022-10-29] MEDS: HUMALOG SQ PRN (21:44)
[2022-10-29] MEDS: Coreg PO SCH (21:45)
[2022-10-29] MEDS ORDERED: Phenergan 25 MG INJ ONE (23:00)
[2022-10-29] MEDS ORDERED: Sodium Chloride 0.9% 100 ML ONE (23:01)
[2022-10-29] MEDS: Zofran 4 MG/2 ML VIAL IV SCH (23:13)
[2022-10-29] MEDS: Phenergan 25 MG INJ*** 12.5 MG in Sodium Chloride 0.9% 100 ML IV PRN (23:13)
[2022-10-30] MEDS ORDERED: Zofran 4 MG/2 ML VIAL IV PRN
[2022-10-30] MEDS: Sodium Chloride 0.9% 1000 ML 1,000 ML IV SCH ×2 (01:28→08:51)
[2022-10-30] MEDS: Zofran 4 MG/2 ML VIAL IV SCH ×3 (03:43→11:19)
[2022-10-30] MEDS ORDERED: Sodium Chloride 0.9% 100 ML ONE (04:57)
[2022-10-30] MEDS ORDERED: Phenergan 25 MG INJ ONE (04:57)
[2022-10-30] MEDS ORDERED: PIPERACILLIN/TAZOBACTAM IV ONE (04:57)
[2022-10-30] MEDS ORDERED: Sodium Chloride 100ML MINI-BAG PLUS 100 ML IV ONE (04:58)
[2022-10-30] MEDS: PIPERACILLIN/TAZOBACTAM 3.375 GM in Sodium Chloride 100ML MINI-BAG PLUS 100 ML IV SCH (05:04)
[2022-10-30] MEDS: Phenergan 25 MG INJ*** 12.5 MG in Sodium Chloride 0.9% 100 ML IV PRN ×2 (05:04→09:29)
[2022-10-30] MEDS: Hydromorphone 1 mg/ml Injection IV PRN ×2 (05:16→09:00)
[2022-10-30] MEDS: HUMALOG SQ PRN (05:22)
[2022-10-30 05:43] LABS: VBG BASE EXCESS -1.6 (-2.0-2.0); VBG CARBOXYHEMOGLOBIN 3.9 % T HGB (0.0-6.9); VBG HCO3- 22.8 meq/L (22-28); VBG HEMOGLOBIN 8.3; VBG O2 SATURATION 98.6 (95-100); VBG POTASSIUM 3.7 (3.5-5.1); VBG pH 7.41 (7.32-7.42)
[2022-10-30 05:44] LABS: Absolute Neutrophil Ct (ANC) 7.76 x10^3/uL (1.4-6.9); BASOPHIL % 0.3 % (0.0-0.4); Basophil (Absolute #) 0.03 x10^3/uL (0-0.4); Eosinophil % 2.1 % (0.00-5.0); Hematocrit 24.6 % (42-50); Hemoglobin 7.9 g/dL (12.5-18.0); IMMATURE GRAN # 0.04 x10^3u/L (0.00-0.03); IMMATURE GRAN % 0.4 % (0.00-0.4); Lymphocyte (Absolute #) 0.56 x10^3/uL (1.0-4.6); Lymphocytes % 5.9 % (24.0-44.0); Mean Cell Volume 86.6 fL (78-100); Mean Corpuscular Hemoglobin 27.8 pg (26-32); Mean Corpuscular Hgb Concent. 32.1 g/dL (32-36); Mean Platelet Volume 7.8 fL (7.5-11.0); Monocyte (Absolute #) 0.89 x10^3/uL (0.0-1.3); Monocytes % 9.4 % (0.0-12.0); Neutrophil % 81.9 % (36.0-66.0); Platelet Count 291 x10^3/uL (150-450); Red Blood Count 2.84 x10^6/uL (4.1-5.6); Red Cell Distribution Width 13.1 % (11.5-14.0); White Blood Count 9.5 x10^3/uL (4.0-10.5)
[2022-10-30 05:57] LABS: ALBUMIN 3.3 g/dL (3.5-5.0); ANION GAP 12.1 MEQ/L (5-15); BILIRUBIN,TOTAL 0.4 mg/dL (0.2-1.3); Calcium 8.1 mg/dL (8.4-10.2); Creatinine 1 3.35 mg/dL (0.66-1.25); EST GLOMERULAR FILTRATION RATE 22.1 ML/MIN; Potassium 3.7 mmol/L (3.5-5.1); Total Protein 6.4 g/dL (6.3-8.2)
[2022-10-30 06:09] LABS: Slide Review 1 YES
[2022-10-30 06:59] LABS: INR 0.94 (0.8-3.0); PROTIME 10.3 SECONDS (9.4-12.5)
[2022-10-30] MEDS: Coreg PO SCH ×2 (07:29→10:04)
[2022-10-30] MEDS ORDERED: TRANDATE 100MG/20 ML MDV IV ONE (07:45)
--- NOTE | 2022-10-30 09:00 | XRAY ---
Indication: Chest pain. Comparison: One day earlier Portable chest better inflated and is now clear. Heart not enlarged. No new/acute findings.
--- NOTE | 2022-10-30 09:02 | PCM.HP ---
History of Present Illness - Chief Complaint Chief Complaint: Abdominal pain; N/V History of Present Illness: is a 37 year old male pt of mine from [facility] with DM I (not well controlled), HTN (uncontrolled), CRI, chronic anemia, CAD (hx NSTEMI), chronically noncompliant, who was admitted through ER with abd pain and vomiting, with bilat pneumonia. CXR showed bilat patchy infiltrates, R>L. Troponin initially mildly elevated, and was trending upward (first two reading 0.045, and final reading at approx 11:30 pm was .074). Troponin, CXR, and EKG are ordered stat and pending now. He had been in the hospital last week with vomiting and abd pain; had elevated procalcitonin and some mild fever (100.4) so had been started on IV zosyn to cover intra-abdominal infection. He started feeling much better then was discharged to home 3d ago (Saturday) without any antibiotic. He notes that the day of discharge, he had LE edema but didn't mention it to anyone. At home, he felt good for a little bit then started having abd pain and coughing (with post- tussive emesis) and nausea. He does admit to some chest pain, substernal, 6- 02/25, thinks it may be due to vomiting. Overnight he had elevated BP and was given IV hydralazine. This morning his BP was 186/107 with HR 126, so was given 20 mg IV labetalol with HR returning to the 80s. During my interview, he was actively chilling. - Review of Systems Constitutional: Chills, Fatigue Respiratory: Cough, Short Of Breath Cardiac: Chest Pain Abdominal/Gastrointestinal: Abdominal Pain, Nausea, Vomiting All Other Systems: Reviewed and Negative Medications & Allergies Home Medications: Home Medication List Clonidine HCl Tts-2 Patch [Catapres TTS-2 PATCH] 0.2 mg TOP Q7D #3 patch 07/01/22 [Rx Confirmed 10/29/22] Insulin Lispro [Admelog Solostar] 10 - 15 unit SQ TIDWMEALS #3 07/01/22 [Rx Confirmed 10/29/22] Ondansetron ODT 4 MG [Zofran Odt 4 mg] 4 mg PO Q6H PRN PRN #10 tablet 10/17/22 [Rx Confirmed 10/29/22] HydrALAzine HCL 25 MG TAB [Apresoline 25 MG TABLET] 50 mg PO TID 10/23/22 [History Confirmed 10/29/22] Amlodipine Besylate 5 mg [Norvasc 5 mg] 5 mg PO QAM #30 tablet 10/27/22 [Rx Confirmed 10/29/22] Carvedilol [Coreg ] 6.25 mg PO BID #60 tablet 10/27/22 [Rx Confirmed 10/29/22] Insulin Glargine [Lantus Insulin] 20 unit SQ AMINSULIN #600 unit 10/27/22 [Rx Confirmed 10/29/22] Allergies/Adverse Reactions: Allergies Allergy/AdvReac Type Severity Reaction Status Date / Time No Known Drug Allergies Allergy Verified 10/29/22 15:37 - Past Medical History Past Medical History: Yes Neurological History: No Pertinent History ENT History: No Pertinent History Cardiac History: High Cholesterol, Hypertension Respiratory History: No Pertinent History Endocrine Medical History: Diabetes Type I Musculoskelatal History: No Pertinent History GI Medical History: No Pertinent History History: Renal Disease Pyscho-Social History: Anxiety, Depression Male Reproductive Disorders: No Pertinent History Comment: prior drug use - Past Surgical History Past Surgical History: No Neuro Surgical History: No Pertinent History Cardiac History: No Pertinent History Respiratory Surgery: No Pertinent History GI Surgical History: No Pertinent History Genitourinary Surgical Hx: No Pertinent History Musculskeletal Surgical Hx: No Pertinent History Male Surgical History: No Pertinent History Other Surgical History: . - Social History Smoking Status: Former smoker How long have you smoked: 1 year Exposure to second hand smoke: No Alcohol: None Drug Use: none Significant Family History: no pertinent family hx - Physical Exam Vital Signs: Vital Signs - 24 hr Temp Pulse Resp BP BP Pulse Ox 10/30/22 07:26 97.8 F 126 H 19 186/107 97 10/30/22 03:52 97.7 F 112 H 18 182/97 95 10/30/22 00:00 98.2 F 112 H 16 126/61 93 L 10/29/22 18:54 97.5 F 136 H 17 168/106 93 L 10/29/22 18:40 97.5 F 136 H 17 168/106 98 10/29/22 17:20 98 10/29/22 16:39 97 H 16 194/118 98 10/29/22 15:38 96.1 F 130 H 20 207/147 97 General Appearance: moderate distress (He is actively chilling during exam), alert Neurologic Exam: oriented x 3, cooperative Eye Exam: eyes nml inspection Ears, Nose, Throat Exam: moist mucous membranes Neck Exam: normal inspection, non-tender, other (IV present R neck), No lymphadenopathy, No subcutaneous emphysema, No thyromegaly Respiratory Exam: normal breath sounds, lungs clear, No crackles/rales, No rhonchi, No wheezing Cardiovascular Exam: regular rate/rhythm, normal heart sounds, No murmur Gastrointestinal/Abdomen Exam: soft, tenderness (generalized, mild), No normal bowel sounds (hypoactive but present), No distention, No mass, No guarding, No rebound Back Exam: normal inspection, No rash Extremity Exam: normal inspection, swelling (trace pretibial edema bilat) Skin Exam: normal color, warm, dry, No rash Results - Labs Lab/Micro Results: Lab Results-Last 24 Hours 10/29/22 10/29/22 10/29/22 Range/Units 15:40 15:42 16:00 WBC (4.0-10.5) x10^3/uL RBC (4.1-5.6) x10^6/uL Hgb (12.5-18.0) g/dL Hct (42-50) % MCV (78-100) fL MCH (26-32) pg MCHC (32-36) g/dL RDW (11.5-14.0) % Plt Count (150-450) x10^3/uL MPV (7.5-11.0) fL Gran % (36.0-66.0) % Immature Gran % (Auto) (0.00-0.4) % Nucleat RBC Rel Count (0.00-0.1) % Eos # (Auto) (0-0.5) x10^3/uL Immature Gran # (Auto) (0.00-0.03) x10^3u/L Absolute Lymphs (auto) (1.0-4.6) x10^3/uL Absolute Monos (auto) (0.0-1.3) x10^3/uL Absolute Nucleated RBC (0.00-0.01) x10^3u/L Lymphocytes % (24.0-44.0) % Monocytes % (0.0-12.0) % Eosinophils % (0.00-5.0) % Basophils % (0.0-0.4) % Absolute Granulocytes (1.4-6.9) x10^3/uL Basophils # (0-0.4) x10^3/uL PT (9.4-12.5) SECONDS INR (0.8-3.0) pO2/FiO2 Ratio 21.0 % VBG pH 7.39 (7.32-7.42) VBG pCO2 at Pat Temp 38 L (42-55) mm/Hg VBG pO2 at Pat Temp 56 H (25-40) mm/Hg VBG HCO3 23.0 (22-28) meq/L VBG O2 Sat (Jalen) 88.6 L (95-100) VBG Base Excess -1.7 (-2.0-2.0) VBG Hemoglobin 9.8 VBG Carboxyhemoglobin 2.9 (0.0-6.9) % T HGB POC Potassium 3.8 (3.5-5.1) Sodium (137-145) mmol/L Potassium (3.5-5.1) mmol/L Chloride (98-107) mmol/L Carbon Dioxide (22-30) mmol/L Anion Gap (5-15) MEQ/L BUN (9-20) mg/dL Creatinine (0.66-1.25) mg/dL Estimated GFR ML/MIN Glucose (74-106) mg/dL POC Glucometer 311 H (74 to 106) mg/dL Lactic Acid 2.0 (0.4-2.0) Calcium (8.4-10.2) mg/dL Magnesium (1.6-2.3) mg/dL Total Bilirubin (0.2-1.3) mg/dL AST (17-59) U/L ALT (0-50) U/L Alkaline Phosphatase (38-126) U/L Troponin I (0.000-0.034) ng/mL Serum Total Protein (6.3-8.2) g/dL Albumin (3.5-5.0) g/dL Amylase (30-110) U/L Lipase (23-300) U/L Urine Color (Yellow) Urine Appearance (Clear) Urine pH (4.6-8.0) Ur Specific [place] (1.005-1.030) Urine Protein (Negative) Urine Glucose (UA) (Negative) mg/dL Urine Ketones (Negative) Urine Blood (Negative) Urine Nitrite (Negative) Urine Bilirubin (Negative) Urine Urobilinogen (0.2) mg/dL Ur Leukocyte Esterase (Negative) U Hyaline Cast (Auto) (0-2) /LPF Urine Microscopic RBC (0-5) /HPF Urine Microscopic WBC (0-5) /HPF Ur Epithelial Cells (None Seen) /HPF Urine Bacteria (None Seen) /HPF Urine Culture Reflexed (NO) Urine Opiates Level (NEGATIVE) Ur Methadone (NEGATIVE) Urine Barbiturates (NEGATIVE) Ur Phencyclidine (PCP) (NEGATIVE) Urine Amphetamine (NEGATIVE) U Benzodiazepine Level (NEGATIVE) Urine Cocaine (NEGATIVE) Urine Marijuana (THC) (NEGATIVE) Influenza Type A Ag (NEGATIVE) Influenza Type B Ag (NEGATIVE) RSV (PCR) (Negative) SARS-CoV-2 (PCR) (NEGATIVE) Slides for Path Review 10/29/22 10/29/22 10/29/22 Range/Units 16:00 16:15 16:15 WBC 10.7 H (4.0-10.5) x10^3/uL RBC 3.14 L (4.1-5.6) x10^6/uL Hgb 8.9 L (12.5-18.0) g/dL Hct 27.4 L (42-50) % MCV 87.3 (78-100) fL MCH 28.3 (26-32) pg MCHC 32.5 (32-36) g/dL RDW 12.8 (11.5-14.0) % Plt Count 299 (150-450) x10^3/uL MPV 8.0 (7.5-11.0) fL Gran % 85.6 H (36.0-66.0) % Immature Gran % (Auto) 0.6 H (0.00-0.4) % Nucleat RBC Rel Count 0.0 (0.00-0.1) % Eos # (Auto) 0.30 (0-0.5) x10^3/uL Immature Gran # (Auto) 0.06 H (0.00-0.03) x10^3u/L Absolute Lymphs (auto) 0.47 L (1.0-4.6) x10^3/uL Absolute Monos (auto) 0.68 (0.0-1.3) x10^3/uL Absolute Nucleated RBC 0.00 (0.00-0.01) x10^3u/L Lymphocytes % 4.4 L (24.0-44.0) % Monocytes % 6.3 (0.0-12.0) % Eosinophils % 2.8 (0.00-5.0) % Basophils % 0.3 (0.0-0.4) % Absolute Granulocytes 9.18 H (1.4-6.9) x10^3/uL Basophils # 0.03 (0-0.4) x10^3/uL PT (9.4-12.5) SECONDS INR (0.8-3.0) pO2/FiO2 Ratio % VBG pH (7.32-7.42) VBG pCO2 at Pat Temp (42-55) mm/Hg VBG pO2 at Pat Temp (25-40) mm/Hg VBG HCO3 (22-28) meq/L VBG O2 Sat (Jalen) (95-100) VBG Base Excess (-2.0-2.0) VBG Hemoglobin VBG Carboxyhemoglobin (0.0-6.9) % T HGB POC Potassium (3.5-5.1) Sodium 137 (137-145) mmol/L Potassium 4.0 (3.5-5.1) mmol/L Chloride 102 (98-107) mmol/L Carbon Dioxide 21 L (22-30) mmol/L Anion Gap 18.0 H (5-15) MEQ/L BUN 41 H (9-20) mg/dL Creatinine 3.19 H (0.66-1.25) mg/dL Estimated GFR 23.4 ML/MIN Glucose 314 H (74-106) mg/dL POC Glucometer (74 to 106) mg/dL Lactic Acid (0.4-2.0) Calcium 8.6 (8.4-10.2) mg/dL Magnesium 1.8 (1.6-2.3) mg/dL Total Bilirubin 0.40 (0.2-1.3) mg/dL AST 33 (17-59) U/L ALT 23 (0-50) U/L Alkaline Phosphatase 125 (38-126) U/L Troponin I (0.000-0.034) ng/mL Serum Total Protein 7.0 (6.3-8.2) g/dL Albumin 3.6 (3.5-5.0) g/dL Amylase (30-110) U/L Lipase (23-300) U/L Urine Color (Yellow) Urine Appearance (Clear) Urine pH (4.6-8.0) Ur Specific [place] (1.005-1.030) Urine Protein (Negative) Urine Glucose (UA) (Negative) mg/dL Urine Ketones (Negative) Urine Blood (Negative) Urine Nitrite (Negative) Urine Bilirubin (Negative) Urine Urobilinogen (0.2) mg/dL Ur Leukocyte Esterase (Negative) U Hyaline Cast (Auto) (0-2) /LPF Urine Microscopic RBC (0-5) /HPF Urine Microscopic WBC (0-5) /HPF Ur Epithelial Cells (None Seen) /HPF Urine Bacteria (None Seen) /HPF Urine Culture Reflexed (NO) Urine Opiates Level (NEGATIVE) Ur Methadone (NEGATIVE) Urine Barbiturates (NEGATIVE) Ur Phencyclidine (PCP) (NEGATIVE) Urine Amphetamine (NEGATIVE) U Benzodiazepine Level (NEGATIVE) Urine Cocaine (NEGATIVE) Urine Marijuana (THC) (NEGATIVE) Influenza Type A Ag NEGATIVE (NEGATIVE) Influenza Type B Ag NEGATIVE (NEGATIVE) RSV (PCR) NEGATIVE (Negative) SARS-CoV-2 (PCR) NEGATIVE (NEGATIVE) Slides for Path Review YES 10/29/22 10/29/22 10/29/22 Range/Units 16:15 16:15 17:36 WBC (4.0-10.5) x10^3/uL RBC (4.1-5.6) x10^6/uL Hgb (12.5-18.0) g/dL Hct (42-50) % MCV (78-100) fL MCH (26-32) pg MCHC (32-36) g/dL RDW (11.5-14.0) % Plt Count (150-450) x10^3/uL MPV (7.5-11.0) fL Gran % (36.0-66.0) % Immature Gran % (Auto) (0.00-0.4) % Nucleat RBC Rel Count (0.00-0.1) % Eos # (Auto) (0-0.5) x10^3/uL Immature Gran # (Auto) (0.00-0.03) x10^3u/L Absolute Lymphs (auto) (1.0-4.6) x10^3/uL Absolute Monos (auto) (0.0-1.3) x10^3/uL Absolute Nucleated RBC (0.00-0.01) x10^3u/L Lymphocytes % (24.0-44.0) % Monocytes % (0.0-12.0) % Eosinophils % (0.00-5.0) % Basophils % (0.0-0.4) % Absolute Granulocytes (1.4-6.9) x10^3/uL Basophils # (0-0.4) x10^3/uL PT (9.4-12.5) SECONDS INR (0.8-3.0) pO2/FiO2 Ratio % VBG pH (7.32-7.42) VBG pCO2 at Pat Temp (42-55) mm/Hg VBG pO2 at Pat Temp (25-40) mm/Hg VBG HCO3 (22-28) meq/L VBG O2 Sat (Jalen) (95-100) VBG Base Excess (-2.0-2.0) VBG Hemoglobin VBG Carboxyhemoglobin (0.0-6.9) % T HGB POC Potassium (3.5-5.1) Sodium (137-145) mmol/L Potassium (3.5-5.1) mmol/L Chloride (98-107) mmol/L Carbon Dioxide (22-30) mmol/L Anion Gap (5-15) MEQ/L BUN (9-20) mg/dL Creatinine (0.66-1.25) mg/dL Estimated GFR ML/MIN Glucose (74-106) mg/dL POC Glucometer (74 to 106) mg/dL Lactic Acid (0.4-2.0) Calcium (8.4-10.2) mg/dL Magnesium (1.6-2.3) mg/dL Total Bilirubin (0.2-1.3) mg/dL AST (17-59) U/L ALT (0-50) U/L Alkaline Phosphatase (38-126) U/L Troponin I 0.045 H* (0.000-0.034) ng/mL Serum Total Protein (6.3-8.2) g/dL Albumin (3.5-5.0) g/dL Amylase 70 (30-110) U/L Lipase 20 L (23-300) U/L Urine Color Yellow (Yellow) Urine Appearance Clear (Clear) Urine pH 7.0 (4.6-8.0) Ur Specific [place] 1.015 (1.005-1.030) Urine Protein 300 A (Negative) Urine Glucose (UA) >=1000 A (Negative) mg/dL Urine Ketones 15 A (Negative) Urine Blood Small A (Negative) Urine Nitrite Negative (Negative) Urine Bilirubin Negative (Negative) Urine Urobilinogen 0.2 (0.2) mg/dL Ur Leukocyte Esterase Negative (Negative) U Hyaline Cast (Auto) NONE SEEN (0-2) /LPF Urine Microscopic RBC 11-20 A (0-5) /HPF Urine Microscopic WBC 0-2 (0-5) /HPF Ur Epithelial Cells None Seen (None Seen) /HPF Urine Bacteria None Seen (None Seen) /HPF Urine Culture Reflexed YES (NO) Urine Opiates Level (NEGATIVE) Ur Methadone (NEGATIVE) Urine Barbiturates (NEGATIVE) Ur Phencyclidine (PCP) (NEGATIVE) Urine Amphetamine (NEGATIVE) U Benzodiazepine Level (NEGATIVE) Urine Cocaine (NEGATIVE) Urine Marijuana (THC) (NEGATIVE) Influenza Type A Ag (NEGATIVE) Influenza Type B Ag (NEGATIVE) RSV (PCR) (Negative) SARS-CoV-2 (PCR) (NEGATIVE) Slides for Path Review 10/29/22 10/29/22 10/29/22 Range/Units 17:36 19:35 21:17 WBC (4.0-10.5) x10^3/uL RBC (4.1-5.6) x10^6/uL Hgb (12.5-18.0) g/dL Hct (42-50) % MCV (78-100) fL MCH (26-32) pg MCHC (32-36) g/dL RDW (11.5-14.0) % Plt Count (150-450) x10^3/uL MPV (7.5-11.0) fL Gran % (36.0-66.0) % Immature Gran % (Auto) (0.00-0.4) % Nucleat RBC Rel Count (0.00-0.1) % Eos # (Auto) (0-0.5) x10^3/uL Immature Gran # (Auto) (0.00-0.03) x10^3u/L Absolute Lymphs (auto) (1.0-4.6) x10^3/uL Absolute Monos (auto) (0.0-1.3) x10^3/uL Absolute Nucleated RBC (0.00-0.01) x10^3u/L Lymphocytes % (24.0-44.0) % Monocytes % (0.0-12.0) % Eosinophils % (0.00-5.0) % Basophils % (0.0-0.4) % Absolute Granulocytes (1.4-6.9) x10^3/uL Basophils # (0-0.4) x10^3/uL PT (9.4-12.5) SECONDS INR (0.8-3.0) pO2/FiO2 Ratio % VBG pH (7.32-7.42) VBG pCO2 at Pat Temp (42-55) mm/Hg VBG pO2 at Pat Temp (25-40) mm/Hg VBG HCO3 (22-28) meq/L VBG O2 Sat (Jalen) (95-100) VBG Base Excess (-2.0-2.0) VBG Hemoglobin VBG Carboxyhemoglobin (0.0-6.9) % T HGB POC Potassium (3.5-5.1) Sodium (137-145) mmol/L Potassium (3.5-5.1) mmol/L Chloride (98-107) mmol/L Carbon Dioxide (22-30) mmol/L Anion Gap (5-15) MEQ/L BUN (9-20) mg/dL Creatinine (0.66-1.25) mg/dL Estimated GFR ML/MIN Glucose (74-106) mg/dL POC Glucometer 382 H (74 to 106) mg/dL Lactic Acid (0.4-2.0) Calcium (8.4-10.2) mg/dL Magnesium (1.6-2.3) mg/dL Total Bilirubin (0.2-1.3) mg/dL AST (17-59) U/L ALT (0-50) U/L Alkaline Phosphatase (38-126) U/L Troponin I 0.045 H* (0.000-0.034) ng/mL Serum Total Protein (6.3-8.2) g/dL Albumin (3.5-5.0) g/dL Amylase (30-110) U/L Lipase (23-300) U/L Urine Color (Yellow) Urine Appearance (Clear) Urine pH (4.6-8.0) Ur Specific [place] (1.005-1.030) Urine Protein (Negative) Urine Glucose (UA) (Negative) mg/dL Urine Ketones (Negative) Urine Blood (Negative) Urine Nitrite (Negative) Urine Bilirubin (Negative) Urine Urobilinogen (0.2) mg/dL Ur Leukocyte Esterase (Negative) U Hyaline Cast (Auto) (0-2) /LPF Urine Microscopic RBC (0-5) /HPF Urine Microscopic WBC (0-5) /HPF Ur Epithelial Cells (None Seen) /HPF Urine Bacteria (None Seen) /HPF Urine Culture Reflexed (NO) Urine Opiates Level NEGATIVE (NEGATIVE) Ur Methadone NEGATIVE (NEGATIVE) Urine Barbiturates NEGATIVE (NEGATIVE) Ur Phencyclidine (PCP) NEGATIVE (NEGATIVE) Urine Amphetamine NEGATIVE (NEGATIVE) U Benzodiazepine Level NEGATIVE (NEGATIVE) Urine Cocaine NEGATIVE (NEGATIVE) Urine Marijuana (THC) NEGATIVE (NEGATIVE) Influenza Type A Ag (NEGATIVE) Influenza Type B Ag (NEGATIVE) RSV (PCR) (Negative) SARS-CoV-2 (PCR) (NEGATIVE) Slides for Path Review 10/29/22 10/30/22 10/30/22 Range/Units 23:55 05:17 05:30 WBC 9.5 (4.0-10.5) x10^3/uL RBC 2.84 L (4.1-5.6) x10^6/uL Hgb 7.9 L (12.5-18.0) g/dL Hct 24.6 L (42-50) % MCV 86.6 (78-100) fL MCH 27.8 (26-32) pg MCHC 32.1 (32-36) g/dL RDW 13.1 (11.5-14.0) % Plt Count 291 (150-450) x10^3/uL MPV 7.8 (7.5-11.0) fL Gran % 81.9 H (36.0-66.0) % Immature Gran % (Auto) 0.4 (0.00-0.4) % Nucleat RBC Rel Count 0.0 (0.00-0.1) % Eos # (Auto) 0.20 (0-0.5) x10^3/uL Immature Gran # (Auto) 0.04 H (0.00-0.03) x10^3u/L Absolute Lymphs (auto) 0.56 L (1.0-4.6) x10^3/uL Absolute Monos (auto) 0.89 (0.0-1.3) x10^3/uL Absolute Nucleated RBC 0.00 (0.00-0.01) x10^3u/L Lymphocytes % 5.9 L (24.0-44.0) % Monocytes % 9.4 (0.0-12.0) % Eosinophils % 2.1 (0.00-5.0) % Basophils % 0.3 (0.0-0.4) % Absolute Granulocytes 7.76 H (1.4-6.9) x10^3/uL Basophils # 0.03 (0-0.4) x10^3/uL PT (9.4-12.5) SECONDS INR (0.8-3.0) pO2/FiO2 Ratio % VBG pH (7.32-7.42) VBG pCO2 at Pat Temp (42-55) mm/Hg VBG pO2 at Pat Temp (25-40) mm/Hg VBG HCO3 (22-28) meq/L VBG O2 Sat (Jalen) (95-100) VBG Base Excess (-2.0-2.0) VBG Hemoglobin VBG Carboxyhemoglobin (0.0-6.9) % T HGB POC Potassium (3.5-5.1) Sodium (137-145) mmol/L Potassium (3.5-5.1) mmol/L Chloride (98-107) mmol/L Carbon Dioxide (22-30) mmol/L Anion Gap (5-15) MEQ/L BUN (9-20) mg/dL Creatinine (0.66-1.25) mg/dL Estimated GFR ML/MIN Glucose (74-106) mg/dL POC Glucometer 202 H (74 to 106) mg/dL Lactic Acid (0.4-2.0) Calcium (8.4-10.2) mg/dL Magnesium (1.6-2.3) mg/dL Total Bilirubin (0.2-1.3) mg/dL AST (17-59) U/L ALT (0-50) U/L Alkaline Phosphatase (38-126) U/L Troponin I 0.074 H* (0.000-0.034) ng/mL Serum Total Protein (6.3-8.2) g/dL Albumin (3.5-5.0) g/dL Amylase (30-110) U/L Lipase (23-300) U/L Urine Color (Yellow) Urine Appearance (Clear) Urine pH (4.6-8.0) Ur Specific [place] (1.005-1.030) Urine Protein (Negative) Urine Glucose (UA) (Negative) mg/dL Urine Ketones (Negative) Urine Blood (Negative) Urine Nitrite (Negative) Urine Bilirubin (Negative) Urine Urobilinogen (0.2) mg/dL Ur Leukocyte Esterase (Negative) U Hyaline Cast (Auto) (0-2) /LPF Urine Microscopic RBC (0-5) /HPF Urine Microscopic WBC (0-5) /HPF Ur Epithelial Cells (None Seen) /HPF Urine Bacteria (None Seen) /HPF Urine Culture Reflexed (NO) Urine Opiates Level (NEGATIVE) Ur Methadone (NEGATIVE) Urine Barbiturates (NEGATIVE) Ur Phencyclidine (PCP) (NEGATIVE) Urine Amphetamine (NEGATIVE) U Benzodiazepine Level (NEGATIVE) Urine Cocaine (NEGATIVE) Urine Marijuana (THC) (NEGATIVE) Influenza Type A Ag (NEGATIVE) Influenza Type B Ag (NEGATIVE) RSV (PCR) (Negative) SARS-CoV-2 (PCR) (NEGATIVE) Slides for Path Review YES 10/30/22 10/30/22 10/30/22 Range/Units 05:30 05:40 06:28 WBC (4.0-10.5) x10^3/uL RBC (4.1-5.6) x10^6/uL Hgb (12.5-18.0) g/dL Hct (42-50) % MCV (78-100) fL MCH (26-32) pg MCHC (32-36) g/dL RDW (11.5-14.0) % Plt Count (150-450) x10^3/uL MPV (7.5-11.0) fL Gran % (36.0-66.0) % Immature Gran % (Auto) (0.00-0.4) % Nucleat RBC Rel Count (0.00-0.1) % Eos # (Auto) (0-0.5) x10^3/uL Immature Gran # (Auto) (0.00-0.03) x10^3u/L Absolute Lymphs (auto) (1.0-4.6) x10^3/uL Absolute Monos (auto) (0.0-1.3) x10^3/uL Absolute Nucleated RBC (0.00-0.01) x10^3u/L Lymphocytes % (24.0-44.0) % Monocytes % (0.0-12.0) % Eosinophils % (0.00-5.0) % Basophils % (0.0-0.4) % Absolute Granulocytes (1.4-6.9) x10^3/uL Basophils # (0-0.4) x10^3/uL PT 10.3 (9.4-12.5) SECONDS INR 0.94 (0.8-3.0) pO2/FiO2 Ratio 21.0 % VBG pH 7.41 (7.32-7.42) VBG pCO2 at Pat Temp 36 L (42-55) mm/Hg VBG pO2 at Pat Temp 85 H (25-40) mm/Hg VBG HCO3 22.8 (22-28) meq/L VBG O2 Sat (Jalen) 98.6 (95-100) VBG Base Excess -1.6 (-2.0-2.0) VBG Hemoglobin 8.3 VBG Carboxyhemoglobin 3.9 (0.0-6.9) % T HGB POC Potassium 3.7 (3.5-5.1) Sodium 138 (137-145) mmol/L Potassium 3.7 (3.5-5.1) mmol/L Chloride 104 (98-107) mmol/L Carbon Dioxide 25 (22-30) mmol/L Anion Gap 12.1 (5-15) MEQ/L BUN 41 H (9-20) mg/dL Creatinine 3.35 H (0.66-1.25) mg/dL Estimated GFR 22.1 ML/MIN Glucose 219 H (74-106) mg/dL POC Glucometer (74 to 106) mg/dL Lactic Acid (0.4-2.0) Calcium 8.1 L (8.4-10.2) mg/dL Magnesium (1.6-2.3) mg/dL Total Bilirubin 0.40 (0.2-1.3) mg/dL AST 27 (17-59) U/L ALT 19 (0-50) U/L Alkaline Phosphatase 113 (38-126) U/L Troponin I (0.000-0.034) ng/mL Serum Total Protein 6.4 (6.3-8.2) g/dL Albumin 3.3 L (3.5-5.0) g/dL Amylase (30-110) U/L Lipase (23-300) U/L Urine Color (Yellow) Urine Appearance (Clear) Urine pH (4.6-8.0) Ur Specific Mounds (1.005-1.030) Urine Protein (Negative) Urine Glucose (UA) (Negative) mg/dL Urine Ketones (Negative) Urine Blood (Negative) Urine Nitrite (Negative) Urine Bilirubin (Negative) Urine Urobilinogen (0.2) mg/dL Ur Leukocyte Esterase (Negative) U Hyaline Cast (Auto) (0-2) /LPF Urine Microscopic RBC (0-5) /HPF Urine Microscopic WBC (0-5) /HPF Ur Epithelial Cells (None Seen) /HPF Urine Bacteria (None Seen) /HPF Urine Culture Reflexed (NO) Urine Opiates Level (NEGATIVE) Ur Methadone (NEGATIVE) Urine Barbiturates (NEGATIVE) Ur Phencyclidine (PCP) (NEGATIVE) Urine Amphetamine (NEGATIVE) U Benzodiazepine Level (NEGATIVE) Urine Cocaine (NEGATIVE) Urine Marijuana (THC) (NEGATIVE) Influenza Type A Ag (NEGATIVE) Influenza Type B Ag (NEGATIVE) RSV (PCR) (Negative) SARS-CoV-2 (PCR) (NEGATIVE) Slides for Path Review 10/30/22 Range/Units 07:02 WBC (4.0-10.5) x10^3/uL RBC (4.1-5.6) x10^6/uL Hgb (12.5-18.0) g/dL Hct (42-50) % MCV (78-100) fL MCH (26-32) pg MCHC (32-36) g/dL RDW (11.5-14.0) % Plt Count (150-450) x10^3/uL MPV (7.5-11.0) fL Gran % (36.0-66.0) % Immature Gran % (Auto) (0.00-0.4) % Nucleat RBC Rel Count (0.00-0.1) % Eos # (Auto) (0-0.5) x10^3/uL Immature Gran # (Auto) (0.00-0.03) x10^3u/L Absolute Lymphs (auto) (1.0-4.6) x10^3/uL Absolute Monos (auto) (0.0-1.3) x10^3/uL Absolute Nucleated RBC (0.00-0.01) x10^3u/L Lymphocytes % (24.0-44.0) % Monocytes % (0.0-12.0) % Eosinophils % (0.00-5.0) % Basophils % (0.0-0.4) % Absolute Granulocytes (1.4-6.9) x10^3/uL Basophils # (0-0.4) x10^3/uL PT (9.4-12.5) SECONDS INR (0.8-3.0) pO2/FiO2 Ratio % VBG pH (7.32-7.42) VBG pCO2 at Pat Temp (42-55) mm/Hg VBG pO2 at Pat Temp (25-40) mm/Hg VBG HCO3 (22-28) meq/L VBG O2 Sat (Jalen) (95-100) VBG Base Excess (-2.0-2.0) VBG Hemoglobin VBG Carboxyhemoglobin (0.0-6.9) % T HGB POC Potassium (3.5-5.1) Sodium (137-145) mmol/L Potassium (3.5-5.1) mmol/L Chloride (98-107) mmol/L Carbon Dioxide (22-30) mmol/L Anion Gap (5-15) MEQ/L BUN (9-20) mg/dL Creatinine (0.66-1.25) mg/dL Estimated GFR ML/MIN Glucose (74-106) mg/dL POC Glucometer 127 H (74 to 106) mg/dL Lactic Acid (0.4-2.0) Calcium (8.4-10.2) mg/dL Magnesium (1.6-2.3) mg/dL Total Bilirubin (0.2-1.3) mg/dL AST (17-59) U/L ALT (0-50) U/L Alkaline Phosphatase (38-126) U/L Troponin I (0.000-0.034) ng/mL Serum Total Protein (6.3-8.2) g/dL Albumin (3.5-5.0) g/dL Amylase (30-110) U/L Lipase (23-300) U/L Urine Color (Yellow) Urine Appearance (Clear) Urine pH (4.6-8.0) Ur Specific Mounds (1.005-1.030) Urine Protein (Negative) Urine Glucose (UA) (Negative) mg/dL Urine Ketones (Negative) Urine Blood (Negative) Urine Nitrite (Negative) Urine Bilirubin (Negative) Urine Urobilinogen (0.2) mg/dL Ur Leukocyte Esterase (Negative) U Hyaline Cast (Auto) (0-2) /LPF Urine Microscopic RBC (0-5) /HPF Urine Microscopic WBC (0-5) /HPF Ur Epithelial Cells (None Seen) /HPF Urine Bacteria (None Seen) /HPF Urine Culture Reflexed (NO) Urine Opiates Level (NEGATIVE) Ur Methadone (NEGATIVE) Urine Barbiturates (NEGATIVE) Ur Phencyclidine (PCP) (NEGATIVE) Urine Amphetamine (NEGATIVE) U Benzodiazepine Level (NEGATIVE) Urine Cocaine (NEGATIVE) Urine Marijuana (THC) (NEGATIVE) Influenza Type A Ag (NEGATIVE) Influenza Type B Ag (NEGATIVE) RSV (PCR) (Negative) SARS-CoV-2 (PCR) (NEGATIVE) Slides for Path Review Microbiology 10/29/22 17:36 Urine Culture - Preliminary Clean Catch Midstream NO GROWTH TO DATE Accuchecks Date 10/30/22 Date 10/29/22 Date 10/29/22 Time 07:25 Time 15:45 - Radiology Impressions Radiology Exams & Impressions: Radiology Procedures Category Date Time Status CHEST 1 VIEW (PORTABLE) Stat Exams 10/29/22 15:42 Completed CHEST 1 VIEW (PORTABLE) Stat Exams 10/30/22 08:37 Taken - Other Procedures and Tests Respiratory Therapy 10/30/22 08:37 EKG STAT Assessment/Plan (1) Abdominal pain Current Visit: Yes Status: Acute Qualifiers: Abdominal location: generalized Qualified Code(s): R10.84 - Generalized abdominal pain Assessment & Plan: with vomiting. Pt was placed back on zosyn at admission to cover intra- abdominal infection. Code(s): R10.9 - UNSPECIFIED ABDOMINAL PAIN (2) Chest pain Current Visit: Yes Status: Acute Qualifiers: Chest pain type: unspecified Qualified Code(s): R07.9 - Chest pain, unspecified Assessment & Plan: will r/o AL. If troponin continues to be elevated, will transfer pt to . Code(s): R07.9 - CHEST PAIN, UNSPECIFIED (3) Pneumonia Current Visit: Yes Status: Acute Qualifiers: Pneumonia type: due to unspecified organism Laterality: bilateral Lung location: unspecified part of lung Qualified Code(s): J18.9 - Pneumonia, unspecified organism Code(s): J18.9 - PNEUMONIA, UNSPECIFIED ORGANISM (4) Chronic renal insufficiency Current Visit: Yes Status: Chronic Qualifiers: Chronic kidney disease stage: stage 4 (severe) Code(s): N18.9 - CHRONIC KIDNEY DISEASE, UNSPECIFIED (5) DM (diabetes mellitus), type 1, uncontrolled Current Visit: No Status: Chronic Qualifiers: Code(s): [id number] - (6) Hypertension Current Visit: No Status: Chronic Onset Date: ~05/30/18 Qualifiers: Hypertension type: renovascular hypertension Qualified Code(s): I15.0 - Renovascular hypertension Code(s): I10 - ESSENTIAL (PRIMARY) HYPERTENSION (7) Elevated troponin Current Visit: No Status: Resolved Code(s): R77.8 - OTHER SPECIFIED ABNORMALITIES OF PLASMA PROTEINS (8) Nausea Current Visit: No Status: Chronic Code(s): R11.0 - NAUSEA (9) DVT prophylaxis Current Visit: No Status: Acute Code(s): Z29.9 - ENCOUNTER FOR PROPHYLACTIC MEASURES, UNSPECIFIED
[2022-10-30 10:51] VITALS: BP 174/92; PULSE 94; O2SAT 96
[2022-10-30] MEDS ORDERED: NITRO-BID 2% UD PACKETS TOP SCH (11:00)
[2022-10-30] MEDS ORDERED: ENOXAPARIN SODIUM SQ SCH (11:00)
[2022-10-30] MEDS ORDERED: Phenergan 25 MG INJ*** 12.5 MG in Sodium Chloride 0.9% 100 ML IV SCH (12:00)
[2022-10-30] MEDS ORDERED: Piperacillin/Tazobactam 2.25 GM 2.25 GM in Sodium Chloride 100ML MINI-BAG PLUS 100 ML IV SCH (12:00)
[2022-10-30] MEDS ORDERED: Phenergan 25 MG INJ*** 25 MG in Sodium Chloride 0.9% 100 ML IV SCH (15:00)
== END 2022-10-30 11:50 | disposition short-term general hospital (02) ==
LOC: ED 15:34 → MED SURG 18:22
PROVIDERS: ADMIT Family Medicine; ATTEND Family Medicine
DX: R10.84 Generalized abdominal pain (principal); R07.9 Chest pain, unspecified; J18.9 Pneumonia, unspecified organism; E10.22 Type 1 diabetes mellitus with diabetic chronic kidney disease; E10.65 Type 1 diabetes mellitus with hyperglycemia; I12.9 Hypertensive chronic kidney disease with stage 1 through stage 4 chronic kidney disease, or unspecified chronic kidney disease; N18.9 Chronic kidney disease, unspecified; R77.8 Other specified abnormalities of plasma proteins; R11.0 Nausea; D64.9 Anemia, unspecified; Z29.9 Encounter for prophylactic measures, unspecified; Z79.899 Other long term (current) drug therapy; Z20.828 Contact with and (suspected) exposure to other viral communicable diseases
CPT/HCPCS: 0241U; 36000; 36415; 71045; 80053; 80307; 81001; 82150; 82805; 82947; 83605; 83690; 83735; 84484; 85025; 85610; 87040; 87086; 93005; 96360; 96361; 96374; 96375; 96376; 99285; 93268; G0378; J0360; J1170; J1650; J1817; J2405; J2550; A9270-GY

== ENCOUNTER 2022-11-29 14:53 | Emergency (ER) | payer OTHER ==
--- NOTE | 2022-11-29 14:59 | ERPHSYRPT ---
- History of Present Illness Time Seen by Provider: 11/29/22 14:59 Source: patient, family Exam Limitations: no limitations Physician History: This is a 37-year-old white female patient of Dr. Hans Wolf who presents with bilateral below the knee, ankles feet and hands swelling for the last month. The patient and family members feel that the patient's swelling has increased. Patient has associated mild shortness of breath and cough. The cough is nonproductive. Patient denies chest pain. He has no abdominal pain. He has not had a fever. Severity of Pain-Max: mild Severity of Pain-Current: mild Lower Extremities Pain: leg: bilateral (Below the knee) Modifying Factors: Improves With: nothing Allergies/Adverse Reactions: No Known Drug Allergies Allergy (Verified 11/29/22 14:58) Home Medications: Amlodipine Besylate 5 mg [Norvasc 5 mg] 1 tab PO DAILY 11/29/22 [History] Aspirin EC 81 mg [Ecotrin 81 mg] 1 tab PO DAILY 11/29/22 [History] Atorvastatin Calcium [Lipitor 40Mg] 1 tab PO DAILY 11/29/22 [History] Clonidine HCl 0.1 mg [Clonidine 0.1 mg Tablet] 0.2 mg PO BID 11/29/22 [H istory] Ferrous Sulfate 325 mg [Feosol 325 mg] 1 tab PO BID 11/29/22 [History] Insulin Glargine [Lantus Insulin] 15 unit SQ AMINSULIN 11/29/22 [History] Hx Tetanus, Diphtheria Vaccination/Date Given: Yes Hx Influenza Vaccination/Date Given: No Hx Pneumococcal Vaccination/Date Given: Yes (10/01/2016) Travel Risk - International Travel Have you traveled outside of the country in past 3 weeks: No - Coronavirus Screening Are you exhibiting any of the following symptoms?: No Close contact with a COVID-19 positive Pt in past 14-21 Days: No - Vaccine Status Have you recieved a Covid-19 vaccination: No - Review of Systems Constitutional: No Symptoms Eyes: No Symptoms Ears, Nose, & Throat: No Symptoms Respiratory: Cough, Dyspnea Cardiac: No Symptoms Abdominal/Gastrointestinal: No Symptoms Genitourinary Symptoms: No Symptoms Musculoskeletal: No Symptoms Skin: Other (Bilateral below the knee, ankle and feet skin swelling. Below the knee venous stasis disease.) Neurological: No Symptoms Psychological: No Symptoms Endocrine: No Symptoms Hematologic/Lymphatic: No Symptoms Immunological/Allergic: No Symptoms All Other Systems: Reviewed and Negative - Past Medical History Pertinent Past Medical History: Yes Neurological History: No Pertinent History ENT History: No Pertinent History Cardiac History: High Cholesterol, Hypertension Respiratory History: No Pertinent History Endocrine Medical History: Diabetes Type I Musculoskeletal History: No Pertinent History GI Medical History: No Pertinent History History: Renal Disease Psycho-Social History: Anxiety, Depression Male Reproductive Disorders: No Pertinent History Other Medical History: prior drug use - Past Surgical History Past Surgical History: No Neuro Surgical History: No Pertinent History Cardiac: No Pertinent History Respiratory: No Pertinent History Gastrointestinal: No Pertinent History Genitourinary: No Pertinent History Musculoskeletal: No Pertinent History Male Surgical History: No Pertinent History Other Surgical History: . - Social History Smoking Status: Former smoker How long have you smoked: 1 year Exposure to second hand smoke: No Drug Use: none Patient Lives Alone: No Significant Family History: no pertinent family hx - Nursing Vital Signs Nursing Vital Signs: Initial Vital Signs Temperature 98.0 F 11/29/22 15:06 Pulse Rate 75 11/29/22 15:06 Respiratory Rate 18 11/29/22 15:06 Blood Pressure 148/80 11/29/22 15:06 O2 Sat by Pulse Oximetry 98 11/29/22 15:06 Pain Scale Pain Intensity 3 - Physical Exam General Appearance: no apparent distress, alert, anxiety Eyes, Ears, Nose, Throat Exam: normal ENT inspection, moist mucous membranes Neck Exam: normal inspection, non-tender, supple, full range of motion Cardiovascular/Respiratory Exam: chest non-tender, normal breath sounds, regular rate/rhythm, heart sounds normal Gastrointestinal/Abdominal Exam: non-tender, soft, no organomegaly, No tenderness Back Exam: normal inspection, normal range of motion, No CVA tenderness, No vertebral tenderness Hips Exam: bilateral: non-tender, normal inspection, normal range of motion, no evidence of injury Legs Exam: bilateral leg: normal range of motion, no evidence of injury, soft tissue tenderness, swelling, other (Mild chronic venous stasis disease with redness bilaterally) Knees Exam: bilateral knee: non-tender, normal inspection, normal range of motion, no evidence of injury Ankle Exam: bilateral ankle: normal range of motion, no evidence of injury, soft tissue tenderness, swelling Foot Exam: bilateral foot: non-tender, normal range of motion, no evidence of injury, swelling (Bilaterally) Neuro/Tendon Exam: sensory deficit (Patient has a chronic history of peripheral neuropathy) Skin Exam: other (Bilateral below the knee chronic venous stasis disease. Chr onic swelling) SpO2 Interpretation: normal O2 Delivery: Room Air - Course Nursing assessment & vital signs reviewed: Yes EKG Interpreted by Me: RATE (75), Sinus Rhythm, NORMAL AXIS, NORMAL INTERVALS, NORMAL QRS, NORMAL ST-T, Other (No acute ischemic changes on today's twelve-lead EKG.) Ordered Tests: Active Orders 24 hr Category Date Time Status Acid Bleacher STAT Care 11/29/22 15:25 Active EKG-ER Only STAT Care 11/29/22 15:25 Active IV Insertion STAT Care 11/29/22 15:25 Active CHEST 1 VIEW (PORTABLE) Stat Exams 11/29/22 15:30 Completed VENOUS BILATERAL EXTREMITY [US] Stat Exams 11/29/22 15:07 Completed CBC W DIFF Stat Lab 11/29/22 15:46 Completed CMP Stat Lab 11/29/22 15:46 Completed Lactic Acid Stat Lab 11/29/22 16:07 Completed NT PRO BNPII Stat Lab 11/29/22 15:46 Completed Medication Summary Discontinued Medications Generic Name Dose Route Start Last Admin Trade Name Kirkq PRN Reason Stop Dose Admin Furosemide 40 mg 11/29/22 18:28 Furosemide 40 Mg/4 Ml Vial IV 11/29/22 18:29 STAT ONE Furosemide Confirm 11/29/22 18:45 Furosemide 40 Mg/4 Ml Vial Administered 11/29/22 18:46 Dose 40 mg .ROUTE .STK-MED ONE Ceftriaxone Sodium/Dextrose 1 g in 50 mls @ 100 mls/hr 11/29/22 17:33 11/29/22 18:47 Rocephin 1 Gm-D5w 50 Ml Bag IV 11/29/22 18:02 Infused STAT STA Infusion Ceftriaxone Sodium/Dextrose Confirm 11/29/22 18:15 Rocephin 1 Gm-D5w 50 Ml Bag Administered 11/29/22 18:16 Dose 1 g in 50 mls @ ud IV .STK-MED ONE Lab/Rad Data: Laboratory Result Diagrams 11/29/22 15:46 04/13/23 15:46 Laboratory Results 11/29/22 11/29/22 11/29/22 Range/Units 16:07 15:46 15:46 WBC (4.0-10.5) x10^3/uL RBC (4.1-5.6) x10^6/uL Hgb (12.5-18.0) g/dL Hct (42-50) % MCV (78-100) fL MCH (26-32) pg MCHC (32-36) g/dL RDW (11.5-14.0) % Plt Count (150-450) x10^3/uL MPV (7.5-11.0) fL Gran % (36.0-66.0) % Immature Gran % (Auto) (0.00-0.4) % Nucleat RBC Rel Count (0.00-0.1) % Eos # (Auto) (0-0.5) x10^3/uL Immature Gran # (Auto) (0.00-0.03) x10^3u/L Absolute Lymphs (auto) (1.0-4.6) x10^3/uL Absolute Monos (auto) (0.0-1.3) x10^3/uL Absolute Nucleated RBC (0.00-0.01) x10^3u/L Lymphocytes % (24.0-44.0) % Monocytes % (0.0-12.0) % Eosinophils % (0.00-5.0) % Basophils % (0.0-0.4) % Absolute Granulocytes (1.4-6.9) x10^3/uL Basophils # (0-0.4) x10^3/uL Sodium (137-145) mmol/L Potassium (3.5-5.1) mmol/L Chloride (98-107) mmol/L Carbon Dioxide (22-30) mmol/L Anion Gap (5-15) MEQ/L BUN (9-20) mg/dL Creatinine (0.66-1.25) mg/dL Estimated GFR ML/MIN Glucose (74-106) mg/dL Lactic Acid 1.4 (0.4-2.0) Calcium (8.4-10.2) mg/dL Total Bilirubin (0.2-1.3) mg/dL AST (17-59) U/L ALT (0-50) U/L Alkaline Phosphatase (38-126) U/L NT-Pro-B Natriuret Pep 3200 (<300) pg/mL Serum Total Protein (6.3-8.2) g/dL Albumin (3.5-5.0) g/dL Influenza Type A Ag NEGATIVE (NEGATIVE) Influenza Type B Ag NEGATIVE (NEGATIVE) RSV (PCR) NEGATIVE (NEGATIVE) SARS-CoV-2 (PCR) NEGATIVE (NEGATIVE) Slides for Path Review 11/29/22 11/29/22 Range/Units 15:46 15:46 WBC 5.7 (4.0-10.5) x10^3/uL RBC 2.82 L (4.1-5.6) x10^6/uL Hgb 7.5 L (12.5-18.0) g/dL Hct 23.8 L (42-50) % MCV 84.4 (78-100) fL MCH 26.6 (26-32) pg MCHC 31.5 L (32-36) g/dL RDW 12.8 (11.5-14.0) % Plt Count 331 (150-450) x10^3/uL MPV 8.4 (7.5-11.0) fL Gran % 62.9 (36.0-66.0) % Immature Gran % (Auto) 0.3 (0.00-0.4) % Nucleat RBC Rel Count 0.0 (0.00-0.1) % Eos # (Auto) 0.52 H (0-0.5) x10^3/uL Immature Gran # (Auto) 0.02 (0.00-0.03) x10^3u/L Absolute Lymphs (auto) 0.56 L (1.0-4.6) x10^3/uL Absolute Monos (auto) 0.99 (0.0-1.3) x10^3/uL Absolute Nucleated RBC 0.00 (0.00-0.01) x10^3u/L Lymphocytes % 9.8 L (24.0-44.0) % Monocytes % 17.2 H (0.0-12.0) % Eosinophils % 9.1 H (0.00-5.0) % Basophils % 0.7 (0.0-0.4) % Absolute Granulocytes 3.61 (1.4-6.9) x10^3/uL Basophils # 0.04 (0-0.4) x10^3/uL Sodium 133 L (137-145) mmol/L Potassium 5.3 H (3.5-5.1) mmol/L Chloride 101 (98-107) mmol/L Carbon Dioxide 22 (22-30) mmol/L Anion Gap 15.1 H (5-15) MEQ/L BUN 30 H (9-20) mg/dL Creatinine 3.45 H (0.66-1.25) mg/dL Estimated GFR 21.4 ML/MIN Glucose 304 H (74-106) mg/dL Lactic Acid (0.4-2.0) Calcium 8.9 (8.4-10.2) mg/dL Total Bilirubin 0.30 (0.2-1.3) mg/dL AST 27 (17-59) U/L ALT 28 (0-50) U/L Alkaline Phosphatase 158 H (38-126) U/L NT-Pro-B Natriuret Pep (<300) pg/mL Serum Total Protein 6.2 L (6.3-8.2) g/dL Albumin 3.3 L (3.5-5.0) g/dL Influenza Type A Ag (NEGATIVE) Influenza Type B Ag (NEGATIVE) RSV (PCR) (NEGATIVE) SARS-CoV-2 (PCR) (NEGATIVE) Slides for Path Review YES - Progress Progress: improved, re-examined Progress Note: 11/29/22 17:50 Chest x-ray impression was read by the radiologist and I reviewed that impression. The chest x-ray demonstrates new subtle bibasilar hazy groundglass airspace disease without consolidation or large effusion present 11/29/22 18:19 I reviewed this patient with Dr. Quiroga, emergency room physician at [facility] in [facility], in order to transfer the patient. We had a discussion regarding the patient's anemia which is likely secondary to his chronic renal disease, increase in his BNP with associated mild increase in shortness of breath but significant increase per patient report, of swelling in his lower extremities, hyperglycemia and the pneumonia this presents. Dr. Quiroga felt this patient's condition is relatively stable for him. I do not disagree. I will have a discussion with the patient and his mother and I will provide the patient with an extra dose of diuretic. Patient is already received an intravenous dose of Rocephin and I will send a prescription of cefdinir to his pharmacy. Patient will follow-up with his primary care provider tomorrow by phone, to make arrangements for further evaluation management. With the exception of the pneumonia which is new, the patient's vital signs and his medical issues are relatively stable. 11/29/22 18:22 Counseled pt/family regarding: lab results, diagnosis, rad results Medical Desision Making - Independent Historian Additional History obtained from: Mother (Additional history provided by the patient's mother) - Discussion of managment Reviewed:: Test results Agreed on:: Treatment plan, need for follow-up - Diagnostic Testing Diagnostic test were ordered, analyzed, and reviewed by me: Yes Radiological Interpretation: Reviewed by me, Teleradiologist Report - Risk of complications The pt has a mod risk of morbidity or mortality based on: Need for prescription drug management - Departure Departure Disposition: Home Clinical Impression: Chronic renal disease, Hyperglycemia, Elevated brain natriuretic peptide (BNP) level, Pneumonia, Chronic anemia Condition: Stable Critical Care Time: No Referrals: VALENTINA STARKS [Primary Care Provider] - Follow up/PCP as directed Additional Instructions: Take all your medication as prescribed. Call your online advertising manager tomorrow morning to make arrangements for follow-up appointment in the next 3 days. Call your primary care doctor tomorrow to make arrangements to move your appointment up to early next week if possible. Prescriptions: Cefdinir 300 mg PO BID #14 cap
[2022-11-29 15:47] LABS: Absolute Neutrophil Ct (ANC) 3.61 x10^3/uL (1.4-6.9); BASOPHIL % 0.7 % (0.0-0.4); Basophil (Absolute #) 0.04 x10^3/uL (0-0.4); Eosinophil % 9.1 % (0.00-5.0); Eosinophil (Absolute #) 0.52 x10^3/uL (0-0.5); Hematocrit 23.8 % (42-50); Hemoglobin 7.5 g/dL (12.5-18.0); IMMATURE GRAN # 0.02 x10^3u/L (0.00-0.03); IMMATURE GRAN % 0.3 % (0.00-0.4); Lymphocyte (Absolute #) 0.56 x10^3/uL (1.0-4.6); Lymphocytes % 9.8 % (24.0-44.0); Mean Cell Volume 84.4 fL (78-100); Mean Corpuscular Hemoglobin 26.6 pg (26-32); Mean Corpuscular Hgb Concent. 31.5 g/dL (32-36); Mean Platelet Volume 8.4 fL (7.5-11.0); Monocyte (Absolute #) 0.99 x10^3/uL (0.0-1.3); Monocytes % 17.2 % (0.0-12.0); Neutrophil % 62.9 % (36.0-66.0); Platelet Count 331 x10^3/uL (150-450); Red Blood Count 2.82 x10^6/uL (4.1-5.6); Red Cell Distribution Width 12.8 % (11.5-14.0); White Blood Count 5.7 x10^3/uL (4.0-10.5)
[2022-11-29 16:08] LABS: ALBUMIN 3.3 g/dL (3.5-5.0); ANION GAP 15.1 MEQ/L (5-15); BILIRUBIN,TOTAL 0.3 mg/dL (0.2-1.3); Calcium 8.9 mg/dL (8.4-10.2); Creatinine 1 3.45 mg/dL (0.66-1.25); EST GLOMERULAR FILTRATION RATE 21.4 ML/MIN; Potassium 5.3 mmol/L (3.5-5.1); Total Protein 6.2 g/dL (6.3-8.2)
--- NOTE | 2022-11-29 16:19 | XRAY ---
Indication: Cough and short of breath. Comparison: October 30, 2022 Portable chest demonstrates new subtle bibasilar hazy groundglass airspace disease without consolidation/large effusion. Remaining heart and bony thorax normal.
--- NOTE | 2022-11-29 16:21 | XRAY ---
Indication: Bilateral leg swelling. Two-dimensional sonogram and color Doppler imaging of the major venous vessels of left and right leg performed. Comparison: None No thrombus seen in the examined deep venous vessels of the left and right leg including greater saphenous vein. Veins demonstrate normal compressibility. Venous waveforms are normal with and without augmentation. There are a few benign-appearing bilateral inguinal lymph nodes, largest on the left measuring 1.6 x 3.2 cm. Impression: Left and right legs negative for DVT. Incidental benign-appearing bilateral inguinal lymph nodes.
[2022-11-29 16:47] LABS: INFLUENZA A NEGATIVE (NEGATIVE); INFLUENZA B NEGATIVE (NEGATIVE); RESPIRATORY SYNCTIAL VIRUS NEGATIVE (NEGATIVE); SARS-CoV-2 Xpert Express NEGATIVE (NEGATIVE)
[2022-11-29 17:22] LABS: Slide Review 1 YES
[2022-11-29 17:30] VITALS: O2SAT 95
[2022-11-29] MEDS ORDERED: ROCEPHIN 1 Gm-D5w 50 ml Bag** 1 G/50 ML IVPB IV STA (17:33)
[2022-11-29] MEDS ORDERED: ROCEPHIN 1 Gm-D5w 50 ml Bag** 1 G/50 ML IVPB IV ONE (18:15)
[2022-11-29 18:27] VITALS: BP 146/77; PULSE 69
[2022-11-29] MEDS ORDERED: Lasix 40 MG/4 ML IV ONE (18:28)
[2022-11-29] MEDS ORDERED: Lasix 40 MG/4 ML ONE (18:45)
== END 2022-11-29 19:08 | disposition home or self-care (01) ==
LOC: ED 14:53
DX: J18.9 Pneumonia, unspecified organism (principal); I12.9 Hypertensive chronic kidney disease with stage 1 through stage 4 chronic kidney disease, or unspecified chronic kidney disease; E10.22 Type 1 diabetes mellitus with diabetic chronic kidney disease; N18.9 Chronic kidney disease, unspecified; E10.65 Type 1 diabetes mellitus with hyperglycemia; R79.89 Other specified abnormal findings of blood chemistry; D64.9 Anemia, unspecified; R22.43 Localized swelling, mass and lump, lower limb, bilateral; R06.02 Shortness of breath; R05.9 Cough, unspecified; Z79.899 Other long term (current) drug therapy; Z28.310 Unvaccinated for COVID-19
CPT/HCPCS: 0241U; 36000; 36415; 71045; 80053; 83605; 83880; 85025; 93005; 93041; 93970; 96365; 96374; 99284; J0696; J1940

== ENCOUNTER 2022-12-13 13:08 | Observation (INO) | payer OTHER ==
--- NOTE | 2022-12-13 13:16 | ERPHSYRPT ---
- History of Present Illness Time Seen by Provider: 12/13/22 13:16 Historian: patient Exam Limitations: no limitations Physician History: This is a 37-year-old white male patient who has a history of hypertension, hyperlipidemia, and insulin-dependent diabetes. He also supposedly had a mild myocardial infarction in the past. He presents with 2-day history of dizziness, lightheadedness and weakness that began yesterday and was worse today with associated vomiting. Patient has had multiple evaluations in this emergency department as well as admission into the hospital for treatment of diabetic ketoacidosis. Patient currently denies chest pain and he denies shortness of breath. He does state that he has been compliant with his medication. His primary care physician is Dr. Hans Wolf. Timing/Duration: yesterday Activities at Onset: none Quality: fullness Abdominal Pain Onset Location: generalized abdomen Pain Radiation: no radiation Severity of Pain-Max: mild Severity of Pain-Current: mild Modifying Factors: Improves With: vomiting Associated Symptoms: loss of appetite, nausea, vomiting, weakness, No chest pain, No shortness of breath Previous symptoms: same symptoms as today, recently seen, recently treated Allergies/Adverse Reactions: No Known Drug Allergies Allergy (Verified 11/29/22 14:58) Home Medications: Amlodipine Besylate 5 mg [Norvasc 5 mg] 1 tab PO DAILY 11/29/22 [History] Aspirin EC 81 mg [Ecotrin 81 mg] 1 tab PO DAILY 11/29/22 [History] Atorvastatin Calcium [Lipitor 40Mg] 1 tab PO DAILY 11/29/22 [History] Clonidine HCl 0.1 mg [Clonidine 0.1 mg Tablet] 0.2 mg PO BID 11/29/22 [History] Ferrous Sulfate 325 mg [Feosol 325 mg] 1 tab PO BID 11/29/22 [History] Insulin Glargine [Lantus Insulin] 15 unit SQ AMINSULIN 11/29/22 [History] Hx Tetanus, Diphtheria Vaccination/Date Given: Yes Hx Influenza Vaccination/Date Given: No Hx Pneumococcal Vaccination/Date Given: Yes (10/01/2016) Travel Risk - International Travel Have you traveled outside of the country in past 3 weeks: No - Coronavirus Screening Are you exhibiting any of the following symptoms?: Yes Symptoms: Vomiting/Diarrhea Close contact with a COVID-19 positive Pt in past 14-21 Days: No - Vaccine Status Have you recieved a Covid-19 vaccination: No - Review of Systems Constitutional: Weakness Eyes: No Symptoms Ears, Nose, & Throat: No Symptoms Respiratory: No Symptoms Cardiac: No Symptoms Abdominal/Gastrointestinal: Abdominal Pain (Mild diffuse), Nausea, Vomiting Genitourinary Symptoms: No Symptoms Musculoskeletal: No Symptoms Skin: No Symptoms Neurological: No Symptoms Psychological: No Symptoms Endocrine: No Symptoms Hematologic/Lymphatic: No Symptoms Immunological/Allergic: No Symptoms All Other Systems: Reviewed and Negative - Past Medical History Pertinent Past Medical History: Yes Neurological History: No Pertinent History ENT History: No Pertinent History Cardiac History: High Cholesterol, Hypertension Respiratory History: No Pertinent History Endocrine Medical History: Diabetes Type I Musculoskeletal History: No Pertinent History GI Medical History: No Pertinent History History: Renal Disease Psycho-Social History: Anxiety, Depression Male Reproductive Disorders: No Pertinent History Other Medical History: prior drug use - Past Surgical History Past Surgical History: No Neuro Surgical History: No Pertinent History Cardiac: No Pertinent History Respiratory: No Pertinent History Gastrointestinal: No Pertinent History Genitourinary: No Pertinent History Musculoskeletal: No Pertinent History Male Surgical History: No Pertinent History Other Surgical History: . - Social History Smoking Status: Former smoker How long have you smoked: 1 year Exposure to second hand smoke: No Drug Use: none Patient Lives Alone: No Significant Family History: no pertinent family hx - Nursing Vital Signs Nursing Vital Signs: Initial Vital Signs Temperature 96.7 F 12/13/22 13:16 Pulse Rate 94 H 12/13/22 13:16 Respiratory Rate 16 12/13/22 13:16 Blood Pressure 159/109 12/13/22 13:16 O2 Sat by Pulse Oximetry 99 12/13/22 13:16 Pain Scale Pain Intensity 7 - Physical Exam General Appearance: mild distress, alert, anxiety Eye Exam: PERRL/EOMI, eyes nml inspection Ears, Nose, Throat Exam: dry mucous membranes Neck Exam: normal inspection, non-tender, supple, full range of motion Respiratory Exam: normal breath sounds, lungs clear, airway intact, No chest tenderness, No respiratory distress Cardiovascular Exam: regular rate/rhythm, normal heart sounds, normal peripheral pulses Gastrointestinal/Abdomen Exam: soft, normal bowel sounds, tenderness (Mild diffuse), No guarding Rectal Exam: not done Back Exam: normal inspection, normal range of motion, No CVA tenderness, No vertebral tenderness Extremity Exam: normal inspection, normal range of motion, pelvis stable Neurologic Exam: alert, oriented x 3, cooperative, runner on II-XII nml as tested, normal mood/affect, nml cerebellar function, nml station & gait, sensation nml Skin Exam: normal color, warm, dry Lymphatic Exam: No adenopathy SpO2 Interpretation: normal O2 Delivery: Room Air - Course Nursing assessment & vital signs reviewed: Yes Ordered Tests: Active Orders 24 hr Category Date Time Status IV Insertion STAT Care 12/13/22 13:17 Active POCT Glucose Check STAT Care 12/13/22 13:34 Active AMYLASE Stat Lab 12/13/22 13:33 Completed CBC W DIFF Stat Lab 12/13/22 13:33 Completed CMP Stat Lab 12/13/22 13:33 Completed LIPASE Stat Lab 12/13/22 13:33 Completed Lactic Acid Stat Lab 12/13/22 13:35 Completed POCT GLUCOSE Stat Lab 12/13/22 13:25 Completed UA W/RFX UR CULTURE Stat Lab 12/13/22 14:47 Completed Urine Triage Profile Stat Lab 12/13/22 14:47 Completed Transfer Order Routine Transfer 12/13/22 Ordered Medication Summary Discontinued Medications Generic Name Dose Route Start Last Admin Trade Name Kelsie PRN Reason Stop Dose Admin Sodium Chloride 1,000 mls @ 999 mls/hr 12/13/22 13:17 12/13/22 14:22 Sodium Chloride 0.9% 1000 Ml IV 12/13/22 14:17 Infused .Q1H1M STA Infusion Sodium Chloride Confirm 12/13/22 13:20 Sodium Chloride 0.9% 1000 Ml Administered 12/13/22 13:21 Dose 1,000 mls @ ud .ROUTE .STK-MED ONE Sodium Chloride 1,000 mls @ 999 mls/hr 12/13/22 14:40 12/13/22 15:24 Sodium Chloride 0.9% 1000 Ml IV 12/13/22 15:40 999 mls/hr .Q1H1M STA Administration Sodium Chloride Confirm 12/13/22 15:23 Sodium Chloride 0.9% 1000 Ml Administered 12/13/22 15:24 Dose 1,000 mls @ ud .ROUTE .STK-MED ONE Labetalol HCl 10 mg 12/13/22 15:18 12/13/22 15:24 Labetalol Hcl 20 Mg/4 Ml Disp.Syringe IV 12/13/22 15:19 10 mg STAT ONE Administration Labetalol HCl Confirm 12/13/22 15:23 Labetalol Hcl 20 Mg/4 Ml Disp.Syringe Administered 12/13/22 15:24 Dose 20 mg IV .STK-MED ONE Ondansetron HCl 4 mg 12/13/22 13:17 12/13/22 13:22 Ondansetron Hcl 4 Mg/2 Ml Vial IV 12/13/22 13:18 4 mg STAT ONE Administration Ondansetron HCl Confirm 12/13/22 13:20 Ondansetron Hcl 4 Mg/2 Ml Vial Administered 12/13/22 13:21 Dose 4 mg .ROUTE .STK-MED ONE Prochlorperazine Edisylate 5 mg 12/13/22 14:41 12/13/22 14:43 Prochlorperazine Edisylate 10 Mg/2 Ml Vial IV 12/13/22 14:42 5 mg STAT ONE Administration Prochlorperazine Edisylate Confirm 12/13/22 14:42 Prochlorperazine Edisylate 10 Mg/2 Ml Vial Administered 12/13/22 14:43 Dose 10 mg .ROUTE .STK-MED ONE Lab/Rad Data: Laboratory Result Diagrams 12/13/22 13:33 12/13/22 13:33 Laboratory Results 12/13/22 12/13/22 12/13/22 Range/Units 14:47 14:47 14:45 WBC (4.0-10.5) x10^3/uL RBC (4.1-5.6) x10^6/uL Hgb (12.5-18.0) g/dL Hct (42-50) % MCV (78-100) fL MCH (26-32) pg MCHC (32-36) g/dL RDW (11.5-14.0) % Plt Count (150-450) x10^3/uL MPV (7.5-11.0) fL Gran % (36.0-66.0) % Immature Gran % (Auto) (0.00-0.4) % Nucleat RBC Rel Count (0.00-0.1) % Eos # (Auto) (0-0.5) x10^3/uL Immature Gran # (Auto) (0.00-0.03) x10^3u/L Absolute Lymphs (auto) (1.0-4.6) x10^3/uL Absolute Monos (auto) (0.0-1.3) x10^3/uL Absolute Nucleated RBC (0.00-0.01) x10^3u/L Lymphocytes % (24.0-44.0) % Monocytes % (0.0-12.0) % Eosinophils % (0.00-5.0) % Basophils % (0.0-0.4) % Absolute Granulocytes (1.4-6.9) x10^3/uL Basophils # (0-0.4) x10^3/uL Sodium (137-145) mmol/L Potassium (3.5-5.1) mmol/L Chloride (98-107) mmol/L Carbon Dioxide (22-30) mmol/L Anion Gap (5-15) MEQ/L BUN (9-20) mg/dL Creatinine (0.66-1.25) mg/dL Estimated GFR ML/MIN Glucose (74-106) mg/dL POC Glucometer (74 to 106) mg/dL Lactic Acid (0.4-2.0) Calcium (8.4-10.2) mg/dL Total Bilirubin (0.2-1.3) mg/dL AST (17-59) U/L ALT (0-50) U/L Alkaline Phosphatase (38-126) U/L Serum Total Protein (6.3-8.2) g/dL Albumin (3.5-5.0) g/dL Amylase (30-110) U/L Lipase (23-300) U/L Urine Color Yellow (Yellow) Urine Appearance Clear (Clear) Urine pH 6.0 (4.6-8.0) Ur Specific [place] 1.015 (1.005-1.030) Urine Protein 300 A (Negative) Urine Glucose (UA) 500 A (Negative) mg/dL Urine Ketones Trace A (Negative) Urine Blood Moderate A (Negative) Urine Nitrite Negative (Negative) Urine Bilirubin Negative (Negative) Urine Urobilinogen 0.2 (0.2) mg/dL Ur Leukocyte Esterase Negative (Negative) U Hyaline Cast (Auto) 3-5 A (0-2) /LPF Urine Microscopic RBC 11-20 A (0-5) /HPF Urine Microscopic WBC 0-2 (0-5) /HPF Ur Epithelial Cells None Seen (None Seen) /HPF Urine Bacteria None Seen (None Seen) /HPF Urine Culture Reflexed NO (NO) Urine Opiates Level NEGATIVE (NEGATIVE) Ur Methadone NEGATIVE (NEGATIVE) Urine Barbiturates NEGATIVE (NEGATIVE) Ur Phencyclidine (PCP) NEGATIVE (NEGATIVE) Urine Amphetamine NEGATIVE (NEGATIVE) U Benzodiazepine Level NEGATIVE (NEGATIVE) Urine Cocaine NEGATIVE (NEGATIVE) Urine Marijuana (THC) NEGATIVE (NEGATIVE) Influenza Type A Ag NEGATIVE (NEGATIVE) Influenza Type B Ag NEGATIVE (NEGATIVE) RSV (PCR) NEGATIVE (NEGATIVE) SARS-CoV-2 (PCR) NEGATIVE (NEGATIVE) Slides for Path Review 12/13/22 12/13/22 12/13/22 Range/Units 13:35 13:33 13:33 WBC 9.3 (4.0-10.5) x10^3/uL RBC 4.17 (4.1-5.6) x10^6/uL Hgb 10.6 L (12.5-18.0) g/dL Hct 33.6 L (42-50) % MCV 80.6 (78-100) fL MCH 25.4 L (26-32) pg MCHC 31.5 L (32-36) g/dL RDW 13.2 (11.5-14.0) % Plt Count 309 (150-450) x10^3/uL MPV 8.1 (7.5-11.0) fL Gran % 80.2 H (36.0-66.0) % Immature Gran % (Auto) 0.2 (0.00-0.4) % Nucleat RBC Rel Count 0.0 (0.00-0.1) % Eos # (Auto) 0.48 (0-0.5) x10^3/uL Immature Gran # (Auto) 0.02 (0.00-0.03) x10^3u/L Absolute Lymphs (auto) 0.58 L (1.0-4.6) x10^3/uL Absolute Monos (auto) 0.70 (0.0-1.3) x10^3/uL Absolute Nucleated RBC 0.00 (0.00-0.01) x10^3u/L Lymphocytes % 6.3 L (24.0-44.0) % Monocytes % 7.5 (0.0-12.0) % Eosinophils % 5.2 H (0.00-5.0) % Basophils % 0.6 (0.0-0.4) % Absolute Granulocytes 7.44 H (1.4-6.9) x10^3/uL Basophils # 0.06 (0-0.4) x10^3/uL Sodium 140 (137-145) mmol/L Potassium 4.1 (3.5-5.1) mmol/L Chloride 99 (98-107) mmol/L Carbon Dioxide 28 (22-30) mmol/L Anion Gap 17.4 H (5-15) MEQ/L BUN 66 H (9-20) mg/dL Creatinine 4.76 H (0.66-1.25) mg/dL Estimated GFR 14.8 ML/MIN Glucose 273 H (74-106) mg/dL POC Glucometer (74 to 106) mg/dL Lactic Acid 1.2 (0.4-2.0) Calcium 10.6 H (8.4-10.2) mg/dL Total Bilirubin 0.70 (0.2-1.3) mg/dL AST 43 (17-59) U/L ALT 34 (0-50) U/L Alkaline Phosphatase 156 H (38-126) U/L Serum Total Protein 8.8 H (6.3-8.2) g/dL Albumin 4.6 (3.5-5.0) g/dL Amylase 124 H (30-110) U/L Lipase 29 (23-300) U/L Urine Color (Yellow) Urine Appearance (Clear) Urine pH (4.6-8.0) Ur Specific [place] (1.005-1.030) Urine Protein (Negative) Urine Glucose (UA) (Negative) mg/dL Urine Ketones (Negative) Urine Blood (Negative) Urine Nitrite (Negative) Urine Bilirubin (Negative) Urine Urobilinogen (0.2) mg/dL Ur Leukocyte Esterase (Negative) U Hyaline Cast (Auto) (0-2) /LPF Urine Microscopic RBC (0-5) /HPF Urine Microscopic WBC (0-5) /HPF Ur Epithelial Cells (None Seen) /HPF Urine Bacteria (None Seen) /HPF Urine Culture Reflexed (NO) Urine Opiates Level (NEGATIVE) Ur Methadone (NEGATIVE) Urine Barbiturates (NEGATIVE) Ur Phencyclidine (PCP) (NEGATIVE) Urine Amphetamine (NEGATIVE) U Benzodiazepine Level (NEGATIVE) Urine Cocaine (NEGATIVE) Urine Marijuana (THC) (NEGATIVE) Influenza Type A Ag (NEGATIVE) Influenza Type B Ag (NEGATIVE) RSV (PCR) (NEGATIVE) SARS-CoV-2 (PCR) (NEGATIVE) Slides for Path Review YES 12/13/22 Range/Units 13:25 WBC (4.0-10.5) x10^3/uL RBC (4.1-5.6) x10^6/uL Hgb (12.5-18.0) g/dL Hct (42-50) % MCV (78-100) fL MCH (26-32) pg MCHC (32-36) g/dL RDW (11.5-14.0) % Plt Count (150-450) x10^3/uL MPV (7.5-11.0) fL Gran % (36.0-66.0) % Immature Gran % (Auto) (0.00-0.4) % Nucleat RBC Rel Count (0.00-0.1) % Eos # (Auto) (0-0.5) x10^3/uL Immature Gran # (Auto) (0.00-0.03) x10^3u/L Absolute Lymphs (auto) (1.0-4.6) x10^3/uL Absolute Monos (auto) (0.0-1.3) x10^3/uL Absolute Nucleated RBC (0.00-0.01) x10^3u/L Lymphocytes % (24.0-44.0) % Monocytes % (0.0-12.0) % Eosinophils % (0.00-5.0) % Basophils % (0.0-0.4) % Absolute Granulocytes (1.4-6.9) x10^3/uL Basophils # (0-0.4) x10^3/uL Sodium (137-145) mmol/L Potassium (3.5-5.1) mmol/L Chloride (98-107) mmol/L Carbon Dioxide (22-30) mmol/L Anion Gap (5-15) MEQ/L BUN (9-20) mg/dL Creatinine (0.66-1.25) mg/dL Estimated GFR ML/MIN Glucose (74-106) mg/dL POC Glucometer 264 H (74 to 106) mg/dL Lactic Acid (0.4-2.0) Calcium (8.4-10.2) mg/dL Total Bilirubin (0.2-1.3) mg/dL AST (17-59) U/L ALT (0-50) U/L Alkaline Phosphatase (38-126) U/L Serum Total Protein (6.3-8.2) g/dL Albumin (3.5-5.0) g/dL Amylase (30-110) U/L Lipase (23-300) U/L Urine Color (Yellow) Urine Appearance (Clear) Urine pH (4.6-8.0) Ur Specific [place] (1.005-1.030) Urine Protein (Negative) Urine Glucose (UA) (Negative) mg/dL Urine Ketones (Negative) Urine Blood (Negative) Urine Nitrite (Negative) Urine Bilirubin (Negative) Urine Urobilinogen (0.2) mg/dL Ur Leukocyte Esterase (Negative) U Hyaline Cast (Auto) (0-2) /LPF Urine Microscopic RBC (0-5) /HPF Urine Microscopic WBC (0-5) /HPF Ur Epithelial Cells (None Seen) /HPF Urine Bacteria (None Seen) /HPF Urine Culture Reflexed (NO) Urine Opiates Level (NEGATIVE) Ur Methadone (NEGATIVE) Urine Barbiturates (NEGATIVE) Ur Phencyclidine (PCP) (NEGATIVE) Urine Amphetamine (NEGATIVE) U Benzodiazepine Level (NEGATIVE) Urine Cocaine (NEGATIVE) Urine Marijuana (THC) (NEGATIVE) Influenza Type A Ag (NEGATIVE) Influenza Type B Ag (NEGATIVE) RSV (PCR) (NEGATIVE) SARS-CoV-2 (PCR) (NEGATIVE) Slides for Path Review - Progress Progress: improved, re-examined Progress Note: 12/13/22 16:05 This patient's medical issue is of high complexity. The level of complexity and the work-up performed is based on the review of the patient's past medical history, medication allergies, medication list, history of present illness, physical exam findings. The patient needs an intravenous line placed, intravenous normal saline solution infusion, Zofran intravenous infusion, Compazine intravenous infusion, CBC, CMP, lactic acid, urinalysis, amylase and lipase. The results of this work-up was reviewed by me. Patient has DKA, dehydration, vomiting and acute on chronic renal failure. I spoke with Dr. Meehan who is covering for Dr. Hans Wolf. We formulated a plan to admit this patient into the hospital on a telemetry bed. Patient will not require insulin drip. We will put him sliding scale insulin and provide him with antiemetics and infusion of normal saline with repeat labs in the morning. Discussed with : Elham Counseled pt/family regarding: lab results, diagnosis Medical Desision Making - External Record(s) Reviewed Records reviewed as a part of evaluation & management: Inpatient, Discharge Summary - Discussion of managment Care discussed with:: PCP (Dr. Meehan is covering for Dr. Hans Wolf, the patient's primary care physician.) Reviewed:: Test results, Need for additional workup Agreed on:: Treatment plan, decision to admit - Diagnostic Testing Diagnostic test were ordered, analyzed, and reviewed by me: Yes - Risk of complications The pt has a high risk of morbidity or mortality based on: Decision regarding hospitilization or escalation of hosp level of care - Departure Departure Disposition: In-patient Admission Clinical Impression: DKA (diabetic ketoacidosis), Vomiting, Dehydration, Acute on chronic renal failure Condition: Fair Critical Care Time: Yes Critical Care Time(excluding separately billable procedures): Critical 30-74 mins (45) Referrals: VALENTINA STARKS [Primary Care Provider] - Follow up/PCP as directed
[2022-12-13] MEDS ORDERED: Zofran 4 MG/2 ML VIAL IV ONE (13:17)
[2022-12-13] MEDS ORDERED: Sodium Chloride 0.9% 1000 ML 1,000 ML IV STA ×2 (13:17→14:40)
[2022-12-13] MEDS ORDERED: Zofran 4 MG/2 ML VIAL ONE (13:20)
[2022-12-13] MEDS ORDERED: Sodium Chloride 0.9% 1000 ML 1,000 ML ONE ×2 (13:20→15:23)
[2022-12-13 13:40] LABS: Absolute Neutrophil Ct (ANC) 7.44 x10^3/uL (1.4-6.9); BASOPHIL % 0.6 % (0.0-0.4); Basophil (Absolute #) 0.06 x10^3/uL (0-0.4); Eosinophil % 5.2 % (0.00-5.0); Eosinophil (Absolute #) 0.48 x10^3/uL (0-0.5); Hematocrit 33.6 % (42-50); Hemoglobin 10.6 g/dL (12.5-18.0); IMMATURE GRAN # 0.02 x10^3u/L (0.00-0.03); IMMATURE GRAN % 0.2 % (0.00-0.4); Lymphocyte (Absolute #) 0.58 x10^3/uL (1.0-4.6); Lymphocytes % 6.3 % (24.0-44.0); Mean Cell Volume 80.6 fL (78-100); Mean Corpuscular Hemoglobin 25.4 pg (26-32); Mean Corpuscular Hgb Concent. 31.5 g/dL (32-36); Mean Platelet Volume 8.1 fL (7.5-11.0); Monocytes % 7.5 % (0.0-12.0); Neutrophil % 80.2 % (36.0-66.0); Platelet Count 309 x10^3/uL (150-450); Red Blood Count 4.17 x10^6/uL (4.1-5.6); Red Cell Distribution Width 13.2 % (11.5-14.0); White Blood Count 9.3 x10^3/uL (4.0-10.5)
[2022-12-13 13:55] LABS: ALBUMIN 4.6 g/dL (3.5-5.0); ANION GAP 17.4 MEQ/L (5-15); BILIRUBIN,TOTAL 0.7 mg/dL (0.2-1.3); Calcium 10.6 mg/dL (8.4-10.2); Creatinine 1 4.76 mg/dL (0.66-1.25); EST GLOMERULAR FILTRATION RATE 14.8 ML/MIN; Potassium 4.1 mmol/L (3.5-5.1); Total Protein 8.8 g/dL (6.3-8.2)
[2022-12-13 14:15] LABS: Slide Review 1 YES
[2022-12-13] MEDS ORDERED: Compazine 10 MG/2 ML IV ONE (14:41)
[2022-12-13] MEDS ORDERED: Compazine 10 MG/2 ML ONE (14:42)
[2022-12-13] MEDS ORDERED: TRANDATE 20 MG/4 ML SYRINGE IV ONE ×4 (15:18→16:17)
[2022-12-13 15:19] LABS: Appearance Clear (Clear); Bacteria None Seen /HPF (None Seen); Bilirubin Negative (Negative); Blood Moderate (Negative); Epithelial Cells None Seen /HPF (None Seen); Glucose, Urine 500 mg/dL (Negative); Ketones Trace (Negative); Leukocyte Esterase Negative (Negative); Nitrite Negative (Negative); Protein,Urine Dip 300 (Negative); Specific Gravity 1.015 (1.005-1.030); Urobilinogen 0.2 mg/dL (0.2); WBC 0-2 /HPF (0-5)
[2022-12-13 15:21] LABS: ADD URINE CULTURE? NO (NO)
[2022-12-13 15:32] LABS: Amphetamine,Urine NEGATIVE (NEGATIVE); Barbiturate,Urine NEGATIVE (NEGATIVE); Benzodiazepine,Urine NEGATIVE (NEGATIVE); Cocaine,Urine NEGATIVE (NEGATIVE); Methadone,Urine NEGATIVE (NEGATIVE); Opiate,Urine NEGATIVE (NEGATIVE); PCP,Urine NEGATIVE (NEGATIVE); THC,Urine NEGATIVE (NEGATIVE)
[2022-12-13 15:34] LABS: INFLUENZA A NEGATIVE (NEGATIVE); INFLUENZA B NEGATIVE (NEGATIVE); RESPIRATORY SYNCTIAL VIRUS NEGATIVE (NEGATIVE); SARS-CoV-2 Xpert Express NEGATIVE (NEGATIVE)
[2022-12-13] MEDS ORDERED: TYLENOL 325 MG PO PRN (16:47)
[2022-12-13] MEDS ORDERED: Zofran 4 MG/2 ML VIAL IV PRN (16:47)
[2022-12-13] MEDS ORDERED: PROTONIX 40 MG IV IV SCH (16:47)
[2022-12-13] MEDS ORDERED: ENALAPRILAT 2.5 MG INJECTION IV SCH (17:30)
[2022-12-13] MEDS ORDERED: Hydromorphone 1 mg/ml Injection IV PRN (17:30)
[2022-12-13] MEDS ORDERED: Hydromorphone 1 mg/ml Injection ONE (17:33)
[2022-12-13] MEDS: Hydromorphone 1 mg/ml Injection IV PRN (17:41)
[2022-12-13 19:13] LABS: ANION GAP 21.6 MEQ/L (5-15); Calcium 9.4 mg/dL (8.4-10.2); Creatinine 1 4.44 mg/dL (0.66-1.25); Potassium 4.4 mmol/L (3.5-5.1)
[2022-12-13] MEDS ORDERED: PHARMACY DOSING REQUEST MC ONE (19:55)
[2022-12-13] MEDS: TRANDATE 100 MG/20 ML MDV FOR DRIP*** 200 MG in Sodium Chloride 0.9% 150 ML 150 ML IV PRN ×2 (20:41→22:46)
[2022-12-13] MEDS ORDERED: MYXREDLIN 100 UNIT/100 ML BAG 100 UNIT/100 ML PLAST..BAG IV PRN ×2 (21:27→21:28)
[2022-12-13 22:04] LABS: ANION GAP 23.6 MEQ/L (5-15); Calcium 9.2 mg/dL (8.4-10.2); Creatinine 1 4.35 mg/dL (0.66-1.25); EST GLOMERULAR FILTRATION RATE 16.4 ML/MIN; Potassium 4.7 mmol/L (3.5-5.1)
[2022-12-13] MEDS: Compazine 10 MG/2 ML IV PRN (22:21)
[2022-12-13] MEDS ORDERED: FEOSOL 325 MG PO SCH (22:30)
[2022-12-13] MEDS ORDERED: Coreg PO SCH (22:30)
[2022-12-13] MEDS ORDERED: Sodium Chloride 0.9% 150 ML 150 ML IV ONE ×2 (22:37→23:45)
[2022-12-13 22:45] LABS: MAGNESIUM 2.1 mg/dL (1.6-2.3); PHOSPHOROUS 6.6 mg/dL (2.5-4.5)
[2022-12-14] MEDS: TRANDATE 100 MG/20 ML MDV FOR DRIP*** 200 MG in Sodium Chloride 0.9% 150 ML 150 ML IV PRN (00:46)
[2022-12-14] MEDS: ENALAPRILAT 2.5 MG INJECTION IV SCH ×4 (00:57→18:02)
[2022-12-14] MEDS ORDERED: TRANDATE 20 MG/4 ML SYRINGE IV PRN (02:23)
[2022-12-14] MEDS ORDERED: D5W/0.45NS W/ 20mEq KCl 1000 ML 1,000 ML IV ONE (02:36)
[2022-12-14 03:00] LABS: ANION GAP 16.4 MEQ/L (5-15); Calcium 8.8 mg/dL (8.4-10.2); Creatinine 1 4.47 mg/dL (0.66-1.25); EST GLOMERULAR FILTRATION RATE 15.9 ML/MIN; Potassium 3.9 mmol/L (3.5-5.1)
[2022-12-14] MEDS ORDERED: D5W/0.45NS W/ 20mEq KCl 1000 ML 1,000 ML IV SCH (03:00)
[2022-12-14] MEDS: Compazine 10 MG/2 ML IV PRN ×4 (03:31→20:47)
[2022-12-14 05:11] LABS: A-aADO2 4; ABG HEMOGLOBIN 9.4; ABG POTASSIUM 3.8 (3.5-5.1); ABG SITE RIGHT RADIAL; ALLEN TEST OK? YES; ARTERIAL BLD GAS O2 SATURATION 99.3 % (95-100); ARTERIAL BLOOD GAS BASE EXCESS 2.4 (-2.0-2.0); ARTERIAL BLOOD GAS FIO2 21 %; ARTERIAL BLOOD GAS PCO2 37 mmHg (35-45); ARTERIAL BLOOD GAS PO2 99 mmHg (75-100); ARTERIAL BLOOD GAS pH 7.46 (7.35-7.45); HCO3- 26.3 (22-28); HGB O2 SAT 94.8 g/dF (94-100); Methhemoglobin 0.5 % (1.4-1.5); paO2 pAO1 0.96
[2022-12-14 05:35] LABS: Absolute Neutrophil Ct (ANC) 7.37 x10^3/uL (1.4-6.9); BASOPHIL % 0.2 % (0.0-0.4); Basophil (Absolute #) 0.02 x10^3/uL (0-0.4); Eosinophil % 0.2 % (0.00-5.0); Eosinophil (Absolute #) 0.02 x10^3/uL (0-0.5); Hematocrit 27.6 % (42-50); Hemoglobin 8.7 g/dL (12.5-18.0); IMMATURE GRAN # 0.03 x10^3u/L (0.00-0.03); IMMATURE GRAN % 0.3 % (0.00-0.4); Lymphocyte (Absolute #) 0.63 x10^3/uL (1.0-4.6); Lymphocytes % 6.8 % (24.0-44.0); Mean Cell Volume 79.1 fL (78-100); Mean Corpuscular Hemoglobin 24.9 pg (26-32); Mean Corpuscular Hgb Concent. 31.5 g/dL (32-36); Mean Platelet Volume 8.4 fL (7.5-11.0); Monocyte (Absolute #) 1.13 x10^3/uL (0.0-1.3); Monocytes % 12.3 % (0.0-12.0); Neutrophil % 80.2 % (36.0-66.0); Platelet Count 290 x10^3/uL (150-450); Red Blood Count 3.49 x10^6/uL (4.1-5.6); Red Cell Distribution Width 13.5 % (11.5-14.0); White Blood Count 9.2 x10^3/uL (4.0-10.5)
[2022-12-14 05:55] LABS: ALBUMIN 3.9 g/dL (3.5-5.0); ANION GAP 15.7 MEQ/L (5-15); BILIRUBIN,TOTAL 0.6 mg/dL (0.2-1.3); Calcium 8.7 mg/dL (8.4-10.2); Creatinine 1 4.45 mg/dL (0.66-1.25); Potassium 3.8 mmol/L (3.5-5.1); Total Protein 7.3 g/dL (6.3-8.2)
[2022-12-14] MEDS ORDERED: ZOFRAN ODT 4 MG PO PRN (07:21)
[2022-12-14] MEDS: Sodium Chloride 0.9% 1000 ML 1,000 ML IV SCH ×3 (07:31→18:18)
[2022-12-14] MEDS ORDERED: Lantus Insulin SQ SCH (08:00)
[2022-12-14] MEDS ORDERED: NON-FORMULARY ITEM (Insulin Lispro [Admelog Solostar] 100 UNIT/ML Insuln.Pen) SQ SCH (08:00)
[2022-12-14] MEDS: Lantus Insulin SQ SCH (08:17)
--- NOTE | 2022-12-14 08:19 | PCM.HP ---
History of Present Illness - Chief Complaint Chief Complaint: DKA, VOMITING, UNCONTROLLED HTN History of Present Illness: is a 37 year old male with recurrent admission, admitted with vomiting and dka, on insulin drip, he is very sleepy and can awaken to answer questions but a very poor historian and keeps going back to sleep, patient compliance limits history, he is vague and unable to describe his insulin regimen which points to suspected noncompliance in my opinion. - Review of Systems All Other Systems: Unable due to condition Medications & Allergies Home Medications: Home Medication List Insulin Lispro [Admelog Solostar] 10 - 15 unit SQ TIDWMEALS #3 07/01/22 [Rx Confirmed 12/14/22] Ondansetron ODT 4 MG [Zofran Odt 4 mg] 4 mg PO Q6H PRN PRN #10 tablet 10/17/22 [Rx Confirmed 12/14/22] Aspirin EC 81 mg [Ecotrin 81 mg] 1 tab PO DAILY 11/29/22 [History Confirmed 12/14/22] Atorvastatin Calcium [Lipitor 40Mg] 40 mg PO DAILY 11/29/22 [History Confirmed 12/14/22] Ferrous Sulfate 325 mg [Feosol 325 mg] 1 tab PO BID 11/29/22 [History Confirmed 12/14/22] Insulin Glargine [Lantus Insulin] 20 unit SQ AMINSULIN 11/29/22 [History Confirmed 12/14/22] Amlodipine Besylate 10 mg PO DAILY 12/14/22 [History Confirmed 12/14/22] Bumetanide 2 mg PO DAILY 12/14/22 [History Confirmed 12/14/22] Carvedilol [Coreg] 25 mg PO BID 12/14/22 [History Confirmed 12/14/22] Clonidine HCl 0.1 mg [Clonidine 0.1 mg Tablet] 0.3 mg PO TID 12/14/22 [History Confirmed 12/14/22] Clonidine [Catapres-Tts 3] 1 each TD DAILY 12/14/22 [History Confirmed 12/14/22] Metolazone 2.5 mg [Zaroxolyn 2.5 MG] 2.5 mg PO DAILY 12/14/22 [History Confirmed 12/14/22] Allergies/Adverse Reactions: Allergies Allergy/AdvReac Type Severity Reaction Status Date / Time No Known Drug Allergies Allergy Verified 11/29/22 14:58 - Past Medical History Past Medical History: Yes Neurological History: No Pertinent History ENT History: No Pertinent History Cardiac History: High Cholesterol, Hypertension Respiratory History: No Pertinent History Endocrine Medical History: Diabetes Type I Musculoskelatal History: No Pertinent History GI Medical History: No Pertinent History History: Renal Disease Pyscho-Social History: Anxiety, Depression Male Reproductive Disorders: No Pertinent History Comment: prior drug use - Past Surgical History Past Surgical History: No Neuro Surgical History: No Pertinent History Cardiac History: No Pertinent History Respiratory Surgery: No Pertinent History GI Surgical History: No Pertinent History Genitourinary Surgical Hx: No Pertinent History Musculskeletal Surgical Hx: No Pertinent History Male Surgical History: No Pertinent History Other Surgical History: . - Social History Smoking Status: Never smoker How long have you smoked: 1 year Exposure to second hand smoke: No Alcohol: None Drug Use: marijuana Significant Family History: no pertinent family hx - Physical Exam Vital Signs: Vital Signs - 24 hr Temp Pulse Resp BP Pulse Ox 12/14/22 08:00 83 12/14/22 07:00 89 16 168/88 98 12/14/22 06:00 98.2 F 90 21 122/62 98 12/14/22 05:00 98.2 F 82 15 102/57 12/14/22 04:00 98.2 F 82 15 102/57 12/14/22 02:52 98.2 F 81 17 114/66 12/14/22 02:00 98.2 F 84 14 117/66 12/14/22 01:00 84 14 118/65 12/14/22 00:00 86 16 122/68 12/13/22 23:30 87 18 132/73 12/13/22 23:15 87 16 151/85 12/13/22 23:00 88 16 167/88 12/13/22 22:31 90 19 176/98 12/13/22 22:16 88 20 187/98 12/13/22 22:00 23 191/105 12/13/22 21:54 88 18 193/108 12/13/22 21:45 25 H 196/105 12/13/22 21:30 88 16 146/108 12/13/22 21:15 98.2 F 88 21 185/94 12/13/22 21:04 95 H 25 H 201/118 12/13/22 21:00 92 H 21 193/103 12/13/22 20:58 101 H 19 173/107 12/13/22 20:56 101 H 18 196/109 12/13/22 20:50 97 H 21 173/107 12/13/22 20:47 98.2 F 90 19 176/98 12/13/22 20:45 97 H 21 195/116 12/13/22 20:40 101 H 18 196/109 12/13/22 18:00 98.2 F 90 20 231/109 93 L 12/13/22 17:00 98.2 F 90 20 231/109 93 L 12/13/22 16:54 98.1 F 90 18 231/109 93 L 12/13/22 16:00 84 18 185/116 96 12/13/22 15:07 96 H 20 211/113 97 12/13/22 14:22 90 203/106 97 12/13/22 13:16 96.7 F 94 H 16 159/109 99 General Appearance: no apparent distress Neurologic Exam: intoxicated appearance Respiratory Exam: normal breath sounds, lungs clear, No respiratory distress Cardiovascular Exam: regular rate/rhythm, normal heart sounds, normal peripheral pulses Gastrointestinal/Abdomen Exam: soft, normal bowel sounds, No tenderness, No mass Skin Exam: normal color, warm, dry, No rash Results - Labs Lab/Micro Results: Lab Results-Last 24 Hours 12/13/22 12/13/22 12/13/22 Range/Units 13:25 13:33 13:33 WBC 9.3 (4.0-10.5) x10^3/uL RBC 4.17 (4.1-5.6) x10^6/uL Hgb 10.6 L (12.5-18.0) g/dL Hct 33.6 L (42-50) % MCV 80.6 (78-100) fL MCH 25.4 L (26-32) pg MCHC 31.5 L (32-36) g/dL RDW 13.2 (11.5-14.0) % Plt Count 309 (150-450) x10^3/uL MPV 8.1 (7.5-11.0) fL Gran % 80.2 H (36.0-66.0) % Immature Gran % (Auto) 0.2 (0.00-0.4) % Nucleat RBC Rel Count 0.0 (0.00-0.1) % Eos # (Auto) 0.48 (0-0.5) x10^3/uL Immature Gran # (Auto) 0.02 (0.00-0.03) x10^3u/L Absolute Lymphs (auto) 0.58 L (1.0-4.6) x10^3/uL Absolute Monos (auto) 0.70 (0.0-1.3) x10^3/uL Absolute Nucleated RBC 0.00 (0.00-0.01) x10^3u/L Lymphocytes % 6.3 L (24.0-44.0) % Monocytes % 7.5 (0.0-12.0) % Eosinophils % 5.2 H (0.00-5.0) % Basophils % 0.6 (0.0-0.4) % Absolute Granulocytes 7.44 H (1.4-6.9) x10^3/uL Basophils # 0.06 (0-0.4) x10^3/uL Puncture Site pCO2 (35-45) mmHg pO2 (75-100) mmHg Base Excess (-2.0-2.0) O2 Saturation (94-100) g/dF ABG pH (7.35-7.45) ABG HCO3 (22-28) ABG O2 Sat (Measured) (95-100) % Arnaldo Test A-a Gradient a/A Ratio Hemoglobin Carboxyhemoglobin (0.0-6.9) % THgb Methemoglobin (1.4-1.5) % Temperature C POC O2 Flow Rate % Sodium 140 (137-145) mmol/L Potassium 4.1 (3.5-5.1) mmol/L Chloride 99 (98-107) mmol/L Carbon Dioxide 28 (22-30) mmol/L Anion Gap 17.4 H (5-15) MEQ/L BUN 66 H (9-20) mg/dL Creatinine 4.76 H (0.66-1.25) mg/dL Estimated GFR 14.8 ML/MIN Glucose 273 H (74-106) mg/dL POC Glucometer 264 H (74 to 106) mg/dL Lactic Acid (0.4-2.0) Calcium 10.6 H (8.4-10.2) mg/dL Phosphorus (2.5-4.5) mg/dL Magnesium (1.6-2.3) mg/dL Total Bilirubin 0.70 (0.2-1.3) mg/dL AST 43 (17-59) U/L ALT 34 (0-50) U/L Alkaline Phosphatase 156 H (38-126) U/L Serum Total Protein 8.8 H (6.3-8.2) g/dL Albumin 4.6 (3.5-5.0) g/dL Amylase 124 H (30-110) U/L Lipase 29 (23-300) U/L Urine Color (Yellow) Urine Appearance (Clear) Urine pH (4.6-8.0) Ur Specific [place] (1.005-1.030) Urine Protein (Negative) Urine Glucose (UA) (Negative) mg/dL Urine Ketones (Negative) Urine Blood (Negative) Urine Nitrite (Negative) Urine Bilirubin (Negative) Urine Urobilinogen (0.2) mg/dL Ur Leukocyte Esterase (Negative) U Hyaline Cast (Auto) (0-2) /LPF Urine Microscopic RBC (0-5) /HPF Urine Microscopic WBC (0-5) /HPF Ur Epithelial Cells (None Seen) /HPF Urine Bacteria (None Seen) /HPF Urine Culture Reflexed (NO) Urine Opiates Level (NEGATIVE) Ur Methadone (NEGATIVE) Urine Barbiturates (NEGATIVE) Ur Phencyclidine (PCP) (NEGATIVE) Urine Amphetamine (NEGATIVE) U Benzodiazepine Level (NEGATIVE) Urine Cocaine (NEGATIVE) Urine Marijuana (THC) (NEGATIVE) Influenza Type A Ag (NEGATIVE) Influenza Type B Ag (NEGATIVE) RSV (PCR) (NEGATIVE) SARS-CoV-2 (PCR) (NEGATIVE) Slides for Path Review YES 12/13/22 12/13/22 12/13/22 Range/Units 13:35 14:45 14:47 WBC (4.0-10.5) x10^3/uL RBC (4.1-5.6) x10^6/uL Hgb (12.5-18.0) g/dL Hct (42-50) % MCV (78-100) fL MCH (26-32) pg MCHC (32-36) g/dL RDW (11.5-14.0) % Plt Count (150-450) x10^3/uL MPV (7.5-11.0) fL Gran % (36.0-66.0) % Immature Gran % (Auto) (0.00-0.4) % Nucleat RBC Rel Count (0.00-0.1) % Eos # (Auto) (0-0.5) x10^3/uL Immature Gran # (Auto) (0.00-0.03) x10^3u/L Absolute Lymphs (auto) (1.0-4.6) x10^3/uL Absolute Monos (auto) (0.0-1.3) x10^3/uL Absolute Nucleated RBC (0.00-0.01) x10^3u/L Lymphocytes % (24.0-44.0) % Monocytes % (0.0-12.0) % Eosinophils % (0.00-5.0) % Basophils % (0.0-0.4) % Absolute Granulocytes (1.4-6.9) x10^3/uL Basophils # (0-0.4) x10^3/uL Puncture Site pCO2 (35-45) mmHg pO2 (75-100) mmHg Base Excess (-2.0-2.0) O2 Saturation (94-100) g/dF ABG pH (7.35-7.45) ABG HCO3 (22-28) ABG O2 Sat (Measured) (95-100) % Arnaldo Test A-a Gradient a/A Ratio Hemoglobin Carboxyhemoglobin (0.0-6.9) % THgb Methemoglobin (1.4-1.5) % Temperature C POC O2 Flow Rate % Sodium (137-145) mmol/L Potassium (3.5-5.1) mmol/L Chloride (98-107) mmol/L Carbon Dioxide (22-30) mmol/L Anion Gap (5-15) MEQ/L BUN (9-20) mg/dL Creatinine (0.66-1.25) mg/dL Estimated GFR ML/MIN Glucose (74-106) mg/dL POC Glucometer (74 to 106) mg/dL Lactic Acid 1.2 (0.4-2.0) Calcium (8.4-10.2) mg/dL Phosphorus (2.5-4.5) mg/dL Magnesium (1.6-2.3) mg/dL Total Bilirubin (0.2-1.3) mg/dL AST (17-59) U/L ALT (0-50) U/L Alkaline Phosphatase (38-126) U/L Serum Total Protein (6.3-8.2) g/dL Albumin (3.5-5.0) g/dL Amylase (30-110) U/L Lipase (23-300) U/L Urine Color Yellow (Yellow) Urine Appearance Clear (Clear) Urine pH 6.0 (4.6-8.0) Ur Specific [place] 1.015 (1.005-1.030) Urine Protein 300 A (Negative) Urine Glucose (UA) 500 A (Negative) mg/dL Urine Ketones Trace A (Negative) Urine Blood Moderate A (Negative) Urine Nitrite Negative (Negative) Urine Bilirubin Negative (Negative) Urine Urobilinogen 0.2 (0.2) mg/dL Ur Leukocyte Esterase Negative (Negative) U Hyaline Cast (Auto) 3-5 A (0-2) /LPF Urine Microscopic RBC 11-20 A (0-5) /HPF Urine Microscopic WBC 0-2 (0-5) /HPF Ur Epithelial Cells None Seen (None Seen) /HPF Urine Bacteria None Seen (None Seen) /HPF Urine Culture Reflexed NO (NO) Urine Opiates Level (NEGATIVE) Ur Methadone (NEGATIVE) Urine Barbiturates (NEGATIVE) Ur Phencyclidine (PCP) (NEGATIVE) Urine Amphetamine (NEGATIVE) U Benzodiazepine Level (NEGATIVE) Urine Cocaine (NEGATIVE) Urine Marijuana (THC) (NEGATIVE) Influenza Type A Ag NEGATIVE (NEGATIVE) Influenza Type B Ag NEGATIVE (NEGATIVE) RSV (PCR) NEGATIVE (NEGATIVE) SARS-CoV-2 (PCR) NEGATIVE (NEGATIVE) Slides for Path Review 12/13/22 12/13/22 12/13/22 Range/Units 14:47 18:30 20:08 WBC (4.0-10.5) x10^3/uL RBC (4.1-5.6) x10^6/uL Hgb (12.5-18.0) g/dL Hct (42-50) % MCV (78-100) fL MCH (26-32) pg MCHC (32-36) g/dL RDW (11.5-14.0) % Plt Count (150-450) x10^3/uL MPV (7.5-11.0) fL Gran % (36.0-66.0) % Immature Gran % (Auto) (0.00-0.4) % Nucleat RBC Rel Count (0.00-0.1) % Eos # (Auto) (0-0.5) x10^3/uL Immature Gran # (Auto) (0.00-0.03) x10^3u/L Absolute Lymphs (auto) (1.0-4.6) x10^3/uL Absolute Monos (auto) (0.0-1.3) x10^3/uL Absolute Nucleated RBC (0.00-0.01) x10^3u/L Lymphocytes % (24.0-44.0) % Monocytes % (0.0-12.0) % Eosinophils % (0.00-5.0) % Basophils % (0.0-0.4) % Absolute Granulocytes (1.4-6.9) x10^3/uL Basophils # (0-0.4) x10^3/uL Puncture Site pCO2 (35-45) mmHg pO2 (75-100) mmHg Base Excess (-2.0-2.0) O2 Saturation (94-100) g/dF ABG pH (7.35-7.45) ABG HCO3 (22-28) ABG O2 Sat (Measured) (95-100) % Arnaldo Test A-a Gradient a/A Ratio Hemoglobin Carboxyhemoglobin (0.0-6.9) % THgb Methemoglobin (1.4-1.5) % Temperature C POC O2 Flow Rate % Sodium 135 L (137-145) mmol/L Potassium 4.4 (3.5-5.1) mmol/L Chloride 94 L (98-107) mmol/L Carbon Dioxide 24 (22-30) mmol/L Anion Gap 21.6 H (5-15) MEQ/L BUN 63 H (9-20) mg/dL Creatinine 4.44 H (0.66-1.25) mg/dL Estimated GFR 16.0 ML/MIN Glucose 509 H* (74-106) mg/dL POC Glucometer 567 H* (74 to 106) mg/dL Lactic Acid (0.4-2.0) Calcium 9.4 (8.4-10.2) mg/dL Phosphorus (2.5-4.5) mg/dL Magnesium (1.6-2.3) mg/dL Total Bilirubin (0.2-1.3) mg/dL AST (17-59) U/L ALT (0-50) U/L Alkaline Phosphatase (38-126) U/L Serum Total Protein (6.3-8.2) g/dL Albumin (3.5-5.0) g/dL Amylase (30-110) U/L Lipase (23-300) U/L Urine Color (Yellow) Urine Appearance (Clear) Urine pH (4.6-8.0) Ur Specific [place] (1.005-1.030) Urine Protein (Negative) Urine Glucose (UA) (Negative) mg/dL Urine Ketones (Negative) Urine Blood (Negative) Urine Nitrite (Negative) Urine Bilirubin (Negative) Urine Urobilinogen (0.2) mg/dL Ur Leukocyte Esterase (Negative) U Hyaline Cast (Auto) (0-2) /LPF Urine Microscopic RBC (0-5) /HPF Urine Microscopic WBC (0-5) /HPF Ur Epithelial Cells (None Seen) /HPF Urine Bacteria (None Seen) /HPF Urine Culture Reflexed (NO) Urine Opiates Level NEGATIVE (NEGATIVE) Ur Methadone NEGATIVE (NEGATIVE) Urine Barbiturates NEGATIVE (NEGATIVE) Ur Phencyclidine (PCP) NEGATIVE (NEGATIVE) Urine Amphetamine NEGATIVE (NEGATIVE) U Benzodiazepine Level NEGATIVE (NEGATIVE) Urine Cocaine NEGATIVE (NEGATIVE) Urine Marijuana (THC) NEGATIVE (NEGATIVE) Influenza Type A Ag (NEGATIVE) Influenza Type B Ag (NEGATIVE) RSV (PCR) (NEGATIVE) SARS-CoV-2 (PCR) (NEGATIVE) Slides for Path Review 12/13/22 12/13/22 12/13/22 Range/Units 20:48 22:00 22:00 WBC (4.0-10.5) x10^3/uL RBC (4.1-5.6) x10^6/uL Hgb (12.5-18.0) g/dL Hct (42-50) % MCV (78-100) fL MCH (26-32) pg MCHC (32-36) g/dL RDW (11.5-14.0) % Plt Count (150-450) x10^3/uL MPV (7.5-11.0) fL Gran % (36.0-66.0) % Immature Gran % (Auto) (0.00-0.4) % Nucleat RBC Rel Count (0.00-0.1) % Eos # (Auto) (0-0.5) x10^3/uL Immature Gran # (Auto) (0.00-0.03) x10^3u/L Absolute Lymphs (auto) (1.0-4.6) x10^3/uL Absolute Monos (auto) (0.0-1.3) x10^3/uL Absolute Nucleated RBC (0.00-0.01) x10^3u/L Lymphocytes % (24.0-44.0) % Monocytes % (0.0-12.0) % Eosinophils % (0.00-5.0) % Basophils % (0.0-0.4) % Absolute Granulocytes (1.4-6.9) x10^3/uL Basophils # (0-0.4) x10^3/uL Puncture Site pCO2 (35-45) mmHg pO2 (75-100) mmHg Base Excess (-2.0-2.0) O2 Saturation (94-100) g/dF ABG pH (7.35-7.45) ABG HCO3 (22-28) ABG O2 Sat (Measured) (95-100) % Arnaldo Test A-a Gradient a/A Ratio Hemoglobin Carboxyhemoglobin (0.0-6.9) % THgb Methemoglobin (1.4-1.5) % Temperature C POC O2 Flow Rate % Sodium 135 L (137-145) mmol/L Potassium 4.7 (3.5-5.1) mmol/L Chloride 93 L (98-107) mmol/L Carbon Dioxide 22 (22-30) mmol/L Anion Gap 23.6 H (5-15) MEQ/L BUN 64 H (9-20) mg/dL Creatinine 4.35 H (0.66-1.25) mg/dL Estimated GFR 16.4 ML/MIN Glucose 638 H* 596 H* (74-106) mg/dL POC Glucometer (74 to 106) mg/dL Lactic Acid (0.4-2.0) Calcium 9.2 (8.4-10.2) mg/dL Phosphorus 6.6 H (2.5-4.5) mg/dL Magnesium 2.1 (1.6-2.3) mg/dL Total Bilirubin (0.2-1.3) mg/dL AST (17-59) U/L ALT (0-50) U/L Alkaline Phosphatase (38-126) U/L Serum Total Protein (6.3-8.2) g/dL Albumin (3.5-5.0) g/dL Amylase (30-110) U/L Lipase (23-300) U/L Urine Color (Yellow) Urine Appearance (Clear) Urine pH (4.6-8.0) Ur Specific [place] (1.005-1.030) Urine Protein (Negative) Urine Glucose (UA) (Negative) mg/dL Urine Ketones (Negative) Urine Blood (Negative) Urine Nitrite (Negative) Urine Bilirubin (Negative) Urine Urobilinogen (0.2) mg/dL Ur Leukocyte Esterase (Negative) U Hyaline Cast (Auto) (0-2) /LPF Urine Microscopic RBC (0-5) /HPF Urine Microscopic WBC (0-5) /HPF Ur Epithelial Cells (None Seen) /HPF Urine Bacteria (None Seen) /HPF Urine Culture Reflexed (NO) Urine Opiates Level (NEGATIVE) Ur Methadone (NEGATIVE) Urine Barbiturates (NEGATIVE) Ur Phencyclidine (PCP) (NEGATIVE) Urine Amphetamine (NEGATIVE) U Benzodiazepine Level (NEGATIVE) Urine Cocaine (NEGATIVE) Urine Marijuana (THC) (NEGATIVE) Influenza Type A Ag (NEGATIVE) Influenza Type B Ag (NEGATIVE) RSV (PCR) (NEGATIVE) SARS-CoV-2 (PCR) (NEGATIVE) Slides for Path Review 12/13/22 12/14/22 12/14/22 Range/Units 23:14 00:23 01:17 WBC (4.0-10.5) x10^3/uL RBC (4.1-5.6) x10^6/uL Hgb (12.5-18.0) g/dL Hct (42-50) % MCV (78-100) fL MCH (26-32) pg MCHC (32-36) g/dL RDW (11.5-14.0) % Plt Count (150-450) x10^3/uL MPV (7.5-11.0) fL Gran % (36.0-66.0) % Immature Gran % (Auto) (0.00-0.4) % Nucleat RBC Rel Count (0.00-0.1) % Eos # (Auto) (0-0.5) x10^3/uL Immature Gran # (Auto) (0.00-0.03) x10^3u/L Absolute Lymphs (auto) (1.0-4.6) x10^3/uL Absolute Monos (auto) (0.0-1.3) x10^3/uL Absolute Nucleated RBC (0.00-0.01) x10^3u/L Lymphocytes % (24.0-44.0) % Monocytes % (0.0-12.0) % Eosinophils % (0.00-5.0) % Basophils % (0.0-0.4) % Absolute Granulocytes (1.4-6.9) x10^3/uL Basophils # (0-0.4) x10^3/uL Puncture Site pCO2 (35-45) mmHg pO2 (75-100) mmHg Base Excess (-2.0-2.0) O2 Saturation (94-100) g/dF ABG pH (7.35-7.45) ABG HCO3 (22-28) ABG O2 Sat (Measured) (95-100) % Arnaldo Test A-a Gradient a/A Ratio Hemoglobin Carboxyhemoglobin (0.0-6.9) % THgb Methemoglobin (1.4-1.5) % Temperature C POC O2 Flow Rate % Sodium (137-145) mmol/L Potassium (3.5-5.1) mmol/L Chloride (98-107) mmol/L Carbon Dioxide (22-30) mmol/L Anion Gap (5-15) MEQ/L BUN (9-20) mg/dL Creatinine (0.66-1.25) mg/dL Estimated GFR ML/MIN Glucose (74-106) mg/dL POC Glucometer 490 H 427 H 367 H (74 to 106) mg/dL Lactic Acid (0.4-2.0) Calcium (8.4-10.2) mg/dL Phosphorus (2.5-4.5) mg/dL Magnesium (1.6-2.3) mg/dL Total Bilirubin (0.2-1.3) mg/dL AST (17-59) U/L ALT (0-50) U/L Alkaline Phosphatase (38-126) U/L Serum Total Protein (6.3-8.2) g/dL Albumin (3.5-5.0) g/dL Amylase (30-110) U/L Lipase (23-300) U/L Urine Color (Yellow) Urine Appearance (Clear) Urine pH (4.6-8.0) Ur Specific [place] (1.005-1.030) Urine Protein (Negative) Urine Glucose (UA) (Negative) mg/dL Urine Ketones (Negative) Urine Blood (Negative) Urine Nitrite (Negative) Urine Bilirubin (Negative) Urine Urobilinogen (0.2) mg/dL Ur Leukocyte Esterase (Negative) U Hyaline Cast (Auto) (0-2) /LPF Urine Microscopic RBC (0-5) /HPF Urine Microscopic WBC (0-5) /HPF Ur Epithelial Cells (None Seen) /HPF Urine Bacteria (None Seen) /HPF Urine Culture Reflexed (NO) Urine Opiates Level (NEGATIVE) Ur Methadone (NEGATIVE) Urine Barbiturates (NEGATIVE) Ur Phencyclidine (PCP) (NEGATIVE) Urine Amphetamine (NEGATIVE) U Benzodiazepine Level (NEGATIVE) Urine Cocaine (NEGATIVE) Urine Marijuana (THC) (NEGATIVE) Influenza Type A Ag (NEGATIVE) Influenza Type B Ag (NEGATIVE) RSV (PCR) (NEGATIVE) SARS-CoV-2 (PCR) (NEGATIVE) Slides for Path Review 12/14/22 12/14/22 12/14/22 Range/Units 02:07 02:29 03:17 WBC (4.0-10.5) x10^3/uL RBC (4.1-5.6) x10^6/uL Hgb (12.5-18.0) g/dL Hct (42-50) % MCV (78-100) fL MCH (26-32) pg MCHC (32-36) g/dL RDW (11.5-14.0) % Plt Count (150-450) x10^3/uL MPV (7.5-11.0) fL Gran % (36.0-66.0) % Immature Gran % (Auto) (0.00-0.4) % Nucleat RBC Rel Count (0.00-0.1) % Eos # (Auto) (0-0.5) x10^3/uL Immature Gran # (Auto) (0.00-0.03) x10^3u/L Absolute Lymphs (auto) (1.0-4.6) x10^3/uL Absolute Monos (auto) (0.0-1.3) x10^3/uL Absolute Nucleated RBC (0.00-0.01) x10^3u/L Lymphocytes % (24.0-44.0) % Monocytes % (0.0-12.0) % Eosinophils % (0.00-5.0) % Basophils % (0.0-0.4) % Absolute Granulocytes (1.4-6.9) x10^3/uL Basophils # (0-0.4) x10^3/uL Puncture Site pCO2 (35-45) mmHg pO2 (75-100) mmHg Base Excess (-2.0-2.0) O2 Saturation (94-100) g/dF ABG pH (7.35-7.45) ABG HCO3 (22-28) ABG O2 Sat (Measured) (95-100) % Arnaldo Test A-a Gradient a/A Ratio Hemoglobin Carboxyhemoglobin (0.0-6.9) % THgb Methemoglobin (1.4-1.5) % Temperature C POC O2 Flow Rate % Sodium 137 (137-145) mmol/L Potassium 3.9 (3.5-5.1) mmol/L Chloride 98 (98-107) mmol/L Carbon Dioxide 26 (22-30) mmol/L Anion Gap 16.4 H (5-15) MEQ/L BUN 70 H (9-20) mg/dL Creatinine 4.47 H (0.66-1.25) mg/dL Estimated GFR 15.9 ML/MIN Glucose 305 H (74-106) mg/dL POC Glucometer 246 H 226 H (74 to 106) mg/dL Lactic Acid (0.4-2.0) Calcium 8.8 (8.4-10.2) mg/dL Phosphorus (2.5-4.5) mg/dL Magnesium (1.6-2.3) mg/dL Total Bilirubin (0.2-1.3) mg/dL AST (17-59) U/L ALT (0-50) U/L Alkaline Phosphatase (38-126) U/L Serum Total Protein (6.3-8.2) g/dL Albumin (3.5-5.0) g/dL Amylase (30-110) U/L Lipase (23-300) U/L Urine Color (Yellow) Urine Appearance (Clear) Urine pH (4.6-8.0) Ur Specific [place] (1.005-1.030) Urine Protein (Negative) Urine Glucose (UA) (Negative) mg/dL Urine Ketones (Negative) Urine Blood (Negative) Urine Nitrite (Negative) Urine Bilirubin (Negative) Urine Urobilinogen (0.2) mg/dL Ur Leukocyte Esterase (Negative) U Hyaline Cast (Auto) (0-2) /LPF Urine Microscopic RBC (0-5) /HPF Urine Microscopic WBC (0-5) /HPF Ur Epithelial Cells (None Seen) /HPF Urine Bacteria (None Seen) /HPF Urine Culture Reflexed (NO) Urine Opiates Level (NEGATIVE) Ur Methadone (NEGATIVE) Urine Barbiturates (NEGATIVE) Ur Phencyclidine (PCP) (NEGATIVE) Urine Amphetamine (NEGATIVE) U Benzodiazepine Level (NEGATIVE) Urine Cocaine (NEGATIVE) Urine Marijuana (THC) (NEGATIVE) Influenza Type A Ag (NEGATIVE) Influenza Type B Ag (NEGATIVE) RSV (PCR) (NEGATIVE) SARS-CoV-2 (PCR) (NEGATIVE) Slides for Path Review 12/14/22 12/14/22 12/14/22 Range/Units 04:34 04:50 04:50 WBC 9.2 (4.0-10.5) x10^3/uL RBC 3.49 L (4.1-5.6) x10^6/uL Hgb 8.7 L (12.5-18.0) g/dL Hct 27.6 L (42-50) % MCV 79.1 (78-100) fL MCH 24.9 L (26-32) pg MCHC 31.5 L (32-36) g/dL RDW 13.5 (11.5-14.0) % Plt Count 290 (150-450) x10^3/uL MPV 8.4 (7.5-11.0) fL Gran % 80.2 H (36.0-66.0) % Immature Gran % (Auto) 0.3 (0.00-0.4) % Nucleat RBC Rel Count 0.0 (0.00-0.1) % Eos # (Auto) 0.02 (0-0.5) x10^3/uL Immature Gran # (Auto) 0.03 (0.00-0.03) x10^3u/L Absolute Lymphs (auto) 0.63 L (1.0-4.6) x10^3/uL Absolute Monos (auto) 1.13 (0.0-1.3) x10^3/uL Absolute Nucleated RBC 0.00 (0.00-0.01) x10^3u/L Lymphocytes % 6.8 L (24.0-44.0) % Monocytes % 12.3 H (0.0-12.0) % Eosinophils % 0.2 (0.00-5.0) % Basophils % 0.2 (0.0-0.4) % Absolute Granulocytes 7.37 H (1.4-6.9) x10^3/uL Basophils # 0.02 (0-0.4) x10^3/uL Puncture Site pCO2 (35-45) mmHg pO2 (75-100) mmHg Base Excess (-2.0-2.0) O2 Saturation (94-100) g/dF ABG pH (7.35-7.45) ABG HCO3 (22-28) ABG O2 Sat (Measured) (95-100) % Arnaldo Test A-a Gradient a/A Ratio Hemoglobin Carboxyhemoglobin (0.0-6.9) % THgb Methemoglobin (1.4-1.5) % Temperature C POC O2 Flow Rate % Sodium 139 (137-145) mmol/L Potassium 3.8 (3.5-5.1) mmol/L Chloride 99 (98-107) mmol/L Carbon Dioxide 28 (22-30) mmol/L Anion Gap 15.7 H (5-15) MEQ/L BUN 70 H (9-20) mg/dL Creatinine 4.45 H (0.66-1.25) mg/dL Estimated GFR 16.0 ML/MIN Glucose 189 H (74-106) mg/dL POC Glucometer 189 H (74 to 106) mg/dL Lactic Acid (0.4-2.0) Calcium 8.7 (8.4-10.2) mg/dL Phosphorus (2.5-4.5) mg/dL Magnesium (1.6-2.3) mg/dL Total Bilirubin 0.60 (0.2-1.3) mg/dL AST 29 (17-59) U/L ALT 27 (0-50) U/L Alkaline Phosphatase 99 (38-126) U/L Serum Total Protein 7.3 (6.3-8.2) g/dL Albumin 3.9 (3.5-5.0) g/dL Amylase (30-110) U/L Lipase (23-300) U/L Urine Color (Yellow) Urine Appearance (Clear) Urine pH (4.6-8.0) Ur Specific [place] (1.005-1.030) Urine Protein (Negative) Urine Glucose (UA) (Negative) mg/dL Urine Ketones (Negative) Urine Blood (Negative) Urine Nitrite (Negative) Urine Bilirubin (Negative) Urine Urobilinogen (0.2) mg/dL Ur Leukocyte Esterase (Negative) U Hyaline Cast (Auto) (0-2) /LPF Urine Microscopic RBC (0-5) /HPF Urine Microscopic WBC (0-5) /HPF Ur Epithelial Cells (None Seen) /HPF Urine Bacteria (None Seen) /HPF Urine Culture Reflexed (NO) Urine Opiates Level (NEGATIVE) Ur Methadone (NEGATIVE) Urine Barbiturates (NEGATIVE) Ur Phencyclidine (PCP) (NEGATIVE) Urine Amphetamine (NEGATIVE) U Benzodiazepine Level (NEGATIVE) Urine Cocaine (NEGATIVE) Urine Marijuana (THC) (NEGATIVE) Influenza Type A Ag (NEGATIVE) Influenza Type B Ag (NEGATIVE) RSV (PCR) (NEGATIVE) SARS-CoV-2 (PCR) (NEGATIVE) Slides for Path Review 12/14/22 12/14/22 12/14/22 Range/Units 05:05 05:23 06:26 WBC (4.0-10.5) x10^3/uL RBC (4.1-5.6) x10^6/uL Hgb (12.5-18.0) g/dL Hct (42-50) % MCV (78-100) fL MCH (26-32) pg MCHC (32-36) g/dL RDW (11.5-14.0) % Plt Count (150-450) x10^3/uL MPV (7.5-11.0) fL Gran % (36.0-66.0) % Immature Gran % (Auto) (0.00-0.4) % Nucleat RBC Rel Count (0.00-0.1) % Eos # (Auto) (0-0.5) x10^3/uL Immature Gran # (Auto) (0.00-0.03) x10^3u/L Absolute Lymphs (auto) (1.0-4.6) x10^3/uL Absolute Monos (auto) (0.0-1.3) x10^3/uL Absolute Nucleated RBC (0.00-0.01) x10^3u/L Lymphocytes % (24.0-44.0) % Monocytes % (0.0-12.0) % Eosinophils % (0.00-5.0) % Basophils % (0.0-0.4) % Absolute Granulocytes (1.4-6.9) x10^3/uL Basophils # (0-0.4) x10^3/uL Puncture Site RIGHT RADIAL pCO2 37 (35-45) mmHg pO2 99 (75-100) mmHg Base Excess 2.4 H (-2.0-2.0) O2 Saturation 94.8 (94-100) g/dF ABG pH 7.46 H (7.35-7.45) ABG HCO3 26.3 (22-28) ABG O2 Sat (Measured) 99.3 (95-100) % Arnaldo Test YES A-a Gradient 4 a/A Ratio 0.96 Hemoglobin 9.4 Carboxyhemoglobin 4.0 (0.0-6.9) % THgb Methemoglobin 0.5 L (1.4-1.5) % Temperature 37.0 C POC O2 Flow Rate 21 % Sodium (137-145) mmol/L Potassium 3.8 (3.5-5.1) mmol/L Chloride (98-107) mmol/L Carbon Dioxide (22-30) mmol/L Anion Gap (5-15) MEQ/L BUN (9-20) mg/dL Creatinine (0.66-1.25) mg/dL Estimated GFR ML/MIN Glucose (74-106) mg/dL POC Glucometer 166 H 124 H (74 to 106) mg/dL Lactic Acid (0.4-2.0) Calcium (8.4-10.2) mg/dL Phosphorus (2.5-4.5) mg/dL Magnesium (1.6-2.3) mg/dL Total Bilirubin (0.2-1.3) mg/dL AST (17-59) U/L ALT (0-50) U/L Alkaline Phosphatase (38-126) U/L Serum Total Protein (6.3-8.2) g/dL Albumin (3.5-5.0) g/dL Amylase (30-110) U/L Lipase (23-300) U/L Urine Color (Yellow) Urine Appearance (Clear) Urine pH (4.6-8.0) Ur Specific [place] (1.005-1.030) Urine Protein (Negative) Urine Glucose (UA) (Negative) mg/dL Urine Ketones (Negative) Urine Blood (Negative) Urine Nitrite (Negative) Urine Bilirubin (Negative) Urine Urobilinogen (0.2) mg/dL Ur Leukocyte Esterase (Negative) U Hyaline Cast (Auto) (0-2) /LPF Urine Microscopic RBC (0-5) /HPF Urine Microscopic WBC (0-5) /HPF Ur Epithelial Cells (None Seen) /HPF Urine Bacteria (None Seen) /HPF Urine Culture Reflexed (NO) Urine Opiates Level (NEGATIVE) Ur Methadone (NEGATIVE) Urine Barbiturates (NEGATIVE) Ur Phencyclidine (PCP) (NEGATIVE) Urine Amphetamine (NEGATIVE) U Benzodiazepine Level (NEGATIVE) Urine Cocaine (NEGATIVE) Urine Marijuana (THC) (NEGATIVE) Influenza Type A Ag (NEGATIVE) Influenza Type B Ag (NEGATIVE) RSV (PCR) (NEGATIVE) SARS-CoV-2 (PCR) (NEGATIVE) Slides for Path Review 12/14/22 Range/Units 07:21 WBC (4.0-10.5) x10^3/uL RBC (4.1-5.6) x10^6/uL Hgb (12.5-18.0) g/dL Hct (42-50) % MCV (78-100) fL MCH (26-32) pg MCHC (32-36) g/dL RDW (11.5-14.0) % Plt Count (150-450) x10^3/uL MPV (7.5-11.0) fL Gran % (36.0-66.0) % Immature Gran % (Auto) (0.00-0.4) % Nucleat RBC Rel Count (0.00-0.1) % Eos # (Auto) (0-0.5) x10^3/uL Immature Gran # (Auto) (0.00-0.03) x10^3u/L Absolute Lymphs (auto) (1.0-4.6) x10^3/uL Absolute Monos (auto) (0.0-1.3) x10^3/uL Absolute Nucleated RBC (0.00-0.01) x10^3u/L Lymphocytes % (24.0-44.0) % Monocytes % (0.0-12.0) % Eosinophils % (0.00-5.0) % Basophils % (0.0-0.4) % Absolute Granulocytes (1.4-6.9) x10^3/uL Basophils # (0-0.4) x10^3/uL Puncture Site pCO2 (35-45) mmHg pO2 (75-100) mmHg Base Excess (-2.0-2.0) O2 Saturation (94-100) g/dF ABG pH (7.35-7.45) ABG HCO3 (22-28) ABG O2 Sat (Measured) (95-100) % Arnaldo Test A-a Gradient a/A Ratio Hemoglobin Carboxyhemoglobin (0.0-6.9) % THgb Methemoglobin (1.4-1.5) % Temperature C POC O2 Flow Rate % Sodium (137-145) mmol/L Potassium (3.5-5.1) mmol/L Chloride (98-107) mmol/L Carbon Dioxide (22-30) mmol/L Anion Gap (5-15) MEQ/L BUN (9-20) mg/dL Creatinine (0.66-1.25) mg/dL Estimated GFR ML/MIN Glucose (74-106) mg/dL POC Glucometer 84 (74 to 106) mg/dL Lactic Acid (0.4-2.0) Calcium (8.4-10.2) mg/dL Phosphorus (2.5-4.5) mg/dL Magnesium (1.6-2.3) mg/dL Total Bilirubin (0.2-1.3) mg/dL AST (17-59) U/L ALT (0-50) U/L Alkaline Phosphatase (38-126) U/L Serum Total Protein (6.3-8.2) g/dL Albumin (3.5-5.0) g/dL Amylase (30-110) U/L Lipase (23-300) U/L Urine Color (Yellow) Urine Appearance (Clear) Urine pH (4.6-8.0) Ur Specific [place] (1.005-1.030) Urine Protein (Negative) Urine Glucose (UA) (Negative) mg/dL Urine Ketones (Negative) Urine Blood (Negative) Urine Nitrite (Negative) Urine Bilirubin (Negative) Urine Urobilinogen (0.2) mg/dL Ur Leukocyte Esterase (Negative) U Hyaline Cast (Auto) (0-2) /LPF Urine Microscopic RBC (0-5) /HPF Urine Microscopic WBC (0-5) /HPF Ur Epithelial Cells (None Seen) /HPF Urine Bacteria (None Seen) /HPF Urine Culture Reflexed (NO) Urine Opiates Level (NEGATIVE) Ur Methadone (NEGATIVE) Urine Barbiturates (NEGATIVE) Ur Phencyclidine (PCP) (NEGATIVE) Urine Amphetamine (NEGATIVE) U Benzodiazepine Level (NEGATIVE) Urine Cocaine (NEGATIVE) Urine Marijuana (THC) (NEGATIVE) Influenza Type A Ag (NEGATIVE) Influenza Type B Ag (NEGATIVE) RSV (PCR) (NEGATIVE) SARS-CoV-2 (PCR) (NEGATIVE) Slides for Path Review Accuchecks Date 12/14/22 Date 12/14/22 Date 12/14/22 Date 12/14/22 Date 12/14/22 Date 12/14/22 Date 12/14/22 Date 12/14/22 Date 12/13/22 Date 12/13/22 Date 12/13/22 Time 01:00 Time 01:00 Time 01:00 Time 01:00 Time 01:00 Time 01:00 Time 00:00 Time 23:00 Time 20:00 Time 13:39 Assessment/Plan (1) DKA (diabetic ketoacidosis) Current Visit: Yes Status: Acute Assessment & Plan: restar lantus 20 units daily with sliding scale coverage, d/c drip Code(s): E11.10 - TYPE 2 DIABETES MELLITUS WITH KETOACIDOSIS WITHOUT COMA (2) Acute on chronic renal failure Current Visit: Yes Status: Acute Qualifiers: Assessment & Plan: needs rehydration, will increase IVF rate Code(s): N17.9 - ACUTE KIDNEY FAILURE, UNSPECIFIED; N18.9 - CHRONIC KIDNEY DISEASE, UNSPECIFIED (3) Vomiting Current Visit: Yes Status: Acute Code(s): R11.10 - VOMITING, UNSPECIFIED
[2022-12-14] MEDS ORDERED: Sodium Chloride 0.9% 1000 ML 1,000 ML IV SCH (08:30)
[2022-12-14] MEDS ORDERED: D50W 50 ml Abboject IV PRN (09:04)
[2022-12-14] MEDS: Hydromorphone 1 mg/ml Injection IV PRN ×3 (09:11→20:47)
[2022-12-14] MEDS: PROTONIX 40 MG IV IV SCH (09:11)
[2022-12-14] MEDS: ZOCOR 20MG PO SCH (09:53)
[2022-12-14] MEDS: NORVASC 5 MG PO SCH (09:53)
[2022-12-14] MEDS: ECOTRIN 81 MG PO SCH (09:53)
[2022-12-14] MEDS: COREG 12.5 MG PO SCH ×2 (09:53→20:46)
[2022-12-14] MEDS ORDERED: NON-FORMULARY ITEM (Carvedilol [Coreg] 25 MG Tablet) PO SCH (10:00)
[2022-12-14] MEDS ORDERED: NON-FORMULARY ITEM (Cefdinir [Cefdinir] 300 MG Capsule) PO SCH (10:00)
[2022-12-14] MEDS ORDERED: LIPITOR 40MG PO SCH (10:00)
[2022-12-14] MEDS ORDERED: CLONIDINE TD SCH (10:00)
[2022-12-14] MEDS ORDERED: NORVASC 5 MG PO SCH (10:00)
[2022-12-14] MEDS ORDERED: OMNICEF 300 MG PO SCH (10:00)
[2022-12-14] MEDS ORDERED: NON-FORMULARY ITEM (Amlodipine Besylate [Amlodipine Besylate] 10 MG Tablet) PO SCH (10:00)
[2022-12-14] MEDS: HUMULIN R SQ PRN ×2 (17:08→20:05)
[2022-12-15] MEDS: ENALAPRILAT 2.5 MG INJECTION IV SCH ×3 (00:03→13:05)
[2022-12-15] MEDS: Sodium Chloride 0.9% 1000 ML 1,000 ML IV SCH ×2 (00:57→09:18)
[2022-12-15] MEDS: Compazine 10 MG/2 ML IV PRN (04:14)
[2022-12-15] MEDS: Hydromorphone 1 mg/ml Injection IV PRN (04:14)
[2022-12-15 06:15] LABS: Absolute Neutrophil Ct (ANC) 7.58 x10^3/uL (1.4-6.9); BASOPHIL % 0.5 % (0.0-0.4); Basophil (Absolute #) 0.05 x10^3/uL (0-0.4); Eosinophil % 6.5 % (0.00-5.0); Eosinophil (Absolute #) 0.65 x10^3/uL (0-0.5); Hematocrit 26.9 % (42-50); Hemoglobin 8.6 g/dL (12.5-18.0); IMMATURE GRAN # 0.03 x10^3u/L (0.00-0.03); IMMATURE GRAN % 0.3 % (0.00-0.4); Lymphocyte (Absolute #) 0.57 x10^3/uL (1.0-4.6); Lymphocytes % 5.7 % (24.0-44.0); Mean Cell Volume 79.8 fL (78-100); Mean Corpuscular Hemoglobin 25.5 pg (26-32); Mean Platelet Volume 8.4 fL (7.5-11.0); Monocyte (Absolute #) 1.07 x10^3/uL (0.0-1.3); Monocytes % 10.8 % (0.0-12.0); Neutrophil % 76.2 % (36.0-66.0); Platelet Count 281 x10^3/uL (150-450); Red Blood Count 3.37 x10^6/uL (4.1-5.6); Red Cell Distribution Width 13.8 % (11.5-14.0)
[2022-12-15 07:14] LABS: ALBUMIN 3.5 g/dL (3.5-5.0); ANION GAP 12.7 MEQ/L (5-15); BILIRUBIN,TOTAL 0.6 mg/dL (0.2-1.3); Calcium 8.3 mg/dL (8.4-10.2); Creatinine 1 3.71 mg/dL (0.66-1.25); EST GLOMERULAR FILTRATION RATE 19.7 ML/MIN; Potassium 3.7 mmol/L (3.5-5.1); Total Protein 6.7 g/dL (6.3-8.2)
[2022-12-15] MEDS: Lantus Insulin SQ SCH (07:37)
[2022-12-15] MEDS: COREG 12.5 MG PO SCH (07:42)
[2022-12-15] MEDS: NORVASC 5 MG PO SCH (07:42)
[2022-12-15] MEDS: ZOCOR 20MG PO SCH (09:18)
[2022-12-15] MEDS: ECOTRIN 81 MG PO SCH (09:18)
[2022-12-15] MEDS: PROTONIX 40 MG IV IV SCH (09:34)
[2022-12-15 11:19] LABS: Slide Review 1 YES
--- NOTE | 2022-12-15 11:26 | PCM.DCORD ---
- Discharge Disposition: Home, Self-Care Condition: Fair Prescriptions: Continue Insulin Lispro [Admelog Solostar] 10 - 15 unit SQ TIDWMEALS #3 Ondansetron ODT 4 MG [Zofran Odt 4 mg] 4 mg PO Q6H PRN PRN #10 tablet PRN Reason: Vomiting Atorvastatin Calcium [Lipitor 40Mg] 40 mg PO DAILY Aspirin EC 81 mg [Ecotrin 81 mg] 1 tab PO DAILY Insulin Glargine [Lantus Insulin] 20 unit SQ AMINSULIN Ferrous Sulfate 325 mg [Feosol 325 mg] 1 tab PO BID Metolazone 2.5 mg [Zaroxolyn 2.5 MG] 2.5 mg PO DAILY Clonidine HCl 0.1 mg [Clonidine 0.1 mg Tablet] 0.3 mg PO TID Clonidine [Catapres-Tts 3] 1 each TD DAILY Carvedilol [Coreg] 25 mg PO BID Bumetanide 2 mg PO DAILY Amlodipine Besylate 10 mg PO DAILY Instructions: Diabetic Ketoacidosis (DC) Additional Instructions: CALL THE [facility] SECURITY OFFICE AT [phone]. HAVE THEM MAIL YOU THE [facility] SECURITY PAPERWORK. ONCE YOU GET THE PAPERWORK CALL [facility] AT [phone]. THEY CAN COME HELP YOU FILL IT OUT OR HAVE YOU COME IN TO THEIR OFFICE TO HELP YOU. Follow up with: HOLA RODRIGUEZ [CONSULTING PHYSICIAN] - Call for Appointment VALENTINA STARKS [Primary Care Provider] - Call for Appointment
[2022-12-15 11:53] VITALS: BP 189/90; PULSE 75; O2SAT 98
[2022-12-17] MEDS ORDERED: Catapres-TTS 1 PATCH TOP SCH (10:00)
[2022-12-17] MEDS ORDERED: Catapres TTS-2 PATCH TOP SCH ×2 (10:00)
== END 2022-12-15 14:12 | disposition home or self-care (01) ==
LOC: ED 13:08 → MED SURG 16:42 → INTOOBSV 16:42 → ICU 20:07
PROVIDERS: ADMIT Family Medicine; ATTEND Family Medicine
DX: E11.10 Type 2 diabetes mellitus with ketoacidosis without coma (principal); E11.22 Type 2 diabetes mellitus with diabetic chronic kidney disease; E11.65 Type 2 diabetes mellitus with hyperglycemia; I12.9 Hypertensive chronic kidney disease with stage 1 through stage 4 chronic kidney disease, or unspecified chronic kidney disease; N18.9 Chronic kidney disease, unspecified; R11.10 Vomiting, unspecified; E78.5 Hyperlipidemia, unspecified; Z79.899 Other long term (current) drug therapy; Z20.828 Contact with and (suspected) exposure to other viral communicable diseases
CPT/HCPCS: 0241U; 36000; 36415; 36600; 80048; 80053; 80307; 81001; 82150; 82375; 82803; 82947; 83605; 83690; 83735; 84100; 85025; 96360; 96361; 96374; 96375; 96376; 99285; 99291; 93268; J1170; J1815; J2405; A9270-GY; G0378

== ENCOUNTER 2023-01-04 22:58 | Emergency (ER) | payer OTHER ==
[2023-01-04] MEDS ORDERED: Zofran 4 MG/2 ML VIAL IV ONE (23:16)
[2023-01-04] MEDS ORDERED: Sodium Chloride 0.9% 1000 ML 1,000 ML IV STA (23:16)
--- NOTE | 2023-01-04 23:16 | ERPHSYRPT ---
- History of Present Illness Time Seen by Provider: 01/04/23 23:10 Source: patient Exam Limitations: clinical condition Physician History: This 37-year-old insulin-dependent diabetic with a history of hyperlipidemia, hypertension and recently started on dialysis Saturday presents to the emergency department with abdominal pain nausea and vomiting that began last evening. Patient is typically not compliant but states that he has been more compliant recently with his diabetes. He presents with systolic blood pressure of over 200. He is on multiple medications to lower his blood pressure including metolazone, amlodipine and clonidine. He also takes Bumex. Patient denies chest pain. He has no shortness of breath. He was dialyzed today. Timing/Duration: yesterday Severity: moderate Associated Symptoms: nausea, vomiting, abdominal pain, loss of appetite, weakness, No shortness of breath, No chest pain Allergies/Adverse Reactions: No Known Drug Allergies Allergy (Verified 01/04/23 23:04) Home Medications: Aspirin EC 81 mg [Ecotrin 81 mg] 1 tab PO DAILY 11/29/22 [History] Atorvastatin Calcium [Lipitor 40Mg] 40 mg PO DAILY 11/29/22 [History] Ferrous Sulfate 325 mg [Feosol 325 mg] 1 tab PO BID 11/29/22 [History] Insulin Glargine [Lantus Insulin] 20 unit SQ AMINSULIN 11/29/22 [History] Amlodipine Besylate 10 mg PO DAILY 12/14/22 [History] Bumetanide 2 mg PO DAILY 12/14/22 [History] Carvedilol [Coreg] 25 mg PO BID 12/14/22 [History] Clonidine HCl 0.1 mg [Clonidine 0.1 mg Tablet] 0.3 mg PO TID 12/14/22 [History] Clonidine [Catapres-Tts 3] 1 each TD DAILY 12/14/22 [History] Metolazone 2.5 mg [Zaroxolyn 2.5 MG] 2.5 mg PO DAILY 12/14/22 [History] Hx Tetanus, Diphtheria Vaccination/Date Given: Yes Hx Influenza Vaccination/Date Given: No Hx Pneumococcal Vaccination/Date Given: Yes (10/01/2016) Travel Risk - International Travel Have you traveled outside of the country in past 3 weeks: No - Coronavirus Screening Are you exhibiting any of the following symptoms?: No Close contact with a COVID-19 positive Pt in past 14-21 Days: No - Vaccine Status Have you recieved a Covid-19 vaccination: No - Review of Systems Constitutional: No Symptoms Eyes: No Symptoms Ears, Nose, & Throat: No Symptoms Respiratory: No Symptoms Cardiac: No Symptoms Abdominal/Gastrointestinal: Abdominal Pain, Nausea, Vomiting Genitourinary Symptoms: No Symptoms Musculoskeletal: No Symptoms Skin: No Symptoms Neurological: No Symptoms Psychological: No Symptoms Endocrine: No Symptoms Hematologic/Lymphatic: No Symptoms Immunological/Allergic: No Symptoms All Other Systems: Reviewed and Negative - Past Medical History Pertinent Past Medical History: Yes Neurological History: No Pertinent History ENT History: No Pertinent History Cardiac History: High Cholesterol, Hypertension Respiratory History: No Pertinent History Endocrine Medical History: Diabetes Type I Musculoskeletal History: No Pertinent History GI Medical History: No Pertinent History History: Renal Disease Psycho-Social History: Anxiety, Depression Male Reproductive Disorders: No Pertinent History Other Medical History: prior drug use - Past Surgical History Past Surgical History: No Neuro Surgical History: No Pertinent History Cardiac: No Pertinent History Respiratory: No Pertinent History Gastrointestinal: No Pertinent History Genitourinary: No Pertinent History Musculoskeletal: No Pertinent History Male Surgical History: No Pertinent History Other Surgical History: . - Social History Smoking Status: Never smoker How long have you smoked: 1 year Exposure to second hand smoke: No Drug Use: marijuana Patient Lives Alone: No Significant Family History: no pertinent family hx - Nursing Vital Signs Nursing Vital Signs: Initial Vital Signs Pulse Rate 114 H 01/04/23 23:05 Respiratory Rate 20 01/04/23 23:05 Blood Pressure 212/119 01/04/23 23:05 O2 Sat by Pulse Oximetry 97 01/04/23 23:05 Pain Scale Pain Intensity 2 - Physical Exam General Appearance: mild distress, alert, anxiety Eye Exam: PERRL/EOMI, eyes nml inspection Ears, Nose, Throat Exam: normal ENT inspection, moist mucous membranes Neck Exam: normal inspection, non-tender, supple, full range of motion Respiratory Exam: normal breath sounds, lungs clear, airway intact, No chest tenderness, No respiratory distress Cardiovascular Exam: tachycardia Gastrointestinal/Abdomen Exam: soft, normal bowel sounds, tenderness, No guarding (Diffuse mild), No rebound Rectal Exam: not done Back Exam: normal inspection, normal range of motion, No CVA tenderness, No vertebral tenderness Extremity Exam: normal inspection, normal range of motion, pelvis stable Neurologic Exam: alert, oriented x 3, cooperative, 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 as tested, normal mood/affect, nml cerebellar function, nml station & gait, sensation nml Skin Exam: normal color, warm, dry Lymphatic Exam: No adenopathy SpO2 Interpretation: normal O2 Delivery: Room Air - Course Nursing assessment & vital signs reviewed: Yes Ordered Tests: Active Orders 24 hr Category Date Time Status Hoisting Engineer STAT Care 01/04/23 23:16 Active IV Insertion STAT Care 01/04/23 23:16 Active POCT Glucose Check STAT Care 01/04/23 23:16 Active Pulse Oximetry (ED) STAT Care 01/04/23 23:16 Active CBC W DIFF Stat Lab 01/04/23 23:50 Completed CMP Stat Lab 01/04/23 23:50 Completed CMP Stat Lab 01/05/23 04:07 Completed ETHYL ALCOHOL Stat Lab 01/04/23 23:50 Completed Lactic Acid Urgent Lab 01/04/23 23:40 Completed MAGNESIUM Stat Lab 01/04/23 23:50 Completed POCT GLUCOSE Stat Lab 01/05/23 00:43 Completed POCT GLUCOSE Stat Lab 01/05/23 02:56 Completed POCT GLUCOSE Stat Lab 01/05/23 06:00 Completed UA W/RFX UR CULTURE Stat Lab 01/05/23 03:23 Completed Medication Summary Discontinued Medications Generic Name Dose Route Start Last Admin Trade Name Freq PRN Reason Stop Dose Admin Bumetanide 1 mg 01/05/23 04:46 01/05/23 04:55 Bumetanide 0.25 Mg/Ml 4ml Vial IV 01/05/23 04:47 1 mg STAT ONE Administration Bumetanide Confirm 01/05/23 04:53 Bumetanide 0.25 Mg/Ml 4ml Vial Administered 01/05/23 04:54 Dose 1 mg .ROUTE .STK-MED ONE Hydromorphone HCl 0.5 mg 01/04/23 23:25 01/04/23 23:33 Hydromorphone 1 Mg/1ml Inj IV 01/04/23 23:26 0.5 mg STAT ONE Administration Hydromorphone HCl Confirm 01/04/23 23:31 Hydromorphone 1 Mg/1ml Inj Administered 01/04/23 23:32 Dose 1 mg .ROUTE .STK-MED ONE Sodium Chloride 1,000 mls @ 999 mls/hr 01/04/23 23:16 01/05/23 02:48 Sodium Chloride 0.9% 1000 Ml IV 01/05/23 00:16 Infused .Q1H1M STA Infusion Sodium Chloride Confirm 01/05/23 00:48 Sodium Chloride 0.9% 1000 Ml Administered 01/05/23 00:49 Dose 1,000 mls @ ud .ROUTE .STK-MED ONE Sodium Chloride 500 mls @ 500 mls/hr 01/05/23 04:45 01/05/23 06:02 Sodium Chloride 0.9% 500 Ml IV 01/05/23 05:44 Infused .Q1H ONE Infusion Sodium Chloride Confirm 01/05/23 04:54 Sodium Chloride 0.9% 500 Ml Administered 01/05/23 04:55 Dose 500 mls @ ud IV .STK-MED ONE Insulin Human Regular 5 unit 01/04/23 23:17 01/04/23 23:32 Insulin Regular, Human 1 Unit IV 01/04/23 23:18 5 unit STAT ONE Administration Insulin Human Regular Confirm 01/04/23 23:28 Insulin Regular, Human 1 Unit Administered 01/04/23 23:29 Dose 5 unit .ROUTE .STK-MED ONE Insulin Human Regular 10 unit 01/05/23 03:03 01/05/23 03:21 Insulin Regular, Human 1 Unit IV 01/05/23 03:04 10 unit STAT ONE Administration Insulin Human Regular Confirm 01/05/23 03:20 Insulin Regular, Human 1 Unit Administered 01/05/23 03:21 Dose 10 unit .ROUTE .STK-MED ONE Insulin Human Regular 5 unit 01/05/23 04:46 01/05/23 04:55 Insulin Regular, Human 1 Unit IV 01/05/23 04:47 5 unit STAT ONE Administration Insulin Human Regular Confirm 01/05/23 04:54 Insulin Regular, Human 1 Unit Administered 01/05/23 04:55 Dose 5 unit .ROUTE .STK-MED ONE Labetalol HCl 10 mg 01/04/23 23:25 01/04/23 23:33 Labetalol Hcl 20 Mg/4 Ml Disp.Syringe IV 01/04/23 23:26 10 mg STAT ONE Administration Labetalol HCl Confirm 01/04/23 23:31 Labetalol Hcl 20 Mg/4 Ml Disp.Syringe Administered 01/04/23 23:32 Dose 20 mg IV .STK-MED ONE Labetalol HCl 10 mg 01/05/23 02:16 01/05/23 02:17 Labetalol Hcl 20 Mg/4 Ml Disp.Syringe IV 01/05/23 02:17 10 mg STAT ONE Administration Labetalol HCl Confirm 01/05/23 02:16 Labetalol Hcl 20 Mg/4 Ml Disp.Syringe Administered 01/05/23 02:17 Dose 20 mg IV .STK-MED ONE Ondansetron HCl 4 mg 01/04/23 23:16 01/04/23 23:32 Ondansetron Hcl 4 Mg/2 Ml Vial IV 01/04/23 23:17 4 mg STAT ONE Administration Ondansetron HCl Confirm 01/04/23 23:27 Ondansetron Hcl 4 Mg/2 Ml Vial Administered 01/04/23 23:28 Dose 4 mg .ROUTE .STK-MED ONE Lab/Rad Data: Laboratory Result Diagrams 01/04/23 23:50 01/05/23 04:07 Laboratory Results 01/05/23 01/05/23 01/05/23 Range/Units 06:00 04:07 03:23 WBC (4.0-10.5) x10^3/uL RBC (4.1-5.6) x10^6/uL Hgb (12.5-18.0) g/dL Hct (42-50) % MCV (78-100) fL MCH (26-32) pg MCHC (32-36) g/dL RDW (11.5-14.0) % Plt Count (150-450) x10^3/uL MPV (7.5-11.0) fL Gran % (36.0-66.0) % Immature Gran % (Auto) (0.00-0.4) % Nucleat RBC Rel Count (0.00-0.1) % Eos # (Auto) (0-0.5) x10^3/uL Immature Gran # (Auto) (0.00-0.03) x10^3u/L Absolute Lymphs (auto) (1.0-4.6) x10^3/uL Absolute Monos (auto) (0.0-1.3) x10^3/uL Absolute Nucleated RBC (0.00-0.01) x10^3u/L Lymphocytes % (24.0-44.0) % Monocytes % (0.0-12.0) % Eosinophils % (0.00-5.0) % Basophils % (0.0-0.4) % Absolute Granulocytes (1.4-6.9) x10^3/uL Basophils # (0-0.4) x10^3/uL Sodium 134 L (137-145) mmol/L Potassium 3.6 (3.5-5.1) mmol/L Chloride 86 L (98-107) mmol/L Carbon Dioxide 28 (22-30) mmol/L Anion Gap 23.4 H (5-15) MEQ/L BUN 20 (9-20) mg/dL Creatinine 3.27 H (0.66-1.25) mg/dL Estimated GFR 22.8 ML/MIN Glucose 360 H (74-106) mg/dL POC Glucometer 234 H (74 to 106) mg/dL Lactic Acid (0.4-2.0) Calcium 8.8 (8.4-10.2) mg/dL Magnesium (1.6-2.3) mg/dL Total Bilirubin 0.70 (0.2-1.3) mg/dL AST 30 (17-59) U/L ALT 20 (0-50) U/L Alkaline Phosphatase 88 (38-126) U/L Serum Total Protein 7.1 (6.3-8.2) g/dL Albumin 3.9 (3.5-5.0) g/dL Urine Color Yellow (Yellow) Urine Appearance Clear (Clear) Urine pH 6.0 (4.6-8.0) Ur Specific [place] 1.025 (1.005-1.030) Urine Protein >=1000 A (Negative) Urine Glucose (UA) >=1000 A (Negative) mg/dL Urine Ketones 40 A (Negative) Urine Blood Small A (Negative) Urine Nitrite Negative (Negative) Urine Bilirubin Negative (Negative) Urine Urobilinogen 1.0 A (0.2) mg/dL Ur Leukocyte Esterase Negative (Negative) Urine Microscopic RBC 0-2 (0-5) /HPF Urine Microscopic WBC NONE SEEN (0-5) /HPF Ur Epithelial Cells None Seen (None Seen) /HPF Urine Bacteria None Seen (None Seen) /HPF Urine Culture Reflexed NO (NO) Ethyl Alcohol (0-10) mg/dL Slides for Path Review 01/05/23 01/05/23 01/04/23 Range/Units 02:56 00:43 23:50 WBC (4.0-10.5) x10^3/uL RBC (4.1-5.6) x10^6/uL Hgb (12.5-18.0) g/dL Hct (42-50) % MCV (78-100) fL MCH (26-32) pg MCHC (32-36) g/dL RDW (11.5-14.0) % Plt Count (150-450) x10^3/uL MPV (7.5-11.0) fL Gran % (36.0-66.0) % Immature Gran % (Auto) (0.00-0.4) % Nucleat RBC Rel Count (0.00-0.1) % Eos # (Auto) (0-0.5) x10^3/uL Immature Gran # (Auto) (0.00-0.03) x10^3u/L Absolute Lymphs (auto) (1.0-4.6) x10^3/uL Absolute Monos (auto) (0.0-1.3) x10^3/uL Absolute Nucleated RBC (0.00-0.01) x10^3u/L Lymphocytes % (24.0-44.0) % Monocytes % (0.0-12.0) % Eosinophils % (0.00-5.0) % Basophils % (0.0-0.4) % Absolute Granulocytes (1.4-6.9) x10^3/uL Basophils # (0-0.4) x10^3/uL Sodium 133 L (137-145) mmol/L Potassium 4.0 (3.5-5.1) mmol/L Chloride 84 L (98-107) mmol/L Carbon Dioxide 29 (22-30) mmol/L Anion Gap 23.7 H (5-15) MEQ/L BUN 19 (9-20) mg/dL Creatinine 2.81 H (0.66-1.25) mg/dL Estimated GFR 27.1 ML/MIN Glucose 415 H (74-106) mg/dL POC Glucometer 376 H 369 H (74 to 106) mg/dL Lactic Acid (0.4-2.0) Calcium 8.9 (8.4-10.2) mg/dL Magnesium 1.7 (1.6-2.3) mg/dL Total Bilirubin 0.90 (0.2-1.3) mg/dL AST 29 (17-59) U/L ALT 18 (0-50) U/L Alkaline Phosphatase 105 (38-126) U/L Serum Total Protein 7.0 (6.3-8.2) g/dL Albumin 4.1 (3.5-5.0) g/dL Urine Color (Yellow) Urine Appearance (Clear) Urine pH (4.6-8.0) Ur Specific [place] (1.005-1.030) Urine Protein (Negative) Urine Glucose (UA) (Negative) mg/dL Urine Ketones (Negative) Urine Blood (Negative) Urine Nitrite (Negative) Urine Bilirubin (Negative) Urine Urobilinogen (0.2) mg/dL Ur Leukocyte Esterase (Negative) Urine Microscopic RBC (0-5) /HPF Urine Microscopic WBC (0-5) /HPF Ur Epithelial Cells (None Seen) /HPF Urine Bacteria (None Seen) /HPF Urine Culture Reflexed (NO) Ethyl Alcohol < 10 (0-10) mg/dL Slides for Path Review 01/04/23 01/04/23 Range/Units 23:50 23:40 WBC 6.3 (4.0-10.5) x10^3/uL RBC 3.58 L (4.1-5.6) x10^6/uL Hgb 9.1 L (12.5-18.0) g/dL Hct 29.0 L (42-50) % MCV 81.0 (78-100) fL MCH 25.4 L (26-32) pg MCHC 31.4 L (32-36) g/dL RDW 13.7 (11.5-14.0) % Plt Count 299 (150-450) x10^3/uL MPV 8.4 (7.5-11.0) fL Gran % 77.1 H (36.0-66.0) % Immature Gran % (Auto) 0.3 (0.00-0.4) % Nucleat RBC Rel Count 0.0 (0.00-0.1) % Eos # (Auto) 0.16 (0-0.5) x10^3/uL Immature Gran # (Auto) 0.02 (0.00-0.03) x10^3u/L Absolute Lymphs (auto) 0.41 L (1.0-4.6) x10^3/uL Absolute Monos (auto) 0.84 (0.0-1.3) x10^3/uL Absolute Nucleated RBC 0.00 (0.00-0.01) x10^3u/L Lymphocytes % 6.5 L (24.0-44.0) % Monocytes % 13.3 H (0.0-12.0) % Eosinophils % 2.5 (0.00-5.0) % Basophils % 0.3 (0.0-0.4) % Absolute Granulocytes 4.85 (1.4-6.9) x10^3/uL Basophils # 0.02 (0-0.4) x10^3/uL Sodium (137-145) mmol/L Potassium (3.5-5.1) mmol/L Chloride (98-107) mmol/L Carbon Dioxide (22-30) mmol/L Anion Gap (5-15) MEQ/L BUN (9-20) mg/dL Creatinine (0.66-1.25) mg/dL Estimated GFR ML/MIN Glucose (74-106) mg/dL POC Glucometer (74 to 106) mg/dL Lactic Acid 1.4 (0.4-2.0) Calcium (8.4-10.2) mg/dL Magnesium (1.6-2.3) mg/dL Total Bilirubin (0.2-1.3) mg/dL AST (17-59) U/L ALT (0-50) U/L Alkaline Phosphatase (38-126) U/L Serum Total Protein (6.3-8.2) g/dL Albumin (3.5-5.0) g/dL Urine Color (Yellow) Urine Appearance (Clear) Urine pH (4.6-8.0) Ur Specific [place] (1.005-1.030) Urine Protein (Negative) Urine Glucose (UA) (Negative) mg/dL Urine Ketones (Negative) Urine Blood (Negative) Urine Nitrite (Negative) Urine Bilirubin (Negative) Urine Urobilinogen (0.2) mg/dL Ur Leukocyte Esterase (Negative) Urine Microscopic RBC (0-5) /HPF Urine Microscopic WBC (0-5) /HPF Ur Epithelial Cells (None Seen) /HPF Urine Bacteria (None Seen) /HPF Urine Culture Reflexed (NO) Ethyl Alcohol (0-10) mg/dL Slides for Path Review YES - Progress Progress: improved, re-examined Progress Note: 01/05/23 04:47 I reevaluated this patient. Patient states he is feeling better. I repeated a BMP on this patient and his blood sugar is slowly improving. Patient did have ketones in his urine and he received 1 L of normal saline infusion and we will provide him with another 500 mL of normal saline infusion. We need to make sure that we balance his intravenous intake and provide him with 1 mg of Bumex intravenously so that he is not fluid overloaded. Patient does not undergo repeat dialysis until 01/07/2023. Patient states he is feeling much better and wants to try something to drink. He has antiemetics at home. He prefers to go home. His lactic acid is normal, his white count is normal, he is afebrile, his CO2 is normal. He does have slightly elevated anion gap. We will follow him clinically. If after the 500 mL bolus of normal saline he is not feeling well then we will need to place him in observation. If he is feeling well I think he would do well as an outpatient. I have taken care of this patient several times in this is probably the best he has looked clinically before during and after intervention. This patient's medical issue is 1 of at least moderate complexity. We will reassess him once he has completed his intravenous fluids. 01/05/23 06:08 Patient states that he is feeling better and he wants to go home. We did talk with him about his high blood pressure and he has not taken his medication at this morning. He states that he will take this medication at home. He states that he has antinausea medicine at home. He tolerated clear liquids and he is ready to go home per his desire. Counseled pt/family regarding: lab results, diagnosis Medical Desision Making - Independent Historian Additional History obtained from: Mother - Diagnostic Testing Diagnostic test were ordered, analyzed, and reviewed by me: Yes - Risk of complications Low Risk: Low risk of morbidity from additional dx testing or treatment - Departure Departure Disposition: Home Clinical Impression: Vomiting, Hyperglycemia, Chronic renal failure Condition: Stable Critical Care Time: No Referrals: VALENTINA STARKS [Primary Care Provider] - Follow up/PCP as directed Additional Instructions: Drink plenty of clear liquids before advancing your diet. return to the emergency department if symptoms worsen. The monitor your blood pressure and blood sugars as you do normally daily. Take your medication as prescribed. Call your prescribing physician on 01/07/2023 for further evaluation management
[2023-01-04] MEDS ORDERED: HUMULIN R IV ONE (23:17)
[2023-01-04] MEDS ORDERED: Hydromorphone 1 mg/ml Injection IV ONE (23:25)
[2023-01-04] MEDS ORDERED: TRANDATE 20 MG/4 ML SYRINGE IV ONE ×2 (23:25→23:31)
[2023-01-04] MEDS ORDERED: Zofran 4 MG/2 ML VIAL ONE (23:27)
[2023-01-04] MEDS ORDERED: HUMULIN R ONE (23:28)
[2023-01-04] MEDS ORDERED: Hydromorphone 1 mg/ml Injection ONE (23:31)
[2023-01-04 23:53] LABS: Absolute Neutrophil Ct (ANC) 4.85 x10^3/uL (1.4-6.9); BASOPHIL % 0.3 % (0.0-0.4); Basophil (Absolute #) 0.02 x10^3/uL (0-0.4); Eosinophil % 2.5 % (0.00-5.0); Eosinophil (Absolute #) 0.16 x10^3/uL (0-0.5); Hemoglobin 9.1 g/dL (12.5-18.0); IMMATURE GRAN # 0.02 x10^3u/L (0.00-0.03); IMMATURE GRAN % 0.3 % (0.00-0.4); Lymphocyte (Absolute #) 0.41 x10^3/uL (1.0-4.6); Lymphocytes % 6.5 % (24.0-44.0); Mean Corpuscular Hemoglobin 25.4 pg (26-32); Mean Corpuscular Hgb Concent. 31.4 g/dL (32-36); Mean Platelet Volume 8.4 fL (7.5-11.0); Monocyte (Absolute #) 0.84 x10^3/uL (0.0-1.3); Monocytes % 13.3 % (0.0-12.0); Neutrophil % 77.1 % (36.0-66.0); Platelet Count 299 x10^3/uL (150-450); Red Blood Count 3.58 x10^6/uL (4.1-5.6); Red Cell Distribution Width 13.7 % (11.5-14.0); White Blood Count 6.3 x10^3/uL (4.0-10.5)
[2023-01-05 00:05] LABS: ALBUMIN 4.1 g/dL (3.5-5.0); ALKALINE PHOSPHATASE 105 U/L (38-126); ANION GAP 23.7 MEQ/L (5-15); BLOOD UREA NITROGEN 19 mg/dL (9-20); CHLORIDE 84 mmol/L (98-107); Calcium 8.9 mg/dL (8.4-10.2); Carbon Dioxide 29 mmol/L (22-30); Creatinine 1 2.81 mg/dL (0.66-1.25); EST GLOMERULAR FILTRATION RATE 27.1 ML/MIN; ETHYL ALCOHOL < 10 mg/dL (0-10); Glucose 415 mg/dL (74-106); MAGNESIUM 1.7 mg/dL (1.6-2.3); SGOT/AST 29 U/L (17-59); SGPT/ALT 18 U/L (0-50); SODIUM 133 mmol/L (137-145)
[2023-01-05] MEDS ORDERED: Sodium Chloride 0.9% 1000 ML 1,000 ML ONE (00:48)
[2023-01-05 01:17] LABS: Slide Review 1 YES
[2023-01-05] MEDS ORDERED: TRANDATE 20 MG/4 ML SYRINGE IV ONE ×2 (02:16)
[2023-01-05] MEDS ORDERED: HUMULIN R IV ONE ×2 (03:03→04:46)
[2023-01-05] MEDS ORDERED: HUMULIN R ONE ×2 (03:20→04:54)
[2023-01-05 04:20] LABS: ALBUMIN 3.9 g/dL (3.5-5.0); ANION GAP 23.4 MEQ/L (5-15); BILIRUBIN,TOTAL 0.7 mg/dL (0.2-1.3); Calcium 8.8 mg/dL (8.4-10.2); Creatinine 1 3.27 mg/dL (0.66-1.25); EST GLOMERULAR FILTRATION RATE 22.8 ML/MIN; Potassium 3.6 mmol/L (3.5-5.1); Total Protein 7.1 g/dL (6.3-8.2)
[2023-01-05 04:33] LABS: Appearance Clear (Clear); Bilirubin Negative (Negative); Blood Small (Negative); Epithelial Cells None Seen /HPF (None Seen); Glucose, Urine >=1000 mg/dL (Negative); Ketones 40 (Negative); Leukocyte Esterase Negative (Negative); Nitrite Negative (Negative); Protein,Urine Dip >=1000 (Negative); Specific Gravity 1.025 (1.005-1.030); WBC NONE SEEN /HPF (0-5)
[2023-01-05 04:34] LABS: ADD URINE CULTURE? NO (NO); Bacteria None Seen /HPF (None Seen); RBC 0-2 /HPF (0-5)
[2023-01-05] MEDS ORDERED: Sodium Chloride 0.9% 500 ML 500 ML IV ONE ×2 (04:45→04:54)
[2023-01-05] MEDS ORDERED: BUMEX 1 MG IV ONE (04:46)
[2023-01-05] MEDS ORDERED: BUMEX 1 MG ONE (04:53)
[2023-01-05 06:06] VITALS: BP 198/115; PULSE 104; O2SAT 98
== END 2023-01-05 06:26 | disposition home or self-care (01) ==
LOC: ED 22:58
DX: E10.65 Type 1 diabetes mellitus with hyperglycemia (principal); E10.22 Type 1 diabetes mellitus with diabetic chronic kidney disease; I12.0 Hypertensive chronic kidney disease with stage 5 chronic kidney disease or end stage renal disease; N18.6 End stage renal disease; R11.2 Nausea with vomiting, unspecified; Z99.2 Dependence on renal dialysis; R10.9 Unspecified abdominal pain; E78.5 Hyperlipidemia, unspecified; Z79.899 Other long term (current) drug therapy; Z28.310 Unvaccinated for COVID-19
CPT/HCPCS: 36000; 36415; 80053; 81001; 82077; 82947; 83605; 83735; 85025; 93041; 94760; 96360; 96361; 96374; 96375; 96376; 99285; J1170; J1815; J2405

== ENCOUNTER 2023-01-12 15:37 | Emergency (ER) | payer OTHER ==
--- NOTE | 2023-01-12 16:33 | ERPHSYRPT ---
- History of Present Illness Time Seen by Provider: 01/12/23 16:28 Historian: patient, family Exam Limitations: no limitations Patient Subjective Stated Complaint: hypertension Triage Nursing Assessment: Pt brought to the ER by his mother, hypertensive, tachycardic, rates head and abdominal pain as 02/25, pt now has a dialyis port and has started taking dialysis, pt now wears a blood sugar monitor and states that his sugar has been ok, he's very "blah" and shows no emotion, all over edema, pulses normal, no difficulty breathing Physician History: Pt is a dialysis pt recently and has chronic abd pain sometimes with pancreatitis , brittle insulin dependent Diabetes, and difficult to control hypertension. No current symptoms other than his general abd pain and N/V. he does chew tobacco. abd is generally tender but without mass or peritoneal signs. no reported urinary symptoms or hx for renal stones. fundi benign and neuro exam normal without deficits . no rashes. no known exposures or suspect food poisoning. Discussed rsk/benefits of testing with pt and family CBC, Lipase, Amylase, CT Abd, CMP, Trop EKG, Lactate, as well as tx with zofran, morphine, droperidol, benadryl, IVF , hydralazine, and they wish to proceed. results reviewed with pt and family. No CHest pain, Headache, neuro symptoms, dizziness, SOBreath, - but does have some cardiac hx per family. Timing/Duration: week(s), constant Activities at Onset: none Quality: burning, cramping, sharpness Abdominal Pain Onset Location: epigastric, generalized abdomen Pain Radiation: epigastric Severity of Pain-Max: moderate Severity of Pain-Current: moderate Modifying Factors: Improves With: nothing Associated Symptoms: nausea, vomiting Previous symptoms: same symptoms as today, recent hospitalization, recently treated Allergies/Adverse Reactions: No Known Drug Allergies Allergy (Verified 01/12/23 15:53) Home Medications: Aspirin EC 81 mg [Ecotrin 81 mg] 1 tab PO DAILY 11/29/22 [History] Atorvastatin Calcium [Lipitor 40Mg] 40 mg PO DAILY 11/29/22 [History] Ferrous Sulfate 325 mg [Feosol 325 mg] 1 tab PO BID 11/29/22 [History] Insulin Glargine [Lantus Insulin] 20 unit SQ AMINSULIN 11/29/22 [History] Amlodipine Besylate 10 mg PO DAILY 12/14/22 [History] Bumetanide 2 mg PO DAILY 12/14/22 [History] Carvedilol [Coreg] 25 mg PO BID 12/14/22 [History] Clonidine HCl 0.1 mg [Clonidine 0.1 mg Tablet] 0.3 mg PO TID 12/14/22 [History] Clonidine [Catapres-Tts 3] 1 each TD DAILY 12/14/22 [History] Metolazone 2.5 mg [Zaroxolyn 2.5 MG] 2.5 mg PO DAILY 12/14/22 [History] Hx Tetanus, Diphtheria Vaccination/Date Given: Yes Hx Influenza Vaccination/Date Given: No Hx Pneumococcal Vaccination/Date Given: Yes (10/01/2016) Travel Risk - International Travel Have you traveled outside of the country in past 3 weeks: No - Coronavirus Screening Are you exhibiting any of the following symptoms?: No Close contact with a COVID-19 positive Pt in past 14-21 Days: No - Vaccine Status Have you recieved a Covid-19 vaccination: No - Review of Systems Constitutional: No Fever, No Chills Eyes: No Symptoms Ears, Nose, & Throat: No Symptoms Respiratory: No Cough, No Dyspnea Cardiac: No Chest Pain, No Edema, No Syncope Abdominal/Gastrointestinal: Abdominal Pain, Nausea, Vomiting, No Diarrhea Genitourinary Symptoms: No Dysuria Musculoskeletal: No Back Pain, No Neck Pain Skin: No Rash Neurological: No Dizziness, No Focal Weakness, No Sensory Changes Psychological: No Symptoms Endocrine: No Symptoms Hematologic/Lymphatic: No Symptoms Immunological/Allergic: No Symptoms All Other Systems: Reviewed and Negative - Past Medical History Pertinent Past Medical History: Yes Neurological History: No Pertinent History ENT History: No Pertinent History Cardiac History: High Cholesterol, Hypertension Respiratory History: No Pertinent History Endocrine Medical History: Diabetes Type I Musculoskeletal History: No Pertinent History GI Medical History: No Pertinent History History: Dialysis, Renal Disease Psycho-Social History: Anxiety, Depression Male Reproductive Disorders: No Pertinent History Other Medical History: prior drug use - Past Surgical History Past Surgical History: No Neuro Surgical History: No Pertinent History Cardiac: No Pertinent History Respiratory: No Pertinent History Gastrointestinal: No Pertinent History Genitourinary: No Pertinent History Musculoskeletal: No Pertinent History Male Surgical History: No Pertinent History Other Surgical History: . - Social History Smoking Status: Former smoker How long have you smoked: 1 year Exposure to second hand smoke: No Drug Use: marijuana Patient Lives Alone: No Significant Family History: no pertinent family hx - Nursing Vital Signs Nursing Vital Signs: Initial Vital Signs Temperature 97.1 F 01/12/23 15:45 Pulse Rate 106 H 01/12/23 15:45 Blood Pressure 202/131 01/12/23 15:45 O2 Sat by Pulse Oximetry 100 01/12/23 15:45 Pain Scale Pain Intensity 0 - Physical Exam General Appearance: moderate distress, alert Eye Exam: PERRL/EOMI, eyes nml inspection Ears, Nose, Throat Exam: normal ENT inspection, pharynx normal, moist mucous membranes Neck Exam: normal inspection, non-tender, supple, full range of motion Respiratory Exam: normal breath sounds, lungs clear, No respiratory distress Cardiovascular Exam: regular rate/rhythm, normal heart sounds Gastrointestinal/Abdomen Exam: soft, tenderness, guarding, No mass, No rebound Male Genitalia Exam: normal genitalia Rectal Exam: deferred Back Exam: normal inspection, normal range of motion, No CVA tenderness, No vertebral tenderness Extremity Exam: normal inspection, normal range of motion, pelvis stable Neurologic Exam: alert, oriented x 3, cooperative, normal mood/affect, nml cerebellar function, sensation nml, No motor deficits Skin Exam: normal color, warm, dry SpO2 Interpretation: normal SpO2: 100 O2 Delivery: Room Air - Course Nursing assessment & vital signs reviewed: Yes EKG Interpreted by Me: Sinus Tach, NORMAL AXIS, prolonged QT interval, NORMAL QRS, Non-specific ST Changes, Other (early repol/st elev) - CT Exams Abdomen/Pelvis CT Interpretation: Tele-radiologist Report, No appendicitis, Other (atrophied pancreas, SQ skin attenuation( but nontender on exam ) Pulm nodule right) Ordered Tests: Active Orders 24 hr Category Date Time Status EKG-ER Only STAT Care 01/12/23 16:39 Active IV Insertion STAT Care 01/12/23 16:39 Active ABDOMEN AND PELVIS W/0 CONTRAS [CT] Stat Exams 01/12/23 16:39 Completed AMYLASE Stat Lab 01/12/23 17:00 Completed CBC W DIFF Stat Lab 01/12/23 17:00 Completed CMP Stat Lab 01/12/23 17:00 Completed CULTURE,URINE Stat Lab 01/12/23 16:54 Received LIPASE Stat Lab 01/12/23 17:00 Completed Lactic Acid Stat Lab 01/12/23 16:55 Completed TROPONIN Q4H Lab 01/12/23 17:00 Completed TROPONIN Q4H Lab 01/12/23 20:45 Ordered TROPONIN Q4H Lab 01/13/23 00:45 Ordered UA W/RFX UR CULTURE Stat Lab 01/12/23 16:54 Completed Medication Summary Generic Name Dose Route Start Last Admin Trade Name Freq PRN Reason Stop Dose Admin Sodium Chloride 1,000 mls @ 100 mls/hr 01/12/23 16:45 01/12/23 17:02 Sodium Chloride 0.9% 1000 Ml IV 02/11/23 16:44 100 mls/hr .Q10H XIN Administration Discontinued Medications Generic Name Dose Route Start Last Admin Trade Name Freq PRN Reason Stop Dose Admin Diphenhydramine HCl 25 mg 01/12/23 16:41 01/12/23 17:02 Diphenhydramine Hcl 50 Mg/Ml Vial IV 01/12/23 16:42 25 mg STAT ONE Administration Diphenhydramine HCl Confirm 01/12/23 16:56 Diphenhydramine Hcl 50 Mg/Ml Vial Administered 01/12/23 16:57 Dose 50 mg .ROUTE .STK-MED ONE Droperidol 1.25 mg 01/12/23 16:39 01/12/23 17:03 Droperidol 5 Mg/2 Ml Vial IV 01/12/23 16:40 1.25 mg STAT ONE Administration Droperidol Confirm 01/12/23 16:56 Droperidol 5 Mg/2 Ml Vial Administered 01/12/23 16:57 Dose 5 mg .ROUTE .STK-MED ONE Famotidine 20 mg 01/12/23 16:39 01/12/23 17:02 Famotidine 20 Mg/1 Vial IV 01/12/23 16:40 20 mg STAT ONE Administration Famotidine Confirm 01/12/23 16:56 Famotidine 20 Mg/1 Vial Administered 01/12/23 16:57 Dose 20 mg IV .STK-MED ONE Hydralazine HCl 20 mg 01/12/23 16:41 01/12/23 17:02 Hydralazine Hcl 20 Mg/Ml Vial IV 01/12/23 16:42 20 mg STAT ONE Administration Hydralazine HCl Confirm 01/12/23 16:56 Hydralazine Hcl 20 Mg/Ml Vial Administered 01/12/23 16:57 Dose 20 mg .ROUTE .STK-MED ONE Morphine Sulfate 4 mg 01/12/23 16:39 01/12/23 17:03 Morphine Sulfate 4 Mg/Ml Injection IV 01/12/23 16:40 4 mg STAT ONE Administration Morphine Sulfate Confirm 01/12/23 16:56 Morphine Sulfate 4 Mg/Ml Injection Administered 01/12/23 16:57 Dose 4 mg .ROUTE .STK-MED ONE Ondansetron HCl 4 mg 01/12/23 16:39 01/12/23 17:03 Ondansetron Hcl 4 Mg/2 Ml Vial IV 01/12/23 16:40 4 mg STAT ONE Administration Ondansetron HCl Confirm 01/12/23 16:56 Ondansetron Hcl 4 Mg/2 Ml Vial Administered 01/12/23 16:57 Dose 4 mg .ROUTE .STK-MED ONE Pantoprazole Sodium 40 mg 01/12/23 16:39 01/12/23 17:03 Pantoprazole 40 Mg Vial IV 01/12/23 16:40 40 mg STAT ONE Administration Pantoprazole Sodium Confirm 01/12/23 16:56 Pantoprazole 40 Mg Vial Administered 01/12/23 16:57 Dose 40 mg IV .STK-MED ONE Lab/Rad Data: Laboratory Result Diagrams 01/12/23 17:00 01/12/23 17:00 Laboratory Results 01/12/23 01/12/23 01/12/23 Range/Units 17:00 17:00 17:00 WBC 5.6 (4.0-10.5) x10^3/uL RBC 3.99 L (4.1-5.6) x10^6/uL Hgb 10.1 L (12.5-18.0) g/dL Hct 31.8 L (42-50) % MCV 79.7 (78-100) fL MCH 25.3 L (26-32) pg MCHC 31.8 L (32-36) g/dL RDW 14.4 H (11.5-14.0) % Plt Count 314 (150-450) x10^3/uL MPV 8.2 (7.5-11.0) fL Gran % 64.9 (36.0-66.0) % Immature Gran % (Auto) 0.2 (0.00-0.4) % Nucleat RBC Rel Count 0.0 (0.00-0.1) % Eos # (Auto) 0.31 (0-0.5) x10^3/uL Immature Gran # (Auto) 0.01 (0.00-0.03) x10^3u/L Absolute Lymphs (auto) 0.76 L (1.0-4.6) x10^3/uL Absolute Monos (auto) 0.85 (0.0-1.3) x10^3/uL Absolute Nucleated RBC 0.00 (0.00-0.01) x10^3u/L Lymphocytes % 13.6 L (24.0-44.0) % Monocytes % 15.3 H (0.0-12.0) % Eosinophils % 5.6 H (0.00-5.0) % Basophils % 0.4 (0.0-0.4) % Absolute Granulocytes 3.62 (1.4-6.9) x10^3/uL Basophils # 0.02 (0-0.4) x10^3/uL Sodium 132 L (137-145) mmol/L Potassium 4.8 (3.5-5.1) mmol/L Chloride 91 L (98-107) mmol/L Carbon Dioxide 32 H (22-30) mmol/L Anion Gap 14.6 (5-15) MEQ/L BUN 26 H (9-20) mg/dL Creatinine 2.94 H (0.66-1.25) mg/dL Estimated GFR 25.7 ML/MIN Glucose 277 H (74-106) mg/dL Lactic Acid (0.4-2.0) Calcium 9.3 (8.4-10.2) mg/dL Total Bilirubin 0.70 (0.2-1.3) mg/dL AST 32 (17-59) U/L ALT 18 (0-50) U/L Alkaline Phosphatase 101 (38-126) U/L Troponin I 0.018 (0.000-0.034) ng/mL Serum Total Protein 7.4 (6.3-8.2) g/dL Albumin 4.0 (3.5-5.0) g/dL Amylase 92 (30-110) U/L Lipase 13 L (23-300) U/L Urine Color (Yellow) Urine Appearance (Clear) Urine pH (4.6-8.0) Ur Specific [place] (1.005-1.030) Urine Protein (Negative) Urine Glucose (UA) (Negative) mg/dL Urine Ketones (Negative) Urine Blood (Negative) Urine Nitrite (Negative) Urine Bilirubin (Negative) Urine Urobilinogen (0.2) mg/dL Ur Leukocyte Esterase (Negative) U Hyaline Cast (Auto) (0-2) /LPF Urine Microscopic RBC (0-5) /HPF Urine Microscopic WBC (0-5) /HPF Ur Epithelial Cells (None Seen) /HPF Urine Bacteria (None Seen) /HPF Urine Culture Reflexed (NO) 01/12/23 01/12/23 Range/Units 16:55 16:54 WBC (4.0-10.5) x10^3/uL RBC (4.1-5.6) x10^6/uL Hgb (12.5-18.0) g/dL Hct (42-50) % MCV (78-100) fL MCH (26-32) pg MCHC (32-36) g/dL RDW (11.5-14.0) % Plt Count (150-450) x10^3/uL MPV (7.5-11.0) fL Gran % (36.0-66.0) % Immature Gran % (Auto) (0.00-0.4) % Nucleat RBC Rel Count (0.00-0.1) % Eos # (Auto) (0-0.5) x10^3/uL Immature Gran # (Auto) (0.00-0.03) x10^3u/L Absolute Lymphs (auto) (1.0-4.6) x10^3/uL Absolute Monos (auto) (0.0-1.3) x10^3/uL Absolute Nucleated RBC (0.00-0.01) x10^3u/L Lymphocytes % (24.0-44.0) % Monocytes % (0.0-12.0) % Eosinophils % (0.00-5.0) % Basophils % (0.0-0.4) % Absolute Granulocytes (1.4-6.9) x10^3/uL Basophils # (0-0.4) x10^3/uL Sodium (137-145) mmol/L Potassium (3.5-5.1) mmol/L Chloride (98-107) mmol/L Carbon Dioxide (22-30) mmol/L Anion Gap (5-15) MEQ/L BUN (9-20) mg/dL Creatinine (0.66-1.25) mg/dL Estimated GFR ML/MIN Glucose (74-106) mg/dL Lactic Acid 1.6 (0.4-2.0) Calcium (8.4-10.2) mg/dL Total Bilirubin (0.2-1.3) mg/dL AST (17-59) U/L ALT (0-50) U/L Alkaline Phosphatase (38-126) U/L Troponin I (0.000-0.034) ng/mL Serum Total Protein (6.3-8.2) g/dL Albumin (3.5-5.0) g/dL Amylase (30-110) U/L Lipase (23-300) U/L Urine Color Yellow (Yellow) Urine Appearance Clear (Clear) Urine pH 8.5 A (4.6-8.0) Ur Specific [place] 1.020 (1.005-1.030) Urine Protein >=1000 A (Negative) Urine Glucose (UA) 500 A (Negative) mg/dL Urine Ketones 15 A (Negative) Urine Blood NHT (Negative) Urine Nitrite Negative (Negative) Urine Bilirubin Negative (Negative) Urine Urobilinogen 0.2 (0.2) mg/dL Ur Leukocyte Esterase Negative (Negative) U Hyaline Cast (Auto) NONE SEEN (0-2) /LPF Urine Microscopic RBC 11-20 A (0-5) /HPF Urine Microscopic WBC 0-2 (0-5) /HPF Ur Epithelial Cells None Seen (None Seen) /HPF Urine Bacteria None Seen (None Seen) /HPF Urine Culture Reflexed YES (NO) - Progress Progress: improved, re-examined Progress Note: 01/12/23 19:50 pt has slightly detectable trop but also has renal failure and this effects that level and has no CP and no symptoms at this time, discussed with family, including risk for undetected DE and , and they wish to followup outpt rather than stay for more testing and this is reasonable in the absence of any current symptoms and they have the capacity to make this choice. . Discussed risks/benefits with family and they prefer DC with outpt f/u rather than further eval/Tx in ER or hospital at this time and are aware that we did not find a cause for his pain and that something serious could be evolving as yet undetected. they have the capacity to make this choice. 01/12/23 19:54 01/12/23 19:59 symptoms have all resolved and pt wishes to go home with outpt f/u and has the capacity to make this choice. repeat exam is benign without any residual abdominal tenderness . the concerning area on CT in SQ correlated to old injection callouses frrom insulin on the SQ abd right side. 01/12/23 20:01 BP is in 130-150 range now and again no symptoms. 01/12/23 20:07 01/12/23 20:14 Counseled pt/family regarding: lab results, diagnosis, need for follow-up, rad results Medical Desision Making - Independent Historian Additional History obtained from: Family - Diagnostic Testing Diagnostic test were ordered, analyzed, and reviewed by me: Yes Radiological Interpretation: Teleradiologist Report - Risk of complications The pt has a mod risk of morbidity or mortality based on: Need for prescription drug management - Departure Departure Disposition: Home Clinical Impression: Abdominal pain, Chronic renal insufficiency, Abdominal pain of unknown etiology, Hypertensive urgency, Nodule of right lung Condition: Good Critical Care Time: No Referrals: VALENTINA STARKS [Primary Care Provider] - Follow up/PCP as directed Instructions: Abdominal Pain, Adult ED, Nausea and Vomiting, Adult (DC), Pulmonary Nodule Additional Instructions: We have not yet determined a cause for your abdominal pain so continued followup with your Drs. is important. There could be serious conditions causing your symptoms that have not been de tected yet , even on CT scan and are developing so this is another reason to see your Dr. s Return meantime if symptoms recur or any other concerns. THere is a small lung nodule on the right also to see your Dr. to check out. continue to see your Dr.s for your kidneys and blood pressure and heart. As discussed although the kedneys may cause elevated troponin heart test enzyme and may be normal for you - that can also represent an otherwise undetected heart problem and should be checked into further with your drs due to your risks, but we respect your choice to pursue this as an outpt wihtout staying in hospital and in the absence of any persisting symptoms.
[2023-01-12] MEDS ORDERED: Pepcid 20 MG VIAL IV ONE ×2 (16:39→16:56)
[2023-01-12] MEDS ORDERED: PROTONIX 40 MG IV IV ONE ×2 (16:39→16:56)
[2023-01-12] MEDS ORDERED: Zofran 4 MG/2 ML VIAL IV ONE (16:39)
[2023-01-12] MEDS ORDERED: MORPHINE SULFATE 4 MG INJ IV ONE (16:39)
[2023-01-12] MEDS ORDERED: APRESOLINE 20 MG/ML INJ IV ONE (16:41)
[2023-01-12] MEDS ORDERED: BENADRYL 50 MG/ML IV ONE (16:41)
[2023-01-12] MEDS ORDERED: Sodium Chloride 0.9% 1000 ML 1,000 ML IV SCH (16:45)
[2023-01-12] MEDS ORDERED: Zofran 4 MG/2 ML VIAL ONE (16:56)
[2023-01-12] MEDS ORDERED: BENADRYL 50 MG/ML ONE (16:56)
[2023-01-12] MEDS ORDERED: Sodium Chloride 0.9% 1000 ML 1,000 ML ONE (16:56)
[2023-01-12] MEDS ORDERED: MORPHINE SULFATE 4 MG INJ ONE (16:56)
[2023-01-12] MEDS ORDERED: APRESOLINE 20 MG/ML INJ ONE (16:56)
[2023-01-12 17:04] LABS: Absolute Neutrophil Ct (ANC) 3.62 x10^3/uL (1.4-6.9); BASOPHIL % 0.4 % (0.0-0.4); Basophil (Absolute #) 0.02 x10^3/uL (0-0.4); Eosinophil % 5.6 % (0.00-5.0); Eosinophil (Absolute #) 0.31 x10^3/uL (0-0.5); Hematocrit 31.8 % (42-50); Hemoglobin 10.1 g/dL (12.5-18.0); IMMATURE GRAN # 0.01 x10^3u/L (0.00-0.03); IMMATURE GRAN % 0.2 % (0.00-0.4); Lymphocyte (Absolute #) 0.76 x10^3/uL (1.0-4.6); Lymphocytes % 13.6 % (24.0-44.0); Mean Cell Volume 79.7 fL (78-100); Mean Corpuscular Hemoglobin 25.3 pg (26-32); Mean Corpuscular Hgb Concent. 31.8 g/dL (32-36); Mean Platelet Volume 8.2 fL (7.5-11.0); Monocyte (Absolute #) 0.85 x10^3/uL (0.0-1.3); Monocytes % 15.3 % (0.0-12.0); Neutrophil % 64.9 % (36.0-66.0); Platelet Count 314 x10^3/uL (150-450); Red Blood Count 3.99 x10^6/uL (4.1-5.6); Red Cell Distribution Width 14.4 % (11.5-14.0); White Blood Count 5.6 x10^3/uL (4.0-10.5)
[2023-01-12 17:11] LABS: Appearance Clear (Clear); Bacteria None Seen /HPF (None Seen); Bilirubin Negative (Negative); Blood NHT (Negative); Epithelial Cells None Seen /HPF (None Seen); Glucose, Urine 500 mg/dL (Negative); Hyaline Casts NONE SEEN /LPF (0-2); Ketones 15 (Negative); Leukocyte Esterase Negative (Negative); Nitrite Negative (Negative); Ph 8.5 (4.6-8.0); Protein,Urine Dip >=1000 (Negative); Urobilinogen 0.2 mg/dL (0.2); WBC 0-2 /HPF (0-5)
[2023-01-12 17:16] LABS: ADD URINE CULTURE? YES (NO)
[2023-01-12 17:17] LABS: ANION GAP 14.6 MEQ/L (5-15); BILIRUBIN,TOTAL 0.7 mg/dL (0.2-1.3); Calcium 9.3 mg/dL (8.4-10.2); Creatinine 1 2.94 mg/dL (0.66-1.25); EST GLOMERULAR FILTRATION RATE 25.7 ML/MIN; Potassium 4.8 mmol/L (3.5-5.1); Total Protein 7.4 g/dL (6.3-8.2)
--- NOTE | 2023-01-12 18:30 | XRAY ---
CLINICAL HISTORY:Abd pain, hx pancreatitis; COMPARISON:None; TECHNIQUES:Contiguous, multislice, non-enhanced CT scan of the abdomen and pelvis was performed in the axial plane with multiplanar reconstructions. Total DLP-267.51 mGy*cm; CTDI-5.17 mGy; FINDINGS: Limited organ parenchymal evaluation within the limitations of non-contrast study. Liver is mildly enlarged in size measuring about 18 cm in craniocaudal axis showing homogeneous attenuation with no obvious focal lesion within the limitations of non-contrast study. Gallbladder shows no definite calculi inside. Pancreas appear atrophied, sequelae of prior pancreatic insult. Spleen appear unremarkable. No adrenal mass. Both kidneys appear normal in sizes, shows normal contour and attenuation. No calculus, mass or hydronephrosis in either kidneys. No ascites. No para-aortic lymphadenopathy. Multiple bilateral inguinal lymph nodes seen, largest on right side measuring about 15 mm. Mild atherosclerotic calcification of abdominal aorta and iliac vessels. Imaged bowel structures appear unremarkable. No significant bowel wall thickening. No bowel dilatation. Partially filled urinary bladder, appear free from intraluminal stones, mass or diverticular outpouching. Normal-sized prostate showing homogeneous attenuation. No acute osseous abnormality or suspicious bony lesions. Subtle anterolisthesis of L5 over S1. Mild posterior disc bulge at L5-S1 level. There is soft tissue attenuation areas in the subcutaneous fat plane in the right lower abdomen. Few linear high-density attenuation seen within the soft tissue attenuation. Visualized sections of lower chest show 5 mm subpleural nodule in the right lower lobe. IMPRESSION: Limited organ parenchymal evaluation within the limitations of non-contrast study. Atrophied pancreas, sequelae of prior pancreatic insult. Mild hepatomegaly. Soft tissue attenuation areas subcutaneous located in the right lower abdomen, could be representing subcutaneous infection. Electronically Signed by: Davion Ayala MD. (01/12/2023 17:24:23 MA[employer]GER [employer])
[2023-01-12 20:29] VITALS: BP 171/106; PULSE 96; O2SAT 97
== END 2023-01-12 20:32 | disposition home or self-care (01) ==
LOC: ED 15:37
DX: R10.9 Unspecified abdominal pain (principal); I16.0 Hypertensive urgency; I12.0 Hypertensive chronic kidney disease with stage 5 chronic kidney disease or end stage renal disease; N18.6 End stage renal disease; R91.1 Solitary pulmonary nodule; E10.22 Type 1 diabetes mellitus with diabetic chronic kidney disease; R11.2 Nausea with vomiting, unspecified; E78.5 Hyperlipidemia, unspecified; Z79.899 Other long term (current) drug therapy; Z28.310 Unvaccinated for COVID-19
CPT/HCPCS: 36000; 36415; 74176; 80053; 81001; 82150; 83605; 83690; 84484; 85025; 87086; 93005; 96374; 96375; 99284; J0360; J1200; J2270; J2405

== ENCOUNTER 2023-02-09 20:51 | Emergency (ER) | payer OTHER ==
[2023-02-09] MEDS ORDERED: Sodium Chloride 0.9% 1000 ML 1,000 ML IV STA (21:04)
[2023-02-09] MEDS ORDERED: Zofran 4 MG/2 ML VIAL IV ONE (21:17)
[2023-02-09] MEDS ORDERED: Sodium Chloride 0.9% 1000 ML 1,000 ML ONE (21:18)
[2023-02-09] MEDS ORDERED: Zofran 4 MG/2 ML VIAL ONE (21:18)
[2023-02-09 21:28] LABS: Absolute Neutrophil Ct (ANC) 10.23 x10^3/uL (1.4-6.9); BASOPHIL % 0.4 % (0.0-0.4); Basophil (Absolute #) 0.05 x10^3/uL (0-0.4); Eosinophil % 0.2 % (0.00-5.0); Eosinophil (Absolute #) 0.03 x10^3/uL (0-0.5); Hematocrit 39.4 % (42-50); Hemoglobin 12.8 g/dL (12.5-18.0); IMMATURE GRAN # 0.03 x10^3u/L (0.00-0.03); IMMATURE GRAN % 0.2 % (0.00-0.4); Lymphocyte (Absolute #) 0.94 x10^3/uL (1.0-4.6); Lymphocytes % 7.7 % (24.0-44.0); Mean Cell Volume 82.9 fL (78-100); Mean Corpuscular Hemoglobin 26.9 pg (26-32); Mean Corpuscular Hgb Concent. 32.5 g/dL (32-36); Mean Platelet Volume 8.3 fL (7.5-11.0); Monocyte (Absolute #) 0.87 x10^3/uL (0.0-1.3); Monocytes % 7.2 % (0.0-12.0); Neutrophil % 84.3 % (36.0-66.0); Platelet Count 468 x10^3/uL (150-450); Red Blood Count 4.75 x10^6/uL (4.1-5.6); Red Cell Distribution Width 17.8 % (11.5-14.0); White Blood Count 12.2 x10^3/uL (4.0-10.5)
--- NOTE | 2023-02-09 21:35 | ERPHSYRPT ---
- History of Present Illness Time Seen by Provider: 02/09/23 21:33 Source: patient Exam Limitations: no limitations Patient Subjective Stated Complaint: pt reports n/v for 2 days as well as abd pain, had dialysis yesterday Triage Nursing Assessment: pt is aox3, pupils perrl, afebrile, resps easy and non labored, radial pulses strong and equal, cap refill < 3 seconds, pt abd soft, bowel sounds present, pt skin pale, sandoval in color, warm dry. Physician History: pt reports n/v for 2 days as well as abd pain, had dialysis yesterday Patient is 37-year-old male with history of diabetic nephropathy with chronic renal disease for which patient is on dialysis has multiple ER visit for nausea vomiting. Patient started having a vomiting since today morning. Patient did got his dialysis yesterday. Timing/Duration: today Severity: moderate Associated Symptoms: nausea, vomiting Allergies/Adverse Reactions: No Known Drug Allergies Allergy (Verified 01/12/23 15:53) Home Medications: Aspirin EC 81 mg [Ecotrin 81 mg] 1 tab PO DAILY 11/29/22 [History] Atorvastatin Calcium [Lipitor 40Mg] 40 mg PO DAILY 11/29/22 [History] Ferrous Sulfate 325 mg [Feosol 325 mg] 1 tab PO BID 11/29/22 [History] Insulin Glargine [Lantus Insulin] 20 unit SQ AMINSULIN 11/29/22 [History] Amlodipine Besylate 10 mg PO DAILY 12/14/22 [History] Bumetanide 2 mg PO DAILY 12/14/22 [History] Carvedilol [Coreg] 25 mg PO BID 12/14/22 [History] Clonidine HCl 0.1 mg [Clonidine 0.1 mg Tablet] 0.3 mg PO TID 12/14/22 [History] Clonidine [Catapres-Tts 3] 1 each TD DAILY 12/14/22 [History] Metolazone 2.5 mg [Zaroxolyn 2.5 MG] 2.5 mg PO DAILY 12/14/22 [History] Hx Tetanus, Diphtheria Vaccination/Date Given: Yes Hx Influenza Vaccination/Date Given: No Hx Pneumococcal Vaccination/Date Given: No Immunizations Up to Date: Yes Travel Risk - International Travel Have you traveled outside of the country in past 3 weeks: No - Coronavirus Screening Are you exhibiting any of the following symptoms?: No - Vaccine Status Have you recieved a Covid-19 vaccination: No - Review of Systems Constitutional: Lethargy, Malaise, No Fever, No Chills Eyes: No Symptoms Ears, Nose, & Throat: No Symptoms Respiratory: No Cough, No Dyspnea Cardiac: No Chest Pain, No Edema, No Syncope Abdominal/Gastrointestinal: Nausea, Vomiting, No Abdominal Pain, No Diarrhea Genitourinary Symptoms: No Dysuria Musculoskeletal: No Back Pain, No Neck Pain Skin: No Rash Neurological: No Dizziness, No Focal Weakness, No Sensory Changes Psychological: No Symptoms Endocrine: No Symptoms All Other Systems: Reviewed and Negative - Past Medical History Pertinent Past Medical History: Yes Neurological History: No Pertinent History ENT History: No Pertinent History Cardiac History: High Cholesterol, Hypertension Respiratory History: No Pertinent History Endocrine Medical History: Diabetes Type I Musculoskeletal History: No Pertinent History GI Medical History: No Pertinent History History: Dialysis, Renal Disease Psycho-Social History: Anxiety, Depression Male Reproductive Disorders: No Pertinent History Other Medical History: prior drug use - Past Surgical History Past Surgical History: No Neuro Surgical History: No Pertinent History Cardiac: No Pertinent History Respiratory: No Pertinent History Gastrointestinal: No Pertinent History Genitourinary: No Pertinent History Musculoskeletal: No Pertinent History Male Surgical History: No Pertinent History Other Surgical History: . - Social History Smoking Status: Former smoker How long have you smoked: 1 year Exposure to second hand smoke: No Drug Use: none Patient Lives Alone: No Significant Family History: no pertinent family hx - Nursing Vital Signs Nursing Vital Signs: Initial Vital Signs Temperature 97.5 F 02/09/23 20:55 Pulse Rate 131 H 02/09/23 20:55 Respiratory Rate 22 02/09/23 20:55 Blood Pressure 137/95 02/09/23 20:55 O2 Sat by Pulse Oximetry 98 02/09/23 20:55 Pain Scale Pain Intensity 8 - Physical Exam General Appearance: no apparent distress, alert Eye Exam: PERRL/EOMI, eyes nml inspection Ears, Nose, Throat Exam: normal ENT inspection, TMs normal, pharynx normal, moist mucous membranes Neck Exam: normal inspection, non-tender, supple, full range of motion Respiratory Exam: normal breath sounds, lungs clear, No respiratory distress Cardiovascular Exam: regular rate/rhythm, normal heart sounds, normal peripheral pulses Gastrointestinal/Abdomen Exam: soft, normal bowel sounds, No tenderness, No mass Back Exam: normal inspection, normal range of motion, No CVA tenderness, No vertebral tenderness Extremity Exam: normal inspection, normal range of motion, pelvis stable Neurologic Exam: alert, oriented x 3, cooperative, normal mood/affect, nml cerebellar function, nml station & gait, sensation nml, No motor deficits Skin Exam: normal color, warm, dry, No rash Lymphatic Exam: No adenopathy SpO2: 98 - Course Nursing assessment & vital signs reviewed: Yes Ordered Tests: Active Orders 24 hr Category Date Time Status Wireline Operator STAT Care 02/09/23 21:16 Active EKG-ER Only STAT Care 02/09/23 21:16 Active IV Insertion STAT Care 02/09/23 21:16 Active POCT Glucose Check STAT Care 02/09/23 21:04 Active CBC W DIFF Stat Lab 02/09/23 21:24 Completed CMP Stat Lab 02/09/23 21:24 Completed ETHYL ALCOHOL Stat Lab 02/09/23 21:24 Completed Lactic Acid Urgent Lab 02/09/23 21:04 Completed MAGNESIUM Stat Lab 02/09/23 21:24 Completed POCT GLUCOSE Stat Lab 02/09/23 21:13 Completed Medication Summary Discontinued Medications Generic Name Dose Route Start Last Admin Trade Name Kelsie PRN Reason Stop Dose Admin Sodium Chloride 1,000 mls @ 999 mls/hr 02/09/23 21:04 02/09/23 22:29 Sodium Chloride 0.9% 1000 Ml IV 02/09/23 22:04 999 mls/hr .Q1H1M STA Infusion Sodium Chloride Confirm 02/09/23 21:18 Sodium Chloride 0.9% 1000 Ml Administered 02/09/23 21:19 Dose 1,000 mls @ ud .ROUTE .STK-MED ONE Ondansetron HCl 4 mg 02/09/23 21:17 02/09/23 21:20 Ondansetron Hcl 4 Mg/2 Ml Vial IV 02/09/23 21:18 4 mg STAT ONE Administration Ondansetron HCl Confirm 02/09/23 21:18 Ondansetron Hcl 4 Mg/2 Ml Vial Administered 02/09/23 21:19 Dose 4 mg .ROUTE .STK-MED ONE Lab/Rad Data: Laboratory Result Diagrams 02/09/23 21:24 02/09/23 21:24 Laboratory Results 02/09/23 02/09/23 02/09/23 Range/Units 21:24 21:24 21:13 WBC 12.2 H (4.0-10.5) x10^3/uL RBC 4.75 (4.1-5.6) x10^6/uL Hgb 12.8 (12.5-18.0) g/dL Hct 39.4 L (42-50) % MCV 82.9 (78-100) fL MCH 26.9 (26-32) pg MCHC 32.5 (32-36) g/dL RDW 17.8 H (11.5-14.0) % Plt Count 468 H (150-450) x10^3/uL MPV 8.3 (7.5-11.0) fL Gran % 84.3 H (36.0-66.0) % Immature Gran % (Auto) 0.2 (0.00-0.4) % Nucleat RBC Rel Count 0.0 (0.00-0.1) % Eos # (Auto) 0.03 (0-0.5) x10^3/uL Immature Gran # (Auto) 0.03 (0.00-0.03) x10^3u/L Absolute Lymphs (auto) 0.94 L (1.0-4.6) x10^3/uL Absolute Monos (auto) 0.87 (0.0-1.3) x10^3/uL Absolute Nucleated RBC 0.00 (0.00-0.01) x10^3u/L Lymphocytes % 7.7 L (24.0-44.0) % Monocytes % 7.2 (0.0-12.0) % Eosinophils % 0.2 (0.00-5.0) % Basophils % 0.4 (0.0-0.4) % Absolute Granulocytes 10.23 H (1.4-6.9) x10^3/uL Basophils # 0.05 (0-0.4) x10^3/uL Sodium 137 (137-145) mmol/L Potassium 4.6 (3.5-5.1) mmol/L Chloride 83 L (98-107) mmol/L Carbon Dioxide 33 H (22-30) mmol/L Anion Gap 26.3 H (5-15) MEQ/L BUN 39 H (9-20) mg/dL Creatinine 5.56 H (0.66-1.25) mg/dL Estimated GFR 12.3 ML/MIN Glucose 193 H (74-106) mg/dL POC Glucometer 183 H (74 to 106) mg/dL Lactic Acid (0.4-2.0) Calcium 10.5 H (8.4-10.2) mg/dL Magnesium 2.6 H (1.6-2.3) mg/dL Total Bilirubin 1.00 (0.2-1.3) mg/dL AST 39 (17-59) U/L ALT 24 (0-50) U/L Alkaline Phosphatase 136 H (38-126) U/L Serum Total Protein 9.1 H (6.3-8.2) g/dL Albumin 4.9 (3.5-5.0) g/dL Ethyl Alcohol < 10 (0-10) mg/dL 02/09/23 Range/Units 21:04 WBC (4.0-10.5) x10^3/uL RBC (4.1-5.6) x10^6/uL Hgb (12.5-18.0) g/dL Hct (42-50) % MCV (78-100) fL MCH (26-32) pg MCHC (32-36) g/dL RDW (11.5-14.0) % Plt Count (150-450) x10^3/uL MPV (7.5-11.0) fL Gran % (36.0-66.0) % Immature Gran % (Auto) (0.00-0.4) % Nucleat RBC Rel Count (0.00-0.1) % Eos # (Auto) (0-0.5) x10^3/uL Immature Gran # (Auto) (0.00-0.03) x10^3u/L Absolute Lymphs (auto) (1.0-4.6) x10^3/uL Absolute Monos (auto) (0.0-1.3) x10^3/uL Absolute Nucleated RBC (0.00-0.01) x10^3u/L Lymphocytes % (24.0-44.0) % Monocytes % (0.0-12.0) % Eosinophils % (0.00-5.0) % Basophils % (0.0-0.4) % Absolute Granulocytes (1.4-6.9) x10^3/uL Basophils # (0-0.4) x10^3/uL Sodium (137-145) mmol/L Potassium (3.5-5.1) mmol/L Chloride (98-107) mmol/L Carbon Dioxide (22-30) mmol/L Anion Gap (5-15) MEQ/L BUN (9-20) mg/dL Creatinine (0.66-1.25) mg/dL Estimated GFR ML/MIN Glucose (74-106) mg/dL POC Glucometer (74 to 106) mg/dL Lactic Acid 3.8 H (0.4-2.0) Calcium (8.4-10.2) mg/dL Magnesium (1.6-2.3) mg/dL Total Bilirubin (0.2-1.3) mg/dL AST (17-59) U/L ALT (0-50) U/L Alkaline Phosphatase (38-126) U/L Serum Total Protein (6.3-8.2) g/dL Albumin (3.5-5.0) g/dL Ethyl Alcohol (0-10) mg/dL - Progress Progress: improved Counseled pt/family regarding: lab results, diagnosis, need for follow-up Medical Desision Making - Risk of complications The pt has a mod risk of morbidity or mortality based on: Diagnosis or treatment limited by [facility] - Departure Departure Disposition: Home Clinical Impression: Vomiting Qualifiers: Vomiting type: unspecified Nausea presence: with nausea Qualified Code(s): R11.2 - Nausea with vomiting, unspecified Chronic renal disease Qualifiers: Chronic kidney disease stage: on chronic dialysis Qualified Code(s): N18.6 - End stage renal disease; Z99.2 - Dependence on renal dialysis DM (diabetes mellitus), type 1, uncontrolled Qualifiers: Glycemic state: with hyperglycemia Qualified Code(s): E10.65 - Type 1 diabetes mellitus with hyperglycemia Condition: Stable Critical Care Time: Yes Critical Care Time(excluding separately billable procedures): Critical 30-74 mins Referrals: VALENTINA STARKS [Primary Care Provider] - Follow up/PCP as directed Instructions: Dehydration, Adult (DC) Additional Instructions: Discharge/Care Plan ANALIA BONNER was seen on 02/09/23 in the Emergency Room. The patient was counseled regarding Diagnosis,Lab results, Imaging studies, need for follow up and when to return to the Emergency Room. Prescriptions given: Discharge Note I have spoken with the patient and/or caregivers. I have explained the patient's condition, diagnosis and treatment plan based on the information available to me at this time. I have answered the patient's and/or caregiver's questions and addressed any concerns. The patient and/or caregivers have as good understanding of the patient's diagnosis, condition and treatment plan as can be expected at this point. The vital signs have been stable. The patient's condition is stable and appropriate for discharge from the emergency department. The patient will pursue further outpatient evaluation with the primary care physician or other designated or consulting physician as outlined in the discharge instructions. The patient and/or caregivers are agreeable to this plan of care and follow-up instructions have been explained in detail. The patient and/or caregivers have received these instruction. The patient/and or caregivers are aware that any significant change in condition or worsening of symptoms should prompt an immediate return to this or the closest emergency department or call 911. ANALIA BONNER was seen on 02/09/23 n the Emergency Room. At that time you were treated for an emergent condition, during your visit Laboratory, R adiology and/or other procedures may have been ordered. It is very important that you follow-up with your Primary Care Physician VALENTINA STARKS within the next 24-48 hours to review your Emergency Room visit and the final results of testing that was ordered. Some test results such as Urine Cultures, Blood Cultures, and other cultures if ordered will not be finalized for 24-48 hours. If you do not have a Primary Care Provider please call the medical records department at [phone] ext [phone] to obtain a copy of your results or you may sign into our patient portal to obtain these results by visiting us @ [email or web address] and completing the following steps: 1. Click on the Patient Portal link 2. Click the Patient Self Enrollment Link to complete the enrollment form and entering your 3. Once the enrollment form is completed you will receive an email with a temporary ID and password at the email address you provided. 4. Next choose a user name and password. Your user name must be at least 4 characters long and your password must be at least 4 characters long. 5. Choose a security question from the list and provide your answer to the question. If you already have signed into the Health Portal you may access your Health Care Information 11/03 by the following steps: 1. Login to our website @ [email or web address] 2. Enter your original user name and password. FAQS The [facility] Health Portal is an online tool that contains your Lab Results, Radiology Reports, Visit History, Discharge Instructions and Health Summary Lab and Radiology Results will not be available for 72 hours on the portal. The Portal is a secure site, passwords are encryted and URLs are re-written so they cannot be copied and pasted. You and authorized family members are the only ones who can access your Portal. Also there is a timeout feature that protects your information if you leave the Portal page open. If you have technical difficulty please use the Contact Us link on the page this will allow you to submit any questions you have regarding the Portal or you may contact the Medical Record Department at [phone] ext [phone].
[2023-02-09 21:42] LABS: ALBUMIN 4.9 g/dL (3.5-5.0); ALKALINE PHOSPHATASE 136 U/L (38-126); ANION GAP 26.3 MEQ/L (5-15); BLOOD UREA NITROGEN 39 mg/dL (9-20); CHLORIDE 83 mmol/L (98-107); Calcium 10.5 mg/dL (8.4-10.2); Carbon Dioxide 33 mmol/L (22-30); Creatinine 1 5.56 mg/dL (0.66-1.25); EST GLOMERULAR FILTRATION RATE 12.3 ML/MIN; ETHYL ALCOHOL < 10 mg/dL (0-10); Glucose 193 mg/dL (74-106); MAGNESIUM 2.6 mg/dL (1.6-2.3); Potassium 4.6 mmol/L (3.5-5.1); SGOT/AST 39 U/L (17-59); SGPT/ALT 24 U/L (0-50); SODIUM 137 mmol/L (137-145); Total Protein 9.1 g/dL (6.3-8.2)
[2023-02-09 23:17] VITALS: BP 165/102; PULSE 107; O2SAT 96
== END 2023-02-09 23:43 | disposition home or self-care (01) ==
LOC: ED 20:51
DX: R11.2 Nausea with vomiting, unspecified (principal); E10.22 Type 1 diabetes mellitus with diabetic chronic kidney disease; I12.0 Hypertensive chronic kidney disease with stage 5 chronic kidney disease or end stage renal disease; N18.6 End stage renal disease; Z99.2 Dependence on renal dialysis; E10.65 Type 1 diabetes mellitus with hyperglycemia; E78.5 Hyperlipidemia, unspecified; Z79.899 Other long term (current) drug therapy; Z28.310 Unvaccinated for COVID-19
CPT/HCPCS: 36000; 36415; 80053; 82077; 82947; 83605; 83735; 85025; 93005; 93041; 96360; 96374; 99284; 99291; J2405